=== PATIENT | female | born 1975 ===

== ENCOUNTER → 2020-03-06 08:34 | Outpatient (BNVA) | payer MEDICARE, SELFPAY | PROVIDERS: PCP Internal Medicine; Visit Provider Anesthesiology | DX: M46.1 Sacroiliitis, not elsewhere classified (principal); M51.36 Other intervertebral disc degeneration, lumbar region; M47.27 Other spondylosis with radiculopathy, lumbosacral region; E66.01 Morbid (severe) obesity due to excess calories; R10.9 Unspecified abdominal pain; R10.2 Pelvic and perineal pain; G89.4 Chronic pain syndrome | CPT/HCPCS: 99202 ==

== ENCOUNTER → 2020-05-19 16:01 | Outpatient (BNVA) | payer MEDICARE, SELFPAY | PROVIDERS: PCP Internal Medicine; Visit Provider Anesthesiology | DX: M46.1 Sacroiliitis, not elsewhere classified (principal); M51.36 Other intervertebral disc degeneration, lumbar region; M47.27 Other spondylosis with radiculopathy, lumbosacral region; E66.01 Morbid (severe) obesity due to excess calories; R10.9 Unspecified abdominal pain; R10.2 Pelvic and perineal pain; G89.4 Chronic pain syndrome | CPT/HCPCS: 99212 ==

== ENCOUNTER → 2020-06-12 09:41 | Outpatient (BNVA) | payer MEDICARE, SELFPAY | PROVIDERS: PCP Internal Medicine; Visit Provider Anesthesiology | DX: G89.4 Chronic pain syndrome (principal); R10.2 Pelvic and perineal pain; R10.9 Unspecified abdominal pain; E66.01 Morbid (severe) obesity due to excess calories; M47.27 Other spondylosis with radiculopathy, lumbosacral region; M51.36 Other intervertebral disc degeneration, lumbar region; M46.1 Sacroiliitis, not elsewhere classified | CPT/HCPCS: 99212 ==

== ENCOUNTER → 2020-06-26 09:31 | Outpatient (BNVA) | payer MEDICARE, SELFPAY | PROVIDERS: PCP Internal Medicine; Visit Provider Anesthesiology | DX: G89.4 Chronic pain syndrome (principal); R10.2 Pelvic and perineal pain; G89.29 Other chronic pain; R10.9 Unspecified abdominal pain; E66.01 Morbid (severe) obesity due to excess calories; M47.27 Other spondylosis with radiculopathy, lumbosacral region; M51.36 Other intervertebral disc degeneration, lumbar region; M46.1 Sacroiliitis, not elsewhere classified | CPT/HCPCS: 99212 ==

== ENCOUNTER 2022-02-16 20:31 | Outpatient (REF) | payer MEDICARE, SELFPAY ==
[2022-02-16 20:40] LABS: MANUAL DIFF FLAG NO
[2022-02-16 20:49] LABS: Basophils Percent Auto 0.5 % (0-2); Eosinophils Absolute Auto 0.2 X10*3/uL (0.0-0.4); Eosinophils Percent Auto 2.7 % (0-4); Hematocrit 35.4 % (37.0-47.0); Hemoglobin 11.7 g/dl (12.0-16.0); Imm Gran Abs Auto 0.03 X10*3/uL (0.00-0.03); Imm Gran Pct Auto 0.4 % (0.0-0.4); Lymphocytes Absolute Auto 2.8 X10*3/uL (1.2-4.9); Lymphocytes Percent Auto 37.6 % (20-40); Mean Corpuscular HGB Conc 33.1 g/dl (31.0-35.0); Mean Corpuscular Hemoglobin 27.3 pg (27.0-33.0); Mean Corpuscular Volume 82.5 fL (80.0-98.0); Mean Platelet Volume 10.1 fL (9.4-12.3); Monocytes Absolute Auto 0.5 X10*3/uL (0.1-1.2); Monocytes Percent Auto 6.3 % (2-11); Neutrophils Absolute Auto 3.9 x10*3/uL (2.0-8.3); Neutrophils Percent Auto 52.5 % (45-73); Platelet Count 355 X10*3/uL (160-400); Red Blood Count 4.29 X10*6/uL (4.20-5.50); Red Cell Distribution Width 12.2 % (11.0-16.0); White Blood Count 7.4 X10*3/uL (4.8-10.8)
[2022-02-16 21:58] LABS: Alanine Aminotransferase 13 U/L (0-31); Albumin Level 4.1 g/dL (3.5-5.0); Alkaline Phosphatase 102 U/L (39-117); Anion Gap 18 (12-20); Aspartate Amino Transferase 18 U/L (5-31); Bilirubin Total 0.6 mg/dL (0.0-1.0); Blood Urea Nitrogen 16 mg/dL (9-16); Calcium 9.4 mg/dL (8.4-10.2); Carbon Dioxide 24 mmol/L (22-29); Chloride 97 mmol/L (96-108); Estimated Glomerular Filt Rate > 60; Glucose Random 170 mg/dL (60-115); Magnesium 1.4 mg/dL (1.6-2.6); Phosphorus 4.7 mg/dL (2.7-4.5); Sodium 135 mmol/L (135-145); Total Protein 7.5 g/dL (6.5-8.0); Triglycerides 360 mg/dL
== END 2022-02-16 20:32 | disposition home or self-care (01) ==
LOC: HO.LNP 20:31
PROVIDERS: Visit Provider Internal Medicine
DX: K56.609 Unspecified intestinal obstruction, unspecified as to partial versus complete obstruction (principal); E11.9 Type 2 diabetes mellitus without complications
CPT/HCPCS: 80053; 83735; 84100; 84478; 85025

== ENCOUNTER 2022-08-30 16:18 | Emergency (ER) | payer MEDICARE, SELFPAY ==
--- NOTE | ~2022-08-30 | CT_ITS ---
EXAMINATION: CT ABDOMEN AND PELVIS WITHOUT CONTRAST CLINICAL INFORMATION: Right flank pain COMPARISON: CT abdomen and pelvis without contrast 09/08/2013 TECHNIQUE: Multidetector volumetric imaging was performed from the superior aspect of the liver through the pubic symphysis. Sagittal and coronal reformatted images were obtained on the technologist's workstation. This CT examination was performed using dose optimization techniques as appropriate, variously including the following: *Automated exposure control *Adjustment of mA and/or kV according to patient size (this includes techniques or standardized protocols for targeted exams where dose is matched to indication/reason for exam; i.e. extremities or head) *Use of iterative reconstruction technique DLP: 9080 mGy-cm FINDINGS: LUNG BASES: There is mild atelectatic changes right lung base. Heart size is normal. A LIVER, GALLBLADDER, AND BILIARY TREE: The liver is normal in size, shape, and attenuation. No focal hepatic lesion or biliary ductal dilatation is present. The gallbladder has been surgically removed. PANCREAS: Unremarkable. SPLEEN: Unremarkable. ADRENAL GLANDS: Unremarkable. KIDNEYS AND URETERS: The kidneys are normal in size, shape, and attenuation. No hydronephrosis, hydroureter, or calculi seen. No perinephric stranding. There is 2 mm radiopaque calculi suspected in the right proximal ureter, new since 09/08/2013. It is best visualized on axial image 56/3. There are adjacent vascular calcifications or phleboliths which are stable to previous study. BLADDER: Unremarkable. GASTROINTESTINAL TRACT: There is scattered stool and gas seen in the colon without distention. The small bowel loops are normal caliber. Postsurgical sutures are seen in the left lower pelvis likely involving sigmoid colon. No free fluid or free air seen. ABDOMINAL WALL: There is anterior abdominal wall hernia repair with mesh in place in the mid segment around the umbilicus. Dense scarring is seen in the left lower quadrant where probable colostomy was present. LYMPH NODES: No abnormal size pelvic or inguinal lymph nodes seen. VASCULAR: Unremarkable. PELVIC VISCERA: There are several small calcifications in the right adnexa. The uterus is surgically absent. No adnexal mass or free fluid seen. OSSEOUS STRUCTURES: Degenerative disc changes with vacuum disc phenomena L5/S1 disc level is noted. There is mild ventral spondylosis lower dorsal spine. CT/CT abdomen pelvis wo IV con IMPRESSION: 1. Suspect 2 mm radiopaque calculi in the right proximal ureter without hydroureteronephrosis. 2. Postsurgical changes in the left lower quadrant likely involving sigmoid colon. No obstruction seen. 3. Anterior abdominal wall hernia repair with mesh in place. Fleischner guidelines were followed.
[2022-08-30 18:24] VITALS: BP 193/101; PULSE 88; RESP 16; TEMP 36.2; O2SAT 98; BMI 51.8
--- NOTE | 2022-08-30 18:24 | ED.GENADULT ---
HPI - General Adult General Chief complaint: Abdominal Pain Stated complaint: R side flank pain, vomiting Time Seen by Provider: 08/31/22 01:33 Source: patient Mode of arrival: ambulatory Limitations: no limitations History of Present Illness HPI narrative: This is a 1-xlgs[age]lpt-female, with a hx of abdominal pain on TPN for short gut syndrome, sacroiliitis, spondylosis, with complaints of right flank pain x 3 days. Endorsing nausea, vomiting. Unable to discern urinary symptoms due to neurogenic bladder. Patient with right sided flank pain and nausea for 3 days. patient has been taking her pain medication and nausea medicine without relief. Onset (ago): day(s) Related Data Home Medications Medication Instructions Recorded Confirmed fluticasone furoate 100 1 inh inhalation DAILY 03/06/20 mcg-vilanterol 25 mcg/dose inhalation powder (Breo Ellipta) albuterol sulfate 1.25 mg/3 mL mg inhalation Q6-8H PRN 05/19/20 solution for nebulization bisacodyl 5 mg tablet,delayed 5 mg PO DAILY 05/19/20 release diphenhydramine HCl 50 mg capsule 50 mg PO BEDTIME 05/19/20 insulin aspart U-100 100 unit/mL unit subcut 05/19/20 (3 mL) subcutaneous pen insulin glargine 100 unit/mL (3 25 unit subcut BEDTIME 05/19/20 mL) subcutaneous pen lancets 28 gauge #100 ea 05/19/20 lorazepam 0.5 mg tablet 0.5 mg PO TID PRN 05/19/20 ondansetron 4 mg disintegrating 0 mg PO 05/19/20 tablet potassium chloride 8 mEq 8 meq PO DAILY 05/19/20 tablet,extended release scopolamine base 1 mg over 3 days 1 patch topical Q3D 05/19/20 transdermal patch simvastatin 40 mg tablet mg PO BEDTIME 05/19/20 Previous Rx's Medication Instructions Recorded duloxetine 20 mg capsule,delayed 20 mg PO DAILY #30 caps 03/04/20 release (Cymbalta) diclofenac sodium 1 % topical gel 2 g topical BID PRN pain #100 grams 03/06/20 Allergies Allergy/AdvReac Type Severity Reaction Status Date / Time fentanyl [FENTANYL] Allergy Severe LETHARGY Verified 08/30/22 18:24 iodine [IODINE] Allergy Severe HIVES Verified 08/30/22 18:24 latex [LATEX] Allergy Severe HIVES Verified 08/30/22 18:24 levofloxacin [From LEVAQUIN] Allergy Severe MOUTH Verified 08/30/22 18:24 SWELLING Penicillins [PENICILLINS] Allergy Severe SWELLING, Verified 08/30/22 18:24 ITCHY shellfish derived Allergy Severe SWELLING Verified 08/30/22 18:24 acetaminophen [From TYLENOL] Allergy Intermediate HIVES Verified 08/30/22 18:24 doxycycline [DOXYCYCLINE] Allergy Intermediate SWELLING Verified 08/30/22 18:24 nicotine [NICOTINE] Allergy Intermediate SWELLING Verified 08/30/22 18:24 pregabalin [From LYRICA] Allergy Intermediate LETHARGY, Verified 08/30/22 18:24 LOW BP, SWELLING amoxicillin Allergy Unknown unknown Verified 08/30/22 18:24 ceftriaxone Allergy Unknown unknown Verified 08/30/22 18:24 clarithromycin Allergy Unknown unknown Verified 08/30/22 18:24 [Omeclamox-Juan A] esomeprazole [Nexium] Allergy Unknown unknown Verified 08/30/22 18:24 famotidine [FAMOTIDINE] Allergy Unknown UNKNOWN, Verified 08/30/22 18:24 anaphylaxis Iodinated Contrast Media Allergy Unknown UNKNOWN Verified 08/30/22 18:24 [IV DYE, IODINE CONTAINING CONTRAST ] metoclopramide [Reglan] Allergy Unknown unknown Verified 08/30/22 18:24 morphine [MORPHINE] Allergy Unknown ANGIOEDEMA Verified 08/30/22 18:24 omeprazole [Omeclamox-Juan A] Allergy Unknown unknown Verified 08/30/22 18:24 ondansetron [Zofran] Allergy Unknown unknown Verified 08/30/22 18:24 penicillin V Allergy Unknown unknown Verified 08/30/22 18:24 From BUSPAR Allergy Intermediate RASH Uncoded 08/30/22 18:24 From ZOFRAN Allergy Intermediate HIVES Uncoded 08/30/22 18:24 Compazine Allergy Unknown unknown Uncoded 08/30/22 18:24 From Nexium Allergy Unknown UNKNOWN Uncoded 08/30/22 18:24 IV contrast dye Allergy Unknown unknown Uncoded 08/30/22 18:24 latex Allergy Unknown unknown Uncoded 08/30/22 18:24 From COMPAZINE AdvReac Intermediate ANXIETY Uncoded 08/30/22 18:24 From REGLAN AdvReac Intermediate ANXIETY Uncoded 08/30/22 18:24 Review of Systems Review of Systems: Yes all other systems are reviewed and are negative [facility] Past Medical History Medical History Chronic abdominal pain Chronic pain syndrome Chronic pelvic pain in female Disc degeneration, lumbar Morbid obesity Sacroiliitis Spondylosis of lumbosacral spine with radiculopathy Social History Social History Advance Directives: No Advance Directives Information Provided: Yes Physical Exam ED Vital Signs: Vital Signs - 24 hr 08/30/22 18:24 08/31/22 02:39 Temperature 97.2 F 97.6 F Pulse Rate 88 88 Respiratory Rate 16 18 Blood Pressure 193/101 H 171/94 H Pulse Oximetry 98 99 Oxygen Delivery Method Room Air Room Air BMI result Body Mass Index 51.8 Const Other: obese female rocking in bed Nutritional Appearance: obese Orientation/consciousness: oriented to person and patient oriented x3 Limitations: no limitations HENMT Head: Yes normal to inspection Ears: external ears normal General nose exam: Normal external nose present Mouth: Normal oral and palatal mucosa present and oropharynx normal Throat: Yes posterior oropharynx normal Eyes General: appearance normal, both eyes and all related structures Neck Neck: Yes normal visual inspection Chest Other: Port in place in left chest Resp Auscultation: clear to auscultation bilaterally Cardio Jugular venous distension: no JVD Rate: regular rate Rhythm: regular rhythm Heart sounds: S1 normal heart sound present and S2 normal heart sound present GI Inspection: Yes normal to inspection Palpation (GI): Soft to palpation, nontender and No hepatosplenomegaly present Auscultation: normal bowel sounds General: Yes no CVA tenderness Back/Spine/Pelvis Back: no CVA tenderness Skin General skin exam: no rashes or lesions noted Neuro General: oriented to person and patient oriented x3 Cranial nerves: Yes CN's II-XII intact bilaterally Motor exam (neuro): 5/5 motor strength present throughout Extrem General: Yes normal to inspection Psych Appearance: grossly normal Course Course Course Narrative: This is an RME: Additional HPI, ROS, PE not included below will be deferred to primary provider. This is a 19-vyfr-gtq-female, with a hx of abdominal pain on TPN for short gut syndrome, sacroiliitis, spondylosis, with complaints of right flank pain x 3 days. Endorsing nausea, vomiting. Unable to discern urinary symptoms due to neurogenic bladder. Plan: Labs, UA, CT abd & pelvis Reevaluation(s) Reevaluation #1: patient with no UTI, no hydro, there is a suggestion of a small stone on the right but there is no definitive hydronephrosis, hypomagnesemia treated Time: 03:13 Medications Administered Generic Name Dose Route Start Last Admin Trade Name Freq PRN Reason Stop Dose Admin Magnesium Sulfate 2 gm in 50 mls @ 25 mls/hr 08/31/22 01:45 08/31/22 02:43 Magnesium Sulfate/H2o IV 08/31/22 03:44 25 mls/hr ONCE ONE Administration Discontinued Medications Generic Name Dose Route Start Last Admin Trade Name Freq PRN Reason Stop Dose Admin Diphenhydramine HCl 25 mg 08/31/22 01:45 08/31/22 02:43 Diphenhydramine Hcl 50 Mg/Ml Vial IVPUSH 08/31/22 01:46 25 mg ONCE ONE Administration Hydromorphone HCl 2 mg 08/31/22 01:45 08/31/22 02:42 Hydromorphone Hcl 2 Mg/Ml Vial IVPUSH 08/31/22 01:46 2 mg ONCE ONE Administration Protocol Ondansetron HCl 4 mg 08/31/22 01:45 08/31/22 02:42 Ondansetron Hcl 4 Mg/2 Ml Vial IVPUSH 08/31/22 01:46 4 mg ONCE ONE Administration Medical Decision Making Differential Diagnosis Differential Diagnoses: The differential diagnosis associated with the presentation includes (renal colic, UTI, pyelonephritis were all considered) Admission/Observation Consideration of admission/observation: Escalation of care including admission/observation considered (Upon arrival this patient with right flank pain was considered for admission) Lab Data MDM Lab Attestation statement: I reviewed the patient's lab results. (no elevation of WBC, slight RBCs in urine, normal LFTs) 08/31/22 00:45 08/31/22 00:45 Labs: Lab Results 08/30/22 08/31/22 08/31/22 Range/Units 19:21 00:45 00:45 WBC 5.6 (4.8-10.8) X10*3/uL RBC 4.86 (4.20-5.50) X10*6/uL Hgb 12.3 (12.0-16.0) g/dl Hct 37.8 (37.0-47.0) % MCV 77.8 L (80.0-98.0) fL MCH 25.3 L (27.0-33.0) pg MCHC 32.5 (31.0-35.0) g/dl RDW 14.2 (11.0-16.0) % Plt Count 335 (160-400) X10*3/uL MPV 9.5 (9.4-12.3) fL Immature Gran % (Auto) 0.4 (0.0-0.4) % Neut % (Auto) 50.5 (45-73) % Lymph % (Auto) 37.6 (20-40) % [place] % (Auto) 6.7 (2-11) % Eos % (Auto) 4.3 H (0-4) % Baso % (Auto) 0.5 (0-2) % Lymph # (Auto) 2.1 (1.2-4.9) X10*3/uL [place] # (Auto) 0.4 (0.1-1.2) X10*3/uL Eos # (Auto) 0.2 (0.0-0.4) X10*3/uL Baso # (Auto) 0.0 (0.0-0.2) X10*3/uL Abs Immat Gran (auto) 0.02 (0.00-0.03) X10*3/uL Absolute Neuts (auto) 2.8 (2.0-8.3) x10*3/uL Absolute Nucleated RBC 0.000 (0.0-0.012) X10*3/uL Nucleated RBC % (auto) 0.0 (0.0-0.2) /100WBC Sodium 135 (135-145) mmol/L Potassium 3.7 (3.3-5.1) mmol/L Chloride 99 (96-108) mmol/L Carbon Dioxide 26 (22-29) mmol/L Anion Gap 14 (12-20) BUN 10 (9-16) mg/dL Creatinine 0.76 (0.5-1.4) mg/dL Estim Creat Clear Calc 112.0 Estimated GFR > 60 Random Glucose 265 H (60-115) mg/dL Calcium 10.1 D (8.4-10.2) mg/dL Magnesium 1.3 L* (1.6-2.6) mg/dL Total Bilirubin 0.8 (0.0-1.0) mg/dL Direct Bilirubin 0.2 (0.0-0.5) mg/dL AST 15 (5-31) U/L ALT 13 (0-31) U/L Alkaline Phosphatase 113 (39-117) U/L Total Protein 7.6 (6.5-8.0) g/dL Albumin 4.0 (3.5-5.0) g/dL Lipase 10 (8-78) U/L Urine Color Yellow Urine Appearance Clear Urine pH 6.0 (5.0-9.0) Ur Specific [place] 1.025 (1.005-1.025) Urine Protein Negative (Neg-Trace) mg/dL Urine Glucose (UA) >=1000 H (Negative) mg/dL Urine Ketones Negative (Negative) mg/dL Urine Blood Negative (Negative) Urine Nitrite Negative (Negative) Ur Leukocyte Esterase Negative (Negative) Urine RBC 6-10 H (0-2) /HPF Urine WBC 0-5 (0-5) /HPF Ur Squamous Epith Cells 6-10 (0-2) /HPF Urine Bacteria 1+ (None Seen) Hyaline Casts 0-2 (0-2) /LPF Urine Yeast Present Independent Interpretation I performed an independent interpretation of an: CT Scan (no hydronephrosis seen, cholecystecytomy) Radiology Impression Discussion of test interpretation with radiology: I have reviewed the radiologist's reading. (liver cyst, renal cyst and a question of right stone) External Record Review External record reviewed: Outpatient record Prescription Management I considered prescription management with: Pain Medication (narcotic pain medication was considered but the patient has narcotics at home) and Antibiotic (antibiotics was considered but the patient had no evidence of UTI or pyelonephritis) Chronic Conditions Patient?s care impacted by: Other (mulitple illnesses) Discharge Plan Discharge Clinical Impression: Chronic abdominal pain, Chronic pain syndrome, Renal colic, Hypomagnesemia Patient Disposition: Home, Self-Care Instructions: Renal Colic (ED), Chronic Pain (ED) Additional Instructions: continue taking your pain medication as instructed Prescriptions: No Action duloxetine [Cymbalta] 20 mg capsule,delayed release(DR/EC) 20 mg PO DAILY Qty: 30 4RF diclofenac sodium 1 % gel 2 g topical BID PRN (Reason: pain) Qty: 100 3RF Referrals: Chaparrita Pizano DO [Primary Care Provider] - 3 days
--- NOTE | 2022-08-30 19:27 | MHC.EDTECH ---
PATIENT URINE SAMPLE COLLECTED AND SENT TO LAB ,PATIENT WANTS HER LABS TO BE DRAWN FROM HER PORT .
[2022-08-30 19:44] LABS: Appearance Urine Clear; Color Urine Yellow; Glucose Urine UA >=1000 mg/dL (Negative); Leukocyte Esterase Urine Negative (Negative); Nitrite Urine Negative (Negative); Specific Gravity - Urine 1.025 (1.005-1.025); UMIC TRIGGER UACC YES; Urine Blood Negative (Negative); Urine Ketones Negative (Negative); Urine Protein Negative (Neg-Trace)
[2022-08-30 19:58] LABS: Bacteria Urine 1+ (None Seen); Hyaline Casts Urine 0-2 /LPF (0-2); WBC Urine 0-5 /HPF (0-5)
--- OUTSIDE RECORDS SUMMARY | 2022-08-31 00:55 | XMS_ITS | Continuity of Care Document ---
Author Name Unknown Organization [facility] ter Address [address] [place] [id number]- Care Team Providers Care Chemical Worker Name Role Phone Jerica DOChaparrita Primary Care Physician ( [phone] Encounter [facility] [place]s): 07/25/20 - 08/01/[address] [address]- Discharge Disposition: A-Transfer VNA/Home Health Attending Physician: Rach SHERIFF, Bety Galvez Admitting Physician: Alberto Austin MD Referring Physician: Not on Staff, Referring MD Allergies, Adverse Reactions, Alerts Substance Reaction Severity Status doxycycline mouth swelling Active ceftriaxone hives Active penicillin throat swelling Rash Persistent Severe Active famotidine vomiting Active morphine 1, 2, 3 hives Active iodine topical swelling itching Active Zofran 4 can only be given w/ benadryl hives Active Pepcid vomitng Active Levaquin tingling in mouth, rash Acti ve Compazine shortness of breath Active Tylenol hives Active Reglan severe restless legs Active Adhesive Bandage skin excoriation hives Active Contrast Dye hives itchy throat itchy Persistent Mild Active Latex vag rash Active Seafood Anaphylactic shock d ue to adverse food reaction Severe Active Nexium diarrhea, vomitting Active Nicotine Patch ana cardia Active Lyrica Angioedema Active Lantiseptic Skin Protectant Active 1plizzie SHERIFF, tolerates with diphenhydramine 2Tolerates hydromorphone 3Tolerates Oxycontin (oxycodone extended release) as part of home regimen as shared during June 2014 admission. 4patient tolerated zofran on 05/25/2013 Immunizations Given and Recorded Vaccine Date Status Refusal Reason influenza virus vaccine, inactivated 11/11/17 Give n influenza virus vaccine, inactivated 03/09/15 Give n influenza virus vaccine, inactivated 10/31/11 Give n tetanus/diphtheria/pertussis, acel(Tdap) 06/10/17 Given pneumococcal 13-valent vaccine 01/20/15 Given pneumococcal 23-valent vaccine 10/31/11 Given Pneumococcal Poly (PPV23) (oldterm) 02/02/07 Given Influenza Virus Vaccine (oldterm) 1 02/02/07 Given 1Admin Note: manufactured by [employer] Medications albuterol 0.042% inhalation solution 3 mL = 1.25 mg, Neb, 4 times a day, PRN Wheezing/Shortness of Breath Start Date: 04/04/20 Status: Ordered albuterol CFC free 90 mcg/inh inhalation aerosol 2, puffs, Inhalation, 4 times a day, PRN, # 75 Gm, Refills 0, Tot. Refills 0, Maintenance, 12/02/1919:00:05 EDT, Aerosol, Print Requisition Start Date: 12/01/18 Status: Ordered bisacodyl 5 mg oral delayed release tablet 1 tablet = 5 mg, By Mouth, Daily, Maintenance, 10/04/18 16:16:38 EDT, EC Tablet Start Date: 10/04/18 Status: Ordered diclofenac 1% topical gel = 2 Gm, Topically, 2 times a day, PRN Pain Start Date: 04/04/20 Status: Ordered Dilaudid Inj 0.5 mg, Injection, IV Push Slowly, Every 4 hours, PRN for Pain , Severe, Routine, 07/25/20 22:22:00EDT Start Date: 07/25/20 Stop Date: 08/02/20 Status: Discontinued Insulin Glargine Inj 0.3 mL = 30 units, Subcutaneous Injection, Daily at bedtime, 0 Refills, Maintenance, 07/31/20 12:52:00 EDT, Injection, Partial fill upon patient request if the prescription is for a schedule II opioid drug. Start Date: 07/31/20 Status: Ordered LORazepam 0.5 mg oral tablet 1 tablet = 0.5 mg, By Mouth, Daily at bedtime, 0 Refills, Maintenance, 07/27/20 16:47:00 EDT, Tablet, Partial fill upon patient request if the prescription is for a schedule II opioid drug. Start Date: 07/27/20 Status: Ordered losartan 50 mg oral tablet 50 mg, 1, tablet, By Mouth, Daily in AM, # 30 tablet, Refills 0, Maintenance, 10/04/18 9:33:08 EDT Start Date: 10/04/18 Status: Ordered losartan 50 mg oral tablet 50 mg, Tablet, By Mouth, 08/01/20 9:00:00 EDT Start Date: 08/01/20 Stop Date: 08/01/20 Status: Completed naloxone 4 mg/0.1 mL nasal spray = 4 mg, Nares, Both, Once, # 2 each, 0 Refills, Soft Stop, 04/09/20 13:16:00 EST, [facility], Partial fill upon patient request if the prescription is for a schedule II opioid drug., 154, cm, 04/09/20 7:55:00 EST, Height, 132.9, kg, 03/17... Start Date: 04/09/20 Status: Ordered NovoLOG FlexPen 100 units/mL subcutaneous solution See Instructions, Subcutaneous Injection, Use as per sliding scale, 5 Refills, Maintenance, 12/22/18 7:07:37 EST Start Date: 12/22/18 Stop Date: 01/21/19 Status: Ordered ondansetron 4 mg oral tablet 1 tablet = 4 mg, By Mouth, Every 8 hours, PRN Nausea & Vomiting, for 14 days, # 42 tablet, 0 Refills, Acute 08/14/20 14:34:00 EDT, 07/31/20 14:34:00 EDT, Tablet, [facility], Partialfill upon patient request if the prescription is for a... Start Date: 07/31/20 Stop Date: 08/14/20 Status: Ordered ondansetron 4 mg oral tablet, disintegrating = 4 mg, By Mouth, Every 6 hours, PRN Nausea & Vomiting, # 90 tablet, 0 Refills, Maintenance, 04/02/20 9:29:00 EST, Tablet, [facility], Partial fill upon patient request if the prescription is for a schedule II opioid drug., 154.94, cm, 0... Start Date: 04/02/20 Status: Ordered oxyCODONE 10 mg oral tablet See Instructions, 1 tablet By Mouth 5 times per day for 7 days, per pain services recommedations, #35 tablet, 0 Refills, Maintenance, 06/20/20 8:49:00 EDT, Tablet, [id number], Partial fill upon patient request if the prescription is for a seema... Start Date: 06/20/20 Status: Ordered oxyCODONE 20 mg oral tablet, extended release 20 mg, 1, tablet, By Mouth, Every 12 hours, Patient has 8 tablets from before, new prescription for5 days till she goes to the pain clinic, # 10 tablet, Refills 0, Tot. Refills 0, Maintenance, 05/01/20 9:37:00 EDT, Route to Pharmacy Electronically, B... Start Date: 05/01/20 Stop Date: 05/06/20 Status: Ordered propranolol 120 mg oral capsule, extended release 1 capsule = 120 mg, By Mouth, Daily at bedtime, # 30 capsule, 5 Refills, Maintenance, 01/17/18 9:48:32 EST, CR Capsule, Increasing dose. Start Date: 01/17/18 Stop Date: 07/16/18 Status: Ordered propranolol 60 mg oral capsule, extended release 120 mg, CR Capsule, By Mouth, 07/31/20 21:00:00 EDT Start Date: 07/31/20 Stop Date: 07/31/20 Status: Completed Senna Plus 50 mg-8.6 mg oral tablet 2 tablet, By Mouth, Daily at bedtime, Maintenance, 10/04/18 16:17:29 EDT, Tablet Start Date: 10/04/18 Status: Ordered simvastatin 40 mg oral tablet 40 mg, 1, tablet, By Mouth, Daily at bedtime, # 90 tablet, Refills 1, Tot. Refills 1, Maintenance, 08/30/17 8:21:42 EDT, Route to Pharmacy Electronically, [id number], [facility] #[id number] Start Date: 08/30/17 Status: Ordered Tums 500 mg oral tablet, chewable 500 mg, 1, tablet, Chew, Every 4 hours, PRN, # 180 tablet, Refills 0, Tot. Refills 0, Maintenance, Dyspepsia, 06/21/18 11:05:15 EDT, Route to Pharmacy Electronically, [id number], [facility] Start Date: 06/21/18 Status: Ordered Vancomycin 3, mL, IV Catheter Clearance, Every 24 hours, Maintenance, 07/31/20 12:52:00 EDT Start Date: 07/31/20 Status: Ordered vancomycin 2 g/250 mL-NaCl 0.9% intravenous solution = 2 Gm, IV Infusion, Every 12 hours, until 08/08/20 please, # 17 each, 0 Refills, Acute 08/08/20 22:00:00 EDT, 07/31/20 12:54:00 EDT, Partial fill upon patient request if the prescription is for a schedule II opioid drug. Start Date: 07/31/20 Stop Date: 08/08/20 Status: Ordered Vitamin D3 2000 intl units oral capsule 1 capsule = 2,000 International_Units, By Mouth, 3 times a day, 0 Refills, Maintenance, 02/22/18 7:05:50 EST Start Date: 02/22/18 Status: Ordered Problem List Condition Effective Dates Status Health Status Inform ant Abdominal pain(Confirmed) Active Trigger point of abdomen(Confirmed) Active Abscess(Confirmed) Active ADJUSTMENT REACTION WITH PRO LONGED DEPRESSIVE REACTION(Confirmed) 02/03/07 Active [facility] Senior Level Patient(Confirmed) Active ASTHMA(Confirmed) 02/03/07 Active Bipolar disorder(Confirmed) Active Morbid obesity with BMI of 5 0.0-59.9, adult(Confirmed) Active Status post total hysterecto my 03/22/06, pathology was benign. 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) Active ESSENTIAL HYPERTENSION(Confirmed) Active Fibromyalgia(Confirmed) Active 7, para 5(Confirmed) Active Medically complex patient(Confirmed) Active Hyperlipidemia(Confirmed) Active Low back pain(Confirmed) Active MIGRAINE(Confirmed) 02/03/07 Active Neurogenic bladder(Confirmed) Active AURELIO (obstructive sleep apnea)(Confirmed) Active Optic neuritis, right(Confirmed) Active Partial small bowel obstruction(Confirmed) Active Pelvic mass in female(Confirmed) Active Spinal stenosis(Confirmed) Active Follow-up examination after gynecological surgery(Confirmed) Active DM (diabetes mellitus), type 2, uncontrolled(Confirmed) Active Results Orders for Microbiology Reports Name Date Blood Culture 07/28/20 Blood Culture #2 07/28/20 Blood Culture 07/27/20 Blood Culture #2 07/27/20 Blood Culture 07/26/20 Blood Culture 07/25/20 Blood Culture #2 07/25/20 Microbiology Reports TEST:Blood Culture STATUS:Unauthenticated BODY SITE: SOURCE:Blood COLLECTED DATE/TIME:07/28/20 3:18 AM Blood Culture SPECIMEN DESCRIPTION : BLOOD PORT SPECIAL REQUESTS : NONE CULTURE : NO GROWTH 4 DAYS REPORT STATUS : PRELIMINARY REPORT TEST:Blood Culture, Second Order STATUS:Unauthenticated BODY SITE: SOURCE:Blood COLLECTED DATE/TIME:07/28/20 3:13 AM Blood Culture, Second Order SPECIMEN DESCRIPTION : BLOOD NO SITE SPECIAL REQUESTS : NONE CULTURE : NO GROWTH 4 DAYS REPORT STATUS : PRELIMINARY REPORT TEST:Blood Culture, Second Order STATUS:Auth (Verified) BODY SITE: SOURCE:Blood COLLECTED DATE/TIME:07/27/20 4:45 PM Blood Culture, Second Order SPECIMEN DESCRIPTION : BLOOD NO SITE SPECIAL REQUESTS : NONE CULTURE : NO GROWTH 5 DAYS. REPORT STATUS : FINAL 08/01/2020 TEST:Blood Culture STATUS:Auth (Verified) BODY SITE: SOURCE:Blood COLLECTED DATE/TIME:07/27/20 3:06 PM Blood Culture SPECIMEN DESCRIPTION : BLOOD LT ARM SPECIAL REQUESTS : NONE CULTURE : NO GROWTH 5 DAYS. REPORT STATUS : FINAL 08/01/2020 TEST:Blood Culture STATUS:Auth (Verified) BODY SITE: SOURCE:Blood COLLECTED DATE/TIME:07/26/20 11:40 AM Blood Culture SPECIMEN DESCRIPTION : BLOOD SPECIAL REQUESTS : NONE CULTURE : NO GROWTH 5 DAYS. REPORT STATUS : FINAL 07/31/2020 TEST:Blood Culture, Second Order STATUS:Auth (Verified) BODY SITE: SOURCE:Blood COLLECTED DATE/TIME:07/25/20 9:52 PM Blood Culture, Second Order SPECIMEN DESCRIPTION : BLOOD NO SITE SPECIAL REQUESTS : CRITICAL VALUE CALLED AND VERIFIED BY READBACK FOR: GRAM POSITIVE COCCI TO , [id number], 07/26/20, 23:28, 1971 CULTURE : STAPH. SPECIES, NOT STAPH. AUREUS Single isolates of Staph. species, not Staph. aureus, Micrococci, Bacillus species, Diphtheroids, Cutibacterium acnes (formerly Propionibacterium acnes) and Viridans Group Streptococci could be skin contaminants. Multiple isolates of these organisms are more likely to be significant. REPORT STATUS : FINAL 07/29/2020 ORGANISM STAPH. SPECIES, NOT STAPH. AUREUS Single isolates of Staph. species, not Staph. aureus, Micrococci, Bacillus species, Diphtheroids, Cutibacterium acnes (formerly Propionibacterium acnes) and Viridans Group Streptococci could be skin contaminants. Multiple isolates of these organisms are more likely to be significant. METHOD MIN. INHIB. CONC. (MCG/ML) CIPROFLOXACIN SUSCEPTIBLE ERYTHROMYCIN RESISTANT LEVOFLOXACIN SUSCEPTIBLE RIFAMPIN SUSCEPTIBLE TRIMETH/SULFAMETHOX SUSCEPTIBLE VANCOMYCIN SUSCEPTIBLE TEST:Blood Culture STATUS:Auth (Verified) BODY SITE: SOURCE:Blood COLLECTED DATE/TIME:07/25/20 7:05 PM Blood Culture SPECIMEN DESCRIPTION : BLOOD PORT SPECIAL REQUESTS : CRITICAL VALUE CALLED AND VERIFIED BY READBACK FOR: GRAM POSITIVE COCCI TO [id number], S2, 07/26/20 0323, BY TECH [id number] CULTURE : STAPH. SPECIES, NOT STAPH. AUREUS 1 Single isolates of Staph. species, not Staph. aureus, Micrococci, Bacillus species, Diphtheroids, Cutibacterium acnes (formerly Propionibacterium acnes) and Viridans Group Streptococci could be skin contaminants. Multiple isolates of these organisms are more likely to be significant. STAPH. SPECIES, NOT STAPH. AUREUS 2 Single isolates of Staph. species, not Staph. aureus, Micrococci, Bacillus species, Diphtheroids, Cutibacterium acnes (formerly Propionibacterium acnes) and Viridans Group Streptococci could be skin contaminants. Multiple isolates of these organisms are more likely to be significant. Staphylococcus species (not S. aureus) was identified by multi-plex PCR REPORT STATUS : FINAL 07/28/2020 ORGANISM STAPH. SPECIES, NOT STAPH. AUREUS 1 Single isolates of Staph. species, not Staph. aureus, Micrococci, Bacillus species, Diphtheroids, Cutibacterium acnes (formerly Propionibacterium acnes) and Viridans Group Streptococci could be skin contaminants. Multiple isolates of these organisms are more likely to be significant. METHOD MIN. INHIB. CONC. (MCG/ML) CIPROFLOXACIN SUSCEPTIBLE ERYTHROMYCIN RESISTANT LEVOFLOXACIN SUSCEPTIBLE RIFAMPIN SUSCEPTIBLE TRIMETH/SULFAMETHOX SUSCEPTIBLE VANCOMYCIN SUSCEPTIBLE ORGANISM STAPH. SPECIES, NOT STAPH. AUREUS 2 Single isolates of Staph. species, not Staph. aureus, Micrococci, Bacillus species, Diphtheroids, Cutibacterium acnes (formerly Propionibacterium acnes) and Viridans Group Streptococci could be skin contaminants. Multiple isolates of these organisms are more likely to be significant. METHOD MIN. INHIB. CONC. (MCG/ML) CIPROFLOXACIN SUSCEPTIBLE ERYTHROMYCIN RESISTANT LEVOFLOXACIN SUSCEPTIBLE RIFAMPIN SUSCEPTIBLE TRIMETH/SULFAMETHOX SUSCEPTIBLE VANCOMYCIN SUSCEPTIBLE Radiology Reports * Exam Date Time Procedure Performing Provider Status 07/31/20 8:36 AM Chest Portable Josef Vines; Auth (Verified) Notes: (Chest Portable) Reason For Exam: port position;Line Placement RESULT: Chest Portable Chest Portable Reason: Line Placement; port position; Clinical Question(s): Line Placement COMPARISON: 07/25/2020 chest radiograph. FINDINGS: LINES AND TUBES: Right internal jugular Port-A-Cath terminates at the lower SVC. LUNGS AND PLEURA: Clear lungs. Normal pulmonary vascularity. No pleural effusion. No pneumothorax. HEART, MEDIASTINUM AND LISA: Heart is normal in size. Normal upper mediastinal and hilar contour. BONES AND SOFT TISSUES: No acute abnormality. IMPRESSION: Right internal jugular Port-A-Cath terminates at the lower SVC. No pneumothorax. WSN: [id number] Ordering Physician: Wilman Corea Dictated By: Austen Soliz MD Dictated Date/Time: 07/31/20 12:23 p Reviewed By: Austen Soliz MD Signed By: Austen Soliz MD Signed Date/Time: 07/31/20 12:23 pm Transcribed By: DEIDRE Transcribed Date/Time: 07/31/20 12:22 pm * Exam Date Time Procedure Performing Provider Status 07/25/20 7:35 PM Chest Portable Dk Fung; Auth (Verified) Notes: (Chest Portable) Reason For Exam: Fever RESULT: Chest Portable Examination: Portable chest performed on 07/25/2020. History: Fever. Altered mental status. Findings: A frontal view of the chest is compared to a prior study dated 04/23/2020. Right approach PICC line and right Port-A-Cath are unchanged in position. The cardiac silhouette is within normal limits for size. The lungs are clear. Osteophyte formation within the thoracic spine is seen. IMPRESSION: There is no acute cardiopulmonary disease. WSN: [id number] Ordering Physician: Audrey Garcia Dictated By: Radha Wheatley MD Dictated Date/Time: 07/25/20 7:38 pm Reviewed By: Radha Wheatley MD Signed By: Radha Wheatley MD Signed Date/Time: 07/25/20 7:38 pm Transcribed By: DEIDRE Transcribed Date/Time: 07/25/20 7:37 pm Vital Signs Most recent to oldest [Reference Range]: 1 2 3 Height 156 cm (08/01/20 5:59 AM) 156 cm (07/31/20 11:00 PM) 156 cm (07/31/20 5:28 AM) Weight 134.6 kg (07/26/20 3:28 AM) Oxygen Saturation [94-100 %] 100 % (08/01/20 5:59 AM) 97 % (07/31/20 11:00 PM) 100 % (07/31/20 3:00 PM) Pulse Rate [55-90 bpm] 72 bpm (08/01/20 5:59 AM) 73 bpm (07/31/20 11:00 PM) 86 bpm (07/31/20 9:28 PM) Body Mass Index [18.5-24.99] 55.31 *>HHI* (07/26/20 3:28 AM) Blood Pressure [90-138/55-84 mm Hg] 140/72mm Hg *H* (08/01/20 9:26 AM) 106/59mm Hg (08/01/20 5:59 AM) 119/56mm Hg (07/31/20 11:00 PM) Respiratory Rate [16-30 br/min] 18 br/min (08/01/20 2:21 PM) 18 br/min (08/01/20 1:37 PM) 18 br/min (08/01/20 10:46 AM) Temperature [96.8-100.4 DegF] 97.7 DegF (08/01/20 5:59 AM) 97.7 DegF (07/31/20 11:00 PM) 98.4 DegF (07/31/20 3:00 PM) Mode of Delivery (Oxygen) Room air (08/01/20 5:59 AM) Room air (07/31/20 11:00 PM) Room air (07/31/20 3:00 PM) Blood pressure sites Arm, left (08/01/20 5:59 AM) Arm, left (07/31/20 11:00 PM) Arm, left (07/31/20 3:00 PM) Temperature Route Oral (08/01/20 5:59 AM) Oral (07/31/20 11:00 PM) Oral (07/31/20 3:00 PM) Weight Obtained Via Bed scale (07/26/20 3:28 AM) Social History Social History Type Response Smoking Status Former smoker; Other : quit 04/2015; entered on: 01/30/16 Sex Female
--- OUTSIDE RECORDS SUMMARY | 2022-08-31 00:55 | XMS_ITS | Continuity of Care Document ---
Author Name Unknown Organization [facility] ter Address [address] [place] [address]- Care Team Providers Care Open Soaper Tender Name Role Phone Chaparrita Pizano DO Primary Care Physician Encounter [facility] [place] Date(s): 04/17/21 - 10/05/[address] [address]- Attending Physician: Donald Murphy MD Admitting Physician: Donald Murphy MD Referring Physician: Donald Murphy MD Allergies, Adverse Reactions, Alerts Substance Reaction Severity Status doxycycline mouth swelling Active ceftriaxone hives Active iodine topical swelling itching Active Pepcid vomitng Active penicillin throat swelling Rash Persistent Severe Active famotidine vomiting Active morphine 1, 2, 3 hives Active melatonin Active Zofran 4 can only be given w/ benadryl hives Active Compazine shortness of breath Active Adhesive Bandage skin excoriation hives Active Seafood Anaphylactic shock d ue to adverse food reaction Severe Active Levaquin tingling in mouth, rash Acti ve Tylenol hives Active Reglan severe restless legs Active Contrast Dye hives itchy throat itchy Persistent Mild Active Latex vag rash Active Nexium diarrhea, vomitting Active Lyrica Angioedema Active Lantiseptic Skin Protectant Active Nicotine Patch ana cardia Active darrick SHERIFF, tolerates with diphenhydramine 2Tolerates hydromorphone 3Tolerates Oxycontin (oxycodone extended release) as part of home regimen as shared during June 2014 admission. 4patient tolerated zofran on 05/25/2013 Immunizations Given and Recorded Vaccine Date Status Refusal Reason influenza virus vaccine, inactivated 02/05/21 Give n influenza virus vaccine, inactivated 12/31/19 David rded influenza virus vaccine, inactivated 11/11/17 Give n influenza virus vaccine, inactivated 03/09/15 Give n influenza virus vaccine, inactivated 10/31/11 Give n SARS-CoV-2 (COVID-19) Ad26 vaccine 1 08/06/20 Give n tetanus/diphtheria/pertussis, acel(Tdap) 06/10/17 Given pneumococcal 13-valent vaccine 01/20/15 Given pneumococcal 23-valent vaccine 10/31/11 Given Pneumococcal Poly (PPV23) (oldterm) 02/02/07 Given Influenza Virus Vaccine (oldterm) 2 02/02/07 Given 1Result Comment: Patient verbally consented to receive vaccine 2Admin Note: manufactured by [employer] Medications albuterol 0.042% inhalation solution 3 mL = 1.25 mg, Neb, 4 times a day, PRN Wheezing/Shortness of Breath Start Date: 04/04/20 Status: Ordered albuterol CFC free 90 mcg/inh inhalation aerosol 2, puffs, Inhalation, 4 times a day, PRN, # 75 Gm, Refills 0, Tot. Refills 0, Maintenance, 12/02/1919:00:05 EDT, Aerosol, Print Requisition Start Date: 12/01/18 Status: Ordered Banophen 50 mg oral capsule 1 capsule = 50 mg, By Mouth, 4 times a day, PRN as needed for itching, 0 Refills, Maintenance, 08/04/20 2:25:00 EDT, Partial fill upon patient request if the prescription is for a schedule II opioid drug. Start Date: 08/04/20 Status: Ordered bisacodyl 5 mg oral delayed release tablet 1 tablet = 5 mg, By Mouth, Daily, Maintenance, 10/04/18 16:16:38 EDT, EC Tablet Start Date: 10/04/18 Status: Ordered Carafate 1 gm oral tablet 1 Gm, 1, tablet, By Mouth, 3 times a day before meals and bedtime, # 120 tablet, Refills 0, Tot. Refills 0, Maintenance, 09/08/21 13:21:00 EDT, Route to Pharmacy Electronically, [facility], Partial fill upon patient request if the prescr... Start Date: 09/08/21 Stop Date: 10/08/21 Status: Ordered Insulin Glargine Inj = 20 units, Subcutaneous Injection, 2 times a day, 0 Refills, Maintenance, 02/05/21 11:49:00 EST, Injection, Partial fill upon patient request if the prescription is for a schedule II opioid drug. Start Date: 02/05/21 Status: Ordered lactulose 10 gm/15 ml oral syrup 30 mL = 20 Gm, By Mouth, 3 times a day, # 480 mL, 1 Refills, Acute 08/31/22 13:22:00 EDT, 08/31/20 13:21:00 EDT, Syrup, [facility]/pharmacy #[id number], Partial fill upon patient request if the prescription is for a schedule II opioid drug., 30 mL By Mouth 3 times... Start Date: 08/31/20 Stop Date: 08/31/22 Status: Ordered LORazepam 0.5 mg oral tablet 1 tablet = 0.5 mg, By Mouth, Daily at bedtime, 0 Refills, Maintenance, 08/29/21 2:21:00 EDT, Tablet, Partial fill upon patient request if the prescription is for a schedule II opioid drug. Start Date: 08/29/21 Status: Ordered methocarbamol 500 mg oral tablet 2 tablet = 1,000 mg, By Mouth, 4 times a day, # 80 tablet, 0 Refills, Maintenance, 09/28/21 10:42:00 EDT, Tablet, Partial fill upon patient request if the prescription is for a schedule II opioid drug. Start Date: 09/28/21 Stop Date: 10/08/21 Status: Ordered NovoLOG FlexPen 100 units/mL subcutaneous solution See Instructions, Subcutaneous Injection, Use as per sliding scale, 5 Refills, Maintenance, 12/22/18 7:07:37 EST Start Date: 12/22/18 Stop Date: 01/21/19 Status: Ordered ondansetron 4 mg oral tablet, disintegrating = 4 mg, By Mouth, Every 6 hours, PRN Nausea & Vomiting, # 90 tablet, 0 Refills, Maintenance, 04/02/20 9:29:00 EST, Tablet, [facility], Partial fill upon patient request if the prescription is for a schedule II opioid drug., 154.94, cm, 0... Start Date: 04/02/20 Status: Ordered pantoprazole 40 mg oral delayed release tablet 1 tablet = 40 mg, By Mouth, Daily, # 30 tablet, 0 Refills, Maintenance, 09/08/21 13:53:00 EDT, EC Tablet, 155, cm, 09/08/21 11:41:00 EDT, Height, 124.5, kg, 08/29/21 18:10:00 EDT, Dry Weight Start Date: 09/08/21 Stop Date: 10/08/21 Status: Ordered potassium chloride 8 mEq (600 mg) oral capsule, extended release 1 capsule = 8 mEq, By Mouth, Daily, # 120 capsule, 0 Refills, Maintenance, 06/02/21 15:57:00 EDT, CR Capsule, Partial fill upon patient request if the prescription is for a schedule II opioid drug. Start Date: 06/02/21 Status: Ordered propranolol 120 mg oral capsule, extended release 1 capsule = 120 mg, By Mouth, Daily at bedtime, # 30 capsule, 5 Refills, Maintenance, 01/17/18 9:48:32 EST, CR Capsule, Increasing dose. Start Date: 01/17/18 Stop Date: 07/16/18 Status: Ordered Senna Plus 50 mg-8.6 mg oral tablet 2 tablet, By Mouth, Daily at bedtime, Maintenance, 10/04/18 16:17:29 EDT, Tablet Start Date: 10/04/18 Status: Ordered simvastatin 40 mg oral tablet 40 mg, 1, tablet, By Mouth, Daily at bedtime, # 30 tablet, Refills 0, Maintenance, 09/26/21 20:14:00 EDT, Partial fill upon patient request if the prescription is for a schedule II opioid drug. Start Date: 09/26/21 Status: Ordered SUMAtriptan 50 mg oral tablet 1 tablet = 50 mg, By Mouth, Daily, PRN for migraine headache, may repeat dose after 2 hours up to amaximum of 2, # 18 tablet, 0 Refills, Maintenance, 09/08/21 13:28:00 EDT, Tablet, Partial fill uponpatient request if the prescription is for a schedu... Start Date: 09/08/21 Status: Ordered Tums 500 mg oral tablet, chewable 500 mg, 1, tablet, Chew, Every 4 hours, PRN, # 180 tablet, Refills 0, Tot. Refills 0, Maintenance, Dyspepsia, 06/21/18 11:05:15 EDT, Route to Pharmacy Electronically, [id number], [facility] Start Date: 06/21/18 Status: Ordered Vitamin D3 2000 intl units oral capsule 1 capsule = 2,000 International_Units, By Mouth, 3 times a day, 0 Refills, Maintenance, 02/22/18 7:05:50 EST Start Date: 02/22/18 Status: Ordered Problem List Condition Effective Dates Status Health Status Inform ant Abdominal pain(Confirmed) Active Trigger point of abdomen(Confirmed) Active Abscess(Confirmed) Active ADJUSTMENT REACTION WITH PRO LONGED DEPRESSIVE REACTION(Confirmed) 02/03/07 Active [facility] Emeral d Team Senior Level Patient(Confirmed) Active [...] obstruction(Confirmed) Active Pelvic mass in female(Confirmed) Active Severe obesity(Confirmed) Active Spinal stenosis(Confirmed) Active Follow-up examination after gynecological surgery(Confirmed) Active DM (diabetes mellitus), type 2, uncontrolled(Confirmed) Active Social History Social History Type Response Smoking Status Former smoker; Other : quit 04/2015; entered on: 01/30/16 Sex
--- OUTSIDE RECORDS SUMMARY | 2022-08-31 00:55 | XMS_ITS | Continuity of Care Document ---
Author Name Unknown Organization [facility] Address [address] [place] [address]- Care Team Providers Care Hand Quilter Name Role Phone JericaChaparrita apple DO Primary Care Physician ( [phone] [facility] [place] Date(s): 07/28/20 - 08/27/20 [facility] [address] [place], [place] [address] Allergies, Adverse Reactions, Alerts Substance Reaction Severity [...] Lyrica Angioedema Active Lantiseptic Skin Protectant Active 1per , tolerates with diphenhydramine 2Tolerates hydromorphone 3Tolerates Oxycontin (oxycodone extended release) as part of home regimen as shared during June 2014 admission. 4patient tolerated zofran on 05/25/2013 Immunizations Given and Recorded Vaccine Date Status Refusal Reason SARS-CoV-2 (COVID-19) Ad26 vaccine 1 08/06/20 Give n influenza virus vaccine, inactivated 12/31/19 [...] to receive vaccine 2Admin Note: manufactured by [employer] Medications albuterol 0.042% inhalation solution 3 [...] PRN Pain Start Date: 04/04/20 Status: Ordered Insulin Glargine Inj 0.3 mL = 30 [...] 9:33:08 EDT Start Date: 10/04/18 Status: Ordered naloxone 4 mg/0.1 mL nasal spray = 4 mg, Nares, Both, Once, # 2 each, 0 Refills, Soft Stop, 04/09/20 13:16:00 EST, [facility], Partial fill upon patient request if [...] 0 Refills, Maintenance, 04/02/20 9:29:00 EST, Tablet, [facility], Partial fill upon patient request if the prescription is for a schedule II opioid drug., 154.94, cm, 0... Start Date: 04/02/20 Status: Ordered oxyCODONE 10 mg oral tablet See Instructions, 1 tablet By Mouth 5 times per day for 7 days, per pain services recommedations, #35 tablet, 0 Refills, Maintenance, 06/20/20 8:49:00 EDT, Tablet, [facility]/pharmacy #[id number], Partial fill upon patient request if the [...] 08/30/17 8:21:42 EDT, Route to Pharmacy Electronically, [id number], [facility]/pharmacy #[id number] Start Date: 08/30/17 Status: Ordered Tums 500 mg oral tablet, chewable 500 mg, 1, tablet, Chew, Every 4 hours, PRN, # 180 tablet, Refills 0, Tot. Refills 0, Maintenance, Dyspepsia, 06/21/18 11:05:15 EDT, Route to Pharmacy Electronically, [id number], [facility] Start Date: 06/21/18 Status: Ordered Vancomycin 3, mL, IV Catheter Clearance, Every 24 hours, Maintenance, 07/31/20 12:52:00 EDT Start Date: 07/31/20 Status: Ordered Vitamin D3 2000 intl units oral capsule 1 capsule = 2,000 International_Units, By Mouth, 3 times a day, 0 Refills, Maintenance, 02/22/18 7:05:50 EST Start Date: 02/22/18 Status: Ordered Problem List Condition Effective Dates Status Health Status Inform ant Abdominal pain(Confirmed) Active Trigger point of abdomen(Confirmed) Active Abscess(Confirmed) Active ADJUSTMENT REACTION WITH PRO LONGED DEPRESSIVE REACTION(Confirmed) 02/03/07 Active [facility] Emeral d Team Senior Level Patient(Confirmed) [...]
--- OUTSIDE RECORDS SUMMARY | 2022-08-31 00:55 | XMS_ITS | Continuity of Care Document ---
Author Name Unknown Organization [facility] ter Address [address] [place] [id number]- Care Team Providers Care Audit Senior Associate Name Role Phone Jerica ODChaparrita Primary Care Physician Encounter [facility] [place] Date(s): 12/19/20 - 03/17/[address] [address] Attending Physician: Donald Murphy MD Admitting Physician: Donald Murphy MD Referring Physician: Donald Murphy MD Allergies, Adverse Reactions, Alerts Substance Reaction Severity Status doxycycline mouth swelling Active ceftriaxone hives Active penicillin throat swelling Rash Persistent Severe Active famotidine vomiting Active morphine 1, 2, 3 hives Active iodine topical swelling itching Active melatonin Active Zofran 4 can only [...] 02/05/21 Give n influenza virus vaccine, inactivated 11/16/20 David rded influenza virus vaccine, inactivated 11/11/17 [...] to receive vaccine 2Admin Note: manufactured by [employer] Medications albuterol 0.042% inhalation solution 3 [...] EC Tablet Start Date: 10/04/18 Status: Ordered Imitrex 50 mg oral tablet 1 tablet = 50 mg, By Mouth, Daily, PRN for migraine headache, may repeat dose after 2 hours up to amaximum of 2, # 18 tablet, 0 Refills, Acute 08/31/21 13:21:00 EDT, 08/31/20 13:21:00 EDT, Tablet, [facility]/pharmacy #[id number], Partial fill upon patient request... Start Date: 08/31/20 Stop Date: 08/31/21 Status: Ordered Insulin Glargine Inj 0.35 mL = 35 units, Subcutaneous Injection, 2 times a day, [...] 08/31/22 13:22:00 EDT, 08/31/20 13:21:00 EDT, Syrup, [facility]/pharmacy #[id number], Partial fill upon patient request if [...] opioid drug. Start Date: 07/27/20 Status: Ordered NovoLOG FlexPen 100 units/mL subcutaneous solution See Instructions, Subcutaneous Injection, Use as per sliding scale, 5 Refills, Maintenance, 12/22/18 7:07:37 EST Start Date: 12/22/18 Stop Date: 01/21/19 Status: Ordered ondansetron 4 mg oral tablet, disintegrating = 4 mg, By Mouth, Every 6 hours, PRN Nausea & Vomiting, # 90 tablet, 0 Refills, Maintenance, 04/02/20 9:29:00 EST, Tablet, [facility], Partial fill upon patient request if the prescription is for a schedule II opioid drug., 154.94, cm, 0... Start Date: 04/02/20 Status: Ordered OP PT for left knee pain and discomfort OP PT for left knee pain and discomfort, See Instructions, # 1 each, Refills 0, Tot. Refills 0, Maintenance, OP PT for left knee pain and discomfort, 10/08/20 16:20:00 EDT, Supply Start Date: 10/08/20 Status: Ordered propranolol 120 mg oral capsule, extended release 1 capsule = 120 mg, By Mouth, Daily at bedtime, # 30 capsule, 5 Refills, Maintenance, 01/17/18 9:48:32 EST, CR Capsule, Increasing dose. Start Date: 01/17/18 Stop Date: 07/16/18 Status: Ordered scopolamine 1 mg/72 hr transdermal film, extended release 1 film, Topically, Every 72 hours, APPLY 1 PATCH ON THE SKIN EVERY 3 DAYS. Start Date: 02/04/21 Status: Ordered Senna Plus 50 mg-8.6 mg oral tablet 2 tablet, By Mouth, Daily at bedtime, Maintenance, 10/04/18 16:17:29 EDT, Tablet Start Date: 10/04/18 Status: Ordered simvastatin 40 mg oral tablet 40 mg, 1, tablet, By Mouth, Daily at bedtime, # 90 tablet, Refills 1, Tot. Refills 1, Maintenance, 08/30/17 8:21:42 EDT, Route to Pharmacy Electronically, [id number], [facility]/pharmacy #[id number] Start Date: 08/30/17 Status: Ordered Tums 500 mg oral tablet, chewable 500 mg, 1, tablet, Chew, Every 4 hours, PRN, # 180 tablet, Refills 0, Tot. Refills 0, Maintenance, Dyspepsia, 06/21/18 11:05:15 EDT, Route to Pharmacy Electronically, [id number], [facility] Start Date: 06/21/18 Status: [...] WITH PRO LONGED DEPRESSIVE REACTION(Confirmed) 02/03/07 Active [facility] Emeral d Team Senior Level Patient(Confirmed) Active ASTHMA(Confirmed) 02/03/07 Active Bipolar disorder(Confirmed) Active Morbid obesity with BMI of 5 0.0-59.9, adult(Confirmed) Active Status post total hysterecto my 2/6/07, pathology was benign. Unless there is a [...]
--- OUTSIDE RECORDS SUMMARY | 2022-08-31 00:55 | XMS_ITS | Continuity of Care Document ---
Author Name Unknown Organization [facility] ter Address [address] [place] [id number] Care Team Providers Care Freight Unloader Name Role Phone Chaparrita Pizano DO Primary Care Physician Encounter [facility] [place] Date(s): 03/17/20 - 04/03/[address] [id number] Discharge Disposition: A-Transfer VNA/Home Health Attending Physician: Alina Rodgers MD Admitting Physician: Rosenda Hankins MD Referring Physician: Rosenda Hankins MD Allergies, Adverse Reactions, Alerts Substance Reaction [...] Patch ana cardia Active Lyrica Angioedema Active 1plizzie SHERIFF, tolerates with diphenhydramine 2Tolerates [...] 1 02/02/07 Given 1Admin Note: manufactured by [employer] Medications albuterol CFC free 90 mcg/inh inhalation aerosol 2, puffs, Inhalation, 4 times a day, PRN, # 75 Gm, Refills 0, Tot. Refills 0, Maintenance, 12/02/1919:00:05 EDT, Aerosol, Print Requisition Start Date: 12/01/18 Status: Ordered Ativan 0.5 mg oral tablet 1 tablet = 0.5 mg, By Mouth, 3 times a day, PRN Anxiety, for 30 days, # 90 tablet, 0 Refills, Acute05/02/20 9:28:00 EDT, 04/02/20 9:28:00 EST, Tablet, [facility], Partial fill upon patient request if the prescription is for a schedule I... Start Date: 04/02/20 Stop Date: 05/02/20 Status: Ordered bisacodyl 5 mg oral delayed release tablet 1 tablet = 5 mg, By Mouth, Daily, Maintenance, 10/04/18 16:16:38 EDT, EC Tablet Start Date: 10/04/18 Status: Ordered continue with BIPAP at night continue with BIPAP at night, See Instructions, # 1 applicator, Refills 0, Tot. Refills 0, Maintenance, continue with BIPAP at night, 10/08/17 10:57:28 EDT, Compound Start Date: 10/08/17 Status: Ordered diphenhydrAMINE 50 mg oral tablet 1 tablet = 50 mg, By Mouth, Every 6 hours, PRN as needed for itching, # 20 tablet, 1 Refills, Soft Stop, 11/17/17 13:46:18 EDT Start Date: 11/17/17 Stop Date: 12/07/17 Status: Ordered diphenhydrAMINE 50 mg oral tablet = 50 mg, By Mouth, Daily at bedtime, PRN Sleep, # 48 tablet, 0 Refills, Acute 04/30/20 0:00:00 EDT,04/02/20 9:27:00 EST, Tablet, [facility] 3, Partial fill upon patient request if the prescription is for a schedule II opioid drug., 154.94... Start Date: 04/02/20 Stop Date: 04/30/20 Status: Ordered docusate sodium 100 mg oral tablet 1 tablet = 100 mg, By Mouth, 2 times a day, Maintenance, 10/04/18 16:23:06 EDT, Tablet Start Date: 10/04/18 Status: Ordered Elmiron 100 mg oral capsule 1 capsule = 100 mg, By Mouth, 2 times a day, Maintenance, 10/04/18 16:20:24 EDT, Capsule Start Date: 10/04/18 Status: Ordered enoxaparin 40 mg/0.4 mL injectable solution 0.4 mL = 40 mg, Subcutaneous Injection, Daily, for 14 days, # 5.6 mL, 0 Refills, Acute 04/16/20 9:28:00 EST, 04/02/20 9:28:00 EST, Injection, [facility] 3, Partial fill upon patient request if the prescription is for a schedule II opioid d... Start Date: 04/02/20 Stop Date: 04/16/20 Status: Ordered Imodium A-D 2 mg oral tablet 2 mg, 1, tablet, By Mouth, Every 4 hours, PRN, not to exceed 8 capsules, or 16 mg, in 24 hours, # 90 tablet, Refills 0, Tot. Refills 0, Maintenance, for loose stool, 05/05/18 9:38:51 EDT, Route to Pharmacy Electronically, [id number]... Start Date: 05/05/18 Status: Ordered insulin glargine 100 units/mL subcutaneous solution = 25 units, Subcutaneous Injection, Daily at bedtime, # 12 mL, 0 Refills, Maintenance, 04/03/20 13:23:00 EST, Solution, [facility]/pharmacy #[id number], Partial fill upon patient request if the prescription is for a schedule II opioid drug., 154.94, cm, 04/03/20 1... Start Date: 04/03/20 Status: Ordered losartan 50 mg oral tablet 50 mg, 1, tablet, By Mouth, Daily in AM, # 30 tablet, Refills 0, Maintenance, 10/04/18 9:33:08 EDT Start Date: 10/04/18 Status: Ordered metFORMIN 1000 mg oral tablet 1 tablet = 1,000 mg, By Mouth, 2 times a day, # 60 tablet, 5 Refills, Maintenance, 10/10/17 13:02:54 EDT Start Date: 10/10/17 Status: Ordered NovoLOG FlexPen 100 units/mL subcutaneous solution See Instructions, Subcutaneous Injection, Use as directed for Diabetes mellitus type 1. (Max Dose =50 units/day), # 3 each, 5 Refills, Maintenance, 12/22/18 7:07:37 EST Start Date: 12/22/18 Stop Date: 01/21/19 Status: Ordered Nutritional Supplements See Instructions, # 60 each, Maintenance, drink one can bid dx: e11.9, poor appetite, short gut syndrome., 02/01/18 16:34:39 EST, Compound Start Date: 02/01/18 Status: Ordered ondansetron 4 mg oral tablet, disintegrating = 4 mg, By Mouth, Every 6 hours, PRN Nausea & Vomiting, # 90 tablet, 0 Refills, Maintenance, 04/02/20 9:29:00 EST, Tablet, [facility], Partial fill upon patient request if the prescription is for a schedule II opioid drug., 154.94, cm, 0... Start Date: 04/02/20 Status: Ordered oxybutynin 5 mg/24 hours oral tablet, extended release 1 tablet = 5 mg, By Mouth, 2 times a day, Maintenance, 10/04/18 16:19:53 EDT, ER Tablet Start Date: 10/04/18 Status: Ordered oxyCODONE 20 mg oral tablet 1 tablet = 20 mg, By Mouth, Every 4 hours, PRN as needed for pain, # 90 tablet, 0 Refills, Acute 04/30/20 0:00:00 EDT, 04/02/20 10:07:00 EST, Tablet, [facility], Partial fill upon patient request if the prescription is for a schedule II... Start Date: 04/02/20 Stop Date: 04/30/20 Status: Ordered oxyCODONE 5 mg oral tablet 10 mg, 2, tablet, By Mouth, Every 6 hours, PRN, # 120 tablet, Refills 0, Tot. Refills 0, Maintenance, for pain, 03/04/20 8:13:00 EST, [id number] fill upon patient request, 155, cm, 08/20/19 16:31:00 E... Start Date: 03/04/20 Status: Ordered OxyCONTIN 10 mg oral tablet, extended release 10 mg, ER Tablet, By Mouth, 04/03/20 11:00:00 EST Start Date: 04/03/20 Stop Date: 04/03/20 Status: Completed OxyCONTIN 10 mg oral tablet, extended release 10 mg, 1, tablet, By Mouth, Every 12 hours, # 60 tablet, Refills 0, Tot. Refills 0, Maintenance, 04/02/20 9:32:00 EST, Route to Pharmacy Electronically, [facility], Partial fill upon patient request if the prescription is for a schedule... Start Date: 04/02/20 Status: Ordered potassium chloride 8 mEq (600 mg) oral tablet, extended release 2 tablet = 16 mEq, By Mouth, Daily, 0 Refills, Maintenance, 02/09/18 20:52:04 EST Start Date: 02/09/18 Status: Ordered propranolol 120 mg oral capsule, extended release 1 capsule = 120 mg, By Mouth, Daily at bedtime, # 30 capsule, 5 Refills, Maintenance, 01/17/18 9:48:32 EST, CR Capsule, Increasing dose. Start Date: 01/17/18 Stop Date: 07/16/18 Status: Ordered scopolamine 1 mg/72 hr transdermal film, extended release 1 film, Topically, Every 72 hours, # 10 each, 0 Refills, Acute 04/30/20 0:00:00 EDT, 04/02/20 9:33:00 EST, [facility], Partial fill upon patient request if the prescription is for a schedule II opioid drug., 1 film Topically Every 72 poppy... Start Date: 04/02/20 Stop Date: 04/30/20 Status: Ordered Senna Plus 50 mg-8.6 mg oral tablet 2 tablet, By Mouth, Daily at bedtime, Maintenance, 10/04/18 16:17:29 EDT, Tablet Start Date: 10/04/18 Status: Ordered simvastatin 40 mg oral tablet 40 mg, 1, tablet, By Mouth, Daily at bedtime, # 90 tablet, Refills 1, Tot. Refills 1, Maintenance, 08/30/17 8:21:42 EDT, Route to Pharmacy Electronically, [id number], [facility]/pharmacy #[id number] Start Date: 08/30/17 Status: Ordered Tums 500 mg oral tablet, chewable 500 mg, 1, tablet, Chew, Every 4 hours, PRN, # 180 tablet, Refills 0, Tot. Refills 0, Maintenance, Dyspepsia, 06/21/18 11:05:15 EDT, Route to Pharmacy Electronically, [id number], [facility] Start Date: 06/21/18 Status: Ordered Vitamin D3 2000 intl units oral capsule 1 capsule = 2,000 International_Units, By Mouth, 3 times a day, 0 Refills, Maintenance, 02/22/18 7:05:50 EST Start Date: 02/22/18 Status: Ordered Zofran ODT 4 mg oral tablet, disintegrating 1 tablet = 4 mg, By Mouth, Every 6 hours, PRN Vomiting, # 20 tablet, 0 Refills, Maintenance, 12/21/17 15:36:31 EST Start Date: 12/21/17 Stop Date: 12/26/17 Status: Ordered Problem List Condition Effective Dates Status Health Status Inform ant Abdominal pain(Confirmed) Active Trigger point of abdomen(Confirmed) Active Abscess(Confirmed) Active ADJUSTMENT REACTION WITH PRO LONGED DEPRESSIVE REACTION(Confirmed) 02/03/07 Active [facility] Emeral d Team Senior Level Patient(Confirmed) Active ASTHMA(Confirmed) 02/03/07 Active Bipolar disorder(Confirmed) Active Morbid obesity with BMI of 5 0.0-59.9, adult(Confirmed) Active Status post total hysterecto my 03/22/06, pathology was benign. Unless there is a history of SHELLY III or cancer, Pap smears are no longer needed(Confirmed) Active COPD (chronic obstructive pu lmonary disease)(Confirmed) Active Chronic pelvic pain in female(Confirmed) Active Constipation(Confirmed) Active DIABETES MELLITUS WITHOUT ME [...] mass in female(Confirmed) Active Spinal stenosis(Confirmed) Active DM (diabetes mellitus), type 2, uncontrolled(Confirmed) Active Results Radiology Reports * Exam Date Time Procedure Performing Provider Status 04/02/20 9:08 AM Abdomen AP Tamiko Borges; Auth (Verified) Notes: (Abdomen AP) Reason For Exam: Obstruction;Other: RESULT: XR Abdomen AP XR Abdomen AP INDICATION/CLINICAL QUESTION: Abdominal Reason: Other:; Obstruction; Clinical Question(s): Obstruction; Order Comment: Small Bowel Series Prep / Obstruction. COMPARISON: 03/28/2020. CT abdomen pelvis 03/25/2020. FINDINGS: There is gaseous dilation of multiple loops of central small bowel measuring up to approximately 6.3 cm in diameter. Enteric contrast reaches the mid descending colon The overall distribution of contrast is not significantly changed from 03/28/2020. No evidence of pneumoperitoneum. No organomegaly or masses. Multiple surgical coils in the abdominal wall from prior mesh placement. Clear lung bases. The osseous structures are unremarkable. IMPRESSION: 1. Gaseous distention of central loops of small bowel which have increased in diameter from 03/28/2020. This is likely secondary to the patient's known small bowel obstruction. 2. No significant change in distribution of the enteric contrast in the large bowel. I have personally reviewed the images and I agree with this report. WSN: [id number] Ordering Physician: Melina Ramirez Dictated By: Hamilton Mcneil MD Dictated Date/Time: 04/02/20 10:48 a Reviewed By: Aguilar Live MD Signed By: Aguilar Live MD Signed Date/Time: 04/02/20 10:53 am Transcribed By: DEIDRE Transcribed Date/Time: 04/02/20 10:18 am * Exam Date Time Procedure Performing Provider Status 03/28/20 9:14 AM Abdomen AP Lucas Stone; Auth (Sofia rolon) Notes: (Abdomen AP) Reason For Exam: Distention;Determine clearance of contrast RESULT: XR Abdomen AP XR Abdomen AP INDICATION: Reason: Distention; Determine clearance of contrast; Clinical Question(s): Obstruction;Order Comment: Talked to RN @0057 film to be done at a later time MMS. Age 44 years COMPARISON: 03/27/2020. FINDINGS: No significant interval change in distribution of enteric contrast most distally located in the lower descending colon. Unchanged gaseous distention of small bowel loops. Left hemipelvic surgical drain, skin mahsa, and mesh anchors are again visualized. IMPRESSION: No significant interval change in distribution of enteric contrast and gaseous distention of small bowel loops suggesting partial obstruction or ileus. WSN: [id number] Ordering Physician: Gracia Sloan Dictated By: Olga Mckeon MD Dictated Date/Time: 03/28/20 12:54 p Reviewed By: Olga Mckeon MD Signed By: Olga Mckeon MD Signed Date/Time: 03/28/20 12:54 pm Transcribed By: DEIDRE Transcribed Date/Time: 03/28/20 12:52 pm * Exam Date Time Procedure Performing Provider Status 03/27/20 3:30 PM Abdomen AP Génesis Pittman; Shanika Notes: (Abdomen AP) Reason For Exam: abd pain, n/v, decreased bowel function;Nausea/Vomiting RESULT: XR Abdomen AP XR Abdomen AP INDICATION/CLINICAL QUESTION: Reason: Nausea Vomiting; abd pain, n v, decreased bowel function; Clinical Question(s): Obstruction; Order Comment: pt has a contrast allergy .. spoke to ordering physician and nurse and they are going to pre medicate her .. gm 1145 to follow up. RXD. Obstruction COMPARISON: CT dated 03/25/2020 FINDINGS: The previously administered enteric contrast is now present in the colon. Persistently dilated small bowel loops are present in the left lower quadrant and mid abdomen. IMPRESSION: Findings likely related to a partial obstruction. WSN: [id number] Ordering Physician: Marina Guerrero Dictated By: Willian Dejesus MD Dictated Date/Time: 03/27/20 9:54 pm Reviewed By: Willian Dejesus MD Signed By: Willian Dejesus MD Signed Date/Time: 03/27/20 9:54 pm Transcribed By: DEIDRE Transcribed Date/Time: 03/27/20 9:52 pm * Exam Date Time Procedure Performing Provider Status 03/27/20 3:35 AM XR Abdomen AP Small Bowel W/ contrast Mainor Quezada; Auth (Verified) Notes: (XR Abdomen AP Small Bowel W/ contrast) Reason For Exam: Distention RESULT: XR Abdomen AP Small Bowel with contrast Study: XR Abdomen AP Small Bowel with contrast History: Reason: Distention; Clinical Question(s): Obstruction; Special Instructions: Please get a KUB 8 hours after Gastrografin administration; Comparison: Chest x-ray dated 03/26/[address] abdomen/pelvis dated 03/25/2020. FINDINGS: AP images of the abdomen and pelvis were obtained 8 hours after administration of 90 cc Gastrografin. Lines and tubes: An enteric tube tip is in the left upper quadrant, likely in the stomach. The sidehole is below the level of the GE junction. A central venous catheter terminates in the right atrium. A surgical drain is present in the left hemipelvis. Bowel: There is diluted contrast in the distal small bowel loops and in the colon to the level of the descending colon. Small bowel loops are gas-filled and remain distended measuring up to 4.7 cm incaliber. No evidence of pneumatosis or extraluminal gas. Bones and soft tissues: There are degenerative changes in the lower lumbar spine. Surgical clips inthe right upper quadrant and skin mahsa in the midline pelvis. Mesh anchors in place from ventralhernia repair. IMPRESSION: Persistent dilatation of small bowel loops with contrast transit into the left hemicolon, suggestive of ileus or partial/low grade bowel obstruction. WSN: [id number] Ordering Physician: Cecil Yu Dictated By: Olga Mckeon MD Dictated Date/Time: 03/27/20 9:16 am Reviewed By: Olga Mckeon MD Signed By: Olga Mckeon MD Signed Date/Time: 03/27/20 9:16 am Transcribed By: DEIDRE Transcribed Date/Time: 03/27/20 9:07 am * Exam Date Time Procedure Performing Provider Status 03/26/20 11:27 AM Chest Portable Génesis Pittman; Auth (Verified) Notes: (Chest Portable) Reason For Exam: Line Placement RESULT: Chest Portable Chest Portable Reason: Line Placement; Clinical Question(s): Line Placement; NG tube advanced COMPARISON: 03/26/2020 FINDINGS: LINES AND TUBES: NG tube has been advanced with distal tip and side-port now in the stomach. Right IJ Port-A-Cath with tip in lower SVC unchanged. LUNGS AND PLEURA: Low lung volumes and bibasilar atelectasis with accentuation of central vascular markings. No pleural effusion. No pneumothorax. HEART, MEDIASTINUM AND LISA: Heart is at the upper limits of normal for size. Normal upper mediastinal and hilar contour. BONES AND SOFT TISSUES: No acute abnormality. IMPRESSION: Well-positioned NG tube. No acute abnormality. WSN: [id number] Ordering Physician: Lexi Weaver Dictated By: Jorden Cardona MD Dictated Date/Time: 03/26/20 1:33 pm Reviewed By: Jorden Cardona MD Signed By: Jorden Cardona MD Signed Date/Time: 03/26/20 1:33 pm Transcribed By: DEIDRE Transcribed Date/Time: 03/26/20 1:32 pm * Exam Date Time Procedure Performing Provider Status 03/26/20 9:49 AM Chest Portable Génesis Pittman; Auth ( Verified) Notes: (Chest Portable) Reason For Exam: Line Placement RESULT: Chest Portable Chest Portable HISTORY: Line placement. CLINICAL QUESTION: Enteric tube placement. COMPARISON: 08/19/2019. FINDINGS: LINES AND TUBES: Unchanged right Port-A-Cath tip overlies the superior cavoatrial junction. Enteric tube sidehole in the distal esophagus, tip within the stomach. LUNGS AND PLEURA: Low lung volumes and increased pulmonary vascular markings. Lungs are otherwise clear with no consolidation. No pleural effusion. No pneumothorax. HEART, MEDIASTINUM AND LISA: Unchanged cardiomediastinal silhouette. BONES AND SOFT TISSUES: Multilevel degenerative changes of the spine. Cholecystectomy. No acute osseous abnormality. IMPRESSION: Enteric tube sidehole in the distal esophagus, advancing approximately 7 cm is recommended. Results were discussed via telephone by Torrey Rausch MD with Lexi Weaver MD on 03/26/2020 at10:02 AM with understanding voiced back. I have personally reviewed the images and I agree with this report. WSN: [id number] Ordering Physician: Lexi Weaver Dictated By: Torrey Casey MD Dictated Date/Time: 03/26/20 10:04 a Reviewed By: Luigi Diop MD Signed By: Luigi Diop MD Signed Date/Time: 03/26/20 10:09 am Transcribed By: DEIDRE Transcribed Date/Time: 03/26/20 10:03 am * Exam Date Time Procedure Performing Provider Status 03/25/20 10:23 AM Abdomen AP Leanne Guthrie; Auth (Ve rified) Notes: (Abdomen AP) Reason For Exam: Nausea/Vomiting RESULT: XR Abdomen AP XR Abdomen AP INDICATION/CLINICAL QUESTION: Nausea Vomiting; Clinical Question(s): Obstruction. Obstruction COMPARISON: 03/24/2020 FINDINGS: No significant change in gas-filled loops of small bowel in the left side of the abdomen. There is some gas in the colon and rectum. No supine evidence of pneumoperitoneum. Tube overlies the pelvis, likely a bladder catheter. During projects over the left lower quadrant. There are multiple skin mahsa present. No acute osseous abnormality. Surgical clips in the right upper quadrant. Lung bases clear. IMPRESSION: No significant change in dilated gas-filled loops of small bowel. WSN: [id number] Ordering Physician: Gracia Sloan Dictated By: Jorden Genao MD Dictated Date/Time: 03/25/20 11:37 a Reviewed By: Jorden Genao MD Signed By: Jorden Genao MD Signed Date/Time: 03/25/20 11:37 am Transcribed By: DEIDRE Transcribed Date/Time: 03/25/20 11:29 am * Exam Date Time Procedure Performing Provider Status 03/24/20 10:37 AM Abdomen AP Rachel Haider; Auth (Ve rified) Notes: (Abdomen AP) Reason For Exam: Nausea/Vomiting RESULT: XR Abdomen AP XR Abdomen AP INDICATION/CLINICAL QUESTION: Nausea Vomiting; Clinical Question(s): Obstruction. COMPARISON: 03/23/2020. FINDINGS: 2 AP abdominal radiographs labeled 10:30 AM, Multiple air-filled dilated small bowel loops occupy the left side of the abdomen which are less distended than the previous day's examination likely an evolving ileus. No convincing evidence of intraperitoneal free air. Surgical drain overlies the left buttocks region unchanged. There are multiple cutaneous skin mahsa and evidence of previous abdominal wall hernia repair. IMPRESSION: Ileus versus obstruction, this appears slightly improved from the previous day's exam. WSN: [id number] Ordering Physician: Gracia Sloan Dictated By: Aguila Dennis MD Dictated Date/Time: 03/24/20 12:57 p Reviewed By: Aguila Dennis MD Signed By: Aguila Dennis MD Signed Date/Time: 03/24/20 12:57 pm Transcribed By: DEIDRE Transcribed Date/Time: 03/24/20 12:50 pm * Exam Date Time Procedure Performing Provider Status 03/23/20 11:48 AM Abdomen Comp Inc Dec ub and/or Erect Josef Vines; Esther (Verified) Notes: (Abdomen Comp Inc Decub and/or Erect) Reason For Exam: Evaluate for ileus;Pain RESULT: Abdomen Comp Inc Decub and/or Erect Abdomen Comp Inc Decub and/or Erect 4 views INDICATION/CLINICAL QUESTION: Reason: Pain; Evaluate for ileus; Clinical Question(s): Obstruction. Obstruction COMPARISON: 10/04/2018. FINDINGS: Supine and left lateral decubitus views obtained. YARY drain in the left pelvis. Laparotomy clips in the inferior midline abdomen, as well as herniorrhaphy clips. Cholecystectomy clips. Small surgical clips present in the right lateral and left lateral abdomen. Numerous dilated loops of small bowel within the central and left abdomen. Loops are dilated up to approximately 7 cm. No evidence of pneumoperitoneum. No organomegaly, masses or calcifications. Clear lung bases and normal bones. Catheter projects into the right atrium. IMPRESSION: Numerous loops of abnormally dilated small bowel within the central and left abdomen. Findings suggest ileus, with small bowel obstruction not entirely excluded. No pneumoperitoneum. YARY drain in the left pelvis. Laparotomy clips in the midline lower abdomen. WSN: [id number] Ordering Physician: Sofia Castro Dictated By: Craig Ravi MD Dictated Date/Time: 03/23/20 12:19 p Reviewed By: Craig Ravi MD Signed By: Craig Ravi MD Signed Date/Time: 03/23/20 12:19 pm Transcribed By: DEIDRE Transcribed Date/Time: 03/23/20 12:14 pm Vital Signs Most recent to oldest [Reference Range]: 1 2 3 Height 154.94 cm (04/03/20 11:23 AM) 154.94 cm (04/03/20 7:46 AM) 154.94 cm (04/02/20 11:58 PM) Weight 138.20 kg (04/03/20 7:21 AM) 137.3 kg (04/02/20 6:17 AM) 135.45 kg (04/01/20 6:16 AM) Oxygen Saturation [94-100 %] 98 % (04/03/20 11:23 AM) 98 % (04/03/20 7:46 AM) 96 % (04/02/20 11:58 PM) Pulse Rate [55-90 bpm] 94 bpm *H* (04/03/20 11:23 AM) 95 bpm *H* (04/03/20 7:46 AM) 101 bpm *H* (04/02/20 11:58 PM) Body Mass Index [18.5-24.99] 55.65 *>HHI* (03/17/20 9:17 PM) 55.67 *>HHI* (03/17/20 6:11 AM) 55.67 *>HHI* (03/10/20 9:25 AM) Blood Pressure [90-138/55-84 mm Hg] 131/95mm Hg (04/03/20 11:23 AM) 126/78mm Hg (04/03/20 7:46 AM) 106/64mm Hg (04/02/20 11:58 PM) Respiratory Rate [16-30 br/min] 18 br/min (04/03/20 11:39 AM) 18 br/min (04/03/20 11:23 AM) 18 br/min (04/03/20 10:39 AM) Temperature [96.8-100.4 DegF] 97.9 DegF (04/03/20 11:23 AM) 97.5 DegF (04/03/20 7:46 AM) 98.9 DegF (04/02/20 11:58 PM) Liters per Minute 2 L/min (03/18/20 12:23 AM) 2 L/min (03/17/20 4:00 PM) 2 L/min (03/17/20 3:00 PM) Mode of Delivery (Oxygen) Room air (04/03/20 11:23 AM) Room air (04/03/20 7:46 AM) Room air (04/02/20 11:58 PM) Blood pressure sites Arm, left (04/03/20 11:23 AM) Arm, left (04/03/20 7:46 AM) Arm, left (04/02/20 11:58 PM) Temperature Route Oral (04/03/20 11:23 AM) Oral (04/03/20 7:46 AM) Oral (04/02/20 11:58 PM) Dry Weight 133.6 kg (03/17/20 9:17 PM) 133.64 kg (03/10/20 9:25 AM) Weight Obtained Via Standing scale (04/03/20 7:21 AM) Standing scale (04/02/20 6:17 AM) Standing scale (04/01/20 6:16 AM) Dry Weight Obtained Via Patient/family s tated (03/10/20 9:25 AM) Social History Social History Type Response Smoking Status Former smoker; Other : quit 04/2015; entered on: 01/30/16 Sex Female
--- OUTSIDE RECORDS SUMMARY | 2022-08-31 00:55 | XMS_ITS | Continuity of Care Document ---
Author Name Unknown Organization [facility] NEW ORDER CLERK Oncolog y Address [address] [place] [address]- Care Team Providers Care Hydropulper Name Role Phone Chaparrita Pizano DO Primary Care Physician [place] [facility] [place]): 03/12/20 - 04/11/20 [facility] NEW ORDER CLERK Oncology [address], [place] [address] Allergies, Adverse Reactions, Alerts Substance Reaction [...] 1 02/02/07 Given 1Admin Note: manufactured by [employer] Medications albuterol 0.042% inhalation solution 3 [...] Acute05/02/20 9:28:00 EDT, 04/02/20 9:28:00 EST, Tablet, [facility], Partial fill upon patient [...] EDT, Compound Start Date: 10/08/17 Status: Ordered diclofenac 1% topical gel = 2 Gm, Topically, 2 times a day, PRN Pain Start Date: 04/04/20 Status: Ordered diphenhydrAMINE 12.5 mg/5 mL oral liquid 10 mL = 25 mg, By Mouth, Every 4 hours, PRN Itch, # 120 mL, 1 Refills, Acute 05/07/20 0:00:00 EDT, 04/09/20 6:53:00 EST, Liquid, [facility], Partial fill upon patient request if the prescription is for a schedule II opioid drug., 154, cm... Start Date: 04/09/20 Stop Date: 05/07/20 Status: Ordered docusate sodium 100 mg oral tablet 1 tablet = 100 mg, By Mouth, 2 times a day, Maintenance, 10/04/18 16:23:06 EDT, Tablet Start Date: 10/04/18 Status: Ordered enoxaparin 40 mg/0.4 mL injectable solution 0.4 mL = 40 mg, Subcutaneous Injection, Daily, for 14 days, # 5.6 mL, 0 Refills, Acute 04/16/20 9:28:00 EST, 04/02/20 9:28:00 EST, Injection, [facility], Partial fill upon patient request if the prescription is for a schedule II opioid d... Start Date: 04/02/20 Stop Date: 04/16/20 Status: Ordered insulin glargine 100 units/mL subcutaneous solution = 25 units, Subcutaneous Injection, Daily at bedtime, # 12 mL, 0 Refills, Maintenance, 04/03/20 13:23:00 EST, Solution, [facility]/pharmacy #[id number], Partial fill upon patient request if the prescription is for a schedule II opioid drug., 154.94, cm, 04/03/20 1... Start Date: 04/03/20 Status: Ordered losartan 50 mg oral tablet 50 mg, 1, tablet, By Mouth, Daily in AM, # 30 tablet, Refills 0, Maintenance, 10/04/18 9:33:08 EDT Start Date: 10/04/18 Status: Ordered morphine 10 mg/5 mL oral solution 15 mL = 30 mg, By Mouth, Every 6 hours, PRN for pain, # 420 mL, 0 Refills, Acute 04/16/20 0:00:00 EST, 04/09/20 8:17:00 EST, Solution, [facility], Partial fill upon patient request if the prescription is for a schedule II opioid drug., 1... Start Date: 04/09/20 Stop Date: 04/16/20 Status: Ordered naloxone 4 mg/0.1 mL nasal spray = 4 mg, Nares, Both, Once, # 2 each, 0 Refills, Soft Stop, 04/09/20 13:16:00 EST, [facility], Partial fill upon patient request if [...] 0 Refills, Maintenance, 04/02/20 9:29:00 EST, Tablet, [facility], Partial fill upon patient request if the prescription is for a schedule II opioid drug., 154.94, cm, 0... Start Date: 04/02/20 Status: Ordered OxyCONTIN 10 mg oral tablet, extended release 10 mg, 1, tablet, By Mouth, Every 12 hours, # 60 tablet, Refills 0, Tot. Refills 0, Maintenance, 04/02/20 9:32:00 EST, Route to Pharmacy Electronically, [facility], Partial fill upon patient request if the prescription is for a schedule... Start Date: 04/02/20 Status: Ordered propranolol 120 mg oral capsule, [...] Acute 04/30/20 0:00:00 EDT, 04/02/20 9:33:00 EST, [facility], Partial fill upon patient [...] 08/30/17 8:21:42 EDT, Route to Pharmacy Electronically, [id number], [facility]/pharmacy #[id number] Start Date: 08/30/17 Status: Ordered Tums 500 mg oral tablet, chewable 500 mg, 1, tablet, Chew, Every 4 hours, PRN, # 180 tablet, Refills 0, Tot. Refills 0, Maintenance, Dyspepsia, 06/21/18 11:05:15 EDT, Route to Pharmacy Electronically, [id number], [facility] Start Date: 06/21/18 Status: [...] WITH PRO LONGED DEPRESSIVE REACTION(Confirmed) 02/03/07 Active [facility] Emeral d Team Senior Level Patient(Confirmed) Active [...]
--- OUTSIDE RECORDS SUMMARY | 2022-08-31 00:55 | XMS_ITS | Continuity of Care Document ---
Author Name Unknown Organization [facility] ter Address [address] [place] [id number]- Care Team Providers Care Pen And Pencil Repairer Name Role Phone Darryl Pizano DOdavidradha Gupta Primary Care Physician ( [phone] [place]counter [facility] [place](s): 11/13/21 - 02/22/[address] [address]- Attending Physician: Donald Murphy MD Admitting Physician: [...] Status Refusal Reason influenza virus vaccine, inactivated 11/10/21 Give n influenza virus vaccine, inactivated 02/05/21 Give n [...] to receive vaccine 2Admin Note: manufactured by [employer] Medications albuterol 0.042% inhalation solution 3 [...] 09/08/21 13:21:00 EDT, Route to Pharmacy Electronically, [facility], Partial fill upon patient request if the prescr... Start Date: 09/08/21 Stop Date: 10/08/21 Status: Ordered HYDROmorphone 1 mg/mL oral liquid 4 mL = 4 mg, By Mouth, Every 6 hours, PRN as needed for pain, 0 Refills, Maintenance, 12/23/21 15:07:00 EST, Liquid, Partial fill upon patient request if the prescription is for a schedule II opioid drug. Start Date: 12/23/21 Status: Ordered Insulin Glargine = 35 units, Subcutaneous Injection, 2 times a day, 0 Refills, Maintenance, 11/09/21 18:35:00 EDT, Partial fill upon patient request if the prescription is for a schedule II opioid drug. Start Date: 11/09/21 Status: Ordered LORazepam 0.5 mg oral tablet 1 tablet = 0.5 mg, By Mouth, Daily at bedtime, 0 Refills, Maintenance, 08/29/21 2:21:00 EDT, Tablet, Partial fill upon patient request if the prescription is for a schedule II opioid drug. Start Date: 08/29/21 Status: Ordered NovoLOG FlexPen 100 units/mL subcutaneous solution See Instructions, Subcutaneous Injection, Use as per sliding scale, 5 Refills, Maintenance, 12/22/18 7:07:37 EST Start Date: 12/22/18 Stop Date: 01/21/19 Status: Ordered ondansetron 4 mg oral tablet, disintegrating = 4 mg, By Mouth, Every 6 hours, PRN Nausea & Vomiting, # 90 tablet, 0 Refills, Maintenance, 04/02/20 9:29:00 EST, Tablet, [facility], Partial fill upon patient request if [...] 06/21/18 11:05:15 EDT, Route to Pharmacy Electronically, [id number], [facility] Start Date: 06/21/18 Status: Ordered Vitamin D3 2000 intl units oral capsule 1 capsule = 2,000 International_Units, By Mouth, 3 times a day, 0 Refills, Maintenance, 02/22/18 7:05:50 EST Start Date: 02/22/18 Status: Ordered Problem List Condition Confirmation Course Effective Dates Status H ealth Status Informant Abdominal pain Confirmed Active Trigger point of abdomen Confirmed Active Abscess Confirmed Active ADJUSTMENT REACTION WITH PROLONGED DEPRESSIVE REACTION Confirmed 02/03/07 Active [place] [facility] [place] Team Senior Level Patient Confirmed Active ASTHMA Confirmed 02/03/07 Active Bipolar disorder Confirmed Active Morbid obesity with BMI of 50.0-59.9, adult Confirmed Active Status post total hysterectomy 03/22/06, pathology was benign. Unless there is a history of SHELLY III or cancer, Pap smears are no longer needed Confirmed Active COPD (chronic obstructive pulmonary disease) Confirmed Active Constipation Confirmed Active DIABETES MELLITUS WITHOUT MENTION OF COMPLICATION Confirmed 02/03/07 Active Peripheral autonomic neuropathy due to DM Confirmed Active ESSENTIAL HYPERTENSION Confirmed Active Fibromyalgia Confirmed Active 7, para 5 Confirmed Active Medically complex patient Confirmed Active Hyperlipidemia Confirmed Active Low back pain Confirmed Active MIGRAINE Confirmed 02/03/07 Active Neurogenic bladder Confirmed Active AURELIO (obstructive sleep apnea) Confirmed Active Optic neuritis, right Confirmed Active Partial small bowel obstruction Confirmed Active Pelvic mass in female Confirmed Active Severe obesity Confirmed Active Spinal stenosis Confirmed Active Follow-up examination after gynecological surgery Confirmed Active DM (diabetes mellitus), type 2, uncontrolled Confirmed Active Social History Social History Type Response Smoking Status Former smoker; Other : quit 04/2015; entered on: 01/30/16 Sex Female Patient Care team information Care Team Personnel Name: Lola Belcher RN Position: [facility] RN Member Role: Primary Care Nurse Name: Jose Enrique Saul RN Position: [facility] RN Member Role: Primary Care Nurse Name: Symone Mckinnon RN Position: [facility] RN Member Role: Primary Care Nurse Name: Carolyn Pelaez RN Position: [facility] RN Member Role: Primary Care Nurse Name: Deanna Garcia RN Position: [facility] RN Member Role: Primary Care Nurse Name: Fanny Mixon RN Position: [facility] ED RN W/OE and Tasks Member Role: Primary Care Nurse Name: María Ashford RN Position: [facility] AMB Nurse Member Role: Primary Care Nurse Name: Chanelle Hernandez RN Position: [facility] PCO RN Member Role: Primary Care Nurse Name: Estelle García RN Position: [facility] RN Member Role: Primary Care Nurse Name: Deanne Rangel RN Position: [facility] RN Member Role: Primary Care Nurse Name: aCrine Jimenez RN Position: [facility] SN RN Member Role: Primary Care Nurse Name: Jenelle Campo RN Position: [facility] RN Member Role: Primary Care Nurse Name: Keyla Godwin RN Position: [facility] RN Member Role: Primary Care Nurse Name: Yeimi Devine RN Position: [facility] RN Member Role: Primary Care Nurse Name: Mary Yan RN Position: [facility] RN Member Role: Primary Care Nurse Name: Iliana Pop RN Position: [facility] RN Member Role: Primary Care Nurse Name: Alcides Dueñas RN Position: [facility] RN Member Role: Primary Care Nurse Name: Lisa Beatty Position: [facility] Outreach Member Role: Lifetime Consulting Physician Name: Armida Beatty RN Position: [facility] RN Member Role: Primary Care Nurse Name: Roque Villasenor MD Position: [facility] Renal MD Member Role: Lifetime Consulting Physician Address: Address: [address] [place] [address], [address] [facility] [place], [place] [address] Name: Lashon Lovell RN Position: [facility] SN RN Member Role: Primary Care Nurse Name: Kristi Giraldo RN Position: [facility] RN Supv Member Role: Primary Care Nurse Name: Jerrod Casarez RN Position: [facility] RN Member Role: Primary Care Nurse Name: Rosalva Martin RN Position: [facility] RN Member Role: Primary Care Nurse Name: Armida Ochoa RN Position: [facility] RN Member Role: Primary Care Nurse Name: Deonna Murillo RN Position: [facility] RN Member Role: Primary Care Nurse Name: Felipa Diehl RN Position: [facility] HBO Wound Member Role: Primary Care Nurse Name: Evelin Powell RN Position: [facility] AMB Nurse Member Role: Primary Care Nurse Name: Deonna Pendleton RN Position: [facility] RN Member Role: Primary Care Nurse Name: Pili Kaba RN Position: [facility] RN Member Role: Primary Care Nurse Name: Alejandro Yanes RN Position: [facility] RN Member Role: Primary Care Nurse Name: Stacey Díaz RN Position: [facility] SN RN Member Role: Primary Care Nurse Name: Jac Reese RN Position: [facility] RN Member Role: Primary Care Nurse Name: Celestine Schwartz RN Position: [facility] RN Member Role: Primary Care Nurse Name: Neeta Carpenter RN Position: [facility] RN Member Role: Primary Care Nurse Name: Susie Estrada RN Position: [facility] RN Member Role: Primary Care Nurse Name: Inna Cantor RN Position: [facility] RN Member Role: Primary Care Nurse Name: Chaparrita Pizano DO Position: [facility] Physician (General Medicine) Member Role: PCP Address: Address: [address] [place] [address]- Name: Ning Rolon RN Position: [facility] RN Member Role: Primary Care Nurse Name: Rubi Carrasco RN Position: [facility] SN RN Member Role: Primary Care Nurse Name: Lauryn Holden RN Position: [facility] RN Member Role: Primary Care Nurse Name: Shen Silvestre RN Position: [facility] RN Member Role: Primary Care Nurse Name: Jones Cervantes RN Position: [facility] RN Member Role: Primary Care Nurse Name: Olivia Caputo RN Position: [facility] RN Member Role: Primary Care Nurse Name: Brooklyn Jim RN Position: [facility] RN Member Role: Primary Care Nurse Name: Kimberly Santoro RN Position: [facility] RN Member Role: Primary Care Nurse Name: Haley Diamond RN Position: [facility] RN Member Role: Primary Care Nurse Name: Ashley Meléndez NP Position: [facility] PCO Associate Professional Member Role: Primary Care Nurse Address: Address: [address] [place] [address]- Name: Siomara Patricia RN Position: [facility] PCO RN Member Role: Primary Care Nurse Name: Neeta Painter RN Position: [facility] RN Member Role: Primary Care Nurse Name: Edith Drummond RN Position: [facility] RN Member Role: Primary Care Nurse Name: Bailey Espinal RN Position: [facility] QUAN Nurse Member Role: Primary Care Nurse Name: Brooklyn Ramsey RN Position: [facility] RN Member Role: Primary Care Nurse Name: Keyla Bright RN Position: [facility] RN Member Role: Primary Care Nurse Name: Beverley Tatum RN Position: [facility] RN Member Role: Primary Care Nurse Name: Mainor Devries RN Position: [facility] RN Member Role: Primary Care Nurse Name: Yarely Richards RN Position: [facility] Repairer [employer] Door Member Role: Primary Care Nurse Name: Oralia Massey RN Position: [facility] RN Member Role: Primary Care Nurse Name: Rich WILSON pee Position: [facility] RN Member Role: Primary Care Nurse Name: Taiwo Mcgregor RN Position: [facility] RN Member Role: Primary Care Nurse Name: Cally Funes RN Position: [facility] SN RN Member Role: Primary Care Nurse Name: Marina Osorio Position: [facility] RN Member Role: Primary Care Nurse Name: Lisa Blanton RN Position: [facility] Repairer [employer] Member Role: Primary Care Nurse Name: Danica Stuart RN Position: [facility] AMB Nurse Member Role: Primary Care Nurse Name: Shruthi Ray RN Position: [facility] RN Member Role: Primary Care Nurse Name: Abbe Choe RN Position: [facility] RN Supv Member Role: Primary Care Nurse Name: Farideh Cat LPN Position: [facility] RN Member Role: Primary Care Nurse Name: Janis Morris RN Position: [facility] Repairer [employer] Member Role: Primary Care Nurse Name: Darrian Chang RN Position: [facility] Repairer [employer] Member Role: Primary Care Nurse Name: Jerry Mcneill RN Position: [facility] RN Member Role: Primary Care Nurse Care Team Related Persons Name: IVAN VILLASENOR Address: [place] [address] Name: REYNALDO KAUR Address: home [address] [place] [address] Name: EMMA SERRANO Address: home [address] [address] Name: PATRICK MATA Address: [address] [place] [address] Name: FARIDEH POPE Address: [place] [address]
--- OUTSIDE RECORDS SUMMARY | 2022-08-31 00:56 | XMS_ITS | Continuity of Care Document ---
Author Name Unknown Organization [facility] Address Unknown Care Team Providers Care Weapons Engineer Name Role Phone Chaparrita Pizano DO Primary Care Physician Encounter [facility] [place] Date(s): 07/07/21 - 07/14/21 [facility] Attending Physician: Sarah Franco MD Referring Physician: Chaparrita Pizano DO Allergies, Adverse Reactions, Alerts Substance Reaction Severity [...] shortness of breath Active Tylenol hives Active Adhesive Bandage skin excoriation hives Active Contrast Dye hives itchy throat itchy Persistent Mild Active Nexium diarrhea, vomitting Active Reglan severe restless legs Active Latex vag rash Active Seafood Anaphylactic shock d ue to adverse food reaction Severe Active Nicotine Patch ana cardia Active Lyrica [...] to receive vaccine 2Admin Note: manufactured by [employer] Medications albuterol 0.042% inhalation solution 3 mL [...] 08/31/21 13:21:00 EDT, 08/31/20 13:21:00 EDT, Tablet, [facility]/pharmacy #[id number], Partial fill upon patient request... Start Date: [...] 08/31/22 13:22:00 EDT, 08/31/20 13:21:00 EDT, Syrup, [facility]/pharmacy #[id number], Partial fill upon patient request if the prescription is for a schedule II opioid drug., 30 mL By Mouth 3 times... Start Date: 08/31/20 Stop Date: 08/31/22 Status: Ordered NovoLOG FlexPen 100 units/mL subcutaneous solution See Instructions, Subcutaneous Injection, Use as per sliding scale, 5 Refills, Maintenance, 12/22/18 7:07:37 EST Start Date: 12/22/18 Stop Date: 01/21/19 Status: Ordered ondansetron 4 mg oral tablet, disintegrating = 4 mg, By Mouth, Every 6 hours, PRN Nausea & Vomiting, # 90 tablet, 0 Refills, Maintenance, 04/02/20 9:29:00 EST, Tablet, [facility], Partial fill upon patient request if [...] EDT, Supply Start Date: 10/08/20 Status: Ordered potassium chloride 8 mEq (600 mg) oral capsule, extended release 1 capsule = 8 mEq, By Mouth, Daily, # 120 capsule, 0 Refills, Maintenance, 06/02/21 15:57:00 EDT, CR Capsule, Partial fill upon patient request if the prescription is for a schedule II opioid drug. Start Date: 06/02/21 Status: Ordered predniSONE 20 mg oral tablet 1 tablet = 20 mg, By Mouth, Daily, # 5 tablet, 0 Refills, Soft Stop, 06/26/21 7:59:00 EDT, Tablet, [facility]/pharmacy #[id number], Partial fill upon patient request if the prescription is for a schedule II opioid drug., 155, cm, 06/26/21 7:27:00 EDT, Height, 131.... Start Date: 06/26/21 Stop Date: 07/01/21 Status: Ordered propranolol 120 mg oral capsule, [...] 08/30/17 8:21:42 EDT, Route to Pharmacy Electronically, [id number], [facility]/pharmacy #[id number] Start Date: 08/30/17 Status: Ordered Tums 500 mg oral tablet, chewable 500 mg, 1, tablet, Chew, Every 4 hours, PRN, # 180 tablet, Refills 0, Tot. Refills 0, Maintenance, Dyspepsia, 06/21/18 11:05:15 EDT, Route to Pharmacy Electronically, [id number], [facility] Start Date: 06/21/18 Status: Ordered [...] WITH PRO LONGED DEPRESSIVE REACTION(Confirmed) 02/03/07 Active [facility] Emeral d Team Senior Level [...] DM (diabetes mellitus), type 2, uncontrolled(Confirmed) Active Vital Signs Most recent to oldest [Reference Range]: 1 Height 155 cm (07/07/21 9:06 AM) Weight 128.7 kg (07/07/21 9:06 AM) Pulse Rate [55-90 bpm] 88 bpm (07/07/21 9:06 AM) Body Mass Index [18.5-24.99] 53.57 *>HHI* (07/07/21 9:06 AM) Blood Pressure [90-138/55-84 mm Hg] 137/ 82mm Hg (07/07/21 9:06 AM) Respiratory Rate [16-30 br/min] 17 br/mi n (07/07/21 9:06 AM) Temperature [96.8-100.4 DegF] 98.7 DegF (07/07/21 9:06 AM) Temperature Route Temporal (07/07/21 9:06 AM) Social History Social History Type Response Smoking Status Former smoker; Other : quit 04/2015; entered on: 01/30/16 Sex
--- OUTSIDE RECORDS SUMMARY | 2022-08-31 00:56 | XMS_ITS | Continuity of Care Document ---
Author Name Unknown Organization [facility] Address [address] [place] [address]- Care Team Providers Care Pilot Plant Technician Name Role Phone Chaparrita Pizano DO Primary Care Physician [place] [facility] [place] 12/10/19 - 03/25/20 [facility] [address] [place] [address]- Discharge Disposition: A-D/C Home Attending Physician: Rosenda Hankins MD Admitting Physician: Rosenda Hankins MD Referring Physician: Shanika Leo MD Allergies, Adverse Reactions, Alerts Substance Reaction [...] 1 02/02/07 Given 1Admin Note: manufactured by [employer] Medications albuterol CFC free 90 mcg/inh inhalation aerosol 2, puffs, Inhalation, 4 times a day, PRN, # 75 Gm, Refills 0, Tot. Refills 0, Maintenance, 12/02/1919:00:05 EDT, Aerosol, Print Requisition Start Date: 12/01/18 Status: Ordered bisacodyl 5 mg oral delayed release tablet 1 tablet = 5 mg, By Mouth, Daily, Maintenance, 10/04/18 16:16:38 EDT, EC Tablet Start Date: 10/04/18 Status: Ordered Carafate 1 gm/10 ml oral suspension 10 mL = 1 Gm, By Mouth, 3 times a day before meals and bedtime, PRN heartburn, # 500 mL, 0 Refills,Maintenance, 06/06/18 17:44:58 EDT Start Date: 06/06/18 Stop Date: 07/04/18 Status: Ordered continue with BIPAP at night [...] Date: 11/17/17 Stop Date: 12/07/17 Status: Ordered docusate sodium 100 mg oral tablet 1 tablet = 100 mg, By Mouth, 2 times a day, Maintenance, 10/04/18 16:23:06 EDT, Tablet Start Date: 10/04/18 Status: Ordered Elmiron 100 mg oral capsule 1 capsule = 100 mg, By Mouth, 2 times a day, Maintenance, 10/04/18 16:20:24 EDT, Capsule Start Date: 10/04/18 Status: Ordered glipiZIDE 10 mg oral tablet 1 tablet = 10 mg, By Mouth, Daily, Maintenance, 10/04/18 16:18:23 EDT, Tablet Start Date: 10/04/18 Status: Ordered Imodium A-D 2 mg oral tablet 2 mg, 1, tablet, By Mouth, Every 4 hours, PRN, not to exceed 8 capsules, or 16 mg, in 24 hours, # 90 tablet, Refills 0, Tot. Refills 0, Maintenance, for loose stool, 05/05/18 9:38:51 EDT, Route to Pharmacy Electronically, [id number]... Start Date: 05/05/18 Status: Ordered Insulin Glargine Inj = 65 units, Subcutaneous Injection, Daily at bedtime, 0 Refills, Maintenance, 08/20/19 18:48:00 EDT, Injection Start Date: 08/20/19 Status: Ordered losartan 50 mg oral tablet [...] EST, Compound Start Date: 02/01/18 Status: Ordered oxybutynin 5 mg/24 hours oral tablet, extended release 1 tablet = 5 mg, By Mouth, 2 times a day, Maintenance, 10/04/18 16:19:53 EDT, ER Tablet Start Date: 10/04/18 Status: Ordered oxyCODONE 5 mg oral tablet 10 mg, 2, tablet, By Mouth, Every 6 hours, PRN, # 120 tablet, Refills 0, Tot. Refills 0, Maintenance, for pain, 03/04/20 8:13:00 EST, Route to Pharmacy Electronically, [facility]/pharmacy #[id number], Partial fill upon patient request, 155, cm, 08/20/19 16:31:00 E... Start Date: 03/04/20 Status: Ordered potassium chloride 8 mEq (600 [...] 08/30/17 8:21:42 EDT, Route to Pharmacy Electronically, [id number], [facility]/pharmacy #[id number] Start Date: 08/30/17 Status: Ordered tiZANidine 4 mg oral tablet 8 mg, 2, tablet, By Mouth, Every 8 hours, # 180 tablet, Refills 0, Maintenance, 07/14/19 6:52:00 EDT Start Date: 07/14/19 Status: Ordered Tums 500 mg oral tablet, chewable 500 mg, 1, tablet, Chew, Every 4 hours, PRN, # 180 tablet, Refills 0, Tot. Refills 0, Maintenance, Dyspepsia, 06/21/18 11:05:15 EDT, Route to Pharmacy Electronically, [id number], [facility] Start Date: 06/21/18 Status: Ordered Vitamin D3 2000 intl units oral capsule 1 capsule = 2,000 International_Units, By Mouth, 3 times a day, 0 Refills, Maintenance, 02/22/18 7:05:50 EST Start Date: 02/22/18 Status: Ordered Zantac = 150 mg, By Mouth, 2 times a day, 0 Refills, Maintenance, 05/04/18 7:04:21 EDT Start Date: 05/04/18 Status: Ordered Zofran ODT 4 mg oral [...] WITH PRO LONGED DEPRESSIVE REACTION(Confirmed) 02/03/07 Active [facility] Emeral d Team Senior Level [...]
--- OUTSIDE RECORDS SUMMARY | 2022-08-31 00:56 | XMS_ITS | Continuity of Care Document ---
Author Name Unknown Organization [facility] Address [address] [place] [address]- Care Team Providers Care Mobile Battery Technician Name Role Phone Jerica DOChaparrita Primary Care Physician [place] [facility] [place]20 [facility] [address] [place], [place] [address] Attending Physician: Jamie Gregorio Admitting Physician: AdmtrJamie Referring Physician: Admtr, Ar8 Allergies, Adverse Reactions, Alerts Substance Reaction Severity [...] PRN Pain Start Date: 04/04/20 Status: Ordered docusate sodium 100 mg oral tablet 1 tablet = 100 mg, By Mouth, 2 times a day, Maintenance, 10/04/18 16:23:06 EDT, Tablet Start Date: 10/04/18 Status: Ordered insulin glargine 100 units/mL subcutaneous solution = 25 units, Subcutaneous Injection, Daily at bedtime, # 12 mL, 0 Refills, Maintenance, 04/03/20 13:23:00 EST, Solution, [facility]/pharmacy #[id number], Partial fill upon patient request if the [...] 0 Refills, Soft Stop, 04/09/20 13:16:00 EST, [facility], Partial fill upon patient [...] 0 Refills, Maintenance, 04/02/20 9:29:00 EST, Tablet, [facility], Partial fill upon patient request if the prescription is for a schedule II opioid drug., 154.94, cm, 0... Start Date: 04/02/20 Status: Ordered oxyCODONE 10 mg oral tablet 2 tablet = 20 mg, By Mouth, Every 6 hours, PRN Pain , Severe, take 1 tab for less severe pain, # 56tablet, 0 Refills, Maintenance, 05/09/20 16:38:00 EDT, Tablet, [facility]/pharmacy #[id number], Partial fill upon patient request if the prescription is for a sched... Start Date: 05/09/20 Status: Ordered oxyCODONE 20 mg oral tablet, [...] 08/30/17 8:21:42 EDT, Route to Pharmacy Electronically, [id number], [facility]/pharmacy #[id number] Start Date: 08/30/17 Status: Ordered Tums 500 mg oral tablet, chewable 500 mg, 1, tablet, Chew, Every 4 hours, PRN, # 180 tablet, Refills 0, Tot. Refills 0, Maintenance, Dyspepsia, 06/21/18 11:05:15 EDT, Route to Pharmacy Electronically, [id number], [facility] Start Date: 06/21/18 Status: [...] WITH PRO LONGED DEPRESSIVE REACTION(Confirmed) 02/03/07 Active [facility] Emeral d Team Senior Level [...]
--- OUTSIDE RECORDS SUMMARY | 2022-08-31 00:56 | XMS_ITS | Continuity of Care Document ---
Author Name Unknown Organization [facility] ter Address [address] [place] [id number]- Care Team Providers Care Lead Software Test Engineer Name Role Phone JericaChaparrita apple DO Primary Care Physician Encounter [facility] [place] Date(s): 02/03/21 - 02/05/[address] [address]- Encounter Diagnosis Abdominal pain(Final) - 02/04/21 Nausea(Final) - 02/04/21 Diarrhea(Final) - 02/04/21 Discharge Disposition: A-D/C Home Attending Physician: Chrissy Yung MD Admitting Physician: Bernarda SHERIFF, Nancy Mary Referring Physician: Not on Staff, Referring MD Allergies, Adverse Reactions, Alerts Substance Reaction Severity Status doxycycline mouth swelling Active ceftriaxone hives Active morphine 1, 2, 3 hives Active penicillin throat swelling Rash Persistent Severe Active famotidine vomiting Active iodine topical swelling itching Active Pepcid vomitng Active Zofran 4 can only be given w/ benadryl hives Active Tylenol hives Active Levaquin tingling in mouth, rash Acti ve Compazine shortness of breath Active Reglan severe restless legs Active Adhesive [...] to receive vaccine 2Admin Note: manufactured by [employer] Medications albuterol 0.042% inhalation solution 3 [...] EC Tablet Start Date: 10/04/18 Status: Ordered Dilaudid Inj 1 mg, Injection, IV Push Slowly, Every 4 hours, PRN for Pain , Severe, Routine, 02/04/21 8:55:00 EST Start Date: 02/04/21 Stop Date: 02/06/21 Status: Discontinued Imitrex 50 mg oral tablet 1 tablet = 50 mg, By Mouth, Daily, PRN for migraine headache, may repeat dose after 2 hours up to amaximum of 2, # 18 tablet, 0 Refills, Acute 08/31/21 13:21:00 EDT, 08/31/20 13:21:00 EDT, Tablet, [facility]/pharmacy #[id number], Partial fill upon patient request... Start Date: [...] EDT, 08/31/20 13:21:00 EDT, Syrup, [facility]/pharmacy #[id number], Partial fill upon [...] 0 Refills, Maintenance, 04/02/20 9:29:00 EST, Tablet, [facility], Partial fill upon patient request [...] EDT, Supply Start Date: 10/08/20 Status: Ordered oxyCODONE 5 mg oral capsule 1 capsule = 5 mg, By Mouth, 3 times a day, PRN Pain , Severe, for 4 days, # 10 capsule, 0 Refills, Acute 02/09/21 11:50:00 EST, 02/05/21 11:50:00 EST, Partial fill upon patient request if the prescription is for a schedule II opioid drug. Start Date: 02/05/21 Stop Date: 02/09/21 Status: Ordered propranolol 120 mg oral capsule, [...] 08/30/17 8:21:42 EDT, Route to Pharmacy Electronically, [id number], [facility]/pharmacy #[id number] Start Date: 08/30/17 Status: Ordered Tums 500 mg oral tablet, chewable 500 mg, 1, tablet, Chew, Every 4 hours, PRN, # 180 tablet, Refills 0, Tot. Refills 0, Maintenance, Dyspepsia, 06/21/18 11:05:15 EDT, Route to Pharmacy Electronically, [id number], [facility] Start Date: 06/21/18 Status: [...] WITH PRO LONGED DEPRESSIVE REACTION(Confirmed) 02/03/07 Active [facility] Emeral d Team Senior Level [...] oldest [Reference Range]: 1 2 3 Height 155 cm (02/05/21 11:35 AM) 155 cm (02/05/21 7:51 AM) 155 cm (02/05/21 5:36 AM) Weight 131.3 kg (02/04/21 12:22 AM) Oxygen Saturation [94-100 %] 100 % (02/05/21 11:35 AM) 100 % (02/05/21 7:51 AM) 97 % (02/05/21 5:36 AM) Pulse Rate [55-90 bpm] 71 bpm (02/05/21 11:35 AM) 66 bpm (02/05/21 7:51 AM) 64 bpm (02/05/21 5:36 AM) Body Mass Index [18.5-24.99] 54.65 *>HHI* (02/04/21 12:22 AM) Blood Pressure [90-138/55-84 mm Hg] 134/90mm Hg (02/05/21 11:35 AM) 112/83mm Hg (02/05/21 7:51 AM) 114/71mm Hg (02/05/21 5:36 AM) Respiratory Rate [16-30 br/min] 16 br/min (02/05/21 1:34 PM) 16 br/min (02/05/21 1:04 PM) 18 br/min (02/05/21 11:35 AM) Temperature [96.8-100.4 DegF] 97.9 DegF (02/05/21 11:35 AM) 97.6 DegF (02/05/21 7:51 AM) 97.8 DegF (02/05/21 5:36 AM) Mode of Delivery (Oxygen) Room air (02/05/21 11:35 AM) Room air (02/05/21 7:51 AM) Room air (02/05/21 5:36 AM) Blood pressure sites Arm, right (02/05/21 11:35 AM) Arm, right (02/05/21 7:51 AM) Arm, right (02/05/21 5:36 AM) Temperature Route Oral (02/05/21 11:35 AM) Oral (02/05/21 7:51 AM) Oral (02/05/21 5:36 AM) Dry Weight 131.3 kg (02/04/21 12:22 AM) Social History Social History Type Response Smoking Status Former smoker; Other : quit 04/2015; entered on: 01/30/16 Sex Female
--- OUTSIDE RECORDS SUMMARY | 2022-08-31 00:56 | XMS_ITS | Continuity of Care Document ---
Author Name Unknown Organization [facility] ter Address [address] [place] [id number]- Care Team Providers Care [employer] Team Leader Name Role Phone Jerica DOChaparrita Primary Care Physician [place] [facility] [place] - 05/21/22 [facility] [address] [place] [id number]- Attending Physician: Norman Redmond MD Admitting Physician: Norman Redmond MD Referring Physician: Shanika Leo MD Allergies, Adverse Reactions, Alerts Substance Reaction Severity Status doxycycline mouth swelling Active ceftriaxone hives Active penicillin throat swelling Rash Persistent Severe Active famotidine vomiting Active morphine 1, 2, 3 hives Active iodine topical swelling itching Active melatonin Active Zofran 4 can only be given w/ benadryl hives Active Levaquin tingling in mouth, rash Acti ve Tylenol hives Active Adhesive Bandage skin excoriation hives Active Contrast Dye hives itchy throat itchy Persistent Mild Active Seafood Anaphylactic shock d ue to adverse food reaction Severe Active Nexium diarrhea, vomitting Active Nicotine Patch ana cardia Active Pepcid vomitng Active Compazine shortness of breath Active Reglan severe restless legs Active Latex vag rash Active Lyrica Angioedema Active Lantiseptic Skin Protectant [...] to receive vaccine 2Admin Note: manufactured by [employer] Medications albuterol 0.042% inhalation solution 3 [...] oral capsule 1 capsule = 50 mg, IV Push, 4 times a day, PRN as needed [...] tablet, Refills 0, Tot. Refills 0, Maintenance, 03/12/22 12:08:00 EST, Route to Pharmacy Electronically, [facility], Partial fill upon patient request if the prescr... Start Date: 03/12/22 Stop Date: 04/11/22 Status: Ordered dextromethorphan-guaifenesin 10 mg-100 mg/5 mL oral liquid 10 mL, By Mouth, 2 times a day, PRN Cough, Take as needed for cough up to 2 times a day., # 120 mL,0 Refills, Acute 03/09/23 23:00:00 EST, 03/12/22 12:09:00 EST, Syrup, [facility], Partial fill upon patient request if the prescription i... Start Date: 03/12/22 Stop Date: 03/09/23 Status: Ordered ENSURE CLEAR LIQD ENSURE CLEAR LIQD, 1 bottle, 3 times a day with meals, 0 Refills, Maintenance, 02/27/22 20:23:00 EST Start Date: 02/27/22 Status: Ordered ENSURE CLEAR LIQD ENSURE CLEAR LIQD, 0 Refills, Maintenance, 05/08/22 19:19:00 EDT Start Date: 05/08/22 Status: Ordered HYDROmorphone 1 mg/mL oral liquid 4 mL = 4 mg, By Mouth, Every 6 hours, PRN as needed for pain, 0 Refills, Maintenance, 12/23/21 15:07:00 EST, Liquid, Partial fill upon patient request if the prescription is for a schedule II opioid drug. Start Date: 12/23/21 Status: Ordered HYDROmorphone 1 mg/mL oral liquid TAKE 4 ML BY MOUTH EVERY 6 HOURS NEEDED Start Date: 05/08/22 Status: Ordered Insulin Glargine = 35 units, Subcutaneous Injection, 2 times a day, 0 Refills, Maintenance, 11/09/21 18:35:00 EDT, Partial fill upon patient request if the prescription is for a schedule II opioid drug. Start Date: 11/09/21 Status: Ordered lidocaine 5% topical film See Instructions, PRN Pain , Moderate, Topically Daily as needed for pain remove patches after 12 hours, # 30 patch, 0 Refills, Acute 03/09/23 23:00:00 EST, 03/12/22 12:10:00 EST, Patch, [facility], Partial fill upon patient request if... Start Date: 03/12/22 Stop Date: 03/09/23 Status: Ordered LORazepam 0.5 mg oral tablet [...] mg oral tablet, disintegrating = 4 mg, IV Push, Every 6 hours, PRN Nausea & Vomiting, # 90 tablet, 0 Refills, Maintenance, 04/02/20 9:29:00 EST, [facility], Partial fill upon patient request if the prescription is for a schedule II opioid drug., 154.94, cm, 04/02/20 8... Start Date: 04/02/20 Status: Ordered pantoprazole 40 [...] at bedtime, # 30 tablet, Refills 0, Tot. Refills 0, Maintenance, 03/12/22 12:06:00 EST, Route to Pharmacy Electronically, [facility], Partial fill uponpatient request if the prescription is for a schedu... Start Date: 03/12/22 Status: Ordered sucralfate 1 gm oral tablet TAKE 1 TABLET BY MOUTH THREE TIMES A DAY BEFORE MEALS AND AT BEDTIME Start Date: 05/08/22 Status: Ordered SUMAtriptan 50 mg oral tablet [...] 06/21/18 11:05:15 EDT, Route to Pharmacy Electronically, [id number], [facility] Start Date: 06/21/18 Status: Ordered Ventolin HFA 108 mcg/inh inhalation aerosol with adapter 2 puffs, Inhalation, 4 times a day, PRN for wheezing, # 18 Gm, 0 Refills, Maintenance, 05/08/22 19:20:00 EDT, Aerosol, Partial fill upon patient request if the prescription is for a schedule II opioid drug. Start Date: 05/08/22 Status: Ordered Vitamin D3 2000 intl units [...] WITH PROLONGED DEPRESSIVE REACTION Confirmed 02/03/[address] [facility] Team Senior Level Patient Confirmed Active ASTHMA [...] : quit 04/2015; entered on: 01/30/16 Sex Patient Care team information Care Team Personnel Name: Lola Belcher RN Position: [facility] RN Member Role: Primary Care Nurse Name: Jose Enrique Saul RN Position: [facility] RN Member Role: Primary Care Nurse Name: Symone Mckinnon RN Position: [facility] RN Member Role: Primary Care Nurse Name: Carolyn Pelaez RN Position: [facility] RN Member Role: Primary Care Nurse Name: Fanny Mixon RN Position: [facility] ED RN W/OE and Tasks Member Role: Primary Care Nurse Name: María Ashford RN Position: [facility] AMB Nurse Member Role: Primary Care Nurse Name: Chanelle Hernandez RN Position: [facility] AMB Nurse Member Role: Primary Care Nurse Name: Estelle García RN Position: [facility] RN Member Role: Primary Care Nurse Name: Deanne Rangel RN Position: [facility] RN Member Role: Primary Care Nurse Name: Carine Jimenez RN Position: [facility] SN RN Member Role: Primary Care Nurse Name: Jenelle Campo RN Position: [facility] RN Member Role: Primary Care Nurse Name: Keyla Godwin RN Position: [facility] RN Member Role: Primary Care Nurse Name: Yeimi Devine RN Position: [facility] RN Member Role: Primary Care Nurse Name: Mary Yan RN Position: [facility] RN Member Role: Primary Care Nurse Name: Iliana Pop RN Position: [facility] RN Member Role: Primary Care Nurse Name: Alcides Dueñas RN Position: [facility] RN Member Role: Primary Care Nurse Name: Lisa Beatty Position: [facility] Outreach Member Role: Lifetime Consulting Physician Name: Armida Beatty RN Position: [facility] RN Member Role: Primary Care Nurse Name: Deonna Beatty RN Position: [facility] RN Member Role: Primary Care Nurse Name: Roque Villasenor MD Position: [facility] Renal MD Member Role: Lifetime Consulting Physician Address: Address: [address] [place] [address], [address] [facility] [place] [address]- Name: Lashon Lovell RN Position: [facility] SN RN Member Role: Primary Care Nurse Name: Kristi Giraldo RN Position: [facility] RN Supv Member Role: Primary Care Nurse Name: Jerrod Casarez RN Position: [facility] RN Member Role: Primary Care Nurse Name: Shane Riley RN Position: [facility] RN Member Role: Primary Care Nurse Name: Isac Plascencia RN Position: [facility] RN Member Role: Primary Care Nurse Name: Rosalva Martin RN Position: [facility] RN Member Role: Primary Care Nurse Name: Sheela Matt RN Position: [facility] RN Member Role: Primary Care Nurse Name: Armida Ochoa RN Position: [facility] RN Member Role: Primary Care Nurse Name: Felipa Diehl RN Position: [facility] HBO Wound Member Role: Primary Care Nurse Name: Evelin Powell RN Position: [facility] AMB Nurse Member Role: Primary Care Nurse Name: Donald Murphy MD Position: [facility] Renal MD Member Role: Lifetime Consulting Physician Address: Address: [address] [place] [address] [address] [facility] [place] [address]- Name: Deonna Pendleton RN Position: [facility] RN Member Role: Primary Care Nurse Name: Pili Kaba RN Position: [facility] RN Member Role: Primary Care Nurse Name: Alejandro Yanes RN Position: [facility] RN Member Role: Primary Care Nurse Name: Stacey Díaz RN Position: [facility] SN RN Member Role: Primary Care Nurse Name: Jac Reese RN Position: [facility] RN Member Role: Primary Care Nurse Name: Celestine Schwartz RN Position: [facility] RN Member Role: Primary Care Nurse Name: Neeta Carpenter RN Position: [facility] RN Member Role: Primary Care Nurse Name: Susie Estrada RN Position: [facility] RN Member Role: Primary Care Nurse Name: Inna Cantor RN Position: [facility] RN Member Role: Primary Care Nurse Name: Chaparrita Pizano DO Position: [facility] Physician (General Medicine) Member Role: PCP Address: Address: [address] [place] [address]- Name: Ning Rolon RN Position: [facility] RN Member Role: Primary Care Nurse Name: Rubi Carrasco RN Position: [facility] SN RN Member Role: Primary Care Nurse Name: Lauryn Holden RN Position: [facility] RN Member Role: Primary Care Nurse Name: Jones Cervantes RN Position: [facility] RN Member Role: Primary Care Nurse Name: Olivia Caputo RN Position: [facility] RN Member Role: Primary Care Nurse Name: Brooklyn Jim RN Position: [facility] RN Member Role: Primary Care Nurse Name: Kimberly Santoro RN Position: [facility] RN Member Role: Primary Care Nurse Name: Haley Diamond RN Position: [facility] RN Member Role: Primary Care Nurse Name: Ashley Meléndez NP Position: [facility] PCO Associate Professional Member Role: Primary Care Nurse Address: Address: [address] [place] [address] [address] [place] [address]- [place] Name: Siomara Patricia RN Position: [facility] PCO RN Member Role: Primary Care Nurse Name: Neeta Painter RN Position: [facility] RN Member Role: Primary Care Nurse Name: Bailey Espinal RN Position: [facility] AMB Nurse Member Role: Primary Care Nurse Name: Brooklyn Ramsey RN Position: [facility] RN Member Role: Primary Care Nurse Name: Keyla Bright RN Position: [facility] RN Member Role: Primary Care Nurse Name: Lesli Corcoran RN Position: [facility] RN Member Role: Primary Care Nurse Name: Beverley Tatum RN Position: [facility] RN Member Role: Primary Care Nurse Name: Mainor Devries RN Position: [facility] RN Member Role: Primary Care Nurse Name: Yarely Richards RN Position: [facility] Lpn Member Role: Primary Care Nurse Name: Oralia Massey RN Position: [facility] RN Member Role: Primary Care Nurse Name: Cassie Villanueva RN Position: [facility] RN Member Role: Primary Care Nurse Name: Taiwo Mcgregor RN Position: [facility] RN Member Role: Primary Care Nurse Name: Cally Funes RN Position: [facility] SN RN Member Role: Primary Care Nurse Name: Lisa Blanton RN Position: [facility] Lpn Member Role: Primary Care Nurse Name: Joel Blanton RN Position: [facility] RN Member Role: Primary Care Nurse Name: Danica Stuart RN Position: [facility] AMB Nurse Member Role: Primary Care Nurse Name: Virginia Bacon RN Position: [facility] RN Member Role: Primary Care Nurse Name: Shruthi Ray RN Position: [facility] Onco RN Member Role: Primary Care Nurse Name: Abbe Choe RN Position: [facility] RN Supv Member Role: Primary Care Nurse Name: Farideh Cat LPN Position: [facility] RN Member Role: Primary Care Nurse Name: Janis Morris RN Position: [facility] Lpn Member Role: Primary Care Nurse Name: Darrian Chang RN Position: [facility] Lpn Member Role: Primary Care Nurse Name: Josef Woods RN Position: [facility] RN Member Role: Primary Care Nurse Name: Siomara Raphael RN Position: [facility] RN Member Role: Primary Care Nurse Name: Jerry Mcneill RN Position: [facility] RN Member Role: Primary Care Nurse Care Team Related Persons Name: IVAN VILLASENOR Address: [place] [address] Name: REYNALDO KAUR Address: [address] [place] [address] Name: EMMA SERRANO Address: home [address] [address] Name: PATRICK MATA Address: home [address] [place] [address] Name: FARIDEH POPE Address: [place] [address]
--- OUTSIDE RECORDS SUMMARY | 2022-08-31 00:56 | XMS_ITS | Continuity of Care Document ---
Author Name Unknown Organization [facility] Address [address] [place] [address] [address] [place] [address]- Care Team Providers Care Certified Lactation Educator Name Role Phone Chaparrita Pizano DO Primary Care Physician Encounter [facility] [place] Date(s): 03/20/20 - 04/27/20 [facility] [address] [place] [address]- Attending Physician: Salvador SHERIFF, Sarah Reid Referring Physician: Chaparrita Pizano DO Allergies, Adverse [...] Patch ana cardia Active Lyrica Angioedema Active darrick SHERIFF, tolerates with diphenhydramine 2Tolerates [...] 1 02/02/07 Given 1Admin Note: manufactured by [employer] Medications albuterol 0.042% inhalation solution 3 [...] Acute05/02/20 9:28:00 EDT, 04/02/20 9:28:00 EST, Tablet, [facility], Partial fill upon patient request [...] mL, 1 Refills, Acute 05/07/20 0:00:00 EDT, 02/24/21 6:53:00 EST, Liquid, [facility], Partial fill upon patient request if [...] 0 Refills, Maintenance, 04/03/20 13:23:00 EST, Solution, [id number], Partial fill upon patient [...] Every 6 hours, PRN Pain , Severe, # 420 mL, 0 Refills, Maintenance, 04/15/20 11:12:00 EST, Solution, [facility] #[id number], Partial fill upon patient request if the prescriptionis for a schedule II opioid drug., 154, cm, ... Start Date: 04/15/20 Status: Ordered naloxone 4 mg/0.1 mL nasal spray = 4 mg, Nares, Both, Once, # 2 each, 0 Refills, Soft Stop, 04/09/20 13:16:00 EST, [facility], Partial fill upon patient [...] 0 Refills, Maintenance, 04/02/20 9:29:00 EST, Tablet, [facility], Partial fill upon patient request if the prescription is for a schedule II opioid drug., 154.94, cm, 0... Start Date: 04/02/20 Status: Ordered oxyCODONE 10 mg oral tablet 2 tablet = 20 mg, By Mouth, Every 6 hours, PRN Pain , Severe, take 1 tab for less severe pain, # 56tablet, 0 Refills, Maintenance, 04/22/20 14:36:00 EST, Tablet, [facility] #[id number], Partial fill upon patient request if the prescription is for a sched... Start Date: 04/22/20 Status: Ordered OxyCONTIN 10 mg oral tablet, extended release 10 mg, 1, tablet, By Mouth, Every 12 hours, # 60 tablet, Refills 0, Tot. Refills 0, Maintenance, 04/02/20 9:32:00 EST, Route to Pharmacy Electronically, [facility], Partial fill upon patient [...] Acute 04/30/20 0:00:00 EDT, 04/02/20 9:33:00 EST, [facility], Partial fill upon patient [...] 08/30/17 8:21:42 EDT, Route to Pharmacy Electronically, [id number], [facility] #[id number] Start Date: 08/30/17 Status: Ordered Tums 500 mg oral tablet, chewable 500 mg, 1, tablet, Chew, Every 4 hours, PRN, # 180 tablet, Refills 0, Tot. Refills 0, Maintenance, Dyspepsia, 06/21/18 11:05:15 EDT, Route to Pharmacy Electronically, [id number], [facility] Start Date: 06/21/18 Status: [...] WITH PRO LONGED DEPRESSIVE REACTION(Confirmed) 02/03/07 Active [facility] Emer[facility] d Team Senior Level [...]
--- OUTSIDE RECORDS SUMMARY | 2022-08-31 00:56 | XMS_ITS | Continuity of Care Document ---
Author Name Unknown Organization [facility] ter Address [address] [place] [address]- Care Team Providers Care Enamel Drier Name Role Phone Darryl Pizano DOdavidradha Gupta Primary Care Physician [place] [facility] [place] - 02/12/[address] [address]- Attending Physician: Donald Murphy MD Admitting Physician: [...] to receive vaccine 2Admin Note: manufactured by [employer] Medications albuterol 0.042% inhalation solution 3 [...] 09/08/21 13:21:00 EDT, Route to Pharmacy Electronically, [facility], Partial fill upon patient [...] 0 Refills, Maintenance, 04/02/20 9:29:00 EST, Tablet, [facility], Partial fill upon patient request [...] 06/21/18 11:05:15 EDT, Route to Pharmacy Electronically, [id number], [facility] Start Date: 06/21/18 Status: Ordered [...] WITH PROLONGED DEPRESSIVE REACTION Confirmed 02/03/07 Active [facility] [place] Team Senior Level Patient Confirmed Active [facility] [...] Team Personnel Name: Lola Belcher RN Position: [facility] RN Member Role: Primary Care Nurse Name: Jose Enrique Saul RN Position: [facility] RN Member Role: Primary Care Nurse Name: Symone Mckinnon RN Position: [facility] RN Member Role: Primary Care Nurse Name: Carolyn Pelaez RN Position: [facility] RN Member Role: Primary Care Nurse Name: Deanna Garcia RN Position: [facility] RN Member Role: Primary Care Nurse Name: Fanny Mixon RN Position: [facility] ED RN W/OE and Tasks Member Role: Primary Care Nurse Name: María Ashford RN Position: [facility] AMB Nurse Member Role: Primary Care Nurse Name: Chanelle Hernandez RN Position: [facility] PCO RN Member Role: Primary Care Nurse Name: Estelle García RN Position: [facility] RN Member Role: Primary Care Nurse Name: Deanne Rangel RN Position: [facility] RN Member Role: Primary Care Nurse Name: Carine Jimenez RN Position: [facility] SN RN Member Role: Primary Care Nurse Name: Jenelle Campo RN Position: [facility] RN Member Role: Primary Care Nurse Name: Keyla Godwin RN Position: [facility] RN Member Role: Primary Care Nurse Name: Yeimi Devine RN Position: [facility] RN Member Role: Primary Care Nurse Name: Mary Yan RN Position: [facility] RN Member Role: Primary Care Nurse Name: Iliana Pop RN Position: [facility] RN Member Role: Primary Care Nurse Name: Alcides Dueñas RN Position: [facility] RN Member Role: Primary Care Nurse Name: Lisa Beatty Position: [facility] Outreach Member Role: Lifetime Consulting Physician Name: Armida Beatty RN Position: [facility] RN Member Role: Primary Care Nurse Name: Roque Villasenor MD Position: [facility] Renal MD Member Role: Lifetime Consulting Physician Address: Address: [address] [place] [address], [address] [facility] [place] [address] Name: Lashon Lovell RN Position: [facility] SN RN Member Role: Primary Care Nurse Name: Kristi Giraldo RN Position: [facility] RN Supv Member Role: Primary Care Nurse Name: Jerrod Casarez RN Position: [facility] RN Member Role: Primary Care Nurse Name: Rosalva Martin RN Position: [facility] RN Member Role: Primary Care Nurse Name: Armida Ochoa RN Position: [facility] RN Member Role: Primary Care Nurse Name: Deonna Murillo RN Position: [facility] RN Member Role: Primary Care Nurse Name: Felipa Diehl RN Position: [facility] HBO Wound Member Role: Primary Care Nurse Name: Evelin Powell RN Position: [facility] AMB Nurse Member Role: Primary Care Nurse Name: Deonna Pendleton RN Position: [facility] RN Member Role: Primary Care Nurse Name: Pili Kaba RN Position: [facility] GAGANDEEP RN W/OE and Tasks Member Role: Primary Care Nurse Name: Alejandro Yanes RN Position: [facility] RN Member Role: Primary Care Nurse Name: Stacey Díaz RN Position: [facility] SN RN Member Role: Primary Care Nurse Name: Jac Reese RN Position: [facility] RN Member Role: Primary Care Nurse Name: Celestine Schwartz RN Position: [facility] RN Member Role: Primary Care Nurse Name: Neeta Carpenter RN Position: [facility] RN Member Role: Primary Care Nurse Name: Susie Estrada RN Position: [facility] RN Member Role: Primary Care Nurse Name: Inna Cantor RN Position: [facility] RN Member Role: Primary Care Nurse Name: Chaparrita Pizano DO Position: [facility] Physician (General Medicine) Member Role: PCP Address: Address: [address] [place] [address]- Name: Ning Rolon RN Position: [facility] RN Member Role: Primary Care Nurse Name: Rubi Carrasco RN Position: [facility] SN RN Member Role: Primary Care Nurse Name: Lauryn Holden RN Position: [facility] RN Member Role: Primary Care Nurse Name: Shen Silvestre RN Position: [facility] RN Member Role: Primary Care Nurse Name: Jones Cervantes RN Position: [facility] RN Member Role: Primary Care Nurse Name: Olivia Caputo RN Position: [facility] RN Member Role: Primary Care Nurse Name: Brooklyn Jim RN Position: [facility] RN Member Role: Primary Care Nurse Name: Kimberly Santoro RN Position: [facility] RN Member Role: Primary Care Nurse Name: Haley Diamond RN Position: [facility] RN Member Role: Primary Care Nurse Name: Ashley Meléndez NP Position: [facility] PCO Associate Professional Member Role: Primary Care Nurse Address: Address: [address] [place] [address]- Name: Siomara Patricia [facility] RN Member Role: Primary Care Nurse Name: Neeta Painter RN Position: [facility] RN Member Role: Primary Care Nurse Name: Edith Drummond RN Position: [facility] RN Member Role: Primary Care Nurse Name: Bailey Espinal RN Position: [facility] AMB Nurse Member Role: Primary Care Nurse Name: Brooklyn Ramsey RN Position: [facility] RN Member Role: Primary Care Nurse Name: Keyla Bright RN Position: [facility] RN Member Role: Primary Care Nurse Name: Beverley Tatum RN Position: [facility] RN Member Role: Primary Care Nurse Name: Mainor Devries RN Position: [facility] RN Member Role: Primary Care Nurse Name: Yarely Richards RN Position: [facility] [employer] Recorder Member Role: Primary Care Nurse Name: Oralia Massey RN Position: [facility] RN Member Role: Primary Care Nurse Name: Rich WILSON pee Position: [facility] RN Member Role: Primary Care Nurse Name: Taiwo Mcgregor RN Position: [facility] RN Member Role: Primary Care Nurse Name: Cally Funes RN Position: [facility] SN RN Member Role: Primary Care Nurse Name: Marina Osorio Position: [facility] RN Member Role: Primary Care Nurse Name: Lisa Blanton RN Position: [facility] [employer] Recorder Member Role: Primary Care Nurse Name: Danica Stuart RN Position: [facility] AMB Nurse Member Role: Primary Care Nurse Name: Shruthi Ray RN Position: [facility] RN Member Role: Primary Care Nurse Name: Abbe Choe RN Position: [facility] RN Supv Member Role: Primary Care Nurse Name: Farideh Cat LPN Position: [facility] RN Member Role: Primary Care Nurse Name: Janis Morris RN Position: [facility] [employer] Recorder Member Role: Primary Care Nurse Name: Darrian Chang RN Position: [facility] [employer] Recorder Member Role: Primary Care Nurse Name: Jerry Mcneill RN Position: [facility] RN Member Role: Primary Care Nurse Care Team Related Persons Name: IVAN VILLASENOR Address: [place] [address] Name: REYNALDO KAUR Address: home [address] [place] [address] Name: EMMA SERRANO Address: home [address] [address] Name: PATRICK MATA Address: home [address] [place] [address] Name: FARIDEH POPE Address: [place] [address]
--- OUTSIDE RECORDS SUMMARY | 2022-08-31 00:56 | XMS_ITS | Continuity of Care Document ---
Author Name Unknown Organization [facility] Address [address] [place] [address]- Care Team Providers Care Art History Instructor Name Role Phone JericaChaparrita apple DO Primary Care Physician Encounter [facility] Date(s): 06/13/20 - 07/13/20 [facility]ACH[facility]PER[facility] Oncology [address] [place], [place] [address] Allergies, Adverse Reactions, Alerts Substance Reaction Severity [...] 1 02/02/07 Given 1Admin Note: manufactured by [employer] Medications albuterol 0.042% inhalation solution 3 [...] EDT, Tablet Start Date: 10/04/18 Status: Ordered fluconazole 150 mg oral tablet 1 tablet = 150 mg, By Mouth, Once, repeat dose if still having symptoms in 72 hours, # 2 each, 0 Refills, Soft Stop, 06/23/20 10:08:00 EDT, Tablet, [id number], Partial fill upon patient request if the prescription is for a schedule II opioid d... Start Date: 06/23/20 Status: Ordered insulin glargine 100 units/mL subcutaneous solution = 25 units, Subcutaneous Injection, Daily at bedtime, # 12 mL, 0 Refills, Maintenance, 04/03/20 13:23:00 EST, Solution, [id number], Partial fill upon patient request if [...] 0 Refills, Soft Stop, 04/09/20 13:16:00 EST, [facility], Partial fill upon patient [...] 0 Refills, Maintenance, 04/02/20 9:29:00 EST, Tablet, [facility], Partial fill upon patient request if the prescription is for a schedule II opioid drug., 154.94, cm, 0... Start Date: 04/02/20 Status: Ordered oxyCODONE 10 mg oral tablet See Instructions, 1 tablet By Mouth 5 times per day for 7 days, per pain services recommedations, #35 tablet, 0 Refills, Maintenance, 06/20/20 8:49:00 EDT, Tablet, [id number], Partial fill upon patient request if [...] 08/30/17 8:21:42 EDT, Route to Pharmacy Electronically, [id number], [id number] Start Date: 08/30/17 Status: Ordered Tums 500 mg oral tablet, chewable 500 mg, 1, tablet, Chew, Every 4 hours, PRN, # 180 tablet, Refills 0, Tot. Refills 0, Maintenance, Dyspepsia, 06/21/18 11:05:15 EDT, Route to Pharmacy Electronically, [id number], [facility] Start Date: 06/21/18 Status: Ordered [...] WITH PRO LONGED DEPRESSIVE REACTION(Confirmed) 02/03/07 Active [facility] Team Senior Level [...]
--- OUTSIDE RECORDS SUMMARY | 2022-08-31 00:56 | XMS_ITS | Continuity of Care Document ---
Author Name Unknown Organization [facility] Address [address] [place] [address]- Care Team Providers Care Radiology Rn Name Role Phone JericaChaparrita apple DO Primary Care Physician Encounter [facility] Date(s): 05/23/20 - 06/22/20 [facility] [address] [place], [place] [address] Allergies, Adverse Reactions, [...] 1 02/02/07 Given 1Admin Note: manufactured by [employer] Medications albuterol 0.042% inhalation solution 3 [...] 0 Refills, Maintenance, 04/03/20 13:23:00 EST, Solution, [id number], Partial fill upon patient request if the [...] 0 Refills, Soft Stop, 04/09/20 13:16:00 EST, [facility], Partial fill upon patient request [...] 0 Refills, Maintenance, 04/02/20 9:29:00 EST, Tablet, [facility], Partial fill upon patient request if the prescription is for a schedule II opioid drug., 154.94, cm, 0... Start Date: 04/02/20 Status: Ordered oxyCODONE 10 mg oral tablet See Instructions, 1 tablet By Mouth 5 times per day for 7 days, per pain services recommedations, #35 tablet, 0 Refills, Maintenance, 06/20/20 8:49:00 EDT, Tablet, [facility] #[id number], Partial fill upon patient request if the [...] 08/30/17 8:21:42 EDT, Route to Pharmacy Electronically, [id number], [facility][id number] Start Date: 08/30/17 Status: Ordered Tums 500 mg oral tablet, chewable 500 mg, 1, tablet, Chew, Every 4 hours, PRN, # 180 tablet, Refills 0, Tot. Refills 0, Maintenance, Dyspepsia, 06/21/18 11:05:15 EDT, Route to Pharmacy Electronically, [id number], [facility] Start Date: 06/21/18 Status: Ordered [...] WITH PRO LONGED DEPRESSIVE REACTION(Confirmed) 02/03/07 Active [facility] Emer[facility] Team Senior Level [...]
--- OUTSIDE RECORDS SUMMARY | 2022-08-31 00:56 | XMS_ITS | Continuity of Care Document ---
Author Name Unknown Organization [facility] Address [address] [place] [address]- Care Team Providers Care Trimming Machine Operator Name Role Phone Jerica Chaparrita DO Primary Care Physician ( [phone] Encounter [facility] [place] Date(s): 05/20/20 - 06/19/20 [facility] [address] [place], [place] [address] Allergies, Adverse Reactions, Alerts Substance [...] Patch ana cardia Active [facility] Angioedema Active 1per , tolerates with diphenhydramine 2Tolerates [...] Refills, Maintenance, 04/03/20 13:23:00 EST, Solution, [facility] #[id number], Partial fill upon patient request if the [...] 0 Refills, Soft Stop, 04/09/20 13:16:00 EST, [facility], Partial fill upon patient [...] 0 Refills, Maintenance, 04/02/20 9:29:00 EST, Tablet, [facility], Partial fill upon patient request if the prescription is for a schedule II opioid drug., 154.94, cm, 0... Start Date: 04/02/20 Status: Ordered oxyCODONE 10 mg oral tablet 1 tablet = 10 mg, By Mouth, Every 4 hours, PRN Pain , Severe, # 42 tablet, 0 Refills, Maintenance, 06/12/20 16:41:00 EDT, Tablet, [facility]acy #[id number], Partial fill upon patient request if the prescription is for a schedule II opioid drug. last refill... Start Date: 06/12/20 Stop Date: 06/19/20 Status: Ordered oxyCODONE 20 mg oral tablet, [...] 08/30/17 8:21:42 EDT, Route to Pharmacy Electronically, [id number], [facility] #[id number] Start Date: 08/30/17 Status: Ordered Tums 500 mg oral tablet, chewable 500 mg, 1, tablet, Chew, Every 4 hours, PRN, # 180 tablet, Refills 0, Tot. Refills 0, Maintenance, Dyspepsia, 06/21/18 11:05:15 EDT, Route to Pharmacy Electronically, [id number], [facility] Start Date: 06/21/18 Status: [...] WITH PRO LONGED DEPRESSIVE REACTION(Confirmed) 02/03/07 Active [facility] Emeral d Team Senior Level Patient(Confirmed) [...]
--- OUTSIDE RECORDS SUMMARY | 2022-08-31 00:56 | XMS_ITS | Continuity of Care Document ---
Author Name Unknown Organization [facility]READ[facility] On[facility] Address [address] [place] [address]- Care Team Providers Care Dining Services Manager Name Role Phone Chaparrita Pizano DO Primary Care Physician Encounter [facility](s): 03/12/20 - 04/11/20 [facility] On[facility] [address] [place], [place] [address] Allergies, Adverse Reactions, Alerts Substance Reaction [...] 1 02/02/07 Given 1Admin Note: manufactured by [employer] Medications albuterol 0.042% inhalation solution 3 [...] Acute05/02/20 9:28:00 EDT, 04/02/20 9:28:00 EST, Tablet, [facility], Partial fill upon [...] 05/07/20 0:00:00 EDT, 04/09/20 6:53:00 EST, Liquid, [facility], Partial fill upon [...] 04/16/20 9:28:00 EST, 04/02/20 9:28:00 EST, Injection, [facility], Partial fill upon patient request if the prescription is for a schedule II opioid d... Start Date: 04/02/20 Stop Date: 04/16/20 Status: Ordered insulin glargine 100 units/mL subcutaneous solution = 25 units, Subcutaneous Injection, Daily at bedtime, # 12 mL, 0 Refills, Maintenance, 04/03/20 13:23:00 EST, Solution, [facility]/pharmacy #[id number], Partial fill upon patient request [...] 04/16/20 0:00:00 EST, 04/09/20 8:17:00 EST, Solution, [facility], Partial fill upon patient request if the prescription is for a schedule II opioid drug., 1... Start Date: 04/09/20 Stop Date: 04/16/20 Status: Ordered naloxone 4 mg/0.1 mL nasal spray = 4 mg, Nares, Both, Once, # 2 each, 0 Refills, Soft Stop, 04/09/20 13:16:00 EST, [facility], Partial fill upon [...] 0 Refills, Maintenance, 04/02/20 9:29:00 EST, Tablet, [facility], Partial fill upon patient request if the prescription is for a schedule II opioid drug., 154.94, cm, 0... Start Date: 04/02/20 Status: Ordered OxyCONTIN 10 mg oral tablet, extended release 10 mg, 1, tablet, By Mouth, Every 12 hours, # 60 tablet, Refills 0, Tot. Refills 0, Maintenance, 04/02/20 9:32:00 EST, Route to Pharmacy Electronically, [facility], Partial fill upon patient request if [...] Acute 04/30/20 0:00:00 EDT, 04/02/20 9:33:00 EST, [facility], Partial fill upon [...] 08/30/17 8:21:42 EDT, Route to Pharmacy Electronically, [id number], [facility]acy #[id number] Start Date: 08/30/17 Status: Ordered Tums 500 mg oral tablet, chewable 500 mg, 1, tablet, Chew, Every 4 hours, PRN, # 180 tablet, Refills 0, Tot. Refills 0, Maintenance, Dyspepsia, 06/21/18 11:05:15 EDT, Route to Pharmacy Electronically, [id number], [facility] Start Date: 06/21/18 [...] WITH PRO LONGED DEPRESSIVE REACTION(Confirmed) 02/03/07 Active [facility] Emeral d Team Senior Level [...]
--- OUTSIDE RECORDS SUMMARY | 2022-08-31 00:56 | XMS_ITS | Continuity of Care Document ---
Author Name Unknown Organization [facility] ter Address [address] [place] [address]- Care Team Providers Care Animal Laboratory Helper Name Role Phone Chaparrita Pizano DO Primary Care Physician [place] [facility] [place] Date(s): 05/24/19 - 05/24/[address] [address]- [facility] Discharge Disposition: A-D/C Home Attending Physician: Rosenda Hankins MD Admitting Physician: Rosenda Hankins MD Referring Physician: Rosenda Hankins MD Allergies, Adverse Reactions, Alerts Substance Reaction Severity Status doxycycline mouth swelling Active ceftriaxone hives Active penicillin throat swelling Rash Persistent Severe Active famotidine vomiting Active fentanyl 1 Fentanyl 50microgram s/hour patch difficulty breathing Persistent Severe Active morphine 2, 3, 4 hives Active iodine topical swelling itching Active Zofran 5 can only be given w/ benadryl hives [...] Patch ana cardia Active Lyrica Angioedema Active 1Tolerates Oxycontin (oxycodone extended release) as part of home regimen as shared during June 2014 admission. 2plizzie SHERIFF, tolerates with diphenhydramine 3Tolerates hydromorphone 4Tolerates Oxycontin (oxycodone extended release) as part of home regimen as shared during June 2014 admission. 5patient tolerated zofran on 05/25/2013 Immunizations Given and [...] Note: manufactured by [employer] P[employer] Medications albuterol CFC free 90 mcg/inh inhalation aerosol 2, puffs, Inhalation, 4 times a day, PRN, # 75 Gm, Refills 0, Tot. Refills 0, Maintenance, 12/02/1919:00:05 EDT, Aerosol, Print Requisition Start Date: 12/01/18 Status: Ordered albuterol CFC free 90 mcg/inh inhalation aerosol 1, puffs, Inhalation, Every 6 hours, PRN, # 9 Gm, Refills 2, Tot. Refills 2, Maintenance, 06/10/17 11:42:54 EDT, Aerosol, Route to Pharmacy Electronically, [id number], [facility]/pharmacy #[id number], Compound Start Date: 06/10/17 Status: Ordered Aygestin 5 mg oral tablet 3 tablet = 15 mg, By Mouth, Daily, # 84 tablet, 5 Refills, Maintenance, 07/01/18 7:41:56 EDT, Tablet Start Date: 07/01/18 Stop Date: 12/16/18 Status: Ordered Benadryl 25 mg oral capsule 2 capsule = 50 mg, By Mouth, 2 times a day, take 2 tab [address] Scan and then the last 2 tablet [address] Scan, # 4 capsule, 0 Refills, Maintenance, 05/02/19 10:52:00 EDT, [facility]/pharmacy #[id number], 155.9, cm, 04/26/19 9:14:00 EDT, Height... Start Date: 05/02/19 Status: Ordered bisacodyl 5 mg oral delayed [...] EDT, Tablet Start Date: 10/04/18 Status: Ordered dulaglutide 1.5 mg/0.5 mL subcutaneous solution 0.5 mL = 1.5 mg, Subcutaneous Injection, Every week, # 2 mL, 6 Refills, Maintenance, 02/24/18 14:45:45 EST, Solution Start Date: 02/24/18 Stop Date: 09/08/18 Status: Ordered Elmiron 100 mg oral capsule [...] 05/05/18 9:38:51 EDT, Route to Pharmacy Electronically, [id number]... Start Date: 05/05/18 Status: Ordered Lantus 100 u/ml subcutaneous solution = 55 units, Subcutaneous Infusion, Daily at bedtime, 0 Refills, Maintenance, 10/04/18 9:32:23 EDT Start Date: 10/04/18 Status: Ordered LORazepam 0.5 mg oral tablet See Instructions, Take 1 tablet by mouth 1 hour prior to biopsy appointment, may repeat x1 if needed, # 2 tablet, 0 Refills, Maintenance, 04/27/19 16:33:00 EDT, [facility]/pharmacy #[id number], 155.9, cm, 04/26/19 9:14:00 EDT, Height, 131.5, kg, 04/26/19 9:14:00 E... Start Date: 04/27/19 Status: Ordered losartan 50 mg oral tablet 50 mg, 1, tablet, By Mouth, Daily, # 30 tablet, Refills 0, Maintenance, 10/04/18 9:33:08 EDT Start Date: 10/04/18 Status: Ordered Meloxicam By Mouth, Daily, 0 Refills, Maintenance, 02/09/19 7:41:00 EST Start Date: 02/09/19 Status: Ordered metFORMIN 1000 mg oral tablet 1 tablet = 1,000 mg, By Mouth, 2 times a day, # 60 tablet, 5 Refills, Maintenance, 10/10/17 13:02:54 EDT Start Date: 10/10/17 Status: Ordered methylPREDNISolone 32 mg oral tablet See Instructions, 32 mg by mouth, 12 hrs and 2 hrs prior to MRI, # 2 tablet, 0 Refills, Maintenance, 01/31/19 15:17:00 EST, [id number], 155.9, cm, 01/29/19 15:24:00 EST, Height, 130.7, kg, 01/29/19 15:24:00 EST, Dry Weight Start Date: 01/31/19 Status: Ordered NovoLOG FlexPen 100 units/mL subcutaneous [...] Status: Ordered oxyCODONE 5 mg oral tablet 5 mg, 1, tablet, By Mouth, Every 6 hours, PRN, # 20 tablet, Refills 0, Tot. Refills 0, Maintenance,Pain , Severe, 05/20/19 20:50:00 EDT, Route to Pharmacy Electronically, [facility]/pharmacy #[id number], Partialfill upon patient request, 155.9, cm, 04/26/19 9:14... Start Date: 05/20/19 Status: Ordered potassium chloride 8 mEq (600 mg) oral tablet, extended release 1 tablet = 8 mEq, By Mouth, Daily, 0 Refills, Maintenance, [...] 08/30/17 8:21:42 EDT, Route to Pharmacy Electronically, [id number], [facility]/pharmacy #[id number] Start Date: 08/30/17 Status: Ordered Avni Readi-Cat 2 oral suspension See Instructions, please follow the instructions provided to you, # 2 each, 0 Refills, Maintenance,04/27/19 16:40:00 EDT, [facility]/pharmacy #[id number], please follow the instructions provided to you, 155.9, cm, 04/26/19 9:14:00 EDT, Height, 131.5, kg, 04/26/19... Start Date: 04/27/19 Status: Ordered Tums 500 mg oral tablet, chewable 500 mg, 1, tablet, Chew, Every 4 hours, PRN, # 180 tablet, Refills 0, Tot. Refills 0, Maintenance, Dyspepsia, 06/21/18 11:05:15 EDT, Route to Pharmacy Electronically, [id number], [facility] Start Date: 06/21/18 Status: [...] WITH PRO LONGED DEPRESSIVE REACTION(Confirmed) 02/03/07 Active [facility] Emeral d Team Senior Level Patient(Confirmed) [...] Low back pain(Confirmed) Active MIGRAINE(Confirmed) 02/03/07 Active Morbid obesity(Confirmed) Active Neurogenic bladder(Confirmed) Active OBESITY(Confirmed) Active AURELIO (obstructive sleep apnea)(Confirmed) Active Optic neuritis, right(Confirmed) Active Partial small bowel obstruction(Confirmed) Active Pelvic mass in female(Confirmed) Active Spinal stenosis(Confirmed) Active DM (diabetes mellitus), type 2, uncontrolled(Confirmed) Active Vital Signs Most recent to oldest [Reference Range]: 1 2 3 Height 155 cm (05/24/19 7:49 AM) Weight 133.5 kg (05/24/19 7:49 AM) Oxygen Saturation [94-100 %] 97 % (05/24/19 7:26 AM) 98 % (05/24/19 6:35 AM) Pulse Rate [55-90 bpm] 85 bpm (05/24/19 7:26 AM) 92 bpm *H* (05/24/19 6:35 AM) Blood Pressure [90-138/55-84 mm Hg] 107/76mm Hg (05/24/19 7:26 AM) 137/91mm Hg (05/24/19 6:35 AM) Respiratory Rate [16-30 br/min] 14 br/min *L* (05/24/19 9:35 AM) 18 br/min (05/24/19 9:15 AM) 18 br/min (05/24/19 7:26 AM) Temperature [96.8-100.4 DegF] 97.9 DegF (05/24/19 7:26 AM) 98.1 DegF (05/24/19 6:35 AM) Mode of Delivery (Oxygen) Room air (05/24/19 7:26 AM) Room air (05/24/19 6:35 AM) Blood pressure sites Arm, left (05/24/19 7:26 AM) Arm, left (05/24/19 6:35 AM) Temperature Route Oral (05/24/19 7:26 AM) Oral (05/24/19 6:35 AM) Social History Social History Type Response Smoking Status Former smoker; Other : quit 04/2015; entered on: 01/30/16 Sex Female
--- OUTSIDE RECORDS SUMMARY | 2022-08-31 00:57 | XMS_ITS | Continuity of Care Document ---
Author Name Unknown Organization [facility] Address [address] [place] [address] [address] [place] [address]- Care Team Providers Care Channeling Machine Runner Name Role Phone Chaparrita Pizano DO Primary Care Physician Encounter [facility] Date(s): 05/20/20 - 06/19/[address] [place] [address]- Attending Physician: Jamie Gregorio Admitting Physician: Jamie Gregorio Referring Physician: AdmtrJamie Allergies, Adverse Reactions, Alerts Substance Reaction Severity [...] 1 02/02/07 Given 1Admin Note: manufactured by [employer] Medications albuterol 0.042% inhalation solution 3 [...] 13:23:00 EST, Solution, [facility]/pharmacy #[id number], Partial fill upon patient request if the [...] 0 Refills, Soft Stop, 04/09/20 13:16:00 EST, [facility], Partial fill upon patient request if [...] 0 Refills, Maintenance, 04/02/20 9:29:00 EST, Tablet, [facility], Partial fill upon patient request if the prescription is for a schedule II opioid drug., 154.94, cm, 0... Start Date: 04/02/20 Status: Ordered oxyCODONE 10 mg oral tablet 1 tablet = 10 mg, By Mouth, Every 4 hours, PRN Pain , Severe, # 42 tablet, 0 Refills, Maintenance, 06/12/20 16:41:00 EDT, Tablet, [facility]/pharmacy #[id number], Partial fill upon patient request if the [...] 08/30/17 8:21:42 EDT, Route to Pharmacy Electronically, [id number], [facility]/pharmacy #[id number] Start Date: 08/30/17 Status: Ordered Tums 500 mg oral tablet, chewable 500 mg, 1, tablet, Chew, Every 4 hours, PRN, # 180 tablet, Refills 0, Tot. Refills 0, Maintenance, Dyspepsia, 06/21/18 11:05:15 EDT, Route to Pharmacy Electronically, [id number], [facility] Start Date: 06/21/18 [...] WITH PRO LONGED DEPRESSIVE REACTION(Confirmed) 02/03/07 Active [facility] Emeral d Team [...]
--- OUTSIDE RECORDS SUMMARY | 2022-08-31 00:57 | XMS_ITS | Continuity of Care Document ---
Author Name Unknown Organization [facility] ter Address [address] [place] [address]- Care Team Providers Care Gasoline Plant Operator Name Role Phone Chaparrita Pizano DO Primary Care Physician [place] [facility] [place] - 01/18/[address] [address]- Attending Physician: Donald Murphy MD Admitting Physician: Donald Murphy MD Referring Physician: Donald Murphy MD Allergies, Adverse Reactions, Alerts Substance Reaction Severity Status doxycycline mouth swelling Active ceftriaxone hives Active melatonin Active penicillin throat swelling Rash Persistent Severe Active famotidine vomiting Active morphine 1, 2, 3 hives Active iodine topical swelling itching Active Zofran 4 can only be given w/ benadryl hives Active Pepcid vomitng Active Seafood Anaphylactic shock d ue to [...] to receive vaccine 2Admin Note: manufactured by [employer] Medications albuterol 0.042% inhalation solution 3 [...] 09/08/21 13:21:00 EDT, Route to Pharmacy Electronically, [facility], Partial fill upon patient request [facility], Partial fill upon patient request [...] 06/21/18 11:05:15 EDT, Route to Pharmacy Electronically, [id number], [facility] 3 Start Date: 06/21/18 Status: Ordered Vitamin [...] WITH PROLONGED DEPRESSIVE REACTION Confirmed 02/03/07 Active [facility] [place] Team Senior Level Patient Confirmed Active ASTHMA [...] Team Personnel Name: Lola Belcher RN Position: [facility] RN Member Role: Primary Care Nurse Name: Jose Enrique Saul RN Position: [facility] RN Member Role: Primary Care Nurse Name: Symone Mckinnon RN Position: [facility] RN Member Role: Primary Care Nurse Name: Carolyn Pelaez RN Position: [facility] RN Member Role: Primary Care Nurse Name: Deanna Garcia RN Position: [facility] RN Member Role: Primary Care Nurse Name: Fanny Mixon RN Position: [facility] ED RN W/OE and Tasks Member Role: Primary Care Nurse Name: María Ashford RN Position: [facility] AMB Nurse Member Role: Primary Care Nurse Name: Chanelle Hernandez RN Position: [facility] PCO RN Member Role: Primary Care Nurse Name: Estelle García RN Position: [facility] RN Member Role: Primary Care Nurse Name: Deanne Rangel RN Position: [facility] RN Member Role: Primary Care Nurse Name: Carine Jimenez RN Position: [facility] SN RN Member Role: Primary Care Nurse Name: Jenelle Campo RN Position: [facility] RN Member Role: Primary Care Nurse Name: Keyla Godwin RN Position: [facility] RN Member Role: Primary Care Nurse Name: Yeimi Devine RN Position: [facility] RN Member Role: Primary Care Nurse Name: Mary Yan RN Position: [facility] RN Member Role: Primary Care Nurse Name: Iliana Pop RN Position: [facility] RN Member Role: Primary Care Nurse Name: Alcides Dueñas RN Position: [facility] RN Member Role: Primary Care Nurse Name: Lisa Beatty Position: [facility] Outreach Member Role: Lifetime Consulting Physician Name: Armida Beatty RN Position: [facility] RN Member Role: Primary Care Nurse Name: Roque Villasenor MD Position: [facility] Renal MD Member Role: Lifetime Consulting Physician Address: Address: [address] [place] [address], [address] [facility] [address] Name: Lashon Lovell RN Position: [facility] SN RN Member Role: Primary Care Nurse Name: Kristi Giraldo RN Position: [facility] RN Supv Member Role: Primary Care Nurse Name: Jerrod Casarez RN Position: [facility] RN Member Role: Primary Care Nurse Name: Rosalva Martin RN Position: [facility] RN Member Role: Primary Care Nurse Name: Armida Ochoa RN Position: [facility] RN Member Role: Primary Care Nurse Name: Deonna Murillo RN Position: [facility] RN Member Role: Primary Care Nurse Name: Felipa Diehl RN Position: [facility] HBO Wound Member Role: Primary Care Nurse Name: Evelin Powell RN Position: [facility] AMB Nurse Member Role: Primary Care Nurse Name: Deonna Pendleton RN Position: [facility] RN Member Role: Primary Care Nurse Name: Pili Kaba RN Position: [facility] GAGANDEEP RN W/OE and Tasks Member Role: Primary Care Nurse Name: Alejandro Yanes RN Position: [facility] RN Member Role: Primary Care Nurse Name: Stacey Díaz RN Position: [facility] SN RN Member Role: Primary Care Nurse Name: Jac Reese RN Position: [facility] RN Member Role: Primary Care Nurse Name: Celestine Schwartz RN Position: [facility] RN Member Role: Primary Care Nurse Name: Neeta Carpenter RN Position: [facility] RN Member Role: Primary Care Nurse Name: Susie Estrada RN Position: [facility] RN Member Role: Primary Care Nurse Name: Inna Cantor RN Position: [facility] RN Member Role: Primary Care Nurse Name: Chaparrita Pizano DO Position: [facility] Physician (General Medicine) Member Role: PCP Address: Address: [address] [place] [address]- Name: Ning Rolon RN Position: [facility] RN Member Role: Primary Care Nurse Name: Rubi Carrasco RN Position: [facility] SN RN Member Role: Primary Care Nurse Name: Lauryn Holden RN Position: [facility] RN Member Role: Primary Care Nurse Name: Shen Silvestre RN Position: [facility] RN Member Role: Primary Care Nurse Name: Jones Cervantes RN Position: [facility] RN Member Role: Primary Care Nurse Name: Olivia Caputo RN Position: [facility] RN Member Role: Primary Care Nurse Name: Brooklyn Jim RN Position: [facility] RN Member Role: Primary Care Nurse Name: Kimberly Santoro RN Position: [facility] RN Member Role: Primary Care Nurse Name: Haley Diamond RN Position: [facility] RN Member Role: Primary Care Nurse Name: Ashley Meléndez NP Position: [facility] PCO Associate Professional Member Role: Primary Care Nurse Address: Address: [address] [place] [address] 3rd [place] [address]- Name: Siomara Patricia RN [facility] RN Member Role: Primary Care Nurse Name: Neeta Painter RN Position: [facility] RN Member Role: Primary Care Nurse Name: Edith Drummond RN Position: [facility] RN Member Role: Primary Care Nurse Name: Bailey Espinal RN Position: [facility] AMB Nurse Member Role: Primary Care Nurse Name: Brooklyn Ramsey RN Position: [facility] RN Member Role: Primary Care Nurse Name: Keyla Bright RN Position: [facility] RN Member Role: Primary Care Nurse Name: Beverley Tatum RN Position: [facility] RN Member Role: Primary Care Nurse Name: Mainor Devries RN Position: [facility] RN Member Role: Primary Care Nurse Name: Yarely Richards RN Position: [facility] Major General Member Role: Primary Care Nurse Name: Oralia Massey RN Position: [facility] RN Member Role: Primary Care Nurse Name: Cassie Villanueva RN Position: [facility] RN Member Role: Primary Care Nurse Name: Taiwo Mcgregor RN Position: [facility] RN Member Role: Primary Care Nurse Name: Cally Funes RN Position: [facility] SN RN Member Role: Primary Care Nurse Name: Marina Osorio Position: [facility] RN Member Role: Primary Care Nurse Name: Lisa Blanton RN Position: [facility] Major General Member Role: Primary Care Nurse Name: Danica Stuart RN Position: [facility] AMB Nurse Member Role: Primary Care Nurse Name: Shruthi Ray RN Position: [facility] RN Member Role: Primary Care Nurse Name: Abbe Choe RN Position: [facility] RN Supv Member Role: Primary Care Nurse Name: Farideh Cat LPN Position: [facility] RN Member Role: Primary Care Nurse Name: Janis Morris RN Position: [facility] Major General Member Role: Primary Care Nurse Name: Darrian Chang RN Position: [facility] Major General Member Role: Primary Care Nurse Name: Jerry Mcneill RN Position: [facility] RN Member Role: Primary Care Nurse Care Team Related Persons Name: IVAN VILLASENOR Address: [place] [address] Name: REYNALDO KAUR Address: [address] [place] [address] Name: EMMA SERRANO Address: home [address] [address] Name: PATRICK MATA Address: home [address] [place] [address] Name: FARIDEH POPE Address: [place] [address]
--- OUTSIDE RECORDS SUMMARY | 2022-08-31 00:57 | XMS_ITS | Continuity of Care Document ---
Author Name Unknown Organization [facility] ter Address [address] [place] [address]- Care Team Providers Care Back Feeder Plywood Layup Line Name Role Phone Jerica Chaparrita DO Primary Care Physician Encounter [facility] Date(s): 02/19/20 - 05/26/[address] [address]- Attending Physician: Isaac Lobo MD Admitting Physician: Isaac Lobo MD Referring Physician: Isaac Lobo MD Allergies, Adverse Reactions, Alerts Substance Reaction [...] 1 02/02/07 Given 1Admin Note: manufactured by [employer] Medications albuterol 0.042% inhalation solution 3 [...] Refills, Maintenance, 04/03/20 13:23:00 EST, Solution, [facility]/pharmacy #[id number], Partial fill upon patient request if the [...] Refills, Soft Stop, 04/09/20 13:16:00 EST, [facility], Partial fill upon patient request if [...] Refills, Maintenance, 04/02/20 9:29:00 EST, Tablet, [facility], Partial fill upon patient request if the prescription is for a schedule II opioid drug., 154.94, cm, 0... Start Date: 04/02/20 Status: Ordered oxyCODONE 10 mg oral tablet 2 tablet = 20 mg, By Mouth, Every 6 hours, PRN Pain , Severe, take 1 tab for less severe pain, # 56tablet, 0 Refills, Maintenance, 05/20/20 9:20:00 EDT, Tablet, [facility]/pharmacy #[id number], Partial fill uponpatient request if the prescription is for a schedu... Start Date: 05/20/20 Status: Ordered oxyCODONE 20 mg oral tablet, extended release 20 mg, 1, tablet, By Mouth, Every 12 hours, Patient has 8 tablets from before, new prescription for5 days till she goes to the pain clinic, # 10 tablet, Refills 0, Tot. Refills 0, Maintenance, 05/01/20 9:37:00 EDT, Route to Pharmacy Electronically, [facility] Start Date: 05/01/20 Stop Date: 05/06/20 Status: [...] 08/30/17 8:21:42 EDT, Route to Pharmacy Electronically, [id number], [facility]/pharmacy #[id number] Start Date: 08/30/17 Status: Ordered Tums 500 mg oral tablet, chewable 500 mg, 1, tablet, Chew, Every 4 hours, PRN, # 180 tablet, Refills 0, Tot. Refills 0, Maintenance, Dyspepsia, 06/21/18 11:05:15 EDT, Route to Pharmacy Electronically, [id number], [facility] Start Date: 06/21/18 Status: [...] WITH PRO LONGED DEPRESSIVE REACTION(Confirmed) 02/03/07 Active [facility] Emeral d Team Senior Level Patient(Confirmed) [...]
--- OUTSIDE RECORDS SUMMARY | 2022-08-31 00:57 | XMS_ITS | Continuity of Care Document ---
Author Name Unknown Organization [facility] Address [address] [place] [address]- Care Team Providers Care Slurry Worker Name Role Phone Chaparrita Pizano DO Primary Care Physician En[place] [facility] [place] Date(s): 09/04/19 - 10/04/19 [facility] [address] [place] [address]- [facility] Allergies, Adverse Reactions, Alerts Substance Reaction Severity [...] 1 02/02/07 Given 1Admin Note: manufactured by [employer] Medications albuterol CFC free 90 mcg/inh [...] 11:42:54 EDT, Aerosol, Route to Pharmacy Electronically, [id number], [facility]/pharmacy #[id number], Compound Start Date: 06/10/17 Status: Ordered [...] capsule, 0 Refills, Maintenance, 05/02/19 10:52:00 EDT, [facility]/pharmacy #[id number], 155.9, cm, 04/26/19 9:14:00 EDT, Height... [...] 05/05/18 9:38:51 EDT, Route to Pharmacy Electronically, [id number]... Start Date: 05/05/18 Status: Ordered Insulin Glargine Inj 0.6 mL = 60 units, Subcutaneous Injection, Daily at bedtime, 0 Refills, Maintenance, 08/20/19 18:48:00 EDT, Injection Start Date: 08/20/19 Status: Ordered LORazepam 0.5 mg oral tablet See Instructions, Take 1 tablet by mouth 1 hour prior to biopsy appointment, may repeat x1 if needed, # 2 tablet, 0 Refills, Maintenance, 04/27/19 16:33:00 EDT, [facility]/pharmacy #[id number], 155.9, cm, 04/26/19 9:14:00 EDT, Height, [...] By Mouth, Every 6 hours, PRN, # 30 tablet, Refills 0, Tot. Refills 0, Maintenance,for pain, 08/09/19 13:00:00 EDT, Route to Pharmacy Electronically, [facility]/pharmacy #[id number], Partial fillupon patient request, 155, cm, 07/15/19 1:08:00 EDT... Start Date: 08/09/19 Status: Ordered potassium chloride 8 mEq (600 [...] 08/30/17 8:21:42 EDT, Route to Pharmacy Electronically, [id number], [facility]/pharmacy #[id number] Start Date: 08/30/17 Status: Ordered tiZANidine [...] 06/21/18 11:05:15 EDT, Route to Pharmacy Electronically, [id number], [facility] 3 Start Date: 06/21/18 Status: Ordered Vitamin [...] WITH PRO LONGED DEPRESSIVE REACTION(Confirmed) 02/03/07 Active [facility] Emeral d Team Senior Level [...]
--- OUTSIDE RECORDS SUMMARY | 2022-08-31 00:57 | XMS_ITS | Continuity of Care Document ---
Author Name Unknown Organization [facility] Address [address] [place] [address]- Care Team Providers Care Biological Sciences Instructor Name Role Phone Jerica Chaparrita DO Primary Care Physician Encounter [facility] Date(s): 08/08/20 - 09/07/20 [facility] [address] [place] [address] Referring Physician: Fidelina Mckinnon Allergies, Adverse Reactions, Alerts Substance Reaction Severity [...] to receive vaccine 2Admin Note: manufactured by [employer] Medications albuterol 0.042% inhalation solution 3 [...] PRN Pain Start Date: 04/04/20 Status: Ordered Imitrex 50 mg oral tablet 1 tablet = 50 mg, By Mouth, Daily, PRN for migraine headache, may repeat dose after 2 hours up to amaximum of 2, # 18 tablet, 0 Refills, Acute 08/31/21 13:21:00 EDT, 08/31/20 13:21:00 EDT, Tablet, [facility]/pharmacy #[id number], Partial fill upon patient request... Start Date: 08/31/20 Stop Date: 08/31/21 Status: Ordered Insulin Glargine Inj 0.3 mL = 30 units, Subcutaneous Injection, Daily at bedtime, 0 Refills, Maintenance, 07/31/20 12:52:00 EDT, Injection, Partial fill upon patient request if the prescription is for a schedule II opioid drug. Start Date: 07/31/20 Status: Ordered lactulose 10 gm/15 ml oral syrup 30 mL = 20 Gm, By Mouth, 3 times a day, # 480 mL, 1 Refills, Acute 08/31/22 13:22:00 EDT, 08/31/20 13:21:00 EDT, Syrup, [facility]/pharmacy #[id number], Partial fill upon patient request if [...] 0 Refills, Soft Stop, 04/09/20 13:16:00 EST, [facility], Partial fill upon patient request if [...] 0 Refills, Maintenance, 04/02/20 9:29:00 EST, Tablet, [facility], Partial fill upon patient request if the prescription is for a schedule II opioid drug., 154.94, cm, 0... Start Date: 04/02/20 Status: Ordered oxyCODONE 10 mg oral tablet See Instructions, 1 tablet By Mouth 5 times per day for 7 days, per pain services recommedations, #35 tablet, 0 Refills, Maintenance, 06/20/20 8:49:00 EDT, Tablet, [facility]/pharmacy #[id number], Partial fill upon patient request if [...] Date: 01/17/18 Stop Date: 07/16/18 Status: Ordered senna 17 mg oral tablet 2 tablet = 34 mg, By Mouth, Daily at bedtime, # 30 tablet, 1 Refills, Maintenance, 08/31/20 13:22:00 EDT, [facility]/pharmacy #[id number], Partial fill upon patient request if the prescription is for a schedule II opioid drug., 156, cm, 08/01/20 6:00:00 EDT, Dan[facility]... Start Date: 08/31/20 Status: Ordered Senna Plus 50 mg-8.6 mg oral tablet 2 tablet, By Mouth, Daily at bedtime, Maintenance, 10/04/18 16:17:29 EDT, Tablet Start Date: 10/04/18 Status: Ordered simvastatin 40 mg oral tablet 40 mg, 1, tablet, By Mouth, Daily at bedtime, # 90 tablet, Refills 1, Tot. Refills 1, Maintenance, 08/30/17 8:21:42 EDT, Route to Pharmacy Electronically, [id number], [facility]/pharmacy #[id number] Start Date: 08/30/17 Status: Ordered Tums 500 mg oral tablet, chewable 500 mg, 1, tablet, Chew, Every 4 hours, PRN, # 180 tablet, Refills 0, Tot. Refills 0, Maintenance, Dyspepsia, 06/21/18 11:05:15 EDT, Route to Pharmacy Electronically, [id number], [facility] Start Date: 06/21/18 [...] WITH PRO LONGED DEPRESSIVE REACTION(Confirmed) 02/03/07 Active [facility] Emeral d Team Senior Level [...]
--- OUTSIDE RECORDS SUMMARY | 2022-08-31 00:57 | XMS_ITS | Continuity of Care Document ---
Author Name Unknown Organization [facility] Address [address] [place] [address]- Care Team Providers Care Leverman Name Role Phone Chaparrita Pizano DO Primary Care Physician Encounter [facility] Date(s): 04/26/19 - 05/06/19 [facility] [address] [place] [address] Attending Physician: Admdavid, Jamie Admitting Physician: Admtr, Jamie Referring Physician: Admtr, Ar8 Allergies, Adverse Reactions, [...] 11:42:54 EDT, Aerosol, Route to Pharmacy Electronically, [id number], [facility]/pharmacy #[id number], Compound Start Date: 06/10/17 Status: [...] capsule, 0 Refills, Maintenance, 05/02/19 10:52:00 EDT, [facility]/pharmacy #[id number], 155.9, cm, 04/26/19 9:14:00 EDT, [...] 05/05/18 9:38:51 EDT, Route to Pharmacy Electronically, [id number]... Start Date: 05/05/18 Status: Ordered Lantus 100 u/ml subcutaneous solution = 55 units, Subcutaneous Infusion, Daily at bedtime, 0 Refills, Maintenance, 10/04/18 9:32:23 EDT Start Date: 10/04/18 Status: Ordered LORazepam 0.5 mg oral tablet See Instructions, Take 1 tablet by mouth 1 hour prior to biopsy appointment, may repeat x1 if needed, # 2 tablet, 0 Refills, Maintenance, 04/27/19 16:33:00 EDT, [facility]/pharmacy #[id number], 155.9, cm, 04/26/19 9:14:00 EDT, [...] ER Tablet Start Date: 10/04/18 Status: Ordered potassium chloride 8 mEq (600 [...] 08/30/17 8:21:42 EDT, Route to Pharmacy Electronically, [id number], [facility]/pharmacy #[id number] Start Date: 08/30/17 Status: Ordered Smoothie Readi-Cat 2 oral suspension See Instructions, please follow the instructions provided to you, # 2 each, 0 Refills, Maintenance,04/27/19 16:40:00 EDT, [facility]/pharmacy #[id number], please follow the instructions provided to you, 155.9, cm, 04/26/19 9:14:00 EDT, Height, 131.5, kg, 04/26/19... Start Date: 04/27/19 Status: Ordered Tums 500 mg oral tablet, chewable 500 mg, 1, tablet, Chew, Every 4 hours, PRN, # 180 tablet, Refills 0, Tot. Refills 0, Maintenance, Dyspepsia, 06/21/18 11:05:15 EDT, Route to Pharmacy Electronically, [id number], [facility] 3 Start Date: 06/21/18 Status: Ordered [...] WITH PRO LONGED DEPRESSIVE REACTION(Confirmed) 02/03/07 Active [facility] Emeral d Team Senior Level [...]
--- OUTSIDE RECORDS SUMMARY | 2022-08-31 00:57 | XMS_ITS | Continuity of Care Document ---
Author Name Unknown Organization [facility] ter Address [address] [place] [address]- Care Team Providers Care Weigher Packing Name Role Phone Darryl Pizano DOdavidradha Gupta Primary Care Physician Encounter [facility] Date(s): 12/28/21 - 04/30/[address] [address]- Attending Physician: Donald Murphy MD Admitting Physician: [...] w/ benadryl hives Active Pepcid vomitng Active Nexium diarrhea, vomitting Active Levaquin tingling in mouth, rash Acti ve Compazine shortness of breath Active Tylenol hives Active Reglan severe restless legs Active Adhesive Bandage skin excoriation hives Active Contrast Dye hives itchy throat itchy Persistent Mild Active Latex vag rash Active Seafood Anaphylactic shock d ue to adverse food reaction Severe Active Lantiseptic Skin Protectant Active Lyrica Angioedema Active Nicotine Patch ana cardia Active darrick [...] to receive vaccine 2Admin Note: manufactured by [employer] Medications albuterol 0.042% inhalation solution 3 [...] 03/12/22 12:08:00 EST, Route to Pharmacy Electronically, [facility], Partial fill upon patient request if the prescr... Start Date: 03/12/22 Stop Date: 04/11/22 Status: Ordered ceFAZolin 2 g injection = 2 Gm, IV Push, Every 8 hours, 0 Refills, Maintenance, 03/12/22 12:09:00 EST, Injection, Partial fill upon patient request if the prescription is for a schedule II opioid drug. Start Date: 03/12/22 Status: Ordered dextromethorphan-guaifenesin 10 mg-100 mg/5 mL oral liquid 10 mL, By Mouth, 2 times a day, PRN Cough, Take as needed for cough up to 2 times a day., # 120 mL,0 Refills, Acute 03/09/23 23:00:00 EST, 03/12/22 12:09:00 EST, Syrup, [facility], Partial fill upon patient request if the prescription i... Start Date: 03/12/22 Stop Date: 03/09/23 Status: Ordered ENSURE CLEAR LIQD ENSURE CLEAR LIQD, 1 bottle, 3 times a day with meals, 0 Refills, Maintenance, 02/27/22 20:23:00 EST Start Date: 02/27/22 Status: Ordered HYDROmorphone 1 mg/mL oral liquid [...] 03/09/23 23:00:00 EST, 03/12/22 12:10:00 EST, Patch, [facility], Partial fill upon patient [...] tablet, 0 Refills, Maintenance, 04/02/20 9:29:00 EST, [facility], Partial [...] 03/12/22 12:06:00 EST, Route to Pharmacy Electronically, [facility], Partial fill uponpatient request if the prescription is for a schedu... Start Date: 03/12/22 Status: Ordered SUMAtriptan 50 mg oral tablet [...] 06/21/18 11:05:15 EDT, Route to Pharmacy Electronically, [id number], [facility] 3 Start Date: 06/21/18 Status: Ordered Vitamin [...] WITH PROLONGED DEPRESSIVE REACTION Confirmed 02/03/07 Active [facility] Team Senior Level Patient Confirmed Active [facility]HMA [...] Team Personnel Name: Lola Belcher RN Position: [facility] RN Member Role: Primary Care Nurse Name: Jose Enrique Saul RN Position: [facility] RN Member Role: Primary Care Nurse Name: Symone Mckinnon RN Position: [facility] RN Member Role: Primary Care Nurse Name: Carolyn Pelaez RN Position: [facility] RN Member Role: Primary Care Nurse Name: Fanny Mixon RN Position: [facility] ED RN W/OE and Tasks Member Role: Primary Care Nurse Name: María Ashford RN Position: [facility] AMB Nurse Member Role: Primary Care Nurse Name: Chanelle Hernandez RN Position: [facility] AMB Nurse Member Role: Primary Care Nurse Name: Estelle García RN Position: [facility] RN Member Role: Primary Care Nurse Name: Deanne Rangel RN Position: [facility] RN Member Role: Primary Care Nurse Name: Carine Jimenez RN Position: [facility] SN RN Member Role: Primary Care Nurse Name: Jenelle Campo RN Position: [facility] RN Member Role: Primary Care Nurse Name: Keyla Godwin RN Position: [facility] RN Member Role: Primary Care Nurse Name: Yeimi Devine RN Position: [facility] RN Member Role: Primary Care Nurse Name: Mary Yan RN Position: [facility] RN Member Role: Primary Care Nurse Name: Iliana Pop RN Position: [facility] RN Member Role: Primary Care Nurse Name: Aclides Dueñas RN Position: [facility] RN Member Role: Primary Care Nurse Name: Lisa Beatty Position: [facility] Outreach Member Role: Lifetime Consulting Physician Name: Armida Beatty RN Position: [facility] RN Member Role: Primary Care Nurse Name: Deonna Beatty RN Position: [facility] RN Member Role: Primary Care Nurse Name: Roque Villasenor MD Position: [facility] Renal MD Member Role: Lifetime Consulting Physician Address: Address: [address] [place] [address], [address] [facility] [place] [address]- Name: Lashon Lovell RN Position: [facility] SN RN Member Role: Primary Care Nurse Name: Kristi Giraldo RN Position: [facility] RN Supv Member Role: Primary Care Nurse Name: Jerrod Casarez RN Position: [facility] RN Member Role: Primary Care Nurse Name: Shane Riley RN Position: [facility] RN Member Role: Primary Care Nurse Name: Isac Plascencia RN Position: [facility] RN Member Role: Primary Care Nurse Name: Rosalva Martin RN Position: [facility] RN Member Role: Primary Care Nurse Name: Sheela Matt RN Position: [facility] RN Member Role: Primary Care Nurse Name: Armida Ochoa RN Position: [facility] RN Member Role: Primary Care Nurse Name: Felipa Diehl RN Position: [facility] HBO Wound Member Role: Primary Care Nurse Name: Evelin Powell RN Position: [facility] AMB Nurse Member Role: Primary Care Nurse Name: Donald Murphy MD Position: [facility] Renal MD Member Role: Lifetime Consulting Physician Address: Address: [address] [place] [address] [address] [facility] [place] [address]- Name: Deonna Pendleton RN Position: [facility] RN Member Role: Primary Care Nurse Name: Pili Kaba RN Position: [facility] RN Member Role: Primary Care Nurse Name: Alejandro Yanes RN Position: [facility] RN Member Role: Primary Care Nurse Name: Stcaey Díaz RN Position: [facility] SN RN Member Role: Primary Care Nurse Name: Jac Reese RN Position: [facility] RN Member Role: Primary Care Nurse Name: Celestine Schwartz RN Position: [facility] GAGANDEEP RN W/OE and Tasks Member Role: Primary Care Nurse Name: Neeta Carpenter RN Position: [facility] RN Member Role: Primary Care Nurse Name: Susie Estrada RN Position: [facility] RN Member Role: Primary Care Nurse Name: Inna Cantor RN Position: [facility] RN Member Role: Primary Care Nurse Name: Chaparrita Pizano DO Position: [facility] Physician (General Medicine) Member Role: PCP Address: Address: [address] [place] [address]- [place] Name: Ning Rolon RN Position: [facility] RN Member Role: Primary Care Nurse Name: Rubi Carrasco RN Position: [facility] SN RN Member Role: Primary Care Nurse Name: Lauryn Holden RN Position: [facility] RN Member Role: Primary Care Nurse Name: Jones Cervantes RN Position: [facility] RN Member Role: Primary Care Nurse Name: Olivia Caputo RN Position: [facility] RN Member Role: Primary Care Nurse Name: Brooklyn Jim RN Position: [facility] RN Member Role: Primary Care Nurse Name: Kimberly Santoro RN Position: [facility] RN Member Role: Primary Care Nurse Name: Haley Diamond RN Position: [facility] RN Member Role: Primary Care Nurse Name: Ashley Meléndez NP Position: [facility] PCO Associate Professional Member Role: Primary Care Nurse Address: Address: [address] [place] [address] 3rd floor [facility] [place] [address]- Name: Siomara Patricia RN Position: [facility] PCO RN Member Role: Primary Care Nurse Name: Neeta Painter RN Position: [facility] RN Member Role: Primary Care Nurse Name: Bailey Espinal RN Position: [facility] AMB Nurse Member Role: Primary Care Nurse Name: Brooklyn Ramsey RN Position: [facility] RN Member Role: Primary Care Nurse Name: Keyla Bright RN Position: [facility] RN Member Role: Primary Care Nurse Name: Beverley Tatum RN Position: [facility] RN Member Role: Primary Care Nurse Name: Mainor Devries RN Position: [facility] RN Member Role: Primary Care Nurse Name: Yarely Richards RN Position: [facility] Control System Manager Member Role: Primary Care Nurse Name: Oralia Massey RN Position: [facility] RN Member Role: Primary Care Nurse Name: Cassie Villanueva RN Position: [facility] RN Member Role: Primary Care Nurse Name: Taiwo Mcgregor RN Position: [facility] RN Member Role: Primary Care Nurse Name: Cally Funes RN Position: [facility] RN Member Role: Primary Care Nurse Name: Marina Osorio Position: [facility] RN Member Role: Primary Care Nurse Name: Harvinder RNLisa Position: [facility] Control System Manager Member Role: Primary Care Nurse Name: Danica Stuart RN Position: [facility] AMB Nurse Member Role: Primary Care Nurse Name: Virginia Bacon RN Position: [facility] RN Member Role: Primary Care Nurse Name: Shruthi Ray RN Position: [facility] Onco RN Member Role: Primary Care Nurse Name: Abbe Choe RN Position: [facility] RN Supv Member Role: Primary Care Nurse Name: Farideh Cat LPN Position: [facility] RN Member Role: Primary Care Nurse Name: Janis Morris RN Position: [facility] Control System Manager Member Role: Primary Care Nurse Name: Darrian Chang RN Position: [facility] Control System Manager Member Role: Primary Care Nurse Name: Josef Woods RN Position: [facility] RN Member Role: Primary Care Nurse Name: Siomara Raphael RN Position: [facility] RN Member Role: Primary Care Nurse Name: Jerry Mcneill RN Position: [facility] RN Member Role: Primary Care Nurse Care Team Related Persons Name: IVAN VILLASENOR Address: [place] [address] Name: REYNALDO KAUR Address: home [address] [place] [address] Name: EMMA SERRANO Address: home [address] [address] Name: PATRICK MATA Address: [address] [place] [address] Name: FARIDEH POPE Address: [place] [address]
--- OUTSIDE RECORDS SUMMARY | 2022-08-31 00:57 | XMS_ITS | Continuity of Care Document ---
Author Name Unknown Organization [facility] ter Address [address] [place] [address]- Care Team Providers Care Senior Supply Chain Analyst Name Role Phone Jerica Chaparrita DO Primary Care Physician ( [phone] Encounter [facility] Date(s): 10/20/21 - 10/21/[address] [address]- Encounter Diagnosis Headache(Final) - 10/21/21 Discharge Disposition: A-D/C Home Attending Physician: Shen Sharma MD Admitting Physician: Shen Sharma MD Referring Physician: Not on Staff, Referring MD Allergies, Adverse Reactions, Alerts Substance Reaction Severity Status doxycycline mouth swelling Active ceftriaxone hives Active penicillin throat swelling Rash Persistent Severe Active famotidine vomiting Active morphine 1, 2, 3 hives Active iodine topical swelling itching Active melatonin Active Zofran 4 can only be given w/ benadryl hives Active Pepcid vomitng Active Reglan severe restless legs Active Seafood Anaphylactic shock d ue to adverse food reaction Severe Active Levaquin tingling in mouth, rash Acti ve Compazine shortness of breath Active Tylenol hives Active Adhesive Bandage skin excoriation hives Active Contrast Dye hives itchy throat itchy Persistent Mild Active Latex vag rash Active Nexium diarrhea, vomitting Active Lantiseptic Skin Protectant Active Nicotine Patch ana cardia Active Lyrica [...] to receive vaccine 2Admin Note: manufactured by [employer] Medications albuterol 0.042% inhalation solution 3 [...] 09/08/21 13:21:00 EDT, Route to Pharmacy Electronically, [facility], Partial fill upon patient [...] 0 Refills, Maintenance, 04/02/20 9:29:00 EST, Tablet, [facility], Partial fill upon [...] 06/21/18 11:05:15 EDT, Route to Pharmacy Electronically, [id number], [facility] Start Date: 06/21/18 Status: [...] WITH PRO LONGED DEPRESSIVE REACTION(Confirmed) 02/03/07 Active [facility] Emeral d Team Senior Level [...] to oldest [Reference Range]: 1 2 3 Oxygen Saturation [94-100 %] 98 % (10/21/21 7:36 AM) 100 % (10/21/21 3:07 AM) 99 % (10/21/21 12:54 AM) Pulse Rate [55-90 bpm] 105 bpm *H* (10/21/21 7:36 AM) 96 bpm *H* (10/21/21 3:07 AM) 102 bpm *H* (10/21/21 12:54 AM) Blood Pressure [90-138/55-84 mm Hg] 149/94mm Hg *H* (10/21/21 7:36 AM) 121/76mm Hg (10/21/21 3:07 AM) 148/95mm Hg *H* (10/21/21 12:54 AM) Respiratory Rate [16-30 br/min] 16 br/min (10/21/21 7:36 AM) 16 br/min (10/21/21 3:07 AM) 18 br/min (10/20/21 1:19 PM) Temperature [96.8-100.4 DegF] 98.1 DegF (10/21/21 7:36 AM) 98.8 DegF (10/21/21 3:07 AM) 98.5 DegF (10/21/21 12:54 AM) Mode of Delivery (Oxygen) Room air (10/21/21 7:36 AM) Room air (10/21/21 3:07 AM) Room air (10/21/21 12:54 AM) Blood pressure sites Arm, left (10/21/21 7:36 AM) Arm, right (10/21/21 12:54 AM) Arm, right (10/20/21 10:29 PM) Temperature Route Oral (10/21/21 7:36 AM) Oral (10/21/21 3:07 AM) Oral (10/21/21 12:54 AM) Social History Social History Type Response Smoking Status Former smoker; Other : quit 04/2015; entered on: 01/30/16 Sex Care Team Personnel Name: Chaparrita Pizano DO Address: [address] [place], [place] [address]
--- OUTSIDE RECORDS SUMMARY | 2022-08-31 00:57 | XMS_ITS | Continuity of Care Document ---
Author Name Unknown Organization [facility] ter Address [address] [place] [address]- Care Team Providers Care Application Security Specialist Name Role Phone Chaparrita Pizano DO Primary Care Physician Encounter [facility] Date(s): 04/23/21 - 04/23/[address] [address]- Discharge Disposition: A-D/C Home Referring Physician: Not on Staff, Referring MD Allergies, Adverse Reactions, Alerts Substance Reaction Severity Status doxycycline mouth swelling Active ceftriaxone hives Active penicillin throat swelling Rash Persistent Severe Active melatonin Active Pepcid vomitng Active famotidine vomiting Active morphine 1, 2, 3 hives Active iodine topical swelling itching Active Zofran 4 can only be given w/ benadryl hives Active Reglan severe restless legs Active Seafood Anaphylactic shock d ue to adverse food reaction Severe Active Levaquin tingling in mouth, rash Acti ve Compazine shortness of breath Active Tylenol hives Active Adhesive Bandage skin excoriation hives Active Contrast Dye hives itchy throat itchy Persistent Mild Active Latex vag rash Active Nexium diarrhea, vomitting Active Nicotine Patch [...] to receive vaccine 2Admin Note: manufactured by [employer] P[employer]ur Medications albuterol 0.042% inhalation solution 3 [...] EC Tablet Start Date: 10/04/18 Status: Ordered cephalexin monohydrate 500 mg oral tablet 1 tablet = 500 mg, By Mouth, 2 times a day, for 7 days, # 14 tablet, 0 Refills, Acute 04/30/21 16:13:00 EDT, 04/23/21 16:13:00 EST, Tablet, [facility]/pharmacy #[id number], Partial fill upon patient request if the prescription is for a schedule II opioid drug., 15... Start Date: 04/23/21 Stop Date: 04/30/21 Status: Ordered Dilaudid Inj 1 mg, Injection, IV Push Slowly, Once, STAT, 04/23/21 13:14:00 EST, Stop date 04/23/21 13:14:00 EST Start Date: 04/23/21 Stop Date: 04/23/21 Status: Completed Imitrex 50 mg oral tablet 1 tablet = 50 mg, By Mouth, Daily, PRN for migraine headache, may repeat dose after 2 hours up to amaximum of 2, # 18 tablet, 0 Refills, Acute 08/31/21 13:21:00 EDT, 08/31/20 13:21:00 EDT, Tablet, [facility]/pharmacy #[id number], Partial fill upon patient request... Start [...] 08/31/22 13:22:00 EDT, 08/31/20 13:21:00 EDT, Syrup, [facility]/pharmacy #[id number], Partial fill upon patient request if [...] 0 Refills, Maintenance, 04/02/20 9:29:00 EST, Tablet, [facility], Partial fill upon [...] 10/08/20 Status: Ordered oxyCODONE 5 mg oral tablet 5 mg, Tablet, By Mouth, Once, Routine, 04/23/21 16:00:00 EST, Stop date 04/23/21 16:00:00 EST Start Date: 04/23/21 Stop Date: 04/23/21 Status: Completed propranolol 120 mg oral capsule, extended release [...] 08/30/17 8:21:42 EDT, Route to Pharmacy Electronically, [id number], [facility]/pharmacy #[id number] Start Date: 08/30/17 Status: Ordered Tums 500 mg oral tablet, chewable 500 mg, 1, tablet, Chew, Every 4 hours, PRN, # 180 tablet, Refills 0, Tot. Refills 0, Maintenance, Dyspepsia, 06/21/18 11:05:15 EDT, Route to Pharmacy Electronically, [id number], [facility] Start Date: 06/21/18 Status: Ordered Tylenol 325 mg oral capsule 2 capsule = 650 mg, By Mouth, Every 4 hours, PRN as needed for pain, # 60 capsule, 0 Refills, Acute06/14/21 0:00:00 EDT, 04/23/21 16:19:00 EST, Capsule, [facility]/pharmacy #[id number], Partial fill upon patientrequest if the prescription is for a schedule II op... Start Date: 04/23/21 Stop Date: 06/14/21 Status: Ordered Vitamin D3 2000 intl units oral capsule 1 capsule = 2,000 International_Units, By Mouth, 3 times a day, 0 Refills, Maintenance, 02/22/18 7:05:50 EST Start Date: 02/22/18 Status: Ordered Problem List Condition Effective Dates Status Health Status Inform ant Abdominal pain(Confirmed) Active Trigger point of abdomen(Confirmed) Active Abscess(Confirmed) Active ADJUSTMENT REACTION WITH PRO LONGED DEPRESSIVE REACTION(Confirmed) 02/03/[address] [facility] Emeral d Team Senior Level Patient(Confirmed) [...] 1 2 3 Oxygen Saturation [94-100 %] 95 % (04/23/21 3:16 PM) 98 % (04/23/21 12:32 PM) 96 % (04/23/21 11:14 AM) Pulse Rate [55-90 bpm] 90 bpm (04/23/21 3:16 PM) 93 bpm *H* (04/23/21 12:32 PM) 81 bpm (04/23/21 11:14 AM) Blood Pressure [90-138/55-84 mm Hg] 162/113mm Hg *H* (04/23/21 3:16 PM) 153/113mm Hg *H* (04/23/21 12:32 PM) 134/112mm Hg (04/23/21 11:14 AM) Respiratory Rate [16-30 br/min] 18 br/min (04/23/21 3:25 PM) 17 br/min (04/23/21 3:16 PM) 18 br/min (04/23/21 1:46 PM) Temperature [96.8-100.4 DegF] 98.2 DegF (04/23/21 3:16 PM) 98.0 DegF (04/23/21 12:32 PM) 98.4 DegF (04/23/21 11:14 AM) Mode of Delivery (Oxygen) Room air (04/23/21 3:16 PM) Room air (04/23/21 12:32 PM) Room air (04/23/21 11:14 AM) Blood pressure sites Arm, left (04/23/21 3:16 PM) Arm, right (04/23/21 12:32 PM) Arm, left (04/23/21 11:14 AM) Temperature Route Oral (04/23/21 3:16 PM) Oral (04/23/21 12:32 PM) Oral (04/23/21 11:14 AM) Social History Social History Type Response Smoking Status Former smoker; Other : quit 04/2015; entered on: 01/30/16 Sex
--- OUTSIDE RECORDS SUMMARY | 2022-08-31 00:58 | XMS_ITS | Continuity of Care Document ---
Author Name Unknown Organization [facility] Address Unknown Care Team Providers Care Exotic Dancer Name Role Phone Chaparrita Pizano DO Primary Care Physician Encounter [facility] Date(s): 09/17/21 - 09/24/21 [facility] Encounter Diagnosis Abdominal pain(Discharge Diagnosis) - 09/17/21 Attending Physician: Miguel MARES, Lauren Allred Referring Physician: Chaparrita Pizano DO Allergies, Adverse [...] diarrhea, vomitting Active Lantiseptic Skin Protectant Active Lyrica Angioedema Active Nicotine Patch ana cardia Active 1plizzie SHERIFF, tolerates with diphenhydramine 2Tolerates [...] to receive vaccine 2Admin Note: manufactured by [employer] Medications albuterol 0.042% inhalation solution 3 [...] 09/08/21 13:21:00 EDT, Route to Pharmacy Electronically, [facility], Partial fill [...] 08/31/22 13:22:00 EDT, 08/31/20 13:21:00 EDT, Syrup, [facility]/pharmacy #[id number], Partial fill upon patient [...] 04/02/20 9:29:00 EST, Tablet, [facility], Partial fill upon patient [...] EDT, Supply Start Date: 10/08/20 Status: Ordered pantoprazole 40 mg oral delayed [...] EDT, Tablet Start Date: 10/04/18 Status: Ordered SUMAtriptan 50 mg oral tablet [...] 06/21/18 11:05:15 EDT, Route to Pharmacy Electronically, [id number], [facility] Start Date: [...] DM (diabetes mellitus), type 2, uncontrolled(Confirmed) Active Diagnosis Diagnosis Type Effective Dates Health Status Cl inical Service Informant Abdominal pain Discharge Diagnosis 09/17/21 Vital Signs Most recent to oldest [Reference Range]: 1 Height 155 cm (09/17/21 10:41 AM) Weight 122.5 kg (09/17/21 10:41 AM) Pulse Rate [55-90 bpm] 86 bpm (09/17/21 10:41 AM) Body Mass Index [18.5-24.99] 50.99 *>HHI* (09/17/21 10:41 AM) Blood Pressure [90-138/55-84 mm Hg] 151/ 107mm Hg *H* (09/17/21 10:41 AM) Respiratory Rate [16-30 br/min] 17 br/mi n (09/17/21 10:41 AM) Temperature [96.8-100.4 DegF] 97.2 DegF (09/17/21 10:41 AM) Temperature Route Temporal (09/17/21 10:41 AM) Social History Social History Type Response Smoking Status Former smoker; Other : quit 04/2015; entered on: 01/30/16 Sex
--- OUTSIDE RECORDS SUMMARY | 2022-08-31 00:58 | XMS_ITS | Continuity of Care Document ---
Author Name Unknown Organization [facility] ter Address [address] [place] [address]- Care Team Providers Care Card Runner Name Role Phone Jerica DO Darryldavidradha Gupta Primary Care Physician ( [phone] Encounter [facility] Date(s): 08/20/21 - 01/11/[address] [address]- Attending Physician: Donald Murphy MD Admitting Physician: [...] to receive vaccine 2Admin Note: manufactured by [employer] P[employer]ur Medications albuterol 0.042% inhalation solution 3 [...] 09/08/21 13:21:00 EDT, Route to Pharmacy Electronically, [facility], Partial fill upon [...] 0 Refills, Maintenance, 04/02/20 9:29:00 EST, Tablet, [facility], Partial fill upon patient request [...] 06/21/18 11:05:15 EDT, Route to Pharmacy Electronically, [id number], [facility] Start Date: 06/21/18 Status: Ordered [...] WITH PROLONGED DEPRESSIVE REACTION Confirmed 02/03/07 Active [facility] [place] Team Senior Level Patient Confirmed Active ASTHMA [...] Team Personnel Name: Lola Belcher RN Position: [facility] RN Member Role: Primary Care Nurse Name: Jose Enrique Saul RN Position: [facility] RN Member Role: Primary Care Nurse Name: Symone Mckinnon RN Position: [facility] RN Member Role: Primary Care Nurse Name: Carolyn Pelaez RN Position: [facility] RN Member Role: Primary Care Nurse Name: Deanna Garcia RN Position: [facility] RN Member Role: Primary Care Nurse Name: Fanny Mixon RN Position: [facility] ED RN W/OE and Tasks Member Role: Primary Care Nurse Name: María Ashford RN Position: [facility] AMB Nurse Member Role: Primary Care Nurse Name: Chanelle Hernandez RN Position: [facility] PCO RN Member Role: Primary Care Nurse Name: Estelle García RN Position: [facility] RN Member Role: Primary Care Nurse Name: Deanne Rangel RN Position: [facility] RN Member Role: Primary Care Nurse Name: Carine Jimenez RN Position: [facility] RN Member Role: Primary Care Nurse Name: Jenelle Campo RN Position: [facility] RN Member Role: Primary Care Nurse Name: Keyla Godwin RN Position: [facility] RN Member Role: Primary Care Nurse Name: Yeimi Devine RN Position: [facility] RN Member Role: Primary Care Nurse Name: Mary Yan RN Position: [facility] RN Member Role: Primary Care Nurse Name: Iliana Pop RN Position: [facility] RN Member Role: Primary Care Nurse Name: Alcides Dueñas RN Position: [facility] RN Member Role: Primary Care Nurse Name: Lisa Beatty Position: [facility] Outreach Member Role: Lifetime Consulting Physician Name: Armida Beatty RN Position: [facility] RN Member Role: Primary Care Nurse Name: Roque Villasenor MD Position: [facility] Renal MD Member Role: Lifetime Consulting Physician Address: Address: [address] [place] [address], [address] [facility] [place], [place] [address] Name: Lashon Lovell RN Position: [facility] SN RN Member Role: Primary Care Nurse Name: Kristi Giraldo RN Position: [facility] RN Supv Member Role: Primary Care Nurse Name: Jerrod Casarez RN Position: [facility] RN Member Role: Primary Care Nurse Name: Rosalva Martin RN Position: [facility] RN Member Role: Primary Care Nurse Name: Armida Ochoa RN Position: [facility] RN Member Role: Primary Care Nurse Name: Deonna Murillo RN Position: [facility] RN Member Role: Primary Care Nurse Name: Felipa Diehl RN Position: [facility] HBO Wound Member Role: Primary Care Nurse Name: Evelin Powell RN Position: [facility] AMB Nurse Member Role: Primary Care Nurse Name: Deonna Pendleton RN Position: [facility] RN Member Role: Primary Care Nurse Name: Pili Kaba RN Position: [facility] GAGANDEEP RN W/OE and Tasks Member Role: Primary Care Nurse Name: Alejandro Yanes RN Position: [facility] RN Member Role: Primary Care Nurse Name: Stacey Díaz RN Position: [facility] SN RN Member Role: Primary Care Nurse Name: Jac Reese RN Position: [facility] RN Member Role: Primary Care Nurse Name: Celestine Schwartz RN Position: [facility] RN Member Role: Primary Care Nurse Name: Neeta Carpenter RN Position: [facility] RN Member Role: Primary Care Nurse Name: Susie Estrada RN Position: [facility] RN Member Role: Primary Care Nurse Name: Inna Cantor RN Position: [facility] RN Member Role: Primary Care Nurse Name: Chaparrita Pizano DO Position: [facility] Physician (General Medicine) Member Role: PCP Address: Address: [address] [place] [address]- Name: Ning Rolon RN Position: [facility] RN Member Role: Primary Care Nurse Name: Rubi Carrasco RN Position: [facility] SN RN Member Role: Primary Care Nurse Name: Lauryn Holden RN Position: [facility] RN Member Role: Primary Care Nurse Name: Shen Silvestre RN Position: [facility] RN Member Role: Primary Care Nurse Name: Jones Cervantes RN Position: [facility] RN Member Role: Primary Care Nurse Name: Olivia Caputo RN Position: [facility] RN Member Role: Primary Care Nurse Name: Brooklyn Jim RN Position: [facility] RN Member Role: Primary Care Nurse Name: Kimberly Santoro RN Position: [facility] RN Member Role: Primary Care Nurse Name: Haley Diamond RN Position: [facility] RN Member Role: Primary Care Nurse Name: Ashley Meléndez NP Position: [facility] PCO Associate Professional Member Role: Primary Care Nurse Address: Address: [address] [place] [address]- Name: Siomara Patricia [facility] RN Member Role: Primary Care Nurse Name: Neeta Painter RN Position: [facility] RN Member Role: Primary Care Nurse Name: Edith Drummond RN Position: [facility] RN Member Role: Primary Care Nurse Name: Bailey Espinal RN Position: [facility] AMB Nurse Member Role: Primary Care Nurse Name: Brooklyn Ramsey RN Position: [facility] RN Member Role: Primary Care Nurse Name: Keyla Bright RN Position: [facility] RN Member Role: Primary Care Nurse Name: Beverley Tatum RN Position: [facility] RN Member Role: Primary Care Nurse Name: Mainor Devries RN Position: [facility] RN Member Role: Primary Care Nurse Name: Yarely Richards RN Position: [facility] Map Compiler Member Role: Primary Care Nurse Name: Oralia Massey RN Position: [facility] RN Member Role: Primary Care Nurse Name: Rich WILSON pee Position: [facility] RN Member Role: Primary Care Nurse Name: Taiwo Mcgregor RN Position: [facility] RN Member Role: Primary Care Nurse Name: Cally Funes RN Position: [facility] SN RN Member Role: Primary Care Nurse Name: Marina Osorio Position: [facility] RN Member Role: Primary Care Nurse Name: Lisa Blanton RN Position: [facility] Map Compiler Member Role: Primary Care Nurse Name: Danica Stuart RN Position: [facility] AMB Nurse Member Role: Primary Care Nurse Name: Shruthi Ray RN Position: [facility] RN Member Role: Primary Care Nurse Name: Abbe Choe RN Position: [facility] RN Supv Member Role: Primary Care Nurse Name: Farideh Cat LPN Position: [facility] RN Member Role: Primary Care Nurse Name: Janis Morris RN Position: [facility] Map Compiler Member Role: Primary Care Nurse Name: Darrian Chang RN Position: [facility] Map Compiler Member Role: Primary Care Nurse Name: Jerry Mcneill RN Position: [facility] RN Member Role: Primary Care Nurse Care Team Related Persons Name: IVAN VILLASENOR Address: [place] [address] Name: REYNALDO KAUR Address: home [address] [place] [address] Name: EMMA SERRANO Address: home [address] [address] Name: PATRICK MATA Address: home [address] [place] [address] Name: FARIDEH POPE Address: [place] [address]
--- OUTSIDE RECORDS SUMMARY | 2022-08-31 00:58 | XMS_ITS | Continuity of Care Document ---
Author Name Unknown Organization [facility] Address [address] [place] [address] [address] [place] [address]- Care Team Providers Care Personnel And Payroll Technician Name Role Phone Chaparrita Pizano DO Primary Care Physician Encounter [facility] Date(s): 03/12/20 - 03/19/[address] [place] [address]- Attending Physician: Sarah Franco MD Referring Physician: [...] 1 02/02/07 Given 1Admin Note: manufactured by [employer] Medications albuterol CFC free 90 mcg/inh inhalation [...] 05/05/18 9:38:51 EDT, Route to Pharmacy Electronically, [id number]... Start Date: 05/05/18 Status: Ordered Insulin Glargine [...] 03/04/20 8:13:00 EST, Route to Pharmacy Electronically, [facility]/pharmacy #[id number], Partial fill upon patient request, 155, cm, [...] 08/30/17 8:21:42 EDT, Route to Pharmacy Electronically, [id number], [facility]/pharmacy #[id number] Start Date: 08/30/17 [...] 06/21/18 11:05:15 EDT, Route to Pharmacy Electronically, [id number], [facility] Start Date: 06/21/18 Status: [...] WITH PRO LONGED DEPRESSIVE REACTION(Confirmed) 02/03/07 Active [facility] Emeral d Team Senior Level Patient(Confirmed) [...]
--- OUTSIDE RECORDS SUMMARY | 2022-08-31 00:58 | XMS_ITS | Continuity of Care Document ---
Author Name Unknown Organization [facility] ter Address [address] [place] [address]- Care Team Providers Care Coldfusion Name Role Phone Chaparrita Pizano DO Primary Care Physician Encounter [facility] Date(s): 08/29/22 - 08/29/[address] [address]- Encounter Diagnosis Fibromyalgia(Final) - 08/29/22 Lower back pain(Final) - 08/29/22 Discharge Disposition: A-D/C Home Attending Physician: Craig Valdez DO Admitting Physician: Craig Valdez DO Referring Physician: Not on Staff, Referring MD [...] Active Adhesive Bandage skin excoriation hives Active Nexium diarrhea, vomitting Active Levaquin tingling in mouth, rash Acti ve Tylenol hives Active Reglan severe restless legs Active Contrast Dye hives itchy throat itchy Persistent Mild Active Latex vag rash Active Seafood Anaphylactic shock d ue to adverse food reaction Severe Active Lantiseptic Skin Protectant Active Nicotine Patch ana cardia Active Lyrica Angioedema Active 1per MD, tolerates with diphenhydramine 2Tolerates hydromorphone 3Tolerates Oxycontin [...] to receive vaccine 2Admin Note: manufactured by [employer] Medications albuterol CFC free 90 mcg/inh inhalation [...] 03/12/22 12:08:00 EST, Route to Pharmacy Electronically, [facility], Partial fill upon patient request if the prescr... Start Date: 03/12/22 Stop Date: 04/11/22 Status: Ordered diazepam 5 mg oral tablet 5 mg, 1, tablet, By Mouth, 2 times a day, Refills 0, Maintenance, 06/15/22 6:50:00 EDT, Partial fill upon patient request if the prescription is for a schedule II opioid drug. Start Date: 06/15/22 Status: Ordered Dilaudid Inj 1 mg, Injection, IV Push Slowly, Once, Routine, 08/29/22 17:00:00 EDT, Stop date 08/29/22 17:00:00 EDT Start Date: 08/29/22 Stop Date: 08/29/22 Status: Completed Ensure High Protein Ensure High Protein, 113, mL, By Mouth, 3 times a day with meals, 0 Refills, Maintenance, 06/08/22 13:34:00 EDT Start Date: 06/08/22 Status: Ordered HYDROmorphone 1 mg/mL oral liquid [...] opioid drug. Start Date: 11/09/21 Status: Ordered lactulose 10 gm/15 ml oral syrup 15 mL = 10 Gm, By Mouth, Daily, PRN as needed for constipation, # 480 mL, 0 Refills, Maintenance, 06/08/22 11:14:00 EDT, Syrup, Partial fill upon patient request if the prescription is for a scheduleII opioid drug. Start Date: 06/08/22 Status: Ordered lidocaine 5% topical film See Instructions, PRN Pain , Moderate, Topically Daily as needed for pain remove patches after 12 hours, # 30 patch, 0 Refills, Acute 03/09/23 23:00:00 EST, 03/12/22 12:10:00 EST, Patch, [facility], Partial fill upon patient request if... Start Date: 03/12/22 Stop Date: 03/09/23 Status: Ordered magnesium sulfate 4 g/100 mL-NaCl 0.9% intravenous solution See Instructions, patient reports taking 4 g mag Tuesday and Tue IV. 8g of IV Mg on Sat, 0 Refills, Maintenance, 06/08/22 11:15:00 EDT, Partial fill upon patient request if the prescription is for a schedule II opioid drug. Start Date: 06/08/22 Status: Ordered methocarbamol 500 mg oral tablet 1 tablet = 500 mg, By Mouth, Daily at bedtime, 0 Refills, Maintenance, 06/08/22 13:35:00 EDT, Partial fill upon patient request if the prescription is for a schedule II opioid drug. Start Date: 06/08/22 Status: Ordered NovoLOG FlexPen 100 units/mL subcutaneous solution See Instructions, Subcutaneous Injection, Use as per sliding scale, 5 Refills, Maintenance, 12/22/18 7:07:37 EST Start Date: 12/22/18 Stop Date: 01/21/19 Status: Ordered ondansetron 4 mg oral tablet, disintegrating = 4 mg, IV Push, Every 6 hours, PRN Nausea & Vomiting, # 90 tablet, 0 Refills, Maintenance, 04/02/20 9:29:00 EST, [facility], Partial fill upon patient request if the prescription is for a schedule II opioid drug., 154.94, cm, 04/02/20 8... Start Date: 04/02/20 Status: Ordered oxybutynin 5 mg/5 mL oral syrup 5 mL = 5 mg, By Mouth, 3 times a day, for bladder spasm, # 450 mL, 0 Refills, Maintenance, 06/16/2310:29:00 EDT, Syrup, [facility]acy #[id number], Partial fill upon patient request if the prescription is for a schedule II opioid drug., 155, cm, 06/16/22 7:2... Start Date: 06/16/22 Status: Ordered Pantoprazole Inj = 40 mg, IV Infusion, Daily, 0 Refills, Maintenance, 06/08/22 11:13:00 EDT Start Date: 06/08/22 Status: Ordered potassium chloride 8 mEq (600 [...] 03/12/22 12:06:00 EST, Route to Pharmacy Electronically, [facility], Partial fill uponpatient request if the [...] 06/21/18 11:05:15 EDT, Route to Pharmacy Electronically, [id number], [facility] Start Date: 06/21/18 Status: Ordered Vitamin D3 2000 intl units oral capsule 1 capsule = 2,000 International_Units, By Mouth, 3 times a day, 0 Refills, Maintenance, 02/22/18 7:05:50 EST Start Date: 02/22/18 Status: Ordered Zoloft 50 mg oral tablet 1 tablet = 50 mg, By Mouth, Daily, # 30 tablet, 0 Refills, Maintenance, 08/23/22 7:32:00 EDT, Tablet, Partial fill upon patient request if the prescription is for a schedule II opioid drug. Start Date: 08/23/22 Status: Ordered Problem List Condition Confirmation Course Effective Dates Status H ealth Status Informant Abdominal pain Confirmed Active Trigger point of abdomen Confirmed Active Abscess Confirmed Active ADJUSTMENT REACTION WITH PROLONGED DEPRESSIVE REACTION Confirmed 02/03/07 Active [facility] Outlook Team Senior Level Patient Confirmed Active ASTHMA [...] (diabetes mellitus), type 2, uncontrolled Confirmed Active Vital Signs Most recent to oldest [Reference Range]: 1 2 3 Height 155 cm (08/29/22 8:13 PM) 155 cm (08/29/22 6:14 PM) 155 cm (08/29/22 4:20 PM) Oxygen Saturation [94-100 %] 97 % (08/29/22 8:13 PM) 100 % (08/29/22 6:14 PM) 98 % (08/29/22 4:20 PM) Pulse Rate [55-90 bpm] 81 bpm (08/29/22 8:13 PM) 78 bpm (08/29/22 6:14 PM) 87 bpm (08/29/22 4:20 PM) Blood Pressure [90-138/55-84 mm Hg] 153/90mm Hg *H* (08/29/22 8:13 PM) 140/104mm Hg *H* (08/29/22 6:14 PM) 135/87mm Hg (08/29/22 4:20 PM) Respiratory Rate [16-30 br/min] 16 br/min (08/29/22 8:13 PM) 20 br/min (08/29/22 6:14 PM) 16 br/min (08/29/22 5:09 PM) Temperature [96.8-100.4 DegF] 98.4 DegF (08/29/22 8:13 PM) 98.1 DegF (08/29/22 6:14 PM) 98.3 DegF (08/29/22 4:20 PM) Mode of Delivery (Oxygen) Room air (08/29/22 8:13 PM) Room air (08/29/22 6:14 PM) Room air (08/29/22 4:20 PM) Blood pressure sites Arm, left (08/29/22 8:13 PM) Arm, right (08/29/22 6:14 PM) Arm, left (08/29/22 4:20 PM) Temperature Route Oral (08/29/22 8:13 PM) Oral (08/29/22 6:14 PM) Oral (08/29/22 4:20 PM) Dry Weight 125 kg (08/29/22 8:13 PM) 125 kg (08/29/22 6:14 PM) 125 kg (08/29/22 4:20 PM) Dry Weight Obtained Via Patient/family s tated (08/29/22 12:40 PM) Social History Social History Type Response Smoking Status Former smoker; Other : quit 04/2015; entered on: 01/30/16 Sex Note * Oralia Chew NP: PERFORM Event Display: Patient Education Leaflets Authored Date: [id number] Flank Pain with Uncertain Cause ?? [id number] Flank Pain with Uncertain Cause The flank is the area between your upper belly (abdomen) and your back. Pain there is often caused by a problem with your kidneys. It might be a kidney infection or a kidney stone. Other causes of flank pain include spinal arthritis, a pinched nerve from a back injury, a rib injury, a bruise, a back muscle strain, inflammation, or spasm. The cause of your flank pain is not certain. You may need other tests. Home care Follow these tips when caring for yourself at home: ??? You may use acetaminophen or ibuprofen to control pain, unless your healthcare provider prescribed another medicine. If you have chronic liver or kidney disease, talk with your provider before taking these medicines. Also talk with your provider first if you???ve ever had a stomach ulcer or digestive bleeding. ??? If the pain is coming from your muscles, you may get relief with ice or heat. During the first 2 days after the injury, put an ice pack on the painful area for 20 minutes every 2 to 4 hours. This will reduce swelling and pain. A hot shower, hot bath, or heating pad works well for a muscle spasm. You can start with ice, then switch to heat after 2 days. You might find that alternating ice and heat works well. Use the method that feels the best to you. ?? Follow-up care Follow up with your healthcare provider if your symptoms don???t get better over the next few days. ?? When to seek medical advice Call your healthcare provider right away??if any of these happen: ??? Repeated vomiting ??? Fever of 100.4??F (38??C) or higher, or as directed by your healthcare provider ??? Chills ??? Flank pain that gets worse ??? Pain that spreads to the front of your belly (abdomen) ??? Dizziness, weakness, or fainting ??? Blood in your urine ??? Burning feeling when you urinate or the need to urinate often??? Pain in one of your legs that gets worse ??? Numbness or weakness in a leg ?? Last Reviewed Date: 2021 ?? [id number] [employer]. All rights reserved. This information is not intended as a substitute for professional medical care. Always follow your healthcare professional's instructions. ?? Patient Care team information Care Team Personnel Name: Lola Belcher RN Position: [facility] RN Member Role: Primary Care Nurse Name: Jose Enrique Saul RN Position: [facility] RN Member Role: Primary Care Nurse Name: Symone Mckinnon RN Position: [facility] RN Member Role: Primary Care Nurse Name: Carolyn Pelaez RN Position: [facility] RN Member Role: Primary Care Nurse Name: Fanny Mixon RN Position: [facility] GAGANDEEP RN W/OE and Tasks Member Role: Primary Care Nurse Name: María Ashford RN Position: [facility] AMB Nurse Member Role: Primary Care Nurse Name: Chanelle Hernandez RN Position: [facility] AMB Nurse Member Role: Primary Care Nurse Name: Estelle García RN Position: [facility] RN Member Role: Primary Care Nurse Name: Deanne Rangel RN Position: [facility] RN Member Role: Primary Care Nurse Name: Carine Jimenez RN Position: [facility] SN RN Member Role: Primary Care Nurse Name: Jenelle Campo RN Position: [facility] RN Member Role: Primary Care Nurse Name: Keyla Godwin RN Position: [facility] RN Member Role: Primary Care Nurse Name: Yeimi Devine RN Position: [facility] RN Member Role: Primary Care Nurse Name: Mary Yan RN Position: [facility] RN Member Role: Primary Care Nurse Name: Iliana Pop RN Position: [facility] RN Member Role: Primary Care Nurse Name: Clovis Wang RN Position: [facility] RN Member Role: Primary Care Nurse Name: Alcides Dueñas RN Position: [facility] RN Member Role: Primary Care Nurse Name: Lisa Beatty Position: [facility] Outreach Member Role: Lifetime Consulting Physician Name: Armida Beatty RN Position: [facility] RN Member Role: Primary Care Nurse Name: Deonna Beatty RN Position: [facility] RN Member Role: Primary Care Nurse Name: Roque Villasenor MD Position: [facility] Renal MD Member Role: Lifetime Consulting Physician Address: Address: [address] [place] [address], [address] [facility] [address] Name: Lashon Lovell RN Position: [facility] SN RN Member Role: Primary Care Nurse Name: Kristi Giraldo RN Position: [facility] RN Supv Member Role: Primary Care Nurse Name: Jerrod Casarez RN Position: [facility] RN Member Role: Primary Care Nurse Name: Shane Riley RN Position: [facility] RN Member Role: Primary Care Nurse Name: Isac Plascencia RN Position: [facility] RN Member Role: Primary Care Nurse Name: Rosalva Martin RN Position: [facility] RN Member Role: Primary Care Nurse Name: Sheela Matt RN Position: [facility] RN Member Role: Primary Care Nurse Name: Armida Ochoa RN Position: [facility] RN Member Role: Primary Care Nurse Name: Felipa Diehl RN Position: [facility] HBO Wound Member Role: Primary Care Nurse Name: Evelin Powell RN Position: [facility] AMB Nurse Member Role: Primary Care Nurse Name: Donald Murphy MD Position: [facility] Renal MD Member Role: Lifetime Consulting Physician Address: Address: [address] [place] [address] [address] [facility] [place], [place] - Name: Pili Kaba RN Position: [facility] RN Member Role: Primary Care Nurse Name: Alejandro Yanes RN Position: [facility] RN Member Role: Primary Care Nurse Name: Stacey Díaz RN Position: [facility] SN RN Member Role: Primary Care Nurse Name: Jac Reese RN Position: [facility] RN Member Role: Primary Care Nurse Name: Erica Maya Position: [facility] TA Member Role: Lifetime Consulting Physician Name: Celestine Schwartz RN Position: [facility] RN Member Role: Primary Care Nurse Name: Neeta Carpenter RN Position: [facility] RN Member Role: Primary Care Nurse Name: Susie Estrada RN Position: [facility] RN Member Role: Primary Care Nurse Name: Inna Cantor RN Position: [facility] RN Member Role: Primary Care Nurse Name: Chaparrita Pizano DO Position: [facility] Physician (General Medicine) Member Role: PCP Address: Address: [address] [place] [address] - Name: Ning Rolon RN Position: [facility] RN Member Role: Primary Care Nurse Name: Rubi Carrasco RN Position: [facility] SN RN Member Role: Primary Care Nurse Name: Lauryn Holden RN Position: [facility] RN Member Role: Primary Care Nurse Name: Jones Cervantes RN Position: [facility] RN Member Role: Primary Care Nurse Name: Olivia Caputo RN Position: [facility] RN Member Role: Primary Care Nurse Name: Brooklyn Jim RN Position: [facility] RN Member Role: Primary Care Nurse Name: Kimberly Santoro RN Position: [facility] RN Member Role: Primary Care Nurse Name: Haley Diamond RN Position: [facility] RN Member Role: Primary Care Nurse Name: Ashley Meléndez NP Position: [facility] PCO Associate Professional Member Role: Primary Care Nurse Address: Address: [address] [place] [address] - Name: Siomara Patricia RN Position: [facility] AMB Nurse Member Role: Primary Care Nurse Name: Neeta Painter RN Position: [facility] RN Member Role: Primary Care Nurse Name: Bailey Esipnal RN Position: [facility] AMB Nurse Member Role: Primary Care Nurse Name: Brooklyn Ramsey RN Position: [facility] RN Member Role: Primary Care Nurse Name: Keyla Bright RN Position: [facility] RN Member Role: Primary Care Nurse Name: Beverley Tatum RN Position: [facility] RN Member Role: Primary Care Nurse Name: Mainor Devries RN Position: [facility] RN Member Role: Primary Care Nurse Name: Yarely Richards RN Position: [facility] Side Gluer Member Role: Primary Care Nurse Name: Oralia Massey RN Position: [facility] RN Member Role: Primary Care Nurse Name: Rich RNCassie Position: [facility] RN Member Role: Primary Care Nurse Name: Taiwo Mcgregor RN Position: [facility] RN Member Role: Primary Care Nurse Name: Cally Funes RN Position: [facility] SN RN Member Role: Primary Care Nurse Name: Marina Willard Position: [facility] [place] Member Role: Primary Care Nurse Name: Lisa Blanton RN Position: [facility] Side Gluer Member Role: Primary Care Nurse Name: Joel Blanton RN Position: [facility] RN Member Role: Primary Care Nurse Name: Danica Stuart RN Position: [facility] Nurse Member Role: Primary Care Nurse Name: Virginia Bacon RN Position: [facility] RN Member Role: Primary Care Nurse Name: Shruthi Ray RN Position: [facility] Onco RN Member Role: Primary Care Nurse Name: Abbe Choe RN Position: [facility] RN Supcheyanne Member Role: Primary Care Nurse Name: Farideh Cat LPN Position: [facility] RN Member Role: Primary Care Nurse Name: Janis Morris RN Position: [facility] Side Gluer Member Role: Primary Care Nurse Name: Darrian Chang RN Position: [facility] Side Gluer Member Role: Primary Care Nurse Name: Josef Woods RN Position: [facility] RN Member Role: Primary Care Nurse Name: Siomara Raphael RN Position: [facility] RN Member Role: Primary Care Nurse Name: Jerry Mcneill RN Position: [facility] RN Member Role: Primary Care Nurse Name: Craig Valdez DO Position: [facility] ED Medicine MD Member Role: Admitting Physician Address: Address: [address] [place] [address] Emergency Medicine [address] Name: Josef La RN Position: [facility] ED RN W/OE and Tasks Member Role: Patient Care Provider Name: Lucina Pandya Position: [facility] ED TA RICARDO Name: Oralia Chew NP Position: [facility] Associate Professional Member Role: ED Physician Senior Logistics Manager Address: Address: [address] [place] [address] [place] [address]- [place] Care Team Related Persons Name: IVAN VILLASENOR Address: [place] [address] Name: REYNALDO KAUR Address: home [address] [place] [address] Name: EMMA SERRANO Address: home [address] [address] Name: PATRICK MATA Address: home [address] [place] [address] Name: FARIDEH POPE Address: [place] [address]
--- OUTSIDE RECORDS SUMMARY | 2022-08-31 00:58 | XMS_ITS | Continuity of Care Document ---
Author Name Unknown Organization [facility] PEST CONTROL SERVICE REPRESENTATIVE Oncolog y Address [address] [place] [address]- Care Team Providers Care Compliance Analyst Name Role Phone Chaparrita Pizano DO Primary Care Physician Encounter [facility] Date(s): 04/16/20 - 05/16/20 [facility] PEST CONTROL SERVICE REPRESENTATIVE Oncology [address] [place], [place] [address] Allergies, Adverse Reactions, Alerts Substance Reaction Severity [...] 0 Refills, Maintenance, 04/03/20 13:23:00 EST, Solution, [facility]/pharmacy #[id number], Partial fill upon patient request if the [...] 0 Refills, Soft Stop, 04/09/20 13:16:00 EST, [facility], Partial fill upon [...] 0 Refills, Maintenance, 04/02/20 9:29:00 EST, Tablet, [facility], Partial fill upon patient request if the prescription is for a schedule II opioid drug., 154.94, cm, 0... Start Date: 04/02/20 Status: Ordered oxyCODONE 10 mg oral tablet 2 tablet = 20 mg, By Mouth, Every 6 hours, PRN Pain , Severe, take 1 tab for less severe pain, # 56tablet, 0 Refills, Maintenance, 05/09/20 16:38:00 EDT, Tablet, [facility]/pharmacy #[id number], Partial fill upon patient request if the [...] 08/30/17 8:21:42 EDT, Route to Pharmacy Electronically, [id number], [facility]/pharmacy #[id number] Start Date: 08/30/17 Status: Ordered Tums 500 mg oral tablet, chewable 500 mg, 1, tablet, Chew, Every 4 hours, PRN, # 180 tablet, Refills 0, Tot. Refills 0, Maintenance, Dyspepsia, 06/21/18 11:05:15 EDT, Route to Pharmacy Electronically, [id number], [facility] Start Date: 06/21/18 [...] WITH PRO LONGED DEPRESSIVE REACTION(Confirmed) 02/03/07 Active [facility] Emeral d Team Senior Level Patient(Confirmed) Active [...]
--- OUTSIDE RECORDS SUMMARY | 2022-08-31 00:58 | XMS_ITS | Continuity of Care Document ---
Author Name Unknown Organization [facility] PAINTER AND BODY MECHANIC APPRENTICE Oncolog y Address [address] [place] [address]- Care Team Providers Care Steel Buffer Name Role Phone Jerica Chaparrita DO Primary Care Physician Encounter [facility] Date(s): 04/15/20 - 05/15/20 [facility] PAINTER AND BODY MECHANIC APPRENTICE Oncology [address] [place], [place] [address] Allergies, Adverse Reactions, Alerts Substance Reaction [...] 13-valent vaccine 01/20/15 Given pneumococcal 23-valent vaccine 9/16/12 Given Pneumococcal Poly (PPV23) (oldterm) 02/02/07 Given Influenza Virus Vaccine (oldterm) 1 02/02/07 Given 1Admin Note: manufactured by [employer] Medications albuterol 0.042% inhalation solution 3 [...] 0 Refills, Maintenance, 04/03/20 13:23:00 EST, Solution, [facility]/pharmacy #[id number], Partial fill upon patient request if the [...] 0 Refills, Soft Stop, 04/09/20 13:16:00 EST, [facility], Partial fill upon patient [...] 0 Refills, Maintenance, 04/02/20 9:29:00 EST, Tablet, [facility], Partial fill upon patient request if the prescription is for a schedule II opioid drug., 154.94, cm, 0... Start Date: 04/02/20 Status: Ordered oxyCODONE 10 mg oral tablet 2 tablet = 20 mg, By Mouth, Every 6 hours, PRN Pain , Severe, take 1 tab for less severe pain, # 56tablet, 0 Refills, Maintenance, 05/09/20 16:38:00 EDT, Tablet, [facility]/pharmacy #[id number], Partial fill upon patient request if the [...] 08/30/17 8:21:42 EDT, Route to Pharmacy Electronically, [id number], [facility]/pharmacy #[id number] Start Date: 08/30/17 Status: Ordered Tums 500 mg oral tablet, chewable 500 mg, 1, tablet, Chew, Every 4 hours, PRN, # 180 tablet, Refills 0, Tot. Refills 0, Maintenance, Dyspepsia, 06/21/18 11:05:15 EDT, Route to Pharmacy Electronically, [id number], [facility] Start Date: 06/21/18 Status: [...] WITH PRO LONGED DEPRESSIVE REACTION(Confirmed) 02/03/07 Active [facility] Emeral d Team Senior Level [...]
--- OUTSIDE RECORDS SUMMARY | 2022-08-31 00:58 | XMS_ITS | Continuity of Care Document ---
Author Name Unknown Organization [facility] Address [address] [place] [id number]- Care Team Providers Care Hospital Scientist Name Role Phone JericaChaparrita apple DO Primary Care Physician ( [phone] Encounter [facility] [place] Date(s): 07/09/20 - 08/08/20 [facility] [address] [place] [id number] Attending Physician: Admdavid, Jamie Admitting Physician: Admtr, ArJacey Referring Physician: Admtr, Ar8 Allergies, Adverse Reactions, [...] to receive vaccine 2Admin Note: manufactured by [employer] Medications albuterol 0.042% inhalation solution 3 [...] 0 Refills, Soft Stop, 04/09/20 13:16:00 EST, [facility], Partial fill upon patient [...] 08/14/20 14:34:00 EDT, 07/31/20 14:34:00 EDT, Tablet, [facility], Partialfill upon patient request if the prescription is for a... Start Date: 07/31/20 Stop Date: 08/14/20 Status: Ordered ondansetron 4 mg oral tablet, disintegrating = 4 mg, By Mouth, Every 6 hours, PRN Nausea & Vomiting, # 90 tablet, 0 Refills, Maintenance, 04/02/20 9:29:00 EST, Tablet, [facility], Partial fill upon patient request if the prescription is for a schedule II opioid drug., 154.94, cm, 0... Start Date: 04/02/20 Status: Ordered oxyCODONE 10 mg oral tablet See Instructions, 1 tablet By Mouth 5 times per day for 7 days, per pain services recommedations, #35 tablet, 0 Refills, Maintenance, 06/20/20 8:49:00 EDT, Tablet, [id number], Partial fill upon patient request if [...] 08/30/17 8:21:42 EDT, Route to Pharmacy Electronically, [id number], [facility] #[id number] Start Date: 08/30/17 Status: Ordered Tums 500 mg oral tablet, chewable 500 mg, 1, tablet, Chew, Every 4 hours, PRN, # 180 tablet, Refills 0, Tot. Refills 0, Maintenance, Dyspepsia, 06/21/18 11:05:15 EDT, Route to Pharmacy Electronically, [id number], [facility] Start Date: 06/21/18 Status: [...] WITH PRO LONGED DEPRESSIVE REACTION(Confirmed) 02/03/07 Active [facility] Emeral d Team Senior Level [...]
--- OUTSIDE RECORDS SUMMARY | 2022-08-31 00:58 | XMS_ITS | Continuity of Care Document ---
Author Name Unknown Organization [facility] ter Address [address] [place] [address]- Care Team Providers Care Dog Daycare Provider Name Role Phone Jerica DOChaparrita Primary Care Physician [place] [facility] [place] - 02/01/[address] [address]- Attending Physician: Donald Murphy MD Admitting Physician: [...] to receive vaccine 2Admin Note: manufactured by [employer] Medications albuterol 0.042% inhalation solution 3 [...] 09/08/21 13:21:00 EDT, Route to Pharmacy Electronically, [facility], Partial fill upon patient request [...] 0 Refills, Maintenance, 04/02/20 9:29:00 EST, Tablet, [facility], Partial fill upon patient request [...] 06/21/18 11:05:15 EDT, Route to Pharmacy Electronically, [id number], [facility] Start Date: 06/21/18 Status: [...] WITH PROLONGED DEPRESSIVE REACTION Confirmed 02/03/07 Active [place] [facility] Team Senior Level Patient Confirmed Active ASTHMA [...] Team Personnel Name: Lola Belcher RN Position: [facility] RN Member Role: Primary Care Nurse Name: Jose Enrique Saul RN Position: [facility] RN Member Role: Primary Care Nurse Name: Symone Mckinnon RN Position: [facility] RN Member Role: Primary Care Nurse Name: Carolyn Pelaez RN Position: [facility] RN Member Role: Primary Care Nurse Name: Deanna Garcia RN Position: [facility] RN Member Role: Primary Care Nurse Name: Fanny Mixon RN Position: [facility] ED RN W/OE and Tasks Member Role: Primary Care Nurse Name: aMría Ashford RN Position: [facility] AMB Nurse Member Role: Primary Care Nurse Name: Chanelle Hernandez RN Position: [facility] PCO RN Member Role: Primary Care Nurse Name: Estelle García RN Position: [facility] RN Member Role: Primary Care Nurse Name: Deanne Rangel RN Position: [facility] RN Member Role: Primary Care Nurse Name: Carine Jimenez RN Position: [facility] RN Member Role: Primary Care Nurse Name: Jenelle Campo RN Position: [facility] RN Member Role: Primary Care Nurse Name: Keyla Godwin RN Position: [facility] RN Member Role: Primary Care Nurse Name: Yeimi Devine RN Position: [facility] RN Member Role: Primary Care Nurse Name: Mary Yan RN Position: [facility] RN Member Role: Primary Care Nurse Name: Iliana Pop RN Position: [facility] RN Member Role: Primary Care Nurse Name: Alcides Dueñas RN Position: [facility] RN Member Role: Primary Care Nurse Name: Lisa Beatty Position: [facility] Outreach Member Role: Lifetime Consulting Physician Name: Armida Beatty RN Position: [facility] RN Member Role: Primary Care Nurse Name: Roque Villasenor MD Position: [facility] Renal MD Member Role: Lifetime Consulting Physician Address: Address: [address] [place] [address], [address] [facility] [address] Name: Lashon Lovell RN Position: [facility] SN RN Member Role: Primary Care Nurse Name: Kristi Giraldo RN Position: [facility] RN Supv Member Role: Primary Care Nurse Name: Jerrod Casarez RN Position: [facility] RN Member Role: Primary Care Nurse Name: Rosalva Martin RN Position: [facility] RN Member Role: Primary Care Nurse Name: Armida Ochoa RN Position: [facility] RN Member Role: Primary Care Nurse Name: Deonna Murillo RN Position: [facility] RN Member Role: Primary Care Nurse Name: Felipa Diehl RN Position: [facility] HBO Wound Member Role: Primary Care Nurse Name: Evelin Powell RN Position: [facility] AMB Nurse Member Role: Primary Care Nurse Name: Deonna Pendleton RN Position: [facility] RN Member Role: Primary Care Nurse Name: Pili Kaba RN Position: [facility] RN Member Role: Primary Care Nurse Name: Alejandro Yanes RN Position: [facility] RN Member Role: Primary Care Nurse Name: Stacey Díaz RN Position: [facility] SN RN Member Role: Primary Care Nurse Name: Jac Reese RN Position: [facility] RN Member Role: Primary Care Nurse Name: Celestine Schwartz RN Position: [facility] RN Member Role: Primary Care Nurse Name: Neeta Carpenter RN Position: [facility] RN Member Role: Primary Care Nurse Name: Susie Estrada RN Position: [facility] RN Member Role: Primary Care Nurse Name: Inna Cantor RN Position: [facility] RN Member Role: Primary Care Nurse Name: Chaparrita Pizano DO Position: [facility] Physician (General Medicine) Member Role: PCP Address: Address: [address] [place] [address]- Name: Ning Rolon RN Position: [facility] RN Member Role: Primary Care Nurse Name: Rubi Carrasco RN Position: [facility] SN RN Member Role: Primary Care Nurse Name: Lauryn Holden RN Position: [facility] RN Member Role: Primary Care Nurse Name: Shen Silvestre RN Position: [facility] RN Member Role: Primary Care Nurse Name: Jones Cervantes RN Position: [facility] RN Member Role: Primary Care Nurse Name: Olivia Caputo RN Position: [facility] RN Member Role: Primary Care Nurse Name: Brooklyn Jim RN Position: [facility] RN Member Role: Primary Care Nurse Name: Kimberly Santoro RN Position: [facility] RN Member Role: Primary Care Nurse Name: Haley Diamond RN Position: [facility] RN Member Role: Primary Care Nurse Name: Ashley Meléndez NP Position: [facility] PCO Associate Professional Member Role: Primary Care Nurse Address: Address: [address] [place] [address]- Name: Siomara Patricia RN Position: [facility] PCO RN Member Role: Primary Care Nurse Name: Neeta Painter RN Position: [facility] RN Member Role: Primary Care Nurse Name: Edith Drummond RN Position: [facility] RN Member Role: Primary Care Nurse Name: Bailey Espinal RN Position: [facility] AMB Nurse Member Role: Primary Care Nurse Name: Brooklyn Ramsey RN Position: [facility] RN Member Role: Primary Care Nurse Name: Keyla Bright RN Position: [facility] RN Member Role: Primary Care Nurse Name: Beverley Tatum RN Position: [facility] RN Member Role: Primary Care Nurse Name: Mainor Devries RN Position: [facility] RN Member Role: Primary Care Nurse Name: Yarely Richards RN Position: [facility] Hospital Skiver Operator Member Role: Primary Care Nurse Name: Oralia Massey RN Position: [facility] RN Member Role: Primary Care Nurse Name: Cassie Villanueva RN Position: [facility] RN Member Role: Primary Care Nurse Name: Taiwo Mcgregor RN Position: [facility] RN Member Role: Primary Care Nurse Name: Cally Funes RN Position: [facility] SN RN Member Role: Primary Care Nurse Name: Marina Osorio Position: [facility] RN Member Role: Primary Care Nurse Name: Lisa Blanton RN Position: [facility] Skiver Operator Member Role: Primary Care Nurse Name: Danica [place] RN Position: [facility] AMB Nurse Member Role: Primary Care Nurse Name: Shruthi Ray RN Position: [facility] RN Member Role: Primary Care Nurse Name: Abbe Choe RN Position: [facility] RN Supv Member Role: Primary Care Nurse Name: Farideh Cat LPN Position: [facility] RN Member Role: Primary Care Nurse Name: Janis Morris RN Position: [facility] Skiver Operator Member Role: Primary Care Nurse Name: Darrian Chang RN Position: [facility] Skiver Operator Member Role: Primary Care Nurse Name: Jerry Mcneill RN Position: [facility] RN Member Role: Primary Care Nurse Care Team Related Persons Name: KENNEY VILLASENORINDA Address: [place] [address] Name: REYNALDO KARU Address: home [address] [place] [address] Name: EMMA SERRANO Address: [address] [address] Name: PATRICK MATA Address: [address] [place] [address] Name: FARIDEH POPE Address: [place] [address]
--- OUTSIDE RECORDS SUMMARY | 2022-08-31 00:58 | XMS_ITS | Continuity of Care Document ---
Author Name Unknown Organization [facility] ter Address [address] [place] [address]- Care Team Providers Care Medical Esthetician Name Role Phone Darryl Pizano DOdavidradha Gupta Primary Care Physician [place] [facility] [place] - 02/15/[address] [address]- Attending Physician: Donald Murphy MD Admitting Physician: [...] to receive vaccine 2Admin Note: manufactured by [employer] Medications albuterol 0.042% inhalation solution 3 [...] 09/08/21 13:21:00 EDT, Route to Pharmacy Electronically, [facility], Partial fill upon [...] 0 Refills, Maintenance, 04/02/20 9:29:00 EST, Tablet, [facility], Partial fill upon patient request if [...] 06/21/18 11:05:15 EDT, Route to Pharmacy Electronically, [id number], [facility] Start Date: 06/21/18 Status: Ordered Vitamin [...] WITH PROLONGED DEPRESSIVE REACTION Confirmed 02/03/07 Active [place] [facility] Team Senior Level Patient Confirmed Active ASTHMA [...] Team Personnel Name: Lola Belcher RN Position: [facility] RN Member Role: Primary Care Nurse Name: Jose Enrique Saul RN Position: [facility] RN Member Role: Primary Care Nurse Name: Symone Mckinnon RN Position: [facility] RN Member Role: Primary Care Nurse Name: Carolyn Pelaez RN Position: [facility] RN Member Role: Primary Care Nurse Name: Deanna Garcia RN Position: [facility] RN Member Role: Primary Care Nurse Name: Fanny Mixon RN Position: [facility] ED RN W/OE and Tasks Member Role: Primary Care Nurse Name: María Ashford RN Position: [facility] AMB Nurse Member Role: Primary Care Nurse Name: Chanelle Hernandez RN Position: [facility] PCO RN Member Role: Primary Care Nurse Name: Estelle García RN Position: [facility] RN Member Role: Primary Care Nurse Name: Deanne Rangel RN Position: [facility] RN Member Role: Primary Care Nurse Name: Carine Jimenez RN Position: [facility] SN RN Member Role: Primary Care Nurse Name: Jenelle Campo RN Position: [facility] RN Member Role: Primary Care Nurse Name: Keyla Godwin RN Position: [facility] RN Member Role: Primary Care Nurse Name: Yeimi Devine RN Position: [facility] RN Member Role: Primary Care Nurse Name: Mray Yan RN Position: [facility] RN Member Role: Primary Care Nurse Name: Iliana Pop RN Position: [facility] RN Member Role: Primary Care Nurse Name: Alcides Dueñas RN Position: [facility] RN Member Role: Primary Care Nurse Name: Lisa Beatty Position: [facility] Outreach Member Role: Lifetime Consulting Physician Name: Armida Beatty RN Position: [facility] RN Member Role: Primary Care Nurse Name: Roque Villasenor MD Position: [facility] Renal MD Member Role: Lifetime Consulting Physician Address: Address: [address] [place] [address], [address] [facility] [place], [place] [address] Name: Lashon Lovell RN Position: [facility] SN RN Member Role: Primary Care Nurse Name: Kristi Giraldo RN Position: [facility] RN Supv Member Role: Primary Care Nurse Name: Jerrod Casarez RN Position: [facility] RN Member Role: Primary Care Nurse Name: Rosalva Martin RN Position: [facility] RN Member Role: Primary Care Nurse Name: Armida Ochoa RN Position: [facility] RN Member Role: Primary Care Nurse Name: Deonna Murillo RN Position: [facility] RN Member Role: Primary Care Nurse Name: Felipa Diehl RN Position: [facility] HBO Wound Member Role: Primary Care Nurse Name: Evelin Powell RN Position: [facility] AMB Nurse Member Role: Primary Care Nurse Name: Deonna Pendleton RN Position: [facility] RN Member Role: Primary Care Nurse Name: Pili Kaba RN Position: [facility] GAGANDEEP RN W/OE and Tasks Member Role: Primary Care Nurse Name: Alejandro Yanes RN Position: [facility] RN Member Role: Primary Care Nurse Name: Stacey Díaz RN Position: [facility] SN RN Member Role: Primary Care Nurse Name: Jac Reese RN Position: [facility] RN Member Role: Primary Care Nurse Name: Celestine Schwartz RN Position: [facility] RN Member Role: Primary Care Nurse Name: Neeta Carpenter RN Position: [facility] RN Member Role: Primary Care Nurse Name: Susie Estrada RN Position: [facility] RN Member Role: Primary Care Nurse Name: Inna Cantor RN Position: [facility] RN Member Role: Primary Care Nurse Name: Chaparrita Pizano DO Position: [facility] Physician (General Medicine) Member Role: PCP Address: Address: [address] [place] [address]- Name: Ning Rolon RN Position: [facility] RN Member Role: Primary Care Nurse Name: Rubi Carrasco RN Position: [facility] SN RN Member Role: Primary Care Nurse Name: Lauryn Holden RN Position: [facility] RN Member Role: Primary Care Nurse Name: Shen Silvestre RN Position: [facility] RN Member Role: Primary Care Nurse Name: Jones Cervantes RN Position: [facility] RN Member Role: Primary Care Nurse Name: Olivia Caputo RN Position: [facility] RN Member Role: Primary Care Nurse Name: Brooklyn Jim RN Position: [facility] RN Member Role: Primary Care Nurse Name: Kimberly Santoro RN Position: [facility] RN Member Role: Primary Care Nurse Name: Haley Diamond RN Position: [facility] RN Member Role: Primary Care Nurse Name: Ashley Meléndez NP Position: [facility] PCO Associate Professional Member Role: Primary Care Nurse Address: Address: [address] [place] [address]- Name: Siomara Patricia [facility] RN Member Role: Primary Care Nurse Name: Neeta Painter RN Position: [facility] RN Member Role: Primary Care Nurse Name: Edith Drummond RN Position: [facility] RN Member Role: Primary Care Nurse Name: Bailey Espinal RN Position: [facility] AMB Nurse Member Role: Primary Care Nurse Name: Brooklyn Ramsey RN Position: [facility] RN Member Role: Primary Care Nurse Name: Keyla Bright RN Position: [facility] RN Member Role: Primary Care Nurse Name: Beverley Tatum RN Position: [facility] RN Member Role: Primary Care Nurse Name: Mainor Devries RN Position: [facility] RN Member Role: Primary Care Nurse Name: Yarely Richards RN Position: [facility] [employer] Developer Member Role: Primary Care Nurse Name: Oralia Massey RN Position: [facility] RN Member Role: Primary Care Nurse Name: Rich WILSON pee Position: [facility] RN Member Role: Primary Care Nurse Name: Taiwo Mcgregor RN Position: [facility] RN Member Role: Primary Care Nurse Name: Cally Funes RN Position: [facility] SN RN Member Role: Primary Care Nurse Name: Marina Osorio Position: [facility] RN Member Role: Primary Care Nurse Name: Lisa Blanton RN Position: [facility] [employer] Web Developer Member Role: Primary Care Nurse Name: Danica [place] RN Position: [facility] AMB Nurse Member Role: Primary Care Nurse Name: Shruthi Ray RN Position: [facility] RN Member Role: Primary Care Nurse Name: Abbe Choe RN Position: [facility] RN Supv Member Role: Primary Care Nurse Name: Farideh Cat LPN Position: [facility] RN Member Role: Primary Care Nurse Name: Janis Morris RN Position: [facility] [employer] Web Developer Member Role: Primary Care Nurse Name: Darrian Chang RN Position: [facility] [employer] Web Developer Member Role: Primary Care Nurse Name: Jerry Mcneill RN Position: [facility] RN Member Role: Primary Care Nurse Care Team Related Persons Name: IVAN VILLASENOR Address: [place] [address] Name: REYNALDO KAUR Address: [address] [place] [address] Name: EMMA SERRANO Address: home [address] [address] Name: PATRICK MATA Address: home [address] [place] [address] Name: FARIDEH POPE Address: [place] [address]
--- OUTSIDE RECORDS SUMMARY | 2022-08-31 00:59 | XMS_ITS | Continuity of Care Document ---
Author Name Unknown Organization [facility] ter Address [address] [place] [address]- Care Team Providers Care Pairer Inspector Name Role Phone Chaparrita Pizano DO Primary Care Physician [id number] Date(s): 10/05/20 - 10/08/[address] [address]- Discharge Disposition: A-D/C Home Attending Physician: Timmy Rodney MD Admitting Physician: Bryant Candelaria MD Referring Physician: Not on Staff, Referring [...] to receive vaccine 2Admin Note: manufactured by [employer] Medications albuterol 0.042% inhalation solution 3 [...] 08/31/21 13:21:00 EDT, 08/31/20 13:21:00 EDT, Tablet, [facility]/pharmacy #[id number], Partial fill upon patient request... Start Date: 08/31/20 Stop Date: 08/31/21 Status: Ordered Insulin Glargine Inj = 25 units, Subcutaneous Injection, Daily at bedtime, 0 Refills, Maintenance, 07/31/20 12:52:00 EDT, Injection, Partial fill upon patient request if the prescription is for a schedule II opioid drug. Start Date: 07/31/20 Status: Ordered lactulose 10 gm/15 ml oral syrup 30 mL = 20 Gm, By Mouth, 3 times a day, # 480 mL, 1 Refills, Acute 08/31/22 13:22:00 EDT, 08/31/20 13:21:00 EDT, Syrup, [facility]/pharmacy #[id number], Partial fill upon [...] 0 Refills, Maintenance, 04/02/20 9:29:00 EST, Tablet, [facility], Partial fill upon patient request [...] tablet, By Mouth, Every 6 hours, PRN, for 3 days, # 12 tablet, Refills 0, Tot. Refills 0,Acute 10/11/20 16:18:00 EDT, Pain , Moderate, 10/08/20 16:18:00 EDT, Print Requisition, Partial fill upon patient request if the prescription is for a... Start Date: 10/08/20 Stop Date: 10/11/20 Status: Ordered oxyCODONE 5 mg oral tablet 10 mg, Tablet, By Mouth, Every 6 hours, PRN for Pain , Moderate, Routine, 10/07/20 8:10:00 EDT Start Date: 10/07/20 Stop Date: 10/09/20 Status: Discontinued propranolol 120 mg oral capsule, extended release 1 capsule = 120 mg, By Mouth, Daily at bedtime, # 30 capsule, 5 Refills, Maintenance, 01/17/18 9:48:32 EST, CR Capsule, Increasing dose. Start Date: 01/17/18 Stop Date: 07/16/18 Status: Ordered senna 17 mg oral tablet 2 tablet = 34 mg, By Mouth, Daily at bedtime, # 30 tablet, 1 Refills, Maintenance, 08/31/20 13:22:00 EDT, [facility]/pharmacy #[id number], Partial fill upon patient request if the prescription is for a schedule II opioid drug., 156, cm, 08/01/20 6:00:00 EDT, Heigh... Start Date: 08/31/20 Status: Ordered Senna Plus 50 mg-8.6 mg oral tablet 2 tablet, By Mouth, Daily at bedtime, Maintenance, 10/04/18 16:17:29 EDT, Tablet Start Date: 10/04/18 Status: Ordered simvastatin 40 mg oral tablet 40 mg, 1, tablet, By Mouth, Daily at bedtime, # 90 tablet, Refills 1, Tot. Refills 1, Maintenance, 08/30/17 8:21:42 EDT, Route to Pharmacy Electronically, [id number], [facility]/pharmacy #[id number] Start Date: 08/30/17 Status: Ordered Tums 500 mg oral tablet, chewable 500 mg, 1, tablet, Chew, Every 4 hours, PRN, # 180 tablet, Refills 0, Tot. Refills 0, Maintenance, Dyspepsia, 06/21/18 11:05:15 EDT, Route to Pharmacy Electronically, [id number], [facility] Start Date: 06/21/18 Status: [...] PRO LONGED DEPRESSIVE REACTION(Confirmed) 02/03/07 Active [facility] Emeral d Team Senior Level [...] Exam Date Time Procedure Performing Provider Status 10/08/20 3:45 AM Knee 1 or 2 Views Left [place] , Nehemias son; Auth (Verified) Notes: (Knee 1 or 2 Views Left) Reason For Exam: Pain RESULT: Knee 1 or 2 Views Left Knee 1 or 2 Views Left, 2 views Reason: Pain; Clinical Question(s): Dislocation COMPARISON: 08/19/2019 FINDINGS: Questionable well-corticated osseous fragment at the proximal posterior tibia overlying the proximal fibula which may represent a healed fracture deformity. Mild tricompartmental degenerative osteoarthritis. Mild to moderate narrowing of the medial knee compartment. Possible minimal joint effusion. IMPRESSION: Possible chronic fracture deformity at the proximal posterior tibia which may represent a prior avulsion fracture. Questionable minimal joint effusion. I have personally reviewed the images and I agree with this report. WSN: [id number] Ordering Physician: Luann Gong Dictated By: Amy Oliva DO Dictated Date/Time: 10/08/20 12:56 p Reviewed By: Aguila Dennis MD Signed By: Aguila Dennis MD Signed Date/Time: 10/08/20 1:01 pm Transcribed By: DEIDRE Transcribed Date/Time: 10/08/20 8:06 am * Exam Date Time Procedure Performing Provider Status 10/05/20 7:46 PM Abdomen AP Melanie Vogel; Auth ( Verified) Notes: (Abdomen AP) Reason For Exam: Nausea/Vomiting RESULT: XR Abdomen AP XR Abdomen AP 1 view INDICATION/CLINICAL QUESTION: Nausea Vomiting; Clinical Question(s): Obstruction. COMPARISON: Multiple priors, most recently 12/03/2020. FINDINGS: Normal bowel gas pattern. No evidence of obstruction. No evidence of pneumoperitoneum. No organomegaly, masses or calcifications. No acute bone findings. Unchanged mild degenerative changes. Status post cholecystectomy. Status post hernia repair with mesh. IMPRESSION: No evidence of bowel obstruction. I have personally reviewed the images and I agree with this report. WSN: [id number] Ordering Physician: Tessa Ceballos Dictated By: Saloni Gastelum DO Dictated Date/Time: 10/05/20 8:04 pm Reviewed By: Willian Dejesus MD Signed By: Willian Dejesus MD Signed Date/Time: 10/05/20 8:09 pm Transcribed By: DEIDRE Transcribed Date/Time: 10/05/20 8:02 pm Vital Signs Most recent to oldest [Reference Range]: 1 2 3 Height 154 cm (10/08/20 3:11 PM) 154 cm (10/08/20 11:12 AM) 154 cm (10/08/20 7:33 AM) Weight 128.5 kg (10/05/20 4:08 PM) Oxygen Saturation [94-100 %] 99 % (10/08/20 3:11 PM) 100 % (10/08/20 11:12 AM) 98 % (10/08/20 7:33 AM) Pulse Rate [55-90 bpm] 62 bpm (10/08/20 3:11 PM) 72 bpm (10/08/20 11:12 AM) 66 bpm (10/08/20 7:33 AM) Body Mass Index [18.5-24.99] 54.18 *>HHI* (10/05/20 4:08 PM) Blood Pressure [90-138/55-84 mm Hg] 125/68mm Hg (10/08/20 3:11 PM) 119/53mm Hg (10/08/20 11:12 AM) 117/72mm Hg (10/08/20 7:33 AM) Respiratory Rate [16-30 br/min] 18 br/min (10/08/20 4:49 PM) 20 br/min (10/08/20 3:11 PM) 20 br/min (10/08/20 11:12 AM) Temperature [96.8-100.4 DegF] 98 DegF (10/08/20 3:11 PM) 98.3 DegF (10/08/20 11:12 AM) 98.3 DegF (10/08/20 7:33 AM) Mode of Delivery (Oxygen) Room air (10/08/20 3:11 PM) Room air (10/08/20 11:12 AM) Room air (10/08/20 7:33 AM) Blood pressure sites Arm, left (10/08/20 3:11 PM) Arm, right (10/08/20 11:12 AM) Arm, left (10/08/20 7:33 AM) Temperature Route Oral (10/08/20 3:11 PM) Oral (10/08/20 11:12 AM) Oral (10/08/20 7:33 AM) Dry Weight 128.5 kg (10/05/20 4:08 PM) Social History Social History Type Response Smoking Status Former smoker; Other : quit 04/2015; entered on: 01/30/16 Sex Female
--- OUTSIDE RECORDS SUMMARY | 2022-08-31 00:59 | XMS_ITS | Continuity of Care Document ---
Author Name Unknown Organization [facility] Address [address] [place] [address]- Care Team Providers Care Systems Technician Name Role Phone JericaChaparrita apple DO Primary Care Physician ( [phone] Encounter [facility] Date(s): 06/20/20 - 07/20/20 [facility] [address] [place], [place] [address] Allergies, Adverse Reactions, Alerts Substance Reaction [...] 1 02/02/07 Given 1Admin Note: manufactured by [employer] Medications albuterol 0.042% inhalation solution 3 [...] Refills, Soft Stop, 06/23/20 10:08:00 EDT, Tablet, [facility]/pharmacy #[id number], Partial fill upon patient request if the prescription is for a schedule II opioid d... Start Date: 06/23/20 Status: Ordered insulin glargine 100 units/mL subcutaneous solution = 25 units, Subcutaneous Injection, Daily at bedtime, # 12 mL, 0 Refills, Maintenance, 04/03/20 13:23:00 EST, Solution, [facility]/pharmacy #[id number], Partial fill upon [...] 0 Refills, Soft Stop, 04/09/20 13:16:00 EST, [facility], Partial fill upon patient [...] 0 Refills, Maintenance, 04/02/20 9:29:00 EST, Tablet, [facility], Partial fill upon patient request if the prescription is for a schedule II opioid drug., 154.94, cm, 0... Start Date: 04/02/20 Status: Ordered oxyCODONE 10 mg oral tablet See Instructions, 1 tablet By Mouth 5 times per day for 7 days, per pain services recommedations, #35 tablet, 0 Refills, Maintenance, 06/20/20 8:49:00 EDT, Tablet, [facility]/pharmacy #[id number], Partial fill upon [...] 08/30/17 8:21:42 EDT, Route to Pharmacy Electronically, [id number], [facility]/pharmacy #[id number] Start Date: 08/30/17 Status: Ordered Tums 500 mg oral tablet, chewable 500 mg, 1, tablet, Chew, Every 4 hours, PRN, # 180 tablet, Refills 0, Tot. Refills 0, Maintenance, Dyspepsia, 06/21/18 11:05:15 EDT, Route to Pharmacy Electronically, [id number], [facility] 3 Start Date: 06/21/18 Status: [...] WITH PRO LONGED DEPRESSIVE REACTION(Confirmed) 02/03/07 Active [facility] Emeral d Team Senior Level [...]
--- OUTSIDE RECORDS SUMMARY | 2022-08-31 00:59 | XMS_ITS | Continuity of Care Document ---
Author Name Unknown Organization [facility] ter Address [address] [place] [address]- Care Team Providers Care Tafe Teacher Name Role Phone Jerica DOChaparrita Primary Care Physician ( [phone] [place] [facility] [place] - 09/29/[address] [address] Attending Physician: Donald Murphy MD Admitting Physician: Donald Murphy MD Referring Physician: Donald Murphy MD Allergies, Adverse Reactions, Alerts Substance Reaction Severity Status doxycycline mouth swelling Active ceftriaxone hives Active iodine topical swelling itching Active Levaquin tingling in mouth, rash Acti ve penicillin throat swelling Rash Persistent Severe Active famotidine vomiting Active morphine 1, 2, 3 hives Active Pepcid vomitng Active Zofran 4 can only be given w/ benadryl hives Active Adhesive Bandage skin excoriation hives Active Compazine shortness of breath Active Tylenol hives Active Reglan severe restless legs Active Contrast Dye hives itchy throat itchy Persistent Mild Active Latex vag rash Active Seafood Anaphylactic shock d ue to adverse food reaction Severe Active Nexium diarrhea, vomitting Active Nicotine Patch ana cardia Active Lantiseptic Skin Protectant Active Lyrica Angioedema Active 1plizzie SHERIFF, tolerates [...] to receive vaccine 2Admin Note: manufactured by [employer] Medications albuterol 0.042% inhalation solution 3 [...] 08/31/21 13:21:00 EDT, 08/31/20 13:21:00 EDT, Tablet, [facility]/pharmacy #[id number], Partial fill upon patient request... Start Date: [...] 08/31/22 13:22:00 EDT, 08/31/20 13:21:00 EDT, Syrup, [facility]/pharmacy #[id number], Partial fill upon patient request if the prescription is for a schedule II opioid drug., 30 mL By Mouth 3 times... Start Date: 08/31/20 Stop Date: 08/31/22 Status: Ordered Lantus 100 u/ml subcutaneous solution See Instructions, Subcutaneous Injection, Use as directed for Diabetes mellitus type 1. (Max Dose =15 units/day), 10 mL vials, 5 Refills, Maintenance, 09/13/20 6:31:00 EDT, Partial fill upon patientrequest if the prescription is for a schedule II op... Start Date: 09/13/20 Stop Date: 10/13/20 Status: Ordered LORazepam 0.5 mg oral tablet [...] 0 Refills, Soft Stop, 04/09/20 13:16:00 EST, [facility], Partial fill upon patient request [...] 0 Refills, Maintenance, 04/02/20 9:29:00 EST, Tablet, [facility], Partial fill upon patient request if the prescription is for a schedule II opioid drug., 154.94, cm, 0... Start Date: 04/02/20 Status: Ordered oxyCODONE 10 mg oral tablet See Instructions, 1 tablet By Mouth 5 times per day for 7 days, per pain services recommedations, #35 tablet, 0 Refills, Maintenance, 06/20/20 8:49:00 EDT, Tablet, [facility]/pharmacy #[id number], Partial fill upon patient request [...] tablet, 1 Refills, Maintenance, 08/31/20 13:22:00 EDT, [facility]/pharmacy #[id number], Partial fill upon patient request if the prescription is for a schedule II opioid drug., 156, cm, 08/01/20 6:00:00 EDT, [facility]... Start Date: 08/31/20 Status: Ordered Senna Plus 50 mg-8.6 mg oral tablet 2 tablet, By Mouth, Daily at bedtime, Maintenance, 10/04/18 16:17:29 EDT, Tablet Start Date: 10/04/18 Status: Ordered simvastatin 40 mg oral tablet 40 mg, 1, tablet, By Mouth, Daily at bedtime, # 90 tablet, Refills 1, Tot. Refills 1, Maintenance, 08/30/17 8:21:42 EDT, Route to Pharmacy Electronically, [id number], [facility]/pharmacy #[id number] Start Date: 08/30/17 Status: Ordered Tums 500 mg oral tablet, chewable 500 mg, 1, tablet, Chew, Every 4 hours, PRN, # 180 tablet, Refills 0, Tot. Refills 0, Maintenance, Dyspepsia, 06/21/18 11:05:15 EDT, Route to Pharmacy Electronically, [id number], [facility] Start [...] WITH PRO LONGED DEPRESSIVE REACTION(Confirmed) 02/03/07 Active [facility] Emeral d Team Senior Level [...]
--- OUTSIDE RECORDS SUMMARY | 2022-08-31 00:59 | XMS_ITS | Continuity of Care Document ---
Author Name Unknown Organization [facility] Address [address] [place] [address]- Care Team Providers Care Pipeline Technician Name Role Phone Chaparrita Pizano DO Primary Care Physician [place] [facility] [place] 04/17[place]20 - 05/17/20 [facility] [address] [place], [place] [address] Allergies, Adverse Reactions, Alerts Substance Reaction [...] 1 02/02/07 Given 1Admin Note: manufactured by [employer] Medications albuterol 0.042% inhalation solution 3 [...] Refills, Maintenance, 04/03/20 13:23:00 EST, Solution, [facility]/pharmacy #[id number], Partial fill upon patient request if the [...] 0 Refills, Soft Stop, 04/09/20 13:16:00 EST, [facility], Partial fill upon [...] 0 Refills, Maintenance, 04/02/20 9:29:00 EST, Tablet, [facility], Partial fill upon patient request if the prescription is for a schedule II opioid drug., 154.94, cm, 0... Start Date: 04/02/20 Status: Ordered oxyCODONE 10 mg oral tablet 2 tablet = 20 mg, By Mouth, Every 6 hours, PRN Pain , Severe, take 1 tab for less severe pain, # 56tablet, 0 Refills, Maintenance, 05/09/20 16:38:00 EDT, Tablet, [facility]/pharmacy #[id number], Partial fill upon patient request if the [...] 08/30/17 8:21:42 EDT, Route to Pharmacy Electronically, [id number], [facility]/pharmacy #[id number] Start Date: 08/30/17 Status: Ordered Tums 500 mg oral tablet, chewable 500 mg, 1, tablet, Chew, Every 4 hours, PRN, # 180 tablet, Refills 0, Tot. Refills 0, Maintenance, Dyspepsia, 06/21/18 11:05:15 EDT, Route to Pharmacy Electronically, [id number], [facility] Start Date: 06/21/18 [...]
--- OUTSIDE RECORDS SUMMARY | 2022-08-31 00:59 | XMS_ITS | Continuity of Care Document ---
Author Name Unknown Organization [facility] Address [address] [place] [address] [address], [address] [place] [address]- Care Team Providers Care Bullet Assembly Press Operator Name Role Phone Chaparrita Pizano DO Primary Care Physician [place] [facility] [place]13[place]21 - 11/12/21 [facility] [address] [place] [address] Drive, [address] [place] [address]- Attending Physician: Jamie Gregorio Admitting Physician: AdmJamie hernandez Referring Physician: AdmtrJamie Allergies, Adverse Reactions, Alerts [...] to receive vaccine 2Admin Note: manufactured by [employer] Medications albuterol 0.042% inhalation solution 3 [...] MOUTH EVERY 6 HOURS NEEDED Start Date: 11/09/21 Status: Ordered HYDROmorphone Inj = 4 mg, IV Push Slowly, Every 6 hours, 0 Refills, Maintenance, 11/09/21 18:37:00 EDT, Injection, Partial fill upon patient request if the prescription is for a schedule II opioid drug. Start Date: 11/09/21 Status: Ordered Insulin Glargine = 35 units, [...] EDT, 08/31/20 13:21:00 EDT, Syrup, [facility]/pharmacy #[id number], Partial fill upon patient request if [...] 0 Refills, Maintenance, 04/02/20 9:29:00 EST, Tablet, [facility], Partial fill upon [...] Date: 09/08/21 Stop Date: 10/08/21 Status: Ordered Pantoprazole Packet = 40 mg, By Mouth, Daily, 0 Refills, Maintenance, 11/09/21 18:36:00 EDT Start Date: 11/09/21 Status: Ordered potassium chloride 8 mEq (600 [...] 06/21/18 11:05:15 EDT, Route to Pharmacy Electronically, [id number], [facility] Start Date: 06/21/18 Status: [...] WITH PROLONGED DEPRESSIVE REACTION Confirmed 02/03/07 Active [facility] [place] Team Senior Level Patient Confirmed Active [facility] [...] on: 01/30/16 Sex Patient Care team information Personnel Name: Chaparrita Pizano DO Address: Address: [address] [place] [address]
--- OUTSIDE RECORDS SUMMARY | 2022-08-31 00:59 | XMS_ITS | Continuity of Care Document ---
Author Name Unknown Organization [facility] ter Address [address] [place] [address]- Care Team Providers Care Assistant Spa Director Name Role Phone Jerica DOChaparrita Primary Care Physician Encounter [facility] [place] Date(s): 06/24/21 - 06/26/[address] [address] Discharge Disposition: A-D/C Home Attending Physician: Lolita Brown MD Admitting Physician: Alex Sargent MD Referring Physician: Not on Staff, Referring MD Allergies, Adverse Reactions, Alerts Substance Reaction Severity Status doxycycline mouth swelling Active ceftriaxone hives Active melatonin Active Pepcid vomitng Active penicillin throat swelling [...] Severe Active Nicotine Patch ana cardia Active Lantiseptic [...] to receive vaccine 2Admin Note: manufactured by [employer] Medications albuterol 0.042% inhalation solution [...] EC Tablet Start Date: 10/04/18 Status: Ordered cyclobenzaprine 5 mg oral tablet 1 tablet = 5 mg, By Mouth, Daily at bedtime, for 6 days, # 6 tablet, 0 Refills, Acute 07/02/21 8:08:00 EDT, 06/26/21 8:08:00 EDT, Tablet, [facility]/pharmacy #[id number], Partial fill upon patient request if the prescription is for a schedule II opioid drug., 155,... Start Date: 5/13/22 Stop Date: 07/02/21 Status: Ordered Imitrex 50 mg oral tablet 1 tablet = 50 mg, By Mouth, Daily, PRN for migraine headache, may repeat dose after 2 hours up to amaximum of 2, # 18 tablet, 0 Refills, Acute 08/31/21 13:21:00 EDT, 08/31/20 13:21:00 EDT, Tablet, [facility]/pharmacy #[id number], Partial fill upon patient request... Start [...] 13:22:00 EDT, 08/31/20 13:21:00 EDT, Syrup, [facility]/pharmacy #[id number], Partial fill upon [...] 0 Refills, Maintenance, 04/02/20 9:29:00 EST, Tablet, [facility], Partial [...] oral tablet 10 mg, Tablet, By Mouth, Once, Routine, 06/26/21 9:00:00 EDT, Stop date 06/26/21 9:00:00 EDT Start Date: 06/26/21 Stop Date: 06/26/21 Status: Completed potassium chloride 8 mEq (600 mg) oral [...] Refills, Soft Stop, 06/26/21 7:59:00 EDT, Tablet, [facility]/pharmacy #[id number], Partial fill upon patient request if the [...] 08/30/17 8:21:42 EDT, Route to Pharmacy Electronically, [id number], [facility]/pharmacy #[id number] Start Date: 08/30/17 Status: Ordered Tums 500 mg oral tablet, chewable 500 mg, 1, tablet, Chew, Every 4 hours, PRN, # 180 tablet, Refills 0, Tot. Refills 0, Maintenance, Dyspepsia, 06/21/18 11:05:15 EDT, Route to Pharmacy Electronically, [id number], [facility] Start Date: 06/21/18 Status: [...] PRO LONGED DEPRESSIVE REACTION(Confirmed) 02/03/07 Active [facility] Emeral d Team [...] Range]: 1 2 3 Height 155 cm (06/26/21 7:27 AM) 155 cm (06/26/21 4:27 AM) 155 cm (06/26/21 12:00 AM) Weight 131.1 kg (06/25/21 9:50 AM) Oxygen Saturation [94-100 %] 97 % (06/26/21 7:27 AM) 96 % (06/26/21 4:27 AM) 97 % (06/26/21 12:00 AM) Pulse Rate [55-90 bpm] 76 bpm (06/26/21 7:27 AM) 98 bpm *H* (06/26/21 4:27 AM) 95 bpm *H* (06/26/21 12:00 AM) Body Mass Index [18.5-24.99] 54.57 *>HHI* (06/25/21 9:50 AM) Blood Pressure [90-138/55-84 mm Hg] 151/82mm Hg *H* (06/26/21 7:27 AM) 148/93mm Hg *H* (06/26/21 4:27 AM) 156/95mm Hg *H* (06/26/21 12:00 AM) Respiratory Rate [16-30 br/min] 16 br/min (06/26/21 9:01 AM) 16 br/min (06/26/21 8:00 AM) 18 br/min (06/26/21 7:27 AM) Temperature [96.8-100.4 DegF] 97.6 DegF (06/26/21 7:27 AM) 98.5 DegF (06/26/21 4:27 AM) 98.3 DegF (06/26/21 12:00 AM) Mode of Delivery (Oxygen) Room air (06/26/21 7:27 AM) Room air (06/26/21 4:27 AM) Room air (06/26/21 12:00 AM) Blood pressure sites Arm, left (06/26/21 7:27 AM) Arm, left (06/26/21 4:27 AM) Arm, left (06/26/21 12:00 AM) Temperature Route Oral (06/26/21 7:27 AM) Oral (06/26/21 4:27 AM) Oral (06/26/21 12:00 AM) Dry Weight 131.1 kg (06/25/21 9:50 AM) Social History Social History Type Response Smoking Status Former smoker; Other : quit 04/2015; entered on: 01/30/16 Sex
--- OUTSIDE RECORDS SUMMARY | 2022-08-31 00:59 | XMS_ITS | Continuity of Care Document ---
Author Name Unknown Organization [facility] ter Address [address] [place] [address]- Care Team Providers Care Research Food Technologist Name Role Phone Chaparrita Pizano DO Primary Care Physician En[place] [facility] [place](s): 11/30/18 - 02/07/[address] [address]- [facility] Attending Physician: López Hall MD Admitting Physician: López Hall MD Referring Physician: López Hall MD Allergies, Adverse Reactions, Alerts Substance Reaction [...] 1 02/02/07 Given 1Admin Note: manufactured by [employer] Medications albuterol CFC free 90 mcg/inh [...] 11:42:54 EDT, Aerosol, Route to Pharmacy Electronically, [id number], [facility]/pharmacy #[id number], Compound Start Date: 06/10/17 Status: Ordered Aygestin 5 mg oral tablet 3 tablet = 15 mg, By Mouth, Daily, # 84 tablet, 5 Refills, Maintenance, 07/01/18 7:41:56 EDT, Tablet Start Date: 07/01/18 Stop Date: 12/16/18 Status: Ordered bisacodyl 5 mg oral delayed [...] 05/05/18 9:38:51 EDT, Route to Pharmacy Electronically, [id number]... Start Date: 05/05/18 Status: Ordered Lantus 100 u/ml subcutaneous solution = 50 units, Subcutaneous Infusion, Daily at bedtime, 0 Refills, Maintenance, 10/04/18 9:32:23 EDT Start Date: 10/04/18 Status: Ordered losartan [...] 08/30/17 8:21:42 EDT, Route to Pharmacy Electronically, [id number], [facility]/pharmacy #[id number] Start Date: 08/30/17 Status: Ordered Tums 500 mg oral tablet, chewable 500 mg, 1, tablet, Chew, Every 4 hours, PRN, # 180 tablet, Refills 0, Tot. Refills 0, Maintenance, Dyspepsia, 06/21/18 11:05:15 EDT, Route to Pharmacy Electronically, [id number], [facility] Start Date: 06/21/18 Status: [...] WITH PRO LONGED DEPRESSIVE REACTION(Confirmed) 02/03/07 Active [facility] Emeral d Team Senior Level Patient(Confirmed) Active [...] right(Confirmed) Active Partial small bowel obstruction(Confirmed) Active Spinal stenosis(Confirmed) Active DM (diabetes mellitus), type 2, uncontrolled(Confirmed) Active Social History Social History Type Response Smoking Status Former smoker; Other : quit 04/2015; entered on: 01/30/16 Sex Female
--- OUTSIDE RECORDS SUMMARY | 2022-08-31 00:59 | XMS_ITS | Continuity of Care Document ---
Author Name Unknown Organization [facility] ter Address [address] [place] [address]- Care Team Providers Care Senior Office Assistant Name Role Phone Darryl Pizano DOdavidradha Gupta Primary Care Physician ( [phone] [place] [facility] [place](s): 12/28/21 - 04/16/[address] [address]- Attending Physician: Donald Murphy MD Admitting Physician: [...] w/ benadryl hives Active Pepcid vomitng Active Tylenol hives Active Seafood Anaphylactic shock d ue [...] to receive vaccine 2Admin Note: manufactured by [employer] Medications albuterol 0.042% inhalation solution 3 [...] 03/12/22 12:08:00 EST, Route to Pharmacy Electronically, [facility], Partial fill upon patient [...] 03/09/23 23:00:00 EST, 03/12/22 12:09:00 EST, Syrup, [facility], Partial fill upon patient [...] 03/09/23 23:00:00 EST, 03/12/22 12:10:00 EST, Patch, [facility], Partial fill upon patient [...] tablet, 0 Refills, Maintenance, 04/02/20 9:29:00 EST, [facility], Partial fill upon patient request if [...] 03/12/22 12:06:00 EST, Route to Pharmacy Electronically, [facility], Partial fill uponpatient request if the [...] 06/21/18 11:05:15 EDT, Route to Pharmacy Electronically, [id number], [facility] Start Date: 06/21/18 Status: Ordered Vitamin [...] WITH PROLONGED DEPRESSIVE REACTION Confirmed 02/03/07 Active [facility] [place] Team Senior Level Patient Confirmed Active ASTHMA [...] Team Personnel Name: Lola Belcher RN Position: [facility] RN Member Role: Primary Care Nurse Name: Jose Enrique Saul RN Position: [facility] RN Member Role: Primary Care Nurse Name: Symone Mckinnon RN Position: [facility] RN Member Role: Primary Care Nurse Name: aCrolyn Pelaez RN Position: [facility] RN Member Role: Primary Care Nurse Name: Fanny Mixon RN Position: [facility] ED RN W/OE and Tasks Member Role: Primary Care Nurse Name: María Ashford RN Position: [facility] AMB Nurse Member Role: Primary Care Nurse Name: Chanelle Hernandez RN Position: [facility] AMB Nurse Member Role: Primary Care Nurse Name: Estelle García RN Position: [facility] RN Member Role: Primary Care Nurse Name: Deanne Rangel RN Position: [facility] RN Member Role: Primary Care Nurse Name: Carine Jimenez RN Position: [facility] SN RN Member Role: Primary Care Nurse Name: Jenelle Campo RN Position: [facility] RN Member Role: Primary Care Nurse Name: Keyla Godwin RN Position: [facility] RN Member Role: Primary Care Nurse Name: Yeimi Devine RN Position: [facility] RN Member Role: Primary Care Nurse Name: Mary Yan RN Position: [facility] RN Member Role: Primary Care Nurse Name: Iliana Pop RN Position: [facility] RN Member Role: Primary Care Nurse Name: Alcides Dueñas RN Position: [facility] RN Member Role: Primary Care Nurse Name: Lisa Beatty Position: [facility] Outreach Member Role: Lifetime Consulting Physician Name: Armida Beatty RN Position: [facility] RN Member Role: Primary Care Nurse Name: Deonna Beatty RN Position: [facility] RN Member Role: Primary Care Nurse Name: Roque Villasenor MD Position: [facility] Renal MD Member Role: Lifetime Consulting Physician Address: Address: [address] [place] [address], [address] [facility] [place] [address]- Name: Lashon Lovell RN Position: [facility] SN RN Member Role: Primary Care Nurse Name: Kristi Giraldo RN Position: [facility] RN Supv Member Role: Primary Care Nurse Name: Jerrod Casarez RN Position: [facility] RN Member Role: Primary Care Nurse Name: Shane Riley RN Position: [facility] RN Member Role: Primary Care Nurse Name: Isac Plascencia RN Position: [facility] RN Member Role: Primary Care Nurse Name: Rosalva Martin RN Position: [facility] RN Member Role: Primary Care Nurse Name: Sheela Matt RN Position: [facility] RN Member Role: Primary Care Nurse Name: Armida Ochoa RN Position: [facility] RN Member Role: Primary Care Nurse Name: Felipa Diehl RN Position: [facility] HBO Wound Member Role: Primary Care Nurse Name: Evelin Powell RN Position: [facility] AMB Nurse Member Role: Primary Care Nurse Name: Deonna Pendleton RN Position: [facility] RN Member Role: Primary Care Nurse Name: Pili Kaba RN Position: [facility] RN Member Role: Primary Care Nurse Name: Alejandro Yanes RN Position: [facility] RN Member Role: Primary Care Nurse Name: Stacey Díaz RN Position: [facility] SN RN Member Role: Primary Care Nurse Name: Jac Reese RN Position: [facility] RN Member Role: Primary Care Nurse Name: Celestine Schwartz RN Position: [facility] RN Member Role: Primary Care Nurse Name: Neeta Carpenter RN Position: [facility] RN Member Role: Primary Care Nurse Name: Susie Estrada RN Position: [facility] RN Member Role: Primary Care Nurse Name: Inna Cantor RN Position: [facility] RN Member Role: Primary Care Nurse Name: Chaparrita Pizano DO Position: [facility] Physician (General Medicine) Member Role: PCP Address: Address: [address] [place] [address] [place] [address]- [place] Name: Ning Rolon RN Position: [facility] RN Member Role: Primary Care Nurse Name: Rubi Carrasco RN Position: [facility] SN RN Member Role: Primary Care Nurse Name: Lauryn Holden RN Position: [facility] RN Member Role: Primary Care Nurse Name: Jones Cervantes RN Position: [facility] RN Member Role: Primary Care Nurse Name: Olivia Caputo RN Position: [facility] RN Member Role: Primary Care Nurse Name: Brooklyn Jim RN Position: [facility] RN Member Role: Primary Care Nurse Name: Kimberly Santoro RN Position: [facility] RN Member Role: Primary Care Nurse Name: Haley Diamond RN Position: [facility] RN Member Role: Primary Care Nurse Name: Ashley Meléndez NP Position: [facility] PCO Associate Professional Member Role: Primary Care Nurse Address: Address: [address] [place] [address]- Name: Siomara Patricia RN Position: [facility] PCO RN Member Role: Primary Care Nurse Name: Neeta Painter RN Position: [facility] RN Member Role: Primary Care Nurse Name: Bailey Espinal RN Position: [facility] AMB Nurse Member Role: Primary Care Nurse Name: Brooklyn Ramsey RN Position: [facility] RN Member Role: Primary Care Nurse Name: Keyla Bright RN Position: [facility] RN Member Role: Primary Care Nurse Name: Beverley Tatum RN Position: [facility] RN Member Role: Primary Care Nurse Name: Mainor Devries RN Position: [facility] RN Member Role: Primary Care Nurse Name: Yarely Richards RN Position: [facility] Hydraulic Assembler Member Role: Primary Care Nurse Name: Oralia Massey RN Position: [facility] RN Member Role: Primary Care Nurse Name: Cassie Villanueva RN Position: [facility] RN Member Role: Primary Care Nurse Name: Taiwo Mcgregor RN Position: [facility] RN Member Role: Primary Care Nurse Name: Cally Funes RN Position: [facility] RN Member Role: Primary Care Nurse Name: Marina Osorio Position: [facility] RN Member Role: Primary Care Nurse Name: Lisa Blanton RN Position: [facility] Hydraulic Assembler Member Role: Primary Care Nurse Name: Danica Stuart RN Position: [facility] AMB Nurse Member Role: Primary Care Nurse Name: Virginia Bacon RN Position: [facility] RN Member Role: Primary Care Nurse Name: Shruthi Ray RN Position: [facility] Onco RN Member Role: Primary Care Nurse Name: Abbe Choe RN Position: [facility] RN Supv Member Role: Primary Care Nurse Name: Farideh Cat LPN Position: [facility] RN Member Role: Primary Care Nurse Name: Janis Morris RN Position: [facility] Hydraulic Assembler Member Role: Primary Care Nurse Name: Darrian Chang RN Position: [facility] Hydraulic Assembler Member Role: Primary Care Nurse Name: Josef Woods RN Position: [facility] RN Member Role: Primary Care Nurse Name: Siomara Raphael Position: [facility] RN Member Role: Primary Care Nurse Name: Jerry Mcneill RN Position: [facility] RN Member Role: Primary Care Nurse Care Team Related Persons Name: IVAN VILLASENOR Address: [place] [address] Name: REYNALDO KAUR Address: home [address] [place] [address] Name: EMMA SERRANO Address: home [address] [address] Name: PATRICK MATA Address: home [address] [place] [address] Name: FARIDEH POPE Address: [place] [address]
--- OUTSIDE RECORDS SUMMARY | 2022-08-31 00:59 | XMS_ITS | Continuity of Care Document ---
Author Name Unknown Organization [facility] Address [address] [place] [address]- Care Team Providers Care Sintering Press Operator Name Role Phone Chaparrita Pizano DO Primary Care Physician Encounter [facility] [place] Date(s): 05/19/20 - 08/08/20 [facility] [address] [place] [address] Attending Physician: Rosenda Hankins MD Admitting Physician: Rosenda Hankins MD Referring Physician: Chaparrita Pizano DO Allergies, [...] to receive vaccine 2Admin Note: manufactured by [employer] Medications albuterol 0.042% inhalation solution 3 [...] 0 Refills, Soft Stop, 04/09/20 13:16:00 EST, [facility], Partial fill upon patient [...] 08/14/20 14:34:00 EDT, 07/31/20 14:34:00 EDT, Tablet, [facility], Partialfill upon patient request if the prescription is for a... Start Date: 07/31/20 Stop Date: 08/14/20 Status: Ordered ondansetron 4 mg oral tablet, disintegrating = 4 mg, By Mouth, Every 6 hours, PRN Nausea & Vomiting, # 90 tablet, 0 Refills, Maintenance, 04/02/20 9:29:00 EST, Tablet, [facility], Partial fill upon patient request if the prescription is for a schedule II opioid drug., 154.94, cm, 0... Start Date: 04/02/20 Status: Ordered oxyCODONE 10 mg oral tablet See Instructions, 1 tablet By Mouth 5 times per day for 7 days, per pain services recommedations, #35 tablet, 0 Refills, Maintenance, 06/20/20 8:49:00 EDT, Tablet, [facility]/pharmacy #[id number], Partial fill upon patient request [...] 08/30/17 8:21:42 EDT, Route to Pharmacy Electronically, [id number], [facility]acy #[id number] Start Date: 08/30/17 Status: Ordered Tums 500 mg oral tablet, chewable 500 mg, 1, tablet, Chew, Every 4 hours, PRN, # 180 tablet, Refills 0, Tot. Refills 0, Maintenance, Dyspepsia, 06/21/18 11:05:15 EDT, Route to Pharmacy Electronically, [id number], [facility] Start Date: 06/21/18 Status: [...] WITH PRO LONGED DEPRESSIVE REACTION(Confirmed) 02/03/07 Active [facility] Emeral d Team Senior Level [...]
--- OUTSIDE RECORDS SUMMARY | 2022-08-31 00:59 | XMS_ITS | Continuity of Care Document ---
Author Name Unknown Organization [facility] Address [address] [place] [address]- Care Team Providers Care Emery Wheel Worker Name Role Phone Jerica DOChaparrita Primary Care Physician Encounter [facility] Date(s): 10/18/21 - 10/18/[address] [address]- Encounter Diagnosis Headache(Final) - 10/18/21 Discharge Disposition: A-D/C Home Attending Physician: Jimbo Olea MD Admitting Physician: Jimbo Olea MD Referring Physician: Not on Staff, Referring [...] to receive vaccine 2Admin Note: manufactured by [employer] Medications albuterol 0.042% inhalation solution 3 [...] 09/08/21 13:21:00 EDT, Route to Pharmacy Electronically, [facility], Partial fill upon patient request if [...] 08/31/22 13:22:00 EDT, 08/31/20 13:21:00 EDT, Syrup, [facility]/pharmacy #[id number], Partial fill upon patient request if [...] 0 Refills, Maintenance, 04/02/20 9:29:00 EST, Tablet, [facility], Partial fill upon patient request if [...] 06/21/18 11:05:15 EDT, Route to Pharmacy Electronically, [id number], [facility] Start Date: 06/21/18 Status: Ordered Valium 5 mg oral tablet 5 mg, 1, tablet, By Mouth, 2 times a day, PRN, for 3 days, # 6 tablet, Refills 0, Tot. Refills 0, Acute 10/21/21 22:25:00 EDT, Pain , Severe, 10/18/21 22:25:00 EDT, Route to Pharmacy Electronically, [facility]/pharmacy #[id number], Partial fill upon patient reques... Start Date: 10/18/21 Stop Date: 10/21/21 Status: Ordered Vitamin D3 2000 intl units oral capsule 1 capsule = 2,000 International_Units, By Mouth, 3 times a day, 0 Refills, Maintenance, 02/22/18 7:05:50 EST Start Date: 02/22/18 Status: Ordered Problem List Condition Effective Dates Status Health Status Inform ant Abdominal pain(Confirmed) Active Trigger point of abdomen(Confirmed) Active Abscess(Confirmed) Active ADJUSTMENT REACTION WITH PRO LONGED DEPRESSIVE REACTION(Confirmed) 02/03/07 Active [facility] Emeral d Team Senior Level [...] Range]: 1 2 3 Height 155 cm (10/18/21 7:41 PM) 155 cm (10/18/21 7:41 PM) 155 cm (10/18/21 4:29 PM) Weight 126 kg (10/18/21 7:41 PM) 126 kg (10/18/21 7:41 PM) 126 kg (10/18/21 4:29 PM) Oxygen Saturation [94-100 %] 100 % (10/18/21 9:42 PM) 99 % (10/18/21 7:41 PM) 97 % (10/18/21 4:26 PM) Pulse Rate [55-90 bpm] 96 bpm *H* (10/18/21 9:42 PM) 84 bpm (10/18/21 7:41 PM) 98 bpm *H* (10/18/21 4:26 PM) Body Mass Index [18.5-24.99] 52.45 *>HHI* (10/18/21 7:41 PM) 52.45 *>HHI* (10/18/21 7:41 PM) 52.45 *>HHI* (10/18/21 4:26 PM) Blood Pressure [90-138/55-84 mm Hg] 147/89mm Hg *H* (10/18/21 9:42 PM) 141/88mm Hg *H* (10/18/21 7:41 PM) 142/102mm Hg *H* (10/18/21 4:26 PM) Respiratory Rate [16-30 br/min] 20 br/min (10/18/21 9:42 PM) 19 br/min (10/18/21 7:41 PM) 18 br/min (10/18/21 4:26 PM) Temperature [96.8-100.4 DegF] 98.7 DegF (10/18/21 9:42 PM) 96.7 DegF *L* (10/18/21 7:41 PM) 96.6 DegF *L* (10/18/21 4:26 PM) Liters per Minute 0 L/min (10/18/21 7:41 PM) Mode of Delivery (Oxygen) Room air (10/18/21 9:42 PM) Room air (10/18/21 7:41 PM) Room air (10/18/21 4:26 PM) Blood pressure sites Arm, left (10/18/21 9:42 PM) Arm, left (10/18/21 7:41 PM) Arm, left (10/18/21 4:26 PM) Temperature Route Oral (10/18/21 9:42 PM) Oral (10/18/21 7:41 PM) Temporal (10/18/21 4:26 PM) Dry Weight 126 kg (10/18/21 7:41 PM) 126 kg (10/18/21 7:41 PM) 126 kg (10/18/21 4:29 PM) Dry Weight Obtained Via Standing scale (10/18/21 4:26 PM) Social History Social History Type Response Smoking Status Former smoker; Other : quit 04/2015; entered on: 01/30/16 Sex Care Team Personnel Name: Chaparrita Pizano DO Address: [address] [place] [address] [place], [place] [address]
--- OUTSIDE RECORDS SUMMARY | 2022-08-31 01:00 | XMS_ITS | Continuity of Care Document ---
Author Name Unknown Organization [facility] ter Address [address] [place] [address]- Care Team Providers Care Wire Basket Maker Name Role Phone Chaparrita Pizano DO Primary Care Physician Encounter [facility] Date(s): 08/20/21 - 01/22/[address] [address]- Attending Physician: Donald Murphy MD Admitting Physician: [...] to receive vaccine 2Admin Note: manufactured by [employer] Medications albuterol 0.042% inhalation solution 3 [...] 09/08/21 13:21:00 EDT, Route to Pharmacy Electronically, [facility] 3, Partial fill upon [...] 0 Refills, Maintenance, 04/02/20 9:29:00 EST, Tablet, [facility] 3, Partial fill upon [...] 06/21/18 11:05:15 EDT, Route to Pharmacy Electronically, [id number], [facility] 3 [...] WITH PROLONGED DEPRESSIVE REACTION Confirmed 02/03/07 Active [place] [facility] [place] Team Senior Level Patient Confirmed Active ASTHMA [...] Team Personnel Name: Lola Belcher RN Position: [facility] RN Member Role: Primary Care Nurse Name: Jose Enrique Saul RN Position: [facility] RN Member Role: Primary Care Nurse Name: Symone Mckinnon RN Position: [facility] RN Member Role: Primary Care Nurse Name: Carolyn Pelaez RN Position: [facility] RN Member Role: Primary Care Nurse Name: Deanna Garcia RN Position: [facility] RN Member Role: Primary Care Nurse Name: Fanny Mixon RN Position: [facility] ED RN W/OE and Tasks Member Role: Primary Care Nurse Name: María Ashford RN Position: [facility] AMB Nurse Member Role: Primary Care Nurse Name: Chanelle Hernandez RN Position: [facility] PCO RN Member Role: Primary Care Nurse Name: Estelle García RN Position: [facility] RN Member Role: Primary Care Nurse Name: Deanne Rangel RN Position: [facility] RN Member Role: Primary Care Nurse Name: Carine Jimenez RN Position: [facility] SN RN Member Role: Primary Care Nurse Name: Jenelle Campo RN Position: [facility] RN Member Role: Primary Care Nurse Name: Keyla Godwin RN Position: [facility] RN Member Role: Primary Care Nurse Name: Yeimi Devine RN Position: [facility] RN Member Role: Primary Care Nurse Name: Mary Yan RN Position: [facility] RN Member Role: Primary Care Nurse Name: Iliana Pop RN Position: [facility] RN Member Role: Primary Care Nurse Name: Alcides Dueñas RN Position: [facility] RN Member Role: Primary Care Nurse Name: Lisa Beatty Position: [facility] Outreach Member Role: Lifetime Consulting Physician Name: Armida Beatty RN Position: [facility] RN Member Role: Primary Care Nurse Name: Roque Villasenor MD Position: [facility] Renal MD Member Role: Lifetime Consulting Physician Address: Address: [address] [place] [address], [address] [facility] [address] Name: Lashon Lovell RN Position: [facility] SN RN Member Role: Primary Care Nurse Name: Kristi Giraldo RN Position: [facility] RN Supv Member Role: Primary Care Nurse Name: Jerrod Casarez RN Position: [facility] RN Member Role: Primary Care Nurse Name: Rosalva Martin RN Position: [facility] RN Member Role: Primary Care Nurse Name: Armida Ochoa RN Position: [facility] RN Member Role: Primary Care Nurse Name: Deonna Murillo RN Position: [facility] RN Member Role: Primary Care Nurse Name: Felipa Diehl RN Position: [facility] HBO Wound Member Role: Primary Care Nurse Name: Evelin Powell RN Position: [facility] AMB Nurse Member Role: Primary Care Nurse Name: Deonna Pendleton RN Position: [facility] RN Member Role: Primary Care Nurse Name: Pili Kaba RN Position: [facility] GAGANDEEP RN W/OE and Tasks Member Role: Primary Care Nurse Name: Alejandro Yanes RN Position: [facility] RN Member Role: Primary Care Nurse Name: Stacey Díaz RN Position: [facility] SN RN Member Role: Primary Care Nurse Name: Jac Reese RN Position: [facility] RN Member Role: Primary Care Nurse Name: Celestine Schwartz RN Position: [facility] RN Member Role: Primary Care Nurse Name: Neeta Carpenter RN Position: [facility] RN Member Role: Primary Care Nurse Name: Susie Estrada RN Position: [facility] RN Member Role: Primary Care Nurse Name: Inna Cantor RN Position: [facility] RN Member Role: Primary Care Nurse Name: Chaparrita Pizano DO Position: [facility] Physician (General Medicine) Member Role: PCP Address: Address: [address] [place] [address]- Name: Ning Rolon RN Position: [facility] RN Member Role: Primary Care Nurse Name: Rubi Carrasco RN Position: [facility] SN RN Member Role: Primary Care Nurse Name: Lauryn Holden RN Position: [facility] RN Member Role: Primary Care Nurse Name: Shen Silvestre RN Position: [facility] RN Member Role: Primary Care Nurse Name: Jones Cervantes RN Position: [facility] RN Member Role: Primary Care Nurse Name: Olivia Caputo RN Position: [facility] RN Member Role: Primary Care Nurse Name: Brooklyn Jim RN Position: [facility] RN Member Role: Primary Care Nurse Name: Kimberly Santoro RN Position: [facility] RN Member Role: Primary Care Nurse Name: Haley Diamond RN Position: [facility] RN Member Role: Primary Care Nurse Name: Ashley Meléndez NP Position: [facility] PCO Associate Professional Member Role: Primary Care Nurse Address: Address: [address] [place] [address] 3rd [place] [address]- Name: Siomara Patricia RN [facility]: [facility] RN Member Role: Primary Care Nurse Name: Neeta Painter RN Position: [facility] RN Member Role: Primary Care Nurse Name: Edith Drummond RN Position: [facility] RN Member Role: Primary Care Nurse Name: Bailey Espinal RN Position: [facility] AMB Nurse Member Role: Primary Care Nurse Name: Brooklyn Ramsey RN Position: [facility] RN Member Role: Primary Care Nurse Name: Keyla Bright RN Position: [facility] RN Member Role: Primary Care Nurse Name: Beverley Tatum RN Position: [facility] RN Member Role: Primary Care Nurse Name: Mainor Devries RN Position: [facility] RN Member Role: Primary Care Nurse Name: Yarely Richards RN Position: [facility] Employee Benefits Specialist Member Role: Primary Care Nurse Name: Oralia Massey RN Position: [facility] RN Member Role: Primary Care Nurse Name: Cassie Villanueva RN Position: [facility] RN Member Role: Primary Care Nurse Name: Taiwo Mcgregor RN Position: [facility] RN Member Role: Primary Care Nurse Name: Cally Funes RN Position: [facility] SN RN Member Role: Primary Care Nurse Name: Marina Osorio Position: [facility] RN Member Role: Primary Care Nurse Name: Lisa Blanton RN Position: [facility] Employee Benefits Specialist Member Role: Primary Care Nurse Name: Danica Stuart RN Position: [facility] AMB Nurse Member Role: Primary Care Nurse Name: Shruthi Ray RN Position: [facility] RN Member Role: Primary Care Nurse Name: Abbe Choe RN Position: [facility] RN Supv Member Role: Primary Care Nurse Name: Farideh Cat LPN Position: [facility] RN Member Role: Primary Care Nurse Name: Janis Morris RN Position: [facility] Employee Benefits Specialist Member Role: Primary Care Nurse Name: Darrian Chang RN Position: [facility] Employee Benefits Specialist Member Role: Primary Care Nurse Name: Jerry Mcneill RN Position: [facility] RN Member Role: Primary Care Nurse Care Team Related Persons Name: IVAN VILLASENOR Address: [place] [address] Name: REYNALDO KAUR Address: [address] [place] [address] Name: EMMA SERRANO Address: home [address] [address] Name: PATRICK MATA Address: home [address] [place] [address] Name: FARIDEH POPE Address: [place] [address]
--- OUTSIDE RECORDS SUMMARY | 2022-08-31 01:00 | XMS_ITS | Continuity of Care Document ---
Author Name Unknown Organization [facility] ter Address [address] [place] [address]- Care Team Providers Care Marketing Project Manager Name Role Phone Jerica DO Darryldavidradha Gupta Primary Care Physician ( [phone] Encounter [facility] Date(s): 08/20/21 - 02/22/[address] [address]- Attending Physician: Donald Murphy MD Admitting Physician: Donald Murphy MD Referring Physician: Donald Murphy MD Allergies, Adverse Reactions, Alerts Substance Reaction Severity Status doxycycline mouth swelling Active ceftriaxone hives Active morphine 1, 2, 3 hives Active melatonin Active penicillin throat swelling Rash Persistent Severe Active famotidine vomiting Active iodine topical swelling itching Active Zofran 4 can only be given w/ benadryl hives Active Pepcid vomitng Active Adhesive Bandage skin excoriation hives Active [...] to receive vaccine 2Admin Note: manufactured by [facility] P[employer]ur Medications albuterol 0.042% inhalation solution 3 [...] 09/08/21 13:21:00 EDT, Route to Pharmacy Electronically, [facility], Partial fill upon patient [...] 0 Refills, Maintenance, 04/02/20 9:29:00 EST, Tablet, [facility] 3, Partial fill upon patient [...] 06/21/18 11:05:15 EDT, Route to Pharmacy Electronically, [id number], [facility] 3 Start Date: 06/21/18 Status: [...] WITH PROLONGED DEPRESSIVE REACTION Confirmed 02/03/07 Active [place] [facility] [place] Team Senior Level Patient Confirmed Active ASTHMA [...] Team Personnel Name: Lola Belcher RN Position: [facility] RN Member Role: Primary Care Nurse Name: Jose Enrique Saul RN Position: [facility] RN Member Role: Primary Care Nurse Name: Symone Mckinnon RN Position: [facility] RN Member Role: Primary Care Nurse Name: Carolyn Pelaez RN Position: [facility] RN Member Role: Primary Care Nurse Name: Deanna Garcia RN Position: [facility] RN Member Role: Primary Care Nurse Name: Fanny Mixon RN Position: [facility] ED RN W/OE and Tasks Member Role: Primary Care Nurse Name: María Ashford RN Position: [facility] AMB Nurse Member Role: Primary Care Nurse Name: Chanelle Hernandez RN Position: [facility] PCO RN Member Role: Primary Care Nurse Name: Estelle García RN Position: [facility] RN Member Role: Primary Care Nurse Name: Deanne Rangel RN Position: [facility] RN Member Role: Primary Care Nurse Name: Carine Jimenez RN Position: [facility] SN RN Member Role: Primary Care Nurse Name: Jenelle Campo RN Position: [facility] RN Member Role: Primary Care Nurse Name: Keyla Godwin RN Position: [facility] RN Member Role: Primary Care Nurse Name: Yeimi Devine RN Position: [facility] RN Member Role: Primary Care Nurse Name: Mary Yan RN Position: [facility] RN Member Role: Primary Care Nurse Name: Iliana Pop RN Position: [facility] RN Member Role: Primary Care Nurse Name: Alcides Dueñas RN Position: [facility] RN Member Role: Primary Care Nurse Name: Lisa Beatty Position: [facility] Outreach Member Role: Lifetime Consulting Physician Name: Armida Beatty RN Position: [facility] RN Member Role: Primary Care Nurse Name: Roque Villasenor MD Position: [facility] Renal MD Member Role: Lifetime Consulting Physician Address: Address: [address] [place] [address], [address] [facility] [place], [place] [address] Name: Lashon Lovell RN Position: [facility] SN RN Member Role: Primary Care Nurse Name: Krsiti Giraldo RN Position: [facility] RN Supv Member Role: Primary Care Nurse Name: Jerrod Casarez RN Position: [facility] RN Member Role: Primary Care Nurse Name: Rosalva Martin RN Position: [facility] RN Member Role: Primary Care Nurse Name: Armida Ochoa RN Position: [facility] RN Member Role: Primary Care Nurse Name: Deonna Murillo RN Position: [facility] RN Member Role: Primary Care Nurse Name: Felipa Diehl RN Position: [facility] HBO Wound Member Role: Primary Care Nurse Name: Evelin Powell RN Position: [facility] AMB Nurse Member Role: Primary Care Nurse Name: Deonna Pendleton RN Position: [facility] RN Member Role: Primary Care Nurse Name: Pili Kaba RN Position: [facility] RN Member Role: Primary Care Nurse Name: Alejandro Yanes RN Position: [facility] RN Member Role: Primary Care Nurse Name: Stacey Díaz RN Position: [facility] SN RN Member Role: Primary Care Nurse Name: Jac Reese RN Position: [facility] RN Member Role: Primary Care Nurse Name: Celestine Schwartz RN Position: [facility] RN Member Role: Primary Care Nurse Name: Neeta Carpenter RN Position: [facility] RN Member Role: Primary Care Nurse Name: Susie Estrada RN Position: [facility] RN Member Role: Primary Care Nurse Name: Inna Cantor RN Position: [facility] RN Member Role: Primary Care Nurse Name: Chaparrita Pizano DO Position: [facility] Physician (General Medicine) Member Role: PCP Address: Address: [address] [place] [address]- Name: Ning Rolon RN Position: [facility] RN Member Role: Primary Care Nurse Name: Rubi Carrasco RN Position: [facility] SN RN Member Role: Primary Care Nurse Name: Lauryn Holden RN Position: [facility] RN Member Role: Primary Care Nurse Name: Shen Silvestre RN Position: [facility] RN Member Role: Primary Care Nurse Name: Jones Cervantes RN Position: [facility] RN Member Role: Primary Care Nurse Name: Olivia Caputo RN Position: [facility] RN Member Role: Primary Care Nurse Name: Brooklyn Jim RN Position: [facility] RN Member Role: Primary Care Nurse Name: Kimberly Santoro RN Position: [facility] RN Member Role: Primary Care Nurse Name: Haley Diamond RN Position: [facility] RN Member Role: Primary Care Nurse Name: Ashley Meléndez NP Position: [facility] PCO Associate Professional Member Role: Primary Care Nurse Address: Address: [address] [place] [address]- Name: Siomara Patricia RN Position: [facility] PCO RN Member Role: Primary Care Nurse Name: Neeta Painter RN Position: [facility] RN Member Role: Primary Care Nurse Name: Edith Drummond RN Position: [facility] RN Member Role: Primary Care Nurse Name: Bailey Espinal RN Position: [facility] QUAN Nurse Member Role: Primary Care Nurse Name: Brooklyn Ramsey RN Position: [facility] RN Member Role: Primary Care Nurse Name: Keyla Bright RN Position: [facility] RN Member Role: Primary Care Nurse Name: Beverley Tatum RN Position: [facility] RN Member Role: Primary Care Nurse Name: Mainor Devries RN Position: [facility] RN Member Role: Primary Care Nurse Name: Yarely Richards RN Position: [facility] Pattern Grader Cutter Member Role: Primary Care Nurse Name: Oralia Massey RN Position: [facility] RN Member Role: Primary Care Nurse Name: Rich WILSON pee Position: [facility] RN Member Role: Primary Care Nurse Name: aTiwo Mcgregor RN Position: [facility] RN Member Role: Primary Care Nurse Name: Cally Funes RN Position: [facility] SN RN Member Role: Primary Care Nurse Name: Marina Osorio Position: [facility] RN Member Role: Primary Care Nurse Name: Lisa Blanton RN Position: [facility] Pattern Grader Cutter Member Role: Primary Care Nurse Name: Danica Stuart RN Position: [facility] AMB Nurse Member Role: Primary Care Nurse Name: Shruthi Ray RN Position: [facility] RN Member Role: Primary Care Nurse Name: Abbe Choe RN Position: [facility] RN Supv Member Role: Primary Care Nurse Name: Farideh Cat LPN Position: [facility] RN Member Role: Primary Care Nurse Name: Janis Morris RN Position: [facility] Pattern Grader Cutter Member Role: Primary Care Nurse Name: Darrian Chang RN Position: [facility] Pattern Grader Cutter Member Role: Primary Care Nurse Name: Jerry Mcneill RN Position: [facility] RN Member Role: Primary Care Nurse Care Team Related Persons Name: IVAN VILLASENOR Address: [place] [address] Name: REYNALDO KAUR Address: home [address] [place] [address] Name: EMMA SERRANO Address: home [address] [address] Name: PATRICK MATA Address: [address] [place] [address] Name: FARIDEH POPE Address: [place] [address]
--- OUTSIDE RECORDS SUMMARY | 2022-08-31 01:00 | XMS_ITS | Continuity of Care Document ---
Author Name Unknown Organization [facility] Address Unknown Care Team Providers Care Internet Marketing Director Name Role Phone Chaparrita Pizano DO Primary Care Physician ( [phone] Encounter [facility] Date(s): 07/01/21 - 07/31/21 [facility] Allergies, Adverse Reactions, Alerts Substance Reaction Severity [...] Lantiseptic Skin Protectant Active Lyrica Angioedema Active 1per MD, tolerates [...] to receive vaccine 2Admin Note: manufactured by [employer] Medications albuterol 0.042% inhalation solution 3 [...] 08/31/21 13:21:00 EDT, 08/31/20 13:21:00 EDT, Tablet, [id number], Partial fill upon patient request... Start Date: [...] 08/31/22 13:22:00 EDT, 08/31/20 13:21:00 EDT, Syrup, [facility][id number], Partial fill upon patient request [...] 0 Refills, Maintenance, 04/02/20 9:29:00 EST, Tablet, [facility], Partial fill upon patient request if [...] Refills, Soft Stop, 06/26/21 7:59:00 EDT, Tablet, [facility]/pharmacy #[id number], Partial fill upon patient request [...] 08/30/17 8:21:42 EDT, Route to Pharmacy Electronically, [id number], [facility]/pharmacy #[id number] Start Date: 08/30/17 Status: Ordered Tums 500 mg oral tablet, chewable 500 mg, 1, tablet, Chew, Every 4 hours, PRN, # 180 tablet, Refills 0, Tot. Refills 0, Maintenance, Dyspepsia, 06/21/18 11:05:15 EDT, Route to Pharmacy Electronically, [id number], [facility] Start Date: 06/21/18 Status: [...] WITH PRO LONGED DEPRESSIVE REACTION(Confirmed) 02/03/07 Active [facility] Team Senior Level [...]
--- OUTSIDE RECORDS SUMMARY | 2022-08-31 01:00 | XMS_ITS | Continuity of Care Document ---
Author Name Unknown Organization [facility] ter Address [address] [place] [address]- Care Team Providers Care Accounts Receivable Manager Name Role Phone Darryl Pizano DOdavidradha Gupta Primary Care Physician Encounter [facility] [place] Date(s): 11/13/21 - 02/15/[address] [address]- Attending Physician: Donald Murphy MD Admitting Physician: [...] to receive vaccine 2Admin Note: manufactured by [employer] Medications albuterol 0.042% inhalation solution 3 [...] 09/08/21 13:21:00 EDT, Route to Pharmacy Electronically, [facility], Partial fill upon patient [...] 0 Refills, Maintenance, 04/02/20 9:29:00 EST, Tablet, [facility], Partial fill upon patient [...] 06/21/18 11:05:15 EDT, Route to Pharmacy Electronically, [id number], [facility] Start Date: 06/21/18 Status: Ordered [...] WITH PROLONGED DEPRESSIVE REACTION Confirmed 02/03/07 Active [facility] [place] Team Senior Level Patient Confirmed Active ASTHMA [...] Team Personnel Name: Lola Belcher RN Position: [facility] RN Member Role: Primary Care Nurse Name: Jose Enrique Saul RN Position: [facility] RN Member Role: Primary Care Nurse Name: Symone Mckinnon RN Position: [facility] RN Member Role: Primary Care Nurse Name: Carolyn Pelaez RN Position: [facility] RN Member Role: Primary Care Nurse Name: Deanna Garcia RN Position: [facility] RN Member Role: Primary Care Nurse Name: Fanny Mixon RN Position: [facility] ED RN W/OE and Tasks Member Role: Primary Care Nurse Name: María Ashford RN Position: [facility] AMB Nurse Member Role: Primary Care Nurse Name: Chanelle Hernandez RN Position: [facility] PCO RN Member Role: Primary Care Nurse Name: Estelle García RN Position: [facility] RN Member Role: Primary Care Nurse Name: Deanne Rangel RN Position: [facility] RN Member Role: Primary Care Nurse Name: Carine Jimenez RN Position: [facility] SN RN Member Role: Primary Care Nurse Name: Jenelle Campo RN Position: [facility] RN Member Role: Primary Care Nurse Name: Keyla Godwin RN Position: [facility] RN Member Role: Primary Care Nurse Name: Yeimi Devine RN Position: [facility] RN Member Role: Primary Care Nurse Name: Mary Yan RN Position: [facility] RN Member Role: Primary Care Nurse Name: Iliana Pop RN Position: [facility] RN Member Role: Primary Care Nurse Name: Alcides Dueñas RN Position: [facility] RN Member Role: Primary Care Nurse Name: Lisa Beatty Position: [facility] Outreach Member Role: Lifetime Consulting Physician Name: Armida Beatty RN Position: [facility] RN Member Role: Primary Care Nurse Name: Roque Villasenor MD Position: [facility] Renal MD Member Role: Lifetime Consulting Physician Address: Address: [address] [place] [address], [address] [facility] [place], [place] [address] Name: Lashon Lovell RN Position: [facility] SN RN Member Role: Primary Care Nurse Name: Kristi Giraldo RN Position: [facility] RN Supv Member Role: Primary Care Nurse Name: Jerrod Casarez RN Position: [facility] RN Member Role: Primary Care Nurse Name: Rosalva Martin RN Position: [facility] RN Member Role: Primary Care Nurse Name: Armida Ochoa RN Position: [facility] RN Member Role: Primary Care Nurse Name: Deonna Murillo RN Position: [facility] RN Member Role: Primary Care Nurse Name: Felipa Diehl RN Position: [facility] HBO Wound Member Role: Primary Care Nurse Name: Evelin Powell RN Position: [facility] AMB Nurse Member Role: Primary Care Nurse Name: Deonna Pendleton RN Position: [facility] RN Member Role: Primary Care Nurse Name: Pili Kaba RN Position: [facility] GAGANDEEP RN W/OE and Tasks Member Role: Primary Care Nurse Name: Alejandro Yanes RN Position: [facility] RN Member Role: Primary Care Nurse Name: Stacey Díaz RN Position: [facility] SN RN Member Role: Primary Care Nurse Name: Jac Reese RN Position: [facility] RN Member Role: Primary Care Nurse Name: Celestine Schwartz RN Position: [facility] RN Member Role: Primary Care Nurse Name: Neeta Carpenter RN Position: [facility] RN Member Role: Primary Care Nurse Name: Susie Estrada RN Position: [facility] RN Member Role: Primary Care Nurse Name: Inna Cantor RN Position: [facility] RN Member Role: Primary Care Nurse Name: Chaparrita Pizano DO Position: [facility] Physician (General Medicine) Member Role: PCP Address: Address: [address] [place] [address]- Name: Ning Rolon RN Position: [facility] RN Member Role: Primary Care Nurse Name: Rubi Carrasco RN Position: [facility] SN RN Member Role: Primary Care Nurse Name: Lauryn Holden RN Position: [facility] RN Member Role: Primary Care Nurse Name: Shen Silvestre RN Position: [facility] RN Member Role: Primary Care Nurse Name: Jones Cervantes RN Position: [facility] RN Member Role: Primary Care Nurse Name: Olivia Caputo RN Position: [facility] RN Member Role: Primary Care Nurse Name: Brooklyn Jim RN Position: [facility] RN Member Role: Primary Care Nurse Name: Kimberly Santoro RN Position: [facility] RN Member Role: Primary Care Nurse Name: Haley Diamond RN Position: [facility] RN Member Role: Primary Care Nurse Name: Ashley Meléndez NP Position: [facility] PCO Associate Professional Member Role: Primary Care Nurse Address: Address: [address] [place] [address]- Name: Siomara Patricia [facility] RN Member Role: Primary Care Nurse Name: Neeta Painter RN Position: [facility] RN Member Role: Primary Care Nurse Name: Edith Drummond RN Position: [facility] RN Member Role: Primary Care Nurse Name: Bailey Espinal RN Position: [facility] AMB Nurse Member Role: Primary Care Nurse Name: Brooklyn Ramsey RN Position: [facility] RN Member Role: Primary Care Nurse Name: Keyla Bright RN Position: [facility] RN Member Role: Primary Care Nurse Name: Beverley Tatum RN Position: [facility] RN Member Role: Primary Care Nurse Name: Mainor Devries RN Position: [facility] RN Member Role: Primary Care Nurse Name: Yarely Richards RN Position: [facility] Precision Lens Technician Member Role: Primary Care Nurse Name: Oralia Massey RN Position: [facility] RN Member Role: Primary Care Nurse Name: Rich WILSON pee Position: [facility] RN Member Role: Primary Care Nurse Name: Taiwo Mcgregor RN Position: [facility] RN Member Role: Primary Care Nurse Name: Cally Funes RN Position: [facility] SN RN Member Role: Primary Care Nurse Name: Marina Osorio Position: [facility] RN Member Role: Primary Care Nurse Name: Lisa Blanton RN Position: [facility] Precision Lens Technician Member Role: Primary Care Nurse Name: Danica Stuart RN Position: [facility] AMB Nurse Member Role: Primary Care Nurse Name: Shruthi Ray RN Position: [facility] RN Member Role: Primary Care Nurse Name: Abbe Choe RN Position: [facility] RN Supv Member Role: Primary Care Nurse Name: Farideh Cat LPN Position: [facility] RN Member Role: Primary Care Nurse Name: Janis Morris RN Position: [facility] Precision Lens Technician Member Role: Primary Care Nurse Name: Darrian Chang RN Position: [facility] Precision Lens Technician Member Role: Primary Care Nurse Name: Jerry Mcneill RN Position: [facility] RN Member Role: Primary Care Nurse Care Team Related Persons Name: IVAN VILLASENOR Address: [place] [address] Name: REYNALDO KAUR Address: home [address] [place] [address] Name: EMMA SERRANO Address: home [address] [address] Name: PATRICK MATA Address: home [address] [place] [address] Name: FARIDEH POPE Address: [place] [address]
--- OUTSIDE RECORDS SUMMARY | 2022-08-31 01:00 | XMS_ITS | Continuity of Care Document ---
Author Name Unknown Organization [facility] ter Address [address] [place] [address]- Care Team Providers Care History Teacher Name Role Phone Jerica Chaparrita DO Primary Care Physician Encounter [facility] [place] Date(s[place] 10/18/21 - 10/18/[address] [address]- Discharge Disposition: A-D/C Walkout Attending Physician: Not on Staff, Attending MD Admitting Physician: Not on Staff, Admitting MD Referring Physician: Not on Staff, Referring [...] Angioedema Active Lantiseptic Skin Protectant Active 1per MD, tolerates with diphenhydramine 2Tolerates [...] to receive vaccine 2Admin Note: manufactured by [employer] Medications albuterol 0.042% inhalation solution 3 [...] 09/08/21 13:21:00 EDT, Route to Pharmacy Electronically, [facility], Partial fill [...] 08/31/22 13:22:00 EDT, 08/31/20 13:21:00 EDT, Syrup, [facility][id number], Partial fill upon patient [...] 0 Refills, Maintenance, 04/02/20 9:29:00 EST, Tablet, [facility], Partial fill [...] 06/21/18 11:05:15 EDT, Route to Pharmacy Electronically, [id number], [facility] Start Date: 06/21/18 Status: Ordered Valium 5 mg oral tablet 5 mg, 1, tablet, By Mouth, 2 times a day, PRN, for 3 days, # 6 tablet, Refills 0, Tot. Refills 0, Acute 10/21/21 22:25:00 EDT, Pain , Severe, 10/18/21 22:25:00 EDT, Route to Pharmacy Electronically, [facility] #[id number], Partial fill upon patient reques... Start Date: [...] WITH PRO LONGED DEPRESSIVE REACTION(Confirmed) 02/03/07 Active [facility] Team Senior Level [...] 1 2 3 Height 155 cm (10/18/21 12:45 PM) Oxygen Saturation [94-100 %] 100 % (10/18/21 3:06 PM) 100 % (10/18/21 12:45 PM) 98 % (10/18/21 10:50 AM) Pulse Rate [55-90 bpm] 98 bpm *H* (10/18/21 3:06 PM) 79 bpm (10/18/21 12:45 PM) 94 bpm *H* (10/18/21 10:50 AM) Blood Pressure [90-138/55-84 mm Hg] 120/76mm Hg (10/18/21 3:06 PM) 124/80mm Hg (10/18/21 12:45 PM) Respiratory Rate [16-30 br/min] 18 br/min (10/18/21 12:45 PM) Temperature [96.8-100.4 DegF] 97.6 DegF (10/18/21 3:06 PM) 98.2 DegF (10/18/21 12:45 PM) Mode of Delivery (Oxygen) Room air (10/18/21 3:06 PM) Room air (10/18/21 12:45 PM) Room air (10/18/21 10:50 AM) Blood pressure sites Arm, right (10/18/21 3:06 PM) Arm, left (10/18/21 12:45 PM) Temperature Route Oral (10/18/21 3:06 PM) Oral (10/18/21 12:45 PM) Dry Weight 122 kg (10/18/21 12:45 PM) Social History Social History Type Response Smoking Status Former smoker; Other : quit 04/2015; entered on: 01/30/16 Sex Care Team Personnel Name: Chaparrita Pizano DO Address: [address] [place], [place] [address]
--- OUTSIDE RECORDS SUMMARY | 2022-08-31 01:01 | XMS_ITS | Continuity of Care Document ---
Author Name Unknown Organization [facility] Address [address] [place] [address]- Care Team Providers Care Rental Boats Caretaker Name Role Phone Jerica Chaparrita DO Primary Care Physician Encounter [facility] Date(s): 12/02/21 - 01/01/22 [facility] [address] [place] [address]- Allergies, Adverse Reactions, Alerts Substance Reaction Severity Status doxycycline mouth swelling Active ceftriaxone hives Active melatonin Active penicillin throat swelling Rash Persistent Severe Active famotidine vomiting Active morphine 1, 2, 3 hives Active iodine topical swelling itching Active Zofran 4 can only be given w/ benadryl hives Active Pepcid vomitng Active Compazine shortness of breath Active Seafood Anaphylactic shock d ue to [...] to receive vaccine 2Admin Note: manufactured by [employer] Medications albuterol 0.042% inhalation solution 3 [...] 09/08/21 13:21:00 EDT, Route to Pharmacy Electronically, [facility], Partial fill upon patient request [...] 0 Refills, Maintenance, 04/02/20 9:29:00 EST, Tablet, [facility], Partial fill upon patient request if [...] 06/21/18 11:05:15 EDT, Route to Pharmacy Electronically, [id number], [facility] Start Date: [...] WITH PROLONGED DEPRESSIVE REACTION Confirmed 02/03/07 Active [facility] Team Senior Level Patient Confirmed Active ASTHMA [...] Team Personnel Name: Lola Belcher RN Position: [facility] RN Member Role: Primary Care Nurse Name: Jose Enrique Saul RN Position: [facility] RN Member Role: Primary Care Nurse Name: Symone Mckinnon RN Position: [facility] RN Member Role: Primary Care Nurse Name: Carolyn Pelaez RN Position: [facility] RN Member Role: Primary Care Nurse Name: Deanna Garcia RN Position: [facility] RN Member Role: Primary Care Nurse Name: Fanny Mixon RN Position: [facility] ED RN W/OE and Tasks Member Role: Primary Care Nurse Name: María Ashford RN Position: [facility] AMB Nurse Member Role: Primary Care Nurse Name: Chanelle Hernandez RN Position: [facility] PCO RN Member Role: Primary Care Nurse Name: Estelle García RN Position: [facility] RN Member Role: Primary Care Nurse Name: Deanne Rangel RN Position: [facility] RN Member Role: Primary Care Nurse Name: Carine Jimenez RN Position: [facility] SN RN Member Role: Primary Care Nurse Name: Jenelle Campo RN Position: [facility] RN Member Role: Primary Care Nurse Name: Keyla Godwin RN Position: [facility] RN Member Role: Primary Care Nurse Name: Yeimi Devine RN Position: [facility] RN Member Role: Primary Care Nurse Name: Mary Yan RN Position: [facility] RN Member Role: Primary Care Nurse Name: Iliana Pop RN Position: [facility] RN Member Role: Primary Care Nurse Name: Alcides Dueñas RN Position: [facility] RN Member Role: Primary Care Nurse Name: Lisa Beatty Position: [facility] Outreach Member Role: Lifetime Consulting Physician Name: Armida Beatty RN Position: [facility] RN Member Role: Primary Care Nurse Name: Roque Villasenor MD Position: [facility] Renal MD Member Role: Lifetime Consulting Physician Address: Address: [address] [place] [address], [address] [facility] [address] Name: Lashon Lovell RN Position: [facility] SN RN Member Role: Primary Care Nurse Name: Kristi Giraldo RN Position: [facility] RN Supv Member Role: Primary Care Nurse Name: Jerrod Casarez RN Position: [facility] RN Member Role: Primary Care Nurse Name: Rosalva Martin RN Position: [facility] RN Member Role: Primary Care Nurse Name: Armida Ochoa RN Position: [facility] RN Member Role: Primary Care Nurse Name: Deonna Murillo RN Position: [facility] RN Member Role: Primary Care Nurse Name: Felipa Diehl RN Position: [facility] HBO Wound Member Role: Primary Care Nurse Name: Evelin Powell RN Position: [facility] AMB Nurse Member Role: Primary Care Nurse Name: Deonna Pendleton RN Position: [facility] RN Member Role: Primary Care Nurse Name: Pili Kaba RN Position: [facility] RN Member Role: Primary Care Nurse Name: Alejandro Yanes RN Position: [facility] RN Member Role: Primary Care Nurse Name: Stacey Díaz RN Position: [facility] SN RN Member Role: Primary Care Nurse Name: Jac Reese RN Position: [facility] RN Member Role: Primary Care Nurse Name: Celestine Schwartz RN Position: [facility] RN Member Role: Primary Care Nurse Name: Neeta Carpenter RN Position: [facility] RN Member Role: Primary Care Nurse Name: Susie Estrada RN Position: [facility] RN Member Role: Primary Care Nurse Name: Inna Cantor RN Position: [facility] RN Member Role: Primary Care Nurse Name: Jerica DO Darrylumair Gupta Position: [facility] Physician (General Medicine) Member Role: PCP Address: Address: [address] [place] [address]- Name: Ning Rolon RN Position: [facility] RN Member Role: Primary Care Nurse Name: Rubi Carrasco RN Position: [facility] SN RN Member Role: Primary Care Nurse Name: Lauryn Holden RN Position: [facility] RN Member Role: Primary Care Nurse Name: Shen Silvestre RN Position: [facility] RN Member Role: Primary Care Nurse Name: Jones Cervantes RN Position: [facility] RN Member Role: Primary Care Nurse Name: Olivia Caputo RN Position: [facility] RN Member Role: Primary Care Nurse Name: Brooklyn Jim RN Position: [facility] RN Member Role: Primary Care Nurse Name: Kimberly Santoro RN Position: [facility] RN Member Role: Primary Care Nurse Name: Haley Diamond RN Position: [facility] RN Member Role: Primary Care Nurse Name: Ashley Meléndez NP Position: [facility] PCO Associate Professional Member Role: Primary Care Nurse Address: Address: [address] [place] [address]- Name: Siomara Patricia RN Position: [facility] PCO RN Member Role: Primary Care Nurse Name: Neeta Painter RN Position: [facility] RN Member Role: Primary Care Nurse Name: Edith Drummond RN Position: [facility] RN Member Role: Primary Care Nurse Name: Bailey Espinal RN Position: [facility] AMB Nurse Member Role: Primary Care Nurse Name: Brooklyn Ramsey RN Position: [facility] RN Member Role: Primary Care Nurse Name: Keyla Bright RN Position: [facility] RN Member Role: Primary Care Nurse Name: Beverley Tatum RN Position: [facility] RN Member Role: Primary Care Nurse Name: Mainor Devries RN Position: [facility] RN Member Role: Primary Care Nurse Name: Yarely Richards RN Position: [facility] Hospital Science Technician Member Role: Primary Care Nurse Name: Oralia Massey RN Position: [facility] RN Member Role: Primary Care Nurse Name: Cassie Villanueva RN Position: [facility] RN Member Role: Primary Care Nurse Name: Taiwo Mcgregor RN Position: [facility] RN Member Role: Primary Care Nurse Name: Cally Funes RN Position: [facility] SN RN Member Role: Primary Care Nurse Name: Marina Osorio Position: [facility] RN Member Role: Primary Care Nurse Name: Lisa Blanton RN Position: [facility] Science Technician Member Role: Primary Care Nurse Name: Danica Stuart RN Position: [facility] AMB Nurse Member Role: Primary Care Nurse Name: Shruthi Ray RN Position: [facility] RN Member Role: Primary Care Nurse Name: Abbe Choe RN Position: [facility] RN Supv Member Role: Primary Care Nurse Name: Farideh Cat LPN Position: [facility] RN Member Role: Primary Care Nurse Name: Janis Morris RN Position: [facility] Science Technician Member Role: Primary Care Nurse Name: Darrian Chang RN Position: [facility] Science Technician Member Role: Primary Care Nurse Name: Jerry Mcneill RN Position: [facility] RN Member Role: Primary Care Nurse Care Team Related Persons Name: IVAN VILLASENOR Address: [place] [address] Name: REYNALDO KAUR Address: home [address] [place] [address] Name: EMMA SERRANO Address: home [address] [address] Name: PATRICK MATA Address: [address] [place] [address] Name: FARIDEH POPE Address: [place] [address]
--- OUTSIDE RECORDS SUMMARY | 2022-08-31 01:01 | XMS_ITS | Continuity of Care Document ---
Author Name Unknown Organization [facility] Address [address] [place] [address]- Care Team Providers Care Drafter Name Role Phone JericaChaparrita apple DO Primary Care Physician Encounter [facility] Date(s): 05/29/20 - 06/28/20 [facility] [address], [place] [address] Allergies, Adverse Reactions, Alerts Substance Reaction [...] 1 02/02/07 Given 1Admin Note: manufactured by [employer] Medications albuterol 0.042% inhalation solution 3 [...] Refills, Soft Stop, 06/23/20 10:08:00 EDT, Tablet, [facility]/pharmacy #[id number], Partial fill upon [...] Soft Stop, 04/09/20 13:16:00 EST, [facility], Partial fill upon patient [...] Maintenance, 04/02/20 9:29:00 EST, Tablet, [facility], Partial fill upon patient request if the prescription is for a schedule II opioid drug., 154.94, cm, 0... Start Date: 04/02/20 Status: Ordered oxyCODONE 10 mg oral tablet See Instructions, 1 tablet By Mouth 5 times per day for 7 days, per pain services recommedations, #35 tablet, 0 Refills, Maintenance, 06/20/20 8:49:00 EDT, Tablet, [facility]/pharmacy #[id number], Partial fill upon [...] 08/30/17 8:21:42 EDT, Route to Pharmacy Electronically, [id number], [facility][id number] Start Date: 08/30/17 Status: Ordered Tums 500 mg oral tablet, chewable 500 mg, 1, tablet, Chew, Every 4 hours, PRN, # 180 tablet, Refills 0, Tot. Refills 0, Maintenance, Dyspepsia, 06/21/18 11:05:15 EDT, Route to Pharmacy Electronically, [id number], [facility] Start Date: 06/21/18 Status: [...] WITH PRO LONGED DEPRESSIVE REACTION(Confirmed) 02/03/07 Active [facility] Emeral d Team Senior Level [...]
--- OUTSIDE RECORDS SUMMARY | 2022-08-31 01:01 | XMS_ITS | Continuity of Care Document ---
Author Name Unknown Organization [facility] ter Address [address] [place] [address]- Care Team Providers Care Industrial Maintenance Mechanic Name Role Phone Chaparrita Pizano DO Primary Care Physician Encounter [facility] Date(s): 08/14/19 - 09/13/[address] [address]- [facility] Allergies, Adverse Reactions, Alerts Substance Reaction Severity [...] Patch ana cardia Active Lyrica Angioedema Active Compazine shortness of breath Active 1Tolerates Oxycontin (oxycodone extended release) as [...] vaccine, inactivated 10/31/11 Give n tetanus/diphtheria/pertussis, acel(Tdap) 4/27/18 Given pneumococcal 13-valent vaccine 01/20/15 Given pneumococcal [...] 11:42:54 EDT, Aerosol, Route to Pharmacy Electronically, [id number], [facility]/pharmacy #[id number], Compound Start Date: 06/10/17 Status: [...] capsule, 0 Refills, Maintenance, 05/02/19 10:52:00 EDT, [facility]/pharmacy #[id number], 155.9, cm, 04/26/19 9:14:00 EDT, [...] 05/05/18 9:38:51 EDT, Route to Pharmacy Electronically, [id number]... Start Date: 05/05/18 Status: Ordered Insulin Glargine Inj 0.6 mL = 60 units, Subcutaneous Injection, Daily at bedtime, 0 Refills, Maintenance, 08/20/19 18:48:00 EDT, Injection Start Date: 08/20/19 Status: Ordered LORazepam 0.5 mg oral tablet See Instructions, Take 1 tablet by mouth 1 hour prior to biopsy appointment, may repeat x1 if needed, # 2 tablet, 0 Refills, Maintenance, 04/27/19 16:33:00 EDT, [facility]/pharmacy #[id number], 155.9, cm, 04/26/19 9:14:00 EDT, [...] 08/09/19 13:00:00 EDT, Route to Pharmacy Electronically, [facility]/pharmacy #[id number], Partial fillupon patient request, 155, cm, [...] 08/30/17 8:21:42 EDT, Route to Pharmacy Electronically, [id number], [facility]/pharmacy #[id number] Start Date: 08/30/17 Status: Ordered [...] 06/21/18 11:05:15 EDT, Route to Pharmacy Electronically, [id number], [facility] 3 Start Date: 06/21/18 Status: Ordered [...] WITH PRO LONGED DEPRESSIVE REACTION(Confirmed) 02/03/07 Active [facility] Emeral d Team Senior Level [...]
--- OUTSIDE RECORDS SUMMARY | 2022-08-31 01:01 | XMS_ITS | Continuity of Care Document ---
Author Name Unknown Organization [facility]UNICATION[facility] Onc[facility] y Address [address] [place] [address]- Care Team Providers Care Lay Ups Assembler Name Role Phone Jerica Chaparrita DO Primary Care Physician [facility] Date[facility]): 05/20/20 - 06/19/20 [facility] COMMUNICATION[facility] DISPATCH[facility] Oncology [address] [place], [place] [address] Allergies, Adverse Reactions, Alerts Substance Reaction [...] Refills, Maintenance, 04/03/20 13:23:00 EST, Solution, [facility]/pharmacy #[id number], Partial fill upon patient request if the [...] 0 Refills, Soft Stop, 04/09/20 13:16:00 EST, [facility], Partial fill upon patient [...] 0 Refills, Maintenance, 04/02/20 9:29:00 EST, Tablet, [facility], Partial fill upon patient request if the prescription is for a schedule II opioid drug., 154.94, cm, 0... Start Date: 04/02/20 Status: Ordered oxyCODONE 10 mg oral tablet 1 tablet = 10 mg, By Mouth, Every 4 hours, PRN Pain , Severe, # 42 tablet, 0 Refills, Maintenance, 06/12/20 16:41:00 EDT, Tablet, [facility]/pharmacy #[id number], Partial fill upon patient request if the [...] 08/30/17 8:21:42 EDT, Route to Pharmacy Electronically, [id number], [facility]/pharmacy #[id number] Start Date: 08/30/17 Status: Ordered Tums 500 mg oral tablet, chewable 500 mg, 1, tablet, Chew, Every 4 hours, PRN, # 180 tablet, Refills 0, Tot. Refills 0, Maintenance, Dyspepsia, 06/21/18 11:05:15 EDT, Route to Pharmacy Electronically, [id number], [facility] Start Date: 06/21/18 Status: [...] WITH PRO LONGED DEPRESSIVE REACTION(Confirmed) 02/03/07 Active [facility] Emeral d Team Senior Level Patient(Confirmed) [...]
--- OUTSIDE RECORDS SUMMARY | 2022-08-31 01:01 | XMS_ITS | Continuity of Care Document ---
Author Name Unknown Organization [facility] ter Address [address] [place] [address]- Care Team Providers Care Chemical Etching Processor Name Role Phone Darryl Pizano DOdavidradha Gupta Primary Care Physician Encounter [facility] Date(s): 08/20/21 - 03/05/[address] [address]- Attending Physician: Donald Murphy MD Admitting Physician: [...] to receive vaccine 2Admin Note: manufactured by [employer] Medications albuterol 0.042% inhalation solution 3 [...] 09/08/21 13:21:00 EDT, Route to Pharmacy Electronically, [facility], Partial fill upon patient request if the prescr... Start Date: 09/08/21 Stop Date: 10/08/21 Status: Ordered ENSURE CLEAR LIQD ENSURE CLEAR [...] tablet, 0 Refills, Maintenance, 04/02/20 9:29:00 EST, [facility] 3, Partial fill upon patient [...] 09/08/21 Stop Date: 10/08/21 Status: Ordered Pantoprazole Inj = 40 mg, IV Infusion, Daily at bedtime, 0 Refills, Maintenance, 02/27/22 20:30:00 EST Start Date: 02/27/22 Status: Ordered potassium chloride 8 mEq (600 [...] 06/21/18 11:05:15 EDT, Route to Pharmacy Electronically, [id number], [facility] Start Date: 06/21/18 Status: [...] WITH PROLONGED DEPRESSIVE REACTION Confirmed 02/03/07 Active [facility] [place] Team Senior Level Patient Confirmed Active [facility] [...] Team Personnel Name: Lola Belcher RN Position: [facility] RN Member Role: Primary Care Nurse Name: Jose Enrique Saul RN Position: [facility] RN Member Role: Primary Care Nurse Name: Symone Mckinnon RN Position: [facility] RN Member Role: Primary Care Nurse Name: Carolyn Pelaez RN Position: [facility] RN Member Role: Primary Care Nurse Name: Deanna Garcia RN Position: S RN Member Role: Primary Care Nurse Name: Fanny Mixon RN Position: [facility] ED RN W/OE and Tasks Member Role: Primary Care Nurse Name: María Ashford RN Position: [facility] AMB Nurse Member Role: Primary Care Nurse Name: Chanelle Hernandez RN Position: [facility] PCO RN Member Role: Primary Care Nurse Name: Estelle García RN Position: [facility] RN Member Role: Primary Care Nurse Name: Deanne Rangel RN Position: [facility] RN Member Role: Primary Care Nurse Name: Carine Jimenez RN Position: [facility] RN Member Role: Primary Care Nurse Name: Jenelle Campo RN Position: [facility] RN Member Role: Primary Care Nurse Name: Keyla Godwin RN Position: [facility] RN Member Role: Primary Care Nurse Name: Yeimi Devine RN Position: [facility] RN Member Role: Primary Care Nurse Name: Mary Yan RN Position: [facility] RN Member Role: Primary Care Nurse Name: Iliana Ppo RN Position: [facility] RN Member Role: Primary Care Nurse Name: Alcides Dueñas RN Position: [facility] RN Member Role: Primary Care Nurse Name: Lisa Beatty Position: [facility] Outreach Member Role: Lifetime Consulting Physician Name: Armida Beatty RN Position: [facility] RN Member Role: Primary Care Nurse Name: Roque Villasenor MD Position: [facility] Renal MD Member Role: Lifetime Consulting Physician Address: Address: [address] [place] [address], [address] [facility] [address] Name: Lashon Lovell RN Position: [facility] SN RN Member Role: Primary Care Nurse Name: Kristi Giraldo RN Position: [facility] RN Supv Member Role: Primary Care Nurse Name: Jerrod Casarez RN Position: [facility] RN Member Role: Primary Care Nurse Name: Shane Riley RN Position: [facility] RN Member Role: Primary Care Nurse Name: Rosalva Martin RN Position: [facility] RN Member Role: Primary Care Nurse Name: Armida Ochoa RN Position: [facility] RN Member Role: Primary Care Nurse Name: Deonna Murillo RN Position: [facility] RN Member Role: Primary Care Nurse Name: Felipa Diehl RN Position: [facility] HBO Wound Member Role: Primary Care Nurse Name: Evelin Powell RN Position: [facility] AMB Nurse Member Role: Primary Care Nurse Name: Deonna Pendleton RN Position: [facility] RN Member Role: Primary Care Nurse Name: Pili Kaba RN Position: [facility] RN Member Role: Primary Care Nurse Name: Alejandro Yanes RN Position: [facility] RN Member Role: Primary Care Nurse Name: Stacey Díaz RN Position: [facility] SN RN Member Role: Primary Care Nurse Name: Jac Reese RN Position: [facility] RN Member Role: Primary Care Nurse Name: Celestine Schwartz RN Position: [facility] RN Member Role: Primary Care Nurse Name: Neeta Carpenter RN Position: [facility] RN Member Role: Primary Care Nurse Name: Susie Estrada RN Position: [facility] RN Member Role: Primary Care Nurse Name: Inna Cantor RN Position: [facility] RN Member Role: Primary Care Nurse Name: Chaparrita Pizano DO Position: [facility] Physician (General Medicine) Member Role: PCP Address: Address: [address] [place] [address]- Name: Ning Rolon RN Position: [facility] RN Member Role: Primary Care Nurse Name: Rubi Carrasco RN Position: [facility] SN RN Member Role: Primary Care Nurse Name: Lauryn Holden RN Position: [facility] RN Member Role: Primary Care Nurse Name: Shen Silvestre RN Position: [facility] RN Member Role: Primary Care Nurse Name: Jones Cervantes RN Position: [facility] RN Member Role: Primary Care Nurse Name: Olivia Caputo RN Position: [facility] RN Member Role: Primary Care Nurse Name: Brooklyn Jim RN Position: [facility] RN Member Role: Primary Care Nurse Name: Kimberly Santoro RN Position: [facility] RN Member Role: Primary Care Nurse Name: Haley Diamond RN Position: [facility] RN Member Role: Primary Care Nurse Name: Ashley Meléndez NP Position: [facility] PCO Associate Professional Member Role: Primary Care Nurse Address: Address: [address] [place] [address]- [place] Name: Siomara Patricia RN Position: [facility] PCO RN Member Role: Primary Care Nurse Name: Neeta Painter RN Position: [facility] RN Member Role: Primary Care Nurse Name: Edith Drummond RN Position: [facility] RN Member Role: Primary Care Nurse Name: Bailey Espinal RN Position: [facility] AMB Nurse Member Role: Primary Care Nurse Name: Brooklyn Ramsey RN Position: [facility] RN Member Role: Primary Care Nurse Name: Keyla Bright RN Position: [facility] RN Member Role: Primary Care Nurse Name: Beverley Tatum RN Position: [facility] RN Member Role: Primary Care Nurse Name: Mainor Devries RN Position: [facility] RN Member Role: Primary Care Nurse Name: Yarely Richards RN Position: [facility] Waterworks Chief Engineer Member Role: Primary Care Nurse Name: Oralia Massey RN Position: [facility] RN Member Role: Primary Care Nurse Name: Rich RN pee Position: [facility] RN Member Role: Primary Care Nurse Name: Taiwo Mcgregor RN Position: [facility] RN Member Role: Primary Care Nurse Name: Cally Funes RN Position: [facility] SN RN Member Role: Primary Care Nurse Name: Marina Osorio Position: [facility] RN Member Role: Primary Care Nurse Name: Lisa Blanton RN Position: [facility] Waterworks Chief Engineer Member Role: Primary Care Nurse Name: Danica Stuart RN Position: [facility] AMB Nurse Member Role: Primary Care Nurse Name: Virginia Bacon RN Position: [facility] RN Member Role: Primary Care Nurse Name: Shruthi Ray RN Position: [facility] RN Member Role: Primary Care Nurse Name: Abbe Choe RN Position: [facility] RN Supv Member Role: Primary Care Nurse Name: Farideh Cat LPN Position: [facility] RN Member Role: Primary Care Nurse Name: Janis Morris RN Position: [facility] Waterworks Chief Engineer Member Role: Primary Care Nurse Name: Darrian Chang RN Position: [facility] Waterworks Chief Engineer Member Role: Primary Care Nurse Name: Josef Woods RN Position: [facility] RN Member Role: Primary Care Nurse Name: Siomara Raphael Position: [facility] RN Member Role: Primary Care Nurse Name: Jerry Mcneill RN Position: [facility] RN Member Role: Primary Care Nurse Care Team Related Persons Name: IVAN VILLASENOR Address: [place] [address] Name: REYNALDO KAUR Address: home [address] [place] [address] Name: EMMA SERRANO Address: home [address] [place] [id number] Name: PATRICK MATA Address: home [address] [place] [address] Name: FARIDEH POPE Address: [place] [address]
--- OUTSIDE RECORDS SUMMARY | 2022-08-31 01:01 | XMS_ITS | Continuity of Care Document ---
Author Name Unknown Organization [facility] Address [address] [place] [address]- Care Team Providers Care Biostatistician Name Role Phone Chaparrita Pizano DO Primary Care Physician Encounter 04/09/20 - 10/02/20 [facility] [address] [place] [address]- Discharge Disposition: [facility] Allergies, Adverse Reactions, Alerts Substance Reaction Severity Status doxycycline mouth swelling Active ceftriaxone hives Active penicillin throat swelling Rash Persistent Severe Active Zofran 1 can only be given w/ benadryl hives Active Compazine shortness of breath Active Tylenol hives Active famotidine vomiting Active morphine 2, 3, 4 hives Active iodine topical swelling itching Active Pepcid vomitng Active Levaquin tingling in mouth, rash Acti ve Adhesive Bandage skin excoriation hives Active Nicotine Patch ana cardia Active Reglan severe restless legs Active Contrast Dye hives itchy throat itchy Persistent Mild Active Latex vag rash Active Seafood Anaphylactic shock d ue to adverse food reaction Severe Active Nexium diarrhea, vomitting Active Lyrica Angioedema Active Lantiseptic Skin Protectant Active 1patient tolerated zofran on 05/25/2013 2per , tolerates with diphenhydramine 3Tolerates hydromorphone 4Tolerates Oxycontin (oxycodone extended release) as part of home regimen as shared during June 2014 admission. Immunizations Given and Recorded Vaccine Date Status [...] to receive vaccine 2Admin Note: manufactured by [employer] Medications albuterol 0.042% inhalation solution 3 [...] 08/31/21 13:21:00 EDT, 08/31/20 13:21:00 EDT, Tablet, [facility]/pharmacy #[id number], Partial fill upon patient request... Start Date: [...] 13:22:00 EDT, 08/31/20 13:21:00 EDT, Syrup, [facility]/pharmacy #[id number], Partial fill upon patient request [...] 0 Refills, Soft Stop, 04/09/20 13:16:00 EST, [facility], Partial fill [...] Refills, Maintenance, 04/02/20 9:29:00 EST, Tablet, [facility], Partial fill upon patient request if the prescription is for a schedule II opioid drug., 154.94, cm, 0... Start Date: 04/02/20 Status: Ordered oxyCODONE 10 mg oral tablet See Instructions, 1 tablet By Mouth 5 times per day for 7 days, per pain services recommedations, #35 tablet, 0 Refills, Maintenance, 06/20/20 8:49:00 EDT, Tablet, [facility]/pharmacy #[id number], Partial fill upon patient request [...] 08/30/17 8:21:42 EDT, Route to Pharmacy Electronically, [id number], [facility]/pharmacy #[id number] Start Date: 08/30/17 Status: Ordered Tums 500 mg oral tablet, chewable 500 mg, 1, tablet, Chew, Every 4 hours, PRN, # 180 tablet, Refills 0, Tot. Refills 0, Maintenance, Dyspepsia, 06/21/18 11:05:15 EDT, Route to Pharmacy Electronically, [id number], [facility] Start Date: 06/21/18 Status: [...] WITH PRO LONGED DEPRESSIVE REACTION(Confirmed) 02/03/07 Active [facility] Emeral d Team Senior Level [...]
--- OUTSIDE RECORDS SUMMARY | 2022-08-31 01:01 | XMS_ITS | Continuity of Care Document ---
Author Name Unknown Organization [facility] ter Address [address] [place] [address]- Care Team Providers Care Ditch Repairer Name Role Phone Chaparrita Pizano DO Primary Care Physician Encounter [place] Date(s): 04/16/20 - 04/17/[address] [address]- Discharge Disposition: A-D/C Home Attending Physician: Bhumi Garza DO Admitting Physician: Bhumi Garza DO Referring Physician: Not on Staff, Referring [...] EDT, 04/02/20 9:28:00 EST, Tablet, [facility] 3, Partial fill upon patient [...] 05/07/20 0:00:00 EDT, 04/09/20 6:53:00 EST, Liquid, [facility], Partial fill upon patient [...] 0 Refills, Maintenance, 04/03/20 13:23:00 EST, Solution, [facility]/pharmacy #[id number], Partial fill upon [...] 0 Refills, Maintenance, 04/15/20 11:12:00 EST, Solution, [facility]/pharmacy #[id number], Partial fill upon patient request if the prescriptionis for a schedule II opioid drug., 154, cm, ... Start Date: 04/15/20 Status: Ordered naloxone 4 mg/0.1 mL nasal spray = 4 mg, Nares, Both, Once, # 2 each, 0 Refills, Soft Stop, 04/09/20 13:16:00 EST, [facility], Partial fill upon patient request if [...] Maintenance, 04/02/20 9:29:00 EST, Tablet, [facility], Partial fill upon patient request if the prescription is for a schedule II opioid drug., 154.94, cm, 0... Start Date: 04/02/20 Status: Ordered OxyCONTIN 10 mg oral tablet, extended release 10 mg, 1, tablet, By Mouth, Every 12 hours, # 60 tablet, Refills 0, Tot. Refills 0, Maintenance, 04/02/20 9:32:00 EST, Route to Pharmacy Electronically, [facility], Partial fill upon patient [...] 0:00:00 EDT, 04/02/20 9:33:00 EST, [facility], Partial fill upon patient [...] 08/30/17 8:21:42 EDT, Route to Pharmacy Electronically, [id number], [facility]/pharmacy #[id number] Start Date: 08/30/17 Status: Ordered Tums 500 mg oral tablet, chewable 500 mg, 1, tablet, Chew, Every 4 hours, PRN, # 180 tablet, Refills 0, Tot. Refills 0, Maintenance, Dyspepsia, 06/21/18 11:05:15 EDT, Route to Pharmacy Electronically, [id number], [facility] Start Date: 06/21/18 Status: [...] WITH PRO LONGED DEPRESSIVE REACTION(Confirmed) 02/03/07 Active [facility] Emeral d Team Senior Level [...] 1 2 3 Oxygen Saturation [94-100 %] 97 % (04/17/20 12:36 AM) 96 % (04/16/20 10:40 PM) 100 % (04/16/20 6:28 PM) Pulse Rate [55-90 bpm] 84 bpm (04/17/20 1:08 AM) 80 bpm (04/17/20 12:36 AM) 94 bpm *H* (04/16/20 10:40 PM) Blood Pressure [90-138/55-84 mm Hg] 118/71mm Hg (04/17/20 1:08 AM) 122/72mm Hg (04/17/20 12:36 AM) 110/62mm Hg (04/16/20 10:40 PM) Respiratory Rate [16-30 br/min] 17 br/min (04/17/20 1:08 AM) 16 br/min (04/17/20 12:36 AM) 19 br/min (04/16/20 10:40 PM) Temperature [96.8-100.4 DegF] 98.6 DegF (04/16/20 10:40 PM) 98.4 DegF (04/16/20 6:28 PM) Liters per Minute 0 L/min (04/17/20 12:36 AM) Mode of Delivery (Oxygen) Room air (04/17/20 1:08 AM) Room air (04/17/20 12:36 AM) Room air (04/16/20 10:40 PM) Blood pressure sites Arm, left (04/17/20 1:08 AM) Arm, left (04/16/20 10:40 PM) Arm, left (04/16/20 6:28 PM) Temperature Route Oral (04/16/20 10:40 PM) Oral (04/16/20 6:28 PM) Social History Social History Type Response Smoking Status Former smoker; Other : quit 04/2015; entered on: 01/30/16 Sex Female
--- OUTSIDE RECORDS SUMMARY | 2022-08-31 01:01 | XMS_ITS | Continuity of Care Document ---
Author Name Unknown Organization [facility]ACH[facility]PER[facility] Onc[facility] Address [address] [place] [address]- Care Team Providers Care Rate Manager Name Role Phone Jerica Chaparrita DO Primary Care Physician En[place] [facility] [place] 05/19/20 - 06/18/20 [facility] GARNETT MACHINE OPERATOR Oncology [address] [place], [place] [address] Allergies, Adverse Reactions, Alerts Substance Reaction [...] 0 Refills, Maintenance, 04/03/20 13:23:00 EST, Solution, [facility]/pharmacy #[id number], Partial fill upon patient request if the [...] 0 Refills, Soft Stop, 04/09/20 13:16:00 EST, [facility], Partial fill upon patient [...] 0 Refills, Maintenance, 04/02/20 9:29:00 EST, Tablet, [facility], Partial fill upon patient request if the prescription is for a schedule II opioid drug., 154.94, cm, 0... Start Date: 04/02/20 Status: Ordered oxyCODONE 10 mg oral tablet 1 tablet = 10 mg, By Mouth, Every 4 hours, PRN Pain , Severe, # 42 tablet, 0 Refills, Maintenance, 06/12/20 16:41:00 EDT, Tablet, [facility]/pharmacy #4681, Partial fill upon patient request if the [...] 08/30/17 8:21:42 EDT, Route to Pharmacy Electronically, [id number], [facility]/pharmacy #[id number] Start Date: 08/30/17 Status: Ordered Tums 500 mg oral tablet, chewable 500 mg, 1, tablet, Chew, Every 4 hours, PRN, # 180 tablet, Refills 0, Tot. Refills 0, Maintenance, Dyspepsia, 06/21/18 11:05:15 EDT, Route to Pharmacy Electronically, [id number], [facility] Start Date: 06/21/18 Status: [...] WITH PRO LONGED DEPRESSIVE REACTION(Confirmed) 02/03/07 Active [place] [facility] Emeral d Team Senior Level [...]
--- OUTSIDE RECORDS SUMMARY | 2022-08-31 01:01 | XMS_ITS | Continuity of Care Document ---
Author Name Unknown Organization [facility] ter Address [address] [place] [id number]- Care Team Providers Care Stain Applicator Name Role Phone Darryl Pizano DOdavidradha Gupta Primary Care Physician Encounter [facility] Date(s): 11/13/21 - 01/08/[address] [address]- Attending Physician: Donald Murphy MD Admitting Physician: [...] to receive vaccine 2Admin Note: manufactured by [employer] Medications albuterol 0.042% inhalation solution 3 [...] 09/08/21 13:21:00 EDT, Route to Pharmacy Electronically, [facility], Partial fill upon patient [...] 0 Refills, Maintenance, 04/02/20 9:29:00 EST, Tablet, [facility], Partial fill upon [...] 06/21/18 11:05:15 EDT, Route to Pharmacy Electronically, [id number], [facility] 3 Start Date: [...] WITH PROLONGED DEPRESSIVE REACTION Confirmed 02/03/07 Active [facility] Welcome Team Senior Level Patient Confirmed Active [facility] [...] Team Personnel Name: Lola Belcher RN Position: [facility] RN Member Role: Primary Care Nurse Name: Jose Enrique Saul RN Position: [facility] RN Member Role: Primary Care Nurse Name: Symone Mckinnon RN Position: [facility] RN Member Role: Primary Care Nurse Name: Carolyn Pelaez RN Position: [facility] RN Member Role: Primary Care Nurse Name: Deanna Garcia RN Position: [facility] RN Member Role: Primary Care Nurse Name: Fanny Mixon RN Position: [facility] ED RN W/OE and Tasks Member Role: Primary Care Nurse Name: María Ashford RN Position: [facility] AMB Nurse Member Role: Primary Care Nurse Name: Chanelle Hernandez RN Position: [facility] PCO RN Member Role: Primary Care Nurse Name: Estelle García RN Position: [facility] RN Member Role: Primary Care Nurse Name: Deanne Rangel RN Position: [facility] RN Member Role: Primary Care Nurse Name: Carine Jimenez RN Position: [facility] RN Member Role: Primary Care Nurse Name: Jenelle Campo RN Position: [facility] RN Member Role: Primary Care Nurse Name: Keyla Godwin RN Position: [facility] RN Member Role: Primary Care Nurse Name: Yeimi Devine RN Position: [facility] RN Member Role: Primary Care Nurse Name: Mary Yan RN Position: [facility] RN Member Role: Primary Care Nurse Name: Iliana Pop RN Position: [facility] RN Member Role: Primary Care Nurse Name: Alcides Dueñas RN Position: [facility] RN Member Role: Primary Care Nurse Name: Lisa Beatty Position: [facility] Outreach Member Role: Lifetime Consulting Physician Name: Armida Beatty RN Position: [facility] RN Member Role: Primary Care Nurse Name: Roque Villasenor MD Position: [facility] Renal MD Member Role: Lifetime Consulting Physician Address: Address: [address] [place] [address], [address] [facility] [place], [place] [address] Name: Lashon Lovell RN Position: [facility] SN RN Member Role: Primary Care Nurse Name: Kristi Giraldo RN Position: [facility] RN Supv Member Role: Primary Care Nurse Name: Jerrod Casarez RN Position: [facility] RN Member Role: Primary Care Nurse Name: Rosalva Martin RN Position: [facility] RN Member Role: Primary Care Nurse Name: Armida Ochoa RN Position: [facility] RN Member Role: Primary Care Nurse Name: Deonna Murillo RN Position: [facility] RN Member Role: Primary Care Nurse Name: Felipa Diehl RN Position: [facility] HBO Wound Member Role: Primary Care Nurse Name: Evelin Powell RN Position: [facility] AMB Nurse Member Role: Primary Care Nurse Name: Deonna Pendleton RN Position: [facility] RN Member Role: Primary Care Nurse Name: Pili Kaba RN Position: [facility] RN Member Role: Primary Care Nurse Name: Alejandro Yanes RN Position: [facility] RN Member Role: Primary Care Nurse Name: Stacey Díaz RN Position: [facility] SN RN Member Role: Primary Care Nurse Name: Jac Reese RN Position: [facility] RN Member Role: Primary Care Nurse Name: Celestine Schwartz RN Position: [facility] RN Member Role: Primary Care Nurse Name: Neeta Carpenter RN Position: [facility] RN Member Role: Primary Care Nurse Name: Susie Estrada RN Position: [facility] RN Member Role: Primary Care Nurse Name: Inna Cantor RN Position: [facility] RN Member Role: Primary Care Nurse Name: Chaparrita Pizano DO Position: [facility] Physician (General Medicine) Member Role: PCP Address: Address: [address] [place] [address]- Name: Ning Rolon RN Position: [facility] RN Member Role: Primary Care Nurse Name: Rubi Carrasco RN Position: [facility] SN RN Member Role: Primary Care Nurse Name: Lauryn Holden RN Position: [facility] RN Member Role: Primary Care Nurse Name: Shen Silvestre RN Position: [facility] RN Member Role: Primary Care Nurse Name: Jones Cervantes RN Position: [facility] RN Member Role: Primary Care Nurse Name: Olivia Caputo RN Position: [facility] RN Member Role: Primary Care Nurse Name: Brooklyn Jim RN Position: [facility] RN Member Role: Primary Care Nurse Name: Kimberly aSntoro RN Position: [facility] RN Member Role: Primary Care Nurse Name: Haley Diamond RN Position: [facility] RN Member Role: Primary Care Nurse Name: Ashley Meléndez NP Position: [facility] PCO Associate Professional Member Role: Primary Care Nurse Address: Address: [address] [place] [address]- Name: Siomara Patricia RN Position: [facility] PCO RN Member Role: Primary Care Nurse Name: Neeta Painter RN Position: [facility] RN Member Role: Primary Care Nurse Name: Edith Drummond RN Position: [facility] RN Member Role: Primary Care Nurse Name: Bailey Espinal RN Position: [facility] AMB Nurse Member Role: Primary Care Nurse Name: Brooklyn Ramsey RN Position: [facility] RN Member Role: Primary Care Nurse Name: Keyla Bright RN Position: [facility] RN Member Role: Primary Care Nurse Name: Beverley Tatum RN Position: [facility] RN Member Role: Primary Care Nurse Name: Mainor Devries RN Position: [facility] RN Member Role: Primary Care Nurse Name: Yarely Richards RN Position: [facility] V Belt Builder Member Role: Primary Care Nurse Name: Oralia Massey RN Position: [facility] RN Member Role: Primary Care Nurse Name: Rich WILSON pee Position: [facility] RN Member Role: Primary Care Nurse Name: Taiwo Mcgregor RN Position: [facility] RN Member Role: Primary Care Nurse Name: Cally Funes RN Position: [facility] SN RN Member Role: Primary Care Nurse Name: Marina Osorio Position: [facility] RN Member Role: Primary Care Nurse Name: Lisa Blanton RN Position: [facility] V Belt Builder Member Role: Primary Care Nurse Name: Danica Stuart RN Position: [facility] AMB Nurse Member Role: Primary Care Nurse Name: Shruthi Ray RN Position: [facility] RN Member Role: Primary Care Nurse Name: Abbe Choe RN Position: [facility] RN Supv Member Role: Primary Care Nurse Name: Farideh Cat LPN Position: [facility] RN Member Role: Primary Care Nurse Name: Janis Morris RN Position: [facility] V Belt Builder Member Role: Primary Care Nurse Name: Darrian Chang RN Position: [facility] V Belt Builder Member Role: Primary Care Nurse Name: Jerry Mcneill RN Position: [facility] RN Member Role: Primary Care Nurse Care Team Related Persons Name: KENNEY VILLASENORINDA Address: [place] [address] Name: REYNALDO KAUR Address: [address] [place] [address] Name: EMMA SERRANO Address: home [address] [address] Name: PATRICK MATA Address: [address] [place] [address] Name: FARIDEH POPE Address: [place] [address]
--- OUTSIDE RECORDS SUMMARY | 2022-08-31 01:02 | XMS_ITS | Continuity of Care Document ---
Author Name Unknown Organization [facility] ter Address [address] [place] [address]- Care Team Providers Care Stitch Burnisher Name Role Phone Jerica DOChaparrita Primary Care Physician ( [phone] Encounter [facility] Date(s): 06/25/20 - 08/25/[address] [address] Attending Physician: Donald Murphy MD Admitting Physician: [...] to receive vaccine 2Admin Note: manufactured by [employer] Medications albuterol 0.042% inhalation solution 3 [...] 0 Refills, Soft Stop, 04/09/20 13:16:00 EST, [facility] [facility], Partial [...] 0 Refills, Maintenance, 04/02/20 9:29:00 EST, Tablet, [facility], Partial fill upon patient request if the prescription is for a schedule II opioid drug., 154.94, cm, 0... Start Date: 04/02/20 Status: Ordered oxyCODONE 10 mg oral tablet See Instructions, 1 tablet By Mouth 5 times per day for 7 days, per pain services recommedations, #35 tablet, 0 Refills, Maintenance, 06/20/20 8:49:00 EDT, Tablet, [id number], Partial fill upon patient request if the [...] 05/01/20 9:37:00 EDT, Route to Pharmacy Electronically, [facility] Start Date: 05/01/20 Stop Date: 05/06/20 Status: [...] 08/30/17 8:21:42 EDT, Route to Pharmacy Electronically, [id number], [id number] Start Date: 08/30/17 Status: Ordered Tums 500 mg oral tablet, chewable 500 mg, 1, tablet, Chew, Every 4 hours, PRN, # 180 tablet, Refills 0, Tot. Refills 0, Maintenance, Dyspepsia, 06/21/18 11:05:15 EDT, Route to Pharmacy Electronically, [id number], [facility] Start Date: 06/21/18 Status: Ordered [...] WITH PRO LONGED DEPRESSIVE REACTION(Confirmed) 02/03/07 Active [facility] Emeral d Team Senior Level [...]
--- OUTSIDE RECORDS SUMMARY | 2022-08-31 01:02 | XMS_ITS | Continuity of Care Document ---
Author Name Unknown Organization [facility] ter Address [address] [place] [id number] Care Team Providers Care Labor Conciliator Name Role Phone Jerica Chaparrita DO Primary Care Physician Encounter [facility] [place] Date(s): 06/14/22 - 06/16/[address] [id number]- Encounter Diagnosis Intractable abdominal pain(Final) - 06/15/22 Discharge Disposition: A-D/C Home Attending Physician: Danielle Jones MD Admitting Physician: William Weber DO Referring Physician: Not on Staff, Referring [...] to receive vaccine 2Admin Note: manufactured by [employer] Medications albuterol CFC free 90 mcg/inh inhalation [...] 03/12/22 12:08:00 EST, Route to Pharmacy Electronically, [facility], Partial fill upon [...] Injection, IV Push Slowly, Every 4 hours, Hold for: sedation, RR<10, BP<100/60, HR <60, PRN for Pain , Severe, Routine, 06/15/22 5:39:00 EDT Start Date: 06/15/22 Stop Date: 06/16/22 Status: Discontinued Ensure High Protein Ensure High Protein, 113, [...] 03/09/23 23:00:00 EST, 03/12/22 12:10:00 EST, Patch, [facility], [...] tablet, 0 Refills, Maintenance, 04/02/20 9:29:00 EST, [facility], Partial fill upon patient request if the prescription is for a schedule II opioid drug., 154.94, cm, 04/02/20 8... Start Date: 04/02/20 Status: Ordered oxybutynin 5 mg/5 mL oral syrup 5 mL = 5 mg, By Mouth, 3 times a day, for bladder spasm, # 450 mL, 0 Refills, Maintenance, 06/16/2310:29:00 EDT, Syrup, [facility]acy #[id number], Partial fill upon patient request if the [...] 03/12/22 12:06:00 EST, Route to Pharmacy Electronically, [facility], Partial fill uponpatient request if the [...] 06/21/18 11:05:15 EDT, Route to Pharmacy Electronically, [id number], [facility] Start Date: 06/21/18 [...] WITH PROLONGED DEPRESSIVE REACTION Confirmed 02/03/07 Active [facility] Team Senior Level Patient Confirmed Active ASTHMA [...] (diabetes mellitus), type 2, uncontrolled Confirmed Active Results Radiology Reports * Exam Date Time Procedure Performing Provider Status 06/15/22 1:[address] Abd/Pelvis W/ IV Contrast Only Paresh Presley (Verified) Notes: (CT Abd/Pelvis W/ IV Contrast Only) Reason For Exam: LLQ abdominal pain;Other: RESULT: CT Abd/Pelvis W/ IV Contrast Only CT Abd/Pelvis W/ IV Contrast Only Hx of Present Illness: C o LLQ abdominal pain. Pt also has NVD. Onset was earlier today. History ofbowel obstruction. Was seen last week for similar pain. Has Polanco for blood draws. On TPN at home.; Reason: LLQ abdominal pain; Clinical Question(s): Diverticulitis; TECHNIQUE: Spiral CT through the abdomen and pelvis with IV contrast formatted in 3 planes. 100 cc of Omnipaque 300 was administered intravenously. This study was performed without oral contrast. Weight-based protocol using automatic tube modulation was used to optimize exposure parameters. CTDIvol Body: 30.40 mGy, DLP Body: 1640 mGy*cm. COMPARISON: Multiple priors most recently 06/07/2022 FINDINGS: Director Critical Care View Findings, Lines and Tubes: None. Visualized Chest: Lung bases are clear. No pleural effusion. The heart is normal in size. No pericardial effusion. Diaphragm: Tiny hiatal hernia Liver: Focal fatty deposition along the falciform ligament. More diffuse fatty infiltration also present. Gallbladder: Absent consistent with prior cholecystectomy. Bile ducts: No biliary ductal dilation. Spleen: Upper limits of normal size to mildly enlarged. Pancreas: Normal. Adrenal glands: Normal. Kidneys and ureters: No hydronephrosis, stones, or suspicious masses. Bladder: Under distended but unremarkable Reproductive organs: Status post hysterectomy. No adnexal masses. Stomach, small bowel, and large bowel: No evidence of obstruction or inflammation. Appendix: Normal. Peritoneum and retroperitoneum: No ascites or pneumoperitoneum. No omental or mesenteric lesions. Lymph nodes: No enlarged lymph nodes. Blood vessels: Mild vascular calcifications but no aneurysm. No evidence of venous thrombosis. Incidental note of chronic vasculature calcifications along the right ovarian vein. The right ovarian vein is asymmetrically greater than the left, calcifications support chronicity and these findings can relate to prior thrombus or inflammation of the vein. Abdominal and pelvic wall: Evidence of prior ventral wall hernia repair. Anterior positioning of several bowel loops, at the level of the hernia, can be seen with likely underlying adhesions. Atrophy of the right lower rectus musculature with asymmetric thickening on the left, series 201 image 123 which can relate to granulation tissue or remote hematoma. Bones: No acute abnormality. Moderate disc degenerative changes at L5-S1. IMPRESSION: No acute process. No bowel obstruction. Unchanged chronic findings compared to previous exam 06/07/2022. I have personally reviewed the images and I agree with this report. WSN: [id number] Ordering Physician: Stef Salgado Dictated By: Nighat Wiley DO Dictated Date/Time: 06/15/22 7:39 am Reviewed By: Catarina Alba MD Signed By: Catarina Alba MD Signed Date/Time: 06/15/22 7:44 am Transcribed By: DEIDRE Transcribed Date/Time: 06/15/22 1:18 am Vital Signs Most recent to oldest [Reference Range]: 1 2 3 Height 155 cm (06/16/22 12:03 PM) 155 cm (06/16/22 7:21 AM) 155 cm (06/16/22 3:53 AM) Weight 127.2 kg (06/15/22 1:29 AM) 127.2 kg (06/14/22 11:59 PM) 127.2 kg (06/14/22 8:58 PM) Oxygen Saturation [94-100 %] 99 % (06/16/22 12:03 PM) 100 % (06/16/22 7:21 AM) 98 % (06/16/22 3:53 AM) Pulse Rate [55-90 bpm] 90 bpm (06/16/22 12:03 PM) 77 bpm (06/16/22 7:21 AM) 76 bpm (06/16/22 3:53 AM) Body Mass Index [18.5-24.99 kg/m2] 52.94 kg/m2 *>HHI* (06/15/22 1:29 AM) 52.94 kg/m2 *>HHI* (06/14/22 11:59 PM) Blood Pressure [90-138/55-84 mm Hg] 143/95mm Hg *H* (06/16/22 12:03 PM) 128/81mm Hg (06/16/22 7:21 AM) 125/65mm Hg (06/16/22 3:53 AM) Respiratory Rate [16-30 br/min] 18 br/min (06/16/22 1:53 PM) 20 br/min (06/16/22 12:03 PM) 18 br/min (06/16/22 9:45 AM) Temperature [96.8-100.4 DegF] 97.4 DegF (06/16/22 12:03 PM) 97.9 DegF (06/16/22 7:21 AM) 98.0 DegF (06/16/22 3:53 AM) Mode of Delivery (Oxygen) Room air (06/16/22 12:03 PM) Room air (06/16/22 7:21 AM) Room air (06/16/22 3:53 AM) Blood pressure sites Arm, left (06/16/22 12:03 PM) Arm, right (06/16/22 7:21 AM) Arm, left (06/16/22 3:53 AM) Temperature Route Oral (06/16/22 12:03 PM) Oral (06/16/22 7:21 AM) Oral (06/16/22 3:53 AM) Dry Weight 127.2 kg (06/15/22 1:29 AM) 127.2 kg (06/14/22 11:59 PM) 127.2 kg (06/14/22 8:58 PM) Social History Social History Type Response Smoking Status Former smoker; Other : quit 04/2015; entered on: 01/30/16 Sex Admission evaluation note * William Weber DO W: PERFORM, MODIFY Event Display: Admission Note Authored Date: [id number] Patient: ??VILMA BROWN ? Age:??46 Years?Sex:??Female?:??1975?? Chief Complaint/Reason for Consultation Abdominal Pain History of Present Illness MsClarence??Vilma Brown is a 46-year-old lady with a complex medical history notable for chronic abdominal pain on oral Dilaudid, failure to thrive on TPN through a Polanco catheter, constipation, bipolardisorder, type 2 diabetes mellitus, hypertension, fibromyalgia, hyperlipidemia, migraine, neurogenic bladder, AURELIO, COPD, partial small bowel obstruction secondary to adhesions, peripheral neuropathy,and spinal stenosis who presented to the emergency department with severe abdominal pain, vomiting,and diarrhea as well as an inability to tolerate oral intake including medications. ?? Ms. Brown has a longstanding history of recurrent admissions for very similar symptoms. ??She was recently discharged on 06/09 after being admitted with abdominal pain, nausea, and constipation. As per documentation at that time, this was similar to her prior episodes. ??Prior to this, she had beendischarged on 05/15/2022 with Staph epidermidis bacteremia???antibiotics were completed on 05/26. ??During her prior admission she underwent CT abdomen/pelvis without acute abnormality in abdomen or pelvis, though findings did suggest mild pulmonary edema. ??She was subsequently discharged after her symptoms returned to baseline, and this was essentially treated as a flare of her underlying chronic abdominal pain. ??Since that time she has been doing well on her home regimen, however on??the??evening of her presentation at about 6:00 PM she suddenly felt??a severe left lower quadrant??pain. ??This was best described as a??spasm/cramping discomfort??followed by a need to use the bathroom.?? She subsequently experienced very loose stools as well as??vomiting.?Although her stools were??dark,she does not endorse??overt bright red blood. ??With this initial episode,??Ms. Brown??felt as though she was on the verge of??passing out.?? She subsequently had another episode??of nausea and diarrhea??associated with the aforementioned severe pain. ??Following this??she presented to the??emergency department.?? She does endorse that this is??somewhat consistent with prior symptoms though moresevere than her last episode.?? Since she was last discharged her only medication change has been from lorazepam to diazepam.?? Earlier on the day of presentation, she was able to tolerate some oral intake, however she receives the??majority of her??nutrition through TPN.?? She has a double-lumen??Polanco??catheter on the left side of her chest??which was replaced on the day prior to presentation.?? She denies any other symptoms other than severe pain??which is relieved??by??the Dilaudid which she is receiving as well as??the severe nausea which is relieved by??the Zofran.?? Ms. [place]??does note that she must receive??50 mg IV Benadryl with Zofran??otherwise she will experience??significant adverse reactions. ?? In the emergency department, vitals notable for mild tachycardia and hypertension with blood pressure as high as 169/95 mmHg. ??EKG with sinus tachycardia at 122 bpm. ??QTc 450 ms. ??Labs with anemia???hemoglobin 10.7 (consistent with prior), glucose 264, initial lactate 2.8 (then falsely elevated at 13.3 due to lab abnormality), returned to 1.8 on recheck. ??Urinalysis was bland. ??CT abdomen/pelvis done in the emergency department, per??their??interpretation, it is unremarkable.?? Pending formal read at this time. ??While in the emergency department, received multiple doses of IV Dilaudid, Benadryl, and Zofran as well as a total of 2 L IV fluid. Review of Systems A full review of systems was completed and is otherwise negative except as mentioned in history of present illness. Objective Vital Signs?? Temperature: 98.2 DegF (06/15/22 04:51:00) Temperature Route: Oral (06/15/22 04:51:00) Pulse Rate:??103 bpm??High (06/15/22 04:51:00) Respiratory Rate: 18 br/min (06/15/22 05:46:00) Systolic Blood Pressure:??169 mm Hg??High (06/15/22 04:51:00) Diastolic Blood Pressure:??95 mm Hg??High (06/15/22 04:51:00) Blood pressure sites: Arm, right (06/15/22 04:51:00) Mean Arterial Pressure: 120 mm Hg (06/15/22 04:51:00) Pulse Pressure: 74 mm Hg (06/15/22 04:51:00) Oxygen Saturation: 96 % (06/15/22 04:51:00) Mode of Delivery (Oxygen): Room air (06/15/22 04:51:00) Early Warning Score: 2 (06/15/22 05:46:52) ? Physical Exam General:??Alert, in no acute cardiopulmonary distress. Mental Status:??Normal affect. Responding appropriately to questions. HEENT:??Normocephalic. Respiratory:??Clear to auscultation. No wheezing, rales or rhonchi. Cardiovascular:??Regular rate and rhythm, no murmurs, rubs, or gallops.?? Gastrointestinal:??Abdomen soft, left lower quadrant tenderness, nondistended, bowel tones present. Neurologic:??Cranial nerves II-XII grossly intact. Moves all extremities spontaneously. Extremities:??No edema. Musculoskeletal:??No gross deformities. Integumentary:??Polanco catheter in place on left side of chest,??no erythema??or swelling associated with it. Assessment/Plan Assessment:??Ms. Vilma Brown is a 46-year-old lady with a complex medical history notable for chronic abdominal pain on oral Dilaudid, failure to thrive on TPN through a Polanco catheter, constipation, bipolar disorder, type 2 diabetes mellitus, hypertension, fibromyalgia, hyperlipidemia, migraine, neurogenic bladder, AURELIO, COPD, partial small bowel obstruction secondary to adhesions, peripheralneuropathy, and spinal stenosis who presented to the emergency department with severe abdominal pain, vomiting, and diarrhea as well as an inability to tolerate oral intake including medications. ?? Intractable abdominal pain (R10.9):?? Nausea and vomiting (R11.2):?? On total parenteral nutrition (TPN) (Z78.9):?? Diarrhea (R19.7):?? Longstanding history of intractable??abdominal pain, nausea, and vomiting with multiple??admissionsfor this. Typically receives??Zofran with Benadryl due to side effects of??Zofran??as well as??IV Dilaudid. On oral Dilaudid at home,??however was unable to tolerate oral intake, which??in part was what precipitated her presentation. Suspect that this is??again a flare of her underlying chronic intractable abdominal pain, nausea, and vomiting.?? CT abdomen was done in the emergency department,??pending formal??results. --Reviewed as normal by emergency medicine team, on??my review appears to have??substantial stool burden. Otherwise,??abdomen is soft, lactate level is normalized,??there is no leukocytosis.?Would plan to slowly advance diet as tolerated??and attempt to wean off pain control throughout the day. ?? Plan: ?Pain control with Dilaudid??1 mg every 4 hours as needed ?Treatment of nausea??with Zofran and??Benadryl??every 6 hours as needed -- Benadryl ordered to prevent adverse effects of Zofran ??? Serial abdominal exams ??? Follow-up??formal read of CT scan ?Nutrition consult for TPN ??? May need??IV fluids if not tolerating oral intake ??? Monitor electrolytes with daily labs -- Magnesium added on ?? Elevated lactic acid level (R79.89):?? Lactic acid??level elevated on presentation, likely??in setting of dehydration. ??There was an abnormally high spike, however this appears to have been a lab abnormality. Lactate level is now normalized with IV fluid resuscitation.?? No further need to trend at this point. ?? Diabetes mellitus (E11.9):?? On 35 units??insulin twice daily as well as NovoLog sliding scale and??apparently Humalog in her??TPN. Given that she is not tolerating oral intake and has not received TPN??thus far this admission,??will decrease??glargine dosing. ?? Plan: ??? Insulin glargine 15 units twice daily ?Insulin sliding scale/POC glucose??every 6 hours while??not receiving nutrition/tolerating oral intake ??? Hypoglycemia emergency measures ?Nutrition consult for TPN ?? Chronic and/or Stable Medical Conditions: Hyperlipidemia (E78.5):??Continue simvastatin COPD without exacerbation (J44.9):??Continue albuterol PRN ?? Quality Measures: VTE Prophylaxis:??Ambulatory, low risk Code Status:??Full Code Ongoing Medical Necessity:??Intractable pain Discharge Planning:??Pending pain control, evaluation Patient seen and evaluated 06/15/2022. ? Histories Allergies Allergies ?(Active and Proposed Allergies Only) melatonin? (Severity: Unknown severity, Onset: Unknown) Lantiseptic Skin Protectant? (Severity: Unknown severity, Onset: Unknown) Adhesive Bandage? (Severity: Unknown severity, Onset: Unknown) ?Reactions: hives, skin excoriation morphine? (Severity: Unknown severity, Onset: Unknown) ?Reactions: hives ?Comments: per MD, tolerates with diphenhydramine ?Comments: Tolerates hydromorphone ?Comments: Tolerates Oxycontin (oxycodone extended release) as part of home regimen as shared during June 2014 admission. Zofran? (Severity: Unknown severity, Onset: Unknown) ?Reactions: can only be given w/benadryl, hives ?Comments: patient tolerated zofran on 05/25/2013 Nicotine Patch? (Severity: Unknown severity, Onset: Unknown) ?Reactions: ana cardia Levaquin? (Severity: Unknown severity, Onset: Unknown) ?Reactions: tingling in mouth, rash iodine topical? (Severity: Unknown severity, Onset: Unknown) ?Reactions: swelling itching Tylenol? (Severity: Unknown severity, Onset: Unknown) ?Reactions: hives Compazine? (Severity: Unknown severity, Onset: Unknown) ?Reactions: shortness of breath, Compazine Pepcid? (Severity: Unknown severity, Onset: Unknown) ?Reactions: vomitng Latex? (Severity: Unknown severity, Onset: Unknown) ?Reactions: vag rash doxycycline? (Severity: Unknown severity, Onset: Unknown) ?Reactions: mouth swelling ceftriaxone? (Severity: Unknown severity, Onset: Unknown) ?Reactions: hives Nexium? (Severity: Unknown severity, Onset: Unknown) ?Reactions: diarrhea, vomitting Contrast Dye? (Severity: Persistent Mild, Onset: Week of 05/14/2007) ?Reactions: itchy, itchy throat, hives penicillin? (Severity: Persistent Severe, Onset: Unknown) ?Reactions: Rash, throat swelling Lyrica? (Severity: Unknown severity, Onset: Unknown) ?Reactions: Angioedema Reglan? (Severity: Unknown severity, Onset: Unknown) ?Reactions: severe restless legs Seafood? (Severity: Severe, Onset: Unknown) ?Reactions: Anaphylactic shock due to adverse food reaction famotidine? (Severity: Unknown severity, Onset: Unknown) ?Reactions: vomiting ? Past Medical History/Problem List Active Problems??(29) Abdominal pain Abscess ADJUSTMENT REACTION WITH PROLONGED DEPRESSIVE REACTION ASTHMA Bipolar disorder Constipation COPD (chronic obstructive pulmonary disease) DIABETES MELLITUS WITHOUT MENTION OF COMPLICATION DM (diabetes mellitus), type 2, uncontrolled ESSENTIAL HYPERTENSION Fibromyalgia Follow-up examination after gynecological surgery 7, para 5 Hyperlipidemia Low back pain Medically complex patient MIGRAINE Morbid obesity with BMI of 50.0-59.9, adult Neurogenic bladder Optic neuritis, right AURELIO (obstructive sleep apnea) Partial small bowel obstruction Pelvic mass in female Peripheral autonomic neuropathy due to DM Severe obesity Spinal stenosis Status post total hysterectomy 03/22/06, pathology was benign. Unless there is a history of SHELLY III or cancer, Pap smears are no longer needed Trigger point of abdomen [facility] Team Senior Level Patient ? Past Surgical History EGD - Esophagogastroduodenoscopy: 09/02/21 Colonoscopy, flexible, proximal to splenic flexure; with biopsy, single or multiple: 02/16/16 Laparoscopy, surgical, enterolysis (freeing of intestinal adhesion) (separate procedure): 11/02/13 Removal of spinal electronic stimulator: 07/2013 Excision of fistula of umbilicus: 05/2007 Laparoscopic repair of incisional hernia: 09/2006 Total abdominal hysterectomy (IRMA): 03/21/06 Repair of ventral hernia: 2005 Exploratory laparotomy: 2005 Cholecystectomy Partial hysterectomy Carpal tunnel release Abdominal wall reconstruction Tubal ligation Ganglion cyst ? Family History Mother: Asthma; Degenerative disc disease; Endometriosis; Hypertension ? Social History Prior tobacco use Medications Home Medications Albuterol (albuterol CFC free 90 mcg/inh inhalation aerosol)?2?puff(s)?Inhalation?4 times a day?as needed?for wheezing Bisacodyl (bisacodyl 5 mg oral delayed release tablet)?1?tab(s)?5?Milligram?By Mouth?Daily Calcium Carbonate (Tums 500 mg oral tablet, chewable)?500?Milligram?1?tablet?Chew?Every 4 hours?as needed?Dyspepsia Cholecalciferol (Vitamin D3 2000 intl units oral capsule)?1?capsule?2,000?InternationalUnit?By Mouth?3 times a day Diazepam (diazepam 5 mg oral tablet)?5?Milligram?1?tablet?By Mouth?2 times a day Docusate-Senna (Senna Plus 50 mg-8.6 mg oral tablet)?2?tab(s)?By Mouth?Daily at bedtime Hydromorphone (HYDROmorphone 1 mg/mL oral liquid)?4?Milliliter?4?Milligram?By Mouth?Every 6 hours?as needed?as needed for pain Insulin Aspart (NovoLOG FlexPen 100 units/mL subcutaneous solution)?See Instructions?Subcutaneous Injection?Use as per sliding scale Insulin Glargine?35?unit(s)?Subcutaneous Injection?2 times a day Lactulose (lactulose 10 gm/15 ml oral syrup)?15?Milliliter?10?gram?By Mouth?Daily?as needed?as needed for constipation Lidocaine Topical (lidocaine 5% topical film)?See Instructions?as needed?Pain , Moderate?Topically Daily as needed for painremove patches after 12 hours Magnesium Sulfate (magnesium sulfate 4 g/100 mL-NaCl 0.9% intravenous solution)?See Instructions?patient reports taking 4 g mag Tuesday and Tue IV. 8g of IV Mg on Sat Methocarbamol (methocarbamol 500 mg oral tablet)?1?tab(s)?500?Milligram?By Mouth?Daily at bedtime Miscellaneous Rx (Ensure High Protein)?113?Milliliter?By Mouth?3 times a day with meals Ondansetron (ondansetron 4 mg oral tablet, disintegrating)?4?Milligram?IV Push?Every 6 hours?as needed?Nausea & Vomiting Pantoprazole (Pantoprazole Inj)?40?Milligram?IV Infusion?Daily Potassium Chloride (potassium chloride 8 mEq (600 mg) oral capsule, extended release)?1?capsule?8?Milliequivalent?By Mouth?Daily Propranolol (propranolol 120 mg oral capsule, extended release)?1?capsule?120?Milligram?By Mouth?Daily at bedtime?for 30?Days Simvastatin (simvastatin 40 mg oral tablet)?40?Milligram?1?tablet?By Mouth?Daily at bedtime Sucralfate (Carafate 1 gm oral tablet)?1?gram?1?tablet?By Mouth?3 times a day before meals and bedtime?for 30?Days Sumatriptan (SUMAtriptan 50 mg oral tablet)?1?tab(s)?50?Milligram?By Mouth?Daily?as needed?for migraine headache?may repeat dose after 2 hours up to a maximum of 2 ? EKG study * Event Display: ECG 12-Lead Authored Date: Please click on pdf link to open report * Event Display: ECG 12-Lead Authored Date: Ventricular Rate: 122 BPM Atrial Rate: 122 BPM P-R Interval: 122 ms QRS Duration: 82 ms Q-T Interval: 316 ms QTC Calculation(Bazett): 450 ms P Brighton: 23 degrees R Brighton: -9 degrees T Brighton: -10 degrees Sinus tachycardia Minimal voltage criteria for LVH, may be normal variant ( R in aVL ) Possible Anterior infarct , age undetermined Abnormal ECG When compared with ECG of 07-JUN-2022 13:12, No significant change was found Confirmed by JEMMA SHERIFF [facility] ([id number]) on 06/15/2022 10:05:41 AM [place]: [facility] * Justyn Alfaro RN: PERFORM, SIGN, VERIFY Event Display: [facility] Authored Date: Patient: VILMA BROWN Age: 46 years Sex: Female : 1975 Associated Diagnoses: None Author: Justyn Alfaro RN Findings Problem Related to Alteration in Comfort : Alteration in Comfort/new 06/15/2022 23:00 EDT Alteration in Comfort Related to Other: chronic abd pain Goals & Outcomes: Comfort Pt will report acceptable level of comfort & pain control, Pt will state importance of adhering to pain strategy regime, Pt will demonstrate necessary skills to manage pain, Non-verbal indicators will indicate comfort/pain control Interventions Implemented: Comfort Assess pain using appropriate pain scale/tools, Assess aggravating factors & prevent them accordingly, Assess alleviating factors & promote them accordingly Goals/Interventions, Comfort Yes Comfort, Problem Start 06/15/2022 23:00 Reviewed plan with, Comfort Patient Patient Progression, Comfort Plan Initiation Comfort, Problem Ongoing Yes . Evaluation P-Per Nsg plan of Care I-Per Nsg Interventions E-Pt reports pain 5-10/10, IV Dilaudid given as ordered with relief to 5/10 when receiving IV Benadryl and IV Zofran at the same time. ANNA with generalized weakness. TPN infusing as ordered. Tolerating clear liquids and crackers. Pain ongoing issue.. * Lenora SHERIFF, Addis Reid: PERFORM Event Display: Progress Note Hospital Authored Date: Patient: ??LOVING, VILMA ? Age:??46 Years?Sex:??Female?:??1975? Admitted today pl see H & P ?? CT abd/pelvis no acute process Does not explain her pain UA negative mg 1.2 ?? Plan: Will correct mg Will d/c NPO and start with clear liq and advance if tolerates ?? If tolerates diet can be discharged Note * Daria Ross RN: PERFORM Event Display: Discharge/Transfer Note Hospital Authored Date: [id number] Nursing Discharge Note Entered On: 06/16/2022 14:25 EDT Performed On: 06/16/2022 14:24 EDT by Daria Ross RN Nursing Discharge Note 2 Discharge Time : 06/16/2022 14:24 EDT Discharge Level of Care at Discharge : Homehealth/VNA Discharge Medical Equip Companies(v001) : [facility] Patient Left Unit Via : Wheelchair Patient Accompanied Off Unit with : Responsible adult DC Instructions Provided & Signed by Pt : Yes Patient Understands D/C Instructions : Yes Verbalized Understanding of D/C Plan By : Patient Patient Instructions Discharge Signed : Yes Did Pt have Specialty Bed or Wound Vac : No Vandana WILSON, Daria - 06/16/2022 14:24 EDT * Ade SHERIFF, Danielle: PERFORM Event Display: Discharge/Transfer Note Hospital Authored Date: [id number] Patient: ??LOVING, VILMA ? Age:??46 Years?Sex:??Female?:??1975?? Patient Information Discharge Location: D3B Primary Care Physician: Chaparrita Pizano DO Admit Date/Time: 06/14/22 19:04 Discharge Disposition Discharge Disposition: Home with Home Health Discharge Diagnosis COPD without exacerbation (J44.9) Diabetes mellitus (E11.9) Diarrhea (R19.7) Elevated lactic acid level (R79.89) Hyperlipidemia (E78.5) Intractable abdominal pain (R10.9) Nausea and vomiting (R11.2) On total parenteral nutrition (TPN) (Z78.9) ASTHMA Abdominal pain Bipolar disorder COPD (chronic obstructive pulmonary disease) Constipation DM (diabetes mellitus), type 2, uncontrolled ESSENTIAL HYPERTENSION Fibromyalgia Hyperlipidemia Low back pain MIGRAINE Morbid obesity with BMI of 50.0-59.9, adult Neurogenic bladder AURELIO (obstructive sleep apnea) Optic neuritis, right Partial small bowel obstruction Pelvic mass in female Peripheral autonomic neuropathy due to DM Severe obesity Spinal stenosis Status post total hysterectomy 03/22/06, pathology was benign. Unless there is a history of SHELLY III or cancer, Pap smears are no longer needed Trigger point of abdomen ?? _ Discharge Medications Albuterol (albuterol CFC free 90 mcg/inh inhalation aerosol)?2?puff(s)?Inhalation?4 times a day?as needed?for wheezing Bisacodyl (bisacodyl 5 mg oral delayed release tablet)?1?tab(s)?5?Milligram?By Mouth?Daily Calcium Carbonate (Tums 500 mg oral tablet, chewable)?500?Milligram?1?tablet?Chew?Every 4 hours?as needed?Dyspepsia Cholecalciferol (Vitamin D3 2000 intl units oral capsule)?1?capsule?2,000?InternationalUnit?By Mouth?3 times a day Diazepam (diazepam 5 mg oral tablet)?5?Milligram?1?tablet?By Mouth?2 times a day Docusate-Senna (Senna Plus 50 mg-8.6 mg oral tablet)?2?tab(s)?By Mouth?Daily at bedtime Hydromorphone (HYDROmorphone 1 mg/mL oral liquid)?4?Milliliter?4?Milligram?By Mouth?Every 6 hours?as needed?as needed for pain Insulin Aspart (NovoLOG FlexPen 100 units/mL subcutaneous solution)?See Instructions?Subcutaneous Injection?Use as per sliding scale Insulin Glargine?35?unit(s)?Subcutaneous Injection?2 times a day Lactulose (lactulose 10 gm/15 ml oral syrup)?15?Milliliter?10?gram?By Mouth?Daily?as needed?as needed for constipation Lidocaine Topical (lidocaine 5% topical film)?See Instructions?as needed?Pain , Moderate?Topically Daily as needed for painremove patches after 12 hours Magnesium Sulfate (magnesium sulfate 4 g/100 mL-NaCl 0.9% intravenous solution)?See Instructions?patient reports taking 4 g mag Tuesday and Tue IV. 8g of IV Mg on Sat Methocarbamol (methocarbamol 500 mg oral tablet)?1?tab(s)?500?Milligram?By Mouth?Daily at bedtime Miscellaneous Rx (Ensure High Protein)?113?Milliliter?By Mouth?3 times a day with meals Ondansetron (ondansetron 4 mg oral tablet, disintegrating)?4?Milligram?IV Push?Every 6 hours?as needed?Nausea & Vomiting Pantoprazole (Pantoprazole Inj)?40?Milligram?IV Infusion?Daily Potassium Chloride (potassium chloride 8 mEq (600 mg) oral capsule, extended release)?1?capsule?8?Milliequivalent?By Mouth?Daily Propranolol (propranolol 120 mg oral capsule, extended release)?1?capsule?120?Milligram?By Mouth?Daily at bedtime?for 30?Days Simvastatin (simvastatin 40 mg oral tablet)?40?Milligram?1?tablet?By Mouth?Daily at bedtime Sucralfate (Carafate 1 gm oral tablet)?1?gram?1?tablet?By Mouth?3 times a day before meals and bedtime?for 30?Days Sumatriptan (SUMAtriptan 50 mg oral tablet)?1?tab(s)?50?Milligram?By Mouth?Daily?as needed?for migraine headache?may repeat dose after 2 hours up to a maximum of 2 ? Vaccinations and Immunoprophylaxis influenza virus vaccine, inactivated: 0.5 mL (11/10/21 07:29:00) influenza virus vaccine, inactivated: 0.5 mL (02/05/21 08:22:00) influenza virus vaccine, inactivated: 0.5 Unknown (12/31/19 07:00:00) influenza virus vaccine, inactivated: 0.5 mL (11/11/17 14:40:00) influenza virus vaccine, inactivated: 0.5 mL (03/09/15 14:09:00) influenza virus vaccine, inactivated: 0.5 mL (10/31/11 08:53:00) pneumococcal 13-valent vaccine: 0.5 mL (01/20/15 15:49:00) pneumococcal 23-valent vaccine: 0.5 mL (10/31/11 08:53:00) SARS-CoV-2 (COVID-19) Ad26 vaccine: 0.5 mL (08/06/20 10:00:00) tetanus/diphtheria/pertussis, acel(Tdap): 0.5 mL (06/10/17 11:50:00) Influenza Virus Vaccine (oldterm): 0.5 mL (02/02/07 11:33:00) Pneumococcal Poly (PPV23) (oldterm): 0.5 mL (02/02/07 11:33:00) ? Durable Medical Equipment Current home treatments: Other: Physical therapy (06/08/22) On Admit Medical Equip Companies: [facility] (06/15/22) Discharge Medical Equipment Companies: [facility] (06/15/22) Name of Agency #1: [facility] (06/15/22) Service Categories #1: Other: TPN/IV (06/15/22) Service Comments #1: resume (06/15/22) CPAP/BiPAP Mask Type: Pillows (06/08/22) CPAP/BiPAP Mask Size: Small (06/08/22) Ambulatory devices needed: Walker (06/15/22) ? Medications Discontinued N/A Doses Changed N/A Allergies Allergies ?(Active and Proposed Allergies Only) melatonin? (Severity: Unknown severity, Onset: Unknown) Lantiseptic Skin Protectant? (Severity: Unknown severity, Onset: Unknown) Adhesive Bandage? (Severity: Unknown severity, Onset: Unknown) ?Reactions: hives, skin excoriation morphine? (Severity: Unknown severity, Onset: Unknown) ?Reactions: hives ?Comments: per , tolerates with diphenhydramine ?Comments: Tolerates hydromorphone ?Comments: Tolerates Oxycontin (oxycodone extended release) as part of home regimen as shared during June 2014 admission. Zofran? (Severity: Unknown severity, Onset: Unknown) ?Reactions: can only be given w/benadryl, hives ?Comments: patient tolerated zofran on 05/25/2013 Nicotine Patch? (Severity: Unknown severity, Onset: Unknown) ?Reactions: ana cardia Levaquin? (Severity: Unknown severity, Onset: Unknown) ?Reactions: tingling in mouth, rash iodine topical? (Severity: Unknown severity, Onset: Unknown) ?Reactions: swelling itching Tylenol? (Severity: Unknown severity, Onset: Unknown) ?Reactions: hives Compazine? (Severity: Unknown severity, Onset: Unknown) ?Reactions: shortness of breath, Compazine Pepcid? (Severity: Unknown severity, Onset: Unknown) ?Reactions: vomitng Latex? (Severity: Unknown severity, Onset: Unknown) ?Reactions: vag rash doxycycline? (Severity: Unknown severity, Onset: Unknown) ?Reactions: mouth swelling ceftriaxone? (Severity: Unknown severity, Onset: Unknown) ?Reactions: hives Nexium? (Severity: Unknown severity, Onset: Unknown) ?Reactions: diarrhea, vomitting Contrast Dye? (Severity: Persistent Mild, Onset: Week of 05/14/2007) ?Reactions: itchy, itchy throat, hives penicillin? (Severity: Persistent Severe, Onset: Unknown) ?Reactions: Rash, throat swelling Lyrica? (Severity: Unknown severity, Onset: Unknown) ?Reactions: Angioedema Reglan? (Severity: Unknown severity, Onset: Unknown) ?Reactions: severe restless legs Seafood? (Severity: Severe, Onset: Unknown) ?Reactions: Anaphylactic shock due to adverse food reaction famotidine? (Severity: Unknown severity, Onset: Unknown) ?Reactions: vomiting ? Stroke Onset Details Alteplase: 1 mg Alteplase: 1 mg Service Categories #1: Other: TPN/IV ?? Future Appointments Tuesday 4:00 PM EDT ?? With: Antwan Melo MD Where: [facility] Infectious Disease [address] [place] [address]- Hospital Course Ms. Brown is with chronic abdominal pain and on long-term TPN, admitted for acute on chronic abdominal symptoms, ER workup unremarkable other than mildly elevated lactate that resolved with IVF, CT A/P unremarkable, she is afebrile and without evidence of sepsis. She received IV fluid and IV analgesics with now pain better controlled and ok to tolerate PO, she endorsed chronic bladder spasm and requested urology consult, but given negative UA and CT recommended patient to obtain urology referral outpatient, will start a trial of oxybutynin and see response in several weeks. No other acute events during hospital stay, patient will be discharged with outpatient followup Objective Assessment and Plan ?? Acute on chronic abdominal pain, returned to baseline -multifactorial from previous bowel obstructions/adhesions, decreased gastric emtyping and hyperalgesics from opioid and others, CT A/P negative, pain better controlled and able to tolerate PO ?? Long-term??TPN status ?? Dehydration Lactic acid elevation 2/2 above, resolved ?? DM2 with hyperglycemia -resume Lantus ?? HLD on statin ?? COPD not in exacerbation ?? Possible overactive bladder -consider a trial of oxybutynin and outpatient urology referral as needed ?? Discussed with RN/CM. ? Measurements?? Height: 155 cm (06/16/22) Weight: 127.2 kg (06/15/22) Dry Weight: 127.2 kg (06/15/22) Body Mass Index:??52.94 kg/m2??Critical (06/15/22) ? Vital Signs?? Temperature: 97.9 DegF (06/16/22 07:21:00) Temperature Route: Oral (06/16/22 07:21:00) Pulse Rate: 77 bpm (06/16/22 07:21:00) Respiratory Rate: 18 br/min (06/16/22 09:45:00) Systolic Blood Pressure: 128 mm Hg (06/16/22 07:21:00) Diastolic Blood Pressure: 81 mm Hg (06/16/22 07:21:00) Blood pressure sites: Arm, right (06/16/22 07:21:00) Mean Arterial Pressure: 97 mm Hg (06/16/22 07:21:00) Pulse Pressure: 47 mm Hg (06/16/22 07:21:00) Oxygen Saturation: 100 % (06/16/22 07:21:00) Mode of Delivery (Oxygen): Room air (06/16/22 07:21:00) Early Warning Score: 2 (06/16/22 09:47:04) ? Perfusion Assessment Capillary Refill: < 3 seconds (06/15/22 18:00:00) Cardiovascular: WNL except (06/16/22 07:00:00) Cardiovascular Assessment Status: Unchanged from recorder's assessment (06/16/22 06:00:00) Cardiovascular Symptoms: Edema present (06/16/22 07:00:00) Dorsalis Pedis Pulse, Left: Normal (06/16/22 07:00:00) Dorsalis Pedis Pulse, Right: Normal (06/16/22 07:00:00) Heart Rhythm: Regular (06/15/22 18:00:00) Heart Sounds: S1, S2 (06/16/22 07:00:00) Nail Bed Color, Fingers: [place] (06/15/22 18:00:00) Skin Temperature Lower Extremities: Warm (06/15/22 18:00:00) Skin Temperature Upper Extremities: Warm (06/15/22 18:00:00) ? Pain Scores 1 - 10 Pain Scale Score: 4 (07:00) Pain relief acceptable: Yes (00:54) ? Ventilator Settings?? No qualifying data available. ? Intake/Output? 06/14 19:04 06/16 07:00 06/15 07:00 06/14 07:00 04/30 07:00 ?? 06/16 09:50 06/16 09:50 06/16 06:59 06/15 06:59 06/14 06:59 Intake ? 1826 ?0 ? 1825 ?1 ?0 Output ?0 ?0 ?0 ?0 ?0 Net Total ? 1826 ?0 ? 1825 ?1 ?0 ? Precautions No Precautions documented.? Carlos Enrique Coma Scale Carlos Enrique Coma Score: 15 (06/14/22 20:58:00) Motor Response-Adult: Obeys commands (06/14/22 20:58:00) Response Eye Opening: Spontaneously (06/14/22 20:58:00) Verbal Response-Adult: Oriented and converses (06/14/22 20:58:00) ?? Basic ADLs Ambulatory devices needed: Walker (06/15/22) ? Mobility & Ambulation Level Mobility & Ambulation Level Ambulatory devices needed: Walker (06/15/22) ?? Therapeutic Activity Therapeutic Activities/Mobility/Balance?? No qualifying data available. ?? . Physical Exam Constitutional: Alert, in no acute distress. Head EENT: Extraocular muscle movement intact.??Moist mucous membranes.?? Respiratory: Clear to auscultation. No wheezing or crackles. No use of accessory muscles. L upper chest tunneled catheter dressing clean, no tender no discharge. Cardiovascular: S1S2 regular. No murmurs, rubs or gallops. Gastrointestinal: Abdomen soft, non-tender, non-distended. Normal bowel sounds. Extremities: No lower extremity pitting??edema. No cyanosis or clubbing. Neurologic: AAOx3, Speech normal. No focal neurological deficits. Psychiatric: Normal mood and affect Pending Results Add On Lab Order ordered on 06/15/2022 Patient Education Titles Overactive Bladder Syndrome (OAB)?? Follow-Up Appointments Added Follow Up ?Time Frame ?Comments Jerica DO, Darryldavidradha Gupta?2 to 3 weeks Patient Instructions Please obtain a urology referral from primary care provider regarding long- standing bladder spasm. Post Discharge Care Activity: Activity as tolerated Code Status: ?? Full Resuscitation Condition: Stable Prognosis: Fair Home Health Face to Face *Denotes mandatory hernandez ?? *I certify that this patient is under my care and that I or an allowed non- physician working with me had a face to face encounter with the patient on this date:??06/16/2022 09:57 ?? *The encounter with the patient was in whole, or in part, for the following medical condition, which is the primary diagnosis(es) for home health care:??COPD without exacerbation (J44.9) Diabetes mellitus (E11.9) Diarrhea (R19.7) Elevated lactic acid level (R79.89) Hyperlipidemia (E78.5) Intractable abdominal pain (R10.9) Nausea and vomiting (R11.2) On total parenteral nutrition (TPN) (Z78.9) ASTHMA Abdominal pain Bipolar disorder COPD (chronic obstructive pulmonary disease) Constipation DM (diabetes mellitus), type 2, uncontrolled ESSENTIAL HYPERTENSION Fibromyalgia Hyperlipidemia Low back pain MIGRAINE Morbid obesity with BMI of 50.0-59.9, adult Neurogenic bladder AURELIO (obstructive sleep apnea) Optic neuritis, right Partial small bowel obstruction Pelvic mass in female Peripheral autonomic neuropathy due to DM Severe obesity Spinal stenosis Status post total hysterectomy 03/22/06, pathology was benign. Unless there is a history of SHELLY III or cancer, Pap smears are no longer needed Trigger point of abdomen ? *Select the indications for the discipline/s that are being arranged for this patient. Nursing (select all that apply): [_] None [*] Medication management (reconciliation, teaching)?? [*] Chronic disease management?? [_] Wound care and treatment?? [_] Home safety evaluation [*] Administer SQ/IM/IV medications?? [_] Cath care?? [_] Drain care?? [_] Trach or GT care?? Other resume previously setup [facility] Occupation Therapy (select all that apply): [_] None [_] ADL Management [_] Fall prevention training [_] Energy conservation [_] Cognitive training Other _ Physical Therapy (select all that apply): [_] None [_] Functional mobility training [_] Home exercise program to strengthen [_] Increase ROM?? [_] Falls prevention training [_] Home maintenance program for chronic disease Other _ Speech Therapy (select all that apply): [_] None [_] Swallow evaluation and training [_] Speech and language training [_] Cognitive training to process, organize, and/or recall information Other _ ? *Homebound due to (select all that apply): [*] Inability to leave home without assistance/supervision [_] Inability to ambulate without assistance [*] Pain [_] Decreased strength and endurance [_] Unsteady gait [_] Severe SOB and fatigue [_] Impaired transfers [_] Inability to negotiate stairs [_] Limited weight bearing [_] Mental status change? *Physician Signature:??DANIELLE JONES ?? *By signing this, I certify that I have personally evaluated the patient and agree with the findings and recommendations as documented above. ? Results Discharge Labs BLOOD COUNT & DIFF WBC 4.9 k/mm3 ()?? 06/16/2022 05:37 RBC 4.04 m/mm3 (Low)?? 06/16/2022 05:37 Hgb 10.2 Gm/dL (Low)?? 06/16/2022 05:37 Hct 31.9 % (Low)?? 06/16/2022 05:37 MCV 79.0 femtoliters (Low)?? 06/16/2022 05:37 MCH 25.2 pg (Low)?? 06/16/2022 05:37 MCHC 32.0 g/dL (Low)?? 06/16/2022 05:37 Platelet Count 340 k/mm3 ()?? 06/16/2022 05:37 RDW-SD 36.6 femtoliters ()?? 06/16/2022 05:37 MPV 8.9 femtoliters (Low)?? 06/16/2022 05:37 Nucleated RBC (Automated) 0.0 #/100 WBC'S ()?? 06/16/2022 05:37 Abs. NRBC 0.0 k/mm3 ()?? 06/16/2022 05:37 Abs. Neut 2.4 k/mm3 ()?? 06/16/2022 05:37 Abs. Lymph 1.8 k/mm3 ()?? 06/16/2022 05:37 Abs. [place] 0.4 k/mm3 ()?? 06/16/2022 05:37 Abs. Eo 0.3 k/mm3 ()?? 06/16/2022 05:37 Abs. Baso 0.0 k/mm3 ()?? 06/16/2022 05:37 Neut % 49.1 % ()?? 06/16/2022 05:37 Lymph % 35.8 % ()?? 06/16/2022 05:37 [place] % 9.0 % ()?? 06/16/2022 05:37 Eos % 5.1 % ()?? 06/16/2022 05:37 Baso % 0.6 % ()?? 06/16/2022 05:37 Imm Gran 0.4 % ()?? 06/16/2022 05:37 Abs. Imm Gran 0.0 k/mm3 ()?? 06/16/2022 05:37 ?? CHEM GENERAL Sodium 137 mmol/L ()?? 06/16/2022 05:37 Potassium 4.1 mmol/L ()?? 06/16/2022 05:37 Chloride 99 mmol/L ()?? 06/16/2022 05:37 Bicarbonate Level 28 mmol/L ()?? 06/16/2022 05:37 Anion Gap 10 ()?? 06/16/2022 05:37 Glucose Level 110 mg/dL (High)?? 06/16/2022 05:37 Glucose, POC 156 mg/dL (High)?? 06/16/2022 08:14 BUN 11 mg/dL ()?? 06/16/2022 05:37 Creatinine-Blood 0.6 mg/dL ()?? 06/16/2022 05:37 Estimated GFR Creatinine 112 ML/MIN/1.73 M2 ()?? 06/16/2022 05:37 Calcium 9.5 mg/dL ()?? 06/15/2022 01:42 Magnesium 1.9 mg/dL ()?? 06/16/2022 05:37 Protein, Total 7.1 Gm/dL ()?? 06/14/2022 22:21 Albumin 4.2 Gm/dL ()?? 06/14/2022 22:21 AG Ratio 1.4 ()?? 06/14/2022 22:21 Alkaline Phosphatase 129 units/L (High)?? 06/14/2022 22:21 Lipase 17 units/L ()?? 06/14/2022 22:21 AST (SGOT) 15 units/L ()?? 06/14/2022 22:21 ALT (SGPT) 14 units/L ()?? 06/14/2022 22:21 Bilirubin, Total 0.4 mg/dL ()?? 06/14/2022 22:21 Lactate 1.8 mmol/L ()?? 06/15/2022 01:42 ? ENDOCRINE/TUMOR MARKER Serum Qual NEGATIVE mIU/mL ()?? 06/14/2022 22:21 ? HEME OTHER Hold Blue Top SPECIMEN DISCARDED AFTER 4 HOURS. ()?? 06/14/2022 22:21 ? UA/URINALYSIS Appear/Color, Urine LIGHT YELLOW ()?? 06/15/2022 17:00 Specific [place], Urine 1.037 (High)?? 06/15/2022 17:00 pH, Urine 5.5 ()?? 06/15/2022 17:00 Albumin, Urine TRACE (Abnormal)?? 06/15/2022 17:00 Glucose, Urine TRACE (Abnormal)?? 06/15/2022 17:00 Ketones, Urine NEGATIVE ()?? 06/15/2022 17:00 Bilirubin, Urine NEGATIVE ()?? 06/15/2022 17:00 Hemoglobin, Urine NEGATIVE ()?? 06/15/2022 17:00 Nitrite, Urine NEGATIVE ()?? 06/15/2022 17:00 Leukocyte, Urine NEGATIVE ()?? 06/15/2022 17:00 Urobilinogen NORMAL mg/dL ()?? 06/15/2022 17:00 WBC's, Urine 1 /HPF ()?? 06/15/2022 17:00 RBC's, Urine 2 /HPF ()?? 06/15/2022 17:00 Squamous Epith 4 /HPF ()?? 06/15/2022 17:00 Mucus SLIGHT /LPF ()?? 06/15/2022 17:00 Hold Urine Culture Testing available 48 hours from time of collection. ()?? 06/15/2022 17:00 ?? URINE OTHER Est Creatinine Clearance 86.63 mL/min ()?? 06/14/2022 23:15 ? VIROLOGY COVID-19 POC Result NEGATIVE ()?? 06/14/2022 19:25 ? 35??minutes spent on discharge * Daria Ross RN: PERFORM Event Display: Patient Education/Instruction Authored Date: [id number] Inpatient Adult Discharge Instructions [address] [address] Name: VILMA BROWN : 1975 Visit: 06/14/2022 19:04:00 Current Date: 06/16/2022 14:01 Account: [id number] Inpatient Adult Discharge Instructions We would like to thank you for allowing us to assist you with your healthcare needs. The following includes patient education materials and information regarding your injury/illness. Our entire staffstrives to provide an excellent experience for our patients and their families. PLEASE ENSURE YOU FOLLOW-UP PER THE INSTRUCTIONS BELOW! ?? YOUR OPINION IS IMPORTANT TO US! Please complete the survey you may receive by mail or email. Your feedback will be used to make improvements to the healthcare experiences of our patients and their families. Surveys are administered by [employer] ?? If further treatment with your primary care physician or another doctor is recommended, it is important for you to keep the appointment. Call your primary care physician or return to the Emergency Department immediately if your condition worsens, fails to improve, or new symptoms develop. If you need to find a doctor, you can call [facility] for a referral at [phone] or toll free at [phone] or log in to [email or web address].. ?? You can view and manage your care through the patient portal or by using a health care aniyah of your choosing. [employer] is a website that allows you to securely view your medical information including your hospital discharge summary, office visit summaries, medications and follow-up visits. You can also request appointments, renew medications, and request access to your medical information using a health care aniyah of your choosing, or just ask a question. You can enroll at [email or web address] or register during your next office visit. You have been discharged from [facility], Patient Care Unit: S3. If you have any questions regarding these instructions after you leave, please call us and we will be happy to assist you. [facility] Your Care Team Attending Physician Ade SHERIFF, Danielle Discharging Providers Ade SHERIFF, Danielle Reason for Your Visit Abdominal Pain Your Diagnosis Abdominal pain COPD without exacerbation Diabetes mellitus Diarrhea Elevated lactic acid level Hyperlipidemia Intractable abdominal pain Nausea and vomiting On total parenteral nutrition (TPN) Tests Performed Below is a partial list of the tests performed during your hospitalization. You may have had other tests and procedures not included in this list. Please discuss all test results with your provider. Basic Metabolic Panel BUN CBC w/ Differential Comprehensive Metabolic Panel COVID-19 RNA POC Creatinine Electrolytes Glucose Level GLUCOSE POC Hold Blue Top Tube Lactate Level Lactic Acid Level Lipase Magnesium Level Serum Qualitative Urinalysis w/hold for Urine Culture CT Abd/Pelvis W/ IV Contrast Only Primary Care Provider Chaparrita Pizano DO Advance Directive . Discharge Vitals Temperature: 97.4 DegF Height: 155 cm Pulse Rate: 90 bpm Weight: 127.2 kg Respiratory Rate: 18 br/min Body Mass Index:??52.94 kg/m2??Critical Systolic Blood Pressure:??143 mm Hg??High Body surface area: 2.34 Diastolic Blood Pressure:??95 mm Hg??High ?? Oxygen Saturation: 99 % ?? Studies Pending All tests and labs ordered during this hospital stay have been completed unless listed below. Please discuss all pending results with your provider listed above in these instructions. ?? Add On Lab Order What to do next Instructions From Your Doctor Please obtain a urology referral from primary care provider regarding long- standing bladder spasm. Discharge Orders Activity:??Activity as tolerated Code Status:?? Full Resuscitation Condition:??Stable Prognosis:??Fair Scheduled Follow-Up Appointments Tuesday. 2022 4:00 PM EDT ?? With: Antwan Melo MD Where: [facility] Infectious Disease [address] [place] [address]- You Need to Schedule the Following Appointments Follow Up with??Jerica DO, Chaparrita Gupta When??Within 2 to 3 weeks Where: [address] [place] [address] [place] [address]- Discharge Medications VILMA BROWN :1975 Visit Date:06/14/2022 Medications: Please continue your medications until treatment is completed or stopped by your provider. Medications not listed below should be discontinued. Discuss any questions related to medications with your provider. What How Much When Instructions Next Dose New Oxybutynin (oxybutynin 5 mg/ 5 mL oral syrup) 5 Milliliter Oral 3 times a day for bladder spasm ?? Pickup at [facility]/pharmacy #[id number] 06/16?? 3?? PM Unchanged Albuterol (albuterol CFC free 90 mcg/ inh inhalation aerosol) 2 puff(s) Inhalation 4 times a day as needed for for wheezing as prescribed Unchanged Bisacodyl (bisacodyl 5 mg oral delayed release tablet) 1 tab(s) Oral Daily as prescribed Unchanged Calcium Carbonate (Tums 500 mg oral tablet, chewable) 1 tab(s) Chew Every 4 hours as needed for Dyspepsia as prescribed Unchanged Cholecalciferol (Vitamin D3 2000 intl units oral capsule) 1 capsule Oral 3 times a day 06/16?? 3?? PM Unchanged Diazepam (diazepam 5 mg oral tablet) 1 tab(s) Oral Twice a day 06/16?? PM Unchanged Docusate-Senna (Senna Plus 50 mg-8.6 mg oral tablet) 2 tab(s) Oral Daily at Bedtime as prescribed Unchanged Hydromorphone (HYDROmorphone 1 mg/ mL oral liquid) 4 Milliliter Oral Every 6 hours as needed for as needed for pain 06/16 8PM Unchanged Insulin Aspart (NovoLOG FlexPen 100 units/ mL subcutaneous solution) See instructions Use as per sliding scale ?? as prescribed Unchanged Insulin Glargine 35 unit(s) Subcutaneous Injection Twice a day 06/16?? PM Unchanged Lactulose (lactulose 10 gm/ 15 ml oral syrup) 15 Milliliter Oral Daily as needed for as needed for constipation as prescribed Unchanged Lidocaine Topical (lidocaine 5% topical film) See instructions Topically Daily as needed for pain remove patches after 12 hours ?? as prescribed Unchanged Magnesium Sulfate (magnesium sulfate 4 g/ 100 mL-NaCl 0.9% intravenous solution) See instructions patient reports taking 4 g mag Tuesday and Tue IV. 8g of IV Mg on Sat ?? as prescribed Unchanged Methocarbamol (methocarbamol 500 mg oral tablet) 1 tab(s) Oral Daily at Bedtime as prescribed Unchanged Miscellaneous Rx (Ensure High Protein) 113 Milliliter Oral 3 times a day with meals Unchanged Ondansetron (ondansetron 4 mg oral tablet, disintegrating) 4 Milligram Intravenous Push Every 6 hours as needed for Nausea & Vomiting 06/16?? 7PM Unchanged Pantoprazole (Pantoprazole Inj) 40 Milligram Intravenous Infusion Daily 06/17?? AM Unchanged Potassium Chloride (potassium chloride 8 mEq (600 mg) oral capsule, extended release) 1 capsule Oral Daily as prescribed Unchanged Propranolol (propranolol 120 mg oral capsule, extended release) 1 capsule Oral Daily at Bedtime Duration: 30 Days as prescribed Unchanged Simvastatin (simvastatin 40 mg oral tablet) 1 tab(s) Oral Daily at Bedtime 06/16?? PM Unchanged Sucralfate (Carafate 1 gm oral tablet) 1 tab(s) Oral 3 times a day before meals and bedtime Duration: 30 Days as prescribed Unchanged Sumatriptan (SUMAtriptan 50 mg oral tablet) 1 tab(s) Oral Daily as needed for for migraine headache may repeat dose after 2 hours up to a maximum of 2 ?? as prescribed Pharmacy Information [id number]: [address], [place] [id number] [phone] ?? What How Much When Comments Stop Taking DiphenhydrAMINE (Banophen 50 mg oral capsule) 1 capsule Intravenous Push 4 times a day as needed for as needed for itching Stop Taking Lorazepam (LORazepam 0.5 mg oral tablet) 1 tab(s) Oral Daily at Bedtime Test Results Below is a partial list of the most recent Laboratory test results done prior to this discharge. You may have had other tests and procedures not included in this list. Please discuss all test resultswith your provider. Est Creatinine Clearance - 86.63 mL/min (06/14/2022) Basic Metabolic Panel (06/15/2022) ???Sodium - 133 mmol/L???Potassium - 4.2 mmol/L???Chloride - 95 mmol/L???Bicarbonate Level - 29 mmol/L???Anion Gap - 9???Glucose Level - 264 mg/dL???BUN - 11 mg/dL???Creatinine-Blood - 0.6 mg/dL???Estimated GFR Creatinine - 113 ML/MIN/1.73 M2???Calcium - 9.5 mg/dL BUN (06/16/2022) ???BUN - 11 mg/dL CBC w/ Differential (06/16/2022) ???WBC - 4.9 k/mm3???RBC - 4.04 m/mm3???Hgb - 10.2 Gm/dL???Hct - 31.9 %???MCV - 79.0 femtoliters???MCH - 25.2 pg???MCHC - 32.0 g/dL???Platelet Count - 340 k/mm3???RDW-SD - 36.6 femtoliters???MPV - 8.9 femtoliters???Nucleated RBC (Automated) - 0.0 #/100 WBC'S???Abs. NRBC - 0.0 k/mm3???Abs. Neut - 2.4 k/mm3???Abs. Lymph - 1.8 k/mm3???Abs. Summit - 0.4 k/mm3???Abs. Eo - 0.3 k/mm3???Abs. Baso - 0.0 k/mm3???Neut % - 49.1 %???Lymph % - 35.8 %???Summit % - 9.0 %???Eos % - 5.1 %???Baso % - 0.6 %???Imm Gran- 0.4 %???Abs. Imm Gran - 0.0 k/mm3 Comprehensive Metabolic Panel (06/14/2022) ???Sodium - 133 mmol/L???Potassium - 4.4 mmol/L???Chloride - 95 mmol/L???Bicarbonate Level - 28 mmol/L???Anion Gap - 10???Glucose Level - 326 mg/dL???BUN - 11 mg/dL???Creatinine-Blood - 0.6 mg/dL???Estimated GFR Creatinine - 111 ML/MIN/1.73 M2???Calcium - 9.6 mg/dL???Protein, Total - 7.1 Gm/dL???Alb umin - 4.2 Gm/dL???AG Ratio - 1.4???Alkaline Phosphatase - 129 units/L???AST (SGOT) - 15 units/L???ALT (SGPT) - 14 units/L???Bilirubin, Total - 0.4 mg/dL COVID-19 RNA POC (06/14/2022) ???COVID-19 POC Result - NEGATIVE Creatinine (06/16/2022) ???Creatinine-Blood - 0.6 mg/dL???Estimated GFR Creatinine - 112 ML/MIN/1.73 M2 Electrolytes (06/16/2022) ???Sodium - 137 mmol/L???Potassium - 4.1 mmol/L???Chloride - 99 mmol/L???Bicarbonate Level - 28 mmol/L???Anion Gap - 10 Glucose Level (06/16/2022) ???Glucose Level - 110 mg/dL GLUCOSE POC (06/16/2022) ???Glucose, POC - 261 mg/dL Hold Blue Top Tube (06/14/2022) ???Hold Blue Top - SPECIMEN DISCARDED AFTER 4 HOURS. Lactate Level (06/15/2022) ???Lactate - 1.8 mmol/L Lactic Acid Level (06/14/2022) ???Lactate - 13.3 mmol/L Lipase (06/14/2022) ???Lipase - 17 units/L Magnesium Level (06/16/2022) ???Magnesium - 1.9 mg/dL Serum Qualitative (06/14/2022) ??? Serum Qual - NEGATIVE Urinalysis w/hold for Urine Culture (06/15/2022) ???Appear/Color, Urine - LIGHT YELLOW???Specific [place], Urine - 1.037???pH, Urine - 5.5???Albumin, Urine - TRACE???Glucose, Urine - TRACE???Ketones, Urine - NEGATIVE???Bilirubin, Urine - NEGATIVE???Hemoglobin, Urine - NEGATIVE???Nitrite, Urine - NEGATIVE???Leukocyte, Urine - NEGATIVE???Urobilinoge n - NORMAL???WBC's, Urine - 1 /HPF???RBC's, Urine - 2 /HPF???Squamous Epith - 4 /HPF???Mucus - SLIGHT???Hold Urine Culture - Testing available 48 hours from time of collection. Allergies (NKA means No Known Allergies) Seafood??(Anaphylactic shock due to adverse food reaction) Contrast Dye??(hives, itchy throat, itchy) penicillin??(throat swelling, Rash) Adhesive Bandage??(skin excoriation, hives) Compazine??(shortness of breath) Lantiseptic Skin Protectant Latex??(vag rash) Levaquin??(tingling in mouth, rash) Lyrica??(Angioedema) Nexium??(diarrhea, vomitting) Nicotine Patch??(ana cardia) Pepcid??(vomitng) Reglan??(severe restless legs) Tylenol??(hives) Zofran??(can only be given w/benadryl, hives) ceftriaxone??(hives) doxycycline??(mouth swelling) famotidine??(vomiting) iodine topical??(swelling itching) melatonin morphine??(hives) Problems Active Problems??(29) Abdominal pain?? Abscess?? ADJUSTMENT REACTION WITH PROLONGED DEPRESSIVE REACTION?? ASTHMA?? Bipolar disorder?? Constipation?? COPD (chronic obstructive pulmonary disease)?? DIABETES MELLITUS WITHOUT MENTION OF COMPLICATION?? DM (diabetes mellitus), type 2, uncontrolled?? ESSENTIAL HYPERTENSION?? Fibromyalgia?? Follow-up examination after gynecological surgery?? 7, para 5?? Hyperlipidemia?? Low back pain?? Medically complex patient?? MIGRAINE?? Morbid obesity with BMI of 50.0-59.9, adult?? Neurogenic bladder?? Optic neuritis, right?? AURELIO (obstructive sleep apnea)?? Partial small bowel obstruction?? Pelvic mass in female?? Peripheral autonomic neuropathy due to DM?? Severe obesity?? Spinal stenosis?? Status post total hysterectomy 03/22/06, pathology was benign. Unless there is a history of SHELLY III or?? Trigger point of abdomen?? [facility] Team Senior Level Patient?? Education Materials Below is the list of Educational Leaflet Providered with your Discharge Instructions. Overactive Bladder Syndrome (OAB)?? Valuables and Belongings I fully understand and agree that [facility] accepts no responsibility for all my personal property including clothing, toilet articles, radios, jewelry, dentures, hearing aids, rings, money, or any other property that is in my possession or is brought to me after admission. I understand certain valuables may be placed in a hospital safe for a short period of time. I understand that the hospital is not liable for loss or damage due to accident, fire, or other natural occurrence while said property is in the safe. I accept full responsibility for any personal property that I keep with me, and will not hold the hospital responsible in case of loss or disappearance. I acknowledge that i have been encouraged to send valuables and belongings home. ?? Review of Valuable and Belonging List: With patient, With witness Date for Pt to Sign Valuables/Belongings: 06/16/22 12:03:00 ?? Other Discharge Information Nutrition Discharge Status?? Nutrition Discharge Status?? Parenteral Nutrition: 165 mL ? Case Management Discharge Plan?? Discharge Plan?? Discharge Agency Information?? Discharge Level of Care at Discharge: Homehealth/VNA Name of Agency #1: [facility] Discharge Arranged Transport Date/Time: 06/15/22 14:00:00 Service Categories #1: Other: TPN/IV Discharge Medical Equipment Companies: [facility] Service Comments #1: resume ?? Pulmonary Rehab Status?? Pulmonary Rehab Discharge Status?? Respiratory Rate: 18 br/min Discharge Medical Equipment Companies: [facility] ? Common Emergency Awareness Tips IS IT A STROKE? Act FAST and Check for these signs: FACE Does the face look uneven? ARM Does one arm drift down? SPEECH Does their speech sound strange? TIME Call at any sign of stroke ?? Heart Attack Signs Chest discomfort: Most heart attacks involve discomfort in the center of the chest and lasts more than a few minutes, or goes away and comes back. It can feel like uncomfortable pressure, squeezing, fullness or pain. Discomfort in upper body: Symptoms can include pain or discomfort in one or both arms, back, neck, jaw or stomach. Shortness of breath: With or without discomfort. Other signs: Breaking out in a cold sweat, nausea, or lightheaded. Remember, MINUTES DO MATTER. If you experience any of these heart attack warning signs, call to get immediate medical attention! ?? Smoking can increase your chances of developing chronic health problems and can cause harmful effects to other family members in your house. If you smoke, you are strongly encouraged to quit. Please call [facility] at [phone] or [phone] ([phone]) or log in to [email or web address] for referrals to smoking cessation programs. ?? 223 Suicide & Crisis Lifeline is available 06/09 if you or someone you know needs to find a reason to keep living. By calling 303 you'll be connected to a skilled, trained counselor at a crisis center in your area. INPATIENT DISCHARGE INSTRUCTIONS SIGNATURE PAGE VILMA BROWN Location:[facility] Registration Date and Time:06/14/2022 19:04 EDT Primary Care Physician: Chaparrita Pizano DO, I VILMA BROWN, have received the above patient education materials/instructions and have verbalized understanding. If ambulance or transport services are being used I further acknowledge being given a choice of service. ?? If you need to contact me, please call me at this number: . Patient/Eastern Philosophy Professor Name: Patient/Eastern Philosophy Professor Signature: Relationship to Patient: Witness Name/Signature: Date: * Danielle Jones MD: PERFORM Event Display: Patient Education Leaflets Authored Date: [id number] Overactive Bladder Syndrome (OAB) ?? 88474 Overactive Bladder Syndrome (OAB) When the bladder muscles squeeze (contract) involuntarily, it's called overactive bladder syndrome (OAB). This causes an intense urge to pee, called urgency. Urgency can occur many times during the day and night. If urine leaks with the urgency, it is called urge incontinence. A disease that affects the bladder nerves, such as multiple sclerosis, can cause overactive bladdersyndrome. Other conditions can also lead to OAB. These include urinary tract infection (UTI) or prostate problems in men. But the exact cause is often not known. Normally, urine stays in the bladder until a person decides to release it. With OAB, the bladder muscles contract involuntarily, causing a sudden urge to urinate and even urine leakage. How is overactive bladder syndrome diagnosed? Your healthcare provider will examine you and ask about your symptoms and health history. You may also have 1 or more of these tests: ??? Urine test.??Urine samples are taken and checked for problems. ??? Urinary diary. You record how much fluid you take in and pee out for 3 days. ??? Bladder ultrasound.??This studies the bladder as it empties. Ultrasound uses sound waves to make detailed images of the inside of the body. ??? Cystoscopy.??This test lets the provider look for problems in the urinary tract. The test uses a thin, flexible scope (cystoscope) with a light and camera on the end. The scope is put into the tube that takes urine out of the body (urethra). ??? Urodynamic studies. This is a group of tests. They measure and record many aspects of urinary bladder function. This includes pressures, volume, and urine flow. ?? How is overactive bladder syndrome treated? Treatment depends on the cause and severity of your OAB. Treatments may include: ??? Changing your peeing habits.??Your healthcare provider may advise you to pee as soon as you feel the urge. You may also need to limit how much fluid you have during the day. ??? Exercising your pelvic muscles. This??can help strengthen muscles used when you pee. These exercises are called Kegels. They include caitlin as if you were stopping your urine stream. And tightening your rectum meir trying not to pass gas. Your provider can help you learn how to do Kegels. ??? Biofeedback. Thiscan help you learn to control the movement of your bladder muscles. Sensors are placed on your belly. They turn signals given off by your muscles into lines on a computer screen. ??? Medicine. This may be given to relax the bladder muscle. Medicine can also help ease bladder contractions. This reduces the urge to urinate. ??? Neuromodulation.??This may be done if medicine and behavioral changes don???t work. Electrical pulses are sent to the nerves that affect the pelvic area (sacral nerves). These pulses help relieve OAB and urge incontinence. ??? Botulinum toxin shots. These can be injectedinto the muscle of the bladder to relax the muscles. ??? Surgery. When less invasive treatments don't work, surgery??to make the bladder larger may be done in severe cases. With treatment, OAB can be managed. A condition, such as UTI, that has led to your OAB will be treated. Treatment may include taking medicine for months or years. You may also need to make changes inyour daily routine. This may include going to the bathroom more often than you think you need to. Or you may need to limit caffeine and alcohol because these can make symptoms worse. Your healthcare provider can tell you more. ?? When to call your healthcare provider Call the healthcare provider right away if you have any of these: ??? Fever of?? 100.4?? F??( 38.0??C ) or higher,??or as directed by your provider ??? Symptoms don't get better, or get worse with treatment ??? Trouble peeing because of pain ??? Back or belly pain ?? Last Reviewed Date: 2020 ?? [id number] [employer]. All rights reserved. This information is not intended as a substitute for professional medical care. Always follow your healthcare professional's instructions. ?? * Heena Rasmussen RN: SIGN, PERFORM, VERIFY Event Display: Case Management Discharge Plan Authored Date: Patient: VILMA BROWN Age: 46 years Sex: Female : 1975 Associated Diagnoses: None Author: Heena Rasmussen RN Discharge Plan Case Management Discharge Plan : Case Management Discharge Plan Data 06/15/2022 13:16 EDT Discharge Level of Care at Discharge Homehealth/VNA Discharge Medical Equipment [facility] Discharge Arranged Transport Date/Time 06/15/2022 14:00 Name of Agency #1 [facility] Service Categories #1 Other: TPN/IV Service Comments #[address] Abdomen and Pelvis W contrast IV * [facility] , CIS S: TRANSCRIBE Nighat Wiley DO: RADHA Alba MD, Catarina: VERIFY Event Display: Result: Authored Date: CT Abd/Pelvis W/ IV Contrast Only Hx of Present Illness: C o LLQ abdominal pain. Pt also has NVD. Onset was earlier today. History ofbowel obstruction. Was seen last week for similar pain. Has Polanco for blood draws. On TPN at home.; Reason: LLQ abdominal pain; Clinical Question(s): Diverticulitis; TECHNIQUE: Spiral CT through the abdomen and pelvis with IV contrast formatted in 3 planes. 100 cc of Omnipaque 300 was administered intravenously. This study was performed without oral contrast. Weight-based protocol using automatic tube modulation was used to optimize exposure parameters. CTDIvol Body: 30.40 mGy, DLP Body: 1640 mGy*cm. COMPARISON: Multiple priors most recently 06/07/2022 FINDINGS: Director Critical Care View Findings, Lines and Tubes: None. Visualized Chest: Lung bases are clear. No pleural effusion. The heart is normal in size. No pericardial effusion. Diaphragm: Tiny hiatal hernia Liver: Focal fatty deposition along the falciform ligament. More diffuse fatty infiltration also present. Gallbladder: Absent consistent with prior cholecystectomy. Bile ducts: No biliary ductal dilation. Spleen: Upper limits of normal size to mildly enlarged. Pancreas: Normal. Adrenal glands: Normal. Kidneys and ureters: No hydronephrosis, stones, or suspicious masses. Bladder: Under distended but unremarkable Reproductive organs: Status post hysterectomy. No adnexal masses. Stomach, small bowel, and large bowel: No evidence of obstruction or inflammation. Appendix: Normal. Peritoneum and retroperitoneum: No ascites or pneumoperitoneum. No omental or mesenteric lesions. Lymph nodes: No enlarged lymph nodes. Blood vessels: Mild vascular calcifications but no aneurysm. No evidence of venous thrombosis. Incidental note of chronic vasculature calcifications along the right ovarian vein. The right ovarian vein is asymmetrically greater than the left, calcifications support chronicity and these findings can relate to prior thrombus or inflammation of the vein. Abdominal and pelvic wall: Evidence of prior ventral wall hernia repair. Anterior positioning of several bowel loops, at the level of the hernia, can be seen with likely underlying adhesions. Atrophy of the right lower rectus musculature with asymmetric thickening on the left, series 201 image 123 which can relate to granulation tissue or remote hematoma. Bones: No acute abnormality. Moderate disc degenerative changes at L5-S1. IMPRESSION: No acute process. No bowel obstruction. Unchanged chronic findings compared to previous exam 06/07/2022. I have personally reviewed the images and I agree with this report. WSN: [id number] Ordering Physician: Stef Salgado Dictated By: Nighat Wiley DO Dictated Date/Time: 06/15/22 7:39 am Reviewed By: Catarina Alba MD Signed By: Catarina Alba MD Signed Date/Time: 06/15/22 7:44 am Transcribed By: DEIDRE Transcribed Date/Time: 06/15/22 1:18 am Patient Care team information Care Team Personnel Name: Lola Belcher RN Position: S RN Member Role: Primary Care Nurse Name: Jose Enrique Saul RN Position: [facility] RN Member Role: Primary Care Nurse Name: Symone Mckinnon RN Position: [facility] RN Member Role: Primary Care Nurse Name: Carolyn Pelaez RN Position: [facility] RN Member Role: Primary Care Nurse Name: Fanny Mixon RN Position: [facility] ED RN W/OE and Tasks Member Role: Primary Care Nurse Name: María Ashford RN Position: [facility] AMB Nurse Member Role: Primary Care Nurse Name: Chanelle Hernandez RN Position: [facility] AMB Nurse Member Role: Primary Care Nurse Name: Estelle García RN Position: [facility] RN Member Role: Primary Care Nurse Name: Deanne Rangel RN Position: [facility] RN Member Role: Primary Care Nurse Name: Carine Jimenez RN Position: [facility] SN RN Member Role: Primary Care Nurse Name: Jenelle Campo RN Position: [facility] RN Member Role: Primary Care Nurse Name: Keyla Godwin RN Position: [facility] RN Member Role: Primary Care Nurse Name: Yeimi Devine RN Position: [facility] RN Member Role: Primary Care Nurse Name: Mary Yan RN Position: [facility] RN Member Role: Primary Care Nurse Name: Iliana Pop RN Position: [facility] RN Member Role: Primary Care Nurse Name: Clovis Wang RN Position: [facility] RN Member Role: Primary Care Nurse Name: Alcides Dueñas RN Position: [facility] RN Member Role: Primary Care Nurse Name: Lisa Beatty Position: [facility] Outreach Member Role: Lifetime Consulting Physician Name: Armida Beatty RN Position: [facility] RN Member Role: Primary Care Nurse Name: Deonna Beatty RN Position: [facility] RN Member Role: Primary Care Nurse Name: Roque Villasenor MD Position: [facility] Renal MD Member Role: Lifetime Consulting Physician Address: Address: [address] [place] [address], [address] [facility] [address] Name: Lashon Lovell RN Position: [facility] SN RN Member Role: Primary Care Nurse Name: Kristi Giraldo RN Position: [facility] RN Supv Member Role: Primary Care Nurse Name: Jerrod Casarez RN Position: [facility] RN Member Role: Primary Care Nurse Name: Shane Riley RN Position: [facility] RN Member Role: Primary Care Nurse Name: Isac Plascencia RN Position: [facility] RN Member Role: Primary Care Nurse Name: Rosalva Martin RN Position: [facility] RN Member Role: Primary Care Nurse Name: Sheela Matt RN Position: [facility] RN Member Role: Primary Care Nurse Name: Armida Ochoa RN Position: [facility] RN Member Role: Primary Care Nurse Name: Felipa Diehl RN Position: [facility] HBO Wound Member Role: Primary Care Nurse Name: Evelin Powell RN Position: [facility] AMB Nurse Member Role: Primary Care Nurse Name: Donald Murphy MD Position: [facility] Renal MD Member Role: Lifetime Consulting Physician Address: Address: [address] [place], [place] [address] [place] [address]- Name: Deonna Pendleton RN Position: [facility] RN Member Role: Primary Care Nurse Name: Pili Kaba RN Position: [facility] RN Member Role: Primary Care Nurse Name: Alejandro Yanes RN Position: [facility] RN Member Role: Primary Care Nurse Name: Stacey Díaz RN Position: [facility] SN RN Member Role: Primary Care Nurse Name: Jac Reese RN Position: [facility] RN Member Role: Primary Care Nurse Name: Erica Maya Position: [facility] TA Member Role: Lifetime Consulting Physician Name: Celestine Schwartz RN Position: [facility] RN Member Role: Primary Care Nurse Name: Neeta Carpenter RN Position: [facility] RN Member Role: Primary Care Nurse Name: Susie Estrada RN Position: [facility] RN Member Role: Primary Care Nurse Name: Inna Cantor RN Position: [facility] RN Member Role: Primary Care Nurse Name: Chaparrita Pizano DO Position: [facility] Physician (General Medicine) Member Role: PCP Address: Address: [address] [place] [address] [place] [address]- Name: Ning Rolon RN Position: [facility] RN Member Role: Primary Care Nurse Name: Rubi Carrasco RN Position: [facility] SN RN Member Role: Primary Care Nurse Name: Lauryn Holden RN Position: [facility] RN Member Role: Primary Care Nurse Name: Jones Cervantes RN Position: [facility] RN Member Role: Primary Care Nurse Name: Olivia Caputo RN Position: [facility] RN Member Role: Primary Care Nurse Name: Brooklyn Jim RN Position: [facility] RN Member Role: Primary Care Nurse Name: Kimberly Santoro RN Position: [facility] RN Member Role: Primary Care Nurse Name: Haley Diamond RN Position: [facility] RN Member Role: Primary Care Nurse Name: Ashley Meléndez NP Position: [facility] PCO Associate Professional Member Role: Primary Care Nurse Address: Address: [address] [place] [address] [facility] [place], [place] [address] Name: Siomara Patricia RN Position: [facility] PCO RN Member Role: Primary Care Nurse Name: Neeta Painter RN Position: [facility] [facility] RN Member Role: Primary Care Nurse Name: Bailey Espinal RN Position: [facility] AMB Nurse Member Role: Primary Care Nurse Name: Brooklyn Ramsey RN Position: [facility] RN Member Role: Primary Care Nurse Name: Keyla Bright RN Position: [facility] RN Member Role: Primary Care Nurse Name: Lesli Corcoran RN Position: [facility] RN Member Role: Primary Care Nurse Name: Beverley Tatum RN Position: [facility] RN Member Role: Primary Care Nurse Name: aMinor Devries RN Position: [facility] RN Member Role: Primary Care Nurse Name: Yarely Richards RN Position: [facility] Display Department Manager Member Role: Primary Care Nurse Name: Oralia Massey RN Position: [facility] RN Member Role: Primary Care Nurse Name: Cassie Villanueva RN Position: [facility] RN Member Role: Primary Care Nurse Name: Taiwo Mcgregor RN Position: [facility] RN Member Role: Primary Care Nurse Name: Cally Funes RN Position: [facility] SN RN Member Role: Primary Care Nurse Name: Lisa Blanton RN Position: [facility] Display Department Manager Member Role: Primary Care Nurse Name: Joel Blanton RN Position: [facility] RN Member Role: Primary Care Nurse Name: Danica Stuart RN Position: [facility] AMB Nurse Member Role: Primary Care Nurse Name: Virginia Bacon RN Position: [facility] RN Member Role: Primary Care Nurse Name: Shruthi Ray RN Position: [facility] Onco RN Member Role: Primary Care Nurse Name: Abbe Choe RN Position: [facility] RN Supv Member Role: Primary Care Nurse Name: Farideh Cat LPN Position: [facility] RN Member Role: Primary Care Nurse Name: Janis Morris RN Position: [facility] Hospital Display Department Manager Member Role: Primary Care Nurse Name: Darrian Chang RN Position: [facility] Display Department Manager Member Role: Primary Care Nurse Name: Josef Woods RN Position: [facility] RN Member Role: Primary Care Nurse Name: Siomara Raphael RN Position: [facility] RN Member Role: Primary Care Nurse Name: Jerry Mcneill RN Position: [facility] RN Member Role: Primary Care Nurse Name: Carol Caputo RN Position: [facility] ED RN W/OE and Tasks Member Role: Patient Care Provider Name: Stef Cruz Position: [facility] Associate Professional Member Role: ED Physician Driver Manager Address: Address: [address] [place] [id number] Name: Farideh Lou MD Position: [facility] ED Medicine MD Member Role: ED Attending Physician Address: Address: [address] [place] [id number] Name: Luna Hilario Position: [facility] ED TA [facility] Member Role: Patient Care Provider Care Team Related Persons Name: CHERELLEKENNEY CACERESINDA Address: [place] [address] Name: REYNALDO KAUR Address: home [address] [place] [address] Name: EMMA BROWN Address: home [address] [address] Name: PATRICK MATA Address: home [address] [place] [address] Name: FARIDEH POPE Address: [place] [address]
--- OUTSIDE RECORDS SUMMARY | 2022-08-31 01:02 | XMS_ITS | Continuity of Care Document ---
Author Name Unknown Organization [facility] ARTS ADMINISTRATOR OR MANAGER Oncolog y Address [address] [place] [address]- Care Team Providers Care Silver Miner Blasting Name Role Phone JericaChaparrita apple DO Primary Care Physician [facility]counter [facility] Date(s): 05/30/20 - 06/29/20 [facility] ARTS ADMINISTRATOR OR MANAGER Oncology [address] [place], [place] [address] Allergies, Adverse Reactions, Alerts Substance Reaction Severity [...] 1 02/02/07 Given 1Admin Note: manufactured by [employer] Medications albuterol 0.042% inhalation solution 3 [...] Refills, Soft Stop, 06/23/20 10:08:00 EDT, Tablet, [facility]/pharmacy #[id number], Partial fill upon patient request if [...] 0 Refills, Soft Stop, 04/09/20 13:16:00 EST, [facility], Partial fill upon patient [...] 0 Refills, Maintenance, 04/02/20 9:29:00 EST, Tablet, [facility], Partial fill upon patient request if the prescription is for a schedule II opioid drug., 154.94, cm, 0... Start Date: 04/02/20 Status: Ordered oxyCODONE 10 mg oral tablet See Instructions, 1 tablet By Mouth 5 times per day for 7 days, per pain services recommedations, #35 tablet, 0 Refills, Maintenance, 06/20/20 8:49:00 EDT, Tablet, [facility]/pharmacy #[id number], Partial fill upon patient request if [...] 08/30/17 8:21:42 EDT, Route to Pharmacy Electronically, [id number], [facility]/pharmacy #[id number] Start Date: 08/30/17 Status: Ordered Tums 500 mg oral tablet, chewable 500 mg, 1, tablet, Chew, Every 4 hours, PRN, # 180 tablet, Refills 0, Tot. Refills 0, Maintenance, Dyspepsia, 06/21/18 11:05:15 EDT, Route to Pharmacy Electronically, [id number], [facility] Start Date: 06/21/18 Status: [...] WITH PRO LONGED DEPRESSIVE REACTION(Confirmed) 02/03/07 Active [facility] Emeral d Team Senior Level [...]
--- OUTSIDE RECORDS SUMMARY | 2022-08-31 01:02 | XMS_ITS | Continuity of Care Document ---
Author Name Unknown Organization [facility] GEARCASE ASSEMBLER Oncolog y Address [address] [place] [address]- Care Team Providers Care Spooler Name Role Phone Chaparrita Pizano DO Primary Care Physician [facility]counter [facility] Date(s): 02/19/20 - 03/20/20 [facility] GEARCASE ASSEMBLER Oncology [address] [place], [place] [address] Allergies, Adverse Reactions, Alerts Substance Reaction [...] 1 02/02/07 Given 1Admin Note: manufactured by [employer] Medications albuterol CFC free 90 mcg/inh [...] 05/05/18 9:38:51 EDT, Route to Pharmacy Electronically, [id number]... Start Date: 05/05/18 Status: Ordered Insulin Glargine [...] 03/04/20 8:13:00 EST, Route to Pharmacy Electronically, [facility]/pharmacy #[id number], Partial fill upon patient request, 155, [...] 08/30/17 8:21:42 EDT, Route to Pharmacy Electronically, [id number], [facility]/pharmacy #[id number] Start Date: 08/30/17 Status: Ordered tiZANidine [...] 06/21/18 11:05:15 EDT, Route to Pharmacy Electronically, [id number], [facility] Start Date: 06/21/18 Status: Ordered Vitamin [...] WITH PRO LONGED DEPRESSIVE REACTION(Confirmed) 02/03/07 Active [facility] Emeral d Team Senior Level [...]
--- OUTSIDE RECORDS SUMMARY | 2022-08-31 01:02 | XMS_ITS | Continuity of Care Document ---
Author Name Unknown Organization [facility] DIRECTOR OF STATE Oncolog y Address [address] [place] [address]- Care Team Providers Care Lay Brother Name Role Phone Chaparrita Pizano DO Primary Care Physician En[place] [facility] [place]s): 03/04/20 - 04/03/20 [facility] DIRECTOR OF STATE Oncology [address] [place], [place] [address] Allergies, Adverse Reactions, Alerts Substance Reaction [...] 1 02/02/07 Given 1Admin Note: manufactured by [employer]or[employer]i Pasteur Medications albuterol CFC free 90 mcg/inh [...] Acute05/02/20 9:28:00 EDT, 04/02/20 9:28:00 EST, Tablet, [facility], Partial fill upon patient [...] Acute 04/30/20 0:00:00 EDT,04/02/20 9:27:00 EST, Tablet, [facility], Partial fill upon patient [...] 04/16/20 9:28:00 EST, 04/02/20 9:28:00 EST, Injection, [facility], Partial fill upon [...] 05/05/18 9:38:51 EDT, Route to Pharmacy Electronically, [id number]... Start Date: 05/05/18 Status: Ordered insulin glargine 100 units/mL subcutaneous solution = 25 units, Subcutaneous Injection, Daily at bedtime, # 12 mL, 0 Refills, Maintenance, 04/03/20 13:23:00 EST, Solution, [facility]/pharmacy #[id number], Partial fill upon [...] Refills, Maintenance, 04/02/20 9:29:00 EST, Tablet, [facility], Partial fill upon patient [...] 04/30/20 0:00:00 EDT, 04/02/20 10:07:00 EST, Tablet, [facility], Partial fill upon patient request if the prescription is for a schedule II... Start Date: 04/02/20 Stop Date: 04/30/20 Status: Ordered oxyCODONE 5 mg oral tablet 10 mg, 2, tablet, By Mouth, Every 6 hours, PRN, # 120 tablet, Refills 0, Tot. Refills 0, Maintenance, for pain, 03/04/20 8:13:00 EST, Route to Pharmacy Electronically, [facility]/pharmacy #[id number], Partial fill upon patient request, 155, cm, 08/20/19 16:31:00 E... Start Date: 03/04/20 Status: Ordered OxyCONTIN 10 mg oral tablet, extended release 10 mg, 1, tablet, By Mouth, Every 12 hours, # 60 tablet, Refills 0, Tot. Refills 0, Maintenance, 04/02/20 9:32:00 EST, Route to Pharmacy Electronically, [facility], Partial fill upon patient [...] Acute 04/30/20 0:00:00 EDT, 04/02/20 9:33:00 EST, [facility], Partial fill upon patient [...] 08/30/17 8:21:42 EDT, Route to Pharmacy Electronically, [id number], [facility]/pharmacy #[id number] Start Date: 08/30/17 Status: Ordered Tums 500 mg oral tablet, chewable 500 mg, 1, tablet, Chew, Every 4 hours, PRN, # 180 tablet, Refills 0, Tot. Refills 0, Maintenance, Dyspepsia, 06/21/18 11:05:15 EDT, Route to Pharmacy Electronically, [id number], [facility] Start Date: 06/21/18 Status: [...] WITH PRO LONGED DEPRESSIVE REACTION(Confirmed) 02/03/07 Active [facility] Emeral d Team Senior Level [...]
--- OUTSIDE RECORDS SUMMARY | 2022-08-31 01:02 | XMS_ITS | Continuity of Care Document ---
Author Name Unknown Organization [facility] Address [address] [place] [address]- Care Team Providers Care Buffing Wheel Inspector Name Role Phone Chaparrita Pizano DO Primary Care Physician ( [phone] [place] [facility] Date[place]s): 06/25/21 - 08/28/[address] [address]- Attending Physician: Delfina Fitch DO Admitting Physician: Delfina Fitch DO Referring Physician: Delfina Fitch DO Allergies, Adverse Reactions, Alerts Substance Reaction [...] to receive vaccine 2Admin Note: manufactured by [employer] P[employer] Medications albuterol 0.042% inhalation solution 3 [...] 13:21:00 EDT, 08/31/20 13:21:00 EDT, Tablet, [facility]/pharmacy #[id number], Partial fill upon patient request... Start Date: [...] 13:22:00 EDT, 08/31/20 13:21:00 EDT, Syrup, [facility]/pharmacy #[id number], Partial [...] 0 Refills, Maintenance, 04/02/20 9:29:00 EST, Tablet, [facility], Partial fill upon patient [...] Refills, Soft Stop, 06/26/21 7:59:00 EDT, Tablet, [facility]/pharmacy #[id number], Partial fill upon [...] 08/30/17 8:21:42 EDT, Route to Pharmacy Electronically, [id number], [facility]/pharmacy #[id number] Start Date: 08/30/17 Status: Ordered Tums 500 mg oral tablet, chewable 500 mg, 1, tablet, Chew, Every 4 hours, PRN, # 180 tablet, Refills 0, Tot. Refills 0, Maintenance, Dyspepsia, 06/21/18 11:05:15 EDT, Route to Pharmacy Electronically, [id number], [facility] Start Date: 06/21/18 Status: Ordered [...] WITH PRO LONGED DEPRESSIVE REACTION(Confirmed) 02/03/07 Active [facility] Emeral d Team Senior Level [...]
--- OUTSIDE RECORDS SUMMARY | 2022-08-31 01:02 | XMS_ITS | Continuity of Care Document ---
Author Name Unknown Organization [facility] Address [address] [place] [address]- Care Team Providers Care Practice Specialist Name Role Phone Chaparrita Pizano DO Primary Care Physician En[place] [facility] Date(s): 09/17/20 - 11/20/20 [facility] [address] [place] [address]- Attending Physician: Piter Cam MD Admitting Physician: Tutu SHERIFF, Piter Referring Physician: Chaparrita Pizano DO Allergies, Adverse Reactions, Alerts Substance Reaction Severity Status doxycycline mouth swelling Active ceftriaxone hives Active Zofran 1 can only be given w/ benadryl hives Active Pepcid vomitng Active penicillin throat swelling Rash Persistent Severe Active famotidine vomiting Active morphine 2, 3, 4 hives Active iodine topical swelling itching Active Levaquin tingling in mouth, rash Acti ve Adhesive Bandage skin excoriation hives Active Contrast Dye hives itchy throat itchy Persistent Mild Active Nexium diarrhea, vomitting Active Compazine shortness of breath Active Tylenol hives Active Reglan severe restless legs Active Latex [...] to receive vaccine 2Admin Note: manufactured by [employer] Pasteur Medications albuterol 0.042% inhalation solution 3 [...] 08/31/20 13:21:00 EDT, Tablet, [facility]/pharmacy #[id number], Partial fill upon patient request... Start Date: [...] 0 Refills, Maintenance, 04/02/20 9:29:00 EST, Tablet, [facility], Partial fill upon patient [...] tablet, 1 Refills, Maintenance, 08/31/20 13:22:00 EDT, [facility]/pharmacy #[id number], Partial fill upon [...] 08/30/17 8:21:42 EDT, Route to Pharmacy Electronically, [id number], [facility]/pharmacy #[id number] Start Date: 08/30/17 Status: Ordered Tums 500 mg oral tablet, chewable 500 mg, 1, tablet, Chew, Every 4 hours, PRN, # 180 tablet, Refills 0, Tot. Refills 0, Maintenance, Dyspepsia, 06/21/18 11:05:15 EDT, Route to Pharmacy Electronically, [id number], [facility] Start Date: 06/21/18 Status: [...] WITH PRO LONGED DEPRESSIVE REACTION(Confirmed) 02/03/07 Active [facility] Emeral d Team Senior Level Patient(Confirmed) [...]
--- OUTSIDE RECORDS SUMMARY | 2022-08-31 01:02 | XMS_ITS | Continuity of Care Document ---
Author Name Unknown Organization [facility] ter Address [address] [place] [address]- Care Team Providers Care Purchase Analyst Name Role Phone Chaparrita Pizano DO Primary Care Physician [facility]counter [facility] Date(s): 11/19/19 - 04/04/[address] [address] Attending Physician: Chaparrita Pizano DO Admitting Physician: Chaparrita Pizano DO Referring Physician: Chaparrita Pizano DO Allergies, Adverse [...] Acute05/02/20 9:28:00 EDT, 04/02/20 9:28:00 EST, Tablet, [facility], Partial fill [...] Pain Start Date: 04/04/20 Status: Ordered diphenhydrAMINE 50 mg oral tablet [...] 04/16/20 9:28:00 EST, 04/02/20 9:28:00 EST, Injection, [facility], Partial fill upon patient [...] 05/05/18 9:38:51 EDT, Route to Pharmacy Electronically, [id number]... Start Date: 05/05/18 Status: Ordered insulin glargine 100 units/mL subcutaneous solution = 25 units, Subcutaneous Injection, Daily at bedtime, # 12 mL, 0 Refills, Maintenance, 04/03/20 13:23:00 EST, Solution, [facility]/pharmacy #[id number], Partial fill upon patient request if the prescription is for a schedule II opioid drug., 154.94, cm, 04/03/20 1... Start Date: 04/03/20 Status: Ordered losartan 50 mg oral tablet 50 mg, 1, tablet, By Mouth, Daily in AM, # 30 tablet, Refills 0, Maintenance, 10/04/18 9:33:08 EDT Start Date: 10/04/18 Status: Ordered NovoLOG FlexPen 100 units/mL subcutaneous [...] 0 Refills, Maintenance, 04/02/20 9:29:00 EST, Tablet, [facility], Partial fill [...] 04/30/20 0:00:00 EDT, 04/02/20 10:07:00 EST, Tablet, [facility], Partial fill upon patient request if the prescription is for a schedule II... Start Date: 04/02/20 Stop Date: 04/30/20 Status: Ordered OxyCONTIN 10 mg oral tablet, extended release 10 mg, 1, tablet, By Mouth, Every 12 hours, # 60 tablet, Refills 0, Tot. Refills 0, Maintenance, 04/02/20 9:32:00 EST, Route to Pharmacy Electronically, [facility], Partial fill [...] Acute 04/30/20 0:00:00 EDT, 04/02/20 9:33:00 EST, [facility], Partial fill upon patient [...] 08/30/17 8:21:42 EDT, Route to Pharmacy Electronically, [id number], [facility]/pharmacy #[id number] Start Date: 08/30/17 Status: Ordered Tums 500 mg oral tablet, chewable 500 mg, 1, tablet, Chew, Every 4 hours, PRN, # 180 tablet, Refills 0, Tot. Refills 0, Maintenance, Dyspepsia, 06/21/18 11:05:15 EDT, Route to Pharmacy Electronically, [id number], [facility] Start Date: [...]
--- OUTSIDE RECORDS SUMMARY | 2022-08-31 01:02 | XMS_ITS | Continuity of Care Document ---
Author Name Unknown Organization [facility] Address [address] [place] [address]- Care Team Providers Care Inside Sales Agent Name Role Phone Chaparrita Pizano DO Primary Care Physician ( [phone] [place] [facility] [place] 08[place]/20 [facility] [address] [place] [address] Attending Physician: Samuel MARES, Celine Referring Physician: Chaparrita Pizano DO Allergies, Adverse [...] to receive vaccine 2Admin Note: manufactured by [employer] P[employer] Medications albuterol 0.042% inhalation solution 3 [...] 0 Refills, Soft Stop, 04/09/20 13:16:00 EST, [facility], Partial fill upon patient request [...] 08/14/20 14:34:00 EDT, 07/31/20 14:34:00 EDT, Tablet, [facility], Partialfill upon patient request if the prescription is for a... Start Date: 07/31/20 Stop Date: 08/14/20 Status: Ordered ondansetron 4 mg oral tablet, disintegrating = 4 mg, By Mouth, Every 6 hours, PRN Nausea & Vomiting, # 90 tablet, 0 Refills, Maintenance, 04/02/20 9:29:00 EST, Tablet, [facility], Partial fill upon patient request [...] 08/30/17 8:21:42 EDT, Route to Pharmacy Electronically, [id number], [facility]/pharmacy #[id number] Start Date: 08/30/17 Status: Ordered Tums 500 mg oral tablet, chewable 500 mg, 1, tablet, Chew, Every 4 hours, PRN, # 180 tablet, Refills 0, Tot. Refills 0, Maintenance, Dyspepsia, 06/21/18 11:05:15 EDT, Route to Pharmacy Electronically, [id number], [facility] Start Date: 06/21/18 Status: Ordered [...] WITH PRO LONGED DEPRESSIVE REACTION(Confirmed) 02/03/[address] [facility] Emeral d Team Senior Level Patient(Confirmed) [...]
--- OUTSIDE RECORDS SUMMARY | 2022-08-31 01:02 | XMS_ITS | Continuity of Care Document ---
Author Name Unknown Organization [facility] GROUND SURVEILLANCE SYSTEMS OPERATOR Oncolog y Address [address] [place] [address]- Care Team Providers Care Information Assurance Engineer Name Role Phone JericaChaparrita apple DO Primary Care Physician [place] [facility] [place] 07/[place]20 [facility] GROUND SURVEILLANCE SYSTEMS OPERATOR Oncology [address] [place], [place] [address] Allergies, Adverse Reactions, Alerts Substance [...] vomitting Active Nicotine Patch ana cardia Active morphine 1, 2, 3 hives Active Zofran 4 can only be given w/ benadryl hives Active Lyrica Angioedema Active Lantiseptic Skin Protectant [...] 1 02/02/07 Given 1Admin Note: manufactured by [employer]ur Medications albuterol 0.042% inhalation solution 3 [...] Refills, Soft Stop, 06/23/20 10:08:00 EDT, Tablet, [facility]/pharmacy #[id number], Partial fill upon patient request if the prescription is for a schedule II opioid d... Start Date: 06/23/20 Status: Ordered insulin glargine 100 units/mL subcutaneous solution = 25 units, Subcutaneous Injection, Daily at bedtime, # 12 mL, 0 Refills, Maintenance, 04/03/20 13:23:00 EST, Solution, [facility]/pharmacy #[id number], Partial fill upon patient request [...] 0 Refills, Soft Stop, 04/09/20 13:16:00 EST, [facility], Partial fill upon patient [...] 0 Refills, Maintenance, 04/02/20 9:29:00 EST, Tablet, [facility], Partial fill upon patient request if the prescription is for a schedule II opioid drug., 154.94, cm, 0... Start Date: 04/02/20 Status: Ordered oxyCODONE 10 mg oral tablet See Instructions, 1 tablet By Mouth 5 times per day for 7 days, per pain services recommedations, #35 tablet, 0 Refills, Maintenance, 06/20/20 8:49:00 EDT, Tablet, [facility]/pharmacy #[id number], Partial fill upon patient request [...] 08/30/17 8:21:42 EDT, Route to Pharmacy Electronically, [id number], [facility]/pharmacy #[id number] Start Date: 08/30/17 Status: Ordered Tums 500 mg oral tablet, chewable 500 mg, 1, tablet, Chew, Every 4 hours, PRN, # 180 tablet, Refills 0, Tot. Refills 0, Maintenance, Dyspepsia, 06/21/18 11:05:15 EDT, Route to Pharmacy Electronically, [id number], [facility] 3 Start Date: 06/21/18 Status: Ordered Vitamin [...] WITH PRO LONGED DEPRESSIVE REACTION(Confirmed) 02/03/07 Active [facility] Emeral d Team Senior Level [...]
--- OUTSIDE RECORDS SUMMARY | 2022-08-31 01:02 | XMS_ITS | Continuity of Care Document ---
Author Name Unknown Organization [facility] Address [address] [place] [address]- Care Team Providers Care Health Informatics Instructor Name Role Phone Chaparrita Pizano DO Primary Care Physician [id number] Date(s): 05/17/22 - 07/01/22 [facility] [address] [place] [address]- Attending Physician: Antwan Melo MD Admitting Physician: Antwan Melo MD Referring Physician: Chaparrita Pizano DO Allergies, [...] to receive vaccine 2Admin Note: manufactured by [employer] Medications albuterol CFC free 90 mcg/inh inhalation [...] 03/12/22 12:08:00 EST, Route to Pharmacy Electronically, [facility] [facility], Partial fill upon patient request if the prescr... Start Date: 03/12/22 Stop Date: 04/11/22 Status: Ordered diazepam 5 mg oral tablet 5 mg, 1, tablet, By Mouth, 2 times a day, Refills 0, Maintenance, 06/15/22 6:50:00 EDT, Partial fill upon patient request if the prescription is for a schedule II opioid drug. Start Date: 06/15/22 Status: Ordered Ensure High Protein Ensure High Protein, 113, [...] 03/09/23 23:00:00 EST, 03/12/22 12:10:00 EST, Patch, [facility], Partial fill upon patient [...] tablet, 0 Refills, Maintenance, 04/02/20 9:29:00 EST, [facility], Partial fill upon patient request if the prescription is for a schedule II opioid drug., 154.94, cm, 04/02/20 8... Start Date: 04/02/20 Status: Ordered oxybutynin 5 mg/5 mL oral syrup 5 mL = 5 mg, By Mouth, 3 times a day, for bladder spasm, # 450 mL, 0 Refills, Maintenance, 06/16/2310:29:00 EDT, Syrup, [facility]/pharmacy #[id number], Partial fill upon patient request if [...] 03/12/22 12:06:00 EST, Route to Pharmacy Electronically, [facility] 3, Partial fill uponpatient request if [...] 06/21/18 11:05:15 EDT, Route to Pharmacy Electronically, [id number], [facility] 3 Start Date: 06/21/18 Status: [...] WITH PROLONGED DEPRESSIVE REACTION Confirmed 02/03/07 Active [facility] Roy Team Senior Level Patient Confirmed Active [facility] [...] Team Personnel Name: Lola Belcher RN Position: [facility] RN Member Role: Primary Care Nurse Name: Jose Enrique Saul RN Position: [facility] RN Member Role: Primary Care Nurse Name: Symone Mckinnon RN Position: [facility] RN Member Role: Primary Care Nurse Name: Carolyn Pelaez RN Position: [facility] RN Member Role: Primary Care Nurse Name: Fanny Mixon RN Position: [facility] ED RN W/OE and Tasks Member Role: Primary Care Nurse Name: María Ashford RN Position: [facility] AMB Nurse Member Role: Primary Care Nurse Name: Chanelle Hernandez RN Position: [facility] AMB Nurse Member Role: Primary Care Nurse Name: Estelle García RN Position: [facility] RN Member Role: Primary Care Nurse Name: Deanne Rangel RN Position: [facility] RN Member Role: Primary Care Nurse Name: Carine Jimenez RN Position: [facility] SN RN Member Role: Primary Care Nurse Name: Jenelle Campo RN Position: [facility] RN Member Role: Primary Care Nurse Name: Keyla Godwin RN Position: [facility] RN Member Role: Primary Care Nurse Name: Yeimi Devine RN Position: [facility] RN Member Role: Primary Care Nurse Name: Mary Yan RN Position: [facility] RN Member Role: Primary Care Nurse Name: Iliana Pop RN Position: [facility] RN Member Role: Primary Care Nurse Name: Clovis Wang RN Position: [facility] RN Member Role: Primary Care Nurse Name: Alcides Dueñas RN Position: [facility] RN Member Role: Primary Care Nurse Name: Lisa Beatty Position: [facility] Outreach Member Role: Lifetime Consulting Physician Name: Armida Beatty RN Position: [facility] RN Member Role: Primary Care Nurse Name: Deonna Beatty RN Position: [facility] RN Member Role: Primary Care Nurse Name: Roque Villasenor MD Position: [facility] Renal MD Member Role: Lifetime Consulting Physician Address: Address: [address] [place] [address], [address] [facility] [place] [address]- Name: Lashon Lovell RN Position: [facility] SN RN Member Role: Primary Care Nurse Name: Kristi Giraldo RN Position: [facility] RN Supv Member Role: Primary Care Nurse Name: Jerrod Casarez RN Position: [facility] RN Member Role: Primary Care Nurse Name: Shane Riley RN Position: [facility] RN Member Role: Primary Care Nurse Name: Isac Plascencia RN Position: [facility] RN Member Role: Primary Care Nurse Name: Rosalva Martin RN Position: [facility] RN Member Role: Primary Care Nurse Name: Sheela Matt RN Position: [facility] RN Member Role: Primary Care Nurse Name: Armida Ochoa RN Position: [facility] RN Member Role: Primary Care Nurse Name: Felipa Diehl RN Position: [facility] HBO Wound Member Role: Primary Care Nurse Name: Evelin Powell RN Position: [facility] AMB Nurse Member Role: Primary Care Nurse Name: Donald Murphy MD Position: [facility] Renal MD Member Role: Lifetime Consulting Physician Address: Address: [address] [place] [address] [address] [facility] [place] [place] [address]- Name: Deonna Pendleton RN Position: [facility] RN Member Role: Primary Care Nurse Name: Pili Kaba RN Position: [facility] RN Member Role: Primary Care Nurse Name: Alejandro Yanes RN Position: [facility] RN Member Role: Primary Care Nurse Name: Stacey Díaz RN Position: [facility] SN RN Member Role: Primary Care Nurse Name: Jac Reese RN Position: [facility] RN Member Role: Primary Care Nurse Name: Erica Maya Position: [facility] TA Member Role: Lifetime Consulting Physician Name: Celestine Schwartz RN Position: [facility] RN Member Role: Primary Care Nurse Name: Neeat Carpenter RN Position: [facility] RN Member Role: Primary Care Nurse Name: Susie Estrada RN Position: [facility] RN Member Role: Primary Care Nurse Name: Inna Cantor RN Position: [facility] RN Member Role: Primary Care Nurse Name: Jerica Chaparrita DO Position: [facility] Physician (General Medicine) Member Role: PCP Address: Address: [address] [place] [address]- Name: Ning Rolon RN Position: [facility] RN Member Role: Primary Care Nurse Name: Rubi Carrasco RN Position: [facility] SN RN Member Role: Primary Care Nurse Name: Lauryn Holden RN Position: [facility] RN Member Role: Primary Care Nurse Name: Jones Cervantes RN Position: [facility] RN Member Role: Primary Care Nurse Name: Olivia Caputo RN Position: [facility] RN Member Role: Primary Care Nurse Name: Brooklyn Jim RN Position: [facility] RN Member Role: Primary Care Nurse Name: Kimberly Santoro RN Position: [facility] RN Member Role: Primary Care Nurse Name: Haley Diamond RN Position: [facility] RN Member Role: Primary Care Nurse Name: Ashley Meléndez NP Position: [facility] PCO Associate Professional Member Role: Primary Care Nurse Address: Address: [address] [place] [address]- Name: Siomara Patricia [facility] RN Member Role: Primary Care Nurse Name: Neeta Painter RN Position: [facility] RN Member Role: Primary Care Nurse Name: Bailey Espinal RN Position: [facility] AMB Nurse Member Role: Primary Care Nurse Name: Brooklyn Ramsey RN Position: [facility] RN Member Role: Primary Care Nurse Name: Keyla Bright RN Position: [facility] RN Member Role: Primary Care Nurse Name: Lesli Corcoran RN Position: [facility] RN Member Role: Primary Care Nurse Name: Beverley Tatum RN Position: [facility] RN Member Role: Primary Care Nurse Name: Mainor Devries RN Position: [facility] RN Member Role: Primary Care Nurse Name: Yarely Richards RN Position: [facility] Hospital Director Commercial Sales Member Role: Primary Care Nurse Name: Oralia Massey RN Position: [facility] RN Member Role: Primary Care Nurse Name: Cassie Villanueva RN Position: [facility] RN Member Role: Primary Care Nurse Name: Taiwo Mcgregor RN Position: [facility] RN Member Role: Primary Care Nurse Name: Cally Funes RN Position: [facility] SN RN Member Role: Primary Care Nurse Name: Lisa Blanton RN Position: [facility] Hospital Director Commercial Sales Member Role: Primary Care Nurse Name: Joel Blanton RN Position: [facility] RN Member Role: Primary Care Nurse Name: Danica Stuart RN Position: [facility] AMB Nurse Member Role: Primary Care Nurse Name: Virginia Bacon RN Position: [facility] RN Member Role: Primary Care Nurse Name: Shruthi Ray RN Position: [facility] Onco RN Member Role: Primary Care Nurse Name: Abbe Choe RN Position: [facility] RN Supv Member Role: Primary Care Nurse Name: Farideh Cat LPN Position: [facility] RN Member Role: Primary Care Nurse Name: Janis Morris RN Position: [facility] Hospital Director Commercial Sales Member Role: Primary Care Nurse Name: Darrian Chang RN Position: [facility] Hospital Director Commercial Sales Member Role: Primary Care Nurse Name: Josef Woods RN Position: [facility] RN Member Role: Primary Care Nurse Name: Siomara Raphael RN Position: [facility] RN Member Role: Primary Care Nurse Name: Jerry Mcneill RN Position: [facility] RN Member Role: Primary Care Nurse Care Team Related Persons Name: IVAN VILLASENOR Address: [place] [address] Name: REYNALDO KAUR Address: [address] [place] [address] Name: EMMA SERRANO Address: home [address] [address] Name: PATRICK MATA Address: [address] [place] [address] Name: FARIDEH POPE Address: [place] [address]
--- OUTSIDE RECORDS SUMMARY | 2022-08-31 01:03 | XMS_ITS | Continuity of Care Document ---
Author Name Unknown Organization [facility] ter Address [address] [place] [address]- Care Team Providers Care Car Driver Name Role Phone Jerica DO Darrylumair Candy Primary Care Physician ( [phone] Encounter [facility] Date(s): 04/17/20 - 05/31/[address] [address] Attending Physician: Sarah Franco MD Admitting Physician: Sarah Franco MD Referring Physician: Sarah Franco MD Allergies, Adverse Reactions, Alerts Substance Reaction [...] 1 02/02/07 Given 1Admin Note: manufactured by [employer] Medications albuterol 0.042% inhalation solution 3 [...] 0 Refills, Maintenance, 04/03/20 13:23:00 EST, Solution, [facility]/pharmacy #[id number], Partial fill upon patient request if the [...] 0 Refills, Soft Stop, 04/09/20 13:16:00 EST, [facility], Partial fill upon patient request if [...] 0 Refills, Maintenance, 04/02/20 9:29:00 EST, Tablet, [facility], Partial fill upon patient request if the prescription is for a schedule II opioid drug., 154.94, cm, 0... Start Date: 04/02/20 Status: Ordered oxyCODONE 10 mg oral tablet 2 tablet = 20 mg, By Mouth, Every 6 hours, PRN Pain , Severe, take 1 tab for less severe pain, # 56tablet, 0 Refills, Maintenance, 05/30/20 15:57:00 EDT, Tablet, [facility]/pharmacy #[id number], Partial fill upon patient request if the prescription is for a sched... Start Date: 05/30/20 Status: Ordered oxyCODONE 20 mg oral tablet, [...] 08/30/17 8:21:42 EDT, Route to Pharmacy Electronically, [id number], [facility]/pharmacy #[id number] Start Date: 08/30/17 Status: Ordered Tums 500 mg oral tablet, chewable 500 mg, 1, tablet, Chew, Every 4 hours, PRN, # 180 tablet, Refills 0, Tot. Refills 0, Maintenance, Dyspepsia, 06/21/18 11:05:15 EDT, Route to Pharmacy Electronically, [id number], [facility] Start Date: 06/21/18 Status: Ordered [...] WITH PRO LONGED DEPRESSIVE REACTION(Confirmed) 02/03/07 Active [facility] Emeral d Team Senior Level Patient(Confirmed) Active [...]
--- OUTSIDE RECORDS SUMMARY | 2022-08-31 01:03 | XMS_ITS | Continuity of Care Document ---
Author Name Unknown Organization [facility] CHILD CARE ASSOCIATE TEACHER Oncolog y Address [address] [place] [address]- Care Team Providers Care After School Counselor Name Role Phone Chaparrita Pizano DO Primary Care Physician [place] [facility] Date[place]s): 01/17/20 - 02/16/20 [facility] CHILD CARE ASSOCIATE TEACHER Oncology [address] [place] [address] Allergies, Adverse Reactions, Alerts Substance Reaction [...] 11:42:54 EDT, Aerosol, Route to Pharmacy Electronically, [id number], [facility]/pharmacy #[id number], Compound Start Date: 06/10/17 Status: Ordered [...] 0 Refills, Maintenance, 05/02/19 10:52:00 EDT, [facility]/pharmacy #[id number], 155.9, cm, 04/26/19 9:14:00 EDT, Height... [...] EDT, Compound Start Date: 10/08/17 Status: Ordered Diflucan 150 mg oral tablet 1 tablet = 150 mg, By Mouth, Once, # 1 tablet, 1 Refills, Soft Stop, 02/13/20 9:25:00 EST, Tablet, [facility]/pharmacy #[id number], Partial fill upon patient request if the prescription is for a schedule II opioid drug., 155, cm, 08/20/19 16:31:00 EDT, Height, 130... Start Date: 02/13/20 Status: Ordered diphenhydrAMINE 50 mg oral tablet [...] 05/05/18 9:38:51 EDT, Route to Pharmacy Electronically, [id number]... Start Date: 05/05/18 Status: Ordered Insulin Glargine Inj 0.6 mL = 60 units, Subcutaneous Injection, Daily at bedtime, 0 Refills, Maintenance, 08/20/19 18:48:00 EDT, Injection Start Date: 08/20/19 Status: Ordered LORazepam 0.5 mg oral tablet See Instructions, Take 1 tablet by mouth 1 hour prior to biopsy appointment, may repeat x1 if needed, # 2 tablet, 0 Refills, Maintenance, 04/27/19 16:33:00 EDT, [facility]/pharmacy #[id number], 155.9, cm, 04/26/19 9:14:00 EDT, Height, 131.5, kg, 04/26/19 9:14:00 E... Start Date: 04/27/19 Status: Ordered losartan 50 mg oral tablet 50 mg, 1, tablet, By Mouth, Daily, # 30 tablet, Refills 0, Maintenance, 10/04/18 9:33:08 EDT Start Date: 10/04/18 Status: Ordered Lupron Depot 3.75 mg intramuscular kit = 3.75 mg, Intramuscular, Every 28 days, # 1 each, 2 Refills, Maintenance, 12/05/19 20:53:00 EDT, [facility], 155, cm, 08/20/19 16:31:00 EDT, Height, 133.5, kg, 10/06/19 8:15:00 EDT,Dry Weight Start Date: 12/05/19 Stop Date: 03/04/20 Status: Ordered metFORMIN 1000 mg oral tablet [...] By Mouth, Every 6 hours, PRN, # 60 tablet, Refills 0, Tot. Refills 0, Maintenance, for pain, 02/13/20 12:00:00 EST, Route to Pharmacy Electronically, [facility]/pharmacy #[id number], Partial fill upon patient request, 155, cm, 08/20/19 16:31:00 E... Start Date: 02/13/20 Status: Ordered potassium chloride 8 mEq (600 [...] 08/30/17 8:21:42 EDT, Route to Pharmacy Electronically, [id number], [facility]/pharmacy #[id number] Start Date: 08/30/17 Status: Ordered tiZANidine [...] 06/21/18 11:05:15 EDT, Route to Pharmacy Electronically, [id number], [facility] Start Date: 06/21/18 [...]
--- OUTSIDE RECORDS SUMMARY | 2022-08-31 01:03 | XMS_ITS | Continuity of Care Document ---
Author Name Unknown Organization [facility] DIVE SUPERINTENDENT Oncolog y Address [address] [place] [address]- Care Team Providers Care Diversified Crops Farmworker Name Role Phone Jerica Chaparrita DO Primary Care Physician Encounter [facility] Date(s): 04/14/20 - 05/14/20 [facility] DIVE SUPERINTENDENT Oncology [address] [place], [place] [address] Allergies, Adverse Reactions, Alerts Substance Reaction [...] 1 02/02/07 Given 1Admin Note: manufactured by [employer] Medications albuterol 0.042% inhalation solution 3 [...] Refills, Maintenance, 04/03/20 13:23:00 EST, Solution, [facility]/pharmacy #[id number], Partial fill upon patient request if the [...] Refills, Soft Stop, 04/09/20 13:16:00 EST, [facility], Partial fill upon patient [...] Refills, Maintenance, 04/02/20 9:29:00 EST, Tablet, [facility], Partial fill upon patient request if the prescription is for a schedule II opioid drug., 154.94, cm, 0... Start Date: 04/02/20 Status: Ordered oxyCODONE 10 mg oral tablet 2 tablet = 20 mg, By Mouth, Every 6 hours, PRN Pain , Severe, take 1 tab for less severe pain, # 56tablet, 0 Refills, Maintenance, 05/09/20 16:38:00 EDT, Tablet, [facility]/pharmacy #6411, Partial fill upon patient request if the [...] 08/30/17 8:21:42 EDT, Route to Pharmacy Electronically, [id number], [facility]/pharmacy #[id number] Start Date: 08/30/17 Status: Ordered Tums 500 mg oral tablet, chewable 500 mg, 1, tablet, Chew, Every 4 hours, PRN, # 180 tablet, Refills 0, Tot. Refills 0, Maintenance, Dyspepsia, 06/21/18 11:05:15 EDT, Route to Pharmacy Electronically, [id number], [facility] Start Date: 06/21/18 Status: [...] WITH PRO LONGED DEPRESSIVE REACTION(Confirmed) 02/03/07 Active [facility] Emeral d Team Senior Level [...]
--- OUTSIDE RECORDS SUMMARY | 2022-08-31 01:03 | XMS_ITS | Continuity of Care Document ---
Author Name Unknown Organization [facility] ter Address [address] [place] [address]- Care Team Providers Care Hospice Liaison Name Role Phone Darryl Pizano DOdavidradha Gupta Primary Care Physician Encounter [facility] [place] Date(s): 12/28/21 - 03/29/[address] [address]- Attending Physician: Donald Murphy MD Admitting Physician: [...] to receive vaccine 2Admin Note: manufactured by [employer] Medications albuterol 0.042% inhalation solution 3 [...] 03/12/22 12:08:00 EST, Route to Pharmacy Electronically, [facility], Partial fill upon [...] 03/09/23 23:00:00 EST, 03/12/22 12:09:00 EST, Syrup, [facility], Partial fill upon [...] 03/09/23 23:00:00 EST, 03/12/22 12:10:00 EST, Patch, [facility], Partial fill upon [...] tablet, 0 Refills, Maintenance, 04/02/20 9:29:00 EST, [facility], Partial fill [...] 03/12/22 12:06:00 EST, Route to Pharmacy Electronically, [facility], Partial fill uponpatient request if the [...] 06/21/18 11:05:15 EDT, Route to Pharmacy Electronically, [id number], [facility] Start Date: 06/21/18 Status: Ordered Vitamin [...] WITH PROLONGED DEPRESSIVE REACTION Confirmed 02/03/07 Active [facility] [employer] Team Senior Level Patient Confirmed Active ASTHMA [...] Confirmed 02/03/07 Active Neurogenic bladder Confirmed Active AUREILO (obstructive sleep apnea) Confirmed Active Optic neuritis, [...] Team Personnel Name: Lola Belcher RN Position: [facility] RN Member Role: Primary Care Nurse Name: Jose Enrique Saul RN Position: [facility] RN Member Role: Primary Care Nurse Name: Symone Mckinnon RN Position: [facility] RN Member Role: Primary Care Nurse Name: Carolyn Pelaez RN Position: [facility] RN Member Role: Primary Care Nurse Name: Deanna Garcia RN Position: [facility] RN Member Role: Primary Care Nurse Name: Fanny Mixon RN Position: [facility] ED RN W/OE and Tasks Member Role: Primary Care Nurse Name: María Ashford RN Position: [facility] AMB Nurse Member Role: Primary Care Nurse Name: Chanelle Hernandez RN Position: [facility] PCO RN Member Role: Primary Care Nurse Name: Estelle García RN Position: [facility] RN Member Role: Primary Care Nurse Name: Deanne Rangel RN Position: [facility] RN Member Role: Primary Care Nurse Name: Carine Jimenez RN Position: [facility] SN RN Member Role: Primary Care Nurse Name: Jenelle Campo RN Position: [facility] RN Member Role: Primary Care Nurse Name: Keyla Godwin RN Position: [facility] RN Member Role: Primary Care Nurse Name: Yeimi Devine RN Position: [facility] RN Member Role: Primary Care Nurse Name: Mary Yan RN Position: [facility] RN Member Role: Primary Care Nurse Name: Iliana Pop RN Position: [facility] RN Member Role: Primary Care Nurse Name: Alcides Dueñas RN Position: [facility] RN Member Role: Primary Care Nurse Name: Lisa Beatty Position: [facility] Outreach Member Role: Lifetime Consulting Physician Name: Armida Beatty RN Position: [facility] RN Member Role: Primary Care Nurse Name: Roque Villasenor MD Position: [facility] Renal MD Member Role: Lifetime Consulting Physician Address: Address: [address] [place] [address], [address] [facility] [address]- Name: Lashon Lvoell RN Position: [facility] SN RN Member Role: Primary Care Nurse Name: Kristi Giraldo RN Position: [facility] RN Supv Member Role: Primary Care Nurse Name: Jerrod Casarez RN Position: [facility] RN Member Role: Primary Care Nurse Name: Shane Riley RN Position: [facility] RN Member Role: Primary Care Nurse Name: Isac Plascencia RN Position: [facility] RN Member Role: Primary Care Nurse Name: Rosalva Martin RN Position: [facility] RN Member Role: Primary Care Nurse Name: Sheela Matt RN Position: [facility] RN Member Role: Primary Care Nurse Name: Armida Ochoa RN Position: [facility] RN Member Role: Primary Care Nurse Name: Deonna Murillo RN Position: [facility] RN Member Role: Primary Care Nurse Name: Felipa Diehl RN Position: [facility] HBO Wound Member Role: Primary Care Nurse Name: Evelin Powell RN Position: [facility] AMB Nurse Member Role: Primary Care Nurse Name: Deonna Pendleton RN Position: [facility] RN Member Role: Primary Care Nurse Name: Pili Kaba RN Position: [facility] RN Member Role: Primary Care Nurse Name: Alejandro Yanes RN Position: [facility] RN Member Role: Primary Care Nurse Name: Stacey Díaz RN Position: [facility] SN RN Member Role: Primary Care Nurse Name: Jac Reese RN Position: [facility] RN Member Role: Primary Care Nurse Name: Celestine Schwartz RN Position: [facility] RN Member Role: Primary Care Nurse Name: Neeta Carpenter RN Position: [facility] RN Member Role: Primary Care Nurse Name: Susie Estrada RN Position: [facility] RN Member Role: Primary Care Nurse Name: Inna Cantor RN Position: [facility] RN Member Role: Primary Care Nurse Name: Chaparrita Pizano DO Position: [facility] Physician (General Medicine) Member Role: PCP Address: Address: [address] [place] [address] [place] [address]- Name: Ning Rolon RN Position: [facility] RN Member Role: Primary Care Nurse Name: Rubi Carrasco RN Position: [facility] SN RN Member Role: Primary Care Nurse Name: Lauryn Holden RN Position: [facility] RN Member Role: Primary Care Nurse Name: Shen Silvestre RN Position: [facility] RN Member Role: Primary Care Nurse Name: Jones Cervantes RN Position: [facility] RN Member Role: Primary Care Nurse Name: Olivia Caputo RN Position: [facility] RN Member Role: Primary Care Nurse Name: Brooklyn Jim RN Position: [facility] RN Member Role: Primary Care Nurse Name: Kimberly Santoro RN Position: [facility] RN Member Role: Primary Care Nurse Name: Haley Diamond RN Position: [facility] RN Member Role: Primary Care Nurse Name: Ashley Meléndez NP Position: [facility] PCO Associate Professional Member Role: Primary Care Nurse Address: Address: [address] [place] [address]- Name: Siomara Patricia RN Position: [facility] PCO RN Member Role: Primary Care Nurse Name: Neeta Painter RN Position: [facility] RN Member Role: Primary Care Nurse Name: Edith Drummond RN Position: [facility] RN Member Role: Primary Care Nurse Name: Bailey Espinal RN Position: [facility] AMB Nurse Member Role: Primary Care Nurse Name: Brooklyn Ramsey RN Position: [facility] RN Member Role: Primary Care Nurse Name: Keyla Bright RN Position: [facility] RN Member Role: Primary Care Nurse Name: Beverley Tatum RN Position: [facility] RN Member Role: Primary Care Nurse Name: Mainor Devries RN Position: [facility] RN Member Role: Primary Care Nurse Name: Yarely Richards RN Position: [facility] Hospital Clinical Social Work Aide Member Role: Primary Care Nurse Name: Oralia Massey RN Position: [facility] RN Member Role: Primary Care Nurse Name: Cassie Villanueva RN Position: [facility] RN Member Role: Primary Care Nurse Name: Taiwo Mcgregor RN Position: [facility] RN Member Role: Primary Care Nurse Name: Cally Funes RN Position: [facility] RN Member Role: Primary Care Nurse Name: Marina Osorio Position: [facility] RN Member Role: Primary Care Nurse Name: Lisa Blanton RN Position: [facility] Clinical Social Work Aide Member Role: Primary Care Nurse Name: Danica Stuart RN Position: [facility] AMB Nurse Member Role: Primary Care Nurse Name: Virginia Bacon RN Position: [facility] RN Member Role: Primary Care Nurse Name: Shruthi Ray RN Position: [facility] RN Member Role: Primary Care Nurse Name: Abbe Choe RN Position: [facility] RN Supv Member Role: Primary Care Nurse Name: Farideh Cat LPN Position: [facility] RN Member Role: Primary Care Nurse Name: Janis Morris RN Position: [facility] Clinical Social Work Aide Member Role: Primary Care Nurse Name: Darrian Chang RN Position: [facility] Clinical Social Work Aide Member Role: Primary Care Nurse Name: Josef Woods RN Position: [facility] RN Member Role: Primary Care Nurse Name: Siomara Raphael Position: [facility] RN Member Role: Primary Care Nurse Name: Jerry Mcneill RN Position: [facility] RN Member Role: Primary Care Nurse Care Team Related Persons Name: IVAN VILLASENOR Address: [place] [address] Name: REYNALDO KAUR Address: home [address] [place] [address] Name: EMMA SERRANO Address: home [address] [address] Name: PATRICK MATA Address: home [address] [place] [address] Name: FARIDEH POPE Address: [place] [address]
--- OUTSIDE RECORDS SUMMARY | 2022-08-31 01:03 | XMS_ITS | Continuity of Care Document ---
Author Name Unknown Organization [facility] Address [address] [place] [address]- Care Team Providers Care Risk Reduction Counselor Name Role Phone Jerica Chaparrita DO Primary Care Physician Encounter [facility] [place] Date(s): 04/14/20 - 05/14/20 [facility] [address] [place], [place] [address] Allergies, Adverse Reactions, Alerts Substance [...] 1 02/02/07 Given 1Admin Note: manufactured by [employer] Medications albuterol 0.042% inhalation solution 3 [...] Maintenance, 04/03/20 13:23:00 EST, Solution, [id number], Partial fill upon patient request if the [...] 0 Refills, Soft Stop, 04/09/20 13:16:00 EST, [facility], Partial fill [...] 0 Refills, Maintenance, 04/02/20 9:29:00 EST, Tablet, [facility], Partial fill [...] Maintenance, 05/09/20 16:38:00 EDT, Tablet, [id number], Partial fill upon patient request if the [...] 08/30/17 8:21:42 EDT, Route to Pharmacy Electronically, [id number], [facility][id number] Start Date: 08/30/17 Status: Ordered Tums 500 mg oral tablet, chewable 500 mg, 1, tablet, Chew, Every 4 hours, PRN, # 180 tablet, Refills 0, Tot. Refills 0, Maintenance, Dyspepsia, 06/21/18 11:05:15 EDT, Route to Pharmacy Electronically, [id number], [facility] Start Date: 06/21/18 [...] WITH PRO LONGED DEPRESSIVE REACTION(Confirmed) 02/03/07 Active [facility] Emeral d Team Senior Level [...]
--- OUTSIDE RECORDS SUMMARY | 2022-08-31 01:03 | XMS_ITS | Continuity of Care Document ---
Author Name Unknown Organization [facility] Address [address] [place] [address] [address] [place] [address]- Care Team Providers Care Newsstand Vendor Name Role Phone Chaparrita Pizano DO Primary Care Physician [place] [facility] [place] Date(s): 09/17/21 - 10/17/21 [facility] [address] [place] [address]- Attending Physician: Jamie Gregorio Admitting Physician: AdmJamie hernandez Referring Physician: AdmtraJmie Allergies, Adverse Reactions, Alerts Substance Reaction Severity [...] to receive vaccine 2Admin Note: manufactured by [employer] Medications albuterol 0.042% inhalation solution 3 [...] Route to Pharmacy Electronically, [facility], Partial fill upon patient [...] 08/31/22 13:22:00 EDT, 08/31/20 13:21:00 EDT, Syrup, [facility]/pharmacy #[id number], Partial fill upon patient [...] 04/02/20 9:29:00 EST, Tablet, [facility], Partial fill upon patient [...] 06/21/18 11:05:15 EDT, Route to Pharmacy Electronically, [id number], [facility] Start Date: [...] WITH PRO LONGED DEPRESSIVE REACTION(Confirmed) 02/03/07 Active [facility] Emerarcelia d Team Senior Level Patient(Confirmed) Active ASTHMA(Confirmed) [...] on: 01/30/16 Sex Care Team Personnel Name: JericaChaparrita apple DO Address: [address] [place] [address]
--- OUTSIDE RECORDS SUMMARY | 2022-08-31 01:03 | XMS_ITS | Continuity of Care Document ---
Author Name Unknown Organization [facility] ter Address [address] [place] [address]- Care Team Providers Care Quality Consultant Name Role Phone Jerica DO Darryldavidradha Gupta Primary Care Physician Encounter [facility] [place] Date(s): 12/28/21 - 04/12/[address] [address]- Attending Physician: Donald Murphy MD Admitting Physician: Donald Murphy MD Referring Physician: Donald Murphy MD Allergies, Adverse Reactions, Alerts Substance Reaction Severity Status doxycycline mouth swelling Active ceftriaxone hives Active iodine topical swelling itching Active penicillin throat swelling Rash Persistent Severe Active famotidine vomiting Active morphine 1, 2, 3 hives Active melatonin Active Pepcid vomitng Active Zofran 4 can [...] to receive vaccine 2Admin Note: manufactured by [facility] [employer] Medications albuterol 0.042% inhalation solution 3 [...] 03/12/22 12:08:00 EST, Route to Pharmacy Electronically, [facility], Partial fill upon [...] 03/09/23 23:00:00 EST, 03/12/22 12:09:00 EST, Syrup, [facility], Partial fill upon [...] 03/09/23 23:00:00 EST, 03/12/22 12:10:00 EST, Patch, [facility], Partial fill upon [...] tablet, 0 Refills, Maintenance, 04/02/20 9:29:00 EST, [facility], Partial fill upon patient request if [...] 03/12/22 12:06:00 EST, Route to Pharmacy Electronically, [facility], Partial fill uponpatient request if the [...] 06/21/18 11:05:15 EDT, Route to Pharmacy Electronically, [id number], [facility] 3 Start Date: 06/21/18 Status: Ordered Vitamin [...] WITH PROLONGED DEPRESSIVE REACTION Confirmed 02/03/07 Active [facility] [place] Team Senior Level Patient Confirmed Active ASTHMA [...] Hernandez RN Position: [facility] AMB [...] Care Nurse Name: Deonna Beatty RN Position: [facility] RN Member Role: Primary Care Nurse Name: Roque Villasenor MD Position: [facility] Renal MD Member Role: Lifetime Consulting Physician Address: Address: [address] [place] [address], [address] [facility] [place] [address]- Name: Lashon Lovell RN Position: [facility] SN [...] (General Medicine) Member Role: PCP Address: Address: [address] [place] [address] [place] [address]- [place] Name: Ning Rolon RN [facility] Member Role: Primary Care Nurse Address: Address: [address] [place] [address]- Name: Siomara Patricia RN [facility] [...] Care Nurse Name: Yarely Richards RN Position: [facility] Furnace Converter Member Role: Primary Care Nurse Name: Oralia [...] Care Nurse Name: Lisa Blanton RN Position: [facility] [employer] Member Role: Primary Care Nurse Name: Danica Stuart RN Position: [facility] AMB Nurse Member Role: Primary Care Nurse Name: Virginia Bacon RN Position: [facility] RN Member Role: Primary Care Nurse Name: Shruthi Ray RN Position: [facility] Onco RN Member Role: Primary Care Nurse Name: Abbe Choe RN Position: [facility] RN Supv Member Role: Primary Care Nurse Name: Farideh Cat LPN Position: [facility] RN Member Role: Primary Care Nurse Name: Janis Morris RN Position: [facility] [employer] Member Role: Primary Care Nurse Name: Darrian Chang RN Position: [facility] [employer] Member Role: Primary Care Nurse Name: Josef Woods RN Position: [facility] RN Member Role: Primary Care Nurse Name: Siomara Raphael Position: [facility] RN Member Role: Primary Care Nurse Name: Jerry Mcneill RN Position: [facility] RN Member Role: Primary Care Nurse Care Team Related Persons Name: IVAN VILLASENOR Address: [place] [address] Name: REYNALDO KAUR Address: home [address] [place] [address] Name: EMMA SERRANO Address: home [address] [address] Name: PATRICK MATA Address: home [address] [place] [address] Name: FARIDEH POPE Address: [place] [address]
--- OUTSIDE RECORDS SUMMARY | 2022-08-31 01:03 | XMS_ITS | Continuity of Care Document ---
Author Name Unknown Organization [facility] ter Address [address] [place] [address]- Care Team Providers Care Button Attaching Machine Operator Name Role Phone JericaChaparrita apple DO Primary Care Physician ( [phone] Encounter [facility] [place] Date(s): 08/03/20 - 08/06/[address] [address] Discharge Disposition: A-D/C Home Attending Physician: Timmy Rodney MD Admitting Physician: Yaw Case MD Referring Physician: Not on Staff, Referring [...] to receive vaccine 2Admin Note: manufactured by [employer] Medications albuterol 0.042% inhalation solution 3 [...] Start Date: 04/04/20 Status: Ordered Dilaudid Inj 1 mg, Injection, IV Push Slowly, Every 4 hours, PRN for Pain , Severe, Routine, 08/04/20 1:23:00 EDT Start Date: 08/04/20 Stop Date: 08/06/20 Status: Discontinued Insulin Glargine Inj 0.3 mL [...] oral tablet 50 mg, Tablet, By Mouth, 08/06/20 9:00:00 EDT Start Date: 08/06/20 Stop Date: 08/06/20 Status: Completed naloxone 4 mg/0.1 mL nasal spray = 4 mg, Nares, Both, Once, # 2 each, 0 Refills, Soft Stop, 04/09/20 13:16:00 EST, [facility], Partial fill upon patient request [...] 08/14/20 14:34:00 EDT, 07/31/20 14:34:00 EDT, Tablet, [facility], Partialfill upon patient request if the prescription is for a... Start Date: 07/31/20 Stop Date: 08/14/20 Status: Ordered ondansetron 4 mg oral tablet, disintegrating = 4 mg, By Mouth, Every 6 hours, PRN Nausea & Vomiting, # 90 tablet, 0 Refills, Maintenance, 04/02/20 9:29:00 EST, Tablet, [facility], Partial fill upon patient request if the prescription is for a schedule II opioid drug., 154.94, cm, 0... Start Date: 04/02/20 Status: Ordered oxyCODONE 10 mg oral tablet See Instructions, 1 tablet By Mouth 5 times per day for 7 days, per pain services recommedations, #35 tablet, 0 Refills, Maintenance, 06/20/20 8:49:00 EDT, Tablet, [facility]/pharmacy #[id number], Partial fill upon patient request if [...] Date: 05/01/20 Stop Date: 05/06/20 Status: Ordered oxyCODONE 5 mg oral tablet 10 mg, Tablet, By Mouth, Every 6 hours, PRN for Pain , Moderate, Routine, 08/04/20 11:24:00 EDT Start Date: 08/04/20 Stop Date: 08/06/20 Status: Discontinued propranolol 120 mg oral capsule, [...] 08/30/17 8:21:42 EDT, Route to Pharmacy Electronically, [id number], [facility]/pharmacy #[id number] Start Date: 08/30/17 Status: Ordered Tums 500 mg oral tablet, chewable 500 mg, 1, tablet, Chew, Every 4 hours, PRN, # 180 tablet, Refills 0, Tot. Refills 0, Maintenance, Dyspepsia, 06/21/18 11:05:15 EDT, Route to Pharmacy Electronically, [id number], [facility] Start Date: 06/21/18 Status: Ordered [...] WITH PRO LONGED DEPRESSIVE REACTION(Confirmed) 02/03/07 Active [facility] Emeral d Team Senior Level [...] Results Orders for Microbiology Reports Name Date Stool Culture 08/05/20 Blood Culture #2 08/03/20 Blood Culture 08/03/20 Microbiology Reports TEST:Stool Culture STATUS:Unauthenticated BODY SITE: SOURCE:STOOL COLLECTED DATE/TIME:08/05/20 8:00 AM Stool Culture SPECIMEN DESCRIPTION : STOOL NOT IN [facility]EL[facility] PRESERVATIVE SPECIAL REQUESTS : NONE CULTURE : SPECIMEN NOT RECEIVED IN [facility], UNABLE TO TEST FOR SHIGA TOXIN. CONTACT [facility] FOR COLLECTION AND TRANSPORT INSTRUCTION AND SUPPLIES NORMAL SO FAR REPORT STATUS : PRELIMINARY REPORT TEST:Blood Culture, Second Order STATUS:Unauthenticated BODY SITE: SOURCE:Blood COLLECTED DATE/TIME:08/03/20 4:34 PM Blood Culture, Second Order SPECIMEN DESCRIPTION : BLOOD LT AC SPECIAL REQUESTS : NONE CULTURE : NO GROWTH 3 DAYS REPORT STATUS : PRELIMINARY REPORT TEST:Blood Culture STATUS:Unauthenticated BODY SITE: SOURCE:Blood COLLECTED DATE/TIME:08/03/20 2:00 PM Blood Culture SPECIMEN DESCRIPTION : BLOOD PORT SPECIAL REQUESTS : NONE CULTURE : NO GROWTH 3 DAYS REPORT STATUS : PRELIMINARY REPORT Vital Signs Most recent to oldest [Reference Range]: 1 2 3 Oxygen Saturation [94-100 %] 99 % (08/06/20 11:45 AM) 96 % (08/06/20 7:16 AM) 98 % (08/06/20 3:48 AM) Pulse Rate [55-90 bpm] 71 bpm (08/06/20 11:45 AM) 79 bpm (08/06/20 7:16 AM) 79 bpm (08/06/20 3:48 AM) Blood Pressure [90-138/55-84 mm Hg] 137/67mm Hg (08/06/20 11:45 AM) 114/76mm Hg (08/06/20 8:34 AM) 114/56mm Hg (08/06/20 7:16 AM) Respiratory Rate [16-30 br/min] 16 br/min (08/06/20 12:01 PM) 18 br/min (08/06/20 11:45 AM) 16 br/min (08/06/20 9:24 AM) Temperature [96.8-100.4 DegF] 98.0 DegF (08/06/20 11:45 AM) 98.4 DegF (08/06/20 7:16 AM) 98.5 DegF (08/06/20 3:48 AM) Mode of Delivery (Oxygen) Room air (08/06/20 11:45 AM) Room air (08/06/20 7:16 AM) Room air (08/06/20 3:48 AM) Blood pressure sites Arm, right (08/06/20 11:45 AM) Arm, left (08/06/20 7:16 AM) Arm, right (08/06/20 3:48 AM) Temperature Route Oral (08/06/20 11:45 AM) Oral (08/06/20 7:16 AM) Oral (08/06/20 3:48 AM) Social History Social History Type Response Smoking Status Former smoker; Other : quit 04/2015; entered on: 01/30/16 Sex Female
--- OUTSIDE RECORDS SUMMARY | 2022-08-31 01:04 | XMS_ITS | Continuity of Care Document ---
Author Name Unknown Organization [facility] Address [address] [place] [address]- Care Team Providers Care Geography Teacher Name Role Phone Chaparrita Pizano DO Primary Care Physician Encounter [facility] [place] Date(s): 01/28/20 - 02/27/20 [facility] [address] [place] [id number] Allergies, Adverse Reactions, Alerts Substance [...] 1 02/02/07 Given 1Admin Note: manufactured by [employer] Medications albuterol CFC free 90 mcg/inh [...] 11:42:54 EDT, Aerosol, Route to Pharmacy Electronically, [id number], [facility]/pharmacy #[id number], Compound Start Date: 06/10/17 Status: Ordered [...] capsule, 0 Refills, Maintenance, 05/02/19 10:52:00 EDT, [facility]/pharmacy #[id number], 155.9, cm, 04/26/19 9:14:00 EDT, Height... [...] Refills, Soft Stop, 02/13/20 9:25:00 EST, Tablet, [facility]/pharmacy #[id number], Partial fill upon patient request if the [...] 05/05/18 9:38:51 EDT, Route to Pharmacy Electronically, [id number]... Start Date: 05/05/18 Status: Ordered Insulin Glargine Inj 0.6 mL = 60 units, Subcutaneous Injection, Daily at bedtime, 0 Refills, Maintenance, 08/20/19 18:48:00 EDT, Injection Start Date: 08/20/19 Status: Ordered LORazepam 0.5 mg oral tablet See Instructions, Take 1 tablet by mouth 1 hour prior to biopsy appointment, may repeat x1 if needed, # 2 tablet, 0 Refills, Maintenance, 04/27/19 16:33:00 EDT, [facility]/pharmacy #[id number], 155.9, cm, 04/26/19 9:14:00 EDT, Height, [...] each, 2 Refills, Maintenance, 12/05/19 20:53:00 EDT, [facility], 155, cm, 08/20/19 16:31:00 EDT, [...] 0, Tot. Refills 0, Maintenance, for pain, 02/19/20 14:40:00 EST, Route to Pharmacy Electronically, [facility]/pharmacy #[id number], Partial fill upon patient request, 155, cm, 08/20/19 16:31:00... Start Date: 02/19/20 Status: Ordered potassium chloride 8 mEq (600 [...] 08/30/17 8:21:42 EDT, Route to Pharmacy Electronically, [id number], [facility]/pharmacy #[id number] Start Date: 08/30/17 Status: Ordered tiZANidine [...] 06/21/18 11:05:15 EDT, Route to Pharmacy Electronically, [id number], [facility] Start Date: 06/21/18 [...]
--- OUTSIDE RECORDS SUMMARY | 2022-08-31 01:04 | XMS_ITS | Continuity of Care Document ---
Author Name Unknown Organization [facility] ter Address [address] [place] [address]- Care Team Providers Care Button Machine Operator Name Role Phone Jerica DOChaparrita Primary Care Physician [place] [facility] [place] - 07/03/[address] [address] Attending Physician: Donald Murphy MD Admitting [...] Active Nexium diarrhea, vomitting Active Nicotine Patch naa cardia Active Lyrica Angioedema Active Lantiseptic Skin [...] to receive vaccine 2Admin Note: manufactured by [employer] Medications albuterol 0.042% inhalation solution 3 [...] 08/31/21 13:21:00 EDT, 08/31/20 13:21:00 EDT, Tablet, [facility]/pharmacy #[id number], Partial fill upon patient request... Start Date: [...] 08/31/22 13:22:00 EDT, 08/31/20 13:21:00 EDT, Syrup, [facility]/pharmacy #[id number], Partial fill upon patient request if [...] 0 Refills, Maintenance, 04/02/20 9:29:00 EST, Tablet, [facility], Partial fill upon patient request [...] Refills, Soft Stop, 06/26/21 7:59:00 EDT, Tablet, [facility]/pharmacy #[id number], Partial fill upon patient request if [...] 08/30/17 8:21:42 EDT, Route to Pharmacy Electronically, [id number], [facility]/pharmacy #[id number] Start Date: 08/30/17 Status: Ordered Tums 500 mg oral tablet, chewable 500 mg, 1, tablet, Chew, Every 4 hours, PRN, # 180 tablet, Refills 0, Tot. Refills 0, Maintenance, Dyspepsia, 06/21/18 11:05:15 EDT, Route to Pharmacy Electronically, [id number], [facility] 3 Start Date: 06/21/18 Status: Ordered [...]
--- OUTSIDE RECORDS SUMMARY | 2022-08-31 01:04 | XMS_ITS | Continuity of Care Document ---
Author Name Unknown Organization [facility] Address [address] [place] [address]- Care Team Providers Care Development Geologist Name Role Phone Jerica DOChaparrita Primary Care Physician Encounter [facility] [place] Date(s): 04/28/21 - 05/28/21 [facility] [address] [place] [address]- [place] Allergies, Adverse Reactions, Alerts Substance Reaction Severity [...] to receive vaccine 2Admin Note: manufactured by [employer] Medications albuterol 0.042% inhalation solution 3 mL [...] EDT, 08/31/20 13:21:00 EDT, Tablet, [facility]/pharmacy #[id number], Partial fill upon patient request... Start Date: [...] 08/31/20 13:21:00 EDT, Syrup, [facility]/pharmacy #[id number], Partial fill upon patient request if [...] 0 Refills, Maintenance, 04/02/20 9:29:00 EST, Tablet, [facility], Partial fill upon [...] 08/30/17 8:21:42 EDT, Route to Pharmacy Electronically, [id number], [facility]/pharmacy #[id number] Start Date: 08/30/17 Status: Ordered Tums 500 mg oral tablet, chewable 500 mg, 1, tablet, Chew, Every 4 hours, PRN, # 180 tablet, Refills 0, Tot. Refills 0, Maintenance, Dyspepsia, 06/21/18 11:05:15 EDT, Route to Pharmacy Electronically, [id number], [facility] 3 Start Date: 06/21/18 Status: Ordered Tylenol 325 mg oral capsule 2 capsule = 650 mg, By Mouth, Every 4 hours, PRN as needed for pain, # 60 capsule, 0 Refills, Acute06/14/21 0:00:00 EDT, 04/23/21 16:19:00 EST, Capsule, [facility]/pharmacy #[id number], Partial fill upon patientrequest if the [...] WITH PRO LONGED DEPRESSIVE REACTION(Confirmed) 02/03/07 Active [facility] Emeral d Team Senior Level [...]
--- OUTSIDE RECORDS SUMMARY | 2022-08-31 01:04 | XMS_ITS | Continuity of Care Document ---
Author Name Unknown Organization [facility] Address [address] [place] [address]- Care Team Providers Care Catering Cook Name Role Phone Chaparrita Pizano DO Primary Care Physician Encounter [facility] [place] Date(s): 01/28/20 - 02/27/20 [facility] [address] [place] [address]- Attending Physician: Admdavid, Christopher8 Admitting Physician: AdmtrJamie Referring Physician: Admtr, Ar8 [...] 11:42:54 EDT, Aerosol, Route to Pharmacy Electronically, [id number], [facility]/pharmacy #[id number], Compound Start Date: 06/10/17 Status: Ordered [...] capsule, 0 Refills, Maintenance, 05/02/19 10:52:00 EDT, [facility]/pharmacy #[id number], 155.9, cm, 04/26/19 9:14:00 EDT, Height... [...] Refills, Soft Stop, 02/13/20 9:25:00 EST, Tablet, [facility]/pharmacy #[id number], Partial fill upon patient request if the [...] 05/05/18 9:38:51 EDT, Route to Pharmacy Electronically, [id number]... Start Date: 05/05/18 Status: Ordered Insulin Glargine Inj 0.6 mL = 60 units, Subcutaneous Injection, Daily at bedtime, 0 Refills, Maintenance, 08/20/19 18:48:00 EDT, Injection Start Date: 08/20/19 Status: Ordered LORazepam 0.5 mg oral tablet See Instructions, Take 1 tablet by mouth 1 hour prior to biopsy appointment, may repeat x1 if needed, # 2 tablet, 0 Refills, Maintenance, 04/27/19 16:33:00 EDT, [facility]/pharmacy #[id number], 155.9, cm, 04/26/19 9:14:00 EDT, Height, [...] each, 2 Refills, Maintenance, 12/05/19 20:53:00 EDT, [facility], 155, cm, 08/20/19 16:31:00 [...] 02/19/20 14:40:00 EST, Route to Pharmacy Electronically, [facility]/pharmacy #[id number], Partial fill upon patient request, 155, cm, [...] 08/30/17 8:21:42 EDT, Route to Pharmacy Electronically, [id number], [facility]/pharmacy #[id number] Start Date: 08/30/17 Status: Ordered tiZANidine [...] 06/21/18 11:05:15 EDT, Route to Pharmacy Electronically, [id number], [facility] Start Date: 06/21/18 Status: [...] WITH PRO LONGED DEPRESSIVE REACTION(Confirmed) 02/03/07 Active [facility] Emeral d Team [...]
--- OUTSIDE RECORDS SUMMARY | 2022-08-31 01:04 | XMS_ITS | Continuity of Care Document ---
Author Name Unknown Organization [facility] RN Onc[facility] y Address [address] [place] [address]- Care Team Providers Care Landscaping Crew Leader Name Role Phone Chaparrita Pizano DO Primary Care Physician [place] [facility] [place](s): 02/05/20 - 03/06/20 [facility] [address] [place] [id number] Allergies, Adverse Reactions, Alerts Substance [...] 11:42:54 EDT, Aerosol, Route to Pharmacy Electronically, [id number], [facility]/pharmacy #[id number], Compound Start Date: 06/10/17 Status: Ordered [...] 0 Refills, Maintenance, 05/02/19 10:52:00 EDT, [facility]/pharmacy #[id number], 155.9, cm, 04/26/19 9:14:00 EDT, Height... [...] Soft Stop, 02/13/20 9:25:00 EST, Tablet, [facility]/pharmacy #[id number], Partial fill upon patient request if the [...] 05/05/18 9:38:51 EDT, Route to Pharmacy Electronically, [id number]... Start Date: 05/05/18 Status: Ordered Insulin Glargine Inj 0.6 mL = 60 units, Subcutaneous Injection, Daily at bedtime, 0 Refills, Maintenance, 08/20/19 18:48:00 EDT, Injection Start Date: 08/20/19 Status: Ordered LORazepam 0.5 mg oral tablet See Instructions, Take 1 tablet by mouth 1 hour prior to biopsy appointment, may repeat x1 if needed, # 2 tablet, 0 Refills, Maintenance, 04/27/19 16:33:00 EDT, [facility]/pharmacy #[id number], 155.9, cm, 04/26/19 9:14:00 EDT, Height, [...] 03/04/20 8:13:00 EST, Route to Pharmacy Electronically, [facility]/pharmacy #[id number], Partial fill upon patient request, 155, cm, [...] 08/30/17 8:21:42 EDT, Route to Pharmacy Electronically, [id number], [facility]/pharmacy #[id number] Start Date: 08/30/17 Status: Ordered tiZANidine [...] 06/21/18 11:05:15 EDT, Route to Pharmacy Electronically, [id number], [facility] Start Date: [...] Active MIGRAINE(Confirmed) 02/03/07 Active Neurogenic bladder(Confirmed) Active AUREILO (obstructive sleep apnea)(Confirmed) Active Optic neuritis, right(Confirmed) Active Partial small bowel obstruction(Confirmed) Active Pelvic mass in female(Confirmed) Active Spinal stenosis(Confirmed) Active DM (diabetes mellitus), type 2, uncontrolled(Confirmed) Active Social History Social History Type Response Smoking Status Former smoker; Other : quit 04/2015; entered on: 01/30/16 Sex Female
--- OUTSIDE RECORDS SUMMARY | 2022-08-31 01:04 | XMS_ITS | Continuity of Care Document ---
Author Name Unknown Organization [facility] ter Address [address] [place] [address]- Care Team Providers Care Educational Speech Language Clinician Name Role Phone Chaparrita Pizano DO Primary Care Physician Encounter [facility] [place] Date(s): 05/25/21 - 05/26/[address] [address]- Encounter Diagnosis Flank pain(Final) - 05/26/21 Discharge Disposition: A-D/C Home Attending Physician: Shen Sharma MD Admitting Physician: Shen Sharma MD Referring Physician: Not on Staff, Referring MD Allergies, Adverse Reactions, Alerts Substance Reaction Severity Status doxycycline mouth swelling Active ceftriaxone hives Active penicillin throat swelling Rash Persistent Severe Active melatonin Active Zofran 1 can only be given w/ benadryl hives Active famotidine vomiting Active morphine 2, 3, 4 hives Active iodine topical swelling itching Active Pepcid vomitng Active Adhesive Bandage skin excoriation hives Active Contrast Dye hives itchy throat itchy Persistent Mild Active Nexium diarrhea, vomitting Active Levaquin tingling in mouth, rash Acti ve Compazine shortness of breath Active Tylenol hives Active Reglan severe restless legs Active Latex vag rash Active Seafood Anaphylactic shock d ue to adverse food reaction Severe Active Nicotine Patch ana cardia Active Lyrica Angioedema Active Lantiseptic Skin Protectant Active 1patient tolerated zofran on 05/25/2013 2per MD, tolerates with diphenhydramine 3Tolerates hydromorphone 4Tolerates Oxycontin [...] to receive vaccine 2Admin Note: manufactured by [employer] Medications albuterol 0.042% inhalation solution 3 [...] 13:21:00 EDT, 08/31/20 13:21:00 EDT, Tablet, [facility]/pharmacy #[id number], Partial fill upon patient request... Start Date: [...] 13:22:00 EDT, 08/31/20 13:21:00 EDT, Syrup, [facility]/pharmacy #[id number], Partial fill upon patient request if [...] 04/02/20 9:29:00 EST, Tablet, [facility], Partial fill upon [...] 08/30/17 8:21:42 EDT, Route to Pharmacy Electronically, [id number], [facility]/pharmacy #[id number] Start Date: 08/30/17 Status: Ordered Tums 500 mg oral tablet, chewable 500 mg, 1, tablet, Chew, Every 4 hours, PRN, # 180 tablet, Refills 0, Tot. Refills 0, Maintenance, Dyspepsia, 06/21/18 11:05:15 EDT, Route to Pharmacy Electronically, [id number], [facility] 3 Start Date: 06/21/18 Status: Ordered Tylenol 325 mg oral capsule 2 capsule = 650 mg, By Mouth, Every 4 hours, PRN as needed for pain, # 60 capsule, 0 Refills, Acute06/14/21 0:00:00 EDT, 04/23/21 16:19:00 EST, Capsule, [facility]/pharmacy #[id number], Partial fill upon patientrequest if the [...] WITH PRO LONGED DEPRESSIVE REACTION(Confirmed) 02/03/07 Active [facility] Emeral d Team Senior Level [...] Range]: 1 2 3 Height 155 cm (05/26/21 6:54 AM) 155 cm (05/25/21 6:13 PM) 155 cm (05/25/21 3:48 PM) Weight 130.5 kg (05/26/21 6:54 AM) 130.5 kg (05/25/21 6:13 PM) 130.5 kg (05/25/21 3:48 PM) Oxygen Saturation [94-100 %] 98 % (05/26/21 6:54 AM) 98 % (05/26/21 1:17 AM) 98 % (05/25/21 11:00 PM) Pulse Rate [55-90 bpm] 99 bpm *H* (05/26/21 6:54 AM) 106 bpm *H* (05/26/21 1:17 AM) 95 bpm *H* (05/25/21 11:00 PM) Body Mass Index [18.5-24.99] 54.32 *>HHI* (05/26/21 6:54 AM) 54.32 *>HHI* (05/25/21 3:48 PM) Blood Pressure [90-138/55-84 mm Hg] 130/86mm Hg (05/26/21 6:54 AM) 156/104mm Hg *H* (05/26/21 1:17 AM) 132/86mm Hg (05/25/21 11:00 PM) Respiratory Rate [16-30 br/min] 19 br/min (05/26/21 6:54 AM) 20 br/min (05/26/21 1:17 AM) 18 br/min (05/25/21 11:00 PM) Temperature [96.8-100.4 DegF] 97.9 DegF (05/26/21 6:54 AM) 98.1 DegF (05/26/21 1:17 AM) 98.5 DegF (05/25/21 11:00 PM) Mode of Delivery (Oxygen) Room air (05/26/21 6:54 AM) Room air (05/26/21 1:17 AM) Room air (05/25/21 11:00 PM) Blood pressure sites Arm, left (05/26/21 6:54 AM) Arm, left (05/26/21 1:17 AM) Arm, right (05/25/21 11:00 PM) Temperature Route Oral (05/26/21 6:54 AM) Oral (05/26/21 1:17 AM) Oral (05/25/21 11:00 PM) Dry Weight 130.5 kg (05/26/21 6:54 AM) 130.5 kg (05/25/21 6:13 PM) 130.5 kg (05/25/21 3:48 PM) Weight Obtained Via Standing scale (05/25/21 3:48 PM) Dry Weight Obtained Via Standing scale (05/25/21 3:48 PM) Social History Social History Type Response Smoking Status Former smoker; Other : quit 04/2015; entered on: 01/30/16 Sex
--- OUTSIDE RECORDS SUMMARY | 2022-08-31 01:04 | XMS_ITS | Continuity of Care Document ---
Author Name Unknown Organization [facility] Address [address] [place] [address]- Care Team Providers Care Equal Opportunity Specialist Name Role Phone Chaparrita Pizano DO Primary Care Physician ( [phone] Encounter [facility] Date(s): 06/04/20 - 07/04/[address] [address]- Allergies, Adverse Reactions, Alerts Substance Reaction Severity [...] 1 02/02/07 Given 1Admin Note: manufactured by [employer] Medications albuterol 0.042% inhalation solution 3 [...] Refills, Soft Stop, 06/23/20 10:08:00 EDT, Tablet, [facility]/pharmacy #[id number], Partial fill upon patient request if the [...] 0 Refills, Soft Stop, 04/09/20 13:16:00 EST, [facility], Partial fill upon patient [...] 0 Refills, Maintenance, 04/02/20 9:29:00 EST, Tablet, [facility], Partial fill upon patient request if the prescription is for a schedule II opioid drug., 154.94, cm, 0... Start Date: 04/02/20 Status: Ordered oxyCODONE 10 mg oral tablet See Instructions, 1 tablet By Mouth 5 times per day for 7 days, per pain services recommedations, #35 tablet, 0 Refills, Maintenance, 06/20/20 8:49:00 EDT, Tablet, [facility]/pharmacy #[id number], Partial fill upon [...] 08/30/17 8:21:42 EDT, Route to Pharmacy Electronically, [id number], [facility]/pharmacy #[id number] Start Date: 08/30/17 Status: Ordered Tums 500 mg oral tablet, chewable 500 mg, 1, tablet, Chew, Every 4 hours, PRN, # 180 tablet, Refills 0, Tot. Refills 0, Maintenance, Dyspepsia, 06/21/18 11:05:15 EDT, Route to Pharmacy Electronically, [id number], [facility] 3 Start Date: 06/21/18 Status: Ordered Vitamin [...] WITH PRO LONGED DEPRESSIVE REACTION(Confirmed) 02/03/07 Active [facility] Emeral d Team Senior Level [...]
--- OUTSIDE RECORDS SUMMARY | 2022-08-31 01:04 | XMS_ITS | Continuity of Care Document ---
Author Name Unknown Organization [facility] ter Address [address] [place] [id number]- Care Team Providers Care Senior Production Planner Name Role Phone Jerica DOChaparrita Primary Care Physician Encounter [facility] Date(s): 12/28/21 - 04/05/[address] [address]- Attending Physician: Donald Murphy MD Admitting Physician: Donald Murphy MD Referring Physician: Donald Murphy MD Allergies, Adverse Reactions, Alerts Substance Reaction Severity Status doxycycline mouth swelling Active ceftriaxone hives Active Pepcid vomitng Active penicillin throat swelling Rash Persistent Severe Active famotidine vomiting Active morphine 1, 2, 3 hives Active iodine topical swelling itching Active melatonin Active Zofran 4 can only be given w/ benadryl hives Active Seafood Anaphylactic shock d ue to adverse food reaction Severe Active Nexium diarrhea, vomitting Active Levaquin tingling in mouth, rash Acti ve Compazine shortness of breath Active Tylenol hives Active Reglan severe restless legs Active Adhesive Bandage skin excoriation hives Active Contrast Dye hives itchy throat itchy Persistent Mild Active Latex vag rash Active Lantiseptic Skin Protectant Active Nicotine Patch [...] to receive vaccine 2Admin Note: manufactured by [employer] Medications albuterol 0.042% inhalation solution 3 [...] 03/12/22 12:08:00 EST, Route to Pharmacy Electronically, [facility], Partial fill upon [...] 03/09/23 23:00:00 EST, 03/12/22 12:09:00 EST, Syrup, [facility], Partial fill upon [...] 03/09/23 23:00:00 EST, 03/12/22 12:10:00 EST, Patch, [facility], Partial fill upon [...] tablet, 0 Refills, Maintenance, 04/02/20 9:29:00 EST, [facility], Partial fill upon patient request if [...] 03/12/22 12:06:00 EST, Route to Pharmacy Electronically, [facility], Partial fill uponpatient request if the [...] 06/21/18 11:05:15 EDT, Route to Pharmacy Electronically, [id number], [facility] Start Date: 06/21/18 [...] WITH PROLONGED DEPRESSIVE REACTION Confirmed 02/03/07 Active [facility] Team Senior Level Patient Confirmed Active ASTHMA [...] Team Personnel Name: Lola Belcher RN Position: [facility] RN Member Role: Primary Care Nurse Name: Jose Enrique Saul RN Position: [facility] RN Member Role: Primary Care Nurse Name: Symone Mckinnon RN Position: [facility] RN Member Role: Primary Care Nurse Name: Carolyn Pelaez RN Position: [facility] RN Member Role: Primary Care Nurse Name: Deanna Garcia RN Position: [facility] RN Member Role: Primary Care Nurse Name: Fanny Mixon RN Position: [facility] ED RN W/OE and Tasks Member Role: Primary Care Nurse Name: María Ashford RN Position: [facility] AMB Nurse Member Role: Primary Care Nurse Name: Chanelle Hernandez RN Position: [facility] AMB Nurse Member Role: Primary Care Nurse Name: Estelle García RN Position: [facility] RN Member Role: Primary Care Nurse Name: Deanne Rangel RN Position: [facility] RN Member Role: Primary Care Nurse Name: Carine Jimenez RN Position: [facility] SN RN Member Role: Primary Care Nurse Name: Jenelle Campo RN Position: [facility] RN Member Role: Primary Care Nurse Name: Keyla Godwin RN Position: [facility] RN Member Role: Primary Care Nurse Name: Yeimi Devine RN Position: [facility] RN Member Role: Primary Care Nurse Name: Mary Yan RN Position: [facility] RN Member Role: Primary Care Nurse Name: Iliana Pop RN Position: [facility] RN Member Role: Primary Care Nurse Name: Alcides Dueñas RN Position: [facility] RN Member Role: Primary Care Nurse Name: Lisa Beatty Position: [facility] Outreach Member Role: Lifetime Consulting Physician Name: Armida Beatty RN Position: [facility] RN Member Role: Primary Care Nurse Name: Deonna Beatty RN Position: [facility] RN Member Role: Primary Care Nurse Name: Roque Villasenor MD Position: [facility] Renal MD Member Role: Lifetime Consulting Physician Address: Address: [address] [place] [address], [address] [facility] [place] [address]- Name: Lashon Lovell RN Position: [facility] SN RN Member Role: Primary Care Nurse Name: Kristi Giraldo RN Position: [facility] RN Supv Member Role: Primary Care Nurse Name: Jerrod Casarez RN Position: [facility] RN Member Role: Primary Care Nurse Name: hSane Riley RN Position: [facility] RN Member Role: Primary Care Nurse Name: Isac Plascencia RN Position: [facility] RN Member Role: Primary Care Nurse Name: Rosalva Martin RN Position: [facility] RN Member Role: Primary Care Nurse Name: Sheela Matt RN Position: [facility] RN Member Role: Primary Care Nurse Name: Armida Ochoa RN Position: [facility] RN Member Role: Primary Care Nurse Name: Felipa Diehl RN Position: [facility] HBO Wound Member Role: Primary Care Nurse Name: Evelin Powell RN Position: [facility] AMB Nurse Member Role: Primary Care Nurse Name: Deonna Pendleton RN Position: [facility] RN Member Role: Primary Care Nurse Name: Pili Kaba RN Position: [facility] RN Member Role: Primary Care Nurse Name: Alejandro Yanes RN Position: [facility] RN Member Role: Primary Care Nurse Name: Stacey Díaz RN Position: [facility] SN RN Member Role: Primary Care Nurse Name: Jac Reese RN Position: [facility] RN Member Role: Primary Care Nurse Name: Celestine Schwartz RN Position: [facility] RN Member Role: Primary Care Nurse Name: Neeta Carpenter RN Position: [facility] RN Member Role: Primary Care Nurse Name: Susie Estrada RN Position: [facility] RN Member Role: Primary Care Nurse Name: Inna Cantor RN Position: [facility] RN Member Role: Primary Care Nurse Name: Chaparrita Pizano DO Position: [facility] Physician (General Medicine) Member Role: PCP Address: Address: [address] [place] [address] [place] [address]- [place] Name: Ning Rolon RN Position: [facility] RN Member Role: Primary Care Nurse Name: Rubi Carrasco RN Position: [facility] SN RN Member Role: Primary Care Nurse Name: Lauryn Holden RN Position: [facility] RN Member Role: Primary Care Nurse Name: Jones Cervantes RN Position: [facility] RN Member Role: Primary Care Nurse Name: Olivia Caputo RN Position: [facility] RN Member Role: Primary Care Nurse Name: Brooklyn Jim RN Position: [facility] RN Member Role: Primary Care Nurse Name: Kimberly Santoro RN Position: [facility] RN Member Role: Primary Care Nurse Name: Haley Diamond RN Position: [facility] RN Member Role: Primary Care Nurse Name: Ashley Meléndez NP Position: [facility] PCO Associate Professional Member Role: Primary Care Nurse Address: Address: [address] [place] [address]- Name: Siomara Patricia RN Position: [facility] PCO RN Member Role: Primary Care Nurse Name: Neeta Painter RN Position: [facility] RN Member Role: Primary Care Nurse Name: Edith Drummond RN Position: [facility] RN Member Role: Primary Care Nurse Name: Bailey Espinal RN Position: [facility] AMB Nurse Member Role: Primary Care Nurse Name: Brooklyn Ramsey RN Position: [facility] RN Member Role: Primary Care Nurse Name: Keyla Bright RN Position: [facility] RN Member Role: Primary Care Nurse Name: Beverley Tatum RN Position: [facility] RN Member Role: Primary Care Nurse Name: Mainor Devries RN Position: [facility] RN Member Role: Primary Care Nurse Name: Yarely Richards RN Position: [facility] Cosmetology Teacher Member Role: Primary Care Nurse Name: Oralia Massey RN Position: [facility] RN Member Role: Primary Care Nurse Name: Cassie Villanueva RN Position: [facility] RN Member Role: Primary Care Nurse Name: Taiwo Mcgregor RN Position: [facility] RN Member Role: Primary Care Nurse Name: Cally Funes RN Position: [facility] RN Member Role: Primary Care Nurse Name: Marina Osorio Position: [facility] RN Member Role: Primary Care Nurse Name: Lisa Blanton RN Position: [facility] Cosmetology Teacher Member Role: Primary Care Nurse Name: Danica Stuart RN Position: [facility] AMB Nurse Member Role: Primary Care Nurse Name: Virginia Bacon RN Position: [facility] RN Member Role: Primary Care Nurse Name: Shruthi Ray RN Position: [facility] Onco RN Member Role: Primary Care Nurse Name: Abbe Choe RN Position: [facility] RN Supv Member Role: Primary Care Nurse Name: Farideh Cat LPN Position: [facility] RN Member Role: Primary Care Nurse Name: Janis Morris RN Position: [facility] Cosmetology Teacher Member Role: Primary Care Nurse Name: Darrian Chang RN Position: [facility] Cosmetology Teacher Member Role: Primary Care Nurse Name: Josef Woods RN Position: [facility] RN Member Role: Primary Care Nurse Name: Siomara Raphael Position: [facility] RN Member Role: Primary Care Nurse Name: Jerry Mcneill RN Position: [facility] RN Member Role: Primary Care Nurse Care Team Related Persons Name: IVAN VILLASENOR Address: [place] [address] Name: REYNALDO KAUR Address: home [address] [place] [address] Name: EMMA SERRANO Address: home [address] [address] Name: PATRICK MATA Address: home [address] [place] [address] Name: FARIDEH POPE Address: [place] [address]
--- OUTSIDE RECORDS SUMMARY | 2022-08-31 01:04 | XMS_ITS | Continuity of Care Document ---
Author Name Unknown Organization [facility] ter Address [address] [place] [address]- Care Team Providers Care Cigar Sorter Name Role Phone Darryl Pizano DOdavidradha Gupta Primary Care Physician Encounter [facility] Date(s): 08/20/21 - 01/08/[address] [address]- Attending Physician: Donald Murphy MD Admitting Physician: [...] to receive vaccine 2Admin Note: manufactured by [employer] Medications albuterol 0.042% inhalation solution 3 [...] 09/08/21 13:21:00 EDT, [facility] Electron[facility] [...] 0 Refills, Maintenance, 04/02/20 9:29:00 EST, Tablet, [facility], Partial fill upon patient request [...] 06/21/18 11:05:15 EDT, Route to Pharmacy Electronically, [id number], [facility] 3 Start Date: 06/21/18 Status: Ordered [...] WITH PROLONGED DEPRESSIVE REACTION Confirmed 02/03/07 Active [place] [facility] [place] Team Senior Level Patient Confirmed Active ASTHMA [...] Team Personnel Name: Lola Belcher RN Position: [facility] RN Member Role: Primary Care Nurse Name: Jose Enrique Saul RN Position: [facility] RN Member Role: Primary Care Nurse Name: Symone Mckinnon RN Position: [facility] RN Member Role: Primary Care Nurse Name: Carolyn Pelaez RN Position: [facility] RN Member Role: Primary Care Nurse Name: Deanna Garcia RN Position: [facility] RN Member Role: Primary Care Nurse Name: Fanny Mixon RN Position: [facility] ED RN W/OE and Tasks Member Role: Primary Care Nurse Name: María Ashford RN Position: [facility] AMB Nurse Member Role: Primary Care Nurse Name: Chanelle Hernandez RN Position: [facility] PCO RN Member Role: Primary Care Nurse Name: Estelle García RN Position: [facility] RN Member Role: Primary Care Nurse Name: Deanne Rangel RN Position: [facility] RN Member Role: Primary Care Nurse Name: Carine Jimenez RN Position: [facility] RN Member Role: Primary Care Nurse Name: Jenelle Campo RN Position: [facility] RN Member Role: Primary Care Nurse Name: Keyla Godwin RN Position: [facility] RN Member Role: Primary Care Nurse Name: Yeimi Devine RN Position: [facility] RN Member Role: Primary Care Nurse Name: Mary Yan RN Position: [facility] RN Member Role: Primary Care Nurse Name: Iliana Pop RN Position: [facility] RN Member Role: Primary Care Nurse Name: Alcides Dueñas RN Position: [facility] RN Member Role: Primary Care Nurse Name: Lisa Beatty Position: [facility] Outreach Member Role: Lifetime Consulting Physician Name: Armida Beatty RN Position: [facility] RN Member Role: Primary Care Nurse Name: Roque Villasenor MD Position: [facility] Renal MD Member Role: Lifetime Consulting Physician Address: Address: [address] [place] [address], [address] [facility] [place], [place] [address] Name: Lashon Lovell RN Position: [facility] SN RN Member Role: Primary Care Nurse Name: Kristi Giraldo RN Position: [facility] RN Supv Member Role: Primary Care Nurse Name: Jerrod Casarez RN Position: [facility] RN Member Role: Primary Care Nurse Name: Rosalva Martin RN Position: [facility] RN Member Role: Primary Care Nurse Name: Armida Ochoa RN Position: [facility] RN Member Role: Primary Care Nurse Name: Deonna Murillo RN Position: [facility] RN Member Role: Primary Care Nurse Name: Felipa Diehl RN Position: [facility] HBO Wound Member Role: Primary Care Nurse Name: Evelin Powell RN Position: [facility] AMB Nurse Member Role: Primary Care Nurse Name: Deonna Pendleton RN Position: [facility] RN Member Role: Primary Care Nurse Name: Pili Kaba RN Position: [facility] RN Member Role: Primary Care Nurse Name: Alejandro Yanes RN Position: [facility] RN Member Role: Primary Care Nurse Name: Stacey Díaz RN Position: [facility] SN RN Member Role: Primary Care Nurse Name: Jac Reese RN Position: [facility] RN Member Role: Primary Care Nurse Name: Celestine Schwartz RN Position: [facility] RN Member Role: Primary Care Nurse Name: Neeta Carpenter RN Position: [facility] RN Member Role: Primary Care Nurse Name: Susie Estrada RN Position: [facility] RN Member Role: Primary Care Nurse Name: Inna Cantor RN Position: [facility] RN Member Role: Primary Care Nurse Name: Chaparrita Pizano DO Position: [facility] Physician (General Medicine) Member Role: PCP Address: Address: [address] [place] [id number]- Name: Ning Rolon RN Position: [facility] RN Member Role: Primary Care Nurse Name: Rubi Carrasco RN Position: [facility] SN RN Member Role: Primary Care Nurse Name: Lauryn Holden RN Position: [facility] RN Member Role: Primary Care Nurse Name: Shen Silvestre RN Position: [facility] RN Member Role: Primary Care Nurse Name: Jones Cervantes RN Position: [facility] RN Member Role: Primary Care Nurse Name: Olivia Caputo RN Position: [facility] RN Member Role: Primary Care Nurse Name: Brooklyn Jim RN Position: [facility] RN Member Role: Primary Care Nurse Name: Kimberly Santoro RN Position: [facility] RN Member Role: Primary Care Nurse Name: Hlaey Diamond RN Position: [facility] RN Member Role: Primary Care Nurse Name: Ashley Meléndez NP Position: [facility] PCO Associate Professional Member Role: Primary Care Nurse Address: Address: [address] [place] [id number]- Name: Siomara Patricia RN Position: [facility] PCO RN Member Role: Primary Care Nurse Name: Neeta Painter RN Position: [facility] RN Member Role: Primary Care Nurse Name: Edith Drummond RN Position: [facility] RN Member Role: Primary Care Nurse Name: Bailey Espinal RN Position: [facility] AMB Nurse Member Role: Primary Care Nurse Name: Brooklyn Ramsey RN Position: [facility] RN Member Role: Primary Care Nurse Name: Keyla Bright RN Position: [facility] RN Member Role: Primary Care Nurse Name: Beverley Tatum RN Position: [facility] RN Member Role: Primary Care Nurse Name: Mainor Devries RN Position: [facility] RN Member Role: Primary Care Nurse Name: Yarely Richards RN Position: [facility] Guitar Repairer Member Role: Primary Care Nurse Name: Oralia Massey RN Position: [facility] RN Member Role: Primary Care Nurse Name: Rich WILSON pee Position: [facility] RN Member Role: Primary Care Nurse Name: Taiwo Mcgregor RN Position: [facility] RN Member Role: Primary Care Nurse Name: Cally Funes RN Position: [facility] SN RN Member Role: Primary Care Nurse Name: Marina Osorio Position: [facility] RN Member Role: Primary Care Nurse Name: Lisa Blanton RN Position: [facility] Guitar Repairer Member Role: Primary Care Nurse Name: Danica Stuart RN Position: [facility] AMB Nurse Member Role: Primary Care Nurse Name: Shruthi Ray RN Position: [facility] RN Member Role: Primary Care Nurse Name: Abbe Choe RN Position: [facility] RN Supv Member Role: Primary Care Nurse Name: Farideh Cat LPN Position: [facility] RN Member Role: Primary Care Nurse Name: Janis Morris RN Position: [facility] Guitar Repairer Member Role: Primary Care Nurse Name: Darrian Chang RN Position: [facility] Guitar Repairer Member Role: Primary Care Nurse Name: Jerry Mcneill RN Position: [facility] RN Member Role: Primary Care Nurse Care Team Related Persons Name: KENNEY VILLASENORINDA Address: [place] [address] Name: REYNALDO KAUR Address: [address] [place] [address] Name: EMMA SERRANO Address: home [address] [address] Name: PATRICK MATA Address: [address] [place] [address] Name: FARIDEH POPE Address: [place] [address]
--- OUTSIDE RECORDS SUMMARY | 2022-08-31 01:05 | XMS_ITS | Continuity of Care Document ---
Author Name Unknown Organization [facility] ter Address [address] [place] [id number]- Care Team Providers Care Production Team Member Name Role Phone Chaparrita Pizano DO Primary Care Physician ( [phone] Encounter [facility] Date(s): 08/29/21 - 09/08/21 [facility] [address] [place] [address]- Discharge Disposition: A-D/C Home Attending Physician: Delroy Alvarez MD Admitting Physician: Ubaldo Pinto MD Referring Physician: Not on Staff, Referring [...] to receive vaccine 2Admin Note: manufactured by [employer] Medications albuterol 0.042% inhalation solution 3 [...] 09/08/21 13:21:00 EDT, Route to Pharmacy Electronically, [facility], Partial fill upon patient request if the prescr... Start Date: 09/08/21 Stop Date: 10/08/21 Status: Ordered Dilaudid 2 mg oral tablet 2 mg, Tablet, By Mouth, Every 4 hours, PRN for Pain , Severe, Routine, 08/31/21 16:58:00 EDT Start Date: 08/31/21 Stop Date: 09/14/21 Status: Ordered Dilaudid 2 mg oral tablet 1 tablet = 2 mg, By Mouth, Every 6 hours, PRN Pain , Severe, for 5 days, # 20 tablet, 0 Refills, Acute 09/13/21 13:17:00 EDT, 09/08/21 13:17:00 EDT, Tablet, [facility], Partial fill upon patient request if the prescription is for a sched... Start Date: 09/08/21 Stop Date: 09/13/21 Status: Ordered Insulin Glargine Inj = 20 [...] 08/31/22 13:22:00 EDT, 08/31/20 13:21:00 EDT, Syrup, [id number], Partial fill upon patient request [...] 0 Refills, Maintenance, 04/02/20 9:29:00 EST, Tablet, [facility], Partial fill upon patient [...] 06/21/18 11:05:15 EDT, Route to Pharmacy Electronically, [id number], [facility] Start Date: 06/21/18 Status: [...] WITH PRO LONGED DEPRESSIVE REACTION(Confirmed) 02/03/07 Active [facility] Emeral d Team Senior Level [...] DM (diabetes mellitus), type 2, uncontrolled(Confirmed) Active Procedures Procedure Date Related Diagnosis Body Site Status EGD - Esophagogastroduodenoscopy 09/02/21 Completed Results Radiology Reports * Exam Date Time Procedure Performing Provider Status 09/01/21 10:44 AM Small Bowel Series Venessa Ramires; Esther (Verified) Notes: (Small Bowel Series) Reason For Exam: Nausea/Vomiting;nausea/ vomiting RESULT: Small Bowel Series Study: Small Bowel Series Indication: Rule out obstruction Comparison: None Findings: Preliminary abdominal x-ray demonstrates nonspecific gas pattern. Hernia mesh tacked projecting over the abdomen. Right upper quadrant cholecystectomy clips noted. Additional surgical clips noted in the left and right upper quadrants.. After oral administration of Omnipaque 350, sequential spot films were obtained. The stomach and duodenum are unremarkable. The loops of small bowel are not dilated and there is no fold thickening. No strictures or masses. The terminal ileum is unremarkable. Contrast reached the terminal ileum after approximately 1 hour 15 minutes. Impression: No obstruction. By undersigning this report the attending radiologist acknowledges that he/she has read the report,reviewed the images, and agrees the findings. I have personally reviewed the images and I agree with this report. WSN: [id number] Ordering Physician: Lolita Brown Dictated By: Lauro Ratliff Dictated Date/Time: 09/01/21 4:19 pm Reviewed By: Otis Kelly MD, V Signed By: Otis Kelly MD, V Signed Date/Time: 09/01/21 4:24 pm Transcribed By: DEIDRE Transcribed Date/Time: 09/01/21 2:14 pm Vital Signs Most recent to oldest [Reference Range]: 1 2 3 Height 155 cm (09/08/21 4:09 PM) 155 cm (09/08/21 11:41 AM) 155 cm (09/08/21 7:43 AM) Weight 124.5 kg (09/02/21 1:00 PM) 124.5 kg (08/29/21 6:03 PM) 124.5 kg (08/29/21 2:22 AM) Oxygen Saturation [94-100 %] 100 % (09/08/21 4:09 PM) 97 % (09/08/21 11:41 AM) 100 % (09/08/21 7:43 AM) Pulse Rate [55-90 bpm] 66 bpm (09/08/21 4:09 PM) 58 bpm (09/08/21 11:41 AM) 61 bpm (09/08/21 7:43 AM) Body Mass Index [18.5-24.99] 51.82 *>HHI* (09/02/21 1:00 PM) 51.82 *>HHI* (08/29/21 6:03 PM) 51.82 *>HHI* (08/29/21 2:22 AM) Blood Pressure [90-138/55-84 mm Hg] 142/74mm Hg *H* (09/08/21 4:09 PM) 112/66mm Hg (09/08/21 11:41 AM) 151/96mm Hg *H* (09/08/21 7:43 AM) Respiratory Rate [16-30 br/min] 18 br/min (09/08/21 4:12 PM) 18 br/min (09/08/21 4:09 PM) 18 br/min (09/08/21 11:42 AM) Temperature [96.8-100.4 DegF] 98.1 DegF (09/08/21 4:09 PM) 98.2 DegF (09/08/21 11:41 AM) 97.8 DegF (09/08/21 7:43 AM) Mode of Delivery (Oxygen) Room air (09/08/21 4:09 PM) Room air (09/08/21 11:41 AM) Room air (09/08/21 7:43 AM) Blood pressure sites Arm, left (09/08/21 4:09 PM) Arm, left (09/08/21 11:41 AM) Arm, left (09/08/21 7:43 AM) Temperature Route Oral (09/08/21 4:09 PM) Oral (09/08/21 11:41 AM) Oral (09/08/21 7:43 AM) Dry Weight 124.5 kg (08/29/21 6:03 PM) 124.5 kg (08/29/21 2:22 AM) 124.5 kg (08/28/21 6:05 PM) Social History Social History Type Response Smoking Status Former smoker; Other : quit 04/2015; entered on: 01/30/16 Sex
--- OUTSIDE RECORDS SUMMARY | 2022-08-31 01:05 | XMS_ITS | Continuity of Care Document ---
Author Name Unknown Organization [facility] ter Address [address] [place] [id number]- Care Team Providers Care Asphalt Patcher Name Role Phone Darryl Pizano DOdavidradha Gupta Primary Care Physician Encounter [facility] Date(s): 12/28/21 - 05/03/[address] [address]- Attending Physician: Donald Murphy MD Admitting Physician: [...] w/ benadryl hives Active Tylenol hives Active Seafood Anaphylactic shock [...] to receive vaccine 2Admin Note: manufactured by [employer] Medications albuterol 0.042% inhalation solution 3 [...] 03/12/22 12:08:00 EST, Route to Pharmacy Electronically, [facility], Partial fill upon patient [...] 03/09/23 23:00:00 EST, 03/12/22 12:09:00 EST, Syrup, [facility], Partial fill upon patient [...] 03/09/23 23:00:00 EST, 03/12/22 12:10:00 EST, Patch, [facility], Partial fill upon patient [...] tablet, 0 Refills, Maintenance, 04/02/20 9:29:00 EST, [facility], Partial fill upon patient [...] 03/12/22 12:06:00 EST, Route to Pharmacy Electronically, [facility], Partial fill uponpatient request if [...] 06/21/18 11:05:15 EDT, Route to Pharmacy Electronically, [id number], [facility] Start Date: 06/21/18 Status: [...] WITH PROLONGED DEPRESSIVE REACTION Confirmed 02/03/07 Active [facility] [place] Team Senior Level Patient Confirmed Active ASTHMA [...] Team Personnel Name: Lola Belcher RN Position: [facility] RN Member Role: Primary Care Nurse Name: Jose Enrique Saul RN Position: [facility] RN Member Role: Primary Care Nurse Name: Symone Mckinnon RN Position: [facility] RN Member Role: Primary Care Nurse Name: Carolyn Pelaez RN Position: [facility] RN Member Role: Primary Care Nurse Name: Fanny Mixon RN Position: [facility] ED RN W/OE and Tasks Member Role: Primary Care Nurse Name: María Ashford RN Position: [facility] AMB Nurse Member Role: Primary Care Nurse Name: Chanelle Hernandez RN Position: [facility] AMB Nurse Member Role: Primary Care Nurse Name: Estelle García RN Position: [facility] RN Member Role: Primary Care Nurse Name: Deanne Rangel RN Position: [facility] RN Member Role: Primary Care Nurse Name: Carine Jimenez RN Position: [facility] AMB Nurse Member Role: Primary Care Nurse Name: Jenelle Campo RN Position: [facility] RN Member Role: Primary Care Nurse Name: Keyla Godwin RN Position: [facility] RN Member Role: Primary Care Nurse Name: Yeimi Devine RN Position: [facility] RN Member Role: Primary Care Nurse Name: Mary Yan RN Position: [facility] RN Member Role: Primary Care Nurse Name: Iliana Pop RN Position: [facility] RN Member Role: Primary Care Nurse Name: Alcides Dueñas RN Position: [facility] RN Member Role: Primary Care Nurse Name: Lisa Beatty Position: [facility] Outreach Member Role: Lifetime Consulting Physician Name: Armida Beatty RN Position: [facility] RN Member Role: Primary Care Nurse Name: Deonna Beatty RN Position: [facility] RN Member Role: Primary Care Nurse Name: Roque Villasenor MD Position: [facility] Renal MD Member Role: Lifetime Consulting Physician Address: Address: [address] [place] [address], [address] [facility] [place] [address]- Name: Lashon Lovell RN Position: [facility] SN RN Member Role: Primary Care Nurse Name: Kristi Giraldo RN Position: [facility] RN Supv Member Role: Primary Care Nurse Name: Jerrod Casarez RN Position: [facility] RN Member Role: Primary Care Nurse Name: Shane Riley RN Position: [facility] RN Member Role: Primary Care Nurse Name: Isac Plascencia RN Position: [facility] RN Member Role: Primary Care Nurse Name: Rosalva Martin RN Position: [facility] RN Member Role: Primary Care Nurse Name: Sheela Matt RN Position: [facility] RN Member Role: Primary Care Nurse Name: Armida Ochoa RN Position: [facility] RN Member Role: Primary Care Nurse Name: Felipa Diehl RN Position: [facility] HBO Wound Member Role: Primary Care Nurse Name: Evelin Powell RN Position: [facility] AMB Nurse Member Role: Primary Care Nurse Name: Donald Murphy MD Position: [facility] Renal MD Member Role: Lifetime Consulting Physician Address: Address: [address] [place] [address] [address] [facility] [place] [address]- Name: Deonna Pendleton RN Position: [facility] RN Member Role: Primary Care Nurse Name: Pili Kaba RN Position: [facility] RN Member Role: Primary Care Nurse Name: Alejandro Yanes RN Position: [facility] RN Member Role: Primary Care Nurse Name: Stacey Díaz RN Position: [facility] SN RN Member Role: Primary Care Nurse Name: Jac Reese RN Position: [facility] RN Member Role: Primary Care Nurse Name: Celestine Schwartz RN Position: [facility] GAGANDEEP RN W/OE and Tasks Member Role: Primary Care Nurse Name: Neeta Carpenter RN Position: [facility] RN Member Role: Primary Care Nurse Name: Susie Estrada RN Position: [facility] RN Member Role: Primary Care Nurse Name: Inna Cantor RN Position: [facility] RN Member Role: Primary Care Nurse Name: Chaparrita Pizano DO Position: [facility] Physician (General Medicine) Member Role: PCP Address: Address: [address] [place] [address]- [place] Name: Ning Rolon RN Position: [facility] RN Member Role: Primary Care Nurse Name: Rubi Carrasco RN Position: [facility] SN RN Member Role: Primary Care Nurse Name: Lauryn Holden RN Position: [facility] RN Member Role: Primary Care Nurse Name: Jones Cervantes RN Position: [facility] RN Member Role: Primary Care Nurse Name: Olivia Caputo RN Position: [facility] RN Member Role: Primary Care Nurse Name: Brooklyn Jim RN Position: [facility] RN Member Role: Primary Care Nurse Name: Kimberly Santoro RN Position: [facility] RN Member Role: Primary Care Nurse Name: Haley Diamond RN Position: [facility] RN Member Role: Primary Care Nurse Name: Ashley Meléndez NP Position: [facility] PCO Associate Professional Member Role: Primary Care Nurse Address: Address: [address] [place] [address] 3rd floor [facility] [place] [address]- Name: Siomara Patricia RN Position: [facility] PCO RN Member Role: Primary Care Nurse Name: Neeta Painter RN Position: [facility] RN Member Role: Primary Care Nurse Name: Bailey Espinal RN Position: [facility] AMB Nurse Member Role: Primary Care Nurse Name: Brooklyn Ramsey RN Position: [facility] RN Member Role: Primary Care Nurse Name: Keyla Bright RN Position: [facility] RN Member Role: Primary Care Nurse Name: Beverley Tatum RN Position: [facility] RN Member Role: Primary Care Nurse Name: Mainor Devries RN Position: [facility] RN Member Role: Primary Care Nurse Name: Yarely Richards RN [facility] Member Role: Primary Care Nurse Name: Oralia Massey RN Position: [facility] RN Member Role: Primary Care Nurse Name: Cassie Villanueva RN Position: [facility] RN Member Role: Primary Care Nurse Name: Taiwo Mcgregor RN Position: [facility] RN Member Role: Primary Care Nurse Name: Cally Funes RN Position: [facility] RN Member Role: Primary Care Nurse Name: Marina Osorio Position: [facility] RN Member Role: Primary Care Nurse Name: Harvinder RNLisa [facility] Member Role: Primary Care Nurse Name: Danica Stuart RN Position: [facility] AMB Nurse Member Role: Primary Care Nurse Name: Virginia Bacon RN Position: [facility] RN Member Role: Primary Care Nurse Name: Shruthi Ray RN Position: [facility] Onco RN Member Role: Primary Care Nurse Name: Abbe Choe RN Position: [facility] RN Supv Member Role: Primary Care Nurse Name: Fraideh Cat LPN Position: [facility] RN Member Role: Primary Care Nurse Name: Janis Morris RN [facility] Member Role: Primary Care Nurse Name: Darrian Chang RN [facility] Member Role: Primary Care Nurse Name: Josef Woods RN Position: [facility] RN Member Role: Primary Care Nurse Name: Siomara Raphael RN Position: [facility] RN Member Role: Primary Care Nurse Name: Jerry Mcneill RN Position: [facility] RN Member Role: Primary Care Nurse Care Team Related Persons Name: IVAN VILLASENOR Address: [place] [address] Name: REYNALDO KAUR Address: [address] [place] [address] Name: EMMA SERRANO Address: home [address] [address] Name: PATRICK MATA Address: [address] [place] [address] Name: FARIDEH POPE Address: [place] [address]
--- OUTSIDE RECORDS SUMMARY | 2022-08-31 01:05 | XMS_ITS | Continuity of Care Document ---
Author Name Unknown Organization [facility] ter Address [address] [place] [address]- Care Team Providers Care Planning Advisor Name Role Phone Chaparrita Pizano DO Primary Care Physician ( [phone] [place] [facility] [id number] Date(s): 12/28/21 - 03/22/[address] [address]- Attending Physician: Donald Murphy MD Admitting Physician: Donald Murphy MD Referring Physician: Donald Murphy MD Allergies, Adverse Reactions, Alerts Substance Reaction Severity Status doxycycline mouth swelling Active ceftriaxone hives Active Zofran 1 can only be given w/ benadryl hives Active penicillin throat swelling Rash Persistent Severe Active famotidine vomiting Active morphine 2, 3, 4 hives Active iodine topical swelling itching Active melatonin Active Pepcid vomitng Active Levaquin tingling in mouth, rash Acti ve Adhesive Bandage skin excoriation hives Active Seafood Anaphylactic shock d ue to adverse food reaction Severe Active Compazine shortness of breath Active Tylenol hives Active Reglan severe restless legs Active Contrast Dye hives itchy throat itchy Persistent Mild Active Latex vag rash Active Nexium diarrhea, vomitting Active Lantiseptic Skin Protectant Active Nicotine Patch ana cardia Active Lyrica Angioedema Active 1patient tolerated zofran on 05/25/2013 2per [...] to receive vaccine 2Admin Note: manufactured by [employer] Medications albuterol 0.042% inhalation solution 3 [...] 03/12/22 12:08:00 EST, Route to Pharmacy Electronically, [facility], Partial fill upon patient [...] 03/09/23 23:00:00 EST, 03/12/22 12:09:00 EST, Syrup, [facility], Partial fill upon patient [...] 03/09/23 23:00:00 EST, 03/12/22 12:10:00 EST, Patch, [facility], Partial fill upon patient [...] tablet, 0 Refills, Maintenance, 04/02/20 9:29:00 EST, [facility], Partial fill upon patient request [...] 03/12/22 12:06:00 EST, Route to Pharmacy Electronically, [facility], Partial fill uponpatient request if [...] 06/21/18 11:05:15 EDT, Route to Pharmacy Electronically, [id number], [facility] 3 Start Date: 06/21/18 Status: Ordered [...] WITH PROLONGED DEPRESSIVE REACTION Confirmed 02/03/07 Active [facility] [place] Team Senior Level Patient Confirmed Active ASTHMA [...] RN Position: [facility] RN Member Role: Primary Care Nurse Name: Jose Enrique Saul RN Position: [facility] RN Member Role: Primary Care Nurse Name: Symone Mckinnon RN Position: [facility] RN Member Role: Primary Care Nurse Name: Carolyn Pelaez RN Position: [facility] RN Member Role: Primary Care Nurse Name: Deanna Garcia RN Position: [facility] RN Member Role: Primary Care Nurse Name: Fanny Mixon RN Position: [facility] ED RN W/OE and Tasks Member Role: Primary Care Nurse Name: María Ashford RN Position: [facility] AMB Nurse Member Role: Primary Care Nurse Name: Chanelle Hernandez RN Position: [facility] PCO RN Member Role: Primary Care Nurse Name: Estelle García RN Position: [facility] RN Member Role: Primary Care Nurse Name: Deanne Rangel RN Position: [facility] RN Member Role: Primary Care Nurse Name: Carine Jimenez RN Position: [facility] SN RN Member Role: Primary Care Nurse Name: Jenelle Campo RN Position: [facility] RN Member Role: Primary Care Nurse Name: Keyla Godwin RN Position: [facility] RN Member Role: Primary Care Nurse Name: Yeimi Devine RN Position: [facility] RN Member Role: Primary Care Nurse Name: Mary Yan RN Position: [facility] RN Member Role: Primary Care Nurse Name: Iliana Pop RN Position: [facility] RN Member Role: Primary Care Nurse Name: Alcides Dueñas RN Position: [facility] RN Member Role: Primary Care Nurse Name: Lisa Beatty Position: [facility] Outreach Member Role: Lifetime Consulting Physician Name: Armida Beatty RN Position: [facility] RN Member Role: Primary Care Nurse Name: Roque Villasenor MD Position: [facility] Renal MD Member Role: Lifetime Consulting Physician Address: Address: [address] [place] [address], [address] [facility] [place], [place] [address] Name: Lashon Lovell RN Position: [facility] SN RN Member Role: Primary Care Nurse Name: Kristi Giraldo RN Position: [facility] RN Supv Member Role: Primary Care Nurse Name: Jerrod Casarez RN Position: [facility] RN Member Role: Primary Care Nurse Name: Shane Riley RN Position: [facility] RN Member Role: Primary Care Nurse Name: Isac Plascencia RN Position: [facility] RN Member Role: Primary Care Nurse Name: Rosalva Martin RN Position: [facility] RN Member Role: Primary Care Nurse Name: Sheela Matt RN Position: [facility] RN Member Role: Primary Care Nurse Name: Armida Ochoa RN Position: [facility] RN Member Role: Primary Care Nurse Name: Deonna Murillo RN Position: [facility] RN Member Role: Primary Care Nurse Name: Felipa Diehl RN Position: [facility] HBO Wound Member Role: Primary Care Nurse Name: Evelin Powell RN Position: [facility] AMB Nurse Member Role: Primary Care Nurse Name: Deonna Pendleton RN Position: [facility] RN Member Role: Primary Care Nurse Name: Pili Kaba RN Position: [facility] GAGANDEEP RN W/OE and Tasks Member Role: Primary Care Nurse Name: Alejandro Yanes RN Position: [facility] RN Member Role: Primary Care Nurse Name: Stacey Díaz RN Position: [facility] SN RN Member Role: Primary Care Nurse Name: Jac Reese RN Position: [facility] RN Member Role: Primary Care Nurse Name: Celestine Schwartz RN Position: [facility] RN Member Role: Primary Care Nurse Name: Neeta Carpenter RN Position: [facility] RN Member Role: Primary Care Nurse Name: Susie Estrada RN Position: [facility] RN Member Role: Primary Care Nurse Name: Inna Cantor RN Position: [facility] RN Member Role: Primary Care Nurse Name: Chaparrita Pizano DO Position: [facility] Physician (General Medicine) Member Role: PCP Address: Address: [address] [place] [address]- [place] Name: Ning Rolon RN Position: [facility] RN Member Role: Primary Care Nurse Name: Rubi Carrasco RN Position: [facility] SN RN Member Role: Primary Care Nurse Name: Lauryn Holden RN Position: [facility] RN Member Role: Primary Care Nurse Name: Shen Silvestre RN Position: [facility] RN Member Role: Primary Care Nurse Name: Jones Cervantes RN Position: [facility] RN Member Role: Primary Care Nurse Name: Olivia Caputo RN Position: [facility] RN Member Role: Primary Care Nurse Name: Brooklyn Jim RN Position: [facility] RN Member Role: Primary Care Nurse Name: Kimberly Sanotro RN Position: [facility] RN Member Role: Primary Care Nurse Name: Haley Diamond RN Position: [facility] RN Member Role: Primary Care Nurse Name: Ashley Meléndez NP Position: [facility] PCO Associate Professional Member Role: Primary Care Nurse Address: Address: [address] [place] [address] 3rd floor [facility] [place] [address]- Name: Siomara Patricia RN Position: [facility] PCO RN Member Role: Primary Care Nurse Name: Neeta Painter RN Position: [facility] RN Member Role: Primary Care Nurse Name: Edith Drummond RN Position: [facility] RN Member Role: Primary Care Nurse Name: Bailey Espinal RN Position: [facility] AMB Nurse Member Role: Primary Care Nurse Name: Brooklyn Ramsey RN Position: [facility] RN Member Role: Primary Care Nurse Name: Keyla Bright RN Position: [facility] RN Member Role: Primary Care Nurse Name: Beverley Tatum RN Position: [facility] RN Member Role: Primary Care Nurse Name: Mainor Devries RN Position: [facility] RN Member Role: Primary Care Nurse Name: Yarely Richards RN [facility] Sales Representative Member Role: Primary Care Nurse Name: Oralia Massey RN Position: [facility] RN Member Role: Primary Care Nurse Name: Cassie Villanueva RN Position: [facility] RN Member Role: Primary Care Nurse Name: Taiwo Mcgregor RN Position: [facility] RN Member Role: Primary Care Nurse Name: Cally Funes RN Position: [facility] SN RN Member Role: Primary Care Nurse Name: Marina Osorio Position: [facility] RN Member Role: Primary Care Nurse Name: Lisa Blanton RN Position[facility] Sales [facility] Member Role: Primary Care Nurse Name: Danica Stuart RN Position: [facility] AMB Nurse Member Role: Primary Care Nurse Name: Virginia Bacon RN Position: [facility] RN Member Role: Primary Care Nurse Name: Shruthi Ray RN Position: [facility] RN Member Role: Primary Care Nurse Name: Abbe Choe RN Position: [facility] RN Supv Member Role: Primary Care Nurse Name: Farideh Cat LPN Position: [facility] RN Member Role: Primary Care Nurse Name: Janis Morris RN Position[facility] Sales [facility] Member Role: Primary Care Nurse Name: Darrian Chang RN Position: [facility] Member Role: Primary Care Nurse Name: Josef Woods RN Position: [facility] RN Member Role: Primary Care Nurse Name: Siomara Raphael Position: [facility] RN Member Role: Primary Care Nurse Name: Jerry Mcneill RN Position: [facility] RN Member Role: Primary Care Nurse Care Team Related Persons Name: IVAN VILLASENOR Address: [place] [address] Name: REYNALDO KAUR Address: home [address] [place] [address] Name: EMMA SERRANO Address: home [address] [address] Name: PATRICK MATA Address: home [address] [place] [address] Name: FARIDEH POPE Address: [place] [address]
--- OUTSIDE RECORDS SUMMARY | 2022-08-31 01:05 | XMS_ITS | Continuity of Care Document ---
Author Name Unknown Organization [facility] Address [address] [place] [address]- Care Team Providers Care Market Basket Maker Name Role Phone Chaparrita Pizano DO Primary Care Physician [place] [facility] [place]s): 01/21/20 - 02/20/20 [facility] [address] [place] [id number] Allergies, Adverse Reactions, Alerts Substance [...] 1 02/02/07 Given 1Admin Note: manufactured by [employer] Medications albuterol CFC free 90 mcg/inh [...] 11:42:54 EDT, Aerosol, Route to Pharmacy Electronically, [id number], [id number], Compound Start Date: [...] Soft Stop, 02/13/20 9:25:00 EST, Tablet, [facility][id number], Partial fill upon patient request if the [...] 05/05/18 9:38:51 EDT, Route to Pharmacy Electronically, [id number]... Start Date: 05/05/18 Status: Ordered Insulin Glargine [...] each, 2 Refills, Maintenance, 12/05/19 20:53:00 EDT, [facility], 155, cm, 08/20/19 16:31:00 [...] 02/19/20 14:40:00 EST, Route to Pharmacy Electronically, [facility][id number], Partial fill upon patient request, 155, cm, [...] 08/30/17 8:21:42 EDT, Route to Pharmacy Electronically, [id number], [facility][id number] Start Date: 08/30/17 [...] 06/21/18 11:05:15 EDT, Route to Pharmacy Electronically, [id number], [facility] Start Date: 06/21/18 [...]
--- OUTSIDE RECORDS SUMMARY | 2022-08-31 01:05 | XMS_ITS | Continuity of Care Document ---
Author Name Unknown Organization [facility] ter Address [address] [place] [address]- Care Team Providers Care Instrument Lens Generator Name Role Phone JericaChaparrita apple DO Primary Care Physician [place] [facility] [place] Date(s[place] 01/06/21 - 01/06/[address] [address]- Encounter Diagnosis Vertigo(Final) - 01/06/21 Discharge Disposition: A-D/C Home Attending Physician: Marcy Sharpe MD Admitting Physician: Marcy Sharpe MD Referring Physician: Not on Staff, Referring [...] hives itchy throat itchy Persistent Mild Active Compazine shortness of breath Active Tylenol [...] to receive vaccine 2Admin Note: manufactured by [employer] Medications albuterol 0.042% inhalation solution 3 [...] EDT, 08/31/20 13:21:00 EDT, Tablet, [facility]/pharmacy #[id number], Partial fill upon patient request... Start Date: [...] opioid drug. Start Date: 07/27/20 Status: Ordered meclizine 25 mg oral tablet 1 tablet = 25 mg, By Mouth, 3 times a day, PRN for dizziness, for 3 days, # 9 tablet, 0 Refills, Acute 01/09/21 22:41:00 EST, 01/06/21 22:41:00 EST, Tablet, [facility]/pharmacy [facility][id number], Partial fill upon patient request if the prescription is for a schedule II... Start Date: 01/06/21 Stop Date: 01/09/21 Status: Ordered NovoLOG FlexPen 100 units/mL subcutaneous solution See Instructions, Subcutaneous Injection, Use as per sliding scale, 5 Refills, Maintenance, 12/22/18 7:07:37 EST Start Date: 12/22/18 Stop Date: 01/21/19 Status: Ordered ondansetron 4 mg oral tablet, disintegrating = 4 mg, By Mouth, Every 6 hours, PRN Nausea & Vomiting, # 90 tablet, 0 Refills, Maintenance, 04/02/20 9:29:00 EST, Tablet, [facility], Partial fill upon [...] tablet, 1 Refills, Maintenance, 08/31/20 13:22:00 EDT, [facility]/pharmacy #[id number], Partial fill upon patient [...] 08/30/17 8:21:42 EDT, Route to Pharmacy Electronically, [id number], [facility][id number] Start Date: 08/30/17 Status: Ordered Tums 500 mg oral tablet, chewable 500 mg, 1, tablet, Chew, Every 4 hours, PRN, # 180 tablet, Refills 0, Tot. Refills 0, Maintenance, Dyspepsia, 06/21/18 11:05:15 EDT, Route to Pharmacy Electronically, [id number], [facility] 3 Start Date: 06/21/18 Status: Ordered Vitamin [...] WITH PRO LONGED DEPRESSIVE REACTION(Confirmed) 02/03/07 Active [facility] Team Senior Level [...] Range]: 1 2 3 Height 155 cm (01/06/21 6:10 PM) 155 cm (01/06/21 3:49 PM) Weight 127.7 kg (01/06/21 6:10 PM) 127.7 kg (01/06/21 3:49 PM) Oxygen Saturation [94-100 %] 100 % (01/06/21 11:06 PM) 100 % (01/06/21 6:10 PM) 100 % (01/06/21 3:49 PM) Pulse Rate [55-90 bpm] 86 bpm (01/06/21 11:06 PM) 87 bpm (01/06/21 6:10 PM) 87 bpm (01/06/21 3:49 PM) Body Mass Index [18.5-24.99] 53.15 *>HHI* (01/06/21 3:49 PM) Blood Pressure [90-138/55-84 mm Hg] 126/91mm Hg (01/06/21 11:06 PM) 157/99mm Hg *H* (01/06/21 6:10 PM) 157/99mm Hg *H* (01/06/21 3:49 PM) Respiratory Rate [16-30 br/min] 18 br/min (01/06/21 11:06 PM) 18 br/min (01/06/21 6:10 PM) 20 br/min (01/06/21 3:49 PM) Temperature [96.8-100.4 DegF] 98.0 DegF (01/06/21 11:06 PM) 98.0 DegF (01/06/21 6:10 PM) 98.0 DegF (01/06/21 6:10 PM) Mode of Delivery (Oxygen) Room air (01/06/21 11:06 PM) Room air (01/06/21 6:10 PM) Room air (01/06/21 3:49 PM) Temperature Route Oral (01/06/21 11:06 PM) Oral (01/06/21 6:10 PM) Oral (01/06/21 6:10 PM) Dry Weight 127.7 kg (01/06/21 6:10 PM) 127.7 kg (01/06/21 3:49 PM) Social History Social History Type Response Smoking Status Former smoker; Other : quit 04/2015; entered on: 01/30/16 Sex Female
--- OUTSIDE RECORDS SUMMARY | 2022-08-31 01:05 | XMS_ITS | Continuity of Care Document ---
Author Name Unknown Organization [facility] ter Address [address] [place] [address]- Care Team Providers Care Receiver Dispatcher Name Role Phone Darryl Pizano DOdavidradha Gupta Primary Care Physician [place] [facility] [place](s): 12/28/21 - 03/19/[address] [address]- Attending Physician: Donald Murphy MD Admitting Physician: [...] to receive vaccine 2Admin Note: manufactured by [employer] Medications albuterol 0.042% inhalation solution 3 [...] 03/12/22 12:08:00 EST, Route to Pharmacy Electronically, [facility], Partial fill upon [...] 03/09/23 23:00:00 EST, 03/12/22 12:09:00 EST, Syrup, [facility], Partial fill upon [...] 03/09/23 23:00:00 EST, 03/12/22 12:10:00 EST, Patch, [facility], Partial fill upon [...] tablet, 0 Refills, Maintenance, 04/02/20 9:29:00 EST, [facility], Partial fill upon patient request if [...] 03/12/22 12:06:00 EST, Route to Pharmacy Electronically, [facility], Partial fill uponpatient request if the [...] 06/21/18 11:05:15 EDT, Route to Pharmacy Electronically, [id number], [facility] Start Date: 06/21/18 Status: Ordered Vitamin [...] WITH PROLONGED DEPRESSIVE REACTION Confirmed 02/03/07 Active [facility] [place] Team Senior Level Patient Confirmed Active ASTHMA [...] Role: Lifetime Consulting Physician Address: Address: [address] [place] [address], [address] [facility] [place] [address]- Name: Lashon Lovell RN Position: [facility] SN RN Member Role: Primary Care Nurse Name: Kristi Giraldo RN Position: [facility] RN Supv Member Role: Primary Care Nurse Name: Jerrod Casarez RN Position: [facility] RN Member Role: Primary Care Nurse Name: Shane Riley RN Position: [facility] RN Member Role: Primary Care Nurse Name: Isac Plascencia RN Position: [facility] RN Member Role: Primary Care Nurse Name: Rosalva Martin RN Position: [facility] RN Member Role: Primary Care Nurse Name: Sheela Matt RN Position: [facility] [...] (General Medicine) Member Role: PCP Address: Address: [address] [place] [address] [place] [address]- Name: Ning Rolon RN [facility] [...] Role: Primary Care Nurse Address: Address: [address] [place] [address]- Name: Siomara Patricia RN [facility] [...] Nurse Member Role: Primary Care Nurse Name: Boroklyn Ramsey RN Position: [facility] [...] Care Nurse Name: Yarely Richards RN Position: [facility] Hospital Enrollment Management Manager Member Role: Primary Care Nurse Name: Oralia Massey RN Position: [facility] RN Member Role: Primary Care Nurse Name: Cassie Villanueva RN Position: [facility] RN Member Role: Primary Care Nurse Name: Taiwo Mcgregor RN Position: [facility] RN Member Role: Primary Care Nurse Name: Cally Funes RN Position: [facility] RN Member Role: Primary Care Nurse Name: Marina Osorio Position: [facility] RN Member Role: Primary Care Nurse Name: Lisa Blanton RN Position: [facility] Enrollment Management Manager Member Role: Primary Care Nurse Name: Danica Stuart RN Position: [facility] AMB Nurse Member Role: Primary Care Nurse Name: Virginia Bacon RN Position: [facility] [...] Janis Morris RN Position: [facility] Enrollment Management Manager Member Role: Primary Care Nurse Name: Darrian Chang RN Position: [facility] Enrollment Management Manager Member Role: Primary Care Nurse Name: Josef Woods RN Position: [facility] RN Member Role: Primary Care Nurse Name: Siomara Raphael Position: [facility] RN Member Role: Primary Care Nurse Name: Jerry Mcneill RN Position: [facility] RN Member Role: Primary Care Nurse Care Team Related Persons Name: IVAN VILLASENOR Address: [place] [address] Name: REYNALDO KAUR Address: [address] [place] [address] Name: EMMA SERRANO Address: home [address] [address] Name: PATRICK MATA Address: [address] [place] [address] Name: FARIDEH POPE Address: [place] [address]
--- OUTSIDE RECORDS SUMMARY | 2022-08-31 01:05 | XMS_ITS | Continuity of Care Document ---
Author Name Unknown Organization [facility] MECHANIC RECOVERY Oncolog y Address [address] [place] [address]- Care Team Providers Care Employee Relations Director Name Role Phone Chaparrita Pizano DO Primary Care Physician Encounter [facility] [place] Date(s): 02/13/20 - 03/14/20 [facility] MECHANIC RECOVERY Oncology [address], [place] [address] Allergies, Adverse Reactions, Alerts Substance [...] 1 02/02/07 Given 1Admin Note: manufactured by [employer] Medications albuterol CFC free 90 mcg/inh [...] 05/05/18 9:38:51 EDT, Route to Pharmacy Electronically, [id number]... Start Date: 05/05/18 Status: Ordered Insulin Glargine [...] 13:02:54 EDT Start Date: 10/10/17 Status: Ordered neomycin 500 mg oral tablet See Instructions, 2 tablet By Mouth at 2 pm, 3 pm and 10 pm day before surgery, # 6 tablet, 0 Refills, Acute 03/15/20 13:37:00 EST, 03/13/20 13:34:00 EST, Tablet, [facility]/pharmacy #[id number], Partial fill upon patient request if the prescription is for a sched... Start Date: 03/13/20 Stop Date: 03/15/20 Status: Ordered NovoLOG FlexPen 100 units/mL subcutaneous [...] 03/04/20 8:13:00 EST, Route to Pharmacy Electronically, [facility]/pharmacy #[id number], Partial fill upon patient [...] 08/30/17 8:21:42 EDT, Route to Pharmacy Electronically, [id number], [facility]/pharmacy #[id number] Start Date: 08/30/17 Status: [...] 06/21/18 11:05:15 EDT, Route to Pharmacy Electronically, [id number], [facility] Start Date: 06/21/18 Status: [...] WITH PRO LONGED DEPRESSIVE REACTION(Confirmed) 02/03/07 Active [facility] Emeral d Team Senior Level [...]
--- OUTSIDE RECORDS SUMMARY | 2022-08-31 01:05 | XMS_ITS | Continuity of Care Document ---
Author Name Unknown Organization [facility] UNEMPLOYMENT INSPECTOR Oncolog y Address [address] [place] [address]- Care Team Providers Care Mother Tester Name Role Phone Jerica Chaparrita DO Primary Care Physician ( [phone] Encounter [facility] [place] Date(s): 04/22/20 - 05/22/20 [facility] UNEMPLOYMENT INSPECTOR Oncology [address] [place], [place] [address] Allergies, Adverse Reactions, Alerts [...] 1 02/02/07 Given 1Admin Note: manufactured by [place] [employer] Medications albuterol 0.042% inhalation solution 3 [...] 0 Refills, Maintenance, 04/03/20 13:23:00 EST, Solution, [facility]/pharmacy #[id number], Partial fill upon patient request if the [...] Refills, Soft Stop, 04/09/20 13:16:00 EST, [facility], Partial fill upon patient [...] Refills, Maintenance, 04/02/20 9:29:00 EST, Tablet, [facility], Partial fill upon patient request if the prescription is for a schedule II opioid drug., 154.94, cm, 0... Start Date: 04/02/20 Status: Ordered oxyCODONE 10 mg oral tablet 2 tablet = 20 mg, By Mouth, Every 6 hours, PRN Pain , Severe, take 1 tab for less severe pain, # 56tablet, 0 Refills, Maintenance, 05/20/20 9:20:00 EDT, Tablet, [facility]/pharmacy #[id number], Partial fill uponpatient request if the prescription [...] 08/30/17 8:21:42 EDT, Route to Pharmacy Electronically, [id number], [facility]/pharmacy #[id number] Start Date: 08/30/17 Status: Ordered Tums 500 mg oral tablet, chewable 500 mg, 1, tablet, Chew, Every 4 hours, PRN, # 180 tablet, Refills 0, Tot. Refills 0, Maintenance, Dyspepsia, 06/21/18 11:05:15 EDT, Route to Pharmacy Electronically, [id number], [facility] Start Date: 06/21/18 Status: [...] DEPRESSIVE REACTION(Confirmed) 02/03/07 Active [facility] Emerarcelia d Team Senior Level [...]
--- OUTSIDE RECORDS SUMMARY | 2022-08-31 01:06 | XMS_ITS | Continuity of Care Document ---
Author Name Unknown Organization [facility] MACHINE TOOL ELECTRICIAN Oncolog y Address [address] [place] [address]- Care Team Providers Care Java Architect Name Role Phone JericaChaparrita apple DO Primary Care Physician [place] [facility] [place] 07[place]23/20 [facility] MACHINE TOOL ELECTRICIAN Oncology [address] [place] [place], [place] [address] Allergies, Adverse Reactions, Alerts [...] 1 02/02/07 Given 1Admin Note: manufactured by [employer] Medications albuterol 0.042% inhalation solution 3 [...] Refills, Soft Stop, 06/23/20 10:08:00 EDT, Tablet, [facility]/pharmacy #[id number], Partial fill upon patient request if the prescription is for a schedule II opioid d... Start Date: 06/23/20 Status: Ordered insulin glargine 100 units/mL subcutaneous solution = 25 units, Subcutaneous Injection, Daily at bedtime, # 12 mL, 0 Refills, Maintenance, 04/03/20 13:23:00 EST, Solution, [facility]/pharmacy #[id number], Partial fill upon patient request [...] 0 Refills, Soft Stop, 04/09/20 13:16:00 EST, [facility], Partial fill upon [...] 0 Refills, Maintenance, 04/02/20 9:29:00 EST, Tablet, [facility], Partial fill upon patient request if the prescription is for a schedule II opioid drug., 154.94, cm, 0... Start Date: 04/02/20 Status: Ordered oxyCODONE 10 mg oral tablet See Instructions, 1 tablet By Mouth 5 times per day for 7 days, per pain services recommedations, #35 tablet, 0 Refills, Maintenance, 06/20/20 8:49:00 EDT, Tablet, [facility]/pharmacy #[id number], Partial fill upon patient request [...] 08/30/17 8:21:42 EDT, Route to Pharmacy Electronically, [id number], [facility]/pharmacy #[id number] Start Date: 08/30/17 Status: Ordered Tums 500 mg oral tablet, chewable 500 mg, 1, tablet, Chew, Every 4 hours, PRN, # 180 tablet, Refills 0, Tot. Refills 0, Maintenance, Dyspepsia, 06/21/18 11:05:15 EDT, Route to Pharmacy Electronically, [id number], [facility] Start Date: 06/21/18 Status: [...] WITH PRO LONGED DEPRESSIVE REACTION(Confirmed) 02/03/07 Active [facility] Emeral d Team Senior Level [...]
--- OUTSIDE RECORDS SUMMARY | 2022-08-31 01:06 | XMS_ITS | Continuity of Care Document ---
Author Name Unknown Organization [facility] Address [address] [place] [address] [address] [place] [address]- Care Team Providers Care Care Mgr Name Role Phone Chaparrita Pizano DO Primary Care Physician [place] [facility] [place]/20/20 - 05/27/[address] [place] [address]- Attending Physician: Sarah Franco MD Referring Physician: [...] 03/09/15 Give n influenza virus vaccine, inactivated 9/16/12 Give n tetanus/diphtheria/pertussis, acel(Tdap) 06/10/17 Given pneumococcal 13-valent vaccine 01/20/15 Given pneumococcal 23-valent vaccine 10/31/11 Given Pneumococcal Poly (PPV23) (oldterm) 02/02/07 Given Influenza Virus Vaccine (oldterm) 1 02/02/07 Given 1Admin Note: manufactured by [employer] Medications albuterol 0.042% inhalation solution 3 [...] Maintenance, 04/03/20 13:23:00 EST, Solution, [facility]/pharmacy #[id number], Partial fill upon patient request if the [...] 0 Refills, Soft Stop, 04/09/20 13:16:00 EST, [facility], Partial fill upon [...] 0 Refills, Maintenance, 04/02/20 9:29:00 EST, Tablet, [facility] 3, Partial fill upon patient request if the prescription is for a schedule II opioid drug., 154.94, cm, 0... Start Date: 04/02/20 Status: Ordered oxyCODONE 10 mg oral tablet 2 tablet = 20 mg, By Mouth, Every 6 hours, PRN Pain , Severe, take 1 tab for less severe pain, # 56tablet, 0 Refills, Maintenance, 05/20/20 9:20:00 EDT, Tablet, [facility]/pharmacy #[id number], Partial fill uponpatient request if the prescription [...] 08/30/17 8:21:42 EDT, Route to Pharmacy Electronically, [id number], [facility]/pharmacy #[id number] Start Date: 08/30/17 Status: Ordered Tums 500 mg oral tablet, chewable 500 mg, 1, tablet, Chew, Every 4 hours, PRN, # 180 tablet, Refills 0, Tot. Refills 0, Maintenance, Dyspepsia, 06/21/18 11:05:15 EDT, Route to Pharmacy Electronically, [id number], [facility] Start Date: 06/21/18 [...] WITH PRO LONGED DEPRESSIVE REACTION(Confirmed) 02/03/07 Active [facility] Emeral d Team Senior Level Patient(Confirmed) [...] recent to oldest [Reference Range]: 1 Height 180 cm (05/20/20 11:04 AM) Weight 125.8 kg (05/20/20 11:04 AM) Body Mass Index [18.5-24.99] 38.83 *>HHI* (05/20/20 11:04 AM) Temperature [96.8-100.4 DegF] 98.2 DegF (05/20/20 11:04 AM) Temperature Route Temporal (05/20/20 11:04 AM) Weight Obtained Via Standing scale (05/20/20 11:04 AM) Social History Social History Type Response Smoking Status Former smoker; Other : quit 04/2015; entered on: 01/30/16 Sex Female
--- OUTSIDE RECORDS SUMMARY | 2022-08-31 01:06 | XMS_ITS | Continuity of Care Document ---
Author Name Unknown Organization [facility] ter Address [address] [place] [address]- Care Team Providers Care Machine Set Up Operator Paper Goods Name Role Phone Jerica DO Darrylumair Candy Primary Care Physician Encounter [facility] [place] Date(s): 08/20/21 - 02/05/[address] [address]- Attending Physician: Donald Murphy MD Admitting Physician: Donald Murphy MD Referring Physician: Donald Murphy MD Allergies, Adverse Reactions, Alerts Substance Reaction Severity Status doxycycline mouth swelling Active ceftriaxone hives Active iodine topical swelling itching Active melatonin Active Zofran 1 can only be given w/ benadryl hives Active Pepcid vomitng Active penicillin throat swelling Rash Persistent Severe Active famotidine vomiting Active morphine 2, 3, 4 hives Active Seafood Anaphylactic shock d ue [...] Lantiseptic Skin Protectant Active Lyrica Angioedema Active 1patient tolerated zofran [...] to receive vaccine 2Admin Note: manufactured by [employer] Medications albuterol 0.042% inhalation solution 3 [...] 09/08/21 13:21:00 EDT, Route to Pharmacy Electronically, [facility], Partial fill [...] 9:29:00 EST, Tablet, [facility], Partial fill upon patient [...] 06/21/18 11:05:15 EDT, Route to Pharmacy Electronically, [id number], [facility] Start Date: 06/21/18 Status: Ordered Vitamin [...] WITH PROLONGED DEPRESSIVE REACTION Confirmed 02/03/07 Active [facility] Team Senior Level Patient Confirmed Active ASTHMA [...] Team Personnel Name: Lola Belcher RN Position: [facility] RN Member Role: Primary Care Nurse Name: Jose Enrique Saul RN Position: [facility] RN Member Role: Primary Care Nurse Name: Symone Mckinnon RN Position: [facility] RN Member Role: Primary Care Nurse Name: Carolyn Pelaez RN Position: [facility] RN Member Role: Primary Care Nurse Name: Deanna Garcia RN Position: [facility] RN Member Role: Primary Care Nurse Name: Fanny Mixon RN Position: [facility] ED RN W/OE and Tasks Member Role: Primary Care Nurse Name: María Ashford RN Position: [facility] AMB Nurse Member Role: Primary Care Nurse Name: Chanelle Hernandez RN Position: [facility] PCO RN Member Role: Primary Care Nurse Name: Estelle García RN Position: [facility] RN Member Role: Primary Care Nurse Name: Deanne Rangel RN Position: [facility] RN Member Role: Primary Care Nurse Name: Carine Jimenez RN Position: [facility] SN RN Member Role: Primary Care Nurse Name: Jenelle Campo RN Position: [facility] RN Member Role: Primary Care Nurse Name: Keyla Godwin RN Position: [facility] RN Member Role: Primary Care Nurse Name: Yeimi Devine RN Position: [facility] RN Member Role: Primary Care Nurse Name: Mary Yan RN Position: [facility] RN Member Role: Primary Care Nurse Name: Iliana Pop RN Position: [facility] RN Member Role: Primary Care Nurse Name: Alcides Dueñas RN Position: [facility] RN Member Role: Primary Care Nurse Name: Lisa Beatty Position: [facility] Outreach Member Role: Lifetime Consulting Physician Name: Armida Beatty RN Position: [facility] RN Member Role: Primary Care Nurse Name: Roque Villasenor MD Position: [facility] Renal MD Member Role: Lifetime Consulting Physician Address: Address: [address] [place] [address], [address] [facility] [place], [place] [address] Name: Lashon Lovell RN Position: [facility] SN RN Member Role: Primary Care Nurse Name: Kristi Giraldo RN Position: [facility] RN Supv Member Role: Primary Care Nurse Name: Jerrod Casarez RN Position: [facility] RN Member Role: Primary Care Nurse Name: Rosalva Martin RN Position: [facility] RN Member Role: Primary Care Nurse Name: Armida Ochoa RN Position: [facility] RN Member Role: Primary Care Nurse Name: Deonna Murillo RN Position: [facility] RN Member Role: Primary Care Nurse Name: Felipa Diehl RN Position: [facility] HBO Wound Member Role: Primary Care Nurse Name: Evelin Powell RN Position: [facility] AMB Nurse Member Role: Primary Care Nurse Name: Deonna Pendleton RN Position: [facility] RN Member Role: Primary Care Nurse Name: Pili Kaba RN Position: [facility] RN Member Role: Primary Care Nurse Name: Alejandro Yanes RN Position: [facility] RN Member Role: Primary Care Nurse Name: Stacey Díaz RN Position: [facility] SN RN Member Role: Primary Care Nurse Name: Jac Reese RN Position: [facility] RN Member Role: Primary Care Nurse Name: Celestine Schwartz RN Position: [facility] RN Member Role: Primary Care Nurse Name: Neeta Carpenter RN Position: [facility] RN Member Role: Primary Care Nurse Name: Susie Estrada RN Position: [facility] RN Member Role: Primary Care Nurse Name: Inna Cantor RN Position: [facility] RN Member Role: Primary Care Nurse Name: Chaparrita Pizano DO Position: [facility] Physician (General Medicine) Member Role: PCP Address: Address: [address] [place] [address]- Name: Ning Rolon RN Position: [facility] RN Member Role: Primary Care Nurse Name: Rubi Carrasco RN Position: [facility] SN RN Member Role: Primary Care Nurse Name: Lauryn Holden RN Position: [facility] RN Member Role: Primary Care Nurse Name: Shen Silvestre RN Position: [facility] RN Member Role: Primary Care Nurse Name: Jones Cervantes RN Position: [facility] RN Member Role: Primary Care Nurse Name: Olivia Caputo RN Position: [facility] RN Member Role: Primary Care Nurse Name: Brooklyn Jim RN Position: [facility] RN Member Role: Primary Care Nurse Name: Kimberly Santoro RN Position: [facility] RN Member Role: Primary Care Nurse Name: Haley Diamond RN Position: [facility] RN Member Role: Primary Care Nurse Name: Ashley Meléndez NP Position: [facility] PCO Associate Professional Member Role: Primary Care Nurse Address: Address: [address] [place] [address]- Name: Siomara Patricia RN Position: [facility] PCO RN Member Role: Primary Care Nurse Name: Neeta Painter RN Position: [facility] RN Member Role: Primary Care Nurse Name: Edith Drummond RN Position: [facility] RN Member Role: Primary Care Nurse Name: Bailey Espinla RN Position: [facility] QUAN Nurse Member Role: Primary Care Nurse Name: Brooklyn Ramsey RN Position: [facility] RN Member Role: Primary Care Nurse Name: Keyla Bright RN Position: [facility] RN Member Role: Primary Care Nurse Name: Beverley Tatum RN Position: [facility] RN Member Role: Primary Care Nurse Name: Mainor Devries RN Position: [facility] RN Member Role: Primary Care Nurse Name: Yarely Richards RN Position: [facility] Fha Underwriter Member Role: Primary Care Nurse Name: Oralia Massey RN Position: [facility] RN Member Role: Primary Care Nurse Name: Rich WILSON pee Position: [facility] RN Member Role: Primary Care Nurse Name: Taiwo Mcgregor RN Position: [facility] RN Member Role: Primary Care Nurse Name: Cally Funes RN Position: [facility] SN RN Member Role: Primary Care Nurse Name: Marina Osorio Position: [facility] RN Member Role: Primary Care Nurse Name: Lisa Blanton RN Position: [facility] Fha Underwriter Member Role: Primary Care Nurse Name: Danica Stuart RN Position: [facility] AMB Nurse Member Role: Primary Care Nurse Name: Shruthi Ray RN Position: [facility] RN Member Role: Primary Care Nurse Name: Abbe Choe RN Position: [facility] RN Supv Member Role: Primary Care Nurse Name: Farideh Cat LPN Position: [facility] RN Member Role: Primary Care Nurse Name: Janis Morris RN Position: [facility] Fha Underwriter Member Role: Primary Care Nurse Name: Darrian Chang RN Position: [facility] Fha Underwriter Member Role: Primary Care Nurse Name: Jerry Mcneill RN Position: [facility] RN Member Role: Primary Care Nurse Care Team Related Persons Name: IVAN VILLASENOR Address: [place] [address] Name: REYNALDO KAUR Address: home [address] [place] [address] Name: EMMA SERRANO Address: home [address] [address] Name: PATRICK MATA Address: home [address] [place] [address] Name: FARIDEH POPE Address: [place] [address]
--- OUTSIDE RECORDS SUMMARY | 2022-08-31 01:06 | XMS_ITS | Continuity of Care Document ---
Author Name Unknown Organization [facility] ter Address [address] [place] [address]- Care Team Providers Care Athletic Scout Name Role Phone Darryl Pizano DOdavidradha Gupta Primary Care Physician ( [phone] [facility] [place] - 11/20/[address] [address]- Attending Physician: Donald Murphy MD Admitting Physician: [...] to receive vaccine 2Admin Note: manufactured by [employer] Medications albuterol 0.042% inhalation solution 3 [...] 09/08/21 13:21:00 EDT, Route to Pharmacy Electronically, [facility], Partial fill upon patient [...] 08/31/22 13:22:00 EDT, 08/31/20 13:21:00 EDT, Syrup, [facility]/pharmacy #[id number], Partial fill upon patient request [...] Refills, Maintenance, 04/02/20 9:29:00 EST, Tablet, [facility], Partial fill upon [...] 06/21/18 11:05:15 EDT, Route to Pharmacy Electronically, [id number], [facility] Start Date: 06/21/18 Status: [...] WITH PROLONGED DEPRESSIVE REACTION Confirmed 02/03/07 Active [facility] Petron[facility] Team Senior Level Patient Confirmed Active ASTHMA [...] Personnel Name: Chaparrita Pizano DO Address: Address: [address] [place] [address] [place], [place] [address]
--- OUTSIDE RECORDS SUMMARY | 2022-08-31 01:06 | XMS_ITS | Continuity of Care Document ---
Author Name Unknown Organization [facility] ter Address [address] [place] [id number]- Care Team Providers Care Fur Mixer Operator Name Role Phone Chaparrita Pizano DO Primary Care Physician Encounter [facility] [place] Date(s): 12/22/21 - 12/23/[address] [id number]- Encounter Diagnosis Periapical abscess(Final) - 12/22/21 Discharge Disposition: Discharge Spec Fac/Child or Cancer Ctr Attending Physician: Kurt SHERIFF, Angela Hughes Admitting Physician: Jeremias SHERIFF, Jad P Referring Physician: Not on Staff, Referring MD [...] Active Adhesive Bandage skin excoriation hives Active Latex vag rash Active Seafood Anaphylactic shock d ue to adverse food reaction Severe Active Nexium diarrhea, vomitting Active Levaquin tingling in mouth, rash Acti ve Compazine shortness of breath Active Tylenol hives Active Reglan severe restless legs Active Contrast Dye hives itchy throat itchy Persistent Mild Active Nicotine Patch ana cardia Active Lantiseptic [...] to receive vaccine 2Admin Note: manufactured by [employer] Medications albuterol [...] 09/08/21 13:21:00 EDT, Route to Pharmacy Electronically, [facility], Partial fill upon patient request if the prescr... Start Date: 09/08/21 Stop Date: 10/08/21 Status: Ordered clindamycin 150 mg oral capsule 1 capsule = 150 mg, By Mouth, Every 6 hours, for 7 days, Physician Stop 12/30/21 15:17:00 EST Start Date: 12/23/21 Stop Date: 12/30/21 Status: Ordered Dilaudid Inj 2 mg, Injection, IV Push Slowly, Every 4 hours, PRN for Pain , Severe, Routine, 12/23/21 8:47:00 EST Start Date: 12/23/21 Stop Date: 12/30/21 Status: Ordered HYDROmorphone 1 mg/mL oral liquid 4 mL = 4 mg, By Mouth, Every 6 hours, PRN as needed for pain, 0 Refills, Maintenance, 12/23/21 15:07:00 EST, Liquid, Partial fill upon patient request if the prescription is for a schedule II opioid drug. Start Date: 12/23/21 Status: Ordered HYDROmorphone Inj 2 mg, Injection, IV Push Slowly, Once, PRN for Pain , Severe, Routine, 12/23/21 19:22:00 EST Start Date: 12/23/21 Stop Date: 12/23/21 Status: Completed Insulin Glargine = 35 units, Subcutaneous Injection, [...] Refills, Maintenance, 04/02/20 9:29:00 EST, Tablet, [facility], Partial fill upon patient [...] 06/21/18 11:05:15 EDT, Route to Pharmacy Electronically, [id number], [facility] Start Date: 06/21/18 Status: [...] WITH PROLONGED DEPRESSIVE REACTION Confirmed 02/03/07 Active [facility] Team Senior Level Patient Confirmed Active ASTHMA [...] mellitus), type 2, uncontrolled Confirmed Active Results Orders for Microbiology Reports Name Date Blood Culture 12/22/21 Blood Culture #2 12/22/21 Microbiology Reports TEST:Blood Culture, Second Order STATUS:Unauthenticated BODY SITE: SOURCE:Blood COLLECTED DATE/TIME:12/22/21 5:10 PM Blood Culture, Second Order SPECIMEN DESCRIPTION : BLOOD L ARM SPECIAL REQUESTS : NONE CULTURE : NO GROWTH AFTER 24 HOURS REPORT STATUS : PRELIMINARY REPORT TEST:Blood Culture STATUS:Unauthenticated BODY SITE: SOURCE:Blood COLLECTED DATE/TIME:12/22/21 3:47 PM Blood Culture SPECIMEN DESCRIPTION : BLOOD SPECIAL REQUESTS : NONE CULTURE : NO GROWTH AFTER 24 HOURS REPORT STATUS : PRELIMINARY REPORT Radiology Reports * Exam Date Time Procedure Performing Provider Status 12/23/21 11:45 AM Chest Portable Manny Babcock; Auth (Verified) Notes: (Chest Portable) Reason For Exam: PICC line;Tube Placement RESULT: Chest Portable Chest Portable Reason: Tube Placement; PICC line; Clinical Question(s): Tube Placement COMPARISON: Multiple prior examinations the most recent dated 11/09/2021. FINDINGS: Limited examination due to the patient's large body habitus. LINES AND TUBES: Right IJ Port-A-Cath in place with its tip in the region of the cavoatrial junction in satisfactoryposition unchanged. Right upper extremity PICC line in place with tip slightly advanced since the prior examination andthe tip is at the region of the junction of the right and left innominate veins. Further advancement may be helpful. LUNGS AND PLEURA: Low lung volumes. Clear lungs. Normal pulmonary vascularity. No pleural effusion. No pneumothorax. HEART, MEDIASTINUM AND LISA: Heart is normal in size. Normal mediastinal and hilar contour. BONES AND SOFT TISSUES: No acute abnormality. IMPRESSION: The right-sided upper extremity PICC line has been slightly advanced with its tip seen at the region of the junction of the right and left innominate veins. Low lung volumes appearing. WSN: [id number] Ordering Physician: Melanie Wick Dictated By: Otis Kelly MD, V Dictated Date/Time: 12/23/21 1:35 pm Reviewed By: Otis Kelly MD, V Signed By: Otis Kelly MD, V Signed Date/Time: 12/23/21 1:35 pm Transcribed By: DEIDRE Transcribed Date/Time: 12/23/21 1:33 pm * Exam Date Time Procedure Performing Provider Status 12/22/21 4:[address] Maxilloface W/ Contrast Barrera; Auth (Verified) Notes: (CT Maxilloface W/ Contrast) Reason For Exam: Pain RESULT: CT Maxilloface W/ Contrast CT Maxilloface W/ Contrast INDICATION: Broken tooth with right sided facial swelling and fever, concern for infection. IMAGING TECHNIQUE: Multidetector spiral CT with contrast, formatted in 3 planes. Automatic tube modulation and/or iterative dose reconstruction were used optimize scan parameters. CTDIvol Head: 25.80 mGy, DLP Head: 547 mGy*cm. COMPARISON: None FINDINGS: Periapical lucency and focus of air in the right mandibular first molar. There is diffuse soft tissue swelling, inflammatory changes, and fat stranding in the buccal soft tissue adjacent to the rightmandible. 0.5 x 1.6 cm well- circumscribed lesion. with no rim enhancement along the lateral right mandible (image 77 series 203), which may represent edema or early developing abscess. Mild swelling/inflammation of the right masseter muscle compared to the left. Submandibular and parotid glands appear normal. Orbits appear normal. Paranasal sinuses are clear. Mastoid air cells are clear. No abnormality of the partially included upper cervical spine. IMPRESSION: Periapical lucency and focus of air in the right mandibular first molar with diffuse soft tissue swelling, inflammatory changes, and fat stranding in the soft tissue adjacent to the right mandible, as well as mild inflammatory changes of the right masseter muscle, concerning for infection. 1.6 cm well-circumscribed lesion along the lateral right mandible, which may represent edema, phlegmon or early developing abscess. No rim enhancement - this may not yet be organized/drainable. A critical result message (Dimmit) has been communicated via the [employer] system on 12/22/2021 4:51 PM, Message ID [id number]. I have personally reviewed the images and I agree with this report. WSN: [id number] Ordering Physician: Bailey Molina Dictated By: Syed Valencia MD Dictated Date/Time: 12/22/21 4:51 pm Reviewed By: Lauren Sims MD Signed By: Lauren Sims MD Signed Date/Time: 12/22/21 4:56 pm Transcribed By: DEIDRE Transcribed Date/Time: 12/22/21 4:48 pm Vital Signs Most recent to oldest [Reference Range]: 1 2 3 Height 154 cm (12/23/21 8:24 PM) 154 cm (12/23/21 9:21 AM) Weight 121 kg (12/23/21 9:21 AM) Oxygen Saturation [94-100 %] 100 % (12/23/21 8:24 PM) 98 % (12/23/21 2:00 PM) 98 % (12/23/21 8:00 AM) Pulse Rate [55-90 bpm] 113 bpm *H* (12/23/21 8:24 PM) 102 bpm *H* (12/23/21 2:00 PM) 76 bpm (12/23/21 9: AM) Body Mass Index [18.5-24.99 kg/m2] 51.02 kg/m2 *>HHI* (12/23/21: AM) Blood Pressure [90-138/55-84 mm Hg] 148/98mm Hg *H* (12/23/21 8:24 PM) 127/56mm Hg (12/23/21 2:00 PM) 126/103mm Hg (12/23/21 9: AM) Respiratory Rate [16-30 br/min] 16 br/min (12/23/21 8:32 PM) 16 br/min (12/23/21 8:24 PM) 18 br/min (12/23/21 7:25 PM) Temperature [96.8-100.4 DegF] 98.3 DegF (12/23/21 8:24 PM) 98.9 DegF (12/23/21 2:00 PM) 98.4 DegF (12/23/21 9:21 AM) Mode of Delivery (Oxygen) Room air (12/23/21 8:24 PM) Room air (12/23/21 2:00 PM) Room air (12/23/21 8:00 AM) Blood pressure sites Arm, left (12/23/21 8:24 PM) Arm, left (12/23/21 2:00 PM) Arm, left (12/23/21:21 AM) Temperature Route Axillary (12/23/21 8:24 PM) Oral (12/23/21 2:00 PM) Oral (12/23/21 9:21 AM) Dry Weight 121 kg (12/23/21 9: AM) Social History Social History Type Response Smoking Status Former smoker; Other : quit 04/2015; entered on: 01/30/16 Sex Female Consult note * Pili Suh MD: PERFORM Event Display: Consult Authored Date: [id number] Patient: ??ZACH, VILMA ? Age:??46 Years?Sex:??Female?:??1975?? Chief Complaint/Reason for Consult Periapical abscess History of Present Illness Vilmajana Brown is a 46yo female w/ PMH COPD, T2IDDM, partial small bowel obstruction, recurrent TPN requirements, HTN who was admitted to the hospital for a right periapical abscess. Plastic surgery was consulted for worsening R sided facial swelling. The patient reports that sometime late last week, she broke her right first mandibular molar, and over the weekend, developed ongoing pain over thatsite. On Tuesday morning (two days ago), the patient awoke with significantly worsened swelling and pain over the right mandible as well as intermittent low-grade fevers. She presented to her dentist who prescribed her oral antibiotics and referred her to an oral maxillofacial surgeon for ongoing management. However, the following day, her VNA noted increasing swelling extending up the cheek and across the neck. Given the severity of her symptoms, her PCP counseled her to present to the ED on 12/22. In the ED, CT max/face showed a periapical lucency surrounding the right first mandibular molar as well as significant surrounding soft tissue swelling. A 1.6cm area of lucency along the lateral mandibular body was noted, concerning for edema versus phlegmon vs early abscess formation. The patient was noted to have a normal WBC. She was started on IV clindamycin then admitted for ongoing management. ?? Today, the patient reports that her right facial/neck swelling has progressed since she was admitted. She reports severe right-sided facial pain and tenderness with even light touch of the overlying skin. She reports worsening pain with attempts to open her mouth, and is not able to open her mouth normally due to pain. She does report green/ibarra murky drainage from her mouth, which is new today. She continues to feel feverish. She denies any N/V, facial numbness/tingling, visual changes or pain w/ extraocular eye movements, contralateral facial pain. She also denies difficulty breathing, CP or SOB. Review of Systems As per above Physical Exam Vitals & Measurements T:??98.9?F ?? VA:??102?? RR:??18?? BP:??127/56?? SpO2:??98%?? HT:??154??cm?? WT:??121??kg?? BMI:??51.02?? General: Alert and oriented, in no acute distress Eyes: PERRL, EOMI Cardiovascular: Palpable peripheral pulses, normal rate and rhythm Respiratory: No increased work of breathing, no audible wheezing Abdomen: Obese, soft MSK: Moves all extremities Skin: WWP ?? PRS-Focused Exam: Significant right-sided facial swelling extending from malar eminence along mandibular border and inferiorly along upper neck, also extending??from overlying the right parotid gland and TMJ??posteriorly??to midline submental region w/ mild blanching erythema and induration, significant tenderness and hypersensitivity to light touch over same area, no open or draining cutaneous wounds or focal areas of fluctuance, several missing teeth intraorally, intra- oral exam limited d/t discomfort with exam but visible milky green discharge visible surrounding right mandibular molar, CN V1-V3 and VII intact bilaterally Assessment/Plan Vilma Brown is a 46yo female who was admitted to the hospital on 12/22 after developing a periapical abscess 2/2 breaking her right first mandibular molar several days prior to presentation. Plasticsurgery was consulted for management of worsening right-sided facial swelling and pain. Upon reviewof the patient's imaging and examination, the source of her worsening infection is infection of thebroken right mandibular first molar. The patient is in need of surgical drainage and washout with source control via removal of the infected tooth. Given the potential severe complication of necrotizing infection and Gildardo's angina if this goes untreated, we recommend that the patient be transferred to a referral center that has oral maxillofacial surgeons capable of managing this infection. In the interim, we recommend continuing IV abx per the primary team. ?? The plan was discussed with attending, Jayden Donald MD. ?? Pili Suh MD Problem List/Past Medical History Ongoing Abdominal pain Abscess ADJUSTMENT REACTION WITH PROLONGED [...] no longer needed Trigger point of abdomen [facility] [place] Team Senior Level Patient Historical CELLULITIS AND ABSCESS OF TRUNK Chronic pelvic pain in female Morbid obesity OBESITY Procedure/Surgical History EGD - Esophagogastroduodenoscopy: 09/02/21 Colonoscopy, flexible, [...] Abdominal wall reconstruction Tubal ligation Ganglion cyst Home Medications Albuterol: 2 puffs, Inhalation, 4 times a day, PRN (for wheezing) Albuterol: 1.25 mg = 3 mL, Neb, 4 times a day, PRN (Wheezing/Shortness of Breath) Bisacodyl: 5 mg = 1 tablet, By Mouth, Daily Calcium Carbonate: 500 mg = 1 tablet, Chew, Every 4 hours, PRN (Dyspepsia) Cholecalciferol: 2,000 International_Units = 1 capsule, By Mouth, 3 times a day Clindamycin: 150 mg = 1 capsule, By Mouth, Every 6 hours DiphenhydrAMINE: 50 mg = 1 capsule, By Mouth, 4 times a day, PRN (as needed for itching) Docusate-Senna: 2 tablet, By Mouth, Daily at bedtime Hydromorphone: 4 mg = 4 mL, By Mouth, Every 6 hours, PRN (as needed for pain) Insulin Aspart: See Instructions, Subcutaneous Injection, Use as per sliding scale Insulin Glargine: 35 units, Subcutaneous Injection, 2 times a day Lactulose: 20 Gm = 30 mL, By Mouth, 3 times a day Lorazepam: 0.5 mg = 1 tablet, By Mouth, Daily at bedtime Ondansetron: 4 mg, By Mouth, Every 6 hours, PRN (Nausea & Vomiting) Pantoprazole: 40 mg = 1 tablet, By Mouth, Daily Potassium Chloride: 8 mEq = 1 capsule, By Mouth, Daily Propranolol: 120 mg = 1 capsule, By Mouth, Daily at bedtime Simvastatin: 40 mg = 1 tablet, By Mouth, Daily at bedtime Sucralfate: 1 Gm = 1 tablet, By Mouth, 3 times a day before meals and bedtime Sumatriptan: 50 mg = 1 tablet, By Mouth, Daily, PRN (for migraine headache), may repeat dose after 2 hours up to a maximum of 2 Allergies Seafood??(Anaphylactic shock due to adverse food reaction) Contrast Dye??(hives, itchy throat, itchy) penicillin??(throat swelling, Rash) Adhesive Bandage??(skin excoriation, hives) Compazine??(shortness of breath) Lantiseptic Skin Protectant Latex??(vag rash) Levaquin??(tingling in mouth, rash) Lyrica??(Angioedema) Nexium??(diarrhea, vomitting) Nicotine Patch??(ana cardia) Pepcid??(vomitng) Reglan??(severe restless legs) Tylenol??(hives) Zofran??(can only be given w/benadryl, hives) ceftriaxone??(hives) doxycycline??(mouth swelling) famotidine??(vomiting) iodine topical??(swelling itching) melatonin morphine??(hives) Social History Alcohol Use: Past., 12/07/2014 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 Regular exercise: No., 01/29/2019 Home/Environment Living situation: Home/Independent. Lives with: Significant other, Cousin., 01/29/2019 Nutrition/Health Caffeine intake amount: Minimal Fiber., 01/29/2019 Sexual Sexually involved in last 6 months: Yes. Sexual orientation: Homosexual., 10/31/2015 Substance Abuse Use: Past. Other: occasional edibles., 12/06/2021 Tobacco Former smoker, Other: quit 04/2015., 01/30/2016 Family History Mother: Asthma; Degenerative disc disease; Endometriosis; Hypertension Lab Results Labs Last 24 Hours BLOOD COUNT & DIFF ? Event Name?? Event Result?? Date/Time?? WBC 9.8 k/mm3 12/23/21 10:29:00 RBC 3.82 m/mm3??Low 12/23/21 10:29:00 Hgb 10.6 Gm/dL??Low 12/23/21 10:29:00 Hct 33.5 %??Low 12/23/21 10:29:00 MCV 87.7 femtoliters 12/23/21 10:29:00 MCH 27.7 pg 12/23/21 10:29:00 MCHC 31.6 g/dL??Low 12/23/21 10:29:00 Platelet Count 339 k/mm3 12/23/21 10:29:00 MPV 9.5 femtoliters 12/23/21 10:29:00 Nucleated RBC (Automated) 0 #/100 WBC'S 12/23/21 10:29:00 ? CHEM GENERAL ? Event Name?? Event Result?? Date/Time?? Sodium 138 mmol/L 12/23/21 10:29:00 Chloride 103 mmol/L 12/23/21 10:29:00 Bicarbonate Level 25 mmol/L 12/23/21 10:29:00 Anion Gap 10 12/23/21 10:29:00 Glucose Level 150 mg/dL??High 12/23/21 10:29:00 BUN 15 mg/dL 12/23/21 10:29:00 Creatinine-Blood 0.6 mg/dL 12/23/21 10:29:00 ? Admission evaluation note * Jas SHERIFF, Shayna Chambers: MODIFY, PERFORM, MODIFY Event Display: Admission Note Authored Date: [id number] Patient: ??LOVING, VILMA ? Age:??46 Years?Sex:??Female?:??1975?? Chief Complaint/Reason for Consultation AOx3 coming from home on OP abx, reports worsening pain. PCP advised to go to ER for R/o sepsis VS do not meet criteria. well appearing. History of Present Illness ??46-year-old female with extensive past medical and surgical history of HTN, HLD, diabetes mellitus, morbid obesity, GERD, erosive gastritis, asthma, COPD, AURELIO, obesity hypoventilation syndrome, fibromyalgia, migraines, bipolar disorder, chronic abdominal pelvic pain syndrome, chronic interstitialcystitis, neurogenic bladder, history of optic neuritis, endometriosis/adenomyosis s/p total abdominal hysterectomy and also got bilateral salpingo-oophorectomy later.?? History of recurrent small bowel obstruction s/p exploratory laparotomy with lysis of adhesions and further mesh removal x multiple times.?? Chronic hypomagnesemia due to GI losses weekly received 2 times IV magnesium infusions, on chronic TPN came to the ED with complaints of right side swelling and pain of the face. ?? Patient's medical chart reviewed, seen and examined at bedside.?? Patient not able to talk clearly and mumbles due to pain in the right side of the face.?? Patient states that she had a dental procedure yesterday and since then has been having right-sided swelling, pain.?? Also had a temp of 101 athome.?? She was started initially on oral clindamycin not able to take anything oral today.?? Denies any cough, sore throat, runny nose, chest pain, shortness of breath, palpitations, abdominal pain.?? Last bowel movement a week ago.?? Patient states significant pain with minimum jaw movement.?? Able to handle her secretions.?? Also having nausea but denies any vomitings.?? Patient states she only takes minimal oral intake through mouth and was on TPN currently receives for about 12 hours.?? Patient also has chronic hypomagnesemia due to GI absorption, she receives 4 g of IV magnesium infusion on Wednesdays and 8 g of magnesium infusion on Saturdays. ?? Initially in the ED patient remains afebrile, HR 24, RR 13, BP 135/55, saturation 98% on room air.?? No leukocytosis WBC of 9.9, Hgb 10.9, PLT 335, electrolytes are normal, BUN/creatinine 13/0.6, blood glucose 170, alk phos 117, AST/ALT 17/12, lactate of 0.9, UA negative, CT of maxillofacial with periapical lucency and foci of air in the right mandibular first molar with diffuse soft tissue swelling, inflammatory changes and fat stranding in the soft tissue adjacent to the right mandible as well as mild inflammatory changes of the right masseter muscle concerning for infection.?? Also found to have 1.6 cm well- circumscribed lesion along the lateral right mandible which could be edema VS p hlegmon or early developing abscess.?? No rim enhancements may not yet be organized/drainable.?? Patient received clindamycin, pain medications with Zofran and Benadryl and will be admitted to inpatient medicine service for further management Review of Systems ?? All the systems are reviewed and are negative, except as above ?? Objective ? Vital Signs?? Temperature: 98.4 DegF (12/22/21 22:59:00) Temperature Route: Oral (12/22/21 22:59:00) Pulse Rate:??97 bpm??High (12/23/21 03:32:00) Respiratory Rate: 16 br/min (12/23/21 03:32:00) Systolic Blood Pressure: 127 mm Hg (12/22/21 23:57:00) Diastolic Blood Pressure: 74 mm Hg (12/22/21 23:57:00) Blood pressure sites: Arm, left (12/22/21 23:57:00) Mean Arterial Pressure: 88 mm Hg (12/22/21 20:53:00) Pulse Pressure: 53 mm Hg (12/22/21 23:57:00) Oxygen Saturation: 96 % (12/23/21 03:32:00) Mode of Delivery (Oxygen): Room air (12/23/21 03:32:00) Early Warning Score: 0 (12/23/21 03:29:28) ? Pain Scores 1 - 10 Pain Scale Score: 10 (12:16) ? Intake/Output? 12/22 22:55 12/23 07:00 12/22 07:00 12/21 07:00 12/20 07:00 ?? 12/23 03:59 12/23 03:59 12/23 06:59 12/22 06:59 12/21 06:59 Intake ? 50 ?0 ? 50 ?0 ?0 Output ?0 ?0 ?0 ?0 ?0 Net Total ? 50 ?0 ? 50 ?0 ?0 ? Precautions No Precautions documented.? Physical Exam ?? Gen-mumbles, complains of pain in the right side of the face,??no drooling. HEENT- Normocephalic, Atraumatic. ??Only able to open her mouth slightly. Neck-Obese Heart-S1S2(+),??regular, no murmurs lungs- Clear, b/l air entry, no wheezing/ Abdomen-soft, nontender,nondistended,??bowel sounds present, No guarding, No rigidity, No rebound tenderness. Extremities-pulses palpable??2+. No pedal edema. No calf tenderness. Neurological- AAO??3. No focal neurological deficits noted. ?? (12/22/2021 16:[address] Maxilloface W/ Contrast) IMPRESSION: ?? Periapical lucency and focus of air in the right mandibular first molar with diffuse soft tissue swelling, inflammatory changes, and fat stranding in the soft tissue adjacent to the right mandible, as well as mild inflammatory changes of the right masseter muscle, concerning for infection. ?? 1.6 cm well-circumscribed lesion along the lateral right mandible, which may represent edema, phlegmon or early developing abscess. No rim enhancement - this may not yet be organized/drainable. Assessment/Plan 46-year-old female with extensive past medical and surgical history of HTN, HLD, diabetes mellitus,morbid obesity, GERD, erosive gastritis, asthma, COPD, AURELIO, obesity hypoventilation syndrome, fibromyalgia, migraines, bipolar disorder, chronic abdominal pelvic pain syndrome, chronic interstitial cystitis, neurogenic bladder, history of optic neuritis, endometriosis/adenomyosis s/p total abdominal hysterectomy and also got bilateral salpingo-oophorectomy later.?? History of recurrent small bowel obstruction s/p exploratory laparotomy with lysis of adhesions and further mesh removal x multipletimes.?? Chronic hypomagnesemia due to GI losses weekly received 2 times IV magnesium infusions, onchronic TPN came to the ED with complaints of right side swelling and pain of the face. Initially in the ED patient remains afebrile, HR 24, RR 13, BP 135/55, saturation 98% on room air.?? No leukocytosis WBC of 9.9, Hgb 10.9, PLT 335, electrolytes are normal, BUN/creatinine 13/0.6, blood glucose 170, alk phos 117, AST/ALT 17/12, lactate of 0.9, UA negative, CT of maxillofacial with periapical lucency and foci of air in the right mandibular first molar with diffuse soft tissue swelling, inflammatory changes and fat stranding in the soft tissue adjacent to the right mandible as well as mild inflammatory changes of the right masseter muscle concerning for infection.?? Also found to have 1.6 cm well- circumscribed lesion along the lateral right mandible which could be edema VS phlegmon or early developing abscess.?? No rim enhancements may not yet be organized/drainable.?? Patient received clindamycin, pain medications with Zofran and Benadryl and will be admitted to inpatientmedicine service for further management ?? Periapical infection - phelgmon vs abscess? Vitals as per unit standards Pain control Zofran as needed with Benadryl Continued on clindamycin??600 mg every 8 hours??IV Follow-up with??blood cultures ENT consulted in the a.m. Closely monitor respiratory status Daily trend fever and WBC count ?? Hypomagnesemia On chronic TPN?? -Patient states she gets??IV magnesium infusions 2 times weekly, receives??4 g of IV magnesium??on Wednesdays and??8 g??on Saturdays Please order??IV magnesium today Night Assistant consult for TPN order, currently patient states??she gets TPN for about 12 hours Pantoprazole 40 mg daily Sucralfate??1 mg 3 times daily with meals ?? Diabetes mellitus Glargine 28 units twice daily??[at home takes 35 units??will only give 80% of her daily requirement] Lispro sliding scale ?? HLD???simvastatin 40 mg daily Asthma/COPD/obesity hypoventilation syndrome/AURELIO???albuterol as needed Lorazepam 0.5 mg daily at bedtime ?? Code???full, confirmed with patient at bedside Diet???n.p.o. DVT prophylaxis???subcu Lovenox ?? Patient seen and examined on 12/23/2021?? Histories Allergies Allergies ?(Active and Proposed Allergies [...] no longer needed Trigger point of abdomen [facility] Senior Level Patient ? Past Surgical [...] of ventral hernia: 2005 Exploratory laparotomy: 2005 Ganglion cyst Cholecystectomy Partial hysterectomy Carpal tunnel release Abdominal wall reconstruction Tubal ligation ? Social History Alcohol Details:??Use: Past. 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 Exercise Details:??Self assessment: Poor condition. ??Regular exercise: No. Home/Environment Details:??Living situation: Home/Independent. ??Lives with: Significant other, Cousin. Nutrition/Health Details:??Caffeine intake amount: Minimal Fiber. Sexual Details:??Sexually involved in last 6 months: Yes. ??Sexual orientation: Homosexual. Substance Abuse Details:??Use: Past. ??Other: occasional edibles. Tobacco Details:??Former smoker, Other: quit 04/2015. ? Family History Mother: Asthma; Degenerative disc disease; Endometriosis; Hypertension ? Medications Home Medications Albuterol (albuterol CFC free 90 mcg/inh inhalation aerosol)?2?puff(s)?Inhalation?4 times a day?as needed?for wheezing Albuterol (albuterol 0.042% inhalation solution)?3?Milliliter?1.25?Milligram?Neb?4 times a day?as needed?Wheezing/Shortness of Breath Bisacodyl (bisacodyl 5 mg oral delayed release tablet)?1?tab(s)?5?Milligram?By Mouth?Daily Calcium Carbonate (Tums 500 mg oral tablet, chewable)?500?Milligram?1?tablet?Chew?Every 4 hours?as needed?Dyspepsia Cholecalciferol (Vitamin D3 2000 intl units oral capsule)?1?capsule?2,000?InternationalUnit?By Mouth?3 times a day DiphenhydrAMINE (Banophen 50 mg oral capsule)?1?capsule?50?Milligram?By Mouth?4 times a day?as needed?as needed for itching Docusate-Senna (Senna Plus 50 mg-8.6 mg oral tablet)?2?tab(s)?By Mouth?Daily at bedtime Insulin Aspart (NovoLOG FlexPen 100 units/mL subcutaneous solution)?See Instructions?Subcutaneous Injection?Use as per sliding scale Insulin Glargine?35?unit(s)?Subcutaneous Injection?2 times a day Lactulose (lactulose 10 gm/15 ml oral syrup)?30?Milliliter?20?gram?By Mouth?3 times a day Lorazepam (LORazepam 0.5 mg oral tablet)?1?tab(s)?0.5?Milligram?By Mouth?Daily atbedtime Methocarbamol (methocarbamol 500 mg oral tablet)?2?tab(s)?1,000?Milligram?By Mouth?4 times a day?for 10?Days Ondansetron (ondansetron 4 mg oral tablet, disintegrating)?4?Milligram?By Mouth?Every 6hours?as needed?Nausea & Vomiting Pantoprazole (pantoprazole 40 mg oral delayed release tablet)?1?tab(s)?40?Milligram?By Mouth?Daily?for 30?Days Potassium Chloride (potassium chloride 8 mEq (600 [...] up to a maximum of 2 ? Inpatient Medications Medications (23) Active SCHEDULED: (11) Clindamycin 600 mg/D5%W 50 mL (premix) (Clindamycin IVPB) ??600 mg 50 mL, IVPB, Every 8 hours Enoxaparin 40 mg Inj (Enoxaparin Inj) ??40 mg 0.4 mL, Subcutaneous Injection, Daily Insulin Glargine 100 units/mL Inj (Insulin Glargine Inj) ??28 units 0.28 mL, Subcutaneous Injection, 2 times a day Insulin Lispro 100 units/mL Inj (3mL) (Insulin LISPRO Sliding Scale) ??2-10 units, Subcutaneous Injection, Every 6 hours Lorazepam 0.5 mg Tablet (LORazepam 0.5 mg oral tablet) ??0.5 mg, By Mouth, Daily at bedtime NaCl 0.9% Flush 3ml (NaCL 0.9% Flush) ??3 mL, IV Push, Every 8 hours Pantoprazole 40 mg EC Tablet (pantoprazole 40 mg oral delayed release tablet) ??40 mg, By Mouth, Daily Propranolol 60 mg CR Capsule (propranolol 60 mg oral capsule, extended release) ??120 mg, By Mouth,Daily at bedtime Simvastatin 20 mg Tablet (simvastatin 20 mg oral tablet) ??40 mg, By Mouth, Daily at bedtime Sucralfate 1 Gm Tablet (Carafate 1 gm oral tablet) ??1 Gm, By Mouth, 3 times a day before meals andbedtime Vitamin D 1000 IU Tablet (cholecalciferol 1000 intl units oral tablet) ??1,000 International_Units,By Mouth, 3 times a day CONTINUOUS: (0) PRN: (12) Acetaminophen 325 mg Tablet (Acetaminophen Tablet) ??650 mg, By Mouth, Every 4 hours Albuterol 90mcg/Inhalation Inhaler HFA (albuterol CFC free 90 mcg/inh inhalation aerosol) ??180 mcg2 puffs, Inhalation, 4 times a day Bisacodyl 5 mg EC Tablet (Bisacodyl Tablet) ??5 mg, By Mouth, Daily Calcium Carbonate 500 mg (Calcium 200 mg) Chewable Tablet (Tums 500 mg oral tablet, chewable) ??500mg 1 tablet, Chew, Every 4 hours Dextromethorphan-Guaifenesin 20 mg-200 mg/10 mL Liqu UD (Robitussin DM Liquid) ??10 mL, By Mouth, Every 4 hours diphenhydrAMINE 50 mg/mL Inj (Benadryl Inj) ??50 mg 1 mL, IV Push, Every 4 hours Melatonin 3 mg Tablet (Melatonin Tablet) ??3 mg, By Mouth, Daily at bedtime NaCl 0.9% Flush 3ml (NaCL 0.9% Flush) ??3 mL, IV Push, Every 8 hours Polyethylene Glycol 17 Gm Powder (MiraLax Powder) ??17 Gm 1 pack/packet, By Mouth, Daily Senna 8.6 mg / Docusate 50 mg tablet (Docusate/Senna Tablet) ??1 tablet, By Mouth, 2 times a day Simethicone 80 mg Chewable Tablet (Simethicone Tablet) ??80 mg, Chew, 3 times a day Sumatriptan 25 mg tablet (SUMAtriptan 25 mg oral tablet) ??50 mg, By Mouth, Daily ? Results Recent Labs BLOOD COUNT & DIFF WBC 9.9 k/mm3 ()?? 12/22/2021 15:47 RBC 3.84 m/mm3 (Low)?? 12/22/2021 15:47 Hgb 10.9 Gm/dL (Low)?? 12/22/2021 15:47 Hct 33.5 % (Low)?? 12/22/2021 15:47 MCV 87.2 femtoliters ()?? 12/22/2021 15:47 MCH 28.4 pg ()?? 12/22/2021 15:47 MCHC 32.5 g/dL (Low)?? 12/22/2021 15:47 Platelet Count 335 k/mm3 ()?? 12/22/2021 15:47 RDW-SD 40.2 femtoliters ()?? 12/22/2021 15:47 MPV 9.7 femtoliters ()?? 12/22/2021 15:47 Nucleated RBC (Automated) 0.0 #/100 WBC'S ()?? 12/22/2021 15:47 Abs. NRBC 0.0 k/mm3 ()?? 12/22/2021 15:47 Abs. Neut 7.2 k/mm3 (High)?? 12/22/2021 15:47 Abs. Lymph 1.8 k/mm3 ()?? 12/22/2021 15:47 Abs. Pershing 0.7 k/mm3 ()?? 12/22/2021 15:47 Abs. Eo 0.2 k/mm3 ()?? 12/22/2021 15:47 Abs. Baso 0.0 k/mm3 ()?? 12/22/2021 15:47 Neut % 72.9 % ()?? 12/22/2021 15:47 Lymph % 17.7 % ()?? 12/22/2021 15:47 Pershing % 6.8 % ()?? 12/22/2021 15:47 Eos % 2.1 % ()?? 12/22/2021 15:47 Baso % 0.2 % ()?? 12/22/2021 15:47 Imm Gran 0.3 % ()?? 12/22/2021 15:47 Abs. Imm Gran 0.0 k/mm3 ()?? 12/22/2021 15:47 ?? CHEM GENERAL Sodium 137 mmol/L ()?? 12/22/2021 15:47 Potassium 4.2 mmol/L ()?? 12/22/2021 15:47 Chloride 101 mmol/L ()?? 12/22/2021 15:47 Bicarbonate Level 23 mmol/L ()?? 12/22/2021 15:47 Anion Gap 13 ()?? 12/22/2021 15:47 Glucose Level 159 mg/dL (High)?? 12/22/2021 15:47 Glucose, POC 170 mg/dL (High)?? 12/23/2021 00:04 BUN 13 mg/dL ()?? 12/22/2021 15:47 Creatinine-Blood 0.6 mg/dL ()?? 12/22/2021 15:47 Estimated GFR Creatinine 111 ML/MIN/1.73 M2 ()?? 12/22/2021 15:47 Calcium 9.3 mg/dL ()?? 12/22/2021 15:47 Magnesium 1.6 mg/dL ()?? 12/22/2021 15:47 Protein, Total 6.7 Gm/dL ()?? 12/22/2021 15:47 Albumin 4.1 Gm/dL ()?? 12/22/2021 15:47 AG Ratio 1.6 ()?? 12/22/2021 15:47 Alkaline Phosphatase 117 units/L (High)?? 12/22/2021 15:47 AST (SGOT) 17 units/L ()?? 12/22/2021 15:47 ALT (SGPT) 12 units/L ()?? 12/22/2021 15:47 Bilirubin, Total 1.0 mg/dL ()?? 12/22/2021 15:47 Lactate 0.9 mmol/L ()?? 12/22/2021 15:47 ?? HEME OTHER Hold Blue Top SPECIMEN DISCARDED AFTER 4 HOURS. ()?? 12/22/2021 15:47 ?? MISC. CHEMISTRY Hold Green Top SPECIMEN DISCARDED AFTER 1 WEEK ()?? 12/22/2021 15:47 ?? UA/URINALYSIS Appear/Color, Urine LIGHT YELLOW ()?? 12/22/2021 16:40 Specific Callao, Urine 1.026 ()?? 12/22/2021 16:40 pH, Urine 6.0 ()?? 12/22/2021 16:40 Albumin, Urine 1+ (Abnormal)?? 12/22/2021 16:40 Glucose, Urine NEGATIVE ()?? 12/22/2021 16:40 Ketones, Urine NEGATIVE ()?? 12/22/2021 16:40 Bilirubin, Urine NEGATIVE ()?? 12/22/2021 16:40 Hemoglobin, Urine NEGATIVE ()?? 12/22/2021 16:40 Nitrite, Urine NEGATIVE ()?? 12/22/2021 16:40 Leukocyte, Urine 3+ (Abnormal)?? 12/22/2021 16:40 Urobilinogen NORMAL mg/dL ()?? 12/22/2021 16:40 WBC's, Urine 7 /HPF (High)?? 12/22/2021 16:40 RBC's, Urine NONE SEEN /HPF ()?? 12/22/2021 16:40 Bacteria SLIGHT HPF (Abnormal)?? 12/22/2021 16:40 Squamous Epith 11 /HPF (High)?? 12/22/2021 16:40 Mucus SLIGHT /LPF ()?? 12/22/2021 16:40 Hold Urine Culture Testing available 48 hours from time of collection. ()?? 12/22/2021 16:40 ?? VIROLOGY COVID-19 by RT-PCR NEGATIVE ()?? 12/22/2021 20:09 ? Urinalysis Albumin, Urine: 1+ Abnormal (16:40) Appear/Color, Urine: LIGHT YELLOW (16:40) Bacteria: SLIGHT Abnormal (16:40) Bilirubin, Urine: NEGATIVE (16:40) Glucose, Urine: NEGATIVE (16:40) Hemoglobin, Urine: NEGATIVE (16:40) Hold Urine Culture: Testing available 48 hours from time of collection. (16:40) Ketones, Urine: NEGATIVE (16:40) Leukocyte, Urine: 3+ Abnormal (16:40) Mucus: SLIGHT (16:40) Nitrite, Urine: NEGATIVE (16:40) pH, Urine: 6 (16:40) RBC's, Urine: NONE SEEN (16:40) Specific Callao, Urine: 1.026 (16:40) Squamous Epith:??11 /HPF??High (16:40) Urobilinogen: NORMAL (16:40) WBC's, Urine:??7 /HPF??High (16:40) ?? Microbiology ?? COVID-19 (Novel Coronavirus), Rapid PCR?? Completed?? Source: Nasal Body Site: Nose Collected Dt/Tm: 12/22/2021 19:12 Last Updated Dt/Tm: 12/22/2021 21:20 ? [1]??CT Maxilloface W/ Contrast; Levi SHERIFF, Lauren Weeks 12/22/2021 16:26 EST Hospital Progress note * Karen EMERSON, Marivel: PERFORM, SIGN, VERIFY Event Display: Progress Note Hospital Authored Date: Patient: VILMA BROWN Age: 46 years Sex: Female : 1975 Associated Diagnoses: None Author: Marivel Jones RN Findings Nursing Data Vital Signs : VITAL SIGNS SECTION 12/23/2021 20:24 EST Temperature 98.3 DegF Temperature Route Axillary Pulse Rate 113 bpm H Respiratory Rate 16 br/min Systolic Blood Pressure 148 mm Hg H Diastolic Blood Pressure 98 mm Hg H Blood pressure sites Arm, left Mean Arterial Pressure 115 mm Hg Pulse Pressure 50 mm Hg Oxygen Saturation 100 % Mode of Delivery (Oxygen) Room air . Evaluation Pt. discharge to . Report called and gaiven to Arely Emerson on floor CB5. Report given to payroll processor Pt. transported via ambulace/EMT. Discharge paperwork given.. Discharge Information Case Management Discharge Plan : Case Management Discharge Plan Data 12/23/2021 20:55 EST Discharge Level of Care at Discharge [facility] * Do SCHOOL STANDARDS COACH, Vi T: MODIFY, MODIFY, PERFORM, MODIFY Event Display: Progress Note Hospital Authored Date: Patient: ??LOVMARIANNA, VILMA ? Age:??46 Years?Sex:??Female?:??1975?? Patient still have significant??right facial swelling??down to the neck, facial pain??now to neck??and right shoulder to the point that she cannot open her mouth.?really tender to touch. ??Patientasked to increase pain medication.?? Able to??control her secretion??and protecting airway, no respiratory??problem Lab and vitals signs stable.?? ESR and CRP??elevated Patient denies any fever,, short of breath ?? 46-year-old female with extensive past medical and surgical history of HTN, HLD, diabetes mellitus,morbid obesity, GERD, erosive gastritis, asthma, COPD, AURELIO, obesity hypoventilation syndrome, fibromyalgia, migraines, bipolar disorder, chronic abdominal pelvic pain syndrome, chronic interstitial cystitis, neurogenic bladder, history of optic neuritis, endometriosis/adenomyosis s/p total abdominal hysterectomy and also got bilateral salpingo-oophorectomy later.?? History of recurrent small bowel obstruction s/p exploratory laparotomy with lysis of adhesions and further mesh removal x multipletimes.?? Chronic hypomagnesemia due to GI losses weekly received 2 times IV magnesium infusions, onchronic TPN came to the ED with complaints of right side swelling and pain of the face. ?? Periapical??of R??mandibular??infection ?phlegmon vs abscess? Pain control Zofran as needed with Benadryl Continued on clindamycin??600 mg every 8 hours??IV Follow-up with??blood cultures Discussed with ENT, ENT said??they do not see mandibular infection. ??Discussed with dentist Dr. Cooley, recommend to consult oral surgery or maxillofacial, Dr. Cifuentes Closely monitor respiratory status Daily trend fever and WBC count ?? The rest of the plan to follow admission note * Do SCHOOL STANDARDS COACH, Melanie T: PERFORM Event Display: Progress Note Hospital Authored Date: Discussed with??maxillofacial plastic surgery Dr. Suh, concerning for periapical abscess. need of surgical drainage and washout with source control via removal of the infected tooth. Given thepotential severe complication of necrotizing infection and Gildardo's angina if this goes untreated, we recommend that the patient be transferred to a referral center that has oral maxillofacial surgeons capable of managing this infection. Note * Marivel Jones RN: PERFORM Event Display: Discharge/Transfer Note Hospital Authored Date: [id number] Nursing Discharge Note Entered On: 12/23/2021 21:03 EST Performed On: 12/23/2021 20:55 EST by Marivel Jones RN Nursing Discharge Note 2 Discharge Time : 12/23/2021 20:55 EST Discharge Level of Care at Discharge : [facility]ty Facility[facility] Name of Receiving Short Term Gen Hosp : Patient Left Unit Via : Ambulance Patient Accompanied Off Unit with : Ambulance/Chair Van Personnel Handover Given to Transport Personnel : Yes DC Instructions Provided & Signed by Pt : Yes Patient Understands D/C Instructions : Yes Patient Instructions Discharge Signed : Yes Did Pt have Specialty Bed or Wound Vac : No Marivel Jones RN - 12/23/2021 20:59 EST * Do SCHOOL STANDARDS COACH, Vi T: MODIFY, MODIFY, MODIFY, MODIFY, MODIFY, PERFORM, MODIFY, MODIFY Event Display: Discharge/Transfer Note Hospital Authored Date: [id number] Patient: ??LOVING, VILMA ? Age:??46 Years?Sex:??Female?:??1975?? Patient Information Discharge Location: [facility] Primary Care Physician: Chaparrita Pizano DO Admit Date/Time: 12/22/21 22:55 Discharge Disposition Discharge Disposition: ??transfer to Discharge Diagnosis Periapical abscess (K04.7) ?? _ Discharge Medications Albuterol (albuterol CFC free 90 mcg/inh inhalation aerosol)?2?puff(s)?Inhalation?4 times a day?as needed?for wheezing Albuterol (albuterol 0.042% inhalation solution)?3?Milliliter?1.25?Milligram?Neb?4 times a day?as needed?Wheezing/Shortness of Breath Bisacodyl (bisacodyl 5 mg oral delayed release tablet)?1?tab(s)?5?Milligram?By Mouth?Daily Calcium Carbonate (Tums 500 mg oral tablet, chewable)?500?Milligram?1?tablet?Chew?Every 4 hours?as needed?Dyspepsia Cholecalciferol (Vitamin D3 2000 intl units oral capsule)?1?capsule?2,000?InternationalUnit?By Mouth?3 times a day Clindamycin (clindamycin 150 mg oral capsule)?1?capsule?150?Milligram?By Mouth?Every 6 hours?for 7?Days DiphenhydrAMINE (Banophen 50 mg oral capsule)?1?capsule?50?Milligram?By Mouth?4 times a day?as needed?as needed for itching Docusate-Senna (Senna Plus 50 mg-8.6 mg oral tablet)?2?tab(s)?By Mouth?Daily at bedtime Hydromorphone (HYDROmorphone 1 mg/mL oral liquid)?4?Milliliter?4?Milligram?By Mouth?Every 6 hours?as needed?as needed for pain Insulin Aspart (NovoLOG FlexPen 100 units/mL subcutaneous solution)?See Instructions?Subcutaneous Injection?Use as per sliding scale Insulin Glargine?35?unit(s)?Subcutaneous Injection?2 times a day Lorazepam (LORazepam 0.5 mg oral tablet)?1?tab(s)?0.5?Milligram?By Mouth?Daily atbedtime Ondansetron (ondansetron 4 mg oral tablet, disintegrating)?4?Milligram?By Mouth?Every 6hours?as needed?Nausea & Vomiting Pantoprazole (pantoprazole 40 mg oral delayed release tablet)?1?tab(s)?40?Milligram?By Mouth?Daily?for 30?Days Potassium Chloride (potassium chloride 8 mEq (600 [...] up to a maximum of 2 ? Medications Started Clindamycin IV Medications Discontinued none Doses Changed none Allergies Allergies ?(Active and Proposed Allergies Only) [...] Unknown severity, Onset: Unknown) ?Reactions: vomiting ? Future Appointments Tuesday 4:40 PM EST ?? With: Tien Astudillo MD Where: [facility] [address] [place] [address] Drive [address] [place] [address]- Hospital Course ??46-year-old female with extensive past medical and surgical history of HTN, HLD, diabetes mellitus, morbid obesity, GERD, erosive gastritis, asthma, COPD, AURELIO, obesity hypoventilation syndrome, fibromyalgia, migraines, bipolar disorder, chronic abdominal pelvic pain syndrome, chronic interstitialcystitis, neurogenic bladder, history of optic neuritis, endometriosis/adenomyosis s/p total abdominal hysterectomy and also got bilateral salpingo-oophorectomy later.?? History of recurrent small bowel obstruction s/p exploratory laparotomy with lysis of adhesions and further mesh removal x multiple times.?? Chronic hypomagnesemia due to GI losses weekly received 2 times IV magnesium infusions, on chronic TPN came to the ED with complaints of right side swelling and pain of the face. ?? Patient's medical chart reviewed, seen and examined at bedside.?? Patient not able to talk clearly and mumbles due to pain in the right side of the face.?? she broke her right first mandibular molar,and over the weekend, developed ongoing pain over that site. On Tuesday morning (two days ago), the patient awoke with significantly worsened swelling and pain over the right mandible as well as intermittent low-grade fevers. She presented to her dentist who prescribed her oral antibiotics and referred her to an oral maxillofacial surgeon for ongoing management. However, the following day, her VNAnoted increasing swelling extending up the cheek and across the neck. Given the severity of her symptoms, her PCP counseled her to present to the ED on 12/22..?? Also had a temp of 101 at home.?? She was started initially on oral clindamycin not able to take anything oral today.?? Denies any cough, sore throat, runny nose, chest pain, shortness of breath, palpitations, abdominal pain.?? Last bowelmovement a week ago.?? Patient states significant pain with minimum jaw movement.?? Able to handle her secretions.?? Also having nausea but denies any vomitings.?? Patient states she only takes minimal oral intake through mouth and was on TPN currently receives for about 12 hours.?? Patient also has chronic hypomagnesemia due to GI absorption, she receives 4 g of IV magnesium infusion on Wednesdays and 8 g of magnesium infusion on Saturdays. ?? Initially in the ED patient remains afebrile, HR 24, RR 13, BP 135/55, saturation 98% on room air.?? No leukocytosis WBC of 9.9, Hgb 10.9, PLT 335, electrolytes are normal, BUN/creatinine 13/0.6, blood glucose 170, alk phos 117, AST/ALT 17/12, lactate of 0.9, UA negative, CT of maxillofacial with periapical lucency and foci of air in the right mandibular first molar with diffuse soft tissue swelling, inflammatory changes and fat stranding in the soft tissue adjacent to the right mandible as well as mild inflammatory changes of the right masseter muscle concerning for infection.?? Also found to have 1.6 cm well- circumscribed lesion along the lateral right mandible which could be edema VS phlegmon or early developing abscess.?? No rim enhancements may not yet be organized/drainable.?? Patient received clindamycin, pain medications with Zofran and Benadryl and will be admitted to inpatientmedicine service for further management Objective Assessment and Plan ?? 46 y.o. lady with a h.o. morbid obesity (BMI = 54.9), DM-2, hypertension, hyperlipidemia, GERD / erosive gastritis (EGD 08/2021, Dr. Whiteside), asthma / COPD / AURELIO / obesity hypoventilation syndrome, bipolar disorder / fibromyalgia / migraines / chronic abdominopelvic pain, chronic interstitial cystitis / neurogenic bladder, h.o. optic neuritis, h.o. endometriosis / adenomyosis s/p diagnostic exploratory laparotomy (03/2005, Dr. Murdock), complicated with postoperative SBO s/p re-do exploratory laparotomy / 15 cm small bowel resection / ventral hernia repair (03/2005, Dr. Govea), h.o. exploratory laparotomy and total abdominal hysterectomy (03/2006, Dr. Murdock), h.o. incisional abdominal wallhernia repair with mesh (09/2006, Dr. Donald), complicated with abdominal wall infection and fistula, s/p surgical repair and subtotal mesh removal (05/2007, Dr. Donald), h.o. recurrent SBO s/p exploratory laparotomy / lysis of adhesions /??further mesh removal (10/2013, Dr. Anne), h.o. left hydrosalpinx s/p exploratory laparotomy / bilateral salpingo-oophorectomy / extensive lysis of adhesions (03/2020, Dr. Hankins), chronic back pain s/p spinal stimulator placement (05/2010, Dr. Villalobos) & later removed (07/2013, Dr. Villalobos), kidney stones, chronic hypomagnesemia / GI magnesium losses, who is on chronic TPN via a right- side chest wall Port catheter (11/2018, Dr. Narvaez) + IV magnesium infusions (a total of 33 g per week), came to the ED with complaints of right side swelling and pain of theface. ?? R facial swelling and pain Periapical??of R??mandibular??infection ?phlegmon vs abscess? Patient hemodynamically stable,??able to control her saliva, protecting airway. Patient still have significant??right facial swelling??down to the neck, facial pain??now to neck??and right shoulder to the point that she cannot open her mouth.?really tender to touch. no respiratory??problem CT maxilofacial Periapical lucency and focus of air in the right mandibular first molar with diffuse soft tissue swelling, inflammatory changes, and fat stranding in the soft tissue adjacent to the right mandible, as well as mild inflammatory changes of the right masseter muscle, concerning for infection. 1.6 cm well-circumscribed lesion along the lateral right mandible, which may represent edema, phlegmon or early developing abscess. No rim enhancement - this may not yet be organized/drainable. Pain control Zofran as needed with Benadryl Continued on clindamycin??600 mg every 8 hours??IV blood cultures neg so far Discussed with ENT, ENT said??they do not see mandibular infection. ??Discussed with dentist Dr. Cooley, recommend to consult oral surgery or maxillofacial, Discussed with??maxillofacial plastic surgery Dr. Suh, concerning for periapical abscess. need of surgical drainage and washout with source control via removal of the infected tooth. Given thepotential severe complication of necrotizing infection and Gildardo's angina if this goes untreated, recommend that the patient be transferred to a referral center that has oral maxillofacial surgeons capable of managing this infection. discussed with hospitalist ROBER??Stephani and Dr. Chandrakant Yung??from??[facility] accepted to transfer for medicine for oral maxillofacial surgery consult for I&D the abscess ?? Hypomagnesemia Malabsorption On chronic TPN?? -Patient states she gets??IV magnesium infusions 2 times weekly, receives??4 g of IV magnesium??on Wednesdays and??8 g??on Saturdays Please order??IV magnesium today Night Assistant consult for TPN order, currently patient states??she gets TPN for about 12 hours Pantoprazole 40 mg daily Sucralfate??1 mg 3 times daily with meals ?? Diabetes mellitus Glargine 28 units twice daily??[at home takes 35 units??will only give 80% of her daily requirement] Lispro sliding scale ?? 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 AURELIO (obstructive sleep apnea) (G47.33):??. Obesity hypoventilation syndrome (E66.2):? On PRN albuterol ?? Hypertension (I10):??. Hyperlipidemia (E78.5):??. Migraines (G43.909):? On propranolol + simvastatin + PRN sumatriptan ?? GERD (gastroesophageal reflux disease) (K21.9):?On PPI + sucralfate ?? Fibromyalgia (M79.7):??. Bipolar disorder (F31.9):? On PRN methocarbamol Follows as an outpatient with a therapist . Physical Exam Constitutional: Alert, in no acute distress. Head: Normocephalic. Ear, Nose and Throat: R facial swelling extend to neck, painful to touch, pain radiate to R shoulder Respiratory:??Clear to auscultation. No wheezing or rhonchi.??No use of accessory muscles.?? Cardiovascular:??S1 S2 regular. No murmurs, rubs or gallops. Gastrointestinal:??Abdomen soft, non-tender, non-distended. Normal bowel sounds.?? Extremities: No lower extremity pitting edema.?? Neurologic:??No focal neurological deficits. Moves all extremities spontaneously.?? Skin:??No rash.?? Psychiatric: Normal mood and affect. Consultants plastic surgery Pending Results Add On Lab Order ordered on 12/23/2021 Add On Lab Order ordered on 12/23/2021 Add On Lab Order ordered on 12/23/2021 Add On Lab Order ordered on 12/23/2021 BUN ordered on 12/24/2021 Blood Culture ordered on 12/22/2021 Blood Culture #2 ordered on 12/22/2021 Creatinine ordered on 12/24/2021 Electrolytes ordered on 12/24/2021 Ionized Calcium ordered on 12/24/2021 Lactic Acid Level ordered on 12/22/2021 Magnesium Level ordered on 12/24/2021 Phosphorus Level ordered on 12/24/2021 Potassium Level ordered on 12/23/2021 Urine Culture ordered on 12/22/2021 Home Health Face to Face ^HomeHealthFTF Results Discharge Labs BLOOD COUNT & DIFF WBC 9.8 k/mm3 ()?? 12/23/2021 10:29 RBC 3.82 m/mm3 (Low)?? 12/23/2021 10:29 Hgb 10.6 Gm/dL (Low)?? 12/23/2021 10:29 Hct 33.5 % (Low)?? 12/23/2021 10:29 MCV 87.7 femtoliters ()?? 12/23/2021 10:29 MCH 27.7 pg ()?? 12/23/2021 10:29 MCHC 31.6 g/dL (Low)?? 12/23/2021 10:29 Platelet Count 339 k/mm3 ()?? 12/23/2021 10:29 RDW-SD 40.8 femtoliters ()?? 12/23/2021 10:29 MPV 9.5 femtoliters ()?? 12/23/2021 10:29 Nucleated RBC (Automated) 0.0 #/100 WBC'S ()?? 12/23/2021 10:29 Abs. NRBC 0.0 k/mm3 ()?? 12/23/2021 10:29 Abs. Neut 7.2 k/mm3 (High)?? 12/22/2021 15:47 Abs. Lymph 1.8 k/mm3 ()?? 12/22/2021 15:47 Abs. Pershing 0.7 k/mm3 ()?? 12/22/2021 15:47 Abs. Eo 0.2 k/mm3 ()?? 12/22/2021 15:47 Abs. Baso 0.0 k/mm3 ()?? 12/22/2021 15:47 Neut % 72.9 % ()?? 12/22/2021 15:47 Lymph % 17.7 % ()?? 12/22/2021 15:47 Pershing % 6.8 % ()?? 12/22/2021 15:47 Eos % 2.1 % ()?? 12/22/2021 15:47 Baso % 0.2 % ()?? 12/22/2021 15:47 Imm Gran 0.3 % ()?? 12/22/2021 15:47 Abs. Imm Gran 0.0 k/mm3 ()?? 12/22/2021 15:47 ?? CHEM GENERAL Sodium 138 mmol/L ()?? 12/23/2021 10:29 Potassium 4.6 mmol/L ()?? 12/23/2021 10:29 Chloride 103 mmol/L ()?? 12/23/2021 10:29 Bicarbonate Level 25 mmol/L ()?? 12/23/2021 10:29 Anion Gap 10 ()?? 12/23/2021 10:29 Glucose Level 150 mg/dL (High)?? 12/23/2021 10:29 Glucose, POC 131 mg/dL (High)?? 12/23/2021 16:07 BUN 15 mg/dL ()?? 12/23/2021 10:29 Creatinine-Blood 0.6 mg/dL ()?? 12/23/2021 10:29 Estimated GFR Creatinine 112 ML/MIN/1.73 M2 ()?? 12/23/2021 10:29 Calcium 9.4 mg/dL ()?? 12/23/2021 10:29 Phosphorus 4.2 mg/dL ()?? 12/22/2021 15:47 Magnesium 1.6 mg/dL ()?? 12/22/2021 15:47 Protein, Total 6.7 Gm/dL ()?? 12/22/2021 15:47 Albumin 4.1 Gm/dL ()?? 12/22/2021 15:47 AG Ratio 1.6 ()?? 12/22/2021 15:47 Alkaline Phosphatase 117 units/L (High)?? 12/22/2021 15:47 AST (SGOT) 17 units/L ()?? 12/22/2021 15:47 ALT (SGPT) 12 units/L ()?? 12/22/2021 15:47 Bilirubin, Total 1.0 mg/dL ()?? 12/22/2021 15:47 Lactate 0.9 mmol/L ()?? 12/22/2021 15:47 C-Reactive Protein 10.6 mg/dL (High)?? 12/23/2021 10:29 ?? HEME OTHER Sed Rate 66 mm/hr (High)?? 12/23/2021 10:29 Hold Blue Top SPECIMEN DISCARDED AFTER 4 HOURS. ()?? 12/22/2021 15:47 ?? MISC. CHEMISTRY Hold Green Top SPECIMEN DISCARDED AFTER 1 WEEK ()?? 12/22/2021 15:47 ? UA/URINALYSIS Appear/Color, Urine LIGHT YELLOW ()?? 12/22/2021 16:40 Specific [place], Urine 1.026 ()?? 12/22/2021 16:40 pH, Urine 6.0 ()?? 12/22/2021 16:40 Albumin, Urine 1+ (Abnormal)?? 12/22/2021 16:40 Glucose, Urine NEGATIVE ()?? 12/22/2021 16:40 Ketones, Urine NEGATIVE ()?? 12/22/2021 16:40 Bilirubin, Urine NEGATIVE ()?? 12/22/2021 16:40 Hemoglobin, Urine NEGATIVE ()?? 12/22/2021 16:40 Nitrite, Urine NEGATIVE ()?? 12/22/2021 16:40 Leukocyte, Urine 3+ (Abnormal)?? 12/22/2021 16:40 Urobilinogen NORMAL mg/dL ()?? 12/22/2021 16:40 WBC's, Urine 7 /HPF (High)?? 12/22/2021 16:40 RBC's, Urine NONE SEEN /HPF ()?? 12/22/2021 16:40 Bacteria SLIGHT HPF (Abnormal)?? 12/22/2021 16:40 Squamous Epith 11 /HPF (High)?? 12/22/2021 16:40 Mucus SLIGHT /LPF ()?? 12/22/2021 16:40 Hold Urine Culture Testing available 48 hours from time of collection. ()?? 12/22/2021 16:40 ? VIROLOGY COVID-19 by RT-PCR NEGATIVE ()?? 12/22/2021 20:09 ? Imaging(s) ?CT Maxilloface W/ Contrast ?? 12/22/2021 16:26??by Levi SHERIFF, Lauren Weeks ?Periapical lucency and focus of air in the right mandibular first molar with diffuse soft tissue swelling, inflammatory changes, and fat stranding in the soft tissue adjacent to the rightmandible, as well as mild inflammatory changes of the right masseter muscle, concerning for infection. ?? 1.6 cm well-circumscribed lesion along the lateral right mandible, which may represent edema, phlegmon or early developing abscess. No rim enhancement - this may not yet be organized/drainable. ? 35??minutes spent on discharge CT Maxillofacial region W contrast IV * BHSPowerscribe , CIS S: TRANSCRIBE Levi SHERIFF, Lauren Weeks: VERIFY Syed Valencia MD: SIGN Event Display: Result: Authored Date: CT Maxilloface W/ Contrast INDICATION: Broken tooth with right sided facial swelling and fever, concern for infection. IMAGING TECHNIQUE: Multidetector spiral CT with contrast, formatted in 3 planes. Automatic tube modulation and/or iterative dose reconstruction were used optimize scan parameters. CTDIvol Head: 25.80 mGy, DLP Head: 547 mGy*cm. COMPARISON: None FINDINGS: Periapical lucency and focus of air in the right mandibular first molar. There is diffuse soft tissue swelling, inflammatory changes, and fat stranding in the buccal soft tissue adjacent to the rightmandible. 0.5 x 1.6 cm well- circumscribed lesion. with no rim enhancement along the lateral right mandible (image 77 series 203), which may represent edema or early developing abscess. Mild swelling/inflammation of the right masseter muscle compared to the left. Submandibular and parotid glands appear normal. Orbits appear normal. Paranasal sinuses are clear. Mastoid air cells are clear. No abnormality of the partially included upper cervical spine. IMPRESSION: Periapical lucency and focus of air in the right mandibular first molar with diffuse soft tissue swelling, inflammatory changes, and fat stranding in the soft tissue adjacent to the right mandible, as well as mild inflammatory changes of the right masseter muscle, concerning for infection. 1.6 cm well-circumscribed lesion along the lateral right mandible, which may represent edema, phlegmon or early developing abscess. No rim enhancement - this may not yet be organized/drainable. A critical result message (Dimmit) has been communicated via the [employer] system on 12/22/2021 4:51 PM, Message ID [id number]. I have personally reviewed the images and I agree with this report. WSN: [id number] Ordering Physician: Bailey Molina Dictated By: Syed Valencia MD Dictated Date/Time: 12/22/21 4:51 pm Reviewed By: Lauren Sims MD Signed By: Lauren Sims MD Signed Date/Time: 12/22/21 4:56 pm Transcribed By: DEIDRE Transcribed Date/Time: 12/22/21 4:48 pm Portable XR Chest Views * BHSPmilagrosscrinarendra , MURIEL S: TRANSCRIBE Otis Kelly MD V: VERIFY Event Display: Result: Authored Date: [id number] Chest Portable Reason: Tube Placement; PICC line; Clinical Question(s): Tube Placement COMPARISON: Multiple prior examinations the most recent dated 11/09/2021. FINDINGS: Limited examination due to the patient's large body habitus. LINES AND TUBES: Right IJ Port-A-Cath in place with its tip in the region of the cavoatrial junction in satisfactoryposition unchanged. Right upper extremity PICC line in place with tip slightly advanced since the prior examination andthe tip is at the region of the junction of the right and left innominate veins. Further advancement may be helpful. LUNGS AND PLEURA: Low lung volumes. Clear lungs. Normal pulmonary vascularity. No pleural effusion. No pneumothorax. HEART, MEDIASTINUM AND LISA: Heart is normal in size. Normal mediastinal and hilar contour. BONES AND SOFT TISSUES: No acute abnormality. IMPRESSION: The right-sided upper extremity PICC line has been slightly advanced with its tip seen at the region of the junction of the right and left innominate veins. Low lung volumes appearing. WSN: [id number] Ordering Physician: Melanie Wick Dictated By: Otis Kelly MD, V Dictated Date/Time: 12/23/21 1:35 pm Reviewed By: Otis Kelly MD, V Signed By: Otis Kelly MD, V Signed Date/Time: 12/23/21 1:35 pm Transcribed By: DEIDRE Transcribed Date/Time: 12/23/21 1:33 pm Patient Care team information Care Team Personnel Name: Lola Belcher RN Position: [facility] RN Member Role: Primary Care Nurse Name: Jose Enrique Saul RN Position: [facility] RN Member Role: Primary Care Nurse Name: Symone Mckinnon RN Position: [facility] RN Member Role: Primary Care Nurse Name: Carolyn Pelaez RN Position: [facility] RN Member Role: Primary Care Nurse Name: Deanna Garcia RN Position: [facility] RN Member Role: Primary Care Nurse Name: Fanny Mixon RN Position: [facility] ED RN W/OE and Tasks Member Role: Primary Care Nurse Name: María Ashford RN Position: [facility] AMB Nurse Member Role: Primary Care Nurse Name: Chanelle Hernandez RN Position: [facility] PCO RN Member Role: Primary Care Nurse Name: Estelle García RN Position: [facility] RN Member Role: Primary Care Nurse Name: Deanne Rangel RN Position: [facility] RN Member Role: Primary Care Nurse Name: Carine Jimenze RN Position: [facility] AMB Nurse Member Role: Primary Care Nurse Name: Jenelle Capmo RN Position: [facility] RN Member Role: Primary Care Nurse Name: Keyla Godwin RN Position: [facility] RN Member Role: Primary Care Nurse Name: Yeimi Devine RN Position: [facility] RN Member Role: Primary Care Nurse Name: Mary Yan RN Position: [facility] RN Member Role: Primary Care Nurse Name: Iliana Pop RN Position: [facility] RN Member Role: Primary Care Nurse Name: Alcides Dueñas RN Position: [facility] RN Member Role: Primary Care Nurse Name: Lisa Beatty Position: [facility] Outreach Member Role: Lifetime Consulting Physician Name: Armida Beatty RN Position: [facility] RN Member Role: Primary Care Nurse Name: Roque Villasenor MD Position: [facility] Renal MD Member Role: Lifetime Consulting Physician Address: Address: [address] [place] [address], [address] [facility] [address] Name: Lashon Lovell RN Position: [facility] SN RN Member Role: Primary Care Nurse Name: Kristi Giraldo RN Position: [facility] RN Supv Member Role: Primary Care Nurse Name: Jerrod Casarez RN Position: [facility] RN Member Role: Primary Care Nurse Name: Rosalva Martin RN Position: [facility] RN Member Role: Primary Care Nurse Name: Armida Ochoa RN Position: [facility] RN Member Role: Primary Care Nurse Name: Deonna Murillo RN Position: [facility] RN Member Role: Primary Care Nurse Name: Felipa Diehl RN Position: [facility] HBO Wound Member Role: Primary Care Nurse Name: Evelin Powell RN Position: [facility] AMB Nurse Member Role: Primary Care Nurse Name: Deonna Pendleton RN Position: [facility] RN Member Role: Primary Care Nurse Name: Pili Kaba RN Position: [facility] RN Member Role: Primary Care Nurse Name: Alejandro Yanes RN Position: [facility] RN Member Role: Primary Care Nurse Name: Stacey Díaz RN Position: [facility] SN RN Member Role: Primary Care Nurse Name: Jac Reese RN Position: [facility] RN Member Role: Primary Care Nurse Name: Celestine Schwartz RN Position: [facility] RN Member Role: Primary Care Nurse Name: Neeta Carpenter RN Position: [facility] RN Member Role: Primary Care Nurse Name: Susie Estrada RN Position: [facility] RN Member Role: Primary Care Nurse Name: Inna Cantor RN Position: [facility] RN Member Role: Primary Care Nurse Name: Chaparrita Pizano DO Position: [facility] Physician (General Medicine) Member Role: PCP Address: Address: [address] [place] [id number]- Name: Ning Rolon RN Position: [facility] RN Member Role: Primary Care Nurse Name: Rubi Carrasco RN Position: [facility] SN RN Member Role: Primary Care Nurse Name: Lauryn Holden RN Position: [facility] RN Member Role: Primary Care Nurse Name: Shen Silvestre RN Position: [facility] RN Member Role: Primary Care Nurse Name: Jones Cervantes RN Position: [facility] RN Member Role: Primary Care Nurse Name: Olivia Caputo RN Position: [facility] RN Member Role: Primary Care Nurse Name: Brooklyn Jim RN Position: [facility] RN Member Role: Primary Care Nurse Name: Kimberly Santoro RN Position: [facility] RN Member Role: Primary Care Nurse Name: Haley Diamond RN Position: [facility] RN Member Role: Primary Care Nurse Name: Ashley Meléndez NP Position: [facility] PCO Associate Professional Member Role: Primary Care Nurse Address: Address: [address] [place] [id number]- Name: Siomara Patricia [facility] RN Member Role: Primary Care Nurse Name: Neeta Painter RN Position: [facility] RN Member Role: Primary Care Nurse Name: Edith Drummond RN Position: [facility] RN Member Role: Primary Care Nurse Name: Bailey Espinal RN Position: [facility] AMB Nurse Member Role: Primary Care Nurse Name: Brooklyn Ramsey RN Position: [facility] RN Member Role: Primary Care Nurse Name: Keyla Bright RN Position: [facility] RN Member Role: Primary Care Nurse Name: Beverley Tatum RN Position: [facility] RN Member Role: Primary Care Nurse Name: Mainor Devries RN Position: [facility] RN Member Role: Primary Care Nurse Name: Yarely Richards RN Position: [facility] Hospital Stereotype Finisher Member Role: Primary Care Nurse Name: Oralia Massey RN Position: [facility] RN Member Role: Primary Care Nurse Name: Cassie Villanueva RN Position: [facility] RN Member Role: Primary Care Nurse Name: Taiwo Mcgregor RN Position: [facility] RN Member Role: Primary Care Nurse Name: Cally Funes RN Position: [facility] SN RN Member Role: Primary Care Nurse Name: Marina Osorio Position: [facility] RN Member Role: Primary Care Nurse Name: Lisa Blanton RN Position: [facility] Stereotype Finisher Member Role: Primary Care Nurse Name: Danica Stuart RN Position: [facility] AMB Nurse Member Role: Primary Care Nurse Name: Shruthi Ray RN Position: [facility] RN Member Role: Primary Care Nurse Name: Abbe Choe RN Position: [facility] RN Supv Member Role: Primary Care Nurse Name: Farideh Cat LPN Position: [facility] RN Member Role: Primary Care Nurse Name: Janis Morris RN Position: [facility] Stereotype Finisher Member Role: Primary Care Nurse Name: Darrian Chang RN Position: [facility] Stereotype Finisher Member Role: Primary Care Nurse Name: Jerry Mcneill RN Position: [facility] RN Member Role: Primary Care Nurse Name: [facility] Attending Position: [facility] ED Medicine MD Name: Cory Fraire Position: [facility] ED TA [facility] Name: Antoinette Forbes RN Position: [facility] ED RN W/OE and Tasks Member Role: Patient Care Provider Name: Deonna Glass LPN Position: [facility] RN Member Role: Patient Care Provider Care Team Related Persons Name: IVAN VILLASENOR Address: [place] [address] Name: REYNALDO KAUR Address: home [address] [place] [address] Name: EMMA BROWN Address: home [address] [address] Name: PATRICK MATA Address: home [address] [place] [address] Name: FARIDEH POPE Address: [place] [address]
--- OUTSIDE RECORDS SUMMARY | 2022-08-31 01:06 | XMS_ITS | Continuity of Care Document ---
Author Name Unknown Organization [facility] Address [address] [place] [id number]- Care Team Providers Care Ambulatory Care Nurse Name Role Phone Chaparrita Pizano DO Primary Care Physician Encounter [facility] Date(s): 01/29/19 - 02/08/19 [facility] [address] [place] [address] [facility] Attending Physician: Admdavid, Jamie Admitting Physician: Admtr, [...] 11:42:54 EDT, Aerosol, Route to Pharmacy Electronically, [id number], [facility]/pharmacy #[id number], Compound Start Date: [...] 05/05/18 9:38:51 EDT, Route to Pharmacy Electronically, [id number]... Start Date: 05/05/18 Status: Ordered Lantus 100 [...] tablet, 0 Refills, Maintenance, 01/31/19 15:17:00 EST, [facility]/pharmacy #[id number], 155.9, cm, 01/29/19 15:24:00 EST, Height, [...] 08/30/17 8:21:42 EDT, Route to Pharmacy Electronically, [id number], [facility]/pharmacy #[id number] Start Date: 08/30/17 Status: Ordered Tums 500 mg oral tablet, chewable 500 mg, 1, tablet, Chew, Every 4 hours, PRN, # 180 tablet, Refills 0, Tot. Refills 0, Maintenance, Dyspepsia, 06/21/18 11:05:15 EDT, Route to Pharmacy Electronically, [id number], [facility] Start Date: 06/21/18 Status: [...] WITH PRO LONGED DEPRESSIVE REACTION(Confirmed) 02/03/07 Active [facility] Emeral d Team Senior Level Patient(Confirmed) Active [...]
--- OUTSIDE RECORDS SUMMARY | 2022-08-31 01:06 | XMS_ITS | Continuity of Care Document ---
Author Name Unknown Organization [facility] ter Address [address] [place] [id number]- Care Team Providers Care Marketing Operations Coordinator Name Role Phone Jerica DOChaparrita Primary Care Physician Encounter [facility] Date(s): 10/14/20 - 03/13/[address] [address] Attending Physician: Donald Murphy MD Admitting Physician: Donald Murphy MD Referring Physician: Donald Murphy MD Allergies, Adverse Reactions, Alerts Substance Reaction Severity Status doxycycline mouth swelling Active ceftriaxone hives Active penicillin throat swelling Rash Persistent Severe Active iodine topical swelling itching Active melatonin Active famotidine vomiting Active morphine 1, 2, 3 hives Active Zofran 4 can only be given w/ benadryl hives Active Pepcid vomitng Active Compazine shortness of breath Active Nexium diarrhea, vomitting Active Levaquin tingling [...] to receive vaccine 2Admin Note: manufactured by [employer] Medications albuterol 0.042% inhalation solution 3 [...] EDT, 08/31/20 13:21:00 EDT, Tablet, [facility]/pharmacy #[id number], Partial fill upon patient request... Start Date: [...] 0 Refills, Maintenance, 04/02/20 9:29:00 EST, Tablet, [facility], Partial fill upon patient request [...] 08/30/17 8:21:42 EDT, Route to Pharmacy Electronically, [id number], [facility]/pharmacy #[id number] Start Date: 08/30/17 Status: Ordered Tums 500 mg oral tablet, chewable 500 mg, 1, tablet, Chew, Every 4 hours, PRN, # 180 tablet, Refills 0, Tot. Refills 0, Maintenance, Dyspepsia, 06/21/18 11:05:15 EDT, Route to Pharmacy Electronically, [id number], [facility] Start Date: 06/21/18 Status: Ordered [...]
--- OUTSIDE RECORDS SUMMARY | 2022-08-31 01:06 | XMS_ITS | Continuity of Care Document ---
Author Name Unknown Organization [facility] ter Address [address] [place] [id number]- Care Team Providers Care Condenser Operator Name Role Phone Darryl Pizano DOdavidradha Gupta Primary Care Physician Encounter [facility] Date(s): 04/17/21 - 10/02/[address] [address]- Attending Physician: Donald Murphy MD Admitting Physician: Donald Murphy MD Referring Physician: Donald Murphy MD Allergies, Adverse Reactions, Alerts Substance Reaction Severity Status doxycycline mouth swelling Active ceftriaxone hives Active Levaquin tingling in mouth, rash Acti ve penicillin throat swelling Rash Persistent Severe Active famotidine vomiting Active morphine 1, 2, 3 hives Active iodine topical swelling itching Active melatonin Active Pepcid vomitng Active Zofran 4 can only be given w/ benadryl hives Active Compazine shortness of breath Active Tylenol hives Active Adhesive Bandage skin excoriation hives Active Latex vag rash Active Seafood Anaphylactic shock d ue to adverse food reaction Severe Active Nexium diarrhea, vomitting Active Reglan severe restless legs Active Contrast Dye hives itchy throat itchy Persistent Mild Active Lantiseptic Skin Protectant Active Nicotine Patch [...] to receive vaccine 2Admin Note: manufactured by [employer] Medications albuterol 0.042% inhalation solution 3 [...] 09/08/21 13:21:00 EDT, Route to Pharmacy Electronically, [facility], Partial fill upon patient request if the prescr... Start Date: 09/08/21 Stop Date: 10/08/21 Status: Ordered HYDROmorphone 2 mg oral tablet 2 tablet = 4 mg, By Mouth, Every 6 hours, PRN as needed for pain, for 3 days, # 18 tablet, 0 Refills, Acute 10/04/21 15:06:00 EDT, 10/01/21 15:06:00 EDT, Tablet, [facility]/pharmacy #[id number], Partial fill uponpatient request if the prescription is for a schedu... Start Date: 10/01/21 Stop Date: 10/04/21 Status: Ordered Insulin Glargine Inj = 20 [...] 13:22:00 EDT, 08/31/20 13:21:00 EDT, Syrup, [facility]/pharmacy #[id number], Partial fill upon patient [...] 0 Refills, Maintenance, 04/02/20 9:29:00 EST, Tablet, [facility], Partial fill upon patient [...] 06/21/18 11:05:15 EDT, Route to Pharmacy Electronically, [id number], [facility] Start Date: 06/21/18 [...] WITH PRO LONGED DEPRESSIVE REACTION(Confirmed) 02/03/07 Active [facility] Emeral d Team Senior Level [...]
--- OUTSIDE RECORDS SUMMARY | 2022-08-31 01:06 | XMS_ITS | Continuity of Care Document ---
Author Name Unknown Organization [facility] Address Unknown Care Team Providers Care Sheriff Deputy Name Role Phone JericaChaparrita apple DO Primary Care Physician Encounter [facility] Date(s): 04/21/21 - 05/21/21 [facility] Encounter Diagnosis Abdominal pain(Final) - 04/23/21 Allergies, Adverse Reactions, Alerts Substance Reaction Severity [...] to receive vaccine 2Admin Note: manufactured by [employer] Medications albuterol 0.042% inhalation solution 3 mL [...] 08/31/21 13:21:00 EDT, 08/31/20 13:21:00 EDT, Tablet, [facility]/pharmacy #[id number], Partial fill upon patient request... Start Date: [...] 08/31/22 13:22:00 EDT, 08/31/20 13:21:00 EDT, Syrup, [facility]/pharmacy #[id number], Partial fill upon [...] 0 Refills, Maintenance, 04/02/20 9:29:00 EST, Tablet, [facility], Partial fill upon patient request [...] 08/30/17 8:21:42 EDT, Route to Pharmacy Electronically, [id number], [facility]/pharmacy #[id number] Start Date: 08/30/17 Status: Ordered Tums 500 mg oral tablet, chewable 500 mg, 1, tablet, Chew, Every 4 hours, PRN, # 180 tablet, Refills 0, Tot. Refills 0, Maintenance, Dyspepsia, 06/21/18 11:05:15 EDT, Route to Pharmacy Electronically, [id number], [facility] 3 Start Date: 06/21/18 Status: Ordered Tylenol 325 mg oral capsule 2 capsule = 650 mg, By Mouth, Every 4 hours, PRN as needed for pain, # 60 capsule, 0 Refills, Acute06/14/21 0:00:00 EDT, 04/23/21 16:19:00 EST, Capsule, [facility]/pharmacy #[id number], Partial fill upon patientrequest if the [...] ADJUSTMENT REACTION WITH PRO LONGED DEPRESSIVE REACTION(Confirmed) 12/21/07 Active [facility] Emeral d Team Senior Level [...]
--- OUTSIDE RECORDS SUMMARY | 2022-08-31 01:07 | XMS_ITS | Continuity of Care Document ---
Author Name Unknown Organization [facility] ter Address [address] [place] [address]- Care Team Providers Care Color Control Operator Name Role Phone Chaparrita Pizano DO Primary Care Physician [place] [facility] [place]14[place] - 10/15/[address] [address]- Discharge Disposition: A-D/C Walkout Attending Physician: Not [...] to receive vaccine 2Admin Note: manufactured by [employer] Medications albuterol 0.042% inhalation solution 3 [...] 13:21:00 EDT, 08/31/20 13:21:00 EDT, Tablet, [facility]/pharmacy #[id number], Partial fill upon patient request... Start Date: [...] 13:22:00 EDT, 08/31/20 13:21:00 EDT, Syrup, [facility]/pharmacy #[id number], Partial fill upon patient request [...] 0 Refills, Maintenance, 04/02/20 9:29:00 EST, Tablet, [facility], Partial fill upon patient request if [...] tablet, 1 Refills, Maintenance, 08/31/20 13:22:00 EDT, [facility]/pharmacy #[id number], Partial fill upon patient request [...] 08/30/17 8:21:42 EDT, Route to Pharmacy Electronically, [id number], [facility]/pharmacy #[id number] Start Date: 08/30/17 Status: Ordered Tums 500 mg oral tablet, chewable 500 mg, 1, tablet, Chew, Every 4 hours, PRN, # 180 tablet, Refills 0, Tot. Refills 0, Maintenance, Dyspepsia, 06/21/18 11:05:15 EDT, Route to Pharmacy Electronically, [id number], [facility] Start Date: 06/21/18 Status: Ordered [...] WITH PRO LONGED DEPRESSIVE REACTION(Confirmed) 02/03/07 Active [facility] Emeral d Team Senior Level [...] 3 Oxygen Saturation [94-100 %] 99 % (10/14/20 7:30 PM) 100 % (10/14/20 1:16 PM) 98 % (10/14/20 11:42 AM) Pulse Rate [55-90 bpm] 94 bpm *H* (10/14/20 7:30 PM) 90 bpm (10/14/20 1:16 PM) 105 bpm *H* (10/14/20 11:42 AM) Blood Pressure [90-138/55-84 mm Hg] 146/101mm Hg *H* (10/14/20 7:30 PM) 121/98mm Hg (10/14/20 1:16 PM) Respiratory Rate [16-30 br/min] 20 br/min (10/14/20 7:30 PM) 18 br/min (10/14/20 1:16 PM) Temperature [96.8-100.4 DegF] 97.8 DegF (10/14/20 7:30 PM) 98.6 DegF (10/14/20 1:16 PM) Mode of Delivery (Oxygen) Room air (10/14/20 7:30 PM) Room air (10/14/20 1:16 PM) Blood pressure sites Arm, right (10/14/20 7:30 PM) Temperature Route Oral (10/14/20 7:30 PM) Oral (10/14/20 1:16 PM) Social History Social History Type Response Smoking Status Former smoker; Other : quit 04/2015; entered on: 01/30/16 Sex Female
--- OUTSIDE RECORDS SUMMARY | 2022-08-31 01:07 | XMS_ITS | Continuity of Care Document ---
Author Name Unknown Organization [facility] Address [address] [place] [address]- Care Team Providers Care Grease Maker Head Name Role Phone Chaparrita Pizano DO Primary Care Physician [place] [facility] [place] - 04/26/20 [facility] [address] [place], [place] [address] Attending Physician: Rosenda Hankins MD Admitting Physician: [...] Acute05/02/20 9:28:00 EDT, 04/02/20 9:28:00 EST, Tablet, [facility], Partial fill upon [...] 05/07/20 0:00:00 EDT, 04/09/20 6:53:00 EST, Liquid, [facility], Partial fill upon [...] Refills, Maintenance, 04/03/20 13:23:00 EST, Solution, [facility]/pharmacy #[id number], Partial fill upon patient [...] 0 Refills, Maintenance, 04/15/20 11:12:00 EST, Solution, [facility]/pharmacy #[id number], Partial fill upon patient request if the prescriptionis for a schedule II opioid drug., 154, cm, ... Start Date: 04/15/20 Status: Ordered naloxone 4 mg/0.1 mL nasal spray = 4 mg, Nares, Both, Once, # 2 each, 0 Refills, Soft Stop, 04/09/20 13:16:00 EST, [facility], Partial fill upon [...] 0 Refills, Maintenance, 04/02/20 9:29:00 EST, Tablet, [facility], Partial fill upon patient request if the prescription is for a schedule II opioid drug., 154.94, cm, 0... Start Date: 04/02/20 Status: Ordered oxyCODONE 10 mg oral tablet 2 tablet = 20 mg, By Mouth, Every 6 hours, PRN Pain , Severe, take 1 tab for less severe pain, # 56tablet, 0 Refills, Maintenance, 04/22/20 14:36:00 EST, Tablet, [facility]/pharmacy #[id number], Partial fill upon patient request if the prescription is for a sched... Start Date: 04/22/20 Status: Ordered OxyCONTIN 10 mg oral tablet, extended release 10 mg, 1, tablet, By Mouth, Every 12 hours, # 60 tablet, Refills 0, Tot. Refills 0, Maintenance, 04/02/20 9:32:00 EST, Route to Pharmacy Electronically, [facility], Partial fill upon [...] Acute 04/30/20 0:00:00 EDT, 04/02/20 9:33:00 EST, [facility], Partial fill upon patient request [...] 08/30/17 8:21:42 EDT, Route to Pharmacy Electronically, [id number], [facility]/pharmacy #[id number] Start Date: 08/30/17 Status: Ordered Tums 500 mg oral tablet, chewable 500 mg, 1, tablet, Chew, Every 4 hours, PRN, # 180 tablet, Refills 0, Tot. Refills 0, Maintenance, Dyspepsia, 06/21/18 11:05:15 EDT, Route to Pharmacy Electronically, [id number], [facility] Start Date: 06/21/18 [...] WITH PRO LONGED DEPRESSIVE REACTION(Confirmed) 02/03/07 Active [facility] Emeral d Team Senior Level Patient(Confirmed) Active [...]
--- OUTSIDE RECORDS SUMMARY | 2022-08-31 01:07 | XMS_ITS | Continuity of Care Document ---
Author Name Unknown Organization [facility] ter Address [address] [place] [address]- Care Team Providers Care Systems Integration Advisor Name Role Phone Jerica DOChaparrita Primary Care Physician [place] [facility] [place] [id number] Date(s): 01/09/20 - 04/21/[address] [address]- Attending Physician: Isaac Lobo MD Admitting Physician: Isaac Lobo MD Referring Physician: Isaac Lobo MD Allergies, Adverse Reactions, Alerts Substance Reaction Severity Status doxycycline mouth swelling Active ceftriaxone hives Active penicillin throat swelling Rash Persistent Severe Active famotidine vomiting Active iodine topical swelling itching Active Zofran 1 can only be given [...] reaction Severe Active Nexium diarrhea, vomitting Active morphine 2, 3, 4 hives Active Nicotine Patch ana cardia Active Lyrica [...] Acute05/02/20 9:28:00 EDT, 04/02/20 9:28:00 EST, Tablet, [facility], Partial fill upon patient request if [...] 05/07/20 0:00:00 EDT, 04/09/20 6:53:00 EST, Liquid, [facility], Partial fill upon [...] 0 Refills, Maintenance, 04/03/20 13:23:00 EST, Solution, [facility]/pharmacy #[id number], Partial fill upon patient request [...] 0 Refills, Maintenance, 04/15/20 11:12:00 EST, Solution, [facility]/pharmacy #[id number], Partial fill upon patient request if the prescriptionis for a schedule II opioid drug., 154, cm, ... Start Date: 04/15/20 Status: Ordered naloxone 4 mg/0.1 mL nasal spray = 4 mg, Nares, Both, Once, # 2 each, 0 Refills, Soft Stop, 04/09/20 13:16:00 EST, [facility], Partial fill upon [...] 04/02/20 9:29:00 EST, Tablet, [facility], Partial fill upon patient request if the prescription is for a schedule II opioid drug., 154.94, cm, 0... Start Date: 04/02/20 Status: Ordered OxyCONTIN 10 mg oral tablet, extended release 10 mg, 1, tablet, By Mouth, Every 12 hours, # 60 tablet, Refills 0, Tot. Refills 0, Maintenance, 04/02/20 9:32:00 EST, Route to Pharmacy Electronically, [facility], Partial fill upon [...] Acute 04/30/20 0:00:00 EDT, 04/02/20 9:33:00 EST, [facility], Partial fill upon [...] 08/30/17 8:21:42 EDT, Route to Pharmacy Electronically, [id number], [facility]/pharmacy #[id number] Start Date: 08/30/17 Status: Ordered Tums 500 mg oral tablet, chewable 500 mg, 1, tablet, Chew, Every 4 hours, PRN, # 180 tablet, Refills 0, Tot. Refills 0, Maintenance, Dyspepsia, 06/21/18 11:05:15 EDT, Route to Pharmacy Electronically, [id number], [facility] Start Date: 06/21/18 [...] WITH PRO LONGED DEPRESSIVE REACTION(Confirmed) 02/03/07 Active [facility] Emeral d Team Senior Level [...]
--- OUTSIDE RECORDS SUMMARY | 2022-08-31 01:07 | XMS_ITS | Continuity of Care Document ---
Author Name Unknown Organization [facility] ter Address [address] [place] [address]- Care Team Providers Care Donor Services Coordinator Name Role Phone Darryl Pizano DOdavidradha Gupta Primary Care Physician En[place] [facility] [place] Date(s): 12/28/21 - 04/19/[address] [address]- Attending Physician: Donald Murphy MD Admitting Physician: [...] hives Active Compazine shortness of breath Active Reglan severe restless legs Active Tylenol hives Active Adhesive Bandage skin [...] to receive vaccine 2Admin Note: manufactured by [employer] Medications albuterol 0.042% inhalation solution 3 [...] 03/12/22 12:08:00 EST, Route to Pharmacy Electronically, [facility], Partial fill upon patient [...] 03/09/23 23:00:00 EST, 03/12/22 12:09:00 EST, Syrup, [facility], Partial fill upon patient [...] 03/09/23 23:00:00 EST, 03/12/22 12:10:00 EST, Patch, [facility], Partial fill upon patient [...] tablet, 0 Refills, Maintenance, 04/02/20 9:29:00 EST, [facility], Partial fill upon [...] 03/12/22 12:06:00 EST, Route to Pharmacy Electronically, [facility], Partial fill uponpatient request if [...] 06/21/18 11:05:15 EDT, Route to Pharmacy Electronically, [id number], [facility] 3 Start Date: [...] WITH PROLONGED DEPRESSIVE REACTION Confirmed 02/03/07 Active [facility] Team Senior Level Patient Confirmed Active [facility]HMA [...] Team Personnel Name: Lola Belcher RN Position: [facility] RN Member Role: Primary Care Nurse Name: Jose Enrique Saul RN Position: [facility] RN Member Role: Primary Care Nurse Name: Symone Mckinnon RN Position: [facility] RN Member Role: Primary Care Nurse Name: Carolyn Pelaez RN Position: [facility] RN Member Role: Primary Care Nurse Name: Fanny Mixon RN Position: [facility] ED RN W/OE and Tasks Member Role: Primary Care Nurse Name: María Ashford RN Position: [facility] AMB Nurse Member Role: Primary Care Nurse Name: Chanelle Hernandez RN Position: [facility] AMB Nurse Member Role: Primary Care Nurse Name: Estelle García RN Position: [facility] RN Member Role: Primary Care Nurse Name: Deanne Rangel RN Position: [facility] RN Member Role: Primary Care Nurse Name: Carine Jimenez RN Position: [facility] SN RN Member Role: Primary Care Nurse Name: Jenelle Campo RN Position: [facility] RN Member Role: Primary Care Nurse Name: Keyla Godwin RN Position: [facility] RN Member Role: Primary Care Nurse Name: Yeimi Devine RN Position: [facility] RN Member Role: Primary Care Nurse Name: Mary Yan RN Position: [facility] RN Member Role: Primary Care Nurse Name: Iliana Pop RN Position: [facility] RN Member Role: Primary Care Nurse Name: Alcides Dueñas RN Position: [facility] RN Member Role: Primary Care Nurse Name: Lisa Beatty Position: [facility] Outreach Member Role: Lifetime Consulting Physician Name: Armida Beatty RN Position: [facility] RN Member Role: Primary Care Nurse Name: Deonna Beatty RN Position: [facility] RN Member Role: Primary Care Nurse Name: Roque Villasenor MD Position: [facility] Renal MD Member Role: Lifetime Consulting Physician Address: Address: [address] [place] [address], [address] [facility] [place] [address]- Name: Lashon Lovell RN Position: [facility] SN RN Member Role: Primary Care Nurse Name: Kristi Giraldo RN Position: [facility] RN Supv Member Role: Primary Care Nurse Name: Jerrod Casarez RN Position: [facility] RN Member Role: Primary Care Nurse Name: Shane Riley RN Position: [facility] RN Member Role: Primary Care Nurse Name: Isac Plascencia RN Position: [facility] RN Member Role: Primary Care Nurse Name: Rosalva Martin RN Position: [facility] RN Member Role: Primary Care Nurse Name: Sheela Matt RN Position: [facility] RN Member Role: Primary Care Nurse Name: Armida Ochoa RN Position: [facility] RN Member Role: Primary Care Nurse Name: Felipa Diehl RN Position: [facility] HBO Wound Member Role: Primary Care Nurse Name: Evelin Powell RN Position: [facility] AMB Nurse Member Role: Primary Care Nurse Name: Deonna Pendleton RN Position: [facility] RN Member Role: Primary Care Nurse Name: Pili Kaba RN Position: [facility] RN Member Role: Primary Care Nurse Name: Alejandro Yanes RN Position: [facility] RN Member Role: Primary Care Nurse Name: Stacey Díaz RN Position: [facility] SN RN Member Role: Primary Care Nurse Name: Jac Reese RN Position: [facility] RN Member Role: Primary Care Nurse Name: Celestine Schwartz RN Position: [facility] RN Member Role: Primary Care Nurse Name: Neeta Carpenter RN Position: [facility] RN Member Role: Primary Care Nurse Name: Susie Estrada RN Position: [facility] RN Member Role: Primary Care Nurse Name: Inna Cantor RN Position: [facility] RN Member Role: Primary Care Nurse Name: Chaparrita Pizano DO Position: [facility] Physician (General Medicine) Member Role: PCP Address: Address: [address] [place] [address] [place] [address]- [place] Name: Ning Rolon RN Position: [facility] RN Member Role: Primary Care Nurse Name: Rubi Carrasco RN Position: [facility] SN RN Member Role: Primary Care Nurse Name: Lauryn Holden RN Position: [facility] RN Member Role: Primary Care Nurse Name: Jones Cervantes RN Position: [facility] RN Member Role: Primary Care Nurse Name: Olivia Caputo RN Position: [facility] RN Member Role: Primary Care Nurse Name: Brooklyn Jim RN Position: [facility] RN Member Role: Primary Care Nurse Name: Kimberly aSntoro RN Position: [facility] RN Member Role: Primary Care Nurse Name: Haley Diamond RN Position: [facility] RN Member Role: Primary Care Nurse Name: Ashley Meléndez NP Position: [facility] PCO Associate Professional Member Role: Primary Care Nurse Address: Address: [address] [place] [address]- Name: Siomara Patricia RN Position: [facility] PCO RN Member Role: Primary Care Nurse Name: Neeta Painter RN Position: [facility] RN Member Role: Primary Care Nurse Name: Bailey Espinal RN Position: [facility] AMB Nurse Member Role: Primary Care Nurse Name: Brooklyn Ramsey RN Position: [facility] RN Member Role: Primary Care Nurse Name: Keyla Bright RN Position: [facility] RN Member Role: Primary Care Nurse Name: Beverley Tatum RN Position: [facility] RN Member Role: Primary Care Nurse Name: Mainor Devries RN Position: [facility] RN Member Role: Primary Care Nurse Name: Yarely Richards RN Position: [facility] Paginator Member Role: Primary Care Nurse Name: Oralia Massey RN Position: [facility] RN Member Role: Primary Care Nurse Name: Cassie Villanueva RN Position: [facility] RN Member Role: Primary Care Nurse Name: Taiwo Mcgregor RN Position: [facility] RN Member Role: Primary Care Nurse Name: Cally Funes RN Position: [facility] RN Member Role: Primary Care Nurse Name: Marina Osorio Position: [facility] RN Member Role: Primary Care Nurse Name: Lisa Blanton RN Position: [facility] Paginator Member Role: Primary Care Nurse Name: Danica Stuart RN Position: [facility] AMB Nurse Member Role: Primary Care Nurse Name: Virginia Bacon RN Position: [facility] RN Member Role: Primary Care Nurse Name: Shruthi Ray RN Position: [facility] Onco RN Member Role: Primary Care Nurse Name: Abbe Choe RN Position: [facility] RN Supv Member Role: Primary Care Nurse Name: Farideh Cat LPN Position: [facility] RN Member Role: Primary Care Nurse Name: Janis Morris RN Position: [facility] Paginator Member Role: Primary Care Nurse Name: Darrian Chang RN Position: [facility] Paginator Member Role: Primary Care Nurse Name: Josef Woods RN Position: [facility] RN Member Role: Primary Care Nurse Name: Siomara Raphael Position: [facility] RN Member Role: Primary Care Nurse Name: Jerry Mcneill RN Position: [facility] RN Member Role: Primary Care Nurse Care Team Related Persons Name: IVAN VILLASENOR Address: [place] [address] Name: REYNALDO KAUR Address: [address] [place] [address] Name: EMMA SERRANO Address: home [address] [address] Name: PATRICK MATA Address: home [address] [place] [address] Name: FARIDEH POPE Address: [place] [address]
--- OUTSIDE RECORDS SUMMARY | 2022-08-31 01:07 | XMS_ITS | Continuity of Care Document ---
Author Name Unknown Organization [facility] Address [address] [place] [address]- Care Team Providers Care Auricular Acupuncturist Name Role Phone Chaparrita Pizano DO Primary Care Physician [place] [facility] [place] 08/09[place]19 - 09/08/19 [facility] [address] [place] [address]- [facility] Attending Physician: Admtr, Jamie Admitting Physician: Admtr, Jamie Referring Physician: [...] 1 02/02/07 Given 1Admin Note: manufactured by [employer] Medications albuterol CFC free 90 mcg/inh [...] 11:42:54 EDT, Aerosol, Route to Pharmacy Electronically, [id number], [facility]/pharmacy #[id number], Compound Start Date: 06/10/17 [...] capsule, 0 Refills, Maintenance, 05/02/19 10:52:00 EDT, [facility]/pharmacy #[id number], 155.9, cm, 04/26/19 9:14:00 [...] 05/05/18 9:38:51 EDT, Route to Pharmacy Electronically, [id number]... Start Date: 05/05/18 Status: Ordered Insulin Glargine Inj 0.6 mL = 60 units, Subcutaneous Injection, Daily at bedtime, 0 Refills, Maintenance, 08/20/19 18:48:00 EDT, Injection Start Date: 08/20/19 Status: Ordered LORazepam 0.5 mg oral tablet See Instructions, Take 1 tablet by mouth 1 hour prior to biopsy appointment, may repeat x1 if needed, # 2 tablet, 0 Refills, Maintenance, 04/27/19 16:33:00 EDT, [facility]/pharmacy #[id number], 155.9, cm, 04/26/19 9:14:00 [...] 08/09/19 13:00:00 EDT, Route to Pharmacy Electronically, [facility]/pharmacy #[id number], Partial fillupon patient request, [...] 08/30/17 8:21:42 EDT, Route to Pharmacy Electronically, [id number], [facility]/pharmacy #[id number] Start Date: [...] 06/21/18 11:05:15 EDT, Route to Pharmacy Electronically, [id number], [facility] 3 Start Date: 06/21/18 Status: Ordered [...] PRO LONGED DEPRESSIVE REACTION(Confirmed) 02/03/07 Active [facility] Emeral d Team Senior Level [...]
--- OUTSIDE RECORDS SUMMARY | 2022-08-31 01:07 | XMS_ITS | Continuity of Care Document ---
Author Name Unknown Organization [facility] Address [address] [place] [address]- Care Team Providers Care System Administration Advisor Name Role Phone Jerica DOChaparrita Primary Care Physician Encounter [facility] Date(s): 02/15/22 - 02/15/[address] [address]- Discharge Disposition: A-D/C Home Attending Physician: Mainor Blake MD Admitting Physician: Mainor Blake MD Referring Physician: Not on Staff, Referring [...] to receive vaccine 2Admin Note: manufactured by [employer] Medications albuterol 0.042% inhalation solution 3 [...] 09/08/21 13:21:00 EDT, Route to Pharmacy Electronically, [facility], Partial fill upon patient [...] 0 Refills, Maintenance, 04/02/20 9:29:00 EST, Tablet, [facility], Partial fill upon patient request [...] 06/21/18 11:05:15 EDT, Route to Pharmacy Electronically, [id number], [facility] Start Date: 06/21/18 Status: [...] WITH PROLONGED DEPRESSIVE REACTION Confirmed 02/03/07 Active [facility] [place] Team Senior Level Patient Confirmed Active ASTHMA [...] Exam Date Time Procedure Performing Provider Status 02/15/22 11:22 AM Knee 1 or 2 Views Left Sanchez , Thuthao T; Auth (Verified) Notes: (Knee 1 or 2 Views Left) Reason For Exam: Trauma RESULT: Knee 1 or 2 Views Left Left knee, 2 views INDICATION: Pain and swelling after walking last week and felt a pop COMPARISON: 10/08/2020 FINDINGS: 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 No fracture. No osteochondral defects or intra-articular loose bodies. No convincing evidence of joint effusion. IMPRESSION: No acute abnormality. Multifocal arthritis with severe involving the medial compartment. WSN: [id number] Ordering Physician: Gavin Clarke Dictated By: Jimbo Hopson MD Dictated Date/Time: 02/15/22 11:36 a Reviewed By: Jimbo Hopson MD Signed By: Jimbo Hopson MD Signed Date/Time: 02/15/22 11:36 am Transcribed By: DEIDRE Transcribed Date/Time: 02/15/22 11:34 am Vital Signs Most recent to oldest [Reference Range]: 1 2 Height 157 cm (02/15/22 1:52 PM) 157 cm (02/15/22 10:57 AM) Weight 131.2 kg (02/15/22 1:52 PM) 131.2 kg (02/15/22 10:57 AM) Oxygen Saturation [94-100 %] 99 % (02/15/22 1:52 PM) 98 % (02/15/22 10:57 AM) Pulse Rate [55-90 bpm] 89 bpm (02/15/22 1:52 PM) 96 bpm *H* (02/15/22 10:57 AM) Blood Pressure [90-138/55-84 mm Hg] 140/ 87mm Hg *H* (02/15/22 1:52 PM) 140/100mm Hg *H* (02/15/22 10:57 AM) Respiratory Rate [16-30 br/min] 18 br/mi n (02/15/22 1:52 PM) 18 br/min (02/15/22 10:57 AM) Temperature [96.8-100.4 DegF] 98.2 DegF (02/15/22 10:57 AM) Mode of Delivery (Oxygen) Room air (02/15/22 1:52 PM) Room air (02/15/22 10:57 AM) Blood pressure sites Arm, left (02/15/22 1:52 PM) Temperature Route Temporal (02/15/22 10:57 AM) Dry Weight 131.2 kg (02/15/22 1:52 PM) 131.2 kg (02/15/22 10:57 AM) Weight Obtained Via Standing scale (02/15/22 10:57 AM) Dry Weight Obtained Via Standing scale (02/15/22 10:57 AM) Social History Social History Type Response Smoking Status Former smoker; Other : quit 04/2015; entered on: 01/30/16 Sex Female Note * Hayden SHERIFF, Mainor Mary: PERFORM Event Display: Patient Education Leaflets Authored Date: [id number] Knee Immobilizer ?? [id number] Knee Immobilizer A knee immobilizer is a type of brace used to provide support and limit movement of the knee. It will make you more comfortable as your injury heals. Home care ??? The knee brace should be worn whenever you are out of bed, unless told otherwise. Youmay wear it in bed while asleep for the first few nights or until the pain starts to go away. Otherwise, you can remove the brace at night to prevent muscle stiffness from lack of joint movement. ???You can open the??vbli-bqz-rotk??brace to dress, bathe, and apply ice??or heat??packs as directed. ?? Call 911 Call 911 if you have: ??? Shortness of breath ??? Chest pain ?? When to get medical advice Call your healthcare provider right away if any of these occur: ??? Knee pain gets worse ??? Weakness, numbness, or tingling in the foot ??? Increased swelling, redness, or warmth of the??knee joint ?? Last Reviewed Date: 2021 ?? 7692-0736 [employer]. All rights reserved. This information is not intended as a substitute for professional medical care. Always follow your healthcare professional's instructions. ?? * Hayden SHERIFF, Mainor Mary: PERFORM Event Display: Patient Education Leaflets Authored Date: [id number] Knee Sprain ?? [id number] Knee Sprain A sprain is an injury to the ligaments or capsule that holds a joint together. There are no broken bones. Most sprains take 3 to 6 weeks to heal. If it's a severe sprain where the ligament is completely torn, it can take months to recover. Most knee sprains are treated with a splint, knee immobilizer brace, or elastic wrap for support. Severe sprains may rarely require surgery. Home care ??? Stay off the injured leg as much as possible until you can walk on it without pain. If you have a lot of pain with walking, crutches or a walker may be prescribed. (These can be rented or purchased at many pharmacies and surgical or orthopedic supply stores). Follow your healthcare provider's advice about when to begin putting weight on that leg. ??? Keep your leg raised (elevated) to reduce pain and swelling. When sleeping, place a pillow under the injured leg. When sitting, support the injured leg so it's above heart level. This is very important during the first 48 hours. ???Apply an ice pack over the injured area for 15 to 20 minutes every??2 to 3 ??hours. You should do this for??the first??24 to 48 hours.??To make an ice pack, put ice cubes in a plastic bag that seals at the top. Wrap the bag in a thin towel. Continue to use ice packs to ease pain and swelling as needed. As the ice melts, be careful to avoid getting your wrap, splint, or cast wet. After 48 to 72 hours or as directed by your healthcare provider, apply heat??(warm shower or??warm bath)??for 15 to 20 minutes several times a day, or alternate ice and heat.??You can place the ice pack directly over the splint. If you have to wear a bfbc-ntm-noov??knee brace, you can open it to apply the ice pack, or heat, directly to the knee. Never put ice directly on the skin. Always wrap the ice in a towel orother type of cloth. ??? You may use??qiwf-wod-dpdmwbb pain medicine??to control pain, unless another pain medicine was prescribed. If you have chronic liver or kidney disease, ever had a stomach ulcer or gastrointestinal bleeding, or take a blood thinner, talk with your healthcare provider before??using these medicines. ??? If you were given a splint, keep it completely dry at all times. Bathe with your splint out of the water, protected with??2 large plastic bags, sealed with rubber bands or tape at the top end. If a fiberglass splint gets wet, you can dry it with a balance and hairspring assembler set to cool. If you have a??pyob-xqb-wphi??knee brace, you can remove this to bathe, unless told otherwise. ?? Follow-up care Follow up with your doctor, or as advised. Any X-rays you had today don???t show any broken bones, breaks, or fractures. Sometimes fractures don???t show up on the first X-ray. Bruises and sprains can sometimes hurt as much as a fracture. These injuries can take time to heal completely. If your symptoms don???t improve or they get worse, talk with your doctor. You may need a repeat X- ray.??If X-rays were taken, you will be told of any new findings that may affect your care. ?? Call 911 Call 911 if you have: ?Shortness of breath ?Chest pain ?? When to get medical advice Call your healthcare provider right away??if any of these occur: ??? The??splint??or knee immobilizer??brace??becomes wet or soft ??? The fiberglass cast or splint stays wet for more than 24 hours ??? Pain or swelling get worse ??? The injured leg??or??toes become cold, blue, numb, or tingly ?? Last Reviewed Date: 2021 ?? [id number] [employer]. All rights reserved. This information is not intended as a substitute for professional medical care. Always follow your healthcare professional's instructions. ?? 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 No fracture. No osteochondral defects or intra-articular loose bodies. No convincing evidence of joint effusion. IMPRESSION: No acute abnormality. Multifocal arthritis with severe involving the medial compartment. WSN: [id number] Ordering Physician: Gavin Clarke Dictated By: Jimbo Hopson MD Dictated Date/Time: 02/15/22 11:36 a Reviewed By: Jimbo Hopson MD Signed By: Jimbo Hopson MD Signed Date/Time: 02/15/22 11:36 am Transcribed By: DEIDRE Transcribed Date/Time: 02/15/22 11:34 am Patient Care team information Care Team Personnel Name: Lola Belcher RN Position: [facility] RN Member Role: Primary Care Nurse Name: Jose Enrique Saul RN Position: S RN Member Role: Primary Care Nurse Name: Symone Mckinnon RN Position: [facility] RN Member Role: Primary Care Nurse Name: Carolyn Pelaez RN Position: [facility] RN Member Role: Primary Care Nurse Name: Deanna Garcia RN Position: [facility] RN Member Role: Primary Care Nurse Name: Fanny Mixon RN Position: [facility] ED RN W/OE and Tasks Member Role: Primary Care Nurse Name: María Ashford RN Position: [facility] AMB Nurse Member Role: Primary Care Nurse Name: Chanelle Hernandez RN Position: [facility] PCO RN Member Role: Primary Care Nurse Name: Estelle García RN Position: [facility] RN Member Role: Primary Care Nurse Name: Deanne Rangel RN Position: [facility] RN Member Role: Primary Care Nurse Name: Carine Jimenez RN Position: [facility] SN RN Member Role: Primary Care Nurse Name: Jenelle Campo RN Position: [facility] RN Member Role: Primary Care Nurse Name: Keyla Godwin RN Position: [facility] RN Member Role: Primary Care Nurse Name: Yeimi Devine RN Position: [facility] RN Member Role: Primary Care Nurse Name: Mary Yan RN Position: [facility] RN Member Role: Primary Care Nurse Name: Iliana Pop RN Position: [facility] RN Member Role: Primary Care Nurse Name: Alcides Dueñas RN Position: [facility] RN Member Role: Primary Care Nurse Name: Lisa Beatty Position: [facility] Outreach Member Role: Lifetime Consulting Physician Name: Armida Beatty RN Position: [facility] RN Member Role: Primary Care Nurse Name: Roque Villasenor MD Position: [facility] Renal MD Member Role: Lifetime Consulting Physician Address: Address: [address] [place] [address], [address] [facility] [address] Name: Lashon Lovell RN Position: [facility] SN RN Member Role: Primary Care Nurse Name: Kristi Giraldo RN Position: [facility] RN Supv Member Role: Primary Care Nurse Name: Jerrod Casarez RN Position: [facility] RN Member Role: Primary Care Nurse Name: Rosalva Martin RN Position: [facility] RN Member Role: Primary Care Nurse Name: Armida Ochoa RN Position: [facility] RN Member Role: Primary Care Nurse Name: Deonna Murillo RN Position: [facility] RN Member Role: Primary Care Nurse Name: Felipa Diehl RN Position: [facility] HBO Wound Member Role: Primary Care Nurse Name: Evelin Pwoell RN Position: [facility] AMB Nurse Member Role: Primary Care Nurse Name: Deonna Pendleton RN Position: [facility] RN Member Role: Primary Care Nurse Name: Pili Kaba RN Position: [facility] ED RN W/OE and Tasks Member Role: Primary Care Nurse Name: Alejandro Yanes RN Position: [facility] RN Member Role: Primary Care Nurse Name: Stacey Díaz RN Position: [facility] SN RN Member Role: Primary Care Nurse Name: Jac Reese RN Position: [facility] RN Member Role: Primary Care Nurse Name: Celestine Schwartz RN Position: [facility] RN Member Role: Primary Care Nurse Name: Neeta Carpenter RN Position: [facility] RN Member Role: Primary Care Nurse Name: Susie Estrada RN Position: [facility] RN Member Role: Primary Care Nurse Name: Inna Cantor RN Position: [facility] RN Member Role: Primary Care Nurse Name: Chaparrita Pizano DO Position: [facility] Physician (General Medicine) Member Role: PCP Address: Address: [address] [place] [id number]- Name: Ning Rolon RN Position: [facility] RN Member Role: Primary Care Nurse Name: Rubi Carrasco RN Position: [facility] SN RN Member Role: Primary Care Nurse Name: Lauryn Holden RN Position: [facility] RN Member Role: Primary Care Nurse Name: Shen Silvestre RN Position: [facility] RN Member Role: Primary Care Nurse Name: Jones Cervantes RN Position: [facility] RN Member Role: Primary Care Nurse Name: Olivia Caputo RN Position: [facility] RN Member Role: Primary Care Nurse Name: Brooklyn Jim RN Position: [facility] RN Member Role: Primary Care Nurse Name: Kimberly Santoro RN Position: [facility] RN Member Role: Primary Care Nurse Name: Haley Diamond RN Position: [facility] RN Member Role: Primary Care Nurse Name: Ashley Meléndez NP Position: [facility] PCO Associate Professional Member Role: Primary Care Nurse Address: Address: [address] [place] [address] [address] [place] [address]- [place] Name: Siomara Patricia RN Position: [facility] PCO RN Member Role: Primary Care Nurse Name: Neeta Painter RN Position: [facility] RN Member Role: Primary Care Nurse Name: Edith Drummond RN Position: [facility] RN Member Role: Primary Care Nurse Name: Bailey Espinal RN Position: [facility] AMB Nurse Member Role: Primary Care Nurse Name: Brooklyn Ramsey RN Position: [facility] RN Member Role: Primary Care Nurse Name: Keyla Bright RN Position: [facility] RN Member Role: Primary Care Nurse Name: Beverley Tatum RN Position: [facility] RN Member Role: Primary Care Nurse Name: Mainor Devries RN Position: [facility] RN Member Role: Primary Care Nurse Name: Yarely Richards RN Position: [facility] [employer] Member Role: Primary Care Nurse Name: Oralia Massey RN Position: [facility] RN Member Role: Primary Care Nurse Name: Rich WILSON pee Position: [facility] RN Member Role: Primary Care Nurse Name: Taiwo Mcgregor RN Position: [facility] RN Member Role: Primary Care Nurse Name: Cally Funes RN Position: [facility] SN RN Member Role: Primary Care Nurse Name: Marina Osorio Position: [facility] RN Member Role: Primary Care Nurse Name: Lisa Blanton RN Position: [facility] [employer] Member Role: Primary Care Nurse Name: Danica Stuart RN Position: [facility] AMB Nurse Member Role: Primary Care Nurse Name: Shruthi Ray RN Position: [facility] RN Member Role: Primary Care Nurse Name: Abbe Choe RN Position: [facility] RN Supv Member Role: Primary Care Nurse Name: Farideh Cat LPN Position: [facility] RN Member Role: Primary Care Nurse Name: Janis Morris RN Position: [facility] [employer] Member Role: Primary Care Nurse Name: Darrian Chang RN Position: [facility] [employer] Member Role: Primary Care Nurse Name: Jerry Mcneill RN Position: [facility] RN Member Role: Primary Care Nurse Name: Mainor Blake MD Position: [facility] ED Medicine MD Member Role: Admitting Physician Address: Address: [address] [place] [address] [place] [address]- [place] Name: Jamilah Stark RN Position: [facility] ED RN W/OE and Tasks Member Role: Patient Care Provider Name: Aria Umaña Position: [facility] ED TA [facility] Member Role: Patient Care Provider Care Team Related Persons Name: CHERELLE IVAN Address: [place] [address] Name: REYNALDO KAUR Address: home [address] [place] [address] Name: EMMA SERRANO Address: home [address] [address] Name: PATRICK MATA Address: home [address] [place] [address] Name: FARIDEH POPE Address: [place] [address]
--- OUTSIDE RECORDS SUMMARY | 2022-08-31 01:07 | XMS_ITS | Continuity of Care Document ---
Author Name Unknown Organization [facility] ter Address [address] [place] [address]- Care Team Providers Care Is Project Manager Name Role Phone Jerica DOChaparrita Primary Care Physician [place] [facility] [place] - 04/09/[address] [address]- Attending Physician: Donald Murphy MD Admitting Physician: Donald Murphy MD Referring Physician: Donald Murphy MD Allergies, Adverse Reactions, Alerts Substance Reaction Severity Status doxycycline mouth swelling Active ceftriaxone hives Active morphine 1, 2, 3 hives Active Pepcid vomitng Active penicillin throat swelling Rash Persistent Severe Active famotidine vomiting Active iodine topical swelling itching Active melatonin Active Zofran 4 can only be given w/ benadryl hives Active Tylenol hives Active Adhesive Bandage skin excoriation hives Active Seafood Anaphylactic shock d ue to adverse food reaction Severe Active Levaquin tingling in mouth, rash Acti ve Compazine shortness of breath Active Reglan severe restless legs Active Contrast Dye hives itchy throat itchy Persistent Mild Active Latex vag rash Active Nexium diarrhea, vomitting Active Lyrica Angioedema Active Lantiseptic Skin Protectant Active Nicotine Patch ana cardia Active 1plizzie [...] to receive vaccine 2Admin Note: manufactured by [employer] P[employer]ur Medications albuterol 0.042% inhalation solution 3 [...] 03/12/22 12:08:00 EST, Route to Pharmacy Electronically, [facility], Partial fill upon [...] 03/09/23 23:00:00 EST, 03/12/22 12:09:00 EST, Syrup, [facility], Partial fill upon [...] 03/09/23 23:00:00 EST, 03/12/22 12:10:00 EST, Patch, [facility], Partial fill upon [...] tablet, 0 Refills, Maintenance, 04/02/20 9:29:00 EST, [facility], Partial fill upon patient [...] 03/12/22 12:06:00 EST, Route to Pharmacy Electronically, [facility], Partial fill uponpatient request if [...] 06/21/18 11:05:15 EDT, Route to Pharmacy Electronically, [id number], [facility] 3 Start Date: 06/21/18 Status: [...] WITH PROLONGED DEPRESSIVE REACTION Confirmed 02/03/07 Active [facility] [place] Team Senior Level Patient Confirmed Active ASTHMA [...] Team Personnel Name: Lola Belcher RN Position: [facility] RN Member Role: Primary Care Nurse Name: Jose Enrique Saul RN Position: [facility] RN Member Role: Primary Care Nurse Name: Symone Mckinnon RN Position: [facility] RN Member Role: Primary Care Nurse Name: Carolyn Pelaez RN Position: [facility] RN Member Role: Primary Care Nurse Name: Fanny Mixon RN Position: [facility] ED RN W/OE and Tasks Member Role: Primary Care Nurse Name: María Ashford RN Position: [facility] AMB Nurse Member Role: Primary Care Nurse Name: Chanelle Hernandez RN Position: [facility] AMB Nurse Member Role: Primary Care Nurse Name: Estelle García RN Position: [facility] RN Member Role: Primary Care Nurse Name: Deanne Rangel RN Position: [facility] RN Member Role: Primary Care Nurse Name: Carine Jimenez RN Position: [facility] SN RN Member Role: Primary Care Nurse Name: Jenelle Campo RN Position: [facility] RN Member Role: Primary Care Nurse Name: Keyla Godwin RN Position: [facility] RN Member Role: Primary Care Nurse Name: Yeimi Devine RN Position: [facility] RN Member Role: Primary Care Nurse Name: Mary Yan RN Position: [facility] RN Member Role: Primary Care Nurse Name: Iliana Pop RN Position: [facility] RN Member Role: Primary Care Nurse Name: Alcides Dueñas RN Position: [facility] RN Member Role: Primary Care Nurse Name: Lisa Beatty Position: [facility] Outreach Member Role: Lifetime Consulting Physician Name: Armida Beatty RN Position: [facility] RN Member Role: Primary Care Nurse Name: Deonna Beatty RN Position: [facility] RN Member Role: Primary Care Nurse Name: Roque Villasenor MD Position: [facility] Renal MD Member Role: Lifetime Consulting Physician Address: Address: [address] [place] [address], [address] [facility] [place] [address]- [place] Name: Lashon Lovell RN Position: [facility] SN RN Member Role: Primary Care Nurse Name: Kristi Giraldo RN Position: [facility] RN Supv Member Role: Primary Care Nurse Name: Jerrod Casarez RN Position: [facility] RN Member Role: Primary Care Nurse Name: Shane Riley RN Position: [facility] RN Member Role: Primary Care Nurse Name: Isac Plascencia RN Position: [facility] RN Member Role: Primary Care Nurse Name: Rosalva Martin RN Position: [facility] RN Member Role: Primary Care Nurse Name: Sheela Matt RN Position: [facility] RN Member Role: Primary Care Nurse Name: Armida Ochoa RN Position: [facility] RN Member Role: Primary Care Nurse Name: Felipa Diehl RN Position: [facility] HBO Wound Member Role: Primary Care Nurse Name: Evelin Powell RN Position: [facility] AMB Nurse Member Role: Primary Care Nurse Name: Deonna Pendleton RN Position: [facility] RN Member Role: Primary Care Nurse Name: Pili Kaba RN Position: [facility] RN Member Role: Primary Care Nurse Name: Alejandro Yanes RN Position: [facility] RN Member Role: Primary Care Nurse Name: Stacey Díaz RN Position: [facility] SN RN Member Role: Primary Care Nurse Name: Jac Reese RN Position: [facility] RN Member Role: Primary Care Nurse Name: Celestine Schwartz RN Position: [facility] RN Member Role: Primary Care Nurse Name: Neeta Carpenter RN Position: [facility] RN Member Role: Primary Care Nurse Name: Susie Estrada RN Position: [facility] RN Member Role: Primary Care Nurse Name: Inna Cantor RN Position: [facility] RN Member Role: Primary Care Nurse Name: Chaparrita Pizano DO Position: [facility] Physician (General Medicine) Member Role: PCP Address: Address: [address] [place] [address] [place] [address]- [place] Name: Ning Rolon RN Position: [facility] RN Member Role: Primary Care Nurse Name: Rubi Carrasco RN Position: [facility] SN RN Member Role: Primary Care Nurse Name: Lauryn Holden RN Position: [facility] RN Member Role: Primary Care Nurse Name: Jones Cervantes RN Position: [facility] RN Member Role: Primary Care Nurse Name: Olivia Caputo RN Position: [facility] RN Member Role: Primary Care Nurse Name: Brooklyn Jim RN Position: [facility] RN Member Role: Primary Care Nurse Name: Kimberly Santoro RN Position: [facility] RN Member Role: Primary Care Nurse Name: Haley Diamond RN Position: [facility] RN Member Role: Primary Care Nurse Name: Ashley Meléndez NP Position: [facility] PCO Associate Professional Member Role: Primary Care Nurse Address: Address: [address] [place] [address]- Name: Siomara Patricia RN Position: [facility] PCO RN Member Role: Primary Care Nurse Name: Neeta Painter RN Position: [facility] RN Member Role: Primary Care Nurse Name: Edith Drummond RN Position: [facility] RN Member Role: Primary Care Nurse Name: Bailey Espinal RN Position: [facility] AMB Nurse Member Role: Primary Care Nurse Name: Brooklyn Ramsey RN Position: [facility] RN Member Role: Primary Care Nurse Name: Keyla Bright RN Position: [facility] RN Member Role: Primary Care Nurse Name: Beverley Tatum RN Position: [facility] RN Member Role: Primary Care Nurse Name: Mainor Devries RN Position: [facility] RN Member Role: Primary Care Nurse Name: Yarely Richards RN Position: [facility] Textiles Printer Member Role: Primary Care Nurse Name: Oralia Massey RN Position: [facility] RN Member Role: Primary Care Nurse Name: Cassie Villanueva RN Position: [facility] RN Member Role: Primary Care Nurse Name: Taiwo Mcgregor RN Position: [facility] RN Member Role: Primary Care Nurse Name: Cally Funes RN Position: [facility] RN Member Role: Primary Care Nurse Name: Marina Osorio Position: [facility] RN Member Role: Primary Care Nurse Name: Lisa Blanton RN Position: [facility] Textiles Printer Member Role: Primary Care Nurse Name: Danica Stuart RN Position: [facility] AMB Nurse Member Role: Primary Care Nurse Name: Arleen RNVirginia Position: [facility] RN Member Role: Primary Care Nurse Name: Shruthi Ray RN Position: [facility] Onco RN Member Role: Primary Care Nurse Name: Abbe Choe RN Position: [facility] RN Supv Member Role: Primary Care Nurse Name: Farideh Cat LPN Position: [facility] RN Member Role: Primary Care Nurse Name: Janis Morris RN Position: [facility] Text[employer] Printer Member Role: Primary Care Nurse Name: Darrian Chang RN Position: [facility] Text[employer] Printer Member Role: Primary Care Nurse Name: Josef Woods RN Position: [facility] RN Member Role: Primary Care Nurse Name: Siomara Raphael Position: [facility] RN Member Role: Primary Care Nurse Name: Jerry Mcneill RN Position: [facility] RN Member Role: Primary Care Nurse Care Team Related Persons Name: IVAN VILLASENOR Address: [place] [address] Name: REYNALDO KAUR Address: home [address] [place] [address] Name: EMMA SERRANO Address: home [address] [address] Name: PATRICK MATA Address: home [address] [place] [address] Name: FARIDEH POPE Address: [place] [address]
--- OUTSIDE RECORDS SUMMARY | 2022-08-31 01:07 | XMS_ITS | Continuity of Care Document ---
Author Name Unknown Organization [facility] ter Address [address] [place] [address]- Care Team Providers Care Enrollment Consultant Name Role Phone Darryl Pizano DOdavidradha Gupta Primary Care Physician Encounter [facility] [place] Date(s): 12/28/21 - 04/26/[address] [address]- Attending Physician: Donald Murphy MD Admitting Physician: Donald Murphy MD Referring Physician: Donald Murphy MD Allergies, Adverse Reactions, Alerts Substance Reaction Severity Status doxycycline mouth swelling Active ceftriaxone hives Active penicillin throat swelling Rash Persistent Severe Active iodine topical swelling itching Active famotidine vomiting Active morphine 1, 2, [...] to receive vaccine 2Admin Note: manufactured by [employer] Pasteur Medications albuterol 0.042% inhalation solution 3 [...] 03/12/22 12:08:00 EST, Route to Pharmacy Electronically, [facility], Partial fill upon patient [...] 03/09/23 23:00:00 EST, 03/12/22 12:09:00 EST, Syrup, [facility], Partial fill upon patient [...] 03/09/23 23:00:00 EST, 03/12/22 12:10:00 EST, Patch, [facility], Partial fill upon patient [...] tablet, 0 Refills, Maintenance, 04/02/20 9:29:00 EST, [facility], Partial [...] 03/12/22 12:06:00 EST, Route to Pharmacy Electronically, [facility], Partial fill uponpatient request if [...] 06/21/18 11:05:15 EDT, Route to Pharmacy Electronically, [id number], [facility] 3 Start [...] WITH PROLONGED DEPRESSIVE REACTION Confirmed 02/03/07 Active [facility] [place] Team Senior Level Patient Confirmed Active ASTHMA [...] Hernandez RN Position: [facility] AMB Nurse Member Role: Primary Care Nurse Name: Estelle García RN Position: [facility] RN Member Role: Primary Care Nurse Name: Deanne Rangel RN Position: [facility] RN Member Role: Primary Care Nurse Name: Carine Jimenez RN Position: [facility] SN [...] Care Nurse Name: Deonna Beatty RN Position: [facility] RN Member Role: Primary Care Nurse Name: Roque Villasenor MD Position: [facility] Renal MD Member Role: Lifetime Consulting Physician Address: Address: [address] [place] [address], [address] [facility] [place] [address]- Name: Lashon Lovell RN Position: [facility] SN RN Member Role: Primary Care Nurse Name: Kristi Giraldo RN Position: [facility] RN Supv Member Role: Primary Care Nurse Name: Jerrod Casarez RN Position: [facility] RN Member Role: Primary Care Nurse Name: Shane Riley RN Position: [facility] RN Member Role: Primary Care Nurse Name: Isac Plascencia RN Position: [facility] RN Member Role: Primary Care Nurse Name: Rosalva Martin RN Position: [facility] RN Member Role: Primary Care Nurse Name: Sheela Matt RN Position: [facility] RN [...] Care Nurse Name: Neeta Carpenter RN Position: [facility] RN Member Role: Primary Care Nurse Name: Susie Estrada RN Position: [facility] RN Member Role: Primary Care Nurse Name: Inna Cantor RN Position: [facility] RN Member Role: Primary Care Nurse Name: Chaparrita Pizano DO Position: [facility] Physician (General Medicine) Member Role: PCP Address: Address: [address] [place] [address] [place] [address]- [place] Name: Ning Rolon RN [facility]: [facility] Member Role: Primary Care Nurse Name: Brooklyn iJm RN Position: [facility] RN Member Role: Primary Care Nurse Name: Kimberly Santoro RN Position: [facility] RN Member Role: Primary Care Nurse Name: Haley Diamond RN Position: [facility] RN Member Role: Primary Care Nurse Name: Ashley Meléndez NP Position: [facility] PCO Associate Professional Member Role: Primary Care Nurse Address: Address: [address] [place] [address]- Name: Siomara Patricia RN [facility]: [facility] [...] Care Nurse Name: Yarely Richards RN Position: [facility] It Technical Architect Member Role: Primary Care Nurse Name: Oralia Massey RN Position: [facility] RN Member Role: Primary Care Nurse Name: Cassie Villanueva RN Position: [facility] RN Member Role: Primary Care Nurse Name: Taiwo Mcgregor RN Position: [facility] RN Member Role: Primary Care Nurse Name: Cally Funes RN Position: [facility] RN Member Role: Primary Care Nurse Name: Marina Osorio Position: [facility] RN Member Role: Primary Care Nurse Name: Lisa Blanton RN Position: [facility] It Technical Architect Member Role: Primary Care Nurse Name: Danica Stuart RN Position: [facility] AMB Nurse Member Role: Primary Care Nurse Name: Virginia Bacon RN Position: [facility] RN Member Role: Primary Care Nurse Name: Shruthi Ray RN Position: [facility] Onco RN Member Role: Primary Care Nurse Name: Abbe Choe RN Position: [facility] RN Supv Member Role: Primary Care Nurse Name: Farideh Cat LPN Position: [facility] RN Member Role: Primary Care Nurse Name: Janis Morris RN Position: [facility] It Technical Architect Member Role: Primary Care Nurse Name: Darrian Chang RN Position: [facility] It Technical Architect Member Role: Primary Care Nurse Name: Josef Woods RN Position: [facility] RN Member Role: Primary Care Nurse Name: Siomara Raphael Position: [facility] ED RN W/OE and Tasks Member Role: Primary Care Nurse Name: Jerry Mcneill RN Position: [facility] RN Member Role: Primary Care Nurse Care Team Related Persons Name: IVAN VILLASENOR Address: [place] [address] Name: REYNALDO KAUR Address: home [address] [place] [address] Name: EMMA SERRANO Address: home [address] [address] Name: PATRICK MATA Address: home [address] [place] [address] Name: FARIDEH POPE Address: [place] [address]
--- OUTSIDE RECORDS SUMMARY | 2022-08-31 01:08 | XMS_ITS | Continuity of Care Document ---
Author Name Unknown Organization [facility] Address [address] [place] [address]- Care Team Providers Care Incinerator Plant General Supervisor Name Role Phone Chaparrita Pizano DO Primary Care Physician Encounter [facility] [place] Date(s): 04/10/20 - 05/10/20 [facility] [address] [place], [place] [address] Allergies, Adverse Reactions, Alerts Substance Reaction [...] 1 02/02/07 Given 1Admin Note: manufactured by [employer] Pasteur Medications albuterol 0.042% inhalation solution 3 [...] Refills, Maintenance, 04/03/20 13:23:00 EST, Solution, [id number], Partial fill upon patient request if the [...] 0 Refills, Soft Stop, 04/09/20 13:16:00 EST, [facility], Partial fill upon [...] 0 Refills, Maintenance, 04/02/20 9:29:00 EST, Tablet, [facility], Partial fill upon patient request if the prescription is for a schedule II opioid drug., 154.94, cm, 0... Start Date: 04/02/20 Status: Ordered oxyCODONE 10 mg oral tablet 2 tablet = 20 mg, By Mouth, Every 6 hours, PRN Pain , Severe, take 1 tab for less severe pain, # 56tablet, 0 Refills, Maintenance, 05/09/20 16:38:00 EDT, Tablet, [facility]/pharmacy #[id number], Partial fill upon patient request if the [...] 08/30/17 8:21:42 EDT, Route to Pharmacy Electronically, [id number], [facility]/pharmacy #[id number] Start Date: 08/30/17 Status: Ordered Tums 500 mg oral tablet, chewable 500 mg, 1, tablet, Chew, Every 4 hours, PRN, # 180 tablet, Refills 0, Tot. Refills 0, Maintenance, Dyspepsia, 06/21/18 11:05:15 EDT, Route to Pharmacy Electronically, [id number], [facility] Start Date: 06/21/18 [...] WITH PRO LONGED DEPRESSIVE REACTION(Confirmed) 02/03/07 Active [facility] Team Senior Level [...]
--- OUTSIDE RECORDS SUMMARY | 2022-08-31 01:08 | XMS_ITS | Continuity of Care Document ---
Author Name Unknown Organization [facility] Address [address] [place] [address]- Care Team Providers Care Medical Social Worker Name Role Phone Chaparrita Pizano DO Primary Care Physician [id number] Date[facility]s): 04/15/20 - 08/28/20 [facility] [address] [place] [address]- Discharge Disposition: A-D/C Home Attending Physician: Rosenda [...] to receive vaccine 2Admin Note: manufactured by [employer]ur Medications albuterol 0.042% inhalation solution 3 [...] 0 Refills, Soft Stop, 04/09/20 13:16:00 EST, [facility], Partial fill upon patient [...] 0 Refills, Maintenance, 04/02/20 9:29:00 EST, Tablet, [facility], Partial fill upon patient request if the prescription is for a schedule II opioid drug., 154.94, cm, 0... Start Date: 04/02/20 Status: Ordered oxyCODONE 10 mg oral tablet See Instructions, 1 tablet By Mouth 5 times per day for 7 days, per pain services recommedations, #35 tablet, 0 Refills, Maintenance, 06/20/20 8:49:00 EDT, Tablet, [facility]/pharmacy #[id number], Partial fill upon patient request if the [...] 08/30/17 8:21:42 EDT, Route to Pharmacy Electronically, [id number], [facility]/pharmacy #[id number] Start Date: 08/30/17 Status: Ordered Tums 500 mg oral tablet, chewable 500 mg, 1, tablet, Chew, Every 4 hours, PRN, # 180 tablet, Refills 0, Tot. Refills 0, Maintenance, Dyspepsia, 06/21/18 11:05:15 EDT, Route to Pharmacy Electronically, [id number], [facility] Start Date: [...] WITH PRO LONGED DEPRESSIVE REACTION(Confirmed) 02/03/07 [address] [facility] Emeral [facility] Team [...]
--- OUTSIDE RECORDS SUMMARY | 2022-08-31 01:08 | XMS_ITS | Continuity of Care Document ---
Author Name Unknown Organization [facility] ter Address [address] [place] [address]- Care Team Providers Care Forestry Technician Name Role Phone Jerica Chaparrita DO Primary Care Physician Encounter [facility] Date(s): 11/08/21 - 11/09/[address] [address]- Discharge Disposition: A-D/C Walkout Attending Physician: Not [...] to receive vaccine 2Admin Note: manufactured by [employer] Medications albuterol 0.042% inhalation solution 3 [...] 09/08/21 13:21:00 EDT, Route to Pharmacy Electronically, [facility], Partial fill [...] 08/31/22 13:22:00 EDT, 08/31/20 13:21:00 EDT, Syrup, [facility]/pharmacy #[id number], Partial fill upon patient request if [...] 0 Refills, Maintenance, 04/02/20 9:29:00 EST, Tablet, [facility], Partial fill [...] 06/21/18 11:05:15 EDT, Route to Pharmacy Electronically, [id number], [facility] Start Date: 06/21/18 [...] WITH PRO LONGED DEPRESSIVE REACTION(Confirmed) 02/03/07 Active [facility] Emer[facility] d Team Senior Level [...] 3 Oxygen Saturation [94-100 %] 97 % (11/08/21 10:24 PM) 98 % (11/08/21 9:15 PM) 99 % (11/08/21 7:11 PM) Pulse Rate [55-90 bpm] 97 bpm *H* (11/08/21 10:24 PM) 97 bpm *H* (11/08/21 9:15 PM) 97 bpm *H* (11/08/21 7:11 PM) Blood Pressure [90-138/55-84 mm Hg] 133/84mm Hg (11/08/21 10:24 PM) 126/73mm Hg (11/08/21 9:15 PM) 100/78mm Hg (11/08/21 7:11 PM) Respiratory Rate [16-30 br/min] 18 br/min (11/08/21 5:50 PM) Temperature [96.8-100.4 DegF] 98 DegF (11/08/21 10:24 PM) 97.9 DegF (11/08/21 9:15 PM) 98.5 DegF (11/08/21 7:11 PM) Mode of Delivery (Oxygen) Room air (11/08/21 10:24 PM) Room air (11/08/21 9:15 PM) Room air (11/08/21 7:11 PM) Blood pressure sites Arm, left (11/08/21 10:24 PM) Arm, left (11/08/21 9:15 PM) Arm, left (11/08/21 7:11 PM) Temperature Route Oral (11/08/21 10:24 PM) Oral (11/08/21 9:15 PM) Oral (11/08/21 7:11 PM) Social History Social History Type Response Smoking Status Former smoker; Other : quit 04/2015; entered on: 01/30/16 Sex Care Team Personnel Name: Chaparrita Pizano DO Address: [address] [place] [address] [place] [address]-
--- OUTSIDE RECORDS SUMMARY | 2022-08-31 01:08 | XMS_ITS | Continuity of Care Document ---
Author Name Unknown Organization [facility] ter Address [address] [place] [id number]- Care Team Providers [facility] At Home Independent Call Center Agent Name Role Phone Chaparrita Pizano DO Primary Care Physician ( [phone] Encounter [facility] Date(s): 02/27/22 - 03/12/[address] [address]- Discharge Disposition: A-Transfer VNA/Home Health Attending Physician: Oralia Santiago MD Admitting Physician: Bety Loyd MD Referring Physician: Not on Staff, Referring [...] to receive vaccine 2Admin Note: manufactured by [employer] Medications albuterol 0.042% inhalation solution 3 [...] 03/12/22 12:08:00 EST, Route to Pharmacy Electronically, [facility], Partial fill upon patient [...] 03/09/23 23:00:00 EST, 03/12/22 12:09:00 EST, Syrup, [facility], Partial fill upon patient request if the prescription i... Start Date: 03/12/22 Stop Date: 03/09/23 Status: Ordered Dilaudid 2 mg oral tablet 4 mg, Tablet, By Mouth, Every 4 hours, Hold for: sedation, PRN for Pain , Moderate, Routine, 03/07/22 3:42:00 EST Start Date: 03/07/22 Stop Date: 03/13/22 Status: Discontinued ENSURE CLEAR LIQD ENSURE CLEAR LIQD, 1 [...] 03/09/23 23:00:00 EST, 03/12/22 12:10:00 EST, Patch, [facility], Partial fill upon patient [...] tablet, 0 Refills, Maintenance, 04/02/20 9:29:00 EST, [facility], Partial fill upon patient [...] 03/12/22 12:06:00 EST, Route to Pharmacy Electronically, [facility], Partial fill uponpatient request if the [...] 06/21/18 11:05:15 EDT, Route to Pharmacy Electronically, [id number], [facility] Start Date: 06/21/18 Status: [...] WITH PROLONGED DEPRESSIVE REACTION Confirmed 02/03/07 Active [facility] Team Senior Level Patient Confirmed Active ASTHMA [...] for Microbiology Reports Name Date Blood Culture 03/07/22 Blood Culture #2 03/07/22 Blood Culture 03/06/22 Blood Culture #2 03/06/22 Blood Culture 03/05/22 Blood Culture 03/05/22 Blood Culture #2 03/05/22 Catheter Tip Culture 03/04/22 Blood Culture 03/04/22 Blood Culture #2 03/04/22 Microbiology Reports (Most Recent Ten) TEST:Blood Culture STATUS:Auth (Verified) BODY SITE: SOURCE:Blood COLLECTED DATE/TIME:03/07/22 9:33 AM Blood Culture SPECIMEN DESCRIPTION : BLOOD LARM SPECIAL REQUESTS : NONE CULTURE : NO GROWTH 5 DAYS. REPORT STATUS : FINAL 03/12/2022 TEST:Blood Culture, Second Order STATUS:Auth (Verified) BODY SITE: SOURCE:Blood COLLECTED DATE/TIME:03/07/22 9:33 AM Blood Culture, Second Order SPECIMEN DESCRIPTION : BLOOD RT ARM SPECIAL REQUESTS : NONE CULTURE : NO GROWTH 5 DAYS. REPORT STATUS : FINAL 03/12/2022 TEST:Blood Culture STATUS:Auth (Verified) BODY SITE: SOURCE:Blood COLLECTED DATE/TIME:03/06/22 12:05 AM Blood Culture SPECIMEN DESCRIPTION : BLOOD NO SITE SPECIAL REQUESTS : NONE CULTURE : NO GROWTH 5 DAYS. REPORT STATUS : FINAL 03/11/2022 TEST:Blood Culture, Second Order STATUS:Auth (Verified) BODY SITE: SOURCE:Blood COLLECTED DATE/TIME:03/06/22 12:05 AM Blood Culture, Second Order SPECIMEN DESCRIPTION : BLOOD NO SITE SPECIAL REQUESTS : NONE CULTURE : NO GROWTH 5 DAYS. REPORT STATUS : FINAL 03/11/2022 TEST:Blood Culture STATUS:Auth (Verified) BODY SITE: SOURCE:Blood COLLECTED DATE/TIME:03/05/22 4:25 PM Blood Culture SPECIMEN DESCRIPTION : BLOOD NO SITE SPECIAL REQUESTS : NONE CULTURE : NO GROWTH 5 DAYS. REPORT STATUS : FINAL 03/10/2022 TEST:Blood Culture STATUS:Auth (Verified) BODY SITE: SOURCE:Blood COLLECTED DATE/TIME:03/05/22 1:58 AM Blood Culture SPECIMEN DESCRIPTION : BLOOD NO SITE SPECIAL REQUESTS : NONE CULTURE : NO GROWTH 5 DAYS. REPORT STATUS : FINAL 03/10/2022 TEST:Blood Culture, Second Order STATUS:Auth (Verified) BODY SITE: SOURCE:Blood COLLECTED DATE/TIME:03/05/22 1:58 AM Blood Culture, Second Order SPECIMEN DESCRIPTION : BLOOD NO SITE SPECIAL REQUESTS : NONE CULTURE : NO GROWTH 5 DAYS. REPORT STATUS : FINAL 03/10/2022 TEST:Catheter Tip Culture STATUS:Auth (Verified) BODY SITE: SOURCE:HICKMA COLLECTED DATE/TIME:03/04/22 4:26 PM Catheter Tip Culture SPECIMEN DESCRIPTION : POLANCO CATHETER TIP NECK SPECIAL REQUESTS : NONE CULTURE : NO GROWTH 4 DAYS REPORT STATUS : FINAL 03/09/2022 TEST:Blood Culture STATUS:Auth (Verified) BODY SITE: SOURCE:Blood COLLECTED DATE/TIME:03/04/22 5:29 AM Blood Culture SPECIMEN DESCRIPTION : BLOOD NO SITE SPECIAL REQUESTS : NONE CULTURE : NO GROWTH 5 DAYS. REPORT STATUS : FINAL 03/09/2022 TEST:Blood Culture, Second Order STATUS:Auth (Verified) BODY SITE: SOURCE:Blood COLLECTED DATE/TIME:03/04/22 1:23 AM Blood Culture, Second Order SPECIMEN DESCRIPTION : BLOOD R HAND SPECIAL REQUESTS : NONE CULTURE : NO GROWTH 5 DAYS. REPORT STATUS : FINAL 03/09/2022 Radiology Reports (Most Recent Ten) * Exam Date Time Procedure Performing Provider Status 03/10/22 1:54 PM IR End of Case Report Aut h (Verified) IR End of Case Report * Exam Date Time Procedure Performing Provider Status 03/10/22 3:05 PM IR PICC Insert Double Lumen Auth (Verified) Notes: (IR PICC Insert Double Lumen) Reason For Exam: ?Polanco placement for pt needing chronic IV Mg + TPN requiring double port permanent access;Therapeutic IR PICC Insert Double Lumen Patient: VILMA SERRANO Study Date: 03/10/2022 Performing: Petr Jordan MD Referring: : 1975 Age: 46 Gender: FEMALE Pre-procedure diagnosis and Indication: 46 y/o F w/h/o asthma/COPD, AURELIO, HTN, DM2, GERD, HypoMg/TPN dependent, fibromyalgia, bipolar disorder, chronic abdominal/pelvic pain admitted with MSSA bacteremia likely 2/2 central line infection. Hemodynamically stable, cultures remain negative after all lines removed, now pending new line insertion. Discussed with IR potential for a DL PICC instead of the Polanco. She had significant concerns that the PICC was more of a temporary fix and in the past has had issues with PICC lines migrating in her extremities. Risk of infection, thrombosis, line failure similar from Polanco to PICC to my knowledge, attempted to reach out to surgery to see if any reason from surgical perspective to prefer one type of central access over the other but haven't heard back yet. Per IR due to her AURELIO/BiPAP hx she will need anesthesia present for Polanco placement which cannot be coordinated until later this week. These comments were obtained from the patient's medical record. Please be aware of that the risk of infection and thrombosis with a mini Polanco catheter is substantially less than with a PICC. It is not clear to me why she needs anesthesia present for a Polanco catheter placement. As detailed below it can be done with local anesthesia and kind words only. Exam: Prior to the procedure, the patient was seen and the nature of the procedure explained along with its attendant risks and benefits to . . The patient underwent a pre-anesthesia assessment. On completion of this it was determined the patient is Not appropriate for moderate sedation. As discussed with her procedure was done with local anesthesia and reassurance only.. The patient arrived in IR room 1 for a tunneled central venous catheter insertion PROCEDURE: The patient was positioned supine and secured with arm boards. The access site was evaluated with ultrasound and images archived. The site was prepped with chloraprep and draped in the usual sterile fashion. . Local anesthetic was given and The vessel was identified using, ultrasound access was gained into the left internal jugular vein using needle and wire from the kit and catheter was tunneled. The catheter was cut down to 29 cm and inserted .. The catheter was tested with good flow and return. No leaks were noted. The Catheter was flushed with heparin 10u/ml 4 ml's The catheter was Secured with a statlock and and access was closed using and tissue adhesive was used on the access site. The sterile field was maintained throughout the procedure and patient tolerated the procedure well with no complications of the procedure Extended unusual level of service. This was an unusually long procedure. As noted above the patient is not suitable for moderate sedation and was extremely anxious. As a consequence of this we spent an very long time making sure that the local anesthetic used had had more than enough time to take effect. Please also note an unusual length of time due to the patient's body habitus with a weight in excess of 120 kg as And the need to use fluoroscopy to redirect the guidewire from the left subclavian vein via from his internal jugular vein access into the brachiocephalic vein. estimated blood loss was minimal Specimens/samples: no specimens or samples were sent for [place] procedure [place] [address] [place] procedure instructions sent in envelope with the patient Impression: Satisfactory ultrasound and fluoroscopically guided placement of a tunneled CVC patient tolerated the procedure well with no complications of the procedure Should catheter malfunction develop please contact this service directly rather than having a diagnostic study performed elsewhere. This is not necessary. Extended unusual level of service. Fluoroscopy time and dose Total Fluoro Time: 1.9 mins Total dose 41 mGy Total DAP 502.3 - ?Gy/m2 No contrast was used for this procedure Local Anesthetic Lidocaine 1% w/ 4.2% sodium bicarbonate 10 ml's SQ Sensorcaine 0.5% w/ 1:200,000 Epi 10 ml's SQ Sensorcaine 0.5% w/ 1:200,000 Epi 5 ml's SQ Sensorcaine 0.5% w/ 1:200,000 Epi 5 ml's SQ Signed By Petr Jordan MD On 03/10/2022 17:37:09 Petr Jordan MD Dictated By: Petr Jordan MD Dictated Date/Time: 03/10/22 1:54 pm Reviewed By: Petr Jordan MD Signed By: Petr Jordan MD Signed Date/Time: 03/10/22 3:05 pm Transcribed By: [facility] Transcribed Date/Time: 03/10/22 3:05 pm * Exam Date Time Procedure Performing Provider Status 03/04/22 5:00 AM MRI Cervical Spine W/O Contrast Josef Martinez; Auth (Verified) Notes: (MRI Cervical Spine W/O Contrast) Reason For Exam: Back Pain RESULT: MRI Cervical Spine W/O Contrast MRI Lumbar Spine W/O Contrast, MRI Thoracic Spine W/O Contrast, MRI Cervical Spine W/O Contrast INDICATION: Reason: Back Pain; low back pain in setting of MSSA bacteremia; Clinical Question(s): Other:; ?spinal osteomyelitis, abscess; Special Instructions: contrast allergy; Order Comment: Pleasesee Reference Text for complete list of contraindications Other: TECHNIQUE: MRI of the cervical, thoracic, and lumbar spine was performed without intravenous contrast utilizing sagittal T1, sagittal T2, sagittal STIR, axial T1, and fat saturated axial T2-weighted sequences. COMPARISON: MRI cervical spine, 10/02/2017. MRI thoracic spine, 10/02/2017. MRI lumbar spine, 08/03/2021. FINDINGS: NUMBERING: There is a standard complement of 7 cervical, 12 thoracic, and 5 lumbar vertebral bodies. CERVICAL SPINE: ALIGNMENT, VERTEBRAE, MARROW, AND DISCS: There is straightening of the typical cervical lordosis without significant subluxation. Vertebral body heights are preserved. Multilevel degenerative changesare noted, most prominently Modic 2 change at C5-6 and C6-7. No marrow edema or other concerning marrow signal abnormality is seen. There is multilevel disc desiccation and loss of disc space, including moderate to marked loss of disc height at C2-3, C5-6, and C6-7. No abnormal fluid signal is seenwithin the disc spaces. POSTERIOR FOSSA AND CORD: Visualized posterior fossa is normal. The cervical cord is normal in signal and caliber. No epidural fluid collection or thickening is seen. PARASPINAL TISSUES: Soft tissues of the neck are unremarkable. Major cervical flow voids are present. DETAILED FINDINGS BY LEVEL: C2-C3: Broad-based disc osteophyte complex with bilateral uncovertebral spurring. Minimal central stenosis. No significant neural foraminal narrowing. C3-C4: Mild broad-based disc osteophyte complex with left greater than right uncovertebral spurringand mild facet hypertrophy. Mild central stenosis, greater on the left. Mild right and severe left neural foraminal narrowing. C4-C5: Broad-based disc osteophyte complex with mild endplate spurring along with bilateral facet hypertrophy. No significant central stenosis. Minimal right and no significant left neural foraminal narrowing. C5-C6: Broad-based disc osteophyte complex with bilateral uncovertebral spurring and mild facet hypertrophy. No significant central stenosis. Mild right and moderate to severe left neural foraminal narrowing. C6-C7: Broad-based disc osteophyte complex with bilateral uncovertebral spurring and mild facet hypertrophy. No significant central stenosis. Minimal bilateral neural foraminal narrowing. C7-T1: No significant disc herniation, central stenosis, or neural foraminal narrowing. The above findings are similar to prior cervical spine MRI. THORACIC SPINE: ALIGNMENT, VERTEBRAE, MARROW, AND DISCS: Alignment is normal. Lateral superiorly concavity of T11 and T12 associated with Schmorl's nodes appear similar to prior. Vertebral body heights are otherwisemaintained. Modic 2 endplate changes are present at T10-11 T11-12. No marrow edema or other concerning marrow signal abnormality is seen. There is disc desiccation and mild to moderate loss of disc space at T10-11 and T11-12, and minimal loss of disc space at T1-T2 and T6-7. No abnormal fluid signal seen within the disc spaces. CORD: The thoracic cord is normal in signal and contour. No epidural fluid collection or thickeningis seen. PARASPINAL TISSUES: Small bilateral pleural effusions are suspected. There appear to be opacities in bilateral lung bases, questionable opacity versus artifact in the anterior right upper lobe. Thesefindings are not well evaluated on MRI, and appear progressed compared to CT of 02/27/2022. Paraspinal soft tissues are otherwise unremarkable. No paraspinal fluid collection is seen. FINDINGS BY LEVEL: Multilevel small posterior disc bulges are present between T9 and T12. However, there is no significant central stenosis or neural foraminal narrowing is seen at any level in the thoracic spine. LUMBAR SPINE: ALIGNMENT, VERTEBRAE, MARROW, AND DISCS: Grade 1 anterolisthesis of L4 on L5 is noted, similar to prior. There is no spondylolysis. Alignment is otherwise preserved. Vertebral body heights are preserved. No marrow edema or other concerning marrow signal abnormality is seen. There is multilevel disc desiccation and mild loss of disc space. No abnormal fluid signal is seen within the disc spaces. CONUS: The conus is normal in signal and contour, with normal level of termination at lower L1. No epidural thickening or fluid collection is seen. PARASPINAL TISSUES: Nonspecific edema is seen in the subcutaneous fat of the lower back. There is mild fatty atrophy of the posterior paraspinal musculature. No paraspinal fluid collection or stranding is seen. DETAILED FINDINGS BY LEVEL: T12-L1: Minimal left paracentral protrusion. No significant central stenosis or neural foraminal narrowing. L1-L2: Broad-based disc bulge with superimposed left paracentral disc extrusion with slight superior migration. Minimal central stenosis, including narrowing of the left subarticular recess, but no nerve root compression. No significant neural foraminal narrowing. L2-L3: Broad-based disc bulge with bilateral facet hypertrophy and ligamentum flavum infolding, with trace facet effusions. Mild central stenosis. Mild right and minimal left neural foraminal narrowing. L3-L4: Broad-based disc osteophyte complex with central annular fissure. Bilateral facet hypertrophy and ligamentum flavum infolding with trace facet effusions. Mild central stenosis. Mild to moderate right and mild left neural foraminal narrowing. L4-L5: Grade 1 anterolisthesis with uncovering of the disc and broad-based disc bulge with superimposed cyst central protrusion. Prominent bilateral facet hypertrophy and ligamentum flavum infolding,with bilateral facet effusions. Moderate central stenosis, with crowding of bilateral traversing [id number] roots. Moderate right and mild to moderate left neural foraminal narrowing. L5-S1: Broad-based disc osteophyte complex and bilateral facet hypertrophy. No significant central stenosis. Mild right and mild to moderate left neural foraminal narrowing. The above findings are similar to the prior lumbar spine MRI. IMPRESSION: 1. No evidence of spinal infection, high-grade stenosis, or other acute abnormality of the cervical, thoracic, or lumbar spine. 2. Small right greater than left pleural effusions and patchy airspace airspace opacities, incompletely visualized but appearing progressed from 02/27/2022. Suggest correlation with dedicated chest imaging. WSN: [id number] Ordering Physician: Sapphire Bernal Dictated By: Joellen Cintron MD Dictated Date/Time: 03/04/22 9:15 am Reviewed By: Joellen Cintron MD Signed By: Joellen Cintron MD Signed Date/Time: 03/04/22 9:15 am Transcribed By: DEIDRE Transcribed Date/Time: 03/04/22 9:04 am * Exam Date Time Procedure Performing Provider Status 03/04/22 5:00 AM MRI Thoracic Spine W/O Contrast Josef Martinez; Esther (Verified) Notes: (MRI Thoracic Spine W/O Contrast) Reason For Exam: Back Pain RESULT: MRI Thoracic Spine W/O Contrast MRI Lumbar Spine W/O Contrast, MRI Thoracic Spine W/O Contrast, MRI Cervical Spine W/O Contrast INDICATION: Reason: Back Pain; low back pain in setting of MSSA bacteremia; Clinical Question(s): Other:; ?spinal osteomyelitis, abscess; Special Instructions: contrast allergy; Order Comment: Pleasesee Reference Text for complete list of contraindications Other: TECHNIQUE: MRI of the cervical, thoracic, and lumbar spine was performed without intravenous contrast utilizing sagittal T1, sagittal T2, sagittal STIR, axial T1, and fat saturated axial T2-weighted sequences. COMPARISON: MRI cervical spine, 10/02/2017. MRI thoracic spine, 10/02/2017. MRI lumbar spine, 08/03/2021. FINDINGS: NUMBERING: There is a standard complement of 7 cervical, 12 thoracic, and 5 lumbar vertebral bodies. CERVICAL SPINE: ALIGNMENT, VERTEBRAE, MARROW, AND DISCS: There is straightening of the typical cervical lordosis without significant subluxation. Vertebral body heights are preserved. Multilevel degenerative changesare noted, most prominently Modic 2 change at C5-6 and C6-7. No marrow edema or other concerning marrow signal abnormality is seen. There is multilevel disc desiccation and loss of disc space, including moderate to marked loss of disc height at C2-3, C5-6, and C6-7. No abnormal fluid signal is seenwithin the disc spaces. POSTERIOR FOSSA AND CORD: Visualized posterior fossa is normal. The cervical cord is normal in signal and caliber. No epidural fluid collection or thickening is seen. PARASPINAL TISSUES: Soft tissues of the neck are unremarkable. Major cervical flow voids are present. DETAILED FINDINGS BY LEVEL: C2-C3: Broad-based disc osteophyte complex with bilateral uncovertebral spurring. Minimal central stenosis. No significant neural foraminal narrowing. C3-C4: Mild broad-based disc osteophyte complex with left greater than right uncovertebral spurringand mild facet hypertrophy. Mild central stenosis, greater on the left. Mild right and severe left neural foraminal narrowing. C4-C5: Broad-based disc osteophyte complex with mild endplate spurring along with bilateral facet hypertrophy. No significant central stenosis. Minimal right and no significant left neural foraminal narrowing. C5-C6: Broad-based disc osteophyte complex with bilateral uncovertebral spurring and mild facet hypertrophy. No significant central stenosis. Mild right and moderate to severe left neural foraminal narrowing. C6-C7: Broad-based disc osteophyte complex with bilateral uncovertebral spurring and mild facet hypertrophy. No significant central stenosis. Minimal bilateral neural foraminal narrowing. C7-T1: No significant disc herniation, central stenosis, or neural foraminal narrowing. The above findings are similar to prior cervical spine MRI. THORACIC SPINE: ALIGNMENT, VERTEBRAE, MARROW, AND DISCS: Alignment is normal. Lateral superiorly concavity of T11 and T12 associated with Schmorl's nodes appear similar to prior. Vertebral body heights are otherwisemaintained. Modic 2 endplate changes are present at T10-11 T11-12. No marrow edema or other concerning marrow signal abnormality is seen. There is disc desiccation and mild to moderate loss of disc space at T10-11 and T11-12, and minimal loss of disc space at T1-T2 and T6-7. No abnormal fluid signal seen within the disc spaces. CORD: The thoracic cord is normal in signal and contour. No epidural fluid collection or thickeningis seen. PARASPINAL TISSUES: Small bilateral pleural effusions are suspected. There appear to be opacities in bilateral lung bases, questionable opacity versus artifact in the anterior right upper lobe. Thesefindings are not well evaluated on MRI, and appear progressed compared to CT of 02/27/2022. Paraspinal soft tissues are otherwise unremarkable. No paraspinal fluid collection is seen. FINDINGS BY LEVEL: Multilevel small posterior disc bulges are present between T9 and T12. However, there is no significant central stenosis or neural foraminal narrowing is seen at any level in the thoracic spine. LUMBAR SPINE: ALIGNMENT, VERTEBRAE, MARROW, AND DISCS: Grade 1 anterolisthesis of L4 on L5 is noted, similar to prior. There is no spondylolysis. Alignment is otherwise preserved. Vertebral body heights are preserved. No marrow edema or other concerning marrow signal abnormality is seen. There is multilevel disc desiccation and mild loss of disc space. No abnormal fluid signal is seen within the disc spaces. CONUS: The conus is normal in signal and contour, with normal level of termination at lower L1. No epidural thickening or fluid collection is seen. PARASPINAL TISSUES: Nonspecific edema is seen in the subcutaneous fat of the lower back. There is mild fatty atrophy of the posterior paraspinal musculature. No paraspinal fluid collection or stranding is seen. DETAILED FINDINGS BY LEVEL: T12-L1: Minimal left paracentral protrusion. No significant central stenosis or neural foraminal narrowing. L1-L2: Broad-based disc bulge with superimposed left paracentral disc extrusion with slight superior migration. Minimal central stenosis, including narrowing of the left subarticular recess, but no nerve root compression. No significant neural foraminal narrowing. L2-L3: Broad-based disc bulge with bilateral facet hypertrophy and ligamentum flavum infolding, with trace facet effusions. Mild central stenosis. Mild right and minimal left neural foraminal narrowing. L3-L4: Broad-based disc osteophyte complex with central annular fissure. Bilateral facet hypertrophy and ligamentum flavum infolding with trace facet effusions. Mild central stenosis. Mild to moderate right and mild left neural foraminal narrowing. L4-L5: Grade 1 anterolisthesis with uncovering of the disc and broad-based disc bulge with superimposed cyst central protrusion. Prominent bilateral facet hypertrophy and ligamentum flavum infolding,with bilateral facet effusions. Moderate central stenosis, with crowding of bilateral traversing X8wlpse roots. Moderate right and mild to moderate left neural foraminal narrowing. L5-S1: Broad-based disc osteophyte complex and bilateral facet hypertrophy. No significant central stenosis. Mild right and mild to moderate left neural foraminal narrowing. The above findings are similar to the prior lumbar spine MRI. IMPRESSION: 1. No evidence of spinal infection, high-grade stenosis, or other acute abnormality of the cervical, thoracic, or lumbar spine. 2. Small right greater than left pleural effusions and patchy airspace airspace opacities, incompletely visualized but appearing progressed from 02/27/2022. Suggest correlation with dedicated chest imaging. WSN: [id number] Ordering Physician: Sapphire Bernal Dictated By: Joellen Cintron MD Dictated Date/Time: 03/04/22 9:15 am Reviewed By: Joellen Cintron MD Signed By: Joellen Cintron MD Signed Date/Time: 03/04/22 9:15 am Transcribed By: DEIDRE Transcribed Date/Time: 03/04/22 9:04 am * Exam Date Time Procedure Performing Provider Status 03/04/22 5:00 AM MRI Lumbar Spine W/O Contrast Josef Rg; Esther (Verified) Notes: (MRI Lumbar Spine W/O Contrast) Reason For Exam: low back pain in setting of MSSA bacteremia;Back Pain RESULT: MRI Lumbar Spine W/O Contrast MRI Lumbar Spine W/O Contrast, MRI Thoracic Spine W/O Contrast, MRI Cervical Spine W/O Contrast INDICATION: Reason: Back Pain; low back pain in setting of MSSA bacteremia; Clinical Question(s): Other:; ?spinal osteomyelitis, abscess; Special Instructions: contrast allergy; Order Comment: Pleasesee Reference Text for complete list of contraindications Other: TECHNIQUE: MRI of the cervical, thoracic, and lumbar spine was performed without intravenous contrast utilizing sagittal T1, sagittal T2, sagittal STIR, axial T1, and fat saturated axial T2-weighted sequences. COMPARISON: MRI cervical spine, 10/02/2017. MRI thoracic spine, 10/02/2017. MRI lumbar spine, 08/03/2021. FINDINGS: NUMBERING: There is a standard complement of 7 cervical, 12 thoracic, and 5 lumbar vertebral bodies. CERVICAL SPINE: ALIGNMENT, VERTEBRAE, MARROW, AND DISCS: There is straightening of the typical cervical lordosis without significant subluxation. Vertebral body heights are preserved. Multilevel degenerative changesare noted, most prominently Modic 2 change at C5-6 and C6-7. No marrow edema or other concerning marrow signal abnormality is seen. There is multilevel disc desiccation and loss of disc space, including moderate to marked loss of disc height at C2-3, C5-6, and C6-7. No abnormal fluid signal is seenwithin the disc spaces. POSTERIOR FOSSA AND CORD: Visualized posterior fossa is normal. The cervical cord is normal in signal and caliber. No epidural fluid collection or thickening is seen. PARASPINAL TISSUES: Soft tissues of the neck are unremarkable. Major cervical flow voids are present. DETAILED FINDINGS BY LEVEL: C2-C3: Broad-based disc osteophyte complex with bilateral uncovertebral spurring. Minimal central stenosis. No significant neural foraminal narrowing. C3-C4: Mild broad-based disc osteophyte complex with left greater than right uncovertebral spurringand mild facet hypertrophy. Mild central stenosis, greater on the left. Mild right and severe left neural foraminal narrowing. C4-C5: Broad-based disc osteophyte complex with mild endplate spurring along with bilateral facet hypertrophy. No significant central stenosis. Minimal right and no significant left neural foraminal narrowing. C5-C6: Broad-based disc osteophyte complex with bilateral uncovertebral spurring and mild facet hypertrophy. No significant central stenosis. Mild right and moderate to severe left neural foraminal narrowing. C6-C7: Broad-based disc osteophyte complex with bilateral uncovertebral spurring and mild facet hypertrophy. No significant central stenosis. Minimal bilateral neural foraminal narrowing. C7-T1: No significant disc herniation, central stenosis, or neural foraminal narrowing. The above findings are similar to prior cervical spine MRI. THORACIC SPINE: ALIGNMENT, VERTEBRAE, MARROW, AND DISCS: Alignment is normal. Lateral superiorly concavity of T11 and T12 associated with Schmorl's nodes appear similar to prior. Vertebral body heights are otherwisemaintained. Modic 2 endplate changes are present at T10-11 T11-12. No marrow edema or other concerning marrow signal abnormality is seen. There is disc desiccation and mild to moderate loss of disc space at T10-11 and T11-12, and minimal loss of disc space at T1-T2 and T6-7. No abnormal fluid signal seen within the disc spaces. CORD: The thoracic cord is normal in signal and contour. No epidural fluid collection or thickeningis seen. PARASPINAL TISSUES: Small bilateral pleural effusions are suspected. There appear to be opacities in bilateral lung bases, questionable opacity versus artifact in the anterior right upper lobe. Thesefindings are not well evaluated on MRI, and appear progressed compared to CT of 02/27/2022. Paraspinal soft tissues are otherwise unremarkable. No paraspinal fluid collection is seen. FINDINGS BY LEVEL: Multilevel small posterior disc bulges are present between T9 and T12. However, there is no significant central stenosis or neural foraminal narrowing is seen at any level in the thoracic spine. LUMBAR SPINE: ALIGNMENT, VERTEBRAE, MARROW, AND DISCS: Grade 1 anterolisthesis of L4 on L5 is noted, similar to prior. There is no spondylolysis. Alignment is otherwise preserved. Vertebral body heights are preserved. No marrow edema or other concerning marrow signal abnormality is seen. There is multilevel disc desiccation and mild loss of disc space. No abnormal fluid signal is seen within the disc spaces. CONUS: The conus is normal in signal and contour, with normal level of termination at lower L1. No epidural thickening or fluid collection is seen. PARASPINAL TISSUES: Nonspecific edema is seen in the subcutaneous fat of the lower back. There is mild fatty atrophy of the posterior paraspinal musculature. No paraspinal fluid collection or stranding is seen. DETAILED FINDINGS BY LEVEL: T12-L1: Minimal left paracentral protrusion. No significant central stenosis or neural foraminal narrowing. L1-L2: Broad-based disc bulge with superimposed left paracentral disc extrusion with slight superior migration. Minimal central stenosis, including narrowing of the left subarticular recess, but no nerve root compression. No significant neural foraminal narrowing. L2-L3: Broad-based disc bulge with bilateral facet hypertrophy and ligamentum flavum infolding, with trace facet effusions. Mild central stenosis. Mild right and minimal left neural foraminal narrowing. L3-L4: Broad-based disc osteophyte complex with central annular fissure. Bilateral facet hypertrophy and ligamentum flavum infolding with trace facet effusions. Mild central stenosis. Mild to moderate right and mild left neural foraminal narrowing. L4-L5: Grade 1 anterolisthesis with uncovering of the disc and broad-based disc bulge with superimposed cyst central protrusion. Prominent bilateral facet hypertrophy and ligamentum flavum infolding,with bilateral facet effusions. Moderate central stenosis, with crowding of bilateral traversing O5jwozz roots. Moderate right and mild to moderate left neural foraminal narrowing. L5-S1: Broad-based disc osteophyte complex and bilateral facet hypertrophy. No significant central stenosis. Mild right and mild to moderate left neural foraminal narrowing. The above findings are similar to the prior lumbar spine MRI. IMPRESSION: 1. No evidence of spinal infection, high-grade stenosis, or other acute abnormality of the cervical, thoracic, or lumbar spine. 2. Small right greater than left pleural effusions and patchy airspace airspace opacities, incompletely visualized but appearing progressed from 02/27/2022. Suggest correlation with dedicated chest imaging. WSN: [id number] Ordering Physician: Sapphire Bernal Dictated By: Joellen Cintron MD Dictated Date/Time: 03/04/22 9:15 am Reviewed By: Joellen Cintron MD Signed By: Joellen Cintron MD Signed Date/Time: 03/04/22 9:15 am Transcribed By: DEIDRE Transcribed Date/Time: 03/04/22 9:04 am * Exam Date Time Procedure Performing Provider Status 03/03/22 3:55 AM MRI Ext Upper W+W/O Contrast Right Josef Rg; Esther (Verified) Notes: (MRI Ext Upper W+W/O Contrast Right) Reason For Exam: bacteremia with right shoulder and forearm pain;Pain/Trauma RESULT: MRI Ext Upper W+W/O Contrast Right INDICATION: Bacteremia. Arm pain. TECHNIQUE: Multiplanar multisequence MRI of the humerus was obtained with and without intravenous contrast material. 27 mL of Clariscan intravenous contrast was administered. Lvrbr-fs-fbcg includes the proximal two thirds of the humerus. The elbow is excluded from the sctjr-wd-[id number]. COMPARISONS: None. FINDINGS: Bone: Overall bone marrow signal is within normal limits. No MR evidence of osteomyelitis. No fracture. Soft tissues: No glenohumeral joint effusion. No AC joint effusion. Visualized musculature is normal in signal. Partially imaged small right pleural effusion and right basilar signal abnormality. IMPRESSION: Study limited by patient body habitus and limitations with patient positioning. The elbow was not included within the [id number]-ecxu. No MRI evidence of osteomyelitis involving the proximal two thirds of the humerus. No evidence of septic arthritis of the shoulder or AC joint. No myositis within the njvsv-ru-wkcy. At least small right pleural effusion and right basilar signal abnormality which may reflect atelectasis or pneumonia. Consider correlation with radiographs. WSN: [id number] Ordering Physician: Christal Forbes Dictated By: Han Chowdhury MD Dictated Date/Time: 03/03/22 9:34 am Reviewed By: Han Chowdhury MD Signed By: Han Chowdhury MD Signed Date/Time: 03/03/22 9:34 am Transcribed By: DEIDRE Transcribed Date/Time: 03/03/22 9:25 am * Exam Date Time Procedure Performing Provider Status 03/01/22 7:52 PM US Doppler Ext Upper Venous Right Radha Gonzalez; Auth (Verified) Notes: (US Doppler Ext Upper Venous Right) Reason For Exam: Swelling Extremities RESULT: US Doppler Ext Upper Venous Right US Doppler Ext Upper Venous Right Reason: Swelling Extremities; Clinical Question(s): Thrombosis COMPARISON: None. IMAGING TECHNIQUE: Ultrasound examination of the upper extremity deep venous system was performed using grayscale, color, and spectral wave analysis including response to compression. Assessment includes the contralateral jugular and subclavian vein. FINDINGS: Internal jugular vein: Patent. No thrombosis. Subclavian vein: Patent. No thrombosis. Axillary vein: Patent. No thrombosis. Brachial vein: Patent. No thrombosis. Basilic vein: Patent. No thrombosis. Cephalic vein: Patent. No thrombosis. Contralateral internal jugular vein: Patent. No thrombosis. Contralateral subclavian vein: Patent. No thrombosis. IMPRESSION: No evidence of venous thrombosis. WSN: [id number] Ordering Physician: Jeb Hopkins Dictated By: Rex Ojeda MD Dictated Date/Time: 03/01/22 8:05 pm Reviewed By: Rex Ojeda MD Signed By: Rex Ojeda MD Signed Date/Time: 03/01/22 8:05 pm Transcribed By: DEIDRE Transcribed Date/Time: 03/01/22 8:05 pm * Exam Date Time Procedure Performing Provider Status 03/01/22 7:52 PM US Doppler Ext Lower Venous Left Radha Riggins i; Auth (Verified) Notes: (US Doppler Ext Lower Venous Left) Reason For Exam: Pain/Tenderness Extremities RESULT: US Doppler Ext Lower Venous Left US Doppler Ext Lower Venous Left Reason: Pain Tenderness Extremities; Clinical Question(s): Thrombus; Order Comment: COMPARISON: None IMAGING TECHNIQUE: Ultrasound of the veins from the groin through the calf was performed using grayscale, color, and spectral Doppler ultrasound assessing for complete compressibility and normal flowcharacteristics. FINDINGS: Common femoral vein: Patent. No thrombosis. Femoral vein: Patent. No thrombosis. Popliteal vein: Patent. No thrombosis. Gastrocnemius veins: The visualized portions are patent without evidence of thrombosis. Peroneal veins: The visualized portions are patent without evidence of thrombosis. Posterior tibial veins: The visualized portions are patent without evidence of thrombosis. Contralateral common femoral vein: Patent. No thrombosis. OTHER FINDINGS: None. IMPRESSION: No evidence of deep venous thrombosis. WSN: [id number] Ordering Physician: Jeb Hopkins Dictated By: Rex Ojeda MD Dictated Date/Time: 03/01/22 8:04 pm Reviewed By: Rex Ojeda MD Signed By: Rex Ojeda MD Signed Date/Time: 03/01/22 8:04 pm Transcribed By: DEIDRE Transcribed Date/Time: 03/01/22 8:03 pm * Exam Date Time Procedure Performing Provider Status 02/28/22 8:50 AM US Doppler Ext Lower Venous Right Gerv ais , Amarilis; Auth (Verified) Notes: (US Doppler Ext Lower Venous Right) Reason For Exam: pain at the hopkins region, patient mostly immobile, ddimer elevated. c/o pain. x2 days.;Immobility RESULT: US Doppler Ext Lower Venous Right US Doppler Ext Lower Venous Right Reason: Immobility; pain at the hopkins region, patient mostly immobile, ddimer elevated. c o pain. x2days.; Clinical Question(s): Thrombus COMPARISON: None IMAGING TECHNIQUE: Ultrasound of the veins from the groin through the calf was performed using grayscale, color, and spectral Doppler ultrasound assessing for complete compressibility and normal flowcharacteristics. FINDINGS: Common femoral vein: Patent. No thrombosis. Femoral vein: Patent. No thrombosis. Popliteal vein: Patent. No thrombosis. Gastrocnemius veins: Not visualized. Peroneal veins: Seen proximally only. The visualized portions are patent without evidence of thrombosis. Posterior tibial veins: The visualized portions are patent without evidence of thrombosis. Contralateral common femoral vein: Patent. No thrombosis. OTHER FINDINGS: IMPRESSION: Slightly limited exam. Gastrocnemius veins not visualized. Peroneal veins only seen proximally. No evidence of deep venous thrombosis. WSN: [id number] Ordering Physician: Jessica Rasmussen Dictated By: Jorden Farias MD Dictated Date/Time: 02/28/22 9:35 am Reviewed By: Jorden Farias MD Signed By: Jorden Farias MD Signed Date/Time: 02/28/22 9:35 am Transcribed By: DEIDRE Transcribed Date/Time: 02/28/22 9:33 am * Exam Date Time Procedure Performing Provider Status 02/27/22 2:[address] Angio Chest Lauryn Lazo; Aut h (Verified) Notes: (CT Angio Chest) Reason For Exam: PE suspected, Intermediate prob, positive D-dimer,;Other: RESULT: CT Angio Chest EXAMINATION: CT Angio Chest INDICATION: Hx of Present Illness: Pt coming from home. EMS was called for diff breathing, EMS found pt with AMS and pin pupils. Pt c o chest pain with inspiration.; Reason: Other:; PE suspected, Intermediate prob, positive D- dimer,; Clinical Question(s): Pulmonary Embolism; Order Comment: TECHNIQUE: Spiral CTA of the chest was performed after rapid IV contrast administration without cardiac gating, triggered by an BRIDGETTE on the main pulmonary artery. Images are formatted in multiple planes using 2-D multiplanar and 3-D maximum intensity projection. 50 cc of Omnipaque 300 was administered intravenously. Weight-based protocol using automatic tube modulation was used to optimize exposure parameters. CTDIvol Body: 5.83 mGy, DLP Body: 446 mGy*cm. COMPARISONS: None. ANGIOGRAPHIC FINDINGS: No pulmonary embolism to the subsegmental level. Normal caliber pulmonary arteries. No acute aortic abnormality seen on this study performed without cardiac gating. NON-ANGIOGRAPHIC FINDINGS: Polish Compounder View Findings, Lines and Tubes: Right-sided Port-A-Cath terminates in the right atrium. Right-sided PICC terminates at the lower SVC. Trachea and Airways: Patent without evidence of tracheal or endobronchial lesion. Lungs and Pleura: Scattered ill-defined nodular opacities within the right lower lobe measuring up to 0.6 cm on series image 47 series 604), new from prior study. Larger focal airspace opacities are seen within the lingula (image 51 series 604), and left lower lobe medially (image 64 series 604), also new. No effusion or pneumothorax. Mediastinum and jarocho: No mass or hematoma. Prominent mediastinal and hilar lymph nodes and left hilar lymph node (image 60 series 301) measures 0.8 cm. A subcarinal lymph node (image 5 series 301) measures 0.8 cm. No esophageal abnormality. Heart: Heart is normal in size. No pericardial effusion. No coronary arterial calcifications. Chest Wall Soft Tissues: Normal. Diaphragm and upper abdomen: Diaphragm is intact. Prior cholecystectomy. Bones: No acute abnormality. Degenerative changes in the thoracic spine. IMPRESSION: 1. No evidence of pulmonary embolism. 2. Focal airspace opacities in the lingula and left lower lobe as well as additional nodular opacities in the right lower lobe may be infectious or inflammatory, however recommend short-term follow-up CT to ensure resolution. WSN: [id number] Ordering Physician: Isaac Lilly Dictated By: Austen Soliz MD Dictated Date/Time: 02/27/22 3:07 pm Reviewed By: Austen Soliz MD Signed By: Austen Soliz MD Signed Date/Time: 02/27/22 3:07 pm Transcribed By: DEIDRE Transcribed Date/Time: 02/27/22 2:58 pm Vital Signs Most recent to oldest [Reference Range]: 1 2 3 Height 155 cm (03/12/22 5:53 PM) 155 cm (03/12/22 12:38 PM) 155 cm (03/12/22 4:43 AM) Weight 131.9 kg (03/12/22 5:35 AM) 129 kg (03/04/22 2:03 PM) 129 kg (02/27/22 9:12 PM) Oxygen Saturation [94-100 %] 93 % *L* (03/12/22 5:53 PM) 99 % (03/12/22 12:38 PM) 94 % (03/12/22 4:43 AM) Pulse Rate [55-90 bpm] 98 bpm *H* (03/12/22 5:53 PM) 105 bpm *H* (03/12/22 12:38 PM) 91 bpm *H* (03/12/22 4:43 AM) Body Mass Index [18.5-24.99 kg/m2] 53.69 kg/m2 *>HHI* (03/04/22 2:03 PM) 53.69 kg/m2 *>HHI* (02/27/22 9:12 PM) Blood Pressure [90-138/55-84 mm Hg] 146/84mm Hg *H* (03/12/22 5:53 PM) 141/95mm Hg *H* (03/12/22 12:38 PM) 141/85mm Hg *H* (03/12/22 4:43 AM) Respiratory Rate [16-30 br/min] 18 br/min (03/12/22 5:53 PM) 18 br/min (03/12/22 12:38 PM) 16 br/min (03/12/22 11:54 AM) Temperature [96.8-100.4 DegF] 98.3 DegF (03/12/22 5:53 PM) 99.1 DegF (03/12/22 12:38 PM) 98.3 DegF (03/12/22 4:43 AM) Liters per Minute 2 L/min (03/10/22 6:55 AM) 2 L/min (03/10/22 12:00 AM) 2 L/min (03/06/22 11:55 AM) Mode of Delivery (Oxygen) Room air (03/12/22 5:53 PM) Room air (03/12/22 12:38 PM) Room air (03/12/22 4:43 AM) Blood pressure sites Arm, right (03/12/22 5:53 PM) Arm, left (03/12/22 12:38 PM) Arm, right (03/12/22 4:43 AM) Temperature Route Oral (03/12/22 5:53 PM) Oral (03/12/22 12:38 PM) Oral (03/12/22 4:43 AM) Dry Weight 126 kg (02/27/22 9:12 PM) Weight Obtained Via Bed scale (03/12/22 5:35 AM) Patient/family stated (02/27/22 9:12 PM) Social History Social History Type Response Smoking Status Former smoker; Other : quit 04/2015; entered on: 01/30/16 Sex Female Admission evaluation note * Jessica Loya: PERFORM, MODIFY, MODIFY Event Display: Admission Note Authored Date: [id number] Patient: ??LOVING, VILMA ? Age:??46 Years?Sex:??Female?:??1975?? Chief Complaint/Reason for Consultation Pt coming from home. EMS was called for diff breathing, EMS found pt with AMS and pin pupils. Pt c/o diff breathing. History of Present Illness Patient is a 46-year-old female with past medical history of morbid obesity, obesity hypoventilation syndrome, asthma/COPD, AURELIO???on BiPAP, ??essential hypertension, hyperlipidemia,??insulin???dependent??DMII, GERD, erosive gastritis, TPN and PICC (@ RUE ) dependent,??fibromyalgia, migraine headaches, bipolar disorder, chronic abdominal pelvic pain syndrome, chronic interstitial cystitis, neurogenic bladder, optic neuritis, endometriosis/adenomyosis??s/p total abdominal hysterectomy and bilateral salpingo-oophorectomy; history of SBO obstruction status post exploratory laparotomy with lysis of adhesions/mesh removal multiple times in the past. ??Chronic hypomagnesemia due to GI malabsorption issues???on??scheduled??supplemental IV magnesium infusions (refer to A+P for schedule details).??Recent admission in December 2021 with right periapical right mandibular infection-treated with IV antibiotics/subsequently transferred to [facility] for oral maxillofacial surgery consult/I/D. Remote history of line-associated bacteremia??in 2020. ?? HPI is obtained from??bedside interview with the patient,??telephone conversation with her Tuyet and review of [facility] charts.?Patient arrived from home via EMS. who were activated by her concerned (Tuyet) for ??evaluation 3???day history of??generalized weakness and malaise,??fevers (reportedly T-max 102 Fahrenheit), difficulty breathing with pleuritic??and musculoskeletal??chest pain, and appearing altered??for her baseline state.?No focal deficits.?No syncope/presyncopal episodes.?? Remainder the review of systems was negative for headache/visual changes/nuchal rigidity,??no coughing,??no back pain/flank pain, no abdominal pain/distention/nausea/vomiting/diarrhea/melena; no symptoms of dysuria/hematuria/malodorous urine or increased frequency. ??No abnormal rashes or lesions. ??Patient also reports new pain at the hopkins area of RLE, no edema/rashes. Tuyet states thatthis is similar to her??history of??line associated bacteremia a couple years ago. On EMS arrival, patient was not in obvious respiratory distress, however did complain of pleuritic central chest pain and subjective fevers and chills; her vitals were remarkable for mild tachycardia; BP/RR/O2 sats were all WNL, otherwise. ??Her pupils, were also noted to be pinpoint, otherwise neurologic exam was unremarkable.? ED course: On arrival she was slightly hypotensive for her chronic baseline with recorded BPs in 110s???120s/70s???80s. ??She was also febrile with a T-max of one 1.4 Fahrenheit. ??Was persistently tachycardic with HR in the 130s on initial presentation, however improved to 1 teens following 2 LPM's bolus IVFs resuscitation. EKG demonstrated sinus tachycardia at a rate of 120 bpm; no abnormal BARBY/QRS prolongation; QTC borderline 443. ??No acute ischemic findings. ??Compared to prior study from 11/09/2021.??Troponin was 6. ??Initial lab work was notable for no leukocytosis; stable chronic normocytic anemia with H/H of 10.6/32.0, unremarkable platelet count. ??General chemistry panel was notable for mild hyponatremia at133, when corrected for slight hyperglycemia. ??Renal function was stable. ??Potassium unremarkable. ??Magnesium/calcium not checked. ??Rest of the lab work was notable for slightly elevated bilirubin at 1.8, alk phos of 223, AST 95, ALT of 68. ??Lactate level was WNL at 1.4, 1.2 on repeat. ??Viralscreen ruled out influenza A/B, RSV and COVID. ??Urinalysis ruled out UTI. CTA of the chest was obtained given high risk probability and elevated D-dimer level, ruled out PE;however demonstrated focal airspace opacities in the lingula and left lower lobe, as well as additional nodular opacities in the right lower lobe???which may be infectious/inflammatory, however??radiology recommended?for short-term follow-up CT to ensure resolution. ??Right upper quadrant US demonstrated no acute biliary process, s/p cholecystectomy; findings consistent with hepatic steatosis. ?? Given multiple antibiotic allergies, patient received vancomycin??and metronidazole from emergency department; she refused??Levofloxasin.?? Infectious work-up was sent out??and currently pending. ?? Review of Systems Constitutional symptoms: ??Negative except as documented in HPI.?? Skin symptoms:??PICC line and??TPN line in place,??without erythema/pain/discharge. Respiratory symptoms:??Difficulty breathing. ??No cough.?? Low-grade fevers. Cardiovascular symptoms:??Midsternal??chest pain, pleuritic and??reproducible on palpation.?? No radiation. ??No lightheadedness/dizziness/diaphoresis Gastrointestinal symptoms: No abdominal pain,??nausea??that is worse than baseline; no vomiting;??no melena/diarrhea. Genitourinary symptoms:??No dysuria/hematuria/malodorous urine/flank pain. Musculoskeletal symptoms:??Generalized malaise and weakness. Neurologic symptoms:??Negative Objective Measurements?? Height: 155 cm (02/27/22) Weight: 129 kg (02/27/22) Dry Weight: 126 kg (02/27/22) Body Mass Index:??53.69 kg/m2??Critical (02/27/22) ? Vital Signs?? Temperature: 99.3 DegF (02/27/22 21:12:00) Temperature Route: Oral (02/27/22 21:12:00) Pulse Rate:??125 bpm??High (02/27/22 21:12:00) Respiratory Rate: 20 br/min (02/27/22 21:12:00) Systolic Blood Pressure: 120 mm Hg (02/27/22 21:12:00) Diastolic Blood Pressure: 69 mm Hg (02/27/22 21:12:00) Blood pressure sites: Arm, left (02/27/22 21:12:00) Mean Arterial Pressure: 86 mm Hg (02/27/22 21:12:00) Pulse Pressure: 51 mm Hg (02/27/22 21:12:00) Oxygen Saturation: 95 % (02/27/22 21:12:00) Mode of Delivery (Oxygen): Room air (02/27/22 21:12:00) Early Warning Score: 7 (02/27/22 21:15:11) ? Pain Scores 1 - 10 Pain Scale Score: 6 (21:17) ? Intake/Output? 02/27 15:48 02/27 07:00 02/26 07:00 02/25 07:00 02/24 07:00 ?? 02/27 21:52 02/27 21:52 02/27 06:59 02/26 06:59 02/25 06:59 Intake ?300 ?300 ?0 ?0 ?0 Output ?0 ?0 ?0 ?0 ?0 Net Total ?300 ?300 ?0 ?0 ?0 ? Physical Exam GEN:??Morbidly obese young female. ??Conscious/alert/oriented to self/place/time/situation. ??Provides good history.?? Appears tired, however no lethargy/somnolence appreciated.?? Nontoxic. ??No??respiratory distress. CV: Regular tachycardia.?? S1 and S2 normal . No murmurs. PULM:??Clear with good inspiratory/expiratory effort. ??No wheezes/crackles.?? No coughing.?? O2 saturations??remain in mid 90s on ambient air.?She is speaking in full sentences.?? No accessory muscle use??or tripoding. ABD: Soft. Nontender. Non-distended. Normal bowel sounds present x4 quadrants NEURO: No gross neurologic focal deficits. No slurred speech. 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 ??LE equal BL and 5/5.?? SKIN: Warm/dry/well-perfused. ??Multiple tattoos.?? Noted??PICC line and IV line??at the right upper extremity; with no evidence of??surrounding erythema/edema/fluctuance out of proportion on exam. PSYCH:.Patient is calm and pleasant.? Assessment/Plan Patient is a 46-year-old female with past medical history of morbid obesity, obesity hypoventilation syndrome, asthma/COPD, AURELIO???on BiPAP, ??essential hypertension, hyperlipidemia,??insulin???dependent??DMII, GERD, erosive gastritis, TPN and PICC (@ RUE ) dependent,??fibromyalgia, migraine headaches, bipolar disorder, chronic abdominal pelvic pain syndrome, chronic interstitial cystitis, neurogenic bladder, optic neuritis, endometriosis/adenomyosis??s/p total abdominal hysterectomy and bilateral salpingo-oophorectomy; history of SBO obstruction status post exploratory laparotomy with lysis of adhesions/mesh removal multiple times in the past. ??Chronic hypomagnesemia due to GI malabsorption issues???on??scheduled??supplemental IV magnesium infusions (refer to A+P for schedule details).??Recent admission in December 2021 with right periapical right mandibular infection-treated with IV antibiotics/subsequently transferred to [facility] for oral maxillofacial surgery consult/I/D. Remote history of line-associated bacteremia??in 2020. ? Diagnoses 1. ??SIRS without infection or organ dysfunction ??(R65.10) 2. ??Sepsis ??(A41.9) 3. ??Pneumonia ??(J18.9) ? SIRS, suspect early sepsis secondary to pneumonia with question of possible line -associated bacteremia (given presence of chronic PICC and PIV) Infectious encephalopathy/malaise Hyperbilirubinemia/mild transaminase elevation (benign exam) -Chest CTA rule out PE, but demonstrated focal opacities in the lingula, left lower lobe and right lower lobe (differential includes inflammatory/infectious etiology) -Admit to medicine floor ??? Patient has multiple antibiotic allergies, will continue with vancomycin and one-time dose of clindamycin, while awaiting bacterial blood cultures to start returning ??? Requested infectious disease consult for guidance ??? Obtain MRSA swab, pending ??? Monitor for new onset leukocytosis with daily CBCs ??? Repeat LFTs, given borderline nonspecific elevation (abdominal exam was benign) -QTOX -procalcitonin level -re: CTA findings, if PNA not suspected-then consider arrangin gfor 3mo CT chest f/u repeat ?? Hypocalcemia: Ionized calcium returned at 1.12 ? will correct ??? Repeat calcium level in the morning ?? Right lower extremity pain. ??High risk for DVT given immobility/elevated D- dimer??with CTA ruling out PE ?Requested??Doppler right lower extremity US, pending ? Chronic and Stable Issues: Morbid obesity Obesity hypoventilation syndrome AURELIO???on BiPAP -bipap at night time -Case management consult, requested ?? Asthma/COPD: Not in exacerbation -continue PRN Albuterol for wheezing/dyspnea ?? Hyperlipidemia -Unclear if still on simvastatin, according to pharmacy has not refilled since last year ?? Insulin???dependent DMII -on Lantus 35U BID and aspart. -continue w/ Lantus 17U BID, while pending nutrition consult for TPN -POC BG q6hrs for now -SSI w/ lispro -hypoglycemia protocol ?? GERD Erosive gastritis TPN and PICC line???dependent Intermittent constipation Chronic hypomagnesemia and hypokalemia???receives daily supplements -on TPN -->requested nutrition consult. Overnigth will keep on maintenance IVLR at 100 ml/hrs x13hrs -resume Bisacodyl PO tabs, Senna Plus-w/ holding parameters for loose stools -resume PRN Tums -resume MICHAEL VitD 200IU QD -received PRN IV Zofran (cannot tolerate PO!), need premedication with 50mg Benadryl (resumed, but w/ holding parameters for lethargy) -resume IV pantoprazole 40 mg QHS -Patient is on TPN??magnesium repletion schedule:??On a daily basis she received 3 g of magnesium via TPN; in addition on Tuesday she received additional 4 g of??magnesium via TPN, and on Tuesday received 8 g of magnesium via TPN. -Nutrition consult, requested as per above ?Daily magnesium??levels, replete as needed -telemtrymonitoring ?? Fibromyalgia Chronic abdominal pelvic pain syndrome Chronic interstitial cystitis Neurogenic bladder Endometriosis/adenomyosis status post HAKAN+BSA Prior history of SBO secondary to adhesions, status post lysis of - adhesions/mesh removal -on PRN liqud dilaudid 4mg q4hrs for pain -serial bladder scans ?? Migraine headaches -on ppx propranolol-per patient, however per discussion with pharmacy med has not been refilled for>1yrs. Will HOLD -on PRN Sumatriptan, no active sxs, will HOLD ? Quality Measures: DVT prophylaxis: Lovenox SQ bid taking into account body habitus Diet: TPN-dependent Code Status: FULL CODE ? Histories Allergies Allergies ?(Active and Proposed [...] no longer needed Trigger point of abdomen [facility] Senior Level Patient ? Past Surgical [...] wall reconstruction Tubal ligation Ganglion cyst ? Social History Alcohol Details:??Use: Past. 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 Exercise Details:??Self assessment: Poor condition. ??Regular exercise: No. Home/Environment Details:??Living situation: Home/Independent. ??Lives with: Significant other, Cousin. Nutrition/Health Details:??Caffeine intake amount: Minimal Fiber. Sexual Details:??Sexually involved in last 6 months: Yes. ??Sexual orientation: Homosexual. Substance Abuse Details:??Use: Past. ??Other: occasional edibles. Tobacco Details:??Former smoker, Other: quit 04/2015. ? Psychosocial History Lives at home, with and daughter. Has PCT visiting. ?? Family History Mother: Asthma; Degenerative disc disease; [...] a day DiphenhydrAMINE (Banophen 50 mg oral capsule)?1?capsule?50?Milligram?IV Push?4 times a day?as needed?as needed for itching Docusate-Senna (Senna Plus 50 mg-8.6 mg oral tablet)?2?tab(s)?By Mouth?Daily at bedtime Hydromorphone (HYDROmorphone 1 mg/mL oral liquid)?4?Milliliter?4?Milligram?By Mouth?Every 6 hours?as needed?as needed for pain Insulin Aspart (NovoLOG FlexPen 100 units/mL subcutaneous solution)?See Instructions?Subcutaneous Injection?Use as per sliding scale Insulin Glargine?35?unit(s)?Subcutaneous Injection?2 times a day Lorazepam (LORazepam 0.5 mg oral tablet)?1?tab(s)?0.5?Milligram?By Mouth?Daily atbedtime Miscellaneous Rx (ENSURE CLEAR LIQD)?1 bottle?3 times a day with meals Ondansetron (ondansetron 4 mg oral tablet, disintegrating)?4?Milligram?IV Push?Every 6 hours?as needed?Nausea & Vomiting Pantoprazole (pantoprazole 40 mg oral delayed release tablet)?1?tab(s)?40?Milligram?By Mouth?Daily?for 30?Days Pantoprazole (Pantoprazole Inj)?40?Milligram?IV Infusion?Daily at bedtime Potassium Chloride (potassium chloride 8 mEq (600 [...] up to a maximum of 2 ? Results Recent Labs BLOOD COUNT & DIFF WBC 9.6 k/mm3 ()?? 02/27/2022 09:39 RBC 3.91 m/mm3 (Low)?? 02/27/2022 09:39 Hgb 10.6 Gm/dL (Low)?? 02/27/2022 09:39 Hct 32.0 % (Low)?? 02/27/2022 09:39 MCV 81.8 femtoliters ()?? 02/27/2022 09:39 MCH 27.1 pg ()?? 02/27/2022 09:39 MCHC 33.1 g/dL ()?? 02/27/2022 09:39 Platelet Count 252 k/mm3 ()?? 02/27/2022 09:39 RDW-SD 36.6 femtoliters ()?? 02/27/2022 09:39 MPV 9.1 femtoliters (Low)?? 02/27/2022 09:39 Nucleated RBC (Automated) 0.0 #/100 WBC'S ()?? 02/27/2022 09:39 Abs. NRBC 0.0 k/mm3 ()?? 02/27/2022 09:39 Abs. Neut 8.8 k/mm3 (High)?? 02/27/2022 09:39 Abs. Lymph 0.3 k/mm3 (Low)?? 02/27/2022 09:39 Abs. [place] 0.4 k/mm3 ()?? 02/27/2022 09:39 Abs. Eo 0.0 k/mm3 ()?? 02/27/2022 09:39 Abs. Baso 0.0 k/mm3 ()?? 02/27/2022 09:39 Neut % 91.6 % (High)?? 02/27/2022 09:39 Lymph % 3.3 % (Low)?? 02/27/2022 09:39 [place] % 4.0 % (Low)?? 02/27/2022 09:39 Eos % 0.0 % ()?? 02/27/2022 09:39 Baso % 0.3 % ()?? 02/27/2022 09:39 Imm Gran 0.8 % ()?? 02/27/2022 09:39 Abs. Imm Gran 0.1 k/mm3 ()?? 02/27/2022 09:39 ?? CARDIAC High Sensitivity Troponin (HSTnT) <6 ng/L ()?? 02/27/2022 20:16 ?? CHEM GENERAL Sodium 130 mmol/L (Low)?? 02/27/2022 09:39 Potassium 3.7 mmol/L ()?? 02/27/2022 09:39 Chloride 97 mmol/L (Low)?? 02/27/2022 09:39 Bicarbonate Level 24 mmol/L ()?? 02/27/2022 09:39 Anion Gap 9 ()?? 02/27/2022 09:39 Glucose Level 215 mg/dL (High)?? 02/27/2022 09:39 BUN 12 mg/dL ()?? 02/27/2022 09:39 Creatinine-Blood 0.6 mg/dL ()?? 02/27/2022 09:39 Estimated GFR Creatinine 111 ML/MIN/1.73 M2 ()?? 02/27/2022 09:39 Calcium 8.4 mg/dL (Low)?? 02/27/2022 09:39 Calcium, Ionized pH Corrected 1.12 mmol/L (Low)?? 02/27/2022 20:16 Magnesium 2.1 mg/dL ()?? 02/27/2022 20:16 Protein, Total 6.4 Gm/dL ()?? 02/27/2022 09:39 Albumin 3.6 Gm/dL ()?? 02/27/2022 09:39 AG Ratio 1.3 ()?? 02/27/2022 09:39 Alkaline Phosphatase 223 units/L (High)?? 02/27/2022 09:39 AST (SGOT) 95 units/L (High)?? 02/27/2022 09:39 ALT (SGPT) 68 units/L (High)?? 02/27/2022 09:39 Bilirubin, Total 1.8 mg/dL (High)?? 02/27/2022 09:39 Lactate 1.2 mmol/L ()?? 02/27/2022 11:46 ?? COAG D-Dimer 12.22 mg/L FEU (High)?? 02/27/2022 09:39 ?? MISC. CHEMISTRY Hold Gel Top SPECIMEN DISCARDED AFTER 1 WEEK ()?? 02/27/2022 12:09 ?? UA/URINALYSIS Appear/Color, Urine YELLOW ()?? 02/27/2022 11:31 Specific [place], Urine 1.016 ()?? 02/27/2022 11:31 pH, Urine 5.5 ()?? 02/27/2022 11:31 Albumin, Urine TRACE (Abnormal)?? 02/27/2022 11:31 Glucose, Urine 2+ (Abnormal)?? 02/27/2022 11:31 Ketones, Urine TRACE (Abnormal)?? 02/27/2022 11:31 Bilirubin, Urine NEGATIVE ()?? 02/27/2022 11:31 Hemoglobin, Urine NEGATIVE ()?? 02/27/2022 11:31 Nitrite, Urine NEGATIVE ()?? 02/27/2022 11:31 Leukocyte, Urine NEGATIVE ()?? 02/27/2022 11:31 Urobilinogen 2 mg/dL (Abnormal)?? 02/27/2022 11:31 WBC's, Urine 1 /HPF ()?? 02/27/2022 11:31 RBC's, Urine 1 /HPF ()?? 02/27/2022 11:31 Squamous Epith 5 /HPF ()?? 02/27/2022 11:31 Mucus SLIGHT /LPF ()?? 02/27/2022 11:31 Hold Urine Culture Testing available 48 hours from time of collection. ()?? 02/27/2022 11:31 ?? VIROLOGY Influenza A PCR NEGATIVE ()?? 02/27/2022 09:40 Influenza B PCR NEGATIVE ()?? 02/27/2022 09:40 RSV PCR NEGATIVE ()?? 02/27/2022 09:40 COVID-19 PCR Specimen Source NASAL ()?? 02/27/2022 09:40 COVID-19 PCR Result NEGATIVE ()?? 02/27/2022 09:40 ? Imaging(s) CT Angio Chest ?? 02/27/2022 14:56??by Austen Soliz MD IMPRESSION: 1. No evidence of pulmonary embolism. 2. Focal airspace opacities in the lingula and left lower lobe as well as additional nodular opacities in the right lower lobe may be infectious or inflammatory, however recommend short-term follow-up CT to ensure resolution. ?? Chest 2 Views Frontal and Lat ?? 02/27/2022 10:51??by Jorden Genao MD IMPRESSION: No evidence of acute abnormality. ?? US RUQ ?? 02/27/2022 13:17??by Jorden Genao MD IMPRESSION: Mildly echogenic liver likely representing hepatic steatosis. ? EKG study * Event Display: EKG Authored Date: * Event Display: ECG 12-Lead Authored Date: Please click on pdf link to open report * Event Display: ECG 12-Lead Authored Date: [id number] Ventricular Rate: 128 BPM Atrial Rate: 128 BPM P-R Interval: 128 ms QRS Duration: 84 ms Q-T Interval: 304 ms QTC Calculation(Bazett): 443 ms P [place]: 7 degrees R [place]: -11 degrees T [place]: -11 degrees Sinus tachycardia Possible Anterior infarct , age undetermined Abnormal ECG When compared with ECG of 09-NOV-2021 16:14, No significant change was found Confirmed by JACKIE MEJÍA MD ([id number]) on 03/01/2022 9:05:27 PM [place]: JACKIE MEJÍA MD Heart * Event Display: Echocardiogram - Complete Authored Date: [id number] Transthoracic Echocardiography Report (TTE) Patient Demographics Patient Name VILMA SERRANO Date of Study 03/02/2022 Corporate Gender Female Facility Race Ethnicity Date of 1975 Height: 61.02 inches Age 46 year(s) Weight: 284.4 pounds Accession Number [id number] BSA: 2.19 m2 Room Number S242 BMI: 53.69 kg/m2 Referring Physician Hollis Castro Interpreting Tatyana Peraza MD Search Engine Optimization Strategist Mervat Armijo Indications Bacteremia. Clinical History Diabetes Mellitus. Hypertension. Obesity. Study Data Type of Study TTE procedure:Echo Complete-Doppler, Colorflow, M-Mode. Study Date03/02/2022 Start Time: 09:42 AM Study Location: [facility] Adult Echo Study Status: Bedside Patient Status: BAUDILIO Technical Quality: Adequate Blood Pressure:128/66 mmHg EKG: Within normal limits HR: 93 bpm Allergies - Other allergy:(seafood,lantiseptic skin protectant,). - Contrast. - Other allergy:(ceftriaxone). - Other allergy:(compazine). - Doxycycline. - Other allergy:(famotidine). - Fentanyl. - Iodine. - Latex. - Levaquin. - Lyrica. - Morphine. - Other allergy:(nexium). - Other allergy:(nicotine patch, pepcid, reglan, zofran). - Tylenol / codeine. - Penicillins. 2D Measurements LV Diastolic Dimension: 4.8 cm LV Systolic Dimension: 3.9 cm LV Septum Diastolic: 1.2 cm LV PW Diastolic: 1.2 cm AO Root Dimension: 3.5 cm LA ESV (BP):56.9 ml LVOT Stroke Volume: 40.82 ml LA ESV Index: 26 ml/m2 Stroke Volume Index18.64 ml/m2 LVOT: 2 cm Cardiac Index:1.74 l/min/m2 Doppler Measurements AV Peak Velocity: 135 cm/s MV Peak E-Wave: 100 cm/s AV Peak Gradient: 7.29 mmHg MV Peak A-Wave: 97.1 cm/s AV Mean Gradient: 4 mmHg MV E/A Ratio: 1.03 AV VTI:22.8 cm LVOT Peak Velocity: 75.2 cm/s LVOT VTI13 cm MV Deceleration Time: 155 msec AV Area (Continuity):1.79 cm2 PV Peak Velocity: 83.2 cm/s PV Peak Gradient: 2.77 mmHg E' Septal Velocity: 12.4 cm/s E' Lateral Velocity: 13.2 cm/s E/Med E':8.220408 E/Lat E':7.822459 Cardiac Anatomy Left Ventricle/Interventricular Septum The left ventricular size is normal. Left ventricular wall thickness is mildly increased. Normal LV systolic function. Ejection fraction is 55-65%. No obvious wall motion abnormalities seen on limited views. Left Atrium/Interatrial Septum The left atrium is poorly visualized. Aortic Valve The aortic valve is probably trileaflet and normal in structure and function. There is no aortic stenosis or insufficiency. Mitral Valve The mitral valve is appears grossly normal. There is no mitral stenosis, there is trace insufficiency. Aorta The ascending aorta and aortic root are normal in size. Right Ventricle The right ventricle is poorly visualized. Right Atrium The right atrium is poorly visualized. Pulmonic Valve The pulmonic valve is poorly visualized. Tricuspid Valve The tricuspid valve is poorly visualized. There is trace tricuspid valve regurgitation. Pumonary Artery An accurate pulmonary artery pressure could not be obtained. Venous Structures The inferior vena cava size is normal with normal inspiratory collapse. Pericardium/Extracardiac There is no pericardial effusion. Summary -The left ventricular size is normal. Left ventricular wall thickness is mildly increased. Normal LV systolic function. Ejection fraction is 55-65%. No obvious wall motion abnormalities seen on limited views. -The right ventricle is poorly visualized. -No significant valvular abnormalities or definite vegetations were seen on this poor quality study. -There is no pericardial effusion. Signature * Event Display: Echocardiogram - Complete Authored Date: [id number] Note * Shane Riley RN: PERFORM Event Display: Discharge/Transfer Note Hospital Authored Date: [id number] Nursing Discharge Note Entered On: 03/12/2022 18:56 EST Performed On: 03/12/2022 18:56 EST by Shane Riley RN Nursing Discharge Note 2 Discharge Time : 03/12/2022 18:56 EST Discharge Level of Care at Discharge : Homehealth/VNA Discharge Medical [employer] Power(v001) : Option Care # Patient Left Unit Via : Ambulatory Patient Accompanied Off Unit with : Responsible adult DC Instructions Provided & Signed by Pt : Yes Patient Understands D/C Instructions : Yes Patient Instructions Discharge Signed : Yes Did Pt have Specialty Bed or Wound Vac : No Shane Riley RN - 03/12/2022 18:56 EST * Mariela Fernandes MD: MODIFY Mariela Fernandes MD: MODIFY, MODIFY Mariela Fernandes MD: MODIFY, MODIFY Mariela Fernandes MD: MODIFY, MODIFY Mariela Fernandes MD: MODIFY, MODIFY Mariela Fernandes MD: MODIFY, PERFORM Mariela Fernandes MD: PERFORM, MODIFY Mariela Fernandes MD: MODIFY, MODIFY Mariela Fernandes MD: MODIFY, MODIFY Mariela Fernandes MD: MODIFY, MODIFY Mariela Fernandes MD: MODIFY, MODIFY Mariela Fernandes MD: MODIFY, MODIFY Mariela Fernandes MD: MODIFY, Mariela Grissom MD: SANDHYA ARTHUR MD, Alice: SANDHYA ARTHUR MD, Alice: MODIFY Event Display: Discharge/Transfer Note Hospital Authored Date: [id number] Patient: ??LOVING, VILMA ? Age:??46 Years?Sex:??Female?:??1975?? Patient Information Discharge Location: S2 Primary Care Physician: Chaparrita Pizano DO Admit Date/Time: 02/27/22 15:48 Discharge Disposition Discharge Disposition: Home with Home Health Discharge Diagnosis Sepsis (A41.9) Pneumonia (J18.9) Back pain, thoracic (M54.6) MSSA bacteremia (R78.81) Pain of mid back (M54.9) GERD Erosive gastritis Chronic hypomagnesemia Constipation Gout Type 2 diabetes Fibromyalgia Chronic abdominal pelvic pain syndrome Incidental??lung nodules _ Discharge Medications Albuterol (albuterol CFC free 90 mcg/inh inhalation aerosol)?2?puff(s)?Inhalation?4 times a day?as needed?for wheezing Albuterol (albuterol 0.042% inhalation solution)?3?Milliliter?1.25?Milligram?Neb?4 times a day?as needed?Wheezing/Shortness of Breath Bisacodyl (bisacodyl 5 mg oral delayed release tablet)?1?tab(s)?5?Milligram?By Mouth?Daily Calcium Carbonate (Tums 500 mg oral tablet, chewable)?500?Milligram?1?tablet?Chew?Every 4 hours?as needed?Dyspepsia ceFAZolin (ceFAZolin 2 g injection)?2?gram?IV Push?Every 8 hours Cholecalciferol (Vitamin D3 2000 intl units oral capsule)?1?capsule?2,000?InternationalUnit?By Mouth?3 times a day DiphenhydrAMINE (Banophen 50 mg oral capsule)?1?capsule?50?Milligram?IV Push?4 times a day?as needed?as needed for itching Docusate-Senna (Senna Plus 50 mg-8.6 mg oral tablet)?2?tab(s)?By Mouth?Daily at bedtime Guaifenesin/Dextromethorphan (dextromethorphan-guaifenesin 10 mg-100 mg/5 mL oral liquid)?10?Milliliter?By Mouth?2 times a day?as needed?Cough?Take as needed for cough up to 2 times a day. Hydromorphone (HYDROmorphone 1 mg/mL oral liquid)?4?Milliliter?4?Milligram?By Mouth?Every 6 hours?as needed?as needed for pain Insulin Aspart (NovoLOG FlexPen 100 units/mL subcutaneous solution)?See Instructions?Subcutaneous Injection?Use as per sliding scale Insulin Glargine?35?unit(s)?Subcutaneous Injection?2 times a day Lidocaine Topical (lidocaine 5% topical film)?See Instructions?as needed?Pain , Moderate?Topically Daily as needed for painremove patches after 12 hours Lorazepam (LORazepam 0.5 mg oral tablet)?1?tab(s)?0.5?Milligram?By Mouth?Daily atbedtime Miscellaneous Rx (ENSURE CLEAR LIQD)?1 bottle?3 times a day with meals Ondansetron (ondansetron 4 mg oral tablet, disintegrating)?4?Milligram?IV Push?Every 6 hours?as needed?Nausea & Vomiting Pantoprazole (pantoprazole 40 mg [...] a maximum of 2 ? Medications Started Cefazolin 2gm every 8 hours through 03/31/22 Robitussin for cough as needed Restart simvastatin lidocaine patches as needed Medications Discontinued None Doses Changed None?? PCP Follow-Up/Heads-Up Recheck labs for??refeeding syndrome and??weekly labs while on cefazolin. Incidental pulm nodules: Noted on admission, need followup CT in May ([address]) Future Appointments Tuesday 11:40 AM EST ?? With: Lorie SHERIFF, Antwan Hi Where: [facility] Infectious Disease [address] [place] [address]- Hospital Course 46 y/o F w/h/o asthma/COPD, AURELIO, HTN, DM2, GERD, HypoMg/TPN dependent, fibromyalgia, bipolar disorder, chronic abdominal/pelvic pain admitted with MSSA bacteremia likely 03/18 to chronic??central line infection??or PICC. ??Her blood culture on 03/02/22??grew??Staphylococcus aureus??pansensitive??and susceptible to??methicillin. ??No other??positive blood cultures. ??She had intermittent fevers??treated with IV ketorolac??due to??Tylenol allergy. ??Currently she is??hemodynamically stable, culturesremain negative after all lines removed, Polanco placed 03/10 without complications.?? Resumed TPN on 03/11.?? Given patient's??improvement??clinically??found appropriate for discharge. ?? MSSA bacteremia Echo limited but negative for vegetations, MRI spine and RUE??negative for osteo/abscess. Per??ID should be on cefazolin but temporarily switched to PO linezolid when had limited IV access now back on cefazolin. Recent blood cultures have been negative. ?? Recommendations: - Cefazolin 2gm q8 (end date 03/31/22) - Per ID, weekly CBC with diff, BUN, creatinine while on antimicrobial ? Start next week and ordered ???Follow-up with ID??outpatient??scheduled for 03/23/2022 ?? GERD/Erosive gastritis Chronic hypoMg Constipation Complicated and unclear exact etiology of her hypoMg and general PO intolerance. Has followed w/Renal and GI OP in past, seems more likely a GI source of Mg loss but she has had no diarrhea and thus a normal Mg since admission. Did start moving her bowels with scheduled bowel regimen.?Magnesium within normal limits??and??decreased??to 1.4??after constipation resolved. Unclear where the PO intolerance is coming from, she does ok with ensures/liquids but also has significant abdominal pain??now improved. Has been on TPN since approx. Sep due to chronic pain/poor PO intake. ?? Home regimen: 4gm Mg on Tue/ 8gm Mg on Sat, and 3gm Mg daily via TPN ?? Recommendations: ?Bowel regimen - Vit D QD - Pantoprazole 40mg QHS - Home ondansetron and Benadryl - Ensures as tolerated - Resume TPN -Follow-up with primary care??for??refeeding syndrome labs???electrolytes, mag, phos, BUN, creatinine -- no signs refeeding after starting TPN by day of discharge aside from chronic hypoMg - Can consider GJ tube for enteral feeding in the future. Can f/u outpatient with PCP ?? Left??1st toe pain, resolved exam not suggestive of septic joint,??cellulitis.??She reports having gout flares in past, not on chronic allopurinol. Resolved after receiving 3 days of colchicine 0.6 mg daily??more likely??gout flare. ?? Type 2 Diabetes Resume??home regimen: lantus 35u BID + SSI ?? Fibromyalgia Chest/Back/Shoulder pain Chronic abdominal pelvic pain syndrome seems most likely MSK, cardiac w/u negative, CTA negative for PE, MRI negative for osteo/septic joint ?? Recommendations: ?Resume??home regimen:??hydromorphone 4mg q6 liquid?lidocaine patches as needed ?? Chronic interstitial cystitis Neurogenic bladder ?? AURELIO/Obesity hypoventilation syndrome: Nonadherent??with??BiPAP qHS ?? Asthma/COPD: Not in exacerbation. Suspect her dyspnea is related to atelectasis given prolonged bedbound status and pain limiting deep inspiration. ??Has cough??not hypoxic. -Home albuterol ??? Robitussin as needed for cough ?? Hyperlipidemia:??last refill of simvastatin >1yr ago ???Restart simvastatin ?? Migraine headaches: none currently??although did have??1 day of??migraine??during admission. ?? Incidental nodules: noted on admission CTA to have??nodular opacities in R lower lobe and recommending short-term FU CT to ensure resolution. Discussed this result with patient. ???Consider??follow-up CT after May 28, 2022??([address]) Objective Vital Signs?? Temperature: 99.1 DegF (03/12/22 12:38:00) Temperature Route: Oral (03/12/22 12:38:00) Pulse Rate:??105 bpm??High (03/12/22 12:38:00) Respiratory Rate: 18 br/min (03/12/22 12:38:00) Systolic Blood Pressure:??141 mm Hg??High (03/12/22 12:38:00) Diastolic Blood Pressure:??95 mm Hg??High (03/12/22 12:38:00) Blood pressure sites: Arm, left (03/12/22 12:38:00) Mean Arterial Pressure: 110 mm Hg (03/12/22 12:38:00) Pulse Pressure: 46 mm Hg (03/12/22 12:38:00) Oxygen Saturation: 99 % (03/12/22 12:38:00) Mode of Delivery (Oxygen): Room air (03/12/22 12:38:00) Early Warning Score: 1 (03/12/22 12:42:27) ? . Physical Exam General:??Alert, appears comfortable sitting in bed HEENT??Normocephalic. PERRL Respiratory:??Diminished b/l due to body habitus, no wheezes Cardiovascular:??Heart sounds normal. Regular rate and rhythm, no murmurs Gastrointestinal:??Abdomen soft, NT, ND. Diminished bowel sounds??could be 2/2 to body habitus. Neurologic:??No focal neurological deficits. Moves all extremities spontaneously. Skin:??No rashes, Polanco intact .??No erythema,??no pain on palpation of left 1st toe. Extremities: Bilateral lower extremity edema L>R Surgical Procedures Removal [id number] 03/04/2022 16:18 Consultants Transplant surgery???Faye SHERIFF, Angel Ocampo Infectious disease???Alexis Blanton MD Patient Education Titles Cefazolin Injection?? Bacteremia, Suspected (Adult)?? Follow-Up Appointments Added Follow Up ?Time Frame ?Comments Jerica DO, Chaparrita Gupta?1 week: call to discuss follow up visit Lorie SHERIFF, Antwan Hi?03/23/2022 11:40 Patient Instructions DIAGNOSIS: MSSA (methicillin-sensitive Staphylococcus aureus) Bacteremia ? Your specific PATIENT CARE INSTRUCTIONS (what to do / when to return): Follow up with your primary care doctor in 1 week. Call to schedule appointment. Follow up with your primary care doctor about another CT scan for your lung nodules after 05/28/22. Please return if you feel as if you have another blood infection - ??tachypnea, shaking chills, persistent fever, altered sensorium, hypotension, and gastrointestinal symptoms (abdominal pain, nausea, vomiting, diarrhea). ?? MEDICATIONS (what medications you should start (or stop) taking): New medications: Cefazolin 2gm every 8 hours through 03/31/22 Bowel regimen - Miralax, Doc/Senna Robitussin for cough as needed Restart simvastatin Home Health Face to Face *Denotes mandatory hernandez ?? *I certify that this patient is under my care and that I or an allowed non- physician working with me had a face to face encounter with the patient on this date:??03/12/2022 15:16 ?? *The encounter with the patient was in whole, or in part, for the following medical condition, which is the primary diagnosis(es) for home health care:??SIRS without infection or organ dysfunction (R65.10) Sepsis (A41.9) Pneumonia (J18.9) Back pain, thoracic (M54.6) MSSA bacteremia (R78.81) Pain of mid back (M54.9) ? *Select the indications for the discipline/s that are being arranged for this patient. Nursing (select all that apply): [_] None [_x] Medication management (reconciliation, teaching)?? [_x] Chronic disease management?? [_] Wound care and treatment?? [_] Home safety evaluation [_x] Administer SQ/IM/IV medications?? [_] Cath care?? [_] Drain care?? [_] Trach or GT care?? Other _ Occupation Therapy (select all that apply): [_] [...] *Homebound due to (select all that apply): [_] Inability to leave home without assistance/supervision [_] Inability to ambulate without assistance [_x] Pain [_x] Decreased strength and endurance [_] Unsteady gait [_] Severe SOB and fatigue [_] Impaired transfers [_] Inability to negotiate stairs [_] Limited weight bearing [_] Mental status change? *Physician Signature: Mariela Fernandes MD, PGY1 [facility]? *By signing this, I certify that I have personally evaluated the patient and agree with the findings and recommendations as documented above. ? Results Discharge Labs BACTERIOLOGY MRSA PCR Result Negative, MRSA target DNA not detected. ()?? 02/27/2022 22:30 S Aureus ??PCR Result Negative, SA target DNA not detected. ()?? 02/27/2022 22:30 ?? BLOOD COUNT & DIFF WBC 6.2 k/mm3 ()?? 03/10/2022 01:05 RBC 3.42 m/mm3 (Low)?? 03/10/2022 01:05 Hgb 9.1 Gm/dL (Low)?? 03/10/2022 01:05 Hct 28.4 % (Low)?? 03/10/2022 01:05 MCV 83.0 femtoliters ()?? 03/10/2022 01:05 MCH 26.6 pg (Low)?? 03/10/2022 01:05 MCHC 32.0 g/dL (Low)?? 03/10/2022 01:05 Platelet Count 584 k/mm3 (High)?? 03/10/2022 01:05 RDW-SD 38.4 femtoliters ()?? 03/10/2022 01:05 MPV 8.4 femtoliters (Low)?? 03/10/2022 01:05 Nucleated RBC (Automated) 0.0 #/100 WBC'S ()?? 03/10/2022 01:05 Abs. NRBC 0.0 k/mm3 ()?? 03/10/2022 01:05 Abs. Neut 3.2 k/mm3 ()?? 03/10/2022 01:05 Abs. Lymph 2.2 k/mm3 ()?? 03/10/2022 01:05 Abs. [place] 0.4 k/mm3 ()?? 03/10/2022 01:05 Abs. Eo 0.3 k/mm3 ()?? 03/10/2022 01:05 Abs. Baso 0.0 k/mm3 ()?? 03/10/2022 01:05 Neut % 51.6 % ()?? 03/10/2022 01:05 Lymph % 35.6 % ()?? 03/10/2022 01:05 [place] % 6.8 % ()?? 03/10/2022 01:05 Eos % 4.5 % ()?? 03/10/2022 01:05 Baso % 0.5 % ()?? 03/10/2022 01:05 Imm Gran 1.0 % ()?? 03/10/2022 01:05 Abs. Imm Gran 0.1 k/mm3 ()?? 03/10/2022 01:05 ?? CARDIAC High Sensitivity Troponin (HSTnT) <6 ng/L ()?? 02/27/2022 20:16 ? CHEM GENERAL Sodium 137 mmol/L ()?? 03/12/2022 05:30 Potassium 4.3 mmol/L ()?? 03/12/2022 05:30 Chloride 99 mmol/L ()?? 03/12/2022 05:30 Bicarbonate Level 28 mmol/L ()?? 03/12/2022 05:30 Anion Gap 10 ()?? 03/12/2022 05:30 Glucose Level 170 mg/dL (High)?? 03/03/2022 06:19 Glucose, POC 195 mg/dL (High)?? 03/12/2022 12:00 BUN 9 mg/dL ()?? 03/12/2022 05:30 Creatinine-Blood 0.6 mg/dL ()?? 03/12/2022 05:30 Estimated GFR Creatinine 112 ML/MIN/1.73 M2 ()?? 03/12/2022 05:30 Calcium 8.6 mg/dL ()?? 03/03/2022 06:19 Calcium, Ionized pH Corrected 1.24 mmol/L ()?? 03/12/2022 05:30 Phosphorus 4.1 mg/dL ()?? 03/12/2022 05:30 Magnesium 1.4 mg/dL (Low)?? 03/12/2022 05:30 Protein, Total 5.2 Gm/dL (Low)?? 02/28/2022 04:00 Albumin 2.9 Gm/dL (Low)?? 02/28/2022 04:00 AG Ratio 1.3 ()?? 02/27/2022 09:39 Alkaline Phosphatase 182 units/L (High)?? 03/02/2022 03:44 AST (SGOT) 38 units/L (High)?? 03/01/2022 04:30 ALT (SGPT) 39 units/L (High)?? 03/01/2022 04:30 Bilirubin, Total 0.7 mg/dL ()?? 03/01/2022 04:30 Bilirubin, Direct 0.2 mg/dL ()?? 03/01/2022 04:30 Bilirubin, Indirect 0.5 mg/dL ()?? 03/01/2022 04:30 Lactate 1.2 mmol/L ()?? 02/27/2022 11:46 ?? COAG INR 1.1 ()?? 03/09/2022 17:39 Protime (PT) 11.5 seconds (High)?? 03/09/2022 17:39 D-Dimer 12.22 mg/L FEU (High)?? 02/27/2022 09:39 ? HEME OTHER Hold Lavender Top SPECIMEN DISCARDED AFTER 24 HOURS. ()?? 03/06/2022 00:05 ? LIPID STUDIES Triglycerides 260 mg/dL (High)?? 03/05/2022 01:58 ? MISC. CHEMISTRY Hold Gel Top SPECIMEN DISCARDED AFTER 1 WEEK ()?? 02/27/2022 12:09 ? UA/URINALYSIS Appear/Color, Urine YELLOW ()?? 02/27/2022 11:31 Specific [place], Urine 1.016 ()?? 02/27/2022 11:31 pH, Urine 5.5 ()?? 02/27/2022 11:31 Albumin, Urine TRACE (Abnormal)?? 02/27/2022 11:31 Glucose, Urine 2+ (Abnormal)?? 02/27/2022 11:31 Ketones, Urine TRACE (Abnormal)?? 02/27/2022 11:31 Bilirubin, Urine NEGATIVE ()?? 02/27/2022 11:31 Hemoglobin, Urine NEGATIVE ()?? 02/27/2022 11:31 Nitrite, Urine NEGATIVE ()?? 02/27/2022 11:31 Leukocyte, Urine NEGATIVE ()?? 02/27/2022 11:31 Urobilinogen 2 mg/dL (Abnormal)?? 02/27/2022 11:31 WBC's, Urine 1 /HPF ()?? 02/27/2022 11:31 RBC's, Urine 1 /HPF ()?? 02/27/2022 11:31 Squamous Epith 5 /HPF ()?? 02/27/2022 11:31 Mucus SLIGHT /LPF ()?? 02/27/2022 11:31 Hold Urine Culture Testing available 48 hours from time of collection. ()?? 02/27/2022 11:31 ?? VIROLOGY Influenza A PCR NEGATIVE ()?? 02/27/2022 09:40 Influenza B PCR NEGATIVE ()?? 02/27/2022 09:40 RSV PCR NEGATIVE ()?? 02/27/2022 09:40 COVID-19 PCR Specimen Source NASAL ()?? 03/04/2022 09:39 COVID-19 PCR Result NEGATIVE ()?? 03/04/2022 09:39 ?(02/27/2022 14:[address] Angio Chest) IMPRESSION:?? 1. ??No evidence of pulmonary embolism. 2. ??Focal airspace opacities in the lingula and left lower lobe as well as additional nodular opacities in the right lower lobe may be infectious or inflammatory, however recommend short-term follow-up CT to ensure resolution. ?? (03/04/2022 05:00 EST MRI Lumbar Spine, Thoracic Spine,??Cervical??W/O Contrast) IMPRESSION: 1. No evidence of spinal infection, high-grade stenosis, or other acute abnormality of the cervical, thoracic, or lumbar spine. 2. Small right greater than left pleural effusions and patchy airspace airspace opacities, incompletely visualized but appearing progressed from 02/27/2022. Suggest correlation with dedicated chest imaging. ?? (03/03/2022 03:55 EST MRI Ext Upper W+W/O Contrast Right) IMPRESSION: Study limited by patient body habitus and limitations with patient positioning. The elbow was not included within the [id number]. No MRI evidence of osteomyelitis involving the proximal two thirds of the humerus. No evidence of septic arthritis of the shoulder or AC joint. No myositis within the [id number]. At least small right pleural effusion and right basilar signal abnormality which may reflect atelectasis or pneumonia. Consider correlation with radiographs. ?(03/01/2022 19:52 EST US Doppler Ext Lower Venous Left) IMPRESSION:? No evidence of deep venous thrombosis. ?? (02/28/2022 08:50 EST US Doppler Ext Lower Venous Right) IMPRESSION:? Slightly limited exam. Gastrocnemius veins not visualized. Peroneal veins only seen proximally. ?? No evidence of deep venous thrombosis. ?? (02/27/2022 13:17 EST US RUQ) IMPRESSION:? Mildly echogenic liver likely representing hepatic steatosis. 45 minutes spent on discharge ?? Case and plan were discussed with attending, Dr. Santiago. Mariela Fernandes MD, PGY1 Department of Psychiatry [facility]?? [1]??US RUQ; Chadwick SHERIFF, Jorden Galvez 02/27/2022 13:17 EST * Pamela SHERIFF, Oralia Pennington: PERFORM Event Display: Discharge/Transfer Note Hospital Authored Date: [id number] Attending Attestation:??I have seen and evaluated this patient.?I have discussed the case and its management with the resident and agree with the findings and plan as documented in the resident???s note except where modified. ?? Oralia Santiago MD * Osvaldo WILSON, Shane: PERFORM Event Display: Patient Education/Instruction Authored Date: [id number] Inpatient Adult Discharge Instructions [address] [address] Name: VILMA SERRANO : 1975 Visit: 02/27/2022 15:48:00 Current Date: 03/12/2022 17:06 Account: [id number] Inpatient Adult Discharge Instructions We would like [...] and their families. Surveys are administered by [employer] ?? If further treatment with your primary care physician or another doctor is recommended, it is important for you to keep the appointment. Call your primary care physician or return to the Emergency Department immediately if your condition worsens, fails to improve, or new symptoms develop. If you need to find a doctor, you can call [facility] for a referral at [phone] or toll free at [phone] or log in to [email or web address] ?? You can view and manage your care through the patient portal or by using a health care aniyah of your choosing. [employer] is a website that allows you to securely view your medical information including your hospital discharge summary, office visit summaries, medications and follow-up visits. You can also request appointments, renew medications, and request access to your medical information using a health care aniyah of your choosing, or just ask a question. You can enroll at [email or web address] or register during your next office visit. You have been discharged from [facility], Patient Care Unit: S2. If you have any questions regarding these instructions after you leave, please call us and we will be happy to assist you. [facility] Your Care Team Attending Physician Pamela SHERIFF, Oralia Pennington Consulting Providers Faye SHERIFF, Angel Ocampo; Lorie SHERIFF, Antwan iH; Sol SHERIFF, Njogu; Julian SHERIFF, Petr Tubbs; Hollis Castro MD, Jeb Ward; Harvinder SHERIFF, Alexis Reid Discharging Providers Mariela Fernandes MD Reason for Admission Pt coming from home. EMS was called for diff breathing, EMS found pt with AMS and pin pupils. Pt c/o diff breathing. Your Diagnosis SIRS without infection or organ dysfunction Sepsis Pneumonia MSSA bacteremia Pain of mid back Back pain, thoracic Tests Performed Below is a partial list of the tests performed during your hospitalization. You may have had other tests and procedures not included in this list. Please discuss all test results with your provider. Alk Phos ALT AST Basic Metabolic Panel Bilirubin Total + Direct BUN Calcium Ionized Calcium Level CBC CBC w/ Differential Comprehensive Metabolic Panel COVID-19, RSV, and Flu A/B, Rapid PCR Creatinine D Dimer Electrolytes Glucose Level GLUCOSE POC High??Sensitivity??Troponin T HOLD GEL TUBE HOLD LAVENDER TUBE INR Ionized Calcium Lactate Level LFT's Magnesium Level Mg Level MRSA PCR Nasal Swab Phosphorus Level Triglycerides Troponin T, High Sensitivity Urinalysis w/hold for Urine Culture CT Angio Chest Doppler Ext Lower Venous Right (US) IR PICC Insert Double Lumen Lumbar Spine MRI W/O Contrast MRI Cervical Spine W/O Contrast MRI Ext Upper W+W/O Contrast Right MRI Thoracic Spine W/O Contrast US Doppler Ext Lower Venous Left US Doppler Ext Upper Venous Right US RUQ XR Chest 2 Views Frontal and Lat Primary Care Provider Chaparrita Pizano DO Advance Directive Health Care Proxy on File Yes - Health Care Proxy No qualifying data available. Discharge Vitals Temperature: 99.1 DegF Height: 155 cm Pulse Rate:??105 bpm??High Weight: 131.9 kg Respiratory Rate: 18 br/min Body Mass Index:??53.69 kg/m2??Critical Systolic Blood Pressure:??141 mm Hg??High Body surface area: 2.36 Diastolic Blood Pressure:??95 mm Hg??High ?? Oxygen Saturation: 99 % ?? Studies Pending All tests and labs ordered during this hospital stay have been completed unless listed below. Please discuss all pending results with your provider listed above in these instructions. ?? Add On Lab Order BUN Blood Culture Blood Culture #2 COVID-19 (2019 Novel Coronavirus) PCR Creatinine Electrolytes Ionized Calcium Magnesium Level Phosphorus Level What to do next Instructions From Your Doctor DIAGNOSIS: MSSA (methicillin-sensitive Staphylococcus aureus) Bacteremia ? Your specific PATIENT CARE INSTRUCTIONS (what to do / when to return): Follow up with your primary care doctor in 1 week. Call to schedule appointment. Follow up with your primary care doctor about another CT scan for your lung nodules after 05/28/22. Please return if you feel as if you have signs of another blood infection - ??tachypnea, shaking chills, persistent fever, altered sensorium, hypotension, and gastrointestinal symptoms (abdominal pain, nausea, vomiting, diarrhea). ?? MEDICATIONS (what medications you should start (or stop) taking): New medications: Cefazolin 2gm every 8 hours through 03/31/22 Robitussin for cough as needed Restart simvastatin ?? You can restart all of your home medications. Please continue??your bowel regimen. Discharge Orders Scheduled Follow-Up Appointments Tuesday 11:40 AM EST ?? With: Antwan Melo MD Where: [facility] Infectious Disease [address] [place] [id number]- You Need to Schedule the Following Appointments Follow Up with??Antwan Melo MD When??03/23/2022 11:40 AM EST Where: [address] [place] [address] [place] [address]- Follow Up with??Chaparrita Pizano DO When??Within 1 week: call to discuss follow up visit Where: ?? Discharge Medications VILMA SERRANO :1975 Visit Date:02/27/2022 Medications: Please continue your medications until treatment is completed or stopped by your provider. Medications not listed below should be discontinued. Discuss any questions related to medications with your provider. What How Much When Instructions Next Dose New ceFAZolin (ceFAZolin 2 g injection) 2 gram Intravenous Push Every 8 hours 9:00pm New Guaifenesin/ Dextromethorphan (dextromethorphan-guaifenesin 10 mg-100 mg/ 5 mL oral liquid) 10 Milliliter Oral Twice a day as needed for Cough Take as needed for cough up to 2 times a day. ?? Pickup at [facility] 3 as needed New Lidocaine Topical (lidocaine 5% topical film) See instructions Topically Daily as needed for pain remove patches after 12 hours ?? Pickup at [facility] 3 Changed Pantoprazole (pantoprazole 40 mg oral delayed release tablet) 1 tab(s) Oral Daily Duration: 30 Days 9:00am Unchanged Albuterol (albuterol 0.042% inhalation solution) 3 Milliliter Nebulized inhalation 4 times a day as needed for Wheezing/Shortness of Breath as needed Unchanged Albuterol (albuterol CFC free 90 mcg/ inh inhalation aerosol) 2 puff(s) Inhalation 4 times a day as needed for for wheezing as needed Unchanged Bisacodyl (bisacodyl 5 mg oral delayed release tablet) 1 tab(s) Oral Daily 9:00pm Unchanged Calcium Carbonate (Tums 500 mg oral tablet, chewable) 1 tab(s) Chew Every 4 hours as needed for Dyspepsia as needed Unchanged Cholecalciferol (Vitamin D3 2000 intl units oral capsule) 1 capsule Oral 3 times a day 9:00pm Unchanged DiphenhydrAMINE (Banophen 50 mg oral capsule) 1 capsule Intravenous Push 4 times a day as needed for as needed for itching as needed Unchanged Docusate-Senna (Senna Plus 50 mg-8.6 mg oral tablet) 2 tab(s) Oral Daily at Bedtime 9:00pma Unchanged Hydromorphone (HYDROmorphone 1 mg/ mL oral liquid) 4 Milliliter Oral Every 6 hours as needed for as needed for pain as needed Unchanged Insulin Aspart (NovoLOG FlexPen 100 units/ mL subcutaneous solution) See instructions Use as per sliding scale ?? Unchanged Insulin Glargine 35 unit(s) Subcutaneous Injection Twice a day 9:00pm Unchanged Lorazepam (LORazepam 0.5 mg oral tablet) 1 tab(s) Oral Daily at Bedtime 9:00pm Unchanged Miscellaneous Rx (ENSURE CLEAR LIQD) 1 bottle 3 times a day with meals with meals Unchanged Ondansetron (ondansetron 4 mg oral tablet, disintegrating) 4 Milligram Intravenous Push Every 6 hours as needed for Nausea & Vomiting as needed Unchanged Potassium Chloride (potassium chloride 8 mEq (600 mg) oral capsule, extended release) 1 capsule Oral Daily 9:00am Unchanged Propranolol (propranolol 120 mg oral capsule, extended release) 1 capsule Oral Daily at Bedtime Duration: 30 Days 9:00pm Unchanged Simvastatin (simvastatin 40 mg oral tablet) 1 tab(s) Oral Daily at Bedtime Pickup at [facility] 3 9:00pm Unchanged Sucralfate (Carafate 1 gm oral tablet) 1 tab(s) Oral 3 times a day before meals and bedtime Duration: 30 Days Pickup at [facility] 3 meals/bed Unchanged Sumatriptan (SUMAtriptan 50 mg oral tablet) 1 tab(s) Oral Daily as needed for for migraine headache may repeat dose after 2 hours up to a maximum of 2 ?? as needed Pharmacy Information [facility] 3: [address] [place] [address], [place] [id number] [phone] Test Results Below is a partial list of the most recent Laboratory test results done prior to this discharge. You may have had other tests and procedures not included in this list. Please discuss all test resultswith your provider. Alk Phos (03/02/2022) ???Alkaline Phosphatase - 182 units/L ALT (03/01/2022) ???ALT (SGPT) - 39 units/L AST (03/01/2022) ???AST (SGOT) - 38 units/L Basic Metabolic Panel (02/28/2022) ???Sodium - 128 mmol/L???Potassium - 3.6 mmol/L???Chloride - 96 mmol/L???Bicarbonate Level - 24 mmol/L???Anion Gap - 8???Glucose Level - 231 mg/dL???BUN - 9 mg/dL???Creatinine-Blood - 0.6 mg/dL???Estimated GFR Creatinine - 110 ML/MIN/1.73 M2???Calcium - 7.7 mg/dL Bilirubin Total + Direct (03/01/2022) ???Bilirubin, Total - 0.7 mg/dL???Bilirubin, Direct - 0.2 mg/dL???Bilirubin, Indirect - 0.5 mg/dL BUN (03/12/2022) ???BUN - 9 mg/dL Calcium Ionized (03/05/2022) ???Calcium, Ionized pH Corrected - 1.20 mmol/L Calcium Level (03/03/2022) ???Calcium - 8.6 mg/dL CBC (03/03/2022) ???WBC - 8.8 k/mm3???RBC - 3.42 m/mm3???Hgb - 9.1 Gm/dL???Hct - 28.1 %???MCV - 82.2 femtoliters???MCH - 26.6 pg???MCHC - 32.4 g/dL???Platelet Count - 281 k/mm3???RDW-SD - 39.1 femtoliters???MPV - 9.2femtoliters???Nucleated RBC (Automated) - 0.0 #/100 WBC'S???Abs. NRBC - 0.0 k/mm3 CBC w/ Differential (03/10/2022) ???WBC - 6.2 k/mm3???RBC - 3.42 m/mm3???Hgb - 9.1 Gm/dL???Hct - 28.4 %???MCV - 83.0 femtoliters???MCH - 26.6 pg???MCHC - 32.0 g/dL???Platelet Count - 584 k/mm3???RDW-SD - 38.4 femtoliters???MPV - 8.4femtoliters???Nucleated RBC (Automated) - 0.0 #/100 WBC'S???Abs. NRBC - 0.0 k/mm3???Abs. Neut - 3.2 k/mm3???Abs. Lymph - 2.2 k/mm3???Abs. [place] - 0.4 k/mm3???Abs. Eo - 0.3 k/mm3???Abs. Baso - 0.0 k/mm3???Neut % - 51.6 %???Lymph % - 35.6 %???[place] % - 6.8 %???Eos % - 4.5 %???Baso % - 0.5 %???Imm Gran - 1.0 %???Abs. Imm Gran - 0.1 k/mm3 Comprehensive Metabolic Panel (02/27/2022) ???Sodium - 130 mmol/L???Potassium - 3.7 mmol/L???Chloride - 97 mmol/L???Bicarbonate Level - 24 mmol/L???Anion Gap - 9???Glucose Level - 215 mg/dL???BUN - 12 mg/dL???Creatinine-Blood - 0.6 mg/dL???Estimated GFR Creatinine - 111 ML/MIN/1.73 M2???Calcium - 8.4 mg/dL???Protein, Total - 6.4 Gm/dL???Albu min - 3.6 Gm/dL???AG Ratio - 1.3???Alkaline Phosphatase - 223 units/L???AST (SGOT) - 95 units/L???ALT (SGPT) - 68 units/L???Bilirubin, Total - 1.8 mg/dL COVID-19, RSV, and Flu A/B, Rapid PCR (02/27/2022) ???Influenza A PCR - NEGATIVE???Influenza B PCR - NEGATIVE???RSV PCR - NEGATIVE???COVID-19 PCR Specimen Source - NASAL???COVID-19 PCR Result - NEGATIVE Creatinine (03/12/2022) ???Creatinine-Blood - 0.6 mg/dL???Estimated GFR Creatinine - 112 ML/MIN/1.73 M2 D Dimer (02/27/2022) ???D-Dimer - 12.22 mg/L FEU Electrolytes (03/12/2022) ???Sodium - 137 mmol/L???Potassium - 4.3 mmol/L???Chloride - 99 mmol/L???Bicarbonate Level - 28 mmol/L???Anion Gap - 10 Glucose Level (03/03/2022) ???Glucose Level - 170 mg/dL GLUCOSE POC (03/12/2022) ???Glucose, POC - 195 mg/dL High??Sensitivity??Troponin T (02/27/2022) ???High Sensitivity Troponin (HSTnT) - 6 ng/L HOLD GEL TUBE (02/27/2022) ???Hold Gel Top - SPECIMEN DISCARDED AFTER 1 WEEK HOLD LAVENDER TUBE (03/06/2022) ???Hold Lavender Top - SPECIMEN DISCARDED AFTER 24 HOURS. INR (03/09/2022) ???INR - 1.1???Protime (PT) - 11.5 seconds Ionized Calcium (03/12/2022) ???Calcium, Ionized pH Corrected - 1.24 mmol/L Lactate Level (02/27/2022) ???Lactate - 1.2 mmol/L LFT's (02/28/2022) ???Protein, Total - 5.2 Gm/dL???Albumin - 2.9 Gm/dL???Alkaline Phosphatase - 200 units/L???AST (SGOT) - 56 units/L???ALT (SGPT) - 50 units/L???Bilirubin, Total - 1.4 mg/dL???Bilirubin, Direct - 0.7 mg/dL???Bilirubin, Indirect - 0.7 mg/dL Magnesium Level (03/12/2022) ???Magnesium - 1.4 mg/dL Mg Level (03/05/2022) ???Magnesium - 1.7 mg/dL MRSA PCR Nasal Swab (02/27/2022) ???MRSA PCR Result - Negative, MRSA target DNA not detected.???S Aureus PCR Result - Negative, SA target DNA not detected. Phosphorus Level (03/12/2022) ???Phosphorus - 4.1 mg/dL Triglycerides (03/05/2022) ???Triglycerides - 260 mg/dL Troponin T, High Sensitivity (02/27/2022) ? ?High Sensitivity Troponin (HSTnT) - <6 ng/L Urinalysis w/hold for Urine Culture (02/27/2022) ???Appear/Color, Urine - YELLOW???Specific [place], Urine - 1.016???pH, Urine - 5.5???Albumin, Urine - TRACE???Glucose, Urine - 2+???Ketones, Urine - TRACE???Bilirubin, Urine - NEGATIVE???Hemoglobin,Urine - NEGATIVE???Nitrite, Urine - NEGATIVE???Leukocyte, Urine - NEGATIVE???Urobilinogen - 2 mg/dL???WBC's, Urine - 1 /HPF???RBC's, Urine - 1 /HPF???Squamous Epith - 5 /HPF???Mucus - SLIGHT???Hold Urine Culture - Testing [...] SHELLY III or?? Trigger point of abdomen?? [facility] Team Senior Level Patient?? Education Materials Below is the list of Educational Leaflet Providered with your Discharge Instructions. Cefazolin Injection?? Bacteremia, Suspected (Adult)?? Valuables and Belongings I fully understand and agree that [facility] accepts no responsibility for all my personal [...] Review of Valuable and Belonging List: With patient Date for Pt to Sign Valuables/Belongings: 03/04/22 14:03:00 ?? Valuables & Belongings ?? Clothes Electronic devices Jewelry Monetary Items Personal devices Miscellaneous Medications (Valuables) Valuables at Bedside Bathrobe, Jacket, Pants, Shoes Cell phone Bracelet, Necklace, Wedding band, Rings Credit cards Glasses ? Valuables Sent Home ? Valuables Sent to Security ? Other Discharge Information Nutrition Discharge Status?? Nutrition Discharge Status?? Parenteral Nutrition: 165 mL ? Case Management Discharge Plan?? Discharge Plan?? Discharge Agency Information?? Discharge Level of Care at Discharge: Homehealth/VNA Service Categories #1: Home IV antibiotics, Infusion pump, Other: Home TPN Discharge Medical Equipment [employer]: [facility] ??# Service Comments #1: Resume home services, The agency will provide supplies and medication for homeTPN and IV antibiotics. ?? Pulmonary Rehab Status?? Pulmonary Rehab Discharge Status?? Respiratory Rate: 18 br/min Discharge Medical Equipment Companies: [facility] ??# ? Common Emergency Awareness Tips IS IT [...] are strongly encouraged to quit. Please call [facility] at [phone] or [phone] ([phone]) or log in to [email or web address] for referrals to smoking cessation programs. ?? The National Suicide Prevention Hotline is available 06/09 if you or someone you know needs to find a reason to keep living. By calling 8-555-548-VisiQuate (4613) you'll be connected to a skilled, trained counselor at a crisis center in your area. INPATIENT DISCHARGE INSTRUCTIONS SIGNATURE PAGE LETTYVILMA CABRAL Location:[facility] Registration Date and Time:02/27/2022 15:48 EST Primary Care Physician: Chaparrita Pizano DO, I VILMA SERRANO, have received the above patient education materials/instructions and have verbalized understanding. If ambulance or transport services are being used I further acknowledge being given a choice of service. ?? If you need to contact me, please call me at this number: . Patient/Soapstoner Name: Patient/Soapstoner Signature: Relationship to Patient: Witness Name/Signature: Date: * Mariela Fernandes MD: PERFORM Event Display: Patient Education Leaflets Authored Date: [id number] Cefazolin Injection ?? [id number] Cefazolin Injection Uses For treating bacterial infection. ?? Instructions Carefully follow the instructions for preparing this medicine before injection. Check the medicine before each use. If the liquid medicine has any particles in it, appears discolored, or if the vial appears damaged, do not use it. Protect medicine from light. Speak with your nurse or pharmacist about how long the medicine can be stored safely at room temperature or in the refrigerator before it needs to be discarded. Never use any medicine that has . Space doses evenly to keep a steady amount of medicine in the body. If you miss a dose, contact your doctor for instructions. Tell your doctor and pharmacist about all your medicines. Include prescription and ykmd-dhu-jmfckcobboguznqf, vitamins, and herbal medicines. Tell your doctor if symptoms do not get better or if they get worse. Keep using this medicine for the full number of days that it is prescribed. Do not stop the medicine even if you start to feel better. Keep all appointments for medical exams and tests while on this medicine. ?? Cautions Tell your doctor and pharmacist if you ever had an allergic reaction to a medicine. Some patients taking this medicine have experienced serious side effects. Please speak with your doctor to understand the risks and benefits associated with this medicine. Do not use the medication any more than instructed. Watch for excessive bruising or bleeding. Contact your doctor if you notice any. Please tell your doctor if you have moderate to severe diarrhea while on this medicine. Do not treat the diarrhea with lvas-auq-xpyunaw diarrhea medicine. Tell the doctor or pharmacist if you are , planning to be , or . Please tell all your doctors and dentists that you are on this medicine before they provide care. Do not start or stop any other medicines without first speaking to your doctor or pharmacist. Used needles and syringes should be thrown away properly in a medical waste container. Ask your doctor or pharmacist if you need help. Do not share this medicine with anyone who has not been prescribed this medicine. ?? Side Effects The following is a list of some common side effects from this medicine. Please speak with your doctor about what you should do if you experience these or other side effects. ??? decreased appetite ??? diarrhea ??? headaches ??? pain, redness, swelling near injection ??? nausea and vomiting ??? pain near injection site ??? stomach upset or abdominal pain ??? yeast infection of mouth ??? vaginal itching or yeast infection Call your doctor or get medical help right away if you notice any of these more serious side effects: ??? bleeding or bruising ??? confusion ??? severe, watery or bloody diarrhea ??? fast or irregular heart beats ??? signs of liver damage (such as yellowing of eye or skin, dark urine, or unusual tiredness) ??? seizures ??? shortness of breath ??? unusual or unexplained tiredness or weakness ??? dark urine A few people may have an allergic reaction to this medicine. Symptoms can include difficulty breathing, skin rash, itching, swelling, or severe dizziness. If you notice any of these symptoms, seek medical help quickly. ?? Extra Please speak with your doctor, nurse, or pharmacist if you have any questions about this medicine. ?? [email or web address] IMPORTANT NOTE: This document tells you briefly how to take your medicine, but it does not tell youall there is to know about it. Your doctor or pharmacist may give you other documents about your medicine. Please talk to them if you have any questions. Always follow their advice. There is a more complete description of this medicine available in [employer] [place]. Scan this code on your smartphone or tablet or use the web address below. You can also ask your pharmacist for a printout. If you have any questions, please ask your pharmacist. The display and use of this drug information is subject to Terms of Use. Copyright(c) 2021 [employer]. ?? The [employer]. All rights reserved. This information is not intended as a substitute for professional medical care. Always follow your healthcare professional's instructions. ?? * Sapphire Bernal DO: PERFORM Event Display: Patient Education Leaflets Authored Date: [id number] Bacteremia, Suspected (Adult) ?? [id number] Bacteremia, Suspected (Adult) Bacteremia is a bacterial infection that has spread to the bloodstream. This is serious because it can cause a lot of harm to the body. It can spread to other organs, including the bones, joints, kidneys, brain, and lungs. Bacteremia that spreads and causes significant inflammation in the body is called sepsis. You will have lab tests and imaging tests. The lab tests will include blood cultures to check for bacteremia. Blood cultures will find out the type of bacteria that you have. You will likely be started on antibiotics even before the results of the blood cultures are known. Causes Bacteremia often starts with an infection in one area, but it then spreads to the blood. Almost anytype of infection can cause bacteremia. This includes: ??? Urinary tract infection ??? Skin infection ??? Gastrointestinal problem ??? Infection after surgery ??? Lung infection (pneumonia) ??? Infection of a medical record assistant placed in a vein or the bladder ?? Symptoms At first, symptoms may seem like any local infection or illness. But then they get worse. Symptoms can include: ??? Fever and chills ??? Loss of appetite ??? Upset stomach (nausea) or vomiting ??? Trouble breathing or fast breathing ??? Fast heart rate ??? Feeling lightheaded or faint ??? Skin rashes or blotches ??? Confusion, severe sleepiness, or loss of consciousness ?? Home care People with bacteremia are most often treated in the hospital. After the most severe part of the illness is better, you may be sent home to complete your treatment. When caring for yourself at home: ??? Rest at home for the first 2 to 3 days. When resuming activity, don't let yourself become too tired. ??? You can take acetaminophen or ibuprofen for pain, unlessyou were given a different pain medicine to use. Talk with your healthcare provider before using these medicines if you have chronic liver or kidney disease. Talk with your provider if you have had astomach ulcer or digestive bleeding. Also talk with your provider if you are taking medicine to prevent blood clots such as blood thinners. ??? If you were given antibiotics, take them until they areused up, or your provider tells you to stop. It's important to finish the antibiotics even though you feel better. This is to make sure the infection has cleared. ??? Your appetite may be poor, so a light diet is fine. Drink plenty of fluids (6 to 8 glasses of fluid per day). This includes water, soft drinks, sports drinks, juices, tea, or soup. ?? Follow-up care Follow up with your healthcare provider, or as advised. Once the results of the blood culture are known, your healthcare provider may change your antibiotic. You can call for the results. If you had X-rays, a CT scan, or an ultrasound, a healthcare provider will look at them. You will be told of any results that may affect your care. ?? Call 911 Call 911 if you have any of these: ??? Wheezing or trouble breathing ??? Trouble swallowing ??? Chest pain ??? Confusion or sudden change in behavior ??? Extreme drowsiness or trouble waking up ??? Fainting or loss of consciousness ??? Fast heart rate ??? Low blood pressure ??? Vomiting blood, or large amounts of blood in stool ??? Seizure ?? When to get medical care Call your healthcare provider if you have any of these: ??? Cough with lots of colored mucus, or blood in your mucus ??? Severe headache ??? Severe face, neck, throat, or ear pain ??? Belly pain ??? Weakness, dizziness, repeated vomiting, or diarrhea ??? Joint pain or a new rash ??? Burning feelingwhen peeing (urinating) ??? Fever of 100.4??F (38??C) or higher, or as advised by your provider ?? Last Reviewed Date: 2021 ?? [id number] [employer]. All rights reserved. This information is not intended as a substitute for professional medical care. Always follow your healthcare professional's instructions. ?? * Event Display: IR End of Case Report * Petr Jordan MD G: PERFORM, TRANSCRIBE, VERIFY, VERIFY Event Display: Result: Authored Date: [id number] Patient: VILMA SERRANO Study Date: 03/10/2022 Performing: Petr Jordan MD Referring: : 1975 Age: 46 Gender: FEMALE Pre-procedure diagnosis and Indication: 46 y/o F w/h/o asthma/COPD, AURELIO, HTN, DM2, GERD, HypoMg/TPN dependent, fibromyalgia, bipolar disorder, chronic abdominal/pelvic pain admitted with MSSA bacteremia likely 2/2 central line infection. Hemodynamically stable, cultures remain negative after all lines removed, now pending new line insertion. Discussed with IR potential for a DL PICC instead of the Polanco. She had significant concerns that the PICC was more of a temporary fix and in the past has had issues with PICC lines migrating in her extremities. Risk of infection, thrombosis, line failure similar from Polanco to PICC to my knowledge, attempted to reach out to surgery to see if any reason from surgical perspective to prefer one type of central access over the other but haven't heard back yet. Per IR due to her AURELIO/BiPAP hx she will need anesthesia present for Polanco placement which cannot be coordinated until later this week. These comments were obtained from the patient's medical record. Please be aware of that the risk of infection and thrombosis with a mini Polanco catheter is substantially less than with a PICC. It is not clear to me why she needs anesthesia present for a Polanco catheter placement. As detailed below it can be done with local anesthesia and kind words only. Exam: Prior to the procedure, the patient was seen and the nature of the procedure explained along with its attendant risks and benefits to . . The patient underwent a pre-anesthesia assessment. On completion of this it was determined the patient is Not appropriate for moderate sedation. As discussed with her procedure was done with local anesthesia and reassurance only.. The patient arrived in IR room 1 for a tunneled central venous catheter insertion PROCEDURE: The patient was positioned supine and secured with arm boards. The access site was evaluated with ultrasound and images archived. The site was prepped with chloraprep and draped in the usual sterile fashion. . Local anesthetic was given and The vessel was identified using, ultrasound access was gained into the left internal jugular vein using needle and wire from the kit and catheter was tunneled. The catheter was cut down to 29 cm and inserted .. The catheter was tested with good flow and return. No leaks were noted. The Catheter was flushed with heparin 10u/ml 4 ml's The catheter was Secured with a statlock and and access was closed using and tissue adhesive was used on the access site. The sterile field was maintained throughout the procedure and patient tolerated the procedure well with no complications of the procedure Extended unusual level of service. This was an unusually long procedure. As noted above the patient is not suitable for moderate sedation and was extremely anxious. As a consequence of this we spent an very long time making sure that the local anesthetic used had had more than enough time to take effect. Please also note an unusual length of time due to the patient's body habitus with a weight in excess of 120 kg as And the need to use fluoroscopy to redirect the guidewire from the left subclavian vein via from his internal jugular vein access into the brachiocephalic vein. estimated blood loss was minimal Specimens/samples: no specimens or samples were sent for this procedure [place] [address] [place] procedure instructions sent in envelope with the patient Impression: Satisfactory ultrasound and fluoroscopically guided placement of a tunneled CVC patient tolerated the procedure well with no complications of the procedure Should catheter malfunction develop please contact this service directly rather than having a diagnostic study performed elsewhere. This is not necessary. Extended unusual level of service. Fluoroscopy time and dose Total Fluoro Time: 1.9 mins Total dose 41 mGy Total DAP 502.3 - ?Gy/m2 No contrast was used for this procedure Local Anesthetic Lidocaine 1% w/ 4.2% sodium bicarbonate 10 ml's SQ Sensorcaine 0.5% w/ 1:200,000 Epi 10 ml's SQ Sensorcaine 0.5% w/ 1:200,000 Epi 5 ml's SQ Sensorcaine 0.5% w/ 1:200,000 Epi 5 ml's SQ Signed By Petr Jordan MD On 03/10/2022 17:37:09 Petr Jordan MD Dictated By: Petr Jordan MD Dictated Date/Time: 03/10/22 1:54 pm Reviewed By: Petr Jordan MD Signed By: Petr Jordan MD Signed Date/Time: 03/10/22 3:05 pm Transcribed By: [facility] Transcribed Date/Time: 03/10/22 3:05 pm * LISETHSPowerscrinarendra , CIS S: TRANSCRIBE Han Chowdhury MD: VERIFY Event Display: Result: Authored Date: [id number] INDICATION: Bacteremia. Arm pain. TECHNIQUE: Multiplanar multisequence MRI of the humerus was obtained with and without intravenous contrast material. 27 mL of Clariscan intravenous contrast was administered. Wlaub-ty-relb includes the proximal two thirds of the humerus. The elbow is excluded from the achwo-fi-tdyb. COMPARISONS: None. FINDINGS: Bone: Overall bone marrow signal is within normal limits. No MR evidence of osteomyelitis. No fracture. Soft tissues: No glenohumeral joint effusion. No AC joint effusion. Visualized musculature is normal in signal. Partially imaged small right pleural effusion and right basilar signal abnormality. IMPRESSION: Study limited by patient body habitus and limitations with patient positioning. The elbow was not included within the quodt-kr-omjj. No MRI evidence of osteomyelitis involving the proximal two thirds of the humerus. No evidence of septic arthritis of the shoulder or AC joint. No myositis within the tiisu-cl-ncjn. At least small right pleural effusion and right basilar signal abnormality which may reflect atelectasis or pneumonia. Consider correlation with radiographs. WSN: [id number] Ordering Physician: Christal Forbes Dictated By: Han Chowdhury MD Dictated Date/Time: 03/03/22 9:34 am Reviewed By: Han Chowdhury MD Signed By: Han Chowdhury MD Signed Date/Time: 03/03/22 9:34 am Transcribed By: DEIDRE Transcribed Date/Time: 03/03/22 9:25 am * Event Display: Cardiac Rhythm Strips Authored Date: * MURIEL Sun S: Rex Zamora MD: VERIFY Event Display: Result: Authored Date: US Doppler Ext Lower Venous Left Reason: Pain Tenderness Extremities; Clinical Question(s): Thrombus; Order Comment: COMPARISON: None IMAGING TECHNIQUE: Ultrasound of the veins from the groin through the calf was performed using grayscale, color, and spectral Doppler ultrasound assessing for complete compressibility and normal flowcharacteristics. FINDINGS: Common femoral vein: Patent. No thrombosis. Femoral vein: Patent. No thrombosis. Popliteal vein: Patent. No thrombosis. Gastrocnemius veins: The visualized portions are patent without evidence of thrombosis. Peroneal veins: The visualized portions are patent without evidence of thrombosis. Posterior tibial veins: The visualized portions are patent without evidence of thrombosis. Contralateral common femoral vein: Patent. No thrombosis. OTHER FINDINGS: None. IMPRESSION: No evidence of deep venous thrombosis. WSN: [id number] Ordering Physician: Jeb Hopkins Dictated By: Rex Ojeda MD Dictated Date/Time: 03/01/22 8:04 pm Reviewed By: Rex Ojeda MD Signed By: Rex Ojeda MD Signed Date/Time: 03/01/22 8:04 pm Transcribed By: DEIDRE Transcribed Date/Time: 03/01/22 8:03 pm * MURIEL Sun S: Rex Zamora MD: VERIFY Event Display: Result: Authored Date: [id number] US Doppler Ext Upper Venous Right Reason: Swelling Extremities; Clinical Question(s): Thrombosis COMPARISON: None. IMAGING TECHNIQUE: Ultrasound examination of the upper extremity deep venous system was performed using grayscale, color, and spectral wave analysis including response to compression. Assessment includes the contralateral jugular and subclavian vein. FINDINGS: Internal jugular vein: Patent. No thrombosis. Subclavian vein: Patent. No thrombosis. Axillary vein: Patent. No thrombosis. Brachial vein: Patent. No thrombosis. Basilic vein: Patent. No thrombosis. Cephalic vein: Patent. No thrombosis. Contralateral internal jugular vein: Patent. No thrombosis. Contralateral subclavian vein: Patent. No thrombosis. IMPRESSION: No evidence of venous thrombosis. WSN: [id number] Ordering Physician: Jeb Hopkins Dictated By: Rex Ojeda MD Dictated Date/Time: 03/01/22 8:05 pm Reviewed By: Rex Ojeda MD Signed By: Rex Ojeda MD Signed Date/Time: 03/01/22 8:05 pm Transcribed By: DEIDRE Transcribed Date/Time: 03/01/22 8:05 pm * MURIEL Sun S: Jorden Flores MD: VERIFY Event Display: Result: Authored Date: [id number] US Doppler Ext Lower Venous Right Reason: Immobility; pain at the hopkins region, patient mostly immobile, ddimer elevated. c o pain. x2days.; Clinical Question(s): Thrombus COMPARISON: None IMAGING TECHNIQUE: Ultrasound of the veins from the groin through the calf was performed using grayscale, color, and spectral Doppler ultrasound assessing for complete compressibility and normal flowcharacteristics. FINDINGS: Common femoral vein: Patent. No thrombosis. Femoral vein: Patent. No thrombosis. Popliteal vein: Patent. No thrombosis. Gastrocnemius veins: Not visualized. Peroneal veins: Seen proximally only. The visualized portions are patent without evidence of thrombosis. Posterior tibial veins: The visualized portions are patent without evidence of thrombosis. Contralateral common femoral vein: Patent. No thrombosis. OTHER FINDINGS: IMPRESSION: Slightly limited exam. Gastrocnemius veins not visualized. Peroneal veins only seen proximally. No evidence of deep venous thrombosis. WSN: [id number] Ordering Physician: Jessica Rasmussen Dictated By: Jorden Farias MD Dictated Date/Time: 02/28/22 9:35 am Reviewed By: Jorden Farias MD Signed By: Jorden Farias MD Signed Date/Time: 02/28/22 9:35 am Transcribed By: DEIDRE Transcribed Date/Time: 02/28/22 9:33 am * MURIEL Sun S: TRANSCJorden Carnes MD: VERIFY Event Display: Result: Authored Date: [id number] Chest 2 Views Frontal and Lat Hx of Present Illness: Pt coming from home. EMS was called for diff breathing, EMS found pt with AMS and pin pupils. Pt c o chest pain with inspiration.; Reason: Other:; Shortness of Breath, Fever; Clinical Question(s): Pneumonia / Pneumonia COMPARISON: 12/23/2021 FINDINGS: LINES AND TUBES: Right chest Port-A-Cath in place. Right upper extremity PICC, not significantly changed in location. LUNGS AND PLEURA: Clear lungs. Normal pulmonary vascularity. No pleural effusion. No pneumothorax. HEART, MEDIASTINUM AND JAROCHO: Heart is at the upper limits of normal for size. Normal mediastinal and hilar contour. BONES AND SOFT TISSUES: No acute abnormality. There are surgical clips in the right upper quadrant. IMPRESSION: No evidence of acute abnormality. WSN: [id number] Ordering Physician: Isaac Lilly Dictated By: Jorden Genao MD Dictated Date/Time: 02/27/22 10:52 a Reviewed By: Jorden Genao MD Signed By: Jorden Genao MD Signed Date/Time: 02/27/22 10:52 am Transcribed By: DEIDRE Transcribed Date/Time: 02/27/22 10:51 am * BHSPowerscribe , CIS S: TRANSCRIBE Jorden Genao MD: VERIFY Erik SHERIFF Syed: SIGN Event Display: Result: Authored Date: [id number] US RUQ INDICATION: Abdominal pain, concern for cholecystitis. COMPARISON: 05/20/2008. CT abdomen/pelvis 12/05/2021 FINDINGS: Liver: Mildly echogenic parenchyma. No suspicious lesion. Smooth hepatic contour. Main portal vein patent with normal hepatopetal direction of flow. Gallbladder: Status post cholecystectomy. Biliary Tree: No intrahepatic or extrahepatic bile duct dilation is identified. Common duct measures: 0.4 cm. Pancreas: No abnormality in the visualized portions of the pancreas. Right kidney: 12.5 cm in length. Lower pole not completely visualized due to obscuring bowel gas, however, normal parenchymal echotexture and thickness of the visualized right kidney with no hydronephrosis, stone or mass. IMPRESSION: Mildly echogenic liver likely representing hepatic steatosis. I have personally reviewed the images and I agree with this report. WSN: [id number] Ordering Physician: Isaac Lilly Dictated By: Syed Valencia MD Dictated Date/Time: 02/27/22 1:47 pm Reviewed By: Jorden Genao MD Signed By: Jodren Genao MD Signed Date/Time: 02/27/22 1:52 pm Transcribed By: DEIDRE Transcribed Date/Time: 02/27/22 1:44 pm Hospital Progress note * Shane Riley RN: PERFORM, SIGN, VERIFY Event Display: Progress Note Hospital Authored Date: [id number] Patient: VILMA SERRANO Age: 46 years Sex: Female : 1975 Associated Diagnoses: None Author: Shane Riley RN Findings Nursing Data Musculoskeletal Data. : Musculoskeletal Data. 03/12/2022 9:56 EST Musculoskeletal WNL except . Neurological Data. : Neurological Data. 03/12/2022 9:56 EST Neurological Symptoms Weakness or loss of muscle strength Facial Symmetry Intact Pupil description, left Regular Pupil description, right Regular Pupil reaction, left Brisk Pupil reaction, right Brisk Pupil Size, Left 3 mm Pupil Size, Right 3 mm Response Eye Opening Spontaneously Motor Response-Adult Obeys commands Verbal Response-Adult Oriented and converses Carlos Enrique Coma Score 15 Pain relief acceptable Yes Neuro WNL except Eyes and Movements Conjugate gaze: Move in same direction at same speed Swallow - Neuro Normal . Narrative/Incidental pt a & o x 3, able to make needs known, no complaint of pain, see CIS and physician notes for further and complete details, call gray in place. . Discharge Information Case Management Discharge Plan : Case Management Discharge Plan Data 03/12/2022 10:30 EST Discharge Level of Care at Discharge Homehealth/VNA Discharge Medical Equipment Companies [facility] # Service Categories #1 Home IV antibiotics, Infusion pump, Other: Home TPN Service Comments #1 Resume home services, The agency will provide supplies and medication for home TPN and IV antibiotics. * Gary Phipps RN: PERFORM, SIGN, VERIFY Event Display: Progress Note Hospital Authored Date: [id number] Patient: VILMA SERRANO Age: 46 years Sex: Female : 1975 Associated Diagnoses: None Author: Brennan Phipps RNston Findings Nursing Data Vital Signs : VITAL SIGNS SECTION 03/11/2022 20:26 EST Temperature 98.2 DegF Temperature Route Oral Pulse Rate 100 bpm H Respiratory Rate 18 br/min Systolic Blood Pressure 138 mm Hg Diastolic Blood Pressure 77 mm Hg Blood pressure sites Arm, right Mean Arterial Pressure 97 mm Hg Pulse Pressure 61 mm Hg Oxygen Saturation 95 % Mode of Delivery (Oxygen) Room air . Evaluation Pt a+ox4. No significant overnight events to report. Bed in lowest locked postion, bed alarm on, care provided, and purposeful rounding complete.. * Mariela Fernandes MD: MODIFY, MODIFY, PERFORM, MODIFY, MODIFY, MODIFY Event Display: Progress Note Hospital Authored Date: [id number] Patient: ??LOVING, VILMA ? Age:??46 Years?Sex:??Female?:??1975?? Subjective No acute events overnight. Patient reports pain at Polanco insertion site??not controlled on??current??p.o. Dilaudid and IV??Dilaudid 1 mg yesterday.?? Later in the day patient requested additional pain??medication,??recommended??heat??and??lidocaine patch??to left shoulder??and back. Endorses nausea??is the same.?? Concerned about??her chest pain radiating to her back.?? Her requested to speak to her adult protective caseworker, I??informed him. ?? Per nutrition, can consider GJ tube for enteral feeding in the future. Can f/u outpatient with her PCP. Review of Systems All systems reviewed and negative except as noted in subjective. Objective Measurements?? Height: 155 cm (03/11/22) Weight: 129 kg (03/04/22) Dry Weight: 126 kg (02/27/22) Body Mass Index:??53.69 kg/m2??Critical (03/04/22) ? Vital Signs?? Temperature: 98.7 DegF (03/11/22 11:03:00) Temperature Route: Oral (03/11/22 11:03:00) Pulse Rate:??104 bpm??High (03/11/22 11:03:00) Respiratory Rate: 18 br/min (03/11/22 11:03:00) Systolic Blood Pressure: 119 mm Hg (03/11/22 11:03:00) Diastolic Blood Pressure:??101 mm Hg??High (03/11/22 11:03:00) Blood pressure sites: Arm, right (03/11/22 11:03:00) Mean Arterial Pressure: 107 mm Hg (03/11/22 11:03:00) Pulse Pressure: 18 mm Hg (03/11/22 11:03:00) Oxygen Saturation: 97 % (03/11/22 11:03:00) Mode of Delivery (Oxygen): Room air (03/11/22 11:03:00) Early Warning Score: 1 (03/11/22 11:06:05) ? Intake/Output? 02/27 15:48 03/11 07:00 03/10 07:00 03/09 07:00 03/08 07:00 ?? 03/11 11:47 03/11 11:47 03/11 06:59 03/10 06:59 03/09 06:59 Intake ?06592 ?118 ?287 ? 1757 ?834 Output ? 8926 ?0 ?0 ?0 ?0 Net Total ? 3698 ?118 ?287 ? 1757 ?834 ? Urine Count ? 26 ?1 ?5 ?6 ? 12 ? Physical Exam General:??Alert, appears comfortable sitting up in bed HEENT??Normocephalic. PERRL Respiratory:??Diminished b/l due to body habitus, no wheezes Cardiovascular:??Heart sounds normal. Regular rate and rhythm, no murmurs Gastrointestinal:??Abdomen soft, NT, ND. Diminished bowel sounds??could be 2/2 to body habitus. Neurologic:??No focal neurological deficits. Moves all extremities spontaneously. Skin:??No rashes, Polanco intact .??Mild erythema,??no pain on light palpation of left 1st toe. Extremities: Bilateral lower extremity edema L>R _ Inpatient Medications Medications (39) Active SCHEDULED: (15) Bisacodyl 5 mg EC Tablet (Bisacodyl Tablet) ??5 mg, By Mouth, Daily CeFAZolin 2 Gm Inj (ceFAZolin Inj) ??2 Gm, IV Push, Every 8 hours Colchicine 0.6 mg Tablet (colchicine 0.6 mg oral tablet) ??0.6 mg, By Mouth, Daily diphenhydrAMINE 50 mg/mL Inj (Benadryl Inj) ??50 mg 1 mL, IV Push, Every 6 hours Enoxaparin 40 mg Inj (Enoxaparin Inj) ??40 mg 0.4 mL, Subcutaneous Injection, Every 12 hours Insulin Lispro 100 units/mL Inj (3mL) (Insulin LISPRO Scale) ??2-7 units, Subcutaneous Injection, Every 6 hours Lorazepam 0.5 mg Tablet (LORazepam 0.5 mg oral tablet) ??0.5 mg, By Mouth, Daily at bedtime NaCl 0.9% Flush 3ml (NaCL 0.9% Flush) ??3 mL, IV Push, Every 8 hours Ondansetron 2mg/mL Inj (2mL Vial) (Zofran Inj) ??8 mg, IV Push, Every 6 hours Pantoprazole 40 mg EC Tablet (pantoprazole 40 mg oral delayed release tablet) ??40 mg, By Mouth, Daily at bedtime Polyethylene Glycol 17 Gm Powder (MiraLax Powder) ??17 Gm 1 pack/packet, By Mouth, Daily Potassium Chloride 10mEq ER Tablet (potassium chloride 10 mEq oral tablet, extended release) ??10 mEq, By Mouth, Daily Senna 8.6 mg / Docusate 50 mg tablet (docusate-senna 50 mg-8.6 mg oral capsule) ??1 tablet, By Mouth, Daily at bedtime Sucralfate 1 Gm Tablet (Carafate 1 gm oral tablet) ??1 Gm, By Mouth, 3 times a day before meals andbedtime Vitamin D 1000 IU Tablet (cholecalciferol 1000 intl units oral tablet) ??2,000 International_Units,By Mouth, Daily CONTINUOUS: (2) Lipid 20% Emulsion Cont IV (250 mL) 36 Gm (Lipid Emulsion 20% 250mL 36 Gm) ??36 Gm 180 mL, IV Infusion, 18 mL/hr TPN Adult Central Custom 1,800 mL + Amino Acids 15% (Clinisol) TPN Adult 75 Gm + TPN Dextrose Solut(Adult Central Custom 1,800 mL + Amino Acids 15% (Clinisol - TPN) 75 Gm + Dextrose ??Cont IV 125 Gm+) ??1,800 mL, IV Central Line PRN: (22) Albuterol 90mcg/Inhalation Inhaler HFA (albuterol CFC free 90 mcg/inh inhalation aerosol) ??180 mcg2 puffs, Inhalation, 4 times a day Calcium Carbonate 500 mg (Calcium 200 mg) Chewable Tablet (Tums 500 mg oral tablet, chewable) ??500mg 1 tablet, Chew, Every 4 hours Dextromethorphan-Guaifenesin 20 mg-200 mg/10 mL Liqu UD (Robitussin DM Liquid) ??10 mL, By Mouth, Every 4 hours Dextrose Inj Syringe (Dextrose 50% Inj Syringe (25Gm)) ??12.5 Gm, IV Push Slowly, Every 20 minutes Dextrose Inj Syringe (Dextrose 50% Inj Syringe (25Gm)) ??25 Gm, IV Push Slowly, Every 15 minutes diphenhydrAMINE 50 mg/mL Inj (Benadryl Inj) ??50 mg 1 mL, IV Push, 4 times a day diphenhydrAMINE 50 mg/mL Inj (DiphenhydrAMINE Inj (PACU ONLY)) ??12.5 mg 0.25 mL, IV Push, Once Glucagon 1 mg Inj (Glucagon Inj) ??1 mg, Intramuscular, Once Glucose 40% Gel (15 Gm) (Glucose Gel) ??15 Gm, By Mouth, Every 20 minutes Glucose 40% Gel (15 Gm) (Glucose Gel) ??30 Gm, By Mouth, Every 20 minutes Heparin 100 units/mL (Heparin Flush 100 units/mL Inj) ??500 units 5 mL, IV Push, Every 30 days Heparin Lock Flush 50 units / 5 mL (Heparin Flush 10 units/mL Inj) ??50 units 5 mL, IV Push, Every hour HYDROmorphone 4 mg Tablet (Dilaudid 2 mg oral tablet) ??4 mg, By Mouth, Every 4 hours Lorazepam 2 mg Inj Syringe (LORazepam Inj (PACU ONLY)) ??1 mg, IV Push Slowly, Once NaCL 0.9% Flush 10ml (NaCL 0.9% Flush) ??10 mL, IV Push, Every 30 days NaCL 0.9% Flush 10ml (NaCL 0.9% Flush) ??10 mL, IV Push, Every hour NaCL 0.9% Flush 10ml (NaCL 0.9% Flush) ??10 mL, IV Push, Every hour NaCl 0.9% Flush 3ml (NaCL 0.9% Flush) ??3 mL, IV Push, Every 8 hours nalOXONE ??400mcg/mL Inj (nalOXONE Inj) ??0.04 mg 0.1 mL, IV Push, Every 5 minutes OxyCODONE 5 mg IR Tablet (Oxycodone 5mg Oral Tablet (PACU ONLY)) ??2.5 mg, By Mouth, Once Senna 8.6 mg / Docusate 50 mg tablet (Docusate/Senna Tablet) ??1 tablet, By Mouth, 2 times a day Simethicone 80 mg Chewable Tablet (Simethicone Tablet) ??80 mg, Chew, 3 times a day ? Results Recent Labs BLOOD COUNT & DIFF WBC 6.2 k/mm3 ()?? 03/10/2022 01:05 RBC 3.42 m/mm3 (Low)?? 03/10/2022 01:05 Hgb 9.1 Gm/dL (Low)?? 03/10/2022 01:05 Hct 28.4 % (Low)?? 03/10/2022 01:05 MCV 83.0 femtoliters ()?? 03/10/2022 01:05 MCH 26.6 pg (Low)?? 03/10/2022 01:05 MCHC 32.0 g/dL (Low)?? 03/10/2022 01:05 Platelet Count 584 k/mm3 (High)?? 03/10/2022 01:05 RDW-SD 38.4 femtoliters ()?? 03/10/2022 01:05 MPV 8.4 femtoliters (Low)?? 03/10/2022 01:05 Nucleated RBC (Automated) 0.0 #/100 WBC'S ()?? 03/10/2022 01:05 Abs. NRBC 0.0 k/mm3 ()?? 03/10/2022 01:05 Abs. Neut 3.2 k/mm3 ()?? 03/10/2022 01:05 Abs. Lymph 2.2 k/mm3 ()?? 03/10/2022 01:05 Abs. [place] 0.4 k/mm3 ()?? 03/10/2022 01:05 Abs. Eo 0.3 k/mm3 ()?? 03/10/2022 01:05 Abs. Baso 0.0 k/mm3 ()?? 03/10/2022 01:05 Neut % 51.6 % ()?? 03/10/2022 01:05 Lymph % 35.6 % ()?? 03/10/2022 01:05 [place] % 6.8 % ()?? 03/10/2022 01:05 Eos % 4.5 % ()?? 03/10/2022 01:05 Baso % 0.5 % ()?? 03/10/2022 01:05 Imm Gran 1.0 % ()?? 03/10/2022 01:05 Abs. Imm Gran 0.1 k/mm3 ()?? 03/10/2022 01:05 ?? CHEM GENERAL Sodium 139 mmol/L ()?? 03/11/2022 05:33 Potassium 4.5 mmol/L ()?? 03/11/2022 05:33 Chloride 100 mmol/L ()?? 03/11/2022 05:33 Bicarbonate Level 28 mmol/L ()?? 03/11/2022 05:33 Anion Gap 11 ()?? 03/11/2022 05:33 Glucose, POC 164 mg/dL (High)?? 03/11/2022 06:13 BUN 9 mg/dL ()?? 03/11/2022 05:33 Creatinine-Blood 0.6 mg/dL ()?? 03/11/2022 05:33 Estimated GFR Creatinine 111 ML/MIN/1.73 M2 ()?? 03/11/2022 05:33 Calcium, Ionized pH Corrected 1.25 mmol/L ()?? 03/11/2022 05:33 Phosphorus 4.1 mg/dL ()?? 03/11/2022 05:33 Magnesium 1.7 mg/dL ()?? 03/11/2022 05:33 ? Assessment/Plan ?46 y/o F w/h/o??asthma/COPD, AURELIO, HTN, DM2, GERD,??HypoMg/TPN dependent, fibromyalgia, bipolar disorder, chronic abdominal/pelvic pain admitted with MSSA bacteremia likely 2/2 central line infection. Hemodynamically stable, cultures remain negative after all lines removed, Polanco placed 03/10??without complications.?Resumed TPN on 03/11. ?? MSSA bacteremia Echo limited but negative for vegetations, MRI spine and RUE??negative for osteo/abscess. Per??ID should be on cefazolin but temporarily switched to PO linezolid when had limited IV access now back on cefazolin Recent blood cultures have been negative. - Cefazolin 2gm q8 (end date 03/31/22) - Per ID, weekly CBC with diff, BUN, creatinine while on antimicrobial ? ordered for week of 03/08/22 ? Needs outpatient??orders??for labs and antibiotics??on discharge, follow- up with case management - Repeat blood cx if she??spikes new fever ???Follow-up with ID??outpatient, signed off for now ?? GERD/Erosive gastritis Chronic hypoMg Constipation Complicated and unclear exact etiology of her hypoMg and general PO intolerance. Has followed w/Renal and GI OP in past, seems more likely a GI source of Mg loss but she has had no diarrhea and thus a normal Mg since admission. Did start moving her bowels today.??Unclear where the PO intolerance iscoming from, she does ok with ensures/liquids but also has significant abdominal pain??now improved. Has been on TPN since approx. Sep due to chronic pain/poor PO intake. ?? Home regimen: 4gm Mg on Tue/ 8gm Mg on Sat, and 3gm Mg daily via TPN Had??1 BM??03/09??on [facility] ?? - Scheduled: Bisacodyl, Miralax, Doc/Senna - Vit D QD - Pantoprazole 40mg QHS - Ondansetron 8mg q6 + Benadryl 50mg q6 - Ensures w/ meals/liquid diet - TPN to resume, nutrition consulted Daily labs per nutrition???Daily lytes, Mg, phos, BUN,??creatinine??(patient at risk for refeeding syndrome) - Nutrition to optimize??diet with fluids as can tolerate Ensures, ordered??ensures??and??carbohydrate??supplement - Per nutrition, can consider GJ tube for enteral feeding in the future. Can f/u outpatient with her PCP ?? Left??1st toe pain, improving exam not suggestive of septic joint,??cellulitis. Consider gout vs??start of pressure wound. Will defer imaging at this time.??She reports having gout flares in past, not on chronic allopurinol Improving on colchicine??more likely??gout flare. - Colchicine 0.6mg,??plan to discontinue??on 03/12? Type 2 Diabetes Home regimen: lantus 35u BID + SSI - Lantus 17u BID - Lispro SSI - POC q6hr as intake limited, consider increasing frequency??if intake increases - hypoglycemia measures ordered ?? Fibromyalgia Chest/Back/Shoulder pain Chronic abdominal pelvic pain syndrome Home regimen:??hydromorphone 4mg q6 liquid. seems most likely MSK, cardiac w/u negative, CTA negative for PE, MRI negative for osteo/septic joint - Hydromorphone PO tablet crushed ?? Chronic interstitial cystitis Neurogenic bladder -??Bladder scan qshift, SC >400cc ?? AURELIO/Obesity hypoventilation syndrome: BiPAP qHS ?? Asthma/COPD: Not in exacerbation thought did get albuterol MDI x1 yesterday. Suspect her dyspnea isrelated to atelectasis given prolonged bedbound status and pain limiting deep inspiration. Not hypoxic. - IS q4 while awake - OOB to chair as tolerated - PRN albuterol MDI ?? Hyperlipidemia:??last refill of simvastatin >1yr ago,??should resume at d/c ?? Migraine headaches: none currently, appeared to be on propranolol ppx in past but not filled in >1yr, consider PRN sumatripatan ?? Incidental nodules: noted on admission CTA to have??nodular opacities in R lower lobe and recommending short-term FU CT to ensure resolution. ?if 3mo??FU soon enough ? Code: FULL DVT ppx: Enoxaparin BID Diet:??Liquid/solids as tolerated,??TPN??to resume today??03/11 OMN/Disposition: Resuming TPN at risk for refeeding syndrome??pending??lab work tomorrow.?? Unable to resume outpatient TPN??on weekends. ?? Patient discussed with attending DrClarence??Pamela Fernandes MD PGY1 * Pamela SHERIFF, Oralia Pennington: PERFORM Event Display: Progress Note Hospital Authored Date: [id number] Attending Attestation:??I have seen and evaluated this patient.?I have discussed the case and its management with the resident and agree with the findings and plan as documented in the resident???s note except where modified. ?? Pain on L shoulder/ neck after polanco placement??likely MSK, will try heat/ lido patch and avoid further IV dilaudid in anticipation of dc home tomorrow. ?? Oralia Santiago MD MR Cervical spine WO contrast * [facility] , [facility] S: ASHWINI Cintron MD, Joellen Reid: VERIFY Event Display: Result: Authored Date: [id number] MRI Lumbar Spine W/O Contrast, MRI Thoracic Spine W/O Contrast, MRI Cervical Spine W/O Contrast INDICATION: Reason: Back Pain; low back pain in setting of MSSA bacteremia; Clinical Question(s): Other:; ?spinal osteomyelitis, abscess; Special Instructions: contrast allergy; Order Comment: Pleasesee Reference Text for complete list of contraindications Other: TECHNIQUE: MRI of the cervical, thoracic, and lumbar spine was performed without intravenous contrast utilizing sagittal T1, sagittal T2, sagittal STIR, axial T1, and fat saturated axial T2-weighted sequences. COMPARISON: MRI cervical spine, 10/02/2017. MRI thoracic spine, 10/02/2017. MRI lumbar spine, 08/03/2021. FINDINGS: NUMBERING: There is a standard complement of 7 cervical, 12 thoracic, and 5 lumbar vertebral bodies. CERVICAL SPINE: ALIGNMENT, VERTEBRAE, MARROW, AND DISCS: There is straightening of the typical cervical lordosis without significant subluxation. Vertebral body heights are preserved. Multilevel degenerative changesare noted, most prominently Modic 2 change at C5-6 and C6-7. No marrow edema or other concerning marrow signal abnormality is seen. There is multilevel disc desiccation and loss of disc space, including moderate to marked loss of disc height at C2-3, C5-6, and C6-7. No abnormal fluid signal is seenwithin the disc spaces. POSTERIOR FOSSA AND CORD: Visualized posterior fossa is normal. The cervical cord is normal in signal and caliber. No epidural fluid collection or thickening is seen. PARASPINAL TISSUES: Soft tissues of the neck are unremarkable. Major cervical flow voids are present. DETAILED FINDINGS BY LEVEL: C2-C3: Broad-based disc osteophyte complex with bilateral uncovertebral spurring. Minimal central stenosis. No significant neural foraminal narrowing. C3-C4: Mild broad-based disc osteophyte complex with left greater than right uncovertebral spurringand mild facet hypertrophy. Mild central stenosis, greater on the left. Mild right and severe left neural foraminal narrowing. C4-C5: Broad-based disc osteophyte complex with mild endplate spurring along with bilateral facet hypertrophy. No significant central stenosis. Minimal right and no significant left neural foraminal narrowing. C5-C6: Broad-based disc osteophyte complex with bilateral uncovertebral spurring and mild facet hypertrophy. No significant central stenosis. Mild right and moderate to severe left neural foraminal narrowing. C6-C7: Broad-based disc osteophyte complex with bilateral uncovertebral spurring and mild facet hypertrophy. No significant central stenosis. Minimal bilateral neural foraminal narrowing. C7-T1: No significant disc herniation, central stenosis, or neural foraminal narrowing. The above findings are similar to prior cervical spine MRI. THORACIC SPINE: ALIGNMENT, VERTEBRAE, MARROW, AND DISCS: Alignment is normal. Lateral superiorly concavity of T11 and T12 associated with Schmorl's nodes appear similar to prior. Vertebral body heights are otherwisemaintained. Modic 2 endplate changes are present at T10-11 T11-12. No marrow edema or other concerning marrow signal abnormality is seen. There is disc desiccation and mild to moderate loss of disc space at T10-11 and T11-12, and minimal loss of disc space at T1-T2 and T6-7. No abnormal fluid signal seen within the disc spaces. CORD: The thoracic cord is normal in signal and contour. No epidural fluid collection or thickeningis seen. PARASPINAL TISSUES: Small bilateral pleural effusions are suspected. There appear to be opacities in bilateral lung bases, questionable opacity versus artifact in the anterior right upper lobe. Thesefindings are not well evaluated on MRI, and appear progressed compared to CT of 02/27/2022. Paraspinal soft tissues are otherwise unremarkable. No paraspinal fluid collection is seen. FINDINGS BY LEVEL: Multilevel small posterior disc bulges are present between T9 and T12. However, there is no significant central stenosis or neural foraminal narrowing is seen at any level in the thoracic spine. LUMBAR SPINE: ALIGNMENT, VERTEBRAE, MARROW, AND DISCS: Grade 1 anterolisthesis of L4 on L5 is noted, similar to prior. There is no spondylolysis. Alignment is otherwise preserved. Vertebral body heights are preserved. No marrow edema or other concerning marrow signal abnormality is seen. There is multilevel disc desiccation and mild loss of disc space. No abnormal fluid signal is seen within the disc spaces. CONUS: The conus is normal in signal and contour, with normal level of termination at lower L1. No epidural thickening or fluid collection is seen. PARASPINAL TISSUES: Nonspecific edema is seen in the subcutaneous fat of the lower back. There is mild fatty atrophy of the posterior paraspinal musculature. No paraspinal fluid collection or stranding is seen. DETAILED FINDINGS BY LEVEL: T12-L1: Minimal left paracentral protrusion. No significant central stenosis or neural foraminal narrowing. L1-L2: Broad-based disc bulge with superimposed left paracentral disc extrusion with slight superior migration. Minimal central stenosis, including narrowing of the left subarticular recess, but no nerve root compression. No significant neural foraminal narrowing. L2-L3: Broad-based disc bulge with bilateral facet hypertrophy and ligamentum flavum infolding, with trace facet effusions. Mild central stenosis. Mild right and minimal left neural foraminal narrowing. L3-L4: Broad-based disc osteophyte complex with central annular fissure. Bilateral facet hypertrophy and ligamentum flavum infolding with trace facet effusions. Mild central stenosis. Mild to moderate right and mild left neural foraminal narrowing. L4-L5: Grade 1 anterolisthesis with uncovering of the disc and broad-based disc bulge with superimposed cyst central protrusion. Prominent bilateral facet hypertrophy and ligamentum flavum infolding,with bilateral facet effusions. Moderate central stenosis, with crowding of bilateral traversing N9wevet roots. Moderate right and mild to moderate left neural foraminal narrowing. L5-S1: Broad-based disc osteophyte complex and bilateral facet hypertrophy. No significant central stenosis. Mild right and mild to moderate left neural foraminal narrowing. The above findings are similar to the prior lumbar spine MRI. IMPRESSION: 1. No evidence of spinal infection, high-grade stenosis, or other acute abnormality of the cervical, thoracic, or lumbar spine. 2. Small right greater than left pleural effusions and patchy airspace airspace opacities, incompletely visualized but appearing progressed from 02/27/2022. Suggest correlation with dedicated chest imaging. WSN: [id number] Ordering Physician: Sapphire Bernal Dictated By: Joellen Cintron MD Dictated Date/Time: 03/04/22 9:15 am Reviewed By: Joellen Cintron MD Signed By: Joellen Cintron MD Signed Date/Time: 03/04/22 9:15 am Transcribed By: DEIDRE Transcribed Date/Time: 03/04/22 9:04 am MR Thoracic spine WO contrast * [facility] , [facility] S: TRANSCRIBE Joellen Cintron MD: VERIFY Event Display: Result: Authored Date: [id number] MRI Lumbar Spine W/O Contrast, MRI Thoracic Spine W/O Contrast, MRI Cervical Spine W/O Contrast INDICATION: Reason: Back Pain; low back pain in setting of MSSA bacteremia; Clinical Question(s): Other:; ?spinal osteomyelitis, abscess; Special Instructions: contrast allergy; Order Comment: Pleasesee Reference Text for complete list of contraindications Other: TECHNIQUE: MRI of the cervical, thoracic, and lumbar spine was performed without intravenous contrast utilizing sagittal T1, sagittal T2, sagittal STIR, axial T1, and fat saturated axial T2-weighted sequences. COMPARISON: MRI cervical spine, 10/02/2017. MRI thoracic spine, 10/02/2017. MRI lumbar spine, 08/03/2021. FINDINGS: NUMBERING: There is a standard complement of 7 cervical, 12 thoracic, and 5 lumbar vertebral bodies. CERVICAL SPINE: ALIGNMENT, VERTEBRAE, MARROW, AND DISCS: There is straightening of the typical cervical lordosis without significant subluxation. Vertebral body heights are preserved. Multilevel degenerative changesare noted, most prominently Modic 2 change at C5-6 and C6-7. No marrow edema or other concerning marrow signal abnormality is seen. There is multilevel disc desiccation and loss of disc space, including moderate to marked loss of disc height at C2-3, C5-6, and C6-7. No abnormal fluid signal is seenwithin the disc spaces. POSTERIOR FOSSA AND CORD: Visualized posterior fossa is normal. The cervical cord is normal in signal and caliber. No epidural fluid collection or thickening is seen. PARASPINAL TISSUES: Soft tissues of the neck are unremarkable. Major cervical flow voids are present. DETAILED FINDINGS BY LEVEL: C2-C3: Broad-based disc osteophyte complex with bilateral uncovertebral spurring. Minimal central stenosis. No significant neural foraminal narrowing. C3-C4: Mild broad-based disc osteophyte complex with left greater than right uncovertebral spurringand mild facet hypertrophy. Mild central stenosis, greater on the left. Mild right and severe left neural foraminal narrowing. C4-C5: Broad-based disc osteophyte complex with mild endplate spurring along with bilateral facet hypertrophy. No significant central stenosis. Minimal right and no significant left neural foraminal narrowing. C5-C6: Broad-based disc osteophyte complex with bilateral uncovertebral spurring and mild facet hypertrophy. No significant central stenosis. Mild right and moderate to severe left neural foraminal narrowing. C6-C7: Broad-based disc osteophyte complex with bilateral uncovertebral spurring and mild facet hypertrophy. No significant central stenosis. Minimal bilateral neural foraminal narrowing. C7-T1: No significant disc herniation, central stenosis, or neural foraminal narrowing. The above findings are similar to prior cervical spine MRI. THORACIC SPINE: ALIGNMENT, VERTEBRAE, MARROW, AND DISCS: Alignment is normal. Lateral superiorly concavity of T11 and T12 associated with Schmorl's nodes appear similar to prior. Vertebral body heights are otherwisemaintained. Modic 2 endplate changes are present at T10-11 T11-12. No marrow edema or other concerning marrow signal abnormality is seen. There is disc desiccation and mild to moderate loss of disc space at T10-11 and T11-12, and minimal loss of disc space at T1-T2 and T6-7. No abnormal fluid signal seen within the disc spaces. CORD: The thoracic cord is normal in signal and contour. No epidural fluid collection or thickeningis seen. PARASPINAL TISSUES: Small bilateral pleural effusions are suspected. There appear to be opacities in bilateral lung bases, questionable opacity versus artifact in the anterior right upper lobe. Thesefindings are not well evaluated on MRI, and appear progressed compared to CT of 02/27/2022. Paraspinal soft tissues are otherwise unremarkable. No paraspinal fluid collection is seen. FINDINGS BY LEVEL: Multilevel small posterior disc bulges are present between T9 and T12. However, there is no significant central stenosis or neural foraminal narrowing is seen at any level in the thoracic spine. LUMBAR SPINE: ALIGNMENT, VERTEBRAE, MARROW, AND DISCS: Grade 1 anterolisthesis of L4 on L5 is noted, similar to prior. There is no spondylolysis. Alignment is otherwise preserved. Vertebral body heights are preserved. No marrow edema or other concerning marrow signal abnormality is seen. There is multilevel disc desiccation and mild loss of disc space. No abnormal fluid signal is seen within the disc spaces. CONUS: The conus is normal in signal and contour, with normal level of termination at lower L1. No epidural thickening or fluid collection is seen. PARASPINAL TISSUES: Nonspecific edema is seen in the subcutaneous fat of the lower back. There is mild fatty atrophy of the posterior paraspinal musculature. No paraspinal fluid collection or stranding is seen. DETAILED FINDINGS BY LEVEL: T12-L1: Minimal left paracentral protrusion. No significant central stenosis or neural foraminal narrowing. L1-L2: Broad-based disc bulge with superimposed left paracentral disc extrusion with slight superior migration. Minimal central stenosis, including narrowing of the left subarticular recess, but no nerve root compression. No significant neural foraminal narrowing. L2-L3: Broad-based disc bulge with bilateral facet hypertrophy and ligamentum flavum infolding, with trace facet effusions. Mild central stenosis. Mild right and minimal left neural foraminal narrowing. L3-L4: Broad-based disc osteophyte complex with central annular fissure. Bilateral facet hypertrophy and ligamentum flavum infolding with trace facet effusions. Mild central stenosis. Mild to moderate right and mild left neural foraminal narrowing. L4-L5: Grade 1 anterolisthesis with uncovering of the disc and broad-based disc bulge with superimposed cyst central protrusion. Prominent bilateral facet hypertrophy and ligamentum flavum infolding,with bilateral facet effusions. Moderate central stenosis, with crowding of bilateral traversing L6pftct roots. Moderate right and mild to moderate left neural foraminal narrowing. L5-S1: Broad-based disc osteophyte complex and bilateral facet hypertrophy. No significant central stenosis. Mild right and mild to moderate left neural foraminal narrowing. The above findings are similar to the prior lumbar spine MRI. IMPRESSION: 1. No evidence of spinal infection, high-grade stenosis, or other acute abnormality of the cervical, thoracic, or lumbar spine. 2. Small right greater than left pleural effusions and patchy airspace airspace opacities, incompletely visualized but appearing progressed from 02/27/2022. Suggest correlation with dedicated chest imaging. WSN: [id number] Ordering Physician: Sapphire Bernal Dictated By: Joellen Cintron MD Dictated Date/Time: 03/04/22 9:15 am Reviewed By: Joellen Cintron MD Signed By: Joellen Cintron MD Signed Date/Time: 03/04/22 9:15 am Transcribed By: DEIDRE Transcribed Date/Time: 03/04/22 9:04 am MR Lumbar spine WO contrast * [facility] , CIS S: TRANSCRIBE Joellen Cintron MD: VERIFY Event Display: Result: Authored Date: [id number] MRI Lumbar Spine W/O Contrast, MRI Thoracic Spine W/O Contrast, MRI Cervical Spine W/O Contrast INDICATION: Reason: Back Pain; low back pain in setting of MSSA bacteremia; Clinical Question(s): Other:; ?spinal osteomyelitis, abscess; Special Instructions: contrast allergy; Order Comment: Pleasesee Reference Text for complete list of contraindications Other: TECHNIQUE: MRI of the cervical, thoracic, and lumbar spine was performed without intravenous contrast utilizing sagittal T1, sagittal T2, sagittal STIR, axial T1, and fat saturated axial T2-weighted sequences. COMPARISON: MRI cervical spine, 10/02/2017. MRI thoracic spine, 10/02/2017. MRI lumbar spine, 08/03/2021. FINDINGS: NUMBERING: There is a standard complement of 7 cervical, 12 thoracic, and 5 lumbar vertebral bodies. CERVICAL SPINE: ALIGNMENT, VERTEBRAE, MARROW, AND DISCS: There is straightening of the typical cervical lordosis without significant subluxation. Vertebral body heights are preserved. Multilevel degenerative changesare noted, most prominently Modic 2 change at C5-6 and C6-7. No marrow edema or other concerning marrow signal abnormality is seen. There is multilevel disc desiccation and loss of disc space, including moderate to marked loss of disc height at C2-3, C5-6, and C6-7. No abnormal fluid signal is seenwithin the disc spaces. POSTERIOR FOSSA AND CORD: Visualized posterior fossa is normal. The cervical cord is normal in signal and caliber. No epidural fluid collection or thickening is seen. PARASPINAL TISSUES: Soft tissues of the neck are unremarkable. Major cervical flow voids are present. DETAILED FINDINGS BY LEVEL: C2-C3: Broad-based disc osteophyte complex with bilateral uncovertebral spurring. Minimal central stenosis. No significant neural foraminal narrowing. C3-C4: Mild broad-based disc osteophyte complex with left greater than right uncovertebral spurringand mild facet hypertrophy. Mild central stenosis, greater on the left. Mild right and severe left neural foraminal narrowing. C4-C5: Broad-based disc osteophyte complex with mild endplate spurring along with bilateral facet hypertrophy. No significant central stenosis. Minimal right and no significant left neural foraminal narrowing. C5-C6: Broad-based disc osteophyte complex with bilateral uncovertebral spurring and mild facet hypertrophy. No significant central stenosis. Mild right and moderate to severe left neural foraminal narrowing. C6-C7: Broad-based disc osteophyte complex with bilateral uncovertebral spurring and mild facet hypertrophy. No significant central stenosis. Minimal bilateral neural foraminal narrowing. C7-T1: No significant disc herniation, central stenosis, or neural foraminal narrowing. The above findings are similar to prior cervical spine MRI. THORACIC SPINE: ALIGNMENT, VERTEBRAE, MARROW, AND DISCS: Alignment is normal. Lateral superiorly concavity of T11 and T12 associated with Schmorl's nodes appear similar to prior. Vertebral body heights are otherwisemaintained. Modic 2 endplate changes are present at T10-11 T11-12. No marrow edema or other concerning marrow signal abnormality is seen. There is disc desiccation and mild to moderate loss of disc space at T10-11 and T11-12, and minimal loss of disc space at T1-T2 and T6-7. No abnormal fluid signal seen within the disc spaces. CORD: The thoracic cord is normal in signal and contour. No epidural fluid collection or thickeningis seen. PARASPINAL TISSUES: Small bilateral pleural effusions are suspected. There appear to be opacities in bilateral lung bases, questionable opacity versus artifact in the anterior right upper lobe. Thesefindings are not well evaluated on MRI, and appear progressed compared to CT of 02/27/2022. Paraspinal soft tissues are otherwise unremarkable. No paraspinal fluid collection is seen. FINDINGS BY LEVEL: Multilevel small posterior disc bulges are present between T9 and T12. However, there is no significant central stenosis or neural foraminal narrowing is seen at any level in the thoracic spine. LUMBAR SPINE: ALIGNMENT, VERTEBRAE, MARROW, AND DISCS: Grade 1 anterolisthesis of L4 on L5 is noted, similar to prior. There is no spondylolysis. Alignment is otherwise preserved. Vertebral body heights are preserved. No marrow edema or other concerning marrow signal abnormality is seen. There is multilevel disc desiccation and mild loss of disc space. No abnormal fluid signal is seen within the disc spaces. CONUS: The conus is normal in signal and contour, with normal level of termination at lower L1. No epidural thickening or fluid collection is seen. PARASPINAL TISSUES: Nonspecific edema is seen in the subcutaneous fat of the lower back. There is mild fatty atrophy of the posterior paraspinal musculature. No paraspinal fluid collection or stranding is seen. DETAILED FINDINGS BY LEVEL: T12-L1: Minimal left paracentral protrusion. No significant central stenosis or neural foraminal narrowing. L1-L2: Broad-based disc bulge with superimposed left paracentral disc extrusion with slight superior migration. Minimal central stenosis, including narrowing of the left subarticular recess, but no nerve root compression. No significant neural foraminal narrowing. L2-L3: Broad-based disc bulge with bilateral facet hypertrophy and ligamentum flavum infolding, with trace facet effusions. Mild central stenosis. Mild right and minimal left neural foraminal narrowing. L3-L4: Broad-based disc osteophyte complex with central annular fissure. Bilateral facet hypertrophy and ligamentum flavum infolding with trace facet effusions. Mild central stenosis. Mild to moderate right and mild left neural foraminal narrowing. L4-L5: Grade 1 anterolisthesis with uncovering of the disc and broad-based disc bulge with superimposed cyst central protrusion. Prominent bilateral facet hypertrophy and ligamentum flavum infolding,with bilateral facet effusions. Moderate central stenosis, with crowding of bilateral traversing [id number] roots. Moderate right and mild to moderate left neural foraminal narrowing. L5-S1: Broad-based disc osteophyte complex and bilateral facet hypertrophy. No significant central stenosis. Mild right and mild to moderate left neural foraminal narrowing. The above findings are similar to the prior lumbar spine MRI. IMPRESSION: 1. No evidence of spinal infection, high-grade stenosis, or other acute abnormality of the cervical, thoracic, or lumbar spine. 2. Small right greater than left pleural effusions and patchy airspace airspace opacities, incompletely visualized but appearing progressed from 02/27/2022. Suggest correlation with dedicated chest imaging. WSN: [id number] Ordering Physician: Sapphire Bernal Dictated By: Joellen Cintron MD Dictated Date/Time: 03/04/22 9:15 am Reviewed By: Joellen Cintron MD Signed By: Joellen Cintron MD Signed Date/Time: 03/04/22 9:15 am Transcribed By: DEIDRE Transcribed Date/Time: 03/04/22 9:04 am CTA Chest vessels W contrast IV * [facility] , CIS S: TRANSCRIBE Austen Soliz MD: VERIFY Event Display: Result: Authored Date: [id number] EXAMINATION: CT Angio Chest INDICATION: Hx of Present Illness: Pt coming from home. EMS was called for diff breathing, EMS found pt with AMS and pin pupils. Pt c o chest pain with inspiration.; Reason: Other:; PE suspected, Intermediate prob, positive D- dimer,; Clinical Question(s): Pulmonary Embolism; Order Comment: TECHNIQUE: Spiral CTA of the chest was performed after rapid IV contrast administration without cardiac gating, triggered by an BRIDGETTE on the main pulmonary artery. Images are formatted in multiple planes using 2-D multiplanar and 3-D maximum intensity projection. 50 cc of Omnipaque 300 was administered intravenously. Weight-based protocol using automatic tube modulation was used to optimize exposure parameters. CTDIvol Body: 5.83 mGy, DLP Body: 446 mGy*cm. COMPARISONS: None. ANGIOGRAPHIC FINDINGS: No pulmonary embolism to the subsegmental level. Normal caliber pulmonary arteries. No acute aortic abnormality seen on this study performed without cardiac gating. NON-ANGIOGRAPHIC FINDINGS: Polish Compounder View Findings, Lines and Tubes: Right-sided Port-A-Cath terminates in the right atrium. Right-sided PICC terminates at the lower SVC. Trachea and Airways: Patent without evidence of tracheal or endobronchial lesion. Lungs and Pleura: Scattered ill-defined nodular opacities within the right lower lobe measuring up to 0.6 cm on series image 47 series 604), new from prior study. Larger focal airspace opacities are seen within the lingula (image 51 series 604), and left lower lobe medially (image 64 series 604), also new. No effusion or pneumothorax. Mediastinum and jarocho: No mass or hematoma. Prominent mediastinal and hilar lymph nodes and left hilar lymph node (image 60 series 301) measures 0.8 cm. A subcarinal lymph node (image 5 series 301) measures 0.8 cm. No esophageal abnormality. Heart: Heart is normal in size. No pericardial effusion. No coronary arterial calcifications. Chest Wall Soft Tissues: Normal. Diaphragm and upper abdomen: Diaphragm is intact. Prior cholecystectomy. Bones: No acute abnormality. Degenerative changes in the thoracic spine. IMPRESSION: 1. No evidence of pulmonary embolism. 2. Focal airspace opacities in the lingula and left lower lobe as well as additional nodular opacities in the right lower lobe may be infectious or inflammatory, however recommend short-term follow-up CT to ensure resolution. WSN: [id number] Ordering Physician: Isaac Lilly Dictated By: Austen Soliz MD Dictated Date/Time: 02/27/22 3:07 pm Reviewed By: Austen Soliz MD Signed By: Austen Soliz MD Signed Date/Time: 02/27/22 3:07 pm Transcribed By: DEIDRE Transcribed Date/Time: 02/27/22 2:58 pm Patient Care team information Care Team Personnel Name: Lola Belcher RN Position: [facility] RN Member Role: Primary Care Nurse Name: Jose Enrique Saul RN Position: [facility] RN Member Role: Primary Care Nurse Name: Symone Mckinnon RN Position: [facility] RN Member Role: Primary Care Nurse Name: Carolyn Pelaez RN Position: [facility] RN Member Role: Primary Care Nurse Name: Deanna Garcia RN Position: [facility] RN Member Role: Primary Care Nurse Name: Fanny Mixon RN Position: [facility] ED RN W/OE and Tasks Member Role: Primary Care Nurse Name: María Ashford RN Position: [facility] AMB Nurse Member Role: Primary Care Nurse Name: Chanelle Hernandez RN Position: [facility] PCO RN Member Role: Primary Care Nurse Name: Estelle García RN Position: [facility] RN Member Role: Primary Care Nurse Name: Deanne Rangel RN Position: [facility] RN Member Role: Primary Care Nurse Name: Carine Jimenez RN Position: [facility] SN RN Member Role: Primary Care Nurse Name: Jenelle Campo RN Position: [facility] RN Member Role: Primary Care Nurse Name: Keyla Godwin RN Position: [facility] RN Member Role: Primary Care Nurse Name: Yeimi Devine RN Position: [facility] RN Member Role: Primary Care Nurse Name: Pili Gurrola RN Position: [facility] RN Member Role: Primary Care Nurse Name: Mary Yan RN Position: [facility] RN Member Role: Primary Care Nurse Name: Iliana Pop RN Position: [facility] RN Member Role: Primary Care Nurse Name: Alcides Dueñas RN Position: [facility] RN Member Role: Primary Care Nurse Name: Lisa Beatty Position: [facility] Outreach Member Role: Lifetime Consulting Physician Name: Armida Beatty RN Position: [facility] RN Member Role: Primary Care Nurse Name: Roque Villasenor MD Position: [facility] Renal MD Member Role: Lifetime Consulting Physician Address: Address: [address] [place] [address], [address] [facility] [address] Name: Lashon Lovell RN Position: [facility] SN RN Member Role: Primary Care Nurse Name: Kristi Giraldo RN Position: [facility] RN Supv Member Role: Primary Care Nurse Name: Jerrod Casarez RN Position: [facility] RN Member Role: Primary Care Nurse Name: Shane Riley RN Position: [facility] RN Member Role: Primary Care Nurse Name: Isac Plascencia RN Position: [facility] RN Member Role: Primary Care Nurse Name: Rosalva Martin RN Position: [facility] RN Member Role: Primary Care Nurse Name: Sheela Matt RN Position: [facility] RN Member Role: Primary Care Nurse Name: Armida Ochoa RN Position: [facility] RN Member Role: Primary Care Nurse Name: Deonna Murillo RN Position: [facility] RN Member Role: Primary Care Nurse Name: Felipa Diehl RN Position: [facility] HBO Wound Member Role: Primary Care Nurse Name: Evelin Powell RN Position: [facility] AMB Nurse Member Role: Primary Care Nurse Name: Deonna Pendleton RN Position: [facility] RN Member Role: Primary Care Nurse Name: Pili Kaba RN Position: [facility] RN Member Role: Primary Care Nurse Name: Alejandro Yanes RN Position: [facility] RN Member Role: Primary Care Nurse Name: Stacey Díaz RN Position: [facility] SN RN Member Role: Primary Care Nurse Name: Jac Reese RN Position: [facility] RN Member Role: Primary Care Nurse Name: Celestine Schwartz RN Position: [facility] RN Member Role: Primary Care Nurse Name: Neeta Carpenter RN Position: [facility] RN Member Role: Primary Care Nurse Name: Susie Estrada RN Position: [facility] RN Member Role: Primary Care Nurse Name: Inna Cantor RN Position: [facility] RN Member Role: Primary Care Nurse Name: Chaparrita Pizano DO Position: [facility] Physician (General Medicine) Member Role: PCP Address: Address: [address] [place] [address] [facility] [place], [place] [address] Name: Ning Rolon RN Position: [facility] RN Member Role: Primary Care Nurse Name: Rubi Carrasco RN Position: [facility] SN RN Member Role: Primary Care Nurse Name: Lauryn Holden RN Position: [facility] RN Member Role: Primary Care Nurse Name: Shen Silvestre RN Position: [facility] RN Member Role: Primary Care Nurse Name: Jones Cervantes RN Position: [facility] RN Member Role: Primary Care Nurse Name: Olivia Caputo RN Position: [facility] RN Member Role: Primary Care Nurse Name: Brooklyn Jim RN Position: [facility] RN Member Role: Primary Care Nurse Name: Kimberly Santoro RN Position: [facility] RN Member Role: Primary Care Nurse Name: Haley Diamond RN Position: [facility] RN Member Role: Primary Care Nurse Name: Ashlye Meléndez NP Position: [facility] PCO Associate Professional Member Role: Primary Care Nurse Address: Address: [address] [place] [address] 3rd floor [facility] [place], [place] [address] Name: Siomara Patricia RN Position: [facility] PCO RN Member Role: Primary Care Nurse Name: Neeta Painter RN Position: [facility] RN Member Role: Primary Care Nurse Name: Edith Drummond RN Position: [facility] RN Member Role: Primary Care Nurse Name: Bailey Espinal RN Position: [facility] AMB Nurse Member Role: Primary Care Nurse Name: Brooklyn Ramsey RN Position: [facility] RN Member Role: Primary Care Nurse Name: Keyla Bright RN Position: [facility] RN Member Role: Primary Care Nurse Name: Beverley Tatum RN Position: [facility] RN Member Role: Primary Care Nurse Name: Mainor Devries RN Position: [facility] RN Member Role: Primary Care Nurse Name: Yarely Richards RN Position: [facility] [employer]ic Member Role: Primary Care Nurse Name: Oralia Massey RN Position: [facility] RN Member Role: Primary Care Nurse Name: Cassie Villanueva RN Position: [facility] RN Member Role: Primary Care Nurse Name: Taiwo Mcgregor RN Position: [facility] RN Member Role: Primary Care Nurse Name: Cally Funes RN Position: [facility] SN RN Member Role: Primary Care Nurse Name: Marina Osorio Position: [facility] RN Member Role: Primary Care Nurse Name: Lisa Blanton RN Position: [facility] [employer] Member Role: Primary Care Nurse Name: Danica Stuart RN Position: [facility] AMB Nurse Member Role: Primary Care Nurse Name: Virginia Bacon RN Position: [facility] RN Member Role: Primary Care Nurse Name: Shruthi Ray RN Position: [facility] RN Member Role: Primary Care Nurse Name: Abbe Choe RN Position: [facility] RN Supv Member Role: Primary Care Nurse Name: Farideh Cat LPN Position: [facility] RN Member Role: Primary Care Nurse Name: Janis Morris RN Position: [facility] [employer] Member Role: Primary Care Nurse Name: Darrian Chang RN Position: [facility] [employer] Member Role: Primary Care Nurse Name: Josef Woods RN Position: [facility] RN Member Role: Primary Care Nurse Name: Siomara Raphael Position: [facility] RN Member Role: Primary Care Nurse Name: Jerry Mcneill RN Position: [facility] RN Member Role: Primary Care Nurse Name: *[facility] Attending Position: [facility] ED Medicine MD Name: Jackie Morales RN Position: [facility] ED RN W/OE and Tasks Member Role: Patient Care Provider Name: Radha Talamantes Position: [facility] ED OA Charge Member Role: ED Associate Name: Heena Walker Position: [facility] ED TA [facility] Member Role: Patient Care Provider Care Team Related Persons Name: IVAN VILLASENOR Address: [place] [address] Name: REYNALDO KAUR Address: [address] [place] [address] Name: EMMA SERRANO Address: home [address] [address] Name: TUYET MATA Address: [address] [place] [address] Name: FARIDEH POPE Address: [place] [address]
--- OUTSIDE RECORDS SUMMARY | 2022-08-31 01:08 | XMS_ITS | Continuity of Care Document ---
Author Name Unknown Organization [facility] Address Unknown Care Team Providers Care Community Administrator Name Role Phone Chaparrita Pizano DO Primary Care Physician ( [phone] [place] [facility] [place]): [place] - 09/04/21 [facility] Attending Physician: Sarah Franco MD [...] to receive vaccine 2Admin Note: manufactured by [employer] Medications albuterol 0.042% inhalation solution 3 [...] EC Tablet Start Date: 10/04/18 Status: Ordered Insulin Glargine Inj 0.35 mL [...] EDT, 08/31/20 13:21:00 EDT, Syrup, [facility]/pharmacy #[id number], Partial fill upon patient [...] 0 Refills, Maintenance, 04/02/20 9:29:00 EST, Tablet, [facility] 3, Partial fill upon patient [...] Soft Stop, 06/26/21 7:59:00 EDT, Tablet, [facility]/pharmacy #[id number], Partial fill upon patient [...] 08/30/17 8:21:42 EDT, Route to Pharmacy Electronically, [id number], [facility]/pharmacy #[id number] Start Date: 08/30/17 Status: Ordered Tums 500 mg oral tablet, chewable 500 mg, 1, tablet, Chew, Every 4 hours, PRN, # 180 tablet, Refills 0, Tot. Refills 0, Maintenance, Dyspepsia, 06/21/18 11:05:15 EDT, Route to Pharmacy Electronically, [id number], [facility] Start Date: 06/21/18 Status: [...] WITH PRO LONGED DEPRESSIVE REACTION(Confirmed) 02/03/07 Active [facility] Emeral d Team Senior Level Patient(Confirmed) Active ASTHMA(Confirmed) 02/03/07 Active Bipolar disorder(Confirmed) Active Morbid obesity with BMI of 5 0.0-59.9, adult(Confirmed) Active Status post total hysterecto my 03/22/06, pathology was benign. Unless there is a history of HSELLY III or cancer, Pap smears are no [...] oldest [Reference Range]: 1 Height 155 cm (08/28/21 12:22 PM) Weight 124.7 kg (08/28/21 12:22 PM) Pulse Rate [55-90 bpm] 69 bpm (08/28/21 12:22 PM) Body Mass Index [18.5-24.99] 51.9 *>HHI* (08/28/21 12:22 PM) Blood Pressure [90-138/55-84 mm Hg] 175/ 107mm Hg *H* (08/28/21 12:22 PM) Respiratory Rate [16-30 br/min] 17 br/mi n (08/28/21 12:22 PM) Temperature [96.8-100.4 DegF] 98.9 DegF (08/28/21 12:22 PM) Temperature Route Temporal (08/28/21 12:22 PM) Social History Social History Type Response Smoking Status Former smoker; Other : quit 04/2015; entered on: 01/30/16 Sex
--- OUTSIDE RECORDS SUMMARY | 2022-08-31 01:08 | XMS_ITS | Continuity of Care Document ---
Author Name Unknown Organization [facility] ter Address [address] [place] [address]- Care Team Providers Care Spindle Tester Name Role Phone Chaparrita Pizano DO Primary Care Physician Encounter [facility] [place] Date(s): 04/04/20 - 04/09/[address] [address]- Encounter Diagnosis Abdominal pain(Discharge Diagnosis) - 04/04/20 Bipolar disorder(Discharge Diagnosis) - 04/04/20 ESSENTIAL HYPERTENSION(Discharge Diagnosis) - 04/04/20 Hyperlipidemia(Discharge Diagnosis) - 04/04/20 Morbid obesity with BMI of 50.0-59.9, adult(Discharge Diagnosis) - 04/04/20 AURELIO (obstructive sleep apnea)(Discharge Diagnosis) - 04/04/20 Small bowel obstruction(Discharge Diagnosis) - 04/04/20 AP (abdominal pain)(Final) - 04/05/20 Discharge Disposition: A-D/C Home Attending Physician: Alina Rodgers MD Admitting Physician: Alina Rodgers MD Referring Physician: Not on Staff, Referring [...] Acute05/02/20 9:28:00 EDT, 04/02/20 9:28:00 EST, Tablet, [facility], Partial fill upon patient [...] 05/07/20 0:00:00 EDT, 04/09/20 6:53:00 EST, Liquid[facility], Partial fill upon patient [...] 04/16/20 9:28:00 EST, 04/02/20 9:28:00 EST, Injection[facility], Partial fill upon patient request if the prescription is for a schedule II opioid d... Start Date: 04/02/20 Stop Date: 04/16/20 Status: Ordered insulin glargine 100 units/mL subcutaneous solution = 25 units, Subcutaneous Injection, Daily at bedtime, # 12 mL, 0 Refills, Maintenance, 04/03/20 13:23:00 EST, Solution, [facility]/pharmacy #[id number], Partial fill upon patient request if the prescription is for a schedule II opioid drug., 154.94, cm, 04/03/20 1... Start Date: 04/03/20 Status: Ordered losartan 50 mg oral tablet 50 mg, 1, tablet, By Mouth, Daily in AM, # 30 tablet, Refills 0, Maintenance, 10/04/18 9:33:08 EDT Start Date: 10/04/18 Status: Ordered losartan 50 mg oral tablet 50 mg, Tablet, By Mouth, 04/09/20 9:00:00 EST Start Date: 04/09/20 Stop Date: 04/09/20 Status: Completed morphine 10 mg/5 mL oral solution 15 mL = 30 mg, By Mouth, Every 6 hours, PRN for pain, # 420 mL, 0 Refills, Acute 04/16/20 0:00:00 EST, 04/09/20 8:17:00 EST, Solution, [facility], Partial fill upon patient request if the prescription is for a schedule II opioid drug., 1... Start Date: 04/09/20 Stop Date: 04/16/20 Status: Ordered MorPHINE REGULAR STRENGTH 2 mg/mL Liquid 30 mg, Solution, By Mouth, Every 4 hours, PRN for Pain , Severe, Routine, 04/07/20 12:24:00 EST Start Date: 04/07/20 Stop Date: 04/09/20 Status: Discontinued naloxone 4 mg/0.1 mL nasal spray = 4 mg, Nares, Both, Once, # 2 each, 0 Refills, Soft Stop, 04/09/20 13:16:00 EST, [facility], Partial fill upon patient [...] 0 Refills, Maintenance, 04/02/20 9:29:00 EST, Tablet, [facility], Partial fill upon patient request if the prescription is for a schedule II opioid drug., 154.94, cm, 0... Start Date: 04/02/20 Status: Ordered OxyCONTIN 10 mg oral tablet, extended release 10 mg, 1, tablet, By Mouth, Every 12 hours, # 60 tablet, Refills 0, Tot. Refills 0, Maintenance, 04/02/20 9:32:00 EST, Route to Pharmacy Electronically, [facility], Partial fill upon patient request if the prescription is for a schedule... Start Date: 04/02/20 Status: Ordered OxyCONTIN 10 mg oral tablet, extended release 10 mg, ER Tablet, By Mouth, 04/09/20 12:00:00 EST Start Date: 04/09/20 Stop Date: 04/09/20 Status: Completed propranolol 120 mg oral capsule, [...] Acute 04/30/20 0:00:00 EDT, 04/02/20 9:33:00 EST, [facility], Partial fill upon patient request if [...] 08/30/17 8:21:42 EDT, Route to Pharmacy Electronically, [id number], [facility]/pharmacy #[id number] Start Date: 08/30/17 Status: Ordered Tums 500 mg oral tablet, chewable 500 mg, 1, tablet, Chew, Every 4 hours, PRN, # 180 tablet, Refills 0, Tot. Refills 0, Maintenance, Dyspepsia, 06/21/18 11:05:15 EDT, Route to Pharmacy Electronically, [id number], [facility] Start Date: 06/21/18 Status: [...] WITH PRO LONGED DEPRESSIVE REACTION(Confirmed) 02/03/07 Active [facility] Emeral d Team Senior Level [...] Diagnosis Diagnosis Type Effective Dates Health Status Clinical Service Informant Abdominal pain Discharge Diagnosis 04/04/20 Bipolar disorder Discharge Diagnosis 04/04/20 ESSENTIAL HYPERTENSION Discharge Diagnosis 04/04/20 Hyperlipidemia Discharge Diagnosis 04/04/20 Morbid obesity with BMI of 50.0-59.9, adult Discharge Diagnosis 04/04/20 AURELIO (obstructive sleep apnea) Discharge Diagnosis 04/04/20 Small bowel obstruction Discharge Diagnosis 04/04/20 Results Radiology Reports * Exam Date Time Procedure Performing Provider Status 04/04/20 3:20 PM Abdomen Comp Inc Dec ub and/or Erect Sarah Koehler; Esther (Verified) Notes: (Abdomen Comp Inc Decub and/or Erect) Reason For Exam: Distention RESULT: Abdomen Comp Inc Decub and/or Erect Abdomen AP supine and left side down decubitus views INDICATION/CLINICAL QUESTION: Abdominal pain. Postoperative bowel obstruction after excision complex left ovarian mass. Awaiting return of bowel function. COMPARISON: Most recent 04/02/2020 FINDINGS: Persistently dilated small bowel in the central abdomen. The decubitus view shows multiple air-fluid levels. The oral contrast has passed. No pneumoperitoneum. Clear lung bases. There are 2 catheters in the right atrium. No acute bone findings. IMPRESSION: Persistent dilated loops with air-fluid levels. No evidence of perforation. Oral contrast has passed. WSN: [id number] Ordering Physician: Claribel Ahn Dictated By: Jimbo Hopson MD Dictated Date/Time: 04/04/20 3:49 pm Reviewed By: Jimbo Hopson MD Signed By: Jimbo Hopson MD Signed Date/Time: 04/04/20 3:49 pm Transcribed By: DEIDRE Transcribed Date/Time: 04/04/20 3:37 pm Vital Signs Most recent to oldest [Reference Range]: 1 2 3 Height 154 cm (04/09/20 7:55 AM) 154 cm (04/08/20 11:33 PM) 154 cm (04/08/20 7:53 PM) Weight 128.5 kg (04/09/20 6:25 AM) 129.75 kg (04/08/20 6:24 AM) 133.25 kg (04/05/20 7:25 AM) Oxygen Saturation [94-100 %] 96 % (04/09/20 7:55 AM) 95 % (04/08/20 11:33 PM) 94 % (04/08/20 7:53 PM) Pulse Rate [55-90 bpm] 92 bpm *H* (04/09/20 7:55 AM) 109 bpm *H* (04/08/20 11:33 PM) 101 bpm *H* (04/08/20 7:53 PM) Body Mass Index [18.5-24.99] 56.04 *>HHI* (04/04/20 6:55 PM) Blood Pressure [90-138/55-84 mm Hg] 113/63mm Hg (04/09/20 8:49 AM) 134/63mm Hg (04/09/20 7:55 AM) 126/84mm Hg (04/08/20 11:33 PM) Respiratory Rate [16-30 br/min] 18 br/min (04/09/20 12:45 PM) 18 br/min (04/09/20 8:49 AM) 19 br/min (04/09/20 7:55 AM) Temperature [96.8-100.4 DegF] 98.2 DegF (04/09/20 7:55 AM) 97.9 DegF (04/08/20 11:33 PM) 98.6 DegF (04/08/20 7:53 PM) Liters per Minute 0 L/min (04/08/20 1:16 PM) Mode of Delivery (Oxygen) Room air (04/09/20 7:55 AM) Room air (04/08/20 11:33 PM) Room air (04/08/20 7:53 PM) Blood pressure sites Arm, left (04/08/20 11:33 PM) Arm, left (04/08/20 7:53 PM) Arm, left (04/08/20 3:14 PM) Temperature Route Oral (04/09/20 7:55 AM) Oral (04/08/20 11:33 PM) Oral (04/08/20 7:53 PM) Dry Weight 132.9 kg (04/04/20 6:55 PM) Weight Obtained Via Standing scale (04/09/20 6:25 AM) Standing scale (04/08/20 6:24 AM) Standing scale (04/05/20 7:25 AM) Social History Social History Type Response Smoking Status Former smoker; Other : quit 04/2015; entered on: 01/30/16 Sex Female
--- OUTSIDE RECORDS SUMMARY | 2022-08-31 01:08 | XMS_ITS | Continuity of Care Document ---
Author Name Unknown Organization [facility] ter Address [address] [place] [address]- Care Team Providers Care Stained Glass Window Designer Name Role Phone Jerica DOChaparrita Primary Care Physician Encounter [facility] [place] Date(s): 04/20/21 - 04/20/[address] [address]- Discharge Disposition: A-D/C Home Attending Physician: Edilberto Brewer MD Admitting Physician: Edilberto Brewer MD Referring Physician: Not on Staff, Referring [...] vomitng Active Compazine shortness of breath Active Tylenol [...] to receive vaccine 2Admin Note: manufactured by [employer] Medications albuterol 0.042% inhalation solution 3 [...] 1 mg, Injection, IV Push Slowly, Every 15 minutes for 3 doses/times, PRN for Pain , Moderate, and SBP greater than 100, STAT, 04/20/21 18:28:00 EST, Stop date Limited # of times Start Date: 04/20/21 Status: Ordered Imitrex 50 mg oral tablet 1 tablet = 50 mg, By Mouth, Daily, PRN for migraine headache, may repeat dose after 2 hours up to amaximum of 2, # 18 tablet, 0 Refills, Acute 08/31/21 13:21:00 EDT, 08/31/20 13:21:00 EDT, Tablet, [facility]/pharmacy #[id number], Partial fill upon patient request... Start [...] Refills, Maintenance, 04/02/20 9:29:00 EST, Tablet, [facility], Partial fill upon [...] 08/30/17 8:21:42 EDT, Route to Pharmacy Electronically, [id number], [facility]/pharmacy #[id number] Start Date: 08/30/17 Status: Ordered Tums 500 mg oral tablet, chewable 500 mg, 1, tablet, Chew, Every 4 hours, PRN, # 180 tablet, Refills 0, Tot. Refills 0, Maintenance, Dyspepsia, 06/21/18 11:05:15 EDT, Route to Pharmacy Electronically, [id number], [facility] Start Date: [...] WITH PRO LONGED DEPRESSIVE REACTION(Confirmed) 02/03/07 Active [facility] Emeral d Team Senior Level [...] 1 2 3 Oxygen Saturation [94-100 %] 100 % (04/20/21 8:53 PM) 100 % (04/20/21 5:36 PM) 96 % (04/20/21 1:45 PM) Pulse Rate [55-90 bpm] 86 bpm (04/20/21 8:53 PM) 78 bpm (04/20/21 5:36 PM) 73 bpm (04/20/21 1:45 PM) Blood Pressure [90-138/55-84 mm Hg] 133/97mm Hg (04/20/21 8:53 PM) 137/98mm Hg (04/20/21 5:36 PM) 140/94mm Hg *H* (04/20/21 1:45 PM) Respiratory Rate [16-30 br/min] 17 br/min (04/20/21 9:54 PM) 18 br/min (04/20/21 8:53 PM) 16 br/min (04/20/21 6:42 PM) Temperature [96.8-100.4 DegF] 98.4 DegF (04/20/21 8:53 PM) 97.9 DegF (04/20/21 5:36 PM) 98.1 DegF (04/20/21 1:45 PM) Mode of Delivery (Oxygen) Room air (04/20/21 8:53 PM) Room air (04/20/21 5:36 PM) Room air (04/20/21 1:45 PM) Blood pressure sites Arm, left (04/20/21 8:53 PM) Arm, left (04/20/21 5:36 PM) Arm, left (04/20/21 1:45 PM) Temperature Route Oral (04/20/21 8:53 PM) Oral (04/20/21 5:36 PM) Oral (04/20/21 1:45 PM) Social History Social History Type Response Smoking Status Former smoker; Other : quit 04/2015; entered on: 01/30/16 Sex
--- OUTSIDE RECORDS SUMMARY | 2022-08-31 01:08 | XMS_ITS | Continuity of Care Document ---
Author Name Unknown Organization [facility] ter Address [address] [place] [address]- Care Team Providers Care Handicrafts Teacher Name Role Phone Chaparrita Pizano DO Primary Care Physician Encounter [place] Date(s): 11/13/21 - 03/15/[address] [address]- Attending Physician: Donald Murphy MD Admitting Physician: [...] to receive vaccine 2Admin Note: manufactured by [employer] Medications albuterol 0.042% inhalation solution 3 [...] Refills, Maintenance, 04/02/20 9:29:00 EST, [facility], Partial fill upon patient [...] EST, Route to Pharmacy Electronically, [facility], Partial fill uponpatient request [...] 06/21/18 11:05:15 EDT, Route to Pharmacy Electronically, [id number], [facility] 3 Start Date: 06/21/18 Status: [...] WITH PROLONGED DEPRESSIVE REACTION Confirmed 02/03/07 Active [facility] Team Senior Level Patient Confirmed Active ASTHMA [...] Team Personnel Name: Lola Belcher RN Position: [facility] RN Member Role: Primary Care Nurse Name: Jose Enrique Saul RN Position: [facility] RN Member Role: Primary Care Nurse Name: Symone Mckinnon RN Position: [facility] RN Member Role: Primary Care Nurse Name: Carolyn Pelaez RN Position: [facility] RN Member Role: Primary Care Nurse Name: Deanna Garcia RN Position: [facility] RN Member Role: Primary Care Nurse Name: Fanny Mixon RN Position: [facility] ED RN W/OE and Tasks Member Role: Primary Care Nurse Name: María Ashford RN Position: [facility] AMB Nurse Member Role: Primary Care Nurse Name: Chanelle Hernandez RN Position: [facility] PCO RN Member Role: Primary Care Nurse Name: Estelle García RN Position: [facility] RN Member Role: Primary Care Nurse Name: Deanne Rangel RN Position: [facility] RN Member Role: Primary Care Nurse Name: Carine Jimenez RN Position: [facility] SN RN Member Role: Primary Care Nurse Name: Jenelle Campo RN Position: [facility] RN Member Role: Primary Care Nurse Name: Keyla Godwin RN Position: [facility] RN Member Role: Primary Care Nurse Name: Yeimi Devine RN Position: [facility] RN Member Role: Primary Care Nurse Name: Pili Gurrola RN Position: [facility] RN Member Role: Primary Care Nurse Name: Mary Yan RN Position: [facility] RN Member Role: Primary Care Nurse Name: Iliana Pop RN Position: [facility] RN Member Role: Primary Care Nurse Name: Alcides Dueñas RN Position: [facility] RN Member Role: Primary Care Nurse Name: Lisa Beatty Position: [facility] Outreach Member Role: Lifetime Consulting Physician Name: Armida Beatty RN Position: [facility] RN Member Role: Primary Care Nurse Name: Roque Villasenor MD Position: [facility] Renal MD Member Role: Lifetime Consulting Physician Address: Address: [address] [place] [address], [address] [facility] [place], [place] [address] Name: Lashon Lovell RN Position: [facility] SN RN Member Role: Primary Care Nurse Name: Kristi Giraldo RN Position: [facility] RN Supv Member Role: Primary Care Nurse Name: Jerrod Casarez RN Position: [facility] RN Member Role: Primary Care Nurse Name: Shane Riley RN Position: [facility] RN Member Role: Primary Care Nurse Name: Isac Plascencia RN Position: [facility] RN Member Role: Primary Care Nurse Name: Rosalva Martin RN Position: [facility] RN Member Role: Primary Care Nurse Name: Sheela Matt RN Position: [facility] RN Member Role: Primary Care Nurse Name: Armida Ochoa RN Position: [facility] RN Member Role: Primary Care Nurse Name: Deonna Murillo RN Position: [facility] RN Member Role: Primary Care Nurse Name: Felipa Diehl RN Position: [facility] HBO Wound Member Role: Primary Care Nurse Name: Evelin Powell RN Position: [facility] AMB Nurse Member Role: Primary Care Nurse Name: Deonna Pendleton RN Position: [facility] RN Member Role: Primary Care Nurse Name: Pili Kaba RN Position: [facility] RN Member Role: Primary Care Nurse Name: Alejandro Yanes RN Position: [facility] RN Member Role: Primary Care Nurse Name: Stacey Díaz RN Position: [facility] SN RN Member Role: Primary Care Nurse Name: Jac Reese RN Position: [facility] RN Member Role: Primary Care Nurse Name: Celestine Schwartz RN Position: [facility] RN Member Role: Primary Care Nurse Name: Neeta Carpenter RN Position: [facility] RN Member Role: Primary Care Nurse Name: Susie Estrada RN Position: [facility] RN Member Role: Primary Care Nurse Name: Inna Cantor RN Position: [facility] RN Member Role: Primary Care Nurse Name: Chaparrita Pizano DO Position: [facility] Physician (General Medicine) Member Role: PCP Address: Address: [address] [place] [address]- [place] Name: Ning Rolon RN Position: [facility] RN Member Role: Primary Care Nurse Name: Rubi Carrasco RN Position: [facility] SN RN Member Role: Primary Care Nurse Name: Lauryn Holden RN Position: [facility] RN Member Role: Primary Care Nurse Name: Shen Silvestre RN Position: [facility] RN Member Role: Primary Care Nurse Name: Jones Cervantes RN Position: [facility] RN Member Role: Primary Care Nurse Name: Olivia Caputo RN Position: [facility] RN Member Role: Primary Care Nurse Name: Brooklyn Jim RN Position: [facility] RN Member Role: Primary Care Nurse Name: Kimberly Santoro RN Position: [facility] RN Member Role: Primary Care Nurse Name: Haley Diamond RN Position: [facility] RN Member Role: Primary Care Nurse Name: Ashley Meléndez NP Position: [facility] PCO Associate Professional Member Role: Primary Care Nurse Address: Address: [address] [place] [address]- Name: Siomara Patricia RN [facility] RN Member Role: Primary Care Nurse Name: Neeta Painter RN Position: [facility] RN Member Role: Primary Care Nurse Name: Edith Drummond RN Position: [facility] RN Member Role: Primary Care Nurse Name: Bailey Espinal RN Position: [facility] AMB Nurse Member Role: Primary Care Nurse Name: Brooklyn Ramsey RN Position: [facility] RN Member Role: Primary Care Nurse Name: Keyla Bright RN Position: [facility] RN Member Role: Primary Care Nurse Name: Beverley Tatum RN Position: [facility] RN Member Role: Primary Care Nurse Name: Mainor Devries RN Position: [facility] RN Member Role: Primary Care Nurse Name: Yarely Richards RN Position: [facility] Hospital Nylon Winder Member Role: Primary Care Nurse Name: Oralia Massey RN Position: [facility] RN Member Role: Primary Care Nurse Name: Cassie Villanueva RN Position: [facility] RN Member Role: Primary Care Nurse Name: Taiwo Mcgregor RN Position: [facility] RN Member Role: Primary Care Nurse Name: Cally Funes RN Position: [facility] SN RN Member Role: Primary Care Nurse Name: Marina Osorio Position: [facility] RN Member Role: Primary Care Nurse Name: Lisa Blanton RN Position: [facility] Nylon Winder Member Role: Primary Care Nurse Name: Danica Stuart RN Position: [facility] AMB Nurse Member Role: Primary Care Nurse Name: Virginia Bacon RN Position: [facility] RN Member Role: Primary Care Nurse Name: Shruthi Ray RN Position: [facility] RN Member Role: Primary Care Nurse Name: Abbe Choe RN Position: [facility] RN Supv Member Role: Primary Care Nurse Name: Farideh Cat LPN Position: [facility] RN Member Role: Primary Care Nurse Name: Janis Morris RN Position: [facility] Nylon Winder Member Role: Primary Care Nurse Name: Darrian Chang RN Position: [facility] Nylon Winder Member Role: Primary Care Nurse Name: Josef Woods RN Position: [facility] RN Member Role: Primary Care Nurse Name: Siomara Raphael Position: [facility] RN Member Role: Primary Care Nurse Name: Jerry Mcneill RN Position: [facility] RN Member Role: Primary Care Nurse Care Team Related Persons Name: IVAN VILLASENOR Address: [place] [address] Name: REYNALDO KAUR Address: home [address] [place] [address] Name: EMMA SERRANO Address: home [address] [address] Name: PATRICK MATA Address: home [address] [place] [address] Name: FARIDEH POPE Address: [place] [address]
--- OUTSIDE RECORDS SUMMARY | 2022-08-31 01:09 | XMS_ITS | Continuity of Care Document ---
Author Name Unknown Organization [facility] Address [address] [place] [address] D[address] [place] [address]- Care Team Providers Care Book Illustrator Name Role Phone Chaparrita Pizano DO Primary Care Physician ( [phone] Encounter [facility] Date(s): 01/25/22 - 02/24/22 [facility] [address] [place] [address]- Attending Physician: Jamie Gregorio Admitting Physician: AdmtrJamie Referring Physician: Admtr ArJacey Allergies, Adverse Reactions, Alerts Substance Reaction Severity Status doxycycline mouth swelling Active ceftriaxone hives Active iodine topical swelling itching Active melatonin Active Zofran 1 can only be given w/ benadryl hives Active Pepcid vomitng Active penicillin throat swelling Rash Persistent Severe Active famotidine vomiting Active morphine 2, 3, 4 hives Active Tylenol hives Active Adhesive Bandage [...] to receive vaccine 2Admin Note: manufactured by [employer] Medications albuterol 0.042% inhalation solution 3 [...] 09/08/21 13:21:00 EDT, Route to Pharmacy Electronically, [facility], Partial fill upon patient [...] Refills, Maintenance, 04/02/20 9:29:00 EST, Tablet, [facility] 3, Partial fill upon patient request [...] 06/21/18 11:05:15 EDT, Route to Pharmacy Electronically, [id number], [facility] 3 Start Date: 06/21/18 Status: Ordered Vitamin [...] WITH PROLONGED DEPRESSIVE REACTION Confirmed 02/03/[address] [facility] [place] Team Senior Level Patient Confirmed Active ASTHMA [...] Team Personnel Name: Lola Belcher RN Position: [facility] RN Member Role: Primary Care Nurse Name: Jose Enrique Saul RN Position: [facility] RN Member Role: Primary Care Nurse Name: Symone Mckinnon RN Position: [facility] RN Member Role: Primary Care Nurse Name: Carolyn Pelaez RN Position: [facility] RN Member Role: Primary Care Nurse Name: Deanna Garcia RN Position: [facility] RN Member Role: Primary Care Nurse Name: Fanny Mixon RN Position: [facility] ED RN W/OE and Tasks Member Role: Primary Care Nurse Name: María Ahsford RN Position: [facility] AMB Nurse Member Role: Primary Care Nurse Name: Chanelle Hernandez RN Position: [facility] PCO RN Member Role: Primary Care Nurse Name: Estelle García RN Position: [facility] RN Member Role: Primary Care Nurse Name: Deanne Rangel RN Position: [facility] RN Member Role: Primary Care Nurse Name: Carine Jimenez RN Position: [facility] SN RN Member Role: Primary Care Nurse Name: Jenelle Campo RN Position: [facility] RN Member Role: Primary Care Nurse Name: Keyla Godwin RN Position: [facility] RN Member Role: Primary Care Nurse Name: Yeimi Devine RN Position: [facility] RN Member Role: Primary Care Nurse Name: Mary Yan RN Position: [facility] RN Member Role: Primary Care Nurse Name: Iliana Pop RN Position: [facility] RN Member Role: Primary Care Nurse Name: Alcides Dueñas RN Position: [facility] RN Member Role: Primary Care Nurse Name: Lisa Beatty Position: [facility] Outreach Member Role: Lifetime Consulting Physician Name: Armida Beatty RN Position: [facility] RN Member Role: Primary Care Nurse Name: Roque Villasenor MD Position: [facility] Renal MD Member Role: Lifetime Consulting Physician Address: Address: [address] [place] [address], [address] [facility] [address] Name: Lashon Lovell RN Position: [facility] SN RN Member Role: Primary Care Nurse Name: Kristi Giraldo RN Position: [facility] RN Supv Member Role: Primary Care Nurse Name: Jerrod Casarez RN Position: [facility] RN Member Role: Primary Care Nurse Name: Rosalva Martin RN Position: [facility] RN Member Role: Primary Care Nurse Name: Armida Ochoa RN Position: [facility] RN Member Role: Primary Care Nurse Name: Deonna Murillo RN Position: [facility] RN Member Role: Primary Care Nurse Name: Felipa Diehl RN Position: [facility] HBO Wound Member Role: Primary Care Nurse Name: Evelin Powell RN Position: [facility] AMB Nurse Member Role: Primary Care Nurse Name: Deonna Pendleton RN Position: [facility] RN Member Role: Primary Care Nurse Name: Pili Kaba RN Position: [facility] RN Member Role: Primary Care Nurse Name: Alejandro Yanes RN Position: [facility] RN Member Role: Primary Care Nurse Name: Stacey Díaz RN Position: [facility] SN RN Member Role: Primary Care Nurse Name: Jac Reese RN Position: [facility] RN Member Role: Primary Care Nurse Name: Celestine Schwartz RN Position: [facility] RN Member Role: Primary Care Nurse Name: Neeta Carpenter RN Position: [facility] RN Member Role: Primary Care Nurse Name: Susie Estrada RN Position: [facility] RN Member Role: Primary Care Nurse Name: Inna Cantor RN Position: [facility] RN Member Role: Primary Care Nurse Name: Chaparrita Pizano DO Position: [facility] Physician (General Medicine) Member Role: PCP Address: Address: [address] [place] [address]- Name: Ning Rolon RN Position: [facility] RN Member Role: Primary Care Nurse Name: Rubi Carrasco RN Position: [facility] SN RN Member Role: Primary Care Nurse Name: Lauryn Holden RN Position: [facility] RN Member Role: Primary Care Nurse Name: Shen Silvestre RN Position: [facility] RN Member Role: Primary Care Nurse Name: Jones Cervantes RN Position: [facility] RN Member Role: Primary Care Nurse Name: Olivia Caputo RN Position: [facility] RN Member Role: Primary Care Nurse Name: Brooklyn Jim RN Position: [facility] RN Member Role: Primary Care Nurse Name: Kimberly Santoro RN Position: [facility] RN Member Role: Primary Care Nurse Name: Haley Diamond RN Position: [facility] RN Member Role: Primary Care Nurse Name: Ashley Meléndez NP Position: [facility] PCO Associate Professional Member Role: Primary Care Nurse Address: Address: [address] [place] [address]- Name: Siomara Patricia RN Position: [facility] PCO RN Member Role: Primary Care Nurse Name: Neeta Painter RN Position: [facility] RN Member Role: Primary Care Nurse Name: Edith Drummond RN Position: [facility] RN Member Role: Primary Care Nurse Name: Bailey Espinal RN Position: [facility] AMB Nurse Member Role: Primary Care Nurse Name: Brooklyn Ramsey RN Position: [facility] RN Member Role: Primary Care Nurse Name: Keyla Bright RN Position: [facility] RN Member Role: Primary Care Nurse Name: Beverley Tatum RN Position: [facility] RN Member Role: Primary Care Nurse Name: Mainor Devries RN Position: [facility] RN Member Role: Primary Care Nurse Name: Yarely Richards RN Position: [facility] Marble Installer Supervisor Member Role: Primary Care Nurse Name: Oralia Massey RN Position: [facility] RN Member Role: Primary Care Nurse Name: Rich IWLSON pee Position: [facility] RN Member Role: Primary Care Nurse Name: Taiwo Mcgregor RN Position: [facility] RN Member Role: Primary Care Nurse Name: Cally Funes RN Position: [facility] SN RN Member Role: Primary Care Nurse Name: Marina Osorio Position: [facility] RN Member Role: Primary Care Nurse Name: Lisa Blanton RN Position: [facility] Marble Installer Supervisor Member Role: Primary Care Nurse Name: Danica Stuart RN Position: [facility] AMB Nurse Member Role: Primary Care Nurse Name: Shruthi Ray RN Position: [facility] RN Member Role: Primary Care Nurse Name: Abbe Choe RN Position: [facility] RN Supv Member Role: Primary Care Nurse Name: Farideh Cat LPN Position: [facility] RN Member Role: Primary Care Nurse Name: Janis Morris RN Position: [facility] [employer] Installer Supervisor Member Role: Primary Care Nurse Name: Darrian Chang RN Position: [facility] [employer] Installer Supervisor Member Role: Primary Care Nurse Name: Jerry Mcneill RN Position: [facility] RN Member Role: Primary Care Nurse Care Team Related Persons Name: IVAN VILLASENOR Address: [place] [address] Name: REYNALDO KAUR Address: home [address] [place] [address] Name: EMMA SERRANO Address: home [address] [address] Name: PATRICK MATA Address: home [address] [place] [address] Name: FARIDEH POPE Address: [place] [address]
--- OUTSIDE RECORDS SUMMARY | 2022-08-31 01:09 | XMS_ITS | Continuity of Care Document ---
Author Name Unknown Organization [facility] ter Address [address] [place] [address]- Care Team Providers Care Vocational Rehabilitation Teacher Name Role Phone Jerica DOChaparrita Primary Care Physician Encounter [facility] Date(s): 01/09/20 - 05/05/[address] [address] Attending Physician: Isaac Lobo MD Admitting Physician: [...] 1 02/02/07 Given 1Admin Note: manufactured by [employer] Medications albuterol 0.042% inhalation solution [...] 05/07/20 0:00:00 EDT, 04/09/20 6:53:00 EST, Liquid, [facility], Partial fill upon patient [...] 0 Refills, Maintenance, 04/03/20 13:23:00 EST, Solution, [facility] #[id number], Partial fill upon patient request [...] 0 Refills, Soft Stop, 04/09/20 13:16:00 EST, [facility], Partial fill upon patient [...] 0 Refills, Maintenance, 04/02/20 9:29:00 EST, Tablet, [facility], Partial fill upon patient request if the prescription is for a schedule II opioid drug., 154.94, cm, 0... Start Date: 04/02/20 Status: Ordered oxyCODONE 20 mg oral tablet 1 tablet = 20 mg, By Mouth, Every 6 hours, PRN as needed for pain, for 5 days, Patient has 13 tablets at home we will give her another 5 days till she goes to the pain clinic, # 20 tablet, 0 Refills,Acute 05/06/20 9:38:00 EDT, 05/01/20 9:38:00 EDT, T... Start Date: 05/01/20 Stop Date: 05/06/20 Status: Ordered oxyCODONE 20 mg oral tablet, extended release 20 mg, 1, tablet, By Mouth, Every 12 hours, Patient has 8 tablets from before, new prescription for5 days till she goes to the pain clinic, # 10 tablet, Refills 0, Tot. Refills 0, Maintenance, 05/01/20 9:37:00 EDT, Route to Pharmacy Electronically, [email or web address] Start Date: 05/01/20 Stop Date: 05/06/20 Status: [...] 08/30/17 8:21:42 EDT, Route to Pharmacy Electronically, [id number], [facility] #[id number] Start Date: 08/30/17 Status: Ordered Tums 500 mg oral tablet, chewable 500 mg, 1, tablet, Chew, Every 4 hours, PRN, # 180 tablet, Refills 0, Tot. Refills 0, Maintenance, Dyspepsia, 06/21/18 11:05:15 EDT, Route to Pharmacy Electronically, [id number], [facility] Start Date: 06/21/18 Status: Ordered [...] WITH PRO LONGED DEPRESSIVE REACTION(Confirmed) 02/03/07 Active [facility] Emer[facility] d Team Senior Level [...]
--- OUTSIDE RECORDS SUMMARY | 2022-08-31 01:09 | XMS_ITS | Continuity of Care Document ---
Author Name Unknown Organization [facility] Address [address] [place] [address]- Care Team Providers Care Appraisal Analyst Name Role Phone Chaparrita Pizano DO Primary Care Physician ( [phone] Encounter [facility] Date(s): 05/15/20 - 06/14/20 [facility] [address] [place], [place] [address] Allergies, Adverse Reactions, Alerts Substance Reaction [...] 1 02/02/07 Given 1Admin Note: manufactured by [employer] Medications albuterol 0.042% inhalation solution 3 [...] Maintenance, 04/03/20 13:23:00 EST, Solution, [facility]/pharmacy #[id number], Partial fill upon patient request if the [...] Refills, Soft Stop, 04/09/20 13:16:00 EST, [facility], Partial fill upon [...] Refills, Maintenance, 04/02/20 9:29:00 EST, Tablet, [facility], Partial fill upon patient request if the prescription is for a schedule II opioid drug., 154.94, cm, 0... Start Date: 04/02/20 Status: Ordered oxyCODONE 10 mg oral tablet 1 tablet = 10 mg, By Mouth, Every 4 hours, PRN Pain , Severe, # 42 tablet, 0 Refills, Maintenance, 06/12/20 16:41:00 EDT, Tablet, [facility]/pharmacy #[id number], Partial fill upon patient request if the [...] 08/30/17 8:21:42 EDT, Route to Pharmacy Electronically, [id number], [facility]/pharmacy #[id number] Start Date: 08/30/17 Status: Ordered Tums 500 mg oral tablet, chewable 500 mg, 1, tablet, Chew, Every 4 hours, PRN, # 180 tablet, Refills 0, Tot. Refills 0, Maintenance, Dyspepsia, 06/21/18 11:05:15 EDT, Route to Pharmacy Electronically, [id number], [facility] Start Date: 06/21/18 Status: Ordered Vitamin [...] WITH PRO LONGED DEPRESSIVE REACTION(Confirmed) 02/03/07 Active [facility] Emeral d Team Senior Level Patient(Confirmed) [...]
--- OUTSIDE RECORDS SUMMARY | 2022-08-31 01:09 | XMS_ITS | Continuity of Care Document ---
Author Name Unknown Organization [facility] ter Address [address] [place] [address]- Care Team Providers Care Deputy Director Of Public Works Name Role Phone Darryl Pizano DOdavidradha Gupta Primary Care Physician ( [phone] Encounter [facility] Date(s): 11/13/21 - 02/19/[address] [address]- Attending Physician: Donald Murphy MD Admitting Physician: [...] to receive vaccine 2Admin Note: manufactured by [employer] P[employer] Medications albuterol 0.042% inhalation solution 3 [...] 09/08/21 13:21:00 EDT, Route to Pharmacy Electronically, [facility], Partial fill upon patient [...] 0 Refills, Maintenance, 04/02/20 9:29:00 EST, Tablet, [facility] 3, Partial fill upon patient request [...] 06/21/18 11:05:15 EDT, Route to Pharmacy Electronically, [id number], [facility] Start Date: 06/21/18 Status: Ordered Vitamin [...] WITH PROLONGED DEPRESSIVE REACTION Confirmed 02/03/07 Active [place] [facility] [place] Team Senior Level Patient Confirmed Active [...] Team Personnel Name: Lola Belcher RN Position: [facility] RN Member Role: Primary Care Nurse Name: Jose Enrique Saul RN Position: [facility] RN Member Role: Primary Care Nurse Name: Symone Mckinnon RN Position: [facility] RN Member Role: Primary Care Nurse Name: Carolyn Pelaez RN Position: [facility] RN Member Role: Primary Care Nurse Name: Deanna Garcia RN Position: [facility] RN Member Role: Primary Care Nurse Name: Fanny Mixon RN Position: [facility] ED RN W/OE and Tasks Member Role: Primary Care Nurse Name: María Ashford RN Position: [facility] AMB Nurse Member Role: Primary Care Nurse Name: Chanelle Hernandez RN Position: [facility] PCO RN Member Role: Primary Care Nurse Name: Estelle García RN Position: [facility] RN Member Role: Primary Care Nurse Name: Deanne Rangel RN Position: [facility] RN Member Role: Primary Care Nurse Name: Carine Jimenez RN Position: [facility] SN RN Member Role: Primary Care Nurse Name: Jenelle Campo RN Position: [facility] RN Member Role: Primary Care Nurse Name: Keyla Godwin RN Position: [facility] RN Member Role: Primary Care Nurse Name: Yeimi Devine RN Position: [facility] RN Member Role: Primary Care Nurse Name: Mary Yan RN Position: [facility] RN Member Role: Primary Care Nurse Name: Iliana Pop RN Position: [facility] RN Member Role: Primary Care Nurse Name: Alcides Dueñas RN Position: [facility] RN Member Role: Primary Care Nurse Name: Lisa Beatty Position: [facility] Outreach Member Role: Lifetime Consulting Physician Name: Armida Beatty RN Position: [facility] RN Member Role: Primary Care Nurse Name: Roque Villasenor MD Position: [facility] Renal MD Member Role: Lifetime Consulting Physician Address: Address: [address] [place] [address], [address] [facility] [place], [place] [address] Name: Lashon Lovell RN Position: [facility] SN RN Member Role: Primary Care Nurse Name: Kristi Giraldo RN Position: [facility] RN Supv Member Role: Primary Care Nurse Name: Jerrod Casarez RN Position: [facility] RN Member Role: Primary Care Nurse Name: Rosalva Martin RN Position: [facility] RN Member Role: Primary Care Nurse Name: Armida Ochoa RN Position: [facility] RN Member Role: Primary Care Nurse Name: Deonna Murillo RN Position: [facility] RN Member Role: Primary Care Nurse Name: Felipa Diehl RN Position: [facility] HBO Wound Member Role: Primary Care Nurse Name: Evelin Powell RN Position: [facility] AMB Nurse Member Role: Primary Care Nurse Name: Deonna Pendleton RN Position: [facility] RN Member Role: Primary Care Nurse Name: Pili Kaba RN Position: [facility] GAGANDEEP RN W/OE and Tasks Member Role: Primary Care Nurse Name: Alejandro Yanes RN Position: [facility] RN Member Role: Primary Care Nurse Name: Stacey Díaz RN Position: [facility] SN RN Member Role: Primary Care Nurse Name: Jac Reees RN Position: [facility] RN Member Role: Primary Care Nurse Name: Celestine Schwartz RN Position: [facility] RN Member Role: Primary Care Nurse Name: Neeta Carpenter RN Position: [facility] RN Member Role: Primary Care Nurse Name: Susie Estrada RN Position: [facility] RN Member Role: Primary Care Nurse Name: Inna Cantor RN Position: [facility] RN Member Role: Primary Care Nurse Name: Chaparrita Pizano DO Position: [facility] Physician (General Medicine) Member Role: PCP Address: Address: [address] [place] [address]- Name: Ning Rolon RN Position: [facility] RN Member Role: Primary Care Nurse Name: Rubi Carrasco RN Position: [facility] SN RN Member Role: Primary Care Nurse Name: Lauryn Holden RN Position: [facility] RN Member Role: Primary Care Nurse Name: Shen Silvestre RN Position: [facility] RN Member Role: Primary Care Nurse Name: Jones Cervantes RN Position: [facility] RN Member Role: Primary Care Nurse Name: Olivia Caputo RN Position: [facility] RN Member Role: Primary Care Nurse Name: Brooklyn Jim RN Position: [facility] RN Member Role: Primary Care Nurse Name: Kimberly Santoro RN Position: [facility] RN Member Role: Primary Care Nurse Name: Haley Diamond RN Position: [facility] RN Member Role: Primary Care Nurse Name: Ashley Meléndez NP Position: [facility] PCO Associate Professional Member Role: Primary Care Nurse Address: Address: [address] [place] [address]- Name: Siomara Patricia RN [facility] RN Member Role: Primary Care Nurse Name: Neeta Painter RN Position: [facility] RN Member Role: Primary Care Nurse Name: Edith Drummond RN Position: [facility] RN Member Role: Primary Care Nurse Name: Bailey Espinal RN Position: [facility] AMB Nurse Member Role: Primary Care Nurse Name: Brooklyn Ramsey RN Position: [facility] RN Member Role: Primary Care Nurse Name: Keyla Bright RN Position: [facility] RN Member Role: Primary Care Nurse Name: Beverley Tatum RN Position: [facility] RN Member Role: Primary Care Nurse Name: Mainor Devries RN Position: [facility] RN Member Role: Primary Care Nurse Name: Yarely Richards RN Position: [facility] Director Of Student Financial Services Member Role: Primary Care Nurse Name: Oralia Massey RN Position: [facility] RN Member Role: Primary Care Nurse Name: Rich WILSON pee Position: [facility] RN Member Role: Primary Care Nurse Name: Taiwo Mcgregor RN Position: [facility] RN Member Role: Primary Care Nurse Name: Cally Funes RN Position: [facility] SN RN Member Role: Primary Care Nurse Name: Marina Osorio Position: [facility] RN Member Role: Primary Care Nurse Name: Lisa Blanton RN Position: [facility] Director Of Student Financial Services Member Role: Primary Care Nurse Name: Danica Stuart RN Position: [facility] AMB Nurse Member Role: Primary Care Nurse Name: Shruthi Ray RN Position: [facility] RN Member Role: Primary Care Nurse Name: Abbe Choe RN Position: [facility] RN Supv Member Role: Primary Care Nurse Name: Farideh Cat LPN Position: [facility] RN Member Role: Primary Care Nurse Name: Janis Morris RN Position: [facility] Director Of Student Financial Services Member Role: Primary Care Nurse Name: Darrian Chang RN Position: [facility] Director Of Student Financial Services Member Role: Primary Care Nurse Name: Jerry Mcneill RN Position: [facility] RN Member Role: Primary Care Nurse Care Team Related Persons Name: IVAN VILLASENOR Address: [place] [address] Name: REYNALDO AKUR Address: home [address] [place] [address] Name: EMMA SERRANO Address: home [address] [address] Name: PATRICK MATA Address: home [address] [place] [address] Name: FARIDEH POPE Address: [place] [address]
--- OUTSIDE RECORDS SUMMARY | 2022-08-31 01:09 | XMS_ITS | Continuity of Care Document ---
Author Name Unknown Organization [facility] Address [address] [place] [address] [address] [place] [address]- Care Team Providers Care Laboratory Apparatus Glass Grinder Name Role Phone Chaparrita Pizano DO Primary Care Physician Encounter [facility] Date(s): 01/18/22 - 02/17/22 [facility] [address] [place] [address]- Allergies, Adverse Reactions, Alerts Substance Reaction Severity [...] to receive vaccine 2Admin Note: manufactured by [employer] Medications albuterol 0.042% inhalation solution 3 [...] 09/08/21 13:21:00 EDT, Route to Pharmacy Electronically, [facility], Partial fill upon patient [...] 0 Refills, Maintenance, 04/02/20 9:29:00 EST, Tablet, [facility], Partial fill upon patient request [...] 06/21/18 11:05:15 EDT, Route to Pharmacy Electronically, [id number], [facility] Start Date: 06/21/18 Status: [...] WITH PROLONGED DEPRESSIVE REACTION Confirmed 02/03/07 Active [facility] [employer] Team Senior Level Patient Confirmed Active ASTHMA [...] Team Personnel Name: Lola Belcher RN Position: [facility] RN Member Role: Primary Care Nurse Name: Jose Enrique Saul RN Position: [facility] RN Member Role: Primary Care Nurse Name: Symone Mckinnon RN Position: [facility] RN Member Role: Primary Care Nurse Name: Carolyn Pelaez RN Position: [facility] RN Member Role: Primary Care Nurse Name: Deanna Garcia RN Position: [facility] RN Member Role: Primary Care Nurse Name: Fanny Mixon RN Position: [facility] ED RN W/OE and Tasks Member Role: Primary Care Nurse Name: María Ashford RN Position: [facility] AMB Nurse Member Role: Primary Care Nurse Name: Chanelle Hernandez RN Position: [facility] PCO RN Member Role: Primary Care Nurse Name: Estelle García RN Position: [facility] RN Member Role: Primary Care Nurse Name: Deanne Rangel RN Position: [facility] RN Member Role: Primary Care Nurse Name: Carine Jimenez RN Position: [facility] SN RN Member Role: Primary Care Nurse Name: Jenelle Campo RN Position: [facility] RN Member Role: Primary Care Nurse Name: Keyla Godwin RN Position: [facility] RN Member Role: Primary Care Nurse Name: Yeimi Devine RN Position: [facility] RN Member Role: Primary Care Nurse Name: Mary Yan RN Position: [facility] RN Member Role: Primary Care Nurse Name: Iliana Pop RN Position: [facility] RN Member Role: Primary Care Nurse Name: Alcides Dueñas RN Position: [facility] RN Member Role: Primary Care Nurse Name: Lisa Beatty Position: [facility] Outreach Member Role: Lifetime Consulting Physician Name: Armida Beatty RN Position: [facility] RN Member Role: Primary Care Nurse Name: Roque Villasenor MD Position: [facility] Renal MD Member Role: Lifetime Consulting Physician Address: Address: [address] [place] [address], [address] [facility] [address] Name: Lashon Lovell RN Position: [facility] SN RN Member Role: Primary Care Nurse Name: Kristi Giraldo RN Position: [facility] RN Supv Member Role: Primary Care Nurse Name: Jerrod Casarez RN Position: [facility] RN Member Role: Primary Care Nurse Name: Rosalva Martin RN Position: [facility] RN Member Role: Primary Care Nurse Name: Armida Ochoa RN Position: [facility] RN Member Role: Primary Care Nurse Name: Deonna Murillo RN Position: [facility] RN Member Role: Primary Care Nurse Name: Felipa Diehl RN Position: [facility] HBO Wound Member Role: Primary Care Nurse Name: Evelin Powell RN Position: [facility] AMB Nurse Member Role: Primary Care Nurse Name: Deonna Pendleton RN Position: [facility] RN Member Role: Primary Care Nurse Name: Pili Kaba RN Position: [facility] ED RN W/OE and Tasks Member Role: Primary Care Nurse Name: Alejandro Yanes RN Position: [facility] RN Member Role: Primary Care Nurse Name: Stacey Díaz RN Position: [facility] SN RN Member Role: Primary Care Nurse Name: Jac Reese RN Position: [facility] RN Member Role: Primary Care Nurse Name: Celestine Schwartz RN Position: [facility] RN Member Role: Primary Care Nurse Name: Neeta Carpenter RN Position: [facility] RN Member Role: Primary Care Nurse Name: uSsie Estrada RN Position: [facility] RN Member Role: Primary Care Nurse Name: Inna Cantor RN Position: [facility] RN Member Role: Primary Care Nurse Name: Chaparrita Pizano DO Position: [facility] Physician (General Medicine) Member Role: PCP Address: Address: [address] [place] [place] [address]- Name: Ning Rolon RN Position: [facility] RN Member Role: Primary Care Nurse Name: Rubi Carrasco RN Position: [facility] SN RN Member Role: Primary Care Nurse Name: Lauryn Holden RN Position: [facility] RN Member Role: Primary Care Nurse Name: Shen Silvestre RN Position: [facility] RN Member Role: Primary Care Nurse Name: Jones Cervantes RN Position: [facility] RN Member Role: Primary Care Nurse Name: Olivia Caputo RN Position: [facility] RN Member Role: Primary Care Nurse Name: Brooklyn Jim RN Position: [facility] RN Member Role: Primary Care Nurse Name: Kimberly Santoro RN Position: [facility] RN Member Role: Primary Care Nurse Name: Haley Diamond RN Position: [facility] RN Member Role: Primary Care Nurse Name: Ashley Meléndez NP Position: [facility] PCO Associate Professional Member Role: Primary Care Nurse Address: Address: [address] [place] [address]- Name: Siomara Patricia [facility] RN Member Role: Primary Care Nurse Name: Neeta Painter RN Position: [facility] RN Member Role: Primary Care Nurse Name: Edith Drummond RN Position: [facility] RN Member Role: Primary Care Nurse Name: Bailey Espinal RN Position: [facility] AMB Nurse Member Role: Primary Care Nurse Name: Brooklyn Ramsey RN Position: [facility] RN Member Role: Primary Care Nurse Name: Keyla Bright RN Position: [facility] RN Member Role: Primary Care Nurse Name: Beverley Tatum RN Position: [facility] RN Member Role: Primary Care Nurse Name: Mainor Devries RN Position: [facility] RN Member Role: Primary Care Nurse Name: Yarely Richards RN Position: [facility] Hospital Buggy Runner Member Role: Primary Care Nurse Name: Oralia Massey RN Position: [facility] RN Member Role: Primary Care Nurse Name: Cassie Villanueva RN Position: [facility] RN Member Role: Primary Care Nurse Name: Taiwo Mcgregor RN Position: [facility] RN Member Role: Primary Care Nurse Name: Cally Funes RN Position: [facility] RN Member Role: Primary Care Nurse Name: Marina Osorio Position: [facility] RN Member Role: Primary Care Nurse Name: Lisa Blanton RN Position: [facility] Buggy Runner Member Role: Primary Care Nurse Name: Danica Stuart RN Position: [facility] AMB Nurse Member Role: Primary Care Nurse Name: Shruthi Ray RN Position: [facility] RN Member Role: Primary Care Nurse Name: Abbe Choe RN Position: [facility] RN Supv Member Role: Primary Care Nurse Name: Farideh Cat LPN Position: [facility] RN Member Role: Primary Care Nurse Name: Janis Morris RN Position: [facility] Buggy Runner Member Role: Primary Care Nurse Name: Darrian Chang RN Position: [facility] Buggy Runner Member Role: Primary Care Nurse Name: Jerry Mcneill RN Position: [facility] RN Member Role: Primary Care Nurse Care Team Related Persons Name: IVAN VILLASENOR Address: [place] [address] Name: REYNALDO KAUR Address: home [address] [place] [address] Name: EMMA SERRANO Address: home [address] [address] Name: PATRICK MATA Address: home [address] [place] [address] Name: FARIDEH POPE Address: [place] [address]
--- OUTSIDE RECORDS SUMMARY | 2022-08-31 01:09 | XMS_ITS | Continuity of Care Document ---
Author Name Unknown Organization [facility] ter Address [address] [place] [address]- Care Team Providers Care Certified Massage Therapist Name Role Phone Darryl Pizano DOdavidradha Gupta Primary Care Physician ( [phone] Encounter [facility] Date(s): 08/20/21 - 12/28/[address] [address]- Attending Physician: Donald Murphy MD Admitting Physician: [...] to receive vaccine 2Admin Note: manufactured by [employer] Medications albuterol 0.042% inhalation solution 3 [...] 09/08/21 13:21:00 EDT, Route to Pharmacy Electronically, [facility], Partial fill upon patient [...] 04/02/20 9:29:00 EST, Tablet, [facility], Partial fill upon patient request if [...] 06/21/18 11:05:15 EDT, Route to Pharmacy Electronically, [id number], [facility] 3 Start Date: 06/21/18 Status: [...] WITH PROLONGED DEPRESSIVE REACTION Confirmed 02/03/07 Active [facility] [place] Team Senior Level Patient Confirmed Active ASTHMA [...] Team Personnel Name: Lola Belcher RN Position: [facility] RN Member Role: Primary Care Nurse Name: Jose Enrique Saul RN Position: [facility] RN Member Role: Primary Care Nurse Name: Symone Mckinnon RN Position: [facility] RN Member Role: Primary Care Nurse Name: Carolyn Pelaez RN Position: [facility] RN Member Role: Primary Care Nurse Name: Deanna Garcia RN Position: [facility] RN Member Role: Primary Care Nurse Name: Fanny Mixon RN Position: [facility] ED RN W/OE and Tasks Member Role: Primary Care Nurse Name: María Ashford RN Position: [facility] AMB Nurse Member Role: Primary Care Nurse Name: Chanelle Hernandez RN Position: [facility] PCO RN Member Role: Primary Care Nurse Name: Estelle García RN Position: [facility] RN Member Role: Primary Care Nurse Name: Deanne Rangel RN Position: [facility] RN Member Role: Primary Care Nurse Name: Carine Jimenez RN Position: [facility] RN Member Role: Primary Care Nurse Name: Jenelle Campo RN Position: [facility] RN Member Role: Primary Care Nurse Name: Keyla Godwin RN Position: [facility] RN Member Role: Primary Care Nurse Name: Yeimi Devine RN Position: [facility] RN Member Role: Primary Care Nurse Name: Mary Yan RN Position: [facility] RN Member Role: Primary Care Nurse Name: Iliana Pop RN Position: [facility] RN Member Role: Primary Care Nurse Name: Alcides Dueñas RN Position: [facility] RN Member Role: Primary Care Nurse Name: Lisa Beatty Position: [facility] Outreach Member Role: Lifetime Consulting Physician Name: Armida Beatty RN Position: [facility] RN Member Role: Primary Care Nurse Name: Roque Villasenor MD Position: [facility] Renal MD Member Role: Lifetime Consulting Physician Address: Address: [address] [place] [address], [address] [facility] [address] Name: Lashon Lovell RN Position: [facility] SN RN Member Role: Primary Care Nurse Name: Kristi Giraldo RN Position: [facility] RN Supv Member Role: Primary Care Nurse Name: Jerrod Casarez RN Position: [facility] RN Member Role: Primary Care Nurse Name: Rosalva Martin RN Position: [facility] RN Member Role: Primary Care Nurse Name: Armida Ochoa RN Position: [facility] RN Member Role: Primary Care Nurse Name: Deonna Murillo RN Position: [facility] RN Member Role: Primary Care Nurse Name: Felipa Diehl RN Position: [facility] HBO Wound Member Role: Primary Care Nurse Name: Evelin Powell RN Position: [facility] AMB Nurse Member Role: Primary Care Nurse Name: Deonna Pendleton RN Position: [facility] RN Member Role: Primary Care Nurse Name: Pili Kaba RN Position: [facility] RN Member Role: Primary Care Nurse Name: Alejandro Yanes RN Position: [facility] RN Member Role: Primary Care Nurse Name: Stacey Díaz RN Position: [facility] SN RN Member Role: Primary Care Nurse Name: Jac Reese RN Position: [facility] RN Member Role: Primary Care Nurse Name: Celestine Schwartz RN Position: [facility] RN Member Role: Primary Care Nurse Name: Neeta Carpenter RN Position: [facility] RN Member Role: Primary Care Nurse Name: Susie Estrada RN Position: [facility] RN Member Role: Primary Care Nurse Name: Inna Cantor RN Position: [facility] RN Member Role: Primary Care Nurse Name: Chaparrita Pizano DO Position: [facility] Physician (General Medicine) Member Role: PCP Address: Address: [address] [place] [address]- Name: Ning Rolon RN Position: [facility] RN Member Role: Primary Care Nurse Name: Rubi Carrasco RN Position: [facility] SN RN Member Role: Primary Care Nurse Name: Lauryn Holden RN Position: [facility] RN Member Role: Primary Care Nurse Name: Shen Silvestre RN Position: [facility] RN Member Role: Primary Care Nurse Name: Jones Cervantes RN Position: [facility] RN Member Role: Primary Care Nurse Name: Olivia Caputo RN Position: [facility] RN Member Role: Primary Care Nurse Name: Brooklyn Jim RN Position: [facility] RN Member Role: Primary Care Nurse Name: Kimberly Santoro RN Position: [facility] RN Member Role: Primary Care Nurse Name: Haley Diamond RN Position: [facility] RN Member Role: Primary Care Nurse Name: Ashley Meléndez NP Position: [facility] PCO Associate Professional Member Role: Primary Care Nurse Address: Address: [address] [place] [address] 3rd [place] [address]- Name: Siomara Patricia RN Position: [facility] PCO RN Member Role: Primary Care Nurse Name: Neeta Painter RN Position: [facility] RN Member Role: Primary Care Nurse Name: Edith Drummond RN Position: [facility] RN Member Role: Primary Care Nurse Name: Bailey Espinal RN Position: [facility] AMB Nurse Member Role: Primary Care Nurse Name: Brooklyn Ramsey RN Position: [facility] RN Member Role: Primary Care Nurse Name: Keyla Bright RN Position: [facility] RN Member Role: Primary Care Nurse Name: Beverley Tatum RN Position: [facility] RN Member Role: Primary Care Nurse Name: Mainor Devries RN Position: [facility] RN Member Role: Primary Care Nurse Name: Yarely Richards RN Position: [facility] Bridge Builder Member Role: Primary Care Nurse Name: Oralia Massey RN Position: [facility] RN Member Role: Primary Care Nurse Name: Cassie Villanueva RN Position: [facility] RN Member Role: Primary Care Nurse Name: Taiwo Mcgregor RN Position: [facility] RN Member Role: Primary Care Nurse Name: Cally Funes RN Position: [facility] SN RN Member Role: Primary Care Nurse Name: Marina Osorio Position: [facility] RN Member Role: Primary Care Nurse Name: Lisa Blanton RN Position: [facility] Builder Member Role: Primary Care Nurse Name: Danica Stuart RN Position: [facility] AMB Nurse Member Role: Primary Care Nurse Name: Shruthi Ray RN Position: [facility] RN Member Role: Primary Care Nurse Name: Abbe Choe RN Position: [facility] RN Supv Member Role: Primary Care Nurse Name: Farideh Cat LPN Position: [facility] RN Member Role: Primary Care Nurse Name: Janis Morris RN Position: [facility] [employer] Member Role: Primary Care Nurse Name: Darrian Chang RN Position: [facility] Builder Member Role: Primary Care Nurse Name: Jerry Mcneill RN Position: [facility] RN Member Role: Primary Care Nurse Care Team Related Persons Name: IVAN VILLASENOR Address: [place] [address] Name: REYNALDO KAUR Address: home [address] [place] [address] Name: EMMA SERRANO Address: home [address] [address] Name: PATRICK MATA Address: home [address] [place] [address] Name: FARIDEH POPE Address: [place] [address]
--- OUTSIDE RECORDS SUMMARY | 2022-08-31 01:10 | XMS_ITS | Continuity of Care Document ---
Author Name Unknown Organization [facility] ter Address [address] [place] [address]- Care Team Providers Care Nut Tightener Name Role Phone Jerica DOChaparrita Primary Care Physician Encounter [facility] Date(s): 10/14/20 - 03/06/[address] [address] Attending Physician: Donald Murphy MD Admitting Physician: [...] Rash Persistent Severe Active famotidine vomiting Active Reglan severe restless legs Active Seafood [...] to receive vaccine 2Admin Note: manufactured by [employer] Medications albuterol 0.042% inhalation solution 3 [...] EC Tablet Start Date: 10/04/18 Status: Ordered dextromethorphan-guaifenesin 10 mg-100 mg/10 mL oral liquid 10 mL, By Mouth, Every 4 hours, PRN Cough, # 120 mL, 0 Refills, Acute 03/08/21 12:51:00 EST, 02/14/21 12:51:00 EST, Liquid, [id number], Partial fill upon patient request if the prescription is for a schedule II opioid drug., 10 mL By Mouth Kat... Start Date: 02/14/21 Stop Date: 03/08/21 Status: Ordered Imitrex 50 mg oral tablet 1 tablet = 50 mg, By Mouth, Daily, PRN for migraine headache, may repeat dose after 2 hours up to amaximum of 2, # 18 tablet, 0 Refills, Acute 08/31/21 13:21:00 EDT, 08/31/20 13:21:00 EDT, Tablet, [facility]/pharmacy [facility][id number], Partial fill upon patient request... Start [...] 08/31/22 13:22:00 EDT, 08/31/20 13:21:00 EDT, Syrup, [facility]/pharmacy [facility][id number], Partial fill upon patient request [...] 0 Refills, Maintenance, 04/02/20 9:29:00 EST, Tablet, [facility], Partial fill upon patient request if [...] 08/30/17 8:21:42 EDT, Route to Pharmacy Electronically, [id number], [facility][id number] Start Date: 08/30/17 Status: Ordered Tums 500 mg oral tablet, chewable 500 mg, 1, tablet, Chew, Every 4 hours, PRN, # 180 tablet, Refills 0, Tot. Refills 0, Maintenance, Dyspepsia, 06/21/18 11:05:15 EDT, Route to Pharmacy Electronically, [id number], [facility] Start Date: [...] WITH PRO LONGED DEPRESSIVE REACTION(Confirmed) 02/03/07 Active [facility] Emeral d Team Senior Level [...]
--- OUTSIDE RECORDS SUMMARY | 2022-08-31 01:10 | XMS_ITS | Continuity of Care Document ---
Author Name Unknown Organization [facility] Address [address] [place] [address]- Care Team Providers Care Unitizer Name Role Phone Jerica Chaparrita DO Primary Care Physician Encounter [facility] Date(s): 04/15/20 - 05/15/20 [facility] [address] [place], [place] [address] Allergies, Adverse Reactions, Alerts Substance [...] Active Nexium diarrhea, vomitting Active Nicotine Patch aan cardia Active Lyrica Angioedema Active 1per , [...] 1 02/02/07 Given 1Admin Note: manufactured by [employer] Medications albuterol 0.042% inhalation solution 3 [...] 13:23:00 EST, Solution, [facility], Partial fill upon patient request if the [...] 0 Refills, Maintenance, 05/09/20 16:38:00 EDT, Tablet, [facility][id number], Partial fill upon patient request if the [...] 08/30/17 8:21:42 EDT, Route to Pharmacy Electronically, [id number], [facility]acy [facility][id number] Start Date: 08/30/17 Status: Ordered Tums 500 mg oral tablet, chewable 500 mg, 1, tablet, Chew, Every 4 hours, PRN, # 180 tablet, Refills 0, Tot. Refills 0, Maintenance, Dyspepsia, 06/21/18 11:05:15 EDT, Route to Pharmacy Electronically, [id number], [facility] Start Date: 06/21/18 [...] WITH PRO LONGED DEPRESSIVE REACTION(Confirmed) 02/03/07 Active [facility] Emeral d Team Senior Level [...]
--- OUTSIDE RECORDS SUMMARY | 2022-08-31 01:10 | XMS_ITS | Continuity of Care Document ---
Author Name Unknown Organization [facility] ter Address [address] [place] [address]- Care Team Providers Care Repair Electric Motor Assembler Name Role Phone Chaparrita Pizano DO Primary Care Physician Encounter [facility] Date(s): 08/20/21 - 03/12/[address] [address]- Attending Physician: Donald Murphy MD Admitting Physician: [...] itching Active melatonin Active Pepcid vomitng Active Adhesive Bandage skin [...] Status Refusal Reason influenza virus vaccine, inactivated 9/27/22 Give n influenza virus vaccine, inactivated 02/05/21 [...] to receive vaccine 2Admin Note: manufactured by [employer] Medications albuterol 0.042% inhalation solution 3 [...] 03/12/22 12:08:00 EST, Route to Pharmacy Electronically, [facility], Partial fill upon [...] 03/09/23 23:00:00 EST, 03/12/22 12:09:00 EST, Syrup, [facility], Partial fill upon [...] 03/09/23 23:00:00 EST, 03/12/22 12:10:00 EST, Patch, [facility], Partial fill upon [...] tablet, 0 Refills, Maintenance, 04/02/20 9:29:00 EST, [facility], [...] 03/12/22 12:06:00 EST, Route to Pharmacy Electronically, [facility] 3, Partial fill uponpatient request [...] 06/21/18 11:05:15 EDT, Route to Pharmacy Electronically, [id number], [facility] 3 Start Date: 06/21/18 Status: [...] PROLONGED DEPRESSIVE REACTION Confirmed 02/03/07 Active [facility] Team Senior Level Patient Confirmed Active ASTHMA [...] Care Nurse Name: Deanna Garcia RN Position: [facility] RN Member Role: Primary Care Nurse Name: Fanny Mixon RN Position: [facility] ED RN W/OE and Tasks Member Role: Primary Care Nurse Name: María Ashford RN Position: [facility] AMB Nurse Member Role: Primary Care Nurse Name: Chanelle Hernandez RN Position: [facility] PCO RN Member [...] Care Nurse Name: Pili Gurrola RN Position: [facility] RN Member Role: [...] Member Role: Lifetime Consulting Physician Address: Address: [address] [place] [address], [address] [facility] [address] Name: Lashon Lovell RN Position: [facility] [...] Care Nurse Name: Deonna Murillo RN Position: [facility] RN Member Role: [...] Medicine) Member Role: PCP Address: Address: [address] [place] [address]- [place] Name: Ning Rolon RN Position: [facility] RN Member Role: Primary Care Nurse Name: Rubi Carrasco RN Position: [facility] SN RN Member Role: Primary Care Nurse Name: Lauryn Holden RN Position: [facility] RN Member Role: Primary Care Nurse Name: Shen Silvestre RN Position: [facility] RN Member Role: Primary Care Nurse Name: Jones Cervantes RN Position: [facility] RN Member Role: Primary Care Nurse Name: Olivia Caputo RN Position: [facility] RN Member Role: Primary Care Nurse Name: [place] Jim RN Position: [facility] RN Member Role: Primary Care Nurse Name: Kimberly Santoro RN Position: [facility] RN Member Role: Primary Care Nurse Name: Haley Diamond RN Position: [facility] RN Member Role: Primary Care Nurse Name: Ashley Meléndez NP Position: [facility] PCO Associate Professional Member Role: Primary Care Nurse Address: Address: [address] [place] [address]- Name: Siomara Patricia RN [facility] RN Member Role: Primary Care Nurse Name: Neeta Painter RN Position: [facility] RN Member Role: Primary Care Nurse Name: Edith Drummond RN Position: [facility] RN Member Role: [...] Care Nurse Name: Yarely Richards RN Position: [facility] Churner Member Role: Primary Care Nurse Name: Oralia Massey RN Position: [facility] RN Member Role: Primary Care Nurse Name: Cassie Villanueva RN Position: [facility] RN Member Role: Primary Care Nurse Name: Taiwo Mcgregor RN Position: [facility] RN Member Role: Primary Care Nurse Name: Cally Funes RN Position: [facility] SN RN Member Role: Primary Care Nurse Name: Marina Osorio Position: [facility] RN Member Role: Primary Care Nurse Name: Lisa Blanton RN Position: [facility] Churner Member Role: Primary Care Nurse Name: Danica Stuart RN Position: [facility] AMB Nurse Member Role: Primary Care Nurse Name: Virginia Bacon RN Position: [facility] RN Member Role: Primary Care Nurse Name: Shruthi Ray RN Position: [facility] RN Member Role: Primary Care Nurse Name: Abbe Choe RN Position: [facility] RN Supv Member Role: Primary Care Nurse Name: Farideh Cat LPN Position: [facility] RN Member Role: Primary Care Nurse Name: Janis Morris RN Position: [facility] Churner Member Role: Primary Care Nurse Name: Darrian Chang RN Position: [facility] Churner Member Role: Primary Care Nurse Name: Josef Woods RN Position: [facility] RN Member Role: Primary Care Nurse Name: Siomara Raphael Position: [facility] RN Member Role: Primary Care Nurse Name: Jerry Mcneill RN Position: [facility] RN Member Role: Primary Care Nurse Care Team Related Persons Name: IVAN VILLASENOR Address: [place] [address] Name: REYNALDO KAUR Address: home [address] [place] [address] Name: EMMA SERRANO Address: [address] [address] Name: PATRICK MATA Address: home [address] [place] [address] Name: FARIDEH POPE Address: [place] [address]
--- OUTSIDE RECORDS SUMMARY | 2022-08-31 01:10 | XMS_ITS | Continuity of Care Document ---
Author Name Unknown Organization [facility] ter Address [address] [place] [address]- Care Team Providers Care Business School Dean Name Role Phone Chaparrita Pizano DO Primary Care Physician Encounter [facility] Date(s): 11/13/21 - 03/12/[address] [address]- Attending Physician: Donald Murphy MD Admitting Physician: [...] to receive vaccine 2Admin Note: manufactured by [employer] Medications albuterol 0.042% inhalation solution 3 [...] 03/12/22 12:08:00 EST, Route to Pharmacy Electronically, [facility], Partial fill upon patient request [...] 03/09/23 23:00:00 EST, 03/12/22 12:09:00 EST, Syrup, [facility], Partial fill upon patient request [...] 03/09/23 23:00:00 EST, 03/12/22 12:10:00 EST, Patch, [facility], Partial fill upon patient request [...] tablet, 0 Refills, Maintenance, 04/02/20 9:29:00 EST, [facility], Partial fill upon patient request [...] 03/12/22 12:06:00 EST, Route to Pharmacy Electronically, [facility], Partial fill uponpatient request if the [...] 06/21/18 11:05:15 EDT, Route to Pharmacy Electronically, [id number], [facility] 3 Start Date: 06/21/18 Status: Ordered [...] WITH PROLONGED DEPRESSIVE REACTION Confirmed 02/03/07 Active [facility] Team Senior Level Patient Confirmed Active ASTHMA [...] Team Personnel Name: Lola Belcher RN Position: [facility] RN Member Role: Primary Care Nurse Name: Jose Enrique Saul RN Position: [facility] RN Member Role: Primary Care Nurse Name: Symone Mckinnon RN Position: [facility] RN Member Role: Primary Care Nurse Name: Carolyn Pelaez RN Position: [facility] RN Member Role: Primary Care Nurse Name: Deanna Garcia RN Position: [facility] RN Member Role: Primary Care Nurse Name: Fanny Mixon RN Position: [facility] ED RN W/OE and Tasks Member Role: Primary Care Nurse Name: María Ashford RN Position: [facility] AMB Nurse Member Role: Primary Care Nurse Name: Chanelle Hernandez RN Position: [facility] PCO RN Member Role: Primary Care Nurse Name: Estelle García RN Position: [facility] RN Member Role: Primary Care Nurse Name: Deanne Rangel RN Position: [facility] RN Member Role: Primary Care Nurse Name: Carine Jimenez RN Position: [facility] SN RN Member Role: Primary Care Nurse Name: Jenelle Campo RN Position: [facility] RN Member Role: Primary Care Nurse Name: Keyla Godwin RN Position: [facility] RN Member Role: Primary Care Nurse Name: Yeimi Devine RN Position: [facility] RN Member Role: Primary Care Nurse Name: Pili Gurrola RN Position: [facility] RN Member Role: Primary Care Nurse Name: Mary Yan RN Position: [facility] RN Member Role: Primary Care Nurse Name: Iliana Pop RN Position: [facility] RN Member Role: Primary Care Nurse Name: Alcides Dueñas RN Position: [facility] RN Member Role: Primary Care Nurse Name: Lisa Beatty Position: [facility] Outreach Member Role: Lifetime Consulting Physician Name: Armida Beatty RN Position: [facility] RN Member Role: Primary Care Nurse Name: Roque Villasenor MD Position: [facility] Renal MD Member Role: Lifetime Consulting Physician Address: Address: [address] [place] [address], [address] [facility] [place], [place] [address] Name: Lashon Lovell RN Position: [facility] SN RN Member Role: Primary Care Nurse Name: Kristi Giraldo RN Position: [facility] RN Supv Member Role: Primary Care Nurse Name: Jerrod Casarez RN Position: [facility] RN Member Role: Primary Care Nurse Name: Shane Riley RN Position: [facility] RN Member Role: Primary Care Nurse Name: Isac Plascencia RN Position: [facility] RN Member Role: Primary Care Nurse Name: Rosalva Martin RN Position: [facility] RN Member Role: Primary Care Nurse Name: Sheela Matt RN Position: [facility] RN Member Role: Primary Care Nurse Name: Armida Ochoa RN Position: [facility] RN Member Role: Primary Care Nurse Name: Deonna Murillo RN Position: [facility] RN Member Role: Primary Care Nurse Name: Felipa Diehl RN Position: [facility] HBO Wound Member Role: Primary Care Nurse Name: Evelin Powell RN Position: [facility] AMB Nurse Member Role: Primary Care Nurse Name: Deonna Pendleton RN Position: [facility] RN Member Role: Primary Care Nurse Name: Pili Kaba RN Position: [facility] RN Member Role: Primary Care Nurse Name: Alejandro Yanes RN Position: [facility] RN Member Role: Primary Care Nurse Name: Stacey Díaz RN Position: [facility] SN RN Member Role: Primary Care Nurse Name: Jac Reese RN Position: [facility] RN Member Role: Primary Care Nurse Name: Celestine Schwartz RN Position: [facility] RN Member Role: Primary Care Nurse Name: Neeta Carpenter RN Position: [facility] RN Member Role: Primary Care Nurse Name: Susie Estrada RN Position: [facility] RN Member Role: Primary Care Nurse Name: Inna Cantor RN Position: [facility] RN Member Role: Primary Care Nurse Name: Chaparrita Pizano DO Position: [facility] Physician (General Medicine) Member Role: PCP Address: Address: [address] [place] [address]- [place] Name: Ning Rolon RN Position: [facility] RN Member Role: Primary Care Nurse Name: Rubi Carrasco RN Position: [facility] SN RN Member Role: Primary Care Nurse Name: Lauryn Holden RN Position: [facility] RN Member Role: Primary Care Nurse Name: Shen Silvestre RN Position: [facility] RN Member Role: Primary Care Nurse Name: Jones Cervantes RN Position: [facility] RN Member Role: Primary Care Nurse Name: Olivia Caputo RN Position: [facility] RN Member Role: Primary Care Nurse Name: [place] Jim RN Position: [facility] RN Member Role: Primary Care Nurse Name: Kimberly Santoro RN Position: [facility] RN Member Role: Primary Care Nurse Name: Haley Diamond RN Position: [facility] RN Member Role: Primary Care Nurse Name: Ashley Meléndez NP Position: [facility] PCO Associate Professional Member Role: Primary Care Nurse Address: Address: [address] [place] [address]- Name: Siomara Patricia RN Position: [facility] RN Member Role: Primary Care Nurse Name: Neeta Painter RN Position: [facility] RN Member Role: Primary Care Nurse Name: Edith Drummond RN Position: [facility] RN Member Role: Primary Care Nurse Name: Bailey Espinal RN Position: [facility] AMB Nurse Member Role: Primary Care Nurse Name: [place] Ramsey RN Position: [facility] RN Member Role: Primary Care Nurse Name: Keyla Bright RN Position: [facility] RN Member Role: Primary Care Nurse Name: Beverley Tatum RN Position: [facility] RN Member Role: Primary Care Nurse Name: Mainor Devries RN Position: [facility] RN Member Role: Primary Care Nurse Name: Yarely Richards RN Position: [facility] Hospital Orientation & Mobility Specialist Member Role: Primary Care Nurse Name: Oralia Massey RN Position: [facility] RN Member Role: Primary Care Nurse Name: Cassie Villanueva RN Position: [facility] RN Member Role: Primary Care Nurse Name: Taiwo Mcgregor RN Position: [facility] RN Member Role: Primary Care Nurse Name: Cally Funes RN Position: [facility] SN RN Member Role: Primary Care Nurse Name: Marina Osorio Position: [facility] RN Member Role: Primary Care Nurse Name: Lisa Blanton RN Position: [facility] Orientation & Mobility Specialist Member Role: Primary Care Nurse Name: Danica Stuart RN Position: [facility] AMB Nurse Member Role: Primary Care Nurse Name: Virginia Bacon RN Position: [facility] RN Member Role: Primary Care Nurse Name: Shruthi Ray RN Position: [facility] RN Member Role: Primary Care Nurse Name: Abbe Choe RN Position: [facility] RN Supv Member Role: Primary Care Nurse Name: Farideh Cat LPN Position: [facility] RN Member Role: Primary Care Nurse Name: Janis Morris RN Position: [facility] Orientation & Mobility Specialist Member Role: Primary Care Nurse Name: Darrian Chang RN Position: [facility] Orientation & Mobility Specialist Member Role: Primary Care Nurse Name: Josef Woods RN Position: [facility] RN Member Role: Primary Care Nurse Name: Siomara Raphael Position: [facility] RN Member Role: Primary Care Nurse Name: Jerry Mcneill RN Position: [facility] RN Member Role: Primary Care Nurse Care Team Related Persons Name: IVAN VILLASENOR Address: [place] [address] Name: REYNALDO KAUR Address: home [address] [place] [address] Name: EMMA SERRANO Address: [address] [address] Name: PATRICK MATA Address: home [address] [place] [address] Name: FARIDEH POPE Address: [place] [address]
--- OUTSIDE RECORDS SUMMARY | 2022-08-31 01:10 | XMS_ITS | Continuity of Care Document ---
Author Name Unknown Organization [facility] BIOINFORMATICS SPECIALIST Oncolog y Address [address] [place] [address]- Care Team Providers Care National Service Officer Name Role Phone Chaparrita Pizano DO Primary Care Physician Encounter [facility] Date(s): 11/23/19 - 12/23/19 [facility] BIOINFORMATICS SPECIALIST Oncology [address] [place] [address] Allergies, Adverse Reactions, Alerts Substance Reaction Severity [...] 11:42:54 EDT, Aerosol, Route to Pharmacy Electronically, [id number], [id number], Compound Start Date: [...] capsule, 0 Refills, Maintenance, 05/02/19 10:52:00 EDT, [facility][id number], 155.9, cm, 04/26/19 [...] 05/05/18 9:38:51 EDT, Route to Pharmacy Electronically, [id number]... Start Date: 05/05/18 Status: Ordered Insulin Glargine Inj 0.6 mL = 60 units, Subcutaneous Injection, Daily at bedtime, 0 Refills, Maintenance, 08/20/19 18:48:00 EDT, Injection Start Date: 08/20/19 Status: Ordered LORazepam 0.5 mg oral tablet See Instructions, Take 1 tablet by mouth 1 hour prior to biopsy appointment, may repeat x1 if needed, # 2 tablet, 0 Refills, Maintenance, 04/27/19 16:33:00 EDT, [id number], 155.9, cm, 04/26/19 [...] each, 2 Refills, Maintenance, 12/05/19 20:53:00 EDT, [facility], 155, cm, 08/20/19 16:31:00 EDT, [...] Refills 0, Tot. Refills 0, Maintenance,for pain, 12/06/19 12:17:00 EDT, Route to Pharmacy Electronically, [facility]/pharmacy [facility][id number], Partial fillupon patient request, 155, cm, 08/20/19 16:31:00 ED... Start Date: 12/06/19 Status: Ordered potassium chloride 8 mEq (600 [...] 08/30/17 8:21:42 EDT, Route to Pharmacy Electronically, [id number], [facility]/pharmacy #[id number] Start Date: 08/30/17 [...] 06/21/18 11:05:15 EDT, Route to Pharmacy Electronically, [id number], [facility] Start Date: [...] WITH PRO LONGED DEPRESSIVE REACTION(Confirmed) 02/03/07 Active [facility] Emer[facility] d Team Senior Level [...]
--- OUTSIDE RECORDS SUMMARY | 2022-08-31 01:10 | XMS_ITS | Continuity of Care Document ---
Author Name Unknown Organization [facility] ter Address [address] [place] [address]- Care Team Providers Care Propagator Name Role Phone Darryl Pizano DOdavidradha Gupta Primary Care Physician Encounter [facility] Date(s): 08/20/21 - 02/19/[address] [address]- Attending Physician: Donald Murphy MD Admitting Physician: [...] to receive vaccine 2Admin Note: manufactured by [employer] Medications albuterol 0.042% inhalation solution 3 [...] 09/08/21 13:21:00 EDT, Route to Pharmacy Electronically, [facility], Partial [...] 0 Refills, Maintenance, 04/02/20 9:29:00 EST, Tablet, [facility], Partial fill upon patient request if [...] 06/21/18 11:05:15 EDT, Route to Pharmacy Electronically, [id number], [facility] 3 Start Date: 06/21/18 Status: Ordered Vitamin [...] WITH PROLONGED DEPRESSIVE REACTION Confirmed 02/03/07 Active [facility] Team Senior Level Patient Confirmed Active ASTHMA [...] Role: Lifetime Consulting Physician Address: Address: [address] [place] [address], [address] [facility] [place], [place] [address] Name: Lashon Lovell RN Position: [facility] [...] Kaba RN Position: [facility] GAGANDEEP RN W/OE and Tasks [...] Medicine) Member Role: PCP Address: Address: [address] [place] [address]- Name: Ning Rolon RN Position: [facility] [...] Role: Primary Care Nurse Address: Address: [address] [place] [address]- Name: Siomara Patricia RN Position: [facility] RN Member Role: Primary Care Nurse Name: [...] Care Nurse Name: Yarely Richards RN Position: [facility] Swimming Coach Member Role: Primary Care Nurse Name: Oralia [...] Care Nurse Name: Lisa Blanton RN Position: [facility] Swimming Coach Member Role: Primary Care Nurse Name: Danica [...] Care Nurse Name: Janis Morris RN Position: [facility] Swimming Coach Member Role: Primary Care Nurse Name: Darrian Chang RN Position: [facility] Swimming Coach Member Role: Primary Care Nurse Name: Jerry Mcneill RN Position: [facility] RN Member Role: Primary Care Nurse Care Team Related Persons Name: IVAN VILLASENOR Address: [place] [address] Name: REYNALDO KAUR Address: home [address] [place] [address] Name: EMMA SERRANO Address: [address] [address] Name: PATRICK MATA Address: home [address] [place] [address] Name: FARIDEH POPE Address: [place] [address]
--- OUTSIDE RECORDS SUMMARY | 2022-08-31 01:10 | XMS_ITS | Continuity of Care Document ---
Author Name Unknown Organization [facility] Address Adult Weight Managem ent [address] [place] [address]- Care Team Providers Care Deportation Examiner Name Role Phone Chaparrita Pizano DO Primary Care Physician Encounter [facility] Date(s): 05/23/20 - 06/22/20 [facility] Adult Weight Management [address] [place] [address]- Allergies, Adverse Reactions, Alerts Substance Reaction Severity [...] 1 02/02/07 Given 1Admin Note: manufactured by [employer] Medications albuterol 0.042% inhalation solution 3 [...] 04/03/20 13:23:00 EST, Solution, [facility]/pharmacy #[id number], Partial fill upon patient request if the [...] 0 Refills, Soft Stop, 04/09/20 13:16:00 EST, [facility], Partial fill upon patient [...] 04/02/20 9:29:00 EST, Tablet, [facility], Partial fill upon patient request if the prescription is for a schedule II opioid drug., 154.94, cm, 0... Start Date: 04/02/20 Status: Ordered oxyCODONE 10 mg oral tablet See Instructions, 1 tablet By Mouth 5 times per day for 7 days, per pain services recommedations, #35 tablet, 0 Refills, Maintenance, 06/20/20 8:49:00 EDT, Tablet, [facility]/pharmacy #[id number], Partial fill upon patient request if the [...] 08/30/17 8:21:42 EDT, Route to Pharmacy Electronically, [id number], [facility]/pharmacy #[id number] Start Date: 08/30/17 Status: Ordered Tums 500 mg oral tablet, chewable 500 mg, 1, tablet, Chew, Every 4 hours, PRN, # 180 tablet, Refills 0, Tot. Refills 0, Maintenance, Dyspepsia, 06/21/18 11:05:15 EDT, Route to Pharmacy Electronically, [id number], [facility] Start Date: [...] WITH PRO LONGED DEPRESSIVE REACTION(Confirmed) 02/03/07 Active [facility] Emerarcelia d Team Senior Level Patient(Confirmed) Active [...]
--- OUTSIDE RECORDS SUMMARY | 2022-08-31 01:10 | XMS_ITS | Continuity of Care Document ---
Author Name Unknown Organization [facility] ter Address [address] [place] [address]- Care Team Providers Care Field Logistics Coordinator Name Role Phone Chaparrita Pizano DO Primary Care Physician [place] [facility] [place](s): 01/15/20 - 03/15/[address] [address] Attending Physician: Rosenda Hankins MD Admitting Physician: Rosenda Hankins MD Allergies, Adverse Reactions, [...] 05/05/18 9:38:51 EDT, Route to Pharmacy Electronically, [id number]... Start Date: 05/05/18 Status: Ordered Insulin Glargine [...] 03/04/20 8:13:00 EST, Route to Pharmacy Electronically, [facility]/pharmacy #[id number], Partial fill upon patient request, [...] 08/30/17 8:21:42 EDT, Route to Pharmacy Electronically, [id number], [facility]/pharmacy #[id number] Start Date: 08/30/17 Status: [...] 06/21/18 11:05:15 EDT, Route to Pharmacy Electronically, [id number], [facility] Start Date: 06/21/18 Status: Ordered [...] WITH PRO LONGED DEPRESSIVE REACTION(Confirmed) 02/03/07 Active [facility] Emeral d Team Senior Level [...]
--- OUTSIDE RECORDS SUMMARY | 2022-08-31 01:10 | XMS_ITS | Continuity of Care Document ---
Author Name Unknown Organization [facility] ter Address [address] [place] [address]- Care Team Providers Care District Associate Judge Name Role Phone Darryl Pizano DOdavidradha Gupta Primary Care Physician ( [phone] Encounter [facility] Date(s): 08/20/21 - 10/30/[address] [address]- Attending Physician: Donald Murphy MD Admitting Physician: [...] to receive vaccine 2Admin Note: manufactured by [employer] Medications albuterol 0.042% inhalation solution 3 [...] 09/08/21 13:21:00 EDT, Route to Pharmacy Electronically, [facility], Partial [...] 08/31/22 13:22:00 EDT, 08/31/20 13:21:00 EDT, Syrup, [facility]/pharmacy #[id number], [...] 9:29:00 EST, Tablet, [facility], Partial fill upon patient request [...] 06/21/18 11:05:15 EDT, Route to Pharmacy Electronically, [id number], [facility] Start Date: 06/21/18 Status: [...] WITH PRO LONGED DEPRESSIVE REACTION(Confirmed) 02/03/07 Active [facility] Emeral d Team Senior Level [...] Team Personnel Name: Chaparrita Pizano DO Address: [address] [place] [address]
--- OUTSIDE RECORDS SUMMARY | 2022-08-31 01:11 | XMS_ITS | Continuity of Care Document ---
Author Name Unknown Organization [facility] ter Address [address] [place] [address]- Care Team Providers Care Project Hire Name Role Phone Chaparrita Pizano DO Primary Care Physician Encounter [facility] Date(s): 08/20/21 - 01/25/[address] [address]- Attending Physician: Donald Murphy MD Admitting Physician: [...] to receive vaccine 2Admin Note: manufactured by [employer] Medications albuterol 0.042% inhalation solution 3 [...] 09/08/21 13:21:00 EDT, Route to Pharmacy Electronically, [facility] 3, Partial fill [...] 0 Refills, Maintenance, 04/02/20 9:29:00 EST, Tablet, [facility] 3, Partial fill [...] 06/21/18 11:05:15 EDT, Route to Pharmacy Electronically, [id number], [facility] 3 Start Date: [...] WITH PROLONGED DEPRESSIVE REACTION Confirmed 02/03/07 Active [facility] Team Senior Level Patient Confirmed Active [facility] [...] Team Personnel Name: Lola Belcher RN Position: [facility] RN Member Role: Primary Care Nurse Name: Jose Enrique Saul RN Position: [facility] RN Member Role: Primary Care Nurse Name: Symone Mckinnon RN Position: [facility] RN Member Role: Primary Care Nurse Name: Carolyn Pelaez RN Position: [facility] RN Member Role: Primary Care Nurse Name: Deanna Garcia RN Position: [facility] RN Member Role: Primary Care Nurse Name: Fanny Mixon RN Position: [facility] ED RN W/OE and Tasks Member Role: Primary Care Nurse Name: María Ashford RN Position: [facility] AMB Nurse Member Role: Primary Care Nurse Name: Chanelle Hernandez RN Position: [facility] PCO RN Member Role: Primary Care Nurse Name: Estelle García RN Position: [facility] RN Member Role: Primary Care Nurse Name: Deanne Rangel RN Position: [facility] RN Member Role: Primary Care Nurse Name: Carine Jimenez RN Position: [facility] SN RN Member Role: Primary Care Nurse Name: Jenelle Campo RN Position: [facility] RN Member Role: Primary Care Nurse Name: Keyla Godwin RN Position: [facility] RN Member Role: Primary Care Nurse Name: Yeimi Devine RN Position: [facility] RN Member Role: Primary Care Nurse Name: Mary Yan RN Position: [facility] RN Member Role: Primary Care Nurse Name: Iliana Pop RN Position: [facility] RN Member Role: Primary Care Nurse Name: Alcides Dueñas RN Position: [facility] RN Member Role: Primary Care Nurse Name: Lisa Beatty Position: [facility] Outreach Member Role: Lifetime Consulting Physician Name: Armida Beatty RN Position: [facility] RN Member Role: Primary Care Nurse Name: Roque Villasenor MD Position: [facility] Renal MD Member Role: Lifetime Consulting Physician Address: Address: [address] [place] [address], [address] [facility] [address] Name: Lashon Lovell RN Position: [facility] SN RN Member Role: Primary Care Nurse Name: Kristi Giraldo RN Position: [facility] RN Supv Member Role: Primary Care Nurse Name: Jerrod Casarez RN Position: [facility] RN Member Role: Primary Care Nurse Name: Rosalva Martin RN Position: [facility] RN Member Role: Primary Care Nurse Name: Armida Ochoa RN Position: [facility] RN Member Role: Primary Care Nurse Name: Deonna Murillo RN Position: [facility] RN Member Role: Primary Care Nurse Name: Felipa Diehl RN Position: [facility] HBO Wound Member Role: Primary Care Nurse Name: Evelin Powell RN Position: [facility] AMB Nurse Member Role: Primary Care Nurse Name: Deonna Pendleton RN Position: [facility] RN Member Role: Primary Care Nurse Name: Pili Kaba RN Position: [facility] RN Member Role: Primary Care Nurse Name: Alejandro Yanes RN Position: [facility] RN Member Role: Primary Care Nurse Name: Stacey Díaz RN Position: [facility] SN RN Member Role: Primary Care Nurse Name: Jac Reese RN Position: [facility] RN Member Role: Primary Care Nurse Name: Celestine Schwartz RN Position: [facility] RN Member Role: Primary Care Nurse Name: Neeta Carpenter RN Position: [facility] RN Member Role: Primary Care Nurse Name: Susie Estrada RN Position: [facility] RN Member Role: Primary Care Nurse Name: Inna Cantor RN Position: [facility] RN Member Role: Primary Care Nurse Name: Chaparrita Pizano DO Position: [facility] Physician (General Medicine) Member Role: PCP Address: Address: [address] [place] [address]- Name: Ning Rolon RN Position: [facility] RN Member Role: Primary Care Nurse Name: Rubi Carrasco RN Position: [facility] SN RN Member Role: Primary Care Nurse Name: Lauryn Holden RN Position: [facility] RN Member Role: Primary Care Nurse Name: Shen Silvestre RN Position: [facility] RN Member Role: Primary Care Nurse Name: Jones Cervantes RN Position: [facility] RN Member Role: Primary Care Nurse Name: Olivia Caputo RN Position: [facility] RN Member Role: Primary Care Nurse Name: Brooklyn Jim RN Position: [facility] RN Member Role: Primary Care Nurse Name: Kimberly Santoro RN Position: [facility] RN Member Role: Primary Care Nurse Name: Haley Diamond RN Position: [facility] RN Member Role: Primary Care Nurse Name: Ashley Meléndez NP Position: [facility] PCO Associate Professional Member Role: Primary Care Nurse Address: Address: [address] [place] [address]- Name: Siomara Patricia RN Position: [facility] RN Member Role: Primary Care Nurse Name: Neeta Painter RN Position: [facility] RN Member Role: Primary Care Nurse Name: Edith Drummond RN Position: [facility] RN Member Role: Primary Care Nurse Name: Bailey Espinal RN Position: [facility] AMB Nurse Member Role: Primary Care Nurse Name: Brooklyn Ramsey RN Position: [facility] RN Member Role: Primary Care Nurse Name: Keyla Bright RN Position: [facility] RN Member Role: Primary Care Nurse Name: Beverley Tatum RN Position: [facility] RN Member Role: Primary Care Nurse Name: Mainor Devries RN Position: [facility] RN Member Role: Primary Care Nurse Name: Yarely Richards RN Position: [facility] [employer] Control Electronics Operator Member Role: Primary Care Nurse Name: Oralia Massey RN Position: [facility] RN Member Role: Primary Care Nurse Name: Rich WILSON pee Position: [facility] RN Member Role: Primary Care Nurse Name: Taiwo Mcgregor RN Position: [facility] RN Member Role: Primary Care Nurse Name: Cally Funes RN Position: [facility] SN RN Member Role: Primary Care Nurse Name: Marina Osorio Position: [facility] RN Member Role: Primary Care Nurse Name: Lisa Blanton RN Position: [facility] [employer] Operator Member Role: Primary Care Nurse Name: Danica Stuart RN Position: [facility] AMB Nurse Member Role: Primary Care Nurse Name: Shruthi Ray RN Position: [facility] RN Member Role: Primary Care Nurse Name: Abbe Choe RN Position: [facility] RN Supv Member Role: Primary Care Nurse Name: Farideh Cat LPN Position: [facility] RN Member Role: Primary Care Nurse Name: Janis Morris RN Position: [facility] [employer] Operator Member Role: Primary Care Nurse Name: Darrian Chang RN Position: [facility] [employer] Operator Member Role: Primary Care Nurse Name: Jerry Mcneill RN Position: [facility] RN Member Role: Primary Care Nurse Care Team Related Persons Name: IVAN VILLASENOR Address: [place] [address] Name: REYNALDO KAUR Address: home [address] [place] [address] Name: EMMA SERRANO Address: home [address] [address] Name: PATRICK MATA Address: home [address] [place] [address] Name: FARIDEH POPE Address: [place] [address]
--- OUTSIDE RECORDS SUMMARY | 2022-08-31 01:11 | XMS_ITS | Continuity of Care Document ---
Author Name Unknown Organization [facility]NA[facility] Onc[facility] y Address [address] [place] [address]- Care Team Providers Care Deblocker Name Role Phone Jerica Chaparrita DO Primary Care Physician ( [phone] Encounter [facility] Date(s): 06/09/20 - 07/09/20 [facility] MANA[facility] Oncology [address] [place], [place] [address] Allergies, Adverse Reactions, Alerts Substance Reaction Severity [...] Refills, Soft Stop, 06/23/20 10:08:00 EDT, Tablet, [facility]/pharmacy #[id number], Partial fill upon patient request if the prescription is for a schedule II opioid d... Start Date: 06/23/20 Status: Ordered insulin glargine 100 units/mL subcutaneous solution = 25 units, Subcutaneous Injection, Daily at bedtime, # 12 mL, 0 Refills, Maintenance, 04/03/20 13:23:00 EST, Solution, [facility]/pharmacy #[id number], Partial fill upon patient request [...] 0 Refills, Soft Stop, 04/09/20 13:16:00 EST, [facility], Partial fill upon patient [...] Refills, Maintenance, 04/02/20 9:29:00 EST, Tablet, [facility], Partial fill upon patient request if the prescription is for a schedule II opioid drug., 154.94, cm, 0... Start Date: 04/02/20 Status: Ordered oxyCODONE 10 mg oral tablet See Instructions, 1 tablet By Mouth 5 times per day for 7 days, per pain services recommedations, #35 tablet, 0 Refills, Maintenance, 06/20/20 8:49:00 EDT, Tablet, [facility]/pharmacy #[id number], Partial fill upon patient request [...] 08/30/17 8:21:42 EDT, Route to Pharmacy Electronically, [id number], [facility]/pharmacy #[id number] Start Date: 08/30/17 Status: Ordered Tums 500 mg oral tablet, chewable 500 mg, 1, tablet, Chew, Every 4 hours, PRN, # 180 tablet, Refills 0, Tot. Refills 0, Maintenance, Dyspepsia, 06/21/18 11:05:15 EDT, Route to Pharmacy Electronically, [id number], [facility] Start Date: 06/21/18 Status: [...] WITH PRO LONGED DEPRESSIVE REACTION(Confirmed) 02/03/07 Active [facility] Emeral d Team Senior Level [...]
--- OUTSIDE RECORDS SUMMARY | 2022-08-31 01:11 | XMS_ITS | Continuity of Care Document ---
Author Name Unknown Organization [facility] ter Address [address] [place] [address]- Care Team Providers Care Sanitation Laborer Name Role Phone Chaparrita Pizano DO Primary Care Physician ( [phone] Encounter [facility] Date(s): 06/01/21 - 06/04/[address] [address]- Encounter Diagnosis Abdominal pain(Final) - 06/01/21 Discharge Disposition: A-D/C Home Attending Physician: Doyle Smith MD Admitting Physician: Doyle Smith MD Referring Physician: Not on Staff, Referring [...] Status Refusal Reason influenza virus vaccine, inactivated 12/23/21 Give n influenza virus vaccine, inactivated 12/31/19 [...] to receive vaccine 2Admin Note: manufactured by [employer] Medications albuterol 0.042% inhalation solution 3 [...] 08/31/21 13:21:00 EDT, 08/31/20 13:21:00 EDT, Tablet, [facility]/pharmacy #[id number], Partial fill upon patient request... [...] 08/31/22 13:22:00 EDT, 08/31/20 13:21:00 EDT, Syrup, [facility]/pharmacy #[id number], Partial fill [...] Maintenance, 04/02/20 9:29:00 EST, Tablet, [facility], Partial fill upon patient [...] 08/30/17 8:21:42 EDT, Route to Pharmacy Electronically, [id number], [facility]/pharmacy #[id number] Start Date: 08/30/17 Status: Ordered Toradol Inj 15 mg, Injection, IV Push Slowly, 06/04/21 7:00:00 EDT, Stop date 06/04/21 7:00:00 EDT Start Date: 06/04/21 Stop Date: 06/04/21 Status: Completed Tums 500 mg oral tablet, chewable 500 mg, 1, tablet, Chew, Every 4 hours, PRN, # 180 tablet, Refills 0, Tot. Refills 0, Maintenance, Dyspepsia, 06/21/18 11:05:15 EDT, Route to Pharmacy Electronically, [id number], [facility] 3 Start Date: 06/21/18 Status: Ordered Tylenol 325 mg oral capsule 2 capsule = 650 mg, By Mouth, Every 4 hours, PRN as needed for pain, # 60 capsule, 0 Refills, Acute06/14/21 0:00:00 EDT, 04/23/21 16:19:00 EST, Capsule, [facility]/pharmacy #[id number], Partial fill upon patientrequest if the [...] WITH PRO LONGED DEPRESSIVE REACTION(Confirmed) 02/03/07 Active [facility] Emeral d Team Senior Level Patient(Confirmed) [...] Exam Date Time Procedure Performing Provider Status 06/03/21 10:52 AM Abdomen AP Yi Pagan (Verified) Notes: (Abdomen AP) Reason For Exam: Distention RESULT: XR Abdomen AP XR Abdomen AP 1 view INDICATION/CLINICAL QUESTION: Small bowel obstruction on recent CT COMPARISON: 06/01/2021, 06/02/2021 FINDINGS: Decreased small bowel dilatation, with mildly dilated small bowel loops in left hemiabdomen measuring up to 3.4 cm in diameter. No evidence of colonic dilatation. No evidence of pneumoperitoneum on this supine study. Cholecystectomy clips. Left mid abdomen surgical clips. Mild lower lumbar spine degenerative changes. IMPRESSION: Decreased small bowel obstruction. I have personally reviewed the images and I agree with this report. WSN: [id number] Ordering Physician: Ashley Enamorado Dictated By: J Luis Long DO Dictated Date/Time: 06/03/21 3:20 pm Reviewed By: Otis Kelly MD, V Signed By: Otis Kelly MD, V Signed Date/Time: 06/03/21 3:25 pm Transcribed By: DEIDRE Transcribed Date/Time: 06/03/21 2:30 pm * Exam Date Time Procedure Performing Provider Status 06/02/21 8:19 PM XR Abdomen AP Small Bowel W/ contrast Delfina Cuello; Auth (Verified) Notes: (XR Abdomen AP Small Bowel W/ contrast) Reason For Exam: Constipation;Constipation RESULT: XR Abdomen AP Small Bowel with contrast XR Abdomen AP Small Bowel with contrast TECHNIQUE: Supine view of the abdomen and pelvis, 2 images. Reportedly, the patient received water-soluble oral contrast approximately 8 1/2 hours prior to obtaining the images. Reason: Constipation; Clinical Question(s): Obstruction; Special Instructions: 90cc of Omnipaque 12at 11am. COMPARISON: CT, 06/01/2021. FINDINGS: Lines and tubes: None. Gas pattern: Several prominent loops of small bowel centrally with mild fold thickening. Loops of small bowel measure up to 4.7 cm in diameter. Mild contrast accumulation intermixed with stool withinthe right colon. No significant stool seen distally in the colon. No definitive contrast seen within the small bowel. Free air: No evidence of pneumoperitoneum. Soft tissue: No organomegaly. Cholecystectomy clips. Multiple surgical anchors compatible with ventral wall abdominal hernia repair. Calcified phleboliths noted in the soft tissue pelvis. Bones: No acute abnormality. IMPRESSION: Contrast seen within the colon, excluding complete small bowel obstruction. Dilated loops of small bowel proximally, compatible with ileus or low-grade partial small bowel obstruction. WSN: [id number] Ordering Physician: Armida Barreto Dictated By: Edilberto Walters MD Dictated Date/Time: 06/03/21 9:01 am Reviewed By: Edilberto Walters MD Signed By: Edilberto Walters MD Signed Date/Time: 06/03/21 9:01 am Transcribed By: DEIDRE Transcribed Date/Time: 06/03/21 8:50 am * Exam Date Time Procedure Performing Provider Status 06/01/21 3:58 AM Chest Portable Sarah Azevedo; Auth (V erified) Notes: (Chest Portable) Reason For Exam: Shortness of Breath RESULT: Chest Portable Chest Portable single AP upright view. Hx of Present Illness: Pt comes from home reporting abd pain x8 hours, now 10 10, nausea no vomit, normal BM, history of bowel obstuctions and many abd surgeries , DM insulin dependant, took insulinPTA. in ed reported difficult bowl movement.; Reason: Shortness of Breath; Clinical Question(s): CHF COMPARISON: None. FINDINGS: LINES AND TUBES: Again demonstrated is a right Port-A-Cath with its tip at the expected location of the right atrium. LUNGS AND PLEURA: The lungs are hypoexpanded. Questionable diffuse hazy opacity in the right lung field. There is no evidence of a pleural effusion. There is no evidence of a pneumothorax. HEART, MEDIASTINUM AND LISA: Heart is normal in size. Normal upper mediastinal and hilar contour. BONES AND SOFT TISSUES: No acute abnormality. IMPRESSION: 1. Questionable diffuse hazy opacity in the right lung field which may be artifactual or may represent airspace disease. Clinical correlation and follow- up is recommended. WSN: [id number] Ordering Physician: Dk Hester Dictated By: Aida Oh MD Dictated Date/Time: 06/01/21 8:21 am Reviewed By: Aida Oh MD Signed By: Aida Oh MD Signed Date/Time: 06/01/21 8:21 am Transcribed By: DEIDRE Transcribed Date/Time: 06/01/21 8:18 am Vital Signs Most recent to oldest [Reference Range]: 1 2 3 Height 155 cm (06/04/21 12:28 PM) 155 cm (06/04/21 8:13 AM) 155 cm (06/04/21 3:00 AM) Weight 129 kg (06/02/21 3:50 PM) Oxygen Saturation [94-100 %] 98 % (06/04/21 12:28 PM) 96 % (06/04/21 8:13 AM) 95 % (06/04/21 3:00 AM) Pulse Rate [55-90 bpm] 81 bpm (06/04/21 12:28 PM) 72 bpm (06/04/21 8:13 AM) 78 bpm (06/04/21 3:00 AM) Body Mass Index [18.5-24.99] 53.69 *>HHI* (06/02/21 3:50 PM) Blood Pressure [90-138/55-84 mm Hg] 155/101mm Hg *H* (06/04/21 12:28 PM) 142/93mm Hg *H* (06/04/21 8:13 AM) 131/76mm Hg (06/04/21 3:00 AM) Respiratory Rate [16-30 br/min] 18 br/min (06/04/21 12:28 PM) 18 br/min (06/04/21 9:08 AM) 18 br/min (06/04/21 8:13 AM) Temperature [96.8-100.4 DegF] 97.9 DegF (06/04/21 12:28 PM) 97.9 DegF (06/04/21 8:13 AM) 98.1 DegF (06/04/21 3:00 AM) Mode of Delivery (Oxygen) Room air (06/04/21 12:28 PM) Room air (06/04/21 8:13 AM) Room air (06/04/21 3:00 AM) Blood pressure sites Arm, left (06/04/21 12:28 PM) Arm, left (06/04/21 8:13 AM) Arm, right (06/04/21 3:00 AM) Temperature Route Oral (06/04/21 12:28 PM) Oral (06/04/21 8:13 AM) Oral (06/04/21 3:00 AM) Dry Weight 129 kg (06/02/21 3:50 PM) Social History Social History Type Response Smoking Status Former smoker; Other : quit 04/2015; entered on: 01/30/16 Sex
--- OUTSIDE RECORDS SUMMARY | 2022-08-31 01:11 | XMS_ITS | Continuity of Care Document ---
Author Name Unknown Organization [facility] Infectious Disease Address [address] [place] [id number]- Care Team Providers Care Barrel Raiser Helper Name Role Phone Jerica DOChaparrita Primary Care Physician [place] [facility] [place] 03/23/22 - 04/22/22 [facility] Infect[facility] [address] [place] [id number] Attending Physician: Jamie Gregorio Admitting Physician: AdmtrJamie [...] Lyrica Angioedema Active Lantiseptic Skin Protectant Active Levaquin tingling in mouth, rash Acti ve Adhesive Bandage skin excoriation hives Active Latex vag rash Active 1per , tolerates with diphenhydramine 2Tolerates [...] to receive vaccine 2Admin Note: manufactured by [employer] Medications albuterol 0.042% inhalation solution 3 [...] 03/12/22 12:08:00 EST, Route to Pharmacy Electronically, [facility], Partial fill [...] 03/09/23 23:00:00 EST, 03/12/22 12:09:00 EST, Syrup, [facility], Partial fill [...] 03/09/23 23:00:00 EST, 03/12/22 12:10:00 EST, Patch, [facility], Partial fill [...] tablet, 0 Refills, Maintenance, 04/02/20 9:29:00 EST, [facility], Partial fill upon patient request [...] 03/12/22 12:06:00 EST, Route to Pharmacy Electronically, [facility], Partial fill uponpatient request if the [...] 06/21/18 11:05:15 EDT, Route to Pharmacy Electronically, [id number], [facility] Start Date: 06/21/18 Status: Ordered Vitamin [...] WITH PROLONGED DEPRESSIVE REACTION Confirmed 02/03/[address] [facility] Plush Team Senior Level Patient Confirmed Active ASTHMA [...] Team Personnel Name: Lola Belcher RN Position: [facility] RN Member Role: Primary Care Nurse Name: Jose Enrique Saul RN Position: [facility] RN Member Role: Primary Care Nurse Name: Symone Mckinnon RN Position: [facility] RN Member Role: Primary Care Nurse Name: Carolyn Pelaez RN Position: [facility] RN Member Role: Primary Care Nurse Name: Fanny Mixon RN Position: [facility] ED RN W/OE and Tasks Member Role: Primary Care Nurse Name: María Ashford RN Position: [facility] AMB Nurse Member Role: Primary Care Nurse Name: Chanelle Hernandez RN Position: [facility] AMB Nurse Member Role: Primary Care Nurse Name: Estelle García RN Position: [facility] RN Member Role: Primary Care Nurse Name: Deanne Rangel RN Position: [facility] RN Member Role: Primary Care Nurse Name: Carine Jimenez RN Position: [facility] SN RN Member Role: Primary Care Nurse Name: Jenelle Campo RN Position: [facility] RN Member Role: Primary Care Nurse Name: Keyla Godwin RN Position: [facility] RN Member Role: Primary Care Nurse Name: Yeimi Devine RN Position: [facility] RN Member Role: Primary Care Nurse Name: Mary Yan RN Position: [facility] RN Member Role: Primary Care Nurse Name: Iliana Pop RN Position: [facility] RN Member Role: Primary Care Nurse Name: Alcides Dueñas RN Position: [facility] RN Member Role: Primary Care Nurse Name: Lisa Beatty Position: [facility] Outreach Member Role: Lifetime Consulting Physician Name: Armida Beatty RN Position: [facility] RN Member Role: Primary Care Nurse Name: Deonna Beatty RN Position: [facility] RN Member Role: Primary Care Nurse Name: Roque Villasenor MD Position: [facility] Renal MD Member Role: Lifetime Consulting Physician Address: Address: [address] [place] [address], [address] [facility] [place] [address]- Name: Lashon Lovell RN Position: [facility] SN RN Member Role: Primary Care Nurse Name: Kristi Giraldo RN Position: [facility] RN Supv Member Role: Primary Care Nurse Name: Jerrod Casarez RN Position: [facility] RN Member Role: Primary Care Nurse Name: Shane Riley RN Position: [facility] RN Member Role: Primary Care Nurse Name: Isac Plascencia RN Position: [facility] RN Member Role: Primary Care Nurse Name: Rosalva Martin RN Position: [facility] RN Member Role: Primary Care Nurse Name: Sheela Matt RN Position: [facility] RN Member Role: Primary Care Nurse Name: Armida Ochoa RN Position: [facility] RN Member Role: Primary Care Nurse Name: Felipa Diehl RN Position: [facility] HBO Wound Member Role: Primary Care Nurse Name: Evelin Powell RN Position: [facility] AMB Nurse Member Role: Primary Care Nurse Name: Deonna Pendleton RN Position: [facility] RN Member Role: Primary Care Nurse Name: Pili Kaba RN Position: [facility] RN Member Role: Primary Care Nurse Name: Alejandro Yanes RN Position: [facility] RN Member Role: Primary Care Nurse Name: Stacey Díaz RN Position: [facility] SN RN Member Role: Primary Care Nurse Name: Jac Reese RN Position: [facility] RN Member Role: Primary Care Nurse Name: Celestine Schwartz RN Position: [facility] RN Member Role: Primary Care Nurse Name: Neeta Carpenter RN Position: [facility] RN Member Role: Primary Care Nurse Name: Susie Estrada RN Position: [facility] RN Member Role: Primary Care Nurse Name: Inna Cantor RN Position: [facility] RN Member Role: Primary Care Nurse Name: Chaparrita Pizano DO Position: [facility] Physician (General Medicine) Member Role: PCP Address: Address: [address] [place] [address] [place] [address]- [place] Name: Ning Rolon RN Position: [facility] RN Member Role: Primary Care Nurse Name: Rubi Carrasco RN Position: [facility] SN RN Member Role: Primary Care Nurse Name: Lauryn Holden RN Position: [facility] RN Member Role: Primary Care Nurse Name: Jones Cervantes RN Position: [facility] RN Member Role: Primary Care Nurse Name: Olivia Caputo RN Position: [facility] RN Member Role: Primary Care Nurse Name: Brooklyn Jim RN Position: [facility] RN Member Role: Primary Care Nurse Name: Kimberly Santoro RN Position: [facility] RN Member Role: Primary Care Nurse Name: Haley Diamond RN Position: [facility] RN Member Role: Primary Care Nurse Name: Ashley Meléndez NP Position: [facility] PCO Associate Professional Member Role: Primary Care Nurse Address: Address: [address] [place] [address]- Name: Siomara Patricia RN Position: [facility] PCO RN Member Role: Primary Care Nurse Name: Neeta Painter RN Position: [facility] RN Member Role: Primary Care Nurse Name: Bailey Espinal RN Position: [facility] AMB Nurse Member Role: Primary Care Nurse Name: Brooklyn Ramsey RN Position: [facility] RN Member Role: Primary Care Nurse Name: Keyla Bright RN Position: [facility] RN Member Role: Primary Care Nurse Name: Beverley Tatum RN Position: [facility] RN Member Role: Primary Care Nurse Name: Mainor Devries RN Position: [facility] RN Member Role: Primary Care Nurse Name: Yarely Richards RN Position: [facility] Work Manager Member Role: Primary Care Nurse Name: Oralia Massey RN Position: [facility] RN Member Role: Primary Care Nurse Name: Cassie Villanueva RN Position: [facility] RN Member Role: Primary Care Nurse Name: Taiwo Mcgregor RN Position: [facility] RN Member Role: Primary Care Nurse Name: Cally Funes RN Position: [facility] SN RN Member Role: Primary Care Nurse Name: Marina Osorio Position: [facility] RN Member Role: Primary Care Nurse Name: Lisa Blanton RN Position: [facility] Work Manager Member Role: Primary Care Nurse Name: Danica Stuart RN Position: [facility] AMB Nurse Member Role: Primary Care Nurse Name: Virginia Bacon RN Position: [facility] RN Member Role: Primary Care Nurse Name: Shruthi Ray RN Position: [facility] Onco RN Member Role: Primary Care Nurse Name: Abbe Choe RN Position: [facility] RN Supv Member Role: Primary Care Nurse Name: Farideh Cat LPN Position: [facility] RN Member Role: Primary Care Nurse Name: Janis Morris RN Position: [facility] Work Manager Member Role: Primary Care Nurse Name: Darrian Chang RN Position: [facility] Work Manager Member Role: Primary Care Nurse Name: Josef Woods RN Position: [facility] RN Member Role: Primary Care Nurse Name: Jerry Mcneill RN Position: [facility] RN Member Role: Primary Care Nurse Care Team Related Persons Name: CHERELLE IVAN Address: [place] [address] Name: REYNALDO KAUR Address: home [address] [place] [address] Name: EMMA SERRANO Address: home [address] [address] Name: PATRICK MATA Address: [address] [place] [address] Name: FARIDEH POPE Address: [place] [address]
--- OUTSIDE RECORDS SUMMARY | 2022-08-31 01:11 | XMS_ITS | Continuity of Care Document ---
Author Name Unknown Organization [facility] VICE PRESIDENT IN[facility]ST[facility] RELATIONS Oncolog y Address [address] [place] [id number]- Care Team Providers Care Chaperon Name Role Phone JericaChaparrita apple DO Primary Care Physician Encounter [facility] Date(s): 07/09/20 - 08/08/20 [facility] Oncology [address] [place] [address]- Attending Physician: Jamie Gregorio Admitting Physician: AdmtrJamie [...] to receive vaccine 2Admin Note: manufactured by [employer] Medications albuterol 0.042% inhalation solution 3 [...] 0 Refills, Soft Stop, 04/09/20 13:16:00 EST, [facility], Partial fill upon [...] 08/14/20 14:34:00 EDT, 07/31/20 14:34:00 EDT, Tablet, [facility], Partialfill upon patient request if the prescription is for a... Start Date: 07/31/20 Stop Date: 08/14/20 Status: Ordered ondansetron 4 mg oral tablet, disintegrating = 4 mg, By Mouth, Every 6 hours, PRN Nausea & Vomiting, # 90 tablet, 0 Refills, Maintenance, 04/02/20 9:29:00 EST, Tablet, [facility], Partial fill upon patient request if the prescription is for a schedule II opioid drug., 154.94, cm, 0... Start Date: 04/02/20 Status: Ordered oxyCODONE 10 mg oral tablet See Instructions, 1 tablet By Mouth 5 times per day for 7 days, per pain services recommedations, #35 tablet, 0 Refills, Maintenance, 06/20/20 8:49:00 EDT, Tablet, [id number], Partial fill [...] 08/30/17 8:21:42 EDT, Route to Pharmacy Electronically, [id number], [id number] Start Date: 08/30/17 Status: Ordered Tums 500 mg oral tablet, chewable 500 mg, 1, tablet, Chew, Every 4 hours, PRN, # 180 tablet, Refills 0, Tot. Refills 0, Maintenance, Dyspepsia, 06/21/18 11:05:15 EDT, Route to Pharmacy Electronically, [id number], [facility] Start Date: 06/21/18 [...] WITH PRO LONGED DEPRESSIVE REACTION(Confirmed) 02/03/07 Active [facility] Emeral d Team Senior Level [...]
--- OUTSIDE RECORDS SUMMARY | 2022-08-31 01:11 | XMS_ITS | Continuity of Care Document ---
Author Name Unknown Organization [facility] INVESTMENT MANAGER Oncolog y Address [address] [place] [address]- Care Team Providers Care [employer] Consultant Name Role Phone JericaChaparrita apple DO Primary Care Physician Encounter [facility] Date(s): 06/12/20 - 07/12/20 [facility] INVESTMENT MANAGER Oncology [address] [place], [place] [address] Allergies, Adverse Reactions, Alerts [...] 1 02/02/07 Given 1Admin Note: manufactured by [employer] Medications albuterol 0.042% inhalation solution 3 [...] Refills, Soft Stop, 06/23/20 10:08:00 EDT, Tablet, [facility]/pharmacy #[id number], Partial fill upon patient request if the [...] 0 Refills, Soft Stop, 04/09/20 13:16:00 EST, [facility], Partial fill upon patient request [...] 9:29:00 EST, Tablet, [facility], Partial fill upon patient request if the prescription is for a schedule II opioid drug., 154.94, cm, 0... Start Date: 04/02/20 Status: Ordered oxyCODONE 10 mg oral tablet See Instructions, 1 tablet By Mouth 5 times per day for 7 days, per pain services recommedations, #35 tablet, 0 Refills, Maintenance, 06/20/20 8:49:00 EDT, Tablet, [facility]/pharmacy #[id number], Partial fill upon patient [...] 08/30/17 8:21:42 EDT, Route to Pharmacy Electronically, [id number], [facility][id number] Start Date: 08/30/17 Status: Ordered Tums 500 mg oral tablet, chewable 500 mg, 1, tablet, Chew, Every 4 hours, PRN, # 180 tablet, Refills 0, Tot. Refills 0, Maintenance, Dyspepsia, 06/21/18 11:05:15 EDT, Route to Pharmacy Electronically, [id number], [facility] Start Date: 06/21/18 Status: [...] WITH PRO LONGED DEPRESSIVE REACTION(Confirmed) 02/03/07 Active [facility] Emeral d Team Senior Level [...]
--- OUTSIDE RECORDS SUMMARY | 2022-08-31 01:11 | XMS_ITS | Continuity of Care Document ---
Author Name Unknown Organization [facility] Address [address] [place] [address]- Care Team Providers Care Production Intern Name Role Phone Darryl Pizano DOumair Candy Primary Care Physician Encounter [facility] Date(s): 08/28/22 - 08/28/[address] [address]- Discharge Disposition: A-D/C Home Attending Physician: Lan Hernandes MD Admitting Physician: Lan Hernandes MD Referring Physician: Not on Staff, Referring MD Allergies, Adverse Reactions, Alerts Substance Reaction Severity Status doxycycline mouth swelling Active ceftriaxone hives Active melatonin Active Levaquin tingling in mouth, rash Acti ve penicillin throat swelling Rash Persistent Severe Active famotidine vomiting Active morphine 1, 2, 3 hives Active iodine topical swelling itching Active Pepcid vomitng Active Zofran 4 can only be given w/ benadryl hives Active Adhesive Bandage skin excoriation hives Active Nexium diarrhea, vomitting Active Compazine shortness [...] to receive vaccine 2Admin Note: manufactured by [employer] Medications albuterol CFC free 90 mcg/inh inhalation [...] 03/12/22 12:08:00 EST, Route to Pharmacy Electronically, [facility] [...] for 3 doses/times, PRN for Pain , Severe, STAT, 08/28/22 18:12:00 EDT, Stop date Limited # of times Start Date: 08/28/22 Stop Date: 08/29/22 Status: Discontinued Ensure High Protein Ensure High [...] 03/09/23 23:00:00 EST, 03/12/22 12:10:00 EST, Patch, [facility], Partial fill upon [...] tablet, 0 Refills, Maintenance, 04/02/20 9:29:00 EST, [facility], Partial fill upon patient request if the prescription is for a schedule II opioid drug., 154.94, cm, 04/02/20 8... Start Date: 04/02/20 Status: Ordered oxybutynin 5 mg/5 mL oral syrup 5 mL = 5 mg, By Mouth, 3 times a day, for bladder spasm, # 450 mL, 0 Refills, Maintenance, 06/16/2310:29:00 EDT, Syrup, [facility]/pharmacy #[id number], Partial fill upon patient request [...] 03/12/22 12:06:00 EST, Route to Pharmacy Electronically, [facility] 3, Partial fill uponpatient request if [...] 06/21/18 11:05:15 EDT, Route to Pharmacy Electronically, [id number], [facility] 3 Start Date: 06/21/18 Status: Ordered [...] WITH PROLONGED DEPRESSIVE REACTION Confirmed 02/03/07 Active [facility] [place] Team Senior Level Patient Confirmed Active ASTHMA [...] Exam Date Time Procedure Performing Provider Status 08/28/22 6:[address] Abdomen and Pelvi s W/O Contrast Symone Mckeon; Auth (Verified) Notes: (CT Abdomen and Pelvis W/O Contrast) Reason For Exam: Flank pain, Stone disease suspected;Other: RESULT: CT Abdomen and Pelvis W/O Contrast CT Abdomen and Pelvis W/O Contrast Hx of Present Illness: Right flank and RLQ abdominal pain x 3 days; + N V; Hx kidney stones; pt on TPN at home; Reason: Other:; Flank pain, Stone disease suspected; Clinical Question(s): Calculus; Right side flank pain TECHNIQUE: Spiral CT through the abdomen and pelvis without IV contrast formatted in 3 planes. Thisstudy was performed oral contrast. Weight-based protocol using automatic tube modulation was used to optimize exposure parameters. CTDIvol Body: 30.41 mGy, DLP Body: 1596 mGy*cm. COMPARISON: 06/15/2022 FINDINGS: The heart is normal in size. There is no pericardial effusion. Atelectasis within the lower lobes is seen. There is a stable 0.2 cm left lower lobe nodule (image 19). The liver is unremarkable. The gallbladder is surgically absent. The spleen, pancreas, and adrenal glands are unremarkable. The kidneys are normal in morphology. There is a nonobstructing 0.1 cm left interpolar region calculus. No cysts or masses are present. There is no hydronephrosis. The bladder is distended and unremarkable. The uterus is surgically absent. The appendix is not identified, however, there is no pericecal inflammatory change to suggest the presence of appendicitis. Fecalization of several distal small bowel loops is noted without proximal dilatation. This may be secondary to stasis. No obstruction is present. There is no free air, free fluid, or lymphadenopathy. An anterior abdominal wall hernia mesh is demonstrated. There is persistent soft tissue density within the left anterior abdominal wall inferiorly adjacent to the rectus muscle. This may represent scar or a desmoid. The osseous structures are unremarkable. IMPRESSION: Stable chronic changes. There is no acute abnormality. WSN: [id number] Ordering Physician: Lan Hernandes Dictated By: Radha Wheatley MD Dictated Date/Time: 08/28/22 6:55 pm Reviewed By: Radha Wheatley MD Signed By: Radha Wheatley MD Signed Date/Time: 08/28/22 6:55 pm Transcribed By: DEIDRE Transcribed Date/Time: 08/28/22 6:52 pm Vital Signs Most recent to oldest [Reference Range]: 1 2 3 Height 154 cm (08/28/22 2:32 PM) Weight 126.3 kg (08/28/22 2:32 PM) Oxygen Saturation [94-100 %] 99 % (08/28/22 6:40 PM) 100 % (08/28/22 5:11 PM) 99 % (08/28/22 2:32 PM) Pulse Rate [55-90 bpm] 82 bpm (08/28/22 6:40 PM) 78 bpm (08/28/22 5:11 PM) 73 bpm (08/28/22 2:32 PM) Blood Pressure [90-138/55-84 mm Hg] 138/101mm Hg (08/28/22 6:40 PM) 115/80mm Hg (08/28/22 5:11 PM) 141/96mm Hg *H* (08/28/22 2:32 PM) Respiratory Rate [16-30 br/min] 20 br/min (08/28/22 7:59 PM) 18 br/min (08/28/22 6:40 PM) 18 br/min (08/28/22 6:22 PM) Temperature [96.8-100.4 DegF] 97.3 DegF (08/28/22 2:32 PM) Mode of Delivery (Oxygen) Room air (08/28/22 6:40 PM) Room air (08/28/22 5:11 PM) Room air (08/28/22 2:32 PM) Blood pressure sites Arm, left (08/28/22 6:40 PM) Arm, left (08/28/22 5:11 PM) Arm, left (08/28/22 2:32 PM) Temperature Route Temporal (08/28/22 2:32 PM) Dry Weight 126.3 kg (08/28/22 2:32 PM) Weight Obtained Via Standing scale (08/28/22 2:32 PM) Dry Weight Obtained Via Standing scale (08/28/22 2:32 PM) Social History Social History Type Response Smoking Status Former smoker; Other : quit 04/2015; entered on: 01/30/16 Sex Note * Greta SHERIFF, Lan Quiroga: PERFORM Event Display: Patient Education Leaflets Authored Date: [id number] Unknown Causes of Abdominal Pain (Adult) ?? [id number] Unknown Causes of Abdominal Pain (Adult) The exact cause of your belly (abdominal) pain is not clear. Your exam and tests don't suggest a dangerous cause at this time. This does not mean that this is something to worry about. Everyone likesto know the exact cause of the problem. But sometimes with belly pain, there is no clear-cut cause,and this could be a good thing. Your symptoms can be treated, and you should feel better.?? Your condition does not seem serious now. But sometimes the signs of a serious problem may take more time to appear. For this reason,??it's important for you to watch for any new symptoms, problems,??or worsening of your condition. Over the next few days, the abdominal pain may come and go. Or it may be constant. Other common symptoms can include nausea and vomiting. Sometimes it can be difficult to tell if you feel nauseous. You may just feel bad and not connect that feeling to nausea. Constipation, diarrhea, and a fever maygo along with the pain. The pain may continue even if treated correctly over the following days. Depending on how things go, sometimes the cause can become clear and you may need more??or different treatment. You may also need other evaluations, medicines, or tests. Home care Your healthcare provider may prescribe medicine for pain, symptoms, or an infection. ??Follow the healthcare provider's instructions for taking these medicines. General care ??? Rest as much as you can until your next exam. No strenuous activities. ??? Try to not do anything that may have caused your symptoms. This might be not taking any medicines unless otherwise directed by your healthcare provider. It might be not eating certain foods or doing certain activities. ??? Find positions that ease discomfort. A small pillow placed on your belly may help relieve pain. ??? Something warm on your belly such as a heating pad may help, but be careful not to burn yourself. Diet ??? Don???t??force yourself to eat, especially if having cramps, vomiting, or diarrhea. ??? Water is important so you don't get dehydrated. Soup may also be good. Sports drinks may also help, especially if they are not too acidic. Don't drink sugary drinks as this can make things worse. Take liquids in small amounts. Don???t??guzzle them. ??? Caffeine sometimes makes the pain and cramping worse. ??? Don???t take??dairy products if you have vomiting or diarrhea. ??? Don't eat large amounts at a time. Eat several small meals during the day instead of 2 or 3 larger meals. Wait a few minutesbetween bites. ??? Eat a diet low in fiber (called a low-residue diet). Foods allowed include refined breads, white rice, fruit and vegetable juices without pulp, tender meats. These foods will pass more easily through the intestine. ??? Don???t have??whole-grain foods, whole fruits and vegetables,meats, seeds and nuts, fried or fatty foods, dairy, alcohol and spicy foods until your symptoms go away. ?? Follow-up care Follow up with your healthcare provider, or as advised, if your pain does not begin to improve in the next 24 hours. ?? Call 911 Call?? 911 if any of these occur: ??? Trouble breathing ??? Confusion ??? Fainting or loss of consciousness ??? Rapid heart rate ??? Seizure ?? When to seek medical advice Call your healthcare provider right away if any of these occur: ??? Pain gets worse or moves to theright lower abdomen ??? New or worsening vomiting or diarrhea ??? Swelling of the abdomen ??? Unable to pass stool for more than??3 days ??? Fever of 100.4??F (38??C) or higher, or as directed by your healthcare provider ??? Blood in vomit or bowel movements (dark red or black color) ??? Yellow color of eyes and skin (jaundice) ??? Weakness, dizziness ??? Chest, arm, back, neck, or jaw pain ??? Can't keep down medicines, liquids, or water because of too much vomiting ??? If you have a vagina: unexpected vaginal bleeding or missed period ?? Last Reviewed Date: 2020 ?? [id number] [employer]. All rights reserved. This information is not intended as a substitute for professional medical care. Always follow your healthcare professional's instructions. ?? Patient Care team information Care Team Personnel Name: Lola Belcher RN Position: [facility] RN Member Role: Primary Care Nurse Name: Jose Enrique Saul RN Position: [facility] RN Member Role: Primary Care Nurse Name: Symone Mckinnon RN Position: [facility] RN Member Role: Primary Care Nurse Name: Carolyn Pelaez RN Position: [facility] RN Member Role: Primary Care Nurse Name: Fanny Mixon RN Position: [facility] ED RN W/OE and Tasks Member Role: Primary Care Nurse Name: María Ashford RN Position: [facility] AMB Nurse Member Role: Primary Care Nurse Name: Chanelle Hernandez RN Position: [facility] AMB Nurse Member Role: Primary Care Nurse Name: Estelle García RN Position: [facility] RN Member Role: Primary Care Nurse Name: Deanne Rangel RN Position: [facility] RN Member Role: Primary Care Nurse Name: Carine Jimenez RN Position: [facility] SN RN Member Role: Primary Care Nurse Name: Jenelle Campo RN Position: [facility] RN Member Role: Primary Care Nurse Name: Keyla Godwin RN Position: [facility] RN Member Role: Primary Care Nurse Name: Yeimi Devine RN Position: [facility] RN Member Role: Primary Care Nurse Name: Mary Yan RN Position: [facility] RN Member Role: Primary Care Nurse Name: Iliana Pop RN Position: [facility] RN Member Role: Primary Care Nurse Name: Clovis Wang RN Position: [facility] RN Member Role: Primary Care Nurse Name: Alcides Dueñas RN Position: [facility] RN Member Role: Primary Care Nurse Name: Lisa Beatty Position: [facility] Outreach Member Role: Lifetime Consulting Physician Name: Armida Beatty RN Position: [facility] RN Member Role: Primary Care Nurse Name: Deonna Beatty RN Position: [facility] RN Member Role: Primary Care Nurse Name: Roque Villasenor MD Position: [facility] Renal MD Member Role: Lifetime Consulting Physician Address: Address: [address] [place] [address], [address] [facility] [place] [address]- Name: Lashon Lovell RN Position: [facility] SN RN Member Role: Primary Care Nurse Name: Kristi Giraldo RN Position: [facility] RN Supv Member Role: Primary Care Nurse Name: Jerrod Casarez RN Position: [facility] RN Member Role: Primary Care Nurse Name: Shane Riley RN Position: [facility] RN Member Role: Primary Care Nurse Name: Isac Plascencia RN Position: [facility] RN Member Role: Primary Care Nurse Name: Rosalva Martin RN Position: [facility] RN Member Role: Primary Care Nurse Name: Sheela Matt RN Position: [facility] RN Member Role: Primary Care Nurse Name: Armida Ochoa RN Position: [facility] RN Member Role: Primary Care Nurse Name: Felipa Diehl RN Position: [facility] HBO Wound Member Role: Primary Care Nurse Name: Evelin Powell RN Position: [facility] AMB Nurse Member Role: Primary Care Nurse Name: Donald Murphy MD Position: [facility] Renal MD Member Role: Lifetime Consulting Physician Address: Address: [address] [place] [address] [address] [facility] [place] [address]- Name: Pili Kaba RN Position: [facility] RN Member Role: Primary Care Nurse Name: Alejandro Yanes RN Position: [facility] RN Member Role: Primary Care Nurse Name: Stacey Díaz RN Position: [facility] SN RN Member Role: Primary Care Nurse Name: Jac Reese RN Position: [facility] RN Member Role: Primary Care Nurse Name: Erica Maya Position: [facility] TA Member Role: Lifetime Consulting Physician Name: Celestine Schwartz RN Position: [facility] RN Member Role: Primary Care Nurse Name: Neeta Carpenter RN Position: [facility] RN Member Role: Primary Care Nurse Name: Susie Estrada RN Position: [facility] RN Member Role: Primary Care Nurse Name: Inna Cantor RN Position: [facility] RN Member Role: Primary Care Nurse Name: Chaparrita Pizano DO Position: [facility] Physician (General Medicine) Member Role: PCP Address: Address: [address] [place] [id number]- Name: Ning Rolon RN Position: [facility] RN Member Role: Primary Care Nurse Name: Rubi Carrasco RN Position: [facility] SN RN Member Role: Primary Care Nurse Name: Lauryn Holden RN Position: [facility] RN Member Role: Primary Care Nurse Name: Jones Cervantes RN Position: [facility] RN Member Role: Primary Care Nurse Name: Olivia Caputo RN Position: [facility] RN Member Role: Primary Care Nurse Name: Brooklyn Jim RN Position: [facility] RN Member Role: Primary Care Nurse Name: Kimberly Santoro RN Position: [facility] RN Member Role: Primary Care Nurse Name: Haley Diamond RN Position: [facility] RN Member Role: Primary Care Nurse Name: Ashley Meléndez NP Position: [facility] PCO Associate Professional Member Role: Primary Care Nurse Address: Address: [address] [place] [address] [address] [place] [address]- [place] Name: Siomara Patricia RN Position: [facility] AMB Nurse Member Role: Primary Care Nurse Name: Neeta Painter RN Position: [facility] RN Member Role: Primary Care Nurse Name: Bailey Espinal RN Position: [facility] AMB Nurse Member Role: Primary Care Nurse Name: Brooklyn Ramsey RN Position: [facility] RN Member Role: Primary Care Nurse Name: Keyla Bright RN Position: [facility] RN Member Role: Primary Care Nurse Name: Beverley Tatum RN Position: [facility] RN Member Role: Primary Care Nurse Name: Mainor Devries RN Position: [facility] RN Member Role: Primary Care Nurse Name: Yarely Richards RN Position: [facility] Physicist [employer]ics Member Role: Primary Care Nurse Name: Oralia Massey RN Position: [facility] RN Member Role: Primary Care Nurse Name: Cassie Villanueva RN Position: [facility] RN Member Role: Primary Care Nurse Name: Taiwo Mcgregor RN Position: [facility] RN Member Role: Primary Care Nurse Name: Cally Funes RN Position: [facility] SN RN Member Role: Primary Care Nurse Name: Marina Willard Position: [facility] AMB [place] Member Role: Primary Care Nurse Name: Lisa Blanton RN Position: [facility] Physicist [employer] Member Role: Primary Care Nurse Name: Joel Blanton RN Position: [facility] RN Member Role: Primary Care Nurse Name: Danica Stuart RN Position: [facility] AMB Nurse Member Role: Primary Care Nurse Name: Virginia Bacon RN Position: [facility] RN Member Role: Primary Care Nurse Name: Shruthi Ray RN Position: [facility] Onco RN Member Role: Primary Care Nurse Name: Abbe Choe RN Position: [facility] RN Supv Member Role: Primary Care Nurse Name: Farideh Cat LPN Position: [facility] RN Member Role: Primary Care Nurse Name: Janis Morris RN Position: [facility] [employer] Member Role: Primary Care Nurse Name: Darrian Chang RN Position: [facility] [employer] [employer] Member Role: Primary Care Nurse Name: Josef Woods RN Position: [facility] RN Member Role: Primary Care Nurse Name: Siomara Raphael RN Position: [facility] RN Member Role: Primary Care Nurse Name: Jerry Mcneill RN Position: [facility] RN Member Role: Primary Care Nurse Name: Gavin Lewis RN Position: [facility] ED RN W/OE and Tasks Member Role: Patient Care Provider Name: Lan Hernandes MD Position: [facility] ED Medicine MD Member Role: Admitting Physician Address: Address: [address] [place] [address]- [place] [address]- [place] Name: Vandana Alves Position: [facility] ED TA [facility] Member Role: ED Associate Name: Allie Mario Position: [facility] ED TA [facility] Care Team Related Persons Name: IVAN VILLASENOR Address: [place] [address] Name: REYNALDO KAUR Address: home [address] [place] [address] Name: EMMA SERRANO Address: home [address] [address] Name: PATRICK MATA Address: home [address] [place] [address] Name: FARIDEH POPE Address: [place] [address]
--- OUTSIDE RECORDS SUMMARY | 2022-08-31 01:11 | XMS_ITS | Continuity of Care Document ---
Author Name Unknown Organization [facility]ACH[facility]PER[facility] Onc[facility] y Address [address] [place] [address]- Care Team Providers Care Take Off Worker Name Role Phone Chaparrita Pizano DO Primary Care Physician Encounter [facility] Date(s): 01/18/20 - 02/17/20 [facility] MACH[facility]PER[facility] Oncology [address] [place] [id number] Allergies, Adverse Reactions, Alerts Substance Reaction [...] 11:42:54 EDT, Aerosol, Route to Pharmacy Electronically, [id number], [facility]/pharmacy #[id number], Compound Start Date: [...] capsule, 0 Refills, Maintenance, 05/02/19 10:52:00 EDT, [facility]/pharmacy #[id number], 155.9, cm, 04/26/19 [...] Refills, Soft Stop, 02/13/20 9:25:00 EST, Tablet, [facility]/pharmacy #[id number], Partial fill upon patient request if the [...] 05/05/18 9:38:51 EDT, Route to Pharmacy Electronically, [id number]... Start Date: 05/05/18 Status: Ordered Insulin Glargine Inj 0.6 mL = 60 units, Subcutaneous Injection, Daily at bedtime, 0 Refills, Maintenance, 08/20/19 18:48:00 EDT, Injection Start Date: 08/20/19 Status: Ordered LORazepam 0.5 mg oral tablet See Instructions, Take 1 tablet by mouth 1 hour prior to biopsy appointment, may repeat x1 if needed, # 2 tablet, 0 Refills, Maintenance, 04/27/19 16:33:00 EDT, [facility]/pharmacy #[id number], 155.9, cm, 04/26/19 [...] each, 2 Refills, Maintenance, 12/05/19 20:53:00 EDT, [facility], 155, cm, 08/20/19 16:31:00 [...] 02/13/20 12:00:00 EST, Route to Pharmacy Electronically, [facility]/pharmacy #[id number], Partial fill upon patient request, 155, cm, [...] 08/30/17 8:21:42 EDT, Route to Pharmacy Electronically, [id number], [facility]/pharmacy #[id number] Start [...] 06/21/18 11:05:15 EDT, Route to Pharmacy Electronically, [id number], [facility] Start Date: [...]
--- OUTSIDE RECORDS SUMMARY | 2022-08-31 01:12 | XMS_ITS | Continuity of Care Document ---
Author Name Unknown Organization [facility] ter Address [address] [place] [address]- Care Team Providers Care Courier Driver Name Role Phone Jerica DO Darryldavidradha Gupta Primary Care Physician Encounter [facility] Date(s): 12/28/21 - 04/23/[address] [address]- Attending Physician: Donald Murphy MD Admitting Physician: [...] to receive vaccine 2Admin Note: manufactured by [employer] Medications albuterol 0.042% inhalation solution 3 [...] 03/12/22 12:08:00 EST, Route to Pharmacy Electronically, [facility], Partial fill upon [...] 03/09/23 23:00:00 EST, 03/12/22 12:09:00 EST, Syrup, [facility], Partial fill upon [...] 03/09/23 23:00:00 EST, 03/12/22 12:10:00 EST, Patch, [facility], Partial fill upon [...] tablet, 0 Refills, Maintenance, 04/02/20 9:29:00 EST, [facility], Partial fill upon [...] 03/12/22 12:06:00 EST, Route to Pharmacy Electronically, [facility], Partial fill uponpatient request [...] 06/21/18 11:05:15 EDT, Route to Pharmacy Electronically, [id number], [facility] Start Date: 06/21/18 Status: [...] WITH PROLONGED DEPRESSIVE REACTION Confirmed 02/03/07 Active [facility] Team Senior Level Patient Confirmed Active ASTHMA [...] Team Personnel Name: Lola Belcher RN Position: [facility] RN Member Role: Primary Care Nurse Name: Jose Enrique Saul RN Position: [facility] RN Member Role: Primary Care Nurse Name: Symone Mckinnon RN Position: [facility] RN Member Role: Primary Care Nurse Name: Carolyn Pelaez RN Position: [facility] RN Member Role: Primary Care Nurse Name: Fanny Mixon RN Position: [facility] ED RN W/OE and Tasks Member Role: Primary Care Nurse Name: María Ashford RN Position: [facility] AMB Nurse Member Role: Primary Care Nurse Name: Chnaelle Hernandez RN Position: [facility] AMB Nurse Member Role: Primary Care Nurse Name: Estelle García RN Position: [facility] RN Member Role: Primary Care Nurse Name: Deanne Rangel RN Position: [facility] RN Member Role: Primary Care Nurse Name: Carine Jimenez RN Position: [facility] SN RN Member Role: Primary Care Nurse Name: Jenelle Campo RN Position: [facility] RN Member Role: Primary Care Nurse Name: Keyla Godwin RN Position: [facility] RN Member Role: Primary Care Nurse Name: Yeimi Devine RN Position: [facility] RN Member Role: Primary Care Nurse Name: Mary Yan RN Position: [facility] RN Member Role: Primary Care Nurse Name: Iliana Pop RN Position: [facility] RN Member Role: Primary Care Nurse Name: Alcides Dueñas RN Position: [facility] RN Member Role: Primary Care Nurse Name: Lisa Beatty Position: [facility] Outreach Member Role: Lifetime Consulting Physician Name: Armida Beatty RN Position: [facility] RN Member Role: Primary Care Nurse Name: Deonna Beatty RN Position: [facility] RN Member Role: Primary Care Nurse Name: Roque Villasenor MD Position: [facility] Renal MD Member Role: Lifetime Consulting Physician Address: Address: [address] [place] [address], [address] [facility] [place] [address]- Name: Lashon Lovell RN Position: [facility] SN RN Member Role: Primary Care Nurse Name: Kristi Giraldo RN Position: [facility] RN Supv Member Role: Primary Care Nurse Name: Jerrod Casarez RN Position: [facility] RN Member Role: Primary Care Nurse Name: Shane Riley RN Position: [facility] RN Member Role: Primary Care Nurse Name: Isac Plascencia RN Position: [facility] RN Member Role: Primary Care Nurse Name: Rosalva Martin RN Position: [facility] RN Member Role: Primary Care Nurse Name: Sheela Matt RN Position: [facility] RN Member Role: Primary Care Nurse Name: Armida Ochoa RN Position: [facility] RN Member Role: Primary Care Nurse Name: Felipa Diehl RN Position: [facility] HBO Wound Member Role: Primary Care Nurse Name: Evelin Powell RN Position: [facility] AMB Nurse Member Role: Primary Care Nurse Name: Deonna Pendleton RN Position: [facility] RN Member Role: Primary Care Nurse Name: Pili Kaba RN Position: [facility] RN Member Role: Primary Care Nurse Name: Alejandro Yanes RN Position: [facility] RN Member Role: Primary Care Nurse Name: Stacey Díaz RN Position: [facility] SN RN Member Role: Primary Care Nurse Name: Jac Reese RN Position: [facility] RN Member Role: Primary Care Nurse Name: Celestine Schwartz RN Position: [facility] RN Member Role: Primary Care Nurse Name: Neeta Carpenter RN Position: [facility] RN Member Role: Primary Care Nurse Name: Susie Estrada RN Position: [facility] RN Member Role: Primary Care Nurse Name: Inna Cantor RN Position: [facility] RN Member Role: Primary Care Nurse Name: Chaparrita Pizano DO Position: [facility] Physician (General Medicine) Member Role: PCP Address: Address: [address] [place] [address] [place] [address]- [place] Name: Ning Rolon RN Position: [facility] RN Member Role: Primary Care Nurse Name: Rubi aCrrasco RN Position: [facility] SN RN Member Role: Primary Care Nurse Name: Lauryn Holden RN Position: [facility] RN Member Role: Primary Care Nurse Name: Jones Cervantes RN Position: [facility] RN Member Role: Primary Care Nurse Name: Olivia Caputo RN Position: [facility] RN Member Role: Primary Care Nurse Name: [place] Jim RN Position: [facility] RN Member Role: Primary Care Nurse Name: Kimberly Santoro RN Position: [facility] RN Member Role: Primary Care Nurse Name: Haley Diamond RN Position: [facility] RN Member Role: Primary Care Nurse Name: Ashley Meléndez NP Position: [facility] PCO Associate Professional Member Role: Primary Care Nurse Address: Address: [address] [place] [address]- Name: Siomara Patricia RN Position: [facility] PCO RN Member Role: Primary Care Nurse Name: Neeta Painter RN Position: [facility] RN Member Role: Primary Care Nurse Name: Bailey Espinal RN Position: [facility] AMB Nurse Member Role: Primary Care Nurse Name: [place] Ramsey RN Position: [facility] RN Member Role: Primary Care Nurse Name: Keyla Bright RN Position: [facility] RN Member Role: Primary Care Nurse Name: Beverley Tatum RN Position: [facility] RN Member Role: Primary Care Nurse Name: Mainor Devries RN Position: [facility] RN Member Role: Primary Care Nurse Name: Yarely Richards RN Position: [facility] Oxyacetylene Burner Member Role: Primary Care Nurse Name: Oralia Massey RN Position: [facility] RN Member Role: Primary Care Nurse Name: Cassie Villanueva RN Position: [facility] RN Member Role: Primary Care Nurse Name: Taiwo Mcgregor RN Position: [facility] RN Member Role: Primary Care Nurse Name: Cally Funes RN Position: [facility] RN Member Role: Primary Care Nurse Name: Marina Osorio Position: [facility] RN Member Role: Primary Care Nurse Name: Lisa Blanton RN Position: [facility] Oxyacetylene Burner Member Role: Primary Care Nurse Name: Danica Stuart RN Position: [facility] AMB Nurse Member Role: Primary Care Nurse Name: Virginia Bacon RN Position: [facility] RN Member Role: Primary Care Nurse Name: Shruthi Ray RN Position: [facility] Onco RN Member Role: Primary Care Nurse Name: Abbe Choe RN Position: [facility] RN Supv Member Role: Primary Care Nurse Name: Farideh Cat LPN Position: [facility] RN Member Role: Primary Care Nurse Name: Janis Morris RN Position: [facility] Oxyacetylene Burner Member Role: Primary Care Nurse Name: Darrian Chang RN Position: [facility] Oxyacet[employer] Burner Member Role: Primary Care Nurse Name: Josef Woods RN Position: [facility] RN Member Role: Primary Care Nurse Name: Jerry Mcneill RN Position: [facility] RN Member Role: Primary Care Nurse Care Team Related Persons Name: IVAN VILLASENOR Address: [place] [address] Name: REYNALDO KAUR Address: home [address] [place] [address] Name: EMMA SERRANO Address: home [address] [address] Name: PATRICK MATA Address: home [address] [place] [address] Name: FARIDEH POPE Address: [place] [address]
--- OUTSIDE RECORDS SUMMARY | 2022-08-31 01:12 | XMS_ITS | Continuity of Care Document ---
Author Name Unknown Organization [facility] Address [address] [place] [address] D[address] [place] [address]- Care Team Providers Care Composite Assembler Name Role Phone Chaparrita Pizano DO Primary Care Physician ( [phone] Encounter [facility] [place] Date(s): 01/18/22 - 02/24/22 [facility] [address] [place] [address]- Attending Physician: Tien Astudillo MD Referring Physician: Chaparrita Pizano DO Allergies, Adverse Reactions, Alerts Substance Reaction Severity Status doxycycline mouth swelling Active ceftriaxone hives Active iodine topical swelling itching Active melatonin Active Zofran 1 can only be given w/ benadryl hives Active penicillin throat swelling Rash Persistent Severe Active famotidine vomiting Active morphine 2, 3, 4 hives Active Pepcid vomitng Active Adhesive Bandage [...] to receive vaccine 2Admin Note: manufactured by [employer] Medications albuterol 0.042% inhalation solution 3 [...] 09/08/21 13:21:00 EDT, Route to Pharmacy Electronically, [facility], Partial fill upon patient [...] 0 Refills, Maintenance, 04/02/20 9:29:00 EST, Tablet, [facility], Partial fill upon [...] 06/21/18 11:05:15 EDT, Route to Pharmacy Electronically, [id number], [facility] Start Date: [...] WITH PROLONGED DEPRESSIVE REACTION Confirmed 02/03/[address] [facility] Team Senior Level Patient Confirmed Active ASTHMA [...] Role: Lifetime Consulting Physician Address: Address: [address] [place] [address], [address] [facility] [place], [place] [address] Name: Lashon Lovell RN [facility] Kaba RN Position: [facility] RN [...] (General Medicine) Member Role: PCP Address: Address: [address] [place] [address]- Name: Ning Rolon RN Position: [facility] Role: Primary Care Nurse Address: Address: [address] [place] [address]- Name: Siomara Patricia RN Position: [facility] PCO RN Member Role: Primary Care Nurse Name: Neeta Painter RN Position: [facility] RN Member Role: Primary Care Nurse Name: Edith Drummond RN Position: [facility] RN Member Role: Primary Care Nurse Name: Bailey Espinal RN Position: [facility] QUAN Nurse Member Role: Primary [...] Yarely Richards RN Position: [facility] Desktop Support Specialist Member Role: Primary Care Nurse Name: Oralia Massey RN Position: [facility] RN Member Role: Primary Care Nurse Name: Rich WILSON pee Position: [facility] RN Member [...] Lisa Blanton RN Position: [facility] Desktop Support Specialist Member Role: Primary Care Nurse Name: [...] Janis Morris RN Position: [facility] Desktop Support Specialist Member Role: Primary Care Nurse Name: Darrian Chang RN Position: [facility] Desktop Support Specialist Member Role: Primary Care Nurse Name: Jerry Mcneill RN Position: [facility] RN Member Role: Primary Care Nurse Care Team Related Persons Name: IVAN VILLASENOR Address: [place] [address] Name: REYNALDO KAUR Address: home [address] [place] [address] Name: EMMA SERRANO Address: [address] [address] Name: PATRICK MATA Address: home [address] [place] [address] Name: FARIDEH POPE Address: [place] [address]
--- OUTSIDE RECORDS SUMMARY | 2022-08-31 01:12 | XMS_ITS | Continuity of Care Document ---
Author Name Unknown Organization [facility] MANA[facility] Oncolog y Address [address] [place] [address]- Care Team Providers Care Practicing Dermatologist Name Role Phone Jerica Chaparrita DO Primary Care Physician ( [phone] Encounter [facility] [place] [facility] Date(s): 07/02/20 - 08/01/20 [facility] SOLID WASTE DISPOSAL MANAGER Oncology [address] [place], [place] [address] Allergies, Adverse Reactions, Alerts Substance [...] Refills, Soft Stop, 04/09/20 13:16:00 EST, [facility], Partial [...] 08/14/20 14:34:00 EDT, 07/31/20 14:34:00 EDT, Tablet, [facility], Partialfill upon patient request if the prescription is for a... Start Date: 07/31/20 Stop Date: 08/14/20 Status: Ordered ondansetron 4 mg oral tablet, disintegrating = 4 mg, By Mouth, Every 6 hours, PRN Nausea & Vomiting, # 90 tablet, 0 Refills, Maintenance, 04/02/20 9:29:00 EST, Tablet, [facility], Partial fill upon patient request if the prescription is for a schedule II opioid drug., 154.94, cm, 0... Start Date: 04/02/20 Status: Ordered oxyCODONE 10 mg oral tablet See Instructions, 1 tablet By Mouth 5 times per day for 7 days, per pain services recommedations, #35 tablet, 0 Refills, Maintenance, 06/20/20 8:49:00 EDT, Tablet, [facility]acy [facility][id number], Partial fill upon patient request if the [...] 08/30/17 8:21:42 EDT, Route to Pharmacy Electronically, [id number], [facility]acy [facility][id number] Start Date: 08/30/17 Status: Ordered Tums 500 mg oral tablet, chewable 500 mg, 1, tablet, Chew, Every 4 hours, PRN, # 180 tablet, Refills 0, Tot. Refills 0, Maintenance, Dyspepsia, 06/21/18 11:05:15 EDT, Route to Pharmacy Electronically, [id number], [facility] Start Date: 06/21/18 Status: Ordered Vancomycin [...] WITH PRO LONGED DEPRESSIVE REACTION(Confirmed) 02/03/07 Active [facility] Team Senior Level [...]
--- OUTSIDE RECORDS SUMMARY | 2022-08-31 01:12 | XMS_ITS | Continuity of Care Document ---
Author Name Unknown Organization [facility] COMM[facility]ION[facility] Oncolog y Address [address] [place] [address]- Care Team Providers Care Algology Teacher Name Role Phone Chaparrita Pizano DO Primary Care Physician [place] [facility]s): [place]/07[place]20 - 02/06/20 [facility] POLICE COMMISSIONER Oncology [address] [place] [address] Allergies, Adverse Reactions, Alerts [...] 11:42:54 EDT, Aerosol, Route to Pharmacy Electronically, [id number], [facility]acy [facility][id number], Compound Start Date: 06/10/17 Status: Ordered [...] Refills, Maintenance, 05/02/19 10:52:00 EDT, [facility]/pharmacy #[id number], 155.9, cm, 04/26/19 9:14:00 EDT, Height... [...] 05/05/18 9:38:51 EDT, Route to Pharmacy Electronically, [id number]... Start Date: 05/05/18 Status: Ordered Insulin Glargine [...] Refills, Maintenance, 04/27/19 16:33:00 EDT, [facility]/pharmacy #[id number], 155.9, cm, 04/26/19 9:14:00 EDT, Height, [...] each, 2 Refills, Maintenance, 12/05/19 20:53:00 EDT, [facility], 155, cm, 08/20/19 16:31:00 [...] 0, Tot. Refills 0, Maintenance, for pain, 02/05/20 8:04:00 EST, Route to Pharmacy Electronically, [facility]/pharmacy #[id number], Partial fillupon patient request, 155, cm, 08/20/19 16:31:00 ED... Start Date: 02/05/20 Status: Ordered potassium chloride 8 mEq (600 [...] 08/30/17 8:21:42 EDT, Route to Pharmacy Electronically, [id number], [facility]acy [facility][id number] Start Date: 08/30/17 Status: Ordered tiZANidine [...] 06/21/18 11:05:15 EDT, Route to Pharmacy Electronically, [id number], [facility] Start Date: 06/21/18 [...] WITH PRO LONGED DEPRESSIVE REACTION(Confirmed) 02/03/07 Active [facility] Team Senior Level [...]
--- OUTSIDE RECORDS SUMMARY | 2022-08-31 01:12 | XMS_ITS | Continuity of Care Document ---
Author Name Unknown Organization [facility] Address [address] [place] [address]- Care Team Providers Care Dielectric Press Operator Name Role Phone Jerica Chaparrita DO Primary Care Physician Encounter [facility] [place] Date(s): 12/04/20 - 01/03/21 [facility] [address] [place] [address]- Attending Physician: Jamie Gregorio Admitting Physician: AdmJamie hernandez Referring Physician: Admtr ArJacey Allergies, Adverse Reactions, Alerts Substance Reaction Severity Status doxycycline mouth swelling Active ceftriaxone hives Active morphine 1, 2, 3 hives Active Compazine shortness of breath Active Tylenol hives Active penicillin throat swelling Rash Persistent Severe Active famotidine vomiting Active iodine topical swelling itching Active Pepcid vomitng Active Zofran 4 can only be given w/ benadryl hives Active Levaquin tingling in mouth, rash Acti ve Adhesive Bandage skin excoriation hives Active Seafood Anaphylactic shock d ue to adverse food reaction Severe Active Reglan severe restless legs Active Contrast [...] to receive vaccine 2Admin Note: manufactured by [employer] Medications albuterol 0.042% inhalation solution 3 [...] 08/31/21 13:21:00 EDT, 08/31/20 13:21:00 EDT, Tablet, [facility]/pharmacy #[id number], Partial fill upon patient request... Start Date: [...] 08/31/22 13:22:00 EDT, 08/31/20 13:21:00 EDT, Syrup, [facility]/pharmacy #[id number], Partial fill upon [...] 0 Refills, Maintenance, 04/02/20 9:29:00 EST, Tablet, [facility], Partial fill upon patient request if [...] tablet, 1 Refills, Maintenance, 08/31/20 13:22:00 EDT, [facility]/pharmacy #[id number], Partial fill upon [...] 08/30/17 8:21:42 EDT, Route to Pharmacy Electronically, [id number], [facility]/pharmacy #[id number] Start Date: 08/30/17 Status: Ordered Tums 500 mg oral tablet, chewable 500 mg, 1, tablet, Chew, Every 4 hours, PRN, # 180 tablet, Refills 0, Tot. Refills 0, Maintenance, Dyspepsia, 06/21/18 11:05:15 EDT, Route to Pharmacy Electronically, [id number], [facility] Start Date: 06/21/18 Status: [...] WITH PRO LONGED DEPRESSIVE REACTION(Confirmed) 02/03/07 Active [facility] Emeral d Team [...]
--- OUTSIDE RECORDS SUMMARY | 2022-08-31 01:12 | XMS_ITS | Continuity of Care Document ---
Author Name Unknown Organization [facility] ter Address [address] [place] [address]- Care Team Providers Care Circuit Judge Name Role Phone Jerica Chaparrita DO Primary Care Physician Encounter [facility] Date(s): 11/06/20 - 11/07/[address] [address]- Encounter Diagnosis Migraine(Final) - 11/07/20 Discharge Disposition: A-D/C Home Attending Physician: Tayler Vilchis MD Admitting Physician: Tayler Vilchis MD Referring Physician: Not on Staff, Referring [...] to receive vaccine 2Admin Note: manufactured by [employer] Medications albuterol 0.042% inhalation solution 3 [...] 08/31/21 13:21:00 EDT, 08/31/20 13:21:00 EDT, Tablet, [facility]/pharmacy #[id number], Partial fill upon patient request... Start Date: [...] 08/31/22 13:22:00 EDT, 08/31/20 13:21:00 EDT, Syrup, [facility]/pharmacy #[id number], Partial fill upon patient [...] 0 Refills, Maintenance, 04/02/20 9:29:00 EST, Tablet, [facility], Partial fill upon patient [...] tablet, 1 Refills, Maintenance, 08/31/20 13:22:00 EDT, [facility]/pharmacy #[id number], Partial fill upon patient [...] 08/30/17 8:21:42 EDT, Route to Pharmacy Electronically, [id number], [facility]/pharmacy #[id number] Start Date: 08/30/17 Status: Ordered Toradol Inj 10 mg, Injection, IV Push Slowly, Once, STAT, 11/07/20 10:41:00 EDT, Stop date 11/07/20 10:41:00 EDT Start Date: 11/07/20 Stop Date: 11/07/20 Status: Completed Tums 500 mg oral tablet, chewable 500 mg, 1, tablet, Chew, Every 4 hours, PRN, # 180 tablet, Refills 0, Tot. Refills 0, Maintenance, Dyspepsia, 06/21/18 11:05:15 EDT, Route to Pharmacy Electronically, [id number], [facility] 3 Start Date: 06/21/18 Status: [...] WITH PRO LONGED DEPRESSIVE REACTION(Confirmed) 02/03/07 Active [facility] d Team Senior Level [...] Exam Date Time Procedure Performing Provider Status 11/06/20 7:08 PM Chest 2 Views Frontal and Lat Mainor Quezada; Esther (Verified) Notes: (Chest 2 Views Frontal and Lat) Reason For Exam: Chest Pain;Other: RESULT: Chest 2 Views Frontal and Lat Chest 2 Views Frontal and Lat Hx of Present Illness: pt co migraine since 399, typical migraine meds not helping, dizziness, center cp, high blood sugars for 3 days; Reason: Other:; Chest Pain; Clinical Question(s): Other: COMPARISON: 07/31/2020 FINDINGS: LINES AND TUBES: Right-sided Mediport with tip at the cavoatrial junction. LUNGS AND PLEURA: Clear lungs. Normal pulmonary vascularity. No pleural effusion. No pneumothorax. HEART, MEDIASTINUM AND LISA: Heart is normal in size. Normal upper mediastinal and hilar contour. BONES AND SOFT TISSUES: No acute abnormality. IMPRESSION: No acute abnormality. WSN: [id number] Ordering Physician: Craig Valdez Dictated By: Kris [place]ont MD Dictated Date/Time: 11/06/20 7:11 pm Reviewed By: Kris Dumont MD Signed By: Kris [place] MD Signed Date/Time: 11/06/20 7:11 pm Transcribed By: DEIDRE Transcribed Date/Time: 11/06/20 7:09 pm Vital Signs Most recent to oldest [Reference Range]: 1 2 3 Oxygen Saturation [94-100 %] 98 % (11/07/20 2:28 PM) 99 % (11/07/20 9:58 AM) 100 % (11/07/20 5:24 AM) Pulse Rate [55-90 bpm] 77 bpm (11/07/20 2:28 PM) 78 bpm (11/07/20 9:58 AM) 76 bpm (11/07/20 5:24 AM) Blood Pressure [90-138/55-84 mm Hg] 133/102mm Hg (11/07/20 2:28 PM) 153/107mm Hg *H* (11/07/20 9:58 AM) 150/90mm Hg *H* (11/07/20 5:24 AM) Respiratory Rate [16-30 br/min] 18 br/min (11/07/20 2:28 PM) 18 br/min (11/07/20 11:36 AM) 18 br/min (11/07/20 9:58 AM) Temperature [96.8-100.4 DegF] 98.9 DegF (11/07/20 2:28 PM) 98.4 DegF (11/07/20 9:58 AM) 98.1 DegF (11/07/20 5:24 AM) Mode of Delivery (Oxygen) Room air (11/07/20 2:28 PM) Room air (11/07/20 9:58 AM) Room air (11/07/20 5:24 AM) Blood pressure sites Arm, right (11/07/20 2:28 PM) Arm, right (11/07/20 9:58 AM) Arm, right (11/07/20 5:24 AM) Temperature Route Oral (11/07/20 2:28 PM) Oral (11/07/20 9:58 AM) Oral (11/07/20 5:24 AM) Social History Social History Type Response Smoking Status Former smoker; Other : quit 04/2015; entered on: 01/30/16 Sex Female
--- OUTSIDE RECORDS SUMMARY | 2022-08-31 01:12 | XMS_ITS | Continuity of Care Document ---
Author Name Unknown Organization [facility] ter Address [address] [place] [address]- Care Team Providers Care Coat Operator Insulator Name Role Phone Chaparrita Pizano DO Primary Care Physician ( [phone] Encounter [facility] [place] Date(s[place] 12/05/21 - 12/12/[address] [address]- Encounter Diagnosis Partial small bowel obstruction(Final) - 12/05/21 Abdominal pain(Final) - 12/05/21 Discharge Disposition: A-D/C Home Attending Physician: Ilir Alvarez MD Admitting Physician: Anshul French MD Referring Physician: Not on Staff, Referring [...] ue to adverse food reaction Severe Active Lyrica Angioedema Active Lantiseptic Skin Protectant [...] to receive vaccine 2Admin Note: manufactured by [employer] Medications albuterol 0.042% inhalation solution 3 [...] 09/08/21 13:21:00 EDT, Route to Pharmacy Electronically, [facility], Partial fill upon patient request if the prescr... Start Date: 09/08/21 Stop Date: 10/08/21 Status: Ordered HYDROmorphone 1 mg/mL oral liquid 4 mL = 4 mg, By Mouth, Every 6 hours, for 7 days, TAKE 4 ML BY MOUTH EVERY 6 HOURS NEEDED, # 112mL, 0 Refills, Acute 12/19/21 12:22:00 EDT, 12/12/21 12:22:00 EDT, Liquid, Partial fill upon patient request if the prescription is for a schedule II o... Start Date: 12/12/21 Stop Date: 12/19/21 Status: Ordered HYDROmorphone Inj 4 mg, Injection, IV Push Slowly, Every 6 hours, PRN for Pain , Severe, Routine, 12/05/21 23:55:00 EDT Start Date: 12/05/21 Stop Date: 12/13/21 Status: Discontinued Insulin Glargine = 35 units, Subcutaneous Injection, [...] 0 Refills, Maintenance, 04/02/20 9:29:00 EST, Tablet, [facility], Partial fill upon [...] release 120 mg, CR Capsule, By Mouth, 12/12/21 9:00:00 EDT Start Date: 12/12/21 Stop Date: 12/12/21 Status: Completed Senna Plus 50 mg-8.6 mg [...] 06/21/18 11:05:15 EDT, Route to Pharmacy Electronically, [id number], [facility] Start Date: 06/21/18 Status: [...] WITH PROLONGED DEPRESSIVE REACTION Confirmed 02/03/[address] [facility] Team Senior Level Patient Confirmed Active ASTHMA [...] Exam Date Time Procedure Performing Provider Status 12/06/21 4:57 PM Small Bowel Series Toño , Rowan; Au th (Verified) Notes: (Small Bowel Series) Reason For Exam: pSBO;Other: RESULT: Small Bowel Series SMALL BOWEL SERIES, 6 IMAGES History: Small bowel obstruction. COMPARISON: 09/01/2021 Sisal Operator images demonstrate surgical clips in the right upper quadrant from a remote cholecystectomy as well as evidence of remote remote anterior abdominal wall hernia repair with mesh. Following oral administration of contrast material, images were obtained at 40 minutes, 1 hour 40 minutes, and 3 hours 40 minutes. The stomach is unremarkable. Small bowel loops demonstrate normal course and caliber, without filling defect, stricture, mass effect, or other abnormality. Contrast reaches the mid jejunum at 1 hour 40 minutes and is noted within the colon to the level of the proximal transverse segments at 3 hours 40 minutes. The region of the terminal ileum appears normal. The included portion ofthe colon does not demonstrate any abnormality. IMPRESSION: No evidence of obstruction. Normal small bowel study. Remote cholecystectomy and ventral hernia repair with mesh. WSN: [id number] Ordering Physician: Mario Lal Dictated By: Kris Winn MD Dictated Date/Time: 12/07/21 4:07 pm Reviewed By: Kris Winn MD Signed By: Kris Winn MD Signed Date/Time: 12/07/21 4:07 pm Transcribed By: DEIDRE Transcribed Date/Time: 12/07/21 4:03 pm Vital Signs Most recent to oldest [Reference Range]: 1 2 3 Height 155 cm (12/12/21 7:00 AM) 155 cm (12/12/21 5:26 AM) 155 cm (12/12/21 1:09 AM) Weight 132 kg (12/06/21 3:44 AM) Oxygen Saturation [94-100 %] 98 % (12/12/21 11:00 AM) 95 % (12/12/21 7:00 AM) 99 % (12/12/21 5:26 AM) Pulse Rate [55-90 bpm] 82 bpm (12/12/21 11:00 AM) 77 bpm (12/12/21 9:29 AM) 77 bpm (12/12/21 7:00 AM) Body Mass Index [18.5-24.99 kg/m2] 54.94 kg/m2 *>HHI* (12/06/21 3:44 AM) Blood Pressure [90-138/55-84 mm Hg] 127/64mm Hg (12/12/21 11:00 AM) 148/82mm Hg *H* (12/12/21 9:29 AM) 148/82mm Hg *H* (12/12/21 7:00 AM) Respiratory Rate [16-30 br/min] 16 br/min (12/12/21 12:19 PM) 16 br/min (12/12/21 11:49 AM) 18 br/min (12/12/21 11:00 AM) Temperature [96.8-100.4 DegF] 98.4 DegF (12/12/21 11:00 AM) 99.1 DegF (12/12/21 7:00 AM) 98.4 DegF (12/12/21 5:26 AM) Mode of Delivery (Oxygen) Room air (12/12/21 11:00 AM) Room air (12/12/21 7:00 AM) Room air (12/12/21 5:26 AM) Blood pressure sites Arm, left (12/12/21 11:00 AM) Arm, left (12/12/21 7:00 AM) Arm, left (12/12/21 5:26 AM) Temperature Route Oral (12/12/21 11:00 AM) Oral (12/12/21 7:00 AM) Oral (12/12/21 5:26 AM) Dry Weight 132 kg (12/06/21 3:44 AM) Weight Obtained Via Bed scale (12/06/21 3:44 AM) Social History Social History Type Response Smoking Status Former smoker; Other : quit 04/2015; entered on: 01/30/16 Sex Note * BHSPowerscribe , CIS S: TRANSCRIBE Kris Winn MD: VERIFY Event Display: Result: Authored Date: [id number] SMALL BOWEL SERIES, 6 IMAGES History: Small bowel obstruction. COMPARISON: 09/01/2021 Sisal Operator images demonstrate surgical clips in the right upper quadrant from a remote cholecystectomy as well as evidence of remote remote anterior abdominal wall hernia repair with mesh. Following oral administration of contrast material, images were obtained at 40 minutes, 1 hour 40 minutes, and 3 hours 40 minutes. The stomach is unremarkable. Small bowel loops demonstrate normal course and caliber, without filling defect, stricture, mass effect, or other abnormality. Contrast reaches the mid jejunum at 1 hour 40 minutes and is noted within the colon to the level of the proximal transverse segments at 3 hours 40 minutes. The region of the terminal ileum appears normal. The included portion ofthe colon does not demonstrate any abnormality. IMPRESSION: No evidence of obstruction. Normal small bowel study. Remote cholecystectomy and ventral hernia repair with mesh. WSN: [id number] Ordering Physician: Mario Lal Dictated By: Kris Winn MD Dictated Date/Time: 12/07/21 4:07 pm Reviewed By: Kirs Winn MD Signed By: Kris Winn MD Signed Date/Time: 12/07/21 4:07 pm Transcribed By: DEIDRE Transcribed Date/Time: 12/07/21 4:03 pm Patient Care team information Personnel Name: Chaparrita Pizano DO Address: Address: [address] [place] [address] [[email or web address]]
--- OUTSIDE RECORDS SUMMARY | 2022-08-31 01:12 | XMS_ITS | Continuity of Care Document ---
Author Name Unknown Organization [facility] ter Address [address] [place] [address]- Care Team Providers Care Corporate Statistical Financial Analyst Name Role Phone Jerica Chaparrita DO Primary Care Physician ( [phone] Encounter [facility] [place] Date(s): 04/23/20 - 05/01/[address] [address] Encounter Diagnosis Nausea and vomiting(Final) - 04/23/20 Discharge Disposition: A-D/C Home Attending Physician: Nevin Martel MD Admitting Physician: Lisa Rea MD Referring Physician: Not on Staff, Referring [...] 1 02/02/07 Given 1Admin Note: manufactured by [employer] Medications albuterol 0.042% inhalation solution 3 [...] Acute05/02/20 9:28:00 EDT, 04/02/20 9:28:00 EST, Tablet, [facility], Partial fill upon patient request [...] 0.5 mg, Injection, IV Push Slowly, Every 12 hours, PRN for Pain , Severe, Routine, 04/30/20 8:48:00EDT Start Date: 04/30/20 Stop Date: 05/02/20 Status: Discontinued diphenhydrAMINE 12.5 mg/5 mL oral liquid 10 mL = 25 mg, By Mouth, Every 4 hours, PRN Itch, # 120 mL, 1 Refills, Acute 05/07/20 0:00:00 EDT, 04/09/20 6:53:00 EST, Liquid, [facility], Partial fill upon [...] 0 Refills, Maintenance, 04/03/20 13:23:00 EST, Solution, [id number], Partial fill upon patient request if the prescription is for a schedule II opioid drug., 154.94, cm, 04/03/20 1... Start Date: 04/03/20 Status: Ordered losartan 50 mg oral tablet 50 mg, Tablet, By Mouth, 05/01/20 9:00:00 EDT Start Date: 05/01/20 Stop Date: 05/01/20 Status: Completed losartan 50 mg oral tablet 50 mg, [...] Status: Ordered oxyCODONE 5 mg oral tablet 20 mg, Tablet, By Mouth, Every 6 hours, PRN for Pain , Severe, Routine, 04/26/20 11:51:00 EST Start Date: 04/26/20 Stop Date: 05/02/20 Status: Discontinued propranolol 120 mg oral capsule, extended release 1 capsule = 120 mg, By Mouth, Daily at bedtime, # 30 capsule, 5 Refills, Maintenance, 01/17/18 9:48:32 EST, CR Capsule, Increasing dose. Start Date: 01/17/18 Stop Date: 07/16/18 Status: Ordered propranolol 60 mg oral capsule, extended release 120 mg, CR Capsule, By Mouth, Hold for: SBP<100, HR<60, 04/30/20 21:00:00 EDT Start Date: 04/30/20 Stop Date: 04/30/20 Status: Completed Senna Plus 50 mg-8.6 mg oral tablet 2 tablet, By Mouth, Daily at bedtime, Maintenance, 10/04/18 16:17:29 EDT, Tablet Start Date: 10/04/18 Status: Ordered simvastatin 40 mg oral tablet 40 mg, 1, tablet, By Mouth, Daily at bedtime, # 90 tablet, Refills 1, Tot. Refills 1, Maintenance, 08/30/17 8:21:42 EDT, Route to Pharmacy Electronically, [id number], [facility][id number] Start Date: 08/30/17 Status: Ordered Tums 500 mg oral tablet, chewable 500 mg, 1, tablet, Chew, Every 4 hours, PRN, # 180 tablet, Refills 0, Tot. Refills 0, Maintenance, Dyspepsia, 06/21/18 11:05:15 EDT, Route to Pharmacy Electronically, [id number], [facility] Start Date: 06/21/18 [...] WITH PRO LONGED DEPRESSIVE REACTION(Confirmed) 02/03/07 Active [facility] Emeral d Team Senior Level Patient(Confirmed) Active ASTHMA(Confirmed) 02/03/07 Active Bipolar disorder(Confirmed) Active Morbid obesity with BMI of 5 0.0-59.9, adult(Confirmed) Active Status post total hysterecto my 03/22/06, pathology was benign. Unless there is a history of SHELYL III or cancer, Pap smears are no [...] Results Orders for Microbiology Reports Name Date Anaerobic Culture (ANAEROBIC CULTURE) 12/04 Sterile Body Fluid Culture W / Gram Smear (Culture Sterile Body Fluid w/ Gram Smear) 04/23/20 Microbiology Reports TEST:Anaerobic Culture STATUS:Auth (Verified) BODY SITE: SOURCE:ABDOMI COLLECTED DATE/TIME:04/23/20 10:55 AM Anaerobic Culture SPECIMEN DESCRIPTION : ABDOMINAL FLUID SPECIAL REQUESTS : PLEASE NOTE THAT CULTURE RESULTS MAY BE COMPROMISED BY THE LIMITED VOLUME OF SPECIMEN RECEIVED CULTURE : STAPH. SPECIES, NOT STAPH. AUREUS ISOLATED FROM BROTH ONLY NO ANAEROBES ISOLATED CRITICAL VALUE CALLED AND VERIFIED BY READBACK FOR: RINKU BAGLEY, EMP ID [id number], S1, 04/29/20 AT 0827 BY [employer] 701. REPORT STATUS : FINAL 05/01/2020 ORGANISM STAPH. SPECIES, NOT STAPH. AUREUS ISOLATED FROM BROTH ONLY METHOD MIN. INHIB. CONC. (MCG/ML) CIPROFLOXACIN SUSCEPTIBLE CLINDAMYCIN RESISTANT ERYTHROMYCIN RESISTANT INDUCIBLE CLINDAMYCI POSITIVE LEVOFLOXACIN SUSCEPTIBLE RIFAMPIN SUSCEPTIBLE RIFAMPIN RIFAMPIN SHOULD NOT BE USED ALONE FOR ANTIMICROBIAL RIFAMPIN THERAPY. TRIMETH/SULFAMETHOX SUSCEPTIBLE VANCOMYCIN SUSCEPTIBLE TEST:Sterile Fluid Culture STATUS:Auth (Verified) BODY SITE: SOURCE:ABDOMI COLLECTED DATE/TIME:04/23/20 10:55 AM Sterile Fluid Culture SPECIMEN DESCRIPTION : ABDOMINAL FLUID SPECIAL REQUESTS : PLEASE NOTE THAT CULTURE RESULTS MAY BE COMPROMISED BY THE LIMITED VOLUME OF SPECIMEN RECEIVED GRAM STAIN : 4+ POLYMORPHONUCLEAR LEUKOCYTES NO ORGANISMS SEEN CULTURE : NO GROWTH 2 DAYS REPORT STATUS : FINAL 04/25/2020 Radiology Reports * Exam Date Time Procedure Performing Provider Status 04/24/20 12:15 AM Small Bowel Series Pili H[place]; [facility] (Verified) Notes: (Small Bowel Series) Reason For Exam: Pain RESULT: Small Bowel Series Small Bowel Series REASON: Pain question bowel obstruction COMPARISON: CT from 04/23/2020 TECHNIQUE: AP supine vice president talent management radiographs of the abdomen were obtained. Subsequently the patient was given enteric contrast and AP supine radiographs of the abdomen were obtained one hour and 40 minutesand approximately 4 hours following contrast. No fluoroscopic imaging was performed. FINDINGS: A total of 6 images were obtained. On vice president talent management images there are surgical clips in the right upper quadrant. There are multiple mesh anchors present. There is a nonobstructive bowel gas pattern. There is no evidence of pneumoperitoneum. Enteric contrast reaches the large bowel by 1 hour and 40 minutes after ingestion and by the 4 hourtime point is present throughout the large bowel to the rectum. No significantly dilated loops of small bowel are present. No evidence of extra enteric contrast. Lung bases are clear. No acute osseous abnormality. IMPRESSION: No evidence of bowel obstruction. WSN: [id number] Ordering Physician: Haley Johnson Dictated By: Jorden Genao MD Dictated Date/Time: 04/24/20 9:26 am Reviewed By: Jorden Genao MD Signed By: Jorden Genao MD Signed Date/Time: 04/24/20 9:26 am Transcribed By: DEIDRE Transcribed Date/Time: 04/24/20 9:18 am * Exam Date Time Procedure Performing Provider Status 04/23/20 2:20 AM Abdomen Series W/ PA Chest Rick Salamanca (Verified) Notes: (Abdomen Series W/ PA Chest) Reason For Exam: Pain RESULT: Abdomen Series W/ PA Chest Abdomen Series W/ PA Chest INDICATION: Abdominal pain, nausea and vomiting. History of postoperative bowel obstruction after ovarian surgery. COMPARISON: 04/04/2020 FINDINGS: LINES AND TUBES: Right jugular Port-A-Cath tip is in good position at the superior cavoatrial junction. Right upper extremity PICC tip is in the upper right atrium. LUNGS AND PLEURA: Clear lungs. Normal vascularity. No pleural effusion. No pneumothorax. HEART, MEDIASTINUM AND LISA: Normal. BOWEL GAS PATTERN AND SOFT TISSUES: Normal bowel gas pattern. No pneumoperitoneum. No abnormal calcifications. BONES: Normal bones. IMPRESSION: No acute abnormality. Specifically, there is no evidence of intestinal obstruction or perforation. WSN: [id number] Ordering Physician: Jasmine Hussein Dictated By: Jimbo Hopson MD Dictated Date/Time: 04/23/20 7:53 am Reviewed By: Jimbo Hopson MD Signed By: Jimbo Hopson MD Signed Date/Time: 04/23/20 7:53 am Transcribed By: DEIDRE Transcribed Date/Time: 04/23/20 7:48 am Vital Signs Most recent to oldest [Reference Range]: 1 2 3 Height 180 cm (04/30/20 7:05 PM) 180 cm (04/30/20 3:48 PM) 180 cm (04/30/20 4:22 AM) Weight 123 kg (04/23/20 6:00 PM) Oxygen Saturation [94-100 %] 100 % (05/01/20 7:00 AM) 100 % (04/30/20 7:05 PM) 97 % (04/30/20 3:48 PM) Pulse Rate [55-90 bpm] 79 bpm (05/01/20 7:00 AM) 85 bpm (04/30/20 8:02 PM) 85 bpm (04/30/20 7:05 PM) Body Mass Index [18.5-24.99] 37.96 *>HHI* (04/23/20 6:00 PM) Blood Pressure [90-138/55-84 mm Hg] 119/77mm Hg (05/01/20 8:06 AM) 118/77mm Hg (05/01/20 7:00 AM) 138/82mm Hg (04/30/20 8:02 PM) Respiratory Rate [16-30 br/min] 17 br/min (05/01/20 12:24 PM) 16 br/min (05/01/20 12:16 PM) 16 br/min (05/01/20 11:24 AM) Temperature [96.8-100.4 DegF] 98.2 DegF (05/01/20 7:00 AM) 98.4 DegF (04/30/20 7:05 PM) 98.2 DegF (04/30/20 3:48 PM) Mode of Delivery (Oxygen) Room air (05/01/20 7:00 AM) Room air (04/30/20 7:05 PM) Room air (04/30/20 3:48 PM) Blood pressure sites Arm, left (05/01/20 7:00 AM) Arm, left (04/30/20 7:05 PM) Arm, left (04/30/20 3:48 PM) Temperature Route Oral (05/01/20 7:00 AM) Oral (04/30/20 7:05 PM) Oral (04/30/20 3:48 PM) Dry Weight 123 kg (04/23/20 6:00 PM) Social History Social History Type Response Smoking Status Former smoker; Other : quit 04/2015; entered on: 01/30/16 Sex Female
--- OUTSIDE RECORDS SUMMARY | 2022-08-31 01:12 | XMS_ITS | Continuity of Care Document ---
Author Name Unknown Organization [facility] Address [address] [place] [address]- Care Team Providers Care Family Law Legal Assistant Name Role Phone Jerica Chaparrita DO Primary Care Physician Encounter [facility] [place] Date(s): 04/15/20 - 05/15/20 [facility] On[facility] [address], [place] [address] Allergies, Adverse Reactions, Alerts Substance Reaction Severity [...] 1 02/02/07 Given 1Admin Note: manufactured by [employer] Medications albuterol 0.042% inhalation solution 3 [...] 0 Refills, Maintenance, 04/03/20 13:23:00 EST, Solution, [id number], Partial fill upon patient request if the [...] 0 Refills, Soft Stop, 04/09/20 13:16:00 EST, [facility], Partial fill upon [...] 0 Refills, Maintenance, 04/02/20 9:29:00 EST, Tablet, [facility], Partial fill upon patient request if the prescription is for a schedule II opioid drug., 154.94, cm, 0... Start Date: 04/02/20 Status: Ordered oxyCODONE 10 mg oral tablet 2 tablet = 20 mg, By Mouth, Every 6 hours, PRN Pain , Severe, take 1 tab for less severe pain, # 56tablet, 0 Refills, Maintenance, 05/09/20 16:38:00 EDT, Tablet, [facility] #[id number], Partial fill upon patient request if the [...] 08/30/17 8:21:42 EDT, Route to Pharmacy Electronically, [id number], [facility][id number] Start Date: 08/30/17 Status: Ordered Tums 500 mg oral tablet, chewable 500 mg, 1, tablet, Chew, Every 4 hours, PRN, # 180 tablet, Refills 0, Tot. Refills 0, Maintenance, Dyspepsia, 06/21/18 11:05:15 EDT, Route to Pharmacy Electronically, [id number], [facility] Start Date: 06/21/18 Status: [...] WITH PRO LONGED DEPRESSIVE REACTION(Confirmed) 02/03/07 Active [facility] Emeral d Team Senior Level [...]
--- OUTSIDE RECORDS SUMMARY | 2022-08-31 01:13 | XMS_ITS | Continuity of Care Document ---
Author Name Unknown Organization [facility] ter Address [address] [place] [address]- Care Team Providers Care Director Behavioral Health Name Role Phone Darryl Pizano DOdavidradha Gupta Primary Care Physician Encounter [facility] Date(s): 11/13/21 - 02/12/[address] [address]- Attending Physician: Donald Murphy MD Admitting Physician: [...] to receive vaccine 2Admin Note: manufactured by [employer] Medications albuterol 0.042% inhalation solution 3 [...] 0 Refills, Maintenance, 04/02/20 9:29:00 EST, Tablet, [facility], Partial fill upon patient [...] 06/21/18 11:05:15 EDT, Route to Pharmacy Electronically, [id number], [facility] Start Date: 06/21/18 Status: Ordered Vitamin [...] WITH PROLONGED DEPRESSIVE REACTION Confirmed 02/03/07 Active [facility] [place] Team Senior Level Patient Confirmed Active ASTHMA [...] Team Personnel Name: Lola Belcher RN Position: [facility] RN Member Role: Primary Care Nurse Name: Jose Enrique Saul RN Position: [facility] RN Member Role: Primary Care Nurse Name: Symone Mckinnon RN Position: [facility] RN Member Role: Primary Care Nurse Name: Carolyn Pelaez RN Position: [facility] RN Member Role: Primary Care Nurse Name: Deanna Garcia RN Position: [facility] RN Member Role: Primary Care Nurse Name: Fanny Mixon RN Position: [facility] ED RN W/OE and Tasks Member Role: Primary Care Nurse Name: María Asfhord RN Position: [facility] AMB Nurse Member Role: Primary Care Nurse Name: Chanelle Hernandez RN Position: [facility] PCO RN Member [...] Member Role: Lifetime Consulting Physician Address: Address: [address] [place] [address], [address] [facility] [place], [place] [address] Name: Lashon Lovell RN Position: [facility] [...] Care Nurse Name: Deonna Murillo RN Position: [facility] RN Member Role: Primary Care Nurse Name: Felipa Diehl RN Position: [facility] HBO Wound Member Role: Primary Care Nurse Name: Evelin Powell RN Position: [facility] AMB Nurse Member Role: Primary Care Nurse Name: Deonna Pendleton RN Position: [facility] RN Member Role: Primary Care Nurse Name: Pili Kaba RN Position: [facility] GAGANDEEP RN W/OE and Tasks Member Role: Primary Care Nurse Name: Alejandro Yanes RN Position: [facility] RN Member Role: Primary Care Nurse Name: Stacey Díaz RN Position: [facility] SN RN Member Role: Primary Care Nurse Name: Jac Reese RN Position: [facility] RN Member Role: Primary Care Nurse Name: Celestine Schwartz RN Position: [facility] [...] Medicine) Member Role: PCP Address: Address: [address] [place] [address]- Name: Ning Rolon RN Position: [facility] RN Member Role: Primary Care Nurse Name: Rubi Carrasco RN Position: [facility] SN RN Member Role: Primary Care Nurse Name: Lauryn Holden RN Position: [facility] RN Member Role: Primary Care Nurse Name: Shen Silvestre RN Position: [facility] RN Member Role: [...] Member Role: Primary Care Nurse Address: Address: [address] [place] [address]- Name: Siomara Patricia [facility] RN Member Role: Primary Care Nurse Name: Neeta Painter RN Position: [facility] RN Member Role: Primary Care Nurse Name: Edith Drummond RN Position: [facility] RN Member Role: [...] Care Nurse Name: Mainor Devries RN Position: [facility] RN Member Role: Primary Care Nurse Name: Yarely Richards RN Position: [facility] Shopper Member Role: Primary Care Nurse Name: Oralia Massey RN Position: [facility] RN Member Role: Primary Care Nurse Name: Rich WILSON pee Position: [facility] RN Member Role: Primary Care Nurse Name: Taiwo Mcgregor RN Position: [facility] RN Member Role: Primary Care Nurse Name: Cally Funes RN Position: [facility] SN RN Member Role: Primary Care Nurse Name: Marina Osorio Position: [facility] RN Member Role: Primary Care Nurse Name: Lisa Blanton RN Position: [facility] Shopper Member Role: Primary Care Nurse Name: Danica Stuart RN Position: [facility] AMB Nurse Member Role: Primary Care Nurse Name: Shruthi Ray RN Position: [facility] RN Member Role: Primary Care Nurse Name: Abbe Choe RN Position: [facility] RN Supv Member Role: Primary Care Nurse Name: Farideh Cat LPN Position: [facility] RN Member Role: Primary Care Nurse Name: Janis Morris RN Position: [facility] Shopper Member Role: Primary Care Nurse Name: Darrian Chang RN Position: [facility] Shopper Member Role: Primary Care Nurse Name: Jerry Mcneill RN Position: [facility] RN Member Role: Primary Care Nurse Care Team Related Persons Name: IVAN VILLASENOR Address: [place] [address] Name: REYNALDO KAUR Address: home [address] [place] [address] Name: EMMA SERRANO Address: home [address] [address] Name: PATRICK MATA Address: home [address] [place] [address] Name: FARIDEH POPE Address: [place] [address]
--- OUTSIDE RECORDS SUMMARY | 2022-08-31 01:13 | XMS_ITS | Continuity of Care Document ---
Author Name Unknown Organization [facility] RESISTOR TESTING MACHINE OPERATOR Oncolog y Address [address] [place] [address]- Care Team Providers Care Product Applications Scientist Name Role Phone Jerica Chaparrita DO Primary Care Physician Encounter [facility] [place] Date(s): 04/22/20 - 05/22/20 [facility] RESISTOR TESTING MACHINE OPERATOR Oncology [address], [place] [address] Allergies, Adverse Reactions, Alerts Substance Reaction Severity [...] 1 02/02/07 Given 1Admin Note: manufactured by [employer] Medications albuterol 0.042% inhalation solution 3 [...] 13:23:00 EST, Solution, [facility]/pharmacy #[id number], Partial fill upon patient request if the [...] 0 Refills, Soft Stop, 04/09/20 13:16:00 EST, [facility], Partial [...] 9:29:00 EST, Tablet, [facility], Partial [...] 0 Refills, Maintenance, 05/20/20 9:20:00 EDT, Tablet, [facility]/pharmacy #[id number], Partial fill uponpatient request if the prescription [...] 08/30/17 8:21:42 EDT, Route to Pharmacy Electronically, [id number], [facility]/pharmacy #[id number] Start Date: 08/30/17 Status: Ordered Tums 500 mg oral tablet, chewable 500 mg, 1, tablet, Chew, Every 4 hours, PRN, # 180 tablet, Refills 0, Tot. Refills 0, Maintenance, Dyspepsia, 06/21/18 11:05:15 EDT, Route to Pharmacy Electronically, [id number], [facility] Start [...] WITH PRO LONGED DEPRESSIVE REACTION(Confirmed) 02/03/07 Active [facility] Emeral d Team Senior Level [...]
--- OUTSIDE RECORDS SUMMARY | 2022-08-31 01:13 | XMS_ITS | Continuity of Care Document ---
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 josh SHERIFF, tolerates with diphenhydramine 3Tolerates hydromorphone 4Tolerates [...] 11:42:54 EDT, Aerosol, Route to Pharmacy Electronically, [id number], [facility]/pharmacy #[id number], Compound Start Date: 06/10/17 Status: [...] capsule, 0 Refills, Maintenance, 05/02/19 10:52:00 EDT, [facility]/pharmacy #[id number], 155.9, cm, 04/26/19 9:14:00 EDT, [...] Refills, Soft Stop, 02/13/20 9:25:00 EST, Tablet, [facility]/pharmacy #[id number], Partial fill upon patient request if the [...] 05/05/18 9:38:51 EDT, Route to Pharmacy Electronically, [id number]... Start Date: 05/05/18 Status: Ordered Insulin Glargine Inj 0.6 mL = 60 units, Subcutaneous Injection, Daily at bedtime, 0 Refills, Maintenance, 08/20/19 18:48:00 EDT, Injection Start Date: 08/20/19 Status: Ordered LORazepam 0.5 mg oral tablet See Instructions, Take 1 tablet by mouth 1 hour prior to biopsy appointment, may repeat x1 if needed, # 2 tablet, 0 Refills, Maintenance, 04/27/19 16:33:00 EDT, [facility]/pharmacy #[id number], 155.9, cm, 04/26/19 9:14:00 EDT, [...] each, 2 Refills, Maintenance, 12/05/19 20:53:00 EDT, [facility], 155, cm, 08/20/19 16:31:00 [...] 02/19/20 14:40:00 EST, Route to Pharmacy Electronically, [facility]/pharmacy #[id number], Partial fill upon patient request, 155, cm, [...] 08/30/17 8:21:42 EDT, Route to Pharmacy Electronically, [id number], [facility]/pharmacy #[id number] Start Date: 08/30/17 Status: Ordered [...] 06/21/18 11:05:15 EDT, Route to Pharmacy Electronically, [id number], [facility] Start Date: [...]
--- OUTSIDE RECORDS SUMMARY | 2022-08-31 01:13 | XMS_ITS | Continuity of Care Document ---
Author Name Unknown Organization [facility] Address [address] [place] [address]- Care Team Providers Care Medical Physics Teacher Name Role Phone Jerica Chaparrita DO Primary Care Physician [place] [facility] Date(s): 10/21/20 - 11/20/20 [facility] [address] [place] [address]- Attending Physician: Jamie Gregorio Admitting Physician: AdmJamie [...] to receive vaccine 2Admin Note: manufactured by [employer] P[employer] Medications albuterol 0.042% inhalation solution 3 [...] 08/31/21 13:21:00 EDT, 08/31/20 13:21:00 EDT, Tablet, [facility]/pharmacy #[id number], Partial fill upon patient request... Start Date: [...] 0 Refills, Maintenance, 04/02/20 9:29:00 EST, Tablet, [facility], Partial fill upon patient [...] tablet, 1 Refills, Maintenance, 08/31/20 13:22:00 EDT, [facility]/pharmacy #[id number], Partial fill [...] 08/30/17 8:21:42 EDT, Route to Pharmacy Electronically, [id number], [facility]/pharmacy #[id number] Start Date: 08/30/17 Status: Ordered Tums 500 mg oral tablet, chewable 500 mg, 1, tablet, Chew, Every 4 hours, PRN, # 180 tablet, Refills 0, Tot. Refills 0, Maintenance, Dyspepsia, 06/21/18 11:05:15 EDT, Route to Pharmacy Electronically, [id number], [facility] Start Date: 06/21/18 Status: [...] PRO LONGED DEPRESSIVE REACTION(Confirmed) 02/03/07 Active [facility] Emeral d Team [...]
--- OUTSIDE RECORDS SUMMARY | 2022-08-31 01:13 | XMS_ITS | Continuity of Care Document ---
Author Name Unknown Organization [facility] CAMPUS SUPERVISOR Oncolog y Address [address] [place] [address]- Care Team Providers Care Registered Midwife Name Role Phone Chaparrita Pizano DO Primary Care Physician Encounter [facility] [place] Date(s): 02/13/20 - 03/14/20 [facility] CAMPUS SUPERVISOR Oncology [address] [place], [place] [address] Allergies, Adverse Reactions, Alerts [...] ue to adverse food reaction Severe Active Pepcid vomitng Active Levaquin tingling in mouth, rash Acti ve Nexium diarrhea, vomitting Active Nicotine Patch ana [...] 1 02/02/07 Given 1Admin Note: manufactured by [employer] Pasteur Medications albuterol CFC free 90 mcg/inh [...] 05/05/18 9:38:51 EDT, Route to Pharmacy Electronically, [id number]... Start Date: 05/05/18 Status: Ordered Insulin Glargine [...] 03/15/20 13:37:00 EST, 03/13/20 13:34:00 EST, Tablet, [facility]/pharmacy #[id number], Partial fill upon patient request if the [...] 03/04/20 8:13:00 EST, Route to Pharmacy Electronically, [facility]/pharmacy #[id number], Partial fill upon patient request, [...] 08/30/17 8:21:42 EDT, Route to Pharmacy Electronically, [id number], [facility]/pharmacy #[id number] Start Date: 08/30/17 Status: Ordered [...] 06/21/18 11:05:15 EDT, Route to Pharmacy Electronically, [id number], [facility] Start Date: 06/21/18 Status: [...] WITH PRO LONGED DEPRESSIVE REACTION(Confirmed) 02/03/07 Active [facility] Emeral d Team Senior Level [...]
--- OUTSIDE RECORDS SUMMARY | 2022-08-31 01:13 | XMS_ITS | Continuity of Care Document ---
Author Name Unknown Organization [facility] Address [address] [place] [address]- Care Team Providers Care Web Site Administrator Name Role Phone Darryl Pizano DOdavidradha Gupta Primary Care Physician Encounter [facility] Date(s): 12/28/21 - 05/07/[address] [address]- Attending Physician: Donald Murphy MD Admitting Physician: [...] to receive vaccine 2Admin Note: manufactured by [employer] P[employer] Medications albuterol 0.042% inhalation solution 3 [...] 03/12/22 12:08:00 EST, Route to Pharmacy Electronically, [facility] [...] 03/09/23 23:00:00 EST, 03/12/22 12:09:00 EST, Syrup, [facility], Partial [...] 03/09/23 23:00:00 EST, 03/12/22 12:10:00 EST, Patch, [facility], Partial [...] tablet, 0 Refills, Maintenance, 04/02/20 9:29:00 EST, [facility], Partial fill upon patient request if [...] 03/12/22 12:06:00 EST, Route to Pharmacy Electronically, [facility], Partial fill uponpatient request if the [...] 06/21/18 11:05:15 EDT, Route to Pharmacy Electronically, [id number], [facility] Start Date: 06/21/18 Status: Ordered Vitamin [...] WITH PROLONGED DEPRESSIVE REACTION Confirmed 02/03/07 Active [facility] [place] Team Senior Level Patient Confirmed Active ASTHMA [...] Personnel Name: Lola Belcher RN Position: [facility] RN Member Role: Primary Care Nurse Name: Jose Enrique Saul RN Position: [facility] RN Member Role: Primary Care Nurse Name: Symone Mckinnon RN Position: [facility] RN Member Role: Primary Care Nurse Name: Carolyn Pelaez RN Position: [facility] RN Member Role: Primary Care Nurse Name: Fanny Mixon RN Position: [facility] ED RN W/OE and Tasks Member Role: Primary Care Nurse Name: María Ashford RN Position: [facility] AMB Nurse Member Role: Primary Care Nurse Name: Chanelle Hernandez RN Position: [facility] AMB Nurse Member Role: Primary Care Nurse Name: Estelle García RN Position: [facility] RN Member Role: Primary Care Nurse Name: Deanne Rangel RN Position: [facility] RN Member Role: Primary Care Nurse Name: Carine Jimenez RN Position: [facility] SN RN Member Role: Primary Care Nurse Name: Jenelle Campo RN Position: [facility] RN Member Role: Primary Care Nurse Name: Keyla Godwin RN Position: [facility] RN Member Role: Primary Care Nurse Name: Yeimi Devine RN Position: [facility] RN Member Role: Primary Care Nurse Name: Mary Yan RN Position: [facility] RN Member Role: Primary Care Nurse Name: Iliana Pop RN Position: [facility] RN Member Role: Primary Care Nurse Name: Alcides Dueñas RN Position: [facility] RN Member Role: Primary Care Nurse Name: Lisa Beatty Position: [facility] Outreach Member Role: Lifetime Consulting Physician Name: Armida Beatty RN Position: [facility] RN Member Role: Primary Care Nurse Name: Deonna Beatty RN Position: [facility] RN Member Role: Primary Care Nurse Name: Roque Villasenor MD Position: [facility] Renal MD Member Role: Lifetime Consulting Physician Address: Address: [address] [place] [address], [address] [facility] [place] [address]- Name: Lashon Lovell RN Position: [facility] SN RN Member Role: Primary Care Nurse Name: Kristi Giraldo RN Position: [facility] RN Supv Member Role: Primary Care Nurse Name: Jerrod Casarez RN Position: [facility] RN Member Role: Primary Care Nurse Name: Shane Riley RN Position: [facility] RN Member Role: Primary Care Nurse Name: Isac Plascencia RN Position: [facility] RN Member Role: Primary Care Nurse Name: Rosalva Martin RN Position: [facility] RN Member Role: Primary Care Nurse Name: Sheela Matt RN Position: [facility] RN Member Role: Primary Care Nurse Name: Armida Ochoa RN Position: [facility] RN Member Role: Primary Care Nurse Name: Felipa Diehl RN Position: [facility] HBO Wound Member Role: Primary Care Nurse Name: Evelin Powell RN Position: [facility] AMB Nurse Member Role: Primary Care Nurse Name: Donald Murphy MD Position: [facility] Renal MD Member Role: Lifetime Consulting Physician Address: Address: [address] [place] [address] [address] [facility] [place] [place] [address]- Name: Deonna Pendleton RN Position: [facility] RN Member Role: Primary Care Nurse Name: Pili Kaba RN Position: [facility] RN Member Role: Primary Care Nurse Name: Alejandro Yanes RN Position: [facility] RN Member Role: Primary Care Nurse Name: Stacey Díaz RN Position: [facility] SN RN Member Role: Primary Care Nurse Name: Jac Reese RN Position: [facility] RN Member Role: Primary Care Nurse Name: Celestine Schwartz RN Position: [facility] RN Member Role: Primary Care Nurse Name: Neeta Carpenter RN Position: [facility] RN Member Role: Primary Care Nurse Name: Susie Estrada RN Position: [facility] RN Member Role: Primary Care Nurse Name: Inna Cantor RN Position: [facility] RN Member Role: Primary Care Nurse Name: Chaparrita Pizano DO Position: [facility] Physician (General Medicine) Member Role: PCP Address: Address: [address] [place] [address]- [place] Name: Ning Rolon RN Position: [facility] RN Member Role: Primary Care Nurse Name: Rubi Carrasco RN Position: [facility] SN RN Member Role: Primary Care Nurse Name: Lauryn Holden RN Position: [facility] RN Member Role: Primary Care Nurse Name: Jones Cervantes RN Position: [facility] RN Member Role: Primary Care Nurse Name: Olivia Caputo RN Position: [facility] RN Member Role: Primary Care Nurse Name: Brooklyn Jim RN Position: [facility] RN Member Role: Primary Care Nurse Name: Kimberly Santoro RN Position: [facility] RN Member Role: Primary Care Nurse Name: Haley Diamond RN Position: [facility] RN Member Role: Primary Care Nurse Name: Ashley Meléndez NP Position: [facility] PCO Associate Professional Member Role: Primary Care Nurse Address: Address: [address] [place] [address] [address] [place] [address]- [place] Name: Siomara Patricia RN Position: [facility] PCO RN Member Role: Primary Care Nurse Name: Neeta Painter RN Position: [facility] RN Member Role: Primary Care Nurse Name: Bailey Espinal RN Position: [facility] AMB Nurse Member Role: Primary Care Nurse Name: Brooklyn Ramsey RN Position: [facility] RN Member Role: Primary Care Nurse Name: Keyla Bright RN Position: [facility] RN Member Role: Primary Care Nurse Name: Beverley Tatum RN Position: [facility] RN Member Role: Primary Care Nurse Name: Mainor Devries RN Position: [facility] RN Member Role: Primary Care Nurse Name: Yarely Richards RN Position: [facility] C 13 Catapult Operator Member Role: Primary Care Nurse Name: Oralia Massey RN Position: [facility] RN Member Role: Primary Care Nurse Name: Cassie Villanueva RN Position: [facility] RN Member Role: Primary Care Nurse Name: Taiwo Mcgregor RN Position: [facility] RN Member Role: Primary Care Nurse Name: Cally Funes RN Position: [facility] RN Member Role: Primary Care Nurse Name: aMrina Osorio Position: [facility] RN Member Role: Primary Care Nurse Name: Lisa Blanton RN Position: [facility] C 13 Catapult Operator Member Role: Primary Care Nurse Name: Danica Stuart RN Position: [facility] AMB Nurse Member Role: Primary Care Nurse Name: Virginia Bacon RN Position: [facility] RN Member Role: Primary Care Nurse Name: Shruthi Ray RN Position: [facility] Onco RN Member Role: Primary Care Nurse Name: Abbe Choe RN Position: [facility] RN Supv Member Role: Primary Care Nurse Name: Farideh Cat LPN Position: [facility] RN Member Role: Primary Care Nurse Name: Janis Morris RN Position: [facility] C 13 Catapult Operator Member Role: Primary Care Nurse Name: Darrian Chang RN Position: [facility] C 13 Catapult Operator Member Role: Primary Care Nurse Name: Josef Woods RN Position: [facility] RN Member Role: Primary Care Nurse Name: Siomara Raphael RN Position: [facility] RN Member Role: Primary Care Nurse Name: Jerry Mcneill RN Position: [facility] RN Member Role: Primary Care Nurse Care Team Related Persons Name: IVAN VILLASENOR Address: [place] [address] Name: REYNALDO KAUR Address: home [address] [place] [address] Name: EMMA SERRANO Address: [address] [address] Name: PATRICK MATA Address: home [address] [place] [address] Name: FARIDEH POPE Address: [place] [address]
--- OUTSIDE RECORDS SUMMARY | 2022-08-31 01:13 | XMS_ITS | Continuity of Care Document ---
Author Name Unknown Organization [facility] ter Address [address] [place] [address]- Care Team Providers Care Manager Market Research Name Role Phone Darryl Pizano DOdavidradha Gupta Primary Care Physician Encounter [facility] [place] Date(s): 08/20/21 - 01/01/[address] [address]- Attending Physician: Donald Murphy MD Admitting Physician: [...] to receive vaccine 2Admin Note: manufactured by [employer] Medications albuterol 0.042% inhalation solution [...] 09/08/21 13:21:00 EDT, Route to Pharmacy Electronically, [facility], Partial fill upon patient [...] Refills, Maintenance, 04/02/20 9:29:00 EST, Tablet, [facility] 3, Partial fill upon patient [...] 06/21/18 11:05:15 EDT, Route to Pharmacy Electronically, [id number], [facility] 3 Start Date: 06/21/18 Status: [...] WITH PROLONGED DEPRESSIVE REACTION Confirmed 02/03/07 Active [facility] [place] Team Senior Level Patient Confirmed Active ASTHMA [...] Personnel Name: Lola Belcher RN Position: [facility] RN Member Role: Primary Care Nurse Name: Jose Enrique Saul RN Position: [facility] RN Member Role: Primary Care Nurse Name: Symone Mckinnon RN Position: [facility] RN Member Role: Primary Care Nurse Name: Carolyn Pelaez RN Position: [facility] RN Member Role: Primary Care Nurse Name: Deanna Garcia RN Position: [facility] RN Member Role: Primary Care Nurse Name: Fanny Mixon RN Position: [facility] ED RN W/OE and Tasks Member Role: Primary Care Nurse Name: María Ashford RN Position: [facility] AMB Nurse Member Role: Primary Care Nurse Name: Chanelle Hernandez RN Position: [facility] PCO RN Member Role: Primary Care Nurse Name: Estelle García RN Position: [facility] RN Member Role: Primary Care Nurse Name: Deanne Rangel RN Position: [facility] RN Member Role: Primary Care Nurse Name: Carine Jimenez RN Position: [facility] SN RN Member Role: Primary Care Nurse Name: Jenelle Campo RN Position: [facility] RN Member Role: Primary Care Nurse Name: Keyla Godwin RN Position: [facility] RN Member Role: Primary Care Nurse Name: Yeimi Devine RN Position: [facility] RN Member Role: Primary Care Nurse Name: Mary Yan RN Position: [facility] RN Member Role: Primary Care Nurse Name: Iliana Pop RN Position: [facility] RN Member Role: Primary Care Nurse Name: Alcides Dueñas RN Position: [facility] RN Member Role: Primary Care Nurse Name: Lisa Beatty Position: [facility] Outreach Member Role: Lifetime Consulting Physician Name: Armida Beatty RN Position: [facility] RN Member Role: Primary Care Nurse Name: Roque Villasenor MD Position: [facility] Renal MD Member Role: Lifetime Consulting Physician Address: Address: [address] [place] [address], [address] [facility] [place], [place] [address] Name: Lashon Lovell RN Position: [facility] SN RN Member Role: Primary Care Nurse Name: Kristi Giraldo RN Position: [facility] RN Supv Member Role: Primary Care Nurse Name: Jerrod Casarez RN Position: [facility] RN Member Role: Primary Care Nurse Name: Rosalva Martin RN Position: [facility] RN Member Role: Primary Care Nurse Name: Armida Ochoa RN Position: [facility] RN Member Role: Primary Care Nurse Name: Deonna Murillo RN Position: [facility] RN Member Role: Primary Care Nurse Name: Felipa Diehl RN Position: [facility] HBO Wound Member Role: Primary Care Nurse Name: Evelin Powell RN Position: [facility] AMB Nurse Member Role: Primary Care Nurse Name: Deonna Pendleton RN Position: [facility] RN Member Role: Primary Care Nurse Name: Pili Kaba RN Position: [facility] RN Member Role: Primary Care Nurse Name: Alejandro Yanes RN Position: [facility] RN Member Role: Primary Care Nurse Name: Stacey Díaz RN Position: [facility] SN RN Member Role: Primary Care Nurse Name: Jac Reese RN Position: [facility] RN Member Role: Primary Care Nurse Name: Celestine Schwartz RN Position: [facility] RN Member Role: Primary Care Nurse Name: Neeta Carpenter RN Position: [facility] RN Member Role: Primary Care Nurse Name: Susie Estrada RN Position: [facility] RN Member Role: Primary Care Nurse Name: Inna Cantor RN Position: [facility] RN Member Role: Primary Care Nurse Name: Chaparrita Pizano DO Position: [facility] Physician (General Medicine) Member Role: PCP Address: Address: [address] [place] [address]- Name: Ning Rolon RN Position: [facility] RN Member Role: Primary Care Nurse Name: Rubi Carrasco RN Position: [facility] SN RN Member Role: Primary Care Nurse Name: Lauryn Holden RN Position: [facility] RN Member Role: Primary Care Nurse Name: Shen Silvestre RN Position: [facility] RN Member Role: Primary Care Nurse Name: Jones Cervantes RN Position: [facility] RN Member Role: Primary Care Nurse Name: Olivia Caputo RN Position: [facility] RN Member Role: Primary Care Nurse Name: Brooklyn Jim RN Position: [facility] RN Member Role: Primary Care Nurse Name: Kimberly Santoro RN Position: [facility] RN Member Role: Primary Care Nurse Name: Haley Diamond RN Position: [facility] RN Member Role: Primary Care Nurse Name: Ashley Meléndez NP Position: [facility] PCO Associate Professional Member Role: Primary Care Nurse Address: Address: [address] [place] [address]- Name: Siomara Patricia RN Position: [facility] PCO RN Member Role: Primary Care Nurse Name: Neeta Painter RN Position: [facility] RN Member Role: Primary Care Nurse Name: Edith Drummond RN Position: [facility] RN Member Role: Primary Care Nurse Name: Bailey Espinal RN Position: [facility] QUAN Nurse Member Role: Primary Care Nurse Name: Brooklyn Ramsey RN Position: [facility] RN Member Role: Primary Care Nurse Name: Keyla Bright RN Position: [facility] RN Member Role: Primary Care Nurse Name: Beverley Tatum RN Position: [facility] RN Member Role: Primary Care Nurse Name: Mainor Devries RN Position: [facility] RN Member Role: Primary Care Nurse Name: Yarely Richards RN Position: [facility] Chair Member Role: Primary Care Nurse Name: Oralia Massey RN Position: [facility] RN Member Role: Primary Care Nurse Name: Rich WILSON pee Position: [facility] RN Member Role: Primary Care Nurse Name: Taiwo Mcgregor RN Position: [facility] RN Member Role: Primary Care Nurse Name: Cally Funes RN Position: [facility] SN RN Member Role: Primary Care Nurse Name: Marina Osorio Position: [facility] RN Member Role: Primary Care Nurse Name: Lisa Blanton RN Position: [facility] Chair Member Role: Primary Care Nurse Name: Danica Stuart RN Position: [facility] AMB Nurse Member Role: Primary Care Nurse Name: Shruthi Ray RN Position: [facility] RN Member Role: Primary Care Nurse Name: Abbe Choe RN Position: [facility] RN Supv Member Role: Primary Care Nurse Name: Farideh Cat LPN Position: [facility] RN Member Role: Primary Care Nurse Name: Janis Morris RN Position: [facility] Chair Member Role: Primary Care Nurse Name: Darrian Chang RN Position: [facility] Chair Member Role: Primary Care Nurse Name: Jerry Mcneill RN Position: [facility] RN Member Role: Primary Care Nurse Care Team Related Persons Name: IVAN VILLASENOR Address: [place] [address] Name: REYNALDO KAUR Address: home [address] [place] [address] Name: EMMA SERRANO Address: home [address] [address] Name: PATRICK MATA Address: home [address] [place] [address] Name: FARIDEH POPE Address: [place] [address]
--- OUTSIDE RECORDS SUMMARY | 2022-08-31 01:13 | XMS_ITS | Continuity of Care Document ---
Author Name Unknown Organization [facility] ter Address [address] [place] [address]- Care Team Providers Care Audit Senior Associate Name Role Phone Darryl Pizano DOdavidradha Gupta Primary Care Physician Encounter [facility] [place] Date(s): 08/20/21 - 02/26/[address] [address]- Attending Physician: Donald Murphy MD Admitting Physician: [...] Lyrica Angioedema Active Lantiseptic Skin Protectant Active Adhesive Bandage skin excoriation hives Active 1plizzie SHERIFF, tolerates with diphenhydramine 2Tolerates [...] to receive vaccine 2Admin Note: manufactured by [employer] Medications albuterol 0.042% inhalation solution 3 [...] 13:21:00 EDT, Route to Pharmacy Electronically, [facility], Partial fill upon patient request [...] 04/02/20 9:29:00 EST, Tablet, [facility] 3, Partial fill upon patient request [...] 06/21/18 11:05:15 EDT, Route to Pharmacy Electronically, [id number], [facility] 3 Start Date: 06/21/18 [...] WITH PROLONGED DEPRESSIVE REACTION Confirmed 02/03/07 Active [facility] [place] Team Senior Level Patient Confirmed Active ASTHMA [...] Name: Lola Belcher RN Position: [facility] RN Member Role: Primary Care Nurse Name: Jose Enrique Saul RN Position: [facility] RN Member Role: Primary Care Nurse Name: Symone Mckinnon RN Position: [facility] RN Member Role: Primary Care Nurse Name: Carolyn Pelaez RN Position: [facility] RN Member Role: Primary Care Nurse Name: Deanna Garcia RN Position: [facility] RN Member Role: Primary Care Nurse Name: Fanny Mixon RN Position: [facility] ED RN W/OE and Tasks Member Role: Primary Care Nurse Name: María Ashford RN Position: [facility] AMB Nurse Member Role: Primary Care Nurse Name: Chanelle Hernandez RN Position: [facility] PCO RN Member Role: Primary Care Nurse Name: Estelle García RN Position: [facility] RN Member Role: Primary Care Nurse Name: Deanne Rangel RN Position: [facility] RN Member Role: Primary Care Nurse Name: Carine Jimenez RN Position: [facility] SN RN Member Role: Primary Care Nurse Name: Jenelle Campo RN Position: [facility] RN Member Role: Primary Care Nurse Name: Keyla Godwin RN Position: [facility] RN Member Role: Primary Care Nurse Name: Yeimi Devine RN Position: [facility] RN Member Role: Primary Care Nurse Name: Mary Yan RN Position: [facility] RN Member Role: Primary Care Nurse Name: Iliana Pop RN Position: [facility] RN Member Role: Primary Care Nurse Name: Alcides Dueñas RN Position: [facility] RN Member Role: Primary Care Nurse Name: Lisa Beatty Position: [facility] Outreach Member Role: Lifetime Consulting Physician Name: Armida Beatty RN Position: [facility] RN Member Role: Primary Care Nurse Name: Roque Villasenor MD Position: [facility] Renal MD Member Role: Lifetime Consulting Physician Address: Address: [address] [place] [address], [address] [facility] [place], [place] [address] Name: Lashon Lovell RN Position: [facility] SN RN Member Role: Primary Care Nurse Name: Kristi Giraldo RN Position: [facility] RN Supv Member Role: Primary Care Nurse Name: Jerrod Casarez RN Position: [facility] RN Member Role: Primary Care Nurse Name: Rosalva Martin RN Position: [facility] RN Member Role: Primary Care Nurse Name: Armida Ochoa RN Position: [facility] RN Member Role: Primary Care Nurse Name: Deonna Murillo RN Position: [facility] RN Member Role: Primary Care Nurse Name: Felipa Diehl RN Position: [facility] HBO Wound Member Role: Primary Care Nurse Name: Evelin Powell RN Position: [facility] AMB Nurse Member Role: Primary Care Nurse Name: Deonna Pendleton RN Position: [facility] RN Member Role: Primary Care Nurse Name: Pili Kaba RN Position: [facility] RN Member Role: Primary Care Nurse Name: Alejandro Yanes RN Position: [facility] RN Member Role: Primary Care Nurse Name: Stacey Díaz RN Position: [facility] SN RN Member Role: Primary Care Nurse Name: Jac Reese RN Position: [facility] RN Member Role: Primary Care Nurse Name: Celestine Schwartz RN Position: [facility] ED RN W/OE and Tasks Member Role: Primary Care Nurse Name: Neeta Carpenter RN Position: [facility] RN Member Role: Primary Care Nurse Name: Susie Estrada RN Position: [facility] RN Member Role: Primary Care Nurse Name: Inna Cantor RN Position: [facility] RN Member Role: Primary Care Nurse Name: Chaparrita Pizano DO Position: [facility] Physician (General Medicine) Member Role: PCP Address: Address: [address] [place] [address]- Name: Ning Rolon RN Position: [facility] RN Member Role: Primary Care Nurse Name: Rubi Carrasco RN Position: [facility] SN RN Member Role: Primary Care Nurse Name: Lauryn Holden RN Position: [facility] RN Member Role: Primary Care Nurse Name: Shen Silvestre RN Position: [facility] RN Member Role: Primary Care Nurse Name: Jones Cervantes RN Position: [facility] RN Member Role: Primary Care Nurse Name: Olivia Caputo RN Position: [facility] RN Member Role: Primary Care Nurse Name: Brooklyn Jim RN Position: [facility] RN Member Role: Primary Care Nurse Name: Kimberly Santoro RN Position: [facility] RN Member Role: Primary Care Nurse Name: Haley Diamond RN Position: [facility] RN Member Role: Primary Care Nurse Name: Ashley Meléndez NP Position: [facility] PCO Associate Professional Member Role: Primary Care Nurse Address: Address: [address] [place] [address]- Name: Siomara Patricia RN [facility] RN Member Role: Primary Care Nurse Name: Neeta Painter RN Position: [facility] RN Member Role: Primary Care Nurse Name: Edith Drummond RN Position: [facility] RN Member Role: Primary Care Nurse Name: Bailey Espinal RN Position: [facility] AMB Nurse Member Role: Primary Care Nurse Name: Brooklyn Ramsey RN Position: [facility] RN Member Role: Primary Care Nurse Name: Keyla Bright RN Position: [facility] RN Member Role: Primary Care Nurse Name: Beverley Tatum RN Position: [facility] RN Member Role: Primary Care Nurse Name: Mainor Devries RN Position: [facility] RN Member Role: Primary Care Nurse Name: Yarely Richards RN Position: [facility] Roller Mechanic Member Role: Primary Care Nurse Name: Oralia Massey RN Position: [facility] RN Member Role: Primary Care Nurse Name: Rich WILSON pee Position: [facility] RN Member Role: Primary Care Nurse Name: Taiwo Mcgregor RN Position: [facility] RN Member Role: Primary Care Nurse Name: Cally Funes RN Position: [facility] SN RN Member Role: Primary Care Nurse Name: Marina Osorio Position: [facility] RN Member Role: Primary Care Nurse Name: Lisa Blanton RN Position: [facility] Roller Mechanic Member Role: Primary Care Nurse Name: Danica Stuart RN Position: [facility] AMB Nurse Member Role: Primary Care Nurse Name: Shruthi Ray RN Position: [facility] RN Member Role: Primary Care Nurse Name: Abbe Choe RN Position: [facility] RN Supv Member Role: Primary Care Nurse Name: Farideh Cat LPN Position: [facility] RN Member Role: Primary Care Nurse Name: Janis Morris RN Position: [facility] Roller Mechanic Member Role: Primary Care Nurse Name: Darrian Chang RN Position: [facility] [employer] Member Role: Primary Care Nurse Name: Jerry Mcneill RN Position: [facility] RN Member Role: Primary Care Nurse Care Team Related Persons Name: IVAN VILLASENOR Address: [place] [address] Name: REYNALDO KAUR Address: home [address] [place] [address] Name: EMMA SERRANO Address: home [address] [address] Name: PATRICK MATA Address: home [address] [place] [address] Name: FARIDEH POPE Address: [place] [address]
--- OUTSIDE RECORDS SUMMARY | 2022-08-31 01:14 | XMS_ITS | Continuity of Care Document ---
Author Name Unknown Organization [facility] ter Address [address] [place] [address]- Care Team Providers Care Chemist Intern Name Role Phone Darryl Pizano DOdavidradha Gupta Primary Care Physician Encounter [facility] [place] Date(s): 08/20/21 - 01/15/[address] [address]- Attending Physician: Donald Murphy MD Admitting Physician: [...] to receive vaccine 2Admin Note: manufactured by [employer] Medications albuterol 0.042% inhalation solution 3 [...] 09/08/21 13:21:00 EDT, Route to Pharmacy Electronically, [facility], Partial fill upon [...] 0 Refills, Maintenance, 04/02/20 9:29:00 EST, Tablet, [facility], Partial fill upon patient request if [...] 06/21/18 11:05:15 EDT, Route to Pharmacy Electronically, [id number], [facility] Start Date: 06/21/18 Status: Ordered Vitamin [...] WITH PROLONGED DEPRESSIVE REACTION Confirmed 02/03/07 Active [facility] [place] Team Senior Level Patient Confirmed Active ASTHMA [...] Nurse Name: Jose Enrique Saul RN Position: [facility] RN Member [...] Role: Lifetime Consulting Physician Address: Address: [address] [place] [address], [address] [facility] [place], [place] [address] Name: Lashon Lovell RN [facility] Care Nurse Name: Evelin Powell RN Position: [facility] AMB Nurse Member Role: Primary Care Nurse Name: Deonna Pendleton RN Position: [facility] RN Member Role: Primary Care Nurse Name: Pili Kaba RN Position: [facility] GAGANDEEP RN W/OE and Tasks [...] (General Medicine) Member Role: PCP Address: Address: [address] [place] [address]- Name: Ning Rolon RN Position: [facility] [...] Role: Primary Care Nurse Address: Address: [address] [place] [address]- Name: Siomara Patricia RN Position: [facility] RN Member Role: Primary Care Nurse Name: [...] Richards RN Position: [facility] Central [facility] Associate Member Role: Primary Care Nurse Name: Oralia [...] Blanton RN Position: [facility] Associate Member Role: Primary Care Nurse Name: Danica [...] Morris RN Position: [facility] Associate Member Role: Primary Care Nurse Name: Darrian Chang RN Position: [facility] Associate Member Role: Primary Care Nurse Name: Jerry Mcneill RN Position: [facility] RN Member Role: Primary Care Nurse Care Team Related Persons Name: IVAN VILLASENOR Address: [place] [address] Name: REYNALDO KAUR Address: home [address] [place] [address] Name: EMMA SERRANO Address: home [address] [address] Name: PATRICK MATA Address: home [address] [place] [address] Name: FARIDEH POPE Address: [place] [address]
--- OUTSIDE RECORDS SUMMARY | 2022-08-31 01:14 | XMS_ITS | Continuity of Care Document ---
Author Name Unknown Organization [facility] ter Address [address] [place] [address]- Care Team Providers Care Ward Aide Name Role Phone Darryl Pizano DOdavidradha Gupta Primary Care Physician [place] [facility] [place] - 01/29/[address] [address]- Attending Physician: oDnald Murphy MD Admitting Physician: Donald Murphy MD [...] to receive vaccine 2Admin Note: manufactured by [employer] Medications albuterol 0.042% inhalation solution 3 [...] 09/08/21 13:21:00 EDT, Route to Pharmacy Electronically, [facility], Partial fill upon patient [...] Maintenance, 04/02/20 9:29:00 EST, Tablet, [facility], [...] 06/21/18 11:05:15 EDT, Route to Pharmacy Electronically, [id number], [facility] 3 Start Date: 06/21/18 Status: Ordered [...] WITH PROLONGED DEPRESSIVE REACTION Confirmed 02/03/07 Active [facility] [place] Team Senior Level Patient Confirmed Active ASTHMA [...] Role: Lifetime Consulting Physician Address: Address: [address] [place] [address], [address] [facility] [place], [place] [address] Name: Lashon Lovell RN Position: [facility] (General Medicine) Member Role: PCP Address: Address: [address] [place] [address]- Name: Ning Rolon RN Position: [facility] [...] Care Nurse Name: Ashley Meléndez NP Position: [facility] PCO Associate Professional Member Role: Primary Care Nurse Address: Address: [address] [place] [address]- Name: Siomara Patricia RN Position: [facility] [...] Yarely Richards RN Position: [facility] Bridge Design Engineer Member Role: Primary Care Nurse Name: Oralia Massey RN Position: [facility] RN Member Role: Primary Care Nurse Name: Rich WILSON pee Position: [facility] RN Member [...] Lisa Blanton RN Position: [facility] [employer] Design Engineer Member Role: Primary Care Nurse Name: [...] Janis Morris RN Position: [facility] [employer] Engineer Member Role: Primary Care Nurse Name: Darrian Chang RN Position: [facility] [employer] Engineer Member Role: Primary Care Nurse Name: Jerry Mcneill RN Position: [facility] RN Member Role: Primary Care Nurse Care Team Related Persons Name: KENNEY VILLASENORINDA Address: [place] [address] Name: REYNALDO KAUR Address: home [address] [place] [address] Name: EMMA SERRANO Address: home [address] [address] Name: PATRICK MATA Address: home [address] [place] [address] Name: FARIDEH POPE Address: [place] [address]
--- OUTSIDE RECORDS SUMMARY | 2022-08-31 01:14 | XMS_ITS | Continuity of Care Document ---
Author Name Unknown Organization [facility] ter Address [address] [place] [address]- Care Team Providers Care Multiple Drum Sander Helper Name Role Phone Jerica DO Darryldavidradha Gupta Primary Care Physician Encounter [facility] Date(s): 08/20/21 - 12/18/[address] [address]- Attending Physician: Donald Murphy MD Admitting Physician: Donald Murphy MD Referring Physician: Donald Murphy MD Allergies, Adverse Reactions, Alerts Substance Reaction Severity Status doxycycline mouth swelling Active ceftriaxone hives Active melatonin Active Zofran 1 can only be given w/ benadryl hives Active penicillin throat swelling Rash Persistent Severe Active famotidine vomiting Active morphine 2, 3, 4 hives Active iodine topical swelling itching Active Pepcid vomitng Active Nexium diarrhea, vomitting [...] Angioedema Active Nicotine Patch ana cardia Active 1patient tolerated zofran on 05/25/2013 2per [...] to receive vaccine 2Admin Note: manufactured by [employer] Medications albuterol 0.042% inhalation solution 3 [...] 09/08/21 13:21:00 EDT, Route to Pharmacy Electronically, [facility], Partial fill upon patient [...] Date: 12/12/21 Stop Date: 12/19/21 Status: Ordered Insulin Glargine = 35 units, [...] 13:22:00 EDT, 08/31/20 13:21:00 EDT, Syrup, [facility]/pharmacy #[id number], Partial fill upon patient [...] Refills, Maintenance, 04/02/20 9:29:00 EST, Tablet, [facility], Partial fill upon patient [...] 06/21/18 11:05:15 EDT, Route to Pharmacy Electronically, [id number], [facility] Start Date: 06/21/18 Status: [...] WITH PROLONGED DEPRESSIVE REACTION Confirmed 02/03/07 Active [place] [facility] [place] Team Senior Level Patient Confirmed Active ASTHMA [...] Personnel Name: Chaparrita Pizano DO Address: Address: [address] [place], [place] [address]
--- OUTSIDE RECORDS SUMMARY | 2022-08-31 01:14 | XMS_ITS | Continuity of Care Document ---
Author Name Unknown Organization [facility] Address [address] [place] [address] [address] [place] [address]- Care Team Providers Care Pipe Coverer Name Role Phone Chaparrita Pizano DO Primary Care Physician Encounter [facility] Date(s): 11/27/21 - 12/27/21 [facility] [address] [place] [address]- Allergies, Adverse Reactions, Alerts Substance Reaction Severity Status doxycycline mouth swelling Active ceftriaxone hives Active penicillin throat swelling Rash Persistent Severe Active melatonin Active Pepcid vomitng Active famotidine vomiting Active morphine 1, 2, 3 hives Active iodine topical swelling itching Active Zofran 4 can only be given w/ benadryl hives Active Levaquin tingling in mouth, rash Acti ve Reglan severe restless legs Active Adhesive Bandage skin excoriation hives Active Latex vag rash Active Seafood Anaphylactic shock d ue to adverse food reaction Severe Active Compazine shortness of breath Active Tylenol hives Active Contrast Dye hives itchy throat itchy Persistent Mild Active Nexium diarrhea, vomitting Active Lantiseptic Skin [...] to receive vaccine 2Admin Note: manufactured by [employer] Medications albuterol 0.042% inhalation solution [...] 09/08/21 13:21:00 EDT, Route to Pharmacy Electronically, [facility], Partial fill upon patient [...] EST, Tablet, [facility], Partial fill upon patient request if [...] 06/21/18 11:05:15 EDT, Route to Pharmacy Electronically, [id number], [facility] Start Date: 06/21/18 Status: [...] WITH PROLONGED DEPRESSIVE REACTION Confirmed 02/03/07 Active [place] [facility] [place] Team Senior Level Patient Confirmed Active ASTHMA [...] Team Personnel Name: Lola Belcher RN Position: [facility] RN Member Role: Primary Care Nurse Name: Jose Enrique Saul RN Position: [facility] RN Member Role: Primary Care Nurse Name: Symone Mckinnon RN Position: [facility] RN Member Role: Primary Care Nurse Name: Carolyn Pelaez RN Position: [facility] RN Member Role: Primary Care Nurse Name: Deanna Garcia RN Position: [facility] RN Member Role: Primary Care Nurse Name: Fanny Mixon RN Position: [facility] ED RN W/OE and Tasks Member Role: Primary Care Nurse Name: María Ashford RN Position: [facility] AMB Nurse Member Role: Primary Care Nurse Name: Chanelle Hernandez RN Position: [facility] PCO RN Member Role: Primary Care Nurse Name: Estelle García RN Position: [facility] RN Member Role: Primary Care Nurse Name: Deanne Rangel RN Position: [facility] RN Member Role: Primary Care Nurse Name: Carine Jimenez RN Position: [facility] SN RN Member Role: Primary Care Nurse Name: Jenelle Campo RN Position: [facility] RN Member Role: Primary Care Nurse Name: Keyla Godwin RN Position: [facility] RN Member Role: Primary Care Nurse Name: Yeimi Devine RN Position: [facility] RN Member Role: Primary Care Nurse Name: Mary Yan RN Position: [facility] RN Member Role: Primary Care Nurse Name: Iliana Pop RN Position: [facility] RN Member Role: Primary Care Nurse Name: Alcides Dueñas RN Position: [facility] RN Member Role: Primary Care Nurse Name: Lisa Beatty Position: [facility] Outreach Member Role: Lifetime Consulting Physician Name: Armida Beatty RN Position: [facility] RN Member Role: Primary Care Nurse Name: Roque Villasenor MD Position: [facility] Renal MD Member Role: Lifetime Consulting Physician Address: Address: [address] [place] [address], [address] [facility] [address] Name: Lashon Lovell RN Position: [facility] SN RN Member Role: Primary Care Nurse Name: Kristi Giraldo RN Position: [facility] RN Supv Member Role: Primary Care Nurse Name: Jerrod Casarez RN Position: [facility] RN Member Role: Primary Care Nurse Name: Rosalva Martin RN Position: [facility] RN Member Role: Primary Care Nurse Name: Armida Ochoa RN Position: [facility] RN Member Role: Primary Care Nurse Name: Deonna Murillo RN Position: [facility] RN Member Role: Primary Care Nurse Name: Felipa Diehl RN Position: [facility] HBO Wound Member Role: Primary Care Nurse Name: Evelin Powell RN Position: [facility] AMB Nurse Member Role: Primary Care Nurse Name: Deonna Pendleton RN Position: [facility] RN Member Role: Primary Care Nurse Name: Pili Kaba RN Position: [facility] RN Member Role: Primary Care Nurse Name: Alejandro Yanes RN Position: [facility] RN Member Role: Primary Care Nurse Name: Stacey Díaz RN Position: [facility] SN RN Member Role: Primary Care Nurse Name: Jac Reese RN Position: [facility] RN Member Role: Primary Care Nurse Name: Celestine Schwartz RN Position: [facility] RN Member Role: Primary Care Nurse Name: Neeta Carpenter RN Position: [facility] RN Member Role: Primary Care Nurse Name: Susie Estrada RN Position: [facility] RN Member Role: Primary Care Nurse Name: Inna Cantor RN Position: [facility] RN Member Role: Primary Care Nurse Name: Chaparrita Pizano DO Position: [facility] Physician (General Medicine) Member Role: PCP Address: Address: [address] [place] [address]- Name: Ning Rolon RN Position: [facility] RN Member Role: Primary Care Nurse Name: Rubi Carrasco RN Position: [facility] SN RN Member Role: Primary Care Nurse Name: Lauryn Holden RN Position: [facility] RN Member Role: Primary Care Nurse Name: Shen Silvestre RN Position: [facility] RN Member Role: Primary Care Nurse Name: Jones Cervantes RN Position: [facility] RN Member Role: Primary Care Nurse Name: Olivia Caputo RN Position: [facility] RN Member Role: Primary Care Nurse Name: Brooklyn Jim RN Position: [facility] RN Member Role: Primary Care Nurse Name: Kimberly Santoro RN Position: [facility] RN Member Role: Primary Care Nurse Name: Haley Diamond RN Position: [facility] RN Member Role: Primary Care Nurse Name: Ashley Meléndez NP Position: [facility] PCO Associate Professional Member Role: Primary Care Nurse Address: Address: [address] [place] [address]- Name: Siomara Patricia RN Position: [facility] PCO RN Member Role: Primary Care Nurse Name: Neeta Painter RN Position: [facility] RN Member Role: Primary Care Nurse Name: Edith Drummond RN Position: [facility] RN Member Role: Primary Care Nurse Name: Bailey Espinal RN Position: [facility] AMB Nurse Member Role: Primary Care Nurse Name: Brooklyn Ramsey RN Position: [facility] RN Member Role: Primary Care Nurse Name: Keyla Bright RN Position: [facility] RN Member Role: Primary Care Nurse Name: Beverley Tatum RN Position: [facility] RN Member Role: Primary Care Nurse Name: Mainor Devries RN Position: [facility] RN Member Role: Primary Care Nurse Name: Yarely Richards RN Position: [facility] [employer] Member Role: Primary Care Nurse Name: Oralia Massey RN Position: [facility] RN Member Role: Primary Care Nurse Name: Cassie Villanueva RN Position: [facility] RN Member Role: Primary Care Nurse Name: Taiwo Mcgregor RN Position: [facility] RN Member Role: Primary Care Nurse Name: Cally Funes RN Position: [facility] SN RN Member Role: Primary Care Nurse Name: Marina Osorio Position: [facility] RN Member Role: Primary Care Nurse Name: Lisa Blanton RN Position: [facility] [employer] Member Role: Primary Care Nurse Name: Danica Stuart RN Position: [facility] AMB Nurse Member Role: Primary Care Nurse Name: Shruthi Ray RN Position: [facility] RN Member Role: Primary Care Nurse Name: Abbe Choe RN Position: [facility] RN Supv Member Role: Primary Care Nurse Name: Farideh Cat LPN Position: [facility] RN Member Role: Primary Care Nurse Name: Janis Morris RN Position: [facility] [employer] Member Role: Primary Care Nurse Name: Darrian Chang RN Position: [facility] [employer] Member Role: Primary Care Nurse Name: Jerry Mcneill RN Position: [facility] RN Member Role: Primary Care Nurse Care Team Related Persons Name: IVAN VILLASENOR Address: [place] [address] Name: REYNALDO KAUR Address: home [address] [place] [address] Name: EMMA SERRANO Address: [address] [address] Name: PATRICK MATA Address: home [address] [place] [address] Name: FARIDEH POPE Address: [place] [address]
--- OUTSIDE RECORDS SUMMARY | 2022-08-31 01:14 | XMS_ITS | Continuity of Care Document ---
Author Name Unknown Organization [facility] Address [address] [place] [address] [address] [place] [address]- Care Team Providers Care Casting Technician Name Role Phone Chaparrita Pizano DO Primary Care Physician Encounter [facility] Date(s): 09/24/21 - 10/24/21 [facility] [address] [place] [address]- Allergies, Adverse Reactions, Alerts Substance Reaction Severity [...] to receive vaccine 2Admin Note: manufactured by [employer] Medications albuterol 0.042% inhalation solution 3 [...] 09/08/21 13:21:00 EDT, Route to Pharmacy Electronically, [facility], Partial fill upon patient [...] 08/31/22 13:22:00 EDT, 08/31/20 13:21:00 EDT, Syrup, [facility]/pharmacy #[id number], Partial fill upon patient request [...] 0 Refills, Maintenance, 04/02/20 9:29:00 EST, Tablet, [facility], Partial [...] 06/21/18 11:05:15 EDT, Route to Pharmacy Electronically, [id number], [facility] Start Date: 06/21/18 Status: [...] WITH PRO LONGED DEPRESSIVE REACTION(Confirmed) 02/03/07 Active [place] [facility] Emeral d Team Senior Level Patient(Confirmed) [...] on: 01/30/16 Sex Care Team Personnel Name: Chaaprrita Pizano DO Address: [address] [place] [address]
--- OUTSIDE RECORDS SUMMARY | 2022-08-31 01:14 | XMS_ITS | Continuity of Care Document ---
Author Name Unknown Organization [facility] Address Unknown Care Team Providers Care Cement Patcher Name Role Phone Chaparrita Pizano DO Primary Care Physician [place] [facility] Date(s): 08/25/21 - 09/01/21 [facility] Encounter Diagnosis Chronic abdominal pain(Discharge Diagnosis) - 08/28/21 DM (diabetes mellitus), type 2, uncontrolled(Discharge Diagnosis) - 08/28/21 Partial small bowel obstruction(Discharge Diagnosis) - 08/28/21 Morbid obesity(Discharge Diagnosis) - 08/28/21 Attending Physician: Tien Astudillo MD Referring Physician: [...] 0 Refills, Maintenance, 04/02/20 9:29:00 EST, Tablet, [facility], Partial fill upon patient [...] Refills, Soft Stop, 06/26/21 7:59:00 EDT, Tablet, [facility]/pharmacy #[id number], Partial fill upon patient [...] 08/30/17 8:21:42 EDT, Route to Pharmacy Electronically, [id number], [facility] #[id number] Start Date: 08/30/17 Status: Ordered Tums 500 mg oral tablet, chewable 500 mg, 1, tablet, Chew, Every 4 hours, PRN, # 180 tablet, Refills 0, Tot. Refills 0, Maintenance, Dyspepsia, 06/21/18 11:05:15 EDT, Route to Pharmacy Electronically, [id number], [facility] Start Date: 06/21/18 Status: [...] WITH PRO LONGED DEPRESSIVE REACTION(Confirmed) 02/03/07 Active [facility] Emeral d Team Senior Level [...] Effective Dates Health Status Clinical Service Informant Chronic abdominal pain Discharge Diagnosis 08/28/21 DM (diabetes mellitus), type 2, uncontrolled Discharge Diagnosis 08/28/21 Partial small bowel obstruction Discharge Diagnosis 08/28/21 Morbid obesity Discharge Diagnosis 08/28/21 Vital Signs Most recent to oldest [Reference Range]: 1 Height 155 cm (08/25/21 3:08 PM) Weight 125.4 kg (08/25/21 3:08 PM) Pulse Rate [55-90 bpm] 93 bpm *H* (08/25/21 3:08 PM) Body Mass Index [18.5-24.99] 52.2 *>HHI* (08/25/21 3:08 PM) Blood Pressure [90-138/55-84 mm Hg] 144/ 83mm Hg *H* (08/25/21 3:08 PM) Temperature [96.8-100.4 DegF] 96.5 DegF *L* (08/25/21 3:08 PM) Blood pressure sites Arm, left (08/25/21 3:08 PM) Temperature Route Temporal (08/25/21 3:08 PM) Social History Social History Type Response Smoking Status Former smoker; Other : quit 04/2015; entered on: 01/30/16 Sex
--- OUTSIDE RECORDS SUMMARY | 2022-08-31 01:14 | XMS_ITS | Continuity of Care Document ---
Author Name Unknown Organization [facility] Address [address] [place] [address]- Care Team Providers Care Steam Box Tender Name Role Phone JericaChaparrita apple DO Primary Care Physician ( [phone] Encounter [facility] Date(s): 07/25/20 - 08/24/20 [facility] [address] [place], [place] [address] [...] 11/11/17 Give n influenza virus vaccine, inactivated 1/24/16 Give n influenza virus vaccine, inactivated 10/31/11 Give n tetanus/diphtheria/pertussis, acel(Tdap) 06/10/17 Given pneumococcal 13-valent vaccine 01/20/15 Given pneumococcal 23-valent vaccine 10/31/11 Given Pneumococcal Poly (PPV23) (oldterm) 02/02/07 Given Influenza Virus Vaccine (oldterm) 2 02/02/07 Given 1Result Comment: Patient verbally consented to receive vaccine 2Admin Note: manufactured by [employer] Medications albuterol 0.042% inhalation solution 3 [...] 0 Refills, Soft Stop, 04/09/20 13:16:00 EST, [facility] [...] 0 Refills, Maintenance, 04/02/20 9:29:00 EST, Tablet, [facility] [...] Maintenance, 06/20/20 8:49:00 EDT, Tablet, [facility]acy #[id number], Partial fill upon patient request if the [...] 08/30/17 8:21:42 EDT, Route to Pharmacy Electronically, [id number], [facility]acy #[id number] Start Date: 08/30/17 Status: Ordered Tums 500 mg oral tablet, chewable 500 mg, 1, tablet, Chew, Every 4 hours, PRN, # 180 tablet, Refills 0, Tot. Refills 0, Maintenance, Dyspepsia, 06/21/18 11:05:15 EDT, Route to Pharmacy Electronically, [id number], [facility] Start Date: 06/21/18 [...] WITH PRO LONGED DEPRESSIVE REACTION(Confirmed) 02/03/07 Active [facility] Emeral d Team Senior Level Patient(Confirmed) [...] Active MIGRAINE(Confirmed) 02/03/07 Active Neurogenic bladder(Confirmed) Active ARUELIO (obstructive sleep apnea)(Confirmed) Active Optic neuritis, right(Confirmed) Active Partial small bowel obstruction(Confirmed) Active Pelvic mass in female(Confirmed) Active Spinal stenosis(Confirmed) Active Follow-up examination after gynecological surgery(Confirmed) Active DM (diabetes mellitus), type 2, uncontrolled(Confirmed) Active Social History Social History Type Response Smoking Status Former smoker; Other : quit 04/2015; entered on: 01/30/16 Sex Female
[2022-08-31 01:15] LABS: MANUAL DIFF FLAG NO
--- OUTSIDE RECORDS SUMMARY | 2022-08-31 01:15 | XMS_ITS | Continuity of Care Document ---
Author Name Unknown Organization [facility] Address [address] [place] [address]- Care Team Providers Care Steel Tester Name Role Phone Jerica Chaparrita DO Primary Care Physician [place] [facility] [place] - 05/01/22 [facility] [address] [place] [id number] Allergies, Adverse Reactions, Alerts Substance [...] to receive vaccine 2Admin Note: manufactured by [employer] Medications albuterol 0.042% inhalation solution 3 [...] 03/12/22 12:08:00 EST, Route to Pharmacy Electronically, [facility], Partial fill upon patient request [...] 03/09/23 23:00:00 EST, 03/12/22 12:09:00 EST, Syrup, [facility], Partial fill upon patient request [...] 03/09/23 23:00:00 EST, 03/12/22 12:10:00 EST, Patch, [facility], Partial fill upon patient request [...] tablet, 0 Refills, Maintenance, 04/02/20 9:29:00 EST, [facility], Partial fill upon patient request if [...] 03/12/22 12:06:00 EST, Route to Pharmacy Electronically, [facility], Partial fill uponpatient request if the [...] 06/21/18 11:05:15 EDT, Route to Pharmacy Electronically, [id number], [facility] Start Date: 06/21/18 Status: Ordered Vitamin [...] WITH PROLONGED DEPRESSIVE REACTION Confirmed 02/03/07 Active [facility] [place] Team Senior Level Patient Confirmed Active ASTHMA [...] Team Personnel Name: Lola Belcher RN Position: [facility] RN Member Role: Primary Care Nurse Name: Jose Enrique Saul RN Position: [facility] RN Member Role: Primary Care Nurse Name: Symone Mckinnon RN Position: [facility] RN Member Role: Primary Care Nurse Name: Carolyn Pelaez RN Position: [facility] RN Member Role: Primary Care Nurse Name: Fanny Mixon RN Position: [facility] ED RN W/OE and Tasks Member Role: Primary Care Nurse Name: María Ashford RN Position: [facility] AMB Nurse Member Role: Primary Care Nurse Name: Chanelle Hernandez RN Position: [facility] AMB Nurse Member Role: Primary Care Nurse Name: Estelle García RN Position: [facility] RN Member Role: Primary Care Nurse Name: Deanne Rangel RN Position: [facility] RN Member Role: Primary Care Nurse Name: Carine Jimenez RN Position: [facility] SN RN Member Role: Primary Care Nurse Name: Jenelle Campo RN Position: [facility] RN Member Role: Primary Care Nurse Name: Keyla Godwin RN Position: [facility] RN Member Role: Primary Care Nurse Name: Yeimi Devine RN Position: [facility] RN Member Role: Primary Care Nurse Name: Mary Yan RN Position: [facility] RN Member Role: Primary Care Nurse Name: Iliana Pop RN Position: [facility] RN Member Role: Primary Care Nurse Name: Alcides Dueñas RN Position: [facility] RN Member Role: Primary Care Nurse Name: Lisa Beatty Position: [facility] Outreach Member Role: Lifetime Consulting Physician Name: Armida Beatty RN Position: [facility] RN Member Role: Primary Care Nurse Name: Deonna Beatty RN Position: [facility] RN Member Role: Primary Care Nurse Name: Roque Villasenor MD Position: [facility] Renal MD Member Role: Lifetime Consulting Physician Address: Address: [address], [address] [facility] [place] [address]- [place] Name: Lashon Lovell RN Position: [facility] SN RN Member Role: Primary Care Nurse Name: Kristi Giraldo RN Position: [facility] RN Supv Member Role: Primary Care Nurse Name: Jerrdo Casarez RN Position: [facility] RN Member Role: Primary Care Nurse Name: Shane Riley RN Position: [facility] RN Member Role: Primary Care Nurse Name: Isac Plascencia RN Position: [facility] RN Member Role: Primary Care Nurse Name: Rosalva Martin RN Position: [facility] RN Member Role: Primary Care Nurse Name: Sheela Matt RN Position: [facility] RN Member Role: Primary Care Nurse Name: Armida Ochoa RN Position: [facility] RN Member Role: Primary Care Nurse Name: Felipa Diehl RN Position: [facility] HBO Wound Member Role: Primary Care Nurse Name: Evelin Powell RN Position: [facility] AMB Nurse Member Role: Primary Care Nurse Name: Donald Murphy MD Position: [facility] Renal MD Member Role: Lifetime Consulting Physician Address: Address: [address] [place], [place] [address] [place] [address]- Name: Deonna Pendleton RN Position: [facility] RN Member Role: Primary Care Nurse Name: Pili Kaba RN Position: [facility] RN Member Role: Primary Care Nurse Name: Alejandro Yanes RN Position: [facility] RN Member Role: Primary Care Nurse Name: Stacey Díaz RN Position: [facility] SN RN Member Role: Primary Care Nurse Name: Jac Reese RN Position: [facility] RN Member Role: Primary Care Nurse Name: Celestine Schwartz RN Position: [facility] ED RN W/OE and Tasks Member Role: Primary Care Nurse Name: Neeta Carpenter RN Position: [facility] RN Member Role: Primary Care Nurse Name: Susie Estrada RN Position: [facility] RN Member Role: Primary Care Nurse Name: Inna Cantor RN Position: [facility] RN Member Role: Primary Care Nurse Name: Chaparrita Pizano DO Position: [facility] Physician (General Medicine) Member Role: PCP Address: Address: [address] [place] [address] [place] [address]- [place] Name: Ning Rolon RN Position: [facility] RN Member Role: Primary Care Nurse Name: Rubi Carrasco RN Position: [facility] SN RN Member Role: Primary Care Nurse Name: Lauryn Holden RN Position: [facility] RN Member Role: Primary Care Nurse Name: Jones Cervantes RN Position: [facility] RN Member Role: Primary Care Nurse Name: Olivia Caputo RN Position: [facility] RN Member Role: Primary Care Nurse Name: Brooklyn Jim RN Position: [facility] RN Member Role: Primary Care Nurse Name: Kimberly Santoro RN Position: [facility] RN Member Role: Primary Care Nurse Name: Haley Diamond RN Position: [facility] RN Member Role: Primary Care Nurse Name: Ashley Meléndez NP Position: [facility] PCO Associate Professional Member Role: Primary Care Nurse Address: Address: [address] [place] [address] 3[address] [place] [address]- Name: Siomara Patricia RN Position: [facility] PCO RN Member Role: Primary Care Nurse Name: Neeta Painter RN Position: [facility] RN Member Role: Primary Care Nurse Name: Bailey Espnial RN Position: [facility] AMB Nurse Member Role: Primary Care Nurse Name: Brooklyn Ramsey RN Position: [facility] RN Member Role: Primary Care Nurse Name: Keyla Bright RN Position: [facility] RN Member Role: Primary Care Nurse Name: Beverley Tatum RN Position: [facility] RN Member Role: Primary Care Nurse Name: Mainor Devries RN Position: [facility] RN Member Role: Primary Care Nurse Name: Yarely Richards RN Position: [facility] Lead Scientist Member Role: Primary Care Nurse Name: Oralia Massey RN Position: [facility] RN Member Role: Primary Care Nurse Name: Cassie Villanueva RN Position: [facility] RN Member Role: Primary Care Nurse Name: Taiwo Mcgregor RN Position: [facility] RN Member Role: Primary Care Nurse Name: Cally Funes RN Position: [facility] RN Member Role: Primary Care Nurse Name: Marina Osorio Position: [facility] RN Member Role: Primary Care Nurse Name: Lisa Blanton RN Position: [facility] Lead Scientist Member Role: Primary Care Nurse Name: Danica Stuart RN Position: [facility] AMB Nurse Member Role: Primary Care Nurse Name: Virginia Bacon RN Position: [facility] RN Member Role: Primary Care Nurse Name: Shruthi Ray RN Position: [facility] Onco RN Member Role: Primary Care Nurse Name: Abbe Choe RN Position: [facility] RN Supv Member Role: Primary Care Nurse Name: Farideh Cat LPN Position: [facility] RN Member Role: Primary Care Nurse Name: Janis Morris RN Position: [facility] Lead Scientist Member Role: Primary Care Nurse Name: Darrian Chang RN Position: [facility] Lead Scientist Member Role: Primary Care Nurse Name: Josef Woods RN Position: [facility] RN Member Role: Primary Care Nurse Name: Siomara Raphael RN Position: [facility] RN Member Role: Primary Care Nurse Name: Jerry Mcneill RN Position: [facility] RN Member Role: Primary Care Nurse Care Team Related Persons Name: IVAN VILLASENOR Address: [place] [address] Name: REYNALDO KAUR Address: home [address] [place] [address] Name: EMMA SERRANO Address: home [address] [address] Name: PATRICK MATA Address: home [address] [place] [address] Name: FARIDEH POPE Address: [place] [address]
--- OUTSIDE RECORDS SUMMARY | 2022-08-31 01:15 | XMS_ITS | Continuity of Care Document ---
Author Name Unknown Organization [facility] ter Address [address] [place] [address]- Care Team Providers Care Post Tensioning Ironworker Name Role Phone Chaparrita Pizano DO Primary Care Physician [place] [facility] [place] 10[place]16/[address] [address]- Encounter Diagnosis Insect bite(Final) - 10/16/20 Nasal congestion(Final) - 10/16/20 Discharge Disposition: A-D/C Home Attending Physician: Tenisha Tinsley DO Admitting Physician: Tenisha Tinsley DO Referring Physician: Not on Staff, Referring [...] to receive vaccine 2Admin Note: manufactured by [employer] Medications albuterol 0.042% inhalation solution 3 [...] 08/31/21 13:21:00 EDT, 08/31/20 13:21:00 EDT, Tablet, [facility]/pharmacy #[id number], Partial fill upon patient request... Start Date: [...] 08/31/22 13:22:00 EDT, 08/31/20 13:21:00 EDT, Syrup, [facility]/pharmacy #[id number], [...] 04/02/20 9:29:00 EST, Tablet, [facility], Partial fill upon patient request [...] tablet, 1 Refills, Maintenance, 08/31/20 13:22:00 EDT, [facility]/pharmacy #[id number], [...] 08/30/17 8:21:42 EDT, Route to Pharmacy Electronically, [id number], [facility]/pharmacy #[id number] Start Date: 08/30/17 Status: Ordered Tums 500 mg oral tablet, chewable 500 mg, 1, tablet, Chew, Every 4 hours, PRN, # 180 tablet, Refills 0, Tot. Refills 0, Maintenance, Dyspepsia, 06/21/18 11:05:15 EDT, Route to Pharmacy Electronically, [id number], [facility] Start Date: 06/21/18 Status: [...] WITH PRO LONGED DEPRESSIVE REACTION(Confirmed) 02/03/07 Active [facility] Emeral d Team Senior Level Patient(Confirmed) Active [...] to oldest [Reference Range]: 1 2 Height 155 cm (10/16/20 4:59 PM) Weight 129 kg (10/16/20 4:59 PM) Oxygen Saturation [94-100 %] 95 % (10/16/20 5:09 PM) 98 % (10/16/20 4:51 PM) Pulse Rate [55-90 bpm] 104 bpm *H* (10/16/20 5:09 PM) 114 bpm *H* (10/16/20 4:51 PM) Blood Pressure [90-138/55-84 mm Hg] 136/ 82mm Hg (10/16/20 5:09 PM) Respiratory Rate [16-30 br/min] 20 br/mi n (10/16/20 5:09 PM) Temperature [96.8-100.4 DegF] 98.5 DegF (10/16/20 5:09 PM) Mode of Delivery (Oxygen) Room air (10/16/20 5:09 PM) Room air (10/16/20 4:51 PM) Blood pressure sites Arm, right (10/16/20 5:09 PM) Temperature Route Oral (10/16/20 5:09 PM) Dry Weight 129 kg (10/16/20 4:59 PM) Social History Social History Type Response Smoking Status Former smoker; Other : quit 04/2015; entered on: 01/30/16 Sex Female
--- OUTSIDE RECORDS SUMMARY | 2022-08-31 01:15 | XMS_ITS | Continuity of Care Document ---
Author Name Unknown Organization [facility] ter Address [address] [place] [address]- Care Team Providers Care Personal Care Aide Name Role Phone Chaparrita Pizano DO Primary Care Physician ( [phone] Encounter [facility] [place] Date(s): 09/26/21 - 10/01/[address] [address]- Encounter Diagnosis Abdominal pain(Final) - 09/26/21 Discharge Disposition: A-D/C Home Attending Physician: Addis Cooley MD Admitting Physician: Rach SHERIFF, Bety Galvez Referring Physician: Not on Staff, Referring MD [...] to receive vaccine 2Admin Note: manufactured by [employer] Medications albuterol 0.042% inhalation solution 3 [...] 09/08/21 13:21:00 EDT, Route to Pharmacy Electronically, [facility], Partial fill upon patient request if the prescr... Start Date: 09/08/21 Stop Date: 10/08/21 Status: Ordered HYDROmorphone 2 mg oral tablet 4 mg, Tablet, By Mouth, Every 6 hours, PRN for Pain , Moderate, Routine, 09/28/21 11:13:00 EDT Start Date: 09/28/21 Stop Date: 10/02/21 Status: Discontinued HYDROmorphone 2 mg oral tablet 2 tablet = 4 mg, By Mouth, Every 6 hours, PRN as needed for pain, for 3 days, # 18 tablet, 0 Refills, Acute 10/04/21 15:06:00 EDT, 10/01/21 15:06:00 EDT, Tablet, [facility]/pharmacy #[id number], Partial fill uponpatient request if the [...] 08/31/22 13:22:00 EDT, 08/31/20 13:21:00 EDT, Syrup, [facility]/pharmacy #[id number], Partial fill upon patient [...] EST, Tablet, [facility], Partial fill upon patient request if [...] 06/21/18 11:05:15 EDT, Route to Pharmacy Electronically, [id number], [facility] [...] WITH PRO LONGED DEPRESSIVE REACTION(Confirmed) 02/03/07 Active [facility] Emeral d Team Senior Level [...] Range]: 1 2 3 Height 155 cm (10/01/21 3:43 PM) 155 cm (10/01/21 11:46 AM) 155 cm (10/01/21 8:13 AM) Weight 121.7 kg (09/26/21 7:07 PM) 121 kg (09/26/21 7:00 PM) 125 kg (09/26/21 2:56 PM) Oxygen Saturation [94-100 %] 98 % (10/01/21 3:43 PM) 99 % (10/01/21 11:46 AM) 100 % (10/01/21 8:13 AM) Pulse Rate [55-90 bpm] 71 bpm (10/01/21 3:43 PM) 73 bpm (10/01/21 11:46 AM) 77 bpm (10/01/21 8:13 AM) Body Mass Index [18.5-24.99] 50.66 *>HHI* (09/26/21 7:07 PM) 50.36 *>HHI* (09/26/21 7:00 PM) 52.03 *>HHI* (09/26/21 2:56 PM) Blood Pressure [90-138/55-84 mm Hg] 132/80mm Hg (10/01/21 3:43 PM) 130/82mm Hg (10/01/21 11:46 AM) 138/79mm Hg (10/01/21 8:13 AM) Respiratory Rate [16-30 br/min] 20 br/min (10/01/21 3:43 PM) 20 br/min (10/01/21 3:12 PM) 20 br/min (10/01/21 11:46 AM) Temperature [96.8-100.4 DegF] 97.9 DegF (10/01/21 3:43 PM) 97.9 DegF (10/01/21 11:46 AM) 98.7 DegF (10/01/21 8:13 AM) Mode of Delivery (Oxygen) Room air (10/01/21 3:43 PM) Room air (10/01/21 11:46 AM) Room air (10/01/21 8:13 AM) Blood pressure sites Arm, left (10/01/21 3:43 PM) Arm, left (10/01/21 11:46 AM) Arm, left (10/01/21 8:13 AM) Temperature Route Oral (10/01/21 3:43 PM) Oral (10/01/21 11:46 AM) Oral (10/01/21 8:13 AM) Dry Weight 121 kg (09/26/21 7:00 PM) 125 kg (09/26/21 2:56 PM) 125 kg (09/26/21 11:47 AM) Weight Obtained Via Standing scale (09/26/21 7:07 PM) Social History Social History Type Response Smoking Status Former smoker; Other : quit 04/2015; entered on: 01/30/16 Sex
--- OUTSIDE RECORDS SUMMARY | 2022-08-31 01:15 | XMS_ITS | Continuity of Care Document ---
Author Name Unknown Organization [facility] STAKING TECHNICIAN Oncolog y Address [address] [place] [address]- Care Team Providers Care Vice President Global Advertising Sales Name Role Phone Chaparrita Pizano DO Primary Care Physician Encounter [facility] [place](s[place] 02/19/19 - 03/29/19 [facility] STAKING TECHNICIAN Oncology [address] [place] [address]- [facility] Attending Physician: Kolby Mcduffie MD Admitting Physician: Kolby Mcduffie MD Referring Physician: Chaparrita Pizano DO Allergies, [...] 11:42:54 EDT, Aerosol, Route to Pharmacy Electronically, [id number], [facility]/pharmacy #[id number], Compound Start Date: [...] 05/05/18 9:38:51 EDT, Route to Pharmacy Electronically, [id number]... Start Date: 05/05/18 Status: Ordered Lantus 100 [...] tablet, 0 Refills, Maintenance, 01/31/19 15:17:00 EST, [facility]/pharmacy #[id number], 155.9, cm, 01/29/19 15:24:00 EST, Height, [...] 08/30/17 8:21:42 EDT, Route to Pharmacy Electronically, [id number], [facility]/pharmacy #[id number] Start Date: 08/30/17 Status: Ordered Tums 500 mg oral tablet, chewable 500 mg, 1, tablet, Chew, Every 4 hours, PRN, # 180 tablet, Refills 0, Tot. Refills 0, Maintenance, Dyspepsia, 06/21/18 11:05:15 EDT, Route to Pharmacy Electronically, [id number], [facility] Start Date: [...] WITH PRO LONGED DEPRESSIVE REACTION(Confirmed) 02/03/07 Active [facility] Emeral d Team Senior Level [...]
--- OUTSIDE RECORDS SUMMARY | 2022-08-31 01:15 | XMS_ITS | Continuity of Care Document ---
Author Name Unknown Organization [facility] ter Address [address] [place] [address]- Care Team Providers Care Bariatric Surgeon Name Role Phone Jerica Chaparrita DO Primary Care Physician [place] [facility] [place]s): 09/25/21 - 09/25/[address] [address]- Encounter Diagnosis Arm pain(Final) - 09/25/21 Hypomagnesemia(Final) - 09/25/21 Discharge Disposition: A-D/C Home Attending Physician: German Caputo MD Admitting Physician: German Caputo MD Referring Physician: Not on Staff, Referring MD Allergies, Adverse Reactions, Alerts Substance Reaction Severity Status doxycycline mouth swelling Active ceftriaxone hives Active penicillin throat swelling Rash Persistent Severe Active famotidine vomiting Active morphine 1, 2, 3 hives Active iodine topical swelling itching Active melatonin Active Pepcid vomitng Active Zofran 4 can only be given w/ benadryl hives Active Contrast Dye hives itchy throat [...] to receive vaccine 2Admin Note: manufactured by [employer] Medications albuterol 0.042% inhalation solution 3 [...] 09/08/21 13:21:00 EDT, Route to Pharmacy Electronically, [facility], Partial fill upon patient request if the prescr... Start Date: 09/08/21 Stop Date: 10/08/21 Status: Ordered Dilaudid 2 mg oral tablet 2 mg, Tablet, By Mouth, Once, STAT, 09/25/21 12:47:00 EDT, Stop date 09/25/21 12:47:00 EDT Start Date: 09/25/21 Stop Date: 09/25/21 Status: Completed Insulin Glargine Inj = 20 units, Subcutaneous [...] EDT, 08/31/20 13:21:00 EDT, Syrup, [facility]/pharmacy #[id number], Partial fill upon patient request if [...] Maintenance, 04/02/20 9:29:00 EST, Tablet, [facility], Partial fill upon patient [...] 06/21/18 11:05:15 EDT, Route to Pharmacy Electronically, [id number], [facility] Start Date: 06/21/18 [...] WITH PRO LONGED DEPRESSIVE REACTION(Confirmed) 02/03/07 Active [facility] Emeral d Team Senior Level Patient(Confirmed) [...] Range]: 1 2 3 Height 155 cm (09/25/21 4:11 PM) 155 cm (09/25/21 3:04 PM) 155 cm (09/25/21 10:32 AM) Weight 122.5 kg (09/25/21 4:11 PM) 122.5 kg (09/25/21 3:04 PM) 122.5 kg (09/25/21 10:32 AM) Oxygen Saturation [94-100 %] 100 % (09/25/21 4:11 PM) 97 % (09/25/21 3:04 PM) 97 % (09/25/21 10:32 AM) Pulse Rate [55-90 bpm] 79 bpm (09/25/21 4:11 PM) 78 bpm (09/25/21 3:04 PM) 92 bpm *H* (09/25/21 10:32 AM) Body Mass Index [18.5-24.99] 50.99 *>HHI* (09/25/21 4:11 PM) 50.99 *>HHI* (09/25/21 3:04 PM) 50.99 *>HHI* (09/25/21 10:32 AM) Blood Pressure [90-138/55-84 mm Hg] 112/74mm Hg (09/25/21 4:11 PM) 129/87mm Hg (09/25/21 3:04 PM) 133/102mm Hg (09/25/21 10:32 AM) Respiratory Rate [16-30 br/min] 18 br/min (09/25/21 4:11 PM) 18 br/min (09/25/21 3:04 PM) 18 br/min (09/25/21 1:12 PM) Temperature [96.8-100.4 DegF] 98.3 DegF (09/25/21 4:11 PM) 99.6 DegF (09/25/21 3:04 PM) 98 DegF (09/25/21 10:32 AM) Mode of Delivery (Oxygen) Room air (09/25/21 4:11 PM) Room air (09/25/21 3:04 PM) Room air (09/25/21 10:32 AM) Blood pressure sites Arm, right (09/25/21 4:11 PM) Arm, right (09/25/21 3:04 PM) Leg, left (09/25/21 10:32 AM) Temperature Route Oral (09/25/21 4:11 PM) Oral (09/25/21 3:04 PM) Oral (09/25/21 10:32 AM) Weight Obtained Via Patient/family state d (09/25/21 10:10 AM) Social History Social History Type Response Smoking Status Former smoker; Other : quit 04/2015; entered on: 01/30/16 Sex
--- OUTSIDE RECORDS SUMMARY | 2022-08-31 01:15 | XMS_ITS | Continuity of Care Document ---
Author Name Unknown Organization [facility] LEISURE TRAVEL AGENT Oncolog y Address [address] [place] [address]- Care Team Providers Care Fusion Operator Name Role Phone JericaChaparrita apple DO Primary Care Physician Encounter [facility] [place] [place] Date(s): 06/05/20 - 07/05/20 [facility] LEISURE TRAVEL AGENT Oncology [address] [place], [place] [address] Allergies, Adverse Reactions, Alerts Substance [...] 1 02/02/07 Given 1Admin Note: manufactured by [employer] Medications albuterol 0.042% inhalation solution 3 [...] Refills, Soft Stop, 06/23/20 10:08:00 EDT, Tablet, [facility]/pharmacy #[id number], Partial fill upon patient request if the prescription is for a schedule II opioid d... Start Date: 06/23/20 Status: Ordered insulin glargine 100 units/mL subcutaneous solution = 25 units, Subcutaneous Injection, Daily at bedtime, # 12 mL, 0 Refills, Maintenance, 04/03/20 13:23:00 EST, Solution, [facility]/pharmacy #[id number], Partial [...] 0 Refills, Soft Stop, 04/09/20 13:16:00 EST, [facility], Partial fill [...] 0 Refills, Maintenance, 04/02/20 9:29:00 EST, Tablet, [facility], Partial fill upon patient request if the prescription is for a schedule II opioid drug., 154.94, cm, 0... Start Date: 04/02/20 Status: Ordered oxyCODONE 10 mg oral tablet See Instructions, 1 tablet By Mouth 5 times per day for 7 days, per pain services recommedations, #35 tablet, 0 Refills, Maintenance, 06/20/20 8:49:00 EDT, Tablet, [facility]/pharmacy #[id number], Partial [...] 08/30/17 8:21:42 EDT, Route to Pharmacy Electronically, [id number], [facility]/pharmacy #[id number] Start Date: 08/30/17 Status: Ordered Tums 500 mg oral tablet, chewable 500 mg, 1, tablet, Chew, Every 4 hours, PRN, # 180 tablet, Refills 0, Tot. Refills 0, Maintenance, Dyspepsia, 06/21/18 11:05:15 EDT, Route to Pharmacy Electronically, [id number], [facility] 3 Start Date: 06/21/18 Status: Ordered [...] WITH PRO LONGED DEPRESSIVE REACTION(Confirmed) 02/03/07 Active [facility] Emeral d Team Senior Level [...]
--- OUTSIDE RECORDS SUMMARY | 2022-08-31 01:15 | XMS_ITS | Continuity of Care Document ---
Author Name Unknown Organization [facility] ter Address [address] [place] [address]- Care Team Providers Care Credit Control Manager Name Role Phone Chaparrita Pizano DO Primary Care Physician Encounter [facility] [place] Date(s): 02/18/19 - 02/18/[address] [address]- [facility] Encounter Diagnosis Right wrist pain(Final) - 02/18/19 Discharge Disposition: A-D/C Home Attending Physician: Bernarda Lopez MD Admitting Physician: Bernarda Lopez MD Referring Physician: Not on Staff, Referring [...] 11:42:54 EDT, Aerosol, Route to Pharmacy Electronically, [id number], [facility]/pharmacy #[id number], Compound Start Date: 06/10/17 [...] EDT, Tablet Start Date: 10/04/18 Status: Ordered ibuprofen 200 mg oral tablet 400 mg, 2, tablet, By Mouth, Every 6 hours, PRN, for 7 days, # 56 tablet, Refills 0, Tot. Refills 0, Acute 02/25/19 10:48:00 EST, for pain, 02/18/19 10:48:00 EST, Route to Pharmacy Electronically, [facility]/pharmacy #[id number], 155.9, cm, 01/29/19 15:24:00 EST,... Start Date: 02/18/19 Stop Date: 02/25/19 Status: Ordered Imodium A-D 2 mg oral tablet 2 mg, 1, tablet, By Mouth, Every 4 hours, PRN, not to exceed 8 capsules, or 16 mg, in 24 hours, # 90 tablet, Refills 0, Tot. Refills 0, Maintenance, for loose stool, 05/05/18 9:38:51 EDT, Route to Pharmacy Electronically, [id number]... Start Date: 05/05/18 Status: Ordered Lantus 100 [...] tablet, 0 Refills, Maintenance, 01/31/19 15:17:00 EST, [facility]/pharmacy #[id number], 155.9, cm, 01/29/19 15:24:00 EST, [...] 08/30/17 8:21:42 EDT, Route to Pharmacy Electronically, [id number], [facility]/pharmacy #[id number] Start Date: 08/30/17 Status: Ordered Tums 500 mg oral tablet, chewable 500 mg, 1, tablet, Chew, Every 4 hours, PRN, # 180 tablet, Refills 0, Tot. Refills 0, Maintenance, Dyspepsia, 06/21/18 11:05:15 EDT, Route to Pharmacy Electronically, [id number], [facility] 3 Start Date: 06/21/18 [...] WITH PRO LONGED DEPRESSIVE REACTION(Confirmed) 02/03/07 Active [facility] Emeral d Team Senior Level [...] Exam Date Time Procedure Performing Provider Status 02/18/19 10:07 AM Wrist Comp Min 3 Views Right Zoey Garcia (Verified) Notes: (Wrist Comp Min 3 Views Right) Reason For Exam: Pain RESULT: Wrist Comp Min 3 Views Right Wrist Comp Min 3 Views Right Refer to EMR; Reason: Pain; Clinical Question(s): Fracture; Hx of Present Illness: pt states beforechristmas she hurt wrist getting up, heard a crack had a xray done and was told that it wasn't broken. pt reports worsening pain radiating from right thumb to wrist and pain with flexion of thumb.;Other Objective Findings: pt alert, calm and cooperative, speaking clealry in full sentences, breath COMPARISON: None. 02/06/2019. FINDINGS: No fracture or dislocation. No arthritic change. Normal carpal configuration. Intact radial and ulnar styloid processes. Normal soft tissues. IMPRESSION: Normal. WSN: [id number] Dictated By: Kamryn Haines MD Dictated Date/Time: 02/18/19 10:18 a Reviewed By: Kamryn Haines MD Signed By: Kamryn Haines MD Signed Date/Time: 02/18/19 10:18 am Transcribed By: DEIDRE Transcribed Date/Time: 02/18/19 10:18 am * Exam Date Time Procedure Performing Provider Status 02/18/19 10:07 AM Hand Min 3 Views Right Candida Garcia i; Auth (Verified) Notes: (Hand Min 3 Views Right) Reason For Exam: Pain RESULT: Hand Min 3 Views Right Hand Min 3 Views Right, 3 views Refer to EMR; Reason: Pain; Clinical Question(s): Fracture; Hx of Present Illness: pt states beforechristmas she hurt wrist getting up, heard a crack had a xray done and was told that it wasn't broken. pt reports worsening pain radiating from right thumb to wrist and pain with flexion of thumb.;Other Objective Findings: pt alert, calm and cooperative, speaking clealry in full sentences, breath COMPARISON: None. FINDINGS: No fractures or bone lesions. No arthritic changes. Normal soft tissues. IMPRESSION: Normal. WSN: [id number] Dictated By: Kamryn Haines MD Dictated Date/Time: 02/18/19 10:15 a Reviewed By: Kamryn Haines MD Signed By: Kamryn Haines MD Signed Date/Time: 02/18/19 10:15 am Transcribed By: DEIDRE Transcribed Date/Time: 02/18/19 10:14 am Vital Signs Most recent to oldest [Reference Range]: 1 2 3 Weight 129 kg (02/18/19 10:43 AM) 129 kg (02/18/19 9:17 AM) 129 kg (02/18/19 6:15 AM) Oxygen Saturation [94-100 %] 97 % (02/18/19 10:43 AM) 98 % (02/18/19 9:17 AM) 96 % (02/18/19 6:15 AM) Pulse Rate [55-90 bpm] 92 bpm *H* (02/18/19 10:43 AM) 91 bpm *H* (02/18/19 9:17 AM) 95 bpm *H* (02/18/19 6:15 AM) Blood Pressure [90-138/55-84 mm Hg] 120/82mm Hg (02/18/19 10:43 AM) 136/91mm Hg (02/18/19 9:17 AM) 132/75mm Hg (02/18/19 6:15 AM) Respiratory Rate [16-30 br/min] 16 br/min (02/18/19 10:43 AM) 16 br/min (02/18/19 9:17 AM) 16 br/min (02/18/19 6:15 AM) Temperature [96.8-100.4 DegF] 98.1 DegF (02/18/19 10:43 AM) 98.4 DegF (02/18/19 9:17 AM) 98.3 DegF (02/18/19 6:15 AM) Mode of Delivery (Oxygen) Room air (02/18/19 10:43 AM) Room air (02/18/19 9:17 AM) Room air (02/18/19 6:15 AM) Blood pressure sites Arm, right (02/18/19 10:43 AM) Arm, right (02/18/19 9:17 AM) Arm, right (02/18/19 6:15 AM) Temperature Route Oral (02/18/19 10:43 AM) Oral (02/18/19 9:17 AM) Oral (02/18/19 6:15 AM) Dry Weight 129 kg (02/18/19 10:43 AM) 129 kg (02/18/19 9:17 AM) 129 kg (02/18/19 6:15 AM) Social History Social History Type Response Smoking Status Former smoker; Other : quit 04/2015; entered on: 01/30/16 Sex Female
--- OUTSIDE RECORDS SUMMARY | 2022-08-31 01:15 | XMS_ITS | Continuity of Care Document ---
Author Name Unknown Organization [facility] ter Address [address] [place] [address]- Care Team Providers Care Traveling Accountant Name Role Phone Jerica DO Darryldavidradha Gupta Primary Care Physician [place] [facility] [place] Date(s[place] 11/13/21 - 02/09/[address] [address]- Attending Physician: Donald Murphy MD Admitting Physician: [...] Acti ve Reglan severe restless legs Active Seafood Anaphylactic shock d ue to adverse food reaction Severe Active Compazine shortness of breath Active Tylenol hives Active Adhesive Bandage skin excoriation hives Active Contrast Dye hives itchy throat itchy Persistent Mild Active Latex vag rash Active Nexium diarrhea, vomitting Active Lyrica Angioedema Active Lantiseptic Skin Protectant Active Nicotine Patch ana cardia Active 1patient [...] to receive vaccine 2Admin Note: manufactured by [employer] Medications albuterol 0.042% inhalation solution 3 [...] 09/08/21 13:21:00 EDT, Route to Pharmacy Electronically, [facility] [facility], Partial fill upon [...] 0 Refills, Maintenance, 04/02/20 9:29:00 EST, Tablet, [facility] 3, Partial [...] 06/21/18 11:05:15 EDT, Route to Pharmacy Electronically, [id number], [facility] 3 Start [...] WITH PROLONGED DEPRESSIVE REACTION Confirmed 02/03/07 Active [facility] Team Senior Level Patient Confirmed Active ASTHMA [...] Team Personnel Name: Lola Belcher RN Position: [facility] RN Member Role: Primary Care Nurse Name: Jose Enrique Saul RN Position: [facility] RN Member Role: Primary Care Nurse Name: Symone Mckinnon RN Position: [facility] RN Member Role: Primary Care Nurse Name: Carolyn Pelaez RN Position: [facility] RN Member Role: Primary Care Nurse Name: Deanna Garcia RN Position: [facility] RN Member Role: Primary Care Nurse Name: Fanny Mixon RN Position: [facility] ED RN W/OE and Tasks Member Role: Primary Care Nurse Name: María Ashford RN Position: [facility] AMB Nurse Member Role: Primary Care Nurse Name: Chanelle Hernandez RN Position: [facility] PCO RN Member Role: Primary Care Nurse Name: Estelle García RN Position: [facility] RN Member Role: Primary Care Nurse Name: Deanne Rangel RN Position: [facility] RN Member Role: Primary Care Nurse Name: Carine Jimenez RN Position: [facility] SN RN Member Role: Primary Care Nurse Name: Jenelle Campo RN Position: [facility] RN Member Role: Primary Care Nurse Name: Keyla Godwin RN Position: [facility] RN Member Role: Primary Care Nurse Name: Yeimi Devine RN Position: [facility] RN Member Role: Primary Care Nurse Name: Mary Yan RN Position: [facility] RN Member Role: Primary Care Nurse Name: Iliana Pop RN Position: [facility] RN Member Role: Primary Care Nurse Name: Alcides Dueñas RN Position: [facility] RN Member Role: Primary Care Nurse Name: Lisa Beatty Position: [facility] Outreach Member Role: Lifetime Consulting Physician Name: Armida Beatty RN Position: [facility] RN Member Role: Primary Care Nurse Name: Roque Villasenor MD Position: [facility] Renal MD Member Role: Lifetime Consulting Physician Address: Address: [address] [place] [address], [address] [facility] [place], [place] [address] Name: Lashon Lovell RN Position: [facility] SN RN Member Role: Primary Care Nurse Name: Kristi Giraldo RN Position: [facility] RN Supv Member Role: Primary Care Nurse Name: Jerrod Casarez RN Position: [facility] RN Member Role: Primary Care Nurse Name: Rosalva Martin RN Position: [facility] RN Member Role: Primary Care Nurse Name: Armida Ochoa RN Position: [facility] RN Member Role: Primary Care Nurse Name: Deonna Murillo RN Position: [facility] RN Member Role: Primary Care Nurse Name: Felipa Diehl RN Position: [facility] HBO Wound Member Role: Primary Care Nurse Name: Evelin Powell RN Position: [facility] AMB Nurse Member Role: Primary Care Nurse Name: Deonna Pendleton RN Position: [facility] RN Member Role: Primary Care Nurse Name: Pili Kaba RN Position: [facility] GAGANDEEP RN W/OE and Tasks Member Role: Primary Care Nurse Name: Alejandro Yanes RN Position: [facility] RN Member Role: Primary Care Nurse Name: Stacey Díaz RN Position: [facility] SN RN Member Role: Primary Care Nurse Name: Jac Reese RN Position: [facility] RN Member Role: Primary Care Nurse Name: Celestine Schwartz RN Position: [facility] RN Member Role: Primary Care Nurse Name: Neeta Carpenter RN Position: [facility] RN Member Role: Primary Care Nurse Name: Susie Estrada RN Position: [facility] RN Member Role: Primary Care Nurse Name: Inna Cantor RN Position: [facility] RN Member Role: Primary Care Nurse Name: Chaparrita Pizano DO Position: [facility] Physician (General Medicine) Member Role: PCP Address: Address: [address] [place] [address]- Name: Ning Rolon RN Position: [facility] RN Member Role: Primary Care Nurse Name: Rubi Carrasco RN Position: [facility] SN RN Member Role: Primary Care Nurse Name: Lauryn Holden RN Position: [facility] RN Member Role: Primary Care Nurse Name: Shen Silvestre RN Position: [facility] RN Member Role: Primary Care Nurse Name: Jones Cervantes RN Position: [facility] RN Member Role: Primary Care Nurse Name: Olivia Caputo RN Position: [facility] RN Member Role: Primary Care Nurse Name: Brooklyn Jim RN Position: [facility] RN Member Role: Primary Care Nurse Name: Kimberly Santoro RN Position: [facility] RN Member Role: Primary Care Nurse Name: Haley Diamond RN Position: [facility] RN Member Role: Primary Care Nurse Name: Ashley Meléndez NP Position: [facility] PCO Associate Professional Member Role: Primary Care Nurse Address: Address: [address] [place] [address]- Name: Siomara Patricia [facility] RN Member Role: Primary Care Nurse Name: Neeta Painter RN Position: [facility] RN Member Role: Primary Care Nurse Name: Edith Drummond RN Position: [facility] RN Member Role: Primary Care Nurse Name: Bailey Espinal RN Position: [facility] AMB Nurse Member Role: Primary Care Nurse Name: Brooklyn Ramsey RN Position: [facility] RN Member Role: Primary Care Nurse Name: Keyla Bright RN Position: [facility] RN Member Role: Primary Care Nurse Name: Beverley Tatum RN Position: [facility] RN Member Role: Primary Care Nurse Name: Mainor Devries RN Position: [facility] RN Member Role: Primary Care Nurse Name: Yarely Richards RN Position: [facility] Tech Member Role: Primary Care Nurse Name: Oralia Massey RN Position: [facility] RN Member Role: Primary Care Nurse Name: Rich WILSON pee Position: [facility] RN Member Role: Primary Care Nurse Name: Taiwo Mcgregor RN Position: [facility] RN Member Role: Primary Care Nurse Name: Cally Funes RN Position: [facility] SN RN Member Role: Primary Care Nurse Name: Marina Osorio Position: [facility] RN Member Role: Primary Care Nurse Name: Lisa Blanton RN Position: [facility] Tech Member Role: Primary Care Nurse Name: Danica Stuart RN Position: [facility] AMB Nurse Member Role: Primary Care Nurse Name: Shruthi Ray RN Position: [facility] RN Member Role: Primary Care Nurse Name: Abbe Choe RN Position: [facility] RN Supv Member Role: Primary Care Nurse Name: Farideh Cat LPN Position: [facility] RN Member Role: Primary Care Nurse Name: Janis [place] RN Position: [facility] Tech Member Role: Primary Care Nurse Name: Darrian Chang RN Position: [facility] Tech Member Role: Primary Care Nurse Name: Jerry Mcneill RN Position: [facility] RN Member Role: Primary Care Nurse Care Team Related Persons Name: IVAN VILLASENOR Address: [place] [address] Name: REYNALDO KAUR Address: home [address] [place] [address] Name: EMMA SERRANO Address: home [address] [address] Name: PTARICK MATA Address: home [address] [place] [address] Name: FARIDEH POPE Address: [place] [address]
--- OUTSIDE RECORDS SUMMARY | 2022-08-31 01:15 | XMS_ITS | Continuity of Care Document ---
Author Name Unknown Organization [facility] Address [address] [place] [address]- Care Team Providers Care Almond Huller Name Role Phone Chaparrita Pizano DO Primary Care Physician Encounter [facility] [place] Date(s): 10/17/20 - 01/03/21 [facility] [address] [place] [address]- Attending Physician: Piter Cam MD Admitting Physician: [...] Patch ana cardia Active Lyrica Angioedema Active morphine 2, 3, 4 hives Active Compazine shortness of breath Active Lantiseptic Skin Protectant Active 1patient tolerated [...] to receive vaccine 2Admin Note: manufactured by [employer] Medications albuterol 0.042% inhalation solution 3 [...] EDT, Tablet, [facility]/pharmacy #[id number], Partial fill upon patient request... Start Date: [...] Maintenance, 04/02/20 9:29:00 EST, Tablet, [facility], Partial fill upon patient request [...] 08/30/17 8:21:42 EDT, Route to Pharmacy Electronically, [id number], [facility]/pharmacy #[id number] Start Date: 08/30/17 Status: Ordered Tums 500 mg oral tablet, chewable 500 mg, 1, tablet, Chew, Every 4 hours, PRN, # 180 tablet, Refills 0, Tot. Refills 0, Maintenance, Dyspepsia, 06/21/18 11:05:15 EDT, Route to Pharmacy Electronically, [id number], [facility] [facility] Start Date: 06/21/18 [...] WITH PRO LONGED DEPRESSIVE REACTION(Confirmed) 02/03/07 Active [facility] Emeral d Team Senior Level Patient(Confirmed) [...]
--- OUTSIDE RECORDS SUMMARY | 2022-08-31 01:15 | XMS_ITS | Continuity of Care Document ---
Author Name Unknown Organization [facility] ter Address [address] [place] [address]- Care Team Providers Care Curtain Supervisor Name Role Phone Darryl Pizano DOdavidradha Gupta Primary Care Physician Encounter [facility] Date(s): 08/20/21 - 12/25/[address] [address]- Attending Physician: Donald Murphy MD Admitting Physician: [...] to receive vaccine 2Admin Note: manufactured by [employer] Medications albuterol 0.042% inhalation solution 3 [...] 09/08/21 13:21:00 EDT, Route to Pharmacy Electronically, [facility], Partial fill upon patient [...] Refills, Maintenance, 04/02/20 9:29:00 EST, Tablet, [facility] 3, Partial fill upon patient [...] 06/21/18 11:05:15 EDT, Route to Pharmacy Electronically, [id number], [facility] 3 Start Date: 06/21/18 Status: Ordered [...] WITH PROLONGED DEPRESSIVE REACTION Confirmed 02/03/07 Active [facility] [place] Team Senior Level Patient Confirmed Active ASTHMA [...] Name: Lola Belcher RN Position: [facility] RN Member Role: Primary Care Nurse Name: Jose Enrique Saul RN Position: [facility] RN Member Role: Primary Care Nurse Name: Symone Mckinnon RN Position: [facility] RN Member Role: Primary Care Nurse Name: Carolyn Pelaez RN Position: [facility] RN Member Role: Primary Care Nurse Name: Deanna Garcia RN Position: [facility] RN Member Role: Primary Care Nurse Name: Fanny Mixon RN Position: [facility] ED RN W/OE and Tasks Member Role: Primary Care Nurse Name: María Ashford RN Position: [facility] AMB Nurse Member Role: Primary Care Nurse Name: Chanelle Hernandez RN Position: [facility] PCO RN Member Role: Primary Care Nurse Name: Estelle García RN Position: [facility] RN Member Role: Primary Care Nurse Name: Deanne Rangel RN Position: [facility] RN Member Role: Primary Care Nurse Name: Carine Jimenez RN Position: [facility] SN RN Member Role: Primary Care Nurse Name: Jenelle Campo RN Position: [facility] RN Member Role: Primary Care Nurse Name: Keyla Godwin RN Position: [facility] RN Member Role: Primary Care Nurse Name: Yeimi Devine RN Position: [facility] RN Member Role: Primary Care Nurse Name: Mary Yan RN Position: [facility] RN Member Role: Primary Care Nurse Name: Iliana Pop RN Position: [facility] RN Member Role: Primary Care Nurse Name: Alcides Dueñas RN Position: [facility] RN Member Role: Primary Care Nurse Name: Lisa Beatty Position: [facility] Outreach Member Role: Lifetime Consulting Physician Name: Armida Beatty RN Position: [facility] RN Member Role: Primary Care Nurse Name: Roque Villasenor MD Position: [facility] Renal MD Member Role: Lifetime Consulting Physician Address: Address: [address] [place] [address], [address] [facility] [address] Name: Lashon Lovell RN Position: [facility] SN RN Member Role: Primary Care Nurse Name: Kristi Giraldo RN Position: [facility] RN Supv Member Role: Primary Care Nurse Name: Jerrod Casarez RN Position: [facility] RN Member Role: Primary Care Nurse Name: Rosalva Martin RN Position: [facility] RN Member Role: Primary Care Nurse Name: Armida Ochoa RN Position: [facility] RN Member Role: Primary Care Nurse Name: Deonna Murillo RN Position: [facility] RN Member Role: Primary Care Nurse Name: Felipa Diehl RN Position: [facility] HBO Wound Member Role: Primary Care Nurse Name: Evelin Powell RN Position: [facility] AMB Nurse Member Role: Primary Care Nurse Name: Deonna Pendleton RN Position: [facility] RN Member Role: Primary Care Nurse Name: Pili aKba RN Position: [facility] RN Member Role: Primary Care Nurse Name: Alejandro Yanes RN Position: [facility] RN Member Role: Primary Care Nurse Name: Stacey Díaz RN Position: [facility] SN RN Member Role: Primary Care Nurse Name: Jac Reese RN Position: [facility] RN Member Role: Primary Care Nurse Name: Celestine Schwartz RN Position: [facility] RN Member Role: Primary Care Nurse Name: Neeta Carpenter RN Position: [facility] RN Member Role: Primary Care Nurse Name: Susie Estrada RN Position: [facility] RN Member Role: Primary Care Nurse Name: Inna Cantor RN Position: [facility] RN Member Role: Primary Care Nurse Name: Chaparrita Pizano DO Position: [facility] Physician (General Medicine) Member Role: PCP Address: Address: [address] [place] [address]- Name: Ning Rolon RN Position: [facility] RN Member Role: Primary Care Nurse Name: Rubi Carrasco RN Position: [facility] SN RN Member Role: Primary Care Nurse Name: Lauryn Holden RN Position: [facility] RN Member Role: Primary Care Nurse Name: Shen Silvestre RN Position: [facility] RN Member Role: Primary Care Nurse Name: Jones Cervantes RN Position: [facility] RN Member Role: Primary Care Nurse Name: Olivia Caputo RN Position: [facility] RN Member Role: Primary Care Nurse Name: Brooklyn Jim RN Position: [facility] RN Member Role: Primary Care Nurse Name: Kimberly Santoro RN Position: [facility] RN Member Role: Primary Care Nurse Name: Haley Diamond RN Position: [facility] RN Member Role: Primary Care Nurse Name: Ashley Meléndez NP Position: [facility] PCO Associate Professional Member Role: Primary Care Nurse Address: Address: [address] [place] [address] 3rd [place] [address]- Name: Siomara Patricia RN Position: [facility] PCO RN Member Role: Primary Care Nurse Name: Neeta Painter RN Position: [facility] RN Member Role: Primary Care Nurse Name: Edith Drummond RN Position: [facility] RN Member Role: Primary Care Nurse Name: Bailey Espinal RN Position: [facility] AMB Nurse Member Role: Primary Care Nurse Name: Brooklyn Ramsey RN Position: [facility] RN Member Role: Primary Care Nurse Name: Keyla Bright RN Position: [facility] RN Member Role: Primary Care Nurse Name: Beverley Tatum RN Position: [facility] RN Member Role: Primary Care Nurse Name: Mainor Devries RN Position: [facility] RN Member Role: Primary Care Nurse Name: Yarely Richards RN Position: [facility] Marine Equipment Sales Engineer Member Role: Primary Care Nurse Name: Oralia Massey RN Position: [facility] RN Member Role: Primary Care Nurse Name: Cassie Villanueva RN Position: [facility] RN Member Role: Primary Care Nurse Name: Taiwo Mcgregor RN Position: [facility] RN Member Role: Primary Care Nurse Name: Cally Funes RN Position: [facility] SN RN Member Role: Primary Care Nurse Name: Marina Osorio Position: [facility] RN Member Role: Primary Care Nurse Name: Lisa Blanton RN Position: [facility] Marine Equipment Sales Engineer Member Role: Primary Care Nurse Name: Danica Stuart RN Position: [facility] AMB Nurse Member Role: Primary Care Nurse Name: Shruthi Ray RN Position: [facility] RN Member Role: Primary Care Nurse Name: Abbe Choe RN Position: [facility] RN Supv Member Role: Primary Care Nurse Name: Farideh Cat LPN Position: [facility] RN Member Role: Primary Care Nurse Name: Janis Morris RN Position: [facility] Marine Equipment Sales Engineer Member Role: Primary Care Nurse Name: Darrian Chang RN Position: [facility] Marine Equipment Sales Engineer Member Role: Primary Care Nurse Name: Jerry Mcneill RN Position: [facility] RN Member Role: Primary Care Nurse Care Team Related Persons Name: IVAN VILLASENOR Address: [place] [address] Name: REYNALDO KAUR Address: home [address] [place] [address] Name: EMMA SERRANO Address: home [address] [address] Name: PATRICK MATA Address: home [address] [place] [address] Name: FARIDEH POPE Address: [place] [address]
--- OUTSIDE RECORDS SUMMARY | 2022-08-31 01:16 | XMS_ITS | Continuity of Care Document ---
Author Name Unknown Organization [facility] ter Address [address] [place] [address]- Care Team Providers Care Appointment Scheduler Name Role Phone Darryl Pizano DOdvaidradha Gupta Primary Care Physician ( [phone] Encounter [facility] Date(s): 04/16/20 - 05/23/[address] [address] Attending Physician: Alina Rodgers MD Admitting Physician: Alina Rodgers MD Referring Physician: Adelina CHEMICAL ENGINEERING TECHNICIAN, Shanika Kwon Allergies, Adverse Reactions, Alerts Substance Reaction Severity Status doxycycline mouth swelling Active ceftriaxone hives Active Zofran 1 can only be given w/ benadryl hives Active penicillin throat swelling Rash Persistent Severe Active famotidine vomiting Active morphine 2, 3, 4 hives Active iodine topical swelling itching Active Pepcid vomitng Active Adhesive Bandage skin excoriation hives Active Levaquin tingling in mouth, rash [...] 13:23:00 EST, Solution, [facility][id number], Partial fill upon patient request if the [...] 0 Refills, Soft Stop, 04/09/20 13:16:00 EST, [facility] 3, Partial fill upon patient request [...] 0 Refills, Maintenance, 04/02/20 9:29:00 EST, Tablet, [facility] 3, Partial fill upon patient request if the prescription is for a schedule II opioid drug., 154.94, cm, 0... Start Date: 04/02/20 Status: Ordered oxyCODONE 10 mg oral tablet 2 tablet = 20 mg, By Mouth, Every 6 hours, PRN Pain , Severe, take 1 tab for less severe pain, # 56tablet, 0 Refills, Maintenance, 05/20/20 9:20:00 EDT, Tablet, [facility]/pharmacy #[id number], Partial fill uponpatient request if the prescription [...] 08/30/17 8:21:42 EDT, Route to Pharmacy Electronically, [id number], [facility]/pharmacy #[id number] Start Date: 08/30/17 Status: Ordered Tums 500 mg oral tablet, chewable 500 mg, 1, tablet, Chew, Every 4 hours, PRN, # 180 tablet, Refills 0, Tot. Refills 0, Maintenance, Dyspepsia, 06/21/18 11:05:15 EDT, Route to Pharmacy Electronically, [id number], [facility] Start Date: [...] WITH PRO LONGED DEPRESSIVE REACTION(Confirmed) 02/03/07 Active [facility] Emeral d Team Senior Level [...]
--- OUTSIDE RECORDS SUMMARY | 2022-08-31 01:16 | XMS_ITS | Continuity of Care Document ---
Author Name Unknown Organization [facility] ter Address [address] [place] [address]- Care Team Providers Care Special Education Math Teacher Name Role Phone Darryl Pizano DOdavidradha Gupta Primary Care Physician ( [phone] Encounter [facility] Date(s): 11/13/21 - 03/08/[address] [address]- Attending Physician: Donald Murphy MD Admitting Physician: [...] to receive vaccine 2Admin Note: manufactured by [employer] Medications albuterol 0.042% inhalation solution 3 [...] 09/08/21 13:21:00 EDT, Route to Pharmacy Electronically, [facility], Partial fill upon patient [...] tablet, 0 Refills, Maintenance, 04/02/20 9:29:00 EST, [facility], Partial fill upon patient request [...] 06/21/18 11:05:15 EDT, Route to Pharmacy Electronically, [id number], [facility] Start Date: 06/21/18 [...] WITH PROLONGED DEPRESSIVE REACTION Confirmed 02/03/07 Active [facility] [place] Team Senior Level Patient Confirmed Active ASTHMA [...] Team Personnel Name: Lola Belcher RN Position: [facility] RN Member Role: Primary Care Nurse Name: Jose Enrique Saul RN Position: [facility] RN Member Role: Primary Care Nurse Name: Symone Mckinnon RN Position: [facility] RN Member Role: Primary Care Nurse Name: Carolyn Pelaez RN Position: [facility] RN Member Role: Primary Care Nurse Name: Deanna Garcia RN Position: S RN Member Role: Primary Care Nurse Name: Fanny Mixon RN Position: [facility] ED RN W/OE and Tasks Member Role: Primary Care Nurse Name: María Ashford RN Position: [facility] AMB Nurse Member Role: Primary Care Nurse Name: Chanelle Hernandez RN Position: [facility] PCO RN Member Role: Primary Care Nurse Name: Estelle García RN Position: [facility] RN Member Role: Primary Care Nurse Name: Deanne Rangel RN Position: [facility] RN Member Role: Primary Care Nurse Name: Carine Jimenez RN Position: [facility] RN Member Role: Primary Care Nurse Name: Jenelle Campo RN Position: [facility] RN Member Role: Primary Care Nurse Name: Keyla Godwin RN Position: [facility] RN Member Role: Primary Care Nurse Name: Yeimi Devine RN Position: [facility] RN Member Role: Primary Care Nurse Name: Mary Yan RN Position: [facility] RN Member Role: Primary Care Nurse Name: Iliana Pop RN Position: [facility] RN Member Role: Primary Care Nurse Name: Alcides Dueñas RN Position: [facility] RN Member Role: Primary Care Nurse Name: Lisa Beatty Position: [facility] Outreach Member Role: Lifetime Consulting Physician Name: Armida Beatty RN Position: [facility] RN Member Role: Primary Care Nurse Name: Roque Villasenor MD Position: [facility] Renal MD Member Role: Lifetime Consulting Physician Address: Address: [address] [place] [address], [address] [facility] [address] Name: Lashon Lovell RN Position: [facility] SN RN Member Role: Primary Care Nurse Name: Kristi Giraldo RN Position: [facility] RN Supv Member Role: Primary Care Nurse Name: Jerrod Casarez RN Position: [facility] RN Member Role: Primary Care Nurse Name: Shane Riley RN Position: [facility] RN Member Role: Primary Care Nurse Name: Rosalva Martin RN Position: [facility] RN Member Role: Primary Care Nurse Name: Sheela Matt RN Position: [facility] RN Member Role: Primary Care Nurse Name: Armida Ochoa RN Position: [facility] RN Member Role: Primary Care Nurse Name: Deonna Murillo RN Position: [facility] RN Member Role: Primary Care Nurse Name: Felipa Diehl RN Position: [facility] HBO Wound Member Role: Primary Care Nurse Name: Evelin Powell RN Position: [facility] AMB Nurse Member Role: Primary Care Nurse Name: Deonna Pendleton RN Position: [facility] RN Member Role: Primary Care Nurse Name: Pili Kaba RN Position: [facility] RN Member Role: Primary Care Nurse Name: Alejandro Yanes RN Position: [facility] RN Member Role: Primary Care Nurse Name: Stacey Díaz RN Position: [facility] SN RN Member Role: Primary Care Nurse Name: Jac Reese RN Position: [facility] RN Member Role: Primary Care Nurse Name: Celestine Schwartz RN Position: [facility] RN Member Role: Primary Care Nurse Name: Neeta Carpenter RN Position: [facility] RN Member Role: Primary Care Nurse Name: Susie Estrada RN Position: [facility] RN Member Role: Primary Care Nurse Name: Inna Cantor RN Position: [facility] RN Member Role: Primary Care Nurse Name: Chaparrita Pizano DO Position: [facility] Physician (General Medicine) Member Role: PCP Address: Address: [address] [place] [address]- Name: Ning Rolon RN Position: [facility] RN Member Role: Primary Care Nurse Name: Rubi Carrasco RN Position: [facility] SN RN Member Role: Primary Care Nurse Name: Lauryn Holden RN Position: [facility] RN Member Role: Primary Care Nurse Name: Shen Silvestre RN Position: [facility] RN Member Role: Primary Care Nurse Name: Jones Cervantes RN Position: [facility] RN Member Role: Primary Care Nurse Name: Olivia Caputo RN Position: [facility] RN Member Role: Primary Care Nurse Name: Brooklyn Jim RN Position: [facility] RN Member Role: Primary Care Nurse Name: Kimberly Santoro RN Position: [facility] RN Member Role: Primary Care Nurse Name: Haley Diamond RN Position: [facility] RN Member Role: Primary Care Nurse Name: Ashley Meléndez NP Position: [facility] PCO Associate Professional Member Role: Primary Care Nurse Address: Address: [address] [place] [address] [address] [place] [address]- [place] Name: Siomara Patricia RN Position: [facility] PCO RN Member Role: Primary Care Nurse Name: Neeta Painter RN Position: [facility] RN Member Role: Primary Care Nurse Name: Edith Drummond RN Position: [facility] RN Member Role: Primary Care Nurse Name: Bailey Espinal RN Position: [facility] AMB Nurse Member Role: Primary Care Nurse Name: Brooklyn Ramsey RN Position: [facility] RN Member Role: Primary Care Nurse Name: Keyla Bright RN Position: [facility] RN Member Role: Primary Care Nurse Name: Beverley Tatum RN Position: [facility] RN Member Role: Primary Care Nurse Name: Mainor Devries RN Position: [facility] RN Member Role: Primary Care Nurse Name: Yarely Richards RN Position: [facility] Merchandising Intern Member Role: Primary Care Nurse Name: Oralia Massey RN Position: [facility] RN Member Role: Primary Care Nurse Name: Rich WILOSN pee Position: [facility] RN Member Role: Primary Care Nurse Name: Taiwo Mcgregor RN Position: [facility] RN Member Role: Primary Care Nurse Name: Cally Funes RN Position: [facility] SN RN Member Role: Primary Care Nurse Name: Marina Osorio Position: [facility] RN Member Role: Primary Care Nurse Name: Lisa Blanton RN Position: [facility] Merchandising Intern Member Role: Primary Care Nurse Name: Danica Stuart RN Position: [facility] AMB Nurse Member Role: Primary Care Nurse Name: Virginia Bacon RN Position: [facility] RN Member Role: Primary Care Nurse Name: Shruthi Ray RN Position: [facility] RN Member Role: Primary Care Nurse Name: Abbe Choe RN Position: [facility] RN Supv Member Role: Primary Care Nurse Name: Farideh Cat LPN Position: [facility] RN Member Role: Primary Care Nurse Name: Janis Morris RN Position: [facility] Merchandising Intern Member Role: Primary Care Nurse Name: Darrian Chang RN Position: [facility] Merchandising Intern Member Role: Primary Care Nurse Name: Josef Woods RN Position: [facility] RN Member Role: Primary Care Nurse Name: Siomara Raphael Position: [facility] RN Member Role: Primary Care Nurse Name: Jerry Mcneill RN Position: [facility] RN Member Role: Primary Care Nurse Care Team Related Persons Name: IVAN VILLASENOR Address: [place] [address] Name: REYNALDO KAUR Address: home [address] [place] [address] Name: EMMA SERRANO Address: home [address] [address] Name: PATRICK MATA Address: home [address] [place] [address] Name: FARIDEH POPE Address: [place] [address]
--- OUTSIDE RECORDS SUMMARY | 2022-08-31 01:16 | XMS_ITS | Continuity of Care Document ---
Author Name Unknown Organization [facility] FILL TECHNICIAN Oncolog y Address [address] [place] [address]- Care Team Providers Care Offset Press Operator Helper Name Role Phone Chaparrita Pizano DO Primary Care Physician En[place] [facility] [place] Date(s): 05/09/20 - 06/08/20 [facility] FILL TECHNICIAN Oncology [address] [place], [place] [address] Allergies, Adverse Reactions, Alerts Substance Reaction [...] 1 02/02/07 Given 1Admin Note: manufactured by [employer] Medications albuterol 0.042% inhalation solution 3 [...] 0 Refills, Maintenance, 04/03/20 13:23:00 EST, Solution, [facility]/pharmacy #[id number], Partial fill upon patient request if the [...] 0 Refills, Maintenance, 05/30/20 15:57:00 EDT, Tablet, [facility]/pharmacy #[id number], Partial fill upon patient request if the [...] 08/30/17 8:21:42 EDT, Route to Pharmacy Electronically, [id number], [facility]/pharmacy #[id number] Start Date: 08/30/17 Status: Ordered Tums 500 mg oral tablet, chewable 500 mg, 1, tablet, Chew, Every 4 hours, PRN, # 180 tablet, Refills 0, Tot. Refills 0, Maintenance, Dyspepsia, 06/21/18 11:05:15 EDT, Route to Pharmacy Electronically, [id number], [facility] Start Date: [...] WITH PRO LONGED DEPRESSIVE REACTION(Confirmed) 02/03/07 Active [facility] Emeral d Team Senior [...]
--- OUTSIDE RECORDS SUMMARY | 2022-08-31 01:16 | XMS_ITS | Continuity of Care Document ---
Author Name Unknown Organization [facility] [employer] OFFICER Oncolog y Address [address] [place] [address]- Care Team Providers Care Ice Cream Server Name Role Phone Chaparrita Pizano DO Primary Care Physician Encounter [facility] [place] Date(s): 12/27/19 - 01/26/20 [facility] [employer] OFFICER Oncology [address] [place], [place] [address] Attending Physician: Admtr, Christopher8 Admitting Physician: Admtr, Jamie Referring Physician: Admtr, [...] 11:42:54 EDT, Aerosol, Route to Pharmacy Electronically, [id number], [facility]/pharmacy #[id number], Compound Start Date: 06/10/17 Status: [...] capsule, 0 Refills, Maintenance, 05/02/19 10:52:00 EDT, [facility]/pharmacy #[id number], 155.9, cm, 04/26/19 9:14:00 EDT, [...] 05/05/18 9:38:51 EDT, Route to Pharmacy Electronically, [id number]... Start Date: 05/05/18 Status: Ordered Insulin Glargine Inj 0.6 mL = 60 units, Subcutaneous Injection, Daily at bedtime, 0 Refills, Maintenance, 08/20/19 18:48:00 EDT, Injection Start Date: 08/20/19 Status: Ordered LORazepam 0.5 mg oral tablet See Instructions, Take 1 tablet by mouth 1 hour prior to biopsy appointment, may repeat x1 if needed, # 2 tablet, 0 Refills, Maintenance, 04/27/19 16:33:00 EDT, [facility]/pharmacy #[id number], 155.9, cm, 04/26/19 9:14:00 EDT, [...] each, 2 Refills, Maintenance, 12/05/19 20:53:00 EDT, [facility], 155, cm, 08/20/19 16:31:00 EDT, [...] 0, Tot. Refills 0, Maintenance, for pain, 01/17/20 8:12:00 EST, Route to Pharmacy Electronically, [facility]/pharmacy #[id number], Partial fillupon patient request, 155, cm, 08/20/19 16:31:00 ED... Start Date: 01/17/20 Status: Ordered potassium chloride 8 mEq (600 [...] 08/30/17 8:21:42 EDT, Route to Pharmacy Electronically, [id number], [facility]/pharmacy #[id number] Start Date: 08/30/17 [...] 06/21/18 11:05:15 EDT, Route to Pharmacy Electronically, [id number], [facility] [facility] Start Date: [...] WITH PRO LONGED DEPRESSIVE REACTION(Confirmed) 02/03/07 Active [facility] Emeral d Team Senior Level [...]
--- OUTSIDE RECORDS SUMMARY | 2022-08-31 01:16 | XMS_ITS | Continuity of Care Document ---
Author Name Unknown Organization [facility] Address [address] [place] [address]- Care Team Providers Care Circuit Court Judge Name Role Phone Jerica Chaparrita DO Primary Care Physician Encounter [facility] [place] Date(s): 09/14/21 - 10/14/21 [facility] [address] [place] [address]- [place] Allergies, Adverse Reactions, Alerts Substance Reaction [...] to receive vaccine 2Admin Note: manufactured by [employer] Medications albuterol 0.042% inhalation solution 3 [...] 09/08/21 13:21:00 EDT, Route to Pharmacy Electronically, [facility] [facility], Partial fill upon [...] 08/31/22 13:22:00 EDT, 08/31/20 13:21:00 EDT, Syrup, [facility]/pharmacy #[id number], Partial fill upon [...] Maintenance, 04/02/20 9:29:00 EST, Tablet, [facility] 3, [...] 06/21/18 11:05:15 EDT, Route to Pharmacy Electronically, [id number], [facility] 3 Start Date: 06/21/18 Status: Ordered [...] WITH PRO LONGED DEPRESSIVE REACTION(Confirmed) 02/03/07 Active [facility] Emeral d Team Senior Level [...] Personnel Name: Chaparrita Pizano DO Address: [address] [place], [place] [address]
--- OUTSIDE RECORDS SUMMARY | 2022-08-31 01:16 | XMS_ITS | Continuity of Care Document ---
Author Name Unknown Organization [facility] ter Address [address] [place] [address]- Care Team Providers Care Orthodontic Laboratory Technician Name Role Phone Darryl Pizano DOdavidradha Gupta Primary Care Physician Encounter [facility] [place] Date(s): 08/20/21 - 12/21/[address] [address]- Attending Physician: Donald Murphy MD Admitting Physician: [...] to receive vaccine 2Admin Note: manufactured by [employer] Medications albuterol 0.042% inhalation solution [...] 09/08/21 13:21:00 EDT, Route to Pharmacy Electronically, [facility], Partial fill upon patient request if the prescr... Start Date: 09/08/21 Stop Date: 10/08/21 Status: Ordered Insulin Glargine = 35 units, [...] 08/31/22 13:22:00 EDT, 08/31/20 13:21:00 EDT, Syrup, [facility]/pharmacy #[id number], Partial fill upon [...] 0 Refills, Maintenance, 04/02/20 9:29:00 EST, Tablet, [facility], Partial fill upon patient request [...] 06/21/18 11:05:15 EDT, Route to Pharmacy Electronically, [id number], [facility] Start Date: 06/21/18 [...] WITH PROLONGED DEPRESSIVE REACTION Confirmed 02/03/07 Active [facility] [place] Team Senior Level Patient Confirmed Active ASTHMA [...] Care Nurse Name: Symone Mckinnon RN Position: S RN Member Role: Primary Care Nurse Name: Carolyn Pelaez RN Position: S RN Member Role: Primary Care Nurse Name: Deanna Garcia RN Position: S RN Member Role: Primary Care Nurse Name: Fanny Mixon RN Position: [facility] ED RN W/OE and Tasks Member Role: Primary Care Nurse Name: María Ashford RN Position: [facility] AMB Nurse Member Role: Primary Care Nurse Name: Chanelle Hernandez RN Position: [facility] PCO RN Member Role: Primary Care Nurse Name: Estelle García RN Position: [facility] RN Member Role: Primary Care Nurse Name: Deanne Rangel RN Position: [facility] RN Member Role: Primary Care Nurse Name: Carine Jimenez RN Position: [facility] SN RN Member Role: Primary Care Nurse Name: Jenelle Campo RN Position: [facility] RN Member Role: Primary Care Nurse Name: Keyla Godwin RN Position: [facility] RN Member Role: Primary Care Nurse Name: Yeimi Devine RN Position: [facility] RN Member Role: Primary Care Nurse Name: Mary Yan RN Position: [facility] RN Member Role: Primary Care Nurse Name: Iliana Pop RN Position: [facility] RN Member Role: Primary Care Nurse Name: Alcides Dueñas RN Position: [facility] RN Member Role: Primary Care Nurse Name: Lisa Beatty Position: [facility] Outreach Member Role: Lifetime Consulting Physician Name: Armida Beatty RN Position: [facility] RN Member Role: Primary Care Nurse Name: Roque Villasenor MD Position: [facility] Renal MD Member Role: Lifetime Consulting Physician Address: Address: [address] [place] [address], [address] [facility] [address] Name: Lashon Lovell RN Position: [facility] SN RN Member Role: Primary Care Nurse Name: Kristi Giraldo RN Position: [facility] RN Supv Member Role: Primary Care Nurse Name: Jerrod Casarez RN Position: [facility] RN Member Role: Primary Care Nurse Name: Rosalva Martin RN Position: [facility] RN Member Role: Primary Care Nurse Name: Armida Ochoa RN Position: [facility] RN Member Role: Primary Care Nurse Name: Deonna Murillo RN Position: [facility] RN Member Role: Primary Care Nurse Name: Felipa Diehl RN Position: [facility] HBO Wound Member Role: Primary Care Nurse Name: Evelin Powell RN Position: [facility] AMB Nurse Member Role: Primary Care Nurse Name: Deonna Pendleton RN Position: [facility] RN Member Role: Primary Care Nurse Name: Pili Kaba RN Position: [facility] RN Member Role: Primary Care Nurse Name: Alejandro Yanes RN Position: [facility] RN Member Role: Primary Care Nurse Name: Stacey Díaz RN Position: [facility] SN RN Member Role: Primary Care Nurse Name: Jac Reese RN Position: [facility] RN Member Role: Primary Care Nurse Name: Celestine Schwartz RN Position: [facility] RN Member Role: Primary Care Nurse Name: Neeta Carpenter RN Position: [facility] RN Member Role: Primary Care Nurse Name: Susie Estrada RN Position: [facility] RN Member Role: Primary Care Nurse Name: Inna Cantor RN Position: [facility] RN Member Role: Primary Care Nurse Name: Chaparrita Pizano DO Position: [facility] Physician (General Medicine) Member Role: PCP Address: Address: [address] [place] [address]- Name: Ning Rolon RN Position: [facility] RN Member Role: Primary Care Nurse Name: Rubi Carrasco RN Position: [facility] SN RN Member Role: Primary Care Nurse Name: Lauryn Holden RN Position: [facility] RN Member Role: Primary Care Nurse Name: Shen Silvestre RN Position: [facility] RN Member Role: Primary Care Nurse Name: Jones Cervantes RN Position: [facility] RN Member Role: Primary Care Nurse Name: Olivia Caputo RN Position: [facility] RN Member Role: Primary Care Nurse Name: Brooklyn Jim RN Position: [facility] RN Member Role: Primary Care Nurse Name: Kimberly Santoro RN Position: [facility] RN Member Role: Primary Care Nurse Name: Haley Diamond RN Position: [facility] RN Member Role: Primary Care Nurse Name: Ashley Meléndez NP Position: [facility] PCO Associate Professional Member Role: Primary Care Nurse Address: Address: [address] [place] [address]- [place] Name: Siomara Patricia RN Position: [facility] PCO RN Member Role: Primary Care Nurse Name: Neeta Painter RN Position: [facility] RN Member Role: Primary Care Nurse Name: Edith Drummond RN Position: [facility] RN Member Role: Primary Care Nurse Name: Bailey Espinal RN Position: [facility] AMB Nurse Member Role: Primary Care Nurse Name: Brooklyn Ramsey RN Position: [facility] RN Member Role: Primary Care Nurse Name: Keyla Bright RN Position: [facility] RN Member Role: Primary Care Nurse Name: Beverley Tatum RN Position: [facility] RN Member Role: Primary Care Nurse Name: Mainor Devries RN Position: [facility] RN Member Role: Primary Care Nurse Name: Yarely Richards RN Position: [facility] [employer] Tr[employer] Worker Member Role: Primary Care Nurse Name: Oralia Massey RN Position: [facility] RN Member Role: Primary Care Nurse Name: Cassie Villanueva RN Position: [facility] RN Member Role: Primary Care Nurse Name: Taiwo Mcgregor RN Position: [facility] RN Member Role: Primary Care Nurse Name: Cally Funes RN Position: [facility] SN RN Member Role: Primary Care Nurse Name: Marina Osorio Position: [facility] RN Member Role: Primary Care Nurse Name: Lisa Blanton RN Position: [facility] [employer] Worker Member Role: Primary Care Nurse Name: Danica Stuart RN Position: [facility] AMB Nurse Member Role: Primary Care Nurse Name: Shruthi Ray RN Position: [facility] RN Member Role: Primary Care Nurse Name: Abbe Choe RN Position: [facility] RN Supcheyanne Member Role: Primary Care Nurse Name: Farideh Cat LPN Position: [facility] RN Member Role: Primary Care Nurse Name: Janis Morris RN Position: [facility] [employer] Worker Member Role: Primary Care Nurse Name: Darrian Chang RN Position: [facility] [employer] Worker Member Role: Primary Care Nurse Name: Jerry Mcneill RN Position: [facility] RN Member Role: Primary Care Nurse Care Team Related Persons Name: IVAN VILLASENOR Address: [place] [address] Name: REYNALDO KAUR Address: home [address] [place] [address] Name: EMMA SERRANO Address: [address] [address] Name: PATRICK MATA Address: home [address] [place] [address] Name: FARIDEH POPE Address: [place] [address]
--- OUTSIDE RECORDS SUMMARY | 2022-08-31 01:16 | XMS_ITS | Continuity of Care Document ---
Author Name Unknown Organization [facility] Address [address] [place] [address]- Care Team Providers Care Right Of Way Maintenance Supervisor Name Role Phone Jerica Chaparrita DO Primary Care Physician Encounter [facility] [place] Date(s): 05/31/22 - 07/22/22 [facility] [address] [place] [id number] Attending Physician: Antwan Melo MD Admitting Physician: Antwan Melo MD Allergies, Adverse Reactions, Alerts Substance Reaction [...] to receive vaccine 2Admin Note: manufactured by [employer] Medications albuterol CFC free 90 mcg/inh inhalation [...] 03/12/22 12:08:00 EST, Route to Pharmacy Electronically, [facility] [facility], Partial fill upon [...] 03/09/23 23:00:00 EST, 03/12/22 12:10:00 EST, Patch, [facility] [facility], Partial fill upon [...] tablet, 0 Refills, Maintenance, 04/02/20 9:29:00 EST, [facility], Partial fill upon patient request if the prescription is for a schedule II opioid drug., 154.94, cm, 04/02/20 8... Start Date: 04/02/20 Status: Ordered oxybutynin 5 mg/5 mL oral syrup 5 mL = 5 mg, By Mouth, 3 times a day, for bladder spasm, # 450 mL, 0 Refills, Maintenance, 06/16/2310:29:00 EDT, Syrup, [facility]/pharmacy #[id number], Partial fill upon patient [...] 03/12/22 12:06:00 EST, Route to Pharmacy Electronically, [facility] 3, Partial fill uponpatient request [...] 06/21/18 11:05:15 EDT, Route to Pharmacy Electronically, [id number], [facility] [facility] Start Date: 06/21/18 [...] WITH PROLONGED DEPRESSIVE REACTION Confirmed 02/03/07 Active [facility] Team Senior Level Patient Confirmed Active ASTHMA [...] Chanelle Hernandez RN Position: [facility] AMB Nurse Member Role: Primary Care Nurse Name: Estelle García RN Position: [facility] RN Member Role: Primary Care Nurse Name: Deanne Rangel RN Position: [facility] RN Member Role: Primary Care Nurse Name: Carine Jimenez RN Position: [facility] SN RN [...] Care Nurse Name: Clovis Wang RN Position: [facility] RN Member Role: Primary Care Nurse Name: Alcides Dueñas RN Position: [facility] RN Member Role: Primary Care Nurse Name: Lisa Beatty Position: [facility] Outreach Member Role: Lifetime Consulting Physician Name: Armida Beatty RN Position: [facility] RN Member Role: Primary Care Nurse Name: Deonna Beatty RN Position: [facility] RN Member Role: Primary Care Nurse Name: Roque Villasenor MD Position: [facility] Renal MD Member Role: Lifetime Consulting Physician Address: Address: [address] [place] [address], [address] [facility] [place] [address]- Name: Lashon Lovell RN Position: [facility] SN RN Member Role: Primary Care Nurse Name: Kristi Giraldo RN Position: [facility] RN Supv Member Role: Primary Care Nurse Name: Jerrod Casarez RN Position: [facility] RN Member Role: Primary Care Nurse Name: Shane Riley RN Position: [facility] RN Member Role: Primary Care Nurse Name: Isac Plascencia RN Position: [facility] RN Member [...] Care Nurse Name: Donald Murphy MD Position: [facility] Renal MD Member Role: Lifetime Consulting Physician Address: Address: [address] [place], [place] [address] [place] [address]- Name: Pili Kaba RN Position: [facility] RN Member Role: Primary Care Nurse Name: Alejandro Yanes RN Position: [facility] RN Member Role: Primary Care Nurse Name: Stacey Díaz RN Position: [facility] SN RN Member Role: Primary Care Nurse Name: Jac Reese RN Position: [facility] RN Member Role: Primary Care Nurse Name: Erica Maya Position: [facility] TA Member Role: Lifetime Consulting Physician Name: Celestine Schwarzt RN Position: [facility] RN Member [...] Medicine) Member Role: PCP Address: Address: [address] [place] [address]- Name: Ning Rolon RN [facility]: [facility] Member Role: Primary Care Nurse Address: Address: [address] [place] [address]- Name: Siomara Patricia RN Position: [facility] AMB Nurse Member Role: Primary Care Nurse Name: Neeta Painter RN Position: [facility] RN Member Role: Primary Care Nurse Name: Bailey Espinal RN Position: [facility] Nurse Member Role: Primary Care Nurse Name: Brooklyn Ramsey RN Position: [facility] RN Member Role: Primary Care Nurse Name: Keyla Bright RN Position: [facility] RN Member Role: Primary Care Nurse Name: Lesli Corcoran RN Position: [facility] RN Member Role: Primary Care Nurse Name: Beverley Tatum RN Position: [facility] RN Member Role: Primary Care Nurse Name: Mainor Devries RN Position: [facility] RN Member Role: Primary Care Nurse Name: Yarely Richards RN Position: [facility] Food [employer] Driver Member Role: Primary Care Nurse Name: Oralia Massey RN Position: [facility] RN Member Role: Primary Care Nurse Name: Cassie Villanueva RN Position: [facility] RN Member Role: Primary Care Nurse Name: Taiwo Mcgregor RN Position: [facility] RN Member Role: Primary Care Nurse Name: Cally Funes RN Position: [facility] SN RN Member Role: Primary Care Nurse Name: Marina Willard Position: [facility] MA Member Role: Primary Care Nurse Name: Lisa Blanton RN Position: [facility] Food Service Driver Member Role: Primary Care Nurse Name: Joel Blanton RN Position: [facility] RN Member Role: Primary Care Nurse Name: Danica Stuart RN Position: [facility] AMB Nurse Member Role: Primary Care Nurse Name: Virginia Bacon RN Position: [facility] RN Member Role: Primary Care Nurse Name: Shruthi Ray RN Position: [facility] Onco RN Member Role: Primary Care Nurse Name: Abbe Choe RN Position: [facility] RN Supv Member Role: Primary Care Nurse Name: Farideh Cat LPN Position: [facility] RN Member Role: Primary Care Nurse Name: Janis Morris RN Position: [facility] Food Service Driver Member Role: Primary Care Nurse Name: Darrian Chang RN Position: [facility] Food Service Driver Member Role: Primary Care Nurse Name: Josef Woods RN Position: [facility] RN Member Role: Primary Care Nurse Name: Siomara Raphael RN Position: [facility] RN Member Role: Primary Care Nurse Name: Jerry Mcneill RN Position: [facility] RN Member Role: Primary Care Nurse Care Team Related Persons Name: IVAN VILLASENOR Address: [place] [address] Name: REYNALDO KAUR Address: home [address] [place] [address] Name: EMMA SERRANO Address: home [address] [address] Name: PATRICK MATA Address: [address] [place] [address] Name: FARIDEH POPE Address: [place] [address]
--- OUTSIDE RECORDS SUMMARY | 2022-08-31 01:17 | XMS_ITS | Continuity of Care Document ---
Author Name Unknown Organization [facility] Address [address] [place] [address]- Care Team Providers Care Ed Transporter Name Role Phone Jerica Chaparrita DO Primary Care Physician Encounter [facility] [place] Date(s): 06/22/22 - 07/22/22 [facility] [address] [place] [address] Attending Physician: Jamie Gregorio Admitting Physician: AdmJamei hernandez Referring Physician: Admtr ArJacey Allergies, Adverse [...] to receive vaccine 2Admin Note: manufactured by [employer] Medications albuterol CFC free 90 mcg/inh [...] 03/12/22 12:08:00 EST, Route to Pharmacy Electronically, [facility] [...] 03/09/23 23:00:00 EST, 03/12/22 12:10:00 EST, Patch, [facility], Partial fill upon patient request if... [...] tablet, 0 Refills, Maintenance, 04/02/20 9:29:00 EST, [facility], Partial fill upon patient request if the prescription is for a schedule II opioid drug., 154.94, cm, 04/02/20 8... Start Date: 04/02/20 Status: Ordered oxybutynin 5 mg/5 mL oral syrup 5 mL = 5 mg, By Mouth, 3 times a day, for bladder spasm, # 450 mL, 0 Refills, Maintenance, 06/16/2310:29:00 EDT, Syrup, [facility]/pharmacy #[id number], Partial fill upon [...] 03/12/22 12:06:00 EST, Route to Pharmacy Electronically, [facility], Partial fill uponpatient request if the [...] 06/21/18 11:05:15 EDT, Route to Pharmacy Electronically, [id number], [facility] Start Date: 06/21/18 Status: [...] WITH PROLONGED DEPRESSIVE REACTION Confirmed 02/03/07 Active [facility] Team Senior Level Patient Confirmed Active ASTHMA [...] Team Personnel Name: Lola Belcher RN Position: [facility] RN Member Role: Primary Care Nurse Name: Jose Enrique Saul RN Position: [facility] RN Member Role: Primary Care Nurse Name: Symone Mckinnon RN Position: [facility] RN Member Role: Primary Care Nurse Name: Carolyn Pelaez RN Position: [facility] RN Member Role: Primary Care Nurse Name: Fanny Mixon RN Position: [facility] ED RN W/OE and Tasks Member Role: Primary Care Nurse Name: María Ashford RN Position: [facility] AMB Nurse Member Role: Primary Care Nurse Name: Chanelle Hernandez RN Position: [facility] AMB Nurse Member Role: Primary Care Nurse Name: Estelle García RN Position: [facility] RN Member Role: Primary Care Nurse Name: Deanne Rangel RN Position: [facility] RN Member Role: Primary Care Nurse Name: Carine Jimenez RN Position: [facility] SN RN Member Role: Primary Care Nurse Name: Jenelle Campo RN Position: [facility] RN Member Role: Primary Care Nurse Name: Keyla Godwin RN Position: [facility] RN Member Role: Primary Care Nurse Name: Yeimi Devine RN Position: [facility] RN Member Role: Primary Care Nurse Name: Mary Yan RN Position: [facility] RN Member Role: Primary Care Nurse Name: Iliana Pop RN Position: [facility] RN Member Role: Primary Care Nurse Name: Clovis Wang RN Position: [facility] RN Member Role: Primary Care Nurse Name: Alcides Dueñas RN Position: [facility] RN Member Role: Primary Care Nurse Name: Lisa Beatty Position: [facility] Outreach Member Role: Lifetime Consulting Physician Name: Armida Beatty RN Position: [facility] RN Member Role: Primary Care Nurse Name: Deonna Beatty RN Position: [facility] RN Member Role: Primary Care Nurse Name: Roque Villasenor MD Position: [facility] Renal MD Member Role: Lifetime Consulting Physician Address: Address: [address] [place] [address], [address] [facility] [place] [address]- [place] Name: Lashon Lovell RN Position: [facility] SN RN Member Role: Primary Care Nurse Name: Kristi Giraldo RN Position: [facility] RN Sara Member Role: Primary Care Nurse Name: Jerrod Casarez RN Position: [facility] RN Member Role: Primary Care Nurse Name: Shane Riley RN Position: [facility] RN Member Role: Primary Care Nurse Name: Isac Plascencia RN Position: [facility] RN Member Role: Primary Care Nurse Name: Rosalva Martin RN Position: [facility] RN Member Role: Primary Care Nurse Name: Sheela Matt RN Position: [facility] RN Member Role: Primary Care Nurse Name: Armida Ochoa RN Position: [facility] RN Member Role: Primary Care Nurse Name: Felipa Diehl RN Position: [facility] HBO Wound Member Role: Primary Care Nurse Name: Evelin Powell RN Position: [facility] AMB Nurse Member Role: Primary Care Nurse Name: Donald Murphy MD Position: [facility] Renal MD Member Role: Lifetime Consulting Physician Address: Address: [address] [place], [place] [address] [place] [address]- [place] Name: Pili Kaba RN Position: [facility] RN Member Role: Primary Care Nurse Name: Alejandro Yanes RN Position: [facility] RN Member Role: Primary Care Nurse Name: Stacey Díaz RN Position: [facility] SN RN Member Role: Primary Care Nurse Name: Jac Reese RN Position: [facility] RN Member Role: Primary Care Nurse Name: Erica Maya Position: [facility] TA Member Role: Lifetime Consulting Physician Name: Celestine Schwartz RN Position: [facility] RN Member Role: Primary Care Nurse Name: Neeta Carpenter RN Position: [facility] RN Member Role: Primary Care Nurse Name: Susie Estrada RN Position: [facility] RN Member Role: Primary Care Nurse Name: Inna Cantor RN Position: [facility] RN Member Role: Primary Care Nurse Name: Chaparrita Pizano DO Position: [facility] Physician (General Medicine) Member Role: PCP Address: Address: [address] [place] [address] [place] [address]- [place] Name: Ning Rolon RN Position: [facility] RN Member Role: Primary Care Nurse Name: Rubi Carrasco RN Position: [facility] SN RN Member Role: Primary Care Nurse Name: Lauryn Holden RN Position: [facility] RN Member Role: Primary Care Nurse Name: Jones Cervantes RN Position: [facility] RN Member Role: Primary Care Nurse Name: Olivia Caputo RN Position: [facility] RN Member Role: Primary Care Nurse Name: Brooklyn Jim RN Position: [facility] RN Member Role: Primary Care Nurse Name: Kimberly Santoro RN Position: [facility] RN Member Role: Primary Care Nurse Name: Haley Diamond RN Position: [facility] RN Member Role: Primary Care Nurse Name: Ashley Meléndez NP Position: [facility] PCO Associate Professional Member Role: Primary Care Nurse Address: Address: [address] [place] [address] [place] [address]- Name: Siomara Patricia RN Position: [facility] Nurse Member Role: Primary Care Nurse Name: Neeta Painter RN Position: [facility] RN Member Role: Primary Care Nurse Name: Bailey Espinal RN Position: [facility] Nurse Member Role: Primary Care Nurse Name: Brooklyn Ramsey RN Position: [facility] RN Member Role: Primary Care Nurse Name: Keyla Bright RN Position: [facility] RN Member Role: Primary Care Nurse Name: Lesli Corcoran RN Position: [facility] RN Member Role: Primary Care Nurse Name: Beverley Tatum RN Position: [facility] RN Member Role: Primary Care Nurse Name: Mainor Devries RN Position: [facility] RN Member Role: Primary Care Nurse Name: Yarely Richards RN Position: [facility] Sticker On Member Role: Primary Care Nurse Name: Oralia Massey RN Position: [facility] RN Member Role: Primary Care Nurse Name: Cassie Villanueva RN Position: [facility] RN Member Role: Primary Care Nurse Name: Taiwo Mcgregor RN Position: [facility] RN Member Role: Primary Care Nurse Name: Cally Funes RN Position: [facility] SN RN Member Role: Primary Care Nurse Name: Marina Willard Position: [facility] MA Member Role: Primary Care Nurse Name: Lisa Blanton RN Position: [facility] Sticker On Member Role: Primary Care Nurse Name: Joel Blanton RN Position: [facility] RN Member Role: Primary Care Nurse Name: Danica Stuart RN Position: [facility] AMB Nurse Member Role: Primary Care Nurse Name: Virginia Bacon RN Position: [facility] RN Member Role: Primary Care Nurse Name: Shruthi Ray RN Position: [facility] Onco RN Member Role: Primary Care Nurse Name: Abbe Choe RN Position: [facility] RN Supv Member Role: Primary Care Nurse Name: Farideh Cat LPN Position: [facility] RN Member Role: Primary Care Nurse Name: Janis Morris RN Position: [facility] Sticker On Member Role: Primary Care Nurse Name: Darrian Chang RN Position: [facility] Sticker On Member Role: Primary Care Nurse Name: Josef Woods RN Position: [facility] RN Member Role: Primary Care Nurse Name: Siomara Raphael RN Position: [facility] RN Member Role: Primary Care Nurse Name: Jerry Mcneill RN Position: [facility] RN Member Role: Primary Care Nurse Care Team Related Persons Name: IVAN VILLASENOR Address: [place] [address] Name: REYNALDO KAUR Address: [address] [place] [address] Name: EMMA SERRANO Address: home [address] [address] Name: PATRICK MATA Address: [address] [place] [address] Name: FARIDEH POPE Address: [place] [address]
--- OUTSIDE RECORDS SUMMARY | 2022-08-31 01:17 | XMS_ITS | Continuity of Care Document ---
Author Name Unknown Organization [facility] ter Address [address] [place] [id number]- Care Team Providers Care Insulation Foreman Name Role Phone Jerica Chaparrita DO Primary Care Physician Encounter [facility] Date(s): 06/07/22 - 06/09/[address] [address]- Encounter Diagnosis Nausea(Final) - 06/08/22 Abdominal discomfort(Final) - 06/08/22 Intractable nausea and vomiting(Final) - 06/08/22 Left lower quadrant pain(Final) - 06/08/22 Discharge Disposition: A-D/C Home Attending Physician: Gio SHERIFF, Byron Admitting Physician: Alberto Austin MD Referring Physician: [...] to receive vaccine 2Admin Note: manufactured by [employer] Medications albuterol CFC free 90 mcg/inh inhalation [...] 03/12/22 12:08:00 EST, Route to Pharmacy Electronically, [facility], Partial fill upon patient request if the prescr... Start Date: 03/12/22 Stop Date: 04/11/22 Status: Ordered Dilaudid Inj 1 mg, Injection, IV Push Slowly, Every 4 hours, PRN for Pain , Severe, Routine, 06/08/22 10:22:00 EDT Start Date: 06/08/22 Stop Date: 06/10/22 Status: Discontinued Ensure High Protein Ensure High [...] 03/09/23 23:00:00 EST, 03/12/22 12:10:00 EST, Patch, [facility], Partial fill upon patient request if... Start Date: 03/12/22 Stop Date: 03/09/23 Status: Ordered LORazepam 0.5 mg oral tablet 1 tablet = 0.5 mg, By Mouth, Daily at bedtime, 0 Refills, Maintenance, 08/29/21 2:21:00 EDT, Tablet, Partial fill upon patient request if the prescription is for a schedule II opioid drug. Start Date: 08/29/21 Status: Ordered magnesium sulfate 4 g/100 mL-NaCl [...] tablet, 0 Refills, Maintenance, 04/02/20 9:29:00 EST, [facility], Partial fill upon patient request if the prescription is for a schedule II opioid drug., 154.94, cm, 04/02/20 8... Start Date: 04/02/20 Status: Ordered Pantoprazole Inj = 40 mg, [...] 03/12/22 12:06:00 EST, Route to Pharmacy Electronically, [facility], Partial fill uponpatient request [...] 06/21/18 11:05:15 EDT, Route to Pharmacy Electronically, [id number], [facility] Start Date: [...] WITH PROLONGED DEPRESSIVE REACTION Confirmed 02/03/07 Active [facility] Switzer Team Senior Level Patient Confirmed Active ASTHMA [...] for Microbiology Reports Name Date Blood Culture 06/07/22 Blood Culture #2 06/07/22 Microbiology Reports TEST:Blood Culture, Second Order STATUS:Unauthenticated BODY SITE: SOURCE:Blood COLLECTED DATE/TIME:06/07/22 5:15 PM Blood Culture, Second Order SPECIMEN DESCRIPTION : BLOOD NONE SPECIAL REQUESTS : NONE CULTURE : NO GROWTH AFTER 48 HOURS REPORT STATUS : PRELIMINARY REPORT TEST:Blood Culture STATUS:Unauthenticated BODY SITE: SOURCE:Blood COLLECTED DATE/TIME:06/07/22 3:35 PM Blood Culture SPECIMEN DESCRIPTION : BLOOD LAC SPECIAL REQUESTS : NONE CULTURE : NO GROWTH AFTER 48 HOURS REPORT STATUS : PRELIMINARY REPORT Radiology Reports * Exam Date Time Procedure Performing Provider Status 06/07/22 5:[address] Abd/Pelvis W/ IV Contrast Only Rula Pina; Auth (Verified) Notes: (CT Abd/Pelvis W/ IV Contrast Only) Reason For Exam: LLQ abdominal pain;Other: RESULT: CT Abd/Pelvis W/ IV Contrast Only CT Abd/Pelvis W/ IV Contrast Only Hx of Present Illness: States two episodes of sepsis this year. had infected port then had staff infection bacteremia?. States increasing fevers, chills, left sided abdominal pain radiating to her flank. Increasing nausea . denies dysuria; Reason: Other:; LLQ abdominal pain; Clinical Question(s):Obstruction; Order Comment: TECHNIQUE: Spiral CT through the abdomen and pelvis with IV contrast formatted in 3 planes. 100 cc of Omnipaque 300 was administered intravenously. This study was performed without oral contrast. Weight-based protocol using automatic tube modulation was used to optimize exposure parameters. CTDIvol Body: 22.17 mGy, DLP Body: 1179 mGy*cm. COMPARISON: 12/05/2021. FINDINGS: Loan Analyst View Findings, Lines and Tubes: None. Visualized Chest: Mild interlobular septal thickening in the visualized lung bases. There is a small focus of subsegmental atelectasis in the right lower lobe. No pleural effusion. The heart is normal in size. No pericardial effusion. Diaphragm: Normal. Liver: Normal. Gallbladder: Absent consistent with prior cholecystectomy. Bile ducts: No biliary ductal dilation. Spleen: Normal. Pancreas: Normal. Adrenal glands: Normal. Kidneys and ureters: No hydronephrosis, stones, or suspicious masses. There are prominent columns of Segundo bilaterally. Bladder: Under distended but appears normal. Reproductive organs: Status post hysterectomy. No adnexal mass is seen. Stomach, small bowel, and large bowel: Normal. Appendix: Normal. Peritoneum and retroperitoneum: No ascites or pneumoperitoneum. No omental or mesenteric lesions. Lymph nodes: No enlarged lymph nodes. Blood vessels: Mild vascular calcifications but no aneurysm. No evidence of venous thrombosis. Abdominal and pelvic wall: Prior ventral hernia repair with mesh anchors in place. Right rectus abdominis muscle is atrophied inferiorly. Bones: No acute abnormality. Mild to moderate multilevel degenerative disc disease throughout the spine. IMPRESSION: 1. No acute abnormality in the abdomen or pelvis. 2. Findings suggesting mild pulmonary edema. WSN: [id number] Ordering Physician: Naye Iyer Dictated By: Olga Mckeon MD Dictated Date/Time: 06/07/22 6:45 pm Reviewed By: Olga Mckeon MD Signed By: Olga Mckeon MD Signed Date/Time: 06/07/22 6:45 pm Transcribed By: DEIDRE Transcribed Date/Time: 06/07/22 6:38 pm * Exam Date Time Procedure Performing Provider Status 06/07/22 4:55 PM Chest 2 Views Frontal and Lat Philomena Magaña; Auth (Verified) Notes: (Chest 2 Views Frontal and Lat) Reason For Exam: Line Placement RESULT: Chest 2 Views Frontal and Lat Chest 2 Views Frontal and Lat INDICATION/CLINICAL QUESTION: Central line tip superior vena cava. TECHNIQUE: Frontal and lateral views of the chest. COMPARISON: 05/08/2022. FINDINGS: LINES AND TUBES: None. LUNGS AND PLEURA: RIGHT CHEST: The right lung is clear and there is no right effusion. LEFT CHEST: The left lung is clear and there is no left effusion. HEART, MEDIASTINUM AND JAROCHO: The heart is of normal size. The mediastinum and jarocho are normal. BONES AND SOFT TISSUES: No acute bony abnormality. IMPRESSION: 1. No active disease in chest. WSN: [id number] Ordering Physician: Naye Iyer Dictated By: Daryl Morrison MD Dictated Date/Time: 06/07/22 4:57 pm Reviewed By: Daryl Morrison MD Signed By: Daryl Morrison MD Signed Date/Time: 06/07/22 4:57 pm Transcribed By: DEIDRE Transcribed Date/Time: 06/07/22 4:56 pm Vital Signs Most recent to oldest [Reference Range]: 1 2 3 Oxygen Saturation [94-100 %] 99 % (06/09/22 11:47 AM) 99 % (06/09/22 8:24 AM) 99 % (06/09/22 4:40 AM) Pulse Rate [55-90 bpm] 76 bpm (06/09/22 11:47 AM) 73 bpm (06/09/22 8:24 AM) 72 bpm (06/09/22 4:40 AM) Blood Pressure [90-138/55-84 mm Hg] 117/66mm Hg (06/09/22 11:47 AM) 128/71mm Hg (06/09/22 8:24 AM) 134/74mm Hg (06/09/22 4:40 AM) Respiratory Rate [16-30 br/min] 18 br/min (06/09/22 1:27 PM) 20 br/min (06/09/22 11:47 AM) 18 br/min (06/09/22 8:57 AM) Temperature [96.8-100.4 DegF] 97.4 DegF (06/09/22 11:47 AM) 97.8 DegF (06/09/22 8:24 AM) 97.9 DegF (06/09/22 4:40 AM) Mode of Delivery (Oxygen) Room air (06/09/22 11:47 AM) Room air (06/09/22 8:24 AM) Room air (06/09/22 4:40 AM) Blood pressure sites Arm, left (06/09/22 11:47 AM) Arm, left (06/09/22 8:24 AM) Arm, right (06/09/22 4:40 AM) Temperature Route Oral (06/09/22 11:47 AM) Oral (06/09/22 8:24 AM) Oral (06/09/22 4:40 AM) Dry Weight 128.3 kg (06/08/22 3:17 PM) Dry Weight Obtained Via Bed scale (06/08/22 3:17 PM) Social History Social History Type Response Smoking Status Former smoker; Other : quit 04/2015; entered on: 01/30/16 Sex Admission evaluation note * Tahmina SHERIFF, Rob Ramos: MODIFY, MODIFY, MODIFY, PERFORM, MODIFY Event Display: Admission Note Authored Date: [id number] Patient: ??LOVING, VILMA ? Age:??46 Years?Sex:??Female?:??1975?? Chief Complaint/Reason for Consultation 46-year-old??female with past medical history of History of Present Illness 46-year-old??female with past medical history of chronic abdominal pain, constipation, bipolar disorder, type 2 diabetes mellitus, hypertension, fibromyalgia, hyper lipedema, low back pain, migraine,morbid obesity, neurogenic bladder, AURELIO, partial small bowel obstruction secondary to adhesions, peripheral neuropathy, spinal stenosis, who presented to the ED on 06/07 overnight with abdominal pain,nausea?? and constipation. Patient reports that she had??severe worsening pain overnight,??reports that this is similar to her??previous episodes.?? She has chronic constant pain of the level 05/24 with intermittent??cramping abdominal pain??of 09/23. ??On my evaluation she reports left lower quadrant pain, cramping in nature. She takes??liquid Dilaudid at home but has not been able to take it due to??nausea??and therefore presented to the ED.?? She also takes??IV Zofran at home and Benadryl??with Zofran since??she had a allergic reaction to Zofran. ?? She was recently discharged on 05/15/2022 with Staphylococcus epidermidis bacteremia with IV antibiotics which ended on 05/26, After presentation to the ED on 06/07, she has been afebrile, has had tachycardia.?? Initially hypertensive 143/104, 118/78 this morning, saturating well on room air. No leukocytosis, chronic microcytic anemia, lactate 1.3, Blood cultures drawn on 06/07,. In the ED patient received diphenhydramine, Dilaudid IV 1 mg x 2 for pain, magnesium 2 g, Zofran, 1L bolus. ?? (06/07/2022 17:[address] Abd/Pelvis W/ IV Contrast Only) ?? IMPRESSION:? 1. ??No acute abnormality in the abdomen or pelvis. 2. ??Findings suggesting mild pulmonary edema. ?? [1] ? Large stool burden seen on CT ?? Patient reports she has history of??chronic interstitial cystitis??and has??bladder spasms afterurination,??UA??in the ED with no infection noted. She has a chronic Polanco??for??her IV medications She has??TPN 5 days/week??with 12 hours for the infusion??Tuesday and Tuesday she does not use TPN, she is a 6 units of Humulin in her TPN. She also receives IV magnesium??at home. Review of Systems Constitutional,??eyes, skin, head/neck,??ENMT, respiratory, cardiac, gastrointestinal, genitourinary, endocrine, musculoskeletal,??neurologic, psychiatric, immunologic??systems reviewed and negative??except as described above. Objective Vital Signs?? Temperature: 98.1 DegF (06/08/22 01:16:00) Temperature Route: Oral (06/08/22 01:16:00) Pulse Rate:??98 bpm??High (06/08/22 06:53:00) Respiratory Rate: 16 br/min (06/08/22 06:54:00) Vented: No (06/08/22 06:53:00) Systolic Blood Pressure: 118 mm Hg (06/08/22 06:53:00) Diastolic Blood Pressure: 78 mm Hg (06/08/22 06:53:00) Blood pressure sites: Arm, right (06/08/22 06:53:00) Mean Arterial Pressure: 124 mm Hg (06/07/22 22:34:00) Pulse Pressure: 40 mm Hg (06/08/22 06:53:00) Oxygen Saturation: 97 % (06/08/22 06:53:00) Mode of Delivery (Oxygen): Room air (06/08/22 06:53:00) Early Warning Score: 1 (06/08/22 06:54:22) ? Intake/Output? 06/07 12:23 06/08 07:00 06/07 07:00 06/06 07:00 06/05 07:00 ?? 06/08 09:13 06/08 09:13 06/08 06:59 06/07 06:59 06/06 06:59 Intake ? 50 ?0 ? 50 ?0 ?0 Output ?0 ?0 ?0 ?0 ?0 Net Total ? 50 ?0 ? 50 ?0 ?0 ? Physical Exam General:??A & O X 3, not in acute distress.?? Eye:??no redness or discharge Head and neck:??Normocephalic, atraumatic, moist mucous membranes Cardiac:??S1, S2, no murmur or gallop. Respiratory: Clear bilateral breath sounds, no wheeze, crackles or rhonchi Abdomen: Soft, non tender, non distended, normoactive bowel sounds Neurology:??A & Ox3, cranial nerves grossly intact, moving all extremities spontaneously?? Psychiatric:??Cooperative, appropriate mood and affect.?? Skin:??No rash. Warm to touch Extremities:??no pedal edema, no gross deformities ?? Assessment/Plan 46-year-old female with past medical history of chronic abdominal pain, constipation, bipolar disorder, asthma, type 2 diabetes, hypertension,??fibromyalgia, hyperlipidemia,??chronic low back pain, migraine, obesity,??neurogenic bladder, AURELIO on BiPAP at home,??history of partial small bowel obstruction secondary to adhesions, peripheral neuropathy, spinal stenosis,??presented to the ED??with acute on chronic??cramping left lower quadrant pain??associated with worsening nausea,??CT abdomen and pelvis without any acute obstruction but found to have large stool burden. ?? Acute on chronic??abdominal pain Left lower quadrant pain History of small bowel obstruction secondary to adhesions Chronic constipation Patient came in with acute on chronic??abdominal pain left lower quadrant, CT ruled out??recurrenceof her obstruction. Patient is on liquid Dilaudid at home 4 mg, large stool burden noted She was recently discharged on 05/15/2022 with Staphylococcus epidermidis bacteremia with IV antibiotics which ended on 05/26, After presentation to the ED on 06/07, she has been afebrile, has had tachycardia.?? Initially hypertensive 143/104, 118/78 this morning, saturating well on room air. No leukocytosis, chronic microcytic anemia, lactate 1.3, Blood cultures drawn on 06/07,. In the ED patient received diphenhydramine, Dilaudid IV 1 mg x 2 for pain, magnesium 2 g, Zofran, 1L bolus. ?? Plan IV Dilaudid 1 mg??to help with??chronic pain,??patient has significant allergy to all other medications,??discussed with her that IV Dilaudid will worsen her constipation, but she reports that she does take 4 mg p.o. liquid Dilaudid at home and??no other pain medication works for her??and she has other chronic pain management requirements Fleet enema, discussed with patient Lactulose as needed??which is also her home medication Docusate senna Zofran for nausea, patient takes Zofran with Benadryl at home due to allergic reactions ?? Obstructive sleep apnea on BiPAP at home Asthma not on inhalers Patient has PFTs??about a few years ago with asthma with significant bronchodilator response??currently not taking any inhalers Patient does not know her BiPAP settings Plan Order BiPAP As needed albuterol for wheezing ?? Insulin-dependent diabetes mellitus Patient is on 35 units of Lantus twice daily at home, and sliding scale insulin, and 60 units of Humulin??along with her TPN Plan Sliding??scale insulin every 6 hours until patient able to take p.o. 15 units twice daily of Lantus until patient resumes p.o. intake Ucyaw-fd-ozuy glucose??every 6 hours ?? Hypomagnesemia Hypokalemia TPN dependence GERD Patient takes TPN at home, order for nutrition consult placed,??patient also??gets IV magnesium at home??4 g??on Tuesday and Tuesday and 8??g on Tuesday. Plan Nutrition consult Patient uses IV pantoprazole at home ?? Chronic home medications???propranolol??unclear why patient is on propranolol???continue ?? Quality measures Diet:??Clear liquid diet for now, currently still nauseous and does not want to take p.o. DVT prophylaxis:heparin asked RN to get updated weight, 276 kg does not appear to be correct, then can switch to weight based lovenox CODE STATUS:??Full code ? This note has been??written with the help of dictation software,??please excuse any errors. Patient case and plan discussed with Dr. Rach Martel MD, PGY3 Internal medicine Pager: [phone] ? Histories Allergies Allergies ?(Active and Proposed [...] no longer needed Trigger point of abdomen [facility] Switzer Team Senior Level Patient ? Past Surgical [...] Social History Alcohol Details:??Use: Past. 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 Exercise Details:??Self assessment: Poor [...] (LORazepam 0.5 mg oral tablet)?1?tab(s)?0.5?Milligram?By Mouth?Daily atbedtime Magnesium Sulfate (magnesium sulfate 4 g/100 mL-NaCl 0.9% intravenous solution)?See Instructions?patient reports taking 4 g mag Tuesday and Tue IV. 8g of IV Mg on Tue Miscellaneous Rx (ENSURE CLEAR LIQD)?1 bottle?3 times a day with meals Miscellaneous Rx (Misc Rx)?See Instructions?Pateint reports taking TPN, 5 days a week, with 60 units of Humulin, No TPN on Tue and Tue Ondansetron (ondansetron 4 mg oral tablet, disintegrating)?4?Milligram?IV [...] a day before meals and bedtime?for 30?Days Sucralfate (sucralfate 1 gm oral tablet)?TAKE 1 TABLET BY MOUTH THREE TIMES A DAY BEFORE MEALS AND AT BEDTIME Sumatriptan (SUMAtriptan 50 mg oral tablet)?1?tab(s)?50?Milligram?By Mouth?Daily?as needed?for migraine headache?may repeat dose after 2 hours up to a maximum of 2 ? Inpatient Medications Medications (17) Active SCHEDULED: (9) Bisacodyl 5 mg EC Tablet (Bisacodyl Supp) ??5 mg, By Mouth, Daily Enema Saline Laxative Adult 7 g-19 g (Fleet Enema) ??1 each, Rectally, Once Insulin Glargine 100 units/mL Inj (Lantus Inj) ??15 units 0.15 mL, Subcutaneous Injection, 2 times a day Insulin Lispro 100 units/mL Inj (3mL) (Insulin LISPRO Sliding Scale) ??2-10 units, Subcutaneous Injection, 3 times a day before meals Magnesium Sulfate 2 Gm /50 mL (Magnesium Sulfate IVPB) ??2 Gm 50 mL, IVPB, Once NaCl 0.9% Flush 3ml (NaCL 0.9% Flush) ??3 mL, IV Push, Every 8 hours Pantoprazole (Pantoprazole Inj) ??40 mg, IV Infusion, Daily Propranolol 60 mg CR Capsule (propranolol 60 mg oral capsule, extended release) ??120 mg, By Mouth,Daily at bedtime Vitamin D 1000 IU Tablet (cholecalciferol 1000 intl units oral tablet) ??2,000 units, By Mouth, 2 times a day CONTINUOUS: (0) PRN: (8) Albuterol 90mcg/Inhalation Inhaler HFA (albuterol CFC free 90 mcg/inh inhalation aerosol) ??180 mcg2 puffs, Inhalation, Every 4 hours Calcium Carbonate 500 mg (Calcium 200 mg) Chewable Tablet (Tums 500 mg oral tablet, chewable) ??500mg 1 tablet, Chew, Every 4 hours diphenhydrAMINE 50 mg/mL Inj (Benadryl Inj) ??50 mg 1 mL, IV Push, Every 6 hours HYDROmorphone 1 mg/mL Inj Syringe (Dilaudid Inj) ??1 mg 1 mL, IV Push Slowly, Every 4 hours Lactulose 20 Gm/30mL Syrup (lactulose 10 gm/15 ml oral syrup) ??10 Gm 15 mL, By Mouth, Daily Lorazepam 0.5 mg Tablet (LORazepam 0.5 mg oral tablet) ??0.5 mg, By Mouth, Daily at bedtime NaCl 0.9% Flush 3ml (NaCL 0.9% Flush) ??3 mL, IV Push, Every 8 hours Ondansetron 2mg/mL Inj (2mL Vial) (Ondansetron Inj) ??4 mg, IV Push Slowly, Every 30 minutes ? Results Recent Labs BLOOD COUNT & DIFF WBC 5.2 k/mm3 ()?? 06/07/2022 15:35 RBC 4.51 m/mm3 ()?? 06/07/2022 15:35 Hgb 11.4 Gm/dL (Low)?? 06/07/2022 15:35 Hct 35.9 % ()?? 06/07/2022 15:35 MCV 79.6 femtoliters (Low)?? 06/07/2022 15:35 MCH 25.3 pg (Low)?? 06/07/2022 15:35 MCHC 31.8 g/dL (Low)?? 06/07/2022 15:35 Platelet Count 334 k/mm3 ()?? 06/07/2022 15:35 RDW-SD 37.1 femtoliters ()?? 06/07/2022 15:35 MPV 9.1 femtoliters (Low)?? 06/07/2022 15:35 Nucleated RBC (Automated) 0.0 #/100 WBC'S ()?? 06/07/2022 15:35 Abs. NRBC 0.0 k/mm3 ()?? 06/07/2022 15:35 Abs. Neut 2.7 k/mm3 ()?? 06/07/2022 15:35 Abs. Lymph 1.8 k/mm3 ()?? 06/07/2022 15:35 Abs. [place] 0.3 k/mm3 (Low)?? 06/07/2022 15:35 Abs. Eo 0.3 k/mm3 ()?? 06/07/2022 15:35 Abs. Baso 0.0 k/mm3 ()?? 06/07/2022 15:35 Neut % 52.7 % ()?? 06/07/2022 15:35 Lymph % 35.5 % ()?? 06/07/2022 15:35 [place] % 6.0 % ()?? 06/07/2022 15:35 Eos % 5.0 % ()?? 06/07/2022 15:35 Baso % 0.6 % ()?? 06/07/2022 15:35 Imm Gran 0.2 % ()?? 06/07/2022 15:35 Abs. Imm Gran 0.0 k/mm3 ()?? 06/07/2022 15:35 ?? CHEM GENERAL Sodium 135 mmol/L ()?? 06/07/2022 15:35 Potassium 4.2 mmol/L ()?? 06/07/2022 15:35 Chloride 97 mmol/L (Low)?? 06/07/2022 15:35 Bicarbonate Level 28 mmol/L ()?? 06/07/2022 15:35 Anion Gap 10 ()?? 06/07/2022 15:35 Glucose Level 204 mg/dL (High)?? 06/07/2022 15:35 BUN 14 mg/dL ()?? 06/07/2022 15:35 Creatinine-Blood 0.6 mg/dL ()?? 06/07/2022 15:35 Estimated GFR Creatinine 111 ML/MIN/1.73 M2 ()?? 06/07/2022 15:35 Calcium 9.7 mg/dL ()?? 06/07/2022 15:35 Magnesium 1.7 mg/dL ()?? 06/07/2022 15:35 Protein, Total 7.3 Gm/dL ()?? 06/07/2022 15:35 Albumin 4.2 Gm/dL ()?? 06/07/2022 15:35 AG Ratio 1.4 ()?? 06/07/2022 15:35 Alkaline Phosphatase 120 units/L (High)?? 06/07/2022 15:35 Lipase 21 units/L ()?? 06/07/2022 15:35 AST (SGOT) 14 units/L ()?? 06/07/2022 15:35 ALT (SGPT) 14 units/L ()?? 06/07/2022 15:35 Bilirubin, Total 0.4 mg/dL ()?? 06/07/2022 15:35 Lactate 1.3 mmol/L ()?? 06/07/2022 15:35 ?? ENDOCRINE/TUMOR MARKER Blood 2 mIU/mL ()?? 06/07/2022 15:35 Serum Qual NEGATIVE mIU/mL ()?? 06/07/2022 15:35 ?? HEME OTHER Hold Blue Top SPECIMEN DISCARDED AFTER 4 HOURS. ()?? 06/07/2022 15:35 ?? UA/URINALYSIS Appear/Color, Urine LIGHT YELLOW ()?? 06/07/2022 17:28 Specific Villalba, Urine 1.025 ()?? 06/07/2022 17:28 pH, Urine 5.0 ()?? 06/07/2022 17:28 Albumin, Urine NEGATIVE ()?? 06/07/2022 17:28 Glucose, Urine 3+ (Abnormal)?? 06/07/2022 17:28 Ketones, Urine NEGATIVE ()?? 06/07/2022 17:28 Bilirubin, Urine NEGATIVE ()?? 06/07/2022 17:28 Hemoglobin, Urine NEGATIVE ()?? 06/07/2022 17:28 Nitrite, Urine NEGATIVE ()?? 06/07/2022 17:28 Leukocyte, Urine NEGATIVE ()?? 06/07/2022 17:28 Urobilinogen NORMAL mg/dL ()?? 06/07/2022 17:28 WBC's, Urine 2 /HPF ()?? 06/07/2022 17:28 RBC's, Urine 2 /HPF ()?? 06/07/2022 17:28 Squamous Epith 1 /HPF ()?? 06/07/2022 17:28 Mucus SLIGHT /LPF ()?? 06/07/2022 17:28 Hold Urine Culture Testing available 48 hours from time of collection. ()?? 06/07/2022 17:28 ?? VIROLOGY COVID-19 POC Result NEGATIVE ()?? 06/07/2022 12:40 ? Abnormal Labs ?? BLOOD COUNT & DIFF ??Abs. Imm Gran ??0.0 k/mm3 () ??06/07/2022 15:35 ??Abs. [place] ??0.3 k/mm3 (Low) ??06/07/2022 15:35 ??Abs. NRBC ??0.0 k/mm3 () ??06/07/2022 15:35 ??Hgb ??11.4 Gm/dL (Low) ??06/07/2022 15:35 ??Imm Gran ??0.2 % () ??06/07/2022 15:35 ??MCH ??25.3 pg (Low) ??06/07/2022 15:35 ??MCHC ??31.8 g/dL (Low) ??06/07/2022 15:35 ??MCV ??79.6 femtoliters (Low) ??06/07/2022 15:35 ??MPV ??9.1 femtoliters (Low) ??06/07/2022 15:35 ??Nucleated RBC (Automated) ??0.0 #/100 WBC'S () ??06/07/2022 15:35 ??RDW-SD ??37.1 femtoliters () ??06/07/2022 15:35 ? CHEM GENERAL ??AG Ratio ??1.4 () ??06/07/2022 15:35 ??Alkaline Phosphatase ??120 units/L (High) ??06/07/2022 15:35 ??Chloride ??97 mmol/L (Low) ??06/07/2022 15:35 ??Estimated GFR Creatinine ??111 ML/MIN/1.73 M2 () ??06/07/2022 15:35 ??Glucose Level ??204 mg/dL (High) ??06/07/2022 15:35 ? ENDOCRINE/TUMOR MARKER ??Blood ??2 mIU/mL () ??06/07/2022 15:35 ?? Serum Qual ??NEGATIVE mIU/mL () ??06/07/2022 15:35 ? HEME OTHER ??Hold Blue Top ??SPECIMEN DISCARDED AFTER 4 HOURS. () ??06/07/2022 15:35 ? UA/URINALYSIS ??Albumin, Urine ??NEGATIVE () ??06/07/2022 17:28 ??Appear/Color, Urine ??LIGHT YELLOW () ??06/07/2022 17:28 ??Bilirubin, Urine ??NEGATIVE () ??06/07/2022 17:28 ??Glucose, Urine ??3+ (Abnormal) ??06/07/2022 17:28 ??Hemoglobin, Urine ??NEGATIVE () ??06/07/2022 17:28 ??Hold Urine Culture ??Testing available 48 hours from time of collection. () ??06/07/2022 17:28 ??Ketones, Urine ??NEGATIVE () ??06/07/2022 17:28 ??Leukocyte, Urine ??NEGATIVE () ??06/07/2022 17:28 ??Mucus ??SLIGHT /LPF () ??06/07/2022 17:28 ??Nitrite, Urine ??NEGATIVE () ??06/07/2022 17:28 ??Urobilinogen ??NORMAL mg/dL () ??06/07/2022 17:28 ? VIROLOGY ??COVID-19 POC Result ??NEGATIVE () ??06/07/2022 12:40 ? Note: Critical results are displayed in red. ? [1]??CT Abd/Pelvis W/ IV Contrast Only; Olga Mckeon MD 06/07/2022 17:59 EDT EKG study * Event Display: ECG 12-Lead Authored Date: Please click on pdf link to open report * Event Display: ECG 12-Lead Authored Date: Ventricular Rate: 86 BPM Atrial Rate: 86 BPM P-R Interval: 124 ms QRS Duration: 88 ms Q-T Interval: 360 ms QTC Calculation(Bazett): 430 ms P [place]: 5 degrees R [place]: -10 degrees T [place]: -4 degrees Normal sinus rhythm Minimal voltage criteria for LVH, may be normal variant ( R in aVL ) Borderline ECG When compared with ECG of 14-MAY-2022 06:09, No significant change was found Confirmed by YANNI LEDBETTER ([id number]) on 06/08/2022 8:21:48 AM [place]: YANNI LEDBETTER Hospital Progress note * Billie Rodriguez RN: PERFORM, SIGN, VERIFY Event Display: Progress Note Hospital Authored Date: [id number] Patient: VILMA SERRANO Age: 46 years Sex: Female : 1975 Associated Diagnoses: None Author: Billie Rodriguez RN Findings Narrative/Incidental No acute events over night. Pt A+Ox4. VSS. C/o abd pain in left mid area and intermittent nausea and nausea with certain meds. Denies vomiting. Has +BS x 4 quads. Denies dizziness or lightheadedness,weakness, headache, SOB or cough. Telemetry: NSR. Pt c/o soreness around her Polanco line. Her Polanco line had no blood return yesterday. Alteplase administreded per MD orders. Polanco line is patent with good blood return, dressing changed last night. Pt c/o vaginal itching yeast like symptom. MDcover paged. Diflucan 150 mg PO ordered and given early am.. Discharge Information Case Management Discharge Plan : Case Management Discharge Plan Data 06/08/2022 15:02 EDT Discharge Level of Care at Discharge Homehealth/VNA Discharge Medical Equipment [employer] [facility] Name of Agency #1 [facility] Service Categories #1 Other: TPN/IV Pulmonary Rehab Discharge : Pulmonary Rehab Discharge Status 06/08/2022 23:08 EDT CPAP/BiPAP Mask Type Pillows CPAP/BiPAP Mask Size Small Deprecated Cardiac rehabilitation treatment plan Progress note and attainment of goals (narrative) * Heena Rasmussen RN: PERFORM, SIGN, VERIFY Event Display: Cardiac Rehab Note Authored Date: [id number] Patient: VILMA SERRANO Age: 46 years Sex: Female : 1975 Associated Diagnoses: None Author: Heena Rasmussen RN Discharge Plan Case Management Discharge Plan : Case Management Discharge Plan Data 06/08/2022 15:02 EDT Discharge Level of Care at Discharge Homehealth/VNA Discharge Medical Equipment Companies [facility] Name of Agency #1 [facility] Service Categories #1 Other: TPN/IV Note * Carleen Abdalla RN: PERFORM Event Display: Discharge/Transfer Note Hospital Authored Date: [id number] Nursing Discharge Note Entered On: 06/09/2022 16:32 EDT Performed On: 06/09/2022 16:31 EDT by Carleen Abdalla RN Nursing Discharge Note 2 Discharge Time : 06/09/2022 16:15 EDT Discharge Level of Care at Discharge : Homehealth/VNA Discharge Medical Equip Companies([email or web address]) : [facility] Patient Left Unit Via : Wheelchair Patient Accompanied Off Unit with : Responsible adult DC Instructions Provided & Signed by Pt : Yes Patient Understands D/C Instructions : Yes Patient Instructions Discharge Signed : Yes Did Pt have Specialty Bed or Wound Vac : No Carleen Abdalla RN - 06/09/2022 16:31 EDT * Gio SHERIFF, Byron: PERFORM Event Display: Discharge/Transfer Note Hospital Authored Date: [id number] Patient: ??LOVING, VILMA ? Age:??46 Years?Sex:??Female?:??1975?? Patient Information Discharge Location: [facility] Primary Care Physician: Chaparrita Pizano DO Admit Date/Time: 06/07/22 12:23 Discharge Date:??06/09/2022 13:20 Discharge Disposition Discharge Disposition: Home with Home Health Discharge Diagnosis Abdominal discomfort (R10.9) Intractable nausea and vomiting (R11.2) Left lower quadrant pain (R10.32) Nausea (R11.0) ASTHMA Abdominal pain Bipolar disorder COPD (chronic [...] (LORazepam 0.5 mg oral tablet)?1?tab(s)?0.5?Milligram?By Mouth?Daily atbedtime Magnesium Sulfate (magnesium sulfate 4 g/100 mL-NaCl [...] a maximum of 2 ? Medications Started None Medications Discontinued None Doses Changed None Allergies Allergies ?(Active and Proposed Allergies Only) [...] Onset: Unknown) ?Reactions: vomiting ? Future Appointments Tuesday. 2022 4:00 PM EDT ?? With: Lorie SHERIFF, Antwan Hi Where: [facility] Infectious Disease [address] [place] [address]- Hospital Course ??46-year-old??female with past medical history of chronic abdominal pain, constipation, bipolar disorder, type 2 diabetes mellitus, hypertension, fibromyalgia, hyper lipedema, low back pain, migraine, morbid obesity, neurogenic bladder, AURELIO, partial small bowel obstruction secondary to adhesions, peripheral neuropathy, spinal stenosis, who presented to the ED on 06/07 overnight with abdominal pain, nausea?? and constipation now??presented with??severe worsening abdominal??pain overnight,??reports that this is similar to her??previous episodes.?? She has chronic constant pain of the level 05/24with intermittent??cramping abdominal pain??of 8/10.?She takes??liquid Dilaudid at home but has not been able to take it due to??nausea??and therefore presented to the ED.?? She also takes??IV Zofran at home and Benadryl??with Zofran since??she had a allergic reaction to Zofran. She was recentlydischarged on 05/15/2022 with Staphylococcus epidermidis bacteremia with IV antibiotics which ended on 05/26, ?? After presentation to the ED on 06/07, she has been afebrile, has had tachycardia.?? Initially hypertensive 143/104, 118/78 this morning, saturating well on room air. No leukocytosis, chronic microcytic anemia, lactate 1.3. Blood cultures drawn on 06/07. In the ED patient received diphenhydramine, Dilaudid IV 1 mg x 2 for pain, magnesium 2 g, Zofran, 1 L bolus and admitted to observation unit for further management ?? Acute on chronic??abdominal pain Left lower quadrant pain History of small bowel obstruction secondary to adhesions Chronic constipation Patient came in with acute on chronic??abdominal pain left lower quadrant. Patient had a CT scan of the abdomen pelvis done in the emergency room on 06/07 which did not show any acute intra-abdominal pathology Patient is on liquid Dilaudid at home 4 mg, large stool burden noted She was recently discharged on 05/15/2022 with Staphylococcus epidermidis bacteremia with IV antibiotics which ended on 05/26, Patient treated symptomatically with IV Dilaudid??1 mg every 4 hours for pain??as well as IV fluidsand IV Zofran for nausea. She was also??given??lactulose to help with constipation. Pain improved with supportive care and she felt??back to her usual self today. ?? Obstructive sleep apnea on BiPAP at home Asthma not on inhalers Patient has PFTs??about a few years ago with asthma with significant bronchodilator response??currently not taking any inhalers Patient does not know her BiPAP settings She will resume her home BiPAP??at discharge. ?? Insulin-dependent diabetes mellitus Patient is on 35 units of Lantus twice daily at home, and sliding scale insulin, and 60 units of Humulin??along with her TPN Patient will continue the same regimen??at home. ?? Hypomagnesemia Hypokalemia TPN dependence GERD Patient takes TPN at home, order for nutrition consult placed,??patient also??gets IV magnesium at home??4 g??on Tuesday and Tuesday and 8??g on Tuesday. Nutrition consult Acute on??patient to resume her usual home TPN at discharge today. ?? Chronic home medications???propranolol??unclear why patient is on propranolol???continue ?? Patient's abdominal pain now improved??at her baseline level of 4 out of 10 and so discharge plans made Objective Assessment and Plan Discharge Planning:? Vital Signs?? Temperature: 97.4 DegF (06/09/22 11:47:00) Temperature Route: Oral (06/09/22 11:47:00) Pulse Rate: 76 bpm (06/09/22 11:47:00) Respiratory Rate: 20 br/min (06/09/22 11:47:00) Systolic Blood Pressure: 117 mm Hg (06/09/22 11:47:00) Diastolic Blood Pressure: 66 mm Hg (06/09/22 11:47:00) Blood pressure sites: Arm, left (06/09/22 11:47:00) Mean Arterial Pressure: 83 mm Hg (06/09/22 11:47:00) Pulse Pressure: 51 mm Hg (06/09/22 11:47:00) Oxygen Saturation: 99 % (06/09/22 11:47:00) Mode of Delivery (Oxygen): Room air (06/09/22 11:47:00) FiO2: 21 % (06/08/22 23:08:00) Early Warning Score: 3 (06/09/22 11:47:45) ? . Physical Exam Constitutional: Alert, in no distress. Mental Status: Oriented to person, place and time. Head: Normocephalic. Eyes: Pupils are equal, round and reactive to light. Ear, Nose and Throat: Oropharynx clear, mucous membranes moist. Neck: Supple, Full range of motion. Respiratory: Clear to auscultation. No wheezing, rales or rhonchi. Cardiovascular: S1 S2 regular. No murmurs, rubs or gallops. Gastrointestinal: Abdomen soft, minimal tenderness in the lower quadrants. Neurologic: Cranial nerves II-XII grossly intact. No focal neurological deficits. Musculoskeletal: No cyanosis or clubbing. No gross deformities. Normal range of motion. Psychiatric: Normal mood and affect Pending Results Add On Lab Order ordered on 06/07/2022 Blood Culture ordered on 06/07/2022 Blood Culture #2 ordered on 06/07/2022 Lactic Acid Level ordered on 06/07/2022 Follow-Up Appointments Added Follow Up ?Time Frame ?Comments Chaparrita Pizano?1 week: call to discuss follow up visit Home Health Face to Face ^HomeHealthFTF Results Discharge Labs BLOOD COUNT & DIFF WBC 5.3 k/mm3 ()?? 06/09/2022 03:50 RBC 3.99 m/mm3 (Low)?? 06/09/2022 03:50 Hgb 10.3 Gm/dL (Low)?? 06/09/2022 03:50 Hct 32.1 % (Low)?? 06/09/2022 03:50 MCV 80.5 femtoliters ()?? 06/09/2022 03:50 MCH 25.8 pg (Low)?? 06/09/2022 03:50 MCHC 32.1 g/dL (Low)?? 06/09/2022 03:50 Platelet Count 322 k/mm3 ()?? 06/09/2022 03:50 RDW-SD 37.7 femtoliters ()?? 06/09/2022 03:50 MPV 9.1 femtoliters (Low)?? 06/09/2022 03:50 Nucleated RBC (Automated) 0.0 #/100 WBC'S ()?? 06/09/2022 03:50 Abs. NRBC 0.0 k/mm3 ()?? 06/09/2022 03:50 Abs. Neut 2.7 k/mm3 ()?? 06/07/2022 15:35 Abs. Lymph 1.8 k/mm3 ()?? 06/07/2022 15:35 Abs. [place] 0.3 k/mm3 (Low)?? 06/07/2022 15:35 Abs. Eo 0.3 k/mm3 ()?? 06/07/2022 15:35 Abs. Baso 0.0 k/mm3 ()?? 06/07/2022 15:35 Neut % 52.7 % ()?? 06/07/2022 15:35 Lymph % 35.5 % ()?? 06/07/2022 15:35 [place] % 6.0 % ()?? 06/07/2022 15:35 Eos % 5.0 % ()?? 06/07/2022 15:35 Baso % 0.6 % ()?? 06/07/2022 15:35 Imm Gran 0.2 % ()?? 06/07/2022 15:35 Abs. Imm Gran 0.0 k/mm3 ()?? 06/07/2022 15:35 ?? CHEM GENERAL Sodium 135 mmol/L ()?? 06/09/2022 03:50 Potassium 4.1 mmol/L ()?? 06/09/2022 03:50 Chloride 98 mmol/L ()?? 06/09/2022 03:50 Bicarbonate Level 26 mmol/L ()?? 06/09/2022 03:50 Anion Gap 11 ()?? 06/09/2022 03:50 Glucose Level 204 mg/dL (High)?? 06/09/2022 03:50 Glucose, POC 204 mg/dL (High)?? 06/09/2022 08:10 BUN 11 mg/dL ()?? 06/09/2022 03:50 Creatinine-Blood 0.6 mg/dL ()?? 06/09/2022 03:50 Estimated GFR Creatinine 110 ML/MIN/1.73 M2 ()?? 06/09/2022 03:50 Calcium 9.3 mg/dL ()?? 06/09/2022 03:50 Calcium, Ionized pH Corrected 1.22 mmol/L ()?? 06/09/2022 03:50 Phosphorus 4.7 mg/dL (High)?? 06/09/2022 03:50 Magnesium 2.1 mg/dL ()?? 06/09/2022 03:50 Protein, Total 6.5 Gm/dL ()?? 06/09/2022 03:50 Albumin 3.7 Gm/dL ()?? 06/09/2022 03:50 AG Ratio 1.3 ()?? 06/09/2022 03:50 Alkaline Phosphatase 108 units/L (High)?? 06/09/2022 03:50 Lipase 21 units/L ()?? 06/07/2022 15:35 AST (SGOT) 24 units/L ()?? 06/09/2022 03:50 ALT (SGPT) 22 units/L ()?? 06/09/2022 03:50 Bilirubin, Total 0.7 mg/dL ()?? 06/09/2022 03:50 Lactate 1.3 mmol/L ()?? 06/07/2022 15:35 ? ENDOCRINE/TUMOR MARKER Blood 2 mIU/mL ()?? 06/07/2022 15:35 Serum Qual NEGATIVE mIU/mL ()?? 06/07/2022 15:35 ?? HEME OTHER Hold Blue Top SPECIMEN DISCARDED AFTER 4 HOURS. ()?? 06/07/2022 15:35 ? MISC. CHEMISTRY 25 OH-Vitamin D Level 13.7 ng/mL (Low)?? 06/09/2022 03:50 ? UA/URINALYSIS Appear/Color, Urine YELLOW ()?? 06/08/2022 17:25 Specific Villalba, Urine 1.031 (High)?? 06/08/2022 17:25 pH, Urine 5.5 ()?? 06/08/2022 17:25 Albumin, Urine 1+ (Abnormal)?? 06/08/2022 17:25 Glucose, Urine NEGATIVE ()?? 06/08/2022 17:25 Ketones, Urine NEGATIVE ()?? 06/08/2022 17:25 Bilirubin, Urine NEGATIVE ()?? 06/08/2022 17:25 Hemoglobin, Urine NEGATIVE ()?? 06/08/2022 17:25 Nitrite, Urine NEGATIVE ()?? 06/08/2022 17:25 Leukocyte, Urine NEGATIVE ()?? 06/08/2022 17:25 Urobilinogen NORMAL mg/dL ()?? 06/08/2022 17:25 WBC's, Urine 1 /HPF ()?? 06/08/2022 17:25 RBC's, Urine 2 /HPF ()?? 06/08/2022 17:25 Bacteria SLIGHT HPF (Abnormal)?? 06/08/2022 17:25 Squamous Epith 2 /HPF ()?? 06/08/2022 17:25 Mucus SLIGHT /LPF ()?? 06/08/2022 17:25 Hold Urine Culture Testing available 48 hours from time of collection. ()?? 06/08/2022 17:25 ? VIROLOGY COVID-19 POC Result NEGATIVE ()?? 06/07/2022 12:40 ? 25??minutes spent on discharge * Rm WILSON, Carleen: PERFORM Event Display: Patient Education/Instruction Authored Date: [id number] Inpatient Adult Discharge Instructions [address] [address] Name: VILMA SERRANO : 1975 Visit: 06/07/2022 12:23:00 Current Date: 06/09/2022 16:03 Account: [id number] Inpatient Adult Discharge Instructions We would like [...] and their families. Surveys are administered by [employer] ?? If further treatment with your primary care physician or another doctor is recommended, it is important for you to keep the appointment. Call your primary care physician or return to the Emergency Department immediately if your condition worsens, fails to improve, or new symptoms develop. If you need to find a doctor, you can call [facility] [employer] for a referral at [phone] or toll free at [phone] or log in to [email or web address].. ?? You can view and manage your care through the patient portal or by using a health care aniyah of your choosing. [employer] is a website that allows you to securely view your medical information including your hospital discharge summary, office visit summaries, medications and follow-up visits. You can also request appointments, renew medications, and request access to your medical information using a health care aniyah of your choosing, or just ask a question. You can enroll at [email or web address] or register during your next office visit. You have been discharged from [facility], Patient Care Unit: D3B. If you have any questions regarding these instructions after you leave, please call us and we will be happy to assist you. [facility] Your Care Team Attending Physician Gio SHERIFF, Byron Discharging Providers Gio SHERIFF, Byron Reason for Your Visit Abdominal pain, Abdominal pain reevaluation Your Diagnosis Abdominal discomfort Abdominal pain Abdominal pain reevaluation Intractable nausea and vomiting Left lower quadrant pain Nausea Tests Performed Below is a partial list of the tests performed during your hospitalization. You may have had other tests and procedures not included in this list. Please discuss all test results with your provider. 25 OH Vitamin D Level CBC CBC w/ Differential Comprehensive Metabolic Panel COVID-19 RNA POC GLUCOSE POC Hold Blue Top Tube Ionized Calcium Lactate Level LIPASE Magnesium Level Phosphorus Level BLOOD, QUALITATIVE Serum Quantitative Urinalysis w/hold for Urine Culture CT Abd/Pelvis W/ IV Contrast Only XR Chest 2 Views Frontal and Lat Primary Care Provider Chaparrita Pizano DO Advance Directive . Discharge Vitals Temperature: 97.4 DegF Pulse Rate: 76 bpm Respiratory Rate: 18 br/min Systolic Blood Pressure: 117 mm Hg Diastolic Blood Pressure: 66 mm Hg Oxygen Saturation: 99 % Studies Pending All tests and labs ordered during this hospital stay have been completed unless listed below. Please discuss all pending results with your provider listed above in these instructions. ?? Add On Lab Order Blood Culture Blood Culture #2 Lactic Acid Level (Lactate Level) What to do next Instructions From Your Doctor Discharge Orders Scheduled Follow-Up Appointments Tuesday 4:00 PM EDT ?? With: Lorie SHERIFF, Antwan Hi Where: [facility] Infectious Disease [address] [place] [id number]- You Need to Schedule the Following Appointments Follow Up with??Chaparrita Pizano When??Within 1 week: call to discuss follow up visit Discharge Medications VILMA SERRANO :1975 Visit Date:06/07/2022 Medications: Please continue your medications until treatment is completed or stopped by your provider. Medications not listed below should be discontinued. Discuss any questions related to medications with your provider. What How Much When Instructions Next Dose Changed Albuterol (albuterol CFC free 90 mcg/ inh inhalation aerosol) 2 puff(s) Inhalation 4 times a day as needed for for wheezing Take as directed Changed Hydromorphone (HYDROmorphone 1 mg/ mL oral liquid) 4 Milliliter Oral Every 6 hours as needed for as needed for pain Take as directed Changed Miscellaneous Rx (Ensure High Protein) 113 Milliliter Oral 3 times a day with meals Take as directed Changed Pantoprazole (Pantoprazole Inj) 40 Milligram Intravenous Infusion Daily Take on tomorrow Unchanged Bisacodyl (bisacodyl 5 mg oral delayed release tablet) 1 tab(s) Oral Daily Take on tomorrow Unchanged Calcium Carbonate (Tums 500 mg oral tablet, chewable) 1 tab(s) Chew Every 4 hours as needed for Dyspepsia Take ??as directed Unchanged Cholecalciferol (Vitamin D3 2000 intl units oral capsule) 1 capsule Oral 3 times a day Take on tonight Unchanged DiphenhydrAMINE (Banophen 50 mg oral capsule) 1 capsule Intravenous Push 4 times a day as needed for as needed for itching Take as directed Unchanged Docusate-Senna (Senna Plus 50 mg-8.6 mg oral tablet) 2 tab(s) Oral Daily at Bedtime Take on tonight Unchanged Insulin Aspart (NovoLOG FlexPen 100 units/ mL subcutaneous solution) See instructions Use as per sliding scale ?? Unchanged Insulin Glargine 35 unit(s) Subcutaneous Injection Twice a day Take on tonight Unchanged Lactulose (lactulose 10 gm/ 15 ml oral syrup) 15 Milliliter Oral Daily as needed for as needed for constipation Unchanged Lidocaine Topical (lidocaine 5% topical film) See instructions Topically Daily as needed for pain remove patches after 12 hours ?? Unchanged Lorazepam (LORazepam 0.5 mg oral tablet) 1 tab(s) Oral Daily at Bedtime Take on tonight Unchanged Magnesium Sulfate (magnesium sulfate 4 g/ 100 mL-NaCl 0.9% intravenous solution) See instructions patient reports taking 4 g mag Tuesday and Tue IV. 8g of IV Mg on Sat ?? Take as directed Unchanged Methocarbamol (methocarbamol 500 mg oral tablet) 1 tab(s) Oral Daily at Bedtime Take on tonight Unchanged Ondansetron (ondansetron 4 mg oral tablet, disintegrating) 4 Milligram Intravenous Push Every 6 hours as needed for Nausea & Vomiting Take as directed Unchanged Potassium Chloride (potassium chloride 8 mEq (600 mg) oral capsule, extended release) 1 capsule Oral Daily Take on tomorrow Unchanged Propranolol (propranolol 120 mg oral capsule, extended release) 1 capsule Oral Daily at Bedtime Duration: 30 Days Take on tonight Unchanged Simvastatin (simvastatin 40 mg oral tablet) 1 tab(s) Oral Daily at Bedtime Take on tonight Unchanged Sucralfate (Carafate 1 gm oral tablet) 1 tab(s) Oral 3 times a day before meals and bedtime Duration: 30 Days Take on tonight Unchanged Sumatriptan (SUMAtriptan 50 mg oral tablet) 1 tab(s) Oral Daily as needed for for migraine headache may repeat dose after 2 hours up to a maximum of 2 ?? take as directed Test Results Below is a partial list of the most recent Laboratory test results done prior to this discharge. You may have had other tests and procedures not included in this list. Please discuss all test resultswith your provider. 25 OH Vitamin D Level (06/09/2022) ???25 OH-Vitamin D Level - 13.7 ng/mL CBC (06/09/2022) ???WBC - 5.3 k/mm3???RBC - 3.99 m/mm3???Hgb - 10.3 Gm/dL???Hct - 32.1 %???MCV - 80.5 femtoliters???MCH - 25.8 pg???MCHC - 32.1 g/dL???Platelet Count - 322 k/mm3???RDW-SD - 37.7 femtoliters???MPV - 9.1 femtoliters???Nucleated RBC (Automated) - 0.0 #/100 WBC'S???Abs. NRBC - 0.0 k/mm3 CBC w/ Differential (06/07/2022) ???WBC - 5.2 k/mm3???RBC - 4.51 m/mm3???Hgb - 11.4 Gm/dL???Hct - 35.9 %???MCV - 79.6 femtoliters???MCH - 25.3 pg???MCHC - 31.8 g/dL???Platelet Count - 334 k/mm3???RDW-SD - 37.1 femtoliters???MPV - 9.1 femtoliters???Nucleated RBC (Automated) - 0.0 #/100 WBC'S???Abs. NRBC - 0.0 k/mm3???Abs. Neut - 2.7 k/mm3???Abs. Lymph - 1.8 k/mm3???Abs. [place] - 0.3 k/mm3???Abs. Eo - 0.3 k/mm3???Abs. Baso - 0.0 k/mm3???Neut % - 52.7 %???Lymph % - 35.5 %???[place] % - 6.0 %???Eos % - 5.0 %???Baso % - 0.6 %???Imm Gran- 0.2 %???Abs. Imm Gran - 0.0 k/mm3 Comprehensive Metabolic Panel (06/09/2022) ???Sodium - 135 mmol/L???Potassium - 4.1 mmol/L???Chloride - 98 mmol/L???Bicarbonate Level - 26 mmol/L???Anion Gap - 11???Glucose Level - 204 mg/dL???BUN - 11 mg/dL???Creatinine-Blood - 0.6 mg/dL???Estimated GFR Creatinine - 110 ML/MIN/1.73 M2???Calcium - 9.3 mg/dL???Protein, Total - 6.5 Gm/dL???Alb umin - 3.7 Gm/dL???AG Ratio - 1.3???Alkaline Phosphatase - 108 units/L???AST (SGOT) - 24 units/L???ALT (SGPT) - 22 units/L???Bilirubin, Total - 0.7 mg/dL COVID-19 RNA POC (06/07/2022) ???COVID-19 POC Result - NEGATIVE GLUCOSE POC (06/09/2022) ???Glucose, POC - 204 mg/dL Hold Blue Top Tube (06/07/2022) ???Hold Blue Top - SPECIMEN DISCARDED AFTER 4 HOURS. Ionized Calcium (06/09/2022) ???Calcium, Ionized pH Corrected - 1.22 mmol/L Lactate Level (06/07/2022) ???Lactate - 1.3 mmol/L LIPASE (06/07/2022) ???Lipase - 21 units/L Magnesium Level (06/09/2022) ???Magnesium - 2.1 mg/dL Phosphorus Level (06/09/2022) ???Phosphorus - 4.7 mg/dL BLOOD, QUALITATIVE (06/07/2022) ??? Serum Qual - NEGATIVE Serum Quantitative (06/07/2022) ???Blood - 2 mIU/mL Urinalysis w/hold for Urine Culture (06/08/2022) ???Appear/Color, Urine - YELLOW???Specific Villalba, Urine - 1.031???pH, Urine - 5.5???Albumin, Urine - 1+???Glucose, Urine - NEGATIVE???Ketones, Urine - NEGATIVE???Bilirubin, Urine - NEGATIVE???Hemoglobin, Urine - NEGATIVE???Nitrite, Urine - NEGATIVE???Leukocyte, Urine - NEGATIVE???Urobilinogen - NORMAL???WBC's, Urine - 1 /HPF???RBC's, Urine - 2 /HPF???Bacteria - SLIGHT???Squamous Epith - 2 /HPF???Mucus - SLIGHT???Hold Urine Culture - Testing [...] SHELLY III or?? Trigger point of abdomen?? [facility] Switzer Team Senior Level Patient?? Education Materials Below is the list of Educational Leaflet Providered with your Discharge Instructions. Valuables and Belongings I fully understand and agree that [facility] accepts no responsibility for all my personal [...] patient Date for Pt to Sign Valuables/Belongings: 06/08/22 17:33:00 ?? Other Discharge Information ? Case Management Discharge Plan?? Discharge Plan?? Discharge Agency Information?? Discharge Level of Care at Discharge: Homehealth/VNA Name of Agency #1: [facility] Discharge Medical Equipment Companies: [facility] Service Categories #1: Other: TPN/IV ?? Pulmonary Rehab Status?? Pulmonary Rehab Discharge Status?? CPAP/BiPAP Mask Type: Pillows CPAP/BiPAP Mask Size: Small Respiratory Rate: 18 br/min Discharge Medical Equipment Companies: [facility] ? Common Emergency Awareness Tips IS IT [...] are strongly encouraged to quit. Please call [facility] [employer] at [phone] or [phone] ([phone]) or log in to [email or web address] for referrals to smoking cessation programs. ?? 351 Suicide & Crisis Lifeline is available 06/09 if you or someone you know needs to find a reason to keep living. By calling 489 you'll be connected to a skilled, trained counselor at a crisis center in your area. INPATIENT DISCHARGE INSTRUCTIONS SIGNATURE PAGE ZACH VILMA Location:[facility] Registration Date and Time:06/07/2022 12:23 EDT Primary Care Physician: Chaparrita Pizano DO, I VILMA SERRANO, have received the above patient education materials/instructions and have verbalized understanding. If ambulance or transport services are being used I further acknowledge being given a choice of service. ?? If you need to contact me, please call me at this number: . Patient/Sales Market Leader Name: Patient/Sales Market Leader Signature: Relationship to Patient: Witness Name/Signature: Date: * Carleen Abdalla RN: PERFORM Event Display: Patient Education/Instruction Authored Date: [id number] Inpatient Adult Discharge Instructions [address] [address] Name: VILMA SERRANO : 1975 Visit: 06/07/2022 12:23:00 Current Date: 06/09/2022 16:02 Account: [id number] Inpatient Adult Discharge Instructions We would like [...] and their families. Surveys are administered by [employer] ?? If further treatment with your primary care physician or another doctor is recommended, it is important for you to keep the appointment. Call your primary care physician or return to the Emergency Department immediately if your condition worsens, fails to improve, or new symptoms develop. If you need to find a doctor, you can call [facility] [employer] for a referral at [phone] or toll free at [phone] or log in to [email or web address].. ?? You can view and manage your care through the patient portal or by using a health care aniyah of your choosing. [employer] is a website that allows you to securely view your medical information including your hospital discharge summary, office visit summaries, medications and follow-up visits. You can also request appointments, renew medications, and request access to your medical information using a health care aniyah of your choosing, or just ask a question. You can enroll at [email or web address] or register during your next office visit. You have been discharged from [facility], Patient Care Unit: D3B. If you have any questions regarding these instructions after you leave, please call us and we will be happy to assist you. [facility] Your Care Team Attending Physician Byron Powers MD Discharging Providers Byron Powers MD Reason for Your Visit Abdominal pain, Abdominal pain reevaluation Your Diagnosis Abdominal discomfort Abdominal pain Abdominal pain reevaluation Intractable nausea and vomiting Left lower quadrant pain Nausea Tests Performed Below is a partial list of the tests performed during your hospitalization. You may have had other tests and procedures not included in this list. Please discuss all test results with your provider. 25 OH Vitamin D Level CBC CBC w/ Differential Comprehensive Metabolic Panel COVID-19 RNA POC GLUCOSE POC Hold Blue Top Tube Ionized Calcium Lactate Level LIPASE Magnesium Level Phosphorus Level BLOOD, QUALITATIVE Serum Quantitative Urinalysis w/hold for Urine Culture CT Abd/Pelvis W/ IV Contrast Only XR Chest 2 Views Frontal and Lat Primary Care Provider Chaparrita Pizano DO Advance Directive . Discharge Vitals Temperature: 97.4 DegF Pulse Rate: 76 bpm Respiratory Rate: 18 br/min Systolic Blood Pressure: 117 mm Hg Diastolic Blood Pressure: 66 mm Hg Oxygen Saturation: 99 % Studies Pending All tests and labs ordered during this hospital stay have been completed unless listed below. Please discuss all pending results with your provider listed above in these instructions. ?? Add On Lab Order Blood Culture Blood Culture #2 Lactic Acid Level (Lactate Level) What to do next Instructions From Your Doctor Discharge Orders Scheduled Follow-Up Appointments Tuesday. 2022 4:00 PM EDT ?? With: Lorie SHERIFF, Antwan Hi Where: [facility] Infectious Disease [address] [place] [address]- You Need to Schedule the Following Appointments Follow Up with??Chaparrita Pizano When??Within 1 week: call to discuss follow up visit Discharge Medications VILMA SERRANO :1975 Visit Date:06/07/2022 Medications: Please continue your medications until treatment is completed or stopped by your provider. Medications not listed below should be discontinued. Discuss any questions related to medications with your provider. What How Much When Instructions Next Dose Changed Albuterol (albuterol CFC free 90 mcg/ inh inhalation aerosol) 2 puff(s) Inhalation 4 times a day as needed for for wheezing Changed Hydromorphone (HYDROmorphone 1 mg/ mL oral liquid) 4 Milliliter Oral Every 6 hours as needed for as needed for pain Changed Miscellaneous Rx (Ensure High Protein) 113 Milliliter Oral 3 times a day with meals Changed Pantoprazole (Pantoprazole Inj) 40 Milligram Intravenous Infusion Daily Unchanged Bisacodyl (bisacodyl 5 mg oral delayed release tablet) 1 tab(s) Oral Daily Unchanged Calcium Carbonate (Tums 500 mg oral tablet, chewable) 1 tab(s) Chew Every 4 hours as needed for Dyspepsia Unchanged Cholecalciferol (Vitamin D3 2000 intl units oral capsule) 1 capsule Oral 3 times a day Unchanged DiphenhydrAMINE (Banophen 50 mg oral capsule) 1 capsule Intravenous Push 4 times a day as needed for as needed for itching Unchanged Docusate-Senna (Senna Plus 50 mg-8.6 mg oral tablet) 2 tab(s) Oral Daily at Bedtime Unchanged Insulin Aspart (NovoLOG FlexPen 100 units/ mL subcutaneous solution) See instructions Use as per sliding scale ?? Unchanged Insulin Glargine 35 unit(s) Subcutaneous Injection Twice a day Unchanged Lactulose (lactulose 10 gm/ 15 ml oral syrup) 15 Milliliter Oral Daily as needed for as needed for constipation Unchanged Lidocaine Topical (lidocaine 5% topical film) See instructions Topically Daily as needed for pain remove patches after 12 hours ?? Unchanged Lorazepam (LORazepam 0.5 mg oral tablet) 1 tab(s) Oral Daily at Bedtime Unchanged Magnesium Sulfate (magnesium sulfate 4 g/ 100 mL-NaCl 0.9% intravenous solution) See instructions patient reports taking 4 g mag Tuesday and Tue IV. 8g of IV Mg on Sat ?? Unchanged Methocarbamol (methocarbamol 500 mg oral tablet) 1 tab(s) Oral Daily at Bedtime Unchanged Ondansetron (ondansetron 4 mg oral tablet, disintegrating) 4 Milligram Intravenous Push Every 6 hours as needed for Nausea & Vomiting Unchanged Potassium Chloride (potassium chloride 8 mEq (600 mg) oral capsule, extended release) 1 capsule Oral Daily Unchanged Propranolol (propranolol 120 mg oral capsule, extended release) 1 capsule Oral Daily at Bedtime Duration: 30 Days Unchanged Simvastatin (simvastatin 40 mg oral tablet) 1 tab(s) Oral Daily at Bedtime Unchanged Sucralfate (Carafate 1 gm oral tablet) 1 tab(s) Oral 3 times a day before meals and bedtime Duration: 30 Days Unchanged Sumatriptan (SUMAtriptan 50 mg oral tablet) 1 tab(s) Oral Daily as needed for for migraine headache may repeat dose after 2 hours up to a maximum of 2 ?? Test Results Below is a partial list of the most recent Laboratory test results done prior to this discharge. You may have had other tests and procedures not included in this list. Please discuss all test resultswith your provider. 25 OH Vitamin D Level (06/09/2022) ???25 OH-Vitamin D Level - 13.7 ng/mL CBC (06/09/2022) ???WBC - 5.3 k/mm3???RBC - 3.99 m/mm3???Hgb - 10.3 Gm/dL???Hct - 32.1 %???MCV - 80.5 femtoliters???MCH - 25.8 pg???MCHC - 32.1 g/dL???Platelet Count - 322 k/mm3???RDW-SD - 37.7 femtoliters???MPV - 9.1 femtoliters???Nucleated RBC (Automated) - 0.0 #/100 WBC'S???Abs. NRBC - 0.0 k/mm3 CBC w/ Differential (06/07/2022) ???WBC - 5.2 k/mm3???RBC - 4.51 m/mm3???Hgb - 11.4 Gm/dL???Hct - 35.9 %???MCV - 79.6 femtoliters???MCH - 25.3 pg???MCHC - 31.8 g/dL???Platelet Count - 334 k/mm3???RDW-SD - 37.1 femtoliters???MPV - 9.1 femtoliters???Nucleated RBC (Automated) - 0.0 #/100 WBC'S???Abs. NRBC - 0.0 k/mm3???Abs. Neut - 2.7 k/mm3???Abs. Lymph - 1.8 k/mm3???Abs. [place] - 0.3 k/mm3???Abs. Eo - 0.3 k/mm3???Abs. Baso - 0.0 k/mm3???Neut % - 52.7 %???Lymph % - 35.5 %???[place] % - 6.0 %???Eos % - 5.0 %???Baso % - 0.6 %???Imm Gran- 0.2 %???Abs. Imm Gran - 0.0 k/mm3 Comprehensive Metabolic Panel (06/09/2022) ???Sodium - 135 mmol/L???Potassium - 4.1 mmol/L???Chloride - 98 mmol/L???Bicarbonate Level - 26 mmol/L???Anion Gap - 11???Glucose Level - 204 mg/dL???BUN - 11 mg/dL???Creatinine-Blood - 0.6 mg/dL???Estimated GFR Creatinine - 110 ML/MIN/1.73 M2???Calcium - 9.3 mg/dL???Protein, Total - 6.5 Gm/dL???Alb umin - 3.7 Gm/dL???AG Ratio - 1.3???Alkaline Phosphatase - 108 units/L???AST (SGOT) - 24 units/L???ALT (SGPT) - 22 units/L???Bilirubin, Total - 0.7 mg/dL COVID-19 RNA POC (06/07/2022) ???COVID-19 POC Result - NEGATIVE GLUCOSE POC (06/09/2022) ???Glucose, POC - 204 mg/dL Hold Blue Top Tube (06/07/2022) ???Hold Blue Top - SPECIMEN DISCARDED AFTER 4 HOURS. Ionized Calcium (06/09/2022) ???Calcium, Ionized pH Corrected - 1.22 mmol/L Lactate Level (06/07/2022) ???Lactate - 1.3 mmol/L LIPASE (06/07/2022) ???Lipase - 21 units/L Magnesium Level (06/09/2022) ???Magnesium - 2.1 mg/dL Phosphorus Level (06/09/2022) ???Phosphorus - 4.7 mg/dL BLOOD, QUALITATIVE (06/07/2022) ??? Serum Qual - NEGATIVE Serum Quantitative (06/07/2022) ???Blood - 2 mIU/mL Urinalysis w/hold for Urine Culture (06/08/2022) ???Appear/Color, Urine - YELLOW???Specific Villalba, Urine - 1.031???pH, Urine - 5.5???Albumin, Urine - 1+???Glucose, Urine - NEGATIVE???Ketones, Urine - NEGATIVE???Bilirubin, Urine - NEGATIVE???Hemoglobin, Urine - NEGATIVE???Nitrite, Urine - NEGATIVE???Leukocyte, Urine - NEGATIVE???Urobilinogen - NORMAL???WBC's, Urine - 1 /HPF???RBC's, Urine - 2 /HPF???Bacteria - SLIGHT???Squamous Epith - 2 /HPF???Mucus - SLIGHT???Hold Urine Culture - Testing [...] SHELLY III or?? Trigger point of abdomen?? [facility] Team Senior Level Patient?? Education Materials Below is the list of Educational Leaflet Providered with your Discharge Instructions. Valuables and Belongings I fully understand and agree that [facility] accepts no responsibility for all my personal [...] patient Date for Pt to Sign Valuables/Belongings: 06/08/22 17:33:00 ?? Other Discharge Information ? Case Management Discharge Plan?? Discharge Plan?? Discharge Agency Information?? Discharge Level of Care at Discharge: Homehealth/VNA Name of Agency #1: [facility] Discharge Medical Equipment Companies: [facility] Service Categories #1: Other: TPN/IV ?? Pulmonary Rehab Status?? Pulmonary Rehab Discharge Status?? CPAP/BiPAP Mask Type: Pillows CPAP/BiPAP Mask Size: Small Respiratory Rate: 18 br/min Discharge Medical Equipment Companies: [facility] ? Common Emergency Awareness Tips IS IT [...] are strongly encouraged to quit. Please call [employer] at [phone] or [phone] [employer] ([phone]) or log in to [email or web address] for referrals to smoking cessation programs. ?? 988 Suicide & Crisis Lifeline is available 06/09 if you or someone you know needs to find a reason to keep living. By calling 823 you'll be connected to a skilled, trained counselor at a crisis center in your area. INPATIENT DISCHARGE INSTRUCTIONS SIGNATURE PAGE VILMA SERRANO Location:[facility] Registration Date and Time:06/07/2022 12:23 EDT Primary Care Physician: Chaparrita Pizano DO, I VILMA SERRANO, have received the above patient education materials/instructions and have verbalized understanding. If ambulance or transport services are being used I further acknowledge being given a choice of service. ?? If you need to contact me, please call me at this number: . Patient/Sales Market Leader Name: Patient/Sales Market Leader Signature: Relationship to Patient: Witness Name/Signature: Date: * Natanasabalars MD, Byron: PERFORM, SIGN, VERIFY Event Display: Patient Education Handout Authored Date: [id number] * Heena Rasmussen RN: VERIFY, PERFORM, SIGN Event Display: Case Management Discharge Plan Authored Date: Patient: VILMA SERRANO Age: 46 years Sex: Female : 1975 Associated Diagnoses: None Author: Heena Rasmussen RN Discharge Plan Case Management Discharge Plan : Case Management Discharge Plan Data 06/08/2022 15:02 EDT Discharge Level of Care at Discharge Homehealth/VNA Discharge Medical Equipment Companies [facility] Name of Agency #1 [facility] Service Categories #1 Other: TPN/IV * Naebe , CIS S: TRANSCRIDaryl Rodriguez MD: VERIFY Event Display: Result: Authored Date: [id number] Chest 2 Views Frontal and Lat INDICATION/CLINICAL QUESTION: Central line tip superior vena cava. TECHNIQUE: Frontal and lateral views of the chest. COMPARISON: 05/08/2022. FINDINGS: LINES AND TUBES: None. LUNGS AND PLEURA: RIGHT CHEST: The right lung is clear and there is no right effusion. LEFT CHEST: The left lung is clear and there is no left effusion. HEART, MEDIASTINUM AND JAROCHO: The heart is of normal size. The mediastinum and jarocho are normal. BONES AND SOFT TISSUES: No acute bony abnormality. IMPRESSION: 1. No active disease in chest. WSN: [id number] Ordering Physician: Naye Iyer Dictated By: Daryl Morrison MD Dictated Date/Time: 06/07/22 4:57 pm Reviewed By: Daryl Morrison MD Signed By: Daryl Morrison MD Signed Date/Time: 06/07/22 4:57 pm Transcribed By: DEIDRE Transcribed Date/Time: 06/07/22 4:[address] Abdomen and Pelvis W contrast IV * LISETHSPzelalemribe , CIS S: TRANSCHECTOR Mckeon MD, Olga: VERIFY Event Display: Result: Authored Date: [id number] CT Abd/Pelvis W/ IV Contrast Only Hx of Present Illness: States two episodes of sepsis this year. had infected port then had staff infection bacteremia?. States increasing fevers, chills, left sided abdominal pain radiating to her flank. Increasing nausea . denies dysuria; Reason: Other:; LLQ abdominal pain; Clinical Question(s):Obstruction; Order Comment: TECHNIQUE: Spiral CT through the abdomen and pelvis with IV contrast formatted in 3 planes. 100 cc of Omnipaque 300 was administered intravenously. This study was performed without oral contrast. Weight-based protocol using automatic tube modulation was used to optimize exposure parameters. CTDIvol Body: 22.17 mGy, DLP Body: 1179 mGy*cm. COMPARISON: 12/05/2021. FINDINGS: Loan Analyst View Findings, Lines and Tubes: None. Visualized Chest: Mild interlobular septal thickening in the visualized lung bases. There is a small focus of subsegmental atelectasis in the right lower lobe. No pleural effusion. The heart is normal in size. No pericardial effusion. Diaphragm: Normal. Liver: Normal. Gallbladder: Absent consistent with prior cholecystectomy. Bile ducts: No biliary ductal dilation. Spleen: Normal. Pancreas: Normal. Adrenal glands: Normal. Kidneys and ureters: No hydronephrosis, stones, or suspicious masses. There are prominent columns of [place] bilaterally. Bladder: Under distended but appears normal. Reproductive organs: Status post hysterectomy. No adnexal mass is seen. Stomach, small bowel, and large bowel: Normal. Appendix: Normal. Peritoneum and retroperitoneum: No ascites or pneumoperitoneum. No omental or mesenteric lesions. Lymph nodes: No enlarged lymph nodes. Blood vessels: Mild vascular calcifications but no aneurysm. No evidence of venous thrombosis. Abdominal and pelvic wall: Prior ventral hernia repair with mesh anchors in place. Right rectus abdominis muscle is atrophied inferiorly. Bones: No acute abnormality. Mild to moderate multilevel degenerative disc disease throughout the spine. IMPRESSION: 1. No acute abnormality in the abdomen or pelvis. 2. Findings suggesting mild pulmonary edema. WSN: [id number] Ordering Physician: Naye Iyer Dictated By: Olga Mckeon MD Dictated Date/Time: 06/07/22 6:45 pm Reviewed By: Olga Mckeon MD Signed By: Olga Mckeon MD Signed Date/Time: 06/07/22 6:45 pm Transcribed By: CSB Transcribed Date/Time: 06/07/22 6:38 pm Patient Care team information Care Team Personnel Name: Lola Belcher RN Position: [facility] RN Member Role: Primary Care Nurse Name: Jose Enrique Saul RN Position: [facility] RN Member Role: Primary Care Nurse Name: Symone Mckinnon RN Position: [facility] RN Member Role: Primary Care Nurse Name: Carolyn Pelaez RN Position: [facility] RN Member Role: Primary Care Nurse Name: Fanny Mixon RN Position: [facility] ED RN W/OE and Tasks Member Role: Primary Care Nurse Name: María Ashford RN Position: [facility] AMB Nurse Member Role: Primary Care Nurse Name: Chanelle Hernandez RN Position: [facility] AMB Nurse Member Role: Primary Care Nurse Name: Estelle García RN Position: [facility] RN Member Role: Primary Care Nurse Name: Deanne Rangel RN Position: [facility] RN Member Role: Primary Care Nurse Name: Carine Jimenez RN Position: [facility] SN RN Member Role: Primary Care Nurse Name: Jenelle Campo RN Position: [facility] RN Member Role: Primary Care Nurse Name: Keyla Godwin RN Position: [facility] RN Member Role: Primary Care Nurse Name: Yeimi Devine RN Position: [facility] RN Member Role: Primary Care Nurse Name: Mary Yan RN Position: [facility] RN Member Role: Primary Care Nurse Name: Iliana Pop RN Position: [facility] RN Member Role: Primary Care Nurse Name: Clovis Wang RN Position: [facility] RN Member Role: Primary Care Nurse Name: Alcides Dueñas RN Position: [facility] RN Member Role: Primary Care Nurse Name: Lisa Beatty Position: [facility] Outreach Member Role: Lifetime Consulting Physician Name: Armida Beatty RN Position: [facility] RN Member Role: Primary Care Nurse Name: Deonna Beatty RN Position: [facility] RN Member Role: Primary Care Nurse Name: Roque Villasenor MD Position: [facility] Renal MD Member Role: Lifetime Consulting Physician Address: Address: [address] [place] [address], [address] [facility] [place], [place] [address] Name: Lashon Lovell RN Position: [facility] SN RN Member Role: Primary Care Nurse Name: Kristi Giraldo RN Position: [facility] RN Supv Member Role: Primary Care Nurse Name: Jerrod Casarez RN Position: [facility] RN Member Role: Primary Care Nurse Name: Shane Riley RN Position: [facility] RN Member Role: Primary Care Nurse Name: Isac Plascencia RN Position: [facility] RN Member Role: Primary Care Nurse Name: Rosalva Martin RN Position: [facility] RN Member Role: Primary Care Nurse Name: Sheela Matt RN Position: [facility] RN Member Role: Primary Care Nurse Name: Armida Ochoa RN Position: [facility] RN Member Role: Primary Care Nurse Name: Felipa iDehl RN Position: [facility] HBO Wound Member Role: Primary Care Nurse Name: Evelin Powell RN Position: [facility] AMB Nurse Member Role: Primary Care Nurse Name: Donald Murphy MD Position: [facility] Renal MD Member Role: Lifetime Consulting Physician Address: Address: [address] [place] [address] [facility] [place] [address]- Name: Deonna Pendleton RN Position: [facility] RN Member Role: Primary Care Nurse Name: Pili Kaba RN Position: [facility] ED RN W/OE and Tasks Member Role: Primary Care Nurse Name: Alejandro Yanes RN Position: [facility] RN Member Role: Primary Care Nurse Name: Stacey Díaz RN Position: [facility] SN RN Member Role: Primary Care Nurse Name: Jac Reese RN Position: [facility] RN Member Role: Primary Care Nurse Name: Erica Maya Position: [facility] TA Member Role: Lifetime Consulting Physician Name: Celestine Schwartz RN Position: [facility] RN Member Role: Primary Care Nurse Name: Neeta Carpenter RN Position: [facility] RN Member Role: Primary Care Nurse Name: Susie Estrada RN Position: [facility] RN Member Role: Primary Care Nurse Name: Inna Cantor RN Position: [facility] RN Member Role: Primary Care Nurse Name: Chaparrita Pizano DO Position: [facility] Physician (General Medicine) Member Role: PCP Address: Address: [address] [place] [id number]- Name: Ning Rolon RN Position: [facility] RN Member Role: Primary Care Nurse Name: Rubi Carrasco RN Position: [facility] SN RN Member Role: Primary Care Nurse Name: Lauryn Holden RN Position: [facility] RN Member Role: Primary Care Nurse Name: Jones Cervantes RN Position: [facility] RN Member Role: Primary Care Nurse Name: Olivia Caputo RN Position: [facility] RN Member Role: Primary Care Nurse Name: Brooklyn Jim RN Position: [facility] RN Member Role: Primary Care Nurse Name: Kimberly Santoro RN Position: [facility] RN Member Role: Primary Care Nurse Name: Haley Diamond RN Position: [facility] RN Member Role: Primary Care Nurse Name: Ashley Meléndez NP Position: [facility] PCO Associate Professional Member Role: Primary Care Nurse Address: Address: [address] [place] [address] Name: Siomara Patricia RN Position: [facility] PCO RN Member Role: Primary Care Nurse Name: Neeta Painter RN Position: [facility] RN Member Role: Primary Care Nurse Name: Bailey Espinal RN Position: [facility] AMB Nurse Member Role: Primary Care Nurse Name: Brooklyn Ramsey RN Position: [facility] RN Member Role: Primary Care Nurse Name: Keyla Bright RN Position: [facility] RN Member Role: Primary Care Nurse Name: Lesli Corcoran RN Position: [facility] RN Member Role: Primary Care Nurse Name: Beverley Tatum RN Position: [facility] RN Member Role: Primary Care Nurse Name: Mainor Devries RN Position: [facility] RN Member Role: Primary Care Nurse Name: Yarely Richards RN Position: [facility] Portable Feed Mill Operator Member Role: Primary Care Nurse Name: Oralia Massey RN Position: [facility] RN Member Role: Primary Care Nurse Name: Cassie Villanueva RN Position: [facility] RN Member Role: Primary Care Nurse Name: Taiwo Mcgregor RN Position: [facility] RN Member Role: Primary Care Nurse Name: Cally Funes RN Position: [facility] RN Member Role: Primary Care Nurse Name: Lisa Blanton RN Position: [facility] [employer] Mill Operator Member Role: Primary Care Nurse Name: Joel Blanton RN Position: [facility] RN Member Role: Primary Care Nurse Name: Danica Stuart RN Position: [facility] AMB Nurse Member Role: Primary Care Nurse Name: Virginia Bacon RN Position: [facility] RN Member Role: Primary Care Nurse Name: Shruthi Ray RN Position: [facility] Onco RN Member Role: Primary Care Nurse Name: Abbe Choe RN Position: [facility] RN Supv Member Role: Primary Care Nurse Name: Farideh Cat LPN Position: [facility] RN Member Role: Primary Care Nurse Name: Janis Morris RN Position: [facility] [employer] Operator Member Role: Primary Care Nurse Name: Darrian Chang RN Position: [facility] [employer] Operator Member Role: Primary Care Nurse Name: Josef Woods RN Position: [facility] RN Member Role: Primary Care Nurse Name: Siomara Raphael RN Position: [facility] RN Member Role: Primary Care Nurse Name: Jerry Mcneill RN Position: [facility] RN Member Role: Primary Care Nurse Name: [facility] Attending Position: [facility] ED Medicine MD Name: Sarah Saba RN Position: [facility] ED RN W/OE and Tasks Member Role: Patient Care Provider Name: Kris Swan Position: [facility] ED TA [facility] Member Role: Patient Care Provider Care Team Related Persons Name: IVAN VILLASENOR Address: [place] [address] Name: REYNALDO KAUR Address: [address] [place] [address] Name: EMMA SERRANO Address: home [address] [address] Name: PATRICK MATA Address: [address] [place] [address] Name: FARIDEH POPE Address: [place] [address]
--- OUTSIDE RECORDS SUMMARY | 2022-08-31 01:17 | XMS_ITS | Continuity of Care Document ---
Author Name Unknown Organization [facility] ter Address [address] [place] [address]- Care Team Providers Care Chlorinator Name Role Phone Chaparrita Pizano DO Primary Care Physician [place] [facility] [place] - 04/21/[address] [address]- [facility] Discharge Disposition: A-D/C Home Attending Physician: López Hall MD Admitting Physician: [...] 11:42:54 EDT, Aerosol, Route to Pharmacy Electronically, [id number], [facility]/pharmacy #[id number], Compound Start Date: 06/10/17 Status: [...] 05/05/18 9:38:51 EDT, Route to Pharmacy Electronically, [id number]... Start Date: 05/05/18 Status: Ordered Lantus 100 [...] tablet, 0 Refills, Maintenance, 01/31/19 15:17:00 EST, [facility]/pharmacy #[id number], 155.9, cm, 01/29/19 15:24:00 EST, [...] 08/30/17 8:21:42 EDT, Route to Pharmacy Electronically, [id number], [facility]/pharmacy #[id number] Start Date: 08/30/17 Status: Ordered Tums 500 mg oral tablet, chewable 500 mg, 1, tablet, Chew, Every 4 hours, PRN, # 180 tablet, Refills 0, Tot. Refills 0, Maintenance, Dyspepsia, 06/21/18 11:05:15 EDT, Route to Pharmacy Electronically, [id number], [facility] 3 Start Date: 06/21/18 Status: Ordered Vitamin [...] WITH PRO LONGED DEPRESSIVE REACTION(Confirmed) 02/03/[address] [facility] Emeral d Team Senior Level [...] recent to oldest [Reference Range]: 1 2 Oxygen Saturation [94-100 %] 97 % (04/21/19 2:18 PM) 100 % (04/21/19 6:22 AM) Pulse Rate [55-90 bpm] 91 bpm *H* (04/21/19 2:18 PM) 84 bpm (04/21/19 6:22 AM) Blood Pressure [90-138/55-84 mm Hg] 136/ 93mm Hg (04/21/19 2:18 PM) 134/93mm Hg (04/21/19 6:22 AM) Respiratory Rate [16-30 br/min] 20 br/mi n (04/21/19 2:18 PM) 18 br/min (04/21/19 6:22 AM) Temperature [96.8-100.4 DegF] 98 DegF (04/21/19 2:18 PM) 97.8 DegF (04/21/19 6:22 AM) Mode of Delivery (Oxygen) Room air (04/21/19 2:18 PM) Room air (04/21/19 6:22 AM) Blood pressure sites Arm, left (04/21/19 2:18 PM) Arm, right (04/21/19 6:22 AM) Temperature Route Oral (04/21/19 2:18 PM) Oral (04/21/19 6:22 AM) Social History Social History Type Response Smoking Status Former smoker; Other : quit 04/2015; entered on: 01/30/16 Sex Female
--- OUTSIDE RECORDS SUMMARY | 2022-08-31 01:17 | XMS_ITS | Continuity of Care Document ---
Author Name Unknown Organization [facility] ter Address [address] [place] [address]- Care Team Providers Care Mail Clerks Supervisor Name Role Phone Chaparrita Pizano DO Primary Care Physician [place] [facility] [place] - 12/11/[address] [address]- [facility] Encounter Diagnosis Abdominal pain(Final) - 12/11/19 Discharge Disposition: A-D/C Home Attending Physician: Wilman Smith DO Admitting Physician: Wilman Smith DO Referring Physician: Not on Staff, Referring [...] regimen as shared during June 2014 admission. 2per , tolerates with diphenhydramine 3Tolerates hydromorphone [...] 11:42:54 EDT, Aerosol, Route to Pharmacy Electronically, [id number], [facility]/pharmacy #[id number], Compound Start Date: 06/10/17 Status: [...] capsule, 0 Refills, Maintenance, 05/02/19 10:52:00 EDT, [facility]/pharmacy #[id number], 155.9, cm, 04/26/19 9:14:00 EDT, [...] 05/05/18 9:38:51 EDT, Route to Pharmacy Electronically, [id number]... Start Date: 05/05/18 Status: Ordered Insulin Glargine Inj 0.6 mL = 60 units, Subcutaneous Injection, Daily at bedtime, 0 Refills, Maintenance, 08/20/19 18:48:00 EDT, Injection Start Date: 08/20/19 Status: Ordered LORazepam 0.5 mg oral tablet See Instructions, Take 1 tablet by mouth 1 hour prior to biopsy appointment, may repeat x1 if needed, # 2 tablet, 0 Refills, Maintenance, 04/27/19 16:33:00 EDT, [facility]/pharmacy #[id number], 155.9, cm, 04/26/19 9:14:00 EDT, [...] each, 2 Refills, Maintenance, 12/05/19 20:53:00 EDT, [facility], 155, cm, 08/20/19 16:31:00 [...] 12/06/19 12:17:00 EDT, Route to Pharmacy Electronically, [facility]/pharmacy #[id number], Partial fillupon patient request, 155, [...] 08/30/17 8:21:42 EDT, Route to Pharmacy Electronically, [id number], [facility]/pharmacy #[id number] Start Date: 08/30/17 Status: Ordered [...] 06/21/18 11:05:15 EDT, Route to Pharmacy Electronically, [id number], [facility] Start Date: [...] WITH PRO LONGED DEPRESSIVE REACTION(Confirmed) 02/03/07 Active [facility] Emeral d Team Senior Level [...] 3 Oxygen Saturation [94-100 %] 98 % (12/11/19 2:13 PM) 96 % (12/11/19 12:35 PM) 99 % (12/11/19 8:30 AM) Pulse Rate [55-90 bpm] 85 bpm (12/11/19 2:13 PM) 82 bpm (12/11/19 8:30 AM) 92 bpm *H* (12/11/19 6:16 AM) Blood Pressure [90-138/55-84 mm Hg] 146/91mm Hg *H* (12/11/19 2:13 PM) 145/78mm Hg *H* (12/11/19 12:35 PM) 130/75mm Hg (12/11/19 8:30 AM) Respiratory Rate [16-30 br/min] 16 br/min (12/11/19 2:13 PM) 18 br/min (12/11/19 12:35 PM) 16 br/min (12/11/19 12:27 PM) Temperature [96.8-100.4 DegF] 98.1 DegF (12/11/19 6:16 AM) 97.8 DegF (12/11/19 5:04 AM) 98.1 DegF (12/11/19 3:11 AM) Mode of Delivery (Oxygen) Room air (12/11/19 2:13 PM) Room air (12/11/19 12:35 PM) Room air (12/11/19 8:30 AM) Blood pressure sites Arm, left (12/11/19 2:13 PM) Arm, left (12/11/19 12:35 PM) Arm, left (12/11/19 8:30 AM) Temperature Route Oral (12/11/19 6:16 AM) Oral (12/11/19 5:04 AM) Oral (12/11/19 3:11 AM) Social History Social History Type Response Smoking Status Former smoker; Other : quit 04/2015; entered on: 01/30/16 Sex Female
--- OUTSIDE RECORDS SUMMARY | 2022-08-31 01:17 | XMS_ITS | Continuity of Care Document ---
Author Name Unknown Organization [facility] Address [address] [place] [address]- Care Team Providers Care Kiln Mechanic Name Role Phone JericaChaparrita apple DO Primary Care Physician Encounter [facility] Date(s): 07/04/20 - 08/03/20 [facility] [address], [place] [address] Allergies, Adverse Reactions, Alerts Substance [...] 1 02/02/07 Given 1Admin Note: manufactured by [employer] Medications albuterol 0.042% inhalation solution 3 [...] 0 Refills, Soft Stop, 04/09/20 13:16:00 EST, [facility], Partial fill upon patient [...] 08/14/20 14:34:00 EDT, 07/31/20 14:34:00 EDT, Tablet, [facility], Partialfill upon patient request if the prescription is for a... Start Date: 07/31/20 Stop Date: 08/14/20 Status: Ordered ondansetron 4 mg oral tablet, disintegrating = 4 mg, By Mouth, Every 6 hours, PRN Nausea & Vomiting, # 90 tablet, 0 Refills, Maintenance, 04/02/20 9:29:00 EST, Tablet, [facility], Partial fill upon patient request if the prescription is for a schedule II opioid drug., 154.94, cm, 0... Start Date: 04/02/20 Status: Ordered oxyCODONE 10 mg oral tablet See Instructions, 1 tablet By Mouth 5 times per day for 7 days, per pain services recommedations, #35 tablet, 0 Refills, Maintenance, 06/20/20 8:49:00 EDT, Tablet, [facility]/pharmacy #[id number], Partial fill upon patient request if the [...] 08/30/17 8:21:42 EDT, Route to Pharmacy Electronically, [id number], [facility]/pharmacy #[id number] Start Date: 08/30/17 Status: Ordered Tums 500 mg oral tablet, chewable 500 mg, 1, tablet, Chew, Every 4 hours, PRN, # 180 tablet, Refills 0, Tot. Refills 0, Maintenance, Dyspepsia, 06/21/18 11:05:15 EDT, Route to Pharmacy Electronically, [id number], [facility] Start Date: 06/21/18 [...] WITH PRO LONGED DEPRESSIVE REACTION(Confirmed) 02/03/07 Active [facility] Emeral d Team Senior Level [...]
--- OUTSIDE RECORDS SUMMARY | 2022-08-31 01:17 | XMS_ITS | Continuity of Care Document ---
Author Name Unknown Organization [facility] Address [address] [place] [address]- Care Team Providers Care Hvac Installer Name Role Phone Chaparrita Pizano DO Primary Care Physician Encounter [facility] Date(s): 04/16/20 - 05/16/20 [facility] [address] [place], [place] [address] [...] Refills, Maintenance, 04/03/20 13:23:00 EST, Solution, [id number], Partial fill upon patient request if the [...] 0 Refills, Soft Stop, 04/09/20 13:16:00 EST, [facility], Partial fill [...] Refills, Maintenance, 04/02/20 9:29:00 EST, Tablet, [facility], Partial fill upon patient request if the prescription is for a schedule II opioid drug., 154.94, cm, 0... Start Date: 04/02/20 Status: Ordered oxyCODONE 10 mg oral tablet 2 tablet = 20 mg, By Mouth, Every 6 hours, PRN Pain , Severe, take 1 tab for less severe pain, # 56tablet, 0 Refills, Maintenance, 05/09/20 16:38:00 EDT, Tablet, [facility]/pharmacy #[id number], Partial fill upon patient request if the [...] 08/30/17 8:21:42 EDT, Route to Pharmacy Electronically, [id number], [facility] #[id number] Start Date: 08/30/17 Status: Ordered Tums 500 mg oral tablet, chewable 500 mg, 1, tablet, Chew, Every 4 hours, PRN, # 180 tablet, Refills 0, Tot. Refills 0, Maintenance, Dyspepsia, 06/21/18 11:05:15 EDT, Route to Pharmacy Electronically, [id number], [facility] Start [...] WITH PRO LONGED DEPRESSIVE REACTION(Confirmed) 02/03/[address] [facility] Emeral d Team [...]
--- OUTSIDE RECORDS SUMMARY | 2022-08-31 01:17 | XMS_ITS | Continuity of Care Document ---
Author Name Unknown Organization [facility] Address [address] [place] [address] [address], [address] [place] [address]- Care Team Providers Care Power Digger Operator Name Role Phone Chaparrita Pizano DO Primary Care Physician [place] [facility] [place] 09[place]30/21 - 11/12/21 [facility] [address] [place] [address] Drive, [address] [place] [address]- Attending Physician: Adriano Quiles MD Referring Physician: Delfina Fitch DO Allergies, Adverse [...] to receive vaccine 2Admin Note: manufactured by [employer] Medications albuterol 0.042% inhalation solution 3 [...] 09/08/21 13:21:00 EDT, Route to Pharmacy Electronically, [facility], Partial fill upon patient request [...] 08/31/22 13:22:00 EDT, 08/31/20 13:21:00 EDT, Syrup, [facility]/pharmacy #[id number], Partial fill upon patient request if [...] 0 Refills, Maintenance, 04/02/20 9:29:00 EST, Tablet, [facility], Partial fill upon patient request [...] 06/21/18 11:05:15 EDT, Route to Pharmacy Electronically, [id number], [facility] Start Date: 06/21/18 Status: Ordered [...] WITH PROLONGED DEPRESSIVE REACTION Confirmed 02/03/07 Active [facility] Team Senior Level Patient Confirmed Active [facility] [...] Personnel Name: Chaparrita Pizano DO Address: Address: [address] [place] [address] [facility] [place], [place] [address]
--- OUTSIDE RECORDS SUMMARY | 2022-08-31 01:17 | XMS_ITS | Continuity of Care Document ---
Author Name Unknown Organization [facility] ter Address [address] [place] [address]- Care Team Providers Care Sensitometrist Name Role Phone Chaparrita Pizano DO Primary Care Physician Encounter [facility] [place] Date(s): 08/20/21 - 03/15/[address] [address]- Attending Physician: Donald Murphy MD Admitting Physician: Donald Murphy MD Referring Physician: Donald Murphy MD Allergies, Adverse Reactions, Alerts Substance Reaction Severity Status doxycycline mouth swelling Active ceftriaxone hives Active penicillin throat swelling Rash Persistent Severe Active iodine topical swelling itching Active Zofran 1 can only be given w/ benadryl hives Active famotidine vomiting Active morphine 2, 3, 4 hives Active melatonin Active Pepcid vomitng Active Seafood Anaphylactic shock [...] to receive vaccine 2Admin Note: manufactured by [employer] Medications albuterol 0.042% inhalation solution 3 [...] 03/12/22 12:08:00 EST, Route to Pharmacy Electronically, [facility] [...] 03/09/23 23:00:00 EST, 03/12/22 12:09:00 EST, Syrup, [facility], Partial fill upon [...] 03/09/23 23:00:00 EST, 03/12/22 12:10:00 EST, Patch, [facility], Partial fill upon [...] tablet, 0 Refills, Maintenance, 04/02/20 9:29:00 EST, [facility], Partial fill upon patient [...] 03/12/22 12:06:00 EST, Route to Pharmacy Electronically, [facility], Partial fill uponpatient request if the [...] 06/21/18 11:05:15 EDT, Route to Pharmacy Electronically, [id number], [facility] 3 Start Date: [...] WITH PROLONGED DEPRESSIVE REACTION Confirmed 02/03/07 Active [facility] Team Senior Level Patient Confirmed Active [facility] [...] Team Personnel Name: Lola Belcher RN Position: [facility] RN Member Role: Primary Care Nurse Name: Jose Enrique Saul RN Position: [facility] RN Member Role: Primary Care Nurse Name: Symone Mckinnon RN Position: [facility] RN Member Role: Primary Care Nurse Name: Carolyn Pelaez RN Position: [facility] RN Member Role: Primary Care Nurse Name: Deanna Garcia RN Position: [facility] RN Member Role: Primary Care Nurse Name: Fanny Mixon RN Position: [facility] ED RN W/OE and Tasks Member Role: Primary Care Nurse Name: María Ashford RN Position: [facility] AMB Nurse Member Role: Primary Care Nurse Name: Chanelle Hernandez RN Position: [facility] PCO RN Member Role: Primary Care Nurse Name: Estelle García RN Position: [facility] RN Member Role: Primary Care Nurse Name: Deanne Rangel RN Position: [facility] RN Member Role: Primary Care Nurse Name: Carine Jimenez RN Position: [facility] SN RN Member Role: Primary Care Nurse Name: Jenelle Campo RN Position: [facility] RN Member Role: Primary Care Nurse Name: Keyla Godwin RN Position: [facility] RN Member Role: Primary Care Nurse Name: Yeimi Devine RN Position: [facility] RN Member Role: Primary Care Nurse Name: Pili Gurrola RN Position: [facility] RN Member Role: Primary Care Nurse Name: Mary Yan RN Position: [facility] RN Member Role: Primary Care Nurse Name: Iliana Pop RN Position: [facility] RN Member Role: Primary Care Nurse Name: Alcides Dueñas RN Position: [facility] RN Member Role: Primary Care Nurse Name: Lisa Beatty Position: [facility] Outreach Member Role: Lifetime Consulting Physician Name: Armida Beatty RN Position: [facility] RN Member Role: Primary Care Nurse Name: Roque Villasenor MD Position: [facility] Renal MD Member Role: Lifetime Consulting Physician Address: Address: [address] [place] [address], [address] [facility] [address] Name: Lashon Lovell RN Position: [facility] SN RN Member Role: Primary Care Nurse Name: Kristi Giraldo RN Position: [facility] RN Supv Member Role: Primary Care Nurse Name: Jerrod Casarez RN Position: [facility] RN Member Role: Primary Care Nurse Name: Shane Riley RN Position: [facility] RN Member Role: Primary Care Nurse Name: Isac Plascencia RN Position: [facility] RN Member Role: Primary Care Nurse Name: Rosalva Martin RN Position: [facility] RN Member Role: Primary Care Nurse Name: Sheela Matt RN Position: [facility] RN Member Role: Primary Care Nurse Name: Armida Ochoa RN Position: [facility] RN Member Role: Primary Care Nurse Name: Deonna Murillo RN Position: [facility] RN Member Role: Primary Care Nurse Name: Felipa Diehl RN Position: [facility] HBO Wound Member Role: Primary Care Nurse Name: Evelin Powell RN Position: [facility] AMB Nurse Member Role: Primary Care Nurse Name: Deonna Pendleton RN Position: [facility] RN Member Role: Primary Care Nurse Name: Pili Kaba RN Position: [facility] RN Member Role: Primary Care Nurse Name: Alejandro Yanes RN Position: [facility] RN Member Role: Primary Care Nurse Name: Stacey Díaz RN Position: [facility] SN RN Member Role: Primary Care Nurse Name: Jac Reese RN Position: [facility] RN Member Role: Primary Care Nurse Name: Celestine Schwartz RN Position: [facility] RN Member Role: Primary Care Nurse Name: Neeta Carpenter RN Position: [facility] RN Member Role: Primary Care Nurse Name: Susie Estrada RN Position: [facility] RN Member Role: Primary Care Nurse Name: Inna Cantor RN Position: [facility] RN Member Role: Primary Care Nurse Name: Chaparrita Pizano DO Position: [facility] Physician (General Medicine) Member Role: PCP Address: Address: [address] [place] [id number]- [place] Name: Ning Rolon RN Position: [facility] RN Member Role: Primary Care Nurse Name: Rubi Carrasco RN Position: [facility] SN RN Member Role: Primary Care Nurse Name: Lauryn Holden RN Position: [facility] RN Member Role: Primary Care Nurse Name: Shen Silvestre RN Position: [facility] RN Member Role: Primary Care Nurse Name: Jones Cervantes RN Position: [facility] RN Member Role: Primary Care Nurse Name: Olivia Caputo RN Position: [facility] RN Member Role: Primary Care Nurse Name: Brooklyn Jim RN Position: [facility] RN Member Role: Primary Care Nurse Name: Kimberly Santoro RN Position: [facility] RN Member Role: Primary Care Nurse Name: Haley Diamond RN Position: [facility] RN Member Role: Primary Care Nurse Name: Ashley Meléndez NP Position: [facility] PCO Associate Professional Member Role: Primary Care Nurse Address: Address: [address] [place] [address]- Name: Siomara Patricia RN [facility] RN Member Role: Primary Care Nurse Name: Neeta Painter RN Position: [facility] RN Member Role: Primary Care Nurse Name: Edith Drummond RN Position: [facility] RN Member Role: Primary Care Nurse Name: Bailey Espinal RN Position: [facility] AMB Nurse Member Role: Primary Care Nurse Name: Brooklyn Ramsey RN Position: [facility] RN Member Role: Primary Care Nurse Name: Keyla Bright RN Position: [facility] RN Member Role: Primary Care Nurse Name: Beverley Tatum RN Position: [facility] RN Member Role: Primary Care Nurse Name: Mainor Devries RN Position: [facility] RN Member Role: Primary Care Nurse Name: Yarely Richards RN Position: [facility] Hospital Recreation Programmer Member Role: Primary Care Nurse Name: Oralia Massey RN Position: [facility] RN Member Role: Primary Care Nurse Name: Cassie Villanueva RN Position: [facility] RN Member Role: Primary Care Nurse Name: Taiwo Mcgregor RN Position: [facility] RN Member Role: Primary Care Nurse Name: Cally Funes RN Position: [facility] SN RN Member Role: Primary Care Nurse Name: Marina Osorio Position: [facility] RN Member Role: Primary Care Nurse Name: Lisa Blanton RN Position: [facility] Recreation Programmer Member Role: Primary Care Nurse Name: Danica Stuart RN Position: [facility] AMB Nurse Member Role: Primary Care Nurse Name: Virginia Bacon RN Position: [facility] RN Member Role: Primary Care Nurse Name: Shruthi Ray RN Position: [facility] RN Member Role: Primary Care Nurse Name: Abbe Choe RN Position: [facility] RN Supv Member Role: Primary Care Nurse Name: Farideh Cat LPN Position: [facility] RN Member Role: Primary Care Nurse Name: Janis Morris RN Position: [facility] Recreation Programmer Member Role: Primary Care Nurse Name: Darrian Chang RN Position: [facility] Recreation Programmer Member Role: Primary Care Nurse Name: Josef Woods RN Position: [facility] RN Member Role: Primary Care Nurse Name: Siomara Raphael Position: [facility] RN Member Role: Primary Care Nurse Name: Jerry Mcneill RN Position: [facility] RN Member Role: Primary Care Nurse Care Team Related Persons Name: IVAN VILLASENOR Address: [place] [address] Name: REYNALDO KAUR Address: home [address] [place] [address] Name: EMMA SERRANO Address: home [address] [address] Name: PATRICK MATA Address: home [address] [place] [address] Name: FARIDEH POPE Address: [place] [address]
--- OUTSIDE RECORDS SUMMARY | 2022-08-31 01:18 | XMS_ITS | Continuity of Care Document ---
Author Name Unknown Organization [facility] ter Address [address] [place] [address]- Care Team Providers Care Finish Sander Name Role Phone Chaparrita Pizano DO Primary Care Physician ( [phone] Encounter [facility] Date(s): 08/19/19 - 08/20/[address] [address]- [facility] Discharge Disposition: A-D/C Home Attending Physician: Chrissy Yung MD Admitting Physician: Yordan Sandra MD Referring Physician: Not on Staff, Referring [...] 11:42:54 EDT, Aerosol, Route to Pharmacy Electronically, [id number], [facility]/pharmacy #[id number], Compound Start Date: [...] capsule, 0 Refills, Maintenance, 05/02/19 10:52:00 EDT, [facility]/pharmacy #[id number], 155.9, cm, 04/26/19 [...] 05/05/18 9:38:51 EDT, Route to Pharmacy Electronically, [id number]... Start Date: 05/05/18 Status: Ordered Insulin Glargine Inj 0.6 mL = 60 units, Subcutaneous Injection, Daily at bedtime, 0 Refills, Maintenance, 08/20/19 18:48:00 EDT, Injection Start Date: 08/20/19 Status: Ordered LORazepam 0.5 mg oral tablet See Instructions, Take 1 tablet by mouth 1 hour prior to biopsy appointment, may repeat x1 if needed, # 2 tablet, 0 Refills, Maintenance, 04/27/19 16:33:00 EDT, [facility]/pharmacy #[id number], 155.9, cm, 04/26/19 [...] 08/09/19 13:00:00 EDT, Route to Pharmacy Electronically, [facility]/pharmacy #[id number], Partial fillupon patient [...] 08/30/17 8:21:42 EDT, Route to Pharmacy Electronically, [id number], [facility]/pharmacy #[id number] Start Date: 08/30/17 [...] 06/21/18 11:05:15 EDT, Route to Pharmacy Electronically, [id number], [facility] [facility] Start Date: 06/21/18 Status: [...] WITH PRO LONGED DEPRESSIVE REACTION(Confirmed) 02/03/07 Active [facility] Emeral d Team Senior [...] Exam Date Time Procedure Performing Provider Status 08/19/19 12:55 PM Chest 2 Views Frontal and Lat Sapphire Clancy; Auth (Verified) Notes: (Chest 2 Views Frontal and Lat) Reason For Exam: Shortness of Breath RESULT: Chest 2 Views Frontal and Lat PA and lateral chest dated August 19, 2019. Comparison films are from December 30, 2018. HISTORY: Shortness of breath. FINDINGS: The cardiac silhouette is within normal limits for size. Hilar and mediastinal structuresare unremarkable. A CT Port-A-Cath is present on the right. Using a jugular approach, the tip of the catheter overlies right atrium. No pneumothorax is identified. No airspace infiltrate or pleural effusion is present. Degenerative changes are noted in the spine. IMPRESSION: No evidence of acute pulmonary disease. No significant interval change. Examination 85907. Thank you for allowing me to participate in the care of this patient. WSN: [id number] Ordering Physician: Kris Faye Dictated By: Aguilar Live MD Dictated Date/Time: 08/19/19 1:04 pm Reviewed By: Aguilar Live MD Signed By: Aguilar Live MD Signed Date/Time: 08/19/19 1:04 pm Transcribed By: DEIDRE Transcribed Date/Time: 08/19/19 1:04 pm * Exam Date Time Procedure Performing Provider Status 08/19/19 12:55 PM Knee 1 or 2 Views Left Lorraine Clancy ca; Auth (Verified) Notes: (Knee 1 or 2 Views Left) Reason For Exam: Pain RESULT: Knee 1 or 2 Views Left Left knee 2 views dated August 19, 2019. Comparison films are from August 08, 2018. HISTORY: Pain. FINDINGS: Examination shows no evidence of fracture or dislocation. There is loss of joint space medially with osteophyte formation. No joint effusion is demonstrated. IMPRESSION: Interval progression of degenerative changes most prominent in the medial joint compartment. No evidence of fracture or dislocation. Examination 79715. Thank you for allowing me to participate in the care of this patient. WSN: [id number] Ordering Physician: Kris Faye Dictated By: Aguilar Live MD Dictated Date/Time: 08/19/19 1:03 pm Reviewed By: Aguilar Live MD Signed By: Aguilar Live MD Signed Date/Time: 08/19/19 1:03 pm Transcribed By: DEIDRE Transcribed Date/Time: 08/19/19 1:02 pm Vital Signs Most recent to oldest [Reference Range]: 1 2 3 Height 155 cm (08/20/19 4:31 PM) 155 cm (08/20/19 11:03 AM) 155 cm (08/20/19 8:08 AM) Weight 130.5 kg (08/19/19 8:09 PM) 130.5 kg (08/19/19 8:00 PM) Oxygen Saturation [94-100 %] 100 % (08/20/19 4:31 PM) 96 % (08/20/19 11:03 AM) 100 % (08/20/19 8:08 AM) Pulse Rate [55-90 bpm] 79 bpm (08/20/19 4:31 PM) 64 bpm (08/20/19 11:03 AM) 71 bpm (08/20/19 8:08 AM) Body Mass Index [18.5-24.99] 54.32 *>HHI* (08/19/19 8:00 PM) Blood Pressure [90-138/55-84 mm Hg] 133/84mm Hg (08/20/19 4:31 PM) 117/80mm Hg (08/20/19 11:03 AM) 115/78mm Hg (08/20/19 9:36 AM) Respiratory Rate [16-30 br/min] 16 br/min (08/20/19 5:07 PM) 18 br/min (08/20/19 4:31 PM) 18 br/min (08/20/19 4:07 PM) Temperature [96.8-100.4 DegF] 98.3 DegF (08/20/19 4:31 PM) 98.1 DegF (08/20/19 11:03 AM) 98.3 DegF (08/20/19 8:08 AM) Mode of Delivery (Oxygen) Room air (08/20/19 4:31 PM) Room air (08/20/19 11:03 AM) Room air (08/20/19 8:08 AM) Blood pressure sites Arm, left (08/20/19 4:31 PM) Arm, left (08/20/19 11:03 AM) Arm, right (08/20/19 8:08 AM) Temperature Route Oral (08/20/19 4:31 PM) Oral (08/20/19 11:03 AM) Oral (08/20/19 8:08 AM) Dry Weight 130.5 kg (08/19/19 8:00 PM) Weight Obtained Via Bed scale (08/19/19 8:09 PM) Social History Social History Type Response Smoking Status Former smoker; Other : quit 04/2015; entered on: 01/30/16 Sex Female
--- OUTSIDE RECORDS SUMMARY | 2022-08-31 01:18 | XMS_ITS | Continuity of Care Document ---
Author Name Unknown Organization [facility] Address [address] [place] [address] [address] [place] [address]- Care Team Providers Care Social Service Technician Name Role Phone Chaparrita Pizano DO Primary Care Physician ( [phone] Encounter [facility] Date(s): 10/06/21 - 11/05/21 [facility] [address] [place] [address]- Allergies, Adverse Reactions, Alerts Substance Reaction Severity [...] to receive vaccine 2Admin Note: manufactured by [employer] Medications albuterol 0.042% inhalation solution 3 [...] 09/08/21 13:21:00 EDT, Route to Pharmacy Electronically, [facility] [...] 13:22:00 EDT, 08/31/20 13:21:00 EDT, Syrup, [facility]/pharmacy #[id number], Partial fill upon patient request if [...] 0 Refills, Maintenance, 04/02/20 9:29:00 EST, Tablet, [facility], Partial fill upon patient request [...] 06/21/18 11:05:15 EDT, Route to Pharmacy Electronically, [id number], [facility] [facility] Start Date: 06/21/18 [...] WITH PRO LONGED DEPRESSIVE REACTION(Confirmed) 02/03/07 Active [facility] Emeral d Team Senior Level Patient(Confirmed) Active [...] Team Personnel Name: Chaparrita Pizano DO Address: [address] [place] [id number]
--- OUTSIDE RECORDS SUMMARY | 2022-08-31 01:18 | XMS_ITS | Continuity of Care Document ---
Author Name Unknown Organization [facility] ter Address [address] [place] [address]- Care Team Providers Care Pressure Vessel Inspector Name Role Phone Chaparrita Pizano DO Primary Care Physician Encounter [facility] Date(s): 07/14/19 - 07/15/[address] [address]- [facility] Encounter Diagnosis Low back pain(Final) - 07/14/19 Discharge Disposition: A-D/C Home Attending Physician: Torres Brito MD Admitting Physician: Torres Brito MD Referring Physician: Not on Staff, Referring [...] 11:42:54 EDT, Aerosol, Route to Pharmacy Electronically, [id number], [facility]/pharmacy #[id number], Compound Start Date: 06/10/17 Status: Ordered aluminum hydroxide 320 mg/5 ml oral suspension 10 mL = 640 mg, By Mouth, 3 times a day after meals and bedtime, PRN Pain , Mild, # 360 mL, 0 Refills, Maintenance, 06/18/19 12:17:00 EDT, [facility]/pharmacy #[id number], 155, cm, 05/24/19 7:49:00 EDT, Height, 131.5, kg, 04/26/19 9:14:00 EDT, Dry Weight Start Date: 06/18/19 Status: Ordered Aygestin 5 mg oral tablet [...] 0 Refills, Maintenance, 05/02/19 10:52:00 EDT, [facility]/pharmacy #[id number], 155.9, cm, 04/26/19 9:14:00 EDT, [...] 05/05/18 9:38:51 EDT, Route to Pharmacy Electronically, [id number]... Start Date: 05/05/18 Status: Ordered Lantus 100 u/ml subcutaneous solution = 55 units, Subcutaneous Infusion, Daily at bedtime, 0 Refills, Maintenance, 10/04/18 9:32:23 EDT Start Date: 10/04/18 Status: Ordered LORazepam 0.5 mg oral tablet See Instructions, Take 1 tablet by mouth 1 hour prior to biopsy appointment, may repeat x1 if needed, # 2 tablet, 0 Refills, Maintenance, 04/27/19 16:33:00 EDT, [facility]/pharmacy #[id number], 155.9, cm, 04/26/19 9:14:00 EDT, [...] Refills, Maintenance, 01/31/19 15:17:00 EST, [facility]/pharmacy #[id number], 155.9, cm, 01/29/19 15:24:00 EST, Height, 130.7, kg, 01/29/19 15:24:00 EST, Dry Weight Start Date: 01/31/19 Status: Ordered MethylPREDNISolone Dose Pack 4 mg oral tablet 1 pack/packet, By Mouth, Daily, as directed on package labeling, # 21 tablet, 0 Refills, Maintenance, 07/14/19 6:52:00 EDT, Tablet Start Date: 07/14/19 Stop Date: 07/20/19 Status: Ordered NovoLOG FlexPen 100 units/mL subcutaneous [...] 0, Tot. Refills 0, Maintenance,Pain , Severe, 06/04/19 5:24:00 EDT, Route to Pharmacy Electronically, [facility]/pharmacy #[id number], Partial fill upon patient request, 155, cm, 05/24/19 7:49:00... Start Date: 06/04/19 Status: Ordered potassium chloride 8 mEq (600 [...] 08/30/17 8:21:42 EDT, Route to Pharmacy Electronically, [id number], [facility]/pharmacy #[id number] Start Date: 08/30/17 Status: Ordered Smoothie Readi-Cat 2 oral suspension See Instructions, please follow the instructions provided to you, # 2 each, 0 Refills, Maintenance,04/27/19 16:40:00 EDT, [facility]/pharmacy #[id number], please follow the instructions provided to you, 155.9, cm, 04/26/19 9:14:00 EDT, Height, 131.5, kg, 04/26/19... Start Date: 04/27/19 Status: Ordered tiZANidine 4 mg oral tablet 8 mg, 2, tablet, By Mouth, Every 8 hours, # 180 tablet, Refills 0, Maintenance, 07/14/19 6:52:00 EDT Start Date: 07/14/19 Status: Ordered Tums 500 mg oral tablet, chewable 500 mg, 1, tablet, Chew, Every 4 hours, PRN, # 180 tablet, Refills 0, Tot. Refills 0, Maintenance, Dyspepsia, 06/21/18 11:05:15 EDT, Route to Pharmacy Electronically, [id number], [facility] 3 Start Date: 06/21/18 Status: Ordered [...] WITH PRO LONGED DEPRESSIVE REACTION(Confirmed) 02/03/07 Active [facility] Emeral d Team Senior Level [...] Range]: 1 2 3 Height 155 cm (07/15/19 1:08 AM) 155 cm (07/14/19 10:34 PM) 155 cm (07/14/19 7:53 PM) Weight 135.5 kg (07/15/19 1:08 AM) 135.5 kg (07/14/19 10:34 PM) 135.5 kg (07/14/19 7:53 PM) Oxygen Saturation [94-100 %] 98 % (07/15/19 1:08 AM) 100 % (07/14/19 10:34 PM) 98 % (07/14/19 7:53 PM) Pulse Rate [55-90 bpm] 83 bpm (07/15/19 1:08 AM) 81 bpm (07/14/19 10:34 PM) 70 bpm (07/14/19 7:53 PM) Body Mass Index [18.5-24.99] 56.4 *>HHI* (07/15/19 1:08 AM) 56.4 *>HHI* (07/14/19 10:34 PM) 56.4 *>HHI* (07/14/19 7:53 PM) Blood Pressure [90-138/55-84 mm Hg] 150/95mm Hg *H* (07/15/19 1:08 AM) 136/91mm Hg (07/14/19 10:34 PM) 138/84mm Hg (07/14/19 7:53 PM) Respiratory Rate [16-30 br/min] 16 br/min (07/15/19 1:08 AM) 16 br/min (07/14/19 10:34 PM) 16 br/min (07/14/19 7:53 PM) Temperature [96.8-100.4 DegF] 98.2 DegF (07/15/19 1:08 AM) 98.6 DegF (07/14/19 10:34 PM) 98.8 DegF (07/14/19 7:53 PM) Mode of Delivery (Oxygen) Room air (07/15/19 1:08 AM) Room air (07/14/19 10:34 PM) Room air (07/14/19 7:53 PM) Blood pressure sites Arm, right (07/15/19 1:08 AM) Arm, right (07/14/19 10:34 PM) Arm, right (07/14/19 7:53 PM) Temperature Route Oral (07/15/19 1:08 AM) Oral (07/14/19 10:34 PM) Oral (07/14/19 7:53 PM) Dry Weight 135.5 kg (07/15/19 1:08 AM) 135.5 kg (07/14/19 10:34 PM) 135.5 kg (07/14/19 7:53 PM) Weight Obtained Via Patient/family state d (07/14/19 4:30 PM) Dry Weight Obtained Via Patient/family s tated (07/14/19 4:30 PM) Social History Social History Type Response Smoking Status Former smoker; Other : quit 04/2015; entered on: 01/30/16 Sex Female
--- OUTSIDE RECORDS SUMMARY | 2022-08-31 01:18 | XMS_ITS | Continuity of Care Document ---
Author Name Unknown Organization [facility] ter Address [address] [place] [address]- Care Team Providers Care General Assembler Installer Name Role Phone Jerica DOChaparrita Primary Care Physician ( [phone] Encounter [facility] Date(s): 12/28/21 - 04/02/[address] [address]- Attending Physician: Donald Murphy MD Admitting Physician: [...] to receive vaccine 2Admin Note: manufactured by [employer] Medications albuterol 0.042% inhalation solution 3 [...] 03/12/22 12:08:00 EST, Route to Pharmacy Electronically, [facility] [facility], Partial fill [...] 03/09/23 23:00:00 EST, 03/12/22 12:09:00 EST, Syrup, [facility] [facility], Partial fill [...] 03/09/23 23:00:00 EST, 03/12/22 12:10:00 EST, Patch, [facility] [facility], Partial fill [...] tablet, 0 Refills, Maintenance, 04/02/20 9:29:00 EST, [facility], [...] 03/12/22 12:06:00 EST, Route to Pharmacy Electronically, [facility] 3, Partial fill uponpatient request [...] 06/21/18 11:05:15 EDT, Route to Pharmacy Electronically, [id number], [facility] 3 [...] WITH PROLONGED DEPRESSIVE REACTION Confirmed 02/03/07 Active [place] [facility] [place] Team Senior Level Patient Confirmed Active [facility] [...] Team Personnel Name: Lola Belcher RN Position: [facility] RN Member Role: Primary Care Nurse Name: Jose Enrique Saul RN Position: [facility] RN Member Role: Primary Care Nurse Name: Symone Mciknnon RN Position: [facility] RN Member Role: Primary Care Nurse Name: Carolyn Pelaez RN Position: [facility] RN Member Role: Primary Care Nurse Name: Deanna Garcia RN Position: [facility] RN Member Role: Primary Care Nurse Name: Fanny Mixon RN Position: [facility] ED RN W/OE and Tasks Member Role: Primary Care Nurse Name: María Ashford RN Position: [facility] AMB Nurse Member Role: Primary Care Nurse Name: Chanelle Hernandez RN Position: [facility] AMB Nurse Member Role: Primary Care Nurse Name: Estelle García RN Position: [facility] RN Member Role: Primary Care Nurse Name: Deanne Rangel RN Position: [facility] RN Member Role: Primary Care Nurse Name: Carine Jimenez RN Position: [facility] SN RN Member Role: Primary Care Nurse Name: Jenelle Campo RN Position: [facility] RN Member Role: Primary Care Nurse Name: Keyla Godwin RN Position: [facility] RN Member Role: Primary Care Nurse Name: Yeimi Devine RN Position: [facility] RN Member Role: Primary Care Nurse Name: Mary Yan RN Position: [facility] RN Member Role: Primary Care Nurse Name: Iliana Pop RN Position: [facility] RN Member Role: Primary Care Nurse Name: Alcides Dueñas RN Position: [facility] RN Member Role: Primary Care Nurse Name: Lisa Beatty Position: [facility] Outreach Member Role: Lifetime Consulting Physician Name: Armida Beatty RN Position: [facility] RN Member Role: Primary Care Nurse Name: Deonna Beatty RN Position: [facility] RN Member Role: Primary Care Nurse Name: Roque Villasenor MD Position: [facility] Renal MD Member Role: Lifetime Consulting Physician Address: Address: [address] [place] [address], [address] [facility] [place] [address]- Name: Lashon Lovell RN Position: [facility] SN RN Member Role: Primary Care Nurse Name: Kristi Giraldo RN Position: [facility] RN Supv Member Role: Primary Care Nurse Name: Jerrod Casarez RN Position: [facility] RN Member Role: Primary Care Nurse Name: Shane Riley RN Position: [facility] RN Member Role: Primary Care Nurse Name: Isac Plascencia RN Position: [facility] RN Member Role: Primary Care Nurse Name: Rosalva Martin RN Position: [facility] RN Member Role: Primary Care Nurse Name: Sheela Matt RN Position: [facility] RN Member Role: Primary Care Nurse Name: Armida Ochoa RN Position: [facility] RN Member Role: Primary Care Nurse Name: Feliap Diehl RN Position: [facility] HBO Wound Member Role: Primary Care Nurse Name: Evelin Powell RN Position: [facility] AMB Nurse Member Role: Primary Care Nurse Name: Deonna Pendleton RN Position: [facility] RN Member Role: Primary Care Nurse Name: Pili Kaba RN Position: [facility] RN Member Role: Primary Care Nurse Name: Alejandro Yanes RN Position: [facility] RN Member Role: Primary Care Nurse Name: Stacey Díaz RN Position: [facility] SN RN Member Role: Primary Care Nurse Name: Jac Reese RN Position: [facility] RN Member Role: Primary Care Nurse Name: Celestine Schwartz RN Position: [facility] RN Member Role: Primary Care Nurse Name: Neeta Carpenter RN Position: [facility] RN Member Role: Primary Care Nurse Name: Susie Estrada RN Position: [facility] RN Member Role: Primary Care Nurse Name: Inna Cantor RN Position: [facility] RN Member Role: Primary Care Nurse Name: Chaparrita Pizano DO Position: [facility] Physician (General Medicine) Member Role: PCP Address: Address: [address] [place] [address] [place] [address]- [place] Name: Ning Rolon RN Position: [facility] RN Member Role: Primary Care Nurse Name: Rubi Carrasco RN Position: [facility] SN RN Member Role: Primary Care Nurse Name: Lauryn Holden RN Position: [facility] RN Member Role: Primary Care Nurse Name: Shen Silvestre RN Position: [facility] RN Member Role: Primary Care Nurse Name: Jones Cervantes RN Position: [facility] RN Member Role: Primary Care Nurse Name: Olivia Caputo RN Position: [facility] RN Member Role: Primary Care Nurse Name: Brooklyn Jim RN Position: [facility] RN Member Role: Primary Care Nurse Name: Kimberly Santoro RN Position: [facility] RN Member Role: Primary Care Nurse Name: Haley Diamond RN Position: [facility] RN Member Role: Primary Care Nurse Name: Ashley Meléndez NP Position: [facility] PCO Associate Professional Member Role: Primary Care Nurse Address: Address: [address] [place] [address]- Name: Siomara Patricia RN Position: [facility] PCO RN Member Role: Primary Care Nurse Name: Neeta Painter RN Position: [facility] RN Member Role: Primary Care Nurse Name: Edith Drummond RN Position: [facility] RN Member Role: Primary Care Nurse Name: Bailey Espinal RN Position: [facility] AMB Nurse Member Role: Primary Care Nurse Name: Brooklyn Ramsey RN Position: [facility] RN Member Role: Primary Care Nurse Name: Keyla Bright RN Position: [facility] RN Member Role: Primary Care Nurse Name: Beverley Tatum RN Position: [facility] RN Member Role: Primary Care Nurse Name: Mainor Devries RN Position: [facility] RN Member Role: Primary Care Nurse Name: Yarely Richards RN Position: [facility] Hospital Curam Developer Member Role: Primary Care Nurse Name: Oralia Massey RN Position: [facility] RN Member Role: Primary Care Nurse Name: Cassie Villanueva RN Position: [facility] RN Member Role: Primary Care Nurse Name: Taiwo Mcgregor RN Position: [facility] RN Member Role: Primary Care Nurse Name: Cally Funes RN Position: [facility] RN Member Role: Primary Care Nurse Name: Marina Osorio Position: [facility] RN Member Role: Primary Care Nurse Name: Lisa Blanton RN Position: [facility] Curam Developer Member Role: Primary Care Nurse Name: Danica Stuart RN Position: [facility] AMB Nurse Member Role: Primary Care Nurse Name: Virginia Bacon RN Position: [facility] RN Member Role: Primary Care Nurse Name: Shruthi Ray RN Position: [facility] Onco RN Member Role: Primary Care Nurse Name: Abbe Choe RN Position: [facility] RN Supv Member Role: Primary Care Nurse Name: Farideh Cat LPN Position: [facility] RN Member Role: Primary Care Nurse Name: Janis Morris RN Position: [facility] Curam Developer Member Role: Primary Care Nurse Name: Darrian Chang RN Position: [facility] Curam Developer Member Role: Primary Care Nurse Name: Josef Woods RN Position: [facility] RN Member Role: Primary Care Nurse Name: Siomara Raphael Position: [facility] RN Member Role: Primary Care Nurse Name: Jerry Mcneill RN Position: [facility] RN Member Role: Primary Care Nurse Care Team Related Persons Name: IVAN VILLASENOR Address: [place] [address] Name: REYNALDO KAUR Address: home [address] [place] [address] Name: EMMA SERRANO Address: home [address] [address] Name: PATRICK MATA Address: home [address] [place] [address] Name: FARIDEH POPE Address: [place] [address]
--- OUTSIDE RECORDS SUMMARY | 2022-08-31 01:18 | XMS_ITS | Continuity of Care Document ---
Author Name Unknown Organization [facility]LLUSTRATOR Oncolog y Address [address] [place] [address]- Care Team Providers Care Pencil Sorter Name Role Phone Chaparrita Pizano DO Primary Care Physician En[place] [facility] [place](s): 04/20/21 - 05/20/21 [facility]LLU[facility] Oncology [address] [place] [id number] Allergies, Adverse Reactions, Alerts Substance [...] vomitting Active Compazine shortness of breath Active Reglan [...] to receive vaccine 2Admin Note: manufactured by [employer] Medications albuterol 0.042% inhalation solution 3 mL [...] 08/31/21 13:21:00 EDT, 08/31/20 13:21:00 EDT, Tablet, [facility]/pharmacy #[id number], Partial fill upon patient request... Start Date: [...] 0 Refills, Maintenance, 04/02/20 9:29:00 EST, Tablet, [facility], Partial fill upon patient request [...] 08/30/17 8:21:42 EDT, Route to Pharmacy Electronically, [id number], [facility]/pharmacy #[id number] Start Date: 08/30/17 Status: Ordered Tums 500 mg oral tablet, chewable 500 mg, 1, tablet, Chew, Every 4 hours, PRN, # 180 tablet, Refills 0, Tot. Refills 0, Maintenance, Dyspepsia, 06/21/18 11:05:15 EDT, Route to Pharmacy Electronically, [id number], [facility] 3 Start Date: 06/21/18 Status: Ordered Tylenol 325 mg oral capsule 2 capsule = 650 mg, By Mouth, Every 4 hours, PRN as needed for pain, # 60 capsule, 0 Refills, Acute06/14/21 0:00:00 EDT, 04/23/21 16:19:00 EST, Capsule, [facility]/pharmacy #[id number], Partial fill upon patientrequest if [...] WITH PRO LONGED DEPRESSIVE REACTION(Confirmed) 02/03/07 Active [facility] Emeral d Team Senior Level [...]
--- OUTSIDE RECORDS SUMMARY | 2022-08-31 01:18 | XMS_ITS | Continuity of Care Document ---
Author Name Unknown Organization [facility] ter Address [address] [place] [phone]- Care Team Providers Care Separator Operator Name Role Phone Chaparrita Pizano DO Primary Care Physician Encounter [facility] [place] Date(s): 11/08/18 - 06/09/[address] [address]- [facility] Attending Physician: Chaparrita Pizano DO Admitting Physician: Chaparrita Pizano DO Referring Physician: Chaparrita Pizano DO Allergies, Adverse Reactions, Alerts Substance Reaction Severity Status doxycycline mouth swelling Active ceftriaxone hives Active famotidine vomiting Active fentanyl 1 Fentanyl 50microgram s/hour patch difficulty breathing Persistent Severe Active Pepcid vomitng Active Levaquin tingling in mouth, rash Acti ve Compazine shortness of breath Active Tylenol hives Active Reglan severe restless legs Active Contrast Dye hives itchy throat itchy Persistent Mild Active Seafood Anaphylactic shock d ue to adverse food reaction Severe Active penicillin throat swelling Rash Persistent Severe Active morphine 2, 3, 4 hives Active iodine topical swelling itching Active Zofran 5 can only be given w/ benadryl hives Active Latex vag rash Active Nexium diarrhea, vomitting Active Lyrica Angioedema Active Nicotine Patch ana cardia Active 1Tolerates Oxycontin (oxycodone extended release) as [...] 11:42:54 EDT, Aerosol, Route to Pharmacy Electronically, [id number], [facility]/pharmacy #[id number], Compound Start Date: 06/10/17 [...] capsule, 0 Refills, Maintenance, 05/02/19 10:52:00 EDT, [facility]/pharmacy #[id number], 155.9, cm, 04/26/19 9:14:00 [...] 05/05/18 9:38:51 EDT, Route to Pharmacy Electronically, [id number]... Start Date: 05/05/18 Status: Ordered Lantus 100 u/ml subcutaneous solution = 55 units, Subcutaneous Infusion, Daily at bedtime, 0 Refills, Maintenance, 10/04/18 9:32:23 EDT Start Date: 10/04/18 Status: Ordered LORazepam 0.5 mg oral tablet See Instructions, Take 1 tablet by mouth 1 hour prior to biopsy appointment, may repeat x1 if needed, # 2 tablet, 0 Refills, Maintenance, 04/27/19 16:33:00 EDT, [facility]/pharmacy #[id number], 155.9, cm, 04/26/19 9:14:00 [...] 06/04/19 5:24:00 EDT, Route to Pharmacy Electronically, [facility]/pharmacy #[id number], Partial fill upon patient request, 155, cm, [...] 08/30/17 8:21:42 EDT, Route to Pharmacy Electronically, [id number], [facility]/pharmacy #[id number] Start Date: 08/30/17 Status: Ordered Altafie Readi-Cat 2 oral suspension See Instructions, please follow the instructions provided to you, # 2 each, 0 Refills, Maintenance,04/27/19 16:40:00 EDT, [facility]/pharmacy #[id number], please follow the instructions provided to you, 155.9, cm, 04/26/19 9:14:00 EDT, Height, 131.5, kg, 04/26/19... Start Date: 04/27/19 Status: Ordered Tums 500 mg oral tablet, chewable 500 mg, 1, tablet, Chew, Every 4 hours, PRN, # 180 tablet, Refills 0, Tot. Refills 0, Maintenance, Dyspepsia, 06/21/18 11:05:15 EDT, Route to Pharmacy Electronically, [id number], [facility] Start Date: 06/21/18 [...]
--- OUTSIDE RECORDS SUMMARY | 2022-08-31 01:18 | XMS_ITS | Continuity of Care Document ---
Author Name Unknown Organization [facility]MENT POSTER Oncolog y Address [address] [place] [address]- Care Team Providers Care Router Operator Radial Name Role Phone Chaparrita Pizano DO Primary Care Physician [place] [facility] [place] 02/28[place]20 - 03/29/20 [facility] PAYMENT POSTER Oncology [address] [place] [id number] Allergies, Adverse Reactions, Alerts Substance [...] 1 02/02/07 Given 1Admin Note: manufactured by [employer] Medications albuterol CFC free 90 mcg/inh inhalation [...] 05/05/18 9:38:51 EDT, Route to Pharmacy Electronically, [id number]... Start Date: 05/05/18 Status: Ordered Insulin Glargine [...] 03/04/20 8:13:00 EST, Route to Pharmacy Electronically, [facility]/pharmacy #[id number], Partial fill upon patient [...] 08/30/17 8:21:42 EDT, Route to Pharmacy Electronically, [id number], [facility]/pharmacy #[id number] Start Date: 08/30/17 Status: [...] 06/21/18 11:05:15 EDT, Route to Pharmacy Electronically, [id number], [facility] 3 Start Date: 06/21/18 Status: Ordered [...] WITH PRO LONGED DEPRESSIVE REACTION(Confirmed) 02/03/07 Active [facility] Emeral d Team Senior Level [...]
--- OUTSIDE RECORDS SUMMARY | 2022-08-31 01:18 | XMS_ITS | Continuity of Care Document ---
Author Name Unknown Organization [facility] Oncolog y Address [address] [place] [address]- Care Team Providers Care Repairer Controller Tester Name Role Phone Chaparrita Pizano DO Primary Care Physician Encounter [facility] [place] Date(s): 10/02/19 - 11/01/19 [facility] Oncology [address] [place] [address]- [facility] Allergies, Adverse Reactions, Alerts Substance Reaction Severity Status doxycycline mouth swelling Active ceftriaxone hives Active penicillin throat swelling Rash Persistent Severe Active fentanyl 1 Fentanyl 50microgram s/hour patch difficulty breathing Persistent Severe Active iodine topical swelling itching Active Zofran 2 can only be given w/ benadryl hives Active Pepcid vomitng Active Levaquin tingling in mouth, rash Acti ve Compazine shortness of breath Active Tylenol hives Active Reglan severe restless legs Active Contrast Dye hives itchy throat itchy Persistent Mild Active Seafood Anaphylactic shock d ue to adverse food reaction Severe Active Nexium diarrhea, vomitting Active famotidine vomiting Active morphine 3, 4, 5 hives Active Latex vag rash Active Nicotine Patch ana cardia Active Lyrica Angioedema Active 1Tolerates Oxycontin (oxycodone extended release) as part of home regimen as shared during June 2014 admission. 2patient tolerated zofran on 05/25/2013 3per , tolerates with diphenhydramine 4Tolerates hydromorphone 5Tolerates Oxycontin (oxycodone extended release) as part of [...] 11:42:54 EDT, Aerosol, Route to Pharmacy Electronically, [id number], [facility]/pharmacy #[id number], Compound Start Date: [...] capsule, 0 Refills, Maintenance, 05/02/19 10:52:00 EDT, [facility]/pharmacy #[id number], 155.9, cm, 04/26/19 [...] 05/05/18 9:38:51 EDT, Route to Pharmacy Electronically, [id number]... Start Date: 05/05/18 Status: Ordered Insulin Glargine Inj 0.6 mL = 60 units, Subcutaneous Injection, Daily at bedtime, 0 Refills, Maintenance, 08/20/19 18:48:00 EDT, Injection Start Date: 08/20/19 Status: Ordered LORazepam 0.5 mg oral tablet See Instructions, Take 1 tablet by mouth 1 hour prior to biopsy appointment, may repeat x1 if needed, # 2 tablet, 0 Refills, Maintenance, 04/27/19 16:33:00 EDT, [facility]/pharmacy #[id number], 155.9, cm, 04/26/19 [...] 08/09/19 13:00:00 EDT, Route to Pharmacy Electronically, [facility]/pharmacy #[id number], Partial fillupon patient [...] 08/30/17 8:21:42 EDT, Route to Pharmacy Electronically, [id number], [facility]/pharmacy #[id number] Start Date: [...] 06/21/18 11:05:15 EDT, Route to Pharmacy Electronically, [id number], [facility] 3 Start Date: [...] WITH PRO LONGED DEPRESSIVE REACTION(Confirmed) 02/03/07 Active [facility] Emeral d Team Senior Level [...]
--- OUTSIDE RECORDS SUMMARY | 2022-08-31 01:18 | XMS_ITS | Continuity of Care Document ---
Author Name Unknown Organization [facility] ter Address [address] [place] [address]- Care Team Providers Care Progressive Care Nurse Name Role Phone Chaparrita Pizano DO Primary Care Physician [place] [facility] [place](s): 06/19/21 - 08/28/[address] [address]- Attending Physician: Delfina Fitch DO Admitting Physician: [...] to receive vaccine 2Admin Note: manufactured by [employer] Medications albuterol 0.042% inhalation solution 3 [...] EDT, Tablet, [facility]/pharmacy #[id number], Partial fill upon patient request... Start Date: [...] 04/02/20 9:29:00 EST, Tablet, [facility], Partial fill upon patient [...] Soft Stop, 06/26/21 7:59:00 EDT, Tablet, [facility]/pharmacy [...] 08/30/17 8:21:42 EDT, Route to Pharmacy Electronically, [id number], [facility]/pharmacy #[id number] Start Date: 08/30/17 Status: Ordered Tums 500 mg oral tablet, chewable 500 mg, 1, tablet, Chew, Every 4 hours, PRN, # 180 tablet, Refills 0, Tot. Refills 0, Maintenance, Dyspepsia, 06/21/18 11:05:15 EDT, Route to Pharmacy Electronically, [id number], [facility] Start Date: [...]
--- OUTSIDE RECORDS SUMMARY | 2022-08-31 01:18 | XMS_ITS | Continuity of Care Document ---
Author Name Unknown Organization [facility] ter Address [address] [place] [phone]- Care Team Providers Care Environmental Services Specialist Name Role Phone Jerica Chaparrita DO Primary Care Physician Encounter [facility] [place] Date(s): 01/09/20 - 04/28/[address] [address] Attending Physician: Isaac Lobo MD Admitting Physician: [...] 1 02/02/07 Given 1Admin Note: manufactured by [employer] Medications albuterol 0.042% inhalation solution 3 [...] Acute05/02/20 9:28:00 EDT, 04/02/20 9:28:00 EST, Tablet, [facility] 3, Partial fill upon patient [...] 05/07/20 0:00:00 EDT, 04/09/20 6:53:00 EST, Liquid, [facility], Partial fill upon [...] 04/03/20 13:23:00 EST, Solution, [facility]/pharmacy #[id number], Partial fill [...] Refills, Maintenance, 04/15/20 11:12:00 EST, Solution, [facility]/pharmacy #[id number], Partial fill upon patient request if the prescriptionis for a schedule II opioid drug., 154, cm, ... Start Date: 04/15/20 Status: Ordered naloxone 4 mg/0.1 mL nasal spray = 4 mg, Nares, Both, Once, # 2 each, 0 Refills, Soft Stop, 04/09/20 13:16:00 EST, [facility], Partial fill upon [...] 0 Refills, Maintenance, 04/02/20 9:29:00 EST, Tablet, [facility], Partial fill upon patient request if the prescription is for a schedule II opioid drug., 154.94, cm, 0... Start Date: 04/02/20 Status: Ordered oxyCODONE 10 mg oral tablet 2 tablet = 20 mg, By Mouth, Every 6 hours, PRN Pain , Severe, take 1 tab for less severe pain, # 56tablet, 0 Refills, Maintenance, 04/22/20 14:36:00 EST, Tablet, [facility]/pharmacy #[id number], Partial fill upon patient request if the prescription is for a sched... Start Date: 04/22/20 Status: Ordered OxyCONTIN 10 mg oral tablet, extended release 10 mg, 1, tablet, By Mouth, Every 12 hours, # 60 tablet, Refills 0, Tot. Refills 0, Maintenance, 04/02/20 9:32:00 EST, Route to Pharmacy Electronically, [facility], Partial fill upon [...] Acute 04/30/20 0:00:00 EDT, 04/02/20 9:33:00 EST, [facility] 3, Partial fill upon patient [...] 08/30/17 8:21:42 EDT, Route to Pharmacy Electronically, [id number], [facility]/pharmacy #[id number] Start Date: 08/30/17 Status: Ordered Tums 500 mg oral tablet, chewable 500 mg, 1, tablet, Chew, Every 4 hours, PRN, # 180 tablet, Refills 0, Tot. Refills 0, Maintenance, Dyspepsia, 06/21/18 11:05:15 EDT, Route to Pharmacy Electronically, [id number], [facility] 3 Start Date: 06/21/18 Status: Ordered [...] WITH PRO LONGED DEPRESSIVE REACTION(Confirmed) 02/03/07 Active [facility] Emeral d [...]
--- OUTSIDE RECORDS SUMMARY | 2022-08-31 01:18 | XMS_ITS | Continuity of Care Document ---
Author Name Unknown Organization [facility] ANALYST Oncolog y Address [address] [place] [address]- Care Team Providers Care Monologist Name Role Phone Jerica Chaparrita DO Primary Care Physician Encounter [facility] [place] Date(s): 05/20/20 - 06/19/20 [facility]LOBAL COMPENSATION ANALYST Oncology [address] [place], [place] [address] Allergies, Adverse Reactions, Alerts Substance [...] 0 Refills, Maintenance, 04/03/20 13:23:00 EST, Solution, [facility]/pharmacy #[id number], Partial fill upon patient request if the [...] 0 Refills, Soft Stop, 04/09/20 13:16:00 EST, [facility], Partial [...] 0 Refills, Maintenance, 04/02/20 9:29:00 EST, Tablet, [facility], Partial fill upon patient request if the prescription is for a schedule II opioid drug., 154.94, cm, 0... Start Date: 04/02/20 Status: Ordered oxyCODONE 10 mg oral tablet 1 tablet = 10 mg, By Mouth, Every 4 hours, PRN Pain , Severe, # 42 tablet, 0 Refills, Maintenance, 06/12/20 16:41:00 EDT, Tablet, [facility]/pharmacy #[id number], Partial fill upon patient request if the [...] 08/30/17 8:21:42 EDT, Route to Pharmacy Electronically, [id number], [facility]/pharmacy #[id number] Start Date: 08/30/17 Status: Ordered Tums 500 mg oral tablet, chewable 500 mg, 1, tablet, Chew, Every 4 hours, PRN, # 180 tablet, Refills 0, Tot. Refills 0, Maintenance, Dyspepsia, 06/21/18 11:05:15 EDT, Route to Pharmacy Electronically, [id number], [facility] Start Date: 06/21/18 [...] WITH PRO LONGED DEPRESSIVE REACTION(Confirmed) 02/03/07 Active [facility] Emeral d [...]
--- OUTSIDE RECORDS SUMMARY | 2022-08-31 01:18 | XMS_ITS | Continuity of Care Document ---
Author Name Unknown Organization [facility] ter Address [address] [place] [address]- Care Team Providers Care Pathological Technician Name Role Phone Darryl Pizano DOdavidradha Gupta Primary Care Physician [place] [facility] [place] Date(s): 04/17/21 - 09/28/[address] [address]- Attending Physician: Donald Murphy MD Admitting Physician: [...] to receive vaccine 2Admin Note: manufactured by [employer] Medications albuterol 0.042% inhalation solution 3 [...] as needed for pain, 0 Refills, Maintenance, 09/28/21 10:42:00 EDT, Tablet, Partial fill upon patient request if the prescription is for a schedule II opioid drug. Start Date: 09/28/21 Status: Ordered Insulin Glargine Inj = 20 [...] 08/31/22 13:22:00 EDT, 08/31/20 13:21:00 EDT, Syrup, [facility]/pharmacy #[id number], Partial fill upon [...] 0 Refills, Maintenance, 04/02/20 9:29:00 EST, Tablet, [facility], Partial fill [...] 06/21/18 11:05:15 EDT, Route to Pharmacy Electronically, [id number], [facility] Start Date: 06/21/18 Status: [...] WITH PRO LONGED DEPRESSIVE REACTION(Confirmed) 02/03/07 Active [facility] Emeral d Team Senior Level [...]
--- OUTSIDE RECORDS SUMMARY | 2022-08-31 01:19 | XMS_ITS | Continuity of Care Document ---
Author Name Unknown Organization [facility] ter Address [address] [place] [address]- Care Team Providers Care Skate Shop Attendant Name Role Phone Darryl Pizano DOdavidradha Gupta Primary Care Physician ( [phone] Encounter [facility] Date(s): 08/20/21 - 03/08/[address] [address]- Attending Physician: Donald Murphy MD Admitting Physician: [...] to receive vaccine 2Admin Note: manufactured by [employer] Medications albuterol 0.042% inhalation solution 3 [...] 09/08/21 13:21:00 EDT, Route to Pharmacy Electronically, [facility], Partial fill upon [...] tablet, 0 Refills, Maintenance, 04/02/20 9:29:00 EST, [facility], Partial fill upon patient [...] 06/21/18 11:05:15 EDT, Route to Pharmacy Electronically, [id number], [facility] Start Date: 06/21/18 Status: [...] WITH PROLONGED DEPRESSIVE REACTION Confirmed 02/03/07 Active [facility] Team Senior Level Patient Confirmed Active ASTHMA [...] Team Personnel Name: Lola Belcher RN Position: [facility] RN Member Role: Primary Care Nurse Name: Jose Enrique Saul RN Position: [facility] RN Member Role: Primary Care Nurse Name: Symone Mckinnon RN Position: [facility] RN Member Role: Primary Care Nurse Name: Carolyn Pelaez RN Position: [facility] RN Member Role: Primary Care Nurse Name: Deanna Garcia RN Position: S RN Member Role: Primary Care Nurse Name: Fanny Mixon RN Position: [facility] ED RN W/OE and Tasks Member Role: Primary Care Nurse Name: María Ashford RN Position: [facility] AMB Nurse Member Role: Primary Care Nurse Name: Chanelle Hernandez RN Position: [facility] PCO RN Member Role: Primary Care Nurse Name: Estelle García RN Position: [facility] RN Member Role: Primary Care Nurse Name: Deanne Rangel RN Position: [facility] RN Member Role: Primary Care Nurse Name: Carine Jimenez RN Position: [facility] RN Member Role: Primary Care Nurse Name: Jenelle Campo RN Position: [facility] RN Member Role: Primary Care Nurse Name: Keyla Godwin RN Position: [facility] RN Member Role: Primary Care Nurse Name: Yeimi Devine RN Position: [facility] RN Member Role: Primary Care Nurse Name: Mary Yan RN Position: [facility] RN Member Role: Primary Care Nurse Name: Iliana Pop RN Position: [facility] RN Member Role: Primary Care Nurse Name: Alcides Dueñas RN Position: [facility] RN Member Role: Primary Care Nurse Name: Lisa Beatty Position: [facility] Outreach Member Role: Lifetime Consulting Physician Name: Armida Beatty RN Position: [facility] RN Member Role: Primary Care Nurse Name: Roque Villasenor MD Position: [facility] Renal MD Member Role: Lifetime Consulting Physician Address: Address: [address] [place] [address], [address] [facility] [address] Name: Lashon Lovell RN Position: [facility] SN RN Member Role: Primary Care Nurse Name: Kristi Giraldo RN Position: [facility] RN Supv Member Role: Primary Care Nurse Name: Jerrod Casarez RN Position: [facility] RN Member Role: Primary Care Nurse Name: Shane Riley RN Position: [facility] RN Member Role: Primary Care Nurse Name: Rosalva Martin RN Position: [facility] RN Member Role: Primary Care Nurse Name: Sheela Matt RN Position: [facility] RN Member Role: Primary Care Nurse Name: Armida Ochoa RN Position: [facility] RN Member Role: Primary Care Nurse Name: Deonna Murillo RN Position: [facility] RN Member Role: Primary Care Nurse Name: Felipa Diehl RN Position: [facility] HBO Wound Member Role: Primary Care Nurse Name: Evelin Powell RN Position: [facility] AMB Nurse Member Role: Primary Care Nurse Name: Deonna Pendleton RN Position: [facility] RN Member Role: Primary Care Nurse Name: Pili Kaba RN Position: [facility] RN Member Role: Primary Care Nurse Name: Alejandro Yanes RN Position: [facility] RN Member Role: Primary Care Nurse Name: Stacey Díaz RN Position: [facility] SN RN Member Role: Primary Care Nurse Name: Jac Reese RN Position: [facility] RN Member Role: Primary Care Nurse Name: Celestine Schwartz RN Position: [facility] RN Member Role: Primary Care Nurse Name: Neeta Carpenter RN Position: [facility] RN Member Role: Primary Care Nurse Name: Susie Estrada RN Position: [facility] RN Member Role: Primary Care Nurse Name: Inna Cantor RN Position: [facility] RN Member Role: Primary Care Nurse Name: Chaparrita Pizano DO Position: [facility] Physician (General Medicine) Member Role: PCP Address: Address: [address] [place] [address]- Name: Ning Rolon RN Position: [facility] RN Member Role: Primary Care Nurse Name: uRbi Carrasco RN Position: [facility] SN RN Member Role: Primary Care Nurse Name: Lauryn Holden RN Position: [facility] RN Member Role: Primary Care Nurse Name: Shen Silvestre RN Position: [facility] RN Member Role: Primary Care Nurse Name: Jones Cervantes RN Position: [facility] RN Member Role: Primary Care Nurse Name: Olivia Caputo RN Position: [facility] RN Member Role: Primary Care Nurse Name: Brooklyn Jim RN Position: [facility] RN Member Role: Primary Care Nurse Name: Kimberly Santoro RN Position: [facility] RN Member Role: Primary Care Nurse Name: Haley Diamond RN Position: [facility] RN Member Role: Primary Care Nurse Name: Ashley Meléndez NP Position: [facility] PCO Associate Professional Member Role: Primary Care Nurse Address: Address: [address] [place] [address]- [place] Name: Siomara Patricia RN Position: [facility] PCO RN Member Role: Primary Care Nurse Name: Neeta Painter RN Position: [facility] RN Member Role: Primary Care Nurse Name: Edith Drummond RN Position: [facility] RN Member Role: Primary Care Nurse Name: Bailey Espinal RN Position: [facility] AMB Nurse Member Role: Primary Care Nurse Name: Brooklyn Ramsey RN Position: [facility] RN Member Role: Primary Care Nurse Name: Keyla Bright RN Position: [facility] RN Member Role: Primary Care Nurse Name: Beverley Tatum RN Position: [facility] RN Member Role: Primary Care Nurse Name: Mainor Devries RN Position: [facility] RN Member Role: Primary Care Nurse Name: Yarely Richards RN Position: [facility] Manager Intensive Care Member Role: Primary Care Nurse Name: Oralia Massey RN Position: [facility] RN Member Role: Primary Care Nurse Name: Rich WILSON pee Position: [facility] RN Member Role: Primary Care Nurse Name: Taiwo Mcgregor RN Position: [facility] RN Member Role: Primary Care Nurse Name: Cally Funes RN Position: [facility] SN RN Member Role: Primary Care Nurse Name: Marina Osorio Position: [facility] RN Member Role: Primary Care Nurse Name: Lisa Blanton RN Position: [facility] Manager Intensive Care Member Role: Primary Care Nurse Name: Danica Stuart RN Position: [facility] AMB Nurse Member Role: Primary Care Nurse Name: Virginia Bacon RN Position: [facility] RN Member Role: Primary Care Nurse Name: Shruthi Ray RN Position: [facility] RN Member Role: Primary Care Nurse Name: Abbe Choe RN Position: [facility] RN Supv Member Role: Primary Care Nurse Name: Farideh Cat LPN Position: [facility] RN Member Role: Primary Care Nurse Name: Janis Morris RN Position: [facility] Manager Intensive Care Member Role: Primary Care Nurse Name: Darrian Chang RN Position: [facility] Manager Intensive Care Member Role: Primary Care Nurse Name: Josef Woods RN Position: [facility] RN Member Role: Primary Care Nurse Name: Siomara Raphael Position: [facility] RN Member Role: Primary Care Nurse Name: Jerry Mcneill RN Position: [facility] RN Member Role: Primary Care Nurse Care Team Related Persons Name: IVAN VILLASENOR Address: [place] [address] Name: REYNALDO KAUR Address: home [address] [place] [address] Name: EMMA SERRANO Address: home [address] [address] Name: PATRICK MATA Address: home [address] [place] [address] Name: FARIDEH POPE Address: [place] [address]
--- OUTSIDE RECORDS SUMMARY | 2022-08-31 01:19 | XMS_ITS | Continuity of Care Document ---
Author Name Unknown Organization [facility] ter Address [address] [place] [address]- Care Team Providers Care Salvage Mend Worker Name Role Phone Chaparrita Pizano DO Primary Care Physician Encounter [facility] Date(s): 02/09/21 - 02/14/[address] [address]- Encounter Diagnosis COVID-19(Final) - 02/08/21 Nausea & vomiting(Final) - 02/09/21 Discharge Disposition: A-D/C Home Attending Physician: Jimbo Wilkinson MD Admitting Physician: Hollis Moreno MD Referring Physician: Not on Staff, Referring MD Allergies, Adverse Reactions, Alerts Substance Reaction Severity Status doxycycline mouth swelling Active ceftriaxone hives Active morphine 1, 2, 3 hives Active iodine topical swelling itching Active penicillin throat swelling Rash Persistent Severe Active famotidine vomiting Active melatonin Active Zofran 4 can only [...] to receive vaccine 2Admin Note: manufactured by [employer] Medications albuterol 0.042% inhalation solution 3 [...] 03/08/21 12:51:00 EST, 02/14/21 12:51:00 EST, Liquid, [id number], Partial fill [...] 13:21:00 EDT, Tablet, [id number], Partial fill upon patient request... Start [...] EST, Tablet, [facility], [...] 08/30/17 8:21:42 EDT, Route to Pharmacy Electronically, [id number], [id number] Start Date: 08/30/17 Status: Ordered Tums 500 mg oral tablet, chewable 500 mg, 1, tablet, Chew, Every 4 hours, PRN, # 180 tablet, Refills 0, Tot. Refills 0, Maintenance, Dyspepsia, 06/21/18 11:05:15 EDT, Route to Pharmacy Electronically, [id number], [facility] [...] WITH PRO LONGED DEPRESSIVE REACTION(Confirmed) 02/03/07 Active [facility] Team Senior Level Patient(Confirmed) [...] Exam Date Time Procedure Performing Provider Status 02/08/21 4:53 PM Chest 2 Views Frontal and Lat Veda To; Auth (Verified) Notes: (Chest 2 Views Frontal and Lat) Reason For Exam: Chest Pain;Other: RESULT: Chest 2 Views Frontal and Lat Chest 2 Views Frontal and Lat HX OF PRESENT ILLNESS: Pt report that recent abd pain, headache, weakness, N V D, body aches, decrease PO intake since last Tuesday.; Reason: Chest Pain COMPARISON: 11/06/2020 FINDINGS: LINES AND TUBES: Right chest Port-A-Cath with the catheter tip at the superior cavoatrial junction. LUNGS AND PLEURA: Clear lungs. Normal pulmonary vascularity. No pleural effusion. No pneumothorax. HEART, MEDIASTINUM AND LISA: Heart is normal in size. Normal mediastinal and hilar contour. BONES AND SOFT TISSUES: No acute abnormality. IMPRESSION: No evidence of acute abnormality. WSN: [id number] Ordering Physician: Taiwo Aguilar Dictated By: Jorden Genao MD Dictated Date/Time: 02/08/21 4:56 pm Reviewed By: Jorden Genao MD Signed By: Jorden Genao MD Signed Date/Time: 02/08/21 4:56 pm Transcribed By: DEIDRE Transcribed Date/Time: 02/08/21 4:55 pm Vital Signs Most recent to oldest [Reference Range]: 1 2 3 Height 155 cm (02/14/21 7:42 AM) 155 cm (02/13/21 2:53 PM) 155 cm (02/13/21 12:11 PM) Weight 133 kg (02/09/21 4:53 PM) Oxygen Saturation [94-100 %] 99 % (02/14/21 11:00 AM) 98 % (02/14/21 7:42 AM) 99 % (02/14/21 2:00 AM) Pulse Rate [55-90 bpm] 69 bpm (02/14/21 11:00 AM) 72 bpm (02/14/21 7:42 AM) 64 bpm (02/14/21 2:00 AM) Body Mass Index [18.5-24.99] 55.36 *>HHI* (02/09/21 4:53 PM) Blood Pressure [90-138/55-84 mm Hg] 129/72mm Hg (02/14/21 11:00 AM) 105/63mm Hg (02/14/21 7:42 AM) 140/84mm Hg *H* (02/14/21 2:00 AM) Respiratory Rate [16-30 br/min] 18 br/min (02/14/21 11:00 AM) 18 br/min (02/14/21 7:42 AM) 18 br/min (02/14/21 2:00 AM) Temperature [96.8-100.4 DegF] 98.0 DegF (02/14/21 11:00 AM) 98.4 DegF (02/14/21 7:42 AM) 98.5 DegF (02/14/21 2:00 AM) Mode of Delivery (Oxygen) Room air (02/14/21 11:00 AM) Room air (02/14/21 7:42 AM) Room air (02/14/21 2:00 AM) Blood pressure sites Arm, right (02/14/21 11:00 AM) Arm, right (02/14/21 7:42 AM) Arm, right (02/14/21 2:00 AM) Temperature Route Oral (02/14/21 11:00 AM) Oral (02/14/21 7:42 AM) Oral (02/14/21 2:00 AM) Dry Weight 133 kg (02/09/21 4:53 PM) Social History Social History Type Response Smoking Status Former smoker; Other : quit 04/2015; entered on: 01/30/16 Sex
--- OUTSIDE RECORDS SUMMARY | 2022-08-31 01:19 | XMS_ITS | Continuity of Care Document ---
Author Name Unknown Organization [facility] ter Address [address] [place] [address]- Care Team Providers Care Mailroom Messenger Name Role Phone Chaparrita Pizano DO Primary Care Physician Encounter [facility] Date(s): 08/20/21 - 01/04/[address] [address]- Attending Physician: Donald Murphy MD Admitting Physician: [...] to receive vaccine 2Admin Note: manufactured by [employer] Medications albuterol 0.042% inhalation solution 3 [...] Route to Pharmacy Electronically, [facility], Partial fill upon patient [...] 04/02/20 9:29:00 EST, Tablet, [facility], Partial fill upon patient [...] 06/21/18 11:05:15 EDT, Route to Pharmacy Electronically, [id number], [facility] Start Date: 06/21/18 Status: Ordered [...] PROLONGED DEPRESSIVE REACTION Confirmed 02/03/07 Active [place] [facility] [employer] Team Senior Level Patient Confirmed Active [...] Team Personnel Name: Lola Belcher RN Position: [facility] RN Member Role: Primary Care Nurse Name: Jose Enrique Saul RN Position: [facility] RN Member Role: Primary Care Nurse Name: Symone Mckinnon RN Position: [facility] RN Member Role: Primary Care Nurse Name: Carolyn Pelaez RN Position: [facility] RN Member Role: Primary Care Nurse Name: Deanna Garcia RN Position: [facility] RN Member Role: Primary Care Nurse Name: Fanny Mixon RN Position: [facility] ED RN W/OE and Tasks Member Role: Primary Care Nurse Name: María Ashford RN Position: [facility] AMB Nurse Member Role: Primary Care Nurse Name: Chanelle Hernandez RN Position: [facility] PCO RN Member Role: Primary Care Nurse Name: Estelle García RN Position: [facility] RN Member Role: Primary Care Nurse Name: Deanne Rangel RN Position: [facility] RN Member Role: Primary Care Nurse Name: Carine Jimenez RN Position: [facility] SN RN Member Role: Primary Care Nurse Name: Jenelle Campo RN Position: [facility] RN Member Role: Primary Care Nurse Name: Keyla Godwin RN Position: [facility] RN Member Role: Primary Care Nurse Name: Yeimi Devine RN Position: [facility] RN Member Role: Primary Care Nurse Name: Mary Yan RN Position: [facility] RN Member Role: Primary Care Nurse Name: Iliana Pop RN Position: [facility] RN Member Role: Primary Care Nurse Name: Alcides Dueñas RN Position: [facility] RN Member Role: Primary Care Nurse Name: Lisa Beatty Position: [facility] Outreach Member Role: Lifetime Consulting Physician Name: Armida Beatty RN Position: [facility] RN Member Role: Primary Care Nurse Name: Roque Villasenor MD Position: [facility] Renal MD Member Role: Lifetime Consulting Physician Address: Address: [address] [place] [address], [address] [facility] [address] Name: Lashon Lovell RN Position: [facility] SN RN Member Role: Primary Care Nurse Name: Kristi Giraldo RN Position: [facility] RN Supv Member Role: Primary Care Nurse Name: Jerrod Casarez RN Position: [facility] RN Member Role: Primary Care Nurse Name: Rosalva Martin RN Position: [facility] RN Member Role: Primary Care Nurse Name: Armida Ochoa RN Position: [facility] RN Member Role: Primary Care Nurse Name: Deonna Murillo RN Position: [facility] RN Member Role: Primary Care Nurse Name: Felipa Diehl RN Position: [facility] HBO Wound Member Role: Primary Care Nurse Name: Evelin Powell RN Position: [facility] AMB Nurse Member Role: Primary Care Nurse Name: Deonna Pendleton RN Position: [facility] RN Member Role: Primary Care Nurse Name: Pili Kaba RN Position: [facility] GAGANDEEP RN W/OE and Tasks Member Role: Primary Care Nurse Name: Alejandro Yanes RN Position: [facility] RN Member Role: Primary Care Nurse Name: Stacey Díaz RN Position: [facility] SN RN Member Role: Primary Care Nurse Name: Jac Reese RN Position: [facility] RN Member Role: Primary Care Nurse Name: Celestine Schwartz RN Position: [facility] RN Member Role: Primary Care Nurse Name: Neeta Carpenter RN Position: [facility] RN Member Role: Primary Care Nurse Name: Susie Estrada RN Position: [facility] RN Member Role: Primary Care Nurse Name: Inna Cantor RN Position: [facility] RN Member Role: Primary Care Nurse Name: Chaparrita Pizano DO Position: [facility] Physician (General Medicine) Member Role: PCP Address: Address: [address] [place] [address]- Name: Ning Rolon RN Position: [facility] RN Member Role: Primary Care Nurse Name: Rubi Carrasco RN Position: [facility] SN RN Member Role: Primary Care Nurse Name: Lauryn Holden RN Position: [facility] RN Member Role: Primary Care Nurse Name: Shen Silvestre RN Position: [facility] RN Member Role: Primary Care Nurse Name: Jones Cervantes RN Position: [facility] RN Member Role: Primary Care Nurse Name: Olivia Caputo RN Position: [facility] RN Member Role: Primary Care Nurse Name: Brooklyn Jim RN Position: [facility] RN Member Role: Primary Care Nurse Name: Kimberly Santoro RN Position: [facility] RN Member Role: Primary Care Nurse Name: Haley Diamond RN Position: [facility] RN Member Role: Primary Care Nurse Name: Ashley Meléndez NP Position: [facility] PCO Associate Professional Member Role: Primary Care Nurse Address: Address: [address] [place] [address] 3[address] [place] [address]- Name: Siomara Patricia RN Position: [facility] RN Member Role: Primary Care Nurse Name: Neeta Painter RN Position: [facility] RN Member Role: Primary Care Nurse Name: Edith Drummond RN Position: [facility] RN Member Role: Primary Care Nurse Name: Bailey Espinal RN Position: [facility] AMB Nurse Member Role: Primary Care Nurse Name: Brooklyn Ramsey RN Position: [facility] RN Member Role: Primary Care Nurse Name: Keyla Bright RN Position: [facility] RN Member Role: Primary Care Nurse Name: Beverley Tatum RN Position: [facility] RN Member Role: Primary Care Nurse Name: Mainor Devries RN Position: [facility] RN Member Role: Primary Care Nurse Name: Yarely Richards RN Position: [facility] Supervisor Hydrochlor[employer] Area Member Role: Primary Care Nurse Name: Oralia Massey RN Position: [facility] RN Member Role: Primary Care Nurse Name: Cassie Villanueva RN Position: [facility] RN Member Role: Primary Care Nurse Name: Taiwo Mcgregor RN Position: [facility] RN Member Role: Primary Care Nurse Name: Cally Funes RN Position: [facility] SN RN Member Role: Primary Care Nurse Name: Marina Osorio Position: [facility] RN Member Role: Primary Care Nurse Name: Lisa Blanton RN Position: [facility] Supervisor [employer]chlor[employer] Area Member Role: Primary Care Nurse Name: Danica Stuart RN Position: [facility] AMB Nurse Member Role: Primary Care Nurse Name: Shruthi Ray RN Position: [facility] RN Member Role: Primary Care Nurse Name: Abbe Choe RN Position: [facility] RN Supv Member Role: Primary Care Nurse Name: Farideh Cat LPN Position: [facility] RN Member Role: Primary Care Nurse Name: Janis Morris RN Position: [facility] Supervisor [employer]chlor[employer] Area Member Role: Primary Care Nurse Name: Darrian Chang RN Position: [facility] Supervisor [employer]chlor[employer] Member Role: Primary Care Nurse Name: Jerry Mcneill RN Position: [facility] RN Member Role: Primary Care Nurse Care Team Related Persons Name: IVAN VILLASENOR Address: [place] [address] Name: REYNALDO KAUR Address: home [address] [place] [address] Name: EMMA SERRANO Address: home [address] [address] Name: PATRICK MATA Address: home [address] [place] [address] Name: FARIDEH POPE Address: [place] [address]
--- OUTSIDE RECORDS SUMMARY | 2022-08-31 01:19 | XMS_ITS | Continuity of Care Document ---
Author Name Unknown Organization [facility] Address [address] [place] [address] [address] [place] [address]- Care Team Providers Care Body Die Maker Name Role Phone Chaparrita Pizano DO Primary Care Physician Encounter [facility] [place] [place] Date(s): 09/01/21 - 02/17/22 [facility] [address] [place] [address]- Attending Physician: Tien Astudillo MD Referring Physician: Chaparrita Pizano DO Allergies, Adverse Reactions, Alerts Substance Reaction Severity Status doxycycline mouth swelling Active ceftriaxone hives Active penicillin throat swelling Rash Persistent Severe Active Zofran 1 can only be given w/ benadryl hives Active famotidine vomiting Active morphine 2, 3, 4 hives Active iodine topical swelling itching Active melatonin Active Pepcid vomitng Active Compazine shortness of breath Active Tylenol hives Active Adhesive Bandage skin excoriation hives Active Nexium diarrhea, vomitting Active Levaquin tingling in mouth, rash Acti ve Reglan severe restless legs Active Contrast Dye [...] to receive vaccine 2Admin Note: manufactured by [employer] Medications albuterol 0.042% inhalation solution 3 [...] 04/02/20 9:29:00 EST, Tablet, [facility] 3, Partial fill upon patient request [...] 06/21/18 11:05:15 EDT, Route to Pharmacy Electronically, [id number], [facility] Start Date: [...] WITH PROLONGED DEPRESSIVE REACTION Confirmed 02/03/07 Active [facility] [place] Team Senior Level Patient Confirmed Active ASTHMA [...] Team Personnel Name: Lola Belcher RN Position: [facility] RN Member Role: Primary Care Nurse Name: Jose Enrique Saul RN Position: [facility] RN Member Role: Primary Care Nurse Name: Symone Mckinnon RN Position: [facility] RN Member Role: Primary Care Nurse Name: Carolyn Pelaez RN Position: [facility] RN Member Role: Primary Care Nurse Name: Deanna Garcia RN Position: [facility] RN Member Role: Primary Care Nurse Name: Fanny Mixon RN Position: [facility] ED RN W/OE and Tasks Member Role: Primary Care Nurse Name: María Ashford RN Position: [facility] AMB Nurse Member Role: Primary Care Nurse Name: Chanelle Hernandez RN Position: [facility] PCO RN Member Role: Primary Care Nurse Name: Estelle García RN Position: [facility] RN Member Role: Primary Care Nurse Name: Deanne Rangel RN Position: [facility] RN Member Role: Primary Care Nurse Name: Carine Jimenez RN Position: [facility] SN RN Member Role: Primary Care Nurse Name: Jenelle Campo RN Position: [facility] RN Member Role: Primary Care Nurse Name: Keyla Godwin RN Position: [facility] RN Member Role: Primary Care Nurse Name: Yeimi Devine RN Position: [facility] RN Member Role: Primary Care Nurse Name: Mary Yan RN Position: [facility] RN Member Role: Primary Care Nurse Name: Iliana Pop RN Position: [facility] RN Member Role: Primary Care Nurse Name: Alcides Dueñas RN Position: [facility] RN Member Role: Primary Care Nurse Name: Lisa Beatty Position: [facility] Outreach Member Role: Lifetime Consulting Physician Name: Armida Beatty RN Position: [facility] RN Member Role: Primary Care Nurse Name: Roque Villasenor MD Position: [facility] Renal MD Member Role: Lifetime Consulting Physician Address: Address: [address] [place] [address], [address] [facility] [place] [address] Name: Lashon Lovell RN Position: [facility] SN RN Member Role: Primary Care Nurse Name: Kristi Giraldo RN Position: [facility] RN Supv Member Role: Primary Care Nurse Name: Jerrod Casarez RN Position: [facility] RN Member Role: Primary Care Nurse Name: Rosalva Martin RN Position: [facility] RN Member Role: Primary Care Nurse Name: Armida Ochoa RN Position: [facility] RN Member Role: Primary Care Nurse Name: Deonna Murillo RN Position: [facility] RN Member Role: Primary Care Nurse Name: Felipa Diehl RN Position: [facility] HBO Wound Member Role: Primary Care Nurse Name: Evelin Powell RN Position: [facility] AMB Nurse Member Role: Primary Care Nurse Name: Deonna Pendleton RN Position: [facility] RN Member Role: Primary Care Nurse Name: Pili Kaba RN Position: [facility] GAGANDEEP RN W/OE and Tasks Member Role: Primary Care Nurse Name: Alejandro Ynaes RN Position: [facility] RN Member Role: Primary Care Nurse Name: Stacey Díaz RN Position: [facility] SN RN Member Role: Primary Care Nurse Name: Jac Reese RN Position: [facility] RN Member Role: Primary Care Nurse Name: Celestine Schwartz RN Position: [facility] RN Member Role: Primary Care Nurse Name: Neeta Carpenter RN Position: [facility] RN Member Role: Primary Care Nurse Name: Susie Estrada RN Position: [facility] RN Member Role: Primary Care Nurse Name: Inna Cantor RN Position: [facility] RN Member Role: Primary Care Nurse Name: Chaparrita Pizano DO Position: [facility] Physician (General Medicine) Member Role: PCP Address: Address: [address] [place] [address]- Name: Ning Rolon RN Position: [facility] RN Member Role: Primary Care Nurse Name: Rubi Carrasco RN Position: [facility] SN RN Member Role: Primary Care Nurse Name: Lauryn Holden RN Position: [facility] RN Member Role: Primary Care Nurse Name: Shen Silvestre RN Position: [facility] RN Member Role: Primary Care Nurse Name: Jones Cervantes RN Position: [facility] RN Member Role: Primary Care Nurse Name: Olivia Caputo RN Position: [facility] RN Member Role: Primary Care Nurse Name: Brooklyn Jim RN Position: [facility] RN Member Role: Primary Care Nurse Name: Kimberly Santoro RN Position: [facility] RN Member Role: Primary Care Nurse Name: Haley Diamond RN Position: [facility] RN Member Role: Primary Care Nurse Name: Ashley Meléndez NP Position: [facility] PCO Associate Professional Member Role: Primary Care Nurse Address: Address: [address] [place] [address]- Name: Siomara Patricia RN [facility] RN Member Role: Primary Care Nurse Name: Neeta Painter RN Position: [facility] RN Member Role: Primary Care Nurse Name: Edith Drummond RN Position: [facility] RN Member Role: Primary Care Nurse Name: Bailey Espinal RN Position: [facility] AMB Nurse Member Role: Primary Care Nurse Name: Brooklyn Ramsey RN Position: [facility] RN Member Role: Primary Care Nurse Name: Keyla Bright RN Position: [facility] RN Member Role: Primary Care Nurse Name: Beverley Tatum RN Position: [facility] RN Member Role: Primary Care Nurse Name: Mainor Devries RN Position: [facility] RN Member Role: Primary Care Nurse Name: Yarely Richards RN Position: [facility] Member Role: Primary Care Nurse Name: Oralia Massey RN Position: [facility] RN Member Role: Primary Care Nurse Name: Rich WILSON pee Position: [facility] RN Member Role: Primary Care Nurse Name: Taiwo Mcgregor RN Position: [facility] RN Member Role: Primary Care Nurse Name: Cally Funes RN Position: [facility] SN RN Member Role: Primary Care Nurse Name: Marina Osorio Position: [facility] RN Member Role: Primary Care Nurse Name: Lisa Blanton RN Position: [facility] Member Role: Primary Care Nurse Name: Danica Stuart RN Position: [facility] AMB Nurse Member Role: Primary Care Nurse Name: Shruthi Ray RN Position: [facility] RN Member Role: Primary Care Nurse Name: Abbe Choe RN Position: [facility] RN Supv Member Role: Primary Care Nurse Name: Farideh Cat LPN Position: [facility] RN Member Role: Primary Care Nurse Name: Janis Morris RN Position: [facility] Member Role: Primary Care Nurse Name: Darrian Chang RN Position: [facility] Member Role: Primary Care Nurse Name: Jerry Mcneill RN Position: [facility] RN Member Role: Primary Care Nurse Care Team Related Persons Name: IVAN VILLASENOR Address: [place] [address] Name: REYNALDO KAUR Address: home [address] [place] [address] Name: EMMA SERRANO Address: home [address] [address] Name: PATRICK MATA Address: home [address] [place] [address] Name: FARIDEH POPE Address: [place] [address]
--- OUTSIDE RECORDS SUMMARY | 2022-08-31 01:19 | XMS_ITS | Continuity of Care Document ---
Author Name Unknown Organization [facility] Address [address] [place] [address] [address] [place] [address]- Care Team Providers Care Switch Technician Name Role Phone Chaparrita Pizano DO Primary Care Physician ( [phone] [place] [facility] [place] - 02/28/[address] [place] [address]- Attending Physician: Jamie Gregorio Admitting Physician: AdmtrJamie [...] 1 02/02/07 Given 1Admin Note: manufactured by [employer] Medications albuterol CFC free 90 mcg/inh [...] 11:42:54 EDT, Aerosol, Route to Pharmacy Electronically, [id number], [facility]/pharmacy #[id number], Compound Start Date: 06/10/17 Status: [...] capsule, 0 Refills, Maintenance, 05/02/19 10:52:00 EDT, [facility]/pharmacy #[id number], 155.9, cm, 04/26/19 9:14:00 EDT, [...] Refills, Soft Stop, 02/13/20 9:25:00 EST, Tablet, [facility]/pharmacy #[id number], Partial fill upon patient request if the [...] 05/05/18 9:38:51 EDT, Route to Pharmacy Electronically, [id number]... Start Date: 05/05/18 Status: Ordered Insulin Glargine Inj 0.6 mL = 60 units, Subcutaneous Injection, Daily at bedtime, 0 Refills, Maintenance, 08/20/19 18:48:00 EDT, Injection Start Date: 08/20/19 Status: Ordered LORazepam 0.5 mg oral tablet See Instructions, Take 1 tablet by mouth 1 hour prior to biopsy appointment, may repeat x1 if needed, # 2 tablet, 0 Refills, Maintenance, 04/27/19 16:33:00 EDT, [facility]/pharmacy #[id number], 155.9, cm, 04/26/19 9:14:00 EDT, [...] each, 2 Refills, Maintenance, 12/05/19 20:53:00 EDT, [facility], 155, cm, 08/20/19 16:31:00 [...] 02/19/20 14:40:00 EST, Route to Pharmacy Electronically, [facility]/pharmacy #[id number], Partial fill upon patient request, 155, cm, [...] 08/30/17 8:21:42 EDT, Route to Pharmacy Electronically, [id number], [facility]/pharmacy #[id number] Start Date: 08/30/17 Status: Ordered [...] 06/21/18 11:05:15 EDT, Route to Pharmacy Electronically, [id number], [facility] [facility] Start Date: 06/21/18 Status: [...] WITH PRO LONGED DEPRESSIVE REACTION(Confirmed) 02/03/07 Active [facility] Senior [...]
--- OUTSIDE RECORDS SUMMARY | 2022-08-31 01:19 | XMS_ITS | Continuity of Care Document ---
Author Name Unknown Organization [facility] Address [address] [place] [address]- Care Team Providers Care Irrigation Pump Installer Name Role Phone Chaparrita Pizano DO Primary Care Physician [place] [facility] [place]16[place] - 06/16/[address] [address]- [facility] Encounter Diagnosis Abdominal pain(Final) - 06/16/19 Discharge Disposition: A-D/C Home Attending Physician: Carter Jacobo MD Admitting Physician: Carter Jacobo MD Referring Physician: Not on Staff, Referring [...] 11:42:54 EDT, Aerosol, Route to Pharmacy Electronically, [id number], [facility]/pharmacy #[id number], Compound Start Date: 06/10/17 Status: Ordered [...] Refills, Maintenance, 05/02/19 10:52:00 EDT, [facility]/pharmacy #[id number], 155.9, cm, 04/26/19 9:14:00 EDT, Height... [...] 05/05/18 9:38:51 EDT, Route to Pharmacy Electronically, [id number]... Start Date: 05/05/18 Status: Ordered Lantus 100 u/ml subcutaneous solution = 55 units, Subcutaneous Infusion, Daily at bedtime, 0 Refills, Maintenance, 10/04/18 9:32:23 EDT Start Date: 10/04/18 Status: Ordered LORazepam 0.5 mg oral tablet See Instructions, Take 1 tablet by mouth 1 hour prior to biopsy appointment, may repeat x1 if needed, # 2 tablet, 0 Refills, Maintenance, 04/27/19 16:33:00 EDT, [facility]/pharmacy #[id number], 155.9, cm, 04/26/19 9:14:00 EDT, Height, 131.5, [...] 06/04/19 5:24:00 EDT, Route to Pharmacy Electronically, [facility]/pharmacy #[id number], Partial fill upon patient request, 155, cm, [...] 08/30/17 8:21:42 EDT, Route to Pharmacy Electronically, [id number], [facility]/pharmacy #[id number] Start Date: 08/30/17 Status: Ordered Avni Jeteri-Cat 2 oral suspension See Instructions, please follow [...] 06/21/18 11:05:15 EDT, Route to Pharmacy Electronically, [id number], [facility] [facility] Start Date: [...] WITH PRO LONGED DEPRESSIVE REACTION(Confirmed) 02/03/07 Active [facility] Team Senior Level Patient(Confirmed) Active [...] 3 Oxygen Saturation [94-100 %] 100 % (06/16/19 2:10 PM) 100 % (06/16/19 12:29 PM) 99 % (06/16/19 12:22 PM) Pulse Rate [55-90 bpm] 77 bpm (06/16/19 2:10 PM) 79 bpm (06/16/19 12:29 PM) 80 bpm (06/16/19 12:22 PM) Blood Pressure [90-138/55-84 mm Hg] 140/61mm Hg *H* (06/16/19 2:10 PM) 126/67mm Hg (06/16/19 12:29 PM) Respiratory Rate [16-30 br/min] 16 br/min (06/16/19 2:10 PM) 16 br/min (06/16/19 12:29 PM) Temperature [96.8-100.4 DegF] 98.1 DegF (06/16/19 12:29 PM) Mode of Delivery (Oxygen) Room air (06/16/19 2:10 PM) Room air (06/16/19 12:29 PM) Room air (06/16/19 12:22 PM) Blood pressure sites Arm, left (5/2/20 2:10 PM) Arm, left (06/16/19 12:29 PM) Temperature Route Oral (06/16/19 12:29 PM) Social History Social History Type Response Smoking Status Former smoker; Other : quit 04/2015; entered on: 01/30/16 Sex Female
--- OUTSIDE RECORDS SUMMARY | 2022-08-31 01:19 | XMS_ITS | Continuity of Care Document ---
Author Name Unknown Organization [facility] ter Address [address] [place] [address]- Care Team Providers Care Restaurant Inspector Name Role Phone Darryl Pizano DOdavidradha Gupta Primary Care Physician [place] [facility] [place] - 03/01/[address] [address]- Attending Physician: Donald Murphy MD Admitting Physician: [...] to receive vaccine 2Admin Note: manufactured by [employer] Medications albuterol 0.042% inhalation solution 3 [...] 09/08/21 13:21:00 EDT, Route to Pharmacy Electronically, [facility] [facility], Partial fill upon patient [...] tablet, 0 Refills, Maintenance, 04/02/20 9:29:00 EST, [facility], Partial fill upon patient request if [...] 06/21/18 11:05:15 EDT, Route to Pharmacy Electronically, [id number], [facility] [facility] Start Date: [...] WITH PROLONGED DEPRESSIVE REACTION Confirmed 02/03/07 Active [facility] [place] Team Senior Level Patient Confirmed Active ASTHMA [...] Role: Lifetime Consulting Physician Address: Address: [address] [place] [address], [address] [facility] [address] Name: Lashon Lovell RN Position: [facility] Celestine Schwartz RN Position: [facility] ED RN [...] Medicine) Member Role: PCP Address: Address: [address] [place] [id number]- Name: Ning Rolon RN Position: [facility] [...] Member Role: Primary Care Nurse Address: Address: [address] [place] [address]- [place] Name: Siomara Patricia RN Position: [facility] PCO RN Member Role: Primary Care Nurse Name: Neeta Painter RN Position: [facility] RN Member Role: Primary Care Nurse Name: Edith Drummond RN Position: [facility] RN Member Role: Primary Care Nurse Name: Bailey Espinal RN Position: [facility] AMB Nurse [...] Care Nurse Name: Yarely Richards RN Position: [facility] Personal Lines Advisor Member Role: Primary Care Nurse Name: Oralia Massey RN Position: [facility] RN Member Role: Primary Care Nurse Name: Cassie Villanueva RN Position: [facility] RN Member Role: Primary Care Nurse Name: Taiwo Mcgregor RN Position: [facility] RN Member Role: Primary Care Nurse Name: Cally Funes RN Position: [facility] SN RN Member Role: Primary Care Nurse Name: Marina Osorio Position: [facility] RN Member Role: Primary Care Nurse Name: Lisa Blanton RN Position: [facility] Personal Lines Advisor Member Role: Primary Care Nurse Name: Danica Stuart RN Position: [facility] AMB Nurse Member Role: Primary Care Nurse Name: Virginia Bacon RN Position: [facility] RN Member Role: Primary Care Nurse Name: Shruthi Ray RN Position: [facility] RN Member Role: Primary Care Nurse Name: Abbe Choe RN Position: [facility] RN Sara Member Role: Primary Care Nurse Name: Farideh Cat LPN Position: [facility] RN Member Role: Primary Care Nurse Name: Janis Morris RN Position: [facility] Personal Lines Advisor Member Role: Primary Care Nurse Name: Darrian Chang RN Position: [facility] Personal Lines Advisor Member Role: Primary Care Nurse Name: Josef Woods RN Position: [facility] RN Member Role: Primary Care Nurse Name: Siomara Raphael Position: [facility] RN Member Role: Primary Care Nurse Name: Jerry Mcneill RN Position: [facility] RN Member Role: Primary Care Nurse Care Team Related Persons Name: IVAN VILLASENOR Address: [place] [address] Name: REYNALDO KAUR Address: home [address] [place] [address] Name: EMMA SERRANO Address: home [address] [address] Name: PATRICK MATA Address: home [address] [place] [id number] Name: FARIDEH POPE Address: [place] [address]
[2022-08-31 01:20] LABS: Basophils Percent Auto 0.5 % (0-2); Eosinophils Absolute Auto 0.2 X10*3/uL (0.0-0.4); Eosinophils Percent Auto 4.3 % (0-4); Hematocrit 37.8 % (37.0-47.0); Hemoglobin 12.3 g/dl (12.0-16.0); Imm Gran Abs Auto 0.02 X10*3/uL (0.00-0.03); Imm Gran Pct Auto 0.4 % (0.0-0.4); Lymphocytes Absolute Auto 2.1 X10*3/uL (1.2-4.9); Lymphocytes Percent Auto 37.6 % (20-40); Mean Corpuscular HGB Conc 32.5 g/dl (31.0-35.0); Mean Corpuscular Hemoglobin 25.3 pg (27.0-33.0); Mean Corpuscular Volume 77.8 fL (80.0-98.0); Mean Platelet Volume 9.5 fL (9.4-12.3); Monocytes Absolute Auto 0.4 X10*3/uL (0.1-1.2); Monocytes Percent Auto 6.7 % (2-11); Neutrophils Absolute Auto 2.8 x10*3/uL (2.0-8.3); Neutrophils Percent Auto 50.5 % (45-73); Platelet Count 335 X10*3/uL (160-400); Red Blood Count 4.86 X10*6/uL (4.20-5.50); Red Cell Distribution Width 14.2 % (11.0-16.0); White Blood Count 5.6 X10*3/uL (4.8-10.8)
--- OUTSIDE RECORDS SUMMARY | 2022-08-31 01:20 | XMS_ITS | Continuity of Care Document ---
Author Name Unknown Organization [facility] ter Address [address] [place] [address]- Care Team Providers Care Electronics Utility Worker Name Role Phone Chaparrita Pizano DO Primary Care Physician [place] [facility] [place] - 01/22/[address] [address]- Attending Physician: Donald Murphy MD Admitting Physician: [...] to receive vaccine 2Admin Note: manufactured by [employer] Medications albuterol 0.042% inhalation solution 3 [...] 09/08/21 13:21:00 EDT, Route to Pharmacy Electronically, [facility], Partial fill upon [...] 0 Refills, Maintenance, 04/02/20 9:29:00 EST, Tablet, [facility], Partial fill upon [...] 06/21/18 11:05:15 EDT, Route to Pharmacy Electronically, [id number], [facility] Start Date: 06/21/18 Status: Ordered Vitamin [...] PROLONGED DEPRESSIVE REACTION Confirmed 02/03/07 Active [facility] [place] Team Senior Level Patient Confirmed Active ASTHMA [...] Team Personnel Name: Lola Belcher RN Position: [facility] RN Member Role: Primary Care Nurse Name: Jose Enrique Saul RN Position: [facility] RN Member Role: Primary Care Nurse Name: Symone Mckinnon RN Position: [facility] RN Member Role: Primary Care Nurse Name: Carolyn Pelaez RN Position: [facility] RN Member Role: Primary Care Nurse Name: Deanna Garcia RN Position: [facility] RN Member Role: Primary Care Nurse Name: Fanny Mixon RN Position: [facility] ED RN W/OE and Tasks Member Role: Primary Care Nurse Name: María Ashford RN Position: [facility] AMB Nurse Member Role: Primary Care Nurse Name: Chanelle Hernandez RN Position: [facility] PCO RN Member Role: Primary Care Nurse Name: Estelle García RN Position: [facility] RN Member Role: Primary Care Nurse Name: Deanne Rangel RN Position: [facility] RN Member Role: Primary Care Nurse Name: Carine Jimenez RN Position: [facility] SN RN Member Role: Primary Care Nurse Name: Jenelle Campo RN Position: [facility] RN Member Role: Primary Care Nurse Name: Keyla Godwin RN Position: [facility] RN Member Role: Primary Care Nurse Name: Yeimi Devine RN Position: [facility] RN Member Role: Primary Care Nurse Name: Mary Yan RN Position: [facility] RN Member Role: Primary Care Nurse Name: Iliana Pop RN Position: [facility] RN Member Role: Primary Care Nurse Name: Alcides Dueñas RN Position: [facility] RN Member Role: Primary Care Nurse Name: Lisa Beatty Position: [facility] Outreach Member Role: Lifetime Consulting Physician Name: Armida Beatty RN Position: [facility] RN Member Role: Primary Care Nurse Name: Roque Villasenor MD Position: [facility] Renal MD Member Role: Lifetime Consulting Physician Address: Address: [address] [place] [address], [address] [facility] [address] Name: Lashon Lovell RN Position: [facility] SN RN Member Role: Primary Care Nurse Name: Kristi Giraldo RN Position: [facility] RN Supv Member Role: Primary Care Nurse Name: Jerrod Casarez RN Position: [facility] RN Member Role: Primary Care Nurse Name: Rosalva Martin RN Position: [facility] RN Member Role: Primary Care Nurse Name: Armida Ochoa RN Position: [facility] RN Member Role: Primary Care Nurse Name: Deonna Murillo RN Position: [facility] RN Member Role: Primary Care Nurse Name: Felipa Diehl RN Position: [facility] HBO Wound Member Role: Primary Care Nurse Name: Evelin Powell RN Position: [facility] AMB Nurse Member Role: Primary Care Nurse Name: Deonna Pendleton RN Position: [facility] RN Member Role: Primary Care Nurse Name: Pili Kaba RN Position: [facility] GAGANDEEP RN W/OE and Tasks Member Role: Primary Care Nurse Name: Alejandro Yanes RN Position: [facility] RN Member Role: Primary Care Nurse Name: Stacey Díaz RN Position: [facility] SN RN Member Role: Primary Care Nurse Name: Jac Reese RN Position: [facility] RN Member Role: Primary Care Nurse Name: Celestine Schwartz RN Position: [facility] RN Member Role: Primary Care Nurse Name: Neeta Carpenter RN Position: [facility] RN Member Role: Primary Care Nurse Name: Susie Estrada RN Position: [facility] RN Member Role: Primary Care Nurse Name: Inna Cantor RN Position: [facility] RN Member Role: Primary Care Nurse Name: Chaparrita Pizano DO Position: [facility] Physician (General Medicine) Member Role: PCP Address: Address: [address] [place] [address]- Name: Ning Rolon RN Position: [facility] RN Member Role: Primary Care Nurse Name: Rubi Carrasco RN Position: [facility] SN RN Member Role: Primary Care Nurse Name: Lauryn Holden RN Position: [facility] RN Member Role: Primary Care Nurse Name: Shen Silvestre RN Position: [facility] RN Member Role: Primary Care Nurse Name: Jones Cervantes RN Position: [facility] RN Member Role: Primary Care Nurse Name: Olivia Caputo RN Position: [facility] RN Member Role: Primary Care Nurse Name: Brooklyn Jim RN Position: [facility] RN Member Role: Primary Care Nurse Name: Kimberly Santoro RN Position: [facility] RN Member Role: Primary Care Nurse Name: Haley Diamond RN Position: [facility] RN Member Role: Primary Care Nurse Name: Ashley Meléndez NP Position: [facility] PCO Associate Professional Member Role: Primary Care Nurse Address: Address: [address] [place] [address] 3rd [place] [address]- Name: Siomara Patricia RN [facility] RN Member Role: Primary Care Nurse Name: Neeta Painter RN Position: [facility] RN Member Role: Primary Care Nurse Name: Edith Drummond RN Position: [facility] RN Member Role: Primary Care Nurse Name: Bailey Espinal RN Position: [facility] AMB Nurse Member Role: Primary Care Nurse Name: Brooklyn Ramsey RN Position: [facility] RN Member Role: Primary Care Nurse Name: Keyla Bright RN Position: [facility] RN Member Role: Primary Care Nurse Name: Beverley Tatum RN Position: [facility] RN Member Role: Primary Care Nurse Name: Mainor Devries RN Position: [facility] RN Member Role: Primary Care Nurse Name: Yarely Richards RN Position: [facility] Cap Jewel Plate Assembler Member Role: Primary Care Nurse Name: Oralia Massey RN Position: [facility] RN Member Role: Primary Care Nurse Name: Cassie Villanueva RN Position: [facility] RN Member Role: Primary Care Nurse Name: Taiwo Mcgregor RN Position: [facility] RN Member Role: Primary Care Nurse Name: Cally Funes RN Position: [facility] SN RN Member Role: Primary Care Nurse Name: Marina Osorio Position: [facility] RN Member Role: Primary Care Nurse Name: Lisa Blanton RN Position: [facility] Cap Jewel Plate Assembler Member Role: Primary Care Nurse Name: Danica Stuart RN Position: [facility] AMB Nurse Member Role: Primary Care Nurse Name: Shruthi Ray RN Position: [facility] RN Member Role: Primary Care Nurse Name: Abbe Choe RN Position: [facility] RN Supv Member Role: Primary Care Nurse Name: Farideh Cat LPN Position: [facility] RN Member Role: Primary Care Nurse Name: Janis Morris RN Position: [facility] Cap Jewel Plate Assembler Member Role: Primary Care Nurse Name: Darrian Chang RN Position: [facility] Cap Jewel Plate Assembler Member Role: Primary Care Nurse Name: Jerry Mcneill RN Position: [facility] RN Member Role: Primary Care Nurse Care Team Related Persons Name: IVAN VILLASENOR Address: [place] [address] Name: REYNALDO KAUR Address: home [address] [place] [address] Name: EMMA SERRANO Address: [address] [address] Name: PATRICK MATA Address: home [address] [place] [address] Name: FARIDEH POPE Address: [place] [address]
--- OUTSIDE RECORDS SUMMARY | 2022-08-31 01:20 | XMS_ITS | Continuity of Care Document ---
Author Name Unknown Organization [facility] ter Address [address] [place] [address]- Care Team Providers Care Ore Mixer Name Role Phone Darryl Pizano DOdavidradha Gupta Primary Care Physician ( [phone] Encounter [facility] [place] Date(s): 08/20/21 - 02/08/[address] [address]- Attending Physician: Donald Murphy MD Admitting Physician: [...] to receive vaccine 2Admin Note: manufactured by [employer] Medications albuterol 0.042% inhalation solution 3 [...] 09/08/21 13:21:00 EDT, Route to Pharmacy Electronically, [facility], Partial fill upon [...] Refills, Maintenance, 04/02/20 9:29:00 EST, Tablet, [facility], Partial fill upon patient [...] 06/21/18 11:05:15 EDT, Route to Pharmacy Electronically, [id number], [facility] Start Date: 06/21/18 Status: Ordered [...] WITH PROLONGED DEPRESSIVE REACTION Confirmed 02/03/07 Active [facility] Team Senior Level Patient Confirmed Active ASTHMA [...] Team Personnel Name: Lola Belcher RN Position: [facility] RN Member Role: Primary Care Nurse Name: Jose Enrique Saul RN Position: [facility] RN Member Role: Primary Care Nurse Name: Symone Mckinnon RN Position: [facility] RN Member Role: Primary Care Nurse Name: Carolyn Pelaez RN Position: [facility] RN Member Role: Primary Care Nurse Name: Deanna Garcia RN Position: [facility] RN Member Role: Primary Care Nurse Name: Fanny Mixon RN Position: [facility] ED RN W/OE and Tasks Member Role: Primary Care Nurse Name: María Ashford RN Position: [facility] AMB Nurse Member Role: Primary Care Nurse Name: Chanelle Hernandez RN Position: [facility] PCO RN Member Role: Primary Care Nurse Name: Estelle García RN Position: [facility] RN Member Role: Primary Care Nurse Name: Deanne Rangel RN Position: [facility] RN Member Role: Primary Care Nurse Name: Carine Jimenez RN Position: [facility] SN RN Member Role: Primary Care Nurse Name: Jenelle Campo RN Position: [facility] RN Member Role: Primary Care Nurse Name: Keyla Godwin RN Position: [facility] RN Member Role: Primary Care Nurse Name: Yeimi Devien RN Position: [facility] RN Member Role: Primary Care Nurse Name: Mary Yan RN Position: [facility] RN Member Role: Primary Care Nurse Name: Iliana Pop RN Position: [facility] RN Member Role: Primary Care Nurse Name: Alcides Dueñas RN Position: [facility] RN Member Role: Primary Care Nurse Name: Lisa Beatty Position: [facility] Outreach Member Role: Lifetime Consulting Physician Name: Armida Beatty RN Position: [facility] RN Member Role: Primary Care Nurse Name: Roque Villasenor MD Position: [facility] Renal MD Member Role: Lifetime Consulting Physician Address: Address: [address] [place] [address], [address] [facility] [place] [place] [address] Name: Lashon Lovell RN Position: [facility] SN RN Member Role: Primary Care Nurse Name: Kristi Giraldo RN Position: [facility] RN Supv Member Role: Primary Care Nurse Name: Jerrod Casarez RN Position: [facility] RN Member Role: Primary Care Nurse Name: Rosalva Martin RN Position: [facility] RN Member Role: Primary Care Nurse Name: Armida Ochoa RN Position: [facility] RN Member Role: Primary Care Nurse Name: Deonna Murillo RN Position: [facility] RN Member Role: Primary Care Nurse Name: Felipa Diehl RN Position: [facility] HBO Wound Member Role: Primary Care Nurse Name: Evelin Powell RN Position: [facility] AMB Nurse Member Role: Primary Care Nurse Name: Deonna Pendleton RN Position: [facility] RN Member Role: Primary Care Nurse Name: Pili Kaba RN Position: [facility] GAGANDEEP RN W/OE and Tasks Member Role: Primary Care Nurse Name: Alejandro Yanes RN Position: [facility] RN Member Role: Primary Care Nurse Name: Stacey Díaz RN Position: [facility] SN RN Member Role: Primary Care Nurse Name: Jac Reese RN Position: [facility] RN Member Role: Primary Care Nurse Name: Celestine Schwartz RN Position: [facility] RN Member Role: Primary Care Nurse Name: Neeta Carpenter RN Position: [facility] RN Member Role: Primary Care Nurse Name: Susie Estrada RN Position: [facility] RN Member Role: Primary Care Nurse Name: Inna Cantor RN Position: [facility] RN Member Role: Primary Care Nurse Name: Chaparrita Pizano DO Position: [facility] Physician (General Medicine) Member Role: PCP Address: Address: [address] [place] [address]- Name: Ning Rolon RN Position: [facility] RN Member Role: Primary Care Nurse Name: Rubi Carrasco RN Position: [facility] SN RN Member Role: Primary Care Nurse Name: Lauryn Holden RN Position: [facility] RN Member Role: Primary Care Nurse Name: Shen Silvestre RN Position: [facility] RN Member Role: Primary Care Nurse Name: Jones Cervantes RN Position: [facility] RN Member Role: Primary Care Nurse Name: Olivia Caputo RN Position: [facility] RN Member Role: Primary Care Nurse Name: Brooklyn Jim RN Position: [facility] RN Member Role: Primary Care Nurse Name: Kimberly Santoro RN Position: [facility] RN Member Role: Primary Care Nurse Name: Haley Diamond RN Position: [facility] RN Member Role: Primary Care Nurse Name: Ashley Meléndez NP Position: [facility] PCO Associate Professional Member Role: Primary Care Nurse Address: Address: [address] [place] [address]- Name: Siomara Patricia [facility] Member Role: Primary Care Nurse Name: Neeta Painter RN Position: [facility] RN Member Role: Primary Care Nurse Name: Edith Drummond RN Position: [facility] RN Member Role: Primary Care Nurse Name: Bailey Espinal RN Position: [facility] AMB Nurse Member Role: Primary Care Nurse Name: Brooklyn Ramsey RN Position: [facility] RN Member Role: Primary Care Nurse Name: Keyla Bright RN Position: [facility] RN Member Role: Primary Care Nurse Name: Beverley Tatum RN Position: [facility] RN Member Role: Primary Care Nurse Name: Mainor Devries RN Position: [facility] RN Member Role: Primary Care Nurse Name: Yarely Richards RN Position: [facility] Transportation Modeler Member Role: Primary Care Nurse Name: Oralia Massey RN Position: [facility] RN Member Role: Primary Care Nurse Name: Rich WILSON pee Position: [facility] RN Member Role: Primary Care Nurse Name: Taiwo Mcgregor RN Position: [facility] RN Member Role: Primary Care Nurse Name: Cally Funes RN Position: [facility] SN RN Member Role: Primary Care Nurse Name: Marina Osorio Position: [facility] RN Member Role: Primary Care Nurse Name: Lisa Blanton RN Position: [facility] Transportation Modeler Member Role: Primary Care Nurse Name: Danica Stuart RN Position: [facility] AMB Nurse Member Role: Primary Care Nurse Name: Shruthi Ray RN Position: [facility] RN Member Role: Primary Care Nurse Name: Abbe Choe RN Position: [facility] RN Supv Member Role: Primary Care Nurse Name: Farideh Cat LPN Position: [facility] RN Member Role: Primary Care Nurse Name: Janis Morris RN Position: [facility] Transportation Modeler Member Role: Primary Care Nurse Name: Darrian Chang RN Position: [facility] Transportation Modeler Member Role: Primary Care Nurse Name: Jerry Mcneill RN Position: [facility] RN Member Role: Primary Care Nurse Care Team Related Persons Name: IVAN VILLASENOR Address: [place] [address] Name: REYNALDO KAUR Address: [address] [place] [address] Name: EMMA SERRANO Address: [address] [address] Name: PATRICK MATA Address: [address] [place] [address] Name: FARIDEH POPE Address: [place] [address]
--- OUTSIDE RECORDS SUMMARY | 2022-08-31 01:20 | XMS_ITS | Continuity of Care Document ---
Author Name Unknown Organization [facility] Address [address] [place] [address] [address], [address] [place] [address]- Care Team Providers Care Laboratory Analyst Name Role Phone Chaparrita Pizano DO Primary Care Physician [place] [facility] [place]): [place] - 02/02/19 [facility] [address] [place] [address] Drive, [address] [place] [address]- [facility] Attending Physician: Marshal SHERIFF, Gavin Weeks Referring Physician: Genia Macias NP Allergies, Adverse Reactions, Alerts Substance Reaction Severity [...] 1 02/02/07 Given 1Admin Note: manufactured by [employer] Medications albuterol CFC free 90 mcg/inh [...] 11:42:54 EDT, Aerosol, Route to Pharmacy Electronically, [id number], [id number], Compound Start Date: 06/10/17 [...] 05/05/18 9:38:51 EDT, Route to Pharmacy Electronically, [id number]... Start Date: 05/05/18 Status: Ordered Lantus 100 [...] Increasing dose. Start Date: 01/17/18 Stop Date: 6/2/19 Status: Ordered Senna Plus 50 mg-8.6 mg oral tablet 2 tablet, By Mouth, Daily at bedtime, Maintenance, 10/04/18 16:17:29 EDT, Tablet Start Date: 10/04/18 Status: Ordered simvastatin 40 mg oral tablet 40 mg, 1, tablet, By Mouth, Daily at bedtime, # 90 tablet, Refills 1, Tot. Refills 1, Maintenance, 08/30/17 8:21:42 EDT, Route to Pharmacy Electronically, [id number], [facility][id number] Start Date: 08/30/17 Status: Ordered Tums 500 mg oral tablet, chewable 500 mg, 1, tablet, Chew, Every 4 hours, PRN, # 180 tablet, Refills 0, Tot. Refills 0, Maintenance, Dyspepsia, 06/21/18 11:05:15 EDT, Route to Pharmacy Electronically, [id number], [facility] Start Date: 06/21/18 [...] WITH PRO LONGED DEPRESSIVE REACTION(Confirmed) 02/03/07 Active [facility] [...]
--- OUTSIDE RECORDS SUMMARY | 2022-08-31 01:20 | XMS_ITS | Continuity of Care Document ---
Author Name Unknown Organization [facility] ter Address [address] [place] [address]- Care Team Providers Care Coil Strapper Name Role Phone Darryl Pizano DOdavidradha Gupta Primary Care Physician Encounter [facility] Date(s): 12/28/21 - 05/10/[address] [address]- Attending Physician: Donald Murphy MD Admitting Physician: [...] to receive vaccine 2Admin Note: manufactured by [employer]ur Medications albuterol 0.042% inhalation solution 3 [...] 03/12/22 12:08:00 EST, Route to Pharmacy Electronically, [facility], Partial fill upon patient [...] 03/09/23 23:00:00 EST, 03/12/22 12:09:00 EST, Syrup, [facility], Partial fill upon patient [...] 03/09/23 23:00:00 EST, 03/12/22 12:10:00 EST, Patch, [facility], Partial fill upon patient [...] tablet, 0 Refills, Maintenance, 04/02/20 9:29:00 EST, [facility], Partial fill upon patient [...] 03/12/22 12:06:00 EST, Route to Pharmacy Electronically, [facility], Partial fill uponpatient request if [...] 06/21/18 11:05:15 EDT, Route to Pharmacy Electronically, [id number], [facility] Start Date: 06/21/18 Status: Ordered Ventolin [...] WITH PROLONGED DEPRESSIVE REACTION Confirmed 02/03/07 Active [facility] [place] Team Senior Level Patient Confirmed Active ASTHMA [...] Chanelle Hernandez RN Position: [facility] AMB Nurse Member Role: Primary Care Nurse Name: Estelle García RN Position: [facility] RN Member Role: Primary Care Nurse Name: Deanne Rangel RN Position: [facility] RN Member Role: Primary Care Nurse Name: Carine Jimenez RN Position: [facility] SN RN [...] Care Nurse Name: Deonna Beatty RN Position: [facility] RN Member Role: Primary Care Nurse Name: Roque Villasenor MD Position: [facility] Renal MD Member Role: Lifetime Consulting Physician Address: Address: [address] [place] [address], [address] [facility] [place] [address]- Name: Lashon Lovell RN Position: [facility] SN RN Member Role: Primary Care Nurse Name: Kristi Giraldo RN Position: [facility] RN Supv Member Role: Primary Care Nurse Name: Jerrod Casarez RN Position: [facility] RN Member Role: Primary Care Nurse Name: Shane Riley RN Position: [facility] RN Member Role: Primary Care Nurse Name: Isac Plascencia RN Position: [facility] RN Member Role: Primary Care Nurse Name: Rosalva Martin RN Position: [facility] RN Member Role: Primary Care Nurse Name: Sheela Matt RN Position: [facility] RN Member Role: Primary Care Nurse Name: Armida Ochoa RN Position: [facility] RN Member Role: Primary Care Nurse Name: Felipa Diehl RN Position: [facility] HBO Wound Member Role: Primary Care Nurse Name: Evelin Powell RN Position: [facility] AMB Nurse Member Role: Primary Care Nurse Name: Donald Murphy MD Position: [facility] Renal MD Member Role: Lifetime Consulting Physician Address: Address: [address] [place] [address] [address] [facility] [place] [address]- Name: Deonna Pendleton RN Position: [facility] RN Member Role: Primary Care Nurse Name: Pili Kaba RN Position: [facility] RN Member [...] Medicine) Member Role: PCP Address: Address: [address] [place] [address]- Name: Ning Rolon RN [facility] Role: Primary Care Nurse Address: Address: [address] [place] [address]- [place] Name: Siomara Patricia RN Position: [facility] PCO RN [...] Yarely Richards RN Position: [facility] [employer] Member Role: Primary Care Nurse Name: Oralia [...] Lisa Blanton RN Position: [facility] [employer] Member Role: Primary Care Nurse Name: Joel Blanton RN Position: [facility] RN Member Role: Primary Care Nurse Name: Danica Stuart RN Position: [facility] AMB Nurse Member Role: Primary Care Nurse Name: Virginia Bacon RN Position: [facility] RN Member Role: Primary Care Nurse Name: Shruthi Ray RN Position: [facility] Onco RN Member Role: Primary Care Nurse Name: Abbe Choe RN Position: [facility] RN Sara Member Role: Primary Care Nurse Name: Farideh Cat LPN Position: [facility] RN Member Role: Primary Care Nurse Name: Janis Morris RN Position: [facility] [employer] Member Role: Primary Care Nurse Name: Darrian Chang RN Position: [facility] [employer] Member Role: Primary Care Nurse Name: Josef Woods RN Position: [facility] RN Member Role: Primary Care Nurse Name: Siomara Raphael RN Position: [facility] RN Member Role: Primary Care Nurse Name: Jerry Mcneill RN Position: [facility] RN Member Role: Primary Care Nurse Care Team Related Persons Name: IVAN VILLASENOR Address: [place] [address] Name: REYNALDO KAUR Address: home [address] [place] [address] Name: EMMA SERRANO Address: home [address] [address] Name: PATRICK MATA Address: home [address] [place] [address] Name: FARIDEH POPE Address: [place] [address]
--- OUTSIDE RECORDS SUMMARY | 2022-08-31 01:20 | XMS_ITS | Continuity of Care Document ---
Author Name Unknown Organization [facility] Address [address] [place] [address]- Care Team Providers Care Electro Mechanical Assembler Name Role Phone JericaChaparrita apple DO Primary Care Physician ( [phone] Encounter [facility] Date(s): 05/11/20 - 06/10/20 [facility] [address] [place], [place] [address] Allergies, Adverse Reactions, Alerts Substance [...] 1 02/02/07 Given 1Admin Note: manufactured by [employer] P[employer] Medications albuterol 0.042% inhalation solution 3 [...] Refills, Maintenance, 04/03/20 13:23:00 EST, Solution, [id number], Partial fill upon patient request if the [...] 0 Refills, Soft Stop, 04/09/20 13:16:00 EST, [facility], Partial fill upon patient request if [...] 1 tab for less severe pain, # 28tablet, 0 Refills, Maintenance, 06/09/20 22:22:00 EDT, Tablet, [facility] #[id number], Partial fill upon patient request if the prescription is for a sched... Start Date: 06/09/20 Status: Ordered oxyCODONE 20 mg oral tablet, [...] 08/30/17 8:21:42 EDT, Route to Pharmacy Electronically, [id number], [facility] #[id number] Start Date: 08/30/17 Status: Ordered Tums 500 mg oral tablet, chewable 500 mg, 1, tablet, Chew, Every 4 hours, PRN, # 180 tablet, Refills 0, Tot. Refills 0, Maintenance, Dyspepsia, 06/21/18 11:05:15 EDT, Route to Pharmacy Electronically, [id number], [facility] [...] WITH PRO LONGED DEPRESSIVE REACTION(Confirmed) 02/03/07 Active [facility] Team Senior Level [...]
--- OUTSIDE RECORDS SUMMARY | 2022-08-31 01:20 | XMS_ITS | Continuity of Care Document ---
Author Name Unknown Organization [facility] ter Address [address] [place] [address]- Care Team Providers Care Emergency Medical Service Manager Name Role Phone Darryl Pizano DOdavidradha Gupta Primary Care Physician Encounter [facility] Date(s): 12/28/21 - 03/26/[address] [address]- Attending Physician: Donald Murphy MD Admitting Physician: [...] to receive vaccine 2Admin Note: manufactured by [employer] Medications albuterol 0.042% inhalation solution 3 [...] 03/12/22 12:08:00 EST, Route to Pharmacy Electronically, [facility], Partial fill upon patient [...] 03/09/23 23:00:00 EST, 03/12/22 12:09:00 EST, Syrup, [facility], Partial fill upon patient [...] 03/09/23 23:00:00 EST, 03/12/22 12:10:00 EST, Patch, [facility], Partial fill upon patient [...] tablet, 0 Refills, Maintenance, 04/02/20 9:29:00 EST, [facility], Partial fill [...] 03/12/22 12:06:00 EST, Route to Pharmacy Electronically, [facility], Partial fill uponpatient request if the [...] 06/21/18 11:05:15 EDT, Route to Pharmacy Electronically, [id number], [facility] Start Date: 06/21/18 Status: Ordered Vitamin [...] WITH PROLONGED DEPRESSIVE REACTION Confirmed 02/03/07 Active [facility] [place] Team Senior Level Patient Confirmed Active ASTHMA [...] Care Nurse Name: Deanna Garcia RN Position: [facility] RN Member Role: Primary Care Nurse Name: Fanny Mixon RN Position: [facility] ED RN W/OE and Tasks Member Role: Primary Care Nurse Name: María Ashford RN Position: [facility] AMB Nurse Member Role: Primary Care Nurse Name: Chanelle Hernandez RN Position: [facility] PCO RN Member Role: Primary Care Nurse Name: Estelle García RN Position: [facility] RN Member Role: Primary Care Nurse Name: Deanne Rangel RN Position: [facility] RN Member Role: Primary Care Nurse Name: Carine Jimenez RN Position: [facility] SN [...] Role: Lifetime Consulting Physician Address: Address: [address] [place] [address], [address] [facility] [place] [address]- Name: Lashon Lovell RN [facility] [...] Care Nurse Name: Deonna Murillo RN Position: [facility] RN Member Role: Primary Care Nurse Name: Felipa Diehl RN Position: [facility] HBO Wound Member Role: Primary Care Nurse Name: Evelin Powell RN Position: [facility] AMB Nurse Member Role: Primary Care Nurse Name: Deonna Pendleton RN [facility] Schwartz RN Position: [facility] RN [...] (General Medicine) Member Role: PCP Address: Address: [address] [place] [address] [place] [address]- Name: Ning Rolon RN Position: [facility] RN Member Role: Primary Care Nurse Name: Rubi Carrasco RN Position: [facility] SN RN Member Role: Primary Care Nurse Name: Lauryn Holden RN Position: [facility] RN Member Role: Primary Care Nurse Name: Shen Silvestre RN Position: [facility] RN [...] Member Role: Primary Care Nurse Address: Address: [address] [place] [address]- Name: Siomara Patricia RN Position: [facility] PCO RN Member Role: Primary Care Nurse Name: Neeta Painter RN Position: [facility] RN Member Role: Primary Care Nurse Name: Edith Drummond RN Position: [facility] RN [...] Care Nurse Name: Yarely Richards RN Position: [facility] Hospital Pattern Setter Member Role: Primary Care Nurse Name: Oralia [...] RN Member Role: Primary Care Nurse Name: Lsia Blanton RN Position: [facility] Pattern Setter Member Role: Primary Care Nurse Name: Danica Stuart RN Position: [facility] AMB Nurse Member Role: Primary Care Nurse Name: Virginia Bacon RN Position: [facility] RN Member Role: Primary Care Nurse Name: Shruthi Ray RN Position: [facility] RN Member Role: Primary Care Nurse Name: Abbe Choe RN Position: [facility] RN Supv Member Role: Primary Care Nurse Name: Farideh Cat LPN Position: [facility] RN Member Role: Primary Care Nurse Name: Janis Morris RN Position: [facility] Pattern Setter Member Role: Primary Care Nurse Name: Darrian Chang RN Position: [facility] Pattern Setter Member Role: Primary Care Nurse Name: Josef Woods RN Position: [facility] RN Member Role: Primary Care Nurse Name: Siomara Raphael Position: [facility] RN Member Role: Primary Care Nurse Name: Jerry Mcneill RN Position: [facility] RN Member Role: Primary Care Nurse Care Team Related Persons Name: IVAN VILLASENOR Address: [place] [address] Name: REYNALDO KAUR Address: [address] [place] [address] Name: EMMA SERRANO Address: home [address] [address] Name: PATRICK MATA Address: home [address] [place] [address] Name: FARIDEH POPE Address: [place] [address]
[2022-08-31 01:41] LABS: Alanine Aminotransferase 13 U/L (0-31); Alkaline Phosphatase 113 U/L (39-117); Anion Gap 14 (12-20); Aspartate Amino Transferase 15 U/L (5-31); Bilirubin Direct 0.2 mg/dL (0.0-0.5); Bilirubin Total 0.8 mg/dL (0.0-1.0); Blood Urea Nitrogen 10 mg/dL (9-16); Calcium 10.1 mg/dL (8.4-10.2); Carbon Dioxide 26 mmol/L (22-29); Chloride 99 mmol/L (96-108); Estimated Glomerular Filt Rate > 60; Glucose Random 265 mg/dL (60-115); Lipase 10 U/L (8-78); Potassium 3.7 mmol/L (3.3-5.1); Sodium 135 mmol/L (135-145); Total Protein 7.6 g/dL (6.5-8.0)
[2022-08-31 01:42] LABS: Magnesium 1.3 mg/dL (1.6-2.6)
[2022-08-31 02:39] VITALS: BP 171/94; PULSE 88; RESP 18; TEMP 36.4; O2SAT 99
[2022-08-31] MEDS: HYDROmorphone HCl 2 MG/ML VIAL IVPUSH (02:42)
[2022-08-31] MEDS: ondansetron HCL 4 MG/2 ML VIAL IVPUSH (02:42)
[2022-08-31] MEDS: Magnesium Sulfate/H2O 2 GM/50 ML PIGGYBACK IV (02:43)
[2022-08-31] MEDS: diphenhydrAMINE HCL 50 MG/ML VIAL 25 MG IVPUSH (02:43)
== END 2022-08-31 04:05 | disposition home or self-care (01) ==
PROVIDERS: Physician Assistant Medical; Emergency Provider Emergency Medicine; PCP Internal Medicine
DX: N23 Unspecified renal colic (principal); E83.42 Hypomagnesemia; Z79.899 Other long term (current) drug therapy
CPT/HCPCS: 36415; 74176; 80048; 80076; 81001; 83690; 83735; 85025; 96374; 96375; 99284; J1170; J1200; J2405; J3475

== ENCOUNTER 2022-11-29 12:24 | Emergency (ER) | payer MEDICARE, SELFPAY ==
--- NOTE | ~2022-11-29 | US_ITS ---
EXAMINATION: US ABDOMEN LIMITED CLINICAL INFORMATION: Right upper quadrant pain.? CBD dilatation. Prior cholecystectomy.. COMPARISON: CT scan abdomen and pelvis 08/30/2022 TECHNIQUE: Real-time imaging of the right upper quadrant abdominal viscera. FINDINGS: PANCREAS: Normal. LIVER: The liver is normal in size. The liver contour is normal. There is diffuse mild increased liver parenchymal echogenicity, consistent with mild hepatic steatosis. No focal hepatic lesion. There is no intrahepatic biliary duct dilatation seen. GALLBLADDER: Surgically absent. COMMON BILE DUCT: Normal in caliber measuring 0.6 cm in diameter. RIGHT KIDNEY: Normal. No hydronephrosis. No renal calculi or focal parenchymal lesions. The kidney measures 11.1 cm in maximum dimension. FREE FLUID: None. US/US abdomen limited IMPRESSION: 1. Mild hepatic steatosis. 2. Prior cholecystectomy. 3. Normal caliber common bile duct
--- NOTE | ~2022-11-29 | XR_ITS ---
EXAMINATION: XR CHEST CLINICAL INFORMATION: Shortness of breath COMPARISON: 03/05/2014. TECHNIQUE: 2 views of the chest were obtained. FINDINGS: The cardiomediastinal silhouette is within normal limits and stable. A central catheter terminates at the lower SVC. There is no focal lung consolidation or pleural effusion. The bony structures and soft tissues are unremarkable. XR/XR chest 2V IMPRESSION: No active cardiopulmonary disease.
[2022-11-29 12:36] VITALS: BP 173/103; PULSE 73; RESP 22; TEMP 36.1; O2SAT 99; BMI 52.4
--- NOTE | 2022-11-29 12:42 | ED.GENADULT ---
HPI - General Adult General Chief complaint: Abdominal Pain Stated complaint: sob side and abd pain Time Seen by Provider: 11/29/22 16:33 Source: patient Mode of arrival: ambulatory Limitations: no limitations History of Present Illness HPI narrative: Patient 46 years old with history of chronic abdominal pain on TPN for short gut syndrome, sacroiliitis comes here with chronic right flank pain was seen here before few months ago for the same patient does have neurogenic bladder comes in for right flank and right upper quadrant pain patient had ultrasound prior to my evaluation which is negative for acute patient status post cholecystectomy patient is on Dilaudid 4 mg every 6 hours for the pain pain is localized mostly in the right flank right upper abdomen for last 2 weeks get worse on movement no relation with food as chronic nausea says that she has Dilaudid at home which is not helping around no urinary complaints Related Data Home Medications Medication Instructions Recorded Confirmed fluticasone furoate 100 1 inh inhalation DAILY 03/06/20 mcg-vilanterol 25 mcg/dose inhalation powder (Breo Ellipta) albuterol sulfate 1.25 mg/3 mL mg inhalation Q6-8H PRN 05/19/20 solution for nebulization bisacodyl 5 mg tablet,delayed 5 mg PO DAILY 05/19/20 release diphenhydramine HCl 50 mg capsule 50 mg PO BEDTIME 05/19/20 insulin aspart U-100 100 unit/mL unit subcut 05/19/20 (3 mL) subcutaneous pen insulin glargine 100 unit/mL (3 25 unit subcut BEDTIME 05/19/20 mL) subcutaneous pen lancets 28 gauge #100 ea 05/19/20 lorazepam 0.5 mg tablet 0.5 mg PO TID PRN 05/19/20 ondansetron 4 mg disintegrating 0 mg PO 05/19/20 tablet potassium chloride 8 mEq 8 meq PO DAILY 05/19/20 tablet,extended release scopolamine base 1 mg over 3 days 1 patch topical Q3D 05/19/20 transdermal patch simvastatin 40 mg tablet mg PO BEDTIME 05/19/20 Previous Rx's Medication Instructions Recorded duloxetine 20 mg capsule,delayed 20 mg PO DAILY #30 caps 03/04/20 release (Cymbalta) diclofenac sodium 1 % topical gel 2 g topical BID PRN pain #100 grams 03/06/20 Allergies Allergy/AdvReac Type Severity Reaction Status Date / Time fentanyl [FENTANYL] Allergy Severe LETHARGY Verified 11/29/22 12:36 iodine [IODINE] Allergy Severe HIVES Verified 11/29/22 12:36 latex [LATEX] Allergy Severe HIVES Verified 11/29/22 12:36 levofloxacin [From LEVAQUIN] Allergy Severe MOUTH Verified 11/29/22 12:36 SWELLING Penicillins [PENICILLINS] Allergy Severe SWELLING, Verified 11/29/22 12:36 ITCHY shellfish derived Allergy Severe SWELLING Verified 11/29/22 12:36 acetaminophen [From TYLENOL] Allergy Intermediate HIVES Verified 11/29/22 12:36 doxycycline [DOXYCYCLINE] Allergy Intermediate SWELLING Verified 11/29/22 12:36 nicotine [NICOTINE] Allergy Intermediate SWELLING Verified 11/29/22 12:36 pregabalin [From LYRICA] Allergy Intermediate LETHARGY, Verified 11/29/22 12:36 LOW BP, SWELLING amoxicillin Allergy Unknown unknown Verified 11/29/22 12:36 ceftriaxone Allergy Unknown unknown Verified 11/29/22 12:36 clarithromycin Allergy Unknown unknown Verified 11/29/22 12:36 [Omeclamox-Juan A] esomeprazole [Nexium] Allergy Unknown unknown Verified 11/29/22 12:36 famotidine [FAMOTIDINE] Allergy Unknown UNKNOWN, Verified 11/29/22 12:36 anaphylaxis Iodinated Contrast Media Allergy Unknown UNKNOWN Verified 11/29/22 12:36 [IV DYE, IODINE CONTAINING CONTRAST ] metoclopramide [Reglan] Allergy Unknown unknown Verified 11/29/22 12:36 morphine [MORPHINE] Allergy Unknown ANGIOEDEMA Verified 11/29/22 12:36 omeprazole [Omeclamox-Juan A] Allergy Unknown unknown Verified 11/29/22 12:36 ondansetron [Zofran] Allergy Unknown unknown Verified 11/29/22 12:36 penicillin V Allergy Unknown unknown Verified 11/29/22 12:36 From BUSPAR Allergy Intermediate RASH Uncoded 08/30/22 18:24 From ZOFRAN Allergy Intermediate HIVES Uncoded 08/30/22 18:24 Compazine Allergy Unknown unknown Uncoded 08/30/22 18:24 From Nexium Allergy Unknown UNKNOWN Uncoded 08/30/22 18:24 IV contrast dye Allergy Unknown unknown Uncoded 08/30/22 18:24 latex Allergy Unknown unknown Uncoded 08/30/22 18:24 From COMPAZINE AdvReac Intermediate ANXIETY Uncoded 08/30/22 18:24 From REGLAN AdvReac Intermediate ANXIETY Uncoded 08/30/22 18:24 Review of Systems Review of Systems: Yes all other systems are reviewed and are negative [facility] Past Medical History Medical History Chronic pain syndrome Chronic pelvic pain in female Chronic abdominal pain Morbid obesity Spondylosis of lumbosacral spine with radiculopathy Disc degeneration, lumbar Sacroiliitis Social History Social History Advance Directives: No Advance Directives Information Provided: No Physical Exam ED Vital Signs: Vital Signs - 24 hr 11/29/22 12:36 11/29/22 16:28 Temperature 96.9 F Pulse Rate 73 68 Respiratory Rate 22 H 20 Blood Pressure 173/103 H 165/108 H Pulse Oximetry 99 100 Oxygen Delivery Method Room Air Room Air BMI result Body Mass Index 52.4 Appearance: Alert. Oriented X3. No acute distress. Obese Eyes: No pallor or icterus ENT: Pharynx normal. Oral Mucosa moist Neck: Normal inspection. Neck supple. CVS: Normal heart rate and rhythm. Pulses normal. Respiratory: No respiratory distress. Equal air entry bilateral, no wheezing/rales/rhonchi Abdomen: Soft diffuse tenderness right upper quadrant right flank given with touching the skin Bowel sounds are present, no mass palpable, R CVA tenderness Skin: Skin warm and dry. Normal skin color. Normal skin turgor. Extremities: No lower extremity edema. No calf tenderness Neuro: Oriented X 3. No motor deficit. No sensory deficit.No cerebellar signs , cranial nerves II-XII intact Course Course Course Narrative: RME: 47 yold female presents to the ED for RUQ and right flank pain for couple of days with and now SOB. patient states no recent trauma, fever, or chills. patient had gallbladder removed. labs, chest xray, and US gall bladder ordered Medications Administered Discontinued Medications Generic Name Dose Route Start Last Admin Trade Name Freq PRN Reason Stop Dose Admin Hydromorphone HCl 2 mg 11/29/22 17:00 11/29/22 17:11 Hydromorphone Hcl 2 Mg/Ml Vial IM 11/29/22 17:01 2 mg ONCE ONE Administration Protocol Medical Decision Making Medical Decision Making MDM Narrative: Patient nonspecific right flank pain with which is chronic had a CT scan done in 09/05 which was negative for acute had a sonogram done which is also normal today CBC is normal patient already on pain management will check the UA UA negative patient feeling much better after Dilaudid follow with PCP likely musculoskeletal pain Differential Diagnosis Differential Diagnoses: The differential diagnosis associated with the presentation includes Chronic pain syndrome/kidney stone/UTI/obstipation/pancreatitis Lab Data [facility] Lab Attestation statement: I reviewed the patient's lab results. 11/29/22 16:39 11/29/22 16:39 Labs: Lab Results 11/29/22 11/29/22 Range/Units 16:39 17:09 WBC 5.6 (4.8-10.8) X10*3/uL RBC 4.40 (4.20-5.50) X10*6/uL Hgb 12.5 (12.0-16.0) g/dl Hct 36.5 L (37.0-47.0) % MCV 83.0 (80.0-98.0) fL MCH 28.4 (27.0-33.0) pg MCHC 34.2 (31.0-35.0) g/dl RDW 12.9 (11.0-16.0) % Plt Count 279 (160-400) X10*3/uL MPV 9.5 (9.4-12.3) fL Immature Gran % (Auto) 0.2 (0.0-0.4) % Neut % (Auto) 51.9 (45-73) % Lymph % (Auto) 34.2 (20-40) % Nash % (Auto) 9.5 (2-11) % Eos % (Auto) 3.8 (0-4) % Baso % (Auto) 0.4 (0-2) % Lymph # (Auto) 1.9 (1.2-4.9) X10*3/uL Nash # (Auto) 0.5 (0.1-1.2) X10*3/uL Eos # (Auto) 0.2 (0.0-0.4) X10*3/uL Baso # (Auto) 0.0 (0.0-0.2) X10*3/uL Abs Immat Gran (auto) 0.01 (0.00-0.03) X10*3/uL Absolute Neuts (auto) 2.9 (2.0-8.3) x10*3/uL Absolute Nucleated RBC 0.000 (0.0-0.012) X10*3/uL Nucleated RBC % (auto) 0.0 (0.0-0.2) /100WBC PT 11.6 (11.1-13.3) SEC INR 1.0 (0.9-1.1) APTT 29.4 (26.0-36.4) SEC Sodium 137 (135-145) mmol/L Potassium 3.8 (3.3-5.1) mmol/L Chloride 100 (96-108) mmol/L Carbon Dioxide 28 (22-29) mmol/L Anion Gap 13 (12-20) BUN 10 (9-16) mg/dL Creatinine 0.64 (0.5-1.4) mg/dL Estim Creat Clear Calc 132.6 Estimated GFR > 60 Random Glucose 171 H (60-115) mg/dL Calcium 9.6 (8.4-10.2) mg/dL Total Bilirubin 0.7 (0.0-1.0) mg/dL AST 14 (5-31) U/L ALT 12 (0-31) U/L Alkaline Phosphatase 97 (39-117) U/L Total Protein 6.9 (6.5-8.0) g/dL Albumin 3.7 (3.5-5.0) g/dL Lipase 11 (8-78) U/L Beta HCG, Quant 3 mIU/mL Urine Color Yellow Urine Appearance Clear Urine pH 6.0 (5.0-9.0) Ur Specific [place] 1.025 (1.005-1.025) Urine Protein Negative (Neg-Trace) mg/dL Urine Glucose (UA) 100 H (Negative) mg/dL Urine Ketones Negative (Negative) mg/dL Urine Blood Negative (Negative) Urine Nitrite Negative (Negative) Ur Leukocyte Esterase Negative (Negative) Discharge Plan Discharge Clinical Impression: Chronic pain syndrome Patient Disposition: Home, Self-Care Instructions: Chronic Abdominal Pain (ED) Additional Instructions: Continue pain medication as prescribed by your PCP per agreement and follow-up with your PCP Prescriptions: No Action duloxetine [Cymbalta] 20 mg capsule,delayed release(DR/EC) 20 mg PO DAILY Qty: 30 4RF diclofenac sodium 1 % gel 2 g topical BID PRN (Reason: pain) Qty: 100 3RF Interventions: ED Discharge Assessment Last Done: 11/29/22 18:05 Discharge Date/Time: 11/29/22 18:05
[2022-11-29 16:28] VITALS: BP 165/108; PULSE 68; RESP 20; O2SAT 100
[2022-11-29 16:45] LABS: MANUAL DIFF FLAG NO
[2022-11-29 16:46] LABS: Basophils Percent Auto 0.4 % (0-2); Eosinophils Absolute Auto 0.2 X10*3/uL (0.0-0.4); Eosinophils Percent Auto 3.8 % (0-4); Hematocrit 36.5 % (37.0-47.0); Hemoglobin 12.5 g/dl (12.0-16.0); Imm Gran Abs Auto 0.01 X10*3/uL (0.00-0.03); Imm Gran Pct Auto 0.2 % (0.0-0.4); Lymphocytes Absolute Auto 1.9 X10*3/uL (1.2-4.9); Lymphocytes Percent Auto 34.2 % (20-40); Mean Corpuscular HGB Conc 34.2 g/dl (31.0-35.0); Mean Corpuscular Hemoglobin 28.4 pg (27.0-33.0); Mean Platelet Volume 9.5 fL (9.4-12.3); Monocytes Absolute Auto 0.5 X10*3/uL (0.1-1.2); Monocytes Percent Auto 9.5 % (2-11); Neutrophils Absolute Auto 2.9 x10*3/uL (2.0-8.3); Neutrophils Percent Auto 51.9 % (45-73); Platelet Count 279 X10*3/uL (160-400); Red Cell Distribution Width 12.9 % (11.0-16.0); White Blood Count 5.6 X10*3/uL (4.8-10.8)
[2022-11-29 16:55] LABS: Prothrombin Time 11.6 SEC (11.1-13.3)
[2022-11-29 16:57] LABS: Partial Thromboplastin Time 29.4 SEC (26.0-36.4)
[2022-11-29 17:06] LABS: Alanine Aminotransferase 12 U/L (0-31); Albumin Level 3.7 g/dL (3.5-5.0); Alkaline Phosphatase 97 U/L (39-117); Anion Gap 13 (12-20); Aspartate Amino Transferase 14 U/L (5-31); Bilirubin Total 0.7 mg/dL (0.0-1.0); Blood Urea Nitrogen 10 mg/dL (9-16); Calcium 9.6 mg/dL (8.4-10.2); Carbon Dioxide 28 mmol/L (22-29); Chloride 100 mmol/L (96-108); Creatinine Clr Calc Pharmacy 132.6; Estimated Glomerular Filt Rate > 60; Glucose Random 171 mg/dL (60-115); Lipase 11 U/L (8-78); Potassium 3.8 mmol/L (3.3-5.1); Sodium 137 mmol/L (135-145); Total Protein 6.9 g/dL (6.5-8.0)
[2022-11-29 17:07] LABS: HCG Quantitative 3 mIU/mL
[2022-11-29] MEDS: HYDROmorphone HCl 2 MG/ML VIAL IM (17:11)
--- NOTE | 2022-11-29 17:16 | PC.NURSE ---
pt aox4, ambulatory at baseline. reporting right sided flank pain radiating to abdomen after reaching and stretching to grab toilet paper when using the bathroom. medicated for pain per mar with 2mg IM dilaudid. labs done, urine also sent to lab. results pending
[2022-11-29 17:22] LABS: Appearance Urine Clear; Color Urine Yellow; Glucose Urine UA 100 mg/dL (Negative); Leukocyte Esterase Urine Negative (Negative); Nitrite Urine Negative (Negative); Specific Gravity - Urine 1.025 (1.005-1.025); Urine Blood Negative (Negative); Urine Ketones Negative (Negative); Urine Protein Negative (Neg-Trace)
--- OUTSIDE RECORDS SUMMARY | 2022-11-29 17:34 | XMS_ITS | Continuity of Care Document ---
Author Name Unknown Organization [facility] Address [address], [address] [place] [address]- Care Team Providers Care Exam Proctor Name Role Phone Chaparrita Pizano DO Primary Care Physician Encounter [facility] Date(s): 06/22/22 - 09/03/22 [facility] [facility] [address] [place] [address]- Attending Physician: Cristin Burns MD Admitting Physician: Cristin Burns MD Referring Physician: Felipa SHERIFF, Shanika Pennington Allergies, Adverse Reactions, Alerts Substance Reaction Severity [...] to receive vaccine 2Admin Note: manufactured by [employer] Medications albuterol CFC free 90 mcg/inh inhalation [...] 03/12/22 12:08:00 EST, Route to Pharmacy Electronically, [facility], Partial fill upon patient [...] 03/09/23 23:00:00 EST, 03/12/22 12:10:00 EST, Patch, [facility], Partial fill upon patient [...] tablet, 0 Refills, Maintenance, 04/02/20 9:29:00 EST, [facility], Partial fill upon patient request if the prescription is for a schedule II opioid drug., 154.94, cm, 04/02/20 8... Start Date: 04/02/20 Status: Ordered oxybutynin 5 mg/5 mL oral syrup 5 mL = 5 mg, By Mouth, 3 times a day, for bladder spasm, # 450 mL, 0 Refills, Maintenance, 06/16/2310:29:00 EDT, Syrup, [facility] #[id number], Partial fill [...] 03/12/22 12:06:00 EST, Route to Pharmacy Electronically, [facility], Partial fill uponpatient request [...] 06/21/18 11:05:15 EDT, Route to Pharmacy Electronically, [id number], [facility] 3 Start Date: 06/21/18 Status: [...] WITH PROLONGED DEPRESSIVE REACTION Confirmed 02/03/07 Active [facility] Team Senior Level Patient Confirmed Active ASTHMA [...] Team Personnel Name: Lola Belcher RN Position: [facility] RN Member Role: Primary Care Nurse Name: Jose Enrique Saul RN Position: [facility] RN Member Role: Primary Care Nurse Name: Symone Mckinnon RN Position: [facility] RN Member Role: Primary Care Nurse Name: Carolyn Pelaez RN Position: [facility] RN Member Role: Primary Care Nurse Name: Fanny Mixon RN Position: [facility] ED RN W/OE and Tasks Member Role: Primary Care Nurse Name: María Ashford RN Position: [facility] AMB Nurse Member Role: Primary Care Nurse Name: Chanelle Hernandez RN Position: [facility] AMB Nurse Member Role: Primary Care Nurse Name: Estelle García RN Position: [facility] RN Member Role: Primary Care Nurse Name: Deanne Rangel RN Position: [facility] RN Member Role: Primary Care Nurse Name: Carine Jimenez RN Position: [facility] SN RN Member Role: Primary Care Nurse Name: Jenelle Campo RN Position: [facility] RN Member Role: Primary Care Nurse Name: Keyla Godwin RN Position: [facility] RN Member Role: Primary Care Nurse Name: Yeimi Devine RN Position: [facility] RN Member Role: Primary Care Nurse Name: Mary Yan RN Position: [facility] RN Member Role: Primary Care Nurse Name: Iliana Pop RN Position: [facility] RN Member Role: Primary Care Nurse Name: Clovis Wang RN Position: [facility] RN Member Role: Primary Care Nurse Name: Alcides Dueñas RN Position: [facility] RN Member Role: Primary Care Nurse Name: Lisa Beatty Position: [facility] Outreach Member Role: Lifetime Consulting Physician Name: Armida Beatty RN Position: [facility] RN Member Role: Primary Care Nurse Name: Deonna Beatty RN Position: [facility] RN Member Role: Primary Care Nurse Name: Roque Villasenor MD Position: [facility] Renal MD Member Role: Lifetime Consulting Physician Address: Address: [address] [place] [address], [address] [facility] [place] [address]- Name: Lashon Lovell RN Position: [facility] SN RN Member Role: Primary Care Nurse Name: Kristi Giraldo RN Position: [facility] RN Supv Member Role: Primary Care Nurse Name: Jerrod Casarez RN Position: [facility] RN Member Role: Primary Care Nurse Name: Shane Riley RN Position: [facility] RN Member Role: Primary Care Nurse Name: Isac Plascencia RN Position: [facility] RN Member Role: Primary Care Nurse Name: Rosalva Martin RN Position: [facility] RN Member Role: Primary Care Nurse Name: Sheela Matt RN Position: [facility] RN Member Role: Primary Care Nurse Name: Armida Ochoa RN Position: [facility] RN Member Role: Primary Care Nurse Name: Felipa Diehl RN Position: [facility] HBO Wound Member Role: Primary Care Nurse Name: Evelin Powell RN Position: [facility] AMB Nurse Member Role: Primary Care Nurse Name: Donald Murphy MD Position: [facility] Renal MD Member Role: Lifetime Consulting Physician Address: Address: [address] [place] [address] [address] [facility] [place] [address]- Name: Pili Kaba RN Position: [facility] ED RN W/OE and Tasks Member Role: Primary Care Nurse Name: Alejandro Yanes RN Position: [facility] RN Member Role: Primary Care Nurse Name: Stacey Díaz RN Position: [facility] SN RN Member Role: Primary Care Nurse Name: Jac Reese RN Position: [facility] RN Member Role: Primary Care Nurse Name: Erica Maya Position: [facility] TA Member Role: Lifetime Consulting Physician Name: Celestine Schwartz RN Position: [facility] RN Member Role: Primary Care Nurse Name: Neeta Carpenter RN Position: [facility] RN Member Role: Primary Care Nurse Name: Susie Estrada RN Position: [facility] RN Member Role: Primary Care Nurse Name: Inna Cantor RN Position: [facility] RN Member Role: Primary Care Nurse Name: Chaparrita Pizano DO Position: [facility] Physician (General Medicine) Member Role: PCP Address: Address: [address] [place] [id number]- Name: Ning Rolon RN Position: [facility] RN Member Role: Primary Care Nurse Name: Rubi Carrasco RN Position: [facility] SN RN Member Role: Primary Care Nurse Name: Lauryn Holden RN Position: [facility] RN Member Role: Primary Care Nurse Name: Jones Cervantes RN Position: [facility] RN Member Role: Primary Care Nurse Name: Olivia Caputo RN Position: [facility] RN Member Role: Primary Care Nurse Name: Brooklyn Jim RN Position: [facility] RN Member Role: Primary Care Nurse Name: Kimberly Santoro RN Position: [facility] RN Member Role: Primary Care Nurse Name: Haley Diamond RN Position: [facility] RN Member Role: Primary Care Nurse Name: Ashley Meléndez NP Position: [facility] PCO Associate Professional Member Role: Primary Care Nurse Address: Address: [address] [place] [address]- Name: Siomara Patricia RN Position: [facility] AMB Nurse Member Role: Primary Care Nurse Name: Neeta Painter RN Position: [facility] RN Member Role: Primary Care Nurse Name: Bailey Espinal RN Position: [facility] AMB Nurse Member Role: Primary Care Nurse Name: Brooklyn Ramsey RN Position: [facility] RN Member Role: Primary Care Nurse Name: Keyla Bright RN Position: [facility] RN Member Role: Primary Care Nurse Name: Beverley Tatum RN Position: [facility] RN Member Role: Primary Care Nurse Name: Mainor Devries RN Position: [facility] RN Member Role: Primary Care Nurse Name: Yarely Richards RN Position: [facility] Hospital Activity Therapy Specialist Member Role: Primary Care Nurse Name: Oralia Massey RN Position: [facility] RN Member Role: Primary Care Nurse Name: Cassie Villanueva RN Position: [facility] RN Member Role: Primary Care Nurse Name: Taiwo Mcgregor RN Position: [facility] RN Member Role: Primary Care Nurse Name: Cally Funes RN Position: [facility] SN RN Member Role: Primary Care Nurse Name: Marina Willard Position: [facility] AMB [place] Member Role: Primary Care Nurse Name: Lisa Blanton RN Position: [facility] Activity Therapy Specialist Member Role: Primary Care Nurse Name: Joel Blanton RN Position: [facility] RN Member Role: Primary Care Nurse Name: Danica Stuart RN Position: [facility] AMB Nurse Member Role: Primary Care Nurse Name: Virginia Bacon RN Position: [facility] RN Member Role: Primary Care Nurse Name: Shruthi Ray RN Position: [facility] Onco RN Member Role: Primary Care Nurse Name: Abbe Choe RN Position: [facility] RN Supv Member Role: Primary Care Nurse Name: Farideh Cat LPN Position: [facility] RN Member Role: Primary Care Nurse Name: Janis Morris RN Position: [facility] Activity Therapy Specialist Member Role: Primary Care Nurse Name: Darrian Chang RN Position: [facility] Activity Therapy Specialist Member Role: Primary Care Nurse Name: Josef Woods RN Position: [facility] RN Member Role: Primary Care Nurse Name: Siomara Raphael RN Position: [facility] RN Member Role: Primary Care Nurse Name: Jerry Mcneill RN Position: [facility] RN Member Role: Primary Care Nurse Care Team Related Persons Name: CHERELLE IVAN Address: [place] [address] Name: REYNALDO KAUR Address: [address] [place] [address] Name: EMMA SERRANO Address: [address] [address] Name: PATRICK MATA Address: [address] [place] [address] Name: FARIDEH POPE Address: [place] [address]
--- OUTSIDE RECORDS SUMMARY | 2022-11-29 17:35 | XMS_ITS | Continuity of Care Document ---
Author Name Unknown Organization [facility] ter Address [address] [place] [id number]- Care Team Providers Care Workers' Compensation Claims Supervisor Name Role Phone Chaparrita Pizano DO Primary Care Physician Encounter [facility] Date(s): 09/08/22 - 09/14/[address] [address]- Encounter Diagnosis SBO (small bowel obstruction)(Final) - 09/08/22 Abdominal pain(Final) - 09/08/22 Nausea & vomiting(Final) - 09/08/22 Diarrhea(Final) - 09/08/22 Discharge Disposition: A-D/C Home Attending Physician: July HUSSEIN MD, Adin T Admitting Physician: July HUSSEIN MD, Shade T Referring Physician: Not on Staff, Referring MD [...] to receive vaccine 2Admin Note: manufactured by [employer] Medications albuterol CFC free 90 mcg/inh inhalation [...] 03/12/22 12:08:00 EST, Route to Pharmacy Electronically, [facility] [...] Start Date: 06/15/22 Status: Ordered Dilaudid Inj 0.5 mg, Injection, IV Push Slowly, Every 4 hours, PRN for Pain , Severe, Routine, 09/08/22 18:02:00EDT Start Date: 09/08/22 Stop Date: 09/14/22 Status: Discontinued DiphenhydrAMINE See Instructions, 50 mg IV Infusion, w/ zofran and pre med for mag infusion, 0 Refills, Maintenance, 09/10/22 17:41:00 EDT, Partial fill upon patient request if the prescription is for a schedule II opioid drug. Start Date: 09/10/22 Status: Ordered Ensure High Protein Ensure High [...] 03/09/23 23:00:00 EST, 03/12/22 12:10:00 EST, Patch, [facility], Partial fill upon patient request if... [...] opioid drug. Start Date: 06/08/22 Status: Ordered Metoprolol Inj 2.5 mg, Injection, IV Push Slowly, Hold for: HR less than 80 or SBP less than 110, 09/14/22 6:00:00EDT Start Date: 09/14/22 Stop Date: 09/14/22 Status: Completed NovoLOG FlexPen 100 units/mL subcutaneous solution See Instructions, Subcutaneous Injection, Use as per sliding scale, 5 Refills, Maintenance, 12/22/18 7:07:37 EST Start Date: 12/22/18 Stop Date: 01/21/19 Status: Ordered ondansetron 4 mg oral tablet, disintegrating = 4 mg, IV Push, Every 6 hours, PRN Nausea & Vomiting, # 90 tablet, 0 Refills, Maintenance, 04/02/20 9:29:00 EST, [facility], Partial fill upon patient request if the prescription is for a schedule II opioid drug., 154.94, cm, 04/02/20 8... Start Date: 04/02/20 Status: Ordered oxybutynin 5 mg/5 mL oral syrup 5 mL = 5 mg, By Mouth, 3 times a day, for bladder spasm, # 450 mL, 0 Refills, Maintenance, 06/16/2310:29:00 EDT, Syrup, [facility]/pharmacy #[id number], Partial fill upon patient request if the prescription is for a schedule II opioid drug., 155, cm, 06/16/22 7:2... Start Date: 06/16/22 Status: Ordered oxyCODONE 5 mg oral tablet 5 mg, Tablet, By Mouth, Every 4 hours, PRN for Pain , Moderate, Routine, 09/12/22 17:24:00 EDT Start Date: 09/12/22 Stop Date: 09/14/22 Status: Discontinued Pantoprazole Inj = 40 mg, IV Infusion, [...] 03/12/22 12:06:00 EST, Route to Pharmacy Electronically, [facility], Partial fill [...] 06/21/18 11:05:15 EDT, Route to Pharmacy Electronically, [id number], [facility] [...] WITH PROLONGED DEPRESSIVE REACTION Confirmed 02/03/07 Active [facility] Team Senior Level Patient Confirmed Active ASTHMA [...] Exam Date Time Procedure Performing Provider Status 09/14/22 7:20 AM IR End of Case Report Auth (Verified) IR End of Case Report * Exam Date Time Procedure Performing Provider Status 09/14/22 7:20 AM IR Venous Access Device Change Auth (Verified) Notes: (IR Venous Access Device Change) Reason For Exam: Other: IR Venous Access Device Change Patient: VILMA SERRANO Study Date: 09/14/2022 Performing: Petr Jordan MD Referring: : 1975 Age: 47 Gender: FEMALE Pre-procedure diagnosis and Indication: Mini Polanco catheter placed by me as long ago was 10 March of this year reportedly not working. Reportedly both lumens blocked. Patient presents for catheter exchange. History of diabetes hypertension hyperlipidemia morbid obesity obstructive sleep apnea patient needs TPN fOLLOWING multiple abdominal surgeries Exam: Prior to the procedure, the patient was seen and the nature of the procedure explained along with its attendant risks and benefits to the patient . Informed consent was obtained from, the patient . The patient underwent a pre-anesthesia assessment. On completion of this it was determined the patient is Suitable for moderate sedation with as it turns out none was required.. The patient arrived in IR room 1 for a tunneled central venous catheter exchange PROCEDURE: The patient was positioned supine and secured with arm boards. The access site was evaluated, then prepped with chloraprep and draped in the usual sterile fashion. Patient received moderate sedation administered under my direct supervision.. I evaluated the immediately catheter. Both lumens aspirated satisfactorily. Contrast was injected and images archived. Both lumens flushed satisfactory. There is no evidence of a fibrin sheath. There is therefore nothing for me to fix. The catheter works well. There is no fibrin sheath to be disrupted there is no indication for cath change. The sterile field was maintained throughout the procedure and patient tolerated the procedure well with no complications of the procedure estimated blood loss was minimal Specimens/samples: no specimens or samples were sent for this procedure [facility] instructions sent in envelope with the patient Impression: Left-sided mini Polanco catheter check. No malfunction identified. Both lumens are patent. Both were satisfactory. No fibrin sheath. patient tolerated the procedure well with no complications of the procedure No indication for any intervention or revision. Fluoroscopy time and dose Total Fluoro Time: 0.2 mins Total dose 7 mGy Total DAP 78.2 - ?Gy/m2 Contrast used Contrast used: Omnipaque_300 7 ml's Local Anesthetic Lidocaine 1% w/ 4.2% sodium bicarbonate 10 ml's SQ Moderate sedation was provided From 07:37:00 to 08:03:00 Moderate Sedation Agent Dose Route Time By Fentanyl 25 mcg IV 07:37:00 BM Versed 0.5 mg IV 07:37:05 BM Fentanyl 50 mcg IV 07:45:45 BM Versed 1 mg IV 07:45:52 BM Signed By Petr Jordan MD On 09/14/2022 09:18:46 Petr Jordan MD Dictated By: Petr Jordan MD Dictated Date/Time: 09/14/22 7:20 am Reviewed By: Petr Jordan MD Signed By: Petr Jordan MD Signed Date/Time: 09/14/22 7:20 am Transcribed By: [facility] Transcribed Date/Time: 09/14/22 7:20 am * Exam Date Time Procedure Performing Provider Status 09/13/22 1:43 PM Chest Portable Ashish Heck (Verified) Notes: (Chest Portable) Reason For Exam: left IJV line placed by ok allie this check tip poisitoon;LinePlacement RESULT: Chest Portable Chest Portable Reason: Line Placement; left IJV line placed by ok allie check tip poisitoon; Clinical Question(s): Line Placement COMPARISON: Multiple prior examinations the most recent dated 06/07/2022. FINDINGS: LINES AND TUBES: Left IJ double-lumen Polanco catheter remains in place with its tip in the region of the caval a short junction in satisfactory position. LUNGS AND PLEURA: Clear lungs. Normal pulmonary vascularity. No pleural effusion. No pneumothorax. HEART, MEDIASTINUM AND LISA: Heart is normal in size. Normal mediastinal and hilar contour. BONES AND SOFT TISSUES: No acute abnormality. IMPRESSION: Left IJ double-lumen Polanco catheter remains in place unchanged in position. Clear lungs. No CHF seen. WSN: [id number] Ordering Physician: Petr Jordan Dictated By: Otis Kelly MD, V Dictated Date/Time: 09/13/22 4:08 pm Reviewed By: Otis Kelly MD, V Signed By: Otis Kelly MD, V Signed Date/Time: 09/13/22 4:08 pm Transcribed By: DEIDRE Transcribed Date/Time: 09/13/22 4:05 pm * Exam Date Time Procedure Performing Provider Status 09/13/22 12:09 PM Abdomen Comp Inc Dec ub and/or Erect Anahi Landeros; Esther (Verified) Notes: (Abdomen Comp Inc Decub and/or Erect) Reason For Exam: Other: RESULT: Abdomen Comp Inc Decub and/or Erect Abdomen Comp Inc Decub and/or Erect supine and standing views, 4 images total INDICATION/CLINICAL QUESTION: Reason: Other:; Clinical Question(s): Obstruction COMPARISON: 09/09/2022 FINDINGS: There is a substantial amount of residual contrast material within the colon. A normal bowel gas pattern is present. No bowel dilatation is apparent. No intramural gas. No evidence of pneumoperitoneum. Surgical clips in the right upper quadrant and evidence of anterior abdominal wall hernia repair with mesh. No mass, organomegaly, or unusual calcification. Lung bases are clear. No acute osseous abnormality. IMPRESSION: No evidence of bowel obstruction. Residual contrast material throughout much of the colon but decreased in amount from 09/09/2022. Status post cholecystectomy and abdominal wall hernia repair with mesh. WSN: [id number] Ordering Physician: Shane Perdaza Dictated By: Kris Winn MD Dictated Date/Time: 09/13/22 1:11 pm Reviewed By: Kris Winn MD Signed By: Kris Winn MD Signed Date/Time: 09/13/22 1:11 pm Transcribed By: DEIDRE Transcribed Date/Time: 09/13/22 1:09 pm * Exam Date Time Procedure Performing Provider Status 09/09/22 7:40 AM XR Abdomen AP Small Bowel W/ contrast Brigida Nieves; Auth (Verified) Notes: (XR Abdomen AP Small Bowel W/ contrast) Reason For Exam: Nausea/Vomiting;Nausea/Vomiting RESULT: XR Abdomen AP Small Bowel with contrast XR Abdomen AP Small Bowel with contrast INDICATION: Reason: Nausea Vomiting; Clinical Question(s): Obstruction; Order Comment: contrast given to pt @ 2315. 8hr image due 09 09 @ 0715 COMPARISON: Abdominal radiograph 12/06/2021. CT abdomen pelvis with contrast 09/08/2022. FINDINGS: Abdominal radiographs were obtained following oral contrast administration. Small bowel loops are normal in caliber. Oral contrast has progressed to the distal descending colon. No acute bony abnormalities. Evidence of prior ventral abdominal wall mesh hernia repair. Right lung base is clear. No visualized acute osseous abnormality. IMPRESSION: Enteric contrast is noted to extend to a normal-appearing colon to the level of the distal descending colon. No central dilated loops of small bowel. The appearance would be compatible with no current bowel obstruction. WSN: [id number] Ordering Physician: Jac Lomas Dictated By: Hamilton Mcneil MD Dictated Date/Time: 09/09/22 10:29 a Reviewed By: Hamilton Mcneil MD Signed By: Hamilton Mcneil MD Signed Date/Time: 09/09/22 10:29 am Transcribed By: DEIDRE Transcribed Date/Time: 09/09/22 10:26 am * Exam Date Time Procedure Performing Provider Status 09/08/22 4:[address] Abdomen and Pelvi s W/O Contrast Lauryn Lazo; Auth (Verified) Notes: (CT Abdomen and Pelvis W/O Contrast) Reason For Exam: Pain RESULT: CT Abdomen and Pelvis W/O Contrast CT Abdomen and Pelvis W/O Contrast INDICATION/CLINICAL QUESTION: Hx of Present Illness: abd pain since 10am. last bm yesterday night. nausea. pmh sbo. constant 7 10 pain, reports feeling like its contactions. Had a CT on tuesday. reports they told her she has a kidney stones. diagnosed with shingles on tuesday at urgent care, started tx; Reason: Pain; Clinical Question(s): Obstruction; incarcerated hernia, renal stone / Obstruction. TECHNIQUE: Spiral CT through the abdomen and pelvis without IV contrast formatted in 3 planes. The study was performed without oral contrast. Weight- based protocol using automatic tube modulation wasused to optimize exposure parameters. CTDIvol Body: 33.80 mGy, DLP Body: 1801 mGy*cm. COMPARISON: 08/28/2022 CT abdomen and pelvis. FINDINGS: Evaluation of the abdominal and pelvic viscera is suboptimal without intravenous contrast. Hospital Cna View Findings, Lines and Tubes: None. Visualized Chest: Minimal right basilar opacities may represent atelectasis. The lung bases are otherwise clear. No pleural effusion. Normal heart size. No pericardial effusion. Diaphragm: Unremarkable. Liver: Normal morphology and attenuation. Gallbladder: Prior cholecystectomy Bile ducts: No bile duct dilation. Spleen: Normal size. Pancreas: No peripancreatic inflammatory changes. Adrenal Glands: Normal. Kidneys and Ureters: No hydronephrosis. No calculi. Bladder: Underdistended. Stomach, Small bowel and Large Bowel: The stomach is normal. There is segmental of several loops ofsmall bowel in the left mid to lower abdomen measuring up to 4.3 cm. There is a transition point inthe left lower quadrant at the level of an enteroenteric anastomosis, beyond which the small bowel is completely decompressed, consistent with bowel obstruction. Mild inflammatory changes are noted surrounding the fecalized small bowel loop above the transition site. The colon is relatively underdistended and appears normal. Appendix: Normal. Peritoneum, omentum and mesentery: Mild inflammatory changes surrounding a small bowel loop in leftlower abdomen. No omental or mesenteric lesions. Lymph nodes: No pathologically enlarged lymph nodes. Blood vessels: Mild vascular calcifications but no aneurysm. Abdominal and pelvic wall: Postoperative scarring in the anterior abdominal wall. Prior ventral hernia mesh repair. Multiple small bowel loops are closely opposed to the mesh. Reproductive organs: Prior hysterectomy. No adnexal masses. Bones: No acute abnormality. Mild degenerative changes in the spine. IMPRESSION: Small bowel obstruction, with transition point in the left lower abdomen at site of an enteroenteric anastomosis beyond which the small bowel is completely decompressed. Mild inflammatory changes surrounding the fecalized small bowel loop just above the transition point. WSN: [id number] Ordering Physician: Shanika Gomez Dictated By: Austen Soliz MD Dictated Date/Time: 09/08/22 5:05 pm Reviewed By: Austen Soliz MD Signed By: Austen Soliz MD Signed Date/Time: 09/08/22 5:05 pm Transcribed By: DEIDRE Transcribed Date/Time: 09/08/22 4:57 pm Vital Signs Most recent to oldest [Reference Range]: 1 2 3 Height 155 cm (09/13/22 4:47 AM) 155 cm (09/13/22 12:11 AM) 155 cm (09/12/22 8:42 PM) Weight 125 kg (09/10/22 5:08 PM) Oxygen Saturation [94-100 %] 94 % (09/14/22 3:25 AM) 97 % (09/14/22 12:07 AM) 98 % (09/13/22 8:00 PM) Pulse Rate [55-90 bpm] 85 bpm (09/14/22 6:20 AM) 74 bpm (09/14/22 3:25 AM) 84 bpm (09/14/22 12:07 AM) Body Mass Index [18.5-24.99 kg/m2] 52.03 kg/m2 *>HHI* (09/10/22 5:08 PM) Blood Pressure [90-138/55-84 mm Hg] 132/71mm Hg (09/14/22 6:20 AM) 137/68mm Hg (09/14/22 3:25 AM) 121/71mm Hg (09/14/22 12:07 AM) Respiratory Rate [16-30 br/min] 20 br/min (09/14/22 10:22 AM) 20 br/min (09/14/22 9:21 AM) 20 br/min (09/14/22 8:27 AM) Temperature [96.8-100.4 DegF] 98.0 DegF (09/14/22 3:25 AM) 97.9 DegF (09/14/22 12:07 AM) 98.0 DegF (09/13/22 8:00 PM) Mode of Delivery (Oxygen) Room air (09/14/22 3:25 AM) Room air (09/14/22 12:07 AM) Room air (09/13/22 8:00 PM) Blood pressure sites Arm, right (09/14/22 3:25 AM) Arm, right (09/14/22 12:07 AM) Arm, right (09/13/22 8:00 PM) Temperature Route Oral (09/14/22 3:25 AM) Oral (09/14/22 12:07 AM) Oral (09/13/22 8:00 PM) Dry Weight 125 kg (09/10/22 5:08 PM) 125 kg (09/09/22 4:02 AM) 125 kg (09/08/22 1:30 PM) Weight Obtained Via Patient/family state d (09/10/22 5:08 PM) Dry Weight Obtained Via Patient/family s tated (09/08/22 1:30 PM) Social History Social History Type Response Smoking Status Former smoker; Other : quit 04/2015; entered on: 01/30/16 Sex History and physical note * Jac Lomas MD: PERFORM Event Display: History and Physical Hospital Authored Date: [id number] Patient: ??LOVING, VILMA ? Age:??46 Years?Sex:??Female?:??1975?? Chief Complaint abd pain since 10am. last bm yesterday night. nausea. pmh sbo History of Present Illness Patient is a 46-year-old woman??with complicated past medical history including??multiple abdominaloperations??including??exploratory laparotomy, lysis of adhesions, multiple small bowel obstructions,??total abdominal hysterectomy and bilateral salpingo-oophorectomy??who is now TPN dependent who presents today??with??nausea??abdominal pain??and CT imaging concerning for??partial small bowel obstruction. ?? Patient says that??she was??feeling normal until about??noon on 7???26 at which time she experienced some??adverse discomfort in her abdomen followed by nausea.?Patient is TPN dependent for nutrition??but does not eat food??including solids just in small amounts. ??There is no obvious preceding e vent for this but the patient had.?? Patient??said that after the nausea started??she??did have??a bowel movement??and continued to pass gas??all the way up until??my evaluation in the hospital. ??She said that this episode felt like previous small bowel obstructions that she did. ??She denied any fevers chills shortness of breath chest pain. ??She did??endorse a new diagnosis of shingles 3 days ago and has been taking??valacyclovir up until today but has stopped because of the nausea. ?? On presentation to [facility] patient had??normal vitals was stable and afebrile.?? She had??laboratory investigations that showed no leukocytosis??patient had normal electrolytes BUN/creatinine??but slightly elevated sugar at 216.?? She had a negative test and a lactate of 2. ??Patient hada CT scan that showed some dilated loops of small bowel up to 4.3 cm??with some fecalization that appeared to have a transition point??near a previous small bowel anastomosis. ??This is not a complete transition point there appears to be??stool within it??but it is significantly??narrowed. ?? Examination is listed below ?? Physical Exam Vitals & Measurements T:??98.2?F?? HR:??99??(Peripheral)?? RR:??13?? BP:??106/68?? SpO2:??96%?? HT:??155??cm?? General: No acute distress, obesity Head: Atraumatic, normocephalic ENT: Clear, patient has a Polanco line in place no evidence of erythema CV: Regular rate and rhythm Pulmonary: Even and unlabored breathing, no wheezing Abdomen: Abdomen was soft nondistended??with mild tenderness to palpation in the left and right lower quadrants??with no guarding no concern for peritonitis. ??Patient does have shingles??on the right flank??with no??active vesicles. Extremities: Demonstrates intact active range of motion Neuro: Appropriate, oriented, cooperative Assessment/Plan Patient is a 46-year-old woman??with complicated past medical history including??multiple abdominaloperations??including??exploratory laparotomy, lysis of adhesions, multiple small bowel obstructions,??total abdominal hysterectomy and bilateral salpingo-oophorectomy??who is now TPN dependent who presents today??with??nausea??abdominal pain??and CT imaging concerning for??partial small bowel obstruction. ? Patient has an extensive history of small bowel obstructions??and her CT scan is concerning for a??transition point of previous small bowel anastomosis??although there appears to be??stool passing within. ??Patient is still passing flatus and so this is??only a partial obstruction. ??Her nausea hasresolved with the administration of antinausea medications and she has refused an NG tube at this time. ??She was given??the small bowel protocol by mouth which she was agreeable to??and she was ableto keep this down without vomiting. ??While the transition site??at the anastomosis is concerning??could represent adhesive disease at??or near the site. ??Given patient's relatively benign exam we will proceed with small bowel obstruction protocol but??she may fail??conservative??management. ?? Plan: Small bowel protocol: Patient has refused NG tube??but received all the??contrast by mouth N.p.o. IV fluids Patient is transition to IV acyclovir for 5 days??for treatment of shingles Patient's??long-acting insulin was cut from 35 units twice daily to 20 units twice daily while she is n.p.o. Propranolol transition to 2.5 metoprolol every 6 Patient has multiple??home p.o. medications that we cannot restart at this time Will need further med rec once tolerating PO Nutrition consult for TPN as she is chronically dependent ?? This plan was discussed Dr. Mcdowell [facility] [id number] Problem List/Past Medical History Ongoing Abdominal pain [...] no longer needed Trigger point of abdomen [facility] Team Senior Level Patient Procedure/Surgical History EGD - Esophagogastroduodenoscopy: 09/02/21 Colonoscopy, [...] tunnel release Abdominal wall reconstruction Tubal ligation Home Medications Albuterol: 2 puffs, Inhalation, 4 times a day, PRN (for wheezing) Bisacodyl: 5 mg = 1 tablet, By Mouth, Daily Calcium Carbonate: 500 mg = 1 tablet, Chew, Every 4 hours, PRN (Dyspepsia) Cholecalciferol: 2,000 International_Units = 1 capsule, By Mouth, 3 times a day Diazepam: 5 mg = 1 tablet, By Mouth, 2 times a day Docusate-Senna: 2 tablet, By Mouth, Daily at bedtime Hydromorphone: 4 mg = 4 mL, By Mouth, Every 6 hours, PRN (as needed for pain) Insulin Aspart: See Instructions, Subcutaneous Injection, Use as per sliding scale Insulin Glargine: 35 units, Subcutaneous Injection, 2 times a day Lactulose: 10 Gm = 15 mL, By Mouth, Daily, PRN (as needed for constipation) Lidocaine Topical: See Instructions, PRN (Pain , Moderate), Topically Daily as needed for painremove patches after 12 hours Magnesium Sulfate: See Instructions, patient reports taking 4 g mag Tuesday and Tue IV. 8g of IV Mg on Sat Methocarbamol: 500 mg = 1 tablet, By Mouth, Daily at bedtime Miscellaneous Rx (Ensure High Protein): 113 mL, By Mouth, 3 times a day with meals Ondansetron: 4 mg, IV Push, Every 6 hours, PRN (Nausea & Vomiting) Oxybutynin: 5 mg = 5 mL, By Mouth, 3 times a day, for bladder spasm Pantoprazole: 40 mg, IV Infusion, Daily Potassium Chloride: 8 mEq = 1 capsule, By Mouth, Daily Propranolol: 120 mg = 1 capsule, By Mouth, Daily at bedtime Sertraline: 50 mg = 1 tablet, By Mouth, Daily Simvastatin: 40 mg = 1 tablet, By [...] itching) melatonin morphine??(hives) Social History Alcohol Use: Past. 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 Exercise Self assessment: Poor condition. Regular exercise: No. Home/Environment Living situation: Home/Independent. Lives with: Significant other, Cousin. Nutrition/Health Caffeine intake amount: Minimal Fiber. Sexual Sexually involved in last 6 months: Yes. Sexual orientation: Homosexual. Substance Abuse Use: Past. Other: occasional edibles. Tobacco Former smoker, Other: quit 04/2015. Family History Mother: Asthma; Degenerative disc disease; Endometriosis; Hypertension Lab Results Labs Last 24 Hours BLOOD COUNT & DIFF ? Event Name?? Event Result?? Date/Time?? WBC 5.6 k/mm3 09/08/22 13:59:00 RBC 4.99 m/mm3 09/08/22 13:59:00 Hgb 12.9 Gm/dL 09/08/22 13:59:00 Hct 39.8 % 09/08/22 13:59:00 MCV 79.8 femtoliters??Low 09/08/22 13:59:00 MCH 25.9 pg??Low 09/08/22 13:59:00 MCHC 32.4 g/dL??Low 09/08/22 13:59:00 Platelet Count 346 k/mm3 09/08/22 13:59:00 MPV 9.3 femtoliters??Low 09/08/22 13:59:00 Nucleated RBC (Automated) 0 #/100 WBC'S 09/08/22 13:59:00 ? CHEM GENERAL ? Event Name?? Event Result?? Date/Time?? Sodium 136 mmol/L 09/08/22 13:59:00 Chloride 97 mmol/L??Low 09/08/22 13:59:00 Bicarbonate Level 26 mmol/L 09/08/22 13:59:00 Anion Gap 13 09/08/22 13:59:00 Glucose Level 216 mg/dL??High 09/08/22 13:59:00 BUN 11 mg/dL 09/08/22 13:59:00 Creatinine-Blood 0.6 mg/dL 09/08/22 13:59:00 Alkaline Phosphatase 129 units/L??High 09/08/22 13:59:00 Lipase 16 units/L 09/08/22 13:59:00 AST (SGOT) 15 units/L 09/08/22 13:59:00 ALT (SGPT) 13 units/L 09/08/22 13:59:00 Bilirubin, Total 0.5 mg/dL 09/08/22 13:59:00 ? EKG study * Event Display: ECG 12-Lead Authored Date: [id number] Please click on pdf link to open report * Event Display: ECG 12-Lead Authored Date: [id number] Ventricular Rate: 98 BPM Atrial Rate: 98 BPM P-R Interval: 124 ms QRS Duration: 80 ms Q-T Interval: 326 ms QTC Calculation(Bazett): 416 ms P [place]: 91 degrees R [place]: -2 degrees T [place]: -3 degrees Normal sinus rhythm Normal ECG When compared with ECG of 14-JUN-2022 19:25, No significant change was found Confirmed by KYM SHERIFF [facility] ([id number]) on 09/08/2022 4:38:03 PM [facility]: [facility] * Gillian Olsen RN: PERFORM, SIGN, VERIFY, SIGN, MODIFY Event Display: [facility] Authored Date: [id number] Patient: VILMA SERRANO Age: 47 years Sex: Female : 1975 Associated Diagnoses: None Author: Gillian Olsen RN Findings Problem Related to Alteration in Gastrointestinal : Alteration in Gastrointestinal Func/new 09/14/2022 9:32 EDT Alteration in GI status Related to Other: partial small bowel obstruction Goals & Outcomes, Gastrointestinal Establish a regular pattern of elimination for pt, Nutritional intake is adequate for metabolic needs, Pt will achieve normal/improved fluid balance, Pt will have a bowel movement prior to discharge, Pt will maintain adequate GI function appropriate for pt, Ptwill maintain normal elimination patterns, Pt will resume/maintain adequate hemodynamic status, Pt w ill tolerate age appropriate diet prior to discharge Interventions, Gastrointestinal Assess/monitor abdomen for distention, tenderness, Assess/monitor abdominal girth & bowel function, Assess/monitor bowel pattern, bowel sounds, flatus, Assess/monitor number of bowel movements, Assess/monitor color, quantity, quality, consistency of stoo, Assess/monitor pt for nausea, vomiting, Assess/monitor intake & output, Assess if pt tolerating diet, DVT prophylaxis as ordered, Teach Pt/caregiver diet & give copy of dietary instructions, Teach Pt/caregiver on bowel elimination interventions, Teach Pt/caregiver re: importance of bowel regime, Teach Pt/caregiver re: nutritional intake & dietary restrict, Teach/encourage deep breath & cough exercises, Teach/encourage use of incentive spirometer BH Goals/Interventions, Gastrointestinal Yes Gastrointestinal, Problem Start 09/11/2022 23:30 Reviewed plan with, Gastrointestinal Patient Patient Progression, Gastrointestinal Pt progressing according to plan . Narrative/Incidental Patient alert and oriented x4. Reporting 5/10 pain, gave PRN oxycodone and scheduled valium with good effect. No edema noted, palpable pulses, denies numbness/tingling, chest pain or shortness of breath. Lung sounds clear to auscultation bilaterally, on room air satting high 90s. On cardiac monitorin normal sinus rhythm in 70s. Voiding clear yellow urine. Skin is intact. Ambulates independently.Call gray within reach, uses appropriately. Patient went to IR for polanco line revision, no changes to line made, heparin locked.. Evaluation P: alteration in gastrointestinal status I see interventions listed above E: abdomen soft, round, mildly tender to palpation with +present bowel sounds, denies nausea/vomiting. Tolerating low fiber diet. Passing flatus.. Discharge Information Case Management Discharge Plan : Case Management Discharge Plan Data 2022 12:27 EDT Discharge Level of Care at Discharge Homehealth/VNA Discharge Medical Equipment Companies [facility]: [phone] Name of Agency #1 [facility]: [phone] Service Categories #1 Other: TPN Service Comments #1 [facility] will contact you regarding your TPN. * Gillian Olsen RN: PERFORM Event Display: Progress Note Hospital Authored Date: Discharge instructions reviewed with patient, patient verbalizes understanding. Peripheral IV discontinued with catheter tip intact, wheeled off unit by nursing staff. * Falguni WILSON, Lilian Mary: VERIFY, PERFORM, SIGN Event Display: Progress Note Hospital Authored Date: Patient: VILMA SERRANO Age: 47 years Sex: Female : 1975 Associated Diagnoses: None Author: Falguni WILSON, Lilian Mary Findings Problem Related to Alteration in Gastrointestinal : Alteration in Gastrointestinal Func/new 2022 23:00 EDT Alteration in GI status Related to Other: partial small bowel obstruction Goals & Outcomes, Gastrointestinal Establish a regular pattern of elimination for pt, Nutritional intake is adequate for metabolic needs, Pt will achieve normal/improved fluid balance, Pt will have a bowel movement prior to discharge, Pt will maintain adequate GI function appropriate for pt, Ptwill maintain normal elimination patterns, Pt will resume/maintain adequate hemodynamic status, Pt w ill tolerate age appropriate diet prior to discharge Interventions, Gastrointestinal Assess/monitor abdomen for distention, tenderness, Assess/monitor abdominal girth & bowel function, Assess/monitor bowel pattern, bowel sounds, flatus, Assess/monitor number of bowel movements, Assess/monitor color, quantity, quality, consistency of stoo, Assess/monitor pt for nausea, vomiting, Assess/monitor effects of re-hydration, Assess/monitor intake &output, Assess if pt tolerating diet, DVT prophylaxis as ordered, Provide/encourage oral care if NPO, Teach/encourage deep breath & cough exercises, Teach/encourage use of incentive spirometer . Nursing Data Gastrointestinal Data. : Gastrointestinal Data. 2022 22:40 EDT Gastrointestinal Symptoms Belching, Nausea Abdomen Soft, Tender, Round Bowel Sounds LUQ Hypoactive Bowel Sounds RUQ Hypoactive Bowel Sounds LLQ Hypoactive Bowel Sounds RLQ Hypoactive Last Bowel Movement 09/10/2022 GI WNL except Normal Bowel Pattern Daily . Vital Signs : VITAL SIGNS SECTION 09/14/2022 3:25 EDT Temperature 98.0 DegF Temperature Route Oral Pulse Rate 74 bpm Respiratory Rate 18 br/min Systolic Blood Pressure 137 mm Hg Diastolic Blood Pressure 68 mm Hg Blood pressure sites Arm, right Pulse Pressure 69 mm Hg Oxygen Saturation 94 % Mode of Delivery (Oxygen) Room air . Narrative/Incidental No acute events overnight. Pt is alert and oriented x 3. Reports numbness and tingling in her handsand feet at baseline. Lungs are CTA, On RA. Encouraged to do IS, able to achieve 1500cc. Pedal pulses are palpable, both feet trace pitting edema noted. NSR on tele. Ambulates OOB independently. Voids CYU. Red tiny rashes noted on the left lower back. Plan of care explained to the pt and agreed. . Evaluation P : Alteration in gastrointestinal function I : See interventions listed in care plan above. E: Pt reports adequate pain control with IV Dilaudid and K-pad. Abdomen is soft ,round and TTP in the mid lower abdomen, bowel sounds are hypoactive. Pt has been having nausea at baseline, medicated with IV Zofran and Benadryl with good effect. Denies vomiting. Pt does report belching, no flatus, last BM was on 09/10. Tolerates low fiber. Left chest Polanco catheter in place, flushes, but does notaspirate, dressing is CDI. Kept NPO MN for IR procedure today. Progressing along plan of care.. * Gillian Olsen RN: PERFORM, SIGN, VERIFY Event Display: Progress Note Hospital Authored Date: [id number] Patient: VILMA SERRANO Age: 47 years Sex: Female : 1975 Associated Diagnoses: None Author: Gillian Olsen RN Findings Problem Related to Alteration in Gastrointestinal : Alteration in Gastrointestinal Func/new 2022 12:38 EDT Alteration in GI status Related to Other: partial small bowel obstruction Goals & Outcomes, Gastrointestinal Establish a regular pattern of elimination for pt, Nutritional intake is adequate for metabolic needs, Pt will achieve normal/improved fluid balance, Pt will have a bowel movement prior to discharge, Pt will maintain adequate GI function appropriate for pt, Ptwill maintain normal elimination patterns, Pt will resume/maintain adequate hemodynamic status, Pt w ill tolerate age appropriate diet prior to discharge Interventions, Gastrointestinal Assess/monitor abdomen for distention, tenderness, Assess/monitor abdominal girth & bowel function, Assess/monitor bowel pattern, bowel sounds, flatus, Assess/monitor number of bowel movements, Assess/monitor color, quantity, quality, consistency of stoo, Assess/monitor pt for nausea, vomiting, Assess/monitor intake & output, Assess if pt tolerating diet, DVT prophylaxis as ordered, Teach Pt/caregiver diet & give copy of dietary instructions, Teach Pt/caregiver on bowel elimination interventions, Teach Pt/caregiver re: importance of bowel regime, Teach Pt/caregiver re: nutritional intake & dietary restrict, Teach/encourage deep breath & cough exercises, Teach/encourage use of incentive spirometer BH Goals/Interventions, Gastrointestinal Yes Gastrointestinal, Problem Start 09/11/2022 23:30 Reviewed plan with, Gastrointestinal Patient Patient Progression, Gastrointestinal Pt progressing according to plan . Nursing Data Vital Signs : VITAL SIGNS SECTION 2022 7:00 EDT Temperature 97.9 DegF Temperature Route Oral Pulse Rate 71 bpm Respiratory Rate 18 br/min Systolic Blood Pressure 118 mm Hg Diastolic Blood Pressure 67 mm Hg Blood pressure sites Arm, right Pulse Pressure 51 mm Hg Oxygen Saturation 100 % Mode of Delivery (Oxygen) Room air . Narrative/Incidental Patient alert and oriented x4. Reporting 5/10 pain, gave staggered PRN oxycodone and dilaudid with good effect. No edema noted, palpable pulses, denies numbness/tingling, chest pain or shortness of breath. On personnel monitor in normal sinus rhythm. Lung sounds clear to auscultation bilaterally, on room air satting high 90s. Voiding clear yellow urine. Skin is intact. Ambulates independently. Callbell within reach, uses appropriately.. Evaluation P: alteration in gastrointestinal status I see interventions listed above E: abdomen soft, round, nontender with +present bowel sounds. Tolerating low fiber diet without nausea/vomiting. Denies flatus, does report baseline nausea, gave scheduled benadryl with PRN zofran. . Discharge Information Case Management Discharge Plan : Case Management Discharge Plan Data 2022 12:27 EDT Discharge Level of Care at Discharge Homehealth/VNA Discharge Medical Equipment Companies [facility]: [phone] Name of Agency #1 [facility]: [phone] Service Categories #1 Other: TPN Service Comments #1 [facility] will contact you regarding your TPN. Consult note * Julian SHERIFF, Petr Tubbs: PERFORM Event Display: Consultation Note Authored Date: [id number] Patient: ??LOVING, VILMA ? Age:??47 Years?Sex:??Female?:??1975?? The patient attended today for??change of a??mini Polanco catheter placed by me at the start of they.?? The patient tells me that there have been problems with its function ever since it was placed.?For reasons which are not clear??to me and are not clear to the patient I was not made aware of this prior to today, over with 6 months after insertion. ??This is difficult to understand. ?? I explained what we needed to do. ??The patient would like moderate sedation. ??She is not n.p.o. ??She also gives a significant history of allergy??to x-ray contrast dye.?? It would be best for her to use this??during the exchange procedure to evaluate for a fibrin sheath.?? The patient has no secure alternative IV access. ??She is a difficult stick. ??She would like??moderate sedation. ??After?? extensive discussion about next steps well in excess of 20 minutes of [id number] counseling withthe patient??we decided that she will be rescheduled for tomorrow with appropriate intravascular??IV access, and appropriate??premedication to prevent contrast allergy. ?? Total??face to face??interaction which is entirely counseling concerning her condition, the problems related to doing the procedure today, changes to her management and next steps for a procedure tomorrow was in excess of 20 minutes. ??Thank you??for this kind consultation. Note * Akanksha Allen RN: PERFORM Event Display: Discharge/Transfer Note Hospital Authored Date: [id number] Nursing Discharge Note Entered On: 09/14/2022 11:07 EDT Performed On: 09/14/2022 11:06 EDT by Akanksha Allen RN Nursing Discharge Note 2 Discharge Time : 09/14/2022 11:07 EDT Discharge Level of Care at Discharge : Homehealth/VNA Discharge Medical ROCKI(v001) : [facility]: [phone] Patient Left Unit Via : Wheelchair Patient Accompanied Off Unit with : Significant other DC Instructions Provided & Signed by Pt : Yes Patient Understands D/C Instructions : Yes Patient Instructions Discharge Signed : Yes Did Pt have Specialty Bed or Wound Vac : No Alejandro WILSON, [facility] 09/14/2022 11:06 EDT * Armida Barreto NP: MODIFY, SIGN, MODIFY, SIGN, VERIFY, PERFORM, MODIFY Event Display: Discharge/Transfer Note Hospital Authored Date: [id number] Patient: VILMA SERRANO Age: 47 years Sex: Female : 1975 Associated Diagnoses: None Author: Armida Barreto NP Discharge Information Admission Date: 09/08/2022 Discharge Date 2022 Primary Care Provider: Chaparrita Pizano DO Principal Discharge Diagnosis Nausea & vomiting. SBO (small bowel obstruction). Aware of diagnosis: patient. 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 She refused NG tube placement but on small bowel protocol KUB had contrast into her right colon and passed the contrast without issue. Following had subsequent KUB noting resolution of SBO. Her diet was advanced and pt was clear for discharge. Significant Results Results: Vital signs : VITAL SIGNS SECTION 2022 7:00 EDT Temperature 97.9 DegF Temperature Route Oral Pulse Rate 71 bpm Respiratory Rate 18 br/min Systolic Blood Pressure 118 mm Hg Diastolic Blood Pressure 67 mm Hg Blood pressure sites Arm, right Pulse Pressure 51 mm Hg Oxygen Saturation 100 % Mode of Delivery (Oxygen) Room air , Laboratory : LABORATORY 2022 6:10 EDT WBC 4.0 k/mm3 RBC 4.16 m/mm3 L Hgb 10.8 Gm/dL L Hct 34.1 % L MCV 82.0 femtoliters MCH 26.0 pg L MCHC 31.7 g/dL L Platelet Count 258 k/mm3 RDW-SD 41.7 femtoliters MPV 9.2 femtoliters L Nucleated RBC (Automated) 0.0 #/100 WBC'S Abs. NRBC 0.0 k/mm3 Abs. Neut 1.6 k/mm3 Abs. Lymph 1.8 k/mm3 Abs. [place] 0.3 k/mm3 L Abs. Eo 0.2 k/mm3 Abs. Baso 0.0 k/mm3 Neut % 40.3 % L Lymph % 44.7 % H [place] % 8.3 % Eos % 5.6 % Baso % 0.8 % Imm Gran 0.3 % Abs. Imm Gran 0.0 k/mm3 Sodium 139 mmol/L Potassium 3.9 mmol/L Chloride 103 mmol/L Bicarbonate Level 27 mmol/L Anion Gap 9 Glucose Level 106 mg/dL H BUN 12 mg/dL Creatinine-Blood 0.6 mg/dL Estimated GFR Creatinine 111 ML/MIN/1.73 M2 Calcium, Ionized pH Corrected 1.23 mmol/L Phosphorus 3.4 mg/dL Magnesium 2.0 mg/dL . RESULT: CT Abdomen and Pelvis W/O Contrast CT Abdomen and Pelvis W/O Contrast INDICATION/CLINICAL QUESTION: Hx of Present Illness: abd pain since 10am. last bm yesterday night. nausea. pmh sbo. constant 7 10 pain, reports feeling like its contactions. Had a CT on tuesday. reports they told her she has a kidney stones. diagnosed with shingles on tuesday at urgent care, started tx; Reason: Pain; Clinical Question(s): Obstruction; incarcerated hernia, renal stone / Obstruction. TECHNIQUE: Spiral CT through the abdomen and pelvis without IV contrast formatted in 3 planes. The study was performed without oral contrast. Weight- based protocol using automatic tube modulation wasused to optimize exposure parameters. CTDIvol Body: 33.80 mGy, DLP Body: 1801 mGy*cm. COMPARISON: 08/28/2022 CT abdomen and pelvis. FINDINGS: Evaluation of the abdominal and pelvic viscera is suboptimal without intravenous contrast. Hospital Cna View Findings, Lines and Tubes: None. Visualized Chest: Minimal right basilar opacities may represent atelectasis. The lung bases are otherwise clear. No pleural effusion. Normal heart size. No pericardial effusion. Diaphragm: Unremarkable. Liver: Normal morphology and attenuation. Gallbladder: Prior cholecystectomy Bile ducts: No bile duct dilation. Spleen: Normal size. Pancreas: No peripancreatic inflammatory changes. Adrenal Glands: Normal. Kidneys and Ureters: No hydronephrosis. No calculi. Bladder: Underdistended. Stomach, Small bowel and Large Bowel: The stomach is normal. There is segmental of several loops ofsmall bowel in the left mid to lower abdomen measuring up to 4.3 cm. There is a transition point inthe left lower quadrant at the level of an enteroenteric anastomosis, beyond which the small bowel is completely decompressed, consistent with bowel obstruction. Mild inflammatory changes are noted surrounding the fecalized small bowel loop above the transition site. The colon is relatively underdistended and appears normal. Appendix: Normal. Peritoneum, omentum and mesentery: Mild inflammatory changes surrounding a small bowel loop in leftlower abdomen. No omental or mesenteric lesions. Lymph nodes: No pathologically enlarged lymph nodes. Blood vessels: Mild vascular calcifications but no aneurysm. Abdominal and pelvic wall: Postoperative scarring in the anterior abdominal wall. Prior ventral hernia mesh repair. Multiple small bowel loops are closely opposed to the mesh. Reproductive organs: Prior hysterectomy. No adnexal masses. Bones: No acute abnormality. Mild degenerative changes in the spine. IMPRESSION: Small bowel obstruction, with transition point in the left lower abdomen at site of an enteroenteric anastomosis beyond which the small bowel is completely decompressed. Mild inflammatory changes surrounding the fecalized small bowel loop just above the transition point. Discharge Plan Prescription Given this visit:No new prescriptions during this visit. Patient Instructions Given:Special Instructions If you develop fever, chills, increased pain, nausea, vomiting,?? please call the surgery office [phone]. If you have any questions, or recurrence of symptoms please call the surgery office at . Please call your Primary Care Provider within 1 week for post hospital follow up and review of yourmedications. Continue your home prescription of Acyclovir for total of 5 days. Education Given:Small Bowel Obstruction Patient Follow-up:Added Follow Up Time Frame Comments July HUSSEIN MD, Shade Alberts Only if Needed. * Mary Lou MARES, Armida Hi: PERFORM Event Display: Discharge/Transfer Note Hospital Authored Date: Due to line not drawing blood she went to IR yesterday and was noted that both polanco lumens were not working. Per IR it was recommended that she stay overnight and have her line change this morning. It appears that line is working well now. Per initial plan, we will be discharging today. She is now passing gas and abdomen exam is benign. Home TPN to be restarted paperwork signed and sent yesterday. * Gillian Olsen RN: PERFORM Event Display: Patient Education/Instruction Authored Date: [id number] Inpatient Adult Discharge Instructions [address] [address] Name: VILMA SERRANO : 1975 Visit: 09/08/2022 21:00:00 Current Date: 2022 14:38 Account: [id number] Inpatient Adult Discharge Instructions We would like [...] and their families. Surveys are administered by [employer] ?? If further treatment with your primary care physician or another doctor is recommended, it is important for you to keep the appointment. Call your primary care physician or return to the Emergency Department immediately if your condition worsens, fails to improve, or new symptoms develop. If you need to find a doctor, you can call [facility] for a referral at [phone] or toll free at [phone] or log in to [email or web address].. ?? You can view and manage your care through the patient portal or by using a health care aniyah of your choosing. [employer] is a website that allows you to securely view your medical information including your hospital discharge summary, office visit summaries, medications and follow-up visits. You can also request appointments, renew medications, and request access to your medical information using a health care aniyah of your choosing, or just ask a question. You can enroll at [email or web address] or register during your next office visit. You have been discharged from [facility], Patient Care Unit: SW6. If you have any questions regarding these instructions after you leave, please call us and we will be happy to assist you. [facility] Your Care Team Attending Physician July HUSSEIN MD, Shade Alberts Discharging Providers Mary Lou MARES, Armida Hi Reason for Admission abd pain since 10am. last bm yesterday night. nausea. pmh sbo Your Diagnosis SBO (small bowel obstruction) Abdominal pain Nausea & vomiting Diarrhea Tests Performed Below is a partial list of the tests performed during your hospitalization. You may have had other tests and procedures not included in this list. Please discuss all test results with your provider. BUN Calcium Ionized CBC w/ Differential Comprehensive Metabolic Panel COVID-19 (NOVEL CORONAVIRUS) PCR Creatinine Electrolytes Glucose Level GLUCOSE POC Hold Blue Top Tube Lactic Acid Level Lipase Magnesium Level Phosphorus Level Serum Qualitative Type and Screen CT Abdomen and Pelvis W/O Contrast XR ABD COMP/DECUB/ERECT XR Abdomen AP Small Bowel with contrast Primary Care Provider Chaparrita Pizano DO Advance Directive Health Care Proxy on File Yes - Health Care Proxy Discharge Vitals Temperature: 97.9 DegF Height: 155 cm Pulse Rate: 71 bpm Weight: 125 kg Respiratory Rate: 20 br/min Body Mass Index:??52.03 kg/m2??Critical Systolic Blood Pressure: 118 mm Hg Body surface area: 2.32 Diastolic Blood Pressure: 67 mm Hg ?? Oxygen Saturation: 100 % ?? Studies Pending All tests and labs ordered during this hospital stay have been completed unless listed below. Please discuss all pending results with your provider listed above in these instructions. ?? BUN CBC w/ Differential COVID-19 (2019 Novel Coronavirus) PCR Creatinine Electrolytes Glucose Level Ionized Calcium (Calcium Ionized) Magnesium Level Phosphorus Level Chest Portable (Portable Chest) What to do next Instructions From Your Doctor Special Instructions ?? If you develop fever, chills, increased pain, nausea, vomiting,?? please call the surgery office [phone].? If you have any questions, or recurrence of symptoms please call the surgery office at . ?? Please call your Primary Care Provider within 1 week for post hospital follow up and review of yourmedications. ?? Continue your home prescription of Acyclovir for total of 5 days. ?? Discharge Orders Scheduled Follow-Up Appointments 2022 9:00 AM EDT ?? With: Jorge L MARES, Symone Morrison Where: [facility] [address] [place] [address]- Status: Pending You Need to Schedule the Following Appointments Follow Up with??July HUSSEIN MD, Shade Alberts When:??Only if needed Where: [address] [place] [address], [address] [facility] Trauma [place] [address]- Discharge Medications VILMA SERRANO :1975 Visit Date:09/08/2022 Medications: Please continue your medications until treatment is completed or stopped by your provider. Medications not listed below should be discontinued. Discuss any questions related to medications with your provider. What How Much When Instructions Next Dose Unchanged Albuterol (albuterol CFC free 90 mcg/ [...] 1 capsule Oral 3 times a day as prescribed Unchanged Diazepam (diazepam 5 mg oral tablet) 1 tab(s) Oral Twice a day as prescribed Unchanged DiphenhydrAMINE See instructions 50 mg IV Infusion, w/ ??zofran and pre med for mag infusion ?? as prescribed Unchanged Docusate-Senna (Senna Plus 50 mg-8.6 mg [...] 35 unit(s) Subcutaneous Injection Twice a day as prescribed Unchanged Lactulose (lactulose 10 gm/ 15 ml oral syrup) 15 Milliliter Oral Daily as needed for as needed for constipation as needed Unchanged Lidocaine Topical (lidocaine 5% topical film) See instructions Topically Daily as needed for pain remove patches after 12 hours, As needed for Pain , Moderate ?? as prescribed Unchanged Magnesium Sulfate (magnesium [...] for Nausea & Vomiting as needed Unchanged Oxybutynin (oxybutynin 5 mg/ 5 mL oral syrup) 5 Milliliter Oral 3 times a day for bladder spasm ?? as needed Unchanged Pantoprazole (Pantoprazole Inj) 40 Milligram Intravenous Infusion Daily as prescribed Unchanged Potassium Chloride (potassium chloride 8 mEq (600 mg) oral capsule, extended release) 1 capsule Oral Daily as prescribed Unchanged Propranolol (propranolol 120 mg oral capsule, extended release) 1 capsule Oral Daily at Bedtime Duration: 30 Days as prescribed Unchanged Sertraline (Zoloft 50 mg oral tablet) 1 tab(s) Oral Daily as prescribed Unchanged Simvastatin (simvastatin 40 mg oral tablet) 1 tab(s) Oral Daily at Bedtime as prescribed Unchanged Sucralfate (Carafate 1 gm oral tablet) 1 tab(s) Oral 3 times a day before meals and bedtime Duration: 30 Days as prescribed Unchanged Sumatriptan (SUMAtriptan 50 mg oral tablet) 1 tab(s) Oral Daily as needed for for migraine headache may repeat dose after 2 hours up to a maximum of 2 ?? as prescribed Test Results Below is a partial list of the most recent Laboratory test results done prior to this discharge. You may have had other tests and procedures not included in this list. Please discuss all test resultswith your provider. Est Creatinine Clearance - 85.68 mL/min (2022) BUN (2022) ???BUN - 12 mg/dL Calcium Ionized (2022) ???Calcium, Ionized pH Corrected - 1.23 mmol/L CBC w/ Differential (2022) ???WBC - 4.0 k/mm3???RBC - 4.16 m/mm3???Hgb - 10.8 Gm/dL???Hct - 34.1 %???MCV - 82.0 femtoliters???MCH - 26.0 pg???MCHC - 31.7 g/dL???Platelet Count - 258 k/mm3???RDW-SD - 41.7 femtoliters???MPV - 9.2 femtoliters???Nucleated RBC (Automated) - 0.0 #/100 WBC'S???Abs. NRBC - 0.0 k/mm3???Abs. Neut - 1.6 k/mm3???Abs. Lymph - 1.8 k/mm3???Abs. Providence - 0.3 k/mm3???Abs. Eo - 0.2 k/mm3???Abs. Baso - 0.0 k/mm3???Neut % - 40.3 %???Lymph % - 44.7 %???[place] % - 8.3 %???Eos % - 5.6 %???Baso % - 0.8 %???Imm Gran- 0.3 %???Abs. Imm Gran - 0.0 k/mm3 Comprehensive Metabolic Panel (09/08/2022) ???Sodium - 136 mmol/L???Potassium - 4.0 mmol/L???Chloride - 97 mmol/L???Bicarbonate Level - 26 mmol/L???Anion Gap - 13???Glucose Level - 216 mg/dL???BUN - 11 mg/dL???Creatinine-Blood - 0.6 mg/dL???Estimated GFR Creatinine - 113 ML/MIN/1.73 M2???Calcium - 9.8 mg/dL???Protein, Total - 7.3 Gm/dL???Alb umin - 4.3 Gm/dL???AG Ratio - 1.4???Alkaline Phosphatase - 129 units/L???AST (SGOT) - 15 units/L???ALT (SGPT) - 13 units/L???Bilirubin, Total - 0.5 mg/dL COVID-19 (NOVEL CORONAVIRUS) PCR (09/09/2022) ???COVID-19 PCR Specimen Source - NASAL???COVID-19 PCR Result - NEGATIVE Creatinine (2022) ???Creatinine-Blood - 0.6 mg/dL???Estimated GFR Creatinine - 111 ML/MIN/1.73 M2 Electrolytes (2022) ???Sodium - 139 mmol/L???Potassium - 3.9 mmol/L???Chloride - 103 mmol/L???Bicarbonate Level - 27 mmol/L???Anion Gap - 9 Glucose Level (2022) ???Glucose Level - 106 mg/dL GLUCOSE POC (2022) ???Glucose, POC - 111 mg/dL Hold Blue Top Tube (09/08/2022) ???Hold Blue Top - SPECIMEN DISCARDED AFTER 4 HOURS. Lactic Acid Level (09/08/2022) ???Lactate - 2.0 mmol/L Lipase (09/08/2022) ???Lipase - 16 units/L Magnesium Level (2022) ???Magnesium - 2.0 mg/dL Phosphorus Level (2022) ???Phosphorus - 3.4 mg/dL Serum Qualitative (09/08/2022) ??? Serum Qual - NEGATIVE Type and Screen (09/09/2022) ???Blood Type - B Positive???Antibody Screen - Negative Allergies (NKA means No Known Allergies) Seafood??(Anaphylactic [...] SHELLY III or?? Trigger point of abdomen?? [facility] Senior Level Patient?? Education Materials Below is the list of Educational Leaflet Providered with your Discharge Instructions. Small Bowel Obstruction?? Valuables and Belongings I fully understand and agree that [facility] accepts no responsibility for all my personal [...] witness Date for Pt to Sign Valuables/Belongings: 09/10/22 17:27:00 ?? Other Discharge Information Nutrition Discharge Status?? Nutrition Discharge Status?? Parenteral Nutrition: 165 mL ? Case Management Discharge Plan?? Discharge Plan?? Discharge Agency Information?? Discharge Level of Care at Discharge: Homehealth/VNA Name of Agency #1: [facility]: ??[phone] Discharge Medical Equipment Companies: [facility]: ??[phone] Service Categories #1: Other: TPN ?? Service Comments #1: [facility] will contact you regarding your TPN. ?? Pulmonary Rehab Status?? Pulmonary Rehab Discharge Status?? Respiratory Rate: 20 br/min Discharge Medical Equipment Companies: [facility]: ??[phone] ? Common Emergency Awareness Tips IS IT [...] are strongly encouraged to quit. Please call [facility] Real Intent Link at [phone] or [phone] ([phone]) or log in to [email or web address] for referrals to smoking cessation programs. ?? 811 Suicide & Crisis Lifeline is available 06/09 if you or someone you know needs to find a reason to keep living. By calling 680 you'll be connected to a skilled, trained counselor at a crisis center in your area. INPATIENT DISCHARGE INSTRUCTIONS SIGNATURE PAGE VILMA SERRANO Location:[facility] Registration Date and Time:09/08/2022 21:00 EDT Primary Care Physician: Chaparrita Pizano DO Attending Physician: July HUSSEIN MD, Shade T, I VILMA SERRANO, have received the above patient education materials/instructions and have verbalized understanding. If ambulance or transport services are being used I further acknowledge being given a choice of service. ?? If you need to contact me, please call me at this number: . Patient/Barrel Inspector Tight Name: Patient/Barrel Inspector Tight Signature: Relationship to Patient: Witness Name/Signature: Date: * Armida Barreto NP: PERFORM Event Display: Patient Education Leaflets Authored Date: [id number] Small Bowel Obstruction ?? 48548 Small Bowel Obstruction A??small bowel obstruction??occurs when part or all of the small intestine (bowel) is blocked. As aresult, digestive contents can???t move through the bowel and out of the body correctly. Treatment is needed right away to remove the blockage. This can ease painful symptoms. It can also prevent serious problems, such as tissue or bursting (rupture) of the small bowel. Without treatment, a small bowel obstruction can be fatal. Small bowel obstruction can lead to tissue damage and even tissue . Causes of small bowel obstruction A small bowel obstruction can be caused by: ??? Scar tissue (adhesions). ??These may form after belly (abdominal) surgery or an infection. ??? Hernia. A hernia is when an organ pushes through a weak spot or tear in the abdomen wall. Part of the small bowel can push out and be seen as a bulge under the belly.??Hernias can also occur internally. ??? Certain health problems. ??These include when part of the bowel slides inside another part (intussusception). Other causes include irritable bowel disease such as Crohn???s disease, and inflammation and sores in the intestine (ulcerative colitis). ??? Abnormal tissue growths (tumors). ??These can form on the inside or outside of the small bowel. They are usually due to cancer. ?? Symptoms of small bowel obstruction Common symptoms include: ??? Belly cramping and pain ??? Belly swelling and bloating ??? Upset stomach (nausea) and vomiting ??? Can't??pass gas ??? Can't pass stool (constipation) ??? Diarrhea ?? Diagnosing small bowel obstruction Your provider will ask about your symptoms and health history. You???ll also have a physical exam. Tests may also be done to confirm the problem. These can include: ??? Imaging tests.??These provide pictures of the small bowel. Common tests include X-rays and a CT scan. ??? Blood tests.??These check for infection and other problems, such as excess fluid loss (dehydration). ??? Upper GI (gastrointestinal) series with a small bowel follow-through. ??This test takes X-rays of the upper digestive tract from the mouth through the small bowel. An X-ray dye (contrast fluid) is used. The dye coats the inside of your upper digestive tract so it will show up clearly on X-rays. ?? Treating small bowel obstruction Treatment takes place in a hospital. As part of your care, the following may be done: ??? No food or drink is given by mouth. This allows your bowels to rest. ??? An IV (intravenous) line is placed in a vein in your arm or hand. The IV line is used to give fluids and medicines. These may be needed to ease pain, nausea, and other symptoms. They may also be needed to treat or prevent infections. ??? A soft, thin, flexible tube (nasogastric tube) is inserted through your nose and into your stomach. The tube is used to remove extra gas and fluid in your stomach so that the bowels can rest. This helps ease symptoms such as pain and swelling. ??? In some cases, surgery is done. This may be neededif the small bowel is almost or totally blocked, if symptoms continue even after treatment, or if there is a hole in the bowel (bowel perforation). During surgery, the blockage is removed. Parts of the bowel may also be removed if there is tissue . Other repair may be done as well, depending on what caused the blockage. Your healthcare provider will give you more information about surgery, if needed. ??? You???ll be watched closely in the hospital until your symptoms improve. Your providerwill tell you when you can go home. ?? Long-term concerns?? After treatment, most people recover with no lasting effects. If a long part of the bowel is removed, there is a greater chance for lifelong digestive problems. Bowel movements may become irregular. Work with your provider to learn the best ways to manage any symptoms you may have, and to protect your health. ?? When to call your healthcare provider Call your provider right away or seek immediate medical care if you have any of the following: ??? Severe pain (call 911) ??? Belly swelling or cramping that won???t go away ??? Can???t pass stool orgas ??? Nausea or vomiting (especially if the vomit looks or smells like stool) ?? Last Reviewed Date: 2021 ?? [id number] The [employer](TM) by [employer]. All rights reserved. This information is not intended as a substitute for professional medical care. Always follow your healthcare professional's instructions. ?? Patient Care team information Care Team Personnel Name: Lola Belcher RN Position: [facility] RN Member Role: Primary Care Nurse Name: Falguni WILSON, Lilian Mary Position: [facility] RN Member Role: Primary Care Nurse Name: Jose Enrique Saul RN Position: [facility] RN Member Role: Primary Care Nurse Name: Symone Mckinnon RN Position: [facility] RN Member Role: Primary Care Nurse Name: Carolyn Pelaez RN Position: [facility] RN Member Role: Primary Care Nurse Name: Fanny Mixon RN Position: [facility] ED RN W/OE and Tasks Member Role: Primary Care Nurse Name: María Ashford RN Position: [facility] AMB Nurse Member Role: Primary Care Nurse Name: Chanelle Hernandez RN Position: [facility] AMB Nurse Member Role: Primary Care Nurse Name: Estelle García RN Position: [facility] RN Member Role: Primary Care Nurse Name: Deanne Rangel RN Position: [facility] RN Member Role: Primary Care Nurse Name: Carine Jimenez RN Position: [facility] SN RN Member Role: Primary Care Nurse Name: Jenelle Campo RN Position: [facility] RN Member Role: Primary Care Nurse Name: Keyla Godwin RN Position: [facility] RN Member Role: Primary Care Nurse Name: Yeimi Devine RN Position: [facility] RN Member Role: Primary Care Nurse Name: Mary Yan RN Position: [facility] RN Member Role: Primary Care Nurse Name: Iliana Pop RN Position: [facility] RN Member Role: Primary Care Nurse Name: Clovis Wang RN Position: [facility] RN Member Role: Primary Care Nurse Name: Alcides Dueñas RN Position: [facility] RN Member Role: Primary Care Nurse Name: Lisa Beatty Position: [facility] Outreach Member Role: Lifetime Consulting Physician Name: Armida Beatty RN Position: [facility] RN Member Role: Primary Care Nurse Name: Deonna Beatty RN Position: [facility] RN Member Role: Primary Care Nurse Name: Roque Villasenor MD Position: [facility] Renal MD Member Role: Lifetime Consulting Physician Address: Address: [address] [place] [address], [address] [facility] [address] Name: Lashon Lovell RN Position: [facility] SN RN Member Role: Primary Care Nurse Name: Kristi Giraldo RN Position: [facility] RN Supv Member Role: Primary Care Nurse Name: Jerrod Casarez RN Position: [facility] RN Member Role: Primary Care Nurse Name: Shane Riley RN Position: [facility] RN Member Role: Primary Care Nurse Name: Isac Plascencia RN Position: [facility] RN Member Role: Primary Care Nurse Name: Rosalva Martin RN Position: [facility] RN Member Role: Primary Care Nurse Name: Sheela Matt RN Position: [facility] RN Member Role: Primary Care Nurse Name: Armida Ochoa RN Position: [facility] RN Member Role: Primary Care Nurse Name: Felipa Diehl RN Position: [facility] HBO Wound Member Role: Primary Care Nurse Name: Evelin Powell RN Position: [facility] AMB Nurse Member Role: Primary Care Nurse Name: Donald Murphy MD Position: [facility] Renal MD Member Role: Lifetime Consulting Physician Address: Address: [address] [place], [place] [address] [place] [address]- Name: Pili Kaba RN Position: [facility] RN Member Role: Primary Care Nurse Name: Alejandro Yanes RN Position: [facility] RN Member Role: Primary Care Nurse Name: Stacey Díaz RN Position: [facility] SN RN Member Role: Primary Care Nurse Name: Jac Reese RN Position: [facility] RN Member Role: Primary Care Nurse Name: Erica Maya Position: [facility] TA Member Role: Lifetime Consulting Physician Name: Gillian Olsen RN Position: [facility] RN Member Role: Primary Care Nurse Name: Celestine Schwartz RN Position: [facility] RN Member Role: Primary Care Nurse Name: Neeta Carpenter RN Position: [facility] RN Member Role: Primary Care Nurse Name: Susie Estrada RN Position: [facility] RN Member Role: Primary Care Nurse Name: Inna Cantor RN Position: [facility] RN Member Role: Primary Care Nurse Name: Chaparrita Pizano DO Position: [facility] Physician (General Medicine) Member Role: PCP Address: Address: [address] [place] [address]- [place] Name: Ning Rolon RN Position: [facility] RN Member Role: Primary Care Nurse Name: Rubi Carrasco RN Position: [facility] SN RN Member Role: Primary Care Nurse Name: Lauryn Holden RN Position: [facility] RN Member Role: Primary Care Nurse Name: Jones Cervantes RN Position: [facility] RN Member Role: Primary Care Nurse Name: Olivia Caputo RN Position: [facility] RN Member Role: Primary Care Nurse Name: Brooklyn Jim RN Position: [facility] RN Member Role: Primary Care Nurse Name: [place] Santoro RN Position: [facility] RN Member Role: Primary Care Nurse Name: Haley Diamond RN Position: [facility] RN Member Role: Primary Care Nurse Name: Ashley Meléndez NP Position: [facility] PCO Associate Professional Member Role: Primary Care Nurse Address: Address: [address] [place] [address] 3rd floor [facility] [place] [address]- Name: Siomara Patricia RN Position: [facility] SN RN Member Role: Primary Care Nurse Name: Neeta Painter RN Position: [facility] RN Member Role: Primary Care Nurse Name: Rosalva Fabian RN Position: [facility] RN Member Role: Primary Care Nurse Name: Bailey Espinal RN Position: [facility] AMB Nurse Member Role: Primary Care Nurse Name: [place] Ramsey RN Position: [facility] RN Member Role: Primary Care Nurse Name: Keyla Bright RN Position: [facility] RN Member Role: Primary Care Nurse Name: Beverley Tatum RN Position: [facility] RN Member Role: Primary Care Nurse Name: Mainor Devries RN Position: [facility] RN Member Role: Primary Care Nurse Name: Yarely Richards RN Position: [facility] Title Searcher Member Role: Primary Care Nurse Name: Oralia Massey RN Position: [facility] RN Member Role: Primary Care Nurse Name: Cassie Villanueva RN Position: [facility] RN Member Role: Primary Care Nurse Name: Taiwo Mcgregor RN Position: [facility] RN Member Role: Primary Care Nurse Name: Cally Funes RN Position: [facility] SN RN Member Role: Primary Care Nurse Name: Marina Willard Position: [facility] AMB [place] Member Role: Primary Care Nurse Name: Lisa Blanton RN Position: [facility] Title Searcher Member Role: Primary Care Nurse Name: Joel Blanton RN Position: [facility] RN Member Role: Primary Care Nurse Name: Danica Stuart RN Position: [facility] AMB Nurse Member Role: Primary Care Nurse Name: Virginia Bacon RN Position: [facility] RN Member Role: Primary Care Nurse Name: Shruthi Ray RN Position: [facility] Onco RN Member Role: Primary Care Nurse Name: Abbe Choe RN Position: [facility] RN Supv Member Role: Primary Care Nurse Name: Farideh Cat LPN Position: [facility] RN Member Role: Primary Care Nurse Name: Janis Morris RN Position: [facility] Title Searcher Member Role: Primary Care Nurse Name: Darrian Chang RN Position: [facility] Title Searcher Member Role: Primary Care Nurse Name: Josef Woods RN Position: [facility] RN Member Role: Primary Care Nurse Name: Siomara Raphael RN Position: [facility] RN Member Role: Primary Care Nurse Name: Jerry Mcneill RN Position: [facility] RN Member Role: Primary Care Nurse Name: JhonLyndsay Galvez Attending Position: [facility] ED Medicine MD Name: Sofia Lantigua RN Position: [facility] ED RN W/OE and Tasks Member Role: Patient Care Provider Name: Angel Aparicio Position: [facility] ED OA Charge Member Role: ED Associate Name: Milagros Carter Position: [facility] ED TA [facility] Member Role: Mortgage Operations Manager Name: Fredi Nesbitt RN Position: [facility] ED RN W/OE and Tasks Member Role: Patient Care Provider Care Team Related Persons Name: IVAN VILLASENOR Address: [place] [address] Name: REYNALDO KAUR Address: home [address] [place] [address] Name: EMMA SERRANO Address: home [address] [address] Name: PATRICK MATA Address: [address] [place] [address] Name: FARIDEH POPE Address: [place] [address]
--- OUTSIDE RECORDS SUMMARY | 2022-11-29 17:41 | XMS_ITS | Continuity of Care Document ---
Author Name Unknown Organization [facility] ter Address [address] [place] [id number]- Care Team Providers Care Central Service Tech Name Role Phone Chaparrita Pizano DO Primary Care Physician Encounter [facility] [facility] Date(s): 05/08/22 - 05/15/[address] [id number]- Encounter Diagnosis Sepsis(Final) - 05/08/22 Diabetes(Final) - 05/09/22 Hyperglycemia(Final) - 05/09/22 On total parenteral nutrition (TPN)(Final) - 05/09/22 Obesity(Final) - 05/09/22 Discharge Disposition: A-D/C Home Attending Physician: Stewart Hicks MD Admitting Physician: Rach SHERIFF, Bety Galvez [...] excoriation hives Active Latex vag rash Active Compazine shortness of breath Active Reglan [...] to receive vaccine 2Admin Note: manufactured by [employer] Medications albuterol 0.042% inhalation solution 3 [...] 03/12/22 12:08:00 EST, Route to Pharmacy Electronically, [facility], Partial fill upon patient request if the prescr... Start Date: 03/12/22 Stop Date: 04/11/22 Status: Ordered dextromethorphan-guaifenesin 10 mg-100 mg/5 mL oral liquid 10 mL, By Mouth, 2 times a day, PRN Cough, Take as needed for cough up to 2 times a day., # 120 mL,0 Refills, Acute 03/09/23 23:00:00 EST, 03/12/22 12:09:00 EST, Syrup, [facility], Partial fill upon patient request if the prescription i... Start Date: 03/12/22 Stop Date: 03/09/23 Status: Ordered Dilaudid Inj 1 mg, Injection, IV Push Slowly, Every 4 hours, PRN for Pain , Severe, Routine, 05/08/22 20:52:00 EDT Start Date: 05/08/22 Stop Date: 05/15/22 Status: Discontinued ENSURE CLEAR LIQD ENSURE CLEAR [...] 03/09/23 23:00:00 EST, 03/12/22 12:10:00 EST, Patch, [facility], Partial fill upon patient request [...] tablet, 0 Refills, Maintenance, 04/02/20 9:29:00 EST, [facility], Partial fill upon patient request [...] 03/12/22 12:06:00 EST, Route to Pharmacy Electronically, [facility], Partial fill uponpatient request [...] 06/21/18 11:05:15 EDT, Route to Pharmacy Electronically, [id number], [facility] Start Date: [...] WITH PROLONGED DEPRESSIVE REACTION Confirmed 02/03/07 Active [facility] Senior Level Patient Confirmed Active ASTHMA [...] for Microbiology Reports Name Date Blood Culture 05/12/22 Blood Culture #2 05/12/22 Blood Culture 05/10/22 Blood Culture #2 05/10/22 Blood Culture 05/08/22 Blood Culture #2 05/08/22 Microbiology Reports TEST:Blood Culture STATUS:Unauthenticated BODY SITE: SOURCE:Blood COLLECTED DATE/TIME:05/12/22 12:00 PM Blood Culture SPECIMEN DESCRIPTION : BLOOD L SPECIAL REQUESTS : NONE CULTURE : NO GROWTH 3 DAYS REPORT STATUS : PRELIMINARY REPORT TEST:Blood Culture, Second Order STATUS:Unauthenticated BODY SITE: SOURCE:Blood COLLECTED DATE/TIME:05/12/22 11:50 AM Blood Culture, Second Order SPECIMEN DESCRIPTION : BLOOD R ARM SPECIAL REQUESTS : NONE CULTURE : NO GROWTH 3 DAYS REPORT STATUS : PRELIMINARY REPORT TEST:Blood Culture STATUS:Auth (Verified) BODY SITE: SOURCE:Blood COLLECTED DATE/TIME:05/10/22 8:54 AM Blood Culture SPECIMEN DESCRIPTION : BLOOD NO SITE SPECIAL REQUESTS : NONE CULTURE : NO GROWTH 5 DAYS. REPORT STATUS : FINAL 05/15/2022 TEST:Blood Culture, Second Order STATUS:Auth (Verified) BODY SITE: SOURCE:Blood COLLECTED DATE/TIME:05/10/22 8:54 AM Blood Culture, Second Order SPECIMEN DESCRIPTION : BLOOD NO SITE SPECIAL REQUESTS : CRITICAL VALUE CALLED AND VERIFIED BY READBACK FOR: GRAM POSITIVE COCCI TO W4, [id number] AT 1629 ON 05/11 BY [employer] [id number] CULTURE : STAPHYLOCOCCUS EPIDERMIDIS This isolate was identified using Maldi-TOF system These AST results were performed on the Microscan ID and AST system Staphylococcus epidermidis was identified by multi-plex PCR REPORT STATUS : FINAL 05/13/2022 ORGANISM STAPHYLOCOCCUS EPIDERMIDIS This isolate was identified using Maldi-TOF system These AST results were performed on the Microscan ID and AST system METHOD MIN. INHIB. CONC. (MCG/ML) CIPROFLOXACIN RESISTANT CLINDAMYCIN RESISTANT ERYTHROMYCIN RESISTANT LEVOFLOXACIN RESISTANT RIFAMPIN SUSCEPTIBLE TRIMETH/SULFAMETHOX SUSCEPTIBLE VANCOMYCIN SUSCEPTIBLE TEST:Blood Culture STATUS:Auth (Verified) BODY SITE: SOURCE:Blood COLLECTED DATE/TIME:05/08/22 10:20 AM Blood Culture SPECIMEN DESCRIPTION : BLOOD SPECIAL REQUESTS : NONE CULTURE : STAPHYLOCOCCUS EPIDERMIDIS This isolate was identified using Maldi-TOF system These AST results were performed on the Microscan ID and AST system REPORT STATUS : FINAL 05/11/2022 ORGANISM STAPHYLOCOCCUS EPIDERMIDIS This isolate was identified using Maldi-TOF system These AST results were performed on the Microscan ID and AST system METHOD MIN. INHIB. CONC. (MCG/ML) CIPROFLOXACIN RESISTANT CLINDAMYCIN RESISTANT ERYTHROMYCIN RESISTANT LEVOFLOXACIN RESISTANT RIFAMPIN SUSCEPTIBLE TRIMETH/SULFAMETHOX SUSCEPTIBLE VANCOMYCIN SUSCEPTIBLE TEST:Blood Culture, Second Order STATUS:Auth (Verified) BODY SITE: SOURCE:Blood COLLECTED DATE/TIME:05/08/22 9:23 AM Blood Culture, Second Order SPECIMEN DESCRIPTION : BLOOD NO SITE SPECIAL REQUESTS : CRITICAL VALUE CALLED AND VERIFIED BY READBACK FOR: GRAM POSITIVE COCCI CALLED TO [id number] W4 ON 05/08/222003 BY TECH [id number] CULTURE : STAPHYLOCOCCUS EPIDERMIDIS Single isolates of coagulase negative Staphylococcus, Micrococcus sp., Bacillus sp., Corynebacterium sp. (or Diptheroids), Cutibacterium (formerly Propionibacterium) acnes and Viridans group streptococci could be skin contaminates. Multiple isolates of these organisms are more likely to be significant. SUSCEPTIBILITY TESTING NOT ROUTINELYPERFORMED ON THIS ISOLATE. Staphylococcus epidermidis was identified by multi-plex PCR REPORT STATUS : FINAL 05/09/2022 Radiology Reports * Exam Date Time Procedure Performing Provider Status 05/08/22 9:35 AM Chest 2 Views Frontal and Lat Bein , Ricky jalyn; Auth (Verified) Notes: (Chest 2 Views Frontal and Lat) Reason For Exam: Shortness of Breath, Fever;Other: RESULT: Chest 2 Views Frontal and Lat Chest 2 Views Frontal and Lat Hx of Present Illness: Pt reports she has a Dual Polanco catheter and was suppose to have TPA injected into cathter due to one side not working, until they checked her Temperature w fever of 101, pt was then transported to ED by staff. Pt c o head pain , brain fog pt w; Reason: Other:; Shortnessof Breath, Fever; Clinical Question(s): Pneumonia COMPARISON: 02/27/2022. FINDINGS: LINES AND TUBES: There is a left-sided central venous catheter with the tip projecting over the region of the SVC. LUNGS AND PLEURA: The lung volumes are low. No focal consolidation or pleural effusion. Normal pulmonary vascularity. No pleural effusion. No pneumothorax. HEART, MEDIASTINUM AND LISA: Unchanged cardiomediastinal silhouette. BONES AND SOFT TISSUES: No acute abnormality. IMPRESSION: Low lung volumes. No focal consolidation or pleural effusion. WSN: [id number] Ordering Physician: Radha Crowder Dictated By: Pili Galeas MD Dictated Date/Time: 05/08/22 9:43 am Reviewed By: Pili Galeas MD Signed By: Pili Galeas MD Signed Date/Time: 05/08/22 9:43 am Transcribed By: DEIDRE Transcribed Date/Time: 05/08/22 9:39 am Vital Signs Most recent to oldest [Reference Range]: 1 2 3 Height 155 cm (05/14/22 3:07 AM) 155 cm (05/13/22 11:36 PM) 155 cm (05/13/22 7:55 PM) Weight 124.75 kg (05/09/22 1:36 PM) 276 kg (05/08/22 8:02 PM) 125.5 kg (05/08/22 2:30 PM) Oxygen Saturation [94-100 %] 97 % (05/15/22 7:00 AM) 98 % (05/15/22 3:00 AM) 99 % (05/14/22 11:00 PM) Pulse Rate [55-90 bpm] 79 bpm (05/15/22 7:00 AM) 75 bpm (05/15/22 3:00 AM) 79 bpm (05/14/22 11:00 PM) Body Mass Index [18.5-24.99 kg/m2] 51.93 kg/m2 *>HHI* (05/09/22 1:36 PM) 114.88 kg/m2 *>HHI* (05/08/22 8:02 PM) 52.24 kg/m2 *>HHI* (05/08/22 2:30 PM) Blood Pressure [90-138/55-84 mm Hg] 126/87mm Hg (05/15/22 7:00 AM) 121/58mm Hg (05/15/22 3:00 AM) 109/56mm Hg (05/14/22 11:00 PM) Respiratory Rate [16-30 br/min] 17 br/min (05/15/22 8:35 AM) 18 br/min (05/15/22 8:05 AM) 20 br/min (05/15/22 7:00 AM) Temperature [96.8-100.4 DegF] 98.3 DegF (05/15/22 7:00 AM) 98.1 DegF (05/15/22 3:00 AM) 98.4 DegF (05/14/22 11:00 PM) Liters per Minute 1 L/min (05/13/22 7:55 PM) 2 L/min (05/10/22 3:09 AM) 1 L/min (05/09/22 8:02 PM) Mode of Delivery (Oxygen) Room air (05/15/22 7:00 AM) Room air (05/15/22 3:00 AM) Room air (05/15/22 2:00 AM) Blood pressure sites Arm, right (05/15/22 7:00 AM) Arm, right (05/15/22 3:00 AM) Arm, right (05/14/22 11:00 PM) Temperature Route Oral (05/15/22 7:00 AM) Oral (05/15/22 3:00 AM) Oral (05/14/22 11:00 PM) Dry Weight 276 kg (05/08/22 8:02 PM) 125.5 kg (05/08/22 2:30 PM) 125.5 kg (05/08/22 8:27 AM) Weight Obtained Via Patient/family stated (05/09/22 1:36 PM) Patient/family stated (05/08/22 8:02 PM) Dry Weight Obtained Via Patient/family stated (05/08/22 8:02 PM) Social History Social History Type Response Smoking Status Former smoker; Other : quit 04/2015; entered on: 01/30/16 Sex Admission evaluation note * Rory MARES, Francia Hi: PERFORM, MODIFY, MODIFY, MODIFY, MODIFY, MODIFY, MODIFY, MODIFY Event Display: Admission Note Authored Date: Patient: ??LOVING, VILMA ? Age:??46 Years?Sex:??Female?:??1975?? History of Present Illness The patient is a 46-year-old female with past medical history of insulin dependent diabetes type 2,fibromyalgia, chronic abdominal pain, pelvic pain syndrome, malabsorption requiring TPN with Polanco, morbid obesity, obesity hypoventilation syndrome, asthma/COPD, AURELIO, noncompliant with CPAP,??hyper tension, hyperlipidemia,??GERD, erosive gastritis,?? migraine headaches, bipolar disorder, chronic interstitial cystitis, neurogenic bladder, optic neuritis, endometriosis/adenomyosis??s/p total abdominal hysterectomy and bilateral salpingo-oophorectomy; history of SBO obstruction status post exploratory laparotomy with lysis of adhesions/mesh removal multiple times in the past, chronic hypomagnesemia due to GI malabsorption issues???on??scheduled??and supplemental IV magnesium??who presents with fevers. ?Around 2 AM, ??the patient woke up with diffuse body aches shaking chills, headache and nausea. ??She reports a fever of 101.4.?? She reports she is unable to have Tylenol or NSAIDs dueto allergies. ??She went to the infusion clinic this morning to have tPA due to a??clogged port.? She states she is unable to withdraw from one of the Polanco ports and she waited 2 weeks for an appointment at the infusion clinic. She was found to have a fever of 102.3 at the infusion suite and she was advised to come to the emergency Department.?? Of note, she was admitted with MSSA bacteremia secondary to a PICC line infection at the end of February 2022.? Infectious disease was??following at that time and??she was discharged on??IV cefazolin after her PICC?? line was removed and replaced with a Polanco.?? She denies vomiting, any changes in stool, chest pain, shortness of breath, cough, rashes, dysuria.?? She does report chronic incontinence and back pain.? In the ED, the patient is febrile to 100.2, tachy to 129; blood pressure is stable.?? CXR?? shows no focal consolidation or pleural effusion.?? Laboratory data shows glucose of 260 and alk phos of117.?? Urinalysis shows 3+ glucose.?? Dr. Slaughter from infectious disease recommends??IV meropenem andvancomycin until blood cultures results.?? She is admitted with fever, and possible bacteremia/sepsis. Review of Systems Constitutional:??No weight loss.?? Reports??fever, chills, weakness. Allergy/Immune: Denies any??Eczema or hives Eyes:??No visual loss, yellow sclera ENT:??No hearing loss, sneezing, congestion, runny nose or sore throat. Respiratory:??No shortness of breath, cough or sputum production. Cardiovascular:??No chest pain, chest pressure or chest discomfort.?? Occasional palpitations.?? Nopedal edema. Gastrointestinal:??Nausea, vomiting, diarrhea. Chronic abdominal pain.?? No blood in stool. Genitourinary:??No burning micturition. No urinary frequency.?Incontinence. Neurologic: Headache, dizziness.?? No syncope, unilateral weakness, ataxia, numbness or tingling inthe extremities. No change in bowel or bladder control. Musculoskeletal:??Back pain. Hematologic/Lymphatics:??No bleeding or bruising. No painful lymph nodes. Skin:??No rash or itching. Endocrine:??No reports of sweating. No cold or heat intolerance. No polyuria or polydipsia. Psychiatric:??No depression or anxiety. Objective Vital Signs?? Temperature: 99.4 DegF (05/08/22 20:00:00) Temperature Route: Oral (05/08/22 20:00:00) Pulse Rate: 70 bpm (05/08/22 20:00:00) Respiratory Rate: 16 br/min (05/08/22 20:00:00) Vented: No (05/08/22 19:42:00) Systolic Blood Pressure: 136 mm Hg (05/08/22 20:00:00) Diastolic Blood Pressure: 82 mm Hg (05/08/22 20:00:00) Blood pressure sites: Arm, left (05/08/22 20:00:00) Mean Arterial Pressure: 111 mm Hg (05/08/22 14:30:00) Pulse Pressure: 22 mm Hg (05/08/22 19:42:00) Oxygen Saturation: 100 % (05/08/22 20:00:00) Liters per Minute: 1 L/min (05/08/22 20:00:00) Mode of Delivery (Oxygen): Nasal cannula (05/08/22 20:00:00) Early Warning Score: 0 (05/08/22 20:33:08) ? Intake/Output? 05/08 10:27 05/08 07:00 05/07 07:00 05/06 07:00 05/05 07:00 ?? 05/08 21:03 05/08 21:03 05/08 06:59 05/07 06:59 05/06 06:59 Intake ?230 ?230 ?0 ?0 ?0 Output ?0 ?0 ?0 ?0 ?0 Net Total ?230 ?230 ?0 ?0 ?0 ? Physical Exam Constitutional: Alert, in no??distress. Mental Status: Oriented to person, place and time. Head: Normocephalic. Eyes: Pupils are equal, round and reactive to light. Extraocular muscles intact. Ear, Nose and Throat: Oropharynx clear, mucous membranes moist. Ears and nose without masses, lesions or deformities. Trachea midline. Neck: Supple, Full range of motion. Respiratory: Clear to auscultation. No wheezing, rales or rhonchi. Cardiovascular: S1 S2 regular. No murmurs, rubs or gallops. Gastrointestinal: Abdomen soft, non-tender, non-distended. Normal bowel sounds. No pulsatile mass. No hepatosplenomegaly. Genitourinary: No costovertebral angle tenderness. Neurologic: Cranial nerves II-XII grossly intact. No focal neurological deficits. Flexor plantar response. Moves all extremities spontaneously. Sensation intact bilaterally. Skin: No rashes or lesions. No petechiae or purpura.?? Musculoskeletal: No cyanosis or clubbing. No gross deformities. Normal range of motion. Heme/Lymphatics/Immun: Palpation of neck reveals no swelling or tenderness of neck nodes. Psychiatric: Normal mood and affect Assessment/Plan Assessment:??The patient is a 46-year-old female with past medical history of insulin dependent diabetes type 2, fibromyalgia, chronic abdominal pain, pelvic pain syndrome, malabsorption requiring TPN with Polanco, morbid obesity, obesity hypoventilation syndrome, asthma/COPD, AURELIO, noncompliant with CPAP, hypertension, hyperlipidemia, GERD, erosive gastritis, migraine headaches, bipolar disorder,chronic interstitial cystitis, neurogenic bladder, optic neuritis, endometriosis/adenomyosis s/p total abdominal hysterectomy and bilateral salpingo-oophorectomy; history of SBO obstruction status post exploratory laparotomy with lysis of adhesions/mesh removal multiple times in the past, chronic hypomagnesemia due to GI malabsorption issues???on scheduled and supplemental IV magnesium who presents with fevers. Around 2 AM, the patient woke up with diffuse body aches shaking chills, headache and nausea. She reports a fever of 101.4. She reports she is unable to have Tylenol or NSAIDs due to al lergies. She went to the infusion clinic this morning to have tPA due to a clogged port. She statesgayle is unable to withdraw from one of the Polanco ports and she waited 2 weeks for an appointment at the infusion clinic. She was found to have a fever of 102.3 at the infusion suite and she was advised to come to the emergency Department. Of note, she was admitted with MSSA bacteremia secondary toa PICC line infection at the end of February 2022. Infectious disease was following at that time andgayle was discharged on IV cefazolin after her PICC line was removed and replaced with a Polanco. Shedenies vomiting, any changes in stool, chest pain, shortness of breath, cough, rashes, dysuria. Shedoes report chronic incontinence and back pain. ?? In the ED, the patient is febrile to 100.2, tachy to 129; blood pressure is stable. CXR shows no focal consolidation or pleural effusion. Laboratory data shows glucose of 260 and alk phos of 117. Urinalysis shows 3+ glucose. Dr. Slaughter from infectious disease recommends IV meropenem and vancomycin until blood cultures results. She is admitted with fever, and possible bacteremia/sepsis. ?? Fever, possible??sepsis, bacteremia: 46 year old female with complicated medical history?? presents with fever.?? Preliminary blood culture results shows gram positive cocci, staph epi.?? Patient was initiated on Vancomycin and meropenem in the ED per discussion with ID. -Continue Vancomycin, Meropenem pending final blood culture results. -Follow up blood culture results. -Obtain formal ID consult. ?? GI Malabsorption, chronic hypomagnesium: -Patient tells me she gets IVPB magnesium 8 Gm on Sat and 4 Gm on Tuesday and Tuesday.?? She received her IV magnesium already for today.?? She also receives 3 Gm magnesium via TPN. -Patient on TPN via Polanco at home. -Will obtain nutrition consult. -Check magnesium level., CMP daily -While awaiting TPN, will keep on D5LR. ?? Diabetes: Patient states she receives Lantus 30 units BID.?? Given that she is not receiving TPN currently, will decrease Lantus by half and adjust as necessary.?? -Follow Glucose POC every 6 hours. -MARLA based on POC. ?? COPD: Stable.?? continue prn albuterol. ?? Chronic abdominal pain, fibromyalgia: Patient takes liquid Dilaudid at home, which is not available on formulary. - Will order prn IV Dilaudid. ?? GERD, erosive gastritis: -Continue Pantoprazole 40 mg daily. ?? AURELIO: -Will order CPAP. ?? Hypertension: -Continue home dose of propranolol. ?? Hyperlipidemia: -Unclear if patient is taking anything for this.?? Simvastatin has not been filled in quite a while. ?? Migraine Headaches: -prn sumatriptan. ?? Neurogenic bladder: -pt states she no longer straight catheterizes for this. -bladder scans ?? Diet: TPN ?? DVT prophylaxis: Pneumatic compression boots. Heparin SC. ?? Code Status:?? Full code.? Discharge Planning:?? TBD ? Histories Allergies Allergies ?(Active and Proposed [...] no longer needed Trigger point of abdomen [facility] Senior Level Patient ? Past Surgical [...] Social History Alcohol Details:??Use: Past. 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 Exercise Details:??Self assessment: Poor condition. ??Regular exercise: No. Home/Environment Details:??Living situation: Home/Independent. ??Lives with: Significant other, Cousin. Nutrition/Health Details:??Caffeine intake amount: Minimal Fiber. Sexual Details:??Sexually involved in last 6 months: Yes. ??Sexual orientation: Homosexual. Substance Abuse Details:??Use: Past. ??Other: occasional edibles. Tobacco Details:??Former smoker, Other: quit 04/2015. ? Psychosocial History ? Family History Mother: Asthma; Degenerative disc disease; Endometriosis; Hypertension ? Medications Home Medications Albuterol (albuterol CFC free 90 mcg/inh inhalation aerosol)?2?puff(s)?Inhalation?4 times a day?as needed?for wheezing Albuterol (albuterol 0.042% inhalation solution)?3?Milliliter?1.25?Milligram?Neb?4 times a day?as needed?Wheezing/Shortness of Breath Albuterol (Ventolin HFA 108 mcg/inh inhalation aerosol with adapter)?2?puff(s)?Inhalation?4 times a day?as needed?for wheezing Bisacodyl (bisacodyl [...] Mouth?Every 6 hours?as needed?as needed for pain Hydromorphone (HYDROmorphone 1 mg/mL oral liquid)?TAKE 4 ML BY MOUTH EVERY 6 HOURS NEEDED Insulin Aspart (NovoLOG FlexPen 100 units/mL subcutaneous [...] maximum of 2 ? Inpatient Medications Medications (18) Active SCHEDULED: (8) Insulin Glargine 100 units/mL Inj (Insulin Glargine Inj) ??30 units 0.3 mL, Subcutaneous Injection,2 times a day Insulin Lispro 100 units/mL Inj (3mL) (Insulin LISPRO Sliding Scale) ??2-10 units, Subcutaneous Injection, 3 times a day before meals Lorazepam 0.5 mg Tablet (LORazepam 0.5 mg oral tablet) ??0.5 mg, By Mouth, Daily at bedtime Meropenem 1 Gm Inj (Meropenem Extended IVPB) ??1,000 mg 30 mL, IVPB, Every 8 hours NaCl 0.9% Flush 3ml (NaCL 0.9% Flush) ??3 mL, IV Push, Every 8 hours Pantoprazole 40 mg EC Tablet (pantoprazole 40 mg oral delayed release tablet) ??40 mg, By Mouth, Daily Propranolol 60 mg CR Capsule (propranolol 60 mg oral capsule, extended release) ??120 mg, By Mouth,Daily at bedtime Vancomycin 1500 mg Inj (Vancomycin IVPB) ??1.5 Gm, IVPB, Every 12 hours CONTINUOUS: (1) D5%LR (1000 mL) Cont IV 1,000 mL (D5%/LR 1,000 mL) ??1,000 mL, IV Infusion, 75 mL/hr PRN: (9) Albuterol 90mcg/Inhalation Inhaler HFA (albuterol CFC free 90 mcg/inh inhalation aerosol) ??180 mcg2 puffs, Inhalation, 4 times a day Dextromethorphan-Guaifenesin 20 mg-200 mg/10 mL Liqu UD (Robitussin DM Liquid) ??10 mL, By Mouth, Every 4 hours diphenhydrAMINE 50 mg/mL Inj (Benadryl Inj) ??50 mg 1 mL, IV Push, Every 6 hours HYDROmorphone 1 mg/mL Inj Syringe (Dilaudid Inj) ??1 mg 1 mL, IV Push Slowly, Every 4 hours NaCl 0.9% Flush 3ml (NaCL 0.9% Flush) ??3 mL, IV Push, Every 8 hours Ondansetron 2mg/mL Inj (2mL Vial) (Zofran Inj) ??4 mg, IV Push, Every 6 hours Polyethylene Glycol 17 Gm Powder (MiraLax Powder) ??17 Gm 1 pack/packet, By Mouth, Daily Senna 8.6 mg / Docusate 50 mg tablet (Docusate/Senna Tablet) ??1 tablet, By Mouth, 2 times a day Simethicone 80 mg Chewable Tablet (Simethicone Tablet) ??80 mg, Chew, 3 times a day ? Results Recent Labs BLOOD COUNT & DIFF WBC 7.1 k/mm3 ()?? 05/08/2022 09:23 RBC 4.28 m/mm3 ()?? 05/08/2022 09:23 Hgb 11.2 Gm/dL (Low)?? 05/08/2022 09:23 Hct 34.3 % (Low)?? 05/08/2022 09:23 MCV 80.1 femtoliters ()?? 05/08/2022 09:23 MCH 26.2 pg (Low)?? 05/08/2022 09:23 MCHC 32.7 g/dL (Low)?? 05/08/2022 09:23 Platelet Count 290 k/mm3 ()?? 05/08/2022 09:23 RDW-SD 37.9 femtoliters ()?? 05/08/2022 09:23 MPV 9.0 femtoliters (Low)?? 05/08/2022 09:23 Nucleated RBC (Automated) 0.0 #/100 WBC'S ()?? 05/08/2022 09:23 Abs. NRBC 0.0 k/mm3 ()?? 05/08/2022 09:23 Abs. Neut 5.9 k/mm3 ()?? 05/08/2022 09:23 Abs. Lymph 0.7 k/mm3 (Low)?? 05/08/2022 09:23 Abs. [place] 0.4 k/mm3 ()?? 05/08/2022 09:23 Abs. Eo 0.0 k/mm3 ()?? 05/08/2022 09:23 Abs. Baso 0.0 k/mm3 ()?? 05/08/2022 09:23 Neut % 83.7 % (High)?? 05/08/2022 09:23 Lymph % 9.9 % (Low)?? 05/08/2022 09:23 [place] % 5.4 % ()?? 05/08/2022 09:23 Eos % 0.3 % ()?? 05/08/2022 09:23 Baso % 0.3 % ()?? 05/08/2022 09:23 Imm Gran 0.4 % ()?? 05/08/2022 09:23 Abs. Imm Gran 0.0 k/mm3 ()?? 05/08/2022 09:23 ?? CHEM GENERAL Sodium 130 mmol/L (Low)?? 05/08/2022 09:07 Potassium 4.4 mmol/L ()?? 05/08/2022 09:07 Chloride 94 mmol/L (Low)?? 05/08/2022 09:07 Bicarbonate Level 26 mmol/L ()?? 05/08/2022 09:07 Anion Gap 10 ()?? 05/08/2022 09:07 Glucose Level 260 mg/dL (High)?? 05/08/2022 09:07 Glucose, POC 166 mg/dL (High)?? 05/08/2022 16:40 BUN 11 mg/dL ()?? 05/08/2022 09:07 Creatinine-Blood 0.5 mg/dL ()?? 05/08/2022 09:07 Estimated GFR Creatinine 115 ML/MIN/1.73 M2 ()?? 05/08/2022 09:07 Calcium 8.9 mg/dL ()?? 05/08/2022 09:07 Protein, Total 6.9 Gm/dL ()?? 05/08/2022 09:07 Albumin 4.0 Gm/dL ()?? 05/08/2022 09:07 AG Ratio 1.4 ()?? 05/08/2022 09:07 Alkaline Phosphatase 117 units/L (High)?? 05/08/2022 09:07 AST (SGOT) 17 units/L ()?? 05/08/2022 09:07 ALT (SGPT) 13 units/L ()?? 05/08/2022 09:07 Bilirubin, Total 0.9 mg/dL ()?? 05/08/2022 09:07 Lactate 1.5 mmol/L ()?? 05/08/2022 09:07 ?? ENDOCRINE/TUMOR MARKER Blood 2 mIU/mL ()?? 05/08/2022 09:07 ?? UA/URINALYSIS Appear/Color, Urine LIGHT YELLOW ()?? 05/08/2022 14:30 Specific [place], Urine 1.025 ()?? 05/08/2022 14:30 pH, Urine 5.5 ()?? 05/08/2022 14:30 Albumin, Urine TRACE (Abnormal)?? 05/08/2022 14:30 Glucose, Urine 3+ (Abnormal)?? 05/08/2022 14:30 Ketones, Urine NEGATIVE ()?? 05/08/2022 14:30 Bilirubin, Urine NEGATIVE ()?? 05/08/2022 14:30 Hemoglobin, Urine NEGATIVE ()?? 05/08/2022 14:30 Nitrite, Urine NEGATIVE ()?? 05/08/2022 14:30 Leukocyte, Urine NEGATIVE ()?? 05/08/2022 14:30 Urobilinogen NORMAL mg/dL ()?? 05/08/2022 14:30 WBC's, Urine 1 /HPF ()?? 05/08/2022 14:30 RBC's, Urine 1 /HPF ()?? 05/08/2022 14:30 Bacteria SLIGHT HPF (Abnormal)?? 05/08/2022 11:40 Squamous Epith 1 /HPF ()?? 05/08/2022 14:30 Mucus SLIGHT /LPF ()?? 05/08/2022 14:30 Hold Urine Culture Testing available 48 hours from time of collection. ()?? 05/08/2022 14:30 ?? VIROLOGY Influenza A PCR NEGATIVE ()?? 05/08/2022 10:06 Influenza B PCR NEGATIVE ()?? 05/08/2022 10:06 RSV PCR NEGATIVE ()?? 05/08/2022 10:06 COVID-19 PCR Specimen Source NASAL ()?? 05/08/2022 10:06 COVID-19 PCR Result NEGATIVE ()?? 05/08/2022 10:06 COVID-19 POC Result NEGATIVE ()?? 05/08/2022 08:21 ? EKG study * Event Display: ECG 12-Lead Authored Date: Please click on pdf link to open report * Event Display: ECG 12-Lead Authored Date: Ventricular Rate: 120 BPM Atrial Rate: 120 BPM P-R Interval: 126 ms QRS Duration: 84 ms Q-T Interval: 314 ms QTC Calculation(Bazett): 443 ms P [place]: 17 degrees R [place]: -13 degrees T [place]: 6 degrees Sinus tachycardia Possible Anterior infarct (cited on or before 27-FEB-2022) Abnormal ECG When compared with ECG of 27-FEB-2022 09:37, No significant change was found Confirmed by STEWART DUMONT MD ([id number]) on 05/10/2022 7:35:00 AM Matthews: STEWART DUMONT MD Heart * Event Display: Echocardiogram - Complete Authored Date: Transthoracic Echocardiography Report (TTE) Patient Demographics Patient Name VILMA SERRANO Date of Study 05/12/2022 Corporate Gender Female Facility Race Ethnicity Date of 1975 Height: 61.02 inches Age 46 year(s) Weight: 273.37 pounds Accession Number [id number] BSA: 2.16 m2 Room Number [id number] BMI: 51.61 kg/m2 Referring Physician Abiola Pandya Interpreting Alberto Borjas MD, MD Physician Mass Spectrometry Manager Mervat Armijo Indications Endocarditis. Clinical History Insulin dependent diabetes type 2, fibromyalgia, chronic abdominal pain, pelvic pain syndrome, malabsorption requiring TPN with Polanco, morbid obesity, obesity hypoventilation syndrome, asthma/COPD, AURELIO, noncompliant with CPAP, hypertension, hyperlipidemia, GERD, erosive gastritis, migraine headaches, bipolar disorder, chronic interstitial cystitis, neurogenic bladder, optic neuritis, endometriosis/adenomyosis s/p total abdominal hysterectomy and bilateral salpingo-oophorectomy; history of SBO. Study Data Type of Study TTE procedure:Echo Complete-Doppler, Colorflow, M-Mode. Study Date05/12/2022 Start Time: 03:15 PM Study Location: [facility] [place] Adult Echo Study Status: Bedside Patient Status: Routine Technical Quality: Adequate Blood Pressure:124/73 mmHg EKG: Within normal limits HR: 73 bpm Allergies - Other allergy:(seafood,lantiseptic skin protectant,). - Contrast. - Other allergy:(ceftriaxone). - Other allergy:(compazine). - Doxycycline. - Other allergy:(famotidine). - Fentanyl. - Iodine. - Latex. - Levaquin. - Lyrica. - Morphine. - Other allergy:(nexium). - Other allergy:(nicotine patch, pepcid, reglan, zofran). - Tylenol / codeine. - Penicillins. 2D Measurements LV Diastolic Dimension: 5.7 cm LV Systolic Dimension: 4.2 cm LV Septum Diastolic: 0.9 cm LV PW Diastolic: 0.9 cm AO Root Dimension: 3 cm LVOT Stroke Volume: 38.31 ml LVOT: 2 cm Stroke Volume Index17.74 ml/m2 Cardiac Index:1.3 l/min/m2 Doppler Measurements AV Peak Velocity: 107 cm/s MV Peak E-Wave: 86.5 cm/s AV Peak Gradient: 4.58 mmHg MV Peak A-Wave: 76.7 cm/s AV Mean Gradient: 3 mmHg MV E/A Ratio: 1.13 AV VTI:21.3 cm LVOT Peak Velocity: 68.9 cm/s LVOT VTI12.2 cm MV Deceleration Time: 188 msec AV Area (Continuity):1.8 cm2 PV Peak Velocity: 29.9 cm/s PV Peak Gradient: 0.36 mmHg E' Septal Velocity: 7.29 cm/s E' Lateral Velocity: 8.27 cm/s E/Med E':11.64827 E/Lat E':10.93288 Cardiac Anatomy Left Ventricle/Interventricular Septum The left ventricle is mildly dilated. Left ventricular wall thickness is normal. The LV systolic function appears grossly normal on limited views. Diastolic function appears normal. Left Atrium/Interatrial Septum The left atrium is normal in size. Aortic Valve The aortic valve is probably trileaflet. There is no aortic stenosis. There is no aortic regurgitation. Mitral Valve The mitral valve appears normal. There is no significant mitral regurgitation. Aorta The aortic root is normal in size. Right Ventricle The right ventricle is poorly visualized, but appears grossly normal on limited views. Right Atrium The right atrium is normal in size. Pulmonic Valve The pulmonic valve is poorly visualized. Tricuspid Valve The tricuspid valve is poorly visualized. Pumonary Artery An accurate pulmonary artery pressure could not be obtained. Venous Structures The inferior vena cava appears grossly normal. Pericardium/Extracardiac There is no significant pericardial effusion. Summary 1) Technically difficult study 2) The left ventricle is mildly dilated. The LV systolic function appears grossly normal on limited views. 3) The right ventricle is poorly visualized, but appears grossly normal on limited views. 4) No obvious valvular abnormalities Comparison Comparison is made to the report of the study of March 02, 2022. No significant change Signature * Event Display: Echocardiogram - Complete Authored Date: [id number] Note * Lexi Dukes RN: PERFORM Event Display: Discharge/Transfer Note Hospital Authored Date: [id number] Nursing Discharge Note Entered On: 05/15/2022 10:52 EDT Performed On: 05/15/2022 10:51 EDT by Lexi Dukes RN Nursing Discharge Note 2 Discharge Time : 05/15/2022 10:50 EDT Discharge Level of Care at Discharge : Home/Nursing Home/Foster Care Discharge [employer](v001) : [employer] Patient Left Unit Via : Wheelchair Patient Accompanied Off Unit with : Responsible adult DC Instructions Provided & Signed by Pt : Yes Patient Understands D/C Instructions : Yes Patient Instructions Discharge Signed : Yes Did Pt have Specialty Bed or Wound Vac : No Lexi Dukes RN - 05/15/2022 10:51 EDT * Kurt SHERIFF, Stewart Hughes: PERFORM Event Display: Discharge/Transfer Note Hospital Authored Date: [id number] Patient: ??LOVING, VILMA ? Age:??46 Years?Sex:??Female?:??1975?? Patient Information Discharge Location: Primary Care Physician: Chaparrita Pizano DO Admit Date/Time: 05/08/22 10:27 Discharge Disposition Discharge Disposition: Home with Home Health Discharge Diagnosis Diabetes (E11.9) Hyperglycemia (R73.9) Obesity (E66.9) On total parenteral nutrition (TPN) (Z78.9) Sepsis (A41.9) Staphylococcus epidermidis bacteremia (R78.81) ?? _ Discharge Medications Albuterol (albuterol CFC free 90 mcg/inh inhalation aerosol)?2?puff(s)?Inhalation?4 times a day?as needed?for wheezing Albuterol (albuterol 0.042% inhalation solution)?3?Milliliter?1.25?Milligram?Neb?4 times a day?as needed?Wheezing/Shortness of Breath Albuterol (Ventolin HFA 108 mcg/inh inhalation aerosol with adapter)?2?puff(s)?Inhalation?4 times a day?as needed?for wheezing Bisacodyl (bisacodyl [...] Mouth?Every 6 hours?as needed?as needed for pain Hydromorphone (HYDROmorphone 1 mg/mL oral liquid)?TAKE 4 ML BY MOUTH EVERY 6 HOURS NEEDED Insulin Aspart (NovoLOG FlexPen 100 units/mL subcutaneous [...] up to a maximum of 2 ? Vancomycin IV push therapy 1.5 g 2 times a day until??05/26/2022 Vancomycin??Polanco line lock therapy, 3 mL administration to be left in for 4 hours. ??Repeat every 24 hours? Hospital Course ?? 46-year-old female with past medical history of insulin dependent diabetes type 2, fibromyalgia, chronic abdominal pain, pelvic pain syndrome, malabsorption requiring TPN with Polanco, morbid obesity, obesity hypoventilation syndrome, asthma/COPD, AURELIO, noncompliant with CPAP, hypertension, hyperlipidemia, GERD, erosive gastritis, migraine headaches, bipolar disorder, chronic interstitial cystitis, neurogenic bladder, optic neuritis, endometriosis/adenomyosis s/p total abdominal hysterectomy andbilateral salpingo-oophorectomy; history of SBO obstruction status post exploratory laparotomy ith lysis of adhesions/mesh removal multiple times in the past, chronic hypomagnesemia due to GI malabsor ption issues???on scheduled and supplemental IV magnesium who presented with fevers, chills. She was admitted with fever, and found to have Staph Bacteremia.?? Bacteremia cleared and patient was discharged home on IV vancomycin and vancomycin lock therapy arranged via??home services. ? Fever, resolved Coagulase neg staph??bacteremia/sepsis: patient with above history and recent history of MSSA bacteremia??treated and completed??with Cefazolin??presents with fever/chills.?? Preliminary blood culture results shows gram positive cocci, staph epi.?? / on 05/08 Patient was initiated on Vancomycin and meropenem in the ED per discussion with ID. ?? -ID recommended??antibiotic lock therapy??(per??protocol, have ordered for??vancomycin??antibiotic lock, for double-lumen??central catheter)???discussed with RN??to confirm with pharmacy??protocol as mentioned??of??dwell time of 4 hours??(discard lock solution??after that and flush??the lumens??with normal saline??prior to use of??catheter) Meropenem was discontinued as per ID recommendations,??continue vancomycin,??vancomycin??antibioticlock therapy??to be continued at least 14 days??for both Polanco lumens for the duration of antibiotic therapy??(to be decided) -/ blood cultures from 05/10 positive.?? We will repeat blood cultures today to document clearance, one from line one from peripheral ?? -Following repeat cultures from 05/12, remain negative??to date -Echocardiogram with no obvious valvular abnormality -Patient discharged with home services arranged for??IV vancomycin administration as well as IV vancomycin lock therapy??to be completed??11/25/2022 to complete total of 14 days -Infectious disease doctors will arrange follow-up ? GI Malabsorption chronic hypomagnesium: No changes in patient's regular TPN administration as well as regular??magnesium??administrations coordinated by patient and??primary care physician ? Diabetes Mellitus type 2 : Continue home basal bolus insulin regiment ? COPD: Stable.?? continue prn albuterol. ?? Chronic abdominal pain, fibromyalgia: h/o partial SBO and adhesiolysis in 2013 h/o Ex laparotomy, adhesiolysis and b/l salpingo-oophorectomy in 2020 ( for complex ovarian mass) Continue home Dilaudid, opioid contract with PCP ?? GERD, erosive gastritis: -Continue Pantoprazole 40 mg daily. ?? Hypertension: -Continue home dose of propranolol. ?? Migraine Headaches: -prn sumatriptan. ?? Neurogenic bladder: ? Diet: TPN ? Objective Measurements?? Height: 155 cm (05/14/22) Weight: 124.75 kg (05/09/22) Dry Weight: 276 kg (05/08/22) Body Mass Index:??51.93 kg/m2??Critical (05/09/22) ? Vital Signs?? Temperature: 98.3 DegF (05/15/22 07:00:00) Temperature Route: Oral (05/15/22 07:00:00) Pulse Rate: 79 bpm (05/15/22 07:00:00) Respiratory Rate: 18 br/min (05/15/22 08:05:00) Systolic Blood Pressure: 126 mm Hg (05/15/22 07:00:00) Diastolic Blood Pressure:??87 mm Hg??High (05/15/22 07:00:00) Blood pressure sites: Arm, right (05/15/22 07:00:00) Pulse Pressure: 39 mm Hg (05/15/22 07:00:00) Oxygen Saturation: 97 % (05/15/22 07:00:00) Mode of Delivery (Oxygen): Room air (05/15/22 07:00:00) FiO2: 21 % (05/15/22 01:26:00) Early Warning Score: 4 (05/15/22 08:12:47) ? . Physical Exam ?? General: Alert, obese, in no acute distress. Neck: Supple, Full range of motion. Trachea midline. No JVD or bruits. Respiratory: Clear to auscultation and percussion. No wheezing or rhonchi. No use of acessory muscles. No tactile fremitus.?Polanco in place, site good?? Cardiovascular: S1-S2 regular, no MRG Gastrointestinal: Abdomen soft, non-tender, non-distended. Normal bowel sounds. No pulsatile mass. No hepatosplenomegaly. Extremities: No lower extremity pitting pedal edema. No cyanosis or clubbing. Neurologic: AAOx3, Cranial nerves II-XII grossly intact. Speech normal. No focal neurological deficits. Deep tendon reflexes +2 bilaterally. Flexor plantar response. Moves all extremities spontaneously. Sensation intact bilaterally. Skin: No rashes or lesions. No petechiae or purpura.?? Pending Results Blood Culture ordered on 05/10/2022 Blood Culture ordered on 05/12/2022 Blood Culture #2 ordered on 05/12/2022 Follow-Up Appointments Added Follow Up ?Time Frame ?Comments Jerica DO, Chaparrita Gupta?3-5 day: call to discuss follow up visit Patient Instructions ?? -You were admitted to the hospital due to??infection in your blood which cleared with antibiotics -As per the infectious disease doctors you will be completing??14 days of antibiotics at home??bothIV??vancomycin and??antibiotic lock therapy as explained to you -Home antibiotic set up has been completed for you -Please follow closely with your primary care doctor ?? Post Discharge Care Diet: Diabetic Diet Activity: As tolerated Prognosis: Fair Discharge ?05/15/22 8:20:00 EDT Discharge Prescriptions ?ePrescribed, ??05/15/22 8:20:00 EDT Home Health Face to Face *Denotes mandatory hernandez ?? *I certify that this patient is under my care and that I or an allowed non- physician working with me had a face to face encounter with the patient on this date:??05/15/2022 08:26 ?? *The encounter with the patient was in whole, or in part, for the following medical condition, which is the primary diagnosis(es) for home health care:??Diabetes (E11.9) Hyperglycemia (R73.9) Obesity (E66.9) On total parenteral nutrition (TPN) (Z78.9) Sepsis (A41.9) Staphylococcus epidermidis bacteremia (R78.81) ? *Select the indications for the discipline/s that are being arranged for this patient. Nursing (select all that apply): [_] None [X] Medication management (reconciliation, teaching)?? [X] Chronic disease management?? [_] Wound care and treatment?? [_] Home safety evaluation [_] Administer SQ/IM/IV medications?? [X] Cath care?? [_] Drain care?? [_] Trach [...] assistance/supervision [_] Inability to ambulate without assistance [_] Pain [X] Decreased strength and endurance [_] Unsteady gait [_] Severe SOB and fatigue [_] Impaired transfers [_] Inability to negotiate stairs [_] Limited weight bearing [_] Mental status change? *Physician Signature: _Stewart Hicks MD ?? *By signing this, I certify that I have personally evaluated the patient and agree with the findings and recommendations as documented above. ? F Results Discharge Labs BLOOD COUNT & DIFF WBC 4.9 k/mm3 ()?? 05/14/2022 02:31 RBC 3.20 m/mm3 (Low)?? 05/14/2022 02:31 Hgb 8.4 Gm/dL (Low)?? 05/14/2022 02:31 Hct 26.8 % (Low)?? 05/14/2022 02:31 MCV 83.8 femtoliters ()?? 05/14/2022 02:31 MCH 26.3 pg (Low)?? 05/14/2022 02:31 MCHC 31.3 g/dL (Low)?? 05/14/2022 02:31 Platelet Count 253 k/mm3 ()?? 05/14/2022 02:31 RDW-SD 40.5 femtoliters ()?? 05/14/2022 02:31 MPV 9.8 femtoliters ()?? 05/14/2022 02:31 Nucleated RBC (Automated) 0.0 #/100 WBC'S ()?? 05/14/2022 02:31 Abs. NRBC 0.0 k/mm3 ()?? 05/14/2022 02:31 Abs. Neut 1.3 k/mm3 ()?? 05/10/2022 04:58 Abs. Lymph 1.8 k/mm3 ()?? 05/10/2022 04:58 Abs. [place] 0.5 k/mm3 ()?? 05/10/2022 04:58 Abs. Eo 0.2 k/mm3 ()?? 05/10/2022 04:58 Abs. Baso 0.0 k/mm3 ()?? 05/10/2022 04:58 Neut % 33.7 % (Low)?? 05/10/2022 04:58 Lymph % 46.9 % (High)?? 05/10/2022 04:58 [place] % 12.5 % (High)?? 05/10/2022 04:58 Eos % 6.1 % (High)?? 05/10/2022 04:58 Baso % 0.5 % ()?? 05/10/2022 04:58 Imm Gran 0.3 % ()?? 05/10/2022 04:58 Abs. Imm Gran 0.0 k/mm3 ()?? 05/10/2022 04:58 ?? CHEM GENERAL Sodium 134 mmol/L ()?? 05/14/2022 02:31 Potassium 4.4 mmol/L ()?? 05/14/2022 07:09 Chloride 100 mmol/L ()?? 05/14/2022 02:31 Bicarbonate Level 26 mmol/L ()?? 05/14/2022 02:31 Anion Gap 8 ()?? 05/14/2022 02:31 Glucose Level 438 mg/dL (High)?? 05/14/2022 02:31 Glucose, POC 206 mg/dL (High)?? 05/15/2022 07:51 BUN 16 mg/dL ()?? 05/14/2022 02:31 Creatinine-Blood 0.5 mg/dL ()?? 05/14/2022 02:31 Estimated GFR Creatinine 115 ML/MIN/1.73 M2 ()?? 05/14/2022 02:31 Calcium 8.0 mg/dL (Low)?? 05/09/2022 06:35 Calcium, Ionized pH Corrected 1.22 mmol/L ()?? 05/12/2022 04:50 Phosphorus 4.3 mg/dL ()?? 05/14/2022 07:09 Magnesium 1.7 mg/dL ()?? 05/14/2022 07:09 Protein, Total 6.9 Gm/dL ()?? 05/08/2022 09:07 Albumin 4.0 Gm/dL ()?? 05/08/2022 09:07 AG Ratio 1.4 ()?? 05/08/2022 09:07 Alkaline Phosphatase 117 units/L (High)?? 05/08/2022 09:07 AST (SGOT) 17 units/L ()?? 05/08/2022 09:07 ALT (SGPT) 13 units/L ()?? 05/08/2022 09:07 Bilirubin, Total 0.9 mg/dL ()?? 05/08/2022 09:07 Lactate 1.5 mmol/L ()?? 05/08/2022 09:07 ?? ENDOCRINE/TUMOR MARKER Blood 2 mIU/mL ()?? 05/08/2022 09:07 ? HEME OTHER Hold Lavender Top SPECIMEN DISCARDED AFTER 24 HOURS. ()?? 05/10/2022 08:54 ? LIPID STUDIES Triglycerides 373 mg/dL (High)?? 05/14/2022 02:31 ? MISC. CHEMISTRY Hold Gel Top SPECIMEN DISCARDED AFTER 1 WEEK ()?? 05/10/2022 08:54 ? TOXICOLOGY/TDM Vancomycin Level, Trough 6.7 mg/L (Low)?? 05/14/2022 17:00 ? UA/URINALYSIS Appear/Color, Urine LIGHT YELLOW ()?? 05/08/2022 14:30 Specific [place], Urine 1.025 ()?? 05/08/2022 14:30 pH, Urine 5.5 ()?? 05/08/2022 14:30 Albumin, Urine TRACE (Abnormal)?? 05/08/2022 14:30 Glucose, Urine 3+ (Abnormal)?? 05/08/2022 14:30 Ketones, Urine NEGATIVE ()?? 05/08/2022 14:30 Bilirubin, Urine NEGATIVE ()?? 05/08/2022 14:30 Hemoglobin, Urine NEGATIVE ()?? 05/08/2022 14:30 Nitrite, Urine NEGATIVE ()?? 05/08/2022 14:30 Leukocyte, Urine NEGATIVE ()?? 05/08/2022 14:30 Urobilinogen NORMAL mg/dL ()?? 05/08/2022 14:30 WBC's, Urine 1 /HPF ()?? 05/08/2022 14:30 RBC's, Urine 1 /HPF ()?? 05/08/2022 14:30 Bacteria SLIGHT HPF (Abnormal)?? 05/08/2022 11:40 Squamous Epith 1 /HPF ()?? 05/08/2022 14:30 Mucus SLIGHT /LPF ()?? 05/08/2022 14:30 Hold Urine Culture Testing available 48 hours from time of collection. ()?? 05/08/2022 14:30 ? VIROLOGY Influenza A PCR NEGATIVE ()?? 05/08/2022 10:06 Influenza B PCR NEGATIVE ()?? 05/08/2022 10:06 RSV PCR NEGATIVE ()?? 05/08/2022 10:06 COVID-19 PCR Specimen Source NASAL ()?? 05/13/2022 05:00 COVID-19 PCR Result NEGATIVE ()?? 05/13/2022 05:00 COVID-19 POC Result NEGATIVE ()?? 05/08/2022 08:21 ? Microbiology ?? Blood Culture?? Completed?? Source: Blood Body Site: ?? Collected Dt/Tm: 05/08/2022 07:57 Last Updated Dt/Tm: 05/08/2022 07:59 ?SPECIMEN DESCRIPTION : BLOODSPECIAL REQUESTS : NONECULTURE : STAPHYLOCOCCUS EPIDERMIDIS ??This isolate was identified using Maldi-TOF ? system These AST results were performed on the Microscan ID and AST ? systemREPORT STATUS : FINAL 05/11/2022ORGANISM ? STAPHYLOCOCCUS EPIDERMIDIS ??This isolate was ? identified using Maldi-TOF system These AST results were performed on the Microscan ID and AST systemMETHOD ?MIN. INHIB. CONC. (MCG/ML)CIPROFLOXACIN ?RESISTANTCLINDAMYCIN ?RESISTANTERYTHROMYCIN ? RESISTANTLEVOFLOXACIN ? RESISTANTRIFAMPIN ? SUSCEPTIBL ETRIMETH/SULFAMETHOX ??SUSCEPTIBLEVANCOMYCIN ? SUSCEPTIBLE Blood Culture #2?? Completed?? Source: Blood Body Site: ?? Collected Dt/Tm: 05/08/2022 07:57 Last Updated Dt/Tm: 05/08/2022 07:59 ?SPECIMEN DESCRIPTION : BLOOD ??NO SITESPECIAL REQUESTS : CRITICAL VALUE CALLED AND VERIFIED BY READBACK FOR: GRAM POSITIVE COCCI ? CALLED TO [id number] W4 ON 05/08/222003 BY TECH [id number] : STAPHYLOCOCCUS EPIDERMIDIS ??Single isolates of coagulase negative ? Staphylococcus, Micrococcus sp., Bacillus sp., Corynebacterium sp. (or ? Diptheroids), Cutibacterium (formerly Propionibacterium) acnes and ? Viridans group streptococci could be skin contaminates. Multiple ? isolates of these organisms are more likely to be significant. SUSCEPTIBILITYTESTING NOT ROUTINELY PERFORMED ON THIS ISOLATE. ?Staphylococcus epidermidis was identified by multi-plex PCRREPORT STATUS : FINAL 05/09/2022 COVID-19, RSV, and Flu A/B, Rapid PCR?? Completed?? Source: Nasal Body Site: Nose Collected Dt/Tm: 05/08/2022 09:13 Last Updated Dt/Tm: 05/08/2022 11:17 COVID-19 (2019 Novel Coronavirus) PCR?? Completed?? Source: Nasal Body Site: Nose Collected Dt/Tm: 05/10/2022 05:18 Last Updated Dt/Tm: 05/10/2022 18:49 Blood Culture #2?? Completed?? Source: Blood Body Site: ?? Collected Dt/Tm: 05/10/2022 07:41 Last Updated Dt/Tm: 05/10/2022 07:42 ?SPECIMEN DESCRIPTION : BLOOD NO SITESPECIAL REQUESTS : CRITICAL VALUE CALLED AND VERIFIED BY READBACK FOR: GRAM POSITIVE COCCI ? TO W4, [id number] AT 1629 ON 05/11 BY [employer] [id number] : STAPHYLOCOCCUS EPIDERMIDIS ??This isolate was identified using Maldi-TOF ? system These AST results were performed on the [employer] ID and AST ? system ?Staphylococcus epidermidis was identified by multi-plex PCRREPORT STATUS : FINAL 05/13/2022ORGANISM ? STAPHYLOCOCCUS EPIDERMIDIS ??This isolate was ? identified using Maldi-TOF system These AST results were performed on the [employer] ID and AST systemMETHOD ? MIN. INHIB. CONC. (MCG/ML)CIPROFLOXACIN ?RESISTANTCLINDAMYCIN ?RESISTANTERYTHROMYCIN ? RESISTANTLEVOFLOXACIN ? RESISTANTRIFAMPIN ? SUSCEPT IBLETRIMETH/SULFAMETHOX ??SUSCEPTIBLEVANCOMYCIN ? SUSCEPTIBLE COVID-19 (2019 Novel Coronavirus) PCR?? Completed?? Source: Nasal Body Site: Nose Collected Dt/Tm: 05/13/2022 05:24 Last Updated Dt/Tm: 05/13/2022 14:35 ? Imaging(s) ?Echocardiogram - Complete ?? 05/12/2022 15:15??by Alberto Borjas MD ?1) Technically difficult study ??2) The left ventricle is mildly dilated. The LV systolic function appears ??grossly normal on limited views. ??3) The right ventricle is poorly visualized, but appears grossly normal on ??limited views. ??4) No obvious valvular abnormalities ? 38_ minutes spent on discharge * Lexi Dukes RN: PERFORM Event Display: Patient Education/Instruction Authored Date: [id number] Inpatient Adult Discharge Instructions [address] [address] Name: VILMA SERRANO : 1975 Visit: 05/08/2022 10:27:00 Current Date: 05/15/2022 08:31 Account: [id number] Inpatient Adult Discharge Instructions We would like [...] and their families. Surveys are administered by [employer] ?? If further treatment with your primary care physician or another doctor is recommended, it is important for you to keep the appointment. Call your primary care physician or return to the Emergency Department immediately if your condition worsens, fails to improve, or new symptoms develop. If you need to find a doctor, you can call [facility] [employer] [facility] [employer] for a referral at [phone] or toll free at [phone] ([phone]) or log in to [email or web address].. ?? You can view and manage your care through the patient portal or by using a health care aniyah of your choosing. [employer] is a website that allows you to securely view your medical information including your hospital discharge summary, office visit summaries, medications and follow-up visits. You can also request appointments, renew medications, and request access to your medical information using a health care aniyah of your choosing, or just ask a question. You can enroll at [email or web address] or register during your next office visit. You have been discharged from [facility], Patient Care Unit: W4. If you have any questions regarding these instructions after you leave, please call us and we will be happy to assist you. [facility] Your Care Team Attending Physician Kurt SHERIFF, Stewart Hughes Consulting Providers Antwan Melo MD Discharging Providers Stewart Hicks MD Reason for Admission General medical Your Diagnosis Sepsis Diabetes Hyperglycemia On total parenteral nutrition (TPN) Obesity Staphylococcus epidermidis bacteremia Tests Performed Below is a partial list of the tests performed during your hospitalization. You may have had other tests and procedures not included in this list. Please discuss all test results with your provider. Basic Metabolic Panel BUN CBC CBC w/ Differential COMPLETE URINALYSIS Comprehensive Metabolic Panel COVID-19 (2019 Novel Coronavirus) PCR COVID-19 RNA POC COVID-19, RSV, and Flu A/B, Rapid PCR Creatinine Electrolytes Glucose Level GLUCOSE POC HOLD GEL TUBE HOLD LAVENDER TUBE Ionized Calcium Lactate Level Magnesium Level PHOSPHORUS Potassium Level Serum Quantitative Triglycerides Urinalysis w/hold for Urine Culture Vancomycin Trough XR Chest 2 Views Frontal and Lat Primary Care Provider Chaparrita Pizaon DO Advance Directive Health Care Proxy on File Yes - Health Care Proxy Discharge Vitals Temperature: 98.3 DegF Height: 155 cm Pulse Rate: 79 bpm Weight: 124.75 kg Respiratory Rate: 18 br/min Body Mass Index:??51.93 kg/m2??Critical Systolic Blood Pressure: 126 mm Hg Body surface area: 2.32 Diastolic Blood Pressure:??87 mm Hg??High ?? Oxygen Saturation: 97 % ?? Studies Pending All tests and labs ordered during this hospital stay have been completed unless listed below. Please discuss all pending results with your provider listed above in these instructions. ?? Blood Culture Blood Culture #2 What to do next Instructions From Your Doctor ?? -You were admitted to the hospital due to??infection in your blood which cleared with antibiotics -As per the infectious disease doctors you will be completing??14 days of antibiotics at home??bothIV??vancomycin and??antibiotic lock therapy as explained to you -Home antibiotic set up has been completed for you -Please follow closely with your primary care doctor ?? Discharge Orders Diet:??Diabetic Diet Activity:??As tolerated Prognosis:??Fair You Need to Schedule the Following Appointments Follow Up with??Chaparrita Pizano DO When??Within 3-5 day: call to discuss follow up visit Where: ?? Discharge Medications VILMA SERRANO :1975 Visit Date:05/08/2022 Medications: Please continue your medications until treatment is completed or stopped by your provider. Medications not listed below should be discontinued. Discuss any questions related to medications with your provider. What How Much When Instructions Next Dose Unchanged Albuterol (albuterol 0.042% inhalation solution) 3 Milliliter Nebulized inhalation 4 times a day as needed for Wheezing/Shortness of Breath as needed Unchanged Albuterol (albuterol CFC free 90 mcg/ inh inhalation aerosol) 2 puff(s) Inhalation 4 times a day as needed for for wheezing as needed Unchanged Albuterol (Ventolin HFA 108 mcg/ inh inhalation aerosol with adapter) 2 puff(s) Inhalation 4 times a day as needed for for wheezing as needed Unchanged Bisacodyl (bisacodyl 5 mg oral delayed release tablet) 1 tab(s) Oral Daily Sun 9am Unchanged Calcium Carbonate (Tums 500 mg oral tablet, chewable) 1 tab(s) Chew Every 4 hours as needed for Dyspepsia as needed Unchanged Cholecalciferol (Vitamin D3 2000 intl units oral capsule) 1 capsule Oral 3 times a day Today 3pm Unchanged DiphenhydrAMINE (Banophen 50 mg oral capsule) 1 capsule Intravenous Push 4 times a day as needed for as needed for itching as needed Unchanged Docusate-Senna (Senna Plus 50 mg-8.6 mg oral tablet) 2 tab(s) Oral Daily at Bedtime Tonight 9pm Unchanged Guaifenesin/ Dextromethorphan (dextromethorphan-guaifenesin 10 mg-100 mg/ 5 mL oral liquid) 10 Milliliter Oral Twice a day as needed for Cough Take as needed for cough up to 2 times a day. ?? as needed Unchanged Hydromorphone (HYDROmorphone 1 mg/ mL oral liquid) 4 Milliliter Oral Every 6 hours as needed for as needed for pain as needed Unchanged Hydromorphone (HYDROmorphone 1 mg/ mL oral liquid) TAKE 4 ML BY MOUTH EVERY 6 HOURS NEEDED ?? as needed Unchanged Insulin Aspart (NovoLOG FlexPen 100 units/ mL subcutaneous solution) See instructions Use as per sliding scale ?? as ordered Unchanged Insulin Glargine 35 unit(s) Subcutaneous Injection Twice a day tonight 9pm Unchanged Lidocaine Topical (lidocaine 5% topical film) See instructions Topically Daily as needed for pain remove patches after 12 hours ?? as needed Unchanged Lorazepam (LORazepam 0.5 mg oral tablet) 1 tab(s) Oral Daily at Bedtime Tonight 9pm Unchanged Miscellaneous Rx (ENSURE CLEAR LIQD) Unchanged Miscellaneous Rx (ENSURE CLEAR LIQD) 1 bottle 3 times a day with meals Unchanged Ondansetron (ondansetron 4 mg oral tablet, disintegrating) 4 Milligram Intravenous Push Every 6 hours as needed for Nausea & Vomiting as needed Unchanged Pantoprazole (pantoprazole 40 mg oral delayed release tablet) 1 tab(s) Oral Daily Duration: 30 Days Sun 9am Unchanged Potassium Chloride (potassium chloride 8 mEq (600 mg) oral capsule, extended release) 1 capsule Oral Daily Sun 9am Unchanged Propranolol (propranolol 120 mg oral capsule, extended release) 1 capsule Oral Daily at Bedtime Duration: 30 Days Tonight 9pm Unchanged Simvastatin (simvastatin 40 mg oral tablet) 1 tab(s) Oral Daily at Bedtime Tonight 9pm Unchanged Sucralfate (Carafate 1 gm oral tablet) 1 tab(s) Oral 3 times a day before meals and bedtime Duration: 30 Days Today 12pm Unchanged Sucralfate (sucralfate 1 gm oral tablet) TAKE 1 TABLET BY MOUTH THREE TIMES A DAY BEFORE MEALS AND AT BEDTIME ?? Unchanged Sumatriptan (SUMAtriptan 50 mg oral tablet) 1 tab(s) Oral Daily as needed for for migraine headache may repeat dose after 2 hours up to a maximum of 2 ?? as needed ?? What How Much When Comments Stop Taking ceFAZolin (ceFAZolin 2 g injection) 2 gram Intravenous Push Every 8 hours Test Results Below is a partial list of the most recent Laboratory test results done prior to this discharge. You may have had other tests and procedures not included in this list. Please discuss all test resultswith your provider. Basic Metabolic Panel (05/09/2022) ???Sodium - 132 mmol/L???Potassium - 4.0 mmol/L???Chloride - 99 mmol/L???Bicarbonate Level - 25 mmol/L???Anion Gap - 8???Glucose Level - 662 mg/dL???BUN - 7 mg/dL???Creatinine-Blood - 0.5 mg/dL???Estimated GFR Creatinine - 117 ML/MIN/1.73 M2???Calcium - 8.0 mg/dL BUN (05/14/2022) ???BUN - 16 mg/dL CBC (05/14/2022) ???WBC - 4.9 k/mm3???RBC - 3.20 m/mm3???Hgb - 8.4 Gm/dL???Hct - 26.8 %???MCV - 83.8 femtoliters???MCH - 26.3 pg???MCHC - 31.3 g/dL???Platelet Count - 253 k/mm3???RDW-SD - 40.5 femtoliters???MPV - 9.8femtoliters???Nucleated RBC (Automated) - 0.0 #/100 WBC'S???Abs. NRBC - 0.0 k/mm3 CBC w/ Differential (05/10/2022) ???WBC - 3.8 k/mm3???RBC - 3.78 m/mm3???Hgb - 9.7 Gm/dL???Hct - 30.7 %???MCV - 81.2 femtoliters???MCH - 25.7 pg???MCHC - 31.6 g/dL???Platelet Count - 237 k/mm3???RDW-SD - 38.9 femtoliters???MPV - 9.7femtoliters???Nucleated RBC (Automated) - 0.0 #/100 WBC'S???Abs. NRBC - 0.0 k/mm3???Abs. Neut - 1.3 k/mm3???Abs. Lymph - 1.8 k/mm3???Abs. [place] - 0.5 k/mm3???Abs. Eo - 0.2 k/mm3???Abs. Baso - 0.0 k/mm3???Neut % - 33.7 %???Lymph % - 46.9 %???[place] % - 12.5 %???Eos % - 6.1 %???Baso % - 0.5 %???Imm Gran- 0.3 %???Abs. Imm Gran - 0.0 k/mm3 COMPLETE URINALYSIS (05/08/2022) ???Appear/Color, Urine - LIGHT YELLOW???Specific [place], Urine - 1.025???pH, Urine - 5.5???Albumin, Urine - TRACE???Glucose, Urine - 3+???Ketones, Urine - NEGATIVE???Bilirubin, Urine - NEGATIVE???Hemoglobin, Urine - NEGATIVE???Nitrite, Urine - NEGATIVE???Leukocyte, Urine - NEGATIVE???Urobilinogen - NORMAL? ?WBC's, Urine - <1 /HPF? ?RBC's, Urine - 1 /HPF? ?Bacteria - SLIGHT? ?Squamous Epith - 1 /HPF Comprehensive Metabolic Panel (05/08/2022) ???Sodium - 130 mmol/L???Potassium - 4.4 mmol/L???Chloride - 94 mmol/L???Bicarbonate Level - 26 mmol/L???Anion Gap - 10???Glucose Level - 260 mg/dL???BUN - 11 mg/dL???Creatinine-Blood - 0.5 mg/dL???Estimated GFR Creatinine - 115 ML/MIN/1.73 M2???Calcium - 8.9 mg/dL???Protein, Total - 6.9 Gm/dL???Alb umin - 4.0 Gm/dL???AG Ratio - 1.4???Alkaline Phosphatase - 117 units/L???AST (SGOT) - 17 units/L???ALT (SGPT) - 13 units/L???Bilirubin, Total - 0.9 mg/dL COVID-19 (2019 Novel Coronavirus) PCR (05/13/2022) ???COVID-19 PCR Specimen Source - NASAL???COVID-19 PCR Result - NEGATIVE COVID-19 RNA POC (05/08/2022) ???COVID-19 POC Result - NEGATIVE COVID-19, RSV, and Flu A/B, Rapid PCR (05/08/2022) ???Influenza A PCR - NEGATIVE???Influenza B PCR - NEGATIVE???RSV PCR - NEGATIVE???COVID-19 PCR Specimen Source - NASAL???COVID-19 PCR Result - NEGATIVE Creatinine (05/14/2022) ???Creatinine-Blood - 0.5 mg/dL???Estimated GFR Creatinine - 115 ML/MIN/1.73 M2 Electrolytes (05/14/2022) ???Sodium - 134 mmol/L???Potassium - 6.9 mmol/L???Chloride - 100 mmol/L???Bicarbonate Level - 26 mmol/L???Anion Gap - 8 Glucose Level (05/14/2022) ???Glucose Level - 438 mg/dL GLUCOSE POC (05/15/2022) ???Glucose, POC - 206 mg/dL HOLD GEL TUBE (05/10/2022) ???Hold Gel Top - SPECIMEN DISCARDED AFTER 1 WEEK HOLD LAVENDER TUBE (05/10/2022) ???Hold Lavender Top - SPECIMEN DISCARDED AFTER 24 HOURS. Ionized Calcium (05/12/2022) ???Calcium, Ionized pH Corrected - 1.22 mmol/L Lactate Level (05/08/2022) ???Lactate - 1.5 mmol/L Magnesium Level (05/14/2022) ???Magnesium - 1.7 mg/dL PHOSPHORUS (05/14/2022) ???Phosphorus - 4.3 mg/dL Potassium Level (05/14/2022) ???Potassium - 4.4 mmol/L Serum Quantitative (05/08/2022) ???Blood - 2 mIU/mL Triglycerides (05/14/2022) ???Triglycerides - 373 mg/dL Urinalysis w/hold for Urine Culture (05/08/2022) ???Appear/Color, Urine - LIGHT YELLOW???Specific [place], Urine - 1.025???pH, Urine - 5.5???Albumin, Urine - TRACE???Glucose, Urine - 3+???Ketones, Urine - NEGATIVE???Bilirubin, Urine - NEGATIVE???Hemoglobin, Urine - NEGATIVE???Nitrite, Urine - NEGATIVE???Leukocyte, Urine - NEGATIVE???Urobilinogen - NORMAL???WBC's, Urine - 1 /HPF???RBC's, Urine - 1 /HPF???Squamous Epith - 1 /HPF???Mucus - SLIGHT???Hold Urine Culture - Testing available 48 hours from time of collection. Vancomycin Trough (05/14/2022) ???Vancomycin Level, Trough - 6.7 mg/L Allergies (NKA means No Known Allergies) Seafood??(Anaphylactic [...] SHELLY III or?? Trigger point of abdomen?? [facility] [facility] Senior Level Patient?? Education Materials Below is the list of Educational Leaflet Providered with your Discharge Instructions. Valuables and Belongings I fully understand and agree that [facility] accepts no responsibility for all my [...] Review of Valuable and Belonging List: With witness Date for Pt to Sign Valuables/Belongings: 05/10/22 06:37:00 ?? Other Discharge Information Nutrition Discharge Status?? Nutrition Discharge Status?? Parenteral Nutrition: 165 mL ? Case Management Discharge Plan?? Discharge Plan?? Discharge Agency Information?? Discharge Level of Care at Discharge: Home/Nursing Home/Foster Care Service Categories #1: Home IV antibiotics Discharge Medical Equipment Companies: [facility] Service Comments #1: [facility] will provide you wiith your needed antibiotics. ?? Pulmonary Rehab Status?? Pulmonary Rehab Discharge Status?? CPAP/BiPAP Mask Type: Full CPAP/BiPAP Mask Size: Medium Respiratory Rate: 18 br/min Discharge Medical Equipment Companies: [facility] ? Common Emergency Awareness Tips IS IT [...] are strongly encouraged to quit. Please call [employer] at 615-524-1867 or 5-732-075-[employer] (8587) or log in to [email or web address] for referrals to smoking cessation programs. ?? The National Suicide Prevention Hotline is available 06/09 if you or someone you know needs to find a reason to keep living. By calling 0-130-901[employer] (8516) you'll be connected to a skilled, trained counselor at a crisis center in your area. INPATIENT DISCHARGE INSTRUCTIONS SIGNATURE PAGE VILMA SERRANO Location:[facility] Registration Date and Time:05/08/2022 10:27 EDT Primary Care Physician: Chaparrita Pizano DO, I LETTYMARIANNA VILMA, have received the above patient education materials/instructions and have verbalized understanding. If ambulance or transport services are being used I further acknowledge being given a choice of service. ?? If you need to contact me, please call me at this number: . 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 Name: 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 Signature: Relationship to Patient: Witness Name/Signature: Date: * Yarely Richards RN: PERFORM, SIGN, VERIFY Event Display: Case Management Discharge Plan Authored Date: Patient: VILMA SERRANO Age: 46 years Sex: Female : 1975 Associated Diagnoses: None Author: Yarely Richards RN Discharge Plan Case Management Discharge Plan : Case Management Discharge Plan Data 05/14/2022 11:06 EDT Discharge Level of Care at Discharge Home/Nursing Home/Foster Care Discharge Medical Equipment Companies [facility] Service Categories #1 Home IV antibiotics Service Comments #1 [facility] will provide you wiith your needed antibiotics. * Event Display: Cardiac Rhythm Strips Authored Date: * LISETHSPmilagrosscmarina , CIS S: TRANSCRIPili Mayorga MD: VERIFY Event Display: Result: Authored Date: Chest 2 Views Frontal and Lat Hx of Present Illness: Pt reports she has a Dual Polanco catheter and was suppose to have TPA injected into cathter due to one side not working, until they checked her Temperature w fever of 101, pt was then transported to ED by staff. Pt c o head pain , brain fog pt w; Reason: Other:; Shortnessof Breath, Fever; Clinical Question(s): Pneumonia COMPARISON: 02/27/2022. FINDINGS: LINES AND TUBES: There is a left-sided central venous catheter with the tip projecting over the region of the SVC. LUNGS AND PLEURA: The lung volumes are low. No focal consolidation or pleural effusion. Normal pulmonary vascularity. No pleural effusion. No pneumothorax. HEART, MEDIASTINUM AND LISA: Unchanged cardiomediastinal silhouette. BONES AND SOFT TISSUES: No acute abnormality. IMPRESSION: Low lung volumes. No focal consolidation or pleural effusion. WSN: [id number] Ordering Physician: Radha Crowder Dictated By: Pili Galeas MD Dictated Date/Time: 05/08/22 9:43 am Reviewed By: Pili Galeas MD Signed By: Pili Galeas MD Signed Date/Time: 05/08/22 9:43 am Transcribed By: DEIDRE Transcribed Date/Time: 05/08/22 9:39 am Hospital Progress note * Elvira WILSON, Wilbur: PERFORM, MODIFY, MODIFY, SIGN, VERIFY Event Display: Progress Note Hospital Authored Date: [id number] Patient: VILMA SERRANO Age: 46 years Sex: Female : 1975 Associated Diagnoses: None Author: Elvira WILSON, Wilbur Findings Nursing Data Vital Signs : VITAL SIGNS SECTION 05/15/2022 3:00 EDT Temperature 98.1 DegF Temperature Route Oral Pulse Rate 75 bpm Respiratory Rate 18 br/min Systolic Blood Pressure 121 mm Hg Diastolic Blood Pressure 58 mm Hg Blood pressure sites Arm, right Pulse Pressure 63 mm Hg Oxygen Saturation 98 % Mode of Delivery (Oxygen) Room air 05/15/2022 1:26 EDT FiO2 21 % 05/15/2022 0:32 EDT Early Warning Score 4.00 05/15/2022 0:29 EDT Respiratory Rate 20 br/min 05/14/2022 23:32 EDT Early Warning Score 4.00 05/14/2022 23:00 EDT Temperature 98.4 DegF Temperature Route Oral Pulse Rate 79 bpm Respiratory Rate 18 br/min Systolic Blood Pressure 109 mm Hg Diastolic Blood Pressure 56 mm Hg Blood pressure sites Arm, right Pulse Pressure 53 mm Hg Oxygen Saturation 99 % Mode of Delivery (Oxygen) Room air 05/14/2022 20:46 EDT Early Warning Score 6.00 05/14/2022 20:46 EDT Early Warning Score 6.00 05/14/2022 20:39 EDT Respiratory Rate 18 br/min 05/14/2022 20:38 EDT Pulse Rate 71 bpm Systolic Blood Pressure 142 mm Hg H Diastolic Blood Pressure 58 mm Hg 05/14/2022 20:24 EDT Early Warning Score 6.00 05/14/2022 19:58 EDT Early Warning Score 6.00 05/14/2022 19:00 EDT Temperature 97.9 DegF Temperature Route Oral Pulse Rate 71 bpm Respiratory Rate 18 br/min Systolic Blood Pressure 142 mm Hg H Diastolic Blood Pressure 58 mm Hg Blood pressure sites Arm, right Pulse Pressure 84 mm Hg Oxygen Saturation 97 % Mode of Delivery (Oxygen) Room air . Evaluation Pt is A/O x4, VSS, afebrile. She c/o generalized pain throughout. PRN dilaudid administered for pain control. Lipids/TPN infusing as ordered. HS Vancomycin lock was administered per patient request after 2gm magnesium infusion was done infusing. ROBER Sanders is aware of this. After dwelling timefor this vancomycin lock, the catheter lumen clogged so alteplase has been administered. Plan to continue to attempt to withdraw the vancomycin lock when polanco lumen is patent. Safety/comfort maintained. No further concerns at the moment. Please see CIS for further assessments. . * Kurt SHERIFF, Stewart Hughes: PERFORM Event Display: Progress Note Hospital Authored Date: [id number] Patient: ??LOVING, VILMA ? Age:??46 Years?Sex:??Female?:??1975?? Subjective ? - Blood cultures from 05/12 thus far negative, if cultures remain negative tomorrow then patient will need to complete 14 days of antibiotic therapy IV vancomycin and IV lock therapy at home as per infectious disease -Arranging home services and antibiotic regimen, plan to discharge tomorrow??after AM??IV vancomycin dose??and receiving vancomycin lock.?? Patient will be able to flush lock at home -Complaining of some??vaginal itchiness consistent with prior yeast infection,??150 mg fluconazole one-time dose given ?? Review of Systems Other than those positives as noted above, the remaining comprehensive 14-point review of systems is negative. Objective Vital Signs?? Temperature: 98.3 DegF (05/14/22 11:00:00) Temperature Route: Oral (05/14/22 11:00:00) Pulse Rate: 71 bpm (05/14/22 11:00:00) Respiratory Rate: 18 br/min (05/14/22 12:36:00) Systolic Blood Pressure: 112 mm Hg (05/14/22 11:00:00) Diastolic Blood Pressure: 56 mm Hg (05/14/22 11:00:00) Blood pressure sites: Arm, right (05/14/22 11:00:00) Mean Arterial Pressure: 82 mm Hg (05/14/22 03:07:00) Pulse Pressure: 56 mm Hg (05/14/22 11:00:00) Oxygen Saturation: 97 % (05/14/22 11:00:00) Liters per Minute: 1 L/min (05/13/22 19:55:00) Mode of Delivery (Oxygen): Room air (05/14/22 11:00:00) FiO2: 21 % (05/14/22 03:04:00) Early Warning Score: 4 (05/14/22 12:37:02) ? Intake/Output? 05/08 10:27 05/14 07:00 05/13 07:00 05/12 07:00 05/11 07:00 ?? 05/14 13:48 05/14 13:48 05/14 06:59 05/13 06:59 05/12 06:59 Intake ? 7194.2 ?562.5 ? 1418.5 ?944 ?823 Output ?0 ?0 ?0 ?0 ?0 Net Total ? 7194.2 ?562.5 ? 1418.5 ?944 ?823 ? Urine Count ? 33 ?2 ?6 ?5 ?5 ? Physical Exam General: Alert, obese, in no acute distress. Neck: Supple, Full range of motion. Trachea midline. No JVD or bruits. Respiratory: Clear to auscultation and percussion. No wheezing or rhonchi. No use of acessory muscles. No tactile fremitus.?Polanco in place, site good?? Cardiovascular: S1-S2 regular, no MRG Gastrointestinal: Abdomen soft, non-tender, non-distended. Normal bowel sounds. No pulsatile mass. No hepatosplenomegaly. Extremities: No lower extremity pitting pedal edema. No cyanosis or clubbing. Neurologic: AAOx3, Cranial nerves II-XII grossly intact. Speech normal. No focal neurological deficits. Deep tendon reflexes +2 bilaterally. Flexor plantar response. Moves all extremities spontaneously. Sensation intact bilaterally. Skin: No rashes or lesions. No petechiae or purpura.?? _ Home Medications Albuterol (albuterol CFC free 90 mcg/inh inhalation aerosol)?2?puff(s)?Inhalation?4 times a day?as needed?for wheezing Albuterol (albuterol 0.042% inhalation solution)?3?Milliliter?1.25?Milligram?Neb?4 times a day?as needed?Wheezing/Shortness of Breath Albuterol (Ventolin HFA 108 mcg/inh inhalation aerosol with adapter)?2?puff(s)?Inhalation?4 times a day?as needed?for wheezing Bisacodyl (bisacodyl [...] Mouth?Every 6 hours?as needed?as needed for pain Hydromorphone (HYDROmorphone 1 mg/mL oral liquid)?TAKE 4 ML BY MOUTH EVERY 6 HOURS NEEDED Insulin Aspart (NovoLOG FlexPen 100 units/mL subcutaneous [...] maximum of 2 ? Inpatient Medications Medications (26) Active SCHEDULED: (14) Heparin 5000 units/mL Inj (1 mL) (Heparin Inj) ??5,000 units 1 mL, Subcutaneous Injection, 3 times a day Heparin Lock Flush 50 units / 5 mL (Flush Heparin 10 units/mL Inj) ??50 units 5 mL, IV Push, Every Tuesday and Insulin Glargine 100 units/mL Inj (Insulin Glargine Inj) ??30 units 0.3 mL, Subcutaneous Injection,2 times a day Insulin Lispro 100 units/mL Inj (3mL) (Insulin LISPRO Sliding Scale) ??4-12 units, Subcutaneous Injection, 3 times a day before meals Lorazepam 0.5 mg Tablet (LORazepam 0.5 mg oral tablet) ??0.5 mg, By Mouth, Daily at bedtime Magnesium Sulfate 2 Gm /50 mL (Magnesium [...] release) ??120 mg, By Mouth,Daily at bedtime Vancomycin 1500 mg Inj (Vancomycin IVPB) ??1.5 Gm, IVPB, Every 12 hours Vancomycin 5mg/mL Lock (2.5mL) (Antibiotic Lock - Vancomycin) ??3 mL, IV Catheter Clearance, Every 24 hours Vancomycin 5mg/mL Lock (2.5mL) (Antibiotic Lock - Vancomycin) ??3 mL, IV Catheter Clearance, Every 24 hours Vancomycin 5mg/mL Lock (2.5mL) (Antibiotic Lock - Vancomycin) ??3 mL, IV Catheter Clearance, Every 24 hours Vancomycin 5mg/mL Lock (2.5mL) (Antibiotic Lock - Vancomycin) ??3 mL, IV Catheter Clearance, Every 24 hours CONTINUOUS: (2) Lipid 20% Emulsion Cont IV (250 mL) 30 Gm (Lipid Emulsion 20% 250mL 30 Gm) ??30 Gm 150 mL, IV Infusion, 15 mL/hr TPN Adult Central Custom 1,800 mL + Amino Acids 15% (Clinisol) TPN Adult 75 Gm + TPN Dextrose Solut(Adult Central Custom 1,800 mL + Amino Acids 15% (Clinisol - TPN) 75 Gm + Dextrose ??Cont IV 180 Gm+) ??1,800 mL, IV Central Line PRN: (10) Albuterol 90mcg/Inhalation Inhaler HFA (albuterol CFC free 90 mcg/inh inhalation aerosol) ??180 mcg2 puffs, Inhalation, 4 times a day Dextromethorphan-Guaifenesin 20 mg-200 mg/10 mL Liqu UD (Robitussin DM Liquid) ??10 mL, By Mouth, Every 4 hours diphenhydrAMINE 50 mg/mL Inj (Benadryl Inj) ??50 mg 1 mL, IV Push, Every 6 hours Heparin Lock Flush 50 units / 5 mL (Flush Heparin 10 units/mL Inj) ??50 units 5 mL, IV Push, Daily HYDROmorphone 1 mg/mL Inj Syringe (Dilaudid Inj) ??1 mg 1 mL, IV Push Slowly, Every 4 hours NaCl 0.9% Flush 3ml (NaCL 0.9% Flush) ??3 mL, IV Push, Every 8 hours Ondansetron 2mg/mL Inj (2mL Vial) (Zofran Inj) ??4 mg, IV Push, Every 6 hours Polyethylene Glycol 17 Gm Powder (MiraLax Powder) ??17 Gm 1 pack/packet, By Mouth, Daily Senna 8.6 mg / Docusate 50 mg tablet (Docusate/Senna Tablet) ??1 tablet, By Mouth, 2 times a day Simethicone 80 mg Chewable Tablet (Simethicone Tablet) ??80 mg, Chew, 3 times a day ? 72 Hour Antibiotic History Active Antibiotics Calendar Day Last Administered First Administered Vancomycin??1.5 Gm, 166.67 mL/hr, IVPB, Every 12 hours ?6 05/14/2022 02:12 05/09/2022 02:30 Vancomycin??3 mL, IV Catheter Clearance, Every 24 hours ?5 05/13/2022 21:09 05/10/2022 18:41 Vancomycin??3 mL, IV Catheter Clearance, Every 24 hours ?3 05/13/2022 14:50 05/12/2022 18:23 ? Stopped Antibiotics Stop Date/Time Last Administered First Administered Fluconazole??150 mg, By Mouth, Once 05/14/2022 12:37 05/14/2022 12:36 05/14/2022 12:36 ? Results Abnormal Labs ?? BLOOD COUNT & DIFF ??Abs. NRBC ??0.0 k/mm3 () ??05/14/2022 02:31 ??Hct ??26.8 % (Low) ??05/14/2022 02:31 ??Hgb ??8.4 Gm/dL (Low) ??05/14/2022 02:31 ??MCH ??26.3 pg (Low) ??05/14/2022 02:31 ??MCHC ??31.3 g/dL (Low) ??05/14/2022 02:31 ??Nucleated RBC (Automated) ??0.0 #/100 WBC'S () ??05/14/2022 02:31 ??RBC ??3.20 m/mm3 (Low) ??05/14/2022 02:31 ??RDW-SD ??40.5 femtoliters () ??05/14/2022 02:31 ? CHEM GENERAL ??Estimated GFR Creatinine ??115 ML/MIN/1.73 M2 () ??05/14/2022 02:31 ??Glucose Level ??438 mg/dL (High) ??05/14/2022 02:31 ??Glucose, POC ??229 mg/dL (High) ??05/14/2022 11:25 ? LIPID STUDIES ??Triglycerides ??373 mg/dL (High) ??05/14/2022 02:31 ? Note: Critical results are displayed in red. ? Assessment/Plan ?? 46-year-old female with past medical history of insulin dependent diabetes type 2, fibromyalgia, chronic abdominal pain, pelvic pain syndrome, malabsorption requiring TPN with Polanco, morbid obesity, obesity hypoventilation syndrome, asthma/COPD, AURELIO, noncompliant with CPAP, hypertension, hyperlipidemia, GERD, erosive gastritis, migraine headaches, bipolar disorder, chronic interstitial cystitis, neurogenic bladder, optic neuritis, endometriosis/adenomyosis s/p total abdominal hysterectomy andbilateral salpingo-oophorectomy; history of SBO obstruction status post exploratory laparotomy ith lysis of adhesions/mesh removal multiple times in the past, chronic hypomagnesemia due to GI malabsor ption issues???on scheduled and supplemental IV magnesium who presents with fevers, chills. She is admitted with fever, and found to have Staph Bacteremia. ? Fever Coagulase neg staph??bacteremia/sepsis: 03/18 on 05/08 Suspected CRBSI (Catheter related BSI) patient with above history and recent history of MSSA bacteremia??treated and completed??with Cefazolin??presents with fever/chills.?? Preliminary blood culture results shows gram positive cocci, staph epi.?? 03/18 on 05/08 Patient was initiated on Vancomycin and meropenem in the ED per discussion with ID. -Continued Vancomycin, Meropenem?? discontinued on 05/10, per ID ,fresh blood cultures ( one from line) drawn on 05/10 -Polanco dressing??to be changed??on??05/10 -ID recommended??antibiotic lock therapy??(per??protocol, have ordered for??vancomycin??antibiotic lock, for double-lumen??central catheter)???discussed with RN??to confirm with pharmacy??protocol as mentioned??of??dwell time of 4 hours??(discard lock solution??after that and flush??the lumens??with normal saline??prior to use of??catheter) Meropenem was discontinued as per ID recommendations,??continue vancomycin,??vancomycin??antibioticlock therapy??to be continued at least 14 days??for both Polanco lumens for the duration of antibiotic therapy??(to be decided) -1/2 blood cultures from 05/10 positive.?? We will repeat blood cultures today to document clearance, one from line one from peripheral ?? -Following repeat cultures from 05/12 -Echocardiogram with no obvious valvular abnormality -If most recent cultures remain clear, anticipate 14 days of therapy with antibiotic lock therapy at home, will continue to follow cultures -Central line may have to be removed if most recent cultures are positive ?? - Blood cultures from 05/12 thus far negative, if cultures remain negative tomorrow then patient will need to complete 14 days of antibiotic therapy IV vancomycin and IV lock therapy at home as per infectious disease -Arranging home services and antibiotic regimen, plan to discharge tomorrow??after AM??IV vancomycin dose??and receiving vancomycin lock.?? Patient will be able to flush lock at home -Complaining of some??vaginal itchiness consistent with prior yeast infection,??150 mg fluconazole one-time dose given ? GI Malabsorption chronic hypomagnesium: patient has been on TPN this time since September with plan to gradually taper -Patient tells me she gets IVPB magnesium 8 Gm on Tue and 4 Gm on Tuesday and Tuesday.?? She also receives 3 Gm magnesium via TPN. -Patient on TPN via Polanco at home. -nutrition consulted, will order TPN as currently no issues with Polanco after flushing -Check magnesium level., CMP daily -Insulin 60 units to be??given?? with TPN ( as per home dose) - * per patient she is asked to miss 1 day on Tuesday per her provider as plan is to gradually taper off in future * conveyed to cash processor ???replete magnesium,(home dose of??4 g on??Tuesday and??Tuesday and??8 g??Tuesday),??monitor??ionized calcium,??magnesium level,??phosphorus level while on??TPN Coordinate ??with nutrition??for TPN??prior to noon,??to initiate electrolytes to be adjusted per nutrition ?? Diabetes Mellitus type 2 : Patient states she receives Lantus 30 units BID. poc glucose with meals -ISS based on POC. ? COPD: Stable.?? continue prn albuterol. ?? Chronic abdominal pain, fibromyalgia: h/o partial SBO and adhesiolysis in 2013 h/o Ex laparotomy, adhesiolysis and b/l salpingo-oophorectomy in 2020 ( for complex ovarian mass) Patient takes liquid Dilaudid at home, which is not available on formulary. -??on prn??IV Dilaudid.K pad, ( has listed allergy of hives with Tylenol and Morphine) ?? GERD, erosive gastritis: -Continue Pantoprazole 40 mg daily. ?? AURELIO: -Will order CPAP. ?? Hypertension: -Continue home dose of propranolol. ?? Hyperlipidemia: -Unclear if patient is taking anything for this.?? Simvastatin has not been filled in quite a while. ?? Migraine Headaches: -prn sumatriptan. ?? Neurogenic bladder: -pt states she no longer straight catheterizes for this. -bladder scans ?? Diet: TPN ?? DVT prophylaxis: Pneumatic compression boots. Heparin SC. ?? Code Status:?? Full code.? Discharge Planning: DC tomorrow after AM Jerilyn * Aquiles MARES, Shannan Gong: SIGN, MODIFY, MODIFY, MODIFY, VERIFY, MODIFY, PERFORM, MODIFY Event Display: Progress Note Hospital Authored Date: Patient: VILMA SERRANO Age: 46 years Sex: Female : 1975 Associated Diagnoses: None Author: Aquiles MARES, Shannan Gong Reason for Follow-up: Staphylococcus epidermidis bacteremia Interval History: No acute overnight events. The patient remains afebrile, hemodynamically stable, and without leukocytosis. Antimicrobials: Vancomycin lock therapy (05/10-present) Vancomycin IV (05/08-present) Meropenem 1g IV every 8 hours (05/08-05/10) Cefazolin 2g IV every 8 hours (03/04-03/31) for MSSA bacteremia Review of Systems Review of Systems Constitutional: no chills, no fever. Respiratory: no productive cough, no shortness of breath. Cardiovascular: no chest pain. Gastrointestinal: nausea, no abdominal pain, no vomiting, no diarrhea. Physical Examination Vital Signs .Temperature 98 (07:57) Systolic Blood Pressure 137 (07:57) Diastolic Blood Pressure 82 (07:57) Pulse 78 (07:57) SpO2 95 (07:57) Respiratory Rate 18 (08:03) GENERAL: Alert, in no acute distress. HEENT: Anicteric, no subconjunctival petechiae. Moist oral mucosa without lesions or thrush. CARDIOVASCULAR: Regular rate and rhythm. Not able to appreciate any murmurs, rubs, or gallops. No peripheral stigmata of endocarditis. RESPIRATORY: Lungs clear to auscultation. GASTROINTESTINAL: Non-distended, normoactive bowel sounds, non-tender. MUSCULOSKELETAL: No gross deformity. SKIN: No diffuse rash present. No open wounds. NEUROLOGICAL/PSYCH: A&Ox3, grossly intact. LINES: Double lumen Polanco without erythema/edema/tenderness, dressings clean/dry/intact Results Review General results All Labs : LABORATORY 05/14/2022 7:09 EDT Potassium 4.4 mmol/L Magnesium 1.7 mg/dL 05/14/2022 2:31 EDT WBC 4.9 k/mm3 Hgb 8.4 Gm/dL L Platelet Count 253 k/mm3 Sodium 134 mmol/L Chloride 100 mmol/L Bicarbonate Level 26 mmol/L Anion Gap 8 Glucose Level 438 mg/dL H BUN 16 mg/dL Creatinine-Blood 0.5 mg/dL Estimated GFR Creatinine 115 ML/MIN/1.73 M2 Phosphorus 3.9 mg/dL Magnesium 0.9 mg/dL C Microbiology/ID Work-up: 05/12/22: Blood cultures- NGTD 05/10/22: Blood cultures- Staph epidermidis in 1/2 05/08/22: Blood cultures- Staph epidermidis in 03/18 Culture/Event_id: Blood [id number] Collect date: 05/08/22 10:20 Result Status: Auth (Verified) Result Date: 05/11/22 08:10 SPECIMEN DESCRIPTION : BLOOD SPECIAL REQUESTS : NONE CULTURE : STAPHYLOCOCCUS EPIDERMIDIS This isolate was identified using Maldi-TOF system These AST results were performed on the [employer] ID and AST system REPORT STATUS : FINAL 05/11/2022 ORGANISM STAPHYLOCOCCUS EPIDERMIDIS This isolate was identified using Maldi-TOF system These AST results were performed on the [employer] ID and AST system METHOD MIN. INHIB. CONC. (MCG/ML) CIPROFLOXACIN RESISTANT CLINDAMYCIN RESISTANT ERYTHROMYCIN RESISTANT LEVOFLOXACIN RESISTANT RIFAMPIN SUSCEPTIBLE TRIMETH/SULFAMETHOX SUSCEPTIBLE VANCOMYCIN SUSCEPTIBLE 03/04/22: Blood cultures- Negative x2 02/27/22: Blood cultures- MSSA x2 Impression and Plan Impression: The patient is a 46-year-old female with a very extensive past medical history including type 2 diabetes mellitus, numerous antibiotic allergies, fibromyalgia, bipolar disorder, optic neuritis, endometriosis s/p total hysterectomy and bilateral oophorectomy, previous SBO s/p ex lap with lysis of adhesions/mesh removal, chronic malabsorption requiring TPN, and a recent hospitalization in 02/27-03/12for MSSA bacteremia secondary to line infection, for which ID recommended line removal (03/04) and 4weeks of IV cefazolin (ended 03/31) who has now been readmitted on 05/08 with acute onset fever following a malfunctioning Polanco for the past 2 weeks. At this point the most likely source of the bacteremia is her line, as Staphylococcus epidermidis is a CoNS typically found on the skin and a leading cause of catheter related bloodstream infections.Increased suspicion in the setting of recent catheter malfunction and increased line manipulation, and since the first culture to result positive was reportedly drawn from the Polanco. She has no significant wounds or other infectious etiology noted. Unfortunately, all blood cultures drawn have notbeen labeled in detail indicating exactly where they were drawn from although she has seemed to clear. TTE was without obvious signs of endocarditis. Can continue IV vancomycin and vancomycin lock therapy to both Polanco lumens for 14 days from negative blood cultures 05/12. Monitor for infusion related symptoms such as chills while using Polanco. If blood culture do result as positive, line may need to be removed and an alternative ID plan will need to be established. OPAT Script Indication/s: Staph epi bacteremia Antimicrobial/s:??IV vancomycin and vancomycin lock therapy Planned duration: 14 days Start date:?? 05/12 End date: 05/26 Vascular access: Polanco Monitoring labs (test/frequency): CBC w/ diff, BMP Suggested outpt f/u visit: Yes, requested ID Office ; Recommendations: ??? Continue IV vancomycin and vancomycin lock therapy to both Polanco lumens ??? OPAT as above ??? Follow cultures for completeness ??? If blood culture do result as positive, line may need to be removed and an alternative ID plan will need to be established ??? Will schedule outpatient ID follow up ID will sign-off at this time. ??Thank you for the consultation. ??Please call if any questions arise. Shannan Kwan [facility]- Division of Infectious Diseases Discussed with Dr. James Patient Care team information Care Team Personnel Name: dEda Potter RN Position: [facility] RN Member Role: Primary Care Nurse Name: Lola Belcher RN Position: [facility] RN Member Role: Primary Care Nurse Name: Jose Enrique Saul RN Position: [facility] RN Member Role: Primary Care Nurse Name: Symone Mckinnon RN Position: [facility] RN Member Role: Primary Care Nurse Name: Carolyn Pelaez RN Position: [facility] RN Member Role: Primary Care Nurse Name: Fanny Mixon RN Position: [facility] ED RN W/OE and Tasks Member Role: Primary Care Nurse Name: María Ashford RN Position: [facility] AMB Nurse Member Role: Primary Care Nurse Name: Chanelle Hernandez RN Position: [facility] AMB Nurse Member Role: Primary Care Nurse Name: Estelle García RN Position: [facility] RN Member Role: Primary Care Nurse Name: Deanne Rangel RN Position: [facility] RN Member Role: Primary Care Nurse Name: Carine Jimenez RN Position: [facility] SN RN Member Role: Primary Care Nurse Name: Jenelle Campo RN Position: [facility] RN Member Role: Primary Care Nurse Name: Keyla Godwin RN Position: [facility] RN Member Role: Primary Care Nurse Name: Yeimi Devine RN Position: [facility] RN Member Role: Primary Care Nurse Name: Mary Yan RN Position: [facility] RN Member Role: Primary Care Nurse Name: Iliana Pop RN Position: [facility] RN Member Role: Primary Care Nurse Name: Alcides Dueñas RN Position: [facility] RN Member Role: Primary Care Nurse Name: Lisa Beatty Position: [facility] Outreach Member Role: Lifetime Consulting Physician Name: Armida Beatty RN Position: [facility] RN Member Role: Primary Care Nurse Name: Deonna Beatty RN Position: [facility] RN Member Role: Primary Care Nurse Name: Roque Villasenor MD Position: [facility] Renal MD Member Role: Lifetime Consulting Physician Address: Address: [address] [place] [address], [address] [facility] [address] Name: Lashon Lovell RN Position: [facility] SN RN Member Role: Primary Care Nurse Name: Kristi Giraldo RN Position: [facility] RN Supv Member Role: Primary Care Nurse Name: Jerrod Casarez RN Position: [facility] RN Member Role: Primary Care Nurse Name: Shane Riley RN Position: [facility] RN Member Role: Primary Care Nurse Name: Isac Plascencia RN Position: [facility] RN Member Role: Primary Care Nurse Name: Rosalva Martin RN Position: [facility] RN Member Role: Primary Care Nurse Name: Sheela Matt RN Position: [facility] RN Member Role: Primary Care Nurse Name: Armida Ochoa RN Position: [facility] RN Member Role: Primary Care Nurse Name: Felipa Diehl RN Position: [facility] HBO Wound Member Role: Primary Care Nurse Name: Evelin Powell RN Position: [facility] AMB Nurse Member Role: Primary Care Nurse Name: Donald Murphy MD Position: [facility] Renal MD Member Role: Lifetime Consulting Physician Address: Address: [address] [place], [place] [address] [place] [place] [address]- Name: Deonna Pendleton RN Position: [facility] RN Member Role: Primary Care Nurse Name: Pili Kaba RN Position: [facility] RN Member Role: Primary Care Nurse Name: Alejandro Yanes RN Position: [facility] RN Member Role: Primary Care Nurse Name: Stacey Díaz RN Position: [facility] SN RN Member Role: Primary Care Nurse Name: Jac Reese RN Position: [facility] RN Member Role: Primary Care Nurse Name: Celestine Schwartz RN Position: [facility] RN Member Role: Primary Care Nurse Name: Neeta Carpenter RN Position: [facility] RN Member Role: Primary Care Nurse Name: Susie Estrada RN Position: [facility] RN Member Role: Primary Care Nurse Name: Inna Cantor RN Position: [facility] RN Member Role: Primary Care Nurse Name: Chaparrita Pizano DO Position: [facility] Physician (General Medicine) Member Role: PCP Address: Address: [address] [place] [id number]- [place] Name: Ning Rolon RN Position: [facility] RN Member Role: Primary Care Nurse Name: Rubi Carrasco RN Position: [facility] SN RN Member Role: Primary Care Nurse Name: Lauryn oHlden RN Position: [facility] RN Member Role: Primary Care Nurse Name: Jones Cervantes RN Position: [facility] RN Member Role: Primary Care Nurse Name: Olivia Caputo RN Position: [facility] RN Member Role: Primary Care Nurse Name: Brooklyn Jim RN Position: [facility] RN Member Role: Primary Care Nurse Name: Kimberly Santoro RN Position: [facility] RN Member Role: Primary Care Nurse Name: Haley Diamond RN Position: [facility] RN Member Role: Primary Care Nurse Name: Ashley Meléndez NP Position: [facility] PCO Associate Professional Member Role: Primary Care Nurse Address: Address: [address] [place] [address] [address] [place] [address]- Name: Siomara Patricia RN Position: [facility] PCO RN Member Role: Primary Care Nurse Name: Neeta Painter RN Position: [facility] RN Member Role: Primary Care Nurse Name: Bailey Espinal RN Position: [facility] AMB Nurse Member Role: Primary Care Nurse Name: Brooklyn Ramsey RN Position: [facility] RN Member Role: Primary Care Nurse Name: Keyla Bright RN Position: [facility] RN Member Role: Primary Care Nurse Name: Lesli Corcoran RN Position: [facility] RN Member Role: Primary Care Nurse Name: Beverley Tatum RN Position: [facility] RN Member Role: Primary Care Nurse Name: Mainor Devries RN Position: [facility] RN Member Role: Primary Care Nurse Name: Yarely Richards RN Position: [facility] Ignition Specialist Member Role: Primary Care Nurse Name: Oralia Massey RN Position: [facility] RN Member Role: Primary Care Nurse Name: Cassie Villanueva RN Position: [facility] RN Member Role: Primary Care Nurse Name: Taiwo Mcgregor RN Position: [facility] RN Member Role: Primary Care Nurse Name: Cally Funes RN Position: [facility] SN RN Member Role: Primary Care Nurse Name: Lisa Blanton RN Position: [facility] Ignition Specialist Member Role: Primary Care Nurse Name: Joel Blanton RN Position: [facility] RN Member Role: Primary Care Nurse Name: Danica Stuart RN Position: [facility] AMB Nurse Member Role: Primary Care Nurse Name: Virginia Bacon RN Position: [facility] RN Member Role: Primary Care Nurse Name: Shruthi Ray RN Position: [facility] Onco RN Member Role: Primary Care Nurse Name: Abbe Choe RN Position: [facility] RN Supv Member Role: Primary Care Nurse Name: Farideh Cat LPN Position: [facility] RN Member Role: Primary Care Nurse Name: Janis Morris RN Position: [facility] Hospital Ignition Specialist Member Role: Primary Care Nurse Name: Darrian Chang RN Position: [facility] Ignition Specialist Member Role: Primary Care Nurse Name: Josef Woods RN Position: [facility] RN Member Role: Primary Care Nurse Name: Siomara Raphael RN Position: [facility] RN Member Role: Primary Care Nurse Name: Jerry Mcneill RN Position: [facility] RN Member Role: Primary Care Nurse Name: [facility] Attending Position: [facility] ED Medicine MD Name: Maria E Yun RN Position: [facility] ED RN W/OE and Tasks Member Role: Patient Care Provider Name: Carmelo Latham Position: [facility] ED TA [facility] Name: Paty Choi Position: [facility] ED OA Charge Member Role: ED Associate Care Team Related Persons Name: IVAN VILLASENOR Address: [place] [address] Name: REYNALDO KAUR Address: home [address] [place] [address] Name: EMMA SERRANO Address: home [address] [address] Name: PATRICK MATA Address: home [address] [place] [address] Name: FARIDEH POPE Address: [place] [address]
--- OUTSIDE RECORDS SUMMARY | 2022-11-29 17:43 | XMS_ITS | Continuity of Care Document ---
Author Name Unknown Organization [facility] Address [address] [address]- Care Team Providers Care Laboratory Equipment Installer Name Role Phone Chaparrita Pizano DO Primary Care Physician Encounter [facility] Date(s): 07/03/22 - 10/31/22 [facility] [address] [place] [address] Attending Physician: Jorge L MARES, Symone Morrison Admitting Physician: Jorge L MARES, Symone Morrison Referring Physician: Lubna Hunt Allergies, Adverse Reactions, Alerts Substance Reaction Severity Status doxycycline mouth swelling Active ceftriaxone hives Active penicillin throat swelling Rash Persistent Severe Active famotidine vomiting Active morphine 1, 2, 3 hives Active iodine topical swelling itching Active melatonin Active Pepcid vomitng Active Zofran 4 can only be given w/ benadryl hives Active Nexium diarrhea, vomitting Active Levaquin [...] to receive vaccine 2Admin Note: manufactured by [employer] Medications albuterol CFC free 90 mcg/inh inhalation aerosol 2, puffs, Inhalation, 4 times a day, PRN, # 1 each, Refills 6, Tot. Refills 6, Maintenance, 09/30/22 10:30:00 EDT, Aerosol, Route to Pharmacy Electronically, [id number], [facility]/pharmacy #[id number], 155, cm, 09/30/22 9:15:00 EDT, Heig... Start Date: 09/30/22 Status: Ordered bisacodyl 5 mg oral delayed release tablet 1 tablet = 5 mg, By Mouth, Daily, Maintenance, 10/04/18 16:16:38 EDT, EC Tablet Start Date: 10/04/18 Status: Ordered Breo Ellipta 100 mcg-25 mcg/inh inhalation powder 1 puffs, Inhalation, Daily, rinse after each use, # 1 each, 4 Refills, Maintenance, 09/30/22 9:45:00 EDT, Powder, [facility]/pharmacy #[id number], Partial fill upon patient request if the prescription is for a schedule II opioid drug., 1 puffs Inhalation Daily,Ins... Start Date: 09/30/22 Status: Ordered Carafate 1 gm oral tablet 1 Gm, 1, tablet, By Mouth, 3 times a day before meals and bedtime, # 120 tablet, Refills 0, Tot. Refills 0, Maintenance, 03/12/22 12:08:00 EST, Route to Pharmacy Electronically, [facility], Partial fill upon patient request if the prescr... Start Date: 03/12/22 Stop Date: 04/11/22 Status: Ordered diazepam 5 mg oral tablet 5 mg, 1, tablet, By Mouth, 2 times a day, Refills 0, Maintenance, 06/15/22 6:50:00 EDT, Partial fill upon patient request if the prescription is for a schedule II opioid drug. Start Date: 06/15/22 Status: Ordered DiphenhydrAMINE See Instructions, 50 mg IV Infusion, [...] 03/09/23 23:00:00 EST, 03/12/22 12:10:00 EST, Patch, [facility], Partial fill upon patient [...] tablet, 0 Refills, Maintenance, 04/02/20 9:29:00 EST, [facility], Partial fill upon patient request if the prescription is for a schedule II opioid drug., 154.94, cm, 04/02/20 8... Start Date: 04/02/20 Status: Ordered oxybutynin 5 mg/5 mL oral syrup 5 mL = 5 mg, By Mouth, 3 times a day, for bladder spasm, # 450 mL, 0 Refills, Maintenance, 06/16/2310:29:00 EDT, Syrup, [facility]/pharmacy #[id number], Partial fill upon patient request if the [...] 12:06:00 EST, Route to Pharmacy Electronically, [facility], Partial fill uponpatient request if [...] 06/21/18 11:05:15 EDT, Route to Pharmacy Electronically, [id number], [facility] Start Date: 06/21/18 Status: Ordered [...] WITH PROLONGED DEPRESSIVE REACTION Confirmed 02/03/07 Active [facility] Team Senior Level Patient Confirmed Active ASTHMA Confirmed 02/03/07 Active Bipolar disorder Confirmed Active Morbid obesity with BMI of 50.0-59.9, adult Confirmed Active Status post total hysterectomy 03/22/06, pathology was benign. Unless there is a history of SHELLY III or cancer, Pap smears are no longer needed Confirmed Active COPD (chronic obstructive pulmonary disease) Confirmed Active Constipation Confirmed Active Peripheral autonomic neuropathy due to DM [...] Social History Type Response Smoking Status Former smoker, quit more than 30 days ago;Never; Type: Cigarettes; Exposure to Secondhand Smoke: Yes; Previous treatment: None; Tobacco use times per day: 1/2 pack per day; quit 04/20/2015; Number of years: 10; entered on: 09/30/22 Sex Patient Care team information Care Team Personnel Name: Lola Belcher RN Position: S RN Member Role: Primary Care Nurse Name: Lilian Montes De Oca RN Position: S RN Member Role: Primary Care Nurse Name: Jose Enrique Saul RN Position: S RN Member Role: Primary Care Nurse Name: Symone Mckinnon RN Position: [facility] RN Member Role: Primary Care Nurse Name: Carolyn Pelaez RN Position: [facility] RN Member Role: Primary Care Nurse Name: Fanny Mixon RN Position: [facility] ED RN W/OE and Tasks Member Role: Primary Care Nurse Name: María Ashford RN Position: [facility] AMB Nurse Member Role: Primary Care Nurse Name: Chanelle Hernandez RN Position: [facility] AMB Nurse Member Role: Primary Care Nurse Name: Estelle García RN Position: [facility] RN Member Role: Primary Care Nurse Name: Deanne Rangel RN Position: [facility] RN Member Role: Primary Care Nurse Name: Carine Jimenez RN Position: [facility] SN RN Member Role: Primary Care Nurse Name: Jenelle Campo RN Position: [facility] RN Member Role: Primary Care Nurse Name: Keyla Godwin RN Position: [facility] RN Member Role: Primary Care Nurse Name: Yeimi Devine RN Position: [facility] RN Member Role: Primary Care Nurse Name: Mary Yan RN Position: [facility] RN Member Role: Primary Care Nurse Name: Iliana Pop RN Position: [facility] RN Member Role: Primary Care Nurse Name: Clovis Wang RN Position: [facility] RN Member Role: Primary Care Nurse Name: Alcides Dueñas RN Position: [facility] RN Member Role: Primary Care Nurse Name: Lisa Beatty Position: [facility] Outreach Member Role: Lifetime Consulting Physician Name: Armida Beatty RN Position: [facility] RN Member Role: Primary Care Nurse Name: Deonna Beatty RN Position: [facility] RN Member Role: Primary Care Nurse Name: Roque Villasenor MD Position: [facility] Renal MD Member Role: Lifetime Consulting Physician Address: Address: [address] [place] [address], [address] [facility] [address] Name: Lashon Lovell RN Position: [facility] SN RN Member Role: Primary Care Nurse Name: Jerrod Casarez RN Position: [facility] RN Member Role: Primary Care Nurse Name: Shane Riley RN Position: [facility] RN Member Role: Primary Care Nurse Name: Isac Plascencia RN Position: [facility] RN Member Role: Primary Care Nurse Name: Rosalva Martin RN Position: [facility] RN Member Role: Primary Care Nurse Name: Sheela Matt RN Position: [facility] RN Member Role: Primary Care Nurse Name: Armida Ochoa RN Position: [facility] RN Member Role: Primary Care Nurse Name: Felipa Diehl RN Position: [facility] HBO Wound Member Role: Primary Care Nurse Name: Donald Murphy MD Position: [facility] Renal MD Member Role: Lifetime Consulting Physician Address: Address: [address] [place], [place] [address] [place] [address]- Name: Pili Kaba RN Position: [facility] RN Member Role: Primary Care Nurse Name: Alejandro Yanes RN Position: [facility] RN Member Role: Primary Care Nurse Name: Stacey Díaz RN Position: [facility] ED RN W/OE and Tasks Member Role: Primary Care Nurse Name: Jac Reese RN Position: [facility] RN Member Role: Primary Care Nurse Name: Erica Maya Position: [facility] TA Member Role: Lifetime Consulting Physician Name: Gillian Olsen RN Position: [facility] RN Member Role: Primary Care Nurse Name: Celestine Schwartz RN Position: [facility] RN Member Role: Primary Care Nurse Name: Neeta Carpenter RN Position: [facility] RN Member Role: Primary Care Nurse Name: Susie Estrada RN Position: [facility] RN Member Role: Primary Care Nurse Name: Inna Cantor RN Position: [facility] RN Member Role: Primary Care Nurse Name: Chaparrita Pizano DO Position: [facility] Physician (General Medicine) Member Role: PCP Address: Address: [address] [place] [address] [place] [address]- Name: Ning Rolon RN Position: [facility] RN Member Role: Primary Care Nurse Name: Rubi Carrasco RN Position: [facility] SN RN Member Role: Primary Care Nurse Name: Lauryn Holden RN Position: [facility] RN Member Role: Primary Care Nurse Name: Jones Cervantes RN Position: [facility] RN Member Role: Primary Care Nurse Name: Olivia Caputo RN Position: [facility] RN Member Role: Primary Care Nurse Name: Brooklyn Jim RN Position: [facility] RN Member Role: Primary Care Nurse Name: Kimberly Santoro RN Position: [facility] RN Member Role: Primary Care Nurse Name: Haley Diamond RN Position: [facility] RN Member Role: Primary Care Nurse Name: Ashley Meléndez NP Position: [facility] PCO Associate Professional Member Role: Primary Care Nurse Address: Address: [address] [place] [address] 3rd floor [facility] [place] [address]- Name: Siomara Patricia RN Position: [facility] AMB Nurse Member Role: Primary Care Nurse Name: Neeta Painter RN Position: [facility] RN Member Role: Primary Care Nurse Name: Edith Drummond RN Position: [facility] SN RN Member Role: Primary Care Nurse Name: Rosalva Fabian RN Position: [facility] RN Member Role: Primary Care Nurse Name: Bailey Espinal RN Position: [facility] Nurse Member Role: Primary Care Nurse Name: Brooklyn Ramsey RN Position: [facility] RN Member Role: Primary Care Nurse Name: Keyla Bright RN Position: [facility] RN Member Role: Primary Care Nurse Name: Beverley Tatum RN Position: [facility] RN Member Role: Primary Care Nurse Name: Mainor Devries RN Position: [facility] RN Member Role: Primary Care Nurse Name: Yarely Richards RN Position: [facility] Electronic News Gathering Editor Member Role: Primary Care Nurse Name: Oralia Massey RN Position: [facility] RN Member Role: Primary Care Nurse Name: Cassie Villanueva RN Position: [facility] RN Member Role: Primary Care Nurse Name: Taiwo Mcgregor RN Position: [facility] RN Member Role: Primary Care Nurse Name: Cally Funes RN Position: [facility] SN RN Member Role: Primary Care Nurse Name: Marina Willard Position: [facility] MA Member Role: Primary Care Nurse Name: Lisa Blanton RN Position: [facility] Electronic News Gathering Editor Member Role: Primary Care Nurse Name: Joel Blanton RN Position: [facility] RN Member Role: Primary Care Nurse Name: Danica Stuart RN Position: [facility] Nurse Member Role: Primary Care Nurse Name: Virginia Bacon RN Position: [facility] RN Member Role: Primary Care Nurse Name: Shruthi Ray RN Position: [facility] Onco RN Member Role: Primary Care Nurse Name: Abbe Choe RN Position: [facility] RN Supv Member Role: Primary Care Nurse Name: Farideh Cat LPN Position: [facility] RN Member Role: Primary Care Nurse Name: Janis Morris RN Position: [facility] Electronic News Gathering Editor Member Role: Primary Care Nurse Name: Darrian Chang RN Position: [facility] Electronic News Gathering Editor Member Role: Primary Care Nurse Name: Josef Woods RN Position: [facility] RN Member Role: Primary Care Nurse Name: Siomara Raphael RN Position: [facility] RN Member Role: Primary Care Nurse Name: Jerry Mcneill RN Position: [facility] RN Member Role: Primary Care Nurse Care Team Related Persons Name: IVAN VILLASENOR Address: [place] [address] Name: REYNALDO KAUR Address: home [address] [place] [address] Name: EMMA SERRANO Address: home [address] [address] Name: PATRICK MATA Address: home [address] [place] [address] Name: FARIDEH POPE Address: [place] [address]
--- OUTSIDE RECORDS SUMMARY | 2022-11-29 17:44 | XMS_ITS | Continuity of Care Document ---
Author Name Unknown Organization [facility] ter Address [address] [place] [address]- Care Team Providers Care Zig Zag Spring Machine Operator Name Role Phone Jerica DOChaparrita Primary Care Physician ( [phone] Encounter [facility] Date(s): 09/30/22 - 11/12/[address] [address]- Attending Physician: Norman Redmond MD Admitting Physician: Norman Redmond MD Referring Physician: Jelena Myers MD Allergies, Adverse Reactions, Alerts Substance Reaction [...] to receive vaccine 2Admin Note: manufactured by [employer] Medications albuterol CFC free 90 mcg/inh inhalation aerosol 2, puffs, Inhalation, 4 times a day, PRN, # 1 each, Refills 6, Tot. Refills 6, Maintenance, 09/30/22 10:30:00 EDT, Aerosol, Route to Pharmacy Electronically, [id number], [facility]/pharmacy #[id number], 155, cm, 09/30/22 9:15:00 EDT, Heig... Start Date: 09/30/22 Status: Ordered bisacodyl 5 mg oral delayed release tablet 1 tablet = 5 mg, By Mouth, Daily, Maintenance, 10/04/18 16:16:38 EDT, EC Tablet Start Date: 10/04/18 Status: Ordered Breo Ellipta 100 mcg-25 mcg/inh inhalation powder 1 puffs, Inhalation, Daily, rinse after each use, # 1 each, 4 Refills, Maintenance, 09/30/22 9:45:00 EDT, Powder, [facility]/pharmacy #[id number], Partial fill upon patient request if the prescription is for a schedule II opioid drug., 1 puffs Inhalation Daily,Ins... Start Date: 09/30/22 Status: Ordered Carafate 1 gm oral tablet 1 Gm, 1, tablet, By Mouth, 3 times a day before meals and bedtime, # 120 tablet, Refills 0, Tot. Refills 0, Maintenance, 03/12/22 12:08:00 EST, [facility], Partial fill upon patient request if [...] 03/09/23 23:00:00 EST, 03/12/22 12:10:00 EST, Patch, [facility], Partial fill upon patient request if... Start Date: 03/12/22 Stop Date: 03/09/23 Status: Ordered Macrobid macrocrystals-monohydrate 100 mg oral capsule 1 capsule = 100 mg, By Mouth, 2 times a day, for 5 days, # 10 capsule, 0 Refills, Acute 11/15/22 22:00:00 EDT, 11/10/22 22:00:00 EDT, Capsule, [facility]/pharmacy #[id number], Partial fill upon patient request ifthe prescription is for a schedule II opioid drug.,... Start Date: 11/10/22 Stop Date: 11/15/22 Status: Ordered magnesium sulfate 4 g/100 mL-NaCl [...] tablet, 0 Refills, Maintenance, 04/02/20 9:29:00 EST, [facility], Partial fill upon patient request if the prescription is for a schedule II opioid drug., 154.94, cm, 04/02/20 8... Start Date: 04/02/20 Status: Ordered oxybutynin 5 mg/5 mL oral syrup 5 mL = 5 mg, By Mouth, 3 times a day, for bladder spasm, # 450 mL, 0 Refills, Maintenance, 06/16/2310:29:00 EDT, Syrup, [facility]/pharmacy #[id number], Partial fill upon patient [...] 03/12/22 12:06:00 EST, Route to Pharmacy Electronically, [facility], Partial fill uponpatient request [...] 06/21/18 11:05:15 EDT, Route to Pharmacy Electronically, [id number], [facility] Start Date: [...] WITH PROLONGED DEPRESSIVE REACTION Confirmed 02/03/07 Active [facility] [place] Team Senior Level Patient Confirmed Active ASTHMA [...] Name: Lilian Montes De Oca RN Position: [facility] RN Member Role: Primary Care Nurse Name: Jose Enrique Saul RN Position: [facility] RN Member Role: Primary Care Nurse Name: Symone Mckinnon RN Position: [facility] RN Member Role: Primary Care Nurse Name: Carolyn Pelaez RN Position: [facility] RN Member Role: Primary Care Nurse Name: María [...] Care Nurse Name: Clovis Wang RN Position: [facility] RN [...] Member Role: Lifetime Consulting Physician Address: Address: [address] [place] [address], [address] [facility] [address] Name: Lashon Lovell RN [facility]: [facility] Role: Lifetime Consulting Physician Address: Address: [address] [place], [place] [address] [place] [address]- Name: Pili Kaba RN Position: [facility] RN Member Role: Primary Care Nurse Name: Alejandro Yanes RN Position: [facility] RN Member Role: Primary Care Nurse Name: Stacey Díaz RN Position: [facility] ED RN W/OE and Tasks Member Role: Primary Care Nurse Name: Jac Reese RN Position: [facility] RN Member Role: Primary Care Nurse Name: Gillian Olsen RN Position: [facility] RN [...] (General Medicine) Member Role: PCP Address: Address: [address] [place] [address]- [place] Name: Nnig Rolon RN Position: [facility] [...] Member Role: Primary Care Nurse Address: Address: [address] [place] [address] 3rd floor [facility] [place] [address]- Name: Siomara Patricia RN Position: [facility] AMB Nurse Member Role: Primary Care Nurse Name: Neeta Painter RN Position: [facility] RN Member Role: Primary Care Nurse Name: Edith Drummond RN Position: [facility] SN RN Member Role: Primary Care Nurse Name: Rosalva Fabian RN Position: [facility] RN Member Role: Primary Care Nurse Name: Baiely Espinal RN Position: [facility] Nurse [...] Care Nurse Name: Yarely Richards RN Position: [facility] Cigar Bander Hand Member Role: Primary Care Nurse Name: Oralia [...] Care Nurse Name: Lisa Blanton RN Position: [facility] [employer] Hand Member Role: Primary Care Nurse Name: Joel [...] Care Nurse Name: Janis Morris RN Position: [facility] [employer] Hand Member Role: Primary Care Nurse Name: Darrian Chang RN Position: [facility] [employer] Member Role: Primary Care Nurse Name: Josef Woods RN Position: [facility] RN Member Role: Primary Care Nurse Name: Siomara Raphael RN Position: [facility] RN Member Role: Primary Care Nurse Name: Jerry Mcneill RN Position: [facility] RN Member Role: Primary Care Nurse Care Team Related Persons Name: IVAN VILLASENOR Address: [place] [address] Name: REYNALDO KAUR Address: home [address] [place] [address] Name: EMMA SERRANO Address: home [address] [address] Name: PATRICK MATA Address: home [address] [place] [address] Name: FARIDEH POPE Address: [place] [address]
--- OUTSIDE RECORDS SUMMARY | 2022-11-29 17:47 | XMS_ITS | Continuity of Care Document ---
Author Name Unknown Organization [facility] Address [address] [place] [address] [address] [place] [address]- Care Team Providers Care Line Leader Name Role Phone Chaparrita Pizano DO Primary Care Physician Encounter [facility] Date(s): 10/01/22 - 10/31/22 [facility] [address] [place] [address]- Allergies, Adverse Reactions, Alerts Substance Reaction Severity Status doxycycline mouth swelling Active ceftriaxone hives Active penicillin throat swelling Rash Persistent Severe Active melatonin Active Levaquin tingling in mouth, rash Acti ve famotidine vomiting Active morphine 1, 2, 3 [...] to receive vaccine 2Admin Note: manufactured by [employer] Medications albuterol CFC free 90 mcg/inh inhalation aerosol 2, puffs, Inhalation, 4 times a day, PRN, # 1 each, Refills 6, Tot. Refills 6, Maintenance, 09/30/22 10:30:00 EDT, Aerosol, Route to Pharmacy Electronically, [id number], [facility]/pharmacy #[id number], 155, cm, 09/30/22 9:15:00 EDT, [...] 4 Refills, Maintenance, 09/30/22 9:45:00 EDT, Powder, [facility]/pharmacy #[id number], Partial fill upon patient [...] Maintenance, 04/02/20 9:29:00 EST, [facility], Partial fill upon patient request if the prescription is for a schedule II opioid drug., 154.94, cm, 04/02/20 8... Start Date: 04/02/20 Status: Ordered oxybutynin 5 mg/5 mL oral syrup 5 mL = 5 mg, By Mouth, 3 times a day, for bladder spasm, # 450 mL, 0 Refills, Maintenance, 06/16/2310:29:00 EDT, Syrup, [facility]/pharmacy #[id number], Partial fill [...] Route to Pharmacy Electronically, [facility], Partial fill uponpatient [...] 06/21/18 11:05:15 EDT, Route to Pharmacy Electronically, [id number], [facility] Start Date: 06/21/18 Status: [...] WITH PROLONGED DEPRESSIVE REACTION Confirmed 02/03/07 Active [facility] [place] Team Senior Level Patient Confirmed Active ASTHMA [...] Team Personnel Name: Lola Belcher RN Position: [facility] RN Member Role: Primary Care Nurse Name: Lilian Montes De Oca RN Position: S RN Member Role: Primary Care Nurse Name: Jose Enrique Saul RN Position: S RN Member Role: Primary Care Nurse Name: Symone Mckinnon RN Position: S RN Member Role: Primary Care Nurse Name: Carolyn Pelaez RN Position: [facility] RN Member Role: Primary Care Nurse Name: Fanny Mixon RN Position: [facility] ED RN W/OE and Tasks Member Role: Primary Care Nurse Name: María Ashford RN Position: [facility] AMB Nurse Member Role: Primary Care Nurse Name: Chanelle Hernandez RN Position: [facility] AMB Nurse Member Role: Primary Care Nurse Name: Estelle García RN Position: [facility] RN Member Role: Primary Care Nurse Name: Deanne Rangel RN Position: [facility] RN Member Role: Primary Care Nurse Name: Carine Jimenez RN Position: [facility] SN RN Member Role: Primary Care Nurse Name: Jenelle Campo RN Position: [facility] RN Member Role: Primary Care Nurse Name: Keyla Godwin RN Position: [facility] RN Member Role: Primary Care Nurse Name: Yeimi Devine RN Position: [facility] RN Member Role: Primary Care Nurse Name: Mary Yan RN Position: [facility] RN Member Role: Primary Care Nurse Name: Iliana Pop RN Position: [facility] RN Member Role: Primary Care Nurse Name: Clovis Wang RN Position: [facility] RN Member Role: Primary Care Nurse Name: Alcides Dueñas RN Position: [facility] RN Member Role: Primary Care Nurse Name: Lisa Beatty Position: [facility] Outreach Member Role: Lifetime Consulting Physician Name: Armida Beatty RN Position: [facility] RN Member Role: Primary Care Nurse Name: Deonna Beatty RN Position: [facility] RN Member Role: Primary Care Nurse Name: Roque Villasenor MD Position: [facility] Renal MD Member Role: Lifetime Consulting Physician Address: Address: [address] [place] [address], [address] [facility] [address] Name: Lashon Lovell RN Position: [facility] SN RN Member Role: Primary Care Nurse Name: Jerrod Casarez RN Position: [facility] RN Member Role: Primary Care Nurse Name: Shane Riley RN Position: [facility] RN Member Role: Primary Care Nurse Name: Isac Plascencia RN Position: [facility] RN Member Role: Primary Care Nurse Name: Rosalva Martin RN Position: [facility] RN Member Role: Primary Care Nurse Name: Sheela Matt RN Position: [facility] RN Member Role: Primary Care Nurse Name: Armida Ochoa RN Position: [facility] RN Member Role: Primary Care Nurse Name: Felipa Diehl RN Position: [facility] HBO Wound Member Role: Primary Care Nurse Name: Donald Murphy MD Position: [facility] Renal MD Member Role: Lifetime Consulting Physician Address: Address: [address] [place], [place] [address] [place] [address]- Name: Pili Kaba RN Position: [facility] RN Member Role: Primary Care Nurse Name: Alejandro Yanes RN Position: [facility] RN Member Role: Primary Care Nurse Name: Stacey Díaz RN Position: [facility] ED RN W/OE and Tasks Member Role: Primary Care Nurse Name: Jac Reese RN Position: [facility] RN Member Role: Primary Care Nurse Name: Erica Maya Position: [facility] TA Member Role: Lifetime Consulting Physician Name: Gillian Olsen RN Position: [facility] RN Member Role: Primary Care Nurse Name: Celestine Schwartz RN Position: [facility] RN Member Role: Primary Care Nurse Name: Neeta Carpenter RN Position: [facility] RN Member Role: Primary Care Nurse Name: Susie Estrada RN Position: [facility] RN Member Role: Primary Care Nurse Name: Inna Cantor RN Position: [facility] RN Member Role: Primary Care Nurse Name: Chaparrita Pizano DO Position: [facility] Physician (General Medicine) Member Role: PCP Address: Address: [address] [place] [id number]- Name: Ning Rolon RN Position: [facility] RN Member Role: Primary Care Nurse Name: Rubi Carrasco RN Position: [facility] SN RN Member Role: Primary Care Nurse Name: Lauryn Holden RN Position: [facility] RN Member Role: Primary Care Nurse Name: Jones Cervantes RN Position: [facility] RN Member Role: Primary Care Nurse Name: Olivia Caputo RN Position: [facility] RN Member Role: Primary Care Nurse Name: Brooklyn Jim RN Position: [facility] RN Member Role: Primary Care Nurse Name: Kimberly Santoro RN Position: [facility] RN Member Role: Primary Care Nurse Name: Haley Diamond RN Position: [facility] RN Member Role: Primary Care Nurse Name: Ashley Meléndez NP Position: [facility] PCO Associate Professional Member Role: Primary Care Nurse Address: Address: [address] [place] [address] 3rd floor [facility] [place] [address]- Name: Siomara Patricia RN Position: [facility] AMB Nurse Member Role: Primary Care Nurse Name: Neeta Painter RN Position: [facility] RN Member Role: Primary Care Nurse Name: Edith Drummond RN Position: [facility] SN RN Member Role: Primary Care Nurse Name: Rosalva Fabian RN Position: [facility] RN Member Role: Primary Care Nurse Name: Bailey Espinal RN Position: [facility] Nurse Member Role: Primary Care Nurse Name: Brooklyn Ramsey RN Position: [facility] RN Member Role: Primary Care Nurse Name: Keyla Bright RN Position: [facility] RN Member Role: Primary Care Nurse Name: Beverley Tatum RN Position: [facility] RN Member Role: Primary Care Nurse Name: Mainor Devries RN Position: [facility] RN Member Role: Primary Care Nurse Name: Yarely Richards RN Position: [facility] Territory Service Representative Member Role: Primary Care Nurse Name: Oralia Massey RN Position: [facility] RN Member Role: Primary Care Nurse Name: Cassie Villanueva RN Position: [facility] RN Member Role: Primary Care Nurse Name: Taiwo Mcgregor RN Position: [facility] RN Member Role: Primary Care Nurse Name: Cally Funes RN Position: [facility] SN RN Member Role: Primary Care Nurse Name: Marina Willard Position: [facility] [place] Member Role: Primary Care Nurse Name: Lisa Blanton RN Position: [facility] Territory Service Representative Member Role: Primary Care Nurse Name: Joel Blanton RN Position: [facility] RN Member Role: Primary Care Nurse Name: Danica Stuart RN Position: [facility] Nurse Member Role: Primary Care Nurse Name: Virginia Bacon RN Position: [facility] RN Member Role: Primary Care Nurse Name: Shruthi Ray RN Position: [facility] Oncsharon RN Member Role: Primary Care Nurse Name: Abbe Choe RN Position: [facility] RN Supv Member Role: Primary Care Nurse Name: Farideh Cat LPN Position: [facility] RN Member Role: Primary Care Nurse Name: Janis Morris RN Position: [facility] Territory Service Representative Member Role: Primary Care Nurse Name: Bernardo WILSON, Darrian Position: [facility] Territory Service Representative Member Role: Primary Care Nurse Name: Josef Woods RN Position: [facility] RN Member Role: Primary Care Nurse Name: Siomara Raphael RN Position: [facility] RN Member Role: Primary Care Nurse Name: Jerry Mcneill RN Position: [facility] RN Member Role: Primary Care Nurse Care Team Related Persons Name: IVAN VILLASENOR Address: [place] [address] Name: REYNALDO KAUR Address: home [address] [place] [address] Name: EMMA SERRANO Address: home [address] [address] Name: PATRICK MATA Address: home [address] [place] [address] Name: FARIDEH POPE Address: [place] [address]
--- OUTSIDE RECORDS SUMMARY | 2022-11-29 17:48 | XMS_ITS | Continuity of Care Document ---
Author Name Unknown Organization [facility] Address [address], [address] [place] [address]- Care Team Providers Care Broom Bundler Name Role Phone Chaparrita Pizano DO Primary Care Physician [place] [facility] [place]): [place]22 - 09/03/22 [facility] [address], [address] [place], [place] [address] Attending Physician: Admtr, Ar8 Admitting Physician: Admtr, Ar8 Referring Physician: Admtr, Ar8 Allergies, Adverse Reactions, [...] to receive vaccine 2Admin Note: manufactured by [employer] Medications albuterol CFC free 90 mcg/inh inhalation [...] 03/12/22 12:08:00 EST, Route to Pharmacy Electronically, [facility], Partial fill upon patient [...] 03/09/23 23:00:00 EST, 03/12/22 12:10:00 EST, Patch, [facility], Partial fill upon patient [...] tablet, 0 Refills, Maintenance, 04/02/20 9:29:00 EST, [facility] 3, Partial fill upon patient request if the prescription is for a schedule II opioid drug., 154.94, cm, 04/02/20 8... Start Date: 04/02/20 Status: Ordered oxybutynin 5 mg/5 mL oral syrup 5 mL = 5 mg, By Mouth, 3 times a day, for bladder spasm, # 450 mL, 0 Refills, Maintenance, 06/16/2310:29:00 EDT, Syrup, [facility]/pharmacy #[id number], [...] to Pharmacy Electronically, [facility] 3, Partial fill uponpatient request if the [...] 06/21/18 11:05:15 EDT, Route to Pharmacy Electronically, [id number], [facility] 3 Start Date: 06/21/18 Status: [...] WITH PROLONGED DEPRESSIVE REACTION Confirmed 02/03/07 Active [facility] [place] Team Senior Level Patient Confirmed Active ASTHMA [...] Team Personnel Name: Lola Belcher RN Position: [facility] RN Member Role: Primary Care Nurse Name: Jose Enrique Saul RN Position: [facility] RN Member Role: Primary Care Nurse Name: Symone Mckinnon RN Position: [facility] RN Member Role: Primary Care Nurse Name: Carolyn Pelaez RN Position: [facility] RN Member Role: Primary Care Nurse Name: Fanny Mixon RN Position: [facility] ED RN W/OE and Tasks Member Role: Primary Care Nurse Name: María Ashford RN Position: [facility] AMB Nurse Member Role: Primary Care Nurse Name: Chanelle Hernandez RN Position: [facility] AMB Nurse Member Role: Primary Care Nurse Name: Estelle García RN Position: [facility] RN Member Role: Primary Care Nurse Name: Deanne Rangel RN Position: [facility] RN Member Role: Primary Care Nurse Name: Carine Jimenez RN Position: [facility] SN RN Member Role: Primary Care Nurse Name: Jenelle Campo RN Position: [facility] RN Member Role: Primary Care Nurse Name: Keyla Godwin RN Position: [facility] RN Member Role: Primary Care Nurse Name: Yeimi Devine RN Position: [facility] RN Member Role: Primary Care Nurse Name: Mary Yan RN Position: [facility] RN Member Role: Primary Care Nurse Name: Iliana Pop RN Position: [facility] RN Member Role: Primary Care Nurse Name: Clovis Wang RN Position: [facility] RN Member Role: Primary Care Nurse Name: Alcides Dueñas RN Position: [facility] RN Member Role: Primary Care Nurse Name: Lisa Beatty Position: [facility] Outreach Member Role: Lifetime Consulting Physician Name: Armida Beatty RN Position: [facility] RN Member Role: Primary Care Nurse Name: Deonna Beatty RN Position: [facility] RN Member Role: Primary Care Nurse Name: Roque Villasenor MD Position: [facility] Renal MD Member Role: Lifetime Consulting Physician Address: Address: [address] [place] [address], [address] [facility] [place] [address]- Name: Lashon Lovell RN Position: [facility] SN RN Member Role: Primary Care Nurse Name: Kristi Giraldo RN Position: [facility] RN Supv Member Role: Primary Care Nurse Name: Jerrod Casarez RN Position: [facility] RN Member Role: Primary Care Nurse Name: Shane Riley RN Position: [facility] RN Member Role: Primary Care Nurse Name: Isac Plascencia RN Position: [facility] RN Member Role: Primary Care Nurse Name: Rosalav Martin RN Position: [facility] RN Member Role: Primary Care Nurse Name: Sheela Matt RN Position: [facility] RN Member Role: Primary Care Nurse Name: Armida Ochoa RN Position: [facility] RN Member Role: Primary Care Nurse Name: Felipa Diehl RN Position: [facility] HBO Wound Member Role: Primary Care Nurse Name: Evelin Powell RN Position: [facility] AMB Nurse Member Role: Primary Care Nurse Name: Donald Murphy MD Position: [facility] Renal MD Member Role: Lifetime Consulting Physician Address: Address: [address] [place] [address] [address] [facility] [place] [address]- Name: Pili Kaba RN Position: [facility] ED RN W/OE and Tasks Member Role: Primary Care Nurse Name: Alejandro Yanes RN Position: [facility] RN Member Role: Primary Care Nurse Name: Stacey Díaz RN Position: [facility] SN RN Member Role: Primary Care Nurse Name: Jac Reese RN Position: [facility] RN Member Role: Primary Care Nurse Name: Erica Maya Position: [facility] TA Member Role: Lifetime Consulting Physician Name: Celestine Schwartz RN Position: [facility] RN Member Role: Primary Care Nurse Name: Neeta Carpenter RN Position: [facility] RN Member Role: Primary Care Nurse Name: Susie Estrada RN Position: [facility] RN Member Role: Primary Care Nurse Name: Inna Cantor RN Position: [facility] RN Member Role: Primary Care Nurse Name: Chaparrita Pizano DO Position: [facility] Physician (General Medicine) Member Role: PCP Address: Address: [address] [place] [address]- Name: Ning Rolon RN Position: [facility] RN Member Role: Primary Care Nurse Name: Rubi Carrasco RN Position: [facility] SN RN Member Role: Primary Care Nurse Name: Lauryn Holden RN Position: [facility] RN Member Role: Primary Care Nurse Name: Jones Cervantes RN Position: [facility] RN Member Role: Primary Care Nurse Name: Olivia Caputo RN Position: [facility] RN Member Role: Primary Care Nurse Name: Brooklyn Jim RN Position: [facility] RN Member Role: Primary Care Nurse Name: Kimberly Santoro RN Position: [facility] RN Member Role: Primary Care Nurse Name: Haley Diamond RN Position: [facility] RN Member Role: Primary Care Nurse Name: Ashley Meléndez NP Position: [facility] PCO Associate Professional Member Role: Primary Care Nurse Address: Address: [address] [place] [id number]- Name: Siomara Patricia RN Position: [facility] AMB Nurse Member Role: Primary Care Nurse Name: Neeta Painter RN Position: [facility] RN Member Role: Primary Care Nurse Name: Bailey Espinal RN Position: [facility] AMB Nurse Member Role: Primary Care Nurse Name: Brooklyn Ramsey RN Position: [facility] RN Member Role: Primary Care Nurse Name: Keyla Bright RN Position: [facility] RN Member Role: Primary Care Nurse Name: Beverley Tatum RN Position: [facility] RN Member Role: Primary Care Nurse Name: Mainor Devries RN Position: [facility] RN Member Role: Primary Care Nurse Name: Yarely Richards RN Position: [facility] Hospital Gravel Weigher Member Role: Primary Care Nurse Name: Oralia Massey RN Position: [facility] RN Member Role: Primary Care Nurse Name: Cassie Villanueva RN Position: [facility] RN Member Role: Primary Care Nurse Name: Taiwo Mcgregor RN Position: [facility] RN Member Role: Primary Care Nurse Name: Cally Funes RN Position: [facility] SN RN Member Role: Primary Care Nurse Name: Marina Willard Position: [facility] AMB [place] Member Role: Primary Care Nurse Name: Lisa Blanton RN Position: [facility] Gravel Weigher Member Role: Primary Care Nurse Name: Joel Blanton RN Position: [facility] RN Member Role: Primary Care Nurse Name: Danica Stuart RN Position: [facility] AMB Nurse Member Role: Primary Care Nurse Name: Virginia Bacon RN Position: [facility] RN Member Role: Primary Care Nurse Name: Shruthi Ray RN Position: [facility] Onco RN Member Role: Primary Care Nurse Name: Abbe Choe RN Position: [facility] RN Supv Member Role: Primary Care Nurse Name: Farideh Cat LPN Position: [facility] RN Member Role: Primary Care Nurse Name: Janis Morris RN Position: [facility] Gravel Weigher Member Role: Primary Care Nurse Name: Darrian Chang RN Position: [facility] Gravel Weigher Member Role: Primary Care Nurse Name: Josef Woods RN Position: [facility] RN Member Role: Primary Care Nurse Name: Siomara Raphael RN Position: [facility] RN Member Role: Primary Care Nurse Name: Jerry Mcneill RN Position: [facility] RN Member Role: Primary Care Nurse Care Team Related Persons Name: IVAN VILLASENOR Address: [place] [address] Name: REYNALDO KAUR Address: [address] [place] [address] Name: EMMA SERRANO Address: home [address] [address] Name: PATRICK MATA Address: home [address] [place] [address] Name: FARIDEH POPE Address: [place] [address]
--- OUTSIDE RECORDS SUMMARY | 2022-11-29 17:48 | XMS_ITS | Continuity of Care Document ---
Author Name Unknown Organization [facility] ter Address [address] [place] [address]- Care Team Providers Care Teacher Adventure Education Name Role Phone Jerica Chaparrita DO Primary Care Physician Encounter [facility] Date(s): 11/10/22 - 11/11/[address] [address]- Encounter Diagnosis UTI (urinary tract infection)(Final) - 11/10/22 Discharge Disposition: A-D/C Home Attending Physician: Carter [...] to receive vaccine 2Admin Note: manufactured by [employer] Medications albuterol CFC free 90 mcg/inh inhalation aerosol 2, puffs, Inhalation, 4 times a day, PRN, # 1 each, Refills 6, Tot. Refills 6, Maintenance, 09/30/22 10:30:00 EDT, Aerosol, Route to Pharmacy Electronically, [id number], [facility]/pharmacy #[id number], 155, cm, 09/30/22 9:15:00 EDT, [place]... Start Date: 09/30/22 Status: Ordered bisacodyl 5 mg oral delayed release tablet 1 tablet = 5 mg, By Mouth, Daily, Maintenance, 10/04/18 16:16:38 EDT, EC Tablet Start Date: 10/04/18 Status: Ordered Breo Ellipta 100 mcg-25 mcg/inh inhalation powder 1 puffs, Inhalation, Daily, rinse after each use, # 1 each, 4 Refills, Maintenance, 09/30/22 9:45:00 EDT, Powder, [facility]/pharmacy #[id number], Partial fill upon patient request if the prescription is for a schedule II opioid drug., 1 puffs Inhalation Daily,Ins... Start Date: 09/30/22 Status: Ordered Carafate 1 gm oral tablet 1 Gm, 1, tablet, By Mouth, 3 times a day before meals and bedtime, # 120 tablet, Refills 0, Tot. Refills 0, Maintenance, 03/12/22 12:08:00 EST, Route to Pharmacy Electronically, [facility] [...] mg, Injection, IV Push Slowly, Once, STAT, 11/10/22 19:55:00 EDT, Stop date 11/10/22 19:55:00 EDT Start Date: 11/10/22 Stop Date: 11/10/22 Status: Completed DiphenhydrAMINE See Instructions, 50 mg IV Infusion, [...] 03/09/23 23:00:00 EST, 03/12/22 12:10:00 EST, Patch, [facility], Partial fill upon patient request if... Start Date: 03/12/22 Stop Date: 03/09/23 Status: Ordered Macrobid macrocrystals-monohydrate 100 mg oral capsule 1 capsule = 100 mg, By Mouth, 2 times a day, for 5 days, # 10 capsule, 0 Refills, Acute 11/15/22 22:00:00 EDT, 11/10/22 22:00:00 EDT, Capsule, [facility]/pharmacy #[id number], Partial fill upon patient request ifthe [...] tablet, 0 Refills, Maintenance, 04/02/20 9:29:00 EST, [facility], Partial fill upon patient request if the prescription is for a schedule II opioid drug., 154.94, cm, 04/02/20 8... Start Date: 04/02/20 Status: Ordered oxybutynin 5 mg/5 mL oral syrup 5 mL = 5 mg, By Mouth, 3 times a day, for bladder spasm, # 450 mL, 0 Refills, Maintenance, 06/16/2310:29:00 EDT, Syrup, [facility]/pharmacy #[id number], Partial fill upon patient request if the prescription is for a schedule II opioid drug., 155, cm, 06/16/22 7:2... Start Date: 06/16/22 Status: Ordered oxyCODONE 5 mg oral tablet 5 mg, Tablet, By Mouth, Once, Routine, 11/11/22 0:00:00 EDT, Stop date 11/11/22 0:00:00 EDT Start Date: 11/11/22 Stop Date: 11/10/22 Status: Completed Pantoprazole Inj = 40 mg, IV Infusion, [...] 03/12/22 12:06:00 EST, Route to Pharmacy Electronically, [facility], Partial fill uponpatient request [...] 06/21/18 11:05:15 EDT, Route to Pharmacy Electronically, [id number], [facility] Start Date: 06/21/18 Status: [...] DEPRESSIVE REACTION Confirmed 02/03/07 Active [facility] Team Senior Level Patient Confirmed Active ASTHMA [...] Results Orders for Microbiology Reports Name Date Urine Culture (URINE CULTURE) 11/10/22 Blood Culture 11/10/22 Blood Culture #2 11/10/22 Microbiology Reports TEST:Urine Culture STATUS:Auth (Verified) BODY SITE: SOURCE:URINE COLLECTED DATE/TIME:11/10/22 6:54 PM Urine Culture SPECIMEN DESCRIPTION : URINE SPECIAL REQUESTS : NONE CULTURE : Mixed bacterial raegan, indicative of urogenital contamination. REPORT STATUS : FINAL 11/11/2022 TEST:Blood Culture, Second Order STATUS:Unauthenticated BODY SITE: SOURCE:Blood COLLECTED DATE/TIME:11/10/22 6:25 PM Blood Culture, Second Order SPECIMEN DESCRIPTION : BLOOD L FOREARM SPECIAL REQUESTS : NONE CULTURE : NO GROWTH AFTER 24 HOURS REPORT STATUS : PRELIMINARY REPORT TEST:Blood Culture STATUS:Unauthenticated BODY SITE: SOURCE:Blood COLLECTED DATE/TIME:11/10/22 3:42 PM Blood Culture SPECIMEN DESCRIPTION : BLOOD LAC SPECIAL REQUESTS : NONE CULTURE : NO GROWTH AFTER 24 HOURS REPORT STATUS : PRELIMINARY REPORT Radiology Reports * Exam Date Time Procedure Performing Provider Status 11/10/22 8:[address] Abd/Pelvis W/ IV Contrast Only Stup ak , Twan; Auth (Verified) Notes: (CT Abd/Pelvis W/ IV Contrast Only) Reason For Exam: Pain RESULT: CT Abd/Pelvis W/ IV Contrast Only CT Abd/Pelvis W/ IV Contrast Only Hx of Present Illness: Pt c o weakness and fever over the past few days. States she had visiting RNat home and had UA with leukocytes, bloodwork with low K+. On TPN but is able to take some PO. Has been having increased nausea. Blood sugars are spiking. C o slow speech.; Reason: Pain; Clinical Question(s): Obstruction; Order Comment: TECHNIQUE: Spiral CT through the abdomen and pelvis with IV contrast formatted in 3 planes. 100 cc of Omnipaque 300 was administered intravenously. This study was performed without oral contrast. Weight-based protocol using automatic tube modulation was used to optimize exposure parameters. CTDIvol Body: 25.50 mGy, DLP Body: 1461 mGy*cm. COMPARISON: None. FINDINGS: Pan Washer View Findings, Lines and Tubes: None. Visualized Chest: Bibasilar atelectasis. No pleural effusion. The heart is normal in size. No pericardial effusion. Diaphragm: Normal. Liver: Normal. Gallbladder: Absent consistent with prior cholecystectomy. Bile ducts: No biliary ductal dilation. Spleen: Normal. Pancreas: Normal. Adrenal glands: Normal. Kidneys and ureters: No hydronephrosis, stones, or suspicious masses. Bladder: Normal. Reproductive organs: Status post hysterectomy. Stomach, small bowel, and large bowel: Moderate amount of stool throughout colon. Status post colonic anastomosis in the region of the sigmoid colon. Appendix: Normal. Peritoneum and retroperitoneum: No ascites or pneumoperitoneum. No omental or mesenteric lesions. Lymph nodes: No enlarged lymph nodes. Blood vessels: Normal. No aneurysm. No evidence of venous thrombosis. Abdominal and pelvic wall: Patient status post anterior lower abdominal and pelvic wall hernia repair with placement of a mesh. Bones: Degenerative disease throughout the lumbar spine with facet degenerative changes. IMPRESSION: No significant abnormality visualized. WSN: [id number] Ordering Physician: Bailey Patten Dictated By: Josiane Acosta MD Dictated Date/Time: 11/10/22 9:20 pm Reviewed By: Josiane Acosta MD Signed By: Josiane Acosta MD Signed Date/Time: 11/10/22 9:20 pm Transcribed By: DEIDRE Transcribed Date/Time: 11/10/22 9:13 pm Vital Signs Most recent to oldest [Reference Range]: 1 2 3 Height 155 cm (11/10/22 6:44 PM) 155 cm (11/10/22 2:22 PM) 155 cm (11/10/22 1:25 PM) Weight 125 kg (11/10/22 6:44 PM) Oxygen Saturation [94-100 %] 98 % (11/10/22 11:12 PM) 100 % (11/10/22 6:44 PM) 99 % (11/10/22 6:14 PM) Pulse Rate [55-90 bpm] 72 bpm (11/10/22 11:12 PM) 77 bpm (11/10/22 6:44 PM) 86 bpm (11/10/22 6:14 PM) Body Mass Index [18.5-24.99 kg/m2] 52.03 kg/m2 *>HHI* (11/10/22 6:44 PM) Blood Pressure [90-138/55-84 mm Hg] 121/80mm Hg (11/10/22 11:12 PM) 141/89mm Hg *H* (11/10/22 6:44 PM) 131/78mm Hg (11/10/22 6:14 PM) Respiratory Rate [16-30 br/min] 20 br/min (11/10/22 11:45 PM) 18 br/min (11/10/22 11:12 PM) 20 br/min (11/10/22 7:59 PM) Temperature [96.8-100.4 DegF] 98.2 DegF (11/10/22 6:44 PM) 98 DegF (11/10/22 6:14 PM) 98 DegF (11/10/22 4:43 PM) Mode of Delivery (Oxygen) Room air (11/10/22 11:12 PM) Room air (11/10/22 6:44 PM) Room air (11/10/22 6:14 PM) Blood pressure sites Arm, left (11/10/22 6:44 PM) Arm, left (11/10/22 6:14 PM) Arm, left (11/10/22 4:43 PM) Temperature Route Oral (11/10/22 6:44 PM) Oral (11/10/22 6:14 PM) Oral (11/10/22 4:43 PM) Dry Weight 125 kg (11/10/22 6:44 PM) 125 kg (11/10/22 2:22 PM) 125 kg (11/10/22 1:25 PM) Social History Social History Type Response Smoking Status Former smoker, quit more than 30 days ago;Never; Type: Cigarettes; Exposure to Secondhand Smoke: Yes; Previous treatment: None; Tobacco use times per day: 1/2 pack per day; quit 04/20/2015; Number of years: 10; entered on: 09/30/22 Sex EKG study * Event Display: EKG Authored Date: * Event Display: ECG 12-Lead Authored Date: Please click on pdf link to open report * Event Display: ECG 12-Lead Authored Date: Ventricular Rate: 82 BPM Atrial Rate: 82 BPM P-R Interval: 148 ms QRS Duration: 90 ms Q-T Interval: 366 ms QTC Calculation(Bazett): 427 ms P Candia: 17 degrees R Candia: -13 degrees T Candia: -6 degrees Normal sinus rhythm Possible Anterolateral infarct , age undetermined Abnormal ECG When compared with ECG of 08-SEP-2022 13:56, No significant change was found Confirmed by JACKIE MEJÍA MD ([id number]) on 11/10/2022 3:06:06 PM [place]: JACKIE MEJÍA MD Note * Bailey Patten DO: PERFORM Event Display: Patient Education Leaflets Authored Date: Urinary Tract Infections in Women ?? [id number] Urinary Tract Infections in Women Urinary tract infections (UTIs) are most often caused by bacteria. These bacteria enter the urinarytract. The bacteria may come from inside the body. Or they may travel from the skin outside the rectum or vagina into the urethra. Female anatomy makes it easy for bacteria from the bowel to enter a woman???s urinary tract. This is the most common source of UTI. This means women develop UTIs more often than men. Pain in or around the urinary tract is a common UTI symptom. Most UTIs are treated with antibiotics. These kill the bacteria. The length of time you need to take them depends on the type of infection. It may be as short as 3 days. If you have repeated UTIs, you may need a low-dose antibiotic for several months. Take antibiotics exactly as directed. Don???t stop taking them until all of the medicine is gone. If you stop taking the antibiotic too soon, the infection may not go away. You may also develop a resistance to the antibiotic. This can make it muchharder to treat in the future. Gender words are used here to talk about anatomy and health risk. Please use this information in a way that works best for you and your provider as you talk about your care. Home care The lifestyle changes below will help get rid of your UTI. They may also help prevent future UTIs: ??? Drink plenty of fluids. This includes water, juice, or other caffeine-free drinks. Fluids help flush bacteria out of your body. ??? Empty your bladder. Always empty your bladder when you feel the urge to pee. And always pee before going to sleep. Urine that stays in your bladder can lead to infection. Try to pee before and after sex as well. ??? Practice good personal hygiene. Wipe yourself from front to back after using the toilet. This helps keep bacteria from getting into the urethra. ???Use condoms during sex. These help prevent UTIs caused by sexually transmitted bacteria. Also don'tuse spermicides during sex. These can increase the risk for UTIs. Choose other forms of control instead. For women who tend to get UTIs after sex, a low dose of a preventive antibiotic may be used. Be sure to discuss this choice with your healthcare provider. ??? Try holistic supplements, such as cranberry tablets and D-mannose. These may help prevent UTIs. ??? Try topical vaginal estrogen.You can use this to help prevent UTIs if you have gone through menopause. ?? Follow-up care Follow up with your healthcare provider as directed. They may test to make sure the infection has cleared. If needed, more treatment may be started. ?? When to get medical advice Call your healthcare provider right away if any of the following occur: ??? Frequent urination ??? Pain or burning when passing urine ??? Fever of 100.4??F (38??C) or higher, or as directed by your healthcare provider ??? Urine looks dark, cloudy, or reddish in color. This may mean that blood is inthe urine. ??? Urine smells bad ??? Feeling pain even when not urinating ??? Tiredness ??? Pain in the belly (abdomen) area below the bellybutton, or in the back or side, below the ribs ??? Nausea orvomiting ??? Have a strong urge to urinate, but only a small amount of urine is passed ??? Uncomfortable pressure above the pubic bone ??? Feeling confused or very tired (in older adults) ?? Last Reviewed Date: 2022 ?? [employer]. All rights reserved. This information is not [...] Primary Care Nurse Name: Lisa Beatty Position: S Outreach Member Role: Lifetime Consulting Physician Name: Armida Beatty RN Position: [facility] RN Member Role: Primary Care Nurse Name: Deonna Beatty RN Position: [facility] RN Member Role: Primary Care Nurse Name: Roque Villasenor MD Position: [facility] Renal MD Member Role: Lifetime Consulting Physician Address: Address: [address] [place] [address], [address] [facility] [place] [place] [address]- [place] Name: Lashon Lovell RN Position: [facility] [...] Role: Lifetime Consulting Physician Address: Address: [address] [place], [place] [address] [place] [address]- [place] Name: Pili Kaba RN Position: [facility] RN Member Role: Primary Care Nurse Name: Alejandro Yanes RN Position: [facility] RN Member Role: Primary Care Nurse Name: Stacey Díaz RN Position: [facility] ED RN W/OE and Tasks Member Role: Primary Care Nurse Name: Jac Reese RN Position: [facility] RN Member Role: Primary Care Nurse Name: Gillian Olsen RN Position: [facility] RN Member Role: [...] (General Medicine) Member Role: PCP Address: Address: [address] [place] [address] [place] [address]- [place] Name: Ning Rolon RN Position: [facility] [...] Role: Primary Care Nurse Address: Address: [address] [place] [address] [address] [facility] [place], [place] [address] Name: Siomara Patricia RN Position: [facility] Nurse Member Role: Primary Care Nurse Name: Neeta Painter RN Position: [facility] RN Member Role: Primary Care Nurse Name: Edith Drummond RN Position: [facility] SN RN Member Role: Primary Care Nurse Name: Rosalva Fabian RN Position: [facility] RN Member Role: Primary Care Nurse Name: Bailey Espinal RN Position: [facility] Nurse Member Role: Primary Care [...] Care Nurse Name: Yarely Richards RN Position: [facility] Research Nutritionist Member Role: Primary Care Nurse Name: Oralia Massey RN Position: [facility] RN Member Role: Primary Care Nurse Name: Cassie Villanueva RN Position: [facility] RN Member Role: Primary Care Nurse Name: Taiwo Mcgregor RN Position: [facility] RN Member Role: Primary Care Nurse Name: Cally Funes RN Position: [facility] SN RN Member Role: Primary Care Nurse Name: Marina Willard Position: [facility] AMB [place] Member Role: Primary Care Nurse Name: Lisa Blanton RN Position: [facility] Research Nutritionist Member Role: Primary Care Nurse Name: Joel [...] Morris RN Position: [facility] Research Nutritionist Member Role: Primary Care Nurse Name: Darrian Chang RN Position: [facility] Research Nutritionist Member Role: Primary Care Nurse Name: Josef Woods RN Position: [facility] RN Member Role: Primary Care Nurse Name: Siomara Raphael RN Position: [facility] RN Member Role: Primary Care Nurse Name: Jerry Mcneill RN Position: [facility] RN Member Role: Primary Care Nurse Name: Carter Jacobo MD Position: [facility] ED Medicine MD Member Role: ED Attending Physician Address: Address: [address] [place] [address]- Name: Nelly Peterson Position: [facility] ED TA [facility] Name: Gil Cagle RN Position: [facility] ED RN W/OE and Tasks Member Role: Patient Care Provider Name: Bailey Patten DO Position: [facility] Resident Member Role: Resident Address: Address: [address] [place] [address] [place] [address]- Care Team Related Persons Name: IVAN VILLASENOR Address: [place] [address] Name: REYNALDO KAUR Address: home [address] [place] [address] Name: EMMA SERRANO Address: home [address] [address] Name: PATRICK MATA Address: home [address] [place] [address] Name: FARIDEH POPE Address: [place] [address]
== END 2022-11-29 18:05 | disposition home or self-care (01) ==
PROVIDERS: Physician Assistant; Emergency Provider Internal Medicine; PCP Internal Medicine
DX: G89.29 Other chronic pain (principal); R06.02 Shortness of breath; R10.11 Right upper quadrant pain; E11.9 Type 2 diabetes mellitus without complications; Z79.899 Other long term (current) drug therapy; Z79.4 Long term (current) use of insulin
CPT/HCPCS: 36415; 71046; 76705; 80053; 81003; 83690; 84702; 85025; 85610; 85730; 96372; 99283; 99284; J1170

== ENCOUNTER 2022-12-30 10:39 | Outpatient (AMB) | payer MEDICARE, SELFPAY ==
--- NOTE | 2022-12-30 10:40 | MHC.OFFVIS ---
Intake Vital Signs 12/30/22 10:44 Height 5 ft 1 in Weight 270 lb BMI 51.0 BP 153/72 H Blood Pressure Location Rt brachial Position Sitting Pulse 105 H Pulse Source Pulse Oximeter Pulse Oximetry (%) 95 Oxygen Delivery Method Room Air Intake Visit Reasons: ITDD Pain Pump Discussion (LETTY:06/26/20 w/ Dr. 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 Accompanied by: Self / Same As Patient Allergies fentanyl [FENTANYL] Allergy (Severe, Verified 12/30/22 10:45) LETHARGY iodine [IODINE] Allergy (Severe, Verified 12/30/22 10:45) HIVES latex [LATEX] Allergy (Severe, Verified 12/30/22 10:45) HIVES levofloxacin [From LEVAQUIN] Allergy (Severe, Verified 12/30/22 10:45) MOUTH SWELLING Penicillins [PENICILLINS] Allergy (Severe, Verified 12/30/22 10:45) SWELLING, ITCHY shellfish derived Allergy (Severe, Verified 12/30/22 10:45) SWELLING acetaminophen [From TYLENOL] Allergy (Intermediate, Verified 12/30/22 10:45) HIVES doxycycline [DOXYCYCLINE] Allergy (Intermediate, Verified 12/30/22 10:45) SWELLING nicotine [NICOTINE] Allergy (Intermediate, Verified 12/30/22 10:45) SWELLING pregabalin [From LYRICA] Allergy (Intermediate, Verified 12/30/22 10:45) LETHARGY, LOW BP, SWELLING amoxicillin Allergy (Unknown, Verified 12/30/22 10:45) unknown ceftriaxone Allergy (Unknown, Verified 12/30/22 10:45) unknown clarithromycin [Omeclamox-Juan A] Allergy (Unknown, Verified 12/30/22 10:45) unknown esomeprazole [Nexium] Allergy (Unknown, Verified 12/30/22 10:45) unknown famotidine [FAMOTIDINE] Allergy (Unknown, Verified 12/30/22 10:45) UNKNOWN, anaphylaxis Iodinated Contrast Media [IV DYE, IODINE CONTAINING CONTRAST ] Allergy (Unknown, Verified 12/30/22 10:45) UNKNOWN metoclopramide [Reglan] Allergy (Unknown, Verified 12/30/22 10:45) unknown morphine [MORPHINE] Allergy (Unknown, Verified 12/30/22 10:45) ANGIOEDEMA omeprazole [Omeclamox-Juan A] Allergy (Unknown, Verified 12/30/22 10:45) unknown ondansetron [Zofran] Allergy (Unknown, Verified 12/30/22 10:45) unknown penicillin V Allergy (Unknown, Verified 12/30/22 10:45) unknown From BUSPAR Allergy (Intermediate, Uncoded 08/30/22 18:24) RASH From ZOFRAN Allergy (Intermediate, Uncoded 08/30/22 18:24) HIVES Compazine Allergy (Unknown, Uncoded 08/30/22 18:24) unknown From Nexium Allergy (Unknown, Uncoded 08/30/22 18:24) UNKNOWN IV contrast dye Allergy (Unknown, Uncoded 08/30/22 18:24) unknown latex Allergy (Unknown, Uncoded 08/30/22 18:24) unknown From COMPAZINE Adverse Reaction (Intermediate, Uncoded 08/30/22 18:24) ANXIETY From REGLAN Adverse Reaction (Intermediate, Uncoded 08/30/22 18:24) ANXIETY HPI HPI Comments History of Present Illness Details Patient is a pleasant 47 years old morbidly obese female with chronic pain syndrome presents today to discuss ITDD trial and implant options. She was previously seen in our office by Dr. Chavez as noted below. Patient reports ongoing bowel issues, including malabsorption and short gut syndrome since exploratory laparoscopy on her uterus followed by partial colectomy in 2005 at [facility]. She has been on TPN for 1.5 years via dual Polanco port with weekly VNA visitation for dressing changes and lab draws. Patient provides herself Magnesium and TPN infusion. She had discussion with her surgeon to undergo additional abdominal surgery. She is currently managing her pain with Dilaudid 4 mg liquid Q6H prn and Fentanyl 25 mcg patch prescribed by her PCP. We discussed ITDD trial and implant therapy in greater details today. Patient is aware she would be holding opiods for 24 hours for ITDD trial and 60 days for ITDD implant. This is concerning to her as she is in daily chronic pain. Patient will also will need to undergo Behavioral evaluation which she previously did not pass through [facility]. Patient would like to discuss intrathecal pain pump with her family notify our office with her decision. PRIOR 06/26/20 Dr. Chavez: Triny Brown is a very pleasant 44 y.o. female who is in my office today with complaints on mostly lower back pain And cervicalgia . Pain radiates on the left to the left hip, left thigh, left lower leg and into the left foot. She denies radiation into the toes. She is on chronic opioid therapy she is taking 20 mg of oxycodone 4 times a day and it was prescribed to her by oncologist/gynicologist. she has endometriosis and ovarian cysts she is suffering lower abdominal pain as well. Her oncologist contacted me and discussed the possibility of treating this patient by tapering down her opioid medications. This patient came today in my office to find out whether or not we can prescribe the opioids at all in this office for her. PHQ score was evaluated for this patient. It was equal to 18. Her opioid addiction risk score is equal to 23. Her total score therefore is 41. She is very high risk for opioid addiction. This office does not prescribe opioid medication to patients with this high level of the risk. We discussed situation at hands. I expressed my sincere apologies for the entire process of making her a member of the opioid program, with urine drug screen as well as questionares were performed. I offered her for the options for the treatment. I told her that since high risk of addiction exist treatment of Suboxone could be offered to her however she does not want to be on Suboxone. Also she can go into the community for methadone program, unfortunately she does not want to be on methadone. We also discussed possibility of treatment of her pain with something of nonopioid nature. I explained her about Prialt, I also explained her about Nevro spinal cord stimulator very briefly. All of those modes are available if the yellow flag the [facility] gave us for the treatment with neuromodulation will be lifted after the conversation with her psychologist and psychiatrist. Currently I cannot schedule any follow-up appointment with this patient because within the boundaries of our opioid program I will not be able to prescribe her opioids. Of note the UDS she went for on June 12/2021 was negative for any opioids, while she according to [facility] on 06/09/2020 she received a full script from her provider - Dr. Hankins. Therefore issue of diversion cannot be excluded. She has multiple bowel problems. He is on continuous TPN treatment. In her situation oral opioid therapy is relatively contraindicated. She was interested with treating her pain with intrathecal pain pump. Unfortunately her psychological evaluation gave us yellow flag. She needs to go back to her psychologist and psychiatrist and get them into contact with [facility] for further treatment of this patient. If she will improve and yellow flag will be lifted the trial of intrathecal pain pump will be scheduled for her. H/o treatment in [facility] and [facility]. She reports that treatment consisted of multiple medication administration including oxycodone and OxyContin administration of multiple sessions of physical therapy massage therapy and acupuncture. Nothing helps her pain. She received nerve blocks , epidural steroid injections sacroiliac joint injections and at the beginning those injections were helping her however with time effectiveness of those injections faded a and she stopped doing those injections. She was subject of three trials of spinal cord stimulation. She reports that none of them were helping her pain. She had an implant of spinal cord stimulator which eventually was removed in 2013. That was not compatible with MRI spinal cord stimulator and she need to go for MRI and that is why the spinal cord stimulator was removed. She had minimal information about intrathecal drug delivery system pain pump however she did not know what is in details. Her past medical history significant for hypertension fatigue dizziness and fainting history of root medius history of asthma history of kidney stones diabetes arthritis and ovarian cyst She had partial hysterectomy in 2006. She reports no smoking cigarettes no drinking alcohol and no recreational drugs she reports she drinks caffeinated beverages. [facility] Medical History Chronic pain syndrome Chronic pelvic pain in female Chronic abdominal pain Morbid obesity Spondylosis of lumbosacral spine with radiculopathy Disc degeneration, lumbar Sacroiliitis Review of Systems Const All systems reviewed & are unremarkable except as noted in HPI and below Physical Exam Vital Signs: Last Vital Signs Pulse 105 H 12/30/22 10:44 BP 153/72 H 12/30/22 10:44 Pulse Ox 95 12/30/22 10:44 Oxygen Delivery Method Room Air 12/30/22 10:44 BMI result Body Mass Index 51.0 General: Appears afebrile. Alert and oriented. Mood and affect appropriate. Follows and participates in conversation appropriately. Respiratory effort is unlabored. No cough. Able to transition from sit to stand unassisted. Ambulates with bilaterally normal heel strike and toe off. Chest Other: Dual Polanco port-cath intact, dressing dry and intact, ports clamped. No pathologic discharge, tenderness or swelling. Back/Spine/Pelvis Cervical Spine: cervical muscular tenderness, pain with cervical ROM and No Cervical spine tenderness Thoracic/Lumbar Spine: thoracic and lumbar spine normal to inspection, Lasegue's sign negative, straight leg raise negative bilaterally, pain with thoraco-lumbar ROM, paraspinal muscle tenderness, thoraco-lumbar ROM limited, No thoracic spinal tenderness and lumbar spinal tenderness at L4 and at L5 Sacroiliac joints: bilaterally tender to palpation Results Reviewed Results Reviewed: Lumbar spine alignment is preserved. The vertebral body heights are unremarkable. Similar to the prior examination there is a Schmorl node in superior endplate of T12 vertebra with progressed Modic type 1 endplate marrow changes. The bone marrow signal is otherwise normal conus terminates at L1-L2. Paraspinal soft tissue visualized retroperitoneum unremarkable. Increased T12 STIR hyperintensity in the posterior subcutaneous soft tissue most consistent with dependent edema. T12-L1 mild central disc protrusion without spinal canal or foraminal stenosis L1-L2 no spinal canal or foraminal stenosis. Disc preserved. L2-L3 mild right foraminal disc protrusion contacting the right L2 exiting nerve root. No significant left foraminal stenosis. No spinal canal stenosis mild right foraminal stenosis ligamentum flavum thickening and facet joint arthropathy. L3-L4 mild diffuse disc bulge posterior endplate spurs facet joint arthropathy ligamentum flavum thickening. This finding results in flattening of the ventral aspect of thecal sac and mild narrowing of the left subarticular zone stable. No central canal stenosis. Mild to moderate bilateral foraminal stenosis with bilateral L3 exiting nerve roots contacting the bulging disc within the foramina. L4-5 mild diffuse disc bulge. Ligamentum flavum thickening and facet joint arthropathy. Flattening of the ventral aspect of the thecal sac and moderate narrowing of the right subarticular zone with possible compromise of the right L5 traversing nerve roots. There is no spinal canal stenosis. There is mild bilateral foraminal stenosis with bilateral L4 exiting nerve roots contacting the bulging discs within the foramina L5-S1 there is a mild diffuse disc bulge, ligamentum flavum thickening, posterior endplate spurs, and facet joint arthropathy resulting in moderate left and mild right foraminal stenosis. There is no spinal canal stenosis. Assessment & Plan Assessment & Plan (1) Chronic pain syndrome: Code(s): G89.4 - Chronic pain syndrome (2) Morbid obesity: Code(s): E66.01 - Morbid (severe) obesity due to excess calories (3) Disc degeneration, lumbar: Code(s): M51.36 - Other intervertebral disc degeneration, lumbar region (4) Sacroiliitis: Code(s): M46.1 - Sacroiliitis, not elsewhere classified (5) Chronic, continuous use of opioids: Code(s): - Opioid use, unspecified, uncomplicated (6) Lumbosacral spondylosis with complication: Code(s): M47.817 - Spondylosis without myelopathy or radiculopathy, lumbosacral region Plan Placed referral for psychology clearance in anticipation of ITDD trial with Dilaudid. Extensive discussion regarding the risks and benefits of ITDD trial and implant procedures and all questions were answered to patient satisfaction. Informational brochures have been provided to patient. Patient is aware she would have to hold opioids for 24 hours for ITDD trial and 60 days for ITDD implant. Currently, she is taking Dilaudid 4 mg liquid Q6H prn and Fentanyl 25 mcg patch Q72H prescribed by her PCP. Script for Narcan provided to patient today. Follow up after behavioral evaluation and sooner as needed. Medications: New naloxone 4 mg/actuation (Narcan) spray 1 dose into ONE nostril; alternate nostrils w each dose until help arrives 4 mg intranasal Q2M PRN 1 ea 0RF opioid overdose F1 - Opioid use, unspecified, uncomplicated, G89.4 - Chronic pain syndrome Coding Level of Care Code Est Pt Level 4 (75541) Diagnoses Chronic pain syndrome G89.4 Morbid obesity E66.01 Disc degeneration, lumbar M51.36 Sacroiliitis M46.1 Chronic, continuous use of opioids Lumbosacral spondylosis with complication M47.817
[2022-12-30 10:44] VITALS: BP 153/72; PULSE 105; O2SAT 95; BMI 51.0
== END 2022-12-30 11:11 | disposition home or self-care (01) ==
PROVIDERS: PCP Internal Medicine; Visit Provider Nurse Practitioner Family
DX: G89.4 Chronic pain syndrome (principal); E66.01 Morbid (severe) obesity due to excess calories; M51.36 Other intervertebral disc degeneration, lumbar region; M46.1 Sacroiliitis, not elsewhere classified; Z79.891 Long term (current) use of opiate analgesic; M47.817 Spondylosis without myelopathy or radiculopathy, lumbosacral region
CPT/HCPCS: 99214

== ENCOUNTER → 2022-12-30 10:39 | Outpatient (BNVA) | payer MEDICARE, SELFPAY | PROVIDERS: PCP Internal Medicine; Visit Provider Nurse Practitioner Family | DX: M51.36 Other intervertebral disc degeneration, lumbar region (principal); M46.1 Sacroiliitis, not elsewhere classified; M47.817 Spondylosis without myelopathy or radiculopathy, lumbosacral region; G89.4 Chronic pain syndrome; E66.01 Morbid (severe) obesity due to excess calories; F11.20 Opioid dependence, uncomplicated; Z68.43 Body mass index [BMI] 50.0-59.9, adult | CPT/HCPCS: 99212 ==